=== PATIENT | female | born 1975 | race Caucasian/White ===

== ENCOUNTER → 2016-08-16 | Outpatient (CLI) | payer OTHER ==
--- NOTE | 2016-08-16 16:22 | XR ---
EXAMINATION TYPE: XR knee limited bilateral DATE OF EXAM: 08/16/2016 4:17 PM CLINICAL HISTORY: Bilateral knee pain TECHNIQUE: Three views of the bilateral knees are obtained. COMPARISON: None. FINDINGS: There is no acute fracture/dislocation evident in either knee. The tri-compartment joint spaces appear within normal limits bilaterally. The overlying soft tissue appears unremarkable bilat erally. IMPRESSION: Unremarkable study.
[2016-08-16 16:52] LABS: ALT 31 U/L (9-52); AST 21 U/L (14-36); Alkaline Phosphatase 120 U/L (38-126); Anion Gap 10 mmol/L; Blood Urea Nitrogen 7 mg/dL (7-17); Calcium 9.3 mg/dL (8.4-10.2); Carbon Dioxide 27 mmol/L (22-30); Chloride 107 mmol/L (98-107); Glucose 77 mg/dL (74-99); Non-African American GFR(MDRD) >60 (>60 ml/min/1.73 sqM); Potassium 3.6 mmol/L (3.5-5.1); Sodium 144 mmol/L (137-145); Total Bilirubin 0.4 mg/dL (0.2-1.3); Total Protein 7.1 g/dL (6.3-8.2)
[2016-08-16 16:52] LABS: Blood Urea Nitrogen 7 mg/dL (7-17); Non-African American GFR(MDRD) >60 (>60 ml/min/1.73 sqM)
[2016-08-16 16:55] LABS: Rheumatoid Factor, Qnt <9 IU/mL (<12)
[2016-08-16 16:59] LABS: Basophils # (A) 0.1 k/uL (0-0.2); Basophils % (A) 1 %; CH 30.3; CHCM 33.2; Eosinophils # (A) 0.4 k/uL (0-0.7); Eosinophils % (A) 2 %; HCT 44.5 % (34.0-46.0); HDW 2.31; HGB 14.7 gm/dL (11.4-16.0); Luc # (Auto) 0.19; Luc % (Auto) 1; Lymphocytes % (A) 25 %; MCH 30.2 pg (25.0-35.0); MCHC 32.9 g/dL (31.0-37.0); MCV 91.6 fL (80.0-100.0); Mean Platelet Volume 6.8; Monocytes # (A) 0.7 k/uL (0-1.0); Monocytes % (A) 4 %; Neutrophils # (A) 10.9 k/uL (1.3-7.7); Neutrophils % (A) 67 %; RBC 4.86 m/uL (3.80-5.40); RDW 13.2 % (11.5-15.5); WBC 16.2 k/uL (3.8-10.6); WBC (Perox) 16.54
--- NOTE | 2016-08-16 19:24 | MR ---
EXAMINATION TYPE: MR brain wo con DATE OF EXAM: 08/16/2016 5:48 PM COMPARISON: NONE HISTORY: Migraines, dizziness Multiplanar and multispin-echo imaging of the brain was performed . The ventricles, basal cisterns and sulci overlying the cerebral convexities are within normal limits. There is no evidence for midline shift or mass effect. Acute intracranial hemorrhage or extra-axial collection is not evident. Noted are 5 or 6 small foci of increased signal within the deep white matter of both cerebral hemisph eres too small to characterize. Differential diagnostic possibilities include chronic small vessel is chemia, demyelination, sequela of chronic migraine headaches, Lyme's disease and vasculitis. No acute edema is identified. The paranasal sinuses and mastoid air cells are well-aerated. Polyp or mucous retention cyst right ma xillary sinus. IMPRESSION: Scattered nonspecific foci of increased signal within the deep white matter of both cerebral hemisphe res as noted above.
--- NOTE | 2016-08-16 19:30 | MR ---
EXAMINATION TYPE: MR [place] wo con DATE OF EXAM: 08/16/2016 5:53 PM COMPARISON: 10/08/2011 HISTORY: Migraines, dizziness, neck pain, LBP Multiplanar MultiSpin echo imaging of the cervical spine was performed. Comparison: none C2-C3: No evidence for degenerative disc disease. No disc bulge/herniation or protrusion. No Canal stenosis. Foramina are patent bilaterally. C3-C4: No evidence for degenerative disc disease. No disc bulge/herniation or protrusion. No Canal stenosis. Foramina are patent bilaterally. C4-C5: No evidence for degenerative disc disease. No disc bulge/herniation or protrusion. No Canal stenosis. Foramina are patent bilaterally. C5-C6: No evidence for degenerative disc disease. No disc bulge/herniation or protrusion. No Canal stenosis. Foramina are patent bilaterally. C6-C7: No evidence for degenerative disc disease. No disc bulge/herniation or protrusion. No Canal stenosis. Foramina are patent bilaterally. C7-T1: No evidence for degenerative disc disease. No disc bulge/herniation or protrusion. No Canal stenosis. Foramina are patent bilaterally. Cervical segments are intact. There is normal alignment. Cervical spinal cord is of normal signal. Craniovertebral junction relationships are within normal limits. IMPRESSION: 1. No significant abnormality identified EXAMINATION TYPE: MR aniceto becker con DATE OF EXAM: 08/16/2016 5:53 PM COMPARISON: NONE HISTORY: Migraines, dizziness, neck pain, LBP Multiplanar, MultiSpin echo imaging of the lumbar spine was performed. L1-L2: Normal disc appearance without desiccation. No herniation, protrusion or disc bulging. No ca nal stenosis is present. Foramina are patent bilaterally. L2-L3: Normal disc appearance without desiccation. No herniation, protrusion or disc bulging. No ca nal stenosis is present. Foramina are patent bilaterally. L3-L4: Normal disc appearance without desiccation. No herniation, protrusion or disc bulging. No ca nal stenosis is present. Foramina are patent bilaterally. L4-L5: Moderate disc desiccation noted. Posterior central disc protrusion new from prior examination. Mild effacement ventral thecal sac. No evidence for central stenosis or lateral recess stenosis. L5-S1: Mild disc desiccation. Small right paracentral disc protrusion mildly effaces the ventral thec al sac. No evidence for lateral recess stenosis or central stenosis. Foramina are patent bilaterally. Lumbar segments are intact. No paraspinal masses are identified. Conus medullaris has a normal appe arance. IMPRESSION: 1. Posterocentral disc protrusion at L4-5 disc desiccation noted. 2. Small right paracentral disc protrusion at L5-S1.
== END | disposition home or self-care (01) ==
LOC: RADMRIMAIN 15:52
PROVIDERS: ATTEND Nurse Practitioner Acute Care
DX: M51.27 Other intervertebral disc displacement, lumbosacral region (principal); M54.2 Cervicalgia; R90.82 White matter disease, unspecified; M25.561 Pain in right knee; M25.562 Pain in left knee; M13.0 Polyarthritis, unspecified
CPT/HCPCS: 70551; 72141; 72148; 80053; 82565; 84520; 85025; 86038; 86431

== ENCOUNTER 2016-10-17 15:52 | Emergency (ER) | payer OTHER ==
[2016-10-17] MEDS ORDERED: KETOROLAC 60 MG/2 ML VIAL IM STA (17:04)
[2016-10-17] MEDS ORDERED: ORPHENADRINE 30 MG/ML 2 ML VIAL IM STA (17:04)
--- NOTE | 2016-10-17 17:10 | ED ---
Back Pain HPI - General Chief Complaint: Back Pain/Injury Stated Complaint: back pain Time Seen by Provider: 10/17/16 16:57 Source: patient, RN notes reviewed, old records reviewed Limitations: no limitations - History of Present Illness Initial Comments: 41-year-old female presents the ED chief complaint of left hip pain. Reports that nothing going on for the past 3 days. She denies any specific injury to cause this pain. She reports she does have a history of previous lumbar disc disease. She denies any recent falls. She denies any saddle anesthesias. She reports the pain radiates from her lower back to the left hip. Denies any numbness or tingling down her feet or legs. Denies any posterior calf pain or any pain with flexion and extension of the knee or ankle or foot.Patient denies any recent fever, chills, shortness of breath, chest pain, back pain, abdominal pain, nausea vomiting, numbness or tingling, dysuria or hematuria, constipation or diarrhea, headaches or visual changes, or any other current symptoms - Related Data Home Medications Medication Instructions Recorded Confirmed Furosemide [Lasix] 20 mg PO DAILY 01/05/14 10/17/16 Levothyroxine Sodium [Synthroid] 50 mcg PO QAM 01/05/14 10/17/16 Albuterol Inhaler [Ventolin 1 - 2 puff INHALATION RT-QID PRN 08/20/14 10/17/16 Inhaler] Potassium Chloride [Klor-Con 10] 10 meq PO DAILY 08/20/14 10/17/16 Calcium Carbonate [Calcium] 600 mg PO HS 10/17/16 10/17/16 Cetirizine HCl [Zyrtec] 10 mg PO DAILY 10/17/16 10/17/16 Hydrocodone/Acetaminophen [[place] 1 tab PO Q8H PRN 10/17/16 10/17/16 10-325] Ibuprofen [Motrin] 800 mg PO Q8H PRN 10/17/16 10/17/16 Montelukast [Singulair] 10 mg PO HS 10/17/16 10/17/16 Umeclidinium Brm/Vilanterol Tr 1 puff INHALATION RT-DAILY 10/17/16 10/17/16 [Anoro Ellipta 62.5-25 Mcg INH] buPROPion HCL [Wellbutrin XL] 150 mg PO DAILY 10/17/16 10/17/16 Previous Rx's Medication Instructions Recorded Baclofen [Lioresal] 10 mg PO TID #15 tablet 10/17/16 Ibuprofen [Motrin] 600 mg PO Q8HR PRN #30 tab 10/17/16 Allergies Allergy/AdvReac Type Severity Reaction Status Date / Time nitrofurantoin Allergy Rash/Hives Verified 10/17/16 17:09 [From Macrobid] nitrofurantoin Allergy Rash/Hives Verified 10/17/16 17:09 macrocrystalline [From Macrobid] seasonal allergies AdvReac Unknown Uncoded 10/17/16 16:05 Review of Systems ROS Statement: Those systems with pertinent positive or pertinent negative responses have been documented in the HPI. ROS Other: All systems not noted in ROS Statement are negative. 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 MOS,ENDOMETRIOSIS History of Any Multi-Drug Resistant Organisms: None Reported Past Surgical History: Tubal Ligation Additional Past Surgical History / Comment(s): leep,ENDOSCOPY Past Anesthesia/Blood Transfusion Reactions: Motion Sickness Past Psychological History: Anxiety Smoking Status: Current every day smoker Past Alcohol Use History: Occasional Past Drug Use History: None Reported - Past Family History Father Family Medical History: Congestive Heart Failure (CHF), COPD Additional Family Medical History / Comment(s): from heart attack Mother Family Medical History: Cancer, COPD Additional Family Medical History / Comment(s): breast cancer General Exam - General Exam Comments Initial Comments: 41-year-old female. No acute distress. Limitations: no limitations General appearance: alert, in no apparent distress Head exam: Present: atraumatic, normocephalic, normal inspection Eye exam: Present: normal appearance, PERRL, EOMI. Absent: scleral icterus, conjunctival injection, periorbital swelling ENT exam: Present: normal exam, mucous membranes moist Neck exam: Present: normal inspection. Absent: tenderness, meningismus, lymphadenopathy Respiratory exam: Present: normal lung sounds bilaterally. Absent: respiratory distress, wheezes, rales, rhonchi, stridor Cardiovascular Exam: Present: regular rate, normal rhythm, normal heart sounds. Absent: systolic murmur, diastolic murmur, rubs, gallop, clicks GI/Abdominal exam: Present: soft, normal bowel sounds. Absent: distended, tenderness, guarding, rebound, rigid Extremities exam: Present: normal inspection, full ROM, normal capillary refill. Absent: tenderness, pedal edema, joint swelling, calf tenderness Left Hip exam: Present: normal inspection, tenderness. Absent: full ROM (Patient reports mild pain with full flexion and extension of the hip. She pays the pain is mainly over the lateral aspect. She does have a history of "bursitis". ) Upper Leg exam: Present: normal inspection, full ROM Knee exam: Present: normal inspection, full ROM Lower Leg exam: Present: normal inspection, full ROM Ankle exam: Present: normal inspection, full ROM Back exam: Present: normal inspection Neurological exam: Present: alert, oriented X3, CN II-XII intact Psychiatric exam: Present: normal affect, normal mood Skin exam: Present: warm, dry, intact, normal color. Absent: rash Course Vital Signs 10/17/16 16:03 Temperature 98.1 F Pulse Rate 108 H Respiratory 20 Rate Blood Pressure 148/67 O2 Sat by Pulse 99 Oximetry Medical Decision Making - Medical Decision Making 41-year-old female presents the ED chief complaint of left hip pain. Reports that nothing going on for the past 3 days. She denies any specific injury to cause this pain. She reports she does have a history of previous lumbar disc disease. She denies any recent falls. She denies any saddle anesthesias. She reports the pain radiates from her lower back to the left hip. Patient's x- rays are reviewed and negative for any acute fracture or process. Patient will be discharged with muscle relaxers and anti-inflammatory medication. Discussed that she needs to apply heat and ice over the area. Discussed monitoring for any saddle anesthesias. Patient agrees to treatment plan will comply. Return parameters were discussed. Disposition Clinical Impression: Strain of left hip, Lumbar back sprain Disposition: HOME SELF-CARE Condition: Good Instructions: Acute Low Back Pain (ED), Hip Bursitis (ED) Additional Instructions: Patient advised to apply heat and ice to the above back in the hip. Patient should rest, increase fluids. Patient to take anti-inflammatory and muscle axis as directed. Also take at home pain medication. Return to the emergency department if any alarming signs or symptoms occur. Prescriptions: Baclofen [Lioresal] 10 mg PO TID #15 tablet Ibuprofen [Motrin] 600 mg PO Q8HR PRN #30 tab PRN Reason: Pain Referrals: Zachariah Carlisle MD [Primary Care Provider] - 1-2 days Time of Disposition: 18:02
--- NOTE | 2016-10-17 17:48 | XR ---
EXAMINATION TYPE: XR Hip LT and AP Pelvis DATE OF EXAM: 10/17/2016 CLINICAL HISTORY: pain TECHNIQUE: AP and frogleg views of the left hip are obtained. Single view of the pelvis is also subm itted. COMPARISON: None. FINDINGS: There is no acute fracture/dislocation evident. The joint space appears within normal li mits. The overlying soft tissue appears unremarkable. IMPRESSION: 1. There is no acute fracture or dislocation.ICD 10 NO FRACTURE, INITIAL EVALUATION
--- NOTE | 2016-10-17 17:49 | XR ---
EXAMINATION TYPE: XR lumbar spine 2 or 3V DATE OF EXAM: 10/17/2016 CLINICAL HISTORY: pain TECHNIQUE: Three views of the lumbar spine are submitted. COMPARISON: None. FINDINGS: There are 5 lumbar type vertebral bodies identified. The lumbar spine shows satisfactory alignment w ithout evidence of acute fracture or dislocation. Vertebral body heights are within normal limits. Mild degenerative narrowing L4-5 and L5-S1. Suspect left renal calculus. IMPRESSION: No acute fracture or dislocation is seen in the lumbar spine. ICD 10 NO FRACTURE, INITIAL EVALUATION
[2016-10-17 18:55] VITALS: BP 138/87; PULSE 87; RESP 18; TEMP 97.8
== END 2016-10-17 18:35 | disposition home or self-care (01) ==
LOC: EC 15:52
DX: S76.012A Strain of muscle, fascia and tendon of left hip, initial encounter (principal); S33.5XXA Sprain of ligaments of lumbar spine, initial encounter; J44.9 Chronic obstructive pulmonary disease, unspecified; K21.9 Gastro-esophageal reflux disease without esophagitis; I10 Essential (primary) hypertension; F41.9 Anxiety disorder, unspecified; F17.200 Nicotine dependence, unspecified, uncomplicated; Z79.899 Other long term (current) drug therapy; Z88.8 Allergy status to other drugs, medicaments and biological substances; X58.XXXA Exposure to other specified factors, initial encounter
CPT/HCPCS: 72100; 73502; 99283; 96372 ×2; J2360; J1885

== ENCOUNTER → 2017-03-23 | Outpatient (CLI) | payer OTHER | END | disposition home or self-care (01) | LOC: RADUSMAIN 14:11 | PROVIDERS: ATTEND Family Medicine | DX: E03.9 Hypothyroidism, unspecified (principal); Z53.9 Procedure and treatment not carried out, unspecified reason ==

== ENCOUNTER → 2017-06-14 | Outpatient (CLI) | payer BC ==
[2017-06-20 14:37] LABS: Alternaria Alternata IgG 71.2 mcg/mL (< 13.6); Aspergillus fumigatus IgG Not detected (Not detected); Aureobasidium pullulans IgG 53.5 mcg/mL (< 13.6); Phoma ssp. IgG 89.5 mcg/mL (< 6.6); Saccaharomospora viridis Not detected (Not detected); Saccaharopoly. rectivirgula Not detected (Not detected)
== END | disposition home or self-care (01) ==
LOC: LABWHC1 10:52
PROVIDERS: ATTEND Internal Medicine Critical Care Medicine
DX: R06.02 Shortness of breath (principal)
CPT/HCPCS: 36415; 86001; 86606; 86609

== ENCOUNTER → 2017-06-14 | Outpatient (CLI) | payer BC ==
[~2017-06-14] MED LIST: REGADENOSON 0.4 MG/5 ML SYRINGE IV ONE
--- NOTE | 2017-06-14 11:17 | NM ---
EXAMINATION TYPE: NM stress lexiscan cardiolite DATE OF EXAM: 06/14/2017 COMPARISON: NONE HISTORY: Family history of coronary artery disease, tobacco abuse, and COPD. Abnormal ECG. TECHNIQUE: After the intravenous administration of 10.36 mCi Tc 99m Sestamibi - Cardiolite resting S PECT images acquired 45 minutes post injection. The patient received 0.4mg Lexiscan, 26.3 mCi Tc 99m Sestamibi - Stress images obtained [address] injection FINDINGS: Review of stress and rest SPECT images demonstrates no distinct perfusion abnormality. There is a sma ll mild single segment reversible perfusion defect within the mid segment of the anterior wall. No ot her reversible or fixed defects are seen. Gated analysis shows normal wall motion with an estimated l eft ventricular ejection fraction of 37% at rest and 51 % at stress. TID is calculated at 0.85, withi n normal limits. IMPRESSION: 1. Small mild single segment reversible perfusion defect within the mid segment of the anterior wall of the distribution of the left anterior descending coronary artery indicating reversible cardiac isc hemia. 2. Estimated ejection fraction of 37% at rest and 51 % at stress
--- NOTE | 2017-06-14 11:59 | EST ---
EXERCISE STRESS AGE: 42 SEX: F HT: 5'1" WT: 240 PROTOCOL: Lexiscan Cardiolite Stress Test HEART RATE REST: 91 BLOOD PRESSURE REST: 161/96 MAXIMUM HEART RATE ACHIEVED: 104 MAXIMUM BLOOD PRESSURE: 240/100 85% MPHR: 150 100% MPHR: 176 INDICATIONS: Abnormal EKG. CLINICAL INFORMATION: Patient was given Lexiscan injection over a period of 15 seconds. Peak blood pressure of 240/100 mmHg was noted. Resting EKG shows normal sinus rhythm with normal SD interval and QRS duration and normal ST-T waves. No ST-segment depression suggestive of ischemia was noted. Occasional PVCs were noted. FINAL IMPRESSION: 1. This Lexiscan Cardiolite study is negative for stress-induced ischemia. Occasional premature ventricular contractions were noted. 2. Patient developed high blood pressure during Lexiscan injection. MMODL / IJN: [id number] /
== END | disposition home or self-care (01) ==
LOC: RADNMMAIN 08:19
PROVIDERS: ATTEND Family Medicine
DX: R94.31 Abnormal electrocardiogram [ECG] [EKG] (principal)
CPT/HCPCS: 93017; 78452; A9500; J2785

== ENCOUNTER → 2017-08-15 | Outpatient (CLI) | payer BC ==
[2017-08-15 14:07] VITALS: BP 123/77; PULSE 111; RESP 16; TEMP 98.4; BMI 45.7
--- NOTE | 2017-08-15 15:47 | P.HPBAR ---
Bariatric H&P - History & Physicial H&P Date: 08/15/17 History & Physicial: Visit/CC: Starting Over Patient initial contact: Initial weight: 109.769 kg Initial weight in pounds: 242.00 Height: 5 ft 1 in Initial BMI: 45.7 Last weight: Current weight: 109.769 kg Current weight in pounds: 242.00 Current BMI: 45.7 [facility] body weight (based on NIH guidelines): 47.627 kg Excess body weight loss: 0.0% The patient is a 42 year-old F who presents for Bariatric Assessment. The patient presents today for new patient consultation. She was previously seen in the bandage clinic in 2014. At that time patient felt that surgery was not right for. She has had struggles with weight loss. Her current BMI is 46. Patient wished undergo sleeve gastrectomy. 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,ENDOMETRIOSIS History of Any Multi-Drug Resistant Organisms: None Reported Past Surgical History: Tubal Ligation Additional Past Surgical History / Comment(s): leep,ENDOSCOPY leap procedures x 2 Past Anesthesia/Blood Transfusion Reactions: Motion Sickness Past Psychological History: Anxiety Smoking Status: Current every day smoker Past Alcohol Use History: Occasional Additional Past Alcohol Use History / Comment(s): STARTED SMOKING AT AGE 14 Past Drug Use History: None Reported - Past Family History Father Family Medical History: Congestive Heart Failure (CHF), COPD Additional Family Medical History / Comment(s): from heart attack Mother Family Medical History: Cancer, COPD Additional Family Medical History / Comment(s): breast cancer Surgical - Exam Vital Signs Temp Pulse Resp BP 98.4 F 111 H 16 123/77 08/15/17 14:02 08/15/17 14:02 08/15/17 14:02 08/15/17 14:02 - General well developed, no distress - Eyes PERRL - ENT normal pinna - Neck no masses - Respiratory normal expansion - Cardiovascular Rhythm: regular - Abdomen Abdomen: soft, non tender Bariatric Assessment & Plan Plan: Patient will be seen with BMI of 46. I had a lengthy discussion patient received gastric appearing went over the risks and benefits procedure including conversion O procedure and into the stomach liver spleen vagotomy dysphagia recurrent GERD symptoms as well as gastric staple line leak, perforation obstruction. The patient was scheduled for EGD. Bariatric Checklist Checklist: Plan: Checklist: EGD: 1. Hiatal hernia: 2. H. Pylori: HgbA1c: Vitamin D: Smoking: Current every day smoker Primary care physician referral: dr. alvarez Psychiatry clearance: Cardiology clearance: Sleep study: Diet journal: VTE risk score: VTE risk level: Rehab needs at discharge:
[2017-08-15 22:21] LABS: Hemoglobin A1C 5.5 % (4.0-6.0)
== END | disposition home or self-care (01) ==
LOC: BARWHC3 13:46
PROVIDERS: ATTEND Surgery
DX: E66.01 Morbid (severe) obesity due to excess calories (principal); J44.9 Chronic obstructive pulmonary disease, unspecified; K21.9 Gastro-esophageal reflux disease without esophagitis; I10 Essential (primary) hypertension; G47.33 Obstructive sleep apnea (adult) (pediatric); E07.9 Disorder of thyroid, unspecified; F17.200 Nicotine dependence, unspecified, uncomplicated; F41.9 Anxiety disorder, unspecified; G40.909 Epilepsy, unspecified, not intractable, without status epilepticus; Z68.42 Body mass index [BMI] 45.0-49.9, adult; Z99.89 Dependence on other enabling machines and devices; Z98.51 Tubal ligation status
CPT/HCPCS: 36415; 83036; 93005; 99201

== ENCOUNTER 2017-08-26 09:40 | Day surgery (SDC) | payer BC ==
[2017-08-24 10:03] VITALS: BMI 45.3
[~2017-08-26 09:40] MED LIST changes: +LACTATED RINGERS 1,000 ML IV SCH; +LIDOCAINE 1% 20 ML VIAL (10MG/ML) FOR IV START INTRADERMA PRN; -REGADENOSON 0.4 MG/5 ML SYRINGE IV ONE
[2017-08-26 10:18] VITALS: RESP 18; TEMP 98
[2017-08-26] MEDS ORDERED: LACTATED RINGERS 1,000 ML IV ONE (10:18)
[2017-08-26] MEDS ORDERED: LIDOCAINE 1% INJ 10MG/ML (20 ML MDV) ONE (11:16)
[2017-08-26] MEDS ORDERED: GLYCOPYRROLATE 0.2 MG/ML 2 ML VIAL ONE (11:16)
[2017-08-26] MEDS ORDERED: PROPOFOL 10 MG/ML 20 ML VIAL IV ONE (11:16)
--- NOTE | 2017-08-26 11:20 | P.GSHP ---
History of Present Illness H&P Date: 08/26/17 Chief Complaint: GERD, dysphagia This is a 42-year-old female who presents today for EGD. She's had issues with GERD and dysphagia. Patient is a known history of a hiatal hernia. 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,ENDOMETRIOSIS History of Any Multi-Drug Resistant Organisms: None Reported Past Surgical History: Tubal Ligation Additional Past Surgical History / Comment(s): LEEP PROCEDURE X 2, EGD Past Anesthesia/Blood Transfusion Reactions: Motion Sickness Smoking Status: Current every day smoker - Past Family History Father Family Medical History: Congestive Heart Failure (CHF), COPD Additional Family Medical History / Comment(s): from heart attack Mother Family Medical History: Cancer, COPD Additional Family Medical History / Comment(s): breast cancer Medications and Allergies Home Medications Medication Instructions Recorded Confirmed Type Furosemide [Lasix] 20 mg PO DAILY 01/05/14 08/24/17 History Levothyroxine Sodium [Synthroid] 50 mcg PO QAM 01/05/14 08/24/17 History Albuterol Inhaler [Ventolin 1 - 2 puff INHALATION RT-QID PRN 08/20/14 08/24/17 History Inhaler] Potassium Chloride [Klor-Con 10] 10 meq PO DAILY 08/20/14 08/24/17 History Calcium Carbonate [Calcium] 600 mg PO HS 10/17/16 08/24/17 History Cetirizine HCl [Zyrtec] 10 mg PO DAILY 10/17/16 08/24/17 History Hydrocodone/Acetaminophen [[place] 1 tab PO Q8H PRN 10/17/16 08/24/17 History 10-325] Ibuprofen [Motrin] 800 mg PO Q8H PRN 10/17/16 08/24/17 History Montelukast [Singulair] 10 mg PO HS 10/17/16 08/24/17 History Umeclidinium Brm/Vilanterol Tr 1 puff INHALATION RT-DAILY 10/17/16 08/24/17 History [Anoro Ellipta 62.5-25 Mcg INH] buPROPion HCL [Wellbutrin XL] 150 mg PO DAILY 10/17/16 08/24/17 History Cyclobenzaprine [Flexeril] 10 mg PO DIRECTED 08/15/17 08/24/17 History Famotidine [Pepcid] 20 mg PO DAILY PRN 08/24/17 08/24/17 History Sertraline [Zoloft] 100 mg PO DAILY 08/24/17 08/24/17 History Allergies Allergy/AdvReac Type Severity Reaction Status Date / Time nitrofurantoin Allergy Rash/Hives Verified 08/24/17 09:55 [From Macrobid] nitrofurantoin Allergy Rash/Hives Verified 08/24/17 09:55 macrocrystalline [From Macrobid] seasonal allergies AdvReac Unknown Uncoded 08/24/17 09:55 Surgical - Exam Vital Signs Temp Pulse Resp BP Pulse Ox 98.0 F 91 18 140/93 98 08/26/17 10:16 08/26/17 10:16 08/26/17 10:16 08/26/17 10:16 08/26/17 10:16 - General well developed, no distress - Eyes PERRL - ENT normal pinna - Neck no masses - Respiratory normal expansion - Cardiovascular Rhythm: regular - Abdomen Abdomen: soft, non tender Assessment and Plan Assessment: GERD, dysphagia. We'll perform EGD.
--- NOTE | 2017-08-26 11:29 | P.OP ---
Date of Procedure: 08/26/17 Preoperative Diagnosis: GERD Dysphagia Postoperative Diagnosis: Mild antral gastritis Small hiatal hernia Mild esophagitis Procedure(s) Performed: EGD Anesthesia: MAC Surgeon: Kel Nagel Pathology: other (Antrum, esophagus) Condition: stable Disposition: PACU Description of Procedure: The patient's placed on the endoscopy table in the lateral position. She received IV sedation. The gastroscope some placed oropharynx passed in the esophagus and stomach. Scope was then placed through the pylorus. The first and second portion of the duodenum appeared normal. Scope was then brought back the antrum and this appeared mildly inflamed. A biopsies performed. The scope was then retroflexed and there was a small sliding hiatal hernia. The GE junction was at 39 cm. The distal esophagus appeared minimally inflamed a biopsies performed. The proximal esophagus appeared normal. Scope was withdrawn for patient.
[2017-08-26 11:56] VITALS: BP 149/91; PULSE 98
== END 2017-08-26 12:11 | disposition home or self-care (01) ==
LOC: ORWHC2ENDO 09:40
PROVIDERS: ATTEND Surgery
DX: K29.50 Unspecified chronic gastritis without bleeding (principal); J44.9 Chronic obstructive pulmonary disease, unspecified; E07.9 Disorder of thyroid, unspecified; K21.0 Gastro-esophageal reflux disease with esophagitis; I10 Essential (primary) hypertension; K44.9 Diaphragmatic hernia without obstruction or gangrene; F17.210 Nicotine dependence, cigarettes, uncomplicated; E66.9 Obesity, unspecified; Z79.51 Long term (current) use of inhaled steroids; Z88.1 Allergy status to other antibiotic agents; Z79.899 Other long term (current) drug therapy; Z68.42 Body mass index [BMI] 45.0-49.9, adult
CPT/HCPCS: 81025; 88305; 43239; J2001; J2704

== ENCOUNTER → 2017-09-05 | Outpatient (CLI) | payer BC ==
[2017-09-05 14:17] VITALS: BP 151/78; PULSE 80; RESP 16; TEMP 98.6; BMI 45.3
--- NOTE | 2017-09-05 15:10 | P.HPBAR ---
Bariatric H&P - History & Physicial H&P Date: 09/05/17 History & Physicial: Visit/CC: egd follow-up Patient initial contact: Initial weight: 109.769 kg Initial weight in pounds: 242.00 Height: 5 ft 1 in Initial BMI: 45.7 Last weight: Current weight: 108.862 kg Current weight in pounds: 240.00 Current BMI: 45.3 [place] body weight (based on NIH guidelines): 47.627 kg Excess body weight loss: 1.4% The patient is a 42 year-old F who presents for Bariatric Assessment. Patient presents today for presurgical sleeve gastrectomy consultation. She has approximate 3 months of her family practice visits done. She is morbidly obese with BMI 46. She seems to have a good understanding of the gastric sleeve procedure. 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,ENDOMETRIOSIS History of Any Multi-Drug Resistant Organisms: None Reported Past Surgical History: Tubal Ligation Additional Past Surgical History / Comment(s): LEEP PROCEDURE X 2, EGD Past Anesthesia/Blood Transfusion Reactions: Motion Sickness Past Psychological History: Anxiety Smoking Status: Current every day smoker Past Alcohol Use History: Occasional Additional Past Alcohol Use History / Comment(s): STARTED SMOKING AT AGE 14- SMOKES < 1/2 PPD Past Drug Use History: None Reported - Past Family History Father Family Medical History: Congestive Heart Failure (CHF), COPD Additional Family Medical History / Comment(s): from heart attack Mother Family Medical History: Cancer, COPD Additional Family Medical History / Comment(s): breast cancer Surgical - Exam Vital Signs Temp Pulse Resp BP 98.6 F 80 16 151/78 09/05/17 14:14 09/05/17 14:14 09/05/17 14:14 09/05/17 14:14 - General well developed, no distress - Eyes PERRL - Abdomen Abdomen: soft, non tender Bariatric Assessment & Plan Plan: Morbid obesity with BMI of 46. However over the risks and benefits of the sleeve gastrectomy. I discussed with the possibilities of GERD and dysphagia and gastric staple line disruption, bleeding or scarring. The patient follow- up in 10 weeks. Bariatric Checklist Checklist: Plan: Checklist: EGD: 1. Hiatal hernia: 2. H. Pylori: HgbA1c: Vitamin D: Smoking: Current every day smoker Primary care physician referral: dr. alvarez Psychiatry clearance: Cardiology clearance: Sleep study: Diet journal: VTE risk score: VTE risk level: Rehab needs at discharge:
== END | disposition home or self-care (01) ==
LOC: BARWHC3 12:47
PROVIDERS: ATTEND Surgery
DX: Z48.815 Encounter for surgical aftercare following surgery on the digestive system (principal); F17.200 Nicotine dependence, unspecified, uncomplicated
CPT/HCPCS: 99211

== ENCOUNTER → 2017-11-21 | Outpatient (CLI) | payer BC ==
--- NOTE | 2017-11-23 13:34 | MM ---
Reason for exam: screening (asymptomatic). Last mammogram was performed 6 years and 2 months ago. History: Family history of breast cancer in paternal aunt. Physical Findings: A clinical breast exam by your physician is recommended on an annual basis and results should be correlated with mammographic findings. MG 3D Screening Mammo W/Cad Bilateral CC and MLO view(s) were taken. Prior study comparison: September 09, 2011, bilateral digital screening mammo w/CAD. There are scattered fibroglandular densities. Query some type of retained short metal wire fragment in the posterior right breast on the MLO view. Clinically correlate. ASSESSMENT: Negative, BI-RAD 1 RECOMMENDATION: Routine screening mammogram of both breasts in 1 year.
== END | disposition home or self-care (01) ==
LOC: RADMAMWWP 11:48
PROVIDERS: ATTEND Obstetrics & Gynecology
DX: Z12.31 Encounter for screening mammogram for malignant neoplasm of breast (principal)
CPT/HCPCS: 77063; 77067

== ENCOUNTER 2017-11-24 00:43 | Inpatient (IN) | payer BC ==
[2017-11-24] MEDS ORDERED: SODIUM CHLORIDE 0.9% 1,000 ML IV STA ×2 (02:10→05:13)
[2017-11-24 03:25] LABS: Basophils % (A) 0 %; Eosinophils # (A) 0.2 k/uL (0-0.7); Eosinophils % (A) 1 %; HCT 44.3 % (34.0-46.0); HGB 14.5 gm/dL (11.4-16.0); Lymphocytes % (A) 7 %; MCH 29.3 pg (25.0-35.0); MCHC 32.8 g/dL (31.0-37.0); MCV 89.4 fL (80.0-100.0); Mean Platelet Volume 7.2; Monocytes % (A) 4 %; Neutrophils # (A) 23.3 k/uL (1.3-7.7); Neutrophils % (A) 87 %; Platelet Count 380 k/uL (150-450); RBC 4.96 m/uL (3.80-5.40); RDW 12.7 % (11.5-15.5)
[2017-11-24 03:26] LABS: Appearance,Urine Clear (Clear); Bilirubin,Urine Negative (Negative); Blood,Urine Negative (Negative); Color,Urine Light Yellow; Glucose,Urine (UA) Negative (Negative); Ketones,Urine Negative (Negative); Leukocyte Esterase,Urine Negative (Negative); Nitrite,Urine Negative (Negative); PH, Urine 7.5 (5.0-8.0); Protein,Urine Negative (Negative); Specific Gravity,Urine 1.006 (1.001-1.035); Urobilinogen,Urine <2.0 mg/dL (<2.0)
[2017-11-24 03:30] LABS: Partial Thromboplastin Time 24.3 sec (22.0-30.0); Prothrombin Time 9.9 sec (9.0-12.0)
[2017-11-24 03:32] LABS: WBC 26.7 k/uL (3.8-10.6)
--- NOTE | 2017-11-24 03:34 | XR ---
EXAMINATION TYPE: XR chest 2V DATE OF EXAM: 11/24/2017 COMPARISON: 08/02/2017 HISTORY: Difficulty breathing TECHNIQUE: Frontal and lateral views of the chest are obtained. FINDINGS: There are patchy bilateral pulmonary infiltrates. Heart size is normal. There is no heart failure. There is no pleural effusion. IMPRESSION: Bilateral pulmonary infiltrates compared to last exam consistent with pneumonia. Normal heart.
[2017-11-24 03:36] LABS: ALT 32 U/L (9-52); AST 27 U/L (14-36); Albumin 3.9 g/dL (3.5-5.0); Alkaline Phosphatase 105 U/L (38-126); Anion Gap 9 mmol/L; Blood Urea Nitrogen 6 mg/dL (7-17); Calcium 9.5 mg/dL (8.4-10.2); Carbon Dioxide 26 mmol/L (22-30); Chloride 110 mmol/L (98-107); Glucose 123 mg/dL (74-99); Sodium 145 mmol/L (137-145); Total Bilirubin 0.4 mg/dL (0.2-1.3); Total Protein 6.8 g/dL (6.3-8.2)
[2017-11-24 03:38] LABS: Creatine Kinase 59 U/L (30-135)
[2017-11-24 03:51] LABS: Troponin I <0.012 ng/mL (0.000-0.034)
[2017-11-24] MEDS ORDERED: MORPHINE SULFATE 4 MG/ML SYRINGE IV PRN (04:02)
[2017-11-24] MEDS ORDERED: ONDANSETRON 4 MG/2 ML VIAL IVP PRN (04:02)
[2017-11-24] MEDS ORDERED: NALOXONE 0.4 MG/ML 1 ML VIAL IV PRN (04:02)
[2017-11-24] MEDS ORDERED: IBUPROFEN 400 MG TAB PO PRN (04:02)
[2017-11-24] MEDS ORDERED: ACETAMINOPHEN TAB 325 MG TAB PO PRN (04:02)
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
[2017-11-24 06:52] VITALS: BMI 41.6
[2017-11-24] MEDS: SODIUM CHLORIDE 0.9% 1,000 ML IV SCH ×2 (06:55→15:32)
[2017-11-24] MEDS ORDERED: AZITHROMYCIN 500 MG in DEXTROSE 5% IN WATER 250 ML IVPB SCH ×4 (09:00)
[2017-11-24] MEDS ORDERED: cefTRIAXone IN SWFI 2,000 MG/20 ML SYRINGE IVP SCH (09:00)
[2017-11-24] MEDS: cefTRIAXone IN SWFI 2,000 MG/20 ML SYRINGE IVP SCH (09:05)
[2017-11-24] MEDS ORDERED: FLUTICASONE 50MCG/SPRAY NASAL 16GM EA NOSTRIL PRN (11:09)
[2017-11-24] MEDS ORDERED: ALBUTEROL NEBULIZED 2.5 MG/3 ML INHALATION PRN (11:09)
[2017-11-24] MEDS: IPRATROPIUM-ALBUTEROL 3 ML NEB INHALATION SCH ×3 (11:51→20:50)
[2017-11-24] MEDS: NYSTATIN 100,000 UNIT/GM POWD 15 GM TOPICAL SCH ×2 (12:09→20:48)
[2017-11-24] MEDS: MONTELUKAST 10 MG TAB PO SCH (12:09)
[2017-11-24] MEDS: FUROSEMIDE 20 MG TAB PO SCH (12:09)
[2017-11-24] MEDS: buPROPion SR 150 MG TABLET.ER PO SCH ×2 (12:09→20:48)
[2017-11-24] MEDS: LEVOTHYROXINE 50 MCG TAB PO SCH (12:09)
[2017-11-24] MEDS: SERTRALINE 50 MG TAB PO SCH ×2 (12:09→20:48)
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
[2017-11-24] MEDS: ENOXAPARIN 40 MG/0.4 ML SYRINGE SQ SCH (17:18)
[2017-11-24] MEDS: methylPREDNISolone SOD SUCCI 40 MG/ML 1 ML VIAL IV SCH (17:18)
[2017-11-24] MEDS: HYDROcodone/APAP 10-325MG 1 EACH TAB PO PRN (19:46)
[2017-11-24] MEDS: CALCIUM CARBONATE 500 MG CHEWABLE PO SCH (20:48)
[2017-11-25] MEDS: methylPREDNISolone SOD SUCCI 40 MG/ML 1 ML VIAL IV SCH ×3 (00:55→15:35)
[2017-11-25] MEDS: SODIUM CHLORIDE 0.9% 1,000 ML IV SCH ×3 (00:56→21:38)
[2017-11-25] MEDS: IPRATROPIUM-ALBUTEROL 3 ML NEB INHALATION SCH ×6 (03:32→18:52)
[2017-11-25] MEDS: HYDROcodone/APAP 10-325MG 1 EACH TAB PO PRN ×2 (05:34→16:39)
[2017-11-25] MEDS: LEVOTHYROXINE 50 MCG TAB PO SCH (06:57)
[2017-11-25 08:22] LABS: Basophils % (A) 0 %; Eosinophils % (A) 0 %; HCT 41.2 % (34.0-46.0); HGB 13.7 gm/dL (11.4-16.0); Lymphocytes # (A) 1.1 k/uL (1.0-4.8); Lymphocytes % (A) 6 %; MCHC 33.2 g/dL (31.0-37.0); MCV 90.3 fL (80.0-100.0); Mean Platelet Volume 7.1; Monocytes # (A) 0.5 k/uL (0-1.0); Monocytes % (A) 3 %; Neutrophils # (A) 15.7 k/uL (1.3-7.7); Neutrophils % (A) 91 %; Platelet Count 387 k/uL (150-450); RBC 4.57 m/uL (3.80-5.40); RDW 12.8 % (11.5-15.5); WBC 17.4 k/uL (3.8-10.6)
[2017-11-25] MEDS: ENOXAPARIN 40 MG/0.4 ML SYRINGE SQ SCH (08:32)
[2017-11-25] MEDS: cefTRIAXone IN SWFI 2,000 MG/20 ML SYRINGE IVP SCH (08:32)
[2017-11-25 08:33] LABS: Anion Gap 8 mmol/L; Blood Urea Nitrogen 8 mg/dL (7-17); Calcium 8.8 mg/dL (8.4-10.2); Carbon Dioxide 25 mmol/L (22-30); Chloride 108 mmol/L (98-107); Glucose 169 mg/dL (74-99); Potassium 3.9 mmol/L (3.5-5.1); Sodium 141 mmol/L (137-145)
[2017-11-25] MEDS: FUROSEMIDE 20 MG TAB PO SCH (08:33)
[2017-11-25] MEDS: AZITHROMYCIN 500 MG TAB PO SCH (08:33)
[2017-11-25] MEDS: buPROPion SR 150 MG TABLET.ER PO SCH ×2 (08:33→21:34)
[2017-11-25] MEDS: SERTRALINE 50 MG TAB PO SCH ×2 (08:33→21:34)
[2017-11-25] MEDS: MONTELUKAST 10 MG TAB PO SCH (08:33)
[2017-11-25] MEDS: NYSTATIN 100,000 UNIT/GM POWD 15 GM TOPICAL SCH ×2 (08:34→21:38)
--- NOTE | 2017-11-25 14:27 | PN ---
PROGRESS NOTE DATE OF SERVICE: 11/25/2017. PRESENTING COMPLAINT: Short of breath. INTERVAL HISTORY: The patient presents with pneumonia and COPD exacerbation. Still feeling a bit tired in the chest. Minimal cough. No sputum. Did tolerate a diet. Up to the bathroom. REVIEW OF SYSTEMS: Done for constitutional, cardiovascular, GI, pulmonary; relevant findings as above. MEDICATIONS: Current medications are reviewed that include DuoNeb and IV Solu-Medrol. PHYSICAL EXAMINATION: On examination, temperature 97.6 pulse 89, respirations 16, blood pressure 137/74, pulse ox 93% on room air. GENERAL APPEARANCE: Sitting up, awake. EYES: Pupils equal. Conjunctivae normal. HENT: External appearance of nose and ears normal. Oral cavity normal. NECK: JVD not raised. Mass not palpable. RESPIRATORY: Effort increased. LUNGS: Decreased breath sounds. Prolonged expiration. CARDIOVASCULAR: First and second sounds normal. No edema. ABDOMEN: Soft, nontender. Liver and spleen not palpable. PSYCHIATRY: Alert and oriented x3. Mood and affect normal. INVESTIGATIONS: White count 17.4, hemoglobin 13.7, potassium 3.9. ASSESSMENT: 1. Acute bilateral pneumonia suspect gram-negative organism with elevated white count that is coming down. 2. Acute chronic obstructive pulmonary disease exacerbation in an ex-smoker, slow to respond. 3. Morbid obesity, body mass index 41.7. 4. Gastroesophageal reflux disease. 5. Essential hypertension. 6. Obstructive sleep apnea, pending surgery as an outpatient. 7. Hypothyroid. PLAN: Continue the current medication and treatment plan. Will add inhaled steroids. Other medications to continue. Care was discussed with the patient. MMODL / IJN: [id number] /
[2017-11-25] MEDS: BUDESONIDE 1 MG/2 ML NEBU INHALATION SCH ×2 (15:27→18:52)
[2017-11-25] MEDS: NYSTATIN 100,000 UNIT/ML SUSP 500,000 UNIT/5 ML CUP PO SCH ×2 (15:35→21:34)
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
[2017-11-25] MEDS: CALCIUM CARBONATE 500 MG CHEWABLE PO SCH (21:35)
[2017-11-25] MEDS: ALPRAZolam 0.5 MG TAB PO PRN (21:43)
[2017-11-26] MEDS: IPRATROPIUM-ALBUTEROL 3 ML NEB INHALATION PRN ×2 (00:01→21:49)
[2017-11-26] MEDS: HYDROcodone/APAP 10-325MG 1 EACH TAB PO PRN ×4 (00:15→22:23)
[2017-11-26] MEDS: methylPREDNISolone SOD SUCCI 40 MG/ML 1 ML VIAL IV SCH ×3 (00:17→15:32)
[2017-11-26] MEDS: LEVOTHYROXINE 50 MCG TAB PO SCH (06:36)
[2017-11-26] MEDS: SODIUM CHLORIDE 0.9% 1,000 ML IV SCH ×3 (06:53→21:23)
[2017-11-26] MEDS: NYSTATIN 100,000 UNIT/ML SUSP 500,000 UNIT/5 ML CUP PO SCH ×4 (08:01→21:21)
[2017-11-26] MEDS: ENOXAPARIN 40 MG/0.4 ML SYRINGE SQ SCH (08:01)
[2017-11-26] MEDS: MONTELUKAST 10 MG TAB PO SCH (08:01)
[2017-11-26] MEDS: AZITHROMYCIN 500 MG TAB PO SCH (08:01)
[2017-11-26] MEDS: cefTRIAXone IN SWFI 2,000 MG/20 ML SYRINGE IVP SCH (08:01)
[2017-11-26] MEDS: SERTRALINE 50 MG TAB PO SCH ×2 (08:01→21:20)
[2017-11-26] MEDS: FUROSEMIDE 20 MG TAB PO SCH (08:01)
[2017-11-26] MEDS: buPROPion SR 150 MG TABLET.ER PO SCH ×2 (08:01→21:20)
[2017-11-26] MEDS: NYSTATIN 100,000 UNIT/GM POWD 15 GM TOPICAL SCH ×2 (08:05→21:22)
[2017-11-26] MEDS: BUDESONIDE 1 MG/2 ML NEBU INHALATION SCH ×2 (08:10→19:04)
[2017-11-26] MEDS: IPRATROPIUM-ALBUTEROL 3 ML NEB INHALATION SCH ×4 (08:11→19:04)
[2017-11-26 08:14] LABS: Anion Gap 8 mmol/L; Blood Urea Nitrogen 9 mg/dL (7-17); Carbon Dioxide 24 mmol/L (22-30); Chloride 110 mmol/L (98-107); Glucose 131 mg/dL (74-99); Potassium 4.1 mmol/L (3.5-5.1); Sodium 142 mmol/L (137-145)
[2017-11-26] MEDS ORDERED: FUROSEMIDE 10 MG/ML 4 ML VIAL IV STA (12:21)
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
[2017-11-26] MEDS ORDERED: ACETAMINOPHEN TAB 325 MG TAB PO PRN (15:02)
[2017-11-26] MEDS: NICOTINE 14MG/24HR PATCH TRANSDERM SCH (15:32)
[2017-11-26] MEDS: CALCIUM CARBONATE 500 MG CHEWABLE PO SCH (21:20)
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
[2017-11-27] MEDS: methylPREDNISolone SOD SUCCI 40 MG/ML 1 ML VIAL IV SCH ×4 (00:13→23:59)
[2017-11-27] MEDS: IPRATROPIUM-ALBUTEROL 3 ML NEB INHALATION PRN ×2 (02:38→06:02)
[2017-11-27] MEDS: SODIUM CHLORIDE 0.9% 1,000 ML IV SCH (05:51)
[2017-11-27] MEDS: ALPRAZolam 0.5 MG TAB PO PRN ×3 (05:51→23:59)
[2017-11-27] MEDS: LEVOTHYROXINE 50 MCG TAB PO SCH (05:51)
[2017-11-27 07:15] LABS: Anion Gap 7 mmol/L; Calcium 8.6 mg/dL (8.4-10.2); Carbon Dioxide 27 mmol/L (22-30); Chloride 108 mmol/L (98-107); Glucose 156 mg/dL (74-99); Sodium 142 mmol/L (137-145)
[2017-11-27 07:20] LABS: Blood Urea Nitrogen 10 mg/dL (7-17); Potassium 3.9 mmol/L (3.5-5.1)
--- NOTE | 2017-11-27 07:27 | XR ---
EXAMINATION TYPE: XR chest 2V DATE OF EXAM: 11/27/2017 HISTORY: Pneumonia. REFERENCE: Previous study dated 11/24/2017. FINDINGS: Heart size is mildly prominent. There are worsening bilateral infiltrates. This may represe nt pneumonia or confluent edema. Pleural spaces appear clear. IMPRESSION: 1. BORDERLINE CARDIOMEGALY. 2. WORSENING BILATERAL INFILTRATES WHICH MAY REPRESENT PNEUMONIA OR CONFLUENT EDEMA.
[2017-11-27] MEDS: ENOXAPARIN 40 MG/0.4 ML SYRINGE SQ SCH (07:57)
[2017-11-27] MEDS: AZITHROMYCIN 500 MG TAB PO SCH (07:57)
[2017-11-27] MEDS: buPROPion SR 150 MG TABLET.ER PO SCH ×2 (07:57→20:57)
[2017-11-27] MEDS: MONTELUKAST 10 MG TAB PO SCH (07:58)
[2017-11-27] MEDS: FUROSEMIDE 20 MG TAB PO SCH (07:58)
[2017-11-27] MEDS: NICOTINE 14MG/24HR PATCH TRANSDERM SCH (07:58)
[2017-11-27] MEDS: SERTRALINE 50 MG TAB PO SCH ×2 (07:59→20:56)
[2017-11-27] MEDS: NYSTATIN 100,000 UNIT/ML SUSP 500,000 UNIT/5 ML CUP PO SCH ×4 (07:59→20:57)
[2017-11-27] MEDS: HYDROcodone/APAP 10-325MG 1 EACH TAB PO PRN ×3 (07:59→23:58)
[2017-11-27] MEDS: NYSTATIN 100,000 UNIT/GM POWD 15 GM TOPICAL SCH ×2 (07:59→20:58)
[2017-11-27] MEDS: cefTRIAXone IN SWFI 2,000 MG/20 ML SYRINGE IVP SCH (08:02)
[2017-11-27] MEDS: IPRATROPIUM-ALBUTEROL 3 ML NEB INHALATION SCH ×4 (08:10→20:44)
[2017-11-27] MEDS: BUDESONIDE 1 MG/2 ML NEBU INHALATION SCH ×2 (08:10→20:43)
[2017-11-27] MEDS ORDERED: FUROSEMIDE 10 MG/ML 4 ML VIAL IV STA (08:10)
[2017-11-27 11:19] LABS: Basophils # (A) 0.1 k/uL (0-0.2); Basophils % (A) 0 %; Eosinophils # (A) 0.2 k/uL (0-0.7); Eosinophils % (A) 1 %; HCT 42.6 % (34.0-46.0); HGB 13.3 gm/dL (11.4-16.0); Lymphocytes % (A) 3 %; MCHC 31.2 g/dL (31.0-37.0); Mean Platelet Volume 8.3; Monocytes # (A) 1.1 k/uL (0-1.0); Monocytes % (A) 4 %; Neutrophils % (A) 92 %; Platelet Count 386 k/uL (150-450); RBC 4.58 m/uL (3.80-5.40); RDW 12.9 % (11.5-15.5)
[2017-11-27 11:24] LABS: WBC 29.4 k/uL (3.8-10.6)
[2017-11-27] MEDS: PIPERACILLIN-TAZOBACTAM 3.375 GM in DEXTROSE/WATER 1 50ML.BAG IVPB SCH ×2 (12:27→20:58)
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
[2017-11-27] MEDS ORDERED: VANCOMYCIN IV PER PHARMACY 1 EACH MISC MISCELLANE PRN (13:11)
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
[2017-11-27] MEDS ORDERED: VANCOMYCIN 2,000 MG in SODIUM CHLORIDE 0.9% 500 ML IVPB ONE (14:00)
[2017-11-27] MEDS: LEVOFLOXACIN 750MG-D5W PMX 750 MG in DEXTROSE/WATER 1 150ML.BAG IVPB SCH (14:09)
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
[2017-11-27] MEDS: CALCIUM CARBONATE 500 MG CHEWABLE PO SCH (20:57)
[2017-11-27] MEDS: FAMOTIDINE 20 MG TAB PO PRN (20:57)
[2017-11-28] MEDS: IPRATROPIUM-ALBUTEROL 3 ML NEB INHALATION PRN ×2 (00:09→03:08)
[2017-11-28] MEDS: VANCOMYCIN 1,500 MG in SODIUM CHLORIDE 0.9% 250 ML IVPB SCH ×3 (00:18→16:37)
[2017-11-28] MEDS: PIPERACILLIN-TAZOBACTAM 3.375 GM in DEXTROSE/WATER 1 50ML.BAG IVPB SCH ×3 (03:23→19:55)
[2017-11-28] MEDS: SODIUM CHLORIDE 0.9% 1,000 ML IV SCH (03:24)
[2017-11-28] MEDS: LEVOTHYROXINE 50 MCG TAB PO SCH (05:37)
[2017-11-28 07:19] LABS: Basophils % (A) 0 %; Eosinophils # (A) 0.3 k/uL (0-0.7); Eosinophils % (A) 1 %; HCT 39.9 % (34.0-46.0); HGB 13.2 gm/dL (11.4-16.0); Lymphocytes # (A) 0.9 k/uL (1.0-4.8); Lymphocytes % (A) 4 %; MCH 29.8 pg (25.0-35.0); MCV 90.2 fL (80.0-100.0); Mean Platelet Volume 6.9; Monocytes # (A) 0.8 k/uL (0-1.0); Monocytes % (A) 3 %; Neutrophils # (A) 22.1 k/uL (1.3-7.7); Neutrophils % (A) 91 %; Platelet Count 385 k/uL (150-450); RBC 4.42 m/uL (3.80-5.40); RDW 12.9 % (11.5-15.5); WBC 24.3 k/uL (3.8-10.6)
[2017-11-28 07:36] LABS: Anion Gap 6 mmol/L; Blood Urea Nitrogen 11 mg/dL (7-17); Calcium 8.6 mg/dL (8.4-10.2); Carbon Dioxide 29 mmol/L (22-30); Chloride 106 mmol/L (98-107); Glucose 166 mg/dL (74-99); Potassium 3.8 mmol/L (3.5-5.1); Sodium 141 mmol/L (137-145)
[2017-11-28] MEDS: NYSTATIN 100,000 UNIT/ML SUSP 500,000 UNIT/5 ML CUP PO SCH ×4 (07:57→21:30)
[2017-11-28] MEDS: NYSTATIN 100,000 UNIT/GM POWD 15 GM TOPICAL SCH ×2 (07:57→21:31)
[2017-11-28] MEDS: buPROPion SR 150 MG TABLET.ER PO SCH ×2 (07:58→21:31)
[2017-11-28] MEDS: methylPREDNISolone SOD SUCCI 40 MG/ML 1 ML VIAL IV SCH ×2 (07:58→16:37)
[2017-11-28] MEDS: NICOTINE 14MG/24HR PATCH TRANSDERM SCH (07:58)
[2017-11-28] MEDS: SERTRALINE 50 MG TAB PO SCH ×2 (07:59→21:31)
[2017-11-28] MEDS: ENOXAPARIN 40 MG/0.4 ML SYRINGE SQ SCH (07:59)
[2017-11-28] MEDS: FAMOTIDINE 20 MG TAB PO PRN (07:59)
[2017-11-28] MEDS: HYDROcodone/APAP 10-325MG 1 EACH TAB PO PRN ×2 (08:00→19:53)
[2017-11-28] MEDS: ALPRAZolam 0.5 MG TAB PO PRN (08:00)
[2017-11-28] MEDS: MONTELUKAST 10 MG TAB PO SCH (08:01)
[2017-11-28] MEDS: FUROSEMIDE 20 MG TAB PO SCH (08:01)
[2017-11-28] MEDS: IPRATROPIUM-ALBUTEROL 3 ML NEB INHALATION SCH ×4 (08:58→20:05)
[2017-11-28] MEDS: BUDESONIDE 1 MG/2 ML NEBU INHALATION SCH ×2 (08:58→20:05)
--- NOTE | 2017-11-28 09:10 | XR ---
EXAMINATION TYPE: XR chest 1V DATE OF EXAM: 11/28/2017 COMPARISON: 11/27/2017 HISTORY: Shortness of breath TECHNIQUE: Single frontal view of the chest is obtained. FINDINGS: There are persistent bibasilar opacities although there is improved interstitial pulmonary edema. There is blunting of the costophrenic angles and obscuration of the hemidiaphragms, right gre ater than left. Cardiac silhouette is enlarged but stable from the prior. No sizable pneumothorax. Os seous structures are grossly intact. IMPRESSION: 1. Persistent bibasilar airspace disease that again may represent multifocal pneumonia or confluent p ulmonary edema. 2. Improved interstitial pulmonary edema and pulmonary vascular congestion.
--- NOTE | 2017-11-28 10:29 | ECHOF ---
Referral Reason:Rule out heart disease MEASUREMENTS -------- HEIGHT: 154.9 cm WEIGHT: 99.8 kg BP: 135/94 RVIDd: 2.9 cm (< 3.3) IVSd: 1.2 cm (0.6 - 1.1) LVIDd: 4.6 cm (3.9 - 5.3) LVPWd: 1.4 cm (0.6 - 1.1) IVSs: 1.6 cm LVIDs: 3.2 cm LVPWs: 1.7 cm Ao Diam: 2.9 cm (2.0 - 3.7) AV Cusp: 2.0 cm (1.5 - 2.6) LA Diam: 3.4 cm (2.7 - 3.8) MV EXCURSION: 15.271 mm (> 18.000) MV EF SLOPE: 61 mm/s (70 - 150) EPSS: 0.3 cm MV E Thomas: 1.11 m/s MV DecT: 154 ms MV A Thomas: 1.12 m/s MV E/A Ratio: 0.99 RAP: 5.00 mmHg RVSP: 21.28 mmHg FINDINGS -------- Sinus rhythm. This was a technically adequate study. The left ventricular size is normal. There is mild concentric left ventricular hypertrophy. Overa ll left ventricular systolic function is low-normal with, an EF between 50 - 55 %. The right ventricle is normal in size and function. The left atrium is normal in size. The right atrium is normal in size. The aortic valve is trileaflet, and appears structurally normal. No aortic stenosis or regurgitation. There is trace mitral regurgitation. Trace tricuspid regurgitation present. The right ventricular systolic pressure, as measured by Dopp ler, is 21.28mmHg. Pulmonic valve appears structurally normal. The aortic root size is normal. Normal inferior vena cava with normal inspiratory collapse consistent with estimated right atrial pre ssure of 5 mmHg. The pericardium is normal. CONCLUSIONS -------- 1. Sinus rhythm. 2. This was a technically adequate study. 3. The left ventricular size is normal. 4. There is mild concentric left ventricular hypertrophy. 5. Overall left ventricular systolic function is low-normal with, an EF between 50 - 55 %. 6. The right ventricle is normal in size and function. 7. The left atrium is normal in size. 8. The right atrium is normal in size. 9. The aortic valve is trileaflet, and appears structurally normal. No aortic stenosis or regurgitati on. 10. There is trace mitral regurgitation. 11. Trace tricuspid regurgitation present. 12. The right ventricular systolic pressure, as measured by Doppler, is 21.28mmHg. 13. Pulmonic valve appears structurally normal. 14. The aortic root size is normal. 15. Normal inferior vena cava with normal inspiratory collapse consistent with estimated right atrial pressure of 5 mmHg. 16. The pericardium is normal. FIELD AUDITOR: Zoe Russell RDCS
--- NOTE | 2017-11-28 12:06 | P.PN ---
Subjective Progress Note Date: 11/28/17 Principal diagnosis: Pneumonia Progress note dated 11/28/2017 42-year-old female admitted with a diagnosis of acute bibasal pneumonia and hypoxemic respiratory failure. The patient x-ray shows diffuse bibasilar infiltrates. It may be a combination of infection and fluid. Her story seems to fit better for pneumonia and then fluid overload. Anyway, the patient's really not showing much improvement. Just a bit better. 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 I did tell the patient today that if she's not improved over the next couple of days, we might BE inclined to go ahead and do bronchoscopy with airway secretion removal and sampling. She has been seen by infectious disease. Her antibiotics have been broadened. Some additional testing was done. Her primary complaint is that of shortness of breath. She does have a bit of a cough not producing much or any phlegm at this time. Objective - Vital Signs Vital signs: Vital Signs Temp 99.9 F H 11/28/17 07:00 Pulse 93 11/28/17 11:30 Resp 24 11/28/17 11:30 BP 134/68 11/28/17 07:00 Pulse Ox 92 L 11/28/17 11:30 Intake & Output 11/27/17 11/28/17 11/28/17 18:59 06:59 18:59 Intake Total 1200 Output Total 3325 1300 Balance -3325 -100 Intake: Oral 1200 Output: Urine 3325 1300 Other: # Voids 1 - Exam No acute distress, oriented 3. Supplemental oxygen in place. HEENT examination is grossly unremarkable. Mucous membranes are moist. No oral lesions. Neck supple. Full range of motion. No adenopathy thyromegaly or neck vein distention. Cardiovascular examination reveals regular rhythm rate. S1-S2 normal. No S3 or S4. No discernible murmur noted. Lungs reveal coarse bilateral breath sounds. Breath sounds equal bilaterally. Crackles are appreciated. No wheezes. Abdomen soft bowel sounds are heard. No masses or tenderness. Extremities are intact. No cyanosis clubbing or edema. Skin is without rash or lesion. Neurologic examination is brief but nonfocal. - Labs CBC & Chem 7: 11/28/17 07:09 11/28/17 07:09 Labs: Abnormal Lab Results - Last 24 Hours (Table) 11/28/17 11/28/17 Range/Units 07:09 07:09 WBC 24.3 H (3.8-10.6) k/uL Neutrophils # 22.1 H (1.3-7.7) k/uL Lymphocytes # 0.9 L (1.0-4.8) k/uL Creatinine 0.48 L (0.52-1.04) mg/dL Glucose 166 H (74-99) mg/dL Microbiology - Last 24 Hours (Table) 11/24/17 05:33 Blood Culture - Preliminary Blood No Growth after 96 hours 11/27/17 12:30 Gram Stain - Preliminary Sputum Assessment and Plan Assessment: Assessment Acute bilateral pneumonia with hypoxemic respiratory failure Possible fluid overload, thought to be less likely COPD secondary to chronic tobacco use 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 She has been seen by infectious disease. If she does not show improvement, towards the mid to end of this week , she will likely need bronchoscopy. This will serve to remove any secretions or down in her lungs and also provide sampling for the laboratory. Legionella urinary antigen is pending. Mycoplasma studies are pending. Additional recommendations suggestions are forthcoming. Time with Patient: Less than 30
[2017-11-28] MEDS: LEVOFLOXACIN 750MG-D5W PMX 750 MG in DEXTROSE/WATER 1 150ML.BAG IVPB SCH (14:48)
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
[2017-11-28] MEDS: CALCIUM CARBONATE 500 MG CHEWABLE PO SCH (21:30)
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
[2017-11-28] MEDS ORDERED: VANCOMYCIN TROUGH DUE 1 EACH MISC MISCELLANE ONE (23:00)
[2017-11-29] MEDS: VANCOMYCIN 1,500 MG in SODIUM CHLORIDE 0.9% 250 ML IVPB SCH ×3 (00:03→16:20)
[2017-11-29] MEDS: methylPREDNISolone SOD SUCCI 40 MG/ML 1 ML VIAL IV SCH ×3 (00:03→17:31)
[2017-11-29] MEDS: SODIUM CHLORIDE 0.9% 1,000 ML IV SCH ×2 (00:07→23:56)
[2017-11-29] MEDS: IPRATROPIUM-ALBUTEROL 3 ML NEB INHALATION PRN ×2 (00:37→04:12)
[2017-11-29] MEDS: PIPERACILLIN-TAZOBACTAM 3.375 GM in DEXTROSE/WATER 1 50ML.BAG IVPB SCH ×3 (03:37→19:40)
[2017-11-29] MEDS: HYDROcodone/APAP 10-325MG 1 EACH TAB PO PRN ×4 (03:45→22:30)
[2017-11-29] MEDS: ALPRAZolam 0.5 MG TAB PO PRN ×2 (03:45→21:36)
[2017-11-29] MEDS: LEVOTHYROXINE 50 MCG TAB PO SCH (05:54)
[2017-11-29 06:55] LABS: Basophils # (A) 0.1 k/uL (0-0.2); Basophils % (A) 0 %; Eosinophils # (A) 0.3 k/uL (0-0.7); Eosinophils % (A) 1 %; HCT 40.2 % (34.0-46.0); HGB 12.8 gm/dL (11.4-16.0); Lymphocytes % (A) 4 %; MCH 28.9 pg (25.0-35.0); MCHC 31.8 g/dL (31.0-37.0); MCV 90.8 fL (80.0-100.0); Mean Platelet Volume 6.6; Monocytes # (A) 0.8 k/uL (0-1.0); Monocytes % (A) 3 %; Neutrophils # (A) 20.9 k/uL (1.3-7.7); Neutrophils % (A) 91 %; Platelet Count 378 k/uL (150-450); RBC 4.43 m/uL (3.80-5.40); RDW 12.6 % (11.5-15.5); WBC 23.1 k/uL (3.8-10.6)
[2017-11-29] MEDS: BUDESONIDE 1 MG/2 ML NEBU INHALATION SCH ×2 (07:12→20:57)
[2017-11-29] MEDS: IPRATROPIUM-ALBUTEROL 3 ML NEB INHALATION SCH ×4 (07:12→20:57)
[2017-11-29] MEDS: buPROPion SR 150 MG TABLET.ER PO SCH ×2 (08:33→21:05)
[2017-11-29] MEDS: FAMOTIDINE 20 MG TAB PO PRN (08:33)
[2017-11-29] MEDS: ENOXAPARIN 40 MG/0.4 ML SYRINGE SQ SCH (08:33)
[2017-11-29] MEDS: NYSTATIN 100,000 UNIT/ML SUSP 500,000 UNIT/5 ML CUP PO SCH ×4 (08:34→21:04)
[2017-11-29] MEDS: NICOTINE 14MG/24HR PATCH TRANSDERM SCH (08:34)
[2017-11-29] MEDS: FUROSEMIDE 20 MG TAB PO SCH (08:34)
[2017-11-29] MEDS: MONTELUKAST 10 MG TAB PO SCH (08:34)
[2017-11-29] MEDS: NYSTATIN 100,000 UNIT/GM POWD 15 GM TOPICAL SCH ×2 (08:35→21:05)
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
[2017-11-29] MEDS: SERTRALINE 50 MG TAB PO SCH ×2 (10:11→21:04)
[2017-11-29] MEDS: LEVOFLOXACIN 750MG-D5W PMX 750 MG in DEXTROSE/WATER 1 150ML.BAG IVPB SCH (14:51)
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
[2017-11-29] MEDS: CALCIUM CARBONATE 500 MG CHEWABLE PO SCH (21:05)
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
[2017-11-30] MEDS: VANCOMYCIN 1,500 MG in SODIUM CHLORIDE 0.9% 250 ML IVPB SCH ×3 (00:07→16:45)
[2017-11-30] MEDS: methylPREDNISolone SOD SUCCI 40 MG/ML 1 ML VIAL IV SCH ×3 (00:07→16:45)
[2017-11-30] MEDS: PIPERACILLIN-TAZOBACTAM 3.375 GM in DEXTROSE/WATER 1 50ML.BAG IVPB SCH ×3 (03:29→20:24)
[2017-11-30] MEDS: IPRATROPIUM-ALBUTEROL 3 ML NEB INHALATION PRN (03:48)
[2017-11-30] MEDS: ALPRAZolam 0.5 MG TAB PO PRN (04:26)
[2017-11-30] MEDS: HYDROcodone/APAP 10-325MG 1 EACH TAB PO PRN ×2 (04:26→18:53)
[2017-11-30 06:32] LABS: Mycoplasma IgM Antibody 0.05 INDEX (<=0.90)
[2017-11-30] MEDS: LEVOTHYROXINE 50 MCG TAB PO SCH (06:59)
[2017-11-30 07:07] LABS: Basophils # (A) 0.1 k/uL (0-0.2); Basophils % (A) 0 %; Eosinophils # (A) 0.1 k/uL (0-0.7); Eosinophils % (A) 0 %; HCT 41.7 % (34.0-46.0); HGB 13.5 gm/dL (11.4-16.0); Lymphocytes # (A) 1.1 k/uL (1.0-4.8); Lymphocytes % (A) 5 %; MCHC 32.3 g/dL (31.0-37.0); MCV 89.7 fL (80.0-100.0); Mean Platelet Volume 7.1; Monocytes # (A) 0.9 k/uL (0-1.0); Monocytes % (A) 4 %; Neutrophils # (A) 19.9 k/uL (1.3-7.7); Neutrophils % (A) 90 %; Platelet Count 413 k/uL (150-450); RBC 4.65 m/uL (3.80-5.40); RDW 12.7 % (11.5-15.5); WBC 22.2 k/uL (3.8-10.6)
[2017-11-30] MEDS: BUDESONIDE 1 MG/2 ML NEBU INHALATION SCH ×2 (08:06→20:47)
[2017-11-30] MEDS: IPRATROPIUM-ALBUTEROL 3 ML NEB INHALATION SCH ×4 (08:06→20:47)
[2017-11-30] MEDS: NICOTINE 14MG/24HR PATCH TRANSDERM SCH (09:11)
[2017-11-30] MEDS: ENOXAPARIN 40 MG/0.4 ML SYRINGE SQ SCH (09:18)
[2017-11-30] MEDS: FUROSEMIDE 20 MG TAB PO SCH (09:19)
[2017-11-30] MEDS: SERTRALINE 50 MG TAB PO SCH ×2 (09:20→20:24)
[2017-11-30] MEDS: MONTELUKAST 10 MG TAB PO SCH (09:20)
[2017-11-30] MEDS: NYSTATIN 100,000 UNIT/ML SUSP 500,000 UNIT/5 ML CUP PO SCH ×4 (09:20→20:24)
[2017-11-30] MEDS: buPROPion SR 150 MG TABLET.ER PO SCH ×2 (09:20→20:24)
[2017-11-30] MEDS: NYSTATIN 100,000 UNIT/GM POWD 15 GM TOPICAL SCH (09:21)
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
[2017-11-30] MEDS ORDERED: MIDAZOLAM 2 MG/2 ML VIAL ONE (13:41)
[2017-11-30] MEDS ORDERED: fentaNYL (PF) 50 MCG/ML 2 ML AMP ONE (13:41)
[2017-11-30] MEDS ORDERED: LIDOCAINE 1% INJ 10MG/ML (20 ML MDV) ONE (13:41)
[2017-11-30] MEDS ORDERED: PROPOFOL 10 MG/ML 20 ML VIAL IV ONE (13:41)
[2017-11-30] MEDS ORDERED: IV FLUID CONTINUATION 800 ML IV ONE (13:43)
--- NOTE | 2017-11-30 14:29 | PCN ---
PROCEDURE NOTE PROCEDURE PERFORMED: 1. Bronchoscopy airway examination. 2. Therapeutic lavage. 3. BAL. PREOP DIAGNOSIS: Pneumonia. POSTOP DIAGNOSIS: Pneumonia. OPERATORS: Dr. Henry and Dr. Woods. ANESTHESIA: Billy Sam CRNA provided general anesthesia and unconscious sedation. DESCRIPTION OF PROCEDURE: The patient's procedure was done in room #1. There was informed consent and universal timeout. After the patient was adequately sedated and being fully monitored, the bronchoscope was inserted through the right nostril. It passed through the right nasopharynx into the oropharynx. The hypopharynx was identified and topicalized. The hypopharyngeal structures including anterior commissure, true cords, false cords, arytenoids, piriform sinuses, right and left vallecula and epiglottis all appeared relatively normal. There were some dried secretions noted in the right piriform sinuses. Next, after topicalization, bronchoscope was pushed through the glottic opening into the trachea. Trachea appeared relatively normal. There were some secretions noted in the trachea. They were purulent looking. Next, the tracheal ely was evaluated. It was sharp. The right and left mainstem were topicalized. The right upper lobe and its 3 segments, right middle lobe and its 2 segments, right lower lobe and its 5 segments, left upper lobe proper and its 2 segments, lingula and its 2 segments and left lower lobe and its 4 segments all had similar findings of mild to moderate bronchitis. There was somewhat thick secretions noted throughout. They were clear to slight yellow. No bleeding. The vascularity appeared relatively normal. There was no dominant mass or tumor. There was no blood in the airways. The bronchoscope was then wedged into the right middle lobe. The BAL took place. The patient tolerated the procedure well. There was no bleeding and the bronchoscope was withdrawn. The patient will be recovered. MMODL / IJN: [id number] /
[2017-11-30] MEDS: LEVOFLOXACIN 750 MG TAB PO SCH (15:17)
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
[2017-11-30] MEDS: CALCIUM CARBONATE 500 MG CHEWABLE PO SCH (20:24)
[2017-12-01] MEDS: methylPREDNISolone SOD SUCCI 40 MG/ML 1 ML VIAL IV SCH ×3 (00:03→16:09)
[2017-12-01] MEDS: VANCOMYCIN 1,500 MG in SODIUM CHLORIDE 0.9% 250 ML IVPB SCH ×3 (00:03→16:09)
[2017-12-01] MEDS: SODIUM CHLORIDE 0.9% 1,000 ML IV SCH (00:03)
[2017-12-01] MEDS: NYSTATIN 100,000 UNIT/GM POWD 15 GM TOPICAL SCH ×3 (00:04→20:58)
[2017-12-01] MEDS: HYDROcodone/APAP 10-325MG 1 EACH TAB PO PRN ×2 (01:17→07:29)
[2017-12-01] MEDS: ALPRAZolam 0.5 MG TAB PO PRN (03:38)
[2017-12-01] MEDS: IPRATROPIUM-ALBUTEROL 3 ML NEB INHALATION PRN (03:39)
[2017-12-01] MEDS: PIPERACILLIN-TAZOBACTAM 3.375 GM in DEXTROSE/WATER 1 50ML.BAG IVPB SCH ×3 (04:15→19:53)
[2017-12-01 06:43] LABS: Anion Gap 7 mmol/L; Blood Urea Nitrogen 17 mg/dL (7-17); Calcium 8.7 mg/dL (8.4-10.2); Carbon Dioxide 30 mmol/L (22-30); Chloride 101 mmol/L (98-107); Glucose 139 mg/dL (74-99); Potassium 4.5 mmol/L (3.5-5.1); Sodium 138 mmol/L (137-145)
[2017-12-01] MEDS: IPRATROPIUM-ALBUTEROL 3 ML NEB INHALATION SCH ×4 (06:59→19:22)
[2017-12-01] MEDS: BUDESONIDE 1 MG/2 ML NEBU INHALATION SCH ×2 (06:59→19:22)
[2017-12-01] MEDS ORDERED: VANCOMYCIN TROUGH DUE 1 EACH MISC MISCELLANE ONE (07:00)
[2017-12-01] MEDS: LEVOTHYROXINE 50 MCG TAB PO SCH (07:29)
[2017-12-01] MEDS: FAMOTIDINE 20 MG TAB PO PRN (08:05)
[2017-12-01] MEDS: buPROPion SR 150 MG TABLET.ER PO SCH ×2 (08:05→20:59)
[2017-12-01] MEDS: ENOXAPARIN 40 MG/0.4 ML SYRINGE SQ SCH (08:05)
[2017-12-01] MEDS: MONTELUKAST 10 MG TAB PO SCH (08:06)
[2017-12-01] MEDS: FUROSEMIDE 20 MG TAB PO SCH (08:06)
[2017-12-01] MEDS: NICOTINE 14MG/24HR PATCH TRANSDERM SCH (08:06)
[2017-12-01] MEDS: NYSTATIN 100,000 UNIT/ML SUSP 500,000 UNIT/5 ML CUP PO SCH ×4 (08:07→20:59)
[2017-12-01] MEDS: SERTRALINE 50 MG TAB PO SCH ×2 (08:07→20:59)
--- NOTE | 2017-12-01 10:21 | XR ---
EXAMINATION TYPE: XR chest 2V DATE OF EXAM: 12/01/2017 COMPARISON: 11/28/2017 HISTORY: Extreme shortness of breath TECHNIQUE: Frontal and lateral views of the chest are obtained. FINDINGS: There is overall improved aeration in comparison to the prior exam however there remains p ulmonary vascular congestion and interstitial edema which are [id number]. Cardiac silhouette is again enlarged. No sizable discrete pleural effusions or pneumothorax. Osseous structures appear int act. IMPRESSION: Improved aeration of the lungs in comparison to the prior however there remains mild to moderate interstitial pulmonary edema and pulmonary vascular congestion likely on the basis of decomp ensated congestive heart failure.
--- NOTE | 2017-12-01 12:26 | P.PN ---
Subjective Progress Note Date: 12/01/17 Principal diagnosis: Pneumonia Progress note dated 11/28/2017 42-year-old female admitted with a diagnosis of acute bibasal pneumonia and hypoxemic respiratory failure. The patient x-ray shows diffuse bibasilar infiltrates. It may be a combination of infection and fluid. Her story seems to fit better for pneumonia and then fluid overload. Anyway, the patient's really not showing much improvement. Just a bit better. 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 I did tell the patient today that if she's not improved over the next couple of days, we might BE inclined to go ahead and do bronchoscopy with airway secretion removal and sampling. She has been seen by infectious disease. Her antibiotics have been broadened. Some additional testing was done. Her primary complaint is that of shortness of breath. She does have a bit of a cough not producing much or any phlegm at this time. Progress note dated 12/01/2017 42-year-old female admitted with a diagnosis of acute bilateral pneumonia and hypoxemic respiratory failure. The patient underwent bronchoscopy yesterday. Currently feeling much better today. Much less short of breath. Still requiring relatively higher concentrations of oxygen. We'll ask respiratory to start titrating that back. In addition, last the nurse to put in for a new chest x-ray. Again the patient does feel much improved. She does have a history of COPD, as well as respiratory bronchiolitis/interstitial lung disease , morbid obesity hypertension sleep apnea syndrome hypothyroidism and GERD. Laboratory from today shows a relatively normal basic metabolic profile. Creatinine is 0.5. Thus far microbiology from the [facility] is negative. Chest x-ray shows improved aeration of the lung jamil. There are still abnormalities noted in both lung bases. Objective - Vital Signs Vital signs: Vital Signs Temp 97.6 F 12/01/17 07:00 Pulse 92 12/01/17 11:26 Resp 20 12/01/17 11:01 BP 107/75 12/01/17 07:00 Pulse Ox 96 12/01/17 11:01 Intake & Output 11/30/17 12/01/17 12/01/17 18:59 06:59 18:59 Intake Total 200 600 Balance 200 600 Weight 100 kg Intake: IV 200 Oral 600 Other: # Voids 2 3 1 # Bowel Movements 1 - Exam No acute distress, oriented 3. Supplemental oxygen in place. HEENT examination is grossly unremarkable. Mucous membranes are moist. No oral lesions. Neck supple. Full range of motion. No adenopathy thyromegaly or neck vein distention. Cardiovascular examination reveals regular rhythm rate. S1-S2 normal. No S3 or S4. No discernible murmur noted. Lungs reveal bilateral rhonchi. Breath sounds equal bilaterally. Crackles are appreciated. No wheezes. Breath sounds are certainly much improved. Abdomen soft bowel sounds are heard. No masses or tenderness. Extremities are intact. No cyanosis clubbing or edema. Skin is without rash or lesion. Neurologic examination is brief but nonfocal. - Labs CBC & Chem 7: 11/30/17 06:32 12/01/17 06:19 Labs: Abnormal Lab Results - Last 24 Hours (Table) 12/01/17 Range/Units 06:19 Creatinine 0.50 L (0.52-1.04) mg/dL Glucose 139 H (74-99) mg/dL Microbiology - Last 24 Hours (Table) 11/30/17 14:00 Gram Stain - Preliminary Bronchoalviolar Lavage - Right Bronchial Washings Culture - Preliminary 11/30/17 14:00 Acid Fast Bacilli Culture - Preliminary Bronchoalviolar Lavage - Right 11/30/17 14:00 Fungal Culture - Preliminary Bronchoalviolar Lavage - Right Assessment and Plan Assessment: Assessment Acute bilateral pneumonia with hypoxemic respiratory failure Status post bronchoscopy with BAL on 11/30/2017 Possible fluid overload, thought to be less likely COPD secondary to chronic tobacco use 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 She has been seen by infectious disease. If she does not show improvement, towards the mid to end of this week , she will likely need bronchoscopy. This will serve to remove any secretions or down in her lungs and also provide sampling for the laboratory. Legionella urinary antigen is pending. Mycoplasma studies are pending. Additional recommendations suggestions are forthcoming. Plan dated 12/01/2017 The patient is clinically much improved. The chest x-ray is much improved as well. Bronchial washings are currently pending or negative. We'll await the final results. We'll continue to titrate down the oxygen. We'll continue on breathing treatments. Labs x-rays a medications are all reviewed. Prognosis is guarded. Time with Patient: Less than 30
[2017-12-01] MEDS: LEVOFLOXACIN 750 MG TAB PO SCH (14:00)
[2017-12-01] MEDS: CALCIUM CARBONATE 500 MG CHEWABLE PO SCH (20:59)
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
[2017-12-02] MEDS: VANCOMYCIN 1,500 MG in SODIUM CHLORIDE 0.9% 250 ML IVPB SCH ×3 (00:20→16:30)
[2017-12-02] MEDS: methylPREDNISolone SOD SUCCI 40 MG/ML 1 ML VIAL IV SCH ×3 (00:20→16:30)
[2017-12-02] MEDS: SODIUM CHLORIDE 0.9% 1,000 ML IV SCH (00:31)
[2017-12-02] MEDS: PIPERACILLIN-TAZOBACTAM 3.375 GM in DEXTROSE/WATER 1 50ML.BAG IVPB SCH ×3 (04:25→20:03)
[2017-12-02] MEDS: LEVOTHYROXINE 50 MCG TAB PO SCH (06:43)
[2017-12-02 07:03] LABS: Anion Gap 6 mmol/L; Blood Urea Nitrogen 13 mg/dL (7-17); Calcium 8.6 mg/dL (8.4-10.2); Carbon Dioxide 32 mmol/L (22-30); Chloride 102 mmol/L (98-107); Glucose 155 mg/dL (74-99); Potassium 4.6 mmol/L (3.5-5.1); Sodium 140 mmol/L (137-145)
[2017-12-02] MEDS: IPRATROPIUM-ALBUTEROL 3 ML NEB INHALATION SCH ×4 (07:36→19:22)
[2017-12-02] MEDS: BUDESONIDE 1 MG/2 ML NEBU INHALATION SCH ×2 (07:36→19:22)
[2017-12-02] MEDS: NICOTINE 14MG/24HR PATCH TRANSDERM SCH (08:46)
[2017-12-02] MEDS: FUROSEMIDE 20 MG TAB PO SCH (08:46)
[2017-12-02] MEDS: SERTRALINE 50 MG TAB PO SCH ×2 (08:46→20:27)
[2017-12-02] MEDS: MONTELUKAST 10 MG TAB PO SCH (08:46)
[2017-12-02] MEDS: NYSTATIN 100,000 UNIT/ML SUSP 500,000 UNIT/5 ML CUP PO SCH ×4 (08:46→20:26)
[2017-12-02] MEDS: FAMOTIDINE 20 MG TAB PO PRN (08:46)
[2017-12-02] MEDS: buPROPion SR 150 MG TABLET.ER PO SCH ×2 (08:46→20:27)
[2017-12-02] MEDS: ENOXAPARIN 40 MG/0.4 ML SYRINGE SQ SCH (08:47)
[2017-12-02] MEDS: NYSTATIN 100,000 UNIT/GM POWD 15 GM TOPICAL SCH ×2 (08:48→20:28)
[2017-12-02] MEDS: LEVOFLOXACIN 750 MG TAB PO SCH (13:02)
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
[2017-12-02] MEDS ORDERED: FUROSEMIDE 10 MG/ML 4 ML VIAL IV STA (14:06)
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
[2017-12-02] MEDS: CALCIUM CARBONATE 500 MG CHEWABLE PO SCH (20:27)
[2017-12-02] MEDS: HYDROcodone/APAP 10-325MG 1 EACH TAB PO PRN (20:27)
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
[2017-12-03] MEDS: methylPREDNISolone SOD SUCCI 40 MG/ML 1 ML VIAL IV SCH ×3 (00:05→16:53)
[2017-12-03] MEDS: VANCOMYCIN 1,500 MG in SODIUM CHLORIDE 0.9% 250 ML IVPB SCH ×3 (00:05→16:00)
[2017-12-03] MEDS: SODIUM CHLORIDE 0.9% 1,000 ML IV SCH (00:07)
[2017-12-03] MEDS: PIPERACILLIN-TAZOBACTAM 3.375 GM in DEXTROSE/WATER 1 50ML.BAG IVPB SCH ×3 (05:07→20:01)
[2017-12-03] MEDS: HYDROcodone/APAP 10-325MG 1 EACH TAB PO PRN ×3 (06:04→20:54)
[2017-12-03] MEDS: LEVOTHYROXINE 50 MCG TAB PO SCH (06:05)
[2017-12-03 07:20] LABS: Anion Gap 4 mmol/L; Blood Urea Nitrogen 17 mg/dL (7-17); Calcium 8.6 mg/dL (8.4-10.2); Carbon Dioxide 32 mmol/L (22-30); Chloride 102 mmol/L (98-107); Glucose 178 mg/dL (74-99); Potassium 4.4 mmol/L (3.5-5.1); Sodium 138 mmol/L (137-145)
[2017-12-03] MEDS: IPRATROPIUM-ALBUTEROL 3 ML NEB INHALATION SCH ×4 (08:56→21:06)
[2017-12-03] MEDS: BUDESONIDE 1 MG/2 ML NEBU INHALATION SCH ×2 (08:56→21:06)
--- NOTE | 2017-12-03 09:31 | P.PN ---
Subjective Progress Note Date: 12/03/17 Principal diagnosis: Pneumonia Progress note dated 11/28/2017 42-year-old female admitted with a diagnosis of acute bibasal pneumonia and hypoxemic respiratory failure. The patient x-ray shows diffuse bibasilar infiltrates. It may be a combination of infection and fluid. Her story seems to fit better for pneumonia and then fluid overload. Anyway, the patient's really not showing much improvement. Just a bit better. 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 I did tell the patient today that if she's not improved over the next couple of days, we might BE inclined to go ahead and do bronchoscopy with airway secretion removal and sampling. She has been seen by infectious disease. Her antibiotics have been broadened. Some additional testing was done. Her primary complaint is that of shortness of breath. She does have a bit of a cough not producing much or any phlegm at this time. Progress note dated 12/01/2017 42-year-old female admitted with a diagnosis of acute bilateral pneumonia and hypoxemic respiratory failure. The patient underwent bronchoscopy yesterday. Currently feeling much better today. Much less short of breath. Still requiring relatively higher concentrations of oxygen. We'll ask respiratory to start titrating that back. In addition, last the nurse to put in for a new chest x-ray. Again the patient does feel much improved. She does have a history of COPD, as well as respiratory bronchiolitis/interstitial lung disease , morbid obesity hypertension sleep apnea syndrome hypothyroidism and GERD. Laboratory from today shows a relatively normal basic metabolic profile. Creatinine is 0.5. Thus far microbiology from the [facility] is negative. Chest x-ray shows improved aeration of the lung jamil. There are still abnormalities noted in both lung bases. Progress note dated 12/03/2017 42-year-old female admitted with a diagnosis of acute bilateral pneumonia with hypoxemic respiratory failure. The patient underwent bronchoscopy on November 30. So far all the sampling has been negative. Clinically she is much improved. Likewise, chest x-rays improved. Today we take her off the oxygen. She does desaturate down to the high 80s. Likely will need to send her home with oxygen at 2 L. She can always also be discharged home on her antibiotics. She has a history of COPD as well as respiratory bronchiolitis/interstitial lung disease, now referred to as smoking-related interstitial fibrosis, morbid obesity, hypertension, sleep apnea syndrome, hypothyroidism and GERD. The patient's vital signs are reviewed. Everything looks stable there. Objective - Vital Signs Vital signs: Vital Signs Temp 98.2 F 12/03/17 00:00 Pulse 92 12/03/17 09:09 Resp 20 12/03/17 00:00 BP 116/73 12/03/17 00:00 Pulse Ox 94 L 12/03/17 08:59 Intake & Output 12/02/17 12/03/17 12/03/17 18:59 06:59 18:59 Intake Total 200 600 Balance 200 600 Intake: Oral 200 600 Other: # Voids 2 2 # Bowel Movements 1 - Exam No acute distress, oriented 3. Supplemental oxygen in place. HEENT examination is grossly unremarkable. Mucous membranes are moist. No oral lesions. Neck supple. Full range of motion. No adenopathy thyromegaly or neck vein distention. Cardiovascular examination reveals regular rhythm rate. S1-S2 normal. No S3 or S4. No discernible murmur noted. Lungs reveal bilateral rhonchi. Breath sounds equal bilaterally. Crackles are appreciated. No wheezes. Breath sounds are certainly much improved. Abdomen soft bowel sounds are heard. No masses or tenderness. Extremities are intact. No cyanosis clubbing or edema. Skin is without rash or lesion. Neurologic examination is brief but nonfocal. - Labs CBC & Chem 7: 11/30/17 06:32 12/03/17 06:51 Labs: Abnormal Lab Results - Last 24 Hours (Table) 12/03/17 Range/Units 06:51 Carbon Dioxide 32 H (22-30) mmol/L Glucose 178 H (74-99) mg/dL Microbiology - Last 24 Hours (Table) 11/30/17 14:00 Gram Stain - Final Bronchoalviolar Lavage - Right Bronchial Washings Culture - Final Assessment and Plan Assessment: Assessment Acute bilateral pneumonia with hypoxemic respiratory failure Status post bronchoscopy with BAL on 11/30/2017, sampling thus far negative. 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 She has been seen by infectious disease. If she does not show improvement, towards the mid to end of this week , she will likely need bronchoscopy. This will serve to remove any secretions or down in her lungs and also provide sampling for the laboratory. Legionella urinary antigen is pending. Mycoplasma studies are pending. Additional recommendations suggestions are forthcoming. Plan dated 12/01/2017 The patient is clinically much improved. The chest x-ray is much improved as well. Bronchial washings are currently pending or negative. We'll await the final results. We'll continue to titrate down the oxygen. We'll continue on breathing treatments. Labs x-rays a medications are all reviewed. Prognosis is guarded. Plan dated December 03, 2017 The patient is doing much better. In my opinion, she could be discharged home on some supplemental oxygen at 2 L. The patient will need to go home on antibiotics as well. She should have follow-up in the office so that we can make sure her pneumonia completely clears. Clinically she is feeling well. Bronchoscopy results of those far all negative. Labs today include a normal sodium potassium and chloride. CO2 32. BUN 17 with a creatinine of 0.66. Viral studies on the BAL, via PCR, all negative. Time with Patient: Less than 30
[2017-12-03] MEDS ORDERED: MAGNESIUM OXIDE 400 MG TAB PO STA (09:36)
[2017-12-03] MEDS: NICOTINE 14MG/24HR PATCH TRANSDERM SCH (09:53)
[2017-12-03] MEDS: FAMOTIDINE 20 MG TAB PO PRN (09:54)
[2017-12-03] MEDS: ENOXAPARIN 40 MG/0.4 ML SYRINGE SQ SCH (09:54)
[2017-12-03] MEDS: MONTELUKAST 10 MG TAB PO SCH (09:55)
[2017-12-03] MEDS: FUROSEMIDE 20 MG TAB PO SCH (09:56)
[2017-12-03] MEDS: buPROPion SR 150 MG TABLET.ER PO SCH ×2 (09:59→20:55)
[2017-12-03] MEDS: NYSTATIN 100,000 UNIT/ML SUSP 500,000 UNIT/5 ML CUP PO SCH ×4 (10:00→20:54)
[2017-12-03] MEDS: NYSTATIN 100,000 UNIT/GM POWD 15 GM TOPICAL SCH ×2 (10:00→20:56)
[2017-12-03] MEDS: SERTRALINE 50 MG TAB PO SCH ×2 (10:01→20:55)
[2017-12-03 12:41] LABS: MCH 29.2 pg (25.0-35.0); MCHC 31.7 g/dL (31.0-37.0); Mean Platelet Volume 7.8; Platelet Count 411 k/uL (150-450); RBC 4.79 m/uL (3.80-5.40)
[2017-12-03 12:49] LABS: WBC 26.3 k/uL (3.8-10.6)
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
[2017-12-03 12:58] LABS: Band Neutrophils % 5 %; Lymphocytes # (M) 1.84 k/uL (1.0-4.8); Metamyelocytes # (M) 1.05 k/uL (0); Metamyelocytes % 4 %; Monocytes # (M) 1.32 k/uL (0-1.0); Myelocytes # (M) 1.05 k/uL (0); Myelocytes % 4 %; Neutrophils % (M) 75 %; Nucleated Red Blood Cells 0 /100 WBC (0-0); Total Cells Counted 200
[2017-12-03] MEDS: LEVOFLOXACIN 750 MG TAB PO SCH (14:22)
[2017-12-03] MEDS ORDERED: VANCOMYCIN TROUGH DUE 1 EACH MISC MISCELLANE ONE (15:00)
[2017-12-03] MEDS: CALCIUM CARBONATE 500 MG CHEWABLE PO SCH (20:55)
[2017-12-04] MEDS: methylPREDNISolone SOD SUCCI 40 MG/ML 1 ML VIAL IV SCH ×4 (00:26→23:47)
[2017-12-04] MEDS: VANCOMYCIN 1,500 MG in SODIUM CHLORIDE 0.9% 250 ML IVPB SCH ×3 (00:27→23:47)
[2017-12-04] MEDS: ALPRAZolam 0.5 MG TAB PO PRN ×2 (03:30→23:46)
[2017-12-04] MEDS: HYDROcodone/APAP 10-325MG 1 EACH TAB PO PRN ×3 (03:30→23:46)
[2017-12-04] MEDS: PIPERACILLIN-TAZOBACTAM 3.375 GM in DEXTROSE/WATER 1 50ML.BAG IVPB SCH ×3 (03:32→20:11)
[2017-12-04 05:37] LABS: Anion Gap 5 mmol/L; Blood Urea Nitrogen 16 mg/dL (7-17); Calcium 8.5 mg/dL (8.4-10.2); Carbon Dioxide 29 mmol/L (22-30); Chloride 103 mmol/L (98-107); Glucose 278 mg/dL (74-99); Potassium 4.2 mmol/L (3.5-5.1); Sodium 137 mmol/L (137-145)
[2017-12-04] MEDS: LEVOTHYROXINE 50 MCG TAB PO SCH (07:27)
[2017-12-04] MEDS: IPRATROPIUM-ALBUTEROL 3 ML NEB INHALATION SCH ×4 (09:17→19:40)
[2017-12-04] MEDS: BUDESONIDE 1 MG/2 ML NEBU INHALATION SCH ×2 (09:17→19:40)
[2017-12-04] MEDS: SODIUM CHLORIDE 0.9% 1,000 ML IV SCH ×3 (09:26→20:58)
[2017-12-04] MEDS: NICOTINE 14MG/24HR PATCH TRANSDERM SCH (09:27)
[2017-12-04] MEDS: ENOXAPARIN 40 MG/0.4 ML SYRINGE SQ SCH (09:27)
[2017-12-04] MEDS: buPROPion SR 150 MG TABLET.ER PO SCH ×2 (09:27→20:56)
[2017-12-04] MEDS: FUROSEMIDE 20 MG TAB PO SCH (09:29)
[2017-12-04] MEDS: NYSTATIN 100,000 UNIT/ML SUSP 500,000 UNIT/5 ML CUP PO SCH ×4 (09:30→20:56)
[2017-12-04] MEDS: SERTRALINE 50 MG TAB PO SCH ×2 (09:30→20:56)
[2017-12-04] MEDS: MONTELUKAST 10 MG TAB PO SCH (09:30)
[2017-12-04] MEDS: NYSTATIN 100,000 UNIT/GM POWD 15 GM TOPICAL SCH ×2 (09:30→20:57)
--- NOTE | 2017-12-04 10:53 | P.PN ---
Subjective Progress Note Date: 12/04/17 Principal diagnosis: Pneumonia Progress note dated 11/28/2017 42-year-old female admitted with a diagnosis of acute bibasal pneumonia and hypoxemic respiratory failure. The patient x-ray shows diffuse bibasilar infiltrates. It may be a combination of infection and fluid. Her story seems to fit better for pneumonia and then fluid overload. Anyway, the patient's really not showing much improvement. Just a bit better. 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 I did tell the patient today that if she's not improved over the next couple of days, we might BE inclined to go ahead and do bronchoscopy with airway secretion removal and sampling. She has been seen by infectious disease. Her antibiotics have been broadened. Some additional testing was done. Her primary complaint is that of shortness of breath. She does have a bit of a cough not producing much or any phlegm at this time. Progress note dated 12/01/2017 42-year-old female admitted with a diagnosis of acute bilateral pneumonia and hypoxemic respiratory failure. The patient underwent bronchoscopy yesterday. Currently feeling much better today. Much less short of breath. Still requiring relatively higher concentrations of oxygen. We'll ask respiratory to start titrating that back. In addition, last the nurse to put in for a new chest x-ray. Again the patient does feel much improved. She does have a history of COPD, as well as respiratory bronchiolitis/interstitial lung disease , morbid obesity hypertension sleep apnea syndrome hypothyroidism and GERD. Laboratory from today shows a relatively normal basic metabolic profile. Creatinine is 0.5. Thus far microbiology from the [facility] is negative. Chest x-ray shows improved aeration of the lung jamil. There are still abnormalities noted in both lung bases. Progress note dated 12/03/2017 42-year-old female admitted with a diagnosis of acute bilateral pneumonia with hypoxemic respiratory failure. The patient underwent bronchoscopy on November 30. So far all the sampling has been negative. Clinically she is much improved. Likewise, chest x-rays improved. Today we take her off the oxygen. She does desaturate down to the high 80s. Likely will need to send her home with oxygen at 2 L. She can always also be discharged home on her antibiotics. She has a history of COPD as well as respiratory bronchiolitis/interstitial lung disease, now referred to as smoking-related interstitial fibrosis, morbid obesity, hypertension, sleep apnea syndrome, hypothyroidism and GERD. The patient's vital signs are reviewed. Everything looks stable there. Progress note dated 12/04/2017 42-year-old female admitted with a diagnosis of acute bilateral pneumonia with hypoxemic respiratory failure. The patient underwent bronchoscopy on November 30. Thus far all her sampling including microbiologic studies have been negative. She is clinically and radiographically improved but may be did need to be discharged home on oxygen therapy for a short time. I would like to see her in my office in a week or 2. The patient has a history of underlying COPD and also carries with a diagnosis of respiratory bronchiolitis/interstitial lung disease, now referred to as smoking-related interstitial fibrosis (SRIF), morbid obesity, hypertension, sleep apnea syndrome, hypothyroidism and GERD. The patient's feeling much improved. Much less shortness of breath. Still a bit short of breath when she exerts herself. Denies any fever or chills. Not coughing up much or any phlegm. CBC from today is essentially normal. Microbiologic studies at this point are still negative. Last chest x-ray was on December 01. Objective - Vital Signs Vital signs: Vital Signs Temp 98.0 F 12/04/17 07:30 Pulse 92 12/04/17 09:31 Resp 20 12/04/17 08:00 BP 148/88 12/04/17 07:30 Pulse Ox 95 12/04/17 07:30 Intake & Output 12/03/17 12/04/17 12/04/17 18:59 06:59 18:59 Intake Total 600 600 Balance 600 600 Intake: Oral 600 600 Other: Voiding Method Toilet # Voids 2 1 # Bowel Movements 1 - Exam No acute distress, oriented 3. Supplemental oxygen in place. She is down to 2 L by nasal cannula. HEENT examination is grossly unremarkable. Mucous membranes are moist. No oral lesions. Neck supple. Full range of motion. No adenopathy thyromegaly or neck vein distention. Cardiovascular examination reveals regular rhythm rate. S1-S2 normal. No S3 or S4. No discernible murmur noted. Lungs reveal bilateral rhonchi. Breath sounds equal bilaterally. Crackles are appreciated. No wheezes. Breath sounds are certainly much improved. Abdomen soft bowel sounds are heard. No masses or tenderness. Extremities are intact. No cyanosis clubbing or edema. Skin is without rash or lesion. Neurologic examination is brief but nonfocal. - Labs CBC & Chem 7: 12/03/17 06:51 12/04/17 05:13 Labs: Abnormal Lab Results - Last 24 Hours (Table) 12/03/17 12/04/17 Range/Units 06:51 05:13 WBC 26.3 H* (3.8-10.6) k/uL Neutrophils # (Manual) 21.00 H (1.3-7.7) k/uL Monocytes # (Manual) 1.32 H (0-1.0) k/uL Metamyelocytes # (Man) 1.05 H (0) k/uL Myelocytes # (Manual) 1.05 H (0) k/uL Glucose 278 H (74-99) mg/dL Microbiology - Last 24 Hours (Table) 11/30/17 14:00 Gram Stain - Final Bronchoalviolar Lavage - Right Bronchial Washings Culture - Final Assessment and Plan Assessment: Assessment Acute bilateral pneumonia with hypoxemic respiratory failure Status post bronchoscopy with BAL on 11/30/2017, sampling thus far negative. 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 She has been seen by infectious disease. If she does not show improvement, towards the mid to end of this week , she will likely need bronchoscopy. This will serve to remove any secretions or down in her lungs and also provide sampling for the laboratory. Legionella urinary antigen is pending. Mycoplasma studies are pending. Additional recommendations suggestions are forthcoming. Plan dated 12/01/2017 The patient is clinically much improved. The chest x-ray is much improved as well. Bronchial washings are currently pending or negative. We'll await the final results. We'll continue to titrate down the oxygen. We'll continue on breathing treatments. Labs x-rays a medications are all reviewed. Prognosis is guarded. Plan dated December 03, 2017 The patient is doing much better. In my opinion, she could be discharged home on some supplemental oxygen at 2 L. The patient will need to go home on antibiotics as well. She should have follow-up in the office so that we can make sure her pneumonia completely clears. Clinically she is feeling well. Bronchoscopy results of those far all negative. Labs today include a normal sodium potassium and chloride. CO2 32. BUN 17 with a creatinine of 0.66. Viral studies on the BAL, via PCR, all negative. Plan dated 12/04/2016 The patient seems to be doing better. She likely will be discharged home on oxygen therapy. She should go home on a short course of antibiotics and steroids. The patient will follow-up in our office. Additional recommendations and suggestions are forthcoming. Prognosis is guarded. She is going home to rest and take it easy. We recommend sending her home with the incentive spirometer to use every hour while awake. In addition, we recommend deep breathing coughing and clearing of secretions. Time with Patient: Less than 30
[2017-12-04] MEDS: LEVOFLOXACIN 750 MG TAB PO SCH (15:00)
[2017-12-04 15:28] LABS: Basophils # (A) 0.2 k/uL (0-0.2); Basophils % (A) 1 %; Eosinophils # (A) 0.1 k/uL (0-0.7); Eosinophils % (A) 0 %; HGB 13.8 gm/dL (11.4-16.0); Hypochromasia Slight; Lymphocytes # (A) 0.8 k/uL (1.0-4.8); Lymphocytes % (A) 3 %; MCHC 30.6 g/dL (31.0-37.0); MCV 94.7 fL (80.0-100.0); Mean Platelet Volume 8.7; Monocytes # (A) 1.2 k/uL (0-1.0); Monocytes % (A) 5 %; Neutrophils % (A) 90 %; Platelet Count 364 k/uL (150-450); RBC 4.75 m/uL (3.80-5.40); RDW 13.1 % (11.5-15.5); WBC 24.4 k/uL (3.8-10.6)
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
[2017-12-04] MEDS: CALCIUM CARBONATE 500 MG CHEWABLE PO SCH (20:56)
[2017-12-05] MEDS: PIPERACILLIN-TAZOBACTAM 3.375 GM in DEXTROSE/WATER 1 50ML.BAG IVPB SCH ×2 (05:11→13:40)
[2017-12-05] MEDS: LEVOTHYROXINE 50 MCG TAB PO SCH (05:11)
[2017-12-05 06:51] LABS: Anion Gap 8 mmol/L; Blood Urea Nitrogen 12 mg/dL (7-17); Calcium 8.9 mg/dL (8.4-10.2); Carbon Dioxide 28 mmol/L (22-30); Chloride 102 mmol/L (98-107); Glucose 245 mg/dL (74-99); HCT 44.4 % (34.0-46.0); HGB 14.2 gm/dL (11.4-16.0); MCH 29.2 pg (25.0-35.0); MCV 91.1 fL (80.0-100.0); Mean Platelet Volume 6.8; Platelet Count 379 k/uL (150-450); Potassium 4.4 mmol/L (3.5-5.1); RBC 4.88 m/uL (3.80-5.40); Sodium 138 mmol/L (137-145); WBC 23.4 k/uL (3.8-10.6)
[2017-12-05 07:39] LABS: Band Neutrophils % 1 %; Hypochromasia (M) Present; Lymphocytes # (M) 4.21 k/uL (1.0-4.8); Neutrophils % (M) 81 %; Nucleated Red Blood Cells 0 /100 WBC (0-0); Total Cells Counted 100
[2017-12-05] MEDS: BUDESONIDE 1 MG/2 ML NEBU INHALATION SCH (07:42)
[2017-12-05] MEDS: IPRATROPIUM-ALBUTEROL 3 ML NEB INHALATION SCH ×3 (07:43→15:26)
[2017-12-05] MEDS: methylPREDNISolone SOD SUCCI 40 MG/ML 1 ML VIAL IV SCH ×2 (09:20→15:38)
[2017-12-05] MEDS: SERTRALINE 50 MG TAB PO SCH (09:21)
[2017-12-05] MEDS: buPROPion SR 150 MG TABLET.ER PO SCH (09:21)
[2017-12-05] MEDS: NICOTINE 14MG/24HR PATCH TRANSDERM SCH (09:21)
[2017-12-05] MEDS: ENOXAPARIN 40 MG/0.4 ML SYRINGE SQ SCH (09:21)
[2017-12-05] MEDS: NYSTATIN 100,000 UNIT/ML SUSP 500,000 UNIT/5 ML CUP PO SCH ×2 (09:21→13:40)
[2017-12-05] MEDS: MONTELUKAST 10 MG TAB PO SCH (09:21)
[2017-12-05] MEDS: FUROSEMIDE 20 MG TAB PO SCH (09:21)
[2017-12-05] MEDS: NYSTATIN 100,000 UNIT/GM POWD 15 GM TOPICAL SCH (09:22)
[2017-12-05] MEDS: HYDROcodone/APAP 10-325MG 1 EACH TAB PO PRN (09:31)
[2017-12-05] MEDS: ALPRAZolam 0.5 MG TAB PO PRN (09:32)
[2017-12-05 09:53] VITALS: RESP 16
[2017-12-05] MEDS: VANCOMYCIN 1,500 MG in SODIUM CHLORIDE 0.9% 250 ML IVPB SCH (11:43)
[2017-12-05 14:19] VITALS: BP 94/55; TEMP 98.2
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
--- NOTE | 2017-12-05 14:29 | XR ---
EXAMINATION TYPE: XR chest 2V DATE OF EXAM: 12/05/2017 COMPARISON: Chest x-ray from 4 days ago and older studies. CT chest March 23, 2017.. HISTORY: Bilateral pneumonia. TECHNIQUE: Frontal and lateral views of the chest are obtained. FINDINGS: There is some chronic interstitial changes most prominent in the bases without suspicious new focal air space opacity, pleural effusion, or pneumothorax seen. The cardiac silhouette size is upper limits of normal. Underlying scoliosis in the lumbar spine is redemonstrated. IMPRESSION: Interstitial changes without new acute infiltrate.
[2017-12-05 15:38] VITALS: PULSE 100
[2017-12-05] MEDS: LEVOFLOXACIN 750 MG TAB PO SCH (15:38)
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
== END 2017-12-05 16:45 | disposition home or self-care (01) | DRG 166 ==
LOC: EC 00:43 → 4MS4W 05:58 → 6PED 11-26 18:07
PROVIDERS: ADMIT Hospitalist; ATTEND Hospitalist
PROC: 0B9D8ZX Drainage of Right Middle Lung Lobe, Via Natural or Artificial Opening Endoscopic, Diagnostic (ICD-10-PCS; principal; 2017-11-30 13:50)
DX: J15.6 Pneumonia due to other Gram-negative bacteria (principal); J96.01 Acute respiratory failure with hypoxia; J44.0 Chronic obstructive pulmonary disease with (acute) lower respiratory infection; J44.1 Chronic obstructive pulmonary disease with (acute) exacerbation; Z68.41 Body mass index [BMI] 40.0-44.9, adult; F17.210 Nicotine dependence, cigarettes, uncomplicated; E03.9 Hypothyroidism, unspecified; E66.01 Morbid (severe) obesity due to excess calories; E87.70 Fluid overload, unspecified; F41.9 Anxiety disorder, unspecified; G47.33 Obstructive sleep apnea (adult) (pediatric); I10 Essential (primary) hypertension; J84.10 Pulmonary fibrosis, unspecified; K21.9 Gastro-esophageal reflux disease without esophagitis; Y08.89XS Assault by other specified means, sequela; Z79.899 Other long term (current) drug therapy; Z79.890 Hormone replacement therapy; Z80.3 Family history of malignant neoplasm of breast; Z82.49 Family history of ischemic heart disease and other diseases of the circulatory system; Z82.5 Family history of asthma and other chronic lower respiratory diseases; Z88.1 Allergy status to other antibiotic agents; Z91.030 Bee allergy status
CPT/HCPCS: 31624; 36415; 71045; 71046; 80048; 80053; 80202; 81003; 81025; 82550; 82553; 83605; 84484; 85025; 85610; 85730; 86738; 87040; 87070; 87102; 87116; 87205; 87206; 87252; 87324; 87449; 87496; 87498; 87502; 87529; 87634; 87798; 88108; 88305; 93005; 93306; 94640; 94760; 96360; 99285

== ENCOUNTER → 2018-01-16 | Outpatient (CLI) | payer BC ==
[2018-01-16 13:15] VITALS: BMI 45.4
== END | disposition home or self-care (01) ==
LOC: BARWHC3 09:02
PROVIDERS: ATTEND Surgery
DX: E66.01 Morbid (severe) obesity due to excess calories (principal); Z68.42 Body mass index [BMI] 45.0-49.9, adult; Z71.3 Dietary counseling and surveillance
CPT/HCPCS: 97804

== ENCOUNTER → 2018-02-20 | Outpatient (CLI) | payer BC ==
[2018-02-20 14:27] VITALS: BP 160/91; PULSE 106; TEMP 98.2; BMI 44.9
--- NOTE | 2018-02-20 15:14 | P.HPBAR ---
Bariatric H&P - History & Physicial H&P Date: 02/20/18 History & Physicial: Visit/CC: review & sign consent/obtain PAT lab order Patient initial contact: Initial weight: 109.769 kg Initial weight in pounds: 242.00 Height: 5 ft 1 in Initial BMI: 45.7 Last weight: Current weight: 107.683 kg Current weight in pounds: 237.40 Current BMI: 44.9 [place] body weight (based on NIH guidelines): 47.627 kg Excess body weight loss: 3.3% The patient is a 42 year-old F who presents for Bariatric Assessment. The patient presents for gastric sleeve consultation. She is ready to be scheduled for surgery. The patient has a good understanding of surgery. We went over the risks and complications of gastric sleeve surgery including conversion to the open procedure and injury to the stomach liver spleen. Her BMI is 45. Past Medical History Past Medical History: Asthma, COPD, GERD/Reflux, Hypertension, Sleep Apnea/CPAP/ BIPAP, Thyroid Disorder Additional Past Medical History / Comment(s): COPD, smoking-related interstitial lung disease, obstructive sleep apnea, morbid obesity, history of seizure disorder the age of 16 related to diet pills, endometriosis, chronic back pain, plantar fasciitis, Tran history of Achilles tendinitis, probably antibiotic induced. She also has history of hypothyroidism, ALLERGIC rhinitis History of Any Multi-Drug Resistant Organisms: None Reported Past Surgical History: Tubal Ligation Additional Past Surgical History / Comment(s): LEEP PROCEDURE X 2, EGD, BACK INJECTIONS FOR PAIN. The patient has also undergone thoracic/thoracoscopic wedge biopsy of the lung. Past Anesthesia/Blood Transfusion Reactions: Motion Sickness Past Psychological History: Anxiety Additional Psychological History / Comment(s): and lives with family home with her . Does not work outside of the home at this time. Adult children. His noted mother has just passed and there is not a lot of stress related to that and has restarted smoking, she does have underlying COPD as well as sleep apnea and is aware that smoking is not a good choice for her. No experience. Some international travel. No animal exposures. They have been working on getting up at mother's home and does have exposure to that environment. Smoking Status: Former smoker Past Alcohol Use History: Occasional Additional Past Alcohol Use History / Comment(s): STARTED SMOKING AT AGE 14 - STOPPED SMOKING on November 23, 2017. (Heaviest smoking amount was 3/4 pack/day) Past Drug Use History: None Reported - Past Family History Father Family Medical History: Congestive Heart Failure (CHF), COPD Additional Family Medical History / Comment(s): from heart attack Mother Family Medical History: Cancer, COPD Additional Family Medical History / Comment(s): breast cancer Surgical - Exam Vital Signs Temp Pulse BP 98.2 F 106 H 160/91 02/20/18 14:22 02/20/18 14:22 02/20/18 14:22 - General well developed, no distress - Eyes PERRL - ENT normal pinna - Neck no masses - Respiratory normal expansion - Cardiovascular Rhythm: regular - Abdomen Abdomen: soft, non tender Bariatric Assessment & Plan Plan: RBC with BMI 45. Patient will be scheduled for sleeve gastrectomy. Bariatric Checklist Checklist: Plan: Checklist: EGD: 1. Hiatal hernia: 2. H. Pylori: HgbA1c: Vitamin D: Smoking: Former smoker Primary care physician referral: dr. alvarez Psychiatry clearance: Cardiology clearance: Sleep study: Diet journal: VTE risk score: VTE risk level: Rehab needs at discharge:
== END | disposition home or self-care (01) ==
LOC: BARWHC3 14:07
PROVIDERS: ATTEND Surgery
DX: Z71.3 Dietary counseling and surveillance (principal); E66.01 Morbid (severe) obesity due to excess calories; Z68.41 Body mass index [BMI] 40.0-44.9, adult; Z87.891 Personal history of nicotine dependence
CPT/HCPCS: 99211

== ENCOUNTER → 2018-02-20 | Outpatient (CLI) | payer BC ==
[2018-02-20 15:44] LABS: Basophils # (A) 0.1 k/uL (0-0.2); Basophils % (A) 1 %; Eosinophils # (A) 0.5 k/uL (0-0.7); Eosinophils % (A) 4 %; HCT 41.8 % (34.0-46.0); HGB 13.8 gm/dL (11.4-16.0); Lymphocytes # (A) 2.2 k/uL (1.0-4.8); Lymphocytes % (A) 19 %; MCH 29.5 pg (25.0-35.0); MCV 89.5 fL (80.0-100.0); Mean Platelet Volume 6.9; Monocytes # (A) 0.6 k/uL (0-1.0); Monocytes % (A) 5 %; Neutrophils # (A) 8.4 k/uL (1.3-7.7); Neutrophils % (A) 70 %; Platelet Count 304 k/uL (150-450); RBC 4.66 m/uL (3.80-5.40); RDW 14.3 % (11.5-15.5); WBC 11.9 k/uL (3.8-10.6)
[2018-02-20 16:07] LABS: ALT 32 U/L (9-52); AST 45 U/L (14-36); Alkaline Phosphatase 71 U/L (38-126); Anion Gap 6 mmol/L; Blood Urea Nitrogen 15 mg/dL (7-17); Calcium 9.3 mg/dL (8.4-10.2); Carbon Dioxide 25 mmol/L (22-30); Chloride 108 mmol/L (98-107); Glucose 86 mg/dL (74-99); Potassium 4.9 mmol/L (3.5-5.1); Sodium 139 mmol/L (137-145); Total Bilirubin 0.8 mg/dL (0.2-1.3); Total Protein 7.3 g/dL (6.3-8.2)
== END | disposition home or self-care (01) ==
LOC: LABPAT 15:10
PROVIDERS: ATTEND Surgery
DX: Z01.812 Encounter for preprocedural laboratory examination (principal)
CPT/HCPCS: 36415; 80053; 85025

== ENCOUNTER 2018-03-06 08:00 | Inpatient (IN) | payer BC ==
[~2018-03-06 08:00] MED LIST changes: +DEXAMETHASONE SOD PHOSPHATE 10 MG/ML 1 ML VIAL IV ONE; +ENOXAPARIN 40 MG/0.4 ML SYRINGE SQ ONE; -LACTATED RINGERS 1,000 ML IV SCH; -LIDOCAINE 1% 20 ML VIAL (10MG/ML) FOR IV START INTRADERMA PRN; +MIDAZOLAM 2 MG/2 ML VIAL IV PRN; +ONDANSETRON 4 MG/2 ML VIAL IVP ONE; +SCOPOLAMINE 1.5MG/72HR PATCH TRANSDERM ONE; +ceFAZolin IN SWFI 2 GM/20 ML SYRINGE IVP ONE
[2018-03-06] MEDS ORDERED: METHYLENE BLUE 30 MG in DEXTROSE 5% IN WATER 500 ML IRRIGATION ONE ×2 (10:07)
[2018-03-06] MEDS: LACTATED RINGERS 1,000 ML IV SCH ×3 (11:17→23:34)
--- NOTE | 2018-03-06 11:57 | P.GSHP ---
History of Present Illness H&P Date: 03/06/18 Chief Complaint: Morbid obesity This a 42 female who presents today for after scopic sleeve gastrectomy. Patient's had lifetime problems obesity. Patient is aware the risk of gastric sleeve perforation, bleeding and scarring. She is also a risk of conversion to the open procedure. Her BMI is 44 Past Medical History Past Medical History: Asthma, COPD, GERD/Reflux, Pneumonia, Sleep Apnea/CPAP/ BIPAP, Thyroid Disorder Additional Past Medical History / Comment(s): migraines, seizure age 16, smoking-related interstitial lung disease, endometriosis, chronic back and hip pain, plantar fasciitis, history of Achilles tendinitis, no cpap used, small hiatal hernia, History of Any Multi-Drug Resistant Organisms: None Reported Past Surgical History: Tubal Ligation Additional Past Surgical History / Comment(s): LEEP PROCEDURE X 2, thoracic/ thoracoscopic wedge biopsy of the lung, EGD, Past Anesthesia/Blood Transfusion Reactions: Motion Sickness Smoking Status: Former smoker - Past Family History Sister(s) Family Medical History: Cancer Father Family Medical History: Congestive Heart Failure (CHF), COPD Additional Family Medical History / Comment(s): from heart attack Mother Family Medical History: Cancer Additional Family Medical History / Comment(s): breast cancer Medications and Allergies Home Medications Medication Instructions Recorded Confirmed Type Furosemide [Lasix] 20 mg PO DAILY 01/05/14 02/23/18 History Levothyroxine Sodium [Synthroid] 50 mcg PO QAM 01/05/14 02/23/18 History Albuterol Inhaler [Ventolin Hfa 1 - 2 puff INHALATION QID PRN 08/20/14 02/23/18 History Inhaler] Cetirizine HCl [Zyrtec] 10 mg PO W/SUPPER 10/17/16 02/23/18 History Hydrocodone/Acetaminophen [[place] 1 tab PO Q8H PRN 10/17/16 02/23/18 History 10-325] Montelukast [Singulair] 10 mg PO DAILY 10/17/16 02/23/18 History Umeclidinium Brm/Vilanterol Tr 1 puff INHALATION HS 10/17/16 02/23/18 History [Anoro Ellipta 62.5-25 Mcg INH] ALPRAZolam [Xanax] 0.5 mg PO BID PRN 11/24/17 02/23/18 History Albuterol Nebulized [Ventolin 2.5 mg INHALATION Q6HR PRN 11/24/17 02/23/18 History Nebulized] Ergocalciferol [Vitamin D2 50,000 unit PO STEWART 11/24/17 02/23/18 History (DRISDOL)] Fluticasone Propionate 1 spray EA NOSTRIL DAILY PRN 11/24/17 02/23/18 History buPROPion SR [Wellbutrin SR] 150 mg PO BID 11/24/17 02/23/18 History Potassium Chloride [Klor-Con 10] 10 meq PO HS #0 12/05/17 02/23/18 Rx Bariatric Advantage Multivitam 1 tab PO DAILY 02/20/18 02/23/18 History Cyclobenzaprine [Flexeril] 10 mg PO BID PRN 02/23/18 02/23/18 History Etonogestrel [Nexplanon] 1 implant SQ [id number] 02/23/18 02/23/18 History Nascobal 500 mcg NASAL FR 02/23/18 03/06/18 History Nystatin Cream 1 applicate TOPICAL DIRECTED PRN 02/23/18 02/23/18 History Ranitidine HCl [Zantac] 75 mg PO QAM 02/23/18 02/23/18 History Sertraline [Zoloft] 50 mg PO BID 02/23/18 02/23/18 History Allergies Allergy/AdvReac Type Severity Reaction Status Date / Time bee venom protein (honey bee) Allergy Unknown Verified 03/06/18 11:03 nitrofurantoin Allergy Rash/Hives Verified 03/06/18 11:03 [From Macrobid] nitrofurantoin Allergy Rash/Hives Verified 03/06/18 11:03 macrocrystalline [From Macrobid] moxifloxacin [From Avelox] AdvReac Nausea & Verified 03/06/18 11:03 Vomiting seasonal allergies AdvReac Unknown Uncoded 03/06/18 11:03 Surgical - Exam Vital Signs Temp Pulse Resp BP Pulse Ox 99 F 99 16 142/73 94 L 03/06/18 11:12 03/06/18 11:12 03/06/18 11:12 03/06/18 11:12 03/06/18 11:12 - General well developed, no distress - Eyes PERRL - ENT normal pinna - Neck no masses - Respiratory normal expansion - Cardiovascular Rhythm: regular - Abdomen Abdomen: soft, non tender Assessment and Plan Assessment: Morbid obesity, BMI 44. We'll perform laparoscopic sleeve gastrectomy.
[2018-03-06] MEDS ORDERED: SUCCINYLCHOLINE CHLORIDE 100 MG/5 ML SYR IV ONE (12:40)
[2018-03-06] MEDS ORDERED: GLYCOPYRROLATE 0.2 MG/ML 2 ML VIAL ONE (12:40)
[2018-03-06] MEDS ORDERED: HYDROmorphone (PF) 1 MG/ML ONE (12:40)
[2018-03-06] MEDS ORDERED: NEOSTIGMINE 1 MG/ML 10 ML VIAL ONE (12:40)
[2018-03-06] MEDS ORDERED: PROPOFOL 10 MG/ML 20 ML VIAL IV ONE (12:40)
[2018-03-06] MEDS ORDERED: fentaNYL (PF) 50 MCG/ML 2 ML AMP ONE (12:40)
[2018-03-06] MEDS ORDERED: ROCURONIUM BROMIDE 10 MG/ML 10 ML VIAL IV ONE (12:40)
[2018-03-06] MEDS ORDERED: MIDAZOLAM 2 MG/2 ML VIAL ONE (12:40)
[2018-03-06] MEDS ORDERED: LIDOCAINE 1% INJ 10MG/ML (20 ML MDV) ONE (12:40)
[2018-03-06] MEDS ORDERED: BUPIVACAIN-EPI 0.25%-1:200,000 30 ML VIAL SQ ONE (13:02)
[2018-03-06] MEDS ORDERED: diphenhydrAMINE 50 MG/ML 1 ML VIAL IVP ONE (14:46)
[2018-03-06] MEDS: HYDROmorphone 1 MG/ML 1 ML SYRINGE IVP PRN ×4 (14:55→16:05)
[2018-03-06] MEDS ORDERED: NALOXONE 0.4 MG/ML 1 ML VIAL IV PRN (15:29)
--- NOTE | 2018-03-06 15:35 | P.OP ---
Date of Procedure: 03/06/18 Preoperative Diagnosis: Morbid obesity BMI 44 Postoperative Diagnosis: With obesity Procedure(s) Performed: Endoscopic sleeve gastrectomy Anesthesia: PEOLN Surgeon: Kel Nagel Estimated Blood Loss (ml): 20 Pathology: other (Stomach) Condition: stable Disposition: PACU Description of Procedure: Sonia patient was placed on the operating room table in the supine position. She received general anesthesia and then was placed in dorsal lithotomy position. Her abdomen was prepped and draped in sterile fashion. The skin incision sites were anesthetized 1% local Xylocaine. And then the skin was incised with an 11 blade in the left lateral position. Using a blade less trocar under direct visualization the peritoneal cavity was entered. The abdomen was insufflated and then a 5 mm laparoscope was placed into the peritoneal cavity. A 5 mm trocar was placed in the right epigastric, and right lateral position. A 15 mm trocar was placed in the supra-umbilical position and another 5 mm trocar was placed in the left lateral position. The left lateral lobe of the liver was retracted. The stomach was visualized. The greater curvature of the stomach was then dissected using the Harmonic scissors. The dissection occurred approximately 5 cm from the pylorus to the level of the left flory. There was no hiatal hernia seen. At this point a 40- Macedonian bougie dilator was placed the oropharynx and passed into the esophagus and into the stomach by the FRUIT [employer] VEGETABLE INSPECTOR. The sleeve gastrectomy was performed by using the powered echelon stapler with a seam guard buttress material. Sequential firings of the stapler were performed. The gastric remnant was then brought out through the 15 mm trocar site. The dilator was withdrawn. And a orogastric tube was replaced into the stomach. The stomach was insufflated with 200 mL of methylene blue normal saline. There was no evidence of extravasation. The abdomen was irrigated there is no bleeding seen. The Gurvinder -Shila device was used to close the 15 mm trocar with 0 Vicryl. Skin was closed with interrupted 3-0 Monocryl sutures once the trochars withdrawn. Dermabond dressing was applied. Patient was sent to recovery in stable condition.
[2018-03-06] MEDS ORDERED: SODIUM CHLORIDE 0.9% 500 ML 500 ML IV ONE (17:31)
[2018-03-06] MEDS ORDERED: LACTATED RINGERS 1,000 ML IV ONE (17:45)
[2018-03-06 18:03] LABS: Basophils # (A) 0.1 k/uL (0-0.2); Basophils % (A) 0 %; Eosinophils # (A) 0.1 k/uL (0-0.7); Eosinophils % (A) 1 %; HCT 30.8 % (34.0-46.0); Lymphocytes # (A) 1.1 k/uL (1.0-4.8); Lymphocytes % (A) 6 %; MCH 29.4 pg (25.0-35.0); MCHC 32.1 g/dL (31.0-37.0); MCV 91.7 fL (80.0-100.0); Mean Platelet Volume 7.6; Monocytes # (A) 0.4 k/uL (0-1.0); Monocytes % (A) 2 %; Neutrophils # (A) 16.4 k/uL (1.3-7.7); Neutrophils % (A) 90 %; Platelet Count 340 k/uL (150-450); RBC 3.36 m/uL (3.80-5.40); RDW 13.7 % (11.5-15.5); WBC 18.2 k/uL (3.8-10.6)
[2018-03-06 18:04] LABS: HGB 9.9 gm/dL (11.4-16.0)
[2018-03-06] MEDS: KETOROLAC 30 MG/ML 1 ML VIAL IVP SCH ×2 (18:09→23:05)
[2018-03-06] MEDS: 0.9% NACL WITH KCL 20 MEQ/L 1,000 ML IV SCH (19:04)
[2018-03-06] MEDS: ALBUTEROL NEBULIZED 2.5 MG/3 ML INHALATION SCH (19:25)
[2018-03-06] MEDS ORDERED: CYCLOBENZAPRINE 10 MG TAB PO PRN (21:42)
[2018-03-06] MEDS ORDERED: NYSTATIN 100,000UNIT/GM CREAM 30 GM TUBE TOPICAL PRN (21:42)
[2018-03-06] MEDS ORDERED: ALBUTEROL INHALER 60 PUFF/8 GM INHALER INHALATION PRN (21:42)
[2018-03-06] MEDS ORDERED: FLUTICASONE 50MCG/SPRAY NASAL 16GM EA NOSTRIL PRN (21:42)
[2018-03-06] MEDS ORDERED: ALBUTEROL NEBULIZED 2.5 MG/3 ML INHALATION PRN (21:42)
[2018-03-06 22:16] VITALS: BMI 43.7
[2018-03-06] MEDS: ONDANSETRON 4 MG/2 ML VIAL IVP PRN (22:48)
[2018-03-06] MEDS: SERTRALINE 100 MG TAB PO SCH (22:48)
[2018-03-06] MEDS: buPROPion SR 150 MG TABLET.ER PO SCH (22:48)
--- NOTE | 2018-03-06 23:45 | CONS ---
CONSULTATION DATE OF CONSULTATION: 03/06/2018. REASON FOR CONSULTATION: Medical management, requested by Dr. Nagel. CONSULTATION: This is a pleasant 42-year-old patient of Dr. Carlisle from [place]. Chronic stable medical conditions include COPD, GERD, hypothyroid, chronic back and hip pain from arthritis and plantar fasciitis. Also has obstructive sleep apnea, does not use a CPAP machine. The patient did undergo sleeve gastrectomy today by Dr. Nagel. Has some pain at the operative site. No nausea or vomiting. Lying in bed. REVIEW OF SYSTEMS: CONSTITUTIONAL: None. HEENT: None. RESPIRATORY: Baseline occasional wheezing. GASTROINTESTINAL: Heartburn. GENITOURINARY: None. MUSCULOSKELETAL: Chronic back and hip pain. DERMATOLOGICAL: None. HEMATOLOGIC: None. LYMPHATIC: None. PSYCHIATRY: None. NEUROLOGIC: None. PAST MEDICAL HISTORY: Past history of COPD, GERD, sleep apnea, does not use CPAP, hypothyroid, seizure at age of 16, endometriosis, chronic back and hip pain, plantar fasciitis. PAST SURGICAL HISTORY: Tubal ligation, LEEP procedure, wedge biopsy of the lung. PSYCH: History of anxiety. SOCIAL HISTORY: The patient smoked less than a pack a day for 28 years, stopped 3 months ago. . Alcohol occasionally. FAMILY HISTORY: Breast cancer. HOME MEDICATIONS: 1. Wellbutrin SR 150 mg b.i.d. 2. Anoro Ellipta 62.5/25 one puff at bedtime. 3. Zoloft 30 mg b.i.d. 4. Zantac 75 mg p.o. daily. 5. Potassium 10 mEq at bedtime. 6. Nystatin cream topical p.r.n. 7. Singulair 10 mg p.o. daily. 8. Synthroid 50 mcg p.o. daily. 9. [place] 10 one tablet p.o. b.i.d. p.r.n. 10.Lasix 20 mg p.o. daily. 11.Fluticasone 1 spray each nostril daily p.r.n. 12.Nexplanon implant subcutaneously. 13.Vitamin D2, 50,000 units on Tuesday. 14.Flexeril 10 mg p.o. b.i.d. p.r.n. 15.Zyrtec 10 mg p.o. with supper. 16.Geriatric Advantage multivitamin tab p.o. daily. 17.Ventolin 2.5 q.i.d. p.r.n. 18.Ventolin HFA 1 to 2 puffs q.i.d. p.r.n. 19.Xanax 0.5 p.o. b.i.d. p.r.n. ALLERGIES: BEE VENOM, MICROBID, AVELOX, SEASONAL ALLERGIES. PHYSICAL EXAMINATION: Temperature 97.7, pulse 110, respirations 18, blood pressure 85/50, pulse 99% on 2 liters. GENERAL APPEARANCE: Well built, BMI 43.8. Lying in bed comfortable. EYES: Pupils equal. Conjunctivae normal. HEENT: External nose and ears normal. Oral cavity normal. NECK: JVD unable to assess. Mass not palpable. Respiratory effort normal. LUNGS: Decreased breath sounds. CARDIOVASCULAR: 1st and 2nd heart sounds. No edema. ABDOMEN: Soft. Mild tenderness. No guarding or rigidity. Liver and spleen not palpable. Bowel sounds are present. LYMPHATIC: No lymph node palpable in the neck or axillae. PSYCHIATRY: Alert and oriented x3. Mood and affect normal. NEUROLOGIC: Pupils equal. Cranial nerves grossly intact. Power and sensation grossly intact. INVESTIGATIONS: White count 18.2, hemoglobin 9.9. The patient's hemoglobin was 13.8 on 02/20/2018. ASSESSMENT: 1. Sleeve gastrectomy. 2. Postop hypotension, appears to be some blood loss. We will keep a close eye on hemodynamics. 3. Chronic obstructive pulmonary disease in an ex-smoker. 4. Gastroesophageal reflux disease. 5. Obstructive sleep apnea, does not use CPAP machine. 6. Hypothyroidism. 7. Anxiety, not otherwise specified. PLAN: Keep a close eye on patient's hemodynamics. Check the blood pressure every 4 hours for the next 24 hours. Repeat hemoglobin in the morning. Care was discussed with the patient. Questions were answered. Thank you, Dr. Nagel. MMMURTAZAL / RIYAN: [id number] /
[2018-03-07] MEDS ORDERED: ENOXAPARIN 40 MG/0.4 ML SYRINGE SQ SCH ×2 (01:29→09:00)
[2018-03-07] MEDS: ALPRAZolam 0.5 MG TAB PO PRN (01:42)
[2018-03-07] MEDS: 0.9% NACL WITH KCL 20 MEQ/L 1,000 ML IV SCH ×4 (03:43→23:26)
[2018-03-07] MEDS: KETOROLAC 30 MG/ML 1 ML VIAL IVP SCH ×3 (05:29→17:50)
[2018-03-07] MEDS: LEVOTHYROXINE 50 MCG TAB PO SCH (05:29)
[2018-03-07] MEDS: LACTATED RINGERS 1,000 ML IV SCH (05:35)
[2018-03-07 07:39] LABS: Basophils % (A) 0 %; Eosinophils % (A) 0 %; HCT 26.3 % (34.0-46.0); HGB 8.8 gm/dL (11.4-16.0); Lymphocytes # (A) 2.1 k/uL (1.0-4.8); Lymphocytes % (A) 14 %; MCH 30.8 pg (25.0-35.0); MCHC 33.5 g/dL (31.0-37.0); MCV 91.9 fL (80.0-100.0); Mean Platelet Volume 7.2; Monocytes # (A) 0.9 k/uL (0-1.0); Monocytes % (A) 6 %; Neutrophils # (A) 11.9 k/uL (1.3-7.7); Neutrophils % (A) 79 %; Platelet Count 303 k/uL (150-450); RBC 2.86 m/uL (3.80-5.40); RDW 14.1 % (11.5-15.5); WBC 15.2 k/uL (3.8-10.6)
[2018-03-07 07:48] LABS: Anion Gap 10 mmol/L; Blood Urea Nitrogen 14 mg/dL (7-17); Calcium 8.2 mg/dL (8.4-10.2); Carbon Dioxide 22 mmol/L (22-30); Chloride 108 mmol/L (98-107); Magnesium 1.7 mg/dL (1.6-2.3); Phosphorus 4.2 mg/dL (2.5-4.5); Potassium 4.6 mmol/L (3.5-5.1); Sodium 140 mmol/L (137-145)
[2018-03-07] MEDS ORDERED: HYDROmorphone 1 MG/ML 1 ML SYRINGE IVP STA (08:12)
[2018-03-07] MEDS: ALBUTEROL NEBULIZED 2.5 MG/3 ML INHALATION SCH ×4 (08:15→20:36)
--- NOTE | 2018-03-07 08:31 | P.PN ---
Progress Note - Text Progress Note Date: 03/07/18 Patient is resting in her bed. She has complaints of some epigastric pain. The patient had some hypotension last night which was corrected with fluid boluses. She's had good urinary output. On exam her vital signs appear roughly stable. She has some mild tachycardia. Her hemoglobin is 8.8. After fluid boluses. A she'll undergo esophagram this morning. She most likely has had bleeding from the gastric staple line. She'll be observed closely.
[2018-03-07] MEDS: SIMETHICONE 40 MG/0.6 ML DROPS 2,000 MG/30 ML BOTTLE PO PRN ×2 (09:00→17:43)
[2018-03-07] MEDS: FAMOTIDINE 20 MG TAB PO SCH (09:01)
[2018-03-07] MEDS: PANTOPRAZOLE 40 MG/10 ML VIAL IV SCH (09:01)
[2018-03-07] MEDS: SERTRALINE 100 MG TAB PO SCH ×2 (09:01→21:06)
[2018-03-07] MEDS: FUROSEMIDE 20 MG TAB PO SCH (09:01)
[2018-03-07] MEDS: MONTELUKAST 10 MG TAB PO SCH (09:01)
[2018-03-07] MEDS: MULTIVITAMINS, THERA 1 EACH TAB PO SCH (09:02)
[2018-03-07] MEDS: ONDANSETRON 4 MG/2 ML VIAL IVP PRN (09:07)
[2018-03-07] MEDS: buPROPion SR 150 MG TABLET.ER PO SCH ×2 (09:07→21:07)
--- NOTE | 2018-03-07 10:37 | FL ---
EXAMINATION TYPE: FL UGI DATE OF EXAM: 03/07/2018 COMPARISON: NONE HISTORY: Post gastric sleeve. TECHNIQUE: A single contrast UGI study is performed. 1 minute and 30 seconds of fluoroscopy time was utilized with 12 images saved. FINDINGS: The patient swallowed contrast without difficulty or delay. Esophageal peristalsis is wit hin normal limits. There is delayed motility of the distal esophagus with delayed flow of contrast al raquel the diaphragmatic hiatus into proximal stomach and subsequent flow into gastric sleeve. There is good flow from distal sleeve into pylorus and duodenal sweep. Patient remains asymptomatic. There is no evidence of contrast extravasation to suggest leak. IMPRESSION: No evidence of leak status post recent gastric sleeve surgery. Moderate obstruction with delayed passage of contrast from the distal esophagus through the gastroesophageal junction.
--- NOTE | 2018-03-07 13:27 | CDI ---
Last Revision, March 2017 Documentation Clarification Form Date: 03/07/2018 1:20:29 PM From: Mayra KwokGREGORIA, CCDS Admit Date: 03/06/2018 10:49:00 AM Patient Name: Laura Rangel Visit Number: [id number] Discharge Date: ATTENTION: The Clinical Documentation Specialists (CDI) and [facility] Coding Staff appreciate your assistance in clarifying documentation. Please respond to the clarification below the line at the bottom and electronically sign. The CDI & [facility] Coding staff will review the response and follow-up if needed. Please note: Queries are made part of the Legal Health Record. If you have any questions, please contact the author of this message via ITS. Christophe Perez MD: Postop hypotension, appears to be some blood loss is documented in the medical management consult. Patients Admitting Diagnosis: Morbid obesity w/BMI >40 Post-Operative Diagnosis: Same Procedure performed: Sleeve Gastrectomy History/Risk Factors: COPD, former smoker, GERD, SABRA, Hypothyroidism, OA multiple joints, Anxiety nos. Clinical Indicators: BP 142/73 - 92/58 - 100/66 Treatment: IV Kefzol, Lovenox sq, IV Decadron, IV Dilaudid, IV Toradol, IV Kcl, Albuterol INH, IV bolus lactated ringers. In order to accurately reflect this patients severity of illness, please clarify if the postop hypotension is: An expected post-procedural or post-surgical condition; An unexpected post-procedural or post-surgical condition related to surgical care; Other, please specify Unable to determine ____ see note from today __ MTDD
--- NOTE | 2018-03-07 13:40 | P.PN ---
Subjective Progress Note Date: 03/07/18 42-year-old seen in a postop visit events noted during the night. Became hypotensive and did receive a fluid bolus current blood pressure 100/66 heart rate in the 90s to 110 denies chest pain dizziness lightheadedness or shortness of breath white count 15.2 hemoglobin 8.8 surgical dressing sites dry abdomen soft surgical tenderness appropriate nondistended indwelling De La Rosa catheter in place heart rate 90-110 blood [id number] Status post sleeve gastrectomy for morbid obesity done on March 06 Objective - Vital Signs Vital signs: Vital Signs Temp 98.3 F 03/07/18 12:43 Pulse 113 H 03/07/18 12:43 Resp 18 03/07/18 12:43 BP 100/66 03/07/18 12:43 Pulse Ox 93 L 03/07/18 12:43 Intake & Output 03/06/18 03/07/18 03/07/18 18:59 06:59 18:59 Intake Total 1201 1240 Output Total 20 500 400 Balance 1181 740 -400 Weight 105.1 kg 105.1 kg 105.1 kg Intake: IV 1201 Intake, IV Titration 1000 Amount Lactated Ringers 1,000 ml 1000 @ 999 mls/hr IV .Q1H1M ONE Rx#:[id number] Oral 240 Output: Urine 500 400 Uretheral (De La Rosa) 400 Estimated Blood Loss 20 Other: Voiding Method Indwelling Catheter - Exam Physical exam 42-year-old female sitting up on the edge of the bed receiving respiratory treatment denies dizziness lightheadedness chest pain or shortness of breath Lungs adequate air movement bilaterally sats are 92% on 2 L Heart S1-S2 audible mildly tachycardic heart rate 100- 110 denying chest pain Abdomen obese soft surgical dressing sites dry few hypoactive bowel tones no reports of nausea vomiting tolerating clear liquid nondistended indwelling De La Rosa catheter in place Extremities no edema - Labs CBC & Chem 7: 03/07/18 07:10 03/07/18 07:10 Labs: Abnormal Lab Results - Last 24 Hours (Table) 03/06/18 03/07/18 03/07/18 Range/Units 17:47 07:10 07:10 WBC 18.2 H 15.2 H (3.8-10.6) k/uL RBC 3.36 L 2.86 L (3.80-5.40) m/uL Hgb 9.9 L D 8.8 L (11.4-16.0) gm/dL Hct 30.8 L 26.3 L (34.0-46.0) % Neutrophils # 16.4 H 11.9 H (1.3-7.7) k/uL Chloride 108 H (98-107) mmol/L Calcium 8.2 L (8.4-10.2) mg/dL Assessment and Plan Assessment: Impression Morbid obesity BMI 44 due to excess calories Sleep apnea with BiPAP support Postop March 06 sleeve gastrectomy for morbid obesity Postop unexpected hypotension corrected with fluid bolus with tachycardia likely due to bleeding from the gastric staple line Postop anemia unexpected likely due to bleeding from the gastric staple line Plan Continue postop bariatric care Clear liquid diet bariatric Pain control Remove indwelling De La Rosa catheter Repeat labs DVT and GI prophylaxis The above impression and plan of care have been discussed and directed by signing physician. Renetta Veronica nurse practitioner acting as scribe for signing physician.
[2018-03-07] MEDS: HYDROmorphone 1 MG/ML 1 ML SYRINGE IVP PRN ×2 (14:06→21:27)
[2018-03-07 16:41] LABS: Basophils % (A) 0 %; Eosinophils % (A) 0 %; HCT 24.1 % (34.0-46.0); HGB 7.9 gm/dL (11.4-16.0); Lymphocytes # (A) 2.9 k/uL (1.0-4.8); Lymphocytes % (A) 24 %; MCH 30.2 pg (25.0-35.0); MCHC 32.8 g/dL (31.0-37.0); Mean Platelet Volume 6.9; Monocytes # (A) 0.9 k/uL (0-1.0); Monocytes % (A) 8 %; Neutrophils # (A) 8.2 k/uL (1.3-7.7); Neutrophils % (A) 66 %; Platelet Count 267 k/uL (150-450); RBC 2.62 m/uL (3.80-5.40); RDW 14.2 % (11.5-15.5); WBC 12.4 k/uL (3.8-10.6)
[2018-03-07] MEDS: LORATADINE 10 MG TAB PO SCH (17:50)
[2018-03-07] MEDS: IPRATROPIUM 0.5 MG/2.5 ML NEBU INHALATION SCH (20:36)
[2018-03-07] MEDS: POTASSIUM CHLORIDE ER 10 MEQ TAB.ER.PRT PO SCH (21:05)
--- NOTE | 2018-03-07 21:49 | PN ---
PROGRESS NOTE DATE OF SERVICE: 03/07/18. PRESENTING COMPLAINT: Sleeve gastrectomy. INTERVAL HISTORY: Patient is status post sleeve gastrectomy. The patient did drop hemoglobin. Blood pressure is running a bit low and tachycardic. Some upper abdominal pain. The upper EGD came back to be fine. The patient did get some fluids because of the low blood pressure. Sitting up. The patient is on a bariatric diet. REVIEW OF SYSTEMS: Done for constitutional, cardiovascular, GI, pulmonary; relevant findings as above. CURRENT MEDICATIONS: Reviewed. PHYSICAL EXAMINATION: Temperature 98.3, pulse 113, respiratory 18, blood pressure 100/66, pulse ox 93 percent on 2 L. GENERAL APPEARANCE: Sitting up a bit tired, awake. EYES: Pupils equal. Conjunctivae normal. HEENT: External appearance of nose and ears normal. Oral cavity normal. NECK: JVD unable to assess. Mass not palpable. RESPIRATORY: Effort normal. Lungs, decreased breath sounds. CARDIOVASCULAR: First and second sounds, no edema. ABDOMEN: Upper abdominal tenderness. No guarding or rigidity. Liver and spleen not palpable. PSYCHIATRY: Alert and oriented x3. Mood and affect normal. INVESTIGATIONS: White count 15.2, hemoglobin 8.8, potassium 4.6. ASSESSMENT: 1. Sleeve gastrectomy. 2. Postop hypotension from acute blood loss. 3. Chronic obstructive pulmonary disease in an ex-smoker. 4. Gastroesophageal reflux disease. 5. Obstructive sleep apnea does not use CPAP machine. 6. Hypothyroidism. 7. Anxiety, not otherwise specified. 8. Acute postop anemia possibly expected from surgery. 9. Anxiety. 10.Hypothyroidism. 11.Obstructive sleep apnea does not use CPAP. 12.Gastroesophageal reflux disease. 13.Chronic obstructive pulmonary disease in an ex-smoker. PLAN: I talked to Dr. Nagel. We will keep a close eye on the H and H. Repeat hemoglobin later this afternoon. Keep the IV fluids running. Care was discussed with the patient. IV fluid supplementation to continue. Will follow. MMODL / IJN: [id number] /
[2018-03-08] MEDS: KETOROLAC 30 MG/ML 1 ML VIAL IVP SCH ×3 (01:00→14:29)
[2018-03-08] MEDS: LEVOFLOXACIN 500MG-D5W PMX 500 MG in DEXTROSE/WATER 1 100ML.BAG IVPB SCH ×2 (01:29→16:55)
[2018-03-08] MEDS: HYDROmorphone 1 MG/ML 1 ML SYRINGE IVP PRN ×4 (04:42→22:31)
[2018-03-08] MEDS: SIMETHICONE 40 MG/0.6 ML DROPS 2,000 MG/30 ML BOTTLE PO PRN ×4 (04:42→22:29)
[2018-03-08] MEDS: LEVOTHYROXINE 50 MCG TAB PO SCH (05:35)
[2018-03-08] MEDS: 0.9% NACL WITH KCL 20 MEQ/L 1,000 ML IV SCH ×2 (05:36→08:54)
[2018-03-08] MEDS ORDERED: BISACODYL 5 MG TABLET.DR PO PRN (08:00)
[2018-03-08 08:41] LABS: Basophils % (A) 0 %; Eosinophils # (A) 0.2 k/uL (0-0.7); Eosinophils % (A) 2 %; HCT 24.8 % (34.0-46.0); HGB 8.4 gm/dL (11.4-16.0); Lymphocytes # (A) 2.3 k/uL (1.0-4.8); Lymphocytes % (A) 22 %; MCH 30.9 pg (25.0-35.0); MCHC 33.8 g/dL (31.0-37.0); MCV 91.5 fL (80.0-100.0); Mean Platelet Volume 7.3; Monocytes # (A) 0.5 k/uL (0-1.0); Monocytes % (A) 5 %; Neutrophils % (A) 68 %; Platelet Count 253 k/uL (150-450); RBC 2.71 m/uL (3.80-5.40); RDW 14.2 % (11.5-15.5); WBC 10.2 k/uL (3.8-10.6)
[2018-03-08] MEDS: FUROSEMIDE 20 MG TAB PO SCH (08:52)
[2018-03-08] MEDS: PANTOPRAZOLE 40 MG/10 ML VIAL IV SCH (08:52)
[2018-03-08] MEDS: FAMOTIDINE 20 MG TAB PO SCH (08:52)
[2018-03-08] MEDS: MONTELUKAST 10 MG TAB PO SCH (08:52)
[2018-03-08] MEDS: SERTRALINE 100 MG TAB PO SCH ×2 (08:53→20:33)
[2018-03-08] MEDS: buPROPion SR 150 MG TABLET.ER PO SCH ×2 (08:53→20:34)
[2018-03-08] MEDS: MULTIVITAMINS, THERA 1 EACH TAB PO SCH (08:53)
[2018-03-08 08:56] LABS: Anion Gap 7 mmol/L; Blood Urea Nitrogen 10 mg/dL (7-17); Calcium 7.9 mg/dL (8.4-10.2); Carbon Dioxide 21 mmol/L (22-30); Chloride 112 mmol/L (98-107); Glucose 81 mg/dL (74-99); Potassium 4.7 mmol/L (3.5-5.1); Sodium 140 mmol/L (137-145)
[2018-03-08] MEDS: ALBUTEROL NEBULIZED 2.5 MG/3 ML INHALATION SCH ×4 (09:13→19:55)
[2018-03-08] MEDS: IPRATROPIUM 0.5 MG/2.5 ML NEBU INHALATION SCH ×2 (09:13→19:55)
[2018-03-08] MEDS: ALPRAZolam 0.5 MG TAB PO PRN ×2 (09:42→22:29)
[2018-03-08] MEDS: ONDANSETRON 4 MG/2 ML VIAL IVP PRN ×2 (09:42→17:06)
--- NOTE | 2018-03-08 16:20 | PN ---
PROGRESS NOTE DATE OF SERVICE: 03/08/2018 PRESENTING COMPLAINT: Sleeve gastrectomy. INTERVAL HISTORY: Patient is status post sleeve gastrectomy. Did drop her hemoglobin from some oozing. Did receive some blood yesterday evening. Patient had some bleeding at her naval site, has a pressure dressing on the same. Overall feels better today. Did take some fluids in the morning followed by bouts of coughing. REVIEW OF SYSTEMS: Done for constitutional, cardiovascular, GI, pulmonary; relevant findings as above. CURRENT MEDICATIONS: Reviewed. Patient is empirically on IV Levaquin. PHYSICAL EXAMINATION: Temperature 98.9, pulse 96, respiration 18, blood pressure 108/54, pulse ox 99% on 2 L. GENERAL APPEARANCE: Sitting on the edge of bed, looking better today. EYES: Pupils equal. Conjunctivae normal. HEENT: External appearance of nose and ears normal. Oral cavity normal. NECK: JVD unable to assess. Mass not palpable. RESPIRATORY: Effort normal. LUNGS: Slightly decreased breath sounds. CARDIOVASCULAR: First and second sounds normal. No edema. ABDOMEN: Dressing in place. Some tenderness. No guarding or rigidity. Some tenderness is present. PSYCHIATRY: Alert and oriented x3. Mood and affect normal. INVESTIGATIONS: White count 10.2, hemoglobin 8.4. ASSESSMENT: 1. Sleeve gastrectomy. 2. Postoperative hypotension from acute blood loss. 3. Chronic obstructive pulmonary disease in an ex-smoker. 4. Gastroesophageal reflux disease. 5. Obstructive sleep apnea. Does not use CPAP machine. 6. Hypothyroidism. 7. Anxiety not otherwise specified. 8. Acute postoperative anemia, possibly expected from surgery. 9. Anxiety. 10.Hypothyroidism. PLAN: Patient is looking much better today. Did get a unit of blood yesterday. Continue current medication and treatment plan. She is on a bariatric diet. Repeat a CBC in the morning. MMODL / IJN: [id number] /
[2018-03-08] MEDS: LORATADINE 10 MG TAB PO SCH (16:55)
--- NOTE | 2018-03-08 18:39 | P.PN ---
Progress Note - Text Progress Note Date: 03/08/18 Patient's resting comfortably in bed. Her hemoglobin has been stable. She states her pain is a 2-10. She's had some mild nausea today. On exam her vital signs are stable. Her abdomen soft. There is some minimal bloody drainage from her umbilicus. Status post sleeve gastrectomy with postoperative bleeding from gastric sleeve. Patient's he will was stable. Weight despite discharged home tomorrow.
[2018-03-08] MEDS: POTASSIUM CHLORIDE ER 10 MEQ TAB.ER.PRT PO SCH (20:34)
[2018-03-09 02:11] VITALS: RESP 16
[2018-03-09] MEDS: 0.9% NACL WITH KCL 20 MEQ/L 1,000 ML IV SCH (03:33)
[2018-03-09] MEDS: HYDROmorphone 1 MG/ML 1 ML SYRINGE IVP PRN ×3 (04:33→14:14)
[2018-03-09] MEDS: LEVOTHYROXINE 50 MCG TAB PO SCH (05:32)
[2018-03-09 07:14] VITALS: BP 119/76; TEMP 98.9
[2018-03-09] MEDS: ALBUTEROL NEBULIZED 2.5 MG/3 ML INHALATION SCH ×3 (09:21→17:05)
[2018-03-09 09:25] LABS: Anion Gap 4 mmol/L; Blood Urea Nitrogen 5 mg/dL (7-17); Calcium 8.3 mg/dL (8.4-10.2); Carbon Dioxide 26 mmol/L (22-30); Chloride 111 mmol/L (98-107); Glucose 70 mg/dL (74-99); Potassium 4.6 mmol/L (3.5-5.1); Sodium 141 mmol/L (137-145)
[2018-03-09] MEDS: IPRATROPIUM 0.5 MG/2.5 ML NEBU INHALATION SCH (09:26)
[2018-03-09 09:37] VITALS: PULSE 100
--- NOTE | 2018-03-09 10:29 | P.DS ---
Providers Date of admission: 03/06/18 10:49 Expected date of discharge: 03/09/18 Attending physician: Kel Nagel Consults: 03/06/18 15:29 Consult Physician Routine Consulting Provider: Christophe Meeks Consult Reason/Comments: Medical management Do you want consulting provider notified?: Yes Primary care physician: Stated None Hospital Course: This a 42-year-old female who underwent sleeve yesterday. Patient developed postoperative bleeding along her sleeve gastrectomy site. Trocar and one unit of blood transfusion. Patient did well postoperatively please see chart for details. Procedures: Laparoscopic sleeve gastrectomy Patient Condition at Discharge: Good Plan - Discharge Summary Discharge Rx Participant: No New Discharge Prescriptions: New Bisacodyl [Dulcolax] 5 mg PO DAILY PRN #10 tablet.dr PRN Reason: Constipation Ondansetron Odt [Zofran Odt] 4 mg PO Q8HR PRN #9 tab PRN Reason: Nausea Simethicone 40 mg/0.6 ml Drops [Mylicon Drops] 40 mg PO PCHS PRN #30 ml PRN Reason: Gas Docusate [Colace] 100 mg PO BID #20 capsule HYDROcodone/APAP 7.5-325MG [[place] 7.5-325] 1 tab PO Q4H PRN 3 Days #18 tab PRN Reason: Pain No Action Furosemide [Lasix] 20 mg PO DAILY Levothyroxine Sodium [Synthroid] 50 mcg PO QAM Albuterol Inhaler [Ventolin Hfa Inhaler] 1 - 2 puff INHALATION RT-QID PRN PRN Reason: sob Hydrocodone/Acetaminophen [[place] 10-325] 1 tab PO Q8H PRN PRN Reason: Pain Umeclidinium Brm/Vilanterol Tr [Anoro Ellipta 62.5-25 Mcg INH] 1 puff INHALATION RT-HS Montelukast [Singulair] 10 mg PO DAILY Cetirizine HCl [Zyrtec] 10 mg PO AC-SUPPER buPROPion SR [Wellbutrin SR] 150 mg PO BID Ergocalciferol [Vitamin D2 (DRISDOL)] 50,000 unit PO STEWART Albuterol Nebulized [Ventolin Nebulized] 2.5 mg INHALATION RT-QID PRN PRN Reason: Shortness Of Breath Fluticasone Propionate 1 spray EA NOSTRIL DAILY PRN PRN Reason: Congestion ALPRAZolam [Xanax] 0.5 mg PO BID PRN PRN Reason: Anxiety Potassium Chloride [Klor-Con 10] 10 meq PO HS #0 Bariatric Advantage Multivitam 1 tab PO DAILY Ranitidine HCl [Zantac] 75 mg PO QAM Cyclobenzaprine [Flexeril] 10 mg PO BID PRN PRN Reason: back pain Sertraline [Zoloft] 50 mg PO BID Nascobal 500 mcg NASAL FR Nystatin Cream 1 applicate TOPICAL DIRECTED PRN PRN Reason: Rash Etonogestrel [Nexplanon] 1 implant SQ [id number] Discharge Medication List Furosemide [Lasix] 20 mg PO DAILY 01/05/14 [History] Levothyroxine Sodium [Synthroid] 50 mcg PO QAM 01/05/14 [History] Albuterol Inhaler [Ventolin Hfa Inhaler] 1 - 2 puff INHALATION RT-QID PRN [History] Cetirizine HCl [Zyrtec] 10 mg PO AC-SUPPER 10/17/16 [History] Hydrocodone/Acetaminophen [[place] 10-325] 1 tab PO Q8H PRN 10/17/16 [History] Montelukast [Singulair] 10 mg PO DAILY 10/17/16 [History] Umeclidinium Brm/Vilanterol Tr [Anoro Ellipta 62.5-25 Mcg INH] 1 puff INHALATION RT-HS 10/17/16 [History] ALPRAZolam [Xanax] 0.5 mg PO BID PRN 11/24/17 [History] Albuterol Nebulized [Ventolin Nebulized] 2.5 mg INHALATION RT-QID PRN 11/24/17 [ History] Ergocalciferol [Vitamin D2 (DRISDOL)] 50,000 unit PO STEWART 11/24/17 [History] Fluticasone Propionate 1 spray EA NOSTRIL DAILY PRN 11/24/17 [History] buPROPion SR [Wellbutrin SR] 150 mg PO BID 11/24/17 [History] Potassium Chloride [Klor-Con 10] 10 meq PO HS #0 12/05/17 [Rx] Bariatric Advantage Multivitam 1 tab PO DAILY 02/20/18 [History] Cyclobenzaprine [Flexeril] 10 mg PO BID PRN 02/23/18 [History] Etonogestrel [Nexplanon] 1 implant SQ [id number] 02/23/18 [History] Nascobal 500 mcg NASAL FR 02/23/18 [History] Nystatin Cream 1 applicate TOPICAL DIRECTED PRN 02/23/18 [History] Ranitidine HCl [Zantac] 75 mg PO QAM 02/23/18 [History] Sertraline [Zoloft] 50 mg PO BID 02/23/18 [History] Bisacodyl [Dulcolax] 5 mg PO DAILY PRN #10 tablet. 03/09/18 [Rx] Docusate [Colace] 100 mg PO BID #20 capsule 03/09/18 [Rx] HYDROcodone/APAP 7.5-325MG [[place] 7.5-325] 1 tab PO Q4H PRN 3 Days #18 tab 03/09 [Rx] Ondansetron Odt [Zofran Odt] 4 mg PO Q8HR PRN #9 tab 03/09/18 [Rx] Simethicone 40 mg/0.6 ml Drops [Mylicon Drops] 40 mg PO PCHS PRN #30 ml [Rx]
[2018-03-09] MEDS: PANTOPRAZOLE 40 MG/10 ML VIAL IV SCH (10:56)
[2018-03-09] MEDS: SERTRALINE 100 MG TAB PO SCH (10:57)
[2018-03-09] MEDS: FAMOTIDINE 20 MG TAB PO SCH (10:57)
[2018-03-09] MEDS: FUROSEMIDE 20 MG TAB PO SCH (10:57)
[2018-03-09] MEDS: MONTELUKAST 10 MG TAB PO SCH (10:57)
[2018-03-09] MEDS: buPROPion SR 150 MG TABLET.ER PO SCH (10:58)
[2018-03-09] MEDS: MULTIVITAMINS, THERA 1 EACH TAB PO SCH (12:32)
--- NOTE | 2018-03-09 19:18 | PN ---
PROGRESS NOTE DATE OF SERVICE: 03/09/2018 I am covering for Dr. Meeks. This 42-year-old woman was admitted after sleeve gastrectomy is improving significantly. No chest pain. No palpitations. No fever. EXAM: Alert and oriented x3. The pulse is 108, blood pressure 119/76, respirations 16, temperature 98.2, pulse ox 100 percent on room air. HEENT: Conjunctivae normal. Oral mucosa moist. Neck is no jugular venous distention. No carotid bruit. No lymph node enlargement. CARDIOVASCULAR: S1, S2. RESPIRATORY: Breath sounds diminished in the bases. No rhonchi, no crackles. ABDOMEN: Soft, nontender. LEGS: Status post surgery. NERVOUS SYSTEM: No focal deficits. LABS: Hemoglobin 8, other labs are noted. ASSESSMENT: 1. Status post sleeve gastrectomy. 2. Postoperative hypotension from acute blood loss. 3. Chronic obstructive pulmonary disease. 4. Gastroesophageal reflux disease. 5. Sleep apnea. 6. Hypothyroidism. 7. Anxiety. 8. Acute postoperative anemia. RECOMMENDATIONS AND DISCUSSION: Continue current management and symptomatic treatment. Otherwise at this time, I recommend continue to monitor and recommend close followup with Surgery and as well as primary physician in outpatient setting. MMODL / IJN: [id number] /
[2018-03-10] MEDS ORDERED: NASCOBAL NASAL SCH (21:42)
[2018-03-12] MEDS ORDERED: ERGOCALCIFEROL 50,000 UNIT CAP PO SCH (09:00)
== END 2018-03-09 14:45 | disposition home or self-care (01) | DRG 620 ==
LOC: 2ORMAIN 10:49 → 4SSUR 14:27
PROVIDERS: ADMIT Surgery; ATTEND Surgery
PROC: 0DB64Z3 Excision of Stomach, Percutaneous Endoscopic Approach, Vertical (ICD-10-PCS; 2018-03-06)
PROC: 30233N1 Transfusion of Nonautologous Red Blood Cells into Peripheral Vein, Percutaneous Approach (ICD-10-PCS; principal; 2018-03-07)
DX: E66.01 Morbid (severe) obesity due to excess calories (principal); D62 Acute posthemorrhagic anemia; L76.22 Postprocedural hemorrhage of skin and subcutaneous tissue following other procedure; J84.9 Interstitial pulmonary disease, unspecified; I95.81 Postprocedural hypotension; E03.9 Hypothyroidism, unspecified; F41.9 Anxiety disorder, unspecified; G47.33 Obstructive sleep apnea (adult) (pediatric); J44.9 Chronic obstructive pulmonary disease, unspecified; K21.9 Gastro-esophageal reflux disease without esophagitis; M19.90 Unspecified osteoarthritis, unspecified site; Z68.41 Body mass index [BMI] 40.0-44.9, adult; Z79.899 Other long term (current) drug therapy; Z80.3 Family history of malignant neoplasm of breast; Z82.49 Family history of ischemic heart disease and other diseases of the circulatory system; Z82.5 Family history of asthma and other chronic lower respiratory diseases; Z87.891 Personal history of nicotine dependence; G43.909 Migraine, unspecified, not intractable, without status migrainosus; N80.9 Endometriosis, unspecified; Z79.890 Hormone replacement therapy; Z88.1 Allergy status to other antibiotic agents; Z91.030 Bee allergy status; M54.9 Dorsalgia, unspecified; M25.559 Pain in unspecified hip; G89.29 Other chronic pain; Z86.69 Personal history of other diseases of the nervous system and sense organs
CPT/HCPCS: 74240; 80048; 80051; 81025; 82310; 82565; 83735; 84100; 84520; 85025; 86850; 86900; 86901; 86920; 88307; 94640; 94760; 94762

== ENCOUNTER → 2018-03-13 | Outpatient (CLI) | payer BC ==
[2018-03-13 13:34] VITALS: BP 157/82; PULSE 110; TEMP 99.1; BMI 42.9
--- NOTE | 2018-03-13 17:00 | P.HPBAR ---
Bariatric H&P - History & Physicial H&P Date: 03/13/18 History & Physicial: Visit/CC: one week follow up visit Patient initial contact: Initial weight: 109.769 kg Initial weight in pounds: 242.00 Height: 5 ft 1 in Initial BMI: 45.7 Last weight: Current weight: 102.965 kg Current weight in pounds: 227.00 Current BMI: 42.9 [place] body weight (based on NIH guidelines): 47.627 kg Excess body weight loss: 10.9% The patient is a 42 year-old F who presents for Bariatric Assessment. Patient presents today for sleeve gastrectomy follow-up. She is 1 week postop. She is doing quite well. She has no real complaints. Past Medical History Past Medical History: Asthma, COPD, GERD/Reflux, Hypertension, Sleep Apnea/CPAP/ BIPAP, Thyroid Disorder Additional Past Medical History / Comment(s): COPD, smoking-related interstitial lung disease, obstructive sleep apnea, morbid obesity, history of seizure disorder the age of 16 related to diet pills, endometriosis, chronic back pain, plantar fasciitis, Tran history of Achilles tendinitis, probably antibiotic induced. She also has history of hypothyroidism, ALLERGIC rhinitis History of Any Multi-Drug Resistant Organisms: None Reported Past Surgical History: Bariatric Surgery, Tubal Ligation Additional Past Surgical History / Comment(s): LEEP PROCEDURE X 2, EGD, BACK INJECTIONS FOR PAIN. The patient has also undergone thoracic/thoracoscopic wedge biopsy of the lung. 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 Past Anesthesia/Blood Transfusion Reactions: Motion Sickness Past Psychological History: Anxiety Additional Psychological History / Comment(s): and lives with family home with her . Does not work outside of the home at this time. Adult children. His noted mother has just passed and there is not a lot of stress related to that and has restarted smoking, she does have underlying COPD as well as sleep apnea and is aware that smoking is not a good choice for her. No experience. Some international travel. No animal exposures. They have been working on getting up at mother's home and does have exposure to that environment. Smoking Status: Former smoker Past Alcohol Use History: Occasional Additional Past Alcohol Use History / Comment(s): STARTED SMOKING AT AGE 14 - STOPPED SMOKING on November 23, 2017. (Heaviest smoking amount was 3/4 pack/day) Past Drug Use History: None Reported - Past Family History Sister(s) Family Medical History: Cancer Father Family Medical History: Congestive Heart Failure (CHF), COPD Additional Family Medical History / Comment(s): from heart attack Mother Family Medical History: Cancer Additional Family Medical History / Comment(s): breast cancer Surgical - Exam Vital Signs Temp Pulse BP 99.1 F 110 H 157/82 03/13/18 13:26 03/13/18 13:26 03/13/18 13:26 - General well developed, no distress - Eyes PERRL - Neck no masses - Respiratory normal expansion - Cardiovascular Rhythm: regular - Abdomen Abdomen: soft, non tender Bariatric Assessment & Plan Plan: Status post sleeve yesterday. Patient is doing quite well. She'll follow-up in 4 weeks. Bariatric Checklist Checklist: Plan: Checklist: EGD: 1. Hiatal hernia: 2. H. Pylori: HgbA1c: Vitamin D: Smoking: Former smoker Primary care physician referral: dr. alvarez Psychiatry clearance: Cardiology clearance: Sleep study: Diet journal: VTE risk score: VTE risk level: Rehab needs at discharge:
== END | disposition home or self-care (01) ==
LOC: BARWHC3 12:36
PROVIDERS: ATTEND Surgery
DX: Z09 Encounter for follow-up examination after completed treatment for conditions other than malignant neoplasm (principal); K21.9 Gastro-esophageal reflux disease without esophagitis; G47.33 Obstructive sleep apnea (adult) (pediatric); E66.01 Morbid (severe) obesity due to excess calories; G89.29 Other chronic pain; M54.9 Dorsalgia, unspecified; F41.9 Anxiety disorder, unspecified; Z98.84 Bariatric surgery status; Z98.51 Tubal ligation status; Z98.890 Other specified postprocedural states; Z87.891 Personal history of nicotine dependence; Z71.3 Dietary counseling and surveillance; Z68.41 Body mass index [BMI] 40.0-44.9, adult; Z99.89 Dependence on other enabling machines and devices
CPT/HCPCS: 97802; 99211

== ENCOUNTER → 2018-03-20 | Outpatient (CLI) | payer BC ==
[2018-03-20 13:42] VITALS: BP 116/77; RESP 16; TEMP 98.2; BMI 41.1
--- NOTE | 2018-03-20 14:08 | P.HPBAR ---
Bariatric H&P - History & Physicial H&P Date: 03/20/18 History & Physicial: Visit/CC: sleeve follow-up Patient initial contact: Initial weight: 109.769 kg Initial weight in pounds: 242.00 Height: 5 ft 1 in Initial BMI: 45.7 Last weight: Current weight: 98.571 kg Current weight in pounds: 217.31 Current BMI: 41.1 [place] body weight (based on NIH guidelines): 47.627 kg Excess body weight loss: 18.0% The patient is a 42 year-old F who presents for Bariatric Assessment. Patient presents today for sleeve gastrectomy follow-up. She is also a 12 pounds her last visit. Past Medical History Past Medical History: Asthma, COPD, GERD/Reflux, Hypertension, Sleep Apnea/CPAP/ BIPAP, Thyroid Disorder Additional Past Medical History / Comment(s): COPD, smoking-related interstitial lung disease, obstructive sleep apnea, morbid obesity, history of seizure disorder the age of 16 related to diet pills, endometriosis, chronic back pain, plantar fasciitis, Tran history of Achilles tendinitis, probably antibiotic induced. She also has history of hypothyroidism, ALLERGIC rhinitis History of Any Multi-Drug Resistant Organisms: None Reported Past Surgical History: Bariatric Surgery, Tubal Ligation Additional Past Surgical History / Comment(s): LEEP PROCEDURE X 2, EGD, BACK INJECTIONS FOR PAIN. The patient has also undergone thoracic/thoracoscopic wedge biopsy of the lung. 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 Past Anesthesia/Blood Transfusion Reactions: Motion Sickness Past Psychological History: Anxiety Additional Psychological History / Comment(s): and lives with family home with her . Does not work outside of the home at this time. Adult children. His noted mother has just passed and there is not a lot of stress related to that and has restarted smoking, she does have underlying COPD as well as sleep apnea and is aware that smoking is not a good choice for her. No experience. Some international travel. No animal exposures. They have been working on getting up at mother's home and does have exposure to that environment. Smoking Status: Former smoker Past Alcohol Use History: Occasional Additional Past Alcohol Use History / Comment(s): STARTED SMOKING AT AGE 14 - STOPPED SMOKING on November 23, 2017. (Heaviest smoking amount was 3/4 pack/day) Past Drug Use History: None Reported - Past Family History Sister(s) Family Medical History: Cancer Father Family Medical History: Congestive Heart Failure (CHF), COPD Additional Family Medical History / Comment(s): from heart attack Mother Family Medical History: Cancer Additional Family Medical History / Comment(s): breast cancer Surgical - Exam Vital Signs Temp Resp BP 98.2 F 16 116/77 03/20/18 13:38 03/20/18 13:38 03/20/18 13:38 - General well developed, no distress - Eyes PERRL - ENT normal pinna - Neck no masses - Respiratory normal expansion - Cardiovascular Rhythm: regular - Abdomen Abdomen: soft, non tender Bariatric Assessment & Plan Plan: Status post sleeve gastrectomy. Patient's postoperative day 14. Patient is doing quite well. She will follow-up in 2 weeks. Bariatric Checklist Checklist: Plan: Checklist: EGD: 1. Hiatal hernia: 2. H. Pylori: HgbA1c: Vitamin D: Smoking: Former smoker Primary care physician referral: dr. alvarez Psychiatry clearance: Cardiology clearance: Sleep study: Diet journal: VTE risk score: VTE risk level: Rehab needs at discharge:
== END ==
LOC: BARWHC3 13:02
PROVIDERS: ATTEND Surgery
DX: Z48.815 Encounter for surgical aftercare following surgery on the digestive system (principal); Z98.84 Bariatric surgery status; Z87.891 Personal history of nicotine dependence
CPT/HCPCS: 99211

== ENCOUNTER 2018-03-26 19:32 | Emergency (ER) | payer BC ==
[2018-03-26] MEDS ORDERED: IOPAMIDOL-300 CONTRAST 30 ML VIAL (ORAL USE) PO PRN (19:54)
[2018-03-26] MEDS ORDERED: SODIUM CHLORIDE 0.9% 1,000 ML IV STA (19:55)
[2018-03-26 20:55] LABS: Basophils # (A) 0.1 k/uL (0-0.2); Basophils % (A) 1 %; Eosinophils # (A) 0.3 k/uL (0-0.7); Eosinophils % (A) 2 %; HCT 34.3 % (34.0-46.0); HGB 10.8 gm/dL (11.4-16.0); Hypochromasia Slight; Lymphocytes % (A) 22 %; MCH 28.5 pg (25.0-35.0); MCHC 31.5 g/dL (31.0-37.0); MCV 90.5 fL (80.0-100.0); Mean Platelet Volume 7.1; Monocytes # (A) 0.6 k/uL (0-1.0); Monocytes % (A) 5 %; Neutrophils # (A) 9.6 k/uL (1.3-7.7); Neutrophils % (A) 70 %; RBC 3.79 m/uL (3.80-5.40); RDW 14.1 % (11.5-15.5); WBC 13.8 k/uL (3.8-10.6)
[2018-03-26 20:58] LABS: Platelet Count 544 k/uL (150-450)
[2018-03-26 21:06] LABS: ALT 29 U/L (9-52); AST 35 U/L (14-36); Albumin 3.7 g/dL (3.5-5.0); Alkaline Phosphatase 80 U/L (38-126); Anion Gap 10 mmol/L; Blood Urea Nitrogen 12 mg/dL (7-17); Calcium 9.3 mg/dL (8.4-10.2); Carbon Dioxide 24 mmol/L (22-30); Chloride 106 mmol/L (98-107); Glucose 89 mg/dL (74-99); Lipase 102 U/L (23-300); Sodium 140 mmol/L (137-145); Total Bilirubin 0.6 mg/dL (0.2-1.3); Total Protein 7.1 g/dL (6.3-8.2)
--- NOTE | 2018-03-26 21:32 | ED ---
General Adult HPI - General Chief complaint: Abdominal Pain Stated complaint: Abd Pain Hx Bariatric Surgery Source: patient, RN notes reviewed, old records reviewed Mode of arrival: ambulatory Limitations: no limitations - History of Present Illness Initial comments: 42-year-old female patient with past medical history of bariatric surgery on presents to ER with acute abdominal pain. Patient states that at approximately 12 noon today she bent over and began experiencing pain in her abdomen. Patient states that the pain is located in her periumbilical region. Patient describes it as a dull achy pain. Patient states that the abdominal pain is worse while walking. Patient has not taken anything for this pain. Patient denies any nausea vomiting or diarrhea. Patient denies any fevers or chills. Patient denies any chest pain or shortness of breath. Systemic: Pt denies fatigue, myalgia, fever/chills, rash. Pt denies weakness, night sweats, weight loss. Neuro: Pt denies headache, visual disturbances, syncope or pre-syncope. HEENT: Pt denies ocular discharge or irritation, otalgia, rhinorrhea, pharyngitis or notable lymphadenopathy. Cardiopulmonary: Pt denies chest pain, SOB, heart palpitations, dyspnea on exertion. Abdominal/GI: Pt denies n/v/d. : Pt denies dysuria, burning w/ urination, frequency/urgency. Denies new onset urinary or bowel incontinence. MSK: Pt denies myalgia, loss of strength or function in extremities. Neuro: Pt denies new onset weakness, paresthesias. - Related Data Home Medications Medication Instructions Recorded Confirmed Furosemide [Lasix] 20 mg PO DAILY 01/05/14 03/26/18 Levothyroxine Sodium [Synthroid] 50 mcg PO QAM 01/05/14 03/26/18 Albuterol Inhaler [Ventolin Hfa 1 - 2 puff INHALATION RT-QID PRN 08/20/14 Inhaler] Cetirizine HCl [Zyrtec] 10 mg PO AC-SUPPER 10/17/16 03/26/18 Hydrocodone/Acetaminophen [[place] 1 tab PO Q8H PRN 10/17/16 03/26/18 10-325] Montelukast [Singulair] 10 mg PO DAILY 10/17/16 03/26/18 Umeclidinium Brm/Vilanterol Tr 1 puff INHALATION RT-HS 10/17/16 03/26/18 [Anoro Ellipta 62.5-25 Mcg INH] ALPRAZolam [Xanax] 0.5 mg PO BID PRN 11/24/17 03/26/18 Albuterol Nebulized [Ventolin 2.5 mg INHALATION RT-QID PRN 11/24/17 03/26/18 Nebulized] Ergocalciferol [Vitamin D2 50,000 unit PO STEWART 11/24/17 03/26/18 (ISDOL)] Fluticasone Propionate 1 spray EA NOSTRIL DAILY PRN 11/24/17 03/26/18 buPROPion SR [Wellbutrin SR] 150 mg PO BID 11/24/17 03/26/18 Bariatric Advantage Multivitam 1 tab PO DAILY 02/20/18 03/26/18 Cyclobenzaprine [Flexeril] 10 mg PO BID PRN 02/23/18 03/26/18 Etonogestrel [Nexplanon] 1 implant SQ [id number] 02/23/18 03/26/18 Nascobal 500 mcg NASAL FR 02/23/18 03/26/18 Nystatin Cream 1 applicate TOPICAL DIRECTED PRN 02/23/18 03/26/18 Ranitidine HCl [Zantac] 75 mg PO QAM 02/23/18 03/26/18 Sertraline [Zoloft] 50 mg PO BID 02/23/18 03/26/18 Previous Rx's Medication Instructions Recorded Potassium Chloride [Klor-Con 10] 10 meq PO HS #0 12/05/17 Bisacodyl [Dulcolax] 5 mg PO DAILY PRN #10 tablet. 03/09/18 Docusate [Colace] 100 mg PO BID #20 capsule 03/09/18 HYDROcodone/APAP 7.5-325MG [[place] 1 tab PO Q4H PRN 3 Days #18 tab 03/09/18 7.5-325] Ondansetron Odt [Zofran Odt] 4 mg PO Q8HR PRN #9 tab 03/09/18 Simethicone 40 mg/0.6 ml Drops 40 mg PO PCHS PRN #30 ml 03/09/18 [Mylicon Drops] Allergies Allergy/AdvReac Type Severity Reaction Status Date / Time bee venom protein (honey bee) Allergy Unknown Verified 03/26/18 23:10 nitrofurantoin Allergy Rash/Hives Verified 03/26/18 23:10 [From Macrobid] nitrofurantoin Allergy Rash/Hives Verified 03/26/18 23:10 macrocrystalline [From Macrobid] moxifloxacin [From Avelox] AdvReac Nausea & Verified 03/26/18 23:10 Vomiting seasonal allergies AdvReac Unknown Uncoded 03/26/18 19:40 Review of Systems ROS Statement: Those systems with pertinent positive or pertinent negative responses have been documented in the HPI. ROS Other: All systems not noted in ROS Statement are negative. Past Medical History Past Medical History: Asthma, COPD, GERD/Reflux, Hypertension, Sleep Apnea/CPAP/ BIPAP, Thyroid Disorder Additional Past Medical History / Comment(s): COPD, smoking-related interstitial lung disease, obstructive sleep apnea, morbid obesity, history of seizure disorder the age of 16 related to diet pills, endometriosis, chronic back pain, plantar fasciitis, Tran history of Achilles tendinitis, probably antibiotic induced. She also has history of hypothyroidism, ALLERGIC rhinitis History of Any Multi-Drug Resistant Organisms: None Reported Past Surgical History: Bariatric Surgery, Tubal Ligation Additional Past Surgical History / Comment(s): LEEP PROCEDURE X 2, EGD, BACK INJECTIONS FOR PAIN. The patient has also undergone thoracic/thoracoscopic wedge biopsy of the lung. 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 Past Anesthesia/Blood Transfusion Reactions: Motion Sickness Past Psychological History: Anxiety Smoking Status: Former smoker Past Alcohol Use History: Occasional Past Drug Use History: None Reported - Past Family History Sister(s) Family Medical History: Cancer Father Family Medical History: Congestive Heart Failure (CHF), COPD Additional Family Medical History / Comment(s): from heart attack Mother Family Medical History: Cancer Additional Family Medical History / Comment(s): breast cancer General Exam - General Exam Comments Initial Comments: Constitutional: NAD, AOX3, Pt has pleasant affect. HEENT: NC/AT, trachea midline, neck supple, no lymphadenopathy. Posterior pharynx non erythematous, without exudates. External ears appear normal, without discharge. Mucous membranes moist. Eyes PERRLA, EOM intact. There is no scleral icterus. No pallor noted. Cardiopulmonary: RRR, no murmurs, rubs or gallops, no JVD noted. Lungs CTAB in anterior and posterior jamil. No peripheral edema. Abdominal exam: Abdomen soft and non-distended. Abdomen mildly tender to palpation in the periumbilical region. Surgical sites appear clean, no ecchymoses, no erythema, no drainage. Bowel sounds active in LLQ. No hepatosplenomegaly. No guarding or rigidity. Neuro: CN II-XII grossly intact. No nuchal rigidity. MSK: No posterior calf tenderness bilaterally, homans sign negative bilaterally. Posterior tibialis and radial pulse +2 bilaterally. Sensation intact in upper and lower extremities. Full active ROM in upper and lower extremities, 5/5 stregnth. Limitations: no limitations Course Vital Signs 03/26/18 03/26/18 03/26/18 19:37 20:49 22:46 Temperature 99.2 F Pulse Rate 101 H 95 98 Respiratory 18 18 18 Rate Blood Pressure 125/80 120/79 135/77 O2 Sat by Pulse 97 96 96 Oximetry Medical Decision Making - Medical Decision Making 42-year-old female patient with past medical history of bariatric surgery on presents to ER with acute abdominal pain. Patient states that at approximately 12 noon today she bent over and began experiencing pain in her abdomen. Patient states that the pain is located in her periumbilical region. Patient describes it as a dull achy pain. Physical exam revealed her periumbilical region to be mildly tender to palpation. Laboratory investigations were conducted. CBC displayed mild leukocytosis of 13. CMP did not display any acute process. A CT of abdomen and pelvis with oral contrast was conducted. The displayed a collection of fluid adjacent to the stomach. This collection of fluid could represent seroma, chronic hematoma, a stomach leak or an abscess. Patient afebrile vital signs stable. Dr. Naqvi who performed her surgery was contacted by Dr. Sylvester. Per his instruction patient will follow-up tomorrow morning with Dr. Naqvi in office. Patient to return to ED if new signs or symptoms develop including worsening pain, cough , congestion, chest pain, shortness of breath. Case discussed with Dr. Sylvester. Pt not driving home. - Lab Data Result diagrams: 03/26/18 20:15 12/09/18 20:15 Lab Results 03/26/18 03/26/18 03/26/18 Range/Units 20:15 20:15 20:15 WBC 13.8 H (3.8-10.6) k/uL RBC 3.79 L (3.80-5.40) m/uL Hgb 10.8 L (11.4-16.0) gm/dL Hct 34.3 (34.0-46.0) % MCV 90.5 (80.0-100.0) fL MCH 28.5 (25.0-35.0) pg MCHC 31.5 (31.0-37.0) g/dL RDW 14.1 (11.5-15.5) % Plt Count 544 H D (150-450) k/uL Neutrophils % 70 % Lymphocytes % 22 % Monocytes % 5 % Eosinophils % 2 % Basophils % 1 % Neutrophils # 9.6 H (1.3-7.7) k/uL Lymphocytes # 3.0 (1.0-4.8) k/uL Monocytes # 0.6 (0-1.0) k/uL Eosinophils # 0.3 (0-0.7) k/uL Basophils # 0.1 (0-0.2) k/uL Hypochromasia Slight Sodium 140 (137-145) mmol/L Potassium 4.0 (3.5-5.1) mmol/L Chloride 106 (98-107) mmol/L Carbon Dioxide 24 (22-30) mmol/L Anion Gap 10 mmol/L BUN 12 (7-17) mg/dL Creatinine 0.50 L (0.52-1.04) mg/dL Est GFR (CKD-EPI)AfAm >90 (>60 ml/min/1.73 sqM) Est GFR (CKD-EPI)NonAf >90 (>60 ml/min/1.73 sqM) Glucose 89 (74-99) mg/dL Plasma Lactic Acid Miguel Angel 1.1 (0.7-2.0) mmol/L Calcium 9.3 (8.4-10.2) mg/dL Total Bilirubin 0.6 (0.2-1.3) mg/dL AST 35 (14-36) U/L ALT 29 (9-52) U/L Alkaline Phosphatase 80 (38-126) U/L Total Protein 7.1 (6.3-8.2) g/dL Albumin 3.7 (3.5-5.0) g/dL Lipase 102 (23-300) U/L Disposition Clinical Impression: Abdominal pain Disposition: HOME SELF-CARE Condition: Good Instructions: Abdominal Pain (ED) Additional Instructions: Patient to adhere to previously discussed treatment plan and will take medication(s) as directed. Patient to follow up with PCP in 1-2 days. Patient to return to ED if symptoms do not improve. Is patient prescribed a controlled substance at d/c from ED?: No Referrals: Zachariah Carlisle MD [Primary Care Provider] - 1-2 days Time of Disposition: 23:40
--- NOTE | 2018-03-26 21:38 | CT ---
EXAMINATION TYPE: CT abdomen pelvis w con DATE OF EXAM: 03/26/2018 COMPARISON: 12/24/2009 HISTORY: abdominal pain [address] DLP: 1459.9 mGycm Automated exposure control for dose reduction was used. TECHNIQUE: Helical acquisition of images was performed from the lung bases through the pelvis. CONTRAST: Performed with Oral Contrast and with IV Contrast, patient injected with 100 mL of Isovue 300. FINDINGS: Lung bases are clear of consolidation. There is mild subsegmental atelectasis in both lower lobes. He art is enlarged. There is no pleural effusion. Liver shows no focal defect. Gallbladder appears nahomy l. Bile ducts are not dilated. There is no pancreatic mass. There is fluid around the spleen. Spleen has normal size. There are surgical clips from bariatric surgery on the stomach. There is no adrenal mass. There is 5 mm calculus lateral left kidney. There is 2 cm right renal corti francesca cyst. There is no hydronephrosis. Ureters are not dilated. There is no retroperitoneal adenopathy . Bladder distends smoothly. There is no inguinal hernia. There is no evidence of a bowel obstruction . Appendix appears normal. There is no mesenteric edema or adenopathy. There is a 7 x 5 cm irregular fluid collection on the left lateral aspect of the stomach. There are a few air bubbles. IMPRESSION: THERE IS A MODERATE-SIZED LOW DENSITY FLUID COLLECTION ADJACENT TO THE STOMACH. THERE IS ALSO FLUID A ROUND THE SPLEEN. THIS COULD RELATE TO CHRONIC HEMATOMA OR SEROMA OR ABSCESS. BARIATRIC SURGERY CLIPS NOTED ON THE STOMACH. STOMACH LEAK IS ALSO POSSIBLE. NONOBSTRUCTING LEFT RENAL CALCULUS.
[2018-03-26] MEDS ORDERED: MORPHINE SULFATE 2 MG/ML SYRINGE IVP STA (22:42)
[2018-03-26 23:53] VITALS: BP 125/75; PULSE 101; RESP 16; TEMP 99.8
== END 2018-03-26 23:53 | disposition home or self-care (01) ==
LOC: EC 19:32
DX: R10.33 Periumbilical pain (principal); D72.829 Elevated white blood cell count, unspecified; J44.9 Chronic obstructive pulmonary disease, unspecified; E03.9 Hypothyroidism, unspecified; I10 Essential (primary) hypertension; G47.33 Obstructive sleep apnea (adult) (pediatric); K21.9 Gastro-esophageal reflux disease without esophagitis; F41.9 Anxiety disorder, unspecified; Z87.891 Personal history of nicotine dependence; Z88.1 Allergy status to other antibiotic agents; Z91.018 Allergy to other foods; Z91.048 Other nonmedicinal substance allergy status; Z79.3 Long term (current) use of hormonal contraceptives; Z79.899 Other long term (current) drug therapy; Z99.89 Dependence on other enabling machines and devices; Z98.84 Bariatric surgery status
CPT/HCPCS: 36415; 80053; 83605; 83690; 85025; 74177; 99284; 96374; 96361 ×2; J2270; Q9967

== ENCOUNTER → 2018-03-27 | Outpatient (CLI) | payer BC ==
[2018-03-27 15:12] VITALS: BP 125/81; PULSE 105; RESP 16; TEMP 98.7; BMI 40.2
--- NOTE | 2018-03-27 16:13 | FL ---
EXAMINATION TYPE: FL barium swallow DATE OF EXAM: 03/27/2018 COMPARISON: 03/07/2018, CT 03/26/2018 HISTORY: Abnormal CT examination 03/26/2018 TECHNIQUE: A single contrast UGI study is performed with Isovue. FINDINGS: Contrast passes from the distal esophagus through the gastric sleeve with no significant he sitancy. No extravasation of contrast is evident. There is a diverticulum along the left posterior la teral proximal stomach. This area is not identified on the comparison study. Extravasation into the f luid collection identified on the CT however is not evident on this exam. No free air is noted during this examination. Overhead radiographs were obtained. Fluoroscopy time: 1 minute 50 seconds Images: 20 Report was called case discussed with the referring surgeon by Dr. Chapin by telephone 1600 hours . Clinical management of the patient is recommended. IMPRESSIONS: 1. Post gastric sleeve without extravasation of contrast. A diverticulum extends posterior lateral at the proximal stomach near the gastroesophageal junction which is an interval change from the postsur gical study.
--- NOTE | 2018-03-27 18:05 | P.HPBAR ---
Bariatric H&P - History & Physicial H&P Date: 03/27/18 History & Physicial: Visit/CC: sleeve follow-up Patient initial contact: Initial weight: 109.769 kg Initial weight in pounds: 242.00 Height: 5 ft 1 in Initial BMI: 45.7 Last weight: Current weight: 96.615 kg Current weight in pounds: 213.00 Current BMI: 40.2 [place] body weight (based on NIH guidelines): 47.627 kg Excess body weight loss: 21.1% The patient is a 42 year-old F who presents for Bariatric Assessment. Patient presented severe to clinic. She states that she developed sudden pain yesterday. She said she bent down to picking tech her dog and developed some pain. She is worked up emergency room. She was sent home from the emergency room yesterday. The patient states that her pain is minimal. She denies any significant nausea or vomiting. Past Medical History Past Medical History: Asthma, COPD, GERD/Reflux, Hypertension, Sleep Apnea/CPAP/ BIPAP, Thyroid Disorder Additional Past Medical History / Comment(s): COPD, smoking-related interstitial lung disease, obstructive sleep apnea, morbid obesity, history of seizure disorder the age of 16 related to diet pills, endometriosis, chronic back pain, plantar fasciitis, Tran history of Achilles tendinitis, probably antibiotic induced. She also has history of hypothyroidism, ALLERGIC rhinitis History of Any Multi-Drug Resistant Organisms: None Reported Past Surgical History: Bariatric Surgery, Tubal Ligation Additional Past Surgical History / Comment(s): LEEP PROCEDURE X 2, EGD, BACK INJECTIONS FOR PAIN. The patient has also undergone thoracic/thoracoscopic wedge biopsy of the lung. 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 Past Anesthesia/Blood Transfusion Reactions: Motion Sickness Past Psychological History: Anxiety Additional Psychological History / Comment(s): and lives with family home with her . Does not work outside of the home at this time. Adult children. His noted mother has just passed and there is not a lot of stress related to that and has restarted smoking, she does have underlying COPD as well as sleep apnea and is aware that smoking is not a good choice for her. No experience. Some international travel. No animal exposures. They have been working on getting up at mother's home and does have exposure to that environment. Smoking Status: Former smoker Past Alcohol Use History: Occasional Additional Past Alcohol Use History / Comment(s): STARTED SMOKING AT AGE 14 - STOPPED SMOKING on November 23, 2017. (Heaviest smoking amount was 3/4 pack/day) Past Drug Use History: None Reported - Past Family History Sister(s) Family Medical History: Cancer Father Family Medical History: Congestive Heart Failure (CHF), COPD Additional Family Medical History / Comment(s): from heart attack Mother Family Medical History: Cancer Additional Family Medical History / Comment(s): breast cancer Surgical - Exam Vital Signs Temp Pulse Resp BP 98.7 F 105 H 16 125/81 03/27/18 15:08 03/27/18 15:08 03/27/18 15:08 03/27/18 15:08 - General well developed, no distress - Eyes PERRL - ENT normal pinna - Neck no masses - Respiratory normal expansion - Cardiovascular Rhythm: regular - Abdomen No rebound or guarding. Abdomen: soft, non tender Bariatric Assessment & Plan Plan: Abdominal pain. Patient's 3 weeks status post gastric sleeve procedure. Patient esophagram performed which showed no evidence of leak of her gastric sleeve. The patient will be observed closely. The patient has some minimal GERD. This will be observed. Bariatric Checklist Checklist: Plan: Checklist: EGD: 1. Hiatal hernia: 2. H. Pylori: HgbA1c: Vitamin D: Smoking: Former smoker Primary care physician referral: dr. alvarez Psychiatry clearance: Cardiology clearance: Sleep study: Diet journal: VTE risk score: VTE risk level: Rehab needs at discharge:
== END | disposition home or self-care (01) ==
LOC: BARWHC3 14:07
PROVIDERS: ATTEND Surgery
DX: Z48.815 Encounter for surgical aftercare following surgery on the digestive system (principal); R10.9 Unspecified abdominal pain; E66.01 Morbid (severe) obesity due to excess calories; K21.9 Gastro-esophageal reflux disease without esophagitis; K31.4 Gastric diverticulum; J84.89 Other specified interstitial pulmonary diseases; G47.33 Obstructive sleep apnea (adult) (pediatric); Z98.84 Bariatric surgery status; Z99.89 Dependence on other enabling machines and devices; Z98.51 Tubal ligation status; Z98.890 Other specified postprocedural states; Z87.891 Personal history of nicotine dependence; Z68.41 Body mass index [BMI] 40.0-44.9, adult
CPT/HCPCS: 74220; 99211; Q9967

== ENCOUNTER 2018-05-27 21:40 | Inpatient (IN) | payer BC ==
--- NOTE | 2018-05-27 22:18 | ED ---
General Adult HPI - General Chief complaint: Recheck/Abnormal Lab/Rx Stated complaint: Lab recheck Time Seen by Provider: 05/27/18 22:01 Source: patient Mode of arrival: ambulatory Limitations: no limitations - History of Present Illness Initial comments: Patient is a 43-year-old female presenting for elevated white blood cell count. The patient states that she was at rehab and discharged Tuesday and received a call today and told that her white blood cell count was 22,000. She states that she was in rehab to begin with because she had bariatric surgery and the complications and was in the ICU. She admits a little bit of congestion but no overt fevers or chills or nausea/vomiting/diarrhea or dysuria. She states that she has little bit of abdominal tenderness were surgery was but it is improving. - Related Data Home Medications Medication Instructions Recorded Confirmed Furosemide [Lasix] 20 mg PO DAILY 01/05/14 03/31/18 Levothyroxine Sodium [Synthroid] 50 mcg PO QAM 01/05/14 03/31/18 Hydrocodone/Acetaminophen [[place] 1 tab PO TID PRN 10/17/16 03/31/18 10-325] Montelukast [Singulair] 10 mg PO HS 10/17/16 03/31/18 Umeclidinium Brm/Vilanterol Tr 2 puff INHALATION RT-DAILY 10/17/16 03/31/18 [Anoro Ellipta 62.5-25 Mcg INH] ALPRAZolam [Xanax] 0.5 mg PO TID PRN 11/24/17 03/31/18 Ergocalciferol [Vitamin D2 50,000 unit PO STEWART 11/24/17 03/31/18 (DRISDOL)] buPROPion SR [Wellbutrin SR] 150 mg PO BID 11/24/17 03/31/18 Sertraline [Zoloft] 100 mg PO DAILY 02/23/18 03/31/18 Potassium Chloride [Klor-Con 10] 10 meq PO DAILY 03/31/18 03/31/18 Allergies Allergy/AdvReac Type Severity Reaction Status Date / Time bee venom protein (honey bee) Allergy Unknown Verified 05/27/18 21:48 nitrofurantoin Allergy Rash/Hives Verified 05/27/18 21:48 [From Macrobid] nitrofurantoin Allergy Rash/Hives Verified 05/27/18 21:48 macrocrystalline [From Macrobid] moxifloxacin [From Avelox] AdvReac Nausea & Verified 05/27/18 21:48 Vomiting seasonal allergies AdvReac Unknown Uncoded 05/27/18 21:48 Review of Systems ROS Statement: Those systems with pertinent positive or pertinent negative responses have been documented in the HPI. Constitutional: Negative for chills, fatigue and fever. HENT: Negative for congestion. Respiratory: Negative for chest tightness, shortness of breath and wheezing. Negative for cough Cardiovascular: Negative for chest pain and palpitations. Gastrointestinal: Negative for abdominal pain. Negative for abdominal distention , diarrhea, nausea and vomiting. Genitourinary: Negative for dysuria. Musculoskeletal: Negative for back pain, neck pain and neck stiffness. Skin: Negative for color change. Neurological: Negative for dizziness, speech difficulty, weakness and light- headedness. Psychiatric/Behavioral: Negative for agitation and confusion. Negative for anxiety ROS Other: All systems not noted in ROS Statement are negative. Past Medical History Past Medical History: Asthma, COPD, GERD/Reflux, Hypertension, Sleep Apnea/CPAP/ BIPAP, Thyroid Disorder Additional Past Medical History / Comment(s): COPD, smoking-related interstitial lung disease, obstructive sleep apnea, morbid obesity, history of seizure disorder the age of 16 related to diet pills, endometriosis, chronic back pain, plantar fasciitis, Tran history of Achilles tendinitis, probably antibiotic induced. She also has history of hypothyroidism, ALLERGIC rhinitis History of Any Multi-Drug Resistant Organisms: None Reported Past Surgical History: Bariatric Surgery, Tubal Ligation Additional Past Surgical History / Comment(s): LEEP PROCEDURE X 2, EGD, BACK INJECTIONS FOR PAIN. The patient has also undergone thoracic/thoracoscopic wedge biopsy of the lung. 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 Past Anesthesia/Blood Transfusion Reactions: Motion Sickness Past Psychological History: Anxiety Smoking Status: Former smoker Past Alcohol Use History: Occasional Past Drug Use History: None Reported - Past Family History Sister(s) Family Medical History: Cancer Father Family Medical History: Congestive Heart Failure (CHF), COPD Additional Family Medical History / Comment(s): from heart attack Mother Family Medical History: Cancer Additional Family Medical History / Comment(s): breast cancer General Exam - General Exam Comments Initial Comments: Constitutional: Pt appears well-developed and well-nourished. No distress. Head: Normocephalic and atraumatic. Eyes: EOM are normal. Neck: Normal range of motion. Neck supple. Cardiovascular: Normal rate, regular rhythm, S1 normal, S2 normal and normal heart sounds. Exam reveals no gallop and no friction rub. No murmur heard. Pulmonary/Chest: Effort normal and breath sounds normal. No tachypnea and no bradypnea. No respiratory distress. No wheezes or rales noted. Abdominal: Soft. Bowel sounds are normal. Pt exhibits no shifting dullness, no distension, no pulsatile liver, no fluid wave, no abdominal bruit and no ascites. There is no rigidity, no rebound, no guarding, no tenderness at McBurney's point and negative Farrell's sign. There is no tenderness. Surgical incision clean dry and intact with mild surrounding erythema not consistent with infection Musculoskeletal: Normal range of motion. Neurological: Pt is alert and oriented to person, place, and time. No cranial nerve deficit. Skin: Skin is warm and dry. No rash noted. Pt is not diaphoretic. No erythema. No pallor. Psychiatric: Pt has a normal mood and affect. Pt behavior is normal. Thought content normal. Limitations: no limitations Course Vital Signs 05/27/18 05/27/18 21:45 23:57 Temperature 98.8 F Pulse Rate 97 89 Respiratory 18 16 Rate Blood Pressure 133/77 138/71 O2 Sat by Pulse 97 98 Oximetry EKG Findings - EKG Comments: EKG Findings:: EKG shows normal sinus rhythm with a rate of 87 bpm, NH interval 146, QTC [address] depressions or elevations. Medical Decision Making - Medical Decision Making Laboratory studies were completed and showed that there was leukocytosis of 20.9. There is no other focal source of infection as urinalysis was negative and chest x-ray was also negative. CT of the abdomen was therefore performed to evaluate for possible intra-abdominal source of infection and showed mild adjacent fat stranding in the left upper larger as well as fluid collection under the diaphragm measuring 5.0 x 7.3 cm with a suspicious residual abscess and extravasation of the stomach. Case was discussed with surgery, Dr Nagel. It was recommended that the patient be admitted to hospital, made nothing by mouth and started on antibiotics. Therefore, patient was started on cefepime as well as Flagyl. - Lab Data Result diagrams: 05/27/18 00:30 05/27/18 00:30 Lab Results 05/27/18 05/27/18 05/27/18 Range/Units 00:30 00:30 22:35 WBC 20.9 H (3.8-10.6) k/uL RBC 3.76 L (3.80-5.40) m/uL Hgb 10.7 L (11.4-16.0) gm/dL Hct 34.9 (34.0-46.0) % MCV 92.7 D (80.0-100.0) fL MCH 28.6 (25.0-35.0) pg MCHC 30.8 L (31.0-37.0) g/dL RDW 16.3 H (11.5-15.5) % Plt Count 662 H (150-450) k/uL Neutrophils % 67 % Lymphocytes % 20 % Monocytes % 9 % Eosinophils % 2 % Basophils % 1 % Neutrophils # 14.0 H (1.3-7.7) k/uL Lymphocytes # 4.2 (1.0-4.8) k/uL Monocytes # 1.8 H (0-1.0) k/uL Eosinophils # 0.4 (0-0.7) k/uL Basophils # 0.2 (0-0.2) k/uL Anisocytosis Slight Sodium 139 (137-145) mmol/L Potassium 5.1 (3.5-5.1) mmol/L Chloride 104 (98-107) mmol/L Carbon Dioxide 26 (22-30) mmol/L Anion Gap 9 mmol/L BUN 8 (7-17) mg/dL Creatinine 0.42 L (0.52-1.04) mg/dL Est GFR (CKD-EPI)AfAm >90 (>60 ml/min/1.73 sqM) Est GFR (CKD-EPI)NonAf >90 (>60 ml/min/1.73 sqM) Glucose 87 (74-99) mg/dL Calcium 9.5 (8.4-10.2) mg/dL Magnesium 1.7 (1.6-2.3) mg/dL Total Bilirubin 0.9 (0.2-1.3) mg/dL AST 72 H (14-36) U/L ALT 30 (9-52) U/L Alkaline Phosphatase 88 (38-126) U/L Total Protein 7.8 (6.3-8.2) g/dL Albumin 3.7 (3.5-5.0) g/dL Urine Color Light Yellow Urine Appearance Clear (Clear) Urine pH 6.5 (5.0-8.0) Ur Specific [place] 1.002 (1.001-1.035) Urine Protein Negative (Negative) Urine Glucose (UA) Negative (Negative) Urine Ketones Negative (Negative) Urine Blood Negative (Negative) Urine Nitrite Negative (Negative) Urine Bilirubin Negative (Negative) Urine Urobilinogen <2.0 (<2.0) mg/dL Ur Leukocyte Esterase Trace H (Negative) Urine RBC 1 (0-5) /hpf Urine WBC 1 (0-5) /hpf Urine WBC Clumps Rare H (None) /hpf Ur Squamous Epith Cells 1 (0-4) /hpf Urine Bacteria Rare H (None) /hpf Influenza Type A RNA (Not Detectd) Influenza Type B (PCR) (Not Detectd) 05/27/18 Range/Units 22:38 WBC (3.8-10.6) k/uL RBC (3.80-5.40) m/uL Hgb (11.4-16.0) gm/dL Hct (34.0-46.0) % MCV (80.0-100.0) fL MCH (25.0-35.0) pg MCHC (31.0-37.0) g/dL RDW (11.5-15.5) % Plt Count (150-450) k/uL Neutrophils % % Lymphocytes % % Monocytes % % Eosinophils % % Basophils % % Neutrophils # (1.3-7.7) k/uL Lymphocytes # (1.0-4.8) k/uL Monocytes # (0-1.0) k/uL Eosinophils # (0-0.7) k/uL Basophils # (0-0.2) k/uL Anisocytosis Sodium (137-145) mmol/L Potassium (3.5-5.1) mmol/L Chloride (98-107) mmol/L Carbon Dioxide (22-30) mmol/L Anion Gap mmol/L BUN (7-17) mg/dL Creatinine (0.52-1.04) mg/dL Est GFR (CKD-EPI)AfAm (>60 ml/min/1.73 sqM) Est GFR (CKD-EPI)NonAf (>60 ml/min/1.73 sqM) Glucose (74-99) mg/dL Calcium (8.4-10.2) mg/dL Magnesium (1.6-2.3) mg/dL Total Bilirubin (0.2-1.3) mg/dL AST (14-36) U/L ALT (9-52) U/L Alkaline Phosphatase (38-126) U/L Total Protein (6.3-8.2) g/dL Albumin (3.5-5.0) g/dL Urine Color Urine Appearance (Clear) Urine pH (5.0-8.0) Ur Specific [place] (1.001-1.035) Urine Protein (Negative) Urine Glucose (UA) (Negative) Urine Ketones (Negative) Urine Blood (Negative) Urine Nitrite (Negative) Urine Bilirubin (Negative) Urine Urobilinogen (<2.0) mg/dL Ur Leukocyte Esterase (Negative) Urine RBC (0-5) /hpf Urine WBC (0-5) /hpf Urine WBC Clumps (None) /hpf Ur Squamous Epith Cells (0-4) /hpf Urine Bacteria (None) /hpf Influenza Type A RNA Not Detected (Not Detectd) Influenza Type B (PCR) Not Detected (Not Detectd) Disposition Clinical Impression: Abdominal abscess Disposition: ADMITTED IP TO THIS HOSP Condition: Fair Referrals: Zachariah Carlisle MD [Primary Care Provider] - 1-2 days Decision to Admit Reason: Admit from EC Decision Date: 05/28/18 Decision Time: 00:54
[2018-05-27 22:53] LABS: ALT 30 U/L (9-52); AST 72 U/L (14-36); Albumin 3.7 g/dL (3.5-5.0); Alkaline Phosphatase 88 U/L (38-126); Anion Gap 9 mmol/L; Blood Urea Nitrogen 8 mg/dL (7-17); Calcium 9.5 mg/dL (8.4-10.2); Carbon Dioxide 26 mmol/L (22-30); Chloride 104 mmol/L (98-107); Glucose 87 mg/dL (74-99); Magnesium 1.7 mg/dL (1.6-2.3); Sodium 139 mmol/L (137-145); Total Bilirubin 0.9 mg/dL (0.2-1.3); Total Protein 7.8 g/dL (6.3-8.2)
[2018-05-27 22:55] LABS: Appearance,Urine Clear (Clear); Bacteria,Urine Rare /hpf; Bilirubin,Urine Negative (Negative); Blood,Urine Negative (Negative); Color,Urine Light Yellow; Glucose,Urine (UA) Negative (Negative); Ketones,Urine Negative (Negative); Leukocyte Esterase,Urine Trace (Negative); Nitrite,Urine Negative (Negative); PH, Urine 6.5 (5.0-8.0); Protein,Urine Negative (Negative); RBC,Urine 1 /hpf (0-5); Specific Gravity,Urine 1.002 (1.001-1.035); Squamous Epithelial Cell,Urine 1 /hpf (0-4); Urobilinogen,Urine <2.0 mg/dL (<2.0); WBC,Urine 1 /hpf (0-5)
[2018-05-27 22:56] LABS: Potassium 5.1 mmol/L (3.5-5.1)
[2018-05-27 22:58] LABS: Anisocytosis Slight; Basophils # (A) 0.2 k/uL (0-0.2); Basophils % (A) 1 %; Eosinophils # (A) 0.4 k/uL (0-0.7); Eosinophils % (A) 2 %; HCT 34.9 % (34.0-46.0); HGB 10.7 gm/dL (11.4-16.0); Lymphocytes # (A) 4.2 k/uL (1.0-4.8); Lymphocytes % (A) 20 %; MCH 28.6 pg (25.0-35.0); MCHC 30.8 g/dL (31.0-37.0); Monocytes # (A) 1.8 k/uL (0-1.0); Monocytes % (A) 9 %; Neutrophils % (A) 67 %; Platelet Count 662 k/uL (150-450); RBC 3.76 m/uL (3.80-5.40); RDW 16.3 % (11.5-15.5); WBC 20.9 k/uL (3.8-10.6)
[2018-05-27 23:02] LABS: MCV 92.7 fL (80.0-100.0)
--- NOTE | 2018-05-27 23:51 | XR ---
EXAM: XR Chest, 2 Views CLINICAL HISTORY: ITS.REASON XR Reason: Cough TECHNIQUE: Frontal and lateral views of the chest. COMPARISON: Chest x-ray dated 04/26/2018. FINDINGS: Lungs: Mild reticular opacities in the left mid and lower lung are improved compared with the prior exam and likely represent atelectasis. Pleural space: Unremarkable. No pneumothorax. Heart: Unremarkable. No cardiomegaly. Mediastinum: Unremarkable. Bones/joints: Unremarkable. Tubes, lines and devices: Interval removal of the pleural drain. IMPRESSION: Mild reticular opacities in the left mid and lower lung are improved compared with the prior exam and likely represent atelectasis. The lungs are otherwise clear.
--- NOTE | 2018-05-28 00:32 | CT ---
EXAM: CT Abdomen and Pelvis With Intravenous Contrast CLINICAL HISTORY: ITS.REASON CT Reason: Pain, recent surgery TECHNIQUE: Axial computed tomography images of the abdomen and pelvis with intravenous contrast. CTDI is 13.9+14.2 MGy and DLP is 04/19/00 mGy-cm. This CT exam was performed using one or more of the following dose reduction techniques: automated exposure control, adjustment of the mA and/or kV according to patient size, and/or use of iterative reconstruction technique. COMPARISON: CT dated 04/25/2018. FINDINGS: Lung bases: See below. ABDOMEN: Liver: Unremarkable. No mass. Gallbladder and bile ducts: Unremarkable. No calcified stones. No ductal dilation. Pancreas: Unremarkable. No evidence of mass. No ductal dilation. Spleen: Unremarkable. No splenomegaly. Adrenals: Unremarkable. No mass. Kidneys and ureters: 5 mm nonobstructing left renal calculus. 15 mm simple appearing right renal cyst. Stomach and bowel: Reidentified postsurgical changes in the stomach, not well characterized on this exam. Again identified communicating with the stomach is an air and fluid collection in the left upper quadrant extending under the diaphragm. This currently measures approximately 5.0 x 7.3 cm, previously 8.9 x 7.67 m. There is mild adjacent fat stranding. There has been interval removal of the drain. This is highly suspicious for residual abscess and likely extravasation of contents from the stomach. There is mild inflammatory change tracking inferiorly along the left paracolic gutter. No obstruction. No mucosal thickening. PELVIS: Appendix: No findings to suggest acute appendicitis. Bladder: Unremarkable. No evidence of mass. Reproductive: Unremarkable as visualized. ABDOMEN and PELVIS: Intraperitoneal space: Unremarkable. No free air. No significant fluid collection. Bones/joints: No acute fracture. Soft tissues: Postsurgical changes in the anterior abdominal wall. Vasculature: Unremarkable. No abdominal aortic aneurysm. Lymph nodes: Unremarkable. No enlarged lymph nodes. IMPRESSION: Reidentified postsurgical changes in the stomach, not well characterized on this exam. Again identified communicating with the stomach is an air and fluid collection in the left upper quadrant extending under the diaphragm. This currently measures approximately 5.0 x 7.3 cm, previously 8.9 x 7.67 m. There is mild adjacent fat stranding. There has been interval removal of the drain. This is highly suspicious for residual abscess and likely extravasation of contents from the stomach. There is mild inflammatory change tracking inferiorly along the left paracolic gutter.
[2018-05-28] MEDS ORDERED: NALOXONE 0.4 MG/ML 1 ML VIAL IV PRN (00:43)
[2018-05-28] MEDS: CEFEPIME 2 GM in SODIUM CHLORIDE 0.9% 100 ML IVPB SCH ×2 (01:17→13:35)
[2018-05-28] MEDS: SODIUM CHLORIDE 0.9% 1,000 ML IV SCH ×2 (01:17→13:35)
[2018-05-28 02:26] VITALS: BMI 38.0
[2018-05-28] MEDS: ALPRAZolam 0.5 MG TAB PO PRN ×2 (02:46→23:35)
[2018-05-28] MEDS: metroNIDAZOLE-NS PMX 500 MG in SALINE 1 100ML.BAG IVPB SCH ×3 (03:24→16:17)
[2018-05-28] MEDS: HYDROmorphone 0.5 MG/0.5 ML SYRINGE IVP PRN ×4 (05:43→20:20)
[2018-05-28] MEDS: IOPAMIDOL-300 CONTRAST 30 ML VIAL (ORAL USE) PO PRN ×2 (10:00→11:08)
[2018-05-28 10:16] LABS: Anisocytosis Slight; HCT 33.7 % (34.0-46.0); HGB 10.3 gm/dL (11.4-16.0); Hypochromasia Slight; MCH 28.7 pg (25.0-35.0); MCHC 30.7 g/dL (31.0-37.0); MCV 93.4 fL (80.0-100.0); Mean Platelet Volume 6.6; Platelet Count 600 k/uL (150-450); RBC 3.61 m/uL (3.80-5.40); RDW 16.2 % (11.5-15.5); WBC 17.7 k/uL (3.8-10.6)
[2018-05-28 10:22] LABS: ALT 26 U/L (9-52); AST 29 U/L (14-36); Albumin 3.1 g/dL (3.5-5.0); Alkaline Phosphatase 84 U/L (38-126); Anion Gap 9 mmol/L; Blood Urea Nitrogen 5 mg/dL (7-17); Calcium 9.3 mg/dL (8.4-10.2); Carbon Dioxide 28 mmol/L (22-30); Chloride 106 mmol/L (98-107); Glucose 82 mg/dL (74-99); Potassium 4.4 mmol/L (3.5-5.1); Sodium 143 mmol/L (137-145); Total Bilirubin 0.4 mg/dL (0.2-1.3); Total Protein 6.3 g/dL (6.3-8.2)
--- NOTE | 2018-05-28 10:57 | P.GSHP ---
History of Present Illness H&P Date: 05/28/18 Chief Complaint: Leukocytosis, abdominal pain This is a 43-year-old female with a complicated surgical history. Patient was recently discharged from rehab 3 days ago. Apparently she was called by the rehab facility that she had an elevated white count and to go to the emergency room. Patient's white count was 22,000 at the rehab facility. Patient has undergone a previous gastric sleeve procedure in February 2018. She was taken back to the operating room for an intra-abdominal hemorrhage in March 2018. Patient underwent splenectomy at that time. She then developed postoperative ARDS. She required a tracheostomy. She then was found to have a leak from her gastric sleeve in April 2018. She was sent down to [facility] and underwent advanced endoscopic procedures to repair the leak. Patient had a successful leak repair. She had multiple CAT scans at [facility] which showed resolution of the leak and resolution of her perigastric abscess. The patient had been on a soft regular diet prior to her admission today. Patient underwent computed tomography scan of the abdomen last night in the emergency room. There is a collection of air and fluid near the stomach. It is unclear if this is a gastric perforation as no oral contrast was given. Patient states that she feels well and has some mild incisional pain. She denies any nausea or vomiting. She denies any fevers or nausea at home. Past Medical History Past Medical History: Asthma, COPD, GERD/Reflux, Hypertension, Sleep Apnea/CPAP/ BIPAP, Thyroid Disorder Additional Past Medical History / Comment(s): COPD, smoking-related interstitial lung disease, obstructive sleep apnea, morbid obesity, history of seizure disorder the age of 16 related to diet pills, endometriosis, chronic back pain, plantar fasciitis, Tran history of Achilles tendinitis, probably antibiotic induced. She also has history of hypothyroidism, ALLERGIC rhinitis History of Any Multi-Drug Resistant Organisms: None Reported Past Surgical History: Bariatric Surgery, Tubal Ligation Additional Past Surgical History / Comment(s): LEEP PROCEDURE X 2, EGD, BACK INJECTIONS FOR PAIN. The patient has also undergone thoracic/thoracoscopic wedge biopsy of the right lung. 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 Does not work outside of the home at this time. Adult children. No experience. Some international travel. No animal exposures. They have been working on getting up at mother's home and does have exposure to that environment. Smoking Status: Former smoker Past Alcohol Use History: Occasional Additional Past Alcohol Use History / Comment(s): STARTED SMOKING AT AGE 14 - STOPPED SMOKING on November 23, 2017. (Heaviest smoking amount was 3/4 pack/day) Past Drug Use History: None Reported - Past Family History Sister(s) Family Medical History: Cancer Father Family Medical History: Congestive Heart Failure (CHF), COPD Additional Family Medical History / Comment(s): from heart attack Mother Family Medical History: Cancer Additional Family Medical History / Comment(s): breast cancer Medications and Allergies Home Medications Medication Instructions Recorded Confirmed Type Levothyroxine Sodium [Synthroid] 50 mcg PO QAM 01/05/14 05/28/18 History Hydrocodone/Acetaminophen [[place] 1 tab PO TID PRN 10/17/16 05/28/18 History 10-325] Umeclidinium Brm/Vilanterol Tr 2 puff INHALATION RT-DAILY 10/17/16 05/28/18 History [Anoro Ellipta 62.5-25 Mcg INH] ALPRAZolam [Xanax] 0.5 mg PO TID PRN 11/24/17 05/28/18 History Sertraline [Zoloft] 100 mg PO DAILY 02/23/18 05/28/18 History Albuterol Nebulized [Ventolin 2.5 mg INHALATION RT-Q4H PRN 05/28/18 05/28/18 History Nebulized] Multivitamins, Thera [Multivitamin 1 tab PO DAILY 05/28/18 05/28/18 History (formulary)] Ondansetron [Zofran] 4 mg PO Q12HR PRN 05/28/18 05/28/18 History Pantoprazole Sodium [Protonix] 40 mg PO DAILY 05/28/18 05/28/18 History Allergies Allergy/AdvReac Type Severity Reaction Status Date / Time bee venom protein (honey bee) Allergy Unknown Verified 05/28/18 08:14 nitrofurantoin Allergy Rash/Hives Verified 05/28/18 08:14 [From Macrobid] nitrofurantoin Allergy Rash/Hives Verified 05/28/18 08:14 macrocrystalline [From Macrobid] moxifloxacin [From Avelox] AdvReac Nausea & Verified 05/28/18 08:14 Vomiting seasonal allergies AdvReac Unknown Uncoded 05/27/18 21:48 Surgical - Exam Vital Signs Temp Pulse Resp BP Pulse Ox 98.8 F 97 18 133/77 97 05/27/18 21:45 05/27/18 21:45 05/27/18 21:45 05/27/18 21:45 05/27/18 21:45 - General well developed, no distress - Eyes PERRL - ENT normal pinna - Neck no masses - Respiratory normal expansion - Cardiovascular Rhythm: regular - Abdomen Minimal incisional pain at the midline scar. There is no rebound or guarding. There is no peritoneal signs. Abdomen: soft, non tender Results - Labs 05/28/18 09:36 05/28/18 09:36 Abnormal Lab Results - Last 24 Hours (Table) 05/27/18 05/27/18 05/27/18 Range/Units 00:30 00:30 22:35 WBC 20.9 H (3.8-10.6) k/uL RBC 3.76 L (3.80-5.40) m/uL Hgb 10.7 L (11.4-16.0) gm/dL Hct (34.0-46.0) % MCHC 30.8 L (31.0-37.0) g/dL RDW 16.3 H (11.5-15.5) % Plt Count 662 H (150-450) k/uL Neutrophils # 14.0 H (1.3-7.7) k/uL Monocytes # 1.8 H (0-1.0) k/uL BUN (7-17) mg/dL Creatinine 0.42 L (0.52-1.04) mg/dL AST 72 H (14-36) U/L Albumin (3.5-5.0) g/dL Ur Leukocyte Esterase Trace H (Negative) Urine WBC Clumps Rare H (None) /hpf Urine Bacteria Rare H (None) /hpf 05/28/18 05/28/18 Range/Units 09:36 09:36 WBC 17.7 H (3.8-10.6) k/uL RBC 3.61 L (3.80-5.40) m/uL Hgb 10.3 L (11.4-16.0) gm/dL Hct 33.7 L (34.0-46.0) % MCHC 30.7 L (31.0-37.0) g/dL RDW 16.2 H (11.5-15.5) % Plt Count 600 H (150-450) k/uL Neutrophils # (1.3-7.7) k/uL Monocytes # (0-1.0) k/uL BUN 5 L (7-17) mg/dL Creatinine 0.45 L (0.52-1.04) mg/dL AST (14-36) U/L Albumin 3.1 L (3.5-5.0) g/dL Ur Leukocyte Esterase (Negative) Urine WBC Clumps (None) /hpf Urine Bacteria (None) /hpf Diabetes panel 05/27/18 05/28/18 Range/Units 00:30 09:36 Sodium 139 143 (137-145) mmol/L Potassium 5.1 4.4 (3.5-5.1) mmol/L Chloride 104 106 (98-107) mmol/L Carbon Dioxide 26 28 (22-30) mmol/L BUN 8 5 L (7-17) mg/dL Creatinine 0.42 L 0.45 L (0.52-1.04) mg/dL Glucose 87 82 (74-99) mg/dL Calcium 9.5 9.3 (8.4-10.2) mg/dL AST 72 H 29 (14-36) U/L ALT 30 26 (9-52) U/L Alkaline Phosphatase 88 84 (38-126) U/L Total Protein 7.8 6.3 (6.3-8.2) g/dL Albumin 3.7 3.1 L (3.5-5.0) g/dL Calcium panel 05/27/18 05/28/18 Range/Units 00:30 09:36 Calcium 9.5 9.3 (8.4-10.2) mg/dL Albumin 3.7 3.1 L (3.5-5.0) g/dL Pituitary panel 05/27/18 05/28/18 Range/Units 00:30 09:36 Sodium 139 143 (137-145) mmol/L Potassium 5.1 4.4 (3.5-5.1) mmol/L Chloride 104 106 (98-107) mmol/L Carbon Dioxide 26 28 (22-30) mmol/L BUN 8 5 L (7-17) mg/dL Creatinine 0.42 L 0.45 L (0.52-1.04) mg/dL Glucose 87 82 (74-99) mg/dL Calcium 9.5 9.3 (8.4-10.2) mg/dL Adrenal panel 05/27/18 05/28/18 Range/Units 00:30 09:36 Sodium 139 143 (137-145) mmol/L Potassium 5.1 4.4 (3.5-5.1) mmol/L Chloride 104 106 (98-107) mmol/L Carbon Dioxide 26 28 (22-30) mmol/L BUN 8 5 L (7-17) mg/dL Creatinine 0.42 L 0.45 L (0.52-1.04) mg/dL Glucose 87 82 (74-99) mg/dL Calcium 9.5 9.3 (8.4-10.2) mg/dL Total Bilirubin 0.9 0.4 (0.2-1.3) mg/dL AST 72 H 29 (14-36) U/L ALT 30 26 (9-52) U/L Alkaline Phosphatase 88 84 (38-126) U/L Total Protein 7.8 6.3 (6.3-8.2) g/dL Albumin 3.7 3.1 L (3.5-5.0) g/dL - Imaging CT scan - abdomen: report reviewed (Computed tomography scan of the abdomen was reviewed with Dr. Talley. There appears to be evidence of a air filled abscess in the perigastric area. He is unable to determine if there is a definitive leak of the stomach.) Assessment and Plan Assessment: Leukocytosis Possible perigastric abscess Patient will undergo repeat CAT scan of the abdomen and pelvis with oral contrast today to determine if there is evidence of a gastric leak. If this is just a abscess she will undergo CT-guided drainage catheter placement. If the leak is present we'll anticipate transfer to [facility] for further definitive care.
--- NOTE | 2018-05-28 17:44 | CT ---
EXAMINATION TYPE: CT abdomen pelvis wo con DATE OF EXAM: 05/28/2018 COMPARISON: 05/27/2018, 05/26/2018 CT chest abdomen pelvis, upper GI 03/07/2018 INDICATION: Left upper quadrant pain DLP: 928.9 mGycm, Automated exposure control for dose reduction was used. CONTRAST: 0 mL of Isovue 300. Study performed with Oral Contrast TECHNIQUE: Axial images were obtained from above the diaphragm to the pubic rami in the axial plane a t 5 mm thick sections. Reconstructed images are reviewed on the computer in the coronal plane. FINDINGS: There is a known abscess in the splenic bed with air present. Previous catheter is been rem mynor from 04/25/2018. Inflammatory change may be adjacent extending into the paracolic gutter findings appear unchanged from the collection up to 01/05/2019 in this region. This extends towards the patient 's proximal gastric sleeve suture. . No extravasation of contrast however is evident at this level. However, there are a few punctate areas of hyperintensity adjacent within the mesentery. These were p resent on the comparison study. Limited CT sections are obtained the lung bases. No suspicious findings of the lung bases. Coronary artery calcifications present. CT ABDOMEN: Some reflux into the distal esophagus is noted. Liver: Normal Spleen: Not identified. Patient reports this is surgically absent. Pancreas: Normal Adrenal glands: The adrenal glands are normal. Gallbladder: Normal Kidneys: No masses are evident. No hydronephrosis is present. No cysts are present. Delayed images were obtained through the kidneys. Aorta: Vascular calcification is within the aorta. Inferior vena cava: Normal. CT PELVIS: Loops of bowel within the abdomen and pelvis are normal. There are loops of bowel which are incom pletely distended or lack oral contrast limiting their evaluation. Appendix: Normal as visualized. Urinary bladder: Decompressed with some contrast present. No obvious intraluminal abnormality is evid ent. Genitourinary structures: Uterus appears unremarkable. Adnexal regions appear within normal limits. Osseous structures: No suspicious lytic or sclerotic lesions. Sacroiliac joint degenerative changes a re present. IMPRESSIONS: 1. Abscess within the splenic bed. Catheter is been removed. No significant increase in size is evid ent. No obvious extravasation of oral contrast into this site is evident.
[2018-05-28] MEDS: PIPERACILLIN-TAZOBACTAM 3.375 GM in SODIUM CHLORIDE 0.9% 100 ML IVPB SCH (23:36)
[2018-05-29] MEDS: metroNIDAZOLE-NS PMX 500 MG in SALINE 1 100ML.BAG IVPB SCH ×4 (00:01→23:59)
[2018-05-29] MEDS: HYDROmorphone 0.5 MG/0.5 ML SYRINGE IVP PRN ×5 (00:10→22:14)
[2018-05-29] MEDS: SODIUM CHLORIDE 0.9% 1,000 ML IV SCH ×2 (02:59→18:04)
--- NOTE | 2018-05-29 05:27 | CONS ---
CONSULTATION DATE OF SERVICE: 05/28/2018. REASON FOR CONSULTATION: Abdominal abscess. HISTORY OF PRESENT ILLNESS: The patient is a 43-year-old female who did have a complicated abdominal history. The patient did have a previous gastric sleeve procedure in February 2018. The patient did have a intraabdominal hemorrhage in March 2018 for which the patient did have surgery including . The patient postoperatively developed acute respiratory distress syndrome. Patient did get tracheostomy and followed at [facility]. The patient did have a gastric leak from the gastric sleeve that was repaired at that facility. Apparently cultures were negative. The patient received 2 weeks of IV antibiotic therapy and antibiotics were discontinued before the patient was transferred to [facility] on the [place] for rehabilitation. The patient did have a PICC line that was used for TPN. Slowly the patient was able to tolerate a diet and the TPN was weaned off. A few days before the patient was getting discharged from the the rehab facility, the patient did have a followup visit with [facility] physician on 05/24/2018 and apparently the patient did have a CT abdomen and pelvis done. The patient's GIULIA drain was not draining off any fluid and hence the GIULIA drain was discontinued as well as the PICC line and no antibiotic was recommended. Apparently, the patient did have elevated white count, which was repeated by the correction and after discharge from that facility she was called in by correction saying that her white count was elevated and was advised to go to the ER. The patient did not require any high-grade fever at home. However, did mention she did have a fever on arrival to this facility. The patient did have a CT of the abdomen and pelvis completed by the ER physician last night that was done without any contrast and apparently did show area of fluid collection in the left upper quadrant extending from the diaphragm currently measures 5 into 7.6 cm. fat stranding. The patient was started on cefepime and Flagyl and admitted to the hospital. Infectious disease was consulted for further recommendation of antibiotic therapy. This morning the patient did have a repeat CT of the abdomen and pelvis with oral contrast which did not show any evidence of gastric leak. The patient did have a low-grade fever of 100, did have elevated white count. She did have some mild pain to the left upper quadrant area. More of a dull aching 3 to 4/10, and no radiation. Some nausea but no vomiting and no diarrhea. REVIEW OF SYSTEMS: Positive points have been mentioned in HPI. Rest of systems has been negative. PAST MEDICAL HISTORY: Asthma, COPD, gastroesophageal reflux disease, hypertension, hypothyroidism, abdominal abscess, ARDS, seizure disorder. PAST SURGICAL HISTORY: Gastric sleeve procedure, drainage of the abscess, splenectomy and gastric sleeve repair, PICC line placement and subsequent removal, thoracoscopy with wedge biopsy of the right lung. SOCIAL HISTORY: Remote history of smoking. Occasionally drinks. No drug use. FAMILY HISTORY: Sister with history of cancer. Father with history of congestive heart failure and COPD. Mother history of breast cancer. ALLERGIES: TO NITROFURANTOIN, MOXIFLOXACIN, SEASONAL ALLERGIES. MEDICATIONS: The patient is currently on cefepime 2 g q.12h. she is on Flagyl, Narcan, Dilaudid and Xanax. PHYSICAL EXAMINATION: Her blood pressure is 131/81 with a pulse of 103. Temperature of 100. She is 95% on room air. General description is a middle-aged female lying in bed in no distress. No tachypnea or accessory muscles of respiration use. HEENT: Shows pallor. No scleral icterus. Oral mucosal membranes are dry. No pharyngeal erythema or thrush. Neck: Trachea central. No thyromegaly. Lungs unlabored breathing with decreased breath sounds in the bases. No wheeze. Heart S1, S2. Regular rate and rhythm. ABDOMEN: Soft. Mildly tender, left lower quadrant area. No guarding or rigidity. No organomegaly. Extremities: No edema of the feet. Skin examination: No rash or mass palpable. Neurologic: The patient is awake, alert, oriented times three. Mood and affect normal. LABS: Hemoglobin is 10.8, white count 17.7. Admission white count was 20.7. BUN of 5, creatinine 0.45. CT report as mentioned above. Blood culture obtained currently pending. DIAGNOSTIC IMPRESSION AND PLAN: Patient admitted to the hospital with elevated white count in this patient who did have a low-grade fever with intraabdominal fluid collection concerning for possible abscess as this patient did have history of abscess status post drainage and this abscess has slightly increased in size compared to CT that was performed at [facility] on 05/24/2018 with concern for possible gram-negative pathogen. PLAN: 1. The patient may benefit from either a CT guided drainage of this abscess or open drainage with the fluid being sent for culture, both aerobic and anaerobic. 2. Discontinue cefepime and start the patient on Zosyn 3.375 q q.8 hours. 3. We will follow up on her clinical condition as well as cultures to further adjust medication if needed. Thank you for this consultation. We will follow this patient along with you. MMODL / IJN: [id number] /
[2018-05-29 08:27] LABS: Anisocytosis Slight; HCT 31.1 % (34.0-46.0); HGB 10.1 gm/dL (11.4-16.0); Hypochromasia Slight; MCH 30.1 pg (25.0-35.0); MCHC 32.4 g/dL (31.0-37.0); MCV 92.6 fL (80.0-100.0); Mean Platelet Volume 6.6; Platelet Count 596 k/uL (150-450); RBC 3.35 m/uL (3.80-5.40); RDW 16.3 % (11.5-15.5); WBC 18.4 k/uL (3.8-10.6)
[2018-05-29] MEDS: ONDANSETRON 4 MG/2 ML VIAL IVP PRN (09:29)
[2018-05-29] MEDS: PIPERACILLIN-TAZOBACTAM 3.375 GM in SODIUM CHLORIDE 0.9% 100 ML IVPB SCH ×2 (09:29→17:19)
[2018-05-29 11:08] LABS: INR 1.1 (<1.2); Prothrombin Time 11.9 sec (9.0-12.0)
[2018-05-29] MEDS ORDERED: HYDROmorphone 1 MG/ML 1 ML SYRINGE IVP STA (14:29)
--- NOTE | 2018-05-29 15:10 | CT ---
EXAMINATION TYPE: CT guided abscess drainage DATE OF EXAM: 05/29/2018 COMPARISON: CT abdomen pelvis 05/27 and 05/28/2018 PROCEDURE: Maximal barrier technique was utilized. The skin over suitable path to the abscess in the left upper quadrant was localized with CT and the overlying skin prepped and draped. Lidocaine was used for lo francesca anesthesia. A skin mervat made with a scalpel. Access was gained using CT guidance with a 21-gaug e needle, purulent material returned in the hub of the needle. A 0.018 inch wire was advanced and th e access site was upsized, the wire was upsized and subsequently an 8-Georgian drain was deployed withi n the abscess cavity and fixed in place. Catheter attached to gravity drainage. No immediate compli cation. Purulent material sent for laboratory analysis and draining into the bag. The patient remai josh in stable condition. IMPRESSION: STATUS POST CT GUIDED ABSCESS DRAINAGE, MICROBIOLOGY ANALYSIS IS PENDING. THIS PROCEDURE WAS PERFORM ED BY THE UNDERSIGNED. CT DLP: 2363 mGycm Automated exposure control for dose reduction was used.
[2018-05-29] MEDS ORDERED: ALPRAZolam 0.5 MG TAB PO PRN (17:05)
[2018-05-29] MEDS ORDERED: ONDANSETRON 4 MG TAB PO PRN (17:05)
[2018-05-29] MEDS ORDERED: HYDROmorphone 0.5 MG/0.5 ML SYRINGE IVP STA (17:46)
--- NOTE | 2018-05-29 18:13 | P.PN ---
Subjective Progress Note Date: 05/29/18 Principal diagnosis: Perigastric abscess Patient had a CAT scan performed as oral contrast yesterday which showed no evidence of gastric leak. The patient has an abscess in the perigastric area. I reviewed the CAT scan with Dr. Talley the radiologist. He feels the abscess size is 3.5 x 2.5 x 1.7 cm. The patient had her CT-guided drain removed by the doctors at [facility] last Tuesday. Apparently she still had a residual abscess cavity at that time. She has not been on antibiotics. The patient underwent CT-guided drainage of the abscess cavity with drain placement. She had a total amount. Fluid removed. Objective - Vital Signs Vital signs: Vital Signs Temp 97.6 F 05/29/18 15:00 Pulse 113 H 05/29/18 15:00 Resp 18 05/29/18 15:00 BP 154/85 05/29/18 15:00 Pulse Ox 95 05/29/18 15:00 Intake & Output 05/28/18 05/29/18 05/29/18 18:59 06:59 18:59 Other: # Voids 2 1 4 # Bowel Movements 0 # Emeses 0 - Gastrointestinal Gastrointestinal Comment(s): Abdomen is soft. There is no rebound or guarding. The patient has complaints of pain at the radiologic drain site - Labs CBC & Chem 7: 05/29/18 08:13 05/28/18 09:36 Labs: Abnormal Lab Results - Last 24 Hours (Table) 05/29/18 Range/Units 08:13 WBC 18.4 H (3.8-10.6) k/uL RBC 3.35 L (3.80-5.40) m/uL Hgb 10.1 L (11.4-16.0) gm/dL Hct 31.1 L (34.0-46.0) % RDW 16.3 H (11.5-15.5) % Plt Count 596 H (150-450) k/uL Microbiology - Last 24 Hours (Table) 05/28/18 01:06 Blood Culture - Preliminary Blood No Growth after 24 hours Assessment and Plan Assessment: Status post CT-guided drainage of a perigastric abscess. The patient continue full liquid diet. She'll have a PICC line placed tomorrow for IV and robotic infusion.
[2018-05-29] MEDS: ACYCLOVIR 800 MG TAB PO SCH (20:04)
[2018-05-29] MEDS: HYDROcodone/APAP 10-325MG 1 EACH TAB PO PRN (20:45)
[2018-05-30] MEDS: PIPERACILLIN-TAZOBACTAM 3.375 GM in SODIUM CHLORIDE 0.9% 100 ML IVPB SCH ×4 (01:01→23:07)
[2018-05-30] MEDS: ACYCLOVIR 800 MG TAB PO SCH ×6 (01:16→23:07)
[2018-05-30] MEDS: HYDROcodone/APAP 10-325MG 1 EACH TAB PO PRN ×3 (03:11→17:57)
[2018-05-30] MEDS: LEVOTHYROXINE 50 MCG TAB PO SCH (05:21)
[2018-05-30] MEDS: SODIUM CHLORIDE 0.9% 1,000 ML IV SCH ×2 (05:21→21:00)
[2018-05-30] MEDS: HYDROmorphone 0.5 MG/0.5 ML SYRINGE IVP PRN ×4 (05:23→21:14)
--- NOTE | 2018-05-30 07:00 | PN ---
PROGRESS NOTE DATE OF SERVICE: 05/29/2018 REASON FOR FOLLOWUP: Abdominal abscess. INTERVAL HISTORY: The patient is afebrile. The patient is status post CT-guided drainage of this abscess. Cultures have been obtained. No nausea, no vomiting, or any diarrhea. PHYSICAL EXAMINATION: Blood pressure is 154/85, pulse of 99, temperature 97.6. She is 95% on room air. General description is a middle-aged female, up in the bed in no distress. RESPIRATORY SYSTEM: Unlabored breathing, clear to auscultation anteriorly. HEART: S1, S2. Regular rate and rhythm. ABDOMEN: Soft, no tenderness. LABS: Hemoglobin is 10.1, white count of 18.4, BUN of 5, creatinine 0.45. The blood and fluid cultures are currently pending. Blood culture negative. DIAGNOSTIC IMPRESSION AND PLAN: Patient with abdominal abscess, status post CT-guided drainage. We are waiting for the cultures to finalize. Keep the patient on Zosyn at this point. The patient likely needs a PICC line that should be ordered for tomorrow for outpatient IV antibiotic therapy. Continue supportive care. MMODL / IJN: [id number] /
[2018-05-30] MEDS: metroNIDAZOLE-NS PMX 500 MG in SALINE 1 100ML.BAG IVPB SCH ×2 (08:21→16:47)
[2018-05-30] MEDS: PANTOPRAZOLE 40 MG TABLET PO SCH (08:22)
[2018-05-30] MEDS: SERTRALINE 100 MG TAB PO SCH (08:22)
[2018-05-30] MEDS ORDERED: LIDOCAINE 1% INJ 10MG/ML (20 ML MDV) SQ ONE (09:42)
[2018-05-30] MEDS ORDERED: IOPAMIDOL-250 50ML BTL IV ONE ×2 (09:45)
--- NOTE | 2018-05-30 10:16 | IR ---
EXAMINATION TYPE: IR cvc insert >=5 years, left upper extremity venogram DATE OF EXAM: 05/30/2018 COMPARISON: NONE CLINICAL HISTORY: Infection, abscess, Needs long-term intravenous access for antibiotics. PROC EDU RE: After informed consent, the skin overlying the left basilic vein was localized with ultrasound and noted to be compressible and patent. An ultrasound image was obtained and submitted on the patient's chart. The overlying skin was prepped and draped and Lidoca ine was used for local anesthesia. A skin mervat was made with a scalpel. Access was gained to the ve in under ultrasound guidance with a 21 gauge needle and a 0.018 inch wire was advanced but could not be advanced centrally. Gentle hand injection of nonionic radiographic contrast was performed under re al-time fluoroscopy. Based on the findings while was readvanced centrally. Access site was dilated w ith Peel-Away sheath and catheter tailored to the appropriate length and advanced such that the dista l tip is at the cavoatrial junction. Spot image was obtained verifying placement. Catheter was fixe d to the skin and a sterile dressing was placed following hemostasis. Catheter was aspirated and flu shed with saline. Patient was discharged in stable condition without complication. Maximal barrier t echnique is utilized. Ultrasound image is documented on the chart. Ultrasound used with surface water technician nique. Fluoro time and fluoroscopic images submitted to document procedure: 2.2 minutes fluoroscopy time, 25 5 intraoperative C-arm images document the procedure. FINDINGS: There is patency of the left axillary and subclavian vein. Some mild narrowing suspected at the level of the level of the medial aspect of the left clavicle and anterior first rib. IMPRESSION: STATUS POST ULTRASOUND AND FLUOROSCOPIC GUIDED PICC LINE PLACEMENT, READY FOR USE. THIS PROCEDURE WAS PERFORMED BY THE UNDERSIGNED.
--- NOTE | 2018-05-30 11:12 | IR ---
Left upper extremity venogram HISTORY: PICC line placement See dictated report picc line same date
--- NOTE | 2018-05-30 13:36 | P.PN ---
Subjective Progress Note Date: 05/30/18 HISTORY OF PRESENT ILLNESS: Patient underwent CT guided drainage of abscess. Minimal drainage in collection bag. Patient states her pain is tolerable. Dr. George is on consult for antibiotic management. PHYSICAL EXAM: VITAL SIGNS: Currently stable. GENERAL: Well-developed in no acute distress. HEENT: No sclera icterus. Extraocular movements grossly intact. Moist buccal mucosa. Head is atraumatic, normocephalic. Hears conversational speech. No nasal drainage. NECK: Supple without lymphadenopathy. CHEST: Non-labored respirations and equal bilateral excursions. CARDIOVASCULAR: Regular rate with regular rhythm. Palpable 2+ radial pulses. ABDOMEN: Soft. Nondistended. Drainage bag present with minimal output. MUSCULOSKELETAL: No clubbing, cyanosis or edema. NEUROLOGIC: No focal or lateralizing signs. Cranial nerves II through XII grossly intact. PSYCH: Appropriate affect. Alert and oriented to person, place and time. SKIN: Well perfused. Good skin turgor. ASSESSMENT: 1. Perigastric abscess 2. Leukocytosis PLAN: 1. Continue full liquid diet 2. Continue antibiotics Nurse practitioner note has been reviewed by physician. Signing provider agrees with the documented findings, assessment, and plan of care. Objective - Vital Signs Vital signs: Vital Signs Temp 97.8 F 05/30/18 10:15 Pulse 99 05/30/18 10:15 Resp 18 05/30/18 10:15 BP 124/78 05/30/18 10:15 Pulse Ox 95 05/30/18 10:15 Intake & Output 05/29/18 05/30/18 05/30/18 18:59 06:59 18:59 Intake Total 200 Balance 200 Intake: Oral 200 Other: # Voids 4 1 - Labs CBC & Chem 7: 05/29/18 08:13 05/28/18 09:36 Labs: Microbiology - Last 24 Hours (Table) 05/29/18 14:30 Gram Stain - Preliminary Aspirate Body Fluid Culture - Preliminary 05/28/18 01:06 Blood Culture - Preliminary Blood No Growth after 48 hours
[2018-05-30] MEDS: MULTIVITAMINS, THERA 1 EACH TAB PO SCH (13:53)
[2018-05-30] MEDS: ALBUTEROL NEBULIZED 2.5 MG/3 ML INHALATION PRN (15:45)
[2018-05-30 15:48] LABS: Glucose,Whole Blood 96 mg/dL (75-99)
[2018-05-30] MEDS: ONDANSETRON 4 MG/2 ML VIAL IVP PRN (23:08)
[2018-05-31] MEDS: metroNIDAZOLE-NS PMX 500 MG in SALINE 1 100ML.BAG IVPB SCH ×4 (00:35→23:25)
[2018-05-31] MEDS: HYDROmorphone 0.5 MG/0.5 ML SYRINGE IVP PRN ×5 (00:39→23:24)
[2018-05-31] MEDS: HYDROcodone/APAP 10-325MG 1 EACH TAB PO PRN ×3 (03:06→19:45)
--- NOTE | 2018-05-31 05:42 | PN ---
PROGRESS NOTE DATE OF SERVICE: 05/30/2018. REASON FOR FOLLOWUP: Abdominal abscess. INTERVAL HISTORY: The patient is currently afebrile. She has been complaining of pain in the left lower chest area. After the patient did have CT-guided drainage of this abscess. Output not significant. Patient denies having any nausea, no vomiting. No abdominal pain. No diarrhea. PHYSICAL EXAMINATION: On examination, blood pressure is 158/91 with a pulse of 108, temperature is 97.5. She is 90% on 2 L nasal cannula. General description is a middle-aged female up in the bed in no distress. RESPIRATORY SYSTEM: Unlabored breathing with decreased breath sounds in the bases. No wheeze. HEART: S1, S2. Regular rate and rhythm. ABDOMEN: Soft, no tenderness. Cultures are currently pending. DIAGNOSTIC IMPRESSION AND PLAN: Patient with abdominal abscess status post CT-guided drainage. Cultures currently pending. She did get a PICC line for outpatient antibiotic therapy. If the cultures remain negative, she will be transitioned to Invanz 1 gram daily for at least [address] at that point. Oral Diflucan to be added. Continue supportive care. MMODL / IJN: [id number] /
[2018-05-31] MEDS: LEVOTHYROXINE 50 MCG TAB PO SCH (06:24)
[2018-05-31] MEDS: ACYCLOVIR 800 MG TAB PO SCH ×5 (06:24→23:36)
[2018-05-31] MEDS: ALBUTEROL NEBULIZED 2.5 MG/3 ML INHALATION PRN ×3 (07:52→19:34)
[2018-05-31] MEDS: PIPERACILLIN-TAZOBACTAM 3.375 GM in SODIUM CHLORIDE 0.9% 100 ML IVPB SCH ×3 (07:57→23:25)
[2018-05-31 08:03] LABS: Anisocytosis Slight; HCT 37.4 % (34.0-46.0); HGB 11.9 gm/dL (11.4-16.0); Hypochromasia Slight; MCH 29.9 pg (25.0-35.0); MCHC 31.8 g/dL (31.0-37.0); MCV 93.8 fL (80.0-100.0); Mean Platelet Volume 6.6; Platelet Count 715 k/uL (150-450); RBC 3.98 m/uL (3.80-5.40); RDW 16.1 % (11.5-15.5); WBC 23.8 k/uL (3.8-10.6)
[2018-05-31] MEDS: PANTOPRAZOLE 40 MG TABLET PO SCH (08:05)
[2018-05-31] MEDS: MULTIVITAMINS, THERA 1 EACH TAB PO SCH (08:05)
[2018-05-31] MEDS: SERTRALINE 100 MG TAB PO SCH (08:05)
[2018-05-31] MEDS: SODIUM CHLORIDE 0.9% 1,000 ML IV SCH ×2 (08:06→19:39)
--- NOTE | 2018-05-31 09:05 | P.PN ---
Subjective Progress Note Date: 05/31/18 Principal diagnosis: perigastric abscess the patient underwent CT-guided drainage of her perigastric abscess 2 days ago. She has some complaints of pain along the drainage catheter site. She has been tolerating full liquid diet. She's had no fevers. The patient's white count has climbed slightly today to 23,000. It was previously 19,000. There has been minimal output through the drain. Objective - Vital Signs Vital signs: Vital Signs Temp 98.7 F 05/31/18 07:06 Pulse 100 05/31/18 08:02 Resp 16 05/31/18 07:06 BP 128/80 05/31/18 07:06 Pulse Ox 96 05/31/18 07:06 Intake & Output 05/30/18 05/31/18 05/31/18 18:59 06:59 18:59 Intake Total 800 100 Balance 800 100 Intake: Intake, IV Titration 800 Amount Piperacillin-Tazobactam 3 100 .375 gm In Sodium Chloride 0.9% 100 ml @ 25 mls/hr IVPB Q8HR YOLANDA Rx# :[id number] Sodium Chloride 0.9% 1, 600 000 ml @ 75 mls/hr IV . [id number] YOLANDA Rx#:[id number] metroNIDAZOLE-NS PMX 500 100 mg In Saline 1 100ml.bag @ 100 mls/hr IVPB Q8H YOLANDA Rx#:[id number] Oral 100 Other: Voiding Method Toilet # Voids 3 - Constitutional General appearance: Present: cooperative, no acute distress - Gastrointestinal Gastrointestinal Comment(s): abdomen soft. There is some minimal epigastric tenderness. There is no rebound or guarding. - Labs CBC & Chem 7: 05/31/18 07:47 05/28/18 09:36 Labs: Abnormal Lab Results - Last 24 Hours (Table) 05/31/18 Range/Units 07:47 WBC 23.8 H (3.8-10.6) k/uL RDW 16.1 H (11.5-15.5) % Plt Count 715 H (150-450) k/uL Microbiology - Last 24 Hours (Table) 05/28/18 01:06 Blood Culture - Preliminary Blood No Growth after 72 hours 05/29/18 14:30 Gram Stain - Preliminary Aspirate Body Fluid Culture - Preliminary Assessment and Plan Plan: status post CT-guided drainage of perigastric abscess. The patient continue IV antibiotics.blood cultures and drain cultures ado not show any growth thus far. Patient will remain on IV antibiotic. Her CBC will be repeated in the a.m. Infectious disease will adjust antibiotics as required. Dr. Pantoja will be covering [facility] for the remainder of the week. I will be out of town.
[2018-05-31] MEDS: FLUCONAZOLE IN NACL,ISO-OSM 200 MG in SALINE 1 100ML.BAG IVPB SCH (11:51)
[2018-06-01] MEDS: ALBUTEROL NEBULIZED 2.5 MG/3 ML INHALATION PRN ×5 (00:19→21:37)
[2018-06-01] MEDS: HYDROmorphone 0.5 MG/0.5 ML SYRINGE IVP PRN ×4 (03:18→22:27)
[2018-06-01] MEDS: LEVOTHYROXINE 50 MCG TAB PO SCH (05:56)
[2018-06-01] MEDS: ACYCLOVIR 800 MG TAB PO SCH ×5 (05:56→23:41)
--- NOTE | 2018-06-01 05:58 | PN ---
PROGRESS NOTE DATE OF SERVICE: 05/31/2018 REASON FOR FOLLOWUP: Abdominal abscess. INTERVAL HISTORY: The patient is afebrile. She has been complaining of pain in the left abdominal area. Some shortness of breath. No nausea, no vomiting. No diarrhea. PHYSICAL EXAMINATION: On examination, blood pressure 123/82 with a pulse of 97, temperature 98.3. She is 96% on room air. General description is a middle-aged female up in the chair in no distress. RESPIRATORY SYSTEM: Unlabored breathing with decreased breath sounds in the bases. No wheeze. HEART: S1, S2. Regular rate and rhythm. ABDOMEN: Soft, no tenderness. LABS: Hemoglobin is 11.9, white count 23.8. The CT-guided fluid cultures currently pending. DIAGNOSTIC IMPRESSION AND PLAN: 1. Patient with abdominal abscess status post CT-guided drainage in this patient who did have a prior history of gastric sleeve leak and abdominal abscess. The patient is currently on Zosyn. Will add Diflucan and continue to monitor the culture closely. 2. The patient advised incentive spirometry pneumonia or any complication. Continue supportive care. MMODL / IJN: [id number] /
[2018-06-01] MEDS: HYDROcodone/APAP 10-325MG 1 EACH TAB PO PRN ×2 (05:59→18:31)
[2018-06-01] MEDS: SERTRALINE 100 MG TAB PO SCH (08:20)
[2018-06-01] MEDS: FLUCONAZOLE IN NACL,ISO-OSM 200 MG in SALINE 1 100ML.BAG IVPB SCH (08:20)
[2018-06-01] MEDS: PIPERACILLIN-TAZOBACTAM 3.375 GM in SODIUM CHLORIDE 0.9% 100 ML IVPB SCH ×3 (08:20→22:30)
[2018-06-01] MEDS: PANTOPRAZOLE 40 MG TABLET PO SCH (08:20)
[2018-06-01] MEDS: MULTIVITAMINS, THERA 1 EACH TAB PO SCH (08:20)
[2018-06-01 09:08] LABS: Anisocytosis Slight; Basophils # (A) 0.1 k/uL (0-0.2); Basophils % (A) 0 %; Eosinophils # (A) 0.3 k/uL (0-0.7); Eosinophils % (A) 1 %; HCT 32.4 % (34.0-46.0); HGB 10.3 gm/dL (11.4-16.0); Hypochromasia Slight; Lymphocytes # (A) 2.5 k/uL (1.0-4.8); Lymphocytes % (A) 12 %; MCH 29.8 pg (25.0-35.0); MCHC 31.8 g/dL (31.0-37.0); MCV 93.8 fL (80.0-100.0); Mean Platelet Volume 6.8; Monocytes # (A) 1.8 k/uL (0-1.0); Monocytes % (A) 8 %; Neutrophils # (A) 16.8 k/uL (1.3-7.7); Neutrophils % (A) 78 %; Platelet Count 645 k/uL (150-450); RBC 3.46 m/uL (3.80-5.40); RDW 16.3 % (11.5-15.5); WBC 21.7 k/uL (3.8-10.6)
[2018-06-01] MEDS: metroNIDAZOLE-NS PMX 500 MG in SALINE 1 100ML.BAG IVPB SCH ×2 (09:36→16:11)
[2018-06-01] MEDS ORDERED: VANCOMYCIN IV PER PHARMACY 1 EACH MISC MISCELLANE PRN (11:05)
[2018-06-01] MEDS: VANCOMYCIN 1,500 MG in SODIUM CHLORIDE 0.9% 250 ML IVPB SCH ×2 (12:32→20:14)
[2018-06-01] MEDS: SODIUM CHLORIDE 0.9% 1,000 ML IV SCH ×2 (12:33→22:36)
--- NOTE | 2018-06-01 12:36 | P.PN ---
<Yael Thrasher A - Last Filed: 06/01/18 12:35> Subjective Progress Note Date: 06/01/18 HISTORY OF PRESENT ILLNESS: Patient s/p CT guided drainage of abscess. Minimal drainage in collection bag. Patient states her pain is tolerable. Dr. George is on consult for antibiotic management. WBC is 21.7 today down from 23.8. PHYSICAL EXAM: VITAL SIGNS: Currently stable. GENERAL: Well-developed in no acute distress. HEENT: No sclera icterus. Extraocular movements grossly intact. Moist buccal mucosa. Head is atraumatic, normocephalic. Hears conversational speech. No nasal drainage. NECK: Supple without lymphadenopathy. CHEST: Non-labored respirations and equal bilateral excursions. CARDIOVASCULAR: Regular rate with regular rhythm. Palpable 2+ radial pulses. ABDOMEN: Soft. Nondistended. Drainage bag present with minimal output. MUSCULOSKELETAL: No clubbing, cyanosis or edema. NEUROLOGIC: No focal or lateralizing signs. Cranial nerves II through XII grossly intact. PSYCH: Appropriate affect. Alert and oriented to person, place and time. SKIN: Well perfused. Good skin turgor. ASSESSMENT: 1. Perigastric abscess 2. Leukocytosis PLAN: 1. Continue full liquid diet 2. Continue antibiotics 3. Monitor CBC 4. Await final antibiotic recommendations from Dr. George Nurse practitioner note has been reviewed by physician. Signing provider agrees with the documented findings, assessment, and plan of care. Objective - Vital Signs Vital signs: Vital Signs Temp 99.0 F 06/01/18 06:53 Pulse 108 H 06/01/18 12:28 Resp 16 06/01/18 06:53 BP 129/80 06/01/18 06:53 Pulse Ox 96 06/01/18 06:53 Intake & Output 05/31/18 06/01/18 06/01/18 18:59 06:59 18:59 Intake Total 2100 Output Total 10 0 Balance 2090 0 Weight 91.399 kg Intake: IV 900 Fluconazole in NaCl,Iso- 100 Osm 200 mg In Saline 1 100ml.bag @ 100 mls/hr IVPB DAILY [facility] Rx#: [id number] Piperacillin-Tazobactam 3 100 .375 gm In Sodium Chloride 0.9% 100 ml @ 25 mls/hr IVPB Q8HR [facility] Rx# :[id number] Sodium Chloride 0.9% 1, 600 000 ml @ 75 mls/hr IV . [id number] [facility] Rx#:[id number] metroNIDAZOLE-NS PMX 500 100 mg In Saline 1 100ml.bag @ 100 mls/hr IVPB Q8H [facility] Rx#:[id number] Oral 1200 Output: Drainage 10 0 Left Abdomen 10 0 Other: Voiding Method Toilet # Voids 1 1 - Labs CBC & Chem 7: 06/01/18 08:25 05/28/18 09:36 Labs: Abnormal Lab Results - Last 24 Hours (Table) 06/01/18 Range/Units 08:25 WBC 21.7 H (3.8-10.6) k/uL RBC 3.46 L (3.80-5.40) m/uL Hgb 10.3 L (11.4-16.0) gm/dL Hct 32.4 L (34.0-46.0) % RDW 16.3 H (11.5-15.5) % Plt Count 645 H (150-450) k/uL Neutrophils # 16.8 H (1.3-7.7) k/uL Monocytes # 1.8 H (0-1.0) k/uL Microbiology - Last 24 Hours (Table) 05/29/18 14:30 Gram Stain - Preliminary Aspirate Body Fluid Culture - Preliminary Coagulase Negative Staph 05/28/18 01:06 Blood Culture - Preliminary Blood No Growth after 96 hours <Gm Lozoya - Last Filed: 06/01/18 18:37> Subjective Patient doing better. White blood cell count improved today. She states her pain is slightly better in the left shoulder. Planing of some mild pain at the insertion site. Drainage is been relatively low in volume. She is tolerating liquids. She is afebrile. Remains slightly tachycardic. Continue antibiotics. Follow cultures. Continue hospital stay. Objective - Vital Signs Vital signs: Vital Signs Temp 97.4 F L 06/01/18 14:14 Pulse 106 H 06/01/18 17:30 Resp 18 06/01/18 14:14 BP 142/84 06/01/18 14:14 Pulse Ox 96 06/01/18 17:19 Intake & Output 05/31/18 06/01/18 06/01/18 18:59 06:59 18:59 Intake Total 2100 1750 Output Total 10 0 0 Balance 2090 0 1750 Weight 91.399 kg Intake: IV 900 1150 Fluconazole in NaCl,Iso- 100 100 Osm 200 mg In Saline 1 100ml.bag @ 100 mls/hr IVPB DAILY [facility] Rx#: [id number] Piperacillin-Tazobactam 3 100 100 .375 gm In Sodium Chloride 0.9% 100 ml @ 25 mls/hr IVPB Q8HR [facility] Rx# :[id number] Sodium Chloride 0.9% 1, 600 600 000 ml @ 75 mls/hr IV . [id number] [facility] Rx#:[id number] Vancomycin 1,500 mg In 250 Sodium Chloride 0.9% 250 ml @ 125 mls/hr IVPB Q8H [facility] Rx#:[id number] metroNIDAZOLE-NS PMX 500 100 100 mg In Saline 1 100ml.bag @ 100 mls/hr IVPB Q8H [facility] Rx#:[id number] Oral 1200 600 Output: Drainage 10 0 0 Left Abdomen 10 0 0 Other: Voiding Method Toilet Toilet # Voids 1 1 1 - Labs CBC & Chem 7: 06/01/18 08:25 05/28/18 09:36 Labs: Abnormal Lab Results - Last 24 Hours (Table) 06/01/18 Range/Units 08:25 WBC 21.7 H (3.8-10.6) k/uL RBC 3.46 L (3.80-5.40) m/uL Hgb 10.3 L (11.4-16.0) gm/dL Hct 32.4 L (34.0-46.0) % RDW 16.3 H (11.5-15.5) % Plt Count 645 H (150-450) k/uL Neutrophils # 16.8 H (1.3-7.7) k/uL Monocytes # 1.8 H (0-1.0) k/uL Microbiology - Last 24 Hours (Table) 05/29/18 14:30 Gram Stain - Preliminary Aspirate Body Fluid Culture - Preliminary Coagulase Negative Staph 05/28/18 01:06 Blood Culture - Preliminary Blood No Growth after 96 hours
[2018-06-02] MEDS: metroNIDAZOLE-NS PMX 500 MG in SALINE 1 100ML.BAG IVPB SCH ×2 (00:19→08:12)
[2018-06-02] MEDS: VANCOMYCIN 1,500 MG in SODIUM CHLORIDE 0.9% 250 ML IVPB SCH ×2 (03:24→12:22)
[2018-06-02] MEDS: HYDROcodone/APAP 10-325MG 1 EACH TAB PO PRN ×2 (03:29→11:35)
[2018-06-02] MEDS: ALBUTEROL NEBULIZED 2.5 MG/3 ML INHALATION PRN ×2 (04:26→08:43)
--- NOTE | 2018-06-02 05:11 | PN ---
PROGRESS NOTE DATE OF SERVICE: 06/01/2018 REASON FOR FOLLOWUP: Abdominal abscess. INTERVAL HISTORY: The patient is currently afebrile. She is breathing slightly comfortably. Denies having any chest pain. Pain to the left upper abdominal area has slightly decreased when compared to yesterday. No nausea or vomiting and no diarrhea. PHYSICAL EXAMINATION: On examination, blood pressure is 142/84 with a pulse of 100. Temperature 97.4. She is 94% 2 L nasal cannula. General description is a middle-aged female up in the chair in no distress. RESPIRATORY SYSTEM: Unlabored breathing with decreased breath sounds at the bases. No wheeze. HEART: S1, S2. Regular rate and rhythm. ABDOMEN: Soft, no tenderness. Drainage catheter with . LABS: Hemoglobin is 10.3, white count 21.7. Abdominal aspirate culture coagulase negative staph. Blood culture has been negative. DIAGNOSTIC IMPRESSION AND PLAN: Patient with abdominal abscess status post CT-guided drainage. Culture now showing a coagulase-negative Staph. We will add vancomycin and if the patient white count did show significant improvement plan to discharge her home tomorrow on IV vancomycin in addition to oral Flagyl and close outpatient followup. Continue with supportive care. MMODL / IJN: [id number] /
[2018-06-02] MEDS: LEVOTHYROXINE 50 MCG TAB PO SCH (05:36)
[2018-06-02] MEDS: ACYCLOVIR 800 MG TAB PO SCH ×3 (05:36→15:42)
[2018-06-02] MEDS: PANTOPRAZOLE 40 MG TABLET PO SCH (08:09)
[2018-06-02] MEDS: SERTRALINE 100 MG TAB PO SCH (08:09)
[2018-06-02 09:50] LABS: Basophils # (A) 0.1 k/uL (0-0.2); Basophils % (A) 0 %; Eosinophils # (A) 0.3 k/uL (0-0.7); Eosinophils % (A) 1 %; HCT 36.2 % (34.0-46.0); HGB 11.1 gm/dL (11.4-16.0); Hypochromasia Moderate; Lymphocytes # (A) 3.7 k/uL (1.0-4.8); Lymphocytes % (A) 16 %; MCH 28.4 pg (25.0-35.0); MCHC 30.6 g/dL (31.0-37.0); MCV 92.8 fL (80.0-100.0); Mean Platelet Volume 6.6; Monocytes % (A) 9 %; Neutrophils # (A) 16.9 k/uL (1.3-7.7); Neutrophils % (A) 72 %; Platelet Count 712 k/uL (150-450); WBC 23.4 k/uL (3.8-10.6)
[2018-06-02 10:03] LABS: Anion Gap 14 mmol/L; Blood Urea Nitrogen 4 mg/dL (7-17); Calcium 9.1 mg/dL (8.4-10.2); Carbon Dioxide 23 mmol/L (22-30); Chloride 104 mmol/L (98-107); Glucose 94 mg/dL (74-99); Potassium 3.3 mmol/L (3.5-5.1); Sodium 141 mmol/L (137-145)
[2018-06-02 10:17] VITALS: RESP 20
[2018-06-02] MEDS: FLUCONAZOLE IN NACL,ISO-OSM 200 MG in SALINE 1 100ML.BAG IVPB SCH (10:27)
[2018-06-02] MEDS: PIPERACILLIN-TAZOBACTAM 3.375 GM in SODIUM CHLORIDE 0.9% 100 ML IVPB SCH ×2 (10:29→15:40)
--- NOTE | 2018-06-02 10:49 | P.PN ---
Addendum entered and electronically signed by Yael Thrasher NP-C 06/02/18 12: 46: CT scan shows left pleural effusion. Dr. Lozoya would like pulmonary consulted for evaluation. CT scan also shows drainage bag at the end of collection and may be incompletely within the structure. Will have interventional radiology review and determine if catheter needs to be adjusted for optimal drainage. Also discussed with Dr. George. Original Note: <Yael Thrasher - Last Filed: 06/02/18 12:31> Subjective Progress Note Date: 06/02/18 HISTORY OF PRESENT ILLNESS: Patient s/p CT guided drainage of abscess. Minimal drainage in collection bag. Patient complains of increased pain to abdomen this morning. WBC increased to 23.4. Remains tachycardic. Afebrile. Dr. George is on consult for antibiotic management. PHYSICAL EXAM: VITAL SIGNS: Currently stable. GENERAL: Well-developed in no acute distress. HEENT: No sclera icterus. Extraocular movements grossly intact. Moist buccal mucosa. Head is atraumatic, normocephalic. Hears conversational speech. No nasal drainage. NECK: Supple without lymphadenopathy. CHEST: Non-labored respirations and equal bilateral excursions. CARDIOVASCULAR: Regular rate with regular rhythm. Palpable 2+ radial pulses. ABDOMEN: Soft. Nondistended. Drainage bag present with minimal output. MUSCULOSKELETAL: No clubbing, cyanosis or edema. NEUROLOGIC: No focal or lateralizing signs. Cranial nerves II through XII grossly intact. PSYCH: Appropriate affect. Alert and oriented to person, place and time. SKIN: Well perfused. Good skin turgor. ASSESSMENT: 1. Perigastric abscess 2. Leukocytosis, worsening PLAN: 1. Continue full liquid diet 2. Continue antibiotics 3. Monitor CBC 4. Repeat CT abdomen/pelvis due to increasing WBC and increased abdominal pain Nurse practitioner note has been reviewed by physician. Signing provider agrees with the documented findings, assessment, and plan of care. Objective - Vital Signs Vital signs: Vital Signs Temp 98.5 F 06/02/18 09:26 Pulse 98 06/02/18 10:13 Resp 20 06/02/18 10:13 BP 118/75 06/02/18 06:05 Pulse Ox 94 L 06/02/18 08:45 Intake & Output 06/01/18 06/02/18 06/02/18 18:59 06:59 18:59 Intake Total 1750 Output Total 0 Balance 1750 Intake: IV 1150 Fluconazole in NaCl,Iso- 100 Osm 200 mg In Saline 1 100ml.bag @ 100 mls/hr IVPB DAILY [facility] Rx#: [id number] Piperacillin-Tazobactam 3 100 .375 gm In Sodium Chloride 0.9% 100 ml @ 25 mls/hr IVPB Q8HR [facility] Rx# :[id number] Sodium Chloride 0.9% 1, 600 000 ml @ 75 mls/hr IV . [id number] [facility] Rx#:[id number] Vancomycin 1,500 mg In 250 Sodium Chloride 0.9% 250 ml @ 125 mls/hr IVPB Q8H [facility] Rx#:[id number] metroNIDAZOLE-NS PMX 500 100 mg In Saline 1 100ml.bag @ 100 mls/hr IVPB Q8H [facility] Rx#:[id number] Oral 600 Output: Drainage 0 Left Abdomen 0 Other: Voiding Method Toilet Toilet # Voids 1 5 # Bowel Movements 1 - Labs CBC & Chem 7: 06/02/18 09:17 06/02/18 09:17 Labs: Abnormal Lab Results - Last 24 Hours (Table) 06/02/18 06/02/18 Range/Units 09:17 09:17 WBC 23.4 H (3.8-10.6) k/uL Hgb 11.1 L (11.4-16.0) gm/dL MCHC 30.6 L (31.0-37.0) g/dL RDW 16.0 H (11.5-15.5) % Plt Count 712 H (150-450) k/uL Neutrophils # 16.9 H (1.3-7.7) k/uL Monocytes # 2.0 H (0-1.0) k/uL Potassium 3.3 L (3.5-5.1) mmol/L BUN 4 L (7-17) mg/dL Creatinine 0.46 L (0.52-1.04) mg/dL Microbiology - Last 24 Hours (Table) 05/29/18 14:30 Gram Stain - Preliminary Aspirate Body Fluid Culture - Preliminary Staphylococcus epidermidis 05/28/18 01:06 Blood Culture - Preliminary Blood No Growth after 120 hours <Gm Lozoya - Last Filed: 06/02/18 17:23> Subjective As above. Patient says her pain is about the same as yesterday. White blood cell count did increase slightly. Mild tachycardia. No fevers. CAT scan was performed which showed new left pleural effusion. Pulmonary was consulted. They felt that the recurrent left pleural effusion require tertiary care evaluation for proper management. Patient is already familiar with the physicians at [facility]. Patient is agreeable to transfer. We'll plan transfer this evening. Objective - Vital Signs Vital signs: Vital Signs Temp 99.3 F 06/02/18 15:00 Pulse 91 06/02/18 15:00 Resp 20 06/02/18 15:44 BP 125/77 06/02/18 15:00 Pulse Ox 96 06/02/18 15:00 Intake & Output 06/01/18 06/02/18 06/02/18 18:59 06:59 18:59 Intake Total 1750 Output Total 0 Balance 1750 Intake: IV 1150 Fluconazole in NaCl,Iso- 100 Osm 200 mg In Saline 1 100ml.bag @ 100 mls/hr IVPB DAILY [facility] Rx#: [id number] Piperacillin-Tazobactam 3 100 .375 gm In Sodium Chloride 0.9% 100 ml @ 25 mls/hr IVPB Q8HR [facility] Rx# :[id number] Sodium Chloride 0.9% 1, 600 000 ml @ 75 mls/hr IV . [id number] [facility] Rx#:[id number] Vancomycin 1,500 mg In 250 Sodium Chloride 0.9% 250 ml @ 125 mls/hr IVPB Q8H [facility] Rx#:[id number] metroNIDAZOLE-NS PMX 500 100 mg In Saline 1 100ml.bag @ 100 mls/hr IVPB Q8H [facility] Rx#:[id number] Oral 600 Output: Drainage 0 Left Abdomen 0 Other: Voiding Method Toilet Toilet # Voids 1 5 2 # Bowel Movements 1 - Labs CBC & Chem 7: 06/02/18 09:17 06/02/18 09:17 Labs: Abnormal Lab Results - Last 24 Hours (Table) 06/02/18 06/02/18 Range/Units 09:17 09:17 WBC 23.4 H (3.8-10.6) k/uL Hgb 11.1 L (11.4-16.0) gm/dL MCHC 30.6 L (31.0-37.0) g/dL RDW 16.0 H (11.5-15.5) % Plt Count 712 H (150-450) k/uL Neutrophils # 16.9 H (1.3-7.7) k/uL Monocytes # 2.0 H (0-1.0) k/uL Potassium 3.3 L (3.5-5.1) mmol/L BUN 4 L (7-17) mg/dL Creatinine 0.46 L (0.52-1.04) mg/dL Microbiology - Last 24 Hours (Table) 05/29/18 14:30 Gram Stain - Preliminary Aspirate Body Fluid Culture - Preliminary Staphylococcus epidermidis Yeast species 05/28/18 01:06 Blood Culture - Preliminary Blood No Growth after 120 hours
[2018-06-02] MEDS: MULTIVITAMINS, THERA 1 EACH TAB PO SCH (11:36)
[2018-06-02] MEDS: ONDANSETRON 4 MG/2 ML VIAL IVP PRN (11:38)
--- NOTE | 2018-06-02 12:06 | CT ---
EXAMINATION TYPE: CT abdomen pelvis wo con DATE OF EXAM: 06/02/2018 COMPARISON: 05/28/2018 INDICATION: abdominal pain, increased WBC. DLP: 890.9 mGycm, Automated exposure control for dose reduction was used. CONTRAST: 0 mL of Isovue 300. Study performed without Oral Contrast TECHNIQUE: Axial images were obtained from above the diaphragm to the pubic rami in the axial plane a t 5 mm thick sections. Reconstructed images are reviewed on the computer in the coronal plane. FINDINGS: Limited CT sections are obtained the lung bases. There is small left pleural effusion. Some adjacent compressive atelectasis present. Mild atelectasis at the right lung base. Mild coronary artery calci fication is noted. CT ABDOMEN: There is a collection within the left upper quadrant. Drainage catheter is at the edge of this collection. This is stable in size in comparison this is estimated to measure 4.8 cm in diamete r currently. There is a periumbilical area of inflammatory change which likely postsurgical in nature. No free air is within the abdomen. Liver: Normal Spleen: Surgically absent Pancreas: Normal Adrenal glands: The adrenal glands are normal. Gallbladder: Normal Kidneys: No masses are evident. No hydronephrosis is present. No cysts are present. There is a 0.4 cm calcification within the mid lateral left kidney. Punctate calcification in the mid left renal hi lum is felt to be vascular. Aorta: Vascular calcification is within the aorta. Inferior vena cava: Normal. CT PELVIS: Loops of bowel within the abdomen and pelvis are normal. Study is without oral contrast limiting bowel evaluation. Appendix: Normal as visualized. Urinary bladder: Normal. Genitourinary structures: Uterus is normal. Adnexal regions are clear. Osseous structures: No suspicious lytic or sclerotic lesions. Sacroiliac joint degenerative changes a re present. IMPRESSIONS: 1. Abscess within the left upper quadrant appears stable in size currently measuring 4.8 cm. Drainag e catheter is adjacent may be incompletely within this structure. 2. Nonobstructing left renal stone
--- NOTE | 2018-06-02 12:35 | P.CNPUL ---
History of Present Illness Consult date: 06/02/18 Requesting physician: Gm Lozoya Reason for consult: pleural effusion Chief complaint: Abdominal pain and elevated WBC count History of present illness: This is a 43-year-old female who is quite familiar to my service, patient had previous gastric sleeve procedure in February of 2018, developed intra- abdominal hemorrhage in March of 2018, and she underwent expiratory laparotomy and splenectomy at the time. Then she developed postoperative ARDS, she was on mechanical ventilation for quite some time, and she was difficult wean. She eventually require tracheostomy, in April of 2018, patient was found to have a leak from her gastric sleeve. She was sent to [facility], and she underwent advanced endoscopic procedure to repair the leak. Apparently she had successful leak repair. Multiple scans of the abdomen at [facility] showed resolution of the leak and resolution of very gastric abscess. However patient came back this time on 05/27/2018, complaining of abdominal pain and she was told that her white count was elevated in the rehab facility. She was actually in rehab until 3 days prior to admission. Repeat computed tomography scan of the abdomen the night of admission showed a collection of air and fluid near the stomach. Patient underwent CT-guided drainage of perigastric abscess, and her most recent CT of the abdomen showed a small left pleural effusion. Hence I was asked to see the patient on consultation. On the CT of the chest, the pleural effusion seems to be small, however considering the proximity to the perigastric abscess, I have recommended ultrasound-guided thoracentesis by interventional radiology and if complicated the patient will have a pigtail catheter placed in the pleural space. In the meantime the patient has intermittent episodes of abdominal pain , some shortness of breath, occasional cough and wheezing, no nausea no vomiting , no diarrhea, no constipation, no hematemesis no dysuria and no frequency no urgency. Review of Systems 14 point review of systems were obtained, please refer to pertinent positives in HPI, otherwise remaining systems are negative. Past Medical History Past Medical History: Asthma, COPD, GERD/Reflux, Hypertension, Sleep Apnea/CPAP/ BIPAP, Thyroid Disorder Additional Past Medical History / Comment(s): COPD, smoking-related interstitial lung disease, obstructive sleep apnea, morbid obesity, history of seizure disorder the age of 16 related to diet pills, endometriosis, chronic back pain, plantar fasciitis, Tran history of Achilles tendinitis, probably antibiotic induced. She also has history of hypothyroidism, ALLERGIC rhinitis History of Any Multi-Drug Resistant Organisms: None Reported Past Surgical History: Bariatric Surgery, Tubal Ligation Additional Past Surgical History / Comment(s): LEEP PROCEDURE X 2, EGD, BACK INJECTIONS FOR PAIN. The patient has also undergone thoracic/thoracoscopic wedge biopsy of the right lung. 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 Does not work outside of the home at this time. Adult children. No experience. Some international travel. No animal exposures. They have been working on getting up at mother's home and does have exposure to that environment. Smoking Status: Former smoker Past Alcohol Use History: Occasional Additional Past Alcohol Use History / Comment(s): STARTED SMOKING AT AGE 14 - STOPPED SMOKING on November 23, 2017. (Heaviest smoking amount was 3/4 pack/day) Past Drug Use History: None Reported - Past Family History Sister(s) Family Medical History: Cancer Father Family Medical History: Congestive Heart Failure (CHF), COPD Additional Family Medical History / Comment(s): from heart attack Mother Family Medical History: Cancer Additional Family Medical History / Comment(s): breast cancer Medications and Allergies Home Medications Medication Instructions Recorded Confirmed Type Levothyroxine Sodium [Synthroid] 50 mcg PO QAM 01/05/14 05/28/18 History Hydrocodone/Acetaminophen [[place] 1 tab PO TID PRN 10/17/16 05/28/18 History 10-325] Umeclidinium Brm/Vilanterol Tr 2 puff INHALATION RT-DAILY 10/17/16 05/28/18 History [Anoro Ellipta 62.5-25 Mcg INH] ALPRAZolam [Xanax] 0.5 mg PO TID PRN 11/24/17 05/28/18 History Sertraline [Zoloft] 100 mg PO DAILY 02/23/18 05/28/18 History Albuterol Nebulized [Ventolin 2.5 mg INHALATION RT-Q4H PRN 05/28/18 05/28/18 History Nebulized] Multivitamins, Thera [Multivitamin 1 tab PO DAILY 05/28/18 05/28/18 History (formulary)] Ondansetron [Zofran] 4 mg PO Q12HR PRN 05/28/18 05/28/18 History Pantoprazole Sodium [Protonix] 40 mg PO DAILY 05/28/18 05/28/18 History Allergies Allergy/AdvReac Type Severity Reaction Status Date / Time bee venom protein (honey bee) Allergy Unknown Verified 05/28/18 08:14 nitrofurantoin Allergy Rash/Hives Verified 05/28/18 08:14 [From Macrobid] nitrofurantoin Allergy Rash/Hives Verified 05/28/18 08:14 macrocrystalline [From Macrobid] moxifloxacin [From Avelox] AdvReac Nausea & Verified 05/28/18 08:14 Vomiting seasonal allergies AdvReac Unknown Uncoded 05/27/18 21:48 Physical Exam Vitals: Vital Signs Temp Pulse Pulse Resp BP Pulse Ox 06/02/18 10:13 98 20 06/02/18 09:26 98.5 F 06/02/18 08:56 102 H 12 06/02/18 08:45 104 H 12 94 L 06/02/18 06:05 98.3 F 98 20 118/75 96 06/02/18 04:37 100 06/02/18 04:26 100 06/01/18 22:23 98.0 F 101 H 20 137/90 97 06/01/18 21:48 102 H 06/01/18 21:37 102 H 06/01/18 17:30 106 H 06/01/18 17:19 106 H 96 06/01/18 14:14 97.4 F L 109 H 18 142/84 94 L 06/01/18 12:45 100 06/01/18 12:28 108 H Intake and Output 06/01/18 06/02/18 06/02/18 22:59 06:59 14:59 Intake Total 600 Output Total 0 Balance 600 Intake: Oral 600 Output: Drainage 0 Left Abdomen 0 Other: Voiding Method Toilet Toilet # Voids 1 5 # Bowel Movements 1 GENERAL: Revealed a 43-year-old female in no distress. HEENT: PERRLA, EOMI, no icterus, moist mucous membranes, neck is supple, no neck masses, no JVD, no stridor. Head is atraumatic, normocephalic. NECK: Supple without lymphadenopathy. CHEST: Slightly diminished breath sounds at the left base with dullness, no crackles nor rhonchi no wheezes were appreciated. CARDIOVASCULAR: Distant S1 and S2, no S3 gallop. No murmur.. ABDOMEN: Obese, soft, nontender, no drainage back and drainage catheter noted in the left upper quadrant. Extremities: No clubbing edema or cyanosis. NEUROLOGIC: Alert oriented 3, no gross focal neurologic deficit PSYCH: Normal mood affect and mental status examination.. SKIN: No rashes, good skin turgor. Results - Laboratory Findings CBC and BMP: 06/02/18 09:17 06/02/18 09:17 PT/INR, D-dimer PT 11.9 sec (9.0-12.0) 05/29/18 10:34 INR 1.1 (<1.2) 05/29/18 10:34 Abnormal lab findings: Abnormal Labs 05/27/18 05/27/18 05/27/18 00:30 00:30 22:35 WBC 20.9 H RBC 3.76 L Hgb 10.7 L Hct MCHC 30.8 L RDW 16.3 H Plt Count 662 H Neutrophils # 14.0 H Monocytes # 1.8 H Potassium BUN Creatinine 0.42 L AST 72 H Albumin Ur Leukocyte Esterase Trace H Urine WBC Clumps Rare H Urine Bacteria Rare H 05/28/18 05/28/18 05/29/18 09:36 09:36 08:13 WBC 17.7 H 18.4 H RBC 3.61 L 3.35 L Hgb 10.3 L 10.1 L Hct 33.7 L 31.1 L MCHC 30.7 L RDW 16.2 H 16.3 H Plt Count 600 H 596 H Neutrophils # Monocytes # Potassium BUN 5 L Creatinine 0.45 L AST Albumin 3.1 L Ur Leukocyte Esterase Urine WBC Clumps Urine Bacteria 05/31/18 06/01/18 06/02/18 07:47 08:25 09:17 WBC 23.8 H 21.7 H 23.4 H RBC 3.46 L Hgb 10.3 L 11.1 L Hct 32.4 L MCHC 30.6 L RDW 16.1 H 16.3 H 16.0 H Plt Count 715 H 645 H 712 H Neutrophils # 16.8 H 16.9 H Monocytes # 1.8 H 2.0 H Potassium BUN Creatinine AST Albumin Ur Leukocyte Esterase Urine WBC Clumps Urine Bacteria 06/02/18 09:17 WBC RBC Hgb Hct MCHC RDW Plt Count Neutrophils # Monocytes # Potassium 3.3 L BUN 4 L Creatinine 0.46 L AST Albumin Ur Leukocyte Esterase Urine WBC Clumps Urine Bacteria - Diagnostic Findings Chest x-ray: image reviewed (Chest x-ray is actually not showing any pleural effusion however CT of the abdomen which was done today showed a small left pleural effusion.) Assessment and Plan Assessment: Impression: 1. Perigastric abscess, status post CT-guided needle drainage done by interventional radiology. The abscess in the left upper quadrant is basically the same size and it was felt by the interventional radiologist that the catheter may not be completely within the structure of the abscess. 2 leukocytosis secondary to abscess 3 left pleural effusion, new in the last few days since admission, may be related to the perigastric abscess and may be complicated, hence I recommended ultrasound-guided thoracentesis by interventional radiology, and if complicated needs to have a pigtail catheter placement. 4 multiple postoperative complications related to her previous gastric sleeve surgery as noted in previous consultation. And history of ARDS requiring prolonged course of mechanical ventilation eventually tracheostomy which was the cannulated a while back. Recommendation: 1 continue antibiotics, 2 suggest reevaluation by interventional radiology to evaluate again for possible readjusting of the drainage catheter in the perigastric abscess and also consider ultrasound guided thoracentesis of the left pleural effusion as it may be complicated and may require pigtail catheter placement. 3 I had a long discussion with the patient herself, and she was recently at [facility], suggested to the patient that she may have to consider going back to [facility] since this was just recently addressed at [facility] in [place]. Not much could be done from my perspective at this point except the recommendations as above. We'll follow the patient on when necessary basis. Time with Patient: Greater than 30
[2018-06-02] MEDS: SODIUM CHLORIDE 0.9% 1,000 ML IV SCH (15:24)
[2018-06-02 15:51] VITALS: BP 125/77; PULSE 91; TEMP 99.3
--- NOTE | 2018-06-02 15:57 | PN ---
PROGRESS NOTE DATE OF SERVICE: 06/02/2018 REASON FOR FOLLOW UP: Abdominal abscess. INTERVAL HISTORY: The patient is afebrile. She is breathing slightly comfortably. Denies having any chest pain. No cough. Still she is complaining of pain in the left upper abdominal area mostly dull aching, no worsening. No nausea, vomiting, or any diarrhea. PHYSICAL EXAMINATION: Blood pressure is 118/75 with a pulse of 90, temperature 98.3. She is 96% on 2 L nasal cannula. General description is a middle-aged female up in the chair in no distress. Respiratory system: Unlabored breathing with decreased breath sounds in the bases. Heart: S1, S2. Regular rate and rhythm. ABDOMEN: Soft. No distention. No guarding or rigidity. Drainage catheter with no output. LABS: Hemoglobin 11.1, white count 3.4, BUN of 4, creatinine 0.46. The abdominal culture with yeast and Staph epi. DIAGNOSTIC IMPRESSION AND PLAN: Patient with abdominal abscess, culture with yeast and Staph epi. The patient is currently on fluconazole with Zosyn and vancomycin. She did have a repeat CT that showed persistent abscess and the drainage catheter is curved around for which the patient did have a repeat drainage procedure. recommending against it. The patient currently being transferred to [facility] for further management of the same. Continue supportive care. MMODL / IJN: [id number] /
[2018-06-02] MEDS: HYDROmorphone 0.5 MG/0.5 ML SYRINGE IVP PRN (18:45)
[2018-06-02] MEDS ORDERED: VANCOMYCIN TROUGH DUE 1 EACH MISC MISCELLANE ONE (19:00)
== END 2018-06-02 18:51 | disposition short-term general hospital (02) | DRG 862 ==
LOC: EC 21:40 → 4MS4W 05-28 00:45
PROVIDERS: ADMIT Surgery; ATTEND Surgery
PROC: 0W9G30Z Drainage of Peritoneal Cavity with Drainage Device, Percutaneous Approach (ICD-10-PCS; principal; 2018-05-29)
PROC: 02HV33Z Insertion of Infusion Device into Superior Vena Cava, Percutaneous Approach (ICD-10-PCS; 2018-05-30)
DX: T81.43XA Infection following a procedure, organ and space surgical site, initial encounter (principal); K65.1 Peritoneal abscess; J90 Pleural effusion, not elsewhere classified; J84.9 Interstitial pulmonary disease, unspecified; E03.9 Hypothyroidism, unspecified; F41.9 Anxiety disorder, unspecified; G47.33 Obstructive sleep apnea (adult) (pediatric); I10 Essential (primary) hypertension; K21.9 Gastro-esophageal reflux disease without esophagitis; E66.01 Morbid (severe) obesity due to excess calories; G89.29 Other chronic pain; M54.9 Dorsalgia, unspecified; J44.9 Chronic obstructive pulmonary disease, unspecified; M72.2 Plantar fascial fibromatosis; Z79.890 Hormone replacement therapy; Z79.899 Other long term (current) drug therapy; Z90.81 Acquired absence of spleen; Z98.84 Bariatric surgery status; Z68.38 Body mass index [BMI] 38.0-38.9, adult; Z87.891 Personal history of nicotine dependence; Z88.1 Allergy status to other antibiotic agents; Z91.030 Bee allergy status; Z80.3 Family history of malignant neoplasm of breast; Z82.49 Family history of ischemic heart disease and other diseases of the circulatory system; Z82.5 Family history of asthma and other chronic lower respiratory diseases
CPT/HCPCS: 36415; 36573; 71046; 74176; 74177; 75989; 80048; 80053; 81001; 83735; 85025; 85027; 85610; 87040; 87070; 87077; 87186; 87205; 87502; 93005; 94640; 94760; 96365; 99285

== ENCOUNTER → 2019-01-03 | Outpatient (CLI) | payer BC | END | disposition home or self-care (01) | LOC: CPPFTMAIN 11:41 | PROVIDERS: ATTEND Internal Medicine Critical Care Medicine | DX: J44.9 Chronic obstructive pulmonary disease, unspecified (principal); I99.8 Other disorder of circulatory system | CPT/HCPCS: 94060; 94726; 94729 ==

== ENCOUNTER → 2019-02-26 | Outpatient (CLI) | payer BC ==
--- NOTE | 2019-02-26 21:01 | MR ---
EXAMINATION TYPE: MR iac wo/w con DATE OF EXAM: 02/26/2019 COMPARISON: None HISTORY: Tinnitus / lt side Hearing loss TECHNIQUE: Multiplanar, multisequence images of the brain and brainstem with small niapb-ge-qrrw and high resolu tion images through the internal auditory canals is performed without and with IV contrast, utilizing 7.5 mL intravenous Gadavist . FINDINGS: There is some motion on the exam. Diffusion weighted images demonstrate no evidence of a re cent infarct or other diffusion abnormality. There is no extra-axial fluid collection, some scattere d hyperintensities are present within the deep white matter, periventricular white matter on inversio n recovery and T2-weighted sequences, approximately 10-15 lesions are present. The ventricular syste m and cisternal spaces are normal in size and appearance. The brain volume is age appropriate. Midline structures demonstrate normal morphology, cerebellopontine angles are normal, no signal abnor mality along the internal auditory canals. The craniocervical junction appears within normal limits. Post contrast images demonstrate no abnormal enhancement. The dural venous sinuses appear patent. T he visualized sinuses are remarkable for possible polyp along the medial right maxillary sinus wall, mucoperiosteal thickening present within the maxillary sinuses, ethmoid air cells and the globes are intact. IMPRESSION: Nonspecific white matter demyelination could be related to migraine headaches, hypertensi on, vasculitis, Lyme disease, multiple sclerosis not excluded. Sinus disease. No evident internal aud itory canal mass.
== END | disposition home or self-care (01) ==
LOC: RADMRIMAIN 18:08
PROVIDERS: ATTEND Otolaryngology
DX: G37.9 Demyelinating disease of central nervous system, unspecified (principal); H91.92 Unspecified hearing loss, left ear; H93.12 Tinnitus, left ear
CPT/HCPCS: 70553; A9585

== ENCOUNTER → 2019-03-27 | Outpatient (CLI) | payer BC ==
[2019-03-27 09:43] LABS: HCT 46.5 % (34.0-46.0); MCH 32.3 pg (25.0-35.0); MCHC 32.2 g/dL (31.0-37.0); MCV 100.2 fL (80.0-100.0); Mean Platelet Volume 6.9; Platelet Count 441 k/uL (150-450); RBC 4.64 m/uL (3.80-5.40); RDW 13.1 % (11.5-15.5)
[2019-03-27 15:54] LABS: Ferritin 61.7 ng/mL (10.0-291.0)
[2019-03-27 16:33] LABS: % Iron Saturation 17.95 (12.00-45.00); African American GFR (CKD) 121.3 (60.0-200.0); Albumin 4.1 g/dL (3.80-4.90); Albumin/Globulin Ratio 1.86 (1.60-3.17); Anion Gap 5.6 mmol/L (4.00-12.00); Carbon Dioxide 27.4 mmol/L (21.6-31.8); Chol/HDL Ratio 4.35; Globulin 2.2 g/dL (1.6-3.3); LDL Cholesterol,Calculated 150.4 mg/dL (0.0-131.0); Non-African American GFR(CKD) 104.6 (60.0-200.0); Potassium 3.9 mmol/L (3.5-5.5); Total Bilirubin 0.5 mg/dL (0.2-1.2); Total Protein 6.3 g/dL (6.2-8.2); VLDL Calculation 23.6 mg/dL (5.00-40.00)
[2019-03-27 19:31] LABS: Hemoglobin A1C 4.7 % (4.0-6.0)
[2019-03-28 12:26] LABS: Zinc, Serum 65 ug/dL (60-130)
== END ==
LOC: LABWHC1 08:53
PROVIDERS: ATTEND Surgery
DX: K91.2 Postsurgical malabsorption, not elsewhere classified (principal); Z90.3 Acquired absence of stomach [part of]; Z98.0 Intestinal bypass and anastomosis status
CPT/HCPCS: 36415; 80053; 80061; 82306; 82525; 82607; 82728; 83036; 83540; 83550; 83970; 84443; 84630; 85027

== ENCOUNTER → 2019-12-05 | Outpatient (CLI) | payer BC, OTHER ==
[2019-12-05 15:10] VITALS: BP 128/82; PULSE 63; RESP 18; TEMP 98.7; BMI 20.6
--- NOTE | 2019-12-05 15:31 | P.HPBAR ---
Bariatric H&P - History & Physicial H&P Date: 12/05/19 History & Physicial: Visit/CC: follow up Patient initial contact: Initial weight: 109.769 kg Initial weight in pounds: 242.00 Height: 5 ft 1 in Initial BMI: 45.7 Last weight: Current weight: 49.578 kg Current weight in pounds: 109.30 Current BMI: 20.6 [place] body weight (based on NIH guidelines): 47.627 kg Excess body weight loss: 96.8% The patient is a 44 year-old F who presents for Bariatric Assessment. HPI: She had a sleeve with leak, then had a conversion to gastric bypass at [facility] after 2019 in early. Her sister is Franc. She had attempted bear claw. She presents at her lowest weight. Highest was 249 pounds. She has not had any follow-up since last year in August 2018. She has a PICC line for months. She was at home 6 months with nurse visits. March 2019 was her last follow-up up to May 2019. She had GIULIA drain and spleen removed. She vomits up to 3 times weekly. She is chewing very well. No hernia on exam. Has swelling along left upper quadrant. She needs bariatric labs Follow up with nutrition. Dr. Carlisle is her doctor. PLAN; 1. Recommend labs 2. Food diary journal 3. Follow up in 2 to 3 weeks Past Medical History Past Medical History: Asthma, COPD, GERD/Reflux, Hypertension, Sleep Apnea/CPAP/BIPAP, Thyroid Disorder Additional Past Medical History / Comment(s): COPD, smoking-related interstitial lung disease, obstructive sleep apnea, morbid obesity, history of seizure disorder the age of 16 related to diet pills, endometriosis, chronic back pain, plantar fasciitis, Tran history of Achilles tendinitis, probably antibiotic induced. She also has history of hypothyroidism, ALLERGIC rhinitis History of Any Multi-Drug Resistant Organisms: None Reported Past Surgical History: Bariatric Surgery, Tubal Ligation Additional Past Surgical History / Comment(s): LEEP PROCEDURE X 2, EGD, BACK INJECTIONS FOR PAIN. The patient has also undergone thoracic/thoracoscopic wedge biopsy of the right lung. 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; R and Y bypass at [facility] 2018 Past Anesthesia/Blood Transfusion Reactions: Motion Sickness Past Psychological History: Anxiety Additional Psychological History / Comment(s): and lives with family home with her . Does not work outside of the home at this time. Adult children. No experience. Some international travel. No animal exposures. They have been working on getting up at mother's home and does have exposure to that environment. Smoking Status: Former smoker Past Alcohol Use History: Occasional Additional Past Alcohol Use History / Comment(s): STARTED SMOKING AT AGE 14 - STOPPED SMOKING on November 23, 2017. (Heaviest smoking amount was 3/4 pack/day) Past Drug Use History: None Reported - Past Family History Sister(s) Family Medical History: Cancer Father Family Medical History: Congestive Heart Failure (CHF), COPD Additional Family Medical History / Comment(s): from heart attack Mother Family Medical History: Cancer Additional Family Medical History / Comment(s): breast cancer Surgical - Exam Vital Signs Temp Pulse Resp BP Pulse Ox 98.7 F 63 18 128/82 98 12/05/19 14:56 12/05/19 14:56 12/05/19 14:56 12/05/19 14:56 12/05/19 14:56 Bariatric Checklist Checklist: Plan: Checklist: EGD: 1. Hiatal hernia: 2. H. Pylori: HgbA1c: Vitamin D: Smoking: Former smoker Primary care physician referral: dr. alvarez Psychiatry clearance: Cardiology clearance: Sleep study: Diet journal: VTE risk score: VTE risk level: Rehab needs at discharge:
== END | disposition home or self-care (01) ==
LOC: BARWHC3 14:06
PROVIDERS: ATTEND Surgery Plastic and Reconstructive Surgery
DX: K91.89 Other postprocedural complications and disorders of digestive system (principal); R11.10 Vomiting, unspecified; Z98.84 Bariatric surgery status; Z87.891 Personal history of nicotine dependence
CPT/HCPCS: 99211

== ENCOUNTER → 2019-12-06 | Outpatient (CLI) | payer BC, OTHER ==
[2019-12-06 10:52] LABS: HGB 15.1 gm/dL (11.4-16.0); MCH 33.3 pg (25.0-35.0); MCHC 31.5 g/dL (31.0-37.0); MCV 105.7 fL (80.0-100.0); Macrocytosis Moderate; Mean Platelet Volume 8.3; Platelet Count 400 k/uL (150-450); RBC 4.54 m/uL (3.80-5.40); RDW 13.6 % (11.5-15.5); WBC 14.1 k/uL (3.8-10.6)
[2019-12-06 16:43] LABS: Ferritin 147.4 ng/mL (10.0-291.0)
[2019-12-06 17:55] LABS: % Iron Saturation 38.52 (12.00-45.00); African American GFR (CKD) 126.7 (60.0-200.0); Albumin 3.6 g/dL (3.80-4.90); Albumin/Globulin Ratio 1.38 (1.60-3.17); Anion Gap 6.2 mmol/L (4.00-12.00); BUN/Creat Ratio 18.33 Ratio (12.00-20.00); Calcium 9.2 mg/dL (8.7-10.3); Carbon Dioxide 29.8 mmol/L (21.6-31.8); Chol/HDL Ratio 3.85; Folate, Serum 20.7 ng/mL; Globulin 2.6 g/dL (1.6-3.3); Magnesium 1.7 mg/dL (1.5-2.4); Non-African American GFR(CKD) 109.3 (60.0-200.0); Phosphorus 3.4 mg/dL (2.4-5.1); Potassium 4.6 mmol/L (3.5-5.5); Total Bilirubin 0.8 mg/dL (0.3-1.2); Total Protein 6.2 g/dL (6.2-8.2)
[2019-12-06 19:12] LABS: INR 0.98 (0.90-1.11); Prothrombin Time 10.5 sec (9.9-11.9)
[2019-12-06 19:47] LABS: Hemoglobin A1C 4.4 % (4.0-6.0)
[2019-12-07 13:57] LABS: Zinc, Serum 47 ug/dL (60-130)
== END | disposition home or self-care (01) ==
LOC: LABWHC1 09:17
PROVIDERS: ATTEND Surgery Plastic and Reconstructive Surgery
DX: E66.01 Morbid (severe) obesity due to excess calories (principal); E21.1 Secondary hyperparathyroidism, not elsewhere classified; K90.9 Intestinal malabsorption, unspecified; N19 Unspecified kidney failure; E89.1 Postprocedural hypoinsulinemia; D50.9 Iron deficiency anemia, unspecified; E55.9 Vitamin D deficiency, unspecified; K74.1 Hepatic sclerosis; K90.89 Other intestinal malabsorption
CPT/HCPCS: 36415; 80053; 80061; 82306; 82525; 82607; 82728; 82746; 83036; 83540; 83550; 83735; 83970; 84100; 84134; 84255; 84425; 84443; 84590; 84630; 85027; 85610; 85730

== ENCOUNTER → 2020-02-22 | Outpatient (CLI) | payer BC, OTHER ==
[2020-02-22 16:22] LABS: HCT 45.7 % (34.0-46.0); HGB 14.3 gm/dL (11.4-16.0); MCH 33.4 pg (25.0-35.0); MCHC 31.2 g/dL (31.0-37.0); MCV 107.1 fL (80.0-100.0); Macrocytosis Moderate; Platelet Count 369 k/uL (150-450); RBC 4.27 m/uL (3.80-5.40); RDW 12.5 % (11.5-15.5); WBC 15.1 k/uL (3.8-10.6)
[2020-02-22 23:58] LABS: Hemoglobin A1C 4.8 % (4.0-6.0)
[2020-02-23 00:27] LABS: Ferritin 152.4 ng/mL (10.0-291.0)
[2020-02-23 00:39] LABS: INR 1.07 (0.90-1.11); Partial Thromboplastin Time 30.5 sec (23.5-31.0); Prothrombin Time 11.5 sec (9.9-11.9)
[2020-02-23 01:02] LABS: % Iron Saturation 50.95 (12.00-45.00); ALT 32 U/L (8-44); AST 61 U/L (13-35); African American GFR (CKD) 102.5 (60.0-200.0); Albumin/Globulin Ratio 1.48 (1.60-3.17); Alkaline Phosphatase 151 U/L (41-126); Calcium 9.2 mg/dL (8.7-10.3); Carbon Dioxide 27.3 mmol/L (21.6-31.8); Chloride 109 mmol/L (96-109); Chol/HDL Ratio 3.12; Cholesterol 153 mg/dL (0-200); Folate, Serum >24.0 ng/mL; Globulin 2.7 g/dL (1.6-3.3); Glucose 73 mg/dL (70-110); Iron 134 ug/dL (50-170); LDL Cholesterol,Calculated 86.6 mg/dL (0.0-131.0); Non-African American GFR(CKD) 88.4 (60.0-200.0); Phosphorus 4.2 mg/dL (2.4-5.1); Potassium 4.6 mmol/L (3.5-5.5); Sodium 141 mmol/L (135-145); Total Bilirubin 0.5 mg/dL (0.3-1.2); Total Iron Binding Capacity 263 ug/dL (228-460); Total Protein 6.7 g/dL (6.2-8.2)
== END | disposition home or self-care (01) ==
LOC: LABWHC1 15:19
PROVIDERS: ATTEND Surgery Plastic and Reconstructive Surgery
DX: E89.1 Postprocedural hypoinsulinemia (principal); D50.8 Other iron deficiency anemias; K90.89 Other intestinal malabsorption; E55.9 Vitamin D deficiency, unspecified; K74.1 Hepatic sclerosis; N19 Unspecified kidney failure; K50.90 Crohn's disease, unspecified, without complications; E66.01 Morbid (severe) obesity due to excess calories
CPT/HCPCS: 36415; 80053; 80061; 82306; 82525; 82607; 82728; 82746; 83036; 83540; 83550; 83735; 83970; 84100; 84134; 84255; 84425; 84443; 84590; 84630; 85027; 85610; 85730

== ENCOUNTER → 2020-02-27 | Outpatient (CLI) | payer BC, OTHER ==
[2020-02-27 14:56] VITALS: BP 110/62; PULSE 57; RESP 16; TEMP 98.5; BMI 20.2
--- NOTE | 2020-02-27 15:06 | P.PN ---
Subjective Progress Note Date: 02/27/20 DATE OF SERVICE: 02/27/2020 CHIEF COMPLAINT: Status post gastric bypass HISTORY OF PRESENT ILLNESS: Laura Rangel is a 44-year-old female status post sleeve gastrectomy, 03/06/2018 converted to gastric bypass at [facility] in 2019. She is 1 year out. She has persistent leukocytosis. Her work-up with spi nal tap was normal. She has maintained her weight. She reports new dysphagia. She had episodes with chicken alredo, spaghetti, and pot roast that got stuck. She ate banana bread and reports having abdominal pain. At height of 5 feet 1 inches, her ideal body weight is 131 pounds. Her highest weight was 249 pounds, BMI 47.1. She comes in 107 pounds, unchanged in 2 months. Her body mass index is 20.2. Lifetime weight loss is 142 pounds. Percent excess weight loss, lifetime is 121%. PAST MEDICAL HISTORY: 1. Morbid obesity due to excess calories 2. Body mass index of 47.1, initial 3. Hypothyroidism 4. Chronic obstructive pulmonary disease 5. Generalized anxiety disorder 6. Gastroesophageal reflux disease 7. Migraines 8. Neuropathy 9. Chronic back pain 10. Hypertensive heart disease 11. Obstructive sleep apnea 12. Seizure disorder 13. Endometriosis 14. Plantar fasciitis 15. Motion sickness PAST SURGICAL HISTORY: 1. Sleeve gastrectomy with leak 2. Tubal ligation 3. LEEP procedure 4. Thoracoscopy with wedge resection HOME MEDICATIONS: Home Medications Medication Instructions Recorded Confirmed Levothyroxine Sodium [Synthroid] 50 mcg PO QAM 01/05/14 12/19/19 Hydrocodone/Acetaminophen [[place] 1 tab PO TID PRN 10/17/16 12/19/19 10-325] Umeclidinium Brm/Vilanterol Tr 2 puff INHALATION RT-DAILY 10/17/16 12/19/19 [Anoro Ellipta 62.5-25 Mcg INH] ALPRAZolam [Xanax] 0.5 mg PO TID PRN 11/24/17 12/19/19 Sertraline [Zoloft] 100 mg PO DAILY 02/23/18 12/19/19 Albuterol Nebulized [Ventolin 2.5 mg INHALATION RT-Q4H PRN 05/28/18 12/19/19 Nebulized] Multivitamins, Thera [Multivitamin 1 tab PO DAILY 05/28/18 12/19/19 (formulary)] Pantoprazole Sodium [Protonix] 40 mg PO DAILY 05/28/18 12/19/19 Butalb/Acetaminophen/Caffeine 1 - 2 cap PO Q4HR 12/05/19 12/19/19 [Fioricet 50-300-40 mg Capsule] Fremanezumab-Vfrm [Ajovy 225 mg SQ QMONTHLY 12/05/19 12/19/19 Autoinjector] Gabapentin [Neurontin] 300 mg PO BID 12/05/19 12/19/19 methocarbamoL [Robaxin] 750 mg PO BID 12/05/19 12/19/19 Vitamin A 10,000 unit PO DAILY 12/19/19 12/19/19 Zinc Sulfate 60 mg PO DAILY 12/19/19 12/19/19 ALLERGIES: Allergies Allergy/AdvReac Type Severity Reaction Status Date / Time bee venom protein (honey bee) Allergy Unknown Verified 12/19/19 14:38 nitrofurantoin Allergy Rash/Hives Verified 12/19/19 14:38 [From Macrobid] nitrofurantoin Allergy Rash/Hives Verified 12/19/19 14:38 macrocrystalline [From Macrobid] moxifloxacin [From Avelox] AdvReac Nausea & Verified 12/19/19 14:38 Vomiting seasonal allergies AdvReac Unknown Uncoded 12/19/19 14:38 SOCIAL HISTORY: Past tobacco use. FAMILY HISTORY: No family history of ulcerative colitis disease or Crohn's disease. Family history of morbid obesity. No lupus in the family. No reports of stomach or esophageal cancer. REVIEW OF ORGAN SYSTEMS: CONSTITUTIONAL: At height of 5 feet 1 inches, her ideal body weight is 131 pounds. Her highest weight was 249 pounds, BMI 47.1. HEENT: Denies any active troubles with vision or hearing. Has troubles with swallowing. ENDOCRINE: No current diabetes. Has hypothyroidism. CARDIOVASCULAR: Past reports of palpitations or heart attacks or chest pain. RESPIRATORY: Has daytime somnolence. Has asthma. GASTROINTESTINAL: Denies any bright red blood per rectum. No diarrhea. No constipation. MUSCULOSKELETAL: Has lower back pain and joint pain. Has osteoarthritis of the knees. NEURO: Past headaches. Past seizure disorders. PSYCH: Has depression. No suicidal ideation. RHEUMATOLOGIC: No lupus. No rheumatoid arthritis. HEMATOLOGIC: Denies any abnormal bleeding or bruising. No personal history of DVTs. History of intra-abdominal infection. SKIN: No rash. No skin cancer. PHYSICAL EXAM: VITAL SIGNS: Height 5 foot 1 inches, weight 107 pounds. BMI 20.2 Vital Signs Temp 98.5 F 02/27/20 14:53 Pulse 57 L 02/27/20 14:53 Resp 16 02/27/20 14:53 BP 110/62 02/27/20 14:53 Pulse Ox GENERAL: Well-developed in no acute distress. HEENT: No scleral icterus. Extraocular movements grossly intact. Hears conversational speech. No nasal drainage. NECK: Supple without lymphadenopathy. CHEST: Nonlabored respirations with equal bilateral excursions. CARDIOVASCULAR: Regular rate and regular rhythm. Distal 2+ pulses. ABDOMEN: Obese, soft, nontender, nondistended. MUSCULOSKELETAL: No clubbing, cyanosis. NEURO: No focal or lateralizing signs. Cranial nerves 2 through 12 grossly within normal limits. PSYCH: Appropriate affect. Alert and oriented to person, place and time. SKIN: Good skin turgor. Well perfused. LABS: Reviewed. WBC elevated. AST elevated. Pre-albumin is low. ASSESSMENT: 1. Morbid obesity due to excess calories 2. Body mass index of 47.1, initial to 20.2 3. Hypothyroidism 4. Chronic obstructive pulmonary disease 5. Generalized anxiety disorder 6. Gastroesophageal reflux disease 7. Migraines 8. Neuropathy 9. Chronic back pain 10. Hypertensive heart disease 11. Obstructive sleep apnea 12. Seizure disorder 13. Endometriosis 14. Plantar fasciitis 15. Motion sickness 16. Status post sleeve gastrectomy with leak 17. History of intra-abdominal infection 18. Zinc deficiency 19. Vitamin A deficiency 20. Inadequate protein intake PLAN: 1. She is doing fair. 2. Recommend upper endoscopy for dysphagia. Objective - Vital Signs Vital signs: Vital Signs Temp 98.5 F 02/27/20 14:53 Pulse 57 L 02/27/20 14:53 Resp 16 02/27/20 14:53 BP 110/62 02/27/20 14:53 Pulse Ox Intake & Output 02/26/20 02/27/20 02/27/20 18:59 06:59 18:59 Weight 48.534 kg
== END | disposition home or self-care (01) ==
LOC: BARWHC3 14:00
PROVIDERS: ATTEND Surgery Plastic and Reconstructive Surgery
DX: E66.01 Morbid (severe) obesity due to excess calories (principal); E03.9 Hypothyroidism, unspecified; J44.9 Chronic obstructive pulmonary disease, unspecified; F41.9 Anxiety disorder, unspecified; K21.9 Gastro-esophageal reflux disease without esophagitis; G43.909 Migraine, unspecified, not intractable, without status migrainosus; G62.9 Polyneuropathy, unspecified; M54.9 Dorsalgia, unspecified; G89.29 Other chronic pain; I11.9 Hypertensive heart disease without heart failure; G47.33 Obstructive sleep apnea (adult) (pediatric); G40.909 Epilepsy, unspecified, not intractable, without status epilepticus; N80.9 Endometriosis, unspecified; M72.2 Plantar fascial fibromatosis; E50.9 Vitamin A deficiency, unspecified; E63.9 Nutritional deficiency, unspecified; E60 Dietary zinc deficiency; K91.81 Other intraoperative complications of digestive system; T75.3XXA Motion sickness, initial encounter; Z88.1 Allergy status to other antibiotic agents; Z87.19 Personal history of other diseases of the digestive system; Z68.20 Body mass index [BMI] 20.0-20.9, adult; Z98.84 Bariatric surgery status; Z79.890 Hormone replacement therapy; Z79.899 Other long term (current) drug therapy; Z79.891 Long term (current) use of opiate analgesic
CPT/HCPCS: 99211

== ENCOUNTER → 2020-05-16 | Outpatient (CLI) | payer BC, OTHER ==
[2020-05-16 21:46] LABS: African American GFR (CKD) 119.6 (60.0-200.0); Albumin 4.2 g/dL (3.80-4.90); Albumin/Globulin Ratio 1.91 (1.60-3.17); Anion Gap 4.2 mmol/L (4.00-12.00); Calcium 9.4 mg/dL (8.7-10.3); Carbon Dioxide 28.8 mmol/L (21.6-31.8); Globulin 2.2 g/dL (1.6-3.3); Non-African American GFR(CKD) 103.2 (60.0-200.0); Potassium 4.3 mmol/L (3.5-5.5); Total Bilirubin 0.5 mg/dL (0.2-1.2); Total Protein 6.4 g/dL (6.2-8.2)
[2020-05-16 21:55] LABS: T4, Free (Free Thyroxine) 1.1 ng/dL (0.80-1.80)
== END | disposition home or self-care (01) ==
LOC: LABWHC1 10:30
PROVIDERS: ATTEND Internal Medicine Clinical Cardiac Electrophysiology
DX: I10 Essential (primary) hypertension (principal); E78.5 Hyperlipidemia, unspecified; R00.2 Palpitations
CPT/HCPCS: 36415; 80053; 80061; 84439; 84443

== ENCOUNTER → 2020-10-23 | Outpatient (CLI) | payer BC, OTHER ==
[2020-10-23 13:26] LABS: Basophils # (A) 0.2 k/uL (0-0.2); Basophils % (A) 1 %; Eosinophils # (A) 0.7 k/uL (0-0.7); Eosinophils % (A) 3 %; HCT 42.1 % (34.0-46.0); Lymphocytes # (A) 4.3 k/uL (1.0-4.8); Lymphocytes % (A) 21 %; MCH 31.9 pg (25.0-35.0); MCHC 33.4 g/dL (31.0-37.0); MCV 95.7 fL (80.0-100.0); Mean Platelet Volume 7.3; Monocytes # (A) 1.3 k/uL (0-1.0); Monocytes % (A) 6 %; Neutrophils # (A) 14.1 k/uL (1.3-7.7); Neutrophils % (A) 68 %; Platelet Count 543 k/uL (150-450); RBC 4.39 m/uL (3.80-5.40); RDW 12.8 % (11.5-15.5); WBC 20.8 k/uL (3.8-10.6)
== END | disposition home or self-care (01) ==
LOC: LABPAT 11:42
PROVIDERS: ATTEND Obstetrics & Gynecology
DX: Z01.812 Encounter for preprocedural laboratory examination (principal)
CPT/HCPCS: 85025

== ENCOUNTER → 2020-10-28 | Outpatient (CLI) | payer MEDICARE, BC ==
--- NOTE | 2020-10-28 09:03 | US ---
EXAMINATION TYPE: US abdomen comp/pelvis limited DATE OF EXAM: 10/28/2020 COMPARISON: CT 06/02/18 CLINICAL HISTORY: K82.9 Disease of gall bladder, unspecified. Gastric bypass surgery, spleen removed EXAM MEASUREMENTS: Liver Length: 19.4 cm Gallbladder Wall: 0.2 cm CBD: 0.9 cm Spleen: Surgically absent cm Right Kidney: 12.4 x 4.4 x 4.4 cm Left Kidney: 12.0 x 5.7 x 4.5 cm Post Void Residual: 12.1 mL Pancreas: tail Obscured by bowel gas Liver: course texture Gallbladder: distended= 12.2 x 3.6 x 3.9 cm seen with sludge in fundus CBD: enlarged Spleen: surgically absent Right Kidney: No hydronephrosis or masses seen Left Kidney: No hydronephrosis or masses seen, stone seen =1.1 x 0.8 cm Upper IVC: wnl Abd Aorta: Obscured by overlying bowel gas, no AAA seen Bladder: wnl Bilateral Jets Seen Yes Normal Post Void Residual (normal less than 50ml) Yes IMPRESSION: 1. Distended gallbladder which contains sludge with enlarged common bile duct measuring up to 0.9 cm. Clinical follow-up is recommended. MRCP could be obtained if clinically warranted. 2. Surgically absent spleen. 3. Left nephrolithiasis.
== END | disposition home or self-care (01) ==
LOC: RADUSWWP 07:19
PROVIDERS: ATTEND Family Medicine
DX: K82.8 Other specified diseases of gallbladder (principal); N20.0 Calculus of kidney; Z90.49 Acquired absence of other specified parts of digestive tract
CPT/HCPCS: 76700; 76857

== ENCOUNTER → 2020-10-28 | Outpatient (CLI) | payer BC, MEDICARE ==
[2020-10-28 07:37] LABS: Appearance,Urine Cloudy (Clear); Bilirubin,Urine Negative (Negative); Blood,Urine Negative (Negative); Color,Urine Yellow; Glucose,Urine (UA) Negative (Negative); Ketones,Urine Negative (Negative); Leukocyte Esterase,Urine Negative (Negative); Nitrite,Urine Negative (Negative); Protein,Urine Negative (Negative); RBC,Urine 1 /hpf (0-5); Specific Gravity,Urine 1.023 (1.001-1.035); Squamous Epithelial Cell,Urine 15 /hpf (0-4); WBC,Urine 1 /hpf (0-5)
[2020-10-28 13:05] LABS: HCT 42.8 % (37.2-46.3); MCH 31.3 pg (27.0-32.0); MCHC 32.7 g/dL (32.0-37.0); MCV 95.7 fL (80.0-97.0); Platelet Count 645 X 10*3/uL (140-440); RBC 4.47 X 10*6/uL (4.10-5.20); RDW 14.2 % (11.5-14.5); WBC 22.61 X 10*3/uL (4.50-10.00)
[2020-10-28 13:48] LABS: Basophils # (A) 0.15 X 10*3/uL (0.00-0.10); Basophils % (A) 0.7 %; Eosinophils # (A) 0.61 X 10*3/uL (0.04-0.35); Eosinophils % (A) 2.7 %; Lymphocytes # (A) 5.37 X 10*3/uL (0.90-5.00); Lymphocytes % (A) 23.8 %; Monocytes # (A) 2.19 X 10*3/uL (0.20-1.00); Monocytes % (A) 9.7 %; Neutrophils # (A) 13.99 X 10*3/uL (1.80-7.70); Neutrophils % (A) 61.8 %
[2020-10-28 14:14] LABS: Erythrocyte Sedimentation Rate 28 mm/Hr (0-20)
[2020-10-28 17:08] LABS: Anti-Smith Ab Interp NEGATIVE (NEGATIVE); Cyclic Citrull Pep IgG Unit 0.7 U/mL; Cyclic Citrullinated Pep IgG NEGATIVE (NEGATIVE); DNA Double-Stranded NEGATIVE (NEGATIVE); JO-1 IgG Antibody <0.2 AI; Scleroderma SC-70 Ab <0.2 AI
[2020-10-28 17:27] LABS: African American GFR (CKD) 119.6 (60.0-200.0); Albumin 3.9 g/dL (3.80-4.90); Albumin/Globulin Ratio 1.34 (1.60-3.17); BUN/Creat Ratio 22.86 Ratio (12.00-20.00); C Reactive Protein 0.5 mg/dL (0.0-0.8); Calcium 8.8 mg/dL (8.7-10.3); Globulin 2.9 g/dL (1.6-3.3); Magnesium 1.8 mg/dL (1.5-2.4); Non-African American GFR(CKD) 103.2 (60.0-200.0); Potassium 4.3 mmol/L (3.5-5.5); Total Bilirubin 0.2 mg/dL (0.3-1.2); Total Protein 6.8 g/dL (6.2-8.2)
[2020-10-29 14:57] LABS: Vitamin D, 1, 25-Dihydroxy 65 pg/mL (20 - 79)
[2020-10-30 06:20] LABS: Vit B1(Thiamine) 84 ug/L (38-122)
[2020-10-31 05:59] LABS: Vitamin E (Alpha Tocopherol) 1574 ug/dL (500-1800)
== END | disposition home or self-care (01) ==
LOC: LABWHC1 06:58
PROVIDERS: ATTEND Psychiatry & Neurology Neurology
DX: M25.50 Pain in unspecified joint (principal)
CPT/HCPCS: 36415; 80053; 81001; 82550; 82607; 82652; 83036; 83516; 83519; 83735; 84207; 84425; 84446; 84590; 84591; 84597; 85025; 85652; 86038; 86140; 86200; 86225; 86235

== ENCOUNTER 2020-10-30 06:45 | Day surgery (SDC) | payer BC, MEDICARE, OTHER ==
[2020-10-29 12:16] VITALS: BMI 26.9
[~2020-10-30 06:45] MED LIST changes: -DEXAMETHASONE SOD PHOSPHATE 10 MG/ML 1 ML VIAL IV ONE; +DEXAMETHASONE SOD PHOSPHATE 4 MG/ML 1 ML VIAL IV ONE; -ENOXAPARIN 40 MG/0.4 ML SYRINGE SQ ONE; -MIDAZOLAM 2 MG/2 ML VIAL IV PRN; +Pre Op ABX Message 1 EACH MISC MISCELLANE ONE; -SCOPOLAMINE 1.5MG/72HR PATCH TRANSDERM ONE; -ceFAZolin IN SWFI 2 GM/20 ML SYRINGE IVP ONE
--- NOTE | 2020-10-30 07:43 | P.HPOB ---
History of Present Illness H&P Date: 10/30/20 Chief Complaint: Menorrhagia 45 year old presents for D&C hysteroscopy, endometrial ablation with Novasure and removal of Nexplanon. Review of Systems All systems: negative Constitutional: Denies chills, Denies fever Eyes: denies blurred vision, denies pain Ears, nose, mouth and throat: Denies headache, Denies sore throat Cardiovascular: Denies chest pain, Denies shortness of breath Respiratory: Denies cough Gastrointestinal: Denies abdominal pain, Denies diarrhea, Denies nausea, Denies vomiting Genitourinary: Denies dysuria, Denies hematuria Musculoskeletal: Denies myalgias Integumentary: Denies pruritus, Denies rash Neurological: Denies numbness, Denies weakness Psychiatric: Denies anxiety, Denies depression Endocrine: Denies fatigue, Denies weight change Past Medical History Past Medical History: Asthma, COPD, GERD/Reflux, Hearing Disorder / Deafness, Hypertension, Osteoarthritis (OA), Sleep Apnea/CPAP/BIPAP, Thyroid Disorder Additional Past Medical History / Comment(s): COPD, smoking-related interstitial lung disease, obstructive sleep apnea,history of seizuze age of 16 related medication had seizure for 2 days , endometriosis, chronic back pain, plantar fasciitis, Achilles tendinitis, probably antibiotic induced. , ALLERGIC rhinitis,acute resiratory distress syndrome History of Any Multi-Drug Resistant Organisms: None Reported Past Surgical History: Bariatric Surgery, Tubal Ligation Additional Past Surgical History / Comment(s): LEEP PROCEDURE X 2, EGD, BACK INJECTIONS FOR PAIN. The patient has also undergone thoracic/thoracoscopic wedge biopsy of the right lung. 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; R & Y bypass at [facility] 2018 Past Anesthesia/Blood Transfusion Reactions: Motion Sickness Smoking Status: Former smoker - Past Family History Sister(s) Family Medical History: Cancer Father Family Medical History: Congestive Heart Failure (CHF), COPD Additional Family Medical History / Comment(s): from heart attack Mother Family Medical History: Cancer Additional Family Medical History / Comment(s): breast cancer Medications and Allergies Home Medications Medication Instructions Recorded Confirmed Type Levothyroxine Sodium [Synthroid] 50 mcg PO QAM 01/05/14 10/29/20 History Hydrocodone/Acetaminophen [[place] 1 tab PO TID PRN 10/17/16 10/29/20 History 10-325] ALPRAZolam [Xanax] 0.5 mg PO TID PRN 11/24/17 10/29/20 History Sertraline [Zoloft] 100 mg PO DAILY 02/23/18 10/29/20 History Albuterol Nebulized [Ventolin 2.5 mg INHALATION RT-Q4H PRN 05/28/18 10/29/20 History Nebulized] Multivitamins, Thera [Multivitamin 1 tab PO DAILY 05/28/18 10/29/20 History (formulary)] Pantoprazole Sodium [Protonix] 40 mg PO DAILY 05/28/18 10/29/20 History Gabapentin [Neurontin] 300 mg PO BID 12/05/19 10/29/20 History Vitamin A 10,000 unit PO DAILY 12/19/19 10/29/20 History Zinc Sulfate 60 mg PO DAILY 12/19/19 10/29/20 History Botox Injection SQ Q90D 10/29/20 History Cyclobenzaprine [Flexeril] 10 mg PO HS 10/29/20 10/29/20 History Ipratropium/Albuterol Sulfate 1 puff INHALATION QID 10/29/20 10/29/20 History [Combivent Respimat Inhaler] Metoprolol Succinate (ER) [Toprol 12.5 mg PO DAILY 10/29/20 10/29/20 History Xl] Rimegepant Sulfate [Nurtec Odt] 75 mg PO DAILY PRN MDD 9 TIMES A 10/29/20 10/29/20 History MONTH SUMAtriptan SUCCINATE [Imitrex] 50 mg PO DAILY PRN MDD UP TO 9 10/29/20 10/29/20 History TIMES A MONTH Allergies Allergy/AdvReac Type Severity Reaction Status Date / Time bee venom protein (honey bee) Allergy SWELLING , Verified 10/30/20 07:34 AND ITCHING nitrofurantoin Allergy Rash/Hives Verified 10/30/20 07:34 [From Macrobid] nitrofurantoin Allergy Rash/Hives Verified 10/30/20 07:34 macrocrystalline [From Macrobid] moxifloxacin [From Avelox] AdvReac Nausea & Verified 10/30/20 07:34 Vomiting seasonal allergies AdvReac Unknown Uncoded 10/30/20 07:34 Exam Osteopathic Statement: *. No significant issues noted on an osteopathic structural exam other than those noted in the History and Physical/Consult. Vital Signs Temp Pulse Resp BP Pulse Ox 10/30/20 07:32 98.5 F 84 16 140/79 96 Intake and Output 10/29/20 10/30/20 10/30/20 22:59 06:59 14:59 Other: Weight 63.2 kg Heart: Regular rate and rhythm Lungs: Clear to auscultation bilaterally Abdomen: Soft, nontender Extremities: Negative Homans sign Assessment and Plan (1) Dysfunctional uterine bleeding Current Visit: Yes Status: Acute Code(s): N93.8 - OTHER SPECIFIED ABNORMAL UTERINE AND VAGINAL BLEEDING SNOMED Code(s): 61488062099089 (2) Menometrorrhagia Current Visit: Yes Status: Acute Code(s): N92.1 - EXCESSIVE AND FREQUENT MENSTRUATION WITH IRREGULAR CYCLE SNOMED Code(s): 030718147 Plan: 1. D&C hysteroscopy, endometrial ablation with NovaSure and removal of nexplanon.
[2020-10-30] MEDS: LACTATED RINGERS 1,000 ML IV SCH ×2 (07:50→07:59)
[2020-10-30] MEDS ORDERED: fentaNYL (PF) 50 MCG/ML 2 ML AMP ONE (07:55)
[2020-10-30] MEDS ORDERED: LIDOCAINE 1% INJ 10MG/ML (20 ML MDV) ONE (07:55)
[2020-10-30] MEDS ORDERED: PROPOFOL 10 MG/ML 20 ML VIAL IV ONE (07:55)
[2020-10-30] MEDS ORDERED: MIDAZOLAM 2 MG/2 ML VIAL ONE (07:55)
[2020-10-30] MEDS ORDERED: LIDOCAINE 1%-EPI 1:100,000 20 ML VIAL SQ ONE ×2 (08:26)
[2020-10-30] MEDS: fentaNYL (PF) 50 MCG/ML 2 ML AMP IV PRN ×2 (08:43→09:10)
[2020-10-30 08:44] VITALS: TEMP 97
--- NOTE | 2020-10-30 08:47 | P.OP ---
Date of Procedure: 10/30/20 Preoperative Diagnosis: 1. DUB Postoperative Diagnosis: 1. DUB Procedure(s) Performed: DANIEL Oconnell, hysteroscopy, endometrial ablation with NovaSure and removal of Nexplanon Anesthesia: MAC Surgeon: Rae Buck Estimated Blood Loss (ml): 3 IV fluids (ml): 400 Urine output (ml): 50 Pathology: other (Endometrial curettings) Condition: stable Disposition: PACU Operative Findings: Uterus sounded to 7 cm. Endometrial length 5 cm, width 3 cm, power 83 W., time of ablation 27 seconds, adequate ablation after NovaSure. Description of Procedure: Patient is taken the operating room where general anesthesia was obtained without difficulty. She was prepped and draped in normal sterile fashion dorsal lithotomy position, legs placed in the [employer] cane stirrups. Bladder was drained of all urine. Weighted speculum placed in the vagina and the anterior lip the cervix was grasped with serial tooth tenaculum. The uterus sounded to 7 cm and the cervix under 2 cm making the cavity length 5 cm. The cervix was dilated to #8 Hegar dilator. Hysteroscopy was then performed. Both ostia were visualized and there was a smooth contour of the uterus. Sharp curet was then gently used to obtain endometrial curettings. The NovaSure was introduced into the uterus with a cavity length of 5 cm, width 3 cm. after cavity assessment was passed, the time of ablation was 27 seconds at 83 W. Hysteroscopy was again performed and adequate ablation was noted. All instruments removed from the vagina. Gloves were changed and attention was turned to the left arm. The nexplanon was palpated and a small incision was made near the distal portion of the Nexplanon. The device was pushed through the incision grasped with a hemostat and removed easily. Band-Aid placed. Patient tolerated the procedure well, sponge and instrument counts were correct 2 and she was taken to recovery in stable condition.
[2020-10-30 08:54] VITALS: RESP 16
[2020-10-30] MEDS ORDERED: KETOROLAC 15 MG/ML 1 ML VIAL IVP ONE (09:45)
[2020-10-30] MEDS ORDERED: KETOROLAC 15 MG/ML 1 ML VIAL ONE (09:50)
[2020-10-30 09:55] VITALS: BP 116/73; PULSE 89
== END 2020-10-30 10:25 | disposition home or self-care (01) ==
LOC: OR 06:45
PROVIDERS: ATTEND Obstetrics & Gynecology
DX: N84.0 Polyp of corpus uteri (principal); N93.8 Other specified abnormal uterine and vaginal bleeding; G47.33 Obstructive sleep apnea (adult) (pediatric); I10 Essential (primary) hypertension; J44.9 Chronic obstructive pulmonary disease, unspecified; K21.9 Gastro-esophageal reflux disease without esophagitis; E07.9 Disorder of thyroid, unspecified; M19.90 Unspecified osteoarthritis, unspecified site; Z79.899 Other long term (current) drug therapy; Z80.3 Family history of malignant neoplasm of breast; Z82.49 Family history of ischemic heart disease and other diseases of the circulatory system; Z87.891 Personal history of nicotine dependence; Z88.1 Allergy status to other antibiotic agents
CPT/HCPCS: 58563; 11982; 81025; 88305; J2250; J1100; J2405; J2001; J3010; J1885; J2704

== ENCOUNTER → 2020-12-30 | Outpatient (CLI) | payer BC, MEDICARE ==
[2020-12-30 11:17] LABS: Basophils # (A) 0.1 k/uL (0-0.2); Basophils % (A) 0 %; Eosinophils # (A) 0.2 k/uL (0-0.7); Eosinophils % (A) 1 %; HCT 44.1 % (34.0-46.0); HGB 14.3 gm/dL (11.4-16.0); Lymphocytes # (A) 3.1 k/uL (1.0-4.8); Lymphocytes % (A) 11 %; MCH 31.7 pg (25.0-35.0); MCHC 32.3 g/dL (31.0-37.0); Mean Platelet Volume 7.6; Monocytes # (A) 1.5 k/uL (0-1.0); Monocytes % (A) 5 %; Neutrophils # (A) 22.6 k/uL (1.3-7.7); Neutrophils % (A) 81 %; Platelet Count 471 k/uL (150-450); RDW 13.5 % (11.5-15.5); WBC 27.9 k/uL (3.8-10.6)
== END | disposition home or self-care (01) ==
LOC: LABWHC1 10-23 11:44 → LABPAT 10:09
PROVIDERS: ATTEND Anesthesiology
DX: Z01.812 Encounter for preprocedural laboratory examination (principal); K91.86 Retained cholelithiasis following cholecystectomy
CPT/HCPCS: 36415; 85025

== ENCOUNTER 2021-01-01 11:23 | Day surgery (SDC) | payer BC, MEDICARE ==
[2020-12-31 11:00] VITALS: BMI 29.0
[~2021-01-01 11:23] MED LIST changes: +ALBUTEROL NEB (CONC) 2.5 MG/0.5 ML INHALATION ONE; -DEXAMETHASONE SOD PHOSPHATE 4 MG/ML 1 ML VIAL IV ONE; +LACTATED RINGERS 1,000 ML IV SCH; +LIDOCAINE 2% (PF) 20 MG/ML 5 ML VIAL INHALATION ONE; +LIDOCAINE VISCOUS 300 MG/15 ML CUP MUCOUS MEM ONE; -ONDANSETRON 4 MG/2 ML VIAL IVP ONE; -Pre Op ABX Message 1 EACH MISC MISCELLANE ONE
[2021-01-01 12:01] VITALS: TEMP 98.1
[2021-01-01] MEDS ORDERED: HYDROCORTISONE SUCCINATE 100 MG/2 ML VIAL IV ONE (12:13)
[2021-01-01] MEDS ORDERED: LIDOCAINE 1% INJ 10MG/ML (20 ML MDV) ONE (13:00)
[2021-01-01] MEDS ORDERED: PROPOFOL 10 MG/ML 20 ML VIAL IV ONE (13:00)
[2021-01-01] MEDS ORDERED: LIDOCAINE 2% INJ 20 MG/ML INTRATRACH ONE (13:13)
--- NOTE | 2021-01-01 13:20 | P.PCN ---
Date of Procedure: 01/01/21 Preoperative Diagnosis: Dyspnea, pulmonary infiltrates, leukocytosis, possible pneumonia Postoperative Diagnosis: 1. Diffuse mucosal inflammatory changes involving the left upper lobe especially lingula and the various segments. 2. Mucous retention involving the left upper lobe 3 COPD 4 Previous history of Smoking-related interstitial lung disease, respiratory bronchiolitis Procedure(s) Performed: 1 flexible bronchoscopy 2 airway inspection 3 bronchial lavage of the lingula Anesthesia: MAC Surgeon: Bharati Truong [employer] Can[employer] Installer #1: Magdalena Woods Pathology: other Condition: stable Disposition: same day Operative Findings: This procedure was done under conscious sedation. Anesthetic agents was given by anesthesia the bedside. The patient was given a full face mask and nasal cannula for oxygen supplementation. Pulse ox is above 90% throughout the procedure. The patient was given propofol a total of 130 mg throughout the procedure After achieving adequate sedation, the flexible bronchoscope was introduced to the right nostril. Examination of the upper airway was done. Examination of the upper airway included the pharynx, larynx, epiglottis, vallecula, arytenoids and the vocal cords. There was some looseness for secretions in the upper airways that were suctioned out. All of the upper airway structures were within normal. The vocal cord abduction and adduction was within normal limits. A total of 1 mL of 1% lidocaine was applied to the vocal cords and following that the bronchoscope was advanced into the upper trachea. Examination of the tracheal bronchial tree was done. There was some scattered mucosa erythematous changes throughout the airways and it was obvious that the majority of the mucosal inflammatory changes were on the left mina the left upper lobe and there were other extensive especially in the lingular bronchus in the lingular segments. Secretions were also more abundant on the left specially in the left upper lobe area. Therapeutic airway suctioning was done. Secretions were suctioned out. Airway inspection on the right included the right mainstem bronchus, right upper lobe bronchus, bronchus the niece in the right lower lobe bronchus and the various 10 segments of the right lung was done. Examination of left side including left main stem bronchus, left upper lobe bronchus, lingular segment and the left lower bronchus and the various 8 segments of the left lung. Abnormalities were more significant an obvious in the left upper lobe in the lingular bronchus. The bronchoscope was wedged this appears segment of the lingula. The bronchioloalveolar lavage was done. A total of 80 mL of fluid was infused and 20 mL of bloody aspirate was obtained. Therapeutic it was suctioning was done. Bronchoscope was removed. As the bronchoscope was being retracted back into the trachea, this thumb of a previous tracheostomy was seen and the area was adequately healed and there was no evidence of any tracheal stenosis. The flexible bronchoscope was removed and the patient was transferred recovery in stable condition. The lavage will be sent for microbial analysis.
[2021-01-01 13:27] VITALS: RESP 18
[2021-01-01 14:01] VITALS: BP 134/84; PULSE 89
== END 2021-01-01 14:02 | disposition home or self-care (01) ==
LOC: ORWHC2ENDO 11:23
PROVIDERS: ATTEND Internal Medicine Critical Care Medicine
DX: J44.9 Chronic obstructive pulmonary disease, unspecified (principal); Z87.891 Personal history of nicotine dependence; Z79.82 Long term (current) use of aspirin; Z79.899 Other long term (current) drug therapy; Z98.84 Bariatric surgery status; G47.33 Obstructive sleep apnea (adult) (pediatric); E03.9 Hypothyroidism, unspecified; E66.8 Other obesity; G43.909 Migraine, unspecified, not intractable, without status migrainosus; J84.9 Interstitial pulmonary disease, unspecified; G89.29 Other chronic pain; M54.9 Dorsalgia, unspecified; D64.9 Anemia, unspecified; Z82.5 Family history of asthma and other chronic lower respiratory diseases; Z82.49 Family history of ischemic heart disease and other diseases of the circulatory system; I10 Essential (primary) hypertension; K21.9 Gastro-esophageal reflux disease without esophagitis; Z88.1 Allergy status to other antibiotic agents; Z88.8 Allergy status to other drugs, medicaments and biological substances
CPT/HCPCS: 81025; 87798 ×3; 87496; 87498; 87529; 88108; 88305; 87252; 87502; 87634; 87070; 87205; 87116; 87102; 87077; 87186; 87206; 31624; J2001 ×2; J1720; J2704

== ENCOUNTER 2021-01-23 15:04 | Inpatient (IN) | payer BC, MEDICARE ==
[2021-01-23] MEDS ORDERED: MAGNESIUM SULFATE-D5W PMX 1 GM in DEXTROSE/WATER 1 100ML.BAG IVPB STA (18:23)
[2021-01-23] MEDS ORDERED: methylPREDNISolone SOD SUCCI 125 MG/2 ML VIAL IV STA (18:23)
[2021-01-23] MEDS ORDERED: ALBUTEROL HFA INHALER INHALATION STA (18:23)
[2021-01-23] MEDS: IPRATROPIUM-ALBUTEROL 3 ML NEB INHALATION STA ×2 (19:01→20:37)
[2021-01-23 19:40] LABS: Basophils # (A) 0.1 k/uL (0-0.2); Basophils % (A) 1 %; Eosinophils # (A) 0.1 k/uL (0-0.7); Eosinophils % (A) 0 %; HCT 40.5 % (34.0-46.0); HGB 13.4 gm/dL (11.4-16.0); Hypochromasia Slight; Lymphocytes # (A) 2.1 k/uL (1.0-4.8); Lymphocytes % (A) 9 %; MCH 30.5 pg (25.0-35.0); Mean Platelet Volume 7.6; Monocytes # (A) 1.4 k/uL (0-1.0); Monocytes % (A) 6 %; Neutrophils # (A) 18.7 k/uL (1.3-7.7); Neutrophils % (A) 82 %; Platelet Count 722 k/uL (150-450); Poikilocytosis Slight; RBC 4.39 m/uL (3.80-5.40); RDW 14.5 % (11.5-15.5); WBC 22.6 k/uL (3.8-10.6)
--- NOTE | 2021-01-23 19:42 | ED ---
General Adult HPI - General Chief complaint: Shortness of Breath Stated complaint: SOB Time Seen by Provider: 01/23/21 17:51 Source: patient, RN notes reviewed, old records reviewed Mode of arrival: ambulatory Limitations: no limitations - History of Present Illness Initial comments: I evaluated the patient when she was placed in a room. Patient is a 45-year-old female with past medical history remarkable for significant COPD, asthma, hypertension, left bundle branch block, thyroid disorder presents emergency Department over concern for difficult in breathing. Patient was seen by her shear tender Dr. Truong yesterday or the day before who instructed her to the emergency department for evaluation, however she waited until today. At that time she was having oxygen saturation saturations in the high 70% percents. She denies any known sick contacts. She is concerned she may have Covid. She was asked with a [facility] vaccine. She endorses a productive cough of purulent mucus. Denies any chest pain. Denies abdominal pain, nausea, vomiting. She has no urinary complaints. Denies any lightheadedness, numbness. She states her home breathing treatments have not been improving her symptoms. She presents emergency department over concern for possible upper respiratory infection and hypoxia seen at her outside shear tender. - Related Data Home Medications Medication Instructions Recorded Confirmed Levothyroxine Sodium [Synthroid] 50 mcg PO DAILY 01/05/14 01/23/21 Hydrocodone/Acetaminophen [[place] 1 tab PO TID PRN 10/17/16 01/23/21 10-325] ALPRAZolam [Xanax] 0.5 mg PO TID PRN 11/24/17 01/23/21 Sertraline [Zoloft] 100 mg PO BID 02/23/18 01/23/21 Albuterol Nebulized [Ventolin 2.5 mg INHALATION RT-Q4H PRN 05/28/18 01/23/21 Nebulized] Multivitamins, Thera [Multivitamin 1 tab PO DIRECTED 05/28/18 01/23/21 (formulary)] Pantoprazole Sodium [Protonix] 40 mg PO DAILY 05/28/18 01/23/21 Gabapentin [Neurontin] 300 mg PO BID 12/05/19 01/23/21 Vitamin A [Vitamin A (8,000 Units 8,000 unit PO DIRECTED 12/19/19 01/23/21 = 2,400 MCG)] Zinc Sulfate 220 mg PO DIRECTED 12/19/19 01/23/21 Botox Injection 1 dose SQ Q90D 10/29/20 01/23/21 Cyclobenzaprine [Flexeril] 10 mg PO HS 10/29/20 01/23/21 Ipratropium/Albuterol Sulfate 1 puff INHALATION RT-QID PRN 10/29/20 01/23/21 [Combivent Respimat Inhaler] Metoprolol Succinate (ER) [Toprol 12.5 mg PO DAILY 10/29/20 01/23/21 Xl] Rimegepant Sulfate [Nurtec Odt] 75 mg PO DAILY PRN MDD 9 TIMES A 10/29/20 01/23/21 MONTH SUMAtriptan SUCCINATE [Imitrex] 50 mg PO DAILY PRN MDD UP TO 9 10/29/20 01/23/21 TIMES A MONTH predniSONE See Taper PO DAILY 12/29/20 01/23/21 Fluticasone/Umeclidin/Vilanter 1 puff INHALATION RT-DAILY 12/31/20 01/23/21 [Trelegy Ellipta 200-62.5-25] methocarbamoL [Robaxin] 750 mg PO BID 01/01/21 01/23/21 Fluconazole [Diflucan] 100 mg PO DAILY 01/23/21 01/23/21 Fluticasone Nasal [place] [Flonase 1 spr EA NOSTRIL BID PRN 01/23/21 01/23/21 Nasal [place]] Levofloxacin [Levaquin] 750 mg PO DAILY 01/23/21 01/23/21 Meclizine [Antivert] 12.5 mg PO BID PRN 01/23/21 01/23/21 Montelukast [Singulair] 10 mg PO HS 01/23/21 01/23/21 Promethazine HCl/Codeine 5 ml PO Q6H PRN 01/23/21 01/23/21 [Promethazine-Codeine Syrup] Promethazine/Dextromethorphan 5 ml PO Q6H PRN 01/23/21 01/23/21 [Promethazine-Dm Syrup] buPROPion HCL [Wellbutrin XL] 150 mg PO DAILY 01/23/21 01/23/21 Allergies Allergy/AdvReac Type Severity Reaction Status Date / Time bee venom protein (honey bee) Allergy SWELLING , Verified 01/23/21 21:38 AND ITCHING nitrofurantoin Allergy Rash/Hives Verified 01/23/21 21:38 [From Macrobid] nitrofurantoin Allergy Rash/Hives Verified 01/23/21 21:38 macrocrystalline [From Macrobid] moxifloxacin [From Avelox] AdvReac Nausea & Verified 01/23/21 21:38 Vomiting seasonal allergies AdvReac Unknown Uncoded 01/23/21 21:38 Review of Systems ROS Statement: Those systems with pertinent positive or pertinent negative responses have been documented in the HPI. Review of Systems: CONST: Denies fever EYES: Denies blurry vision ENT: Denies nasal congestion C/V: Denies Chest pain RESP: Endorses shortness of breath, cough GI: Denies abdominal pain : Denies dysuria SKIN: Denies rash. MSK: Denies joint pain. NEURO: Denies headache ROS Other: All systems not noted in ROS Statement are negative. Past Medical History Past Medical History: Asthma, COPD, GERD/Reflux, Hypertension, Sleep Apnea/CPAP/BIPAP, Thyroid Disorder Additional Past Medical History / Comment(s): COPD, smoking-related interstitial lung disease, obstructive sleep apnea, morbid obesity, history of seizure disorder the age of 16 related to diet pills, endometriosis, chronic back pain, plantar fasciitis, Tran history of Achilles tendinitis, probably antibiotic induced. She also has history of hypothyroidism, ALLERGIC rhinitis. GALLBLADDER DISORDER, RECENT ABN WBC 27.9- 12/30/20 History of Any Multi-Drug Resistant Organisms: None Reported Past Surgical History: Bariatric Surgery, Tubal Ligation Additional Past Surgical History / Comment(s): LEEP PROCEDURE X 2, EGD, BACK INJECTIONS FOR PAIN. The patient has also undergone thoracic/thoracoscopic wed ge biopsy of the right lung. 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; R and Y bypass at [facility] 2019,TRACHEOTOMY-RESOLVED Past Anesthesia/Blood Transfusion Reactions: Motion Sickness Past Psychological History: Anxiety Smoking Status: Former smoker Past Alcohol Use History: None Reported Past Drug Use History: None Reported - Past Family History Sister(s) Family Medical History: Cancer Mother Family Medical History: Cancer Additional Family Medical History / Comment(s): breast cancer Father Family Medical History: COPD, CVA/TIA, Myocardial Infarction ([place]) Additional Family Medical History / Comment(s): HEART PROBLEMS, AT AGE 64 General Exam - General Exam Comments Initial Comments: General: Appears in no acute distress. No increased work of breathing. HEAD: Normal with no signs of head trauma. EYES: PERRLA, EOMI, conjunctiva normal, no discharge. ENT: Hearing grossly intact, normal oropharynx. Somewhat dry mucous membranes. RESPIRATORY: Patient's bilateral rhonchi and wheezes. No increased work of breathing at this time. She is hypoxic on room air down to 90% in triage. C/V: Patient is mildly tachycardic. S1 and S2 auscultated. Peripheral pulses are 2+ and intact throughout. No peripheral edema. ABD: Abd is soft, nontender, nondistended EXT: Normal range of motion, no obvious deformity SKIN: No rashes or lesions observed on exposed skin. NEURO: Alert and oriented 4. Limitations: no limitations Course Vital Signs 01/23/21 01/23/21 01/23/21 16:05 20:39 20:46 Temperature 98.5 F Pulse Rate 113 H 106 H 103 H Respiratory 20 Rate Blood Pressure 130/75 O2 Sat by Pulse 90 L Oximetry Medical Decision Making - Medical Decision Making Based on the patient's presentation and physical exam, I'm concerned for upper respiratory infection the patient. She also appears in significant acute COPD exacerbation. Therefore we will obtain cardiac work up and troponin, EKG, chest x-ray and basic labs. We will also obtain: Flu testing. She'll be symptomatically treated with IV Solu-Medrol, magnesium, will be given DuoNeb breathing treatments was scoped testing is negative. Albuterol inhaler with spacer was ordered in the meantime. She was in agreement this plan. She'll be given a 1 L fluid boluses she appears mildly dehydrated, likely secondary to her illness. Patient's EKG showed chronic left bundle branch block without any acute ischemic changes. Laboratory results were remarkable for leukocytosis of 22.6. She also has a thrombocytosis of 722. Lactic acid is mildly elevated 2.5, likely indicative of mild dehydration. Troponin is indeterminate at 0.02 likely secondary to acute respiratory infection. Patient is RSV positive but Covid and flu negative. Chest x-ray revealed patchy and and her spritzed initial opacities likely a multifocal pneumonia. CMP needed to be resent, and it is still pending at this time. On reevaluation, patient is saturating in the mid 80%'s on room air. She has not yet received any DuoNeb breathing treatments and I called respiratory therapy to provide them to her. I discussed with her that it appears she has pneumonia as well as a COPD exacerbation. Due to her hypoxia would like to admitted to the hospital and start IV antibiotics and she was in agreement this plan. Blood cultures also be drawn at this time. She'll be started on IV Rocephin and azithromycin. She was in agreement with this plan. Wheezing is minimally improved, however patient is yet received the nebulizer treatments. I do not believe that the patient requires more than nasal cannula oxygen at this time as she is not, is no increased work of breathing, and is in no respiratory distress. I spoke with the admitting team under Dr. Wray. Accepted the admission. Patient will be admitted in serious condition to telemetry bed. Consultation was placed to Dr. Truong. - Lab Data Result diagrams: 01/23/21 19:08 Lab Results 01/23/21 01/23/21 01/23/21 Range/Units 19:08 19:08 19:08 WBC 22.6 H (3.8-10.6) k/uL RBC 4.39 (3.80-5.40) m/uL Hgb 13.4 (11.4-16.0) gm/dL Hct 40.5 (34.0-46.0) % MCV 92.3 D (80.0-100.0) fL MCH 30.5 (25.0-35.0) pg MCHC 33.0 (31.0-37.0) g/dL RDW 14.5 (11.5-15.5) % Plt Count 722 H (150-450) k/uL MPV 7.6 Neutrophils % 82 % Lymphocytes % 9 % Monocytes % 6 % Eosinophils % 0 % Basophils % 1 % Neutrophils # 18.7 H (1.3-7.7) k/uL Lymphocytes # 2.1 (1.0-4.8) k/uL Monocytes # 1.4 H (0-1.0) k/uL Eosinophils # 0.1 (0-0.7) k/uL Basophils # 0.1 (0-0.2) k/uL Hypochromasia Slight Poikilocytosis Slight PT 10.2 (9.0-12.0) sec INR 0.9 (<1.2) APTT 24.4 (22.0-30.0) sec Lactic Ac Sepsis Rflx Plasma Lactic Acid Miguel Angel 2.5 H* (0.7-2.0) mmol/L Troponin I (0.000-0.034) ng/mL Influenza Type A (PCR) (Not Detectd) Influenza Type B (PCR) (Not Detectd) RSV (PCR) (Not Detectd) SARS-CoV-2 (PCR) (Not Detectd) 01/23/21 01/23/21 01/23/21 Range/Units 19:08 19:08 19:49 WBC (3.8-10.6) k/uL RBC (3.80-5.40) m/uL Hgb (11.4-16.0) gm/dL Hct (34.0-46.0) % MCV (80.0-100.0) fL MCH (25.0-35.0) pg MCHC (31.0-37.0) g/dL RDW (11.5-15.5) % Plt Count (150-450) k/uL MPV Neutrophils % % Lymphocytes % % Monocytes % % Eosinophils % % Basophils % % Neutrophils # (1.3-7.7) k/uL Lymphocytes # (1.0-4.8) k/uL Monocytes # (0-1.0) k/uL Eosinophils # (0-0.7) k/uL Basophils # (0-0.2) k/uL Hypochromasia Poikilocytosis PT (9.0-12.0) sec INR (<1.2) APTT (22.0-30.0) sec Lactic Ac Sepsis Rflx Y Plasma Lactic Acid Miguel [place] (0.7-2.0) mmol/L Troponin I 0.020 (0.000-0.034) ng/mL Influenza Type A (PCR) Not Detected (Not Detectd) Influenza Type B (PCR) Not Detected (Not Detectd) RSV (PCR) Detected A (Not Detectd) SARS-CoV-2 (PCR) Not Detected (Not Detectd) - EKG Data -: EKG Interpreted by Me EKG Comments: 12-lead Electrocardiogram Interpretation Note EKG was reviewed and interpreted by myself. 12-lead ECG performed at 1842 is interpreted by me as revealing sinus tachycardia at a rate of 101 beats per minute. Left axis deviation. ME interval is 150 ms, QRS duration is 126 seconds, QTC is 484 ms.. There is mild J-point elevation in lead V3 with no reciprocal changes and no other ST segment concerns. Patient has a left bundle- branch block, which patient states is chronic.. R wave progression across precordium was delayed.. By my interpretation this EKG is non-diagnostic for acute ischemia. Patient has a stated history of a left bundle branch block. Disposition Clinical Impression: CAP (community acquired pneumonia), RSV (respiratory syncytial virus infection), Acute respiratory failure with hypoxia, COPD exacerbation Disposition: ADMITTED IP TO THIS HOSP Condition: Serious
[2021-01-23 19:51] LABS: MCV 92.3 fL (80.0-100.0)
--- NOTE | 2021-01-23 19:53 | XR ---
EXAMINATION TYPE: XR chest 2V DATE OF EXAM: 01/23/2021 COMPARISON: Chest radiograph 12/30/2020 HISTORY: Shortness of breath TECHNIQUE: Frontal and lateral views of the chest are obtained. FINDINGS: The cardiomediastinal silhouette and pulmonary vasculature are within normal limits. There is new, diffuse reticular opacity that appears more patchy in the lower lungs. IMPRESSION: Patchy and interstitial opacity favored to represent multifocal pneumonia.
[2021-01-23] MEDS ORDERED: SODIUM CHLORIDE 0.9% 1,000 ML IV ONE (19:54)
[2021-01-23 20:10] LABS: INR 0.9 (<1.2); Partial Thromboplastin Time 24.4 sec (22.0-30.0); Prothrombin Time 10.2 sec (9.0-12.0)
[2021-01-23] MEDS: IPRATROPIUM-ALBUTEROL 3 ML NEB INHALATION SCH ×2 (20:36→23:33)
[2021-01-23] MEDS ORDERED: ACETAMINOPHEN TAB 325 MG TAB PO PRN (20:40)
[2021-01-23] MEDS ORDERED: NALOXONE 0.4 MG/ML 1 ML VIAL IV PRN (20:40)
[2021-01-23] MEDS ORDERED: AZITHROMYCIN 500 MG in SODIUM CHLORIDE 0.9% 250 ML IVPB SCH (20:45)
[2021-01-23] MEDS ORDERED: NON FORMULARY DRUG (Budesonide/Glycopyr/Formoterol [Breztri Aerosphere Inhaler] 10.7 GM Gm INHALATION SCH (21:00)
[2021-01-23] MEDS: SODIUM CHLORIDE 0.9% 1,000 ML IV SCH (22:22)
[2021-01-23] MEDS: GABAPENTIN 300 MG CAP PO SCH (22:23)
[2021-01-23] MEDS: KETOROLAC 15 MG/ML 1 ML VIAL IVP PRN (22:26)
[2021-01-23 22:30] LABS: ALT 18 U/L (4-34); AST 44 U/L (14-36); African American GFR (CKD) >90 (>60 ml/min/1.73 sqM); Albumin 3.5 g/dL (3.5-5.0); Alkaline Phosphatase 138 U/L (38-126); Blood Urea Nitrogen 11 mg/dL (7-17); Calcium 8.8 mg/dL (8.4-10.2); Carbon Dioxide 23 mmol/L (22-30); Chloride 107 mmol/L (98-107); Glucose 165 mg/dL (74-99); Non-African American GFR(CKD) >90 (>60 ml/min/1.73 sqM); Potassium 4.6 mmol/L (3.5-5.1); Total Bilirubin 0.4 mg/dL (0.2-1.3); Total Protein 6.9 g/dL (6.3-8.2)
[2021-01-23 23:07] LABS: HCG,Qualitative Serum Not Detected
[2021-01-23] MEDS ORDERED: IPRATROPIUM-ALBUTEROL 3 ML NEB INHALATION PRN (23:39)
[2021-01-24 00:12] LABS: Sodium 138 mmol/L (137-145)
[2021-01-24 00:15] LABS: Anion Gap 8 mmol/L
[2021-01-24] MEDS: MORPHINE SULFATE 4 MG/ML SYRINGE IV PRN (01:53)
--- NOTE | 2021-01-24 03:09 | P.HPIM ---
History of Present Illness H&P Date: 01/23/21 Chief Complaint: Shortness of breath 45-year-old female with COPD not on home oxygen Patient comes in with worsening shortness of breath over the past few weeks. About 7 months ago patient says she had bariatric surgery was complicated course resulted in splenectomy she's been trying to recover from that surgery over the past 7 months. And for the past 4 weeks she's been progressively having worsening exertional dyspnea she's been seeing pulmonology following up with Dr. Olvera and she has been on 2 courses of tapering dose of steroids and one course of antibiotics she's been using her inhalers and nebulizers at home with not much improvement she is complaining of wheezing easy fatigability and exertional dyspnea. She denies otherwise any recent travel she denies any history of blood clots she denies any fevers or chills she denies any chest pain nausea vomiting or abdominal pain she denies any hemoptysis. Patient denies any tobacco smoking illegal drugs or daily alcohol. Patient presents to the hospital today due to worsening shortness of breath and unable to go back to see her manager domestic due to no available appointments. In the ED she was found to have elevated lactic acid elevated leukocytosis and thrombocytosis. Chest x-ray showed patchy infiltrate she tested positive for RSV Review of Systems Pertinent positives as noted in HPI. All other systems were reviewed and are negative Past Medical History Past Medical History: Asthma, COPD, GERD/Reflux, Hypertension, Sleep Apnea/CPAP/BIPAP, Thyroid Disorder Additional Past Medical History / Comment(s): COPD, smoking-related interstitial lung disease, obstructive sleep apnea, morbid obesity, history of seizure disorder the age of 16 related to diet pills, endometriosis, chronic back pain, plantar fasciitis, Tran history of Achilles tendinitis, probably antibiotic induced. She also has history of hypothyroidism, ALLERGIC rhinitis. GALLBLADDER DISORDER, RECENT ABN WBC 27.9- 12/30/20 History of Any Multi-Drug Resistant Organisms: None Reported Past Surgical History: Bariatric Surgery, Tubal Ligation Additional Past Surgical History / Comment(s): LEEP PROCEDURE X 2, EGD, BACK INJECTIONS FOR PAIN. The patient has also undergone thoracic/thoracoscopic wedge biopsy of the right lung. 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; R and Y bypass at [facility] 2019,TRACHEOTOMY-RESOLVED Past Anesthesia/Blood Transfusion Reactions: Motion Sickness Past Psychological History: Anxiety Smoking Status: Former smoker Past Alcohol Use History: None Reported Past Drug Use History: None Reported - Past Family History Sister(s) Family Medical History: Cancer Mother Family Medical History: Cancer Additional Family Medical History / Comment(s): breast cancer Father Family Medical History: COPD, CVA/TIA, Myocardial Infarction ([place]) Additional Family Medical History / Comment(s): HEART PROBLEMS, AT AGE 64 Medications and Allergies Home Medications Medication Instructions Recorded Confirmed Type Levothyroxine Sodium [Synthroid] 50 mcg PO DAILY 01/05/14 01/23/21 History Hydrocodone/Acetaminophen [[place] 1 tab PO TID PRN 10/17/16 01/23/21 History 10-325] ALPRAZolam [Xanax] 0.5 mg PO TID PRN 11/24/17 01/23/21 History Sertraline [Zoloft] 100 mg PO BID 02/23/18 01/23/21 History Albuterol Nebulized [Ventolin 2.5 mg INHALATION RT-Q4H PRN 05/28/18 01/23/21 History Nebulized] Multivitamins, Thera [Multivitamin 1 tab PO DIRECTED 05/28/18 01/23/21 History (formulary)] Pantoprazole Sodium [Protonix] 40 mg PO DAILY 05/28/18 01/23/21 History Gabapentin [Neurontin] 300 mg PO BID 12/05/19 01/23/21 History Vitamin A [Vitamin A (8,000 Units 8,000 unit PO DIRECTED 12/19/19 01/23/21 History = 2,400 MCG)] Zinc Sulfate 220 mg PO DIRECTED 12/19/19 01/23/21 History Botox Injection 1 dose SQ Q90D 10/29/20 01/23/21 History Cyclobenzaprine [Flexeril] 10 mg PO HS 10/29/20 01/23/21 History Ipratropium/Albuterol Sulfate 1 puff INHALATION RT-QID PRN 10/29/20 01/23/21 History [Combivent Respimat Inhaler] Metoprolol Succinate (ER) [Toprol 12.5 mg PO DAILY 10/29/20 01/23/21 History Xl] Rimegepant Sulfate [Nurtec Odt] 75 mg PO DAILY PRN MDD 9 TIMES A 10/29/20 01/23/21 History MONTH SUMAtriptan SUCCINATE [Imitrex] 50 mg PO DAILY PRN MDD UP TO 9 10/29/20 01/23/21 History TIMES A MONTH predniSONE See Taper PO DAILY 12/29/20 01/23/21 History Fluticasone/Umeclidin/Vilanter 1 puff INHALATION RT-DAILY 12/31/20 01/23/21 History [Trelelio Ellipta 200-62.5-25] methocarbamoL [Robaxin] 750 mg PO BID 01/01/21 01/23/21 History Fluconazole [Diflucan] 100 mg PO DAILY 01/23/21 01/23/21 History Fluticasone Nasal [place] [Flonase 1 spr EA NOSTRIL BID PRN 01/23/21 01/23/21 History Nasal [place]] Levofloxacin [Levaquin] 750 mg PO DAILY 01/23/21 01/23/21 History Meclizine [Antivert] 12.5 mg PO BID PRN 01/23/21 01/23/21 History Montelukast [Singulair] 10 mg PO HS 01/23/21 01/23/21 History Promethazine HCl/Codeine 5 ml PO Q6H PRN 01/23/21 01/23/21 History [Promethazine-Codeine Syrup] Promethazine/Dextromethorphan 5 ml PO Q6H PRN 01/23/21 01/23/21 History [Promethazine-Dm Syrup] buPROPion HCL [Wellbutrin XL] 150 mg PO DAILY 01/23/21 01/23/21 History Allergies Allergy/AdvReac Type Severity Reaction Status Date / Time bee venom protein (honey bee) Allergy SWELLING , Verified 01/23/21 21:38 AND ITCHING nitrofurantoin Allergy Rash/Hives Verified 01/23/21 21:38 [From Macrobid] nitrofurantoin Allergy Rash/Hives Verified 01/23/21 21:38 macrocrystalline [From Macrobid] moxifloxacin [From Avelox] AdvReac Nausea & Verified 01/23/21 21:38 Vomiting seasonal allergies AdvReac Unknown Uncoded 01/23/21 21:38 Physical Exam Vitals: Vital Signs Temp Pulse Resp BP Pulse Ox 01/23/21 20:46 103 H 01/23/21 20:39 106 H 01/23/21 16:05 98.5 F 113 H 20 130/75 90 L Intake and Output 01/23/21 01/23/21 01/23/21 06:59 14:59 22:59 Other: Weight 71.214 kg Constitutional: No acute distress, conversant, pleasant Eyes: Anicteric sclerae, moist conjunctiva, Pupils equal round reactive to light ENMT: NC/AT Oropharynx clear, no erythema, or exudates Neck: Supple, FROM, no masses, or JVD No carotid bruits No thyromegaly Lungs: Prolonged expiratory phase with diffuse wheezing Clear to percussion Normal respiratory effort, no accessory muscle use Cardiovascular: Heart regular in rate and rhythm, No murmurs, gallops, or rubs No peripheral edema Abdominal: Soft Nontender, no guarding, rebound or rigidity Abdomen moving with respiration Normoactive bowel sounds No hepatomegaly, No splenomegaly No palpable mass No abdominal wall hernia noted Skin: Normal temperature, tone, texture, turgor No induration No subcutaneous nodules No rash, lesions No ulcers Extremities: No digital cyanosis No clubbing Pedal pulses intact and symmetrical Radial pulses intact and symmetrical No calf tenderness Psychiatric: Alert and oriented to person, place and time Appropriate affect fair judgement Neuro Muscles Strength 5/5 in all 4 extremities Sensation to light touch grossly present throughout Cranial nerves II-XII grossly intact No focal sensory deficits Lymphatics: no palpable cervical or supraclavicular , or inguinal lymph nodes Results CBC & Chem 7: 01/23/21 19:08 01/23/21 20:10 Labs: Abnormal Lab Results - Last 24 Hours (Table) 01/23/21 01/23/21 01/23/21 Range/Units 19:08 19:08 19:08 WBC 22.6 H (3.8-10.6) k/uL Plt Count 722 H (150-450) k/uL Neutrophils # 18.7 H (1.3-7.7) k/uL Monocytes # 1.4 H (0-1.0) k/uL Plasma Lactic Acid Miguel Angel 2.5 H* (0.7-2.0) mmol/L RSV (PCR) Detected A (Not Detectd) Assessment and Plan Assessment: Acute hypoxic respiratory failure, secondary to acute COPD exacerbation Sepsis secondary to possible pneumonia Lactic acidosis Plan Follow-up cultures Empiric broad-spectrum antibiotics azithromycin and Rocephin Breathing treatments treatments around the clock Systemic steroids When necessary DuoNeb's Supplemental oxygen as needed Symptomatic control IV fluid hydration with normal saline Follow-up cultures Check pro calcitonin Full code DVT prophylaxis with heparin subcu 3 times a day Anticipated length of stay more than 2 midnights Anticipated discharge home
[2021-01-24] MEDS: methylPREDNISolone SOD SUCCI 40 MG/ML 1 ML VIAL IV SCH ×4 (06:01→17:22)
[2021-01-24] MEDS: LEVOTHYROXINE 50 MCG TAB PO SCH (06:01)
[2021-01-24] MEDS ORDERED: PIPERACILLIN-TAZOBACTAM 3.375 GM in SODIUM CHLORIDE 0.9% 100 ML IVPB SCH (08:30)
[2021-01-24] MEDS: IPRATROPIUM-ALBUTEROL 3 ML NEB INHALATION SCH ×4 (08:31→21:07)
[2021-01-24] MEDS: SYMBICORT 80-4.5 MCG INHALER INHALATION SCH ×2 (08:31→21:07)
[2021-01-24] MEDS ORDERED: LEVOFLOXACIN 750 MG TAB PO SCH (09:00)
[2021-01-24] MEDS: buPROPion XL 150 MG TAB.ER.24H PO SCH (09:15)
[2021-01-24] MEDS: METOPROLOL SUCCINATE (ER) 25 MG TAB.ER.24H PO SCH (09:15)
[2021-01-24] MEDS: HEPARIN SODIUM,PORCINE/PF 5,000 UNIT/0.5 ML SYRINGE SQ SCH ×3 (09:15→16:00)
[2021-01-24] MEDS: MULTIVITAMINS, THERA 1 EACH TAB PO SCH (09:16)
[2021-01-24] MEDS: PANTOPRAZOLE 40 MG TABLET PO SCH (09:16)
[2021-01-24] MEDS: GABAPENTIN 300 MG CAP PO SCH ×2 (09:16→20:46)
[2021-01-24 09:46] LABS: African American GFR (CKD) >90 (>60 ml/min/1.73 sqM); Anion Gap 7 mmol/L; Blood Urea Nitrogen 14 mg/dL (7-17); Calcium 8.9 mg/dL (8.4-10.2); Carbon Dioxide 24 mmol/L (22-30); Chloride 107 mmol/L (98-107); Glucose 145 mg/dL (74-99); Non-African American GFR(CKD) >90 (>60 ml/min/1.73 sqM); Potassium 4.9 mmol/L (3.5-5.1); Sodium 138 mmol/L (137-145)
[2021-01-24] MEDS: SODIUM CHLORIDE 0.9% 1,000 ML IV SCH (09:46)
[2021-01-24] MEDS: KETOROLAC 15 MG/ML 1 ML VIAL IVP PRN (09:47)
[2021-01-24 11:34] LABS: Basophils # (A) 0.11 X 10*3/uL (0.00-0.10); Basophils % (A) 0.5 %; Eosinophils # (A) 0 X 10*3/uL (0.04-0.35); Eosinophils % (A) 0 %; HCT 40.2 % (37.2-46.3); HGB 12.6 g/dL (12.0-15.0); Lymphocytes # (A) 2.08 X 10*3/uL (0.90-5.00); Lymphocytes % (A) 9.3 %; MCH 29.2 pg (27.0-32.0); MCHC 31.3 g/dL (32.0-37.0); MCV 93.3 fL (80.0-97.0); Monocytes # (A) 0.53 X 10*3/uL (0.20-1.00); Monocytes % (A) 2.4 %; Neutrophils # (A) 19.07 X 10*3/uL (1.80-7.70); Neutrophils % (A) 85.6 %; Platelet Count 694 X 10*3/uL (140-440); RBC 4.31 X 10*6/uL (4.10-5.20); RDW 15.2 % (11.5-14.5); WBC 22.27 X 10*3/uL (4.50-10.00)
[2021-01-24] MEDS: MEROPENEM 2 GM in SODIUM CHLORIDE 0.9% 100 ML IVPB SCH ×2 (11:49→19:50)
[2021-01-24] MEDS: HYDROcodone/APAP 10-325MG 1 EACH TAB PO PRN ×2 (12:01→19:51)
--- NOTE | 2021-01-24 13:06 | P.CNPUL ---
History of Present Illness Consult date: 01/24/21 Requesting physician: Ramona Wray Reason for consult: dyspnea, cough Chief complaint: Shortness of breath, cough, congestion History of present illness: This is a very pleasant 45-year-old female patient with a known history of chronic obstructive pulmonary disease FEV1 value 74% of predicted, respiratory bronchiolitis associated interstitial lung disease maintained on Trelegy and maintenance prednisone at 5 mg daily, obstructive sleep apnea intolerant to CPAP, obesity, hypothyroidism, chronic back pain, previous bariatric surgical procedure, history of gastric and anastomotic leak, chronic anemia, history of splenectomy. She had also recently undergone bronchoscopy with BAL by Dr. Truong for recurrent pneumonias. She was found to have pseudomonas aeruginosa. She was initiated on a course of Ciprofloxacillin and she essentially failed and was seen by Dr. Truong in our office with worsening shortness of breath on 01/22/2021. At that time she was found to be hypoxic with O2 saturations in the low 80s. She was placed on oxygen at 2 L/m she was referred to the emergency room however she did want to be admitted. He started her on Levaquin 750 mg and Diflucan and was told to go to the ER if symptoms worsened and she presented here yesterday. Chest x-ray reveals patchy interstitial opacities favoring multifocal pneumonia. White count 22.2. Hemoglobin 12.6. Neutrophils 19.0. Sodium 138. Potassium 4.9. Bicarb 24. Creatinine 0.42. Troponins negative 2. Guillen virus not detected. Influenza not detected. She is positive for RSV. She's been initiated and DuoNeb inhalations, Symbicort, IV Solu-Medrol. Heparin for DVT prophylaxis. She is seen on the regular medical floor today in consultation. Awake and alert in no acute distress. She is breathing a bit easier today compared to yesterday. Still with a productive cough. Maintain O2 saturations in the 90s on 3 L/m per nasal cannula. She's been afebrile. Hemodynamically stable. Review of Systems REVIEW OF SYSTEMS: CONSTITUTIONAL: Denies any recent significant weight loss or weight gain. EYES: Denies change in vision. EARS, NOSE, MOUTH, THROAT: Denies headaches, denies sore throat. CARDIOVASCULAR: Denies chest pain, palpitations or syncopal episodes. RESPIRATORY: Positive for shortness of breath, cough, congestion no hemoptysis. GASTROINTESTINAL: Denies change in appetite, denies abdominal pain GENITOURINARY: Denies hematuria, denies infections. MUSKULOSKELETAL: Denies pain, denies swelling. INTEGUMENTARY: Denies rash, denies eczema. NEUROLOGICAL: Denies recent memory loss, no recent seizure activity. PSYCHIATRIC: Denies anxiety, denies depression. HEMATOLOGIC/LYMPHATIC: Denies anemia, denies enlarged lymph nodes. Past Medical History Past Medical History: Asthma, COPD, GERD/Reflux, Hypertension, Sleep Apnea /CPAP/BIPAP, Thyroid Disorder Additional Past Medical History / Comment(s): COPD, smoking-related interstitial lung disease, obstructive sleep apnea, morbid obesity, history of seizure disorder the age of 16 related to diet pills, endometriosis, chronic back pain, plantar fasciitis, Tran history of Achilles tendinitis, probably antibiotic induced. She also has history of hypothyroidism, ALLERGIC rhinitis. GALLBLADDER DISORDER, RECENT ABN WBC 27.9- 12/30/20 History of Any Multi-Drug Resistant Organisms: None Reported Past Surgical History: Bariatric Surgery, Tubal Ligation Additional Past Surgical History / Comment(s): LEEP PROCEDURE X 2, EGD, BACK INJECTIONS FOR PAIN. The patient has also undergone thoracic/thoracoscopic wedge biopsy of the right lung. 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; R and Y bypass at [facility] 2019,TRACHEOTOMY-RESOLVED Past Anesthesia/Blood Transfusion Reactions: Motion Sickness Past Psychological History: Anxiety Smoking Status: Former smoker Past Alcohol Use History: None Reported Past Drug Use History: None Reported - Past Family History Sister(s) Family Medical History: Cancer Mother Family Medical History: Cancer Additional Family Medical History / Comment(s): breast cancer Father Family Medical History: COPD, CVA/TIA, Myocardial Infarction ([place]) Additional Family Medical History / Comment(s): HEART PROBLEMS, AT AGE 64 Medications and Allergies Home Medications Medication Instructions Recorded Confirmed Type Levothyroxine Sodium [Synthroid] 50 mcg PO DAILY 01/05/14 01/23/21 History Hydrocodone/Acetaminophen [Raymond 1 tab PO TID PRN 10/17/16 01/23/21 History 10-325] ALPRAZolam [Xanax] 0.5 mg PO TID PRN 11/24/17 01/23/21 History Sertraline [Zoloft] 100 mg PO BID 02/23/18 01/23/21 History Albuterol Nebulized [Ventolin 2.5 mg INHALATION RT-Q4H PRN 05/28/18 01/23/21 History Nebulized] Multivitamins, Thera [Multivitamin 1 tab PO DIRECTED 05/28/18 01/23/21 Histo ry (formulary)] Pantoprazole Sodium [Protonix] 40 mg PO DAILY 05/28/18 01/23/21 History Gabapentin [Neurontin] 300 mg PO BID 12/05/19 01/23/21 History Vitamin A [Vitamin A (8,000 Units 8,000 unit PO DIRECTED 12/19/19 01/23/21 History = 2,400 MCG)] Zinc Sulfate 220 mg PO DIRECTED 12/19/19 01/23/21 History Botox Injection 1 dose SQ Q90D 10/29/20 01/23/21 History Cyclobenzaprine [Flexeril] 10 mg PO HS 10/29/20 01/23/21 History Ipratropium/Albuterol Sulfate 1 puff INHALATION RT-QID PRN 10/29/20 01/23/21 History [Combivent Respimat Inhaler] Metoprolol Succinate (ER) [Toprol 12.5 mg PO DAILY 10/29/20 01/23/21 History Xl] Rimegepant Sulfate [Nurtec Odt] 75 mg PO DAILY PRN MDD 9 TIMES A 10/29/20 01/23/21 History MONTH SUMAtriptan SUCCINATE [Imitrex] 50 mg PO DAILY PRN MDD UP TO 9 10/29/20 01/23/21 History TIMES A MONTH predniSONE See Taper PO DAILY 12/29/20 01/23/21 History Fluticasone/Umeclidin/Vilanter 1 puff INHALATION RT-DAILY 12/31/20 01/23/21 History [Trelegy Ellipta 200-62.5-25] methocarbamoL [Robaxin] 750 mg PO BID 01/01/21 01/23/21 History Fluconazole [Diflucan] 100 mg PO DAILY 01/23/21 01/23/21 History Fluticasone Nasal [place] [Flonase 1 spr EA NOSTRIL BID PRN 01/23/21 01/23/21 History Nasal [place]] Levofloxacin [Levaquin] 750 mg PO DAILY 01/23/21 01/23/21 History Meclizine [Antivert] 12.5 mg PO BID PRN 01/23/21 01/23/21 History Montelukast [Singulair] 10 mg PO HS 01/23/21 01/23/21 History Promethazine HCl/Codeine 5 ml PO Q6H PRN 01/23/21 01/23/21 History [Promethazine-Codeine Syrup] Promethazine/Dextromethorphan 5 ml PO Q6H PRN 01/23/21 01/23/21 History [Promethazine-Dm Syrup] buPROPion HCL [Wellbutrin XL] 150 mg PO DAILY 01/23/21 01/23/21 History Allergies Allergy/AdvReac Type Severity Reaction Status Date / Time bee venom protein (honey bee) Allergy SWELLING , Verified 01/23/21 21:38 AND ITCHING nitrofurantoin Allergy Rash/Hives Verified 01/23/21 21:38 [From Macrobid] nitrofurantoin Allergy Rash/Hives Verified 01/23/21 21:38 macrocrystalline [From Macrobid] moxifloxacin [From Avelox] AdvReac Nausea & Verified 01/23/21 21:38 Vomiting seasonal allergies AdvReac Unknown Uncoded 01/23/21 21:38 Physical Exam Vitals: Vital Signs Temp Pulse Pulse Resp BP BP Pulse Ox 01/24/21 12:07 96 01/24/21 11:58 96 01/24/21 08:43 89 01/24/21 08:33 86 01/24/21 08:00 97.8 F 80 16 126/78 97 01/24/21 03:07 98.5 F 17 95 01/24/21 01:41 98.5 F 104 H 17 135/78 96 01/24/21 00:45 95 01/24/21 00:14 91 20 123/76 97 01/23/21 23:47 101 H 01/23/21 23:35 103 H 97 01/23/21 20:46 103 H 01/23/21 20:39 106 H 01/23/21 19:45 24 01/23/21 16:05 98.5 F 113 H 20 130/75 90 L Intake and Output 01/23/21 01/24/21 01/24/21 22:59 06:59 14:59 Intake Total 360 Output Total 300 Balance 60 Intake: Oral 360 Output: Urine 300 Other: Voiding Method Toilet # Voids 1 Weight 71.214 kg 71.214 kg GENERAL EXAM: Alert, very pleasant 45-year-old female on 3 L/m per nasal cannula, comfortable in no apparent distress. HEAD: Normocephalic. EYES: Normal reaction of pupils, equal size. NOSE: Clear with pink turbinates. THROAT: No erythema or exudates. NECK: No masses, no JVD. CHEST: No chest wall deformity. LUNGS: Equal air entry with bilateral scattered rhonchi. CVS: S1 and S2 normal with no audible murmur, regular rhythm. ABDOMEN: No hepatosplenomegaly, normal bowel sounds, no guarding or rigidity. SPINE: No scoliosis or deformity SKIN: No rashes CENTRAL NERVOUS SYSTEM: No focal deficits, tone is normal in all 4 extremities. EXTREMITIES: There is no peripheral edema. No clubbing, no cyanosis. Peripheral pulses are intact. Results - Laboratory Findings CBC and BMP: 01/24/21 08:20 01/24/21 08:20 PT/INR, D-dimer PT 10.2 sec (9.0-12.0) 01/23/21 19:08 INR 0.9 (<1.2) 01/23/21 19:08 Abnormal lab findings: Abnormal Labs 01/23/21 01/23/21 01/23/21 19:08 19:08 19:08 WBC 22.6 H MCHC RDW Plt Count 722 H MPV Absolute Nucleated RBC Immature Gran # Neutrophils # 18.7 H Monocytes # 1.4 H Eosinophils # Basophils # NRBC/100 WBC Diff Creatinine Glucose Plasma Lactic Acid Miguel Angel 2.5 H* AST Alkaline Phosphatase RSV (PCR) Detected A 01/23/21 01/24/21 01/24/21 20:10 08:20 08:20 WBC 22.27 H MCHC 31.3 L RDW 15.2 H Plt Count 694 H MPV 9.0 L Absolute Nucleated RBC 0.25 H Immature Gran # 0.48 H Neutrophils # 19.07 H Monocytes # Eosinophils # 0 L Basophils # 0.11 H NRBC/100 WBC Diff 1.1 H Creatinine 0.42 L 0.42 L Glucose 165 H 145 H Plasma Lactic Acid Miguel Angel AST 44 H Alkaline Phosphatase 138 H RSV (PCR) - Diagnostic Findings Chest x-ray: image reviewed Assessment and Plan Assessment: 1 Acute hypoxemic respiratory failure secondary to bilateral pneumonia secondary to pseudomonas aeruginosa and complicated by RSV 2 Pseudomonas aeruginosa infection diagnosed by outpatient bronchoscopy and BAL on 01/01/2021. Treated with ciprofloxacin without much improvement 3 Chronic obstructive lung disease with an FEV1 value 74% of predicted. Trelegy and DuoNeb's in the outpatient setting along with 5 mg of prednisone daily 4 History of respiratory bronchiolitis, smoking-related, associated interstitial lung disease, quit smoking greater than one year ago 5 Obstructive sleep apnea, intolerant to CPAP therapy 6 Obesity with previous bariatric surgery complicated by gastric leak and abdominal abscess 7 Hypothyroidism 8 Chronic back pain 9 Chronic anemia 10 History of splenectomy Plan: The patient was seen and evaluated by Dr. Kelley Discontinue Levaquin, initiate meropenem Obtain sputum sample if possible Continue IV Solu-Medrol, bronchodilators Titrate the FiO2 as tolerated We will continue to follow and make further recommendations based on her clinical status I, the cosigning physician, performed a history & physical examination of the patient. Lungs sounds with bilateral scattered rhonchi. Maintaining good O2 saturations in the 90s on 3 L/m per nasal cannula. I discussed the assessment and plan of care with my nurse practitioner, Magdalena Woods. I attest to the above note as dictated by her. Time with Patient: Greater than 30
--- NOTE | 2021-01-24 16:02 | P.PN ---
Subjective Progress Note Date: 01/24/21 Pt sitting in bed resting comfortably. Still has dyspnea on exertion. Reports improvement. No further chills, fevers. Objective - Vital Signs Vital signs: Vital Signs Temp 97.4 F L 01/24/21 14:00 Pulse 86 01/24/21 14:00 Resp 18 01/24/21 14:00 BP 120/72 01/24/21 14:00 Pulse Ox 94 L 01/24/21 14:00 Intake & Output 01/23/21 01/24/21 01/24/21 18:59 06:59 18:59 Intake Total 360 Output Total 300 Balance 60 Weight 71.214 kg 71.214 kg Intake: Oral 360 Output: Urine 300 Other: Voiding Method Toilet # Voids 1 - Exam Gen: awake, alert HEENT: normocephalic, atraumatic, good hearing acuity, moist mucous membranes Resp: Diffuse crackles posteriorly, wheezing CVS: good distal perfusion x 4, regular rate and rhythm without murmurs GI: soft, NTTP, ND : no SPT, no CVAT, treviño catheter not present MSK: no pitting edema, no clubbing Neuro: non-focal, moving all extremities Psych: cooperative, euthymic mood - Labs CBC & Chem 7: 01/24/21 08:20 01/24/21 08:20 Labs: Abnormal Lab Results - Last 24 Hours (Table) 01/23/21 01/23/21 01/23/21 Range/Units 19:08 19:08 19:08 WBC 22.6 H (3.8-10.6) k/uL MCHC (32.0-37.0) g/dL RDW (11.5-14.5) % Plt Count 722 H (150-450) k/uL MPV (9.5-12.2) fL Absolute Nucleated RBC (0.00-0.00) X 10*3/uL Immature Gran # (0.00-0.04) X 10*3/uL Neutrophils # 18.7 H (1.3-7.7) k/uL Monocytes # 1.4 H (0-1.0) k/uL Eosinophils # (0.04-0.35) X 10*3/uL Basophils # (0.00-0.10) X 10*3/uL NRBC/100 WBC Diff (0.0-0.0) /100 WBCS Creatinine (0.52-1.04) mg/dL Glucose (74-99) mg/dL Plasma Lactic Acid Miguel Angel 2.5 H* (0.7-2.0) mmol/L AST (14-36) U/L Alkaline Phosphatase (38-126) U/L RSV (PCR) Detected A (Not Detectd) 01/23/21 01/24/21 01/24/21 Range/Units 20:10 08:20 08:20 WBC 22.27 H (3.8-10.6) k/uL MCHC 31.3 L (32.0-37.0) g/dL RDW 15.2 H (11.5-14.5) % Plt Count 694 H (150-450) k/uL MPV 9.0 L (9.5-12.2) fL Absolute Nucleated RBC 0.25 H (0.00-0.00) X 10*3/uL Immature Gran # 0.48 H (0.00-0.04) X 10*3/uL Neutrophils # 19.07 H (1.3-7.7) k/uL Monocytes # (0-1.0) k/uL Eosinophils # 0 L (0.04-0.35) X 10*3/uL Basophils # 0.11 H (0.00-0.10) X 10*3/uL NRBC/100 WBC Diff 1.1 H (0.0-0.0) /100 WBCS Creatinine 0.42 L 0.42 L (0.52-1.04) mg/dL Glucose 165 H 145 H (74-99) mg/dL Plasma Lactic Acid Miguel Angel (0.7-2.0) mmol/L AST 44 H (14-36) U/L Alkaline Phosphatase 138 H (38-126) U/L RSV (PCR) (Not Detectd) Assessment and Plan Assessment: Acute hypoxic respiratory failure, secondary to acute COPD exacerbation Sepsis secondary to possible pneumonia Lactic acidosis Plan Follow-up cultures Empiric broad-spectrum antibiotics azithromycin and Rocephin Breathing treatments treatments around the clock Systemic steroids When necessary DuoNeb's Supplemental oxygen as needed Symptomatic control IV fluid hydration with normal saline Follow-up cultures Check pro calcitonin Full code DVT prophylaxis with heparin subcu 3 times a day Anticipated length of stay more than 2 midnights Anticipated discharge home
[2021-01-24] MEDS: MONTELUKAST 10 MG TAB PO SCH (20:46)
[2021-01-25] MEDS: methylPREDNISolone SOD SUCCI 40 MG/ML 1 ML VIAL IV SCH ×4 (00:54→18:14)
[2021-01-25] MEDS: HEPARIN SODIUM,PORCINE/PF 5,000 UNIT/0.5 ML SYRINGE SQ SCH ×3 (00:54→18:14)
[2021-01-25] MEDS: SODIUM CHLORIDE 0.9% 1,000 ML IV SCH ×2 (00:55→15:49)
[2021-01-25] MEDS: HYDROcodone/APAP 10-325MG 1 EACH TAB PO PRN ×3 (01:00→20:38)
[2021-01-25] MEDS: MEROPENEM 2 GM in SODIUM CHLORIDE 0.9% 100 ML IVPB SCH ×3 (03:45→20:39)
[2021-01-25] MEDS: LEVOTHYROXINE 50 MCG TAB PO SCH (05:37)
[2021-01-25] MEDS: METOPROLOL SUCCINATE (ER) 25 MG TAB.ER.24H PO SCH (07:58)
[2021-01-25] MEDS: GABAPENTIN 300 MG CAP PO SCH ×2 (07:58→20:38)
[2021-01-25] MEDS: MULTIVITAMINS, THERA 1 EACH TAB PO SCH (07:58)
[2021-01-25] MEDS: PANTOPRAZOLE 40 MG TABLET PO SCH (07:59)
[2021-01-25] MEDS: buPROPion XL 150 MG TAB.ER.24H PO SCH (07:59)
[2021-01-25] MEDS: IPRATROPIUM-ALBUTEROL 3 ML NEB INHALATION SCH ×4 (08:07→20:22)
[2021-01-25] MEDS: SYMBICORT 80-4.5 MCG INHALER INHALATION SCH ×2 (08:07→20:22)
[2021-01-25] MEDS: MORPHINE SULFATE 4 MG/ML SYRINGE IV PRN (13:00)
--- NOTE | 2021-01-25 13:13 | P.PN ---
Subjective Progress Note Date: 01/25/21 Principal diagnosis: Acute exacerbation of COPD, positive for RSV, and recent pseudomonal tracheobronchitis This is a very pleasant 45-year-old female patient with a known history of chronic obstructive pulmonary disease FEV1 value 74% of predicted, respiratory bronchiolitis associated interstitial lung disease maintained on Trelegy and maintenance prednisone at 5 mg daily, obstructive sleep apnea intolerant to CPAP, obesity, hypothyroidism, chronic back pain, previous bariatric surgical procedure, history of gastric and anastomotic leak, chronic anemia, history of splenectomy. She had also recently undergone bronchoscopy with BAL by Dr. Truong for recurrent pneumonias. She was found to have pseudomonas aeruginosa. She was initiated on a course of Ciprofloxacillin and she essentially failed and was seen by Dr. Truogn in our office with worsening shortness of breath on 01/22/2021. At that time she was found to be hypoxic with O2 saturations in the low 80s. She was placed on oxygen at 2 L/m she was referred to the emergency room however she did want to be admitted. He started her on Levaquin 750 mg and Diflucan and was told to go to the ER if symptoms worsened and she presented here yesterday. Chest x-ray reveals patchy interstitial opacities favoring multifocal pneumonia. White count 22.2. Hemoglobin 12.6. Neutrophils 19.0. Sodium 138. Potassium 4.9. Bicarb 24. Creatinine 0.42. Troponins negative 2. Guillen virus not detected. Influenza not detected. She is positive for RSV. She's been initiated and DuoNeb inhalations, Symbicort, IV Solu-Medrol. Heparin for DVT prophylaxis. She is seen on the regular medical floor today in consultation. Awake and alert in no acute distress. She is breathing a bit easier today compared to yesterday. Still with a productive cough. Maintain O2 saturations in the 90s on 3 L/m per nasal cannula. She's been afebrile. Hemodynamically stable. On 01/25/2021 patient is seen in follow-up in medical surgical floor, she seems to be doing better, she reports improvement with her breathing, currently on 3 L of oxygen, and her pulse ox is 94%, she has been afebrile, she remains on meropenem for recent history of positive bronchial alveolar lavage positive for pseudomonas aeruginosa which was resistant to cephalosporins. Patient has been treated with a course of ciprofloxacin and subsequently with Levaquin, she was also positive for RSV during this admission. She is afebrile, hemodynamically she remains stable. Her chest x-ray on admission showed patchy interstitial opacities favoring to represent multifocal pneumonia. Sputum culture has been sent, and is still pending, blood cultures have shown no growth at the 24-hour erasto. Today's labs have been reviewed showing white blood cell count relatively stable at 22.2, hemoglobin is 12.6, electrolytes and renal profile were unrem arkable, postop calcitonin level was negative at 0.04. Objective - Vital Signs Vital signs: Vital Signs Temp 97.9 F 01/25/21 08:00 Pulse 92 01/25/21 11:40 Resp 16 01/25/21 08:00 BP 115/72 01/25/21 08:00 Pulse Ox 94 L 01/25/21 08:00 Intake & Output 01/24/21 01/25/21 01/25/21 18:59 06:59 18:59 Intake Total 1080 Balance 1080 Intake: Oral 1080 Other: Voiding Method Toilet Toilet # Voids 3 2 - Exam GENERAL EXAM: Alert, very pleasant, 45-year-old white female, creatinine 3 L of oxygen and the pulse ox of 94% comfortable in no apparent distress. HEAD: Normocephalic/atraumatic. EYES: Normal reaction of pupils, equal size. Conjunctiva pink, sclera white. NOSE: Clear with pink turbinates. THROAT: No erythema or exudates. NECK: No masses, no JVD, no thyroid enlargement, no adenopathy. CHEST: No chest wall deformity. Symmetrical expansion. LUNGS: Equal air entry with a few scat wheezes CVS: Regular rate and rhythm, normal S1 and S2, no gallops, no murmurs, no rubs ABDOMEN: Soft, nontender. No hepatosplenomegaly, normal bowel sounds, no guarding or rigidity. EXTREMITIES: No clubbing, no edema, no cyanosis, 2+ pulses and upper and lower extremities. MUSCULOSKELETAL: Muscle strength and tone normal. SPINE: No scoliosis or deformity SKIN: No rashes CENTRAL NERVOUS SYSTEM: Alert and oriented -3. No focal deficits, tone is normal in all 4 extremities. PSYCHIATRIC: Alert and oriented -3. Appropriate affect. Intact judgment and insight. - Labs CBC & Chem 7: 01/24/21 08:20 01/24/21 08:20 Labs: Microbiology - Last 24 Hours (Table) 01/24/21 22:00 Sputum Culture - Preliminary Sputum 01/23/21 20:10 Blood Culture - Preliminary Blood No Growth after 24 hours 01/23/21 20:10 Blood Culture - Preliminary Blood No Growth after 24 hours Assessment and Plan Plan: Assessment: #1. Acute hypoxemic respiratory failure secondary to bilateral pneumonia secondary to pseudomonas aeruginosa and complicated by RSV #2. Pseudomonas aeruginosa infection diagnosed by outpatient bronchoscopy and BAL on 01/01/2021. Treated with ciprofloxacin without much improvement #3. Chronic obstructive lung disease with an FEV1 value 74% of predicted. Trelegy and DuoNeb's in the outpatient setting along with 5 mg of prednisone daily #4. History of respiratory bronchiolitis, smoking-related, associated interstitial lung disease, quit smoking greater than one year ago #5. Obstructive sleep apnea, intolerant to CPAP therapy #6. Obesity with previous bariatric surgery complicated by gastric leak and abdominal abscess #7. Hypothyroidism #8. Chronic back pain #9. Chronic anemia #10 History of splenectomy Plan: Continue current medical treatment Continue IV steroids Continue meropenem Will await final cultures Clinically improving Follow-up chest x-ray tomorrow Follow-up labs I performed a history & physical examination of the patient and discussed their management with my nurse practitioner, Kimberly Delatorre. I reviewed the nurse practitioner's note and agree with the documented findings and plan of care. Lung sounds are positive for diffuse wheezes throughout the lung jamil. The findings and the impression was discussed with the patient. I attest to the documentation by the nurse practitioner. Time with Patient: Less than 30
--- NOTE | 2021-01-25 14:23 | P.PN ---
Subjective Progress Note Date: 01/25/21 No new complaints. Patient says she is overall improving. Still feels dyspneic on exertion. Objective - Vital Signs Vital signs: Vital Signs Temp 97.9 F 01/25/21 08:00 Pulse 92 01/25/21 11:40 Resp 16 01/25/21 08:00 BP 115/72 01/25/21 08:00 Pulse Ox 94 L 01/25/21 08:00 Intake & Output 01/24/21 01/25/21 01/25/21 18:59 06:59 18:59 Intake Total 1080 Balance 1080 Intake: Oral 1080 Other: Voiding Method Toilet Toilet # Voids 3 2 - Exam Gen: awake, alert HEENT: normocephalic, atraumatic, good hearing acuity, moist mucous membranes Resp: Diffuse crackles posteriorly, wheezing CVS: good distal perfusion x 4, regular rate and rhythm without murmurs GI: soft, NTTP, ND : no SPT, no CVAT, treviño catheter not present MSK: no pitting edema, no clubbing Neuro: non-focal, moving all extremities Psych: cooperative, euthymic mood - Labs CBC & Chem 7: 01/24/21 08:20 01/24/21 08:20 Labs: Microbiology - Last 24 Hours (Table) 01/24/21 22:00 Sputum Culture - Preliminary Sputum 01/23/21 20:10 Blood Culture - Preliminary Blood No Growth after 24 hours 01/23/21 20:10 Blood Culture - Preliminary Blood No Growth after 24 hours Assessment and Plan Assessment: Acute hypoxic respiratory failure, secondary to acute COPD exacerbation Sepsis secondary to pseudomonal pneumonia Lactic acidosis Plan Follow-up cultures Empiric broad-spectrum antibiotics meropenem Breathing treatments treatments around the clock Systemic steroids When necessary DuoNeb's Supplemental oxygen as needed Symptomatic control IV fluid hydration with normal saline Follow-up cultures Check pro calcitonin Full code DVT prophylaxis with heparin subcu 3 times a day Anticipated length of stay more than 2 midnights Anticipated discharge home
[2021-01-25] MEDS: MONTELUKAST 10 MG TAB PO SCH (20:38)
[2021-01-26] MEDS: HEPARIN SODIUM,PORCINE/PF 5,000 UNIT/0.5 ML SYRINGE SQ SCH ×3 (00:08→16:14)
[2021-01-26] MEDS: methylPREDNISolone SOD SUCCI 40 MG/ML 1 ML VIAL IV SCH ×4 (00:08→16:14)
[2021-01-26] MEDS: ALPRAZolam 0.5 MG TAB PO PRN (00:08)
[2021-01-26] MEDS: MEROPENEM 2 GM in SODIUM CHLORIDE 0.9% 100 ML IVPB SCH ×3 (05:27→20:05)
[2021-01-26] MEDS: LEVOTHYROXINE 50 MCG TAB PO SCH (05:27)
[2021-01-26] MEDS: SODIUM CHLORIDE 0.9% 1,000 ML IV SCH ×2 (05:32→16:35)
--- NOTE | 2021-01-26 07:29 | XR ---
EXAMINATION TYPE: XR chest 1V portable DATE OF EXAM: 01/26/2021 COMPARISON: Chest x-ray 01/23/2021 HISTORY: Dyspnea and shortness of breath TECHNIQUE: Single frontal view of the chest is obtained. FINDINGS: Patient is rotated, technique somewhat apical lordotic. Interstitium is prominent, patchy bilateral airspace disease is noted. There is no evident pneumothorax or pleural effusion. Right susanne diaphragm remains elevated. Metallic densities are present in left upper quadrant. Cardiac mediastina l silhouette is stable, possibly borderline enlarged. Prominence of pulmonary artery could be indicat humble of pulmonary artery hypertension. Aorta is dense. IMPRESSION: Correlate for pneumonia, suspect interstitial lung disease. Borderline enlarged heart si ze.
[2021-01-26] MEDS: MULTIVITAMINS, THERA 1 EACH TAB PO SCH (08:24)
[2021-01-26] MEDS: IPRATROPIUM-ALBUTEROL 3 ML NEB INHALATION SCH ×4 (08:24→19:58)
[2021-01-26] MEDS: GABAPENTIN 300 MG CAP PO SCH ×2 (08:24→20:05)
[2021-01-26] MEDS: SYMBICORT 80-4.5 MCG INHALER INHALATION SCH ×2 (08:24→19:58)
[2021-01-26] MEDS: METOPROLOL SUCCINATE (ER) 25 MG TAB.ER.24H PO SCH (08:24)
[2021-01-26] MEDS: PANTOPRAZOLE 40 MG TABLET PO SCH (08:24)
[2021-01-26] MEDS: buPROPion XL 150 MG TAB.ER.24H PO SCH (08:25)
[2021-01-26] MEDS: HYDROcodone/APAP 10-325MG 1 EACH TAB PO PRN ×2 (08:25→16:13)
[2021-01-26 11:23] LABS: HCT 41.2 % (37.2-46.3); HGB 12.8 g/dL (12.0-15.0); MCH 28.9 pg (27.0-32.0); MCHC 31.1 g/dL (32.0-37.0); Platelet Count 750 X 10*3/uL (140-440); RBC 4.43 X 10*6/uL (4.10-5.20); RDW 15.2 % (11.5-14.5); WBC 31.21 X 10*3/uL (4.50-10.00)
[2021-01-26 11:44] LABS: African American GFR (CKD) 135.9 (60.0-200.0); Anion Gap 10.5 mmol/L (4.00-12.00); BUN/Creat Ratio 42.95 Ratio (12.00-20.00); Blood Urea Nitrogen 20.4 mg/dL (9.0-27.0); Calcium 8.8 mg/dL (8.7-10.3); Carbon Dioxide 25.5 mmol/L (21.6-31.8); Non-African American GFR(CKD) 117.2 (60.0-200.0); Potassium 4.9 mmol/L (3.5-5.5)
[2021-01-26 11:58] LABS: Basophils # (A) 0.11 X 10*3/uL (0.00-0.10); Basophils % (A) 0.4 %; Eosinophils # (A) 0 X 10*3/uL (0.04-0.35); Eosinophils % (A) 0 %; Lymphocytes # (A) 2.07 X 10*3/uL (0.90-5.00); Lymphocytes % (A) 6.6 %; Monocytes # (A) 1.38 X 10*3/uL (0.20-1.00); Monocytes % (A) 4.4 %; Neutrophils # (A) 26.99 X 10*3/uL (1.80-7.70); Neutrophils % (A) 86.5 %
[2021-01-26] MEDS: KETOROLAC 15 MG/ML 1 ML VIAL IVP PRN (12:02)
--- NOTE | 2021-01-26 15:02 | P.PN ---
Subjective Progress Note Date: 01/26/21 Principal diagnosis: Acute exacerbation of COPD, positive for RSV, and recent pseudomonal tracheobronchitis This is a very pleasant 45-year-old female patient with a known history of chronic obstructive pulmonary disease FEV1 value 74% of predicted, respiratory bronchiolitis associated interstitial lung disease maintained on Trelegy and maintenance prednisone at 5 mg daily, obstructive sleep apnea intolerant to CPAP, obesity, hypothyroidism, chronic back pain, previous bariatric surgical procedure, history of gastric and anastomotic leak, chronic anemia, history of splenectomy. She had also recently undergone bronchoscopy with BAL by Dr. Truong for recurrent pneumonias. She was found to have pseudomonas aeruginosa. She was initiated on a course of Ciprofloxacillin and she essentially failed and was seen by Dr. Truong in our office with worsening shortness of breath on 01/22/2021. At that time she was found to be hypoxic with O2 saturations in the low 80s. She was placed on oxygen at 2 L/m she was referred to the emergency room however she did want to be admitted. He started her on Levaquin 750 mg and Diflucan and was told to go to the ER if symptoms worsened and she presented here yesterday. Chest x-ray reveals patchy interstitial opacities favoring multifocal pneumonia. White count 22.2. Hemoglobin 12.6. Neutrophils 19.0. Sodium 138. Potassium 4.9. Bicarb 24. Creatinine 0.42. Troponins negative 2. Guillen virus not detected. Influenza not detected. She is positive for RSV. She's been initiated and DuoNeb inhalations, Symbicort, IV Solu-Medrol. Heparin for DVT prophylaxis. She is seen on the regular medical floor today in consultation. Awake and alert in no acute distress. She is breathing a bit easier today compared to yesterday. Still with a productive cough. Maintain O2 saturations in the 90s on 3 L/m per nasal cannula. She's been afebrile. Hemodynamically stable. On 01/25/2021 patient is seen in follow-up in medical surgical floor, she seems to be doing better, she reports improvement with her breathing, currently on 3 L of oxygen, and her pulse ox is 94%, she has been afebrile, she remains on meropenem for recent history of positive bronchial alveolar lavage positive for pseudomonas aeruginosa which was resistant to cephalosporins. Patient has been treated with a course of ciprofloxacin and subsequently with Levaquin, she was also positive for RSV during this admission. She is afebrile, hemodynamically she remains stable. Her chest x-ray on admission showed patchy interstitial opacities favoring to represent multifocal pneumonia. Sputum culture has been sent, and is still pending, blood cultures have shown no growth at the 24-hour erasto. Today's labs have been reviewed showing white blood cell count relatively stable at 22.2, hemoglobin is 12.6, electrolytes and renal profile were unrem arkable, postop calcitonin level was negative at 0.04. On 01/26/2021 patient is seen in follow-up on medical surgical floor. Is resting comfortably in bed, she is breathing comfortably, still a bit wheezy, and congested, but overall feeling better, pulse ox on 3 L of oxygen is 93-96%, afebrile, hemodynamically she has been stable, follow-up chest x-ray today showing prominent interstitium, patchy bilateral airspace disease no evident pneumothorax. Patient remains on meropenem for possibility of pseudomonal infection, so far her sputum culture was only positive for Mckenna albicans, blood cultures have been negative, patient is on IV steroids, she was positive for RSV. LEVEL was negative at 0.04, her white blood cell count has increased up to 31.2, hemoglobin is 12.8, her electrolytes were within normal limits, BUN is 20, creatinine 0.5 Objective - Vital Signs Vital signs: Vital Signs Temp 97.9 F 01/26/21 08:00 Pulse 82 01/26/21 12:16 Resp 22 01/26/21 08:00 BP 141/87 01/26/21 08:00 Pulse Ox 84 L 01/26/21 08:24 Intake & Output 01/25/21 01/26/21 01/26/21 18:59 06:59 18:59 Other: Voiding Method Toilet # Voids 3 - Exam GENERAL EXAM: Alert, very pleasant, 45-year-old white female, creatinine 3 L of oxygen and the pulse ox of 94% comfortable in no apparent distress. HEAD: Normocephalic/atraumatic. EYES: Normal reaction of pupils, equal size. Conjunctiva pink, sclera white. NOSE: Clear with pink turbinates. THROAT: No erythema or exudates. NECK: No masses, no JVD, no thyroid enlargement, no adenopathy. CHEST: No chest wall deformity. Symmetrical expansion. LUNGS: Equal air entry with a few scat wheezes CVS: Regular rate and rhythm, normal S1 and S2, no gallops, no murmurs, no rubs ABDOMEN: Soft, nontender. No hepatosplenomegaly, normal bowel sounds, no guarding or rigidity. EXTREMITIES: No clubbing, no edema, no cyanosis, 2+ pulses and upper and lower extremities. MUSCULOSKELETAL: Muscle strength and tone normal. SPINE: No scoliosis or deformity SKIN: No rashes CENTRAL NERVOUS SYSTEM: Alert and oriented -3. No focal deficits, tone is normal in all 4 extremities. PSYCHIATRIC: Alert and oriented -3. Appropriate affect. Intact judgment and insight. - Labs CBC & Chem 7: 01/26/21 07:16 01/26/21 07:16 Labs: Abnormal Lab Results - Last 24 Hours (Table) 01/26/21 01/26/21 Range/Units 07:16 07:16 WBC 31.21 H (4.50-10.00) X 10*3/uL MCHC 31.1 L (32.0-37.0) g/dL RDW 15.2 H (11.5-14.5) % Plt Count 750 H (140-440) X 10*3/uL Plt Count Comment INCREASED A MPV 9.0 L (9.5-12.2) fL Absolute Nucleated RBC 0.27 H (0.00-0.00) X 10*3/uL Immature Gran # 0.66 H (0.00-0.04) X 10*3/uL Neutrophils # 26.99 H (1.80-7.70) X 10*3/uL Monocytes # 1.38 H (0.20-1.00) X 10*3/uL Eosinophils # 0 L (0.04-0.35) X 10*3/uL Basophils # 0.11 H (0.00-0.10) X 10*3/uL NRBC/100 WBC Diff 0.9 H (0.0-0.0) /100 WBCS Creatinine 0.5 L (0.6-1.5) mg/dL BUN/Creatinine Ratio 42.95 H (12.00-20.00) Ratio Microbiology - Last 24 Hours (Table) 01/24/21 22:00 Gram Stain - Preliminary Sputum Sputum Culture - Preliminary Mckenna albicans 01/23/21 20:10 Blood Culture - Preliminary Blood No Growth after 48 hours 01/23/21 20:10 Blood Culture - Preliminary Blood No Growth after 48 hours Assessment and Plan Plan: Assessment: #1. Acute hypoxemic respiratory failure secondary to bilateral pneumonia secondary to pseudomonas aeruginosa and complicated by RSV #2. Pseudomonas aeruginosa infection diagnosed by outpatient bronchoscopy and BAL on 01/01/2021. Treated with ciprofloxacin without much improvement #3. Chronic obstructive lung disease with an FEV1 value 74% of predicted. Tr elegy and DuoNeb's in the outpatient setting along with 5 mg of prednisone daily #4. History of respiratory bronchiolitis, smoking-related, associated interstitial lung disease, quit smoking greater than one year ago #5. Obstructive sleep apnea, intolerant to CPAP therapy #6. Obesity with previous bariatric surgery complicated by gastric leak and abdominal abscess #7. Hypothyroidism #8. Chronic back pain #9. Chronic anemia #10 History of splenectomy Plan: Today's chest x-ray has been reviewed still showing interstitial infiltrates Continue current medical treatment, continue meropenem, continue IV steroids Continue nebulized bronchodilators Weaning FiO2, Blood cultures have been negative, sputum culture so far just showed Mckenna Pro calcitonin level is negative at 0.04 If Patient continues to improve she may be considered for discharge home in the next 24 hours to finish outpatient course of Levaquin for 6 more days I performed a history & physical examination of the patient and discussed their management with my nurse practitioner, Kimberly Delatorre. I reviewed the nurse pr actitioner's note and agree with the documented findings and plan of care. Lung sounds are positive for diffuse wheezes throughout the lung jamil. The findings and the impression was discussed with the patient. I attest to the documentation by the nurse practitioner. Time with Patient: Less than 30
--- NOTE | 2021-01-26 15:17 | P.PN ---
Subjective Progress Note Date: 01/26/21 No new complaints today, still dyspneic on exertion. Objective - Vital Signs Vital signs: Vital Signs Temp 97.9 F 01/26/21 08:00 Pulse 82 01/26/21 12:16 Resp 22 01/26/21 08:00 BP 141/87 01/26/21 08:00 Pulse Ox 84 L 01/26/21 08:24 Intake & Output 01/25/21 01/26/21 01/26/21 18:59 06:59 18:59 Other: Voiding Method Toilet # Voids 3 - Exam Gen: awake, alert HEENT: normocephalic, atraumatic, good hearing acuity, moist mucous membranes Resp: Diffuse crackles posteriorly, wheezing CVS: good distal perfusion x 4, regular rate and rhythm without murmurs GI: soft, NTTP, ND : no SPT, no CVAT, treviño catheter not present MSK: no pitting edema, no clubbing Neuro: non-focal, moving all extremities Psych: cooperative, euthymic mood - Labs CBC & Chem 7: 01/26/21 07:16 01/26/21 07:16 Labs: Abnormal Lab Results - Last 24 Hours (Table) 01/26/21 01/26/21 Range/Units 07:16 07:16 WBC 31.21 H (4.50-10.00) X 10*3/uL MCHC 31.1 L (32.0-37.0) g/dL RDW 15.2 H (11.5-14.5) % Plt Count 750 H (140-440) X 10*3/uL Plt Count Comment INCREASED A MPV 9.0 L (9.5-12.2) fL Absolute Nucleated RBC 0.27 H (0.00-0.00) X 10*3/uL Immature Gran # 0.66 H (0.00-0.04) X 10*3/uL Neutrophils # 26.99 H (1.80-7.70) X 10*3/uL Monocytes # 1.38 H (0.20-1.00) X 10*3/uL Eosinophils # 0 L (0.04-0.35) X 10*3/uL Basophils # 0.11 H (0.00-0.10) X 10*3/uL NRBC/100 WBC Diff 0.9 H (0.0-0.0) /100 WBCS Creatinine 0.5 L (0.6-1.5) mg/dL BUN/Creatinine Ratio 42.95 H (12.00-20.00) Ratio Microbiology - Last 24 Hours (Table) 01/24/21 22:00 Gram Stain - Preliminary Sputum Sputum Culture - Preliminary Mckenna albicans 01/23/21 20:10 Blood Culture - Preliminary Blood No Growth after 48 hours 01/23/21 20:10 Blood Culture - Preliminary Blood No Growth after 48 hours Assessment and Plan Assessment: Acute hypoxic respiratory failure, secondary to acute COPD exacerbation Sepsis secondary to pseudomonal pneumonia Lactic acidosis Plan Follow-up cultures Empiric broad-spectrum antibiotics meropenem Breathing treatments treatments around the clock Systemic steroids When necessary DuoNeb's Supplemental oxygen as needed Symptomatic control IV fluid hydration with normal saline Follow-up cultures Check pro calcitonin Full code DVT prophylaxis with heparin subcu 3 times a day Anticipated length of stay more than 2 midnights Anticipated discharge home
[2021-01-26] MEDS: MORPHINE SULFATE 4 MG/ML SYRINGE IV PRN (20:04)
[2021-01-26] MEDS: MONTELUKAST 10 MG TAB PO SCH (20:05)
[2021-01-27] MEDS: methylPREDNISolone SOD SUCCI 40 MG/ML 1 ML VIAL IV SCH ×3 (00:07→11:04)
[2021-01-27] MEDS: HEPARIN SODIUM,PORCINE/PF 5,000 UNIT/0.5 ML SYRINGE SQ SCH ×2 (00:07→07:50)
[2021-01-27] MEDS: HYDROcodone/APAP 10-325MG 1 EACH TAB PO PRN ×3 (00:13→15:01)
[2021-01-27] MEDS: MORPHINE SULFATE 4 MG/ML SYRINGE IV PRN ×2 (01:42→11:04)
[2021-01-27 02:37] VITALS: RESP 16
[2021-01-27] MEDS: MEROPENEM 2 GM in SODIUM CHLORIDE 0.9% 100 ML IVPB SCH ×2 (03:59→11:04)
[2021-01-27] MEDS: SODIUM CHLORIDE 0.9% 1,000 ML IV SCH (04:48)
[2021-01-27] MEDS: LEVOTHYROXINE 50 MCG TAB PO SCH (05:32)
[2021-01-27] MEDS: ALPRAZolam 0.5 MG TAB PO PRN (05:37)
[2021-01-27] MEDS: buPROPion XL 150 MG TAB.ER.24H PO SCH (07:49)
[2021-01-27] MEDS: GABAPENTIN 300 MG CAP PO SCH (07:49)
[2021-01-27] MEDS: PANTOPRAZOLE 40 MG TABLET PO SCH (07:49)
[2021-01-27] MEDS: MULTIVITAMINS, THERA 1 EACH TAB PO SCH (07:49)
[2021-01-27] MEDS: METOPROLOL SUCCINATE (ER) 25 MG TAB.ER.24H PO SCH (07:49)
[2021-01-27 08:08] VITALS: BP 161/85; TEMP 97.9
[2021-01-27] MEDS: IPRATROPIUM-ALBUTEROL 3 ML NEB INHALATION SCH ×2 (09:29→12:25)
[2021-01-27] MEDS: SYMBICORT 80-4.5 MCG INHALER INHALATION SCH (09:29)
[2021-01-27 10:17] LABS: African American GFR (CKD) >90 (>60 ml/min/1.73 sqM); Anion Gap 5 mmol/L; Blood Urea Nitrogen 23 mg/dL (7-17); Calcium 8.9 mg/dL (8.4-10.2); Carbon Dioxide 32 mmol/L (22-30); Chloride 103 mmol/L (98-107); Glucose 167 mg/dL (74-99); Magnesium 2.1 mg/dL (1.6-2.3); Non-African American GFR(CKD) >90 (>60 ml/min/1.73 sqM); Potassium 4.6 mmol/L (3.5-5.1); Sodium 140 mmol/L (137-145)
[2021-01-27 11:08] LABS: HCT 44.8 % (34.0-46.0); HGB 14.3 gm/dL (11.4-16.0); Hypochromasia Slight; MCH 30.1 pg (25.0-35.0); MCV 94.1 fL (80.0-100.0); Mean Platelet Volume 7.6; Platelet Count 794 k/uL (150-450); Poikilocytosis Slight; RBC 4.76 m/uL (3.80-5.40); RDW 14.2 % (11.5-15.5)
--- NOTE | 2021-01-27 12:13 | P.PN ---
Subjective Progress Note Date: 01/27/21 Principal diagnosis: Acute exacerbation of COPD, positive for RSV, and recent pseudomonal tracheobronchitis This is a very pleasant 45-year-old female patient with a known history of chronic obstructive pulmonary disease FEV1 value 74% of predicted, respiratory bronchiolitis associated interstitial lung disease maintained on Trelegy and maintenance prednisone at 5 mg daily, obstructive sleep apnea intolerant to CPAP, obesity, hypothyroidism, chronic back pain, previous bariatric surgical procedure, history of gastric and anastomotic leak, chronic anemia, history of splenectomy. She had also recently undergone bronchoscopy with BAL by Dr. Truong for recurrent pneumonias. She was found to have pseudomonas aeruginosa. She was initiated on a course of Ciprofloxacillin and she essentially failed and was seen by Dr. Truong in our office with worsening shortness of breath on 01/22/2021. At that time she was found to be hypoxic with O2 saturations in the low 80s. She was placed on oxygen at 2 L/m she was referred to the emergency room however she did want to be admitted. He started her on Levaquin 750 mg and Diflucan and was told to go to the ER if symptoms worsened and she presented here yesterday. Chest x-ray reveals patchy interstitial opacities favoring multifocal pneumonia. White count 22.2. Hemoglobin 12.6. Neutrophils 19.0. Sodium 138. Potassium 4.9. Bicarb 24. Creatinine 0.42. Troponins negative 2. Guillen virus not detected. Influenza not detected. She is positive for RSV. She's been initiated and DuoNeb inhalations, Symbicort, IV Solu-Medrol. Heparin for DVT prophylaxis. She is seen on the regular medical floor today in consultation. Awake and alert in no acute distress. She is breathing a bit easier today compared to yesterday. Still with a productive cough. Maintain O2 saturations in the 90s on 3 L/m per nasal cannula. She's been afebrile. Hemodynamically stable. On 01/25/2021 patient is seen in follow-up in medical surgical floor, she seems to be doing better, she reports improvement with her breathing, currently on 3 L of oxygen, and her pulse ox is 94%, she has been afebrile, she remains on meropenem for recent history of positive bronchial alveolar lavage positive for pseudomonas aeruginosa which was resistant to cephalosporins. Patient has been treated with a course of ciprofloxacin and subsequently with Levaquin, she was also positive for RSV during this admission. She is afebrile, hemodynamically she remains stable. Her chest x-ray on admission showed patchy interstitial opacities favoring to represent multifocal pneumonia. Sputum culture has been sent, and is still pending, blood cultures have shown no growth at the 24-hour erasto. Today's labs have been reviewed showing white blood cell count relatively stable at 22.2, hemoglobin is 12.6, electrolytes and renal profile were unrem arkable, postop calcitonin level was negative at 0.04. On 01/26/2021 patient is seen in follow-up on medical surgical floor. Is resting comfortably in bed, she is breathing comfortably, still a bit wheezy, and congested, but overall feeling better, pulse ox on 3 L of oxygen is 93-96%, afebrile, hemodynamically she has been stable, follow-up chest x-ray today showing prominent interstitium, patchy bilateral airspace disease no evident pneumothorax. Patient remains on meropenem for possibility of pseudomonal infection, so far her sputum culture was only positive for Mckenna albicans, blood cultures have been negative, patient is on IV steroids, she was positive for RSV. LEVEL was negative at 0.04, her white blood cell count has increased up to 31.2, hemoglobin is 12.8, her electrolytes were within normal limits, BUN is 20, creatinine 0.5 On the 01/27/2021 patient seen in follow-up on medical surgical floor. She is currently on room air, however with ambulation she did desaturate to 87% and that she qualifies for home oxygen, she is afebrile, hemodynamically she stable, she is feeling much better today, minimal wheezing, occasional cough, no acute events overnight. Her pro-calcitonin level was negative at 0.04, she completed 4 days of meropenem, she's been treated with IV steroids and nebulized bronchodilators, she is clinically improving, and that she is getting ready to be discharged home today. Objective - Vital Signs Vital signs: Vital Signs Temp 97.9 F 01/27/21 08:07 Pulse 100 01/27/21 09:41 Resp 16 01/27/21 08:07 BP 161/85 01/27/21 08:07 Pulse Ox 87 L 01/27/21 10:59 Intake & Output 01/26/21 01/27/21 01/27/21 18:59 06:59 18:59 Intake Total 990 Output Total 600 Balance 390 Intake: Intake, IV Titration 750 Amount Sodium Chloride 0.9% 1, 750 000 ml @ 75 mls/hr IV . [id number] YOLANDA Rx#:[id number] Oral 240 Output: Urine 600 Other: Voiding Method Toilet # Voids 1 2 - Exam GENERAL EXAM: Alert, very pleasant, 45-year-old white female, creatinine 3 L of oxygen and the pulse ox of 94% comfortable in no apparent distress. HEAD: Normocephalic/atraumatic. EYES: Normal reaction of pupils, equal size. Conjunctiva pink, sclera white. NOSE: Clear with pink turbinates. THROAT: No erythema or exudates. NECK: No masses, no JVD, no thyroid enlargement, no adenopathy. CHEST: No chest wall deformity. Symmetrical expansion. LUNGS: Equal air entry with a few scat wheezes CVS: Regular rate and rhythm, normal S1 and S2, no gallops, no murmurs, no rubs ABDOMEN: Soft, nontender. No hepatosplenomegaly, normal bowel sounds, no guarding or rigidity. EXTREMITIES: No clubbing, no edema, no cyanosis, 2+ pulses and upper and lower extremities. MUSCULOSKELETAL: Muscle strength and tone normal. SPINE: No scoliosis or deformity SKIN: No rashes CENTRAL NERVOUS SYSTEM: Alert and oriented -3. No focal deficits, tone is normal in all 4 extremities. PSYCHIATRIC: Alert and oriented -3. Appropriate affect. Intact judgment and insight. - Labs CBC & Chem 7: 01/27/21 09:40 01/27/21 09:40 Labs: Abnormal Lab Results - Last 24 Hours (Table) 01/27/21 01/27/21 Range/Units 09:40 09:40 WBC 28.9 H (3.8-10.6) k/uL Plt Count 794 H (150-450) k/uL Carbon Dioxide 32 H (22-30) mmol/L BUN 23 H (7-17) mg/dL Glucose 167 H (74-99) mg/dL Microbiology - Last 24 Hours (Table) 01/24/21 22:00 Gram Stain - Final Sputum Sputum Culture - Final Mckenna albicans 01/23/21 20:10 Blood Culture - Preliminary Blood No Growth after 72 hours 01/23/21 20:10 Blood Culture - Preliminary Blood No Growth after 72 hours Assessment and Plan Plan: Assessment: #1. Acute hypoxemic respiratory failure secondary to bilateral pneumonia secondary to pseudomonas aeruginosa and complicated by RSV. Sputum culture only showed Mckenna albicans, patient received 4 days of meropenem, clinically improving, is being discharged home today on Levaquin #2. Pseudomonas aeruginosa infection diagnosed by outpatient bronchoscopy and BAL on 01/01/2021. Treated with ciprofloxacin without much improvement, then was started on Levaquin #3. Chronic obstructive lung disease with an FEV1 value 74% of predicted. Trelegy and DuoNeb's in the outpatient setting along with 5 mg of prednisone daily #4. History of respiratory bronchiolitis, smoking-related, associated interstitial lung disease, quit smoking greater than one year ago #5. Obstructive sleep apnea, intolerant to CPAP therapy #6. Obesity with previous bariatric surgery complicated by gastric leak and abdominal abscess #7. Hypothyroidism #8. Chronic back pain #9. Chronic anemia #10 History of splenectomy Plan: Clinical patient continues to improve No fever or chills, vital signs have been stable She is tolerating ambulation She completed 4 days of meropenem Her cultures including sputum and blood cultures have been negative with exception of sputum culture showing Mckenna albicans Patient came in positive for discharge home today and she can complete outpatient course of Levaquin given to her by Dr. Truong and of which she only took one dose She can finish outpatient prednisone taper Outpatient follow-up with Dr. Truong in 7-10 days I performed a history & physical examination of the patient and discussed their management with my nurse practitioner, Kimberly Delatorre. I reviewed the nurse practitioner's note and agree with the documented findings and plan of care. Lung sounds are positive for diffuse wheezes throughout the lung jamil. The findings and the impression was discussed with the patient. I attest to the documentation by the nurse practitioner. Time with Patient: Less than 30
[2021-01-27 12:38] VITALS: PULSE 96
[2021-01-27 12:38] LABS: Lymphocytes # (M) 2.57 k/uL (1.0-4.8); Monocytes # (M) 0.57 k/uL (0-1.0); Neutrophils # (M) 25.74 k/uL (1.3-7.7); Neutrophils % (M) 90 %; Nucleated Red Blood Cells 1 /100 WBC (0-0); Total Cells Counted 200; WBC 28.6 k/uL (3.8-10.6)
--- NOTE | 2021-01-27 13:31 | P.DS ---
Providers Date of admission: 01/23/21 20:40 Expected date of discharge: 01/27/21 Attending physician: Ramona Wray MD Consults: 01/23/21 20:42 Consult Physician Routine Consulting Provider: Bharati Truong Consult Reason/Comments: COPD exacerbation, RSV, CAP, Hypoxic respiratory failure Do you want consulting provider notified?: Yes, Notify in am Primary care physician: [facility] Course: Acute hypoxic respiratory failure, secondary to acute COPD exacerbation Sepsis secondary to pneumonia Lactic acidosis Patient was admitted with acute respiratory failure with hypoxemia secondary to COPD exacerbation, sepsis, and pneumonia. She was started on steroids, nebulizers, and abx. Pulmonary medicine was consulted and recommended broadening her abx to meropenem given bronch + for pseudomonas finding in the outpatient setting in mid December, and failed ciprofloxacin therapy. Patient retained a stable O2 requirement, but exercise tolerance did improve over the course of hospitalization. After 4 days of therapy, patient did remain stable and lung sounds, exercise tolerance improved. Notably, sputum cultures did not grow pseudomonas, but did grow deanrde which likely reflects contamination, but for which she takes fluconazole at home regardless. Chronic respiratory failure appeared to be patient's near baseline, and patient was discharged with oxygen of 3L NC to maintain saturation for COPD. She was also prescribed an additional 6 day course of levofloxacin for pneumonia and a 16 day steroid taper for COPD per pulmonology. I spent 41 minutes coordinating this complex discharge. Assessment: Gen: awake, alert HEENT: normocephalic, atraumatic, good hearing acuity, moist mucous membranes Resp: Diffuse crackles posteriorly, wheezing CVS: good distal perfusion x 4, regular rate and rhythm without murmurs GI: soft, NTTP, ND : no SPT, no CVAT, treviño catheter not present MSK: no pitting edema, no clubbing Neuro: non-focal, moving all extremities Psych: cooperative, euthymic mood Patient Condition at Discharge: Fair Plan - Discharge Summary Discharge Rx Participant: No New Discharge Prescriptions: New predniSONE 0 mg PO DIRECTED 16 Days #40 tab Continue Levothyroxine Sodium [Synthroid] 50 mcg PO DAILY Hydrocodone/Acetaminophen [[place] 10-325] 1 tab PO TID PRN PRN Reason: Pain ALPRAZolam [Xanax] 0.5 mg PO TID PRN PRN Reason: Anxiety Sertraline [Zoloft] 100 mg PO BID Pantoprazole Sodium [Protonix] 40 mg PO DAILY Multivitamins, Thera [Multivitamin (formulary)] 1 tab PO DIRECTED Albuterol Nebulized [Ventolin Nebulized] 2.5 mg INHALATION RT-Q4H PRN PRN Reason: Shortness Of Breath Gabapentin [Neurontin] 300 mg PO BID Zinc Sulfate 220 mg PO DIRECTED Vitamin A [Vitamin A (8,000 Units = 2,400 MCG)] 8,000 unit PO DIRECTED Metoprolol Succinate (ER) [Toprol XL] 12.5 mg PO DAILY Fluticasone/Umeclidin/Vilanter [Trelegy Ellipta 200-62.5-25] 1 puff INHALATION RT-DAILY methocarbamoL [Robaxin] 750 mg PO BID Meclizine [Antivert] 12.5 mg PO BID PRN PRN Reason: Vertigo Fluticasone Nasal [place] [Flonase Nasal [place]] 1 spr EA NOSTRIL BID PRN PRN Reason: Allergy Symptoms Fluconazole [Diflucan] 100 mg PO DAILY Promethazine/Dextromethorphan [Promethazine-Dm 6.25-15 mg/5Ml] 5 ml PO Q6H PRN PRN Reason: Cough Promethazine HCl/Codeine [Promethazine-Codeine Syrup] 5 ml PO Q6H PRN PRN Reason: Cough Cyclobenzaprine [Flexeril] 10 mg PO HS SUMAtriptan SUCCINATE [Imitrex] 50 mg PO DAILY PRN MDD UP TO 9 TIMES A MONTH PRN Reason: MIGRAINE HEADACHE Rimegepant Sulfate [Nurtec Odt] 75 mg PO DAILY PRN MDD 9 TIMES A MONTH PRN Reason: MIGRAINE HEADACHE Ipratropium/Albuterol Sulfate [Combivent Respimat Inhaler] 1 puff INHALATION RT-QID PRN PRN Reason: Shortness Of Breath Botox Injection 1 dose SQ Q90D Montelukast [Singulair] 10 mg PO HS buPROPion HCL [Wellbutrin XL] 150 mg PO DAILY Levofloxacin [Levaquin] 750 mg PO DAILY #6 tab Discontinued predniSONE See Taper PO DAILY Discharge Medication List Levothyroxine Sodium [Synthroid] 50 mcg PO DAILY 01/05/14 [History] Hydrocodone/Acetaminophen [[place] 10-325] 1 tab PO TID PRN 10/17/16 [History] ALPRAZolam [Xanax] 0.5 mg PO TID PRN 11/24/17 [History] Sertraline [Zoloft] 100 mg PO BID 02/23/18 [History] Albuterol Nebulized [Ventolin Nebulized] 2.5 mg INHALATION RT-Q4H PRN 05/28/18 [History] Multivitamins, Thera [Multivitamin (formulary)] 1 tab PO DIRECTED 05/28/18 [History] Pantoprazole Sodium [Protonix] 40 mg PO DAILY 05/28/18 [History] Gabapentin [Neurontin] 300 mg PO BID 12/05/19 [History] Vitamin A [Vitamin A (8,000 Units = 2,400 MCG)] 8,000 unit PO DIRECTED 12/19/19 [History] Zinc Sulfate 220 mg PO DIRECTED 12/19/19 [History] Botox Injection 1 dose SQ Q90D 10/29/20 [History] Cyclobenzaprine [Flexeril] 10 mg PO HS 10/29/20 [History] Ipratropium/Albuterol Sulfate [Combivent Respimat Inhaler] 1 puff INHALATION RT- QID PRN 10/29/20 [History] Metoprolol Succinate (ER) [Toprol XL] 12.5 mg PO DAILY 10/29/20 [History] Rimegepant Sulfate [Nurtec Odt] 75 mg PO DAILY PRN MDD 9 TIMES A MONTH 10/29/20 [History] SUMAtriptan SUCCINATE [Imitrex] 50 mg PO DAILY PRN MDD UP TO 9 TIMES A MONTH 10/29/20 [History] Fluticasone/Umeclidin/Vilanter [Trelegy Ellipta 200-62.5-25] 1 puff INHALATION RT-DAILY 12/31/20 [History] methocarbamoL [Robaxin] 750 mg PO BID 01/01/21 [History] Fluconazole [Diflucan] 100 mg PO DAILY 01/23/21 [History] Fluticasone Nasal [place] [Flonase Nasal [place]] 1 spr EA NOSTRIL BID PRN 01/23/21 [History] Meclizine [Antivert] 12.5 mg PO BID PRN 01/23/21 [History] Montelukast [Singulair] 10 mg PO HS 01/23/21 [History] Promethazine HCl/Codeine [Promethazine-Codeine Syrup] 5 ml PO Q6H PRN 01/23/21 [History] Promethazine/Dextromethorphan [Promethazine-Dm 6.25-15 mg/5Ml] 5 ml PO Q6H PRN 01/23/21 [History] buPROPion HCL [Wellbutrin XL] 150 mg PO DAILY 01/23/21 [History] Levofloxacin [Levaquin] 750 mg PO DAILY #6 tab 01/27/21 [Rx] predniSONE 0 mg PO DIRECTED 16 Days #40 tab 01/27/21 [Rx] Follow up Appointment(s)/Referral(s): Zachariah Carlisle MD [Primary Care Provider] - (At [place] office. [phone]. Office busy Please call to make appointment ) Bharati Truong MD [STAFF PHYSICIAN] - 02/05/21 3:45 pm Patient Instructions/Handouts: Respiratory Syncytial Virus (DC), Community Acquired Pneumonia (DC) Discharge Disposition: HOME SELF-CARE
== END 2021-01-27 15:21 | disposition home or self-care (01) | DRG 871 ==
LOC: EC 15:04 → 4SSUR 20:40
PROVIDERS: ADMIT Internal Medicine; ATTEND Internal Medicine
DX: A41.52 Sepsis due to Pseudomonas (principal); J15.1 Pneumonia due to Pseudomonas; J96.21 Acute and chronic respiratory failure with hypoxia; E87.2 Acidosis; J44.0 Chronic obstructive pulmonary disease with (acute) lower respiratory infection; J44.1 Chronic obstructive pulmonary disease with (acute) exacerbation; B97.4 Respiratory syncytial virus as the cause of diseases classified elsewhere; D64.9 Anemia, unspecified; D47.3 Essential (hemorrhagic) thrombocythemia; E03.9 Hypothyroidism, unspecified; E66.9 Obesity, unspecified; E86.0 Dehydration; F41.9 Anxiety disorder, unspecified; G40.909 Epilepsy, unspecified, not intractable, without status epilepticus; G47.33 Obstructive sleep apnea (adult) (pediatric); G89.29 Other chronic pain; I10 Essential (primary) hypertension; I44.7 Left bundle-branch block, unspecified; Z20.822 Contact with and (suspected) exposure to COVID-19; Z79.52 Long term (current) use of systemic steroids; Z79.890 Hormone replacement therapy; Z79.899 Other long term (current) drug therapy; Z80.3 Family history of malignant neoplasm of breast; Z82.49 Family history of ischemic heart disease and other diseases of the circulatory system; Z82.5 Family history of asthma and other chronic lower respiratory diseases; Z87.01 Personal history of pneumonia (recurrent); Z87.891 Personal history of nicotine dependence; Z90.81 Acquired absence of spleen; Z98.84 Bariatric surgery status; Z68.30 Body mass index [BMI] 30.0-30.9, adult; Z88.8 Allergy status to other drugs, medicaments and biological substances; Z91.030 Bee allergy status
CPT/HCPCS: 36415; 71045; 71046; 80048; 80053; 83605; 83735; 84145; 84484; 84703; 85025; 85610; 85730; 87040; 87070; 87205; 87636; 93005; 94640; 94760; 96365; 96375; 99285

== ENCOUNTER → 2021-06-03 | Outpatient (CLI) | payer BC, MEDICARE ==
--- NOTE | 2021-06-03 15:23 | P.BASOAP ---
Subjective Progress Note Date: 06/03/21 DATE OF SERVICE: 06/03/2021 CHIEF COMPLAINT: Status post gastric bypass HISTORY OF PRESENT ILLNESS: Laura Rangel is a 44-year-old female status post sleeve gastrectomy, 03/06/2018 converted to gastric bypass at [facility] in 2019. She is 3 year out. She has been hospitalized. She had RSV and she had to b e on steroids for 7 months with 40 pound weight gain. She is looking into skin removal. She incidentally has gallstones. She has persistent leukocytosis not previously evaluated by a instruments sales representative. At height of 5 feet 1 inches, her ideal body weight is 131 pounds. Her highest weight was 249 pounds, BMI 47.1. Her lowest weight was 107 pounds, BMI 20.2. She comes in 147 pounds from 107 pounds, 2 years ago. Her body mass index is 27.8. Lifetime weight loss is 102 pounds. Percent excess weight loss, lifetime is 87%. PAST MEDICAL HISTORY: 1. Morbid obesity due to excess calories 2. Body mass index of 47.1, initial 3. Hypothyroidism 4. Chronic obstructive pulmonary disease 5. Generalized anxiety disorder 6. Gastroesophageal reflux disease 7. Migraines 8. Neuropathy 9. Chronic back pain 10. Hypertensive heart disease 11. Obstructive sleep apnea 12. Seizure disorder 13. Endometriosis 14. Plantar fasciitis 15. Motion sickness 16. Depressive disorder 17. Leukocytosis PAST SURGICAL HISTORY: 1. Sleeve gastrectomy with leak 2. Tubal ligation 3. LEEP procedure 4. Thoracoscopy with wedge resection HOME MEDICATIONS: Home Medications Medication Instructions Recorded Confirmed Levothyroxine Sodium [Synthroid] 50 mcg PO DAILY 01/05/14 08/21/21 Hydrocodone/Acetaminophen [[place] 1 tab PO TID PRN 10/17/16 08/21/21 10-325] ALPRAZolam [Xanax] 0.5 mg PO TID PRN 11/24/17 08/21/21 Albuterol Nebulized [Ventolin 2.5 mg INHALATION RT-Q4H PRN 05/28/18 08/21/21 Nebulized] Multivitamins, Thera [Multivitamin 1 tab PO DAILY 05/28/18 08/21/21 (formulary)] Pantoprazole Sodium [Protonix] 40 mg PO DAILY 05/28/18 08/21/21 Gabapentin [Neurontin] 300 mg PO BID 12/05/19 08/21/21 Vitamin A [Vitamin A (8,000 Units 8,000 unit PO DAILY 12/19/19 08/21/21 = 2,400 MCG)] Zinc Sulfate 220 mg PO DAILY 12/19/19 08/21/21 Cyclobenzaprine [Flexeril] 10 mg PO DAILY PRN 10/29/20 08/21/21 Metoprolol Succinate (ER) [Toprol 12.5 mg PO DAILY 10/29/20 08/21/21 XL] methocarbamoL [Robaxin] 750 mg PO BID 01/01/21 08/21/21 Meclizine [Antivert] 12.5 mg PO BID PRN 01/23/21 08/21/21 Promethazine/Dextromethorphan 5 ml PO Q6H PRN 01/23/21 08/21/21 [Promethazine-Dm 6.25-15 mg/5Ml] buPROPion HCL [Wellbutrin XL] 150 mg PO DAILY 01/23/21 08/21/21 Albuterol Inhaler [Ventolin Hfa 2 puff INHALATION RT-QID PRN 08/21/21 08/21/21 Inhaler] Atogepant [Qulipta] 60 mg PO DIRECTED PRN 08/21/21 08/21/21 Butalb/Acetaminophen/Caffeine 1 - 2 cap PO Q4HR PRN 08/21/21 08/21/21 [Fioricet 50-300-40 mg Capsule] Ubrogepant [Ubrelvy] 100 mg PO DIRECTED PRN 08/21/21 08/21/21 predniSONE 10 mg PO DAILY 08/21/21 08/21/21 ALLERGIES: Allergies Allergy/AdvReac Type Severity Reaction Status Date / Time bee venom protein (honey bee) Allergy SWELLING , Verified 08/21/21 10:36 AND ITCHING nitrofurantoin Allergy Rash/Hives Verified 08/21/21 10:36 [From Macrobid] nitrofurantoin Allergy Rash/Hives Verified 08/21/21 10:36 macrocrystalline [From Macrobid] moxifloxacin [From Avelox] AdvReac Nausea & Verified 08/21/21 10:36 Vomiting seasonal allergies AdvReac Unknown Uncoded 08/21/21 10:36 SOCIAL HISTORY: Past tobacco use. FAMILY HISTORY: No family history of ulcerative colitis disease or Crohn's disease. Family history of morbid obesity. No lupus in the family. No reports of stomach or esophageal cancer. REVIEW OF ORGAN SYSTEMS: CONSTITUTIONAL: At height of 5 feet 1 inches, her ideal body weight is 131 pounds. Her highest weight was 249 pounds, BMI 47.1. HEENT: Denies any active troubles with vision or hearing. Has troubles with swallowing. ENDOCRINE: No current diabetes. Has hypothyroidism. Chronic steroids. CARDIOVASCULAR: Past reports of palpitations or heart attacks or chest pain. RESPIRATORY: Has daytime somnolence. Has asthma. History of RSV infection GASTROINTESTINAL: Denies any bright red blood per rectum. No diarrhea. No co nstipation. MUSCULOSKELETAL: Has lower back pain and joint pain. Has osteoarthritis of the knees. NEURO: Past headaches. Past seizure disorders. PSYCH: Has depression. No suicidal ideation. RHEUMATOLOGIC: No lupus. No rheumatoid arthritis. HEMATOLOGIC: Denies any abnormal bleeding or bruising. No personal history of DVTs. History of intra-abdominal infection. SKIN: No rash. No skin cancer. PHYSICAL EXAM: VITAL SIGNS: Height 5 foot 1 inches, weight 147 pounds. BMI 27.8 Vital Signs Temp 98.8 F 06/03/21 15:24 Pulse 97 06/03/21 15:24 Resp 16 06/03/21 15:24 BP 134/84 06/03/21 15:24 Pulse Ox GENERAL: Well-developed in no acute distress. HEENT: No scleral icterus. Extraocular movements grossly intact. Hears conversational speech. No nasal drainage. NECK: Supple without lymphadenopathy. CHEST: Nonlabored respirations with equal bilateral excursions. CARDIOVASCULAR: Regular rate and regular rhythm. Distal 2+ pulses. ABDOMEN: Obese, soft, nontender, nondistended. Mild panniculitis. Grade 3 panniculosis MUSCULOSKELETAL: No clubbing, cyanosis. NEURO: No focal or lateralizing signs. Cranial nerves 2 through 12 grossly within normal limits. PSYCH: Appropriate affect. Alert and oriented to person, place and time. SKIN: Good skin turgor. Well perfused. ASSESSMENT: 1. Morbid obesity due to excess calories 2. Body mass index of 47.1, initial to 27.8 3. Hypothyroidism 4. Chronic obstructive pulmonary disease 5. Generalized anxiety disorder 6. Gastroesophageal reflux disease 7. Migraines 8. Neuropathy 9. Chronic back pain 10. Hypertensive heart disease 11. Obstructive sleep apnea 12. Seizure disorder 13. Endometriosis 14. Plantar fasciitis 15. Motion sickness 16. Status post sleeve gastrectomy with leak 17. History of intra-abdominal infection 18. Zinc deficiency 19. Vitamin A deficiency 20. Inadequate protein intake 21. Weight gain follow bariatric procedure 22. Panniculitis 23. Gallstones PLAN: 1. She is looking into skin removal. Plastic surgeon non-insurance route described. Panniculectomy guidelines reviewed. Options for panniculectomy. 2. Recommend client support representative referral for panniculitis. 3. She has gallstones. Recommend cholecystectomy. She is high risk and explained due to multiple abdominal surgeries. 4. Recommend bariatric labs. 5. Referral to instruments sales representative for persistent elevated WBC and leukocytosis. Assessment/Plan Plan: Date: Initial Weight: 109.769 kg Initial BMI: Current Weight: Current BMI: Type of Surgery: Total Volume in Band: Previous Volume: Volume Removed: Volume Added: Band Size:
[2021-06-03 15:28] VITALS: BP 134/84; PULSE 97; RESP 16; TEMP 98.8; BMI 27.8
== END ==
LOC: BARWHC3 14:14
PROVIDERS: ATTEND Surgery Plastic and Reconstructive Surgery
DX: E66.01 Morbid (severe) obesity due to excess calories (principal); Z68.27 Body mass index [BMI] 27.0-27.9, adult; E03.9 Hypothyroidism, unspecified; J44.9 Chronic obstructive pulmonary disease, unspecified; F41.1 Generalized anxiety disorder; K21.9 Gastro-esophageal reflux disease without esophagitis; G43.909 Migraine, unspecified, not intractable, without status migrainosus; G62.9 Polyneuropathy, unspecified; M54.50 Low back pain, unspecified; G89.29 Other chronic pain; I11.9 Hypertensive heart disease without heart failure; G47.33 Obstructive sleep apnea (adult) (pediatric); G40.909 Epilepsy, unspecified, not intractable, without status epilepticus; N80.9 Endometriosis, unspecified; M72.2 Plantar fascial fibromatosis; T75.3XXA Motion sickness, initial encounter; Z98.84 Bariatric surgery status; E60 Dietary zinc deficiency; E50.9 Vitamin A deficiency, unspecified; Z91.030 Bee allergy status; Z91.048 Other nonmedicinal substance allergy status; Z88.1 Allergy status to other antibiotic agents; Z79.51 Long term (current) use of inhaled steroids
CPT/HCPCS: 99211

== ENCOUNTER → 2021-09-08 | Outpatient (CLI) | payer BC, MEDICARE ==
[2021-09-10 14:50] LABS: IgG - CSF 1.9 mg/dL (0.0 - 3.4); IgG/Albumin Index (CSF) 0.55 (0.00 - 0.77); Immunoglobulin G 930 mg/dL (700 - 1600)
== END | disposition home or self-care (01) ==
LOC: LABWHC1 08:30
PROVIDERS: ATTEND Nurse Practitioner Family
DX: R90.82 White matter disease, unspecified (principal)
CPT/HCPCS: 36415; 82040; 82042; 82784; 83916

== ENCOUNTER → 2021-09-10 | Outpatient (CLI) | payer BC, MEDICARE ==
[2021-09-10 23:31] LABS: HCT 45.7 % (37.2-46.3); HGB 14.7 g/dL (12.0-15.0); MCH 31.4 pg (27.0-32.0); MCHC 32.2 g/dL (32.0-37.0); MCV 97.6 fL (80.0-97.0); Mean Platelet Volume 9.8 fL (9.5-12.2); NRBC Per 100 WBC 0 /100 WBCS (0.0-0.0); Platelet Count 406 X 10*3/uL (140-440); RBC 4.68 X 10*6/uL (4.10-5.20); WBC 18.33 X 10*3/uL (4.50-10.00)
[2021-09-11 04:05] LABS: ALT 24 U/L (8-44); AST 28 U/L (13-35); African American GFR (CKD) 116.3 (60.0-200.0); Albumin 4.3 g/dL (3.8-4.9); Albumin/Globulin Ratio 1.37 (1.60-3.17); Alkaline Phosphatase 95 U/L (41-126); BUN/Creat Ratio 18.96 Ratio (12.00-20.00); Blood Urea Nitrogen 13.5 mg/dL (9.0-27.0); Calcium 9.5 mg/dL (8.7-10.3); Chloride 104 mmol/L (96-109); Chol/HDL Ratio 3.08 Ratio; Globulin 3.1 g/dL (1.6-3.3); Glucose 87 mg/dL (70-110); LDL Cholesterol,Calculated 112.1 mg/dL (0.0-131.0); Magnesium 2.1 mg/dL (1.5-2.4); Non-African American GFR(CKD) 100.4 (60.0-200.0); Potassium 4.7 mmol/L (3.5-5.5); Sodium 143 mmol/L (135-145); Total Protein 7.4 g/dL (6.2-8.2); VLDL Calculation 19.58 mg/dL (5.00-40.00)
== END | disposition home or self-care (01) ==
LOC: LABWHC1 17:31
PROVIDERS: ATTEND Nurse Practitioner Adult Health
DX: I10 Essential (primary) hypertension (principal); E78.5 Hyperlipidemia, unspecified; I49.3 Ventricular premature depolarization
CPT/HCPCS: 36415; 80053; 80061; 83735; 84443; 85027

== ENCOUNTER → 2021-09-22 | Outpatient (CLI) | payer BC, MEDICARE ==
--- NOTE | 2021-09-24 17:59 | MM ---
Reason for Exam: Screening (asymptomatic). Last mammogram was performed 3 year(s) and 10 month(s) ago. Patient History: Menarche at age 11. First Full-Term at age 14. Paternal aunt had breast cancer, age 55. Maternal cousin had breast cancer, age 45. Mother had breast cancer, age 69. Risk Values: Cassie 5 year model risk: 1.7%. NCI Lifetime model risk: 16.5%. Prior Study Comparison: 09/09/2011 Bilateral Screening Mammogram, [facility]. 11/21/2017 Bilateral Screening Mammogram, [facility]. Tissue Density: There are scattered fibroglandular densities. Findings: Analyzed By CAD. There is a focal asymmetric density in the outer mid right breast. This is 8 cm of the nipple. Additional compression view of this area is recommended as well as a standard right mediolateral view. A metallic foreign bodies in the outer right breast. Overall Assessment: Incomplete: need additional imaging evaluation, BI-RAD 0 Management: Diagnostic Mammogram of the right breast. A negative mammogram report should not preclude additional follow up of suspicious palpable abnormalities. Patient should continue monthly self breast exam. A clinical breast exam by your physician is recommended on an annual basis and results should be correlated with mammographic findings. Electronically signed and approved by: Jose Chapin D.O. Radiologis
== END | disposition home or self-care (01) ==
LOC: RADMAMWWP 14:33
PROVIDERS: ATTEND Family Medicine
DX: Z12.31 Encounter for screening mammogram for malignant neoplasm of breast (principal); Z80.3 Family history of malignant neoplasm of breast
CPT/HCPCS: 77067

== ENCOUNTER → 2021-09-29 | Outpatient (CLI) | payer BC, MEDICARE ==
--- NOTE | 2021-10-01 08:11 | MM ---
Reason for Exam: Additional evaluation requested from abnormal screening. Last screening mammogram was performed less than 1 month ago. Patient History: Menarche at age 11. First Full-Term at age 14. Postmenopausal. Paternal aunt had breast cancer, age 55. Maternal cousin had breast cancer, age 45. Mother had breast cancer, age 69. Last menstrual period: 09/16/2020 Risk Values: Cassie 5 year model risk: 1.7%. NCI Lifetime model risk: 16.5%. Prior Study Comparison: 09/09/2011 Bilateral Screening Mammogram, [facility]. 11/21/2017 Bilateral Screening Mammogram, [facility]. 09/22/2021 Bilateral MG screening mammo w CAD, [facility]. Tissue Density: Right: There are scattered fibroglandular densities. Findings: Analyzed By CAD. The area of asymmetric density laterally in the right breast, middle depth disperses on additional views. Findings compatible with superimposition shadow. No underlying mass or other suspicious abnormality is seen. Incidentally, we note a chronically retained metal skin staple far posteriorly and laterally. Clinically correlate. Overall Assessment: Benign, BI-RAD 2 Management: Screening Mammogram of both breasts in 1 year. 1. Return to routine annual screening mammograms both breasts. 2. Chronically retained metal skin staple far posteriorly and laterally. Correlate as to if this can be removed. 3. Patient should continue monthly self breast exams. 4. This exam should not preclude additional follow-up of suspicious palpable abnormalities. Electronically signed and approved by: Agusto Stout M.D. Radiologist
== END | disposition home or self-care (01) ==
LOC: RADMAMWWP 10:35
PROVIDERS: ATTEND Family Medicine
DX: R92.8 Other abnormal and inconclusive findings on diagnostic imaging of breast (principal); Z78.0 Asymptomatic menopausal state; Z80.3 Family history of malignant neoplasm of breast
CPT/HCPCS: 77061; 77065

== ENCOUNTER → 2021-10-21 | Outpatient (CLI) | payer BC, MEDICARE ==
[2021-10-21 18:19] LABS: Basophils # (A) 0.18 X 10*3/uL (0.00-0.10); Basophils % (A) 1.3 %; Eosinophils # (A) 0.28 X 10*3/uL (0.04-0.35); HCT 49.2 % (37.2-46.3); HGB 16.2 g/dL (12.0-15.0); Immature Grans, Automated 2.3 %; Lymphocytes # (A) 0.79 X 10*3/uL (0.90-5.00); Lymphocytes % (A) 5.6 %; MCH 32.5 pg (27.0-32.0); MCHC 32.9 g/dL (32.0-37.0); MCV 98.6 fL (80.0-97.0); Mean Platelet Volume 10.1 fL (9.5-12.2); Monocytes # (A) 1.18 X 10*3/uL (0.20-1.00); Monocytes % (A) 8.4 %; NRBC Per 100 WBC 0.1 /100 WBCS (0.0-0.0); Neutrophils # (A) 11.31 X 10*3/uL (1.80-7.70); Neutrophils % (A) 80.4 %; Platelet Count 510 X 10*3/uL (140-440); RBC 4.99 X 10*6/uL (4.10-5.20); RDW 16.5 % (11.5-14.5); WBC 14.07 X 10*3/uL (4.50-10.00)
[2021-10-21 20:34] LABS: ALT 33 U/L (8-44); AST 36 U/L (13-35); African American GFR (CKD) 125.8 (60.0-200.0); Albumin 4.2 g/dL (3.8-4.9); Albumin/Globulin Ratio 1.67 (1.60-3.17); Alkaline Phosphatase 104 U/L (41-126); BUN/Creat Ratio 19.05 Ratio (12.00-20.00); Blood Urea Nitrogen 11.2 mg/dL (9.0-27.0); Calcium 9.1 mg/dL (8.7-10.3); Carbon Dioxide 19.8 mmol/L (20.0-27.5); Chloride 104 mmol/L (96-109); Chol/HDL Ratio 3.41 Ratio; Globulin 2.5 g/dL (1.6-3.3); Glucose 125 mg/dL (70-110); LDL Cholesterol,Calculated 90.6 mg/dL (0.0-131.0); Non-African American GFR(CKD) 108.5 (60.0-200.0); Potassium 4.1 mmol/L (3.5-5.5); Sodium 139 mmol/L (135-145); Total Protein 6.7 g/dL (6.2-8.2)
== END | disposition home or self-care (01) ==
LOC: LABWHC1 12:01
PROVIDERS: ATTEND Psychiatry & Neurology Neurology
DX: Z01.812 Encounter for preprocedural laboratory examination (principal); G35 Multiple sclerosis; Z13.220 Encounter for screening for lipoid disorders; R53.83 Other fatigue
CPT/HCPCS: 36415; 80053; 80061; 82306; 82607; 82728; 82746; 84439; 84443; 85025; 86704

== ENCOUNTER 2022-01-03 13:51 | Observation (INO) | payer BC, MEDICARE ==
--- NOTE | 2022-01-03 15:30 | XR ---
EXAMINATION TYPE: XR KUB DATE OF EXAM: 01/03/2022 COMPARISON: NONE HISTORY: Left lower quadrant pain TECHNIQUE: 2 views upright FINDINGS: There is numerous surgical clips in the left side of the abdomen. No evidence of intestinal obstruction or pneumoperitoneum. Fecal pattern is normal. No sign of a mass. Lung bases are clear. IMPRESSION: Acute abdomen.
--- NOTE | 2022-01-03 16:43 | ED ---
Abdominal Pain HPI - General Chief Complaint: Abdominal Pain Stated Complaint: right side pain Time Seen by Provider: 01/03/22 16:40 Source: patient Mode of arrival: ambulatory Limitations: no limitations - History of Present Illness Initial Comments: 46-year-old female with past medical history of perforated gastric sleeve, follow-up Sharona-en-Y, splenectomy who presents to the emergency department with left lower quadrant abdominal pain. States that the pain started 3 days ago. Described as a sharp shooting intermittent pain which has become constant. Denies dysuria, hematuria or difficulty voiding. No changes in her bowel habits to include diarrhea, consultation, black or bloody stools. No vaginal bleeding or discharge. Admits to nausea without vomiting. No fevers or chills. No other alleviating, precipitating or modifying factors - Related Data Home Medications Medication Instructions Recorded Confirmed Levothyroxine Sodium [Synthroid] 50 mcg PO DAILY 01/05/14 01/07/22 ALPRAZolam [Xanax] 0.5 mg PO TID PRN 11/24/17 01/07/22 Albuterol Nebulized [Ventolin 2.5 mg INHALATION RT-Q4H PRN 05/28/18 01/07/22 Nebulized] Multivitamins, Thera [Multivitamin 1 tab PO DAILY 05/28/18 01/07/22 (formulary)] Pantoprazole Sodium [Protonix] 40 mg PO DAILY 05/28/18 01/07/22 Gabapentin [Neurontin] 300 mg PO BID 12/05/19 01/07/22 Vitamin A [Vitamin A (8,000 Units 8,000 unit PO DAILY 12/19/19 01/07/22 = 2,400 MCG)] Zinc Sulfate 220 mg PO DAILY 12/19/19 01/07/22 Cyclobenzaprine [Flexeril] 10 mg PO W/SUPPER PRN 10/29/20 01/07/22 Metoprolol Succinate (ER) [Toprol 12.5 mg PO DAILY 10/29/20 01/07/22 XL] methocarbamoL [Robaxin-750] 750 mg PO BID 01/01/21 01/07/22 Meclizine [Antivert] 12.5 mg PO BID PRN 01/23/21 01/07/22 buPROPion HCL [Wellbutrin XL] 150 mg PO BID 01/23/21 01/07/22 Albuterol Inhaler [Ventolin Hfa 2 puff INHALATION RT-QID PRN 08/21/21 01/07/22 Inhaler] Atogepant [Qulipta] 60 mg PO DAILY 08/21/21 01/07/22 Ubrogepant [Ubrelvy] 100 mg PO DAILY PRN 08/21/21 01/07/22 predniSONE 10 mg PO DAILY 08/21/21 01/07/22 Pravastatin Sodium [Pravachol] 20 mg PO DAILY 01/03/22 01/07/22 Promethazine HCl [Phenergan Syrup] 6.25 mg PO HS PRN 01/03/22 01/07/22 HYDROcodone/APAP 10-325MG [[place]opax[place] 1 tab PO TID 01/07/22 01/07/22 10-325] Previous Rx's Medication Instructions Recorded Celecoxib 400 mg PO QAM PRN #15 capsule 01/07/22 Famotidine 40 mg PO QAM #15 tablet 01/07/22 HYDROcodone/APAP 10-325MG [[place]opax[place] 1 tab PO Q6HR PRN 3 Days #12 tab 01/07/22 10-325] predniSONE [Deltasone] 20 mg PO BID PRN #10 tab 01/07/22 Allergies Allergy/AdvReac Type Severity Reaction Status Date / Time bee venom protein (honey bee) Allergy SWELLING , Verified 01/10/22 12:57 AND ITCHING nitrofurantoin Allergy Rash/Hives Verified 01/10/22 12:57 [From Macrobid] nitrofurantoin Allergy Rash/Hives Verified 01/10/22 12:57 macrocrystalline [From Macrobid] moxifloxacin [From Avelox] AdvReac Nausea & Verified 01/10/22 12:57 Vomiting seasonal allergies Allergy Unknown Uncoded 01/10/22 12:57 Review of Systems ROS Statement: Those systems with pertinent positive or pertinent negative responses have been documented in the HPI. ROS Other: All systems not noted in ROS Statement are negative. Past Medical History Past Medical History: Asthma, COPD, GERD/Reflux, Hypertension, Musculoskeletal Disorder, Neurologic Disorder, Sleep Apnea/CPAP/BIPAP, Thyroid Disorder Additional Past Medical History / Comment(s): smoking-related interstitial lung disease, doesn't use CPAP, history of seizure at the age of 16 related to med. to stop breast milk, endometriosis, chronic back pain, plantar fasciitis, hx. of Achilles tendinitis, probably antibiotic induced. She also has history of hypothyroidism, ALLERGIC rhinitis, migraines, current steroids for wheezing & cough, uses oxygen prn, recent iron infusion History of Any Multi-Drug Resistant Organisms: None Reported Past Surgical History: Bariatric Surgery, Tubal Ligation, Uterine Ablation Additional Past Surgical History / Comment(s): LEEP PROCEDURE X 2, EGD, BACK INJECTIONS FOR PAIN. The patient has also undergone thoracic/thoracoscopic wedge biopsy of the right lung. 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; R and Y bypass at [facility] 2019,TRACHEOTOMY-RESOLVED Past Anesthesia/Blood Transfusion Reactions: Motion Sickness Additional Past Anesthesia/Blood Transfusion Reaction / Comment(s): no problem w/blood transfusion Past Psychological History: Anxiety Smoking Status: Former smoker Past Alcohol Use History: None Reported Past Drug Use History: None Reported - Past Family History Sister(s) Family Medical History: Cancer Mother Family Medical History: Cancer Additional Family Medical History / Comment(s): breast cancer Father Family Medical History: COPD, CVA/TIA, Myocardial Infarction ([place]) Additional Family Medical History / Comment(s): HEART PROBLEMS, AT AGE 64 General Exam Limitations: no limitations General appearance: alert, in no apparent distress Head exam: Present: atraumatic, normocephalic, normal inspection Eye exam: Present: normal appearance, PERRL, EOMI. Absent: scleral icterus, conjunctival injection, periorbital swelling ENT exam: Present: normal exam, mucous membranes moist Neck exam: Present: normal inspection. Absent: tenderness, meningismus, lymphadenopathy Respiratory exam: Present: normal lung sounds bilaterally. Absent: respiratory distress, wheezes, rales, rhonchi, stridor Cardiovascular Exam: Present: regular rate, normal rhythm, normal heart sounds. Absent: systolic murmur, diastolic murmur, rubs, gallop, clicks GI/Abdominal exam: Present: soft, tenderness (Left lower quadrant pain), normal bowel sounds. Absent: distended, guarding, rebound, rigid Extremities exam: Present: normal inspection, full ROM, normal capillary refill. Absent: tenderness, pedal edema, joint swelling, calf tenderness Back exam: Present: normal inspection Neurological exam: Present: alert, oriented X3, CN II-XII intact Psychiatric exam: Present: normal affect, normal mood Skin exam: Present: warm, dry, intact, normal color. Absent: rash Course Vital Signs 01/03/22 01/03/22 01/03/22 14:46 17:05 18:59 Temperature 98 F 98.0 F Pulse Rate 100 80 83 Respiratory 18 18 18 Rate Blood Pressure 121/78 124/80 127/79 O2 Sat by Pulse 96 95 94 L Oximetry Medical Decision Making - Medical Decision Making Upon arrival the patient was placed into room 19. A thorough history and physical exam performed and patient was given 1 mg of Dilaudid for pain control and 4 mg of Zofran for nausea. Laboratory studies are conducted and reviewed. White count 19.3. CT of abdomen and pelvis demonstrates no acute findings. Patient is covered with Zosyn for her leukocytosis. Did recommend overnight observation for surgery consultation. Patient does follow with Dr. Montes De Oca. I spoke with Dr. Wray who agreed to the admission. - Lab Data Result diagrams: 01/04/22 05:35 01/04/22 05:35 Lab Results 01/03/22 01/03/22 01/03/22 Range/Units 16:26 16:26 16:26 WBC 19.3 H (3.8-10.6) k/uL RBC 4.87 (3.80-5.40) m/uL Hgb 16.2 H (11.4-16.0) gm/dL Hct 49.8 H (34.0-46.0) % MCV 102.2 H (80.0-100.0) fL MCH 33.3 (25.0-35.0) pg MCHC 32.6 (31.0-37.0) g/dL RDW 12.3 (11.5-15.5) % Plt Count 548 H (150-450) k/uL Plt Count Comment MPV 6.9 Immature Gran % (Auto) % Absolute Nucleated RBC (0.00-0.00) X 10*3/uL Neutrophils % 75 % Lymphocytes % 15 % Monocytes % 5 % Eosinophils % 3 % Basophils % 1 % Immature Gran # (0.00-0.04) X 10*3/uL Neutrophils # 14.4 H (1.3-7.7) k/uL Lymphocytes # 2.9 (1.0-4.8) k/uL Monocytes # 1.0 (0-1.0) k/uL Eosinophils # 0.6 (0-0.7) k/uL Basophils # 0.2 (0-0.2) k/uL NRBC/100 WBC Diff (0.0-0.0) /100 WBCS Macrocytosis Slight Macrocytosis (manual) Sodium 136 L (137-145) mmol/L Potassium 4.3 (3.5-5.1) mmol/L Chloride 103 (98-107) mmol/L Carbon Dioxide 21 L (22-30) mmol/L Anion Gap 12 mmol/L BUN 12 (7-17) mg/dL Creatinine 0.49 L (0.52-1.04) mg/dL Est GFR (CKD-EPI)AfAm >90 (>60 ml/min/1.73 sqM) Est GFR (CKD-EPI)NonAf >90 (>60 ml/min/1.73 sqM) BUN/Creatinine Ratio (12.00-20.00) Ratio Glucose 115 H (74-99) mg/dL Plasma Lactic Acid Mgiuel Angel (0.7-2.0) mmol/L Calcium 9.6 (8.4-10.2) mg/dL Total Bilirubin 0.5 (0.2-1.3) mg/dL AST 29 (14-36) U/L ALT 22 (4-34) U/L Alkaline Phosphatase 96 (38-126) U/L C-Reactive Protein (<1.0) mg/dL Total Protein 7.3 (6.3-8.2) g/dL Albumin 4.3 (3.5-5.0) g/dL Amylase 61 (30-110) U/L Lipase 61 (23-300) U/L Urine Color Yellow Urine Appearance Clear (Clear) Urine pH 6.0 (5.0-8.0) Ur Specific [place] 1.018 (1.001-1.035) Urine Protein Negative (Negative) Urine Glucose (UA) Negative (Negative) Urine Ketones Negative (Negative) Urine Blood Negative (Negative) Urine Nitrite Negative (Negative) Urine Bilirubin Negative (Negative) Urine Urobilinogen <2.0 (<2.0) mg/dL Ur Leukocyte Esterase Negative (Negative) 01/03/22 01/04/22 01/04/22 Range/Units 16:26 05:35 05:35 WBC 16.79 H (3.8-10.6) k/uL RBC 4.24 (3.80-5.40) m/uL Hgb 14.3 (11.4-16.0) gm/dL Hct 44.1 (34.0-46.0) % MCV 104.0 H (80.0-100.0) fL MCH 33.7 H (25.0-35.0) pg MCHC 32.4 (31.0-37.0) g/dL RDW 13.4 (11.5-15.5) % Plt Count 545 H (150-450) k/uL Plt Count Comment INCREASED A MPV 9.2 L Immature Gran % (Auto) 3.8 % Absolute Nucleated RBC 0 (0.00-0.00) X 10*3/uL Neutrophils % 61.6 % Lymphocytes % 19.7 % Monocytes % 9.4 % Eosinophils % 3.9 % Basophils % 1.6 % Immature Gran # 0.63 H (0.00-0.04) X 10*3/uL Neutrophils # 10.36 H (1.3-7.7) k/uL Lymphocytes # 3.31 (1.0-4.8) k/uL Monocytes # 1.57 H (0-1.0) k/uL Eosinophils # 0.65 H (0-0.7) k/uL Basophils # 0.27 H (0-0.2) k/uL NRBC/100 WBC Diff 0 (0.0-0.0) /100 WBCS Macrocytosis Macrocytosis (manual) 2+ Sodium 140 (137-145) mmol/L Potassium 4.7 (3.5-5.1) mmol/L Chloride 105 (98-107) mmol/L Carbon Dioxide 23.0 (22-30) mmol/L Anion Gap 12.00 mmol/L BUN 10.6 (7-17) mg/dL Creatinine 0.7 (0.52-1.04) mg/dL Est GFR (CKD-EPI)AfAm 118.7 (>60 ml/min/1.73 sqM) Est GFR (CKD-EPI)NonAf 102.5 (>60 ml/min/1.73 sqM) BUN/Creatinine Ratio 15.14 (12.00-20.00) Ratio Glucose 114 H (74-99) mg/dL Plasma Lactic Acid Miguel Angel (0.7-2.0) mmol/L Calcium 9.2 (8.4-10.2) mg/dL Total Bilirubin (0.2-1.3) mg/dL AST (14-36) U/L ALT (4-34) U/L Alkaline Phosphatase (38-126) U/L C-Reactive Protein <0.5 (<1.0) mg/dL Total Protein (6.3-8.2) g/dL Albumin (3.5-5.0) g/dL Amylase (30-110) U/L Lipase (23-300) U/L Urine Color Urine Appearance (Clear) Urine pH (5.0-8.0) Ur Specific [place] (1.001-1.035) Urine Protein (Negative) Urine Glucose (UA) (Negative) Urine Ketones (Negative) Urine Blood (Negative) Urine Nitrite (Negative) Urine Bilirubin (Negative) Urine Urobilinogen (<2.0) mg/dL Ur Leukocyte Esterase (Negative) 01/04/22 Range/Units 07:21 WBC (3.8-10.6) k/uL RBC (3.80-5.40) m/uL Hgb (11.4-16.0) gm/dL Hct (34.0-46.0) % MCV (80.0-100.0) fL MCH (25.0-35.0) pg MCHC (31.0-37.0) g/dL RDW (11.5-15.5) % Plt Count (150-450) k/uL Plt Count Comment MPV Immature Gran % (Auto) % Absolute Nucleated RBC (0.00-0.00) X 10*3/uL Neutrophils % % Lymphocytes % % Monocytes % % Eosinophils % % Basophils % % Immature Gran # (0.00-0.04) X 10*3/uL Neutrophils # (1.3-7.7) k/uL Lymphocytes # (1.0-4.8) k/uL Monocytes # (0-1.0) k/uL Eosinophils # (0-0.7) k/uL Basophils # (0-0.2) k/uL NRBC/100 WBC Diff (0.0-0.0) /100 WBCS Macrocytosis Macrocytosis (manual) Sodium (137-145) mmol/L Potassium (3.5-5.1) mmol/L Chloride (98-107) mmol/L Carbon Dioxide (22-30) mmol/L Anion Gap mmol/L BUN (7-17) mg/dL Creatinine (0.52-1.04) mg/dL Est GFR (CKD-EPI)AfAm (>60 ml/min/1.73 sqM) Est GFR (CKD-EPI)NonAf (>60 ml/min/1.73 sqM) BUN/Creatinine Ratio (12.00-20.00) Ratio Glucose (74-99) mg/dL Plasma Lactic Acid Miguel Angel 0.6 L (0.7-2.0) mmol/L Calcium (8.4-10.2) mg/dL Total Bilirubin (0.2-1.3) mg/dL AST (14-36) U/L ALT (4-34) U/L Alkaline Phosphatase (38-126) U/L C-Reactive Protein (<1.0) mg/dL Total Protein (6.3-8.2) g/dL Albumin (3.5-5.0) g/dL Amylase (30-110) U/L Lipase (23-300) U/L Urine Color Urine Appearance (Clear) Urine pH (5.0-8.0) Ur Specific [place] (1.001-1.035) Urine Protein (Negative) Urine Glucose (UA) (Negative) Urine Ketones (Negative) Urine Blood (Negative) Urine Nitrite (Negative) Urine Bilirubin (Negative) Urine Urobilinogen (<2.0) mg/dL Ur Leukocyte Esterase (Negative) Disposition Clinical Impression: Post-splenectomy, Abdominal pain, Leukocytosis Disposition: ADMITTED IP TO THIS [facility] Condition: Stable Is patient prescribed a controlled substance at d/c from ED?: No Time of Disposition: 19:58 Decision to Admit Reason: Admit from EC Decision Date: 01/03/22 Decision Time: 19:58
[2022-01-03] MEDS ORDERED: SODIUM CHLORIDE 0.9% 1,000 ML IV ONE (16:45)
[2022-01-03] MEDS ORDERED: HYDROmorphone 1 MG/ML 1 ML SYRINGE IVP STA (16:45)
[2022-01-03 16:58] LABS: Appearance,Urine Clear (Clear); Basophils # (A) 0.2 k/uL (0-0.2); Basophils % (A) 1 %; Bilirubin,Urine Negative (Negative); Blood,Urine Negative (Negative); Color,Urine Yellow; Eosinophils # (A) 0.6 k/uL (0-0.7); Eosinophils % (A) 3 %; Glucose,Urine (UA) Negative (Negative); HCT 49.8 % (34.0-46.0); HGB 16.2 gm/dL (11.4-16.0); Ketones,Urine Negative (Negative); Leukocyte Esterase,Urine Negative (Negative); Lymphocytes # (A) 2.9 k/uL (1.0-4.8); Lymphocytes % (A) 15 %; MCH 33.3 pg (25.0-35.0); MCHC 32.6 g/dL (31.0-37.0); MCV 102.2 fL (80.0-100.0); Macrocytosis Slight; Mean Platelet Volume 6.9; Monocytes % (A) 5 %; Neutrophils # (A) 14.4 k/uL (1.3-7.7); Neutrophils % (A) 75 %; Nitrite,Urine Negative (Negative); Platelet Count 548 k/uL (150-450); Protein,Urine Negative (Negative); RBC 4.87 m/uL (3.80-5.40); RDW 12.3 % (11.5-15.5); Specific Gravity,Urine 1.018 (1.001-1.035); Urobilinogen,Urine <2.0 mg/dL (<2.0); WBC 19.3 k/uL (3.8-10.6)
[2022-01-03 17:07] LABS: ALT 22 U/L (4-34); AST 29 U/L (14-36); African American GFR (CKD) >90 (>60 ml/min/1.73 sqM); Albumin 4.3 g/dL (3.5-5.0); Alkaline Phosphatase 96 U/L (38-126); Amylase 61 U/L (30-110); Anion Gap 12 mmol/L; Blood Urea Nitrogen 12 mg/dL (7-17); Calcium 9.6 mg/dL (8.4-10.2); Carbon Dioxide 21 mmol/L (22-30); Chloride 103 mmol/L (98-107); Glucose 115 mg/dL (74-99); Lipase 61 U/L (23-300); Non-African American GFR(CKD) >90 (>60 ml/min/1.73 sqM); Potassium 4.3 mmol/L (3.5-5.1); Sodium 136 mmol/L (137-145); Total Bilirubin 0.5 mg/dL (0.2-1.3); Total Protein 7.3 g/dL (6.3-8.2)
--- NOTE | 2022-01-03 17:59 | CT ---
EXAMINATION TYPE: CT abdomen pelvis w con DATE OF EXAM: 01/03/2022 COMPARISON: None HISTORY: right sided pain CT DLP: 567.2 mGycm Automated exposure control for dose reduction was used. CONTRAST: Performed with IV Contrast, patient injected with 100 mL of Isovue 300. Images obtained from the diaphragm to the floor the pelvis with the IV contrast. Lung bases are clear of infiltrate. No pleural effusion. Heart size is normal. No pericardial effusio n. Liver is intact. Gallbladder is intact. The bile duct are not dilated. Spleen appears absent. There a re clips from splenectomy. No evidence of pancreatic mass. There are surgical clips at the stomach. There is no adrenal mass. Kidneys show satisfactory contrast opacification. There is no hydronephrosi s. There is 2 cm cortical cyst medial right kidney. Ureters are not dilated. Delayed images show norm al renal excretion. There is no retroperitoneal adenopathy. The bladder distends smoothly. No interna l hernia. No free fluid in the pelvis. Uterus is anteverted. No pelvic mass. Appendix is partly seen and appears normal. The lumbar vertebra show normal alignment. There is mild narrowing at the L3-4 L4-5 disc spaces. No c ompression fracture. IMPRESSION: There is clearing of the left pleural effusion and left lower lobe consolidation compared to old exam . There is clearing of the complex fluid at the tail of the pancreas compared to old exam. No acute a bnormality in the abdomen pelvis. Splenic and gastric surgery.
[2022-01-03] MEDS ORDERED: PIPERACILLIN-TAZOBACTAM 3.375 GM in SODIUM CHLORIDE 0.9% 100 ML IVPB STA (19:01)
[2022-01-03] MEDS ORDERED: NALOXONE 0.4 MG/ML 1 ML VIAL IV PRN (19:58)
[2022-01-03] MEDS ORDERED: ONDANSETRON 4 MG/2 ML VIAL IVP PRN (20:09)
[2022-01-03] MEDS: HYDROmorphone 1 MG/ML 1 ML SYRINGE IVP PRN (20:55)
[2022-01-03] MEDS ORDERED: ALPRAZolam 0.5 MG TAB PO PRN (21:40)
[2022-01-03] MEDS ORDERED: ALBUTEROL NEBULIZED 2.5 MG/3 ML INHALATION PRN ×2 (21:40)
[2022-01-03] MEDS ORDERED: CYCLOBENZAPRINE 10 MG TAB PO PRN (21:40)
[2022-01-03] MEDS: PIPERACILLIN-TAZOBACTAM 3.375 GM in SODIUM CHLORIDE 0.9% 100 ML IVPB SCH ×2 (22:04→22:38)
[2022-01-03] MEDS: GABAPENTIN 300 MG CAP PO SCH (22:55)
[2022-01-03] MEDS: methocarbamoL 750 MG TAB PO SCH (22:56)
[2022-01-03] MEDS: buPROPion XL 150 MG TAB.ER.24H PO SCH (23:19)
--- NOTE | 2022-01-04 02:37 | P.HPIM ---
History of Present Illness H&P Date: 01/03/22 Chief Complaint: Abdominal pain 46-year-old female with recent history of complicated bariatric surgery requiring Sharona-en-Y back in 2019 Patient comes in today with complaints of 2 day history of left lower quadrant abdominal pain she described the pain as sharp shooting pain that starts in the pubic area and radiates to the left flank not related to food or activity happ ens randomly throughout the day not associated with any GI bleeding vaginal bleeding or discharge denies any changes in urinary or bowel habits denies any nausea vomiting chest pain or trouble breathing. She does report history of arthritis for which she takes Tylenol arthritis however for this pain it was not working patient grew concerned and decided come in for evaluation. She denies any unsanitary food denies recent travel has any trauma. Upon evaluation in the ED CT scan of the abdomen was unremarkable for any acute pathology. Blood work showed leukocytosis and thrombocytosis. Patient has no fever She was given one-time dose of Zosyn in the ED and admitted for surgery evaluation Review of Systems Pertinent positives as noted in HPI. All other systems were reviewed and are negative Past Medical History Past Medical History: Asthma, COPD, GERD/Reflux, Hypertension, Musculoskeletal Disorder, Neurologic Disorder, Sleep Apnea/CPAP/BIPAP, Thyroid Disorder Additional Past Medical History / Comment(s): smoking-related interstitial lung disease, doesn't use CPAP, history of seizure at the age of 16 related to med. to stop breast milk, endometriosis, chronic back pain, plantar fasciitis, hx. of Achilles tendinitis, probably antibiotic induced. She also has history of hypothyroidism, ALLERGIC rhinitis, migraines, current steroids for wheezing & cough, uses oxygen prn, recent iron infusion History of Any Multi-Drug Resistant Organisms: None Reported Past Surgical History: Bariatric Surgery, Tubal Ligation, Uterine Ablation Additional Past Surgical History / Comment(s): LEEP PROCEDURE X 2, EGD, BACK INJ ECTIONS FOR PAIN. The patient has also undergone thoracic/thoracoscopic wedge biopsy of the right lung. 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; R and Y bypass at [facility] 2019,TRACHEOTOMY-RESOLVED Past Anesthesia/Blood Transfusion Reactions: Motion Sickness Additional Past Anesthesia/Blood Transfusion Reaction / Comment(s): no problem w/blood transfusion Past Psychological History: Anxiety Smoking Status: Former smoker Past Alcohol Use History: None Reported Past Drug Use History: None Reported - Past Family History Sister(s) Family Medical History: Cancer Mother Family Medical History: Cancer Additional Family Medical History / Comment(s): breast cancer Father Family Medical History: COPD, CVA/TIA, Myocardial Infarction ([place]) Additional Family Medical History / Comment(s): HEART PROBLEMS, AT AGE 64 Medications and Allergies Home Medications Medication Instructions Recorded Confirmed Type Levothyroxine Sodium [Synthroid] 50 mcg PO DAILY 01/05/14 01/03/22 History Hydrocodone/Acetaminophen [[place] 1 tab PO TID 10/17/16 01/03/22 History 10-325] ALPRAZolam [Xanax] 0.5 mg PO TID PRN 11/24/17 01/03/22 History Albuterol Nebulized [Ventolin 2.5 mg INHALATION RT-Q4H PRN 05/28/18 01/03/22 History Nebulized] Multivitamins, Thera [Multivitamin 1 tab PO DAILY 05/28/18 01/03/22 History (formulary)] Pantoprazole Sodium [Protonix] 40 mg PO DAILY 05/28/18 01/03/22 History Gabapentin [Neurontin] 300 mg PO BID 12/05/19 01/03/22 History Vitamin A [Vitamin A (8,000 Units 8,000 unit PO DAILY 12/19/19 01/03/22 History = 2,400 MCG)] Zinc Sulfate 220 mg PO DAILY 12/19/19 01/03/22 History Cyclobenzaprine [Flexeril] 10 mg PO W/SUPPER PRN 10/29/20 01/03/22 History Metoprolol Succinate (ER) [Toprol 12.5 mg PO DAILY 10/29/20 01/03/22 History XL] methocarbamoL [Robaxin-750] 750 mg PO BID 01/01/21 01/03/22 History Meclizine [Antivert] 12.5 mg PO BID PRN 01/23/21 01/03/22 History buPROPion HCL [Wellbutrin XL] 150 mg PO BID 01/23/21 01/03/22 History Albuterol Inhaler [Ventolin Hfa 2 puff INHALATION RT-QID PRN 08/21/21 01/03/22 History Inhaler] Atogepant [Qulipta] 60 mg PO DAILY 08/21/21 01/03/22 History Ubrogepant [Ubrelvy] 100 mg PO DAILY PRN 08/21/21 01/03/22 History predniSONE 10 mg PO DAILY 08/21/21 01/03/22 History Buta/APAP/Caf/Cod 85-369-09-30 1 cap PO BID PRN 01/03/22 01/03/22 History [Fioricet w/Cod 58-823-43-30MG] Pravastatin Sodium [Pravachol] 20 mg PO DAILY 01/03/22 01/03/22 History Promethazine HCl [Phenergan Syrup] 6.25 mg PO HS PRN 01/03/22 01/03/22 History Allergies Allergy/AdvReac Type Severity Reaction Status Date / Time bee venom protein (honey bee) Allergy SWELLING , Verified 01/03/22 19:41 AND ITCHING nitrofurantoin Allergy Rash/Hives Verified 01/03/22 19:41 [From Macrobid] nitrofurantoin Allergy Rash/Hives Verified 01/03/22 19:41 macrocrystalline [From Macrobid] moxifloxacin [From Avelox] AdvReac Nausea & Verified 01/03/22 19:41 Vomiting seasonal allergies Allergy Unknown Uncoded 01/03/22 19:41 Physical Exam Vitals: Vital Signs Temp Pulse Resp BP Pulse Ox 01/03/22 18:59 98.0 F 83 18 127/79 94 L 01/03/22 17:05 80 18 124/80 95 01/03/22 14:46 98 F 100 18 121/78 96 Intake and Output 01/03/22 01/03/22 01/04/22 14:59 22:59 06:59 Other: Weight 54.431 kg 54.431 kg Constitutional: No acute distress, conversant, pleasant Eyes: Anicteric sclerae, moist conjunctiva, Pupils equal round reactive to light ENMT: NC/AT Oropharynx clear, no erythema, or exudates Neck: Supple, no masses, or JVD No carotid bruits No thyromegaly Lungs: Clear to auscultation Clear to percussion Normal respiratory effort, no accessory muscle use Cardiovascular: Heart regular in rate and rhythm, No murmurs, gallops, or rubs No peripheral edema Abdominal: Soft Nontender, no guarding, rebound or rigidity Abdomen moving with respiration Normoactive bowel sounds No hepatomegaly, No splenomegaly No palpable mass No abdominal wall hernia noted Skin: Normal temperature, tone, texture, turgor No induration No subcutaneous nodules No rash, lesions No ulcers Extremities: No digital cyanosis No clubbing Pedal pulses intact and symmetrical Radial pulses intact and symmetrical No calf tenderness Psychiatric: Alert and oriented to person, place and time Appropriate affect fair judgement Neuro Muscles Strength 5/5 in all 4 extremities Sensation to light touch grossly present throughout Cranial nerves II-XII grossly intact No focal sensory deficits Lymphatics: no palpable cervical or supraclavicular , or inguinal lymph nodes Results CBC & Chem 7: 01/03/22 16:26 01/03/22 16:26 Labs: Abnormal Lab Results - Last 24 Hours (Table) 01/03/22 01/03/22 Range/Units 16:26 16:26 WBC 19.3 H (3.8-10.6) k/uL Hgb 16.2 H (11.4-16.0) gm/dL Hct 49.8 H (34.0-46.0) % MCV 102.2 H (80.0-100.0) fL Plt Count 548 H (150-450) k/uL Neutrophils # 14.4 H (1.3-7.7) k/uL Sodium 136 L (137-145) mmol/L Carbon Dioxide 21 L (22-30) mmol/L Creatinine 0.49 L (0.52-1.04) mg/dL Glucose 115 H (74-99) mg/dL Thrombosis Risk Factor Assmnt - Choose All That Apply Each Factor Represents 1 point: Abnormal pulmonary function (COPD), Age 41-60 years Thrombosis Risk Factor Assessment Total Risk Factor Score: 2 Thrombosis Risk Factor Assessment Level: Low Risk Assessment and Plan Assessment: Left lower quadrant abdominal pain, resolved Tolerating by mouth intake Symptomatic control of pain with opiates Monitor vital signs IV fluid hydration with normal saline Gen. surgery consultation CT of the abdomen no acute pathology Leukocytosis and thrombocytosis, no fever Patient was initiated on Zosyn in the ED Follow-up cultures Monitor vital signs Follow-up cultures UA unremarkable Chronic conditions COPD, compensated, resume inhalers Hypertension is in metoprolol Peripheral neuroapathy resume Neurontin Full code DVT prophylaxis heparin subcu 3 times a day
[2022-01-04] MEDS: HYDROmorphone 1 MG/ML 1 ML SYRINGE IVP PRN ×3 (03:52→12:37)
[2022-01-04] MEDS: PIPERACILLIN-TAZOBACTAM 3.375 GM in SODIUM CHLORIDE 0.9% 100 ML IVPB SCH ×3 (03:52→20:13)
[2022-01-04] MEDS: LEVOTHYROXINE 50 MCG TAB PO SCH (05:51)
[2022-01-04] MEDS: GABAPENTIN 300 MG CAP PO SCH ×2 (08:28→20:14)
[2022-01-04] MEDS: predniSONE 10 MG TAB PO SCH (08:28)
[2022-01-04] MEDS: PANTOPRAZOLE 40 MG TABLET PO SCH (08:28)
[2022-01-04] MEDS: PRAVASTATIN SODIUM 20 MG TAB PO SCH (08:28)
[2022-01-04] MEDS: methocarbamoL 750 MG TAB PO SCH ×2 (08:28→20:14)
[2022-01-04] MEDS: METOPROLOL SUCCINATE (ER) 25 MG TAB.ER.24H PO SCH (08:29)
[2022-01-04] MEDS: NON FORMULARY DRUG (Atogepant [Qulipta] 60 MG Tablet) PO SCH (08:29)
[2022-01-04] MEDS: buPROPion XL 150 MG TAB.ER.24H PO SCH ×2 (09:15→20:58)
[2022-01-04 09:21] LABS: African American GFR (CKD) 118.7 (60.0-200.0); BUN/Creat Ratio 15.14 Ratio (12.00-20.00); Blood Urea Nitrogen 10.6 mg/dL (9.0-27.0); Calcium 9.2 mg/dL (8.7-10.3); Non-African American GFR(CKD) 102.5 (60.0-200.0); Potassium 4.7 mmol/L (3.5-5.5)
[2022-01-04 09:31] LABS: HCT 44.1 % (37.2-46.3); HGB 14.3 g/dL (12.0-15.0); MCH 33.7 pg (27.0-32.0); MCHC 32.4 g/dL (32.0-37.0); Mean Platelet Volume 9.2 fL (9.5-12.2); NRBC Per 100 WBC 0 /100 WBCS (0.0-0.0); Platelet Count 545 X 10*3/uL (140-440); RBC 4.24 X 10*6/uL (4.10-5.20); RDW 13.4 % (11.5-14.5); WBC 16.79 X 10*3/uL (4.50-10.00)
[2022-01-04 10:01] LABS: Basophils # (A) 0.27 X 10*3/uL (0.00-0.10); Basophils % (A) 1.6 %; Eosinophils # (A) 0.65 X 10*3/uL (0.04-0.35); Eosinophils % (A) 3.9 %; Immature Grans, Automated 3.8 %; Lymphocytes # (A) 3.31 X 10*3/uL (0.90-5.00); Lymphocytes % (A) 19.7 %; Monocytes # (A) 1.57 X 10*3/uL (0.20-1.00); Monocytes % (A) 9.4 %; Neutrophils # (A) 10.36 X 10*3/uL (1.80-7.70); Neutrophils % (A) 61.6 %
[2022-01-04 10:02] LABS: Macrocytosis (M) 2+
--- NOTE | 2022-01-04 11:18 | P.PN ---
Subjective Progress Note Date: 01/04/22 Hospital course: Patient is a very pleasant 46-year-old female with a past medical history hypertension, hyperlipidemia, COPD, hypothyroidism, GERD, endometriosis status post uterine ablation, gastric sleeve and splenectomy, Sharona-en-Y gastric bypass. Patient presented to the emergency department on 01/03/22 with a chief complaint of abdominal pain beginning 3 days prior. Patient reporting suprapubic pain radiating down into left lower quadrant/suprapubic region. She underwent full evaluation in the emergency department. CT abdomen and pelvis with contrast was negative for acute abnormality throughout the abdomen or pelvis revealing clearing of previously reported left pleural effusion and left lower lobe consolidation when compared to previous exam as well as clearing of complex fluid at the tail of the pancreas. Patient was found to have moderate leukocytosis with WBC count of 19.3, elevated hemoglobin of 16.2, and elevated platelet count of 548. CMP was unremarkable and urinalysis was negative for blood, protein, or infection. Patient was admitted under our services with consultation to general surgery. Overnight, patient reports developing irregular vaginal bleeding. She reports she has not had any menstrual bleeding in greater than one year since having a uterine ablation and that she continues to have sharp suprapubic and left lower quadrant pains. Patient reports pain is currently being controlled with Dilaudid, but states is not completely relieved. Consult was placed to IT SUPPORT SPECIALIST and transvaginal ultrasound to be completed. Physical exam: Patient was seen and fully evaluated at bedside this morning. She reports overnight she developed irregular vaginal bleeding, she denies having any blood clots reports only bright red vaginal bleeding. She states that she continues to have severe suprapubic and left lower quadrant pains. Morning labs revealed mild improvement of leukocytosis down to 16.79, resolution of elevated hemoglobin which is now down to 14.3 and only slight improvement of thrombocytosis with platelet count of 545. Patient denies having any nausea, vomiting, changes in her difficulties with urination and denies any changes in her difficulties with bowel function. She has been tolerating clear liquid diet. Vital signs reviewed and stable. General: Nontoxic, no distress and appears stated age. Derm: Skin warm and dry, normal coloration for ethnicity. Head: Atraumatic, normocephalic and symmetric. Eyes: EOMs intact, no lid lag, and anicteric sclera Mouth: no lip lesions, mucus membranes moist Cardiovascular: regular rate and rhythm with normal S1S2, no murmur, positive posterior tibial pulses bilaterally, and cap refill < 2 seconds. Lungs: Respirations even, regular, and unlabored on room air. Lungs CTA bilaterally, no rhonchi, no rales, no wheezing, and no accessory muscle usage. Abdominal: soft, slight tenderness to suprapubic region, no guarding, no appreciable organomegaly Ext: ROM intact. No gross muscle atrophy, no edema, no contractures Neuro: Speech clear, face symmetrical and CN II-XII grossly intact with no noted focal neuro deficits Psych: Alert and oriented to person, place, time, and situation. Appropriate and pleasant affect. Assessment and Plan of Care: Suprapubic and left lower quadrant abdominal pain Irregular vaginal bleeding History of Sharona-en-Y gastric bypass History of endometriosis status post uterine ablation -Gen. surgery was consulted, appreciate further recommendations. -Gynecology consulted, appreciate further recommendations. -CT abdomen and pelvis with contrast was negative for acute abdominal/pelvic process -Transvaginal ultrasound to be completed. Leukocytosis and thrombocytosis, no fever -Continue empiric antibiotics: Zosyn pending culture results Hypertension Monitor vital signs and continue daily medication regimen with metoprolol Hyperlipidemia Continue daily medication regimen with pravastatin COPD, not in acute exacerbation Continue use of daily prednisone and home inhalers Hypothyroidism -Continue daily medication regimen with levothyroxine Anxiety and depression -Continue daily home medication regimen with Wellbutrin CODE STATUS: Full code DVT prophylaxis: Heparin Discussed with: Patient and RN Anticipated discharge date: Within the next [address]: Home A total of 35 minutes was spent on the care of this complex patient more than 50% of the time was spent in counseling and care coordination. Chidi Mane NP rendered care for this patient independently, reviewed the findings and plan as documented in the note above. I did not physically speak with or examine the patient on this date. Objective - Vital Signs Vital signs: Vital Signs Temp 97.9 F 01/04/22 07:05 Pulse 95 01/04/22 07:05 Resp 18 01/04/22 07:05 BP 133/75 01/04/22 07:05 Pulse Ox 95 01/04/22 07:05 FiO2 Intake & Output 01/03/22 01/04/22 01/04/22 18:59 06:59 18:59 Weight 54.431 kg 54.431 kg Other: # Voids 1 - Labs CBC & Chem 7: 01/04/22 05:35 01/04/22 05:35 Labs: Abnormal Lab Results - Last 24 Hours (Table) 01/03/22 01/03/22 01/04/22 Range/Units 16:26 16:26 05:35 WBC 19.3 H 16.79 H (3.8-10.6) k/uL Hgb 16.2 H (11.4-16.0) gm/dL Hct 49.8 H (34.0-46.0) % MCV 102.2 H 104.0 H (80.0-100.0) fL MCH 33.7 H (27.0-32.0) pg Plt Count 548 H 545 H (150-450) k/uL Plt Count Comment INCREASED A MPV 9.2 L (9.5-12.2) fL Immature Gran # 0.63 H (0.00-0.04) X 10*3/uL Neutrophils # 14.4 H 10.36 H (1.3-7.7) k/uL Monocytes # 1.57 H (0.20-1.00) X 10*3/uL Eosinophils # 0.65 H (0.04-0.35) X 10*3/uL Basophils # 0.27 H (0.00-0.10) X 10*3/uL Sodium 136 L (137-145) mmol/L Carbon Dioxide 21 L (22-30) mmol/L Creatinine 0.49 L (0.52-1.04) mg/dL Glucose 115 H (74-99) mg/dL Plasma Lactic Acid Miguel Angel (0.7-2.0) mmol/L 01/04/22 01/04/22 Range/Units 05:35 07:21 WBC (3.8-10.6) k/uL Hgb (11.4-16.0) gm/dL Hct (34.0-46.0) % MCV (80.0-100.0) fL MCH (27.0-32.0) pg Plt Count (150-450) k/uL Plt Count Comment MPV (9.5-12.2) fL Immature Gran # (0.00-0.04) X 10*3/uL Neutrophils # (1.3-7.7) k/uL Monocytes # (0.20-1.00) X 10*3/uL Eosinophils # (0.04-0.35) X 10*3/uL Basophils # (0.00-0.10) X 10*3/uL Sodium (137-145) mmol/L Carbon Dioxide (22-30) mmol/L Creatinine (0.52-1.04) mg/dL Glucose 114 H (74-99) mg/dL Plasma Lactic Acid Miguel Angel 0.6 L (0.7-2.0) mmol/L
--- NOTE | 2022-01-04 14:03 | P.GSCN ---
History of Present Illness Consult date: 01/04/22 History of present illness: CHIEF COMPLAINT: Left lower quadrant abdominal pain HISTORY OF PRESENT ILLNESS: Laura Rangel is a 46-year-old female status post sleeve gastrectomy, 03/06/2018 converted to gastric bypass at [facility] in 2019. She is 3 years out. Patient reports developing acute left lower quadrant abdominal pain 3 days ago. "It feels like endometriosis." No reports of epigastric or right upper quadrant or left upper quadrant abdominal pain. She d enies blood in her stools. 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 Gen. surgery is consulted for abdominal pain. PAST MEDICAL HISTORY: 1. Morbid obesity due to excess calories 2. Body mass index of 47.1, initial 3. Hypothyroidism 4. Chronic obstructive pulmonary disease 5. Generalized anxiety disorder 6. Gastroesophageal reflux disease 7. Migraines 8. Neuropathy 9. Chronic back pain 10. Hypertensive heart disease 11. Obstructive sleep apnea 12. Seizure disorder 13. Endometriosis 14. Plantar fasciitis 15. Motion sickness 16. Depressive disorder 17. Leukocytosis PAST SURGICAL HISTORY: 1. Sleeve gastrectomy with leak 2. Tubal ligation 3. LEEP procedure 4. Thoracoscopy with wedge resection HOME MEDICATIONS: Reviewed ALLERGIES: Reviewed SOCIAL HISTORY: Past tobacco use. FAMILY HISTORY: No family history of ulcerative colitis disease or Crohn's disease. Family history of morbid obesity. No lupus in the family. No reports of stomach or esophageal cancer. REVIEW OF ORGAN SYSTEMS: CONSTITUTIONAL: At height of 5 feet 1 inches, her ideal body weight is 131 pounds. Her highest weight was 249 pounds, BMI 47.1. HEENT: Denies any active troubles with vision or hearing. Has troubles with swallowing. ENDOCRINE: No current diabetes. Has hypothyroidism. Chronic steroids. CARDIOVASCULAR: Past reports of palpitations or heart attacks or chest pain. RESPIRATORY: Has daytime somnolence. Has asthma. History of RSV infection GASTROINTESTINAL: Denies any bright red blood per rectum. No diarrhea. No constipation. MUSCULOSKELETAL: Has lower back pain and joint pain. Has osteoarthritis of the knees. NEURO: Past headaches. Past seizure disorders. PSYCH: Has depression. No suicidal ideation. RHEUMATOLOGIC: No lupus. No rheumatoid arthritis. HEMATOLOGIC: Denies any abnormal bleeding or bruising. No personal history of DVTs. History of intra-abdominal infection. SKIN: No rash. No skin cancer. PHYSICAL EXAM: VITAL SIGNS: Reviewed GENERAL: Well-developed in no acute distress. HEENT: No scleral icterus. Extraocular movements grossly intact. Hears conversational speech. No nasal drainage. NECK: Supple without lymphadenopathy. CHEST: Nonlabored respirations with equal bilateral excursions. CARDIOVASCULAR: Regular rate and regular rhythm. Distal 2+ pulses. ABDOMEN: Mild tenderness left lower quadrant. MUSCULOSKELETAL: No clubbing, cyanosis. NEURO: No focal or lateralizing signs. Cranial nerves 2 through 12 grossly within normal limits. PSYCH: Appropriate affect. Alert and oriented to person, place and time. SKIN: Good skin turgor. Well perfused. LABS: WBC elevated but trending downward. Patient has pre-existing persistent leukocytosis STUDIES: CT of the abdomen and pelvis reviewed demonstrating no internal hernias. No bowel obstruction. Dilated gallbladder. No free air. Questionable bilateral ovarian cysts. This is my independent interpretation. ASSESSMENT: 1. Acute left lower quadrant abdominal pain 2. History of endometriosis 3. Hypothyroidism 4. Chronic obstructive pulmonary disease 5. Generalized anxiety disorder 6. Gastroesophageal reflux disease 7. Migraines 8. Neuropathy 9. Chronic back pain 10. Hypertensive heart disease 11. Obstructive sleep apnea 12. Seizure disorder 13. Endometriosis 14. Plantar fasciitis 15. Motion sickness 16. Status post sleeve gastrectomy with leak 17. History of intra-abdominal infection 18. Zinc deficiency 19. Vitamin A deficiency 20. Inadequate protein intake 21. Weight gain follow bariatric procedure 22. Panniculitis 23. Gallstones 24. Body mass index of 47.1, initial to 22.7 25. Persistent leukocytosis PLAN: 1. Recommend transvaginal ultrasound due to lower abdominal pain and history of endometriosis 2. No acute general surgical intervention 3. May advance diet as tolerated Past Medical History Past Medical History: Asthma, COPD, GERD/Reflux, Hypertension, Musculoskeletal Disorder, Neurologic Disorder, Sleep Apnea/CPAP/BIPAP, Thyroid Disorder Additional Past Medical History / Comment(s): smoking-related interstitial lung disease, doesn't use CPAP, history of seizure at the age of 16 related to med. to stop breast milk, endometriosis, chronic back pain, plantar fasciitis, hx. of Achilles tendinitis, probably antibiotic induced. She also has history of hypothyroidism, ALLERGIC rhinitis, migraines, current steroids for wheezing & cough, uses oxygen prn, recent iron infusion History of Any Multi-Drug Resistant Organisms: None Reported Past Surgical History: Bariatric Surgery, Tubal Ligation, Uterine Ablation Additional Past Surgical History / Comment(s): LEEP PROCEDURE X 2, EGD, BACK INJECTIONS FOR PAIN. The patient has also undergone thoracic/thoracoscopic wedge biopsy of the right lung. 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; R and Y bypass at [facility] 2019,TRACHEOTOMY-RESOLVED Past Anesthesia/Blood Transfusion Reactions: Motion Sickness Additional Past Anesthesia/Blood Transfusion Reaction / Comm: no problem w/blood transfusion Past Psychological History: Anxiety Smoking Status: Former smoker Past Alcohol Use History: None Reported Past Drug Use History: None Reported - Past Family History Sister(s) Family Medical History: Cancer Mother Family Medical History: Cancer Additional Family Medical History / Comment(s): breast cancer Father Family Medical History: COPD, CVA/TIA, Myocardial Infarction ([place]) Additional Family Medical History / Comment(s): HEART PROBLEMS, AT AGE 64 Medications and Allergies Home Medications Medication Instructions Recorded Confirmed Type Levothyroxine Sodium [Synthroid] 50 mcg PO DAILY 01/05/14 01/03/22 History Hydrocodone/Acetaminophen [Pool 1 tab PO TID 10/17/16 01/03/22 History 10-325] ALPRAZolam [Xanax] 0.5 mg PO TID PRN 11/24/17 01/03/22 History Albuterol Nebulized [Ventolin 2.5 mg INHALATION RT-Q4H PRN 05/28/18 01/03/22 History Nebulized] Multivitamins, Thera [Multivitamin 1 tab PO DAILY 05/28/18 01/03/22 History (formulary)] Pantoprazole Sodium [Protonix] 40 mg PO DAILY 05/28/18 01/03/22 History Gabapentin [Neurontin] 300 mg PO BID 12/05/19 01/03/22 History Vitamin A [Vitamin A (8,000 Units 8,000 unit PO DAILY 12/19/19 01/03/22 History = 2,400 MCG)] Zinc Sulfate 220 mg PO DAILY 12/19/19 01/03/22 History Cyclobenzaprine [Flexeril] 10 mg PO W/SUPPER PRN 10/29/20 01/03/22 History Metoprolol Succinate (ER) [Toprol 12.5 mg PO DAILY 10/29/20 01/03/22 History XL] methocarbamoL [Robaxin-750] 750 mg PO BID 01/01/21 01/03/22 History Meclizine [Antivert] 12.5 mg PO BID PRN 01/23/21 01/03/22 History buPROPion HCL [Wellbutrin XL] 150 mg PO BID 01/23/21 01/03/22 History Albuterol Inhaler [Ventolin Hfa 2 puff INHALATION RT-QID PRN 08/21/21 01/03/22 History Inhaler] Atogepant [Qulipta] 60 mg PO DAILY 08/21/21 01/03/22 History Ubrogepant [Ubrelvy] 100 mg PO DAILY PRN 08/21/21 01/03/22 History predniSONE 10 mg PO DAILY 08/21/21 01/03/22 History Buta/APAP/Caf/Cod 98-087-92-30 1 cap PO BID PRN 01/03/22 01/03/22 History [Fioricet w/Cod 10-290-18-30MG] Pravastatin Sodium [Pravachol] 20 mg PO DAILY 01/03/22 01/03/22 History Promethazine HCl [Phenergan Syrup] 6.25 mg PO HS PRN 01/03/22 01/03/22 History Allergies Allergy/AdvReac Type Severity Reaction Status Date / Time bee venom protein (honey bee) Allergy SWELLING , Verified 01/03/22 19:41 AND ITCHING nitrofurantoin Allergy Rash/Hives Verified 01/03/22 19:41 [From Macrobid] nitrofurantoin Allergy Rash/Hives Verified 01/03/22 19:41 macrocrystalline [From Macrobid] moxifloxacin [From Avelox] AdvReac Nausea & Verified 01/03/22 19:41 Vomiting seasonal allergies Allergy Unknown Uncoded 01/03/22 19:41 Surgical - Exam Vital Signs Temp Pulse Resp BP Pulse Ox 98 F 100 18 121/78 96 01/03/22 14:46 01/03/22 14:46 01/03/22 14:46 01/03/22 14:46 01/03/22 14:46 Results - Labs 01/04/22 05:35 01/04/22 05:35 Abnormal Lab Results - Last 24 Hours (Table) 01/03/22 01/03/2222 Range/Units 16:26 16:26 05:35 WBC 19.3 H 16.79 H (3.8-10.6) k/uL Hgb 16.2 H (11.4-16.0) gm/dL Hct 49.8 H (34.0-46.0) % MCV 102.2 H 104.0 H (80.0-100.0) fL MCH 33.7 H (27.0-32.0) pg Plt Count 548 H 545 H (150-450) k/uL Plt Count Comment INCREASED A MPV 9.2 L (9.5-12.2) fL Immature Gran # 0.63 H (0.00-0.04) X 10*3/uL Neutrophils # 14.4 H 10.36 H (1.3-7.7) k/uL Monocytes # 1.57 H (0.20-1.00) X 10*3/uL Eosinophils # 0.65 H (0.04-0.35) X 10*3/uL Basophils # 0.27 H (0.00-0.10) X 10*3/uL Sodium 136 L (137-145) mmol/L Carbon Dioxide 21 L (22-30) mmol/L Creatinine 0.49 L (0.52-1.04) mg/dL Glucose 115 H (74-99) mg/dL Plasma Lactic Acid Miguel Angel (0.7-2.0) mmol/L 01/04/22 01/04/22 Range/Units 05:35 07:21 WBC (3.8-10.6) k/uL Hgb (11.4-16.0) gm/dL Hct (34.0-46.0) % MCV (80.0-100.0) fL MCH (27.0-32.0) pg Plt Count (150-450) k/uL Plt Count Comment MPV (9.5-12.2) fL Immature Gran # (0.00-0.04) X 10*3/uL Neutrophils # (1.3-7.7) k/uL Monocytes # (0.20-1.00) X 10*3/uL Eosinophils # (0.04-0.35) X 10*3/uL Basophils # (0.00-0.10) X 10*3/uL Sodium (137-145) mmol/L Carbon Dioxide (22-30) mmol/L Creatinine (0.52-1.04) mg/dL Glucose 114 H (74-99) mg/dL Plasma Lactic Acid Miguel Angel 0.6 L (0.7-2.0) mmol/L Diabetes panel 01/03/22 01/04/22 Range/Units 16:26 05:35 Sodium 136 L 140 (137-145) mmol/L Potassium 4.3 4.7 (3.5-5.1) mmol/L Chloride 103 105 (98-107) mmol/L Carbon Dioxide 21 L 23.0 (22-30) mmol/L BUN 12 10.6 (7-17) mg/dL Creatinine 0.49 L 0.7 (0.52-1.04) mg/dL Glucose 115 H 114 H (74-99) mg/dL Calcium 9.6 9.2 (8.4-10.2) mg/dL AST 29 (14-36) U/L ALT 22 (4-34) U/L Alkaline Phosphatase 96 (38-126) U/L Total Protein 7.3 (6.3-8.2) g/dL Albumin 4.3 (3.5-5.0) g/dL Calcium panel 01/03/22 01/04/22 Range/Units 16:26 05:35 Calcium 9.6 9.2 (8.4-10.2) mg/dL Albumin 4.3 (3.5-5.0) g/dL Pituitary panel 01/03/22 01/04/22 Range/Units 16:26 05:35 Sodium 136 L 140 (137-145) mmol/L Potassium 4.3 4.7 (3.5-5.1) mmol/L Chloride 103 105 (98-107) mmol/L Carbon Dioxide 21 L 23.0 (22-30) mmol/L BUN 12 10.6 (7-17) mg/dL Creatinine 0.49 L 0.7 (0.52-1.04) mg/dL Glucose 115 H 114 H (74-99) mg/dL Calcium 9.6 9.2 (8.4-10.2) mg/dL Adrenal panel 01/03/22 01/04/22 Range/Units 16:26 05:35 Sodium 136 L 140 (137-145) mmol/L Potassium 4.3 4.7 (3.5-5.1) mmol/L Chloride 103 105 (98-107) mmol/L Carbon Dioxide 21 L 23.0 (22-30) mmol/L BUN 12 10.6 (7-17) mg/dL Creatinine 0.49 L 0.7 (0.52-1.04) mg/dL Glucose 115 H 114 H (74-99) mg/dL Calcium 9.6 9.2 (8.4-10.2) mg/dL Total Bilirubin 0.5 (0.2-1.3) mg/dL AST 29 (14-36) U/L ALT 22 (4-34) U/L Alkaline Phosphatase 96 (38-126) U/L Total Protein 7.3 (6.3-8.2) g/dL Albumin 4.3 (3.5-5.0) g/dL
--- NOTE | 2022-01-04 15:12 | US ---
EXAMINATION TYPE: US transvaginal DATE OF EXAM: 01/04/2022 COMPARISON: CT 01/03/2022 CLINICAL HISTORY: 46-year-old female suprapubic pain, irregular vaginal bleeding. Pelvic pain and spo tting, ablation 2020, history of tubal ligation TECHNIQUE: Transvaginal exam only per ordering physician Date of LMP: Unknown FINDINGS: EXAM MEASUREMENTS: Uterus: 6.9 x 3.8 x 4.4 cm Endometrial Stripe: 1.6 cm Right Ovary: 2.3 x 1.6 x 2.3 cm Left Ovary: 2.5 x 1.2 x 2.8 cm 1. Uterus: anteverted, mildly heterogeneous 2. Endometrium: Irregular, thickened, polypoid, vascular, and partially distended with fluid/hemorrh agic debris. 3. Right Ovary: 1.5cm cystic area, probable dominant follicle. 4. Left Ovary: wnl 5. Bilateral Adnexa: wnl 6. Posterior cul-de-sac: wnl IMPRESSION: Unusual irregular thickening of the endometrium up to 1.6 cm. The uterine cavity has some fluid and h emorrhagic debris as well. AQUATICS LIFEGUARD evaluation recommended. Tissue sampling to exclude endometrial carc inoma
[2022-01-04] MEDS ORDERED: KETOROLAC 15 MG/ML 1 ML VIAL IVP PRN (15:42)
[2022-01-04] MEDS: HEPARIN SODIUM,PORCINE/PF 5,000 UNIT/0.5 ML SYRINGE SQ SCH ×2 (16:34→23:37)
--- NOTE | 2022-01-04 17:01 | P.OBCN ---
History of Present Illness Consult date: 01/04/22 Reason for consult: pelvic pain Chief complaint: Pelvic pain History of present illness: 46-year-old woman status post endometrial ablation with NovaSure 1 year ago presented to the hospital yesterday complaining of severe left lower quadrant pain. She says the pain has, and for the last 3 months in a row and she's also noticed some spotting with it. Ultrasound today showed fluid and blood in the endometrium and possible polyp. This is likely adenomyosis and hematometria from after the ablation. I discussed options with the patient including a D&C to make a tract for the blood to come out and relieve her pain as well as an eventual hysterectomy. Review of Systems All systems: negative Constitutional: Denies chills, Denies fever Eyes: denies blurred vision, denies pain Ears, nose, mouth and throat: Denies headache, Denies sore throat Cardiovascular: Denies chest pain, Denies shortness of breath Respiratory: Denies cough Gastrointestinal: Denies abdominal pain, Denies diarrhea, Denies nausea, Denies vomiting Genitourinary: Denies dysuria, Denies hematuria Musculoskeletal: Denies myalgias Integumentary: Denies pruritus, Denies rash Neurological: Denies numbness, Denies weakness Psychiatric: Denies anxiety, Denies depression Endocrine: Denies fatigue, Denies weight change Past Medical History Past Medical History: Asthma, COPD, GERD/Reflux, Hypertension, Musculoskeletal Disorder, Neurologic Disorder, Sleep Apnea/CPAP/BIPAP, Thyroid Disorder Additional Past Medical History / Comment(s): smoking-related interstitial lung disease, doesn't use CPAP, history of seizure at the age of 16 related to med. to stop breast milk, endometriosis, chronic back pain, plantar fasciitis, hx. of Achilles tendinitis, probably antibiotic induced. She also has history of hypothyroidism, ALLERGIC rhinitis, migraines, current steroids for wheezing & cough, uses oxygen prn, recent iron infusion History of Any Multi-Drug Resistant Organisms: None Reported Past Surgical History: Bariatric Surgery, Tubal Ligation, Uterine Ablation Additional Past Surgical History / Comment(s): LEEP PROCEDURE X 2, EGD, BACK INJECTIONS FOR PAIN. The patient has also undergone thoracic/thoracoscopic wedge biopsy of the right lung. 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; R and Y bypass at [facility] 2019,TRACHEOTOMY-RESOLVED Past Anesthesia/Blood Transfusion Reactions: Motion Sickness Additional Past Anesthesia/Blood Transfusion Reaction / Comm: no problem w/blood transfusion Past Psychological History: Anxiety Smoking Status: Former smoker Past Alcohol Use History: None Reported Past Drug Use History: None Reported - Past Family History Sister(s) Family Medical History: Cancer Mother Family Medical History: Cancer Additional Family Medical History / Comment(s): breast cancer Father Family Medical History: COPD, CVA/TIA, Myocardial Infarction ([place]) Additional Family Medical History / Comment(s): HEART PROBLEMS, AT AGE 64 Medications and Allergies Home Medications Medication Instructions Recorded Confirmed Type Levothyroxine Sodium [Synthroid] 50 mcg PO DAILY 01/05/14 01/03/22 History Hydrocodone/Acetaminophen [[place] 1 tab PO TID 10/17/16 01/03/22 History 10-325] ALPRAZolam [Xanax] 0.5 mg PO TID PRN 11/24/17 01/03/22 History Albuterol Nebulized [Ventolin 2.5 mg INHALATION RT-Q4H PRN 05/28/18 01/03/22 History Nebulized] Multivitamins, Thera [Multivitamin 1 tab PO DAILY 05/28/18 01/03/22 History (formulary)] Pantoprazole Sodium [Protonix] 40 mg PO DAILY 05/28/18 01/03/22 History Gabapentin [Neurontin] 300 mg PO BID 12/05/19 01/03/22 History Vitamin A [Vitamin A (8,000 Units 8,000 unit PO DAILY 12/19/19 01/03/22 History = 2,400 MCG)] Zinc Sulfate 220 mg PO DAILY 12/19/19 01/03/22 History Cyclobenzaprine [Flexeril] 10 mg PO W/SUPPER PRN 10/29/20 01/03/22 History Metoprolol Succinate (ER) [Toprol 12.5 mg PO DAILY 10/29/20 01/03/22 History XL] methocarbamoL [Robaxin-750] 750 mg PO BID 01/01/21 01/03/22 History Meclizine [Antivert] 12.5 mg PO BID PRN 01/23/21 01/03/22 History buPROPion HCL [Wellbutrin XL] 150 mg PO BID 01/23/21 01/03/22 History Albuterol Inhaler [Ventolin Hfa 2 puff INHALATION RT-QID PRN 08/21/21 01/03/22 History Inhaler] Atogepant [Qulipta] 60 mg PO DAILY 08/21/21 01/03/22 History Ubrogepant [Ubrelvy] 100 mg PO DAILY PRN 08/21/21 01/03/22 History predniSONE 10 mg PO DAILY 08/21/21 01/03/22 History Buta/APAP/Caf/Cod 75-254-41-30 1 cap PO BID PRN 01/03/22 01/03/22 History [Fioricet w/Cod 45-887-20-30MG] Pravastatin Sodium [Pravachol] 20 mg PO DAILY 01/03/22 01/03/22 History Promethazine HCl [Phenergan Syrup] 6.25 mg PO HS PRN 01/03/22 01/03/22 History Allergies Allergy/AdvReac Type Severity Reaction Status Date / Time bee venom protein (honey bee) Allergy SWELLING , Verified 01/03/22 19:41 AND ITCHING nitrofurantoin Allergy Rash/Hives Verified 01/03/22 19:41 [From Macrobid] nitrofurantoin Allergy Rash/Hives Verified 01/03/22 19:41 macrocrystalline [From Macrobid] moxifloxacin [From Avelox] AdvReac Nausea & Verified 01/03/22 19:41 Vomiting seasonal allergies Allergy Unknown Uncoded 01/03/22 19:41 Exam Osteopathic Statement: *. No significant issues noted on an osteopathic structural exam other than those noted in the History and Physical/Consult. Vital Signs Temp Pulse Pulse Resp BP BP Pulse Ox 01/04/22 16:31 74 01/04/22 16:20 72 01/04/22 15:00 98.2 F 102 H 18 109/58 94 L 01/04/22 07:05 97.9 F 95 18 133/75 95 01/04/22 02:05 97.9 F 89 16 118/75 92 L 01/03/22 22:41 97.9 F 84 16 158/95 92 L 01/03/22 18:59 98.0 F 83 18 127/79 94 L 01/03/22 17:05 80 18 124/80 95 Intake and Output 01/04/22 01/04/22 01/04/22 06:59 14:59 22:59 Intake Total 120 Balance 120 Intake: Oral 120 Other: # Voids 1 2 1 Heart: Regular rate and rhythm Lungs: Clear to auscultation bilaterally Abdomen: Soft, nontender Extremities: Negative Homans sign Results Result Diagrams: 01/04/22 05:35 01/04/22 05:35 Abnormal Lab Results - Last 24 Hours (Table) 01/03/22 01/03/22 01/04/22 Range/Units 16:26 16:26 05:35 WBC 19.3 H 16.79 H (3.8-10.6) k/uL Hgb 16.2 H (11.4-16.0) gm/dL Hct 49.8 H (34.0-46.0) % MCV 102.2 H 104.0 H (80.0-100.0) fL MCH 33.7 H (27.0-32.0) pg Plt Count 548 H 545 H (150-450) k/uL Plt Count Comment INCREASED A MPV 9.2 L (9.5-12.2) fL Immature Gran # 0.63 H (0.00-0.04) X 10*3/uL Neutrophils # 14.4 H 10.36 H (1.3-7.7) k/uL Monocytes # 1.57 H (0.20-1.00) X 10*3/uL Eosinophils # 0.65 H (0.04-0.35) X 10*3/uL Basophils # 0.27 H (0.00-0.10) X 10*3/uL Sodium 136 L (137-145) mmol/L Carbon Dioxide 21 L (22-30) mmol/L Creatinine 0.49 L (0.52-1.04) mg/dL Glucose 115 H (74-99) mg/dL Plasma Lactic Acid Miguel Angel (0.7-2.0) mmol/L 01/04/22 01/04/22 Range/Units 05:35 07:21 WBC (3.8-10.6) k/uL Hgb (11.4-16.0) gm/dL Hct (34.0-46.0) % MCV (80.0-100.0) fL MCH (27.0-32.0) pg Plt Count (150-450) k/uL Plt Count Comment MPV (9.5-12.2) fL Immature Gran # (0.00-0.04) X 10*3/uL Neutrophils # (1.3-7.7) k/uL Monocytes # (0.20-1.00) X 10*3/uL Eosinophils # (0.04-0.35) X 10*3/uL Basophils # (0.00-0.10) X 10*3/uL Sodium (137-145) mmol/L Carbon Dioxide (22-30) mmol/L Creatinine (0.52-1.04) mg/dL Glucose 114 H (74-99) mg/dL Plasma Lactic Acid Miguel Angel 0.6 L (0.7-2.0) mmol/L Assessment and Plan (1) Pelvic pain Current Visit: Yes Status: Acute Code(s): R10.2 - PELVIC AND PERINEAL PAIN SNOMED Code(s): 11874969 (2) Hematometra Current Visit: Yes Status: Acute Code(s): N85.7 - HEMATOMETRA SNOMED Code(s): 08605904 Plan: 1. schedule D&C for tomorrow in the OR to relieve the hematometra and obtain a sample of endometrium
[2022-01-04] MEDS: HYDROcodone/APAP 10-325MG 1 EACH TAB PO PRN (20:57)
[2022-01-05] MEDS ORDERED: MELATONIN 3 MG TABLET PO PRN (01:43)
[2022-01-05] MEDS: PIPERACILLIN-TAZOBACTAM 3.375 GM in SODIUM CHLORIDE 0.9% 100 ML IVPB SCH ×2 (04:00→11:36)
[2022-01-05] MEDS: LEVOTHYROXINE 50 MCG TAB PO SCH (05:26)
[2022-01-05] MEDS ORDERED: LACTATED RINGERS 1,000 ML IV ONE (08:10)
[2022-01-05] MEDS ORDERED: ONDANSETRON 4 MG/2 ML VIAL IVP ONE (08:19)
[2022-01-05] MEDS ORDERED: fentaNYL (PF) 50 MCG/ML 2 ML AMP ONE (08:21)
[2022-01-05] MEDS ORDERED: MIDAZOLAM 2 MG/2 ML VIAL ONE (08:21)
[2022-01-05] MEDS ORDERED: LIDOCAINE 2% INJ 20 MG/ML (2 ML VIAL) ONE (08:21)
[2022-01-05] MEDS ORDERED: METOPROLOL TARTRATE 5 MG/5 ML VIAL IVP ONE (08:21)
[2022-01-05] MEDS ORDERED: PROPOFOL 10 MG/ML 20 ML VIAL IV ONE (08:21)
[2022-01-05] MEDS ORDERED: KETOROLAC 15 MG/ML 1 ML VIAL ONE (08:21)
[2022-01-05 09:01] VITALS: RESP 16; TEMP 96.9
--- NOTE | 2022-01-05 09:09 | P.OP ---
Date of Procedure: 01/05/22 Preoperative Diagnosis: 1. hematometra 2. pelvic pain Postoperative Diagnosis: same Procedure(s) Performed: Dilation and curettage Anesthesia: MAC Surgeon: Rae Buck Estimated Blood Loss (ml): 5 IV fluids (ml): 300 Urine output (ml): 3 Pathology: other (Endometrial curettings) Condition: stable Disposition: floor Indications for Procedure: Patient presented one year after NovaSure ablation with cyclic pelvic pain and occasional irregular spotting. Ultrasound showed a fluid collection in side of the uterus with possible polyp. I suspect hematometra so consented patient for D&C. Operative Findings: Stenotic cervix. Normal size anteverted uterus. Description of Procedure: She is taken the operating room and general anesthesia was obtained without difficulty. She is prepped and draped in normal sterile fashion dorsal lithotomy position, legs placed in the candycane stirrups. Bladder was drained of all urine. Weighted speculum placed in vagina the anterior lip of cervix was grasped with single-tooth tenaculum. The Mohr dilators were used to open the stenotic cervix. A used to sound and noted that I did perforate the uterus. I was able to feel that this was in the posterior aspect of the uterus. I took the Mohr dilators and 1 more anteriorly. I then sounded the uterus to 7 cm. Sharp Bahena curet was gently used to obtain endometrial curettings. There was some bright red blood and minimal tissue. Hemostasis was present. All instruments removed from the vagina. Patient tolerated procedure well, sponge initial counts correct 2. She was taken to recovery in stable condition.
[2022-01-05] MEDS ORDERED: HYDROmorphone 0.5 MG/0.5 ML SYRINGE IVP ONE (09:12)
[2022-01-05 09:59] VITALS: BP 132/65; PULSE 70
[2022-01-05] MEDS: NON FORMULARY DRUG (Atogepant [Qulipta] 60 MG Tablet) PO SCH (10:46)
[2022-01-05] MEDS: HEPARIN SODIUM,PORCINE/PF 5,000 UNIT/0.5 ML SYRINGE SQ SCH (10:46)
[2022-01-05] MEDS: methocarbamoL 750 MG TAB PO SCH (11:27)
[2022-01-05] MEDS: GABAPENTIN 300 MG CAP PO SCH (11:27)
[2022-01-05] MEDS: buPROPion XL 150 MG TAB.ER.24H PO SCH (11:27)
[2022-01-05] MEDS: PRAVASTATIN SODIUM 20 MG TAB PO SCH (11:27)
[2022-01-05] MEDS: PANTOPRAZOLE 40 MG TABLET PO SCH (11:27)
[2022-01-05] MEDS: METOPROLOL SUCCINATE (ER) 25 MG TAB.ER.24H PO SCH (11:28)
[2022-01-05] MEDS: predniSONE 10 MG TAB PO SCH (11:28)
[2022-01-05] MEDS: HYDROcodone/APAP 10-325MG 1 EACH TAB PO PRN (11:35)
--- NOTE | 2022-01-05 13:47 | P.DS ---
Providers Date of admission: 01/04/22 17:10 Expected date of discharge: 01/05/22 Attending physician: Ramona Wray MD Consults: 01/03/22 20:09 Consult Physician Urgent Consulting Provider: Brii Montes De Oca Consult Reason/Comments: abd pain, hx gastric bypass Do you want consulting provider notified?: Yes 01/04/22 10:44 Consult Physician Urgent Consulting Provider: Rae Buck Consult Reason/Comments: suprapubic pain, irregular vaginal bleeding Do you want consulting provider notified?: Yes Primary care physician: Stated None Hospital Course: Discharge Diagnosis: Suprapubic and left lower quadrant abdominal pain accompanied by irregular vaginal bleeding. Transvaginal ultrasound revealed a mildly heterogenesis uterus with irregular thickened polypoid, vascular, and partially distended endometrium was described as being distended with fluid and hemorrhagic debris, and a 1.5 cm cystic area on right ovary. Patient was evaluated by membership secretary and was taken to the OR for dilation and curettage. Status post D&C patient reports relief of suprapubic and left lower quadrant abdominal pain. History of Sharona-en-Y gastric bypass, patient evaluated by general surgery and cleared from their standpoint with no plans for surgical intervention. History of endometriosis status post uterine ablation. Leukocytosis and thrombocytosis, believed to be reactive, patient with no fever or other signs of illness. Hypertension. Monitor vital signs and continue daily medication regimen with metoprolol Hyperlipidemia. Continue daily medication regimen with pravastatin COPD, not in acute exacerbation. Continue use of daily prednisone and home inhalers Hypothyroidism. Continue daily medication regimen with levothyroxine Anxiety and depression. Continue daily home medication regimen with Wellbutrin Hospital Course: Patient is a very pleasant 46-year-old female with a past medical history hypertension, hyperlipidemia, COPD, hypothyroidism, GERD, endometriosis status post uterine ablation, gastric sleeve and splenectomy, Sharona-en-Y gastric bypass. Patient presented to the emergency department on 01/03/22 with a chief complaint of abdominal pain beginning 3 days prior. Patient reporting suprapubic pain radiating down into left lower quadrant/suprapubic region. She underwent full evaluation in the emergency department. CT abdomen and pelvis with contrast was negative for acute abnormality throughout the abdomen or pelvis revealing clearing of previously reported left pleural effusion and left lower lobe consolidation when compared to previous exam as well as clearing of complex fluid at the tail of the pancreas. Patient was found to have moderate hailey kocytosis with WBC count of 19.3, elevated hemoglobin of 16.2, and elevated platelet count of 548. CMP was unremarkable and urinalysis was negative for blood, protein, or infection. Patient was admitted under our services with consultation to general surgery. Overnight, patient reports developing irregular vaginal bleeding. She reports she has not had any menstrual bleeding in greater than one year since having a uterine ablation and that she continues to have sharp suprapubic and left lower quadrant pains. Patient reports pain is currently being controlled with Dilaudid, but states is not completely relieved. Consult was placed to SHANK SANDER and transvaginal ultrasound completed. Transvaginal ultrasound revealed a mildly heterogenesis uterus with irregular thickened polypoid, vascular, and partially distended endometrium was described as being distended with fluid and hemorrhagic debris, and a 1.5 cm cystic area on right ovary. Patient was evaluated by membership secretary and was taken to the OR for dilation and curettage. Status post D&C patient reports relief of suprapubic and left lower quadrant abdominal pain. She was tolerating a regular diet without any difficulties and denied having any further complaints. Patient is medically stable for discharge at this time. Patient to follow-up outpatient with PCP in 1-2 days and SHANK SANDER in one week. Physical exam: Vital signs reviewed and stable. General: Nontoxic, no distress and appears stated age. Derm: Skin warm and dry, normal coloration for ethnicity. Head: Atraumatic, normocephalic and symmetric. Eyes: EOMs intact, no lid lag, and anicteric sclera Mouth: no lip lesions, mucus membranes moist Cardiovascular: regular rate and rhythm with normal S1S2, no murmur, positive posterior tibial pulses bilaterally, and cap refill < 2 seconds. Lungs: Respirations even, regular, and unlabored on room air. Lungs CTA bilaterally, no rhonchi, no rales, no wheezing, and no accessory muscle usage. Abdominal: soft, no tenderness upon palpation, no guarding, no appreciable organomegaly Ext: ROM intact. No gross muscle atrophy, no edema, no contractures Neuro: Speech clear, face symmetrical and CN II-XII grossly intact with no noted focal neuro deficits Psych: Alert and oriented to person, place, time, and situation. Appropriate and pleasant affect. A total of 33 minutes of time were spent preparing this complex discharge summary. Pt was discharged on 01/05/22 at 12:59 PM. Chidi Mane NP rendered care for this patient independently, reviewed the fin dings and plan as documented in the note above. I did not physically speak with or examine the patient on this date. Patient Condition at Discharge: Stable Plan - Discharge Summary New Discharge Prescriptions: New HYDROcodone/APAP 10-325MG [[place] 10-325] 1 each PO TID PRN #9 tab PRN Reason: Breakthrough Pain Continue Levothyroxine Sodium [Synthroid] 50 mcg PO DAILY ALPRAZolam [Xanax] 0.5 mg PO TID PRN PRN Reason: Anxiety Pantoprazole Sodium [Protonix] 40 mg PO DAILY Multivitamins, Thera [Multivitamin (formulary)] 1 tab PO DAILY Albuterol Nebulized [Ventolin Nebulized] 2.5 mg INHALATION RT-Q4H PRN PRN Reason: Shortness Of Breath Gabapentin [Neurontin] 300 mg PO BID Zinc Sulfate 220 mg PO DAILY Vitamin A [Vitamin A (8,000 Units = 2,400 MCG)] 8,000 unit PO DAILY Metoprolol Succinate (ER) [Toprol XL] 12.5 mg PO DAILY methocarbamoL [Robaxin-750] 750 mg PO BID Meclizine [Antivert] 12.5 mg PO BID PRN PRN Reason: Vertigo Ubrogepant [Ubrelvy] 100 mg PO DAILY PRN PRN Reason: Migraine Headache Promethazine HCl [Phenergan Syrup] 6.25 mg PO HS PRN PRN Reason: Cough Cyclobenzaprine [Flexeril] 10 mg PO W/SUPPER PRN PRN Reason: Muscle Spasm buPROPion HCL [Wellbutrin XL] 150 mg PO BID Albuterol Inhaler [Ventolin Hfa Inhaler] 2 puff INHALATION RT-QID PRN PRN Reason: Shortness Of Breath predniSONE 10 mg PO DAILY Atogepant [Qulipta] 60 mg PO DAILY Pravastatin Sodium [Pravachol] 20 mg PO DAILY [place]/APAP/Caf/Cod 81-567-26-30 [Fioricet w/Cod 56-899-53-30MG] 1 cap PO BID PRN PRN Reason: Migraine Headache Discontinued Hydrocodone/Acetaminophen [[place] 10-325] 1 tab PO TID Discharge Medication List Levothyroxine Sodium [Synthroid] 50 mcg PO DAILY 01/05/14 [History] ALPRAZolam [Xanax] 0.5 mg PO TID PRN 11/24/17 [History] Albuterol Nebulized [Ventolin Nebulized] 2.5 mg INHALATION RT-Q4H PRN 05/28/18 [History] Multivitamins, Thera [Multivitamin (formulary)] 1 tab PO DAILY 05/28/18 [History] Pantoprazole Sodium [Protonix] 40 mg PO DAILY 05/28/18 [History] Gabapentin [Neurontin] 300 mg PO BID 12/05/19 [History] Vitamin A [Vitamin A (8,000 Units = 2,400 MCG)] 8,000 unit PO DAILY 12/19/19 [History] Zinc Sulfate 220 mg PO DAILY 12/19/19 [History] Cyclobenzaprine [Flexeril] 10 mg PO W/SUPPER PRN 10/29/20 [History] Metoprolol Succinate (ER) [Toprol XL] 12.5 mg PO DAILY 10/29/20 [History] methocarbamoL [Robaxin-750] 750 mg PO BID 01/01/21 [History] Meclizine [Antivert] 12.5 mg PO BID PRN 01/23/21 [History] buPROPion HCL [Wellbutrin XL] 150 mg PO BID 01/23/21 [History] Albuterol Inhaler [Ventolin Hfa Inhaler] 2 puff INHALATION RT-QID PRN 08/21/21 [History] Atogepant [Qulipta] 60 mg PO DAILY 08/21/21 [History] Ubrogepant [Ubrelvy] 100 mg PO DAILY PRN 08/21/21 [History] predniSONE 10 mg PO DAILY 08/21/21 [History] [place]/APAP/Caf/Cod 28-234-64-30 [Fioricet w/Cod 04-928-09-30MG] 1 cap PO BID PRN 01/03/22 [History] Pravastatin Sodium [Pravachol] 20 mg PO DAILY 01/03/22 [History] Promethazine HCl [Phenergan Syrup] 6.25 mg PO HS PRN 01/03/22 [History] HYDROcodone/APAP 10-325MG [[place] 10-325] 1 each PO TID PRN #9 tab 01/05/22 [Rx] Follow up Appointment(s)/Referral(s): Melia Gordon PAC [REFERRING] - 1-2 Days Rae Buck DO [Doctor of Osteopathic Medicine] - 01/14/22 9:00 am Patient Instructions/Handouts: Dilation and Curettage (DC) Activity/Diet/Wound Care/Special Instructions: Activity: Restrictions per Gynecology. Activity as tolerated. No sexual activity for one week. Diet: Heart healthy and carb consistent diet. Avoid salts, or foods with hidden salts such as canned or boxed foods and frozen dinners. Extra salt makes your heart work harder and traps the fluid in your body for longer. Special Instructions: Take all of your medications as directed and remember to keep all of your doctor's appointments and follow-up as needed. Thank you for allowing us to participate in your care, it was truly a pleasure having you for our patient!!! Discharge Disposition: HOME SELF-CARE
--- NOTE | 2022-01-05 15:34 | P.PN ---
Subjective Progress Note Date: 01/05/22 CHIEF COMPLAINT: Left lower quadrant abdominal pain HISTORY OF PRESENT ILLNESS: This is a 46-year-old female who presented with left lower quadrant abdominal pain. On she has a history of sleep gastrectomy converted to a gastric bypass at [facility] in 2019. Patient was found have unusual irregular thickening of the endometrium up to 1.6 cm. Uterine cavity has some fluid and hemorrhagic debris. Tissue sampling to exclude endometrial carcinoma was recommended on transvaginal ultrasound. Patient was seen by JACQUARD TWINE POLISHER OPERATOR service and underwent D&C. Patient is tolerating diet. Her abdominal pain has improved. They're planning discharge afternoon. Afebrile. PHYSICAL EXAM: VITAL SIGNS: Reviewed GENERAL: Well-developed in no acute distress. HEENT: No sclera icterus. Extraocular movements grossly intact. Moist buccal mucosa. Head is atraumatic, normocephalic. Hears conversational speech. No nasal drainage. NECK: Supple without lymphadenopathy. CHEST: Non-labored respirations and equal bilateral excursions. CARDIOVASCULAR: Palpable 2+ radial pulses. ABDOMEN: Soft. Nondistended. Nontender. MUSCULOSKELETAL: No clubbing or cyanosis. NEUROLOGIC: No focal or lateralizing signs. Cranial nerves II through XII grossly intact. PSYCH: Appropriate affect. Alert and oriented to person, place and time. SKIN: Well perfused. Good skin turgor. ASSESSMENT: 1. Left lower quadrant abdominal pain likely due to endometriosis. Status post D&C by JACQUARD TWINE POLISHER OPERATOR service 2. History of endometriosis 3. Hypothyroidism 4. Chronic obstructive pulmonary disease 5. Generalized anxiety disorder 6. Gastroesophageal reflux disease 7. Migraines 8. Neuropathy 9. Chronic back pain 10. Hypertensive heart disease 11. Obstructive sleep apnea 12. Seizure disorder 13. Endometriosis 14. Plantar fasciitis 15. Motion sickness 16. Status post sleeve gastrectomy with leak 17. History of intra-abdominal infection 18. Zinc deficiency 19. Vitamin A deficiency 20. Inadequate protein intake 21. Weight gain follow bariatric procedure 22. Panniculitis 23. Gallstones 24. Body mass index of 47.1, initial to 22.7 25. Persistent leukocytosis PLAN: -No intervention planned per general surgical standpoint -Plan of care per JACQUARD TWINE POLISHER OPERATOR service regarding the endometriosis Physician Machine Stripper note has been reviewed by physician. Signing provider agrees with the documented findings, assessment, and plan of care. As above. Follow up with gynecology for pathology. No acute general surgical intervention. Agreeable with discharge. Objective - Vital Signs Vital signs: Vital Signs Temp 96.9 F L 01/05/22 08:55 Pulse 70 01/05/22 09:40 Resp 16 01/05/22 09:40 BP 132/65 01/05/22 09:40 Pulse Ox 96 01/05/22 09:40 FiO2 Intake & Output 01/04/22 01/05/22 01/05/22 18:59 06:59 18:59 Intake Total 360 550 Output Total 8 Balance 360 542 Weight 54.431 kg Intake: IV 550 Oral 360 Output: Urine 3 Estimated Blood Loss 5 Other: # Voids 1 2 - Labs CBC & Chem 7: 01/04/22 05:35 01/04/22 05:35 Labs: Microbiology - Last 24 Hours (Table) 01/03/22 19:45 Blood Culture - Preliminary Blood No Growth after 24 hours 01/03/22 19:29 Blood Culture - Preliminary Blood No Growth after 24 hours
== END 2022-01-05 14:56 | disposition home or self-care (01) ==
LOC: EC 13:51 → 6NMEDSUR 19:58 → INTOOBSV 01-04 17:10 → OBSVTOIN 01-04 17:10 → UNDODISIN 01-05 14:56
PROVIDERS: ADMIT Internal Medicine; ATTEND Internal Medicine
DX: N88.2 Stricture and stenosis of cervix uteri (principal); E78.5 Hyperlipidemia, unspecified; J44.9 Chronic obstructive pulmonary disease, unspecified; D72.829 Elevated white blood cell count, unspecified; E03.9 Hypothyroidism, unspecified; F32.A Depression, unspecified; K21.9 Gastro-esophageal reflux disease without esophagitis; E66.01 Morbid (severe) obesity due to excess calories; F41.1 Generalized anxiety disorder; D75.839 Thrombocytosis, unspecified; E50.9 Vitamin A deficiency, unspecified; E60 Dietary zinc deficiency; G40.909 Epilepsy, unspecified, not intractable, without status epilepticus; G43.909 Migraine, unspecified, not intractable, without status migrainosus; G47.33 Obstructive sleep apnea (adult) (pediatric); G62.9 Polyneuropathy, unspecified; G89.29 Other chronic pain; I11.9 Hypertensive heart disease without heart failure; J30.9 Allergic rhinitis, unspecified; J84.9 Interstitial pulmonary disease, unspecified; K80.20 Calculus of gallbladder without cholecystitis without obstruction; M19.90 Unspecified osteoarthritis, unspecified site; M54.9 Dorsalgia, unspecified; M72.2 Plantar fascial fibromatosis; M76.60 Achilles tendinitis, unspecified leg; M79.3 Panniculitis, unspecified; N80.0 Endometriosis of uterus; N93.9 Abnormal uterine and vaginal bleeding, unspecified; Z98.84 Bariatric surgery status; Z68.42 Body mass index [BMI] 45.0-49.9, adult; Z79.890 Hormone replacement therapy; Z79.899 Other long term (current) drug therapy; Z87.891 Personal history of nicotine dependence; Z90.710 Acquired absence of both cervix and uterus; Z90.81 Acquired absence of spleen; Z80.3 Family history of malignant neoplasm of breast; Z82.3 Family history of stroke; Z82.49 Family history of ischemic heart disease and other diseases of the circulatory system; Z82.5 Family history of asthma and other chronic lower respiratory diseases; Z71.9 Counseling, unspecified; T75.3XXA Motion sickness, initial encounter
CPT/HCPCS: 58120; 96376 ×2; 96366 ×2; 96361; 96365; 96375; 99285; 36415; 94640; 81025; 88305; 80053; 80048; 82150; 83605; 83690; 85025 ×2; 86140; 81003; 87040; 74018; 76830; 74177; G0378 ×3; J2543 ×3; J2250; J2405 ×2; J3010; J1170 ×3; J1885 ×2; J2704; J7512 ×2; Q9967; J1644; J2001; 96374

== ENCOUNTER 2022-01-07 13:32 | Emergency (ER) | payer BC, MEDICARE ==
[2022-01-07] MEDS ORDERED: SODIUM CHLORIDE 0.9% 1,000 ML IV STA (14:22)
[2022-01-07] MEDS ORDERED: ONDANSETRON 4 MG/2 ML VIAL IVP STA (14:22)
[2022-01-07] MEDS ORDERED: HYDROmorphone 0.5 MG/0.5 ML SYRINGE IVP STA ×2 (14:22→18:23)
[2022-01-07 14:49] LABS: Basophils # (A) 0.2 k/uL (0-0.2); Basophils % (A) 1 %; Eosinophils # (A) 0.6 k/uL (0-0.7); Eosinophils % (A) 4 %; HCT 48.9 % (34.0-46.0); HGB 15.8 gm/dL (11.4-16.0); Lymphocytes # (A) 2.4 k/uL (1.0-4.8); Lymphocytes % (A) 14 %; MCH 33.6 pg (25.0-35.0); MCHC 32.3 g/dL (31.0-37.0); MCV 103.9 fL (80.0-100.0); Macrocytosis Slight; Monocytes % (A) 6 %; Neutrophils # (A) 12.3 k/uL (1.3-7.7); Neutrophils % (A) 73 %; Platelet Count 554 k/uL (150-450); RDW 12.2 % (11.5-15.5); WBC 16.8 k/uL (3.8-10.6)
[2022-01-07 15:08] LABS: ALT 42 U/L (4-34); AST 41 U/L (14-36); African American GFR (CKD) >90 (>60 ml/min/1.73 sqM); Albumin 4.2 g/dL (3.5-5.0); Alkaline Phosphatase 108 U/L (38-126); Anion Gap 9 mmol/L; Blood Urea Nitrogen 9 mg/dL (7-17); Calcium 9.1 mg/dL (8.4-10.2); Carbon Dioxide 30 mmol/L (22-30); Chloride 98 mmol/L (98-107); Glucose 98 mg/dL (74-99); Non-African American GFR(CKD) >90 (>60 ml/min/1.73 sqM); Potassium 4.2 mmol/L (3.5-5.1); Sodium 137 mmol/L (137-145); Total Bilirubin 0.5 mg/dL (0.2-1.3)
--- NOTE | 2022-01-07 15:10 | ED ---
Female Urogenital HPI - General Chief complaint: Abdominal Pain Stated complaint: ABD pain Time Seen by Provider: 01/07/22 14:08 Source: patient, RN notes reviewed Mode of arrival: ambulatory Limitations: no limitations - History of Present Illness Initial comments: This is a 46 year old female who presents to the emergency department for lower abdominal pain and vaginal bleeding. States that 2 days ago she had a D&C with Dr. Buck. Upon review of her chart, this was done due to hematometra and thickened endometrium. Biopsy was obtained. Patient reported feeling much better following the procedure in terms of the left lower quadrant pain. Pat ient states that the day after surgery, the pain returned in the left lower quadrant as well as moderate vaginal bleeding. The pain feels just like it did before surgery. Also states that she has not had a bowel movement in 4 days. She's been taking Tylenol, ibuprofen, and Millsap with little to no relief. Denies any fevers, chills, sore throat, cough, dyspnea, chest pain, palpitations, nausea, vomiting, diarrhea, back pain, or headaches. MD Complaint: vaginal bleeding, pelvic pain Onset/Timin -: days(s) - Related Data Home Medications Medication Instructions Recorded Confirmed Levothyroxine Sodium [Synthroid] 50 mcg PO DAILY 01/05/14 01/07/22 ALPRAZolam [Xanax] 0.5 mg PO TID PRN 11/24/17 01/07/22 Albuterol Nebulized [Ventolin 2.5 mg INHALATION RT-Q4H PRN 05/28/18 01/07/22 Nebulized] Multivitamins, Thera [Multivitamin 1 tab PO DAILY 05/28/18 01/07/22 (formulary)] Pantoprazole Sodium [Protonix] 40 mg PO DAILY 05/28/18 01/07/22 Gabapentin [Neurontin] 300 mg PO BID 12/05/19 01/07/22 Vitamin A [Vitamin A (8,000 Units 8,000 unit PO DAILY 12/19/19 01/07/22 = 2,400 MCG)] Zinc Sulfate 220 mg PO DAILY 12/19/19 01/07/22 Cyclobenzaprine [Flexeril] 10 mg PO W/SUPPER PRN 10/29/20 01/07/22 Metoprolol Succinate (ER) [Toprol 12.5 mg PO DAILY 10/29/20 01/07/22 XL] methocarbamoL [Robaxin-750] 750 mg PO BID 01/01/21 01/07/22 Meclizine [Antivert] 12.5 mg PO BID PRN 01/23/21 01/07/22 buPROPion HCL [Wellbutrin XL] 150 mg PO BID 01/23/21 01/07/22 Albuterol Inhaler [Ventolin Hfa 2 puff INHALATION RT-QID PRN 08/21/21 01/07/22 Inhaler] Atogepant [Qulipta] 60 mg PO DAILY 08/21/21 01/07/22 Ubrogepant [Ubrelvy] 100 mg PO DAILY PRN 08/21/21 01/07/22 predniSONE 10 mg PO DAILY 08/21/21 01/07/22 Pravastatin Sodium [Pravachol] 20 mg PO DAILY 01/03/22 01/07/22 Promethazine HCl [Phenergan Syrup] 6.25 mg PO HS PRN 01/03/22 01/07/22 HYDROcodone/APAP 10-325MG [[place] 1 tab PO TID 01/07/22 01/07/22 10-325] Previous Rx's Medication Instructions Recorded Celecoxib 400 mg PO QAM PRN #15 capsule 01/07/22 Famotidine 40 mg PO QAM #15 tablet 01/07/22 HYDROcodone/APAP 10-325MG [[place] 1 tab PO Q6HR PRN 3 Days #12 tab 01/07/22 10-325] predniSONE [Deltasone] 20 mg PO BID PRN #10 tab 01/07/22 Allergies Allergy/AdvReac Type Severity Reaction Status Date / Time bee venom protein (honey bee) Allergy SWELLING , Verified 01/07/22 16:12 AND ITCHING nitrofurantoin Allergy Rash/Hives Verified 01/07/22 16:12 [From Macrobid] nitrofurantoin Allergy Rash/Hives Verified 01/07/22 16:12 macrocrystalline [From Macrobid] moxifloxacin [From Avelox] AdvReac Nausea & Verified 01/07/22 16:12 Vomiting seasonal allergies Allergy Unknown Uncoded 01/07/22 16:12 Review of Systems ROS Statement: Those systems with pertinent positive or pertinent negative responses have been documented in the HPI. ROS Other: All systems not noted in ROS Statement are negative. Past Medical History Past Medical History: Asthma, COPD, GERD/Reflux, Hypertension, Musculoskeletal Disorder, Neurologic Disorder, Sleep Apnea/CPAP/BIPAP, Thyroid Disorder Additional Past Medical History / Comment(s): smoking-related interstitial lung disease, doesn't use CPAP, history of seizure at the age of 16 related to med. to stop breast milk, endometriosis, chronic back pain, plantar fasciitis, hx. of Achilles tendinitis, probably antibiotic induced. She also has history of hypothyroidism, ALLERGIC rhinitis, migraines, current steroids for wheezing & cough, uses oxygen prn, recent iron infusion History of Any Multi-Drug Resistant Organisms: None Reported Past Surgical History: Bariatric Surgery, Tubal Ligation, Uterine Ablation Additional Past Surgical History / Comment(s): LEEP PROCEDURE X 2, EGD, BACK INJECTIONS FOR PAIN. The patient has also undergone thoracic/thoracoscopic wedge biopsy of the right lung. 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; R and Y bypass at [facility] 2019,TRACHEOTOMY-RESOLVED Past Anesthesia/Blood Transfusion Reactions: Motion Sickness Additional Past Anesthesia/Blood Transfusion Reaction / Comment(s): no problem w/blood transfusion Past Psychological History: Anxiety Smoking Status: Former smoker Past Alcohol Use History: None Reported Past Drug Use History: None Reported - Past Family History Sister(s) Family Medical History: Cancer Mother Family Medical History: Cancer Additional Family Medical History / Comment(s): breast cancer Father Family Medical History: COPD, CVA/TIA, Myocardial Infarction ([place]) Additional Family Medical History / Comment(s): HEART PROBLEMS, AT AGE 64 General Exam Limitations: no limitations General appearance: alert, in distress Head exam: Present: atraumatic, normocephalic, normal inspection Respiratory exam: Present: normal lung sounds bilaterally. Absent: respiratory distress, wheezes, rales, rhonchi, stridor Cardiovascular Exam: Present: regular rate, normal rhythm, normal heart sounds. Absent: systolic murmur, diastolic murmur, rubs, gallop, clicks GI/Abdominal exam: Present: soft, tenderness (LLQ), normal bowel sounds Neurological exam: Present: alert, oriented X3, CN II-XII intact Psychiatric exam: Present: normal affect, normal mood Skin exam: Present: warm, dry, intact, normal color. Absent: rash Course Vital Signs 01/07/22 01/07/22 13:48 18:47 Temperature 96.8 F L 98.9 F Pulse Rate 93 94 Respiratory 20 18 Rate Blood Pressure 146/79 134/81 O2 Sat by Pulse 97 98 Oximetry Medical Decision Making - Medical Decision Making This is a 46-year-old female who presents to the emergency department with pelvic pain and vaginal bleeding. Lab work was nonactionable. Patient has leukocytosis, which is a chronic finding for the patient. She has no evidence of acute blood loss. Urinalysis is not consistent with infection. Ultrasound obtained, revealing a heterogeneous complex area measuring 3 cm in the frontal aspect of the central uterus. A portion of this is noted to be related to hemorrhagic debris. Findings are very similar to the preoperative US from a couple of days ago. I spoke with Dr. Devi, [employer] [facility]. She advised that the patient will most likely end up needing a hysterectomy, however there is nothing that needs to be done acutely. She advised pain control and having the patient follow up with Dr. Buck. Pain management options were discussed with the patient. Given her history of gastric bypass, she is unable to use NSAIDs with any regularity. We discussed Cason 2 inhibitors such as Mobic or Celebrex. Sta dung that the Mobic has not been effective for her in the past. She is interested in trying a course of Celebrex. Rx for Celebrex provided. She has also tolerated prednisone without any difficulty. Prescription for short course of prednisone was provided as well. She is instructed to start with either the Celebrex or prednisone and to take it with the Pepcid, which was prescribed as well. If one of the medications is not effective, she will discontinue its use and try the other one. Stressed the importance of not taking them together. The Pepcid and using a Cason 2 inhibitor will reduce the risk of ulcers and bleeding, however this is still a possibility and I did thoroughly review this w ith the patient, who expresses understanding and except these risks. She is already taking Protonix and will continue to do so. Advised discontinuing medication immediately if she develops any abdominal pain or blood in the stool. Refill on the Millsap was provided as well to get her through until she is able to follow up with Dr. Buck. Advised she contact the office tomorrow to see if she can get a sooner appointment. I did also advise treating the constipation, which may be a contributing factor to her pain. Advised [id number] management such as MiraLAX or Colace and increasing fiber and water intake. Return precautions reviewed in depth, the patient is instructed to return to the emergency department with any new, worsening, or concerning symptoms. Patient verbalized understanding. This case was discussed in detail with the attending ED physician. Presentation, findings, and treatment plan discussed in detail as well. - Lab Data Result diagrams: 01/07/22 14:38 01/07/22 14:38 Lab Results 01/07/22 01/07/22 01/07/22 Range/Units 14:38 14:38 16:59 WBC 16.8 H (3.8-10.6) k/uL RBC 4.70 (3.80-5.40) m/uL Hgb 15.8 (11.4-16.0) gm/dL Hct 48.9 H (34.0-46.0) % MCV 103.9 H (80.0-100.0) fL MCH 33.6 (25.0-35.0) pg MCHC 32.3 (31.0-37.0) g/dL RDW 12.2 (11.5-15.5) % Plt Count 554 H (150-450) k/uL MPV 7.0 Neutrophils % 73 % Lymphocytes % 14 % Monocytes % 6 % Eosinophils % 4 % Basophils % 1 % Neutrophils # 12.3 H (1.3-7.7) k/uL Lymphocytes # 2.4 (1.0-4.8) k/uL Monocytes # 1.0 (0-1.0) k/uL Eosinophils # 0.6 (0-0.7) k/uL Basophils # 0.2 (0-0.2) k/uL Macrocytosis Slight Sodium 137 (137-145) mmol/L Potassium 4.2 (3.5-5.1) mmol/L Chloride 98 (98-107) mmol/L Carbon Dioxide 30 (22-30) mmol/L Anion Gap 9 mmol/L BUN 9 (7-17) mg/dL Creatinine 0.54 (0.52-1.04) mg/dL Est GFR (CKD-EPI)AfAm >90 (>60 ml/min/1.73 sqM) Est GFR (CKD-EPI)NonAf >90 (>60 ml/min/1.73 sqM) Glucose 98 (74-99) mg/dL Calcium 9.1 (8.4-10.2) mg/dL Total Bilirubin 0.5 (0.2-1.3) mg/dL AST 41 H (14-36) U/L ALT 42 H (4-34) U/L Alkaline Phosphatase 108 (38-126) U/L Total Protein 7.0 (6.3-8.2) g/dL Albumin 4.2 (3.5-5.0) g/dL Urine Color Colorless Urine Appearance Clear (Clear) Urine pH 6.5 (5.0-8.0) Ur Specific [place] 1.005 (1.001-1.035) Urine Protein Negative (Negative) Urine Glucose (UA) Negative (Negative) Urine Ketones Negative (Negative) Urine Blood Moderate H (Negative) Urine Nitrite Negative (Negative) Urine Bilirubin Negative (Negative) Urine Urobilinogen <2.0 (<2.0) mg/dL Ur Leukocyte Esterase Negative (Negative) Urine RBC <1 (0-5) /hpf Ur Squamous Epith Cells 3 (0-4) /hpf Urine Bacteria Rare H (None) /hpf Hyaline Casts 1 (0-2) /lpf - Radiology Data Radiology results: report reviewed, image reviewed Disposition Clinical Impression: LLQ pain, Constipation Disposition: HOME SELF-CARE Instructions (If sedation given, give patient instructions): Constipation (ED), High Fiber Diet (ED) Additional Instructions: Return to the emergency department with any new, worsening, or concerning symptoms. Start by trying the prednisone or Celebrex. Do not take these together. If one of the medications isn't effective, try the other one. Both of the medications should be taken with the Pepcid. If you get increased abdominal pain or blood in your stool with any of those medicines, make sure you stop it immediately. Continue to use iokk-[id number]-[id number] constipation medication such as MiraLAX or Colace. If those are not effective, you may need to try an enema. Increase your dietary fiber and water intake. Contact Dr. Buck's office tomorrow and see if you can get a sooner follow-up appointment. Prescriptions: Celecoxib 400 mg PO QAM PRN #15 capsule PRN Reason: Pain predniSONE [Deltasone] 20 mg PO BID PRN #10 tab PRN Reason: Pain Famotidine 40 mg PO QAM #15 tablet HYDROcodone/APAP 10-325MG [[place] 10-325] 1 tab PO Q6HR PRN 3 Days #12 tab PRN Reason: Pain Is patient prescribed a controlled substance at d/c from ED?: Yes If prescribed controlled substance>3 days was MAPS reviewed?: Prescribed <3 Days Referrals: Keven Kebede MD [Primary Care Provider] - 1-2 days Rae Buck DO [Doctor of Osteopathic Medicine] - 1-2 days
--- NOTE | 2022-01-07 16:23 | US ---
EXAMINATION TYPE: US pelvic complete DATE OF EXAM: 01/07/2022 COMPARISON: 01/04/2022 CLINICAL HISTORY: 46 year old pelvic pain after D&C, 2 days ago. Hx ablation x 1.5 years ago. TECHNIQUE: Transabdominal (TA). Transabdominal sonographic images of the pelvis were acquired. Tra nsvaginal deferred due to recent D&C surgery Date of LMP: Unknown EXAM MEASUREMENTS: Uterus: 8.4 x 4.6 x 4.3 cm Right Ovary: 3.3 x 2.2 x 2.1 cm Left Ovary: 2.3 x 1.7 x 1.3 cm 1. Uterus: Anteverted. The myometrium is heterogenous 2. Endometrium: In endometrial area, complex area seen = 3.0 x 2.9 x 2.2 cm 3. Right Ovary: Follicle = 1.9 cm. 4. Left Ovary: follicles seen 5. Bilateral Adnexa: wnl 6. Posterior cul-de-sac: no free fluid IMPRESSION: 1. Heterogeneous complex area measuring 3.0 cm within the fundal aspect of the central uterus. Underl karlie polyp or mucosal lesion not excluded. A portion of this appears to represent fluid, probably hem orrhagic debris within the uterine cavity just adjacent. 2. A 1.9 cm dominant follicle right ovary.
[2022-01-07 17:12] LABS: Appearance,Urine Clear (Clear); Bacteria,Urine Rare /hpf; Bilirubin,Urine Negative (Negative); Blood,Urine Moderate (Negative); Color,Urine Colorless; Glucose,Urine (UA) Negative (Negative); Hyaline Casts,Urine 1 /lpf (0-2); Ketones,Urine Negative (Negative); Leukocyte Esterase,Urine Negative (Negative); Nitrite,Urine Negative (Negative); PH, Urine 6.5 (5.0-8.0); Protein,Urine Negative (Negative); RBC,Urine <1 /hpf (0-5); Specific Gravity,Urine 1.005 (1.001-1.035); Squamous Epithelial Cell,Urine 3 /hpf (0-4); Urobilinogen,Urine <2.0 mg/dL (<2.0)
[2022-01-07 18:48] VITALS: BP 134/81; PULSE 94; RESP 18; TEMP 98.9
== END 2022-01-07 18:48 | disposition home or self-care (01) ==
LOC: EC 13:32
DX: R10.32 Left lower quadrant pain (principal); K59.00 Constipation, unspecified; K21.9 Gastro-esophageal reflux disease without esophagitis; J44.9 Chronic obstructive pulmonary disease, unspecified; I10 Essential (primary) hypertension; E03.9 Hypothyroidism, unspecified; F41.9 Anxiety disorder, unspecified; Z87.891 Personal history of nicotine dependence; Z91.030 Bee allergy status; Z88.1 Allergy status to other antibiotic agents; Z91.048 Other nonmedicinal substance allergy status; Z79.890 Hormone replacement therapy; Z79.51 Long term (current) use of inhaled steroids; Z79.899 Other long term (current) drug therapy
CPT/HCPCS: 36415; 80053; 85025; 81001; 76856; 99284; 96374; 96375; 96376; 96361 ×4; J2405; J1170

== ENCOUNTER 2022-01-10 12:46 | Emergency (ER) | payer BC, MEDICARE ==
[2022-01-10 12:57] VITALS: TEMP 98.3
[2022-01-10] MEDS ORDERED: KETOROLAC 15 MG/ML 1 ML VIAL IVP STA (13:39)
[2022-01-10] MEDS ORDERED: SODIUM CHLORIDE 0.9% 500 ML 500 ML IV STA (13:39)
--- NOTE | 2022-01-10 13:48 | ED ---
Abdominal Pain HPI - General Chief Complaint: Abdominal Pain Stated Complaint: Abd and back pain Time Seen by Provider: 01/10/22 13:30 Source: patient, RN notes reviewed, old records reviewed Mode of arrival: ambulatory Limitations: no limitations - History of Present Illness Initial Comments: This is a nontoxic-appearing 46-year-old female that presents ambulatory to the emergency room with continued abdominal pain and low back pain. Patient states she underwent a D&C with Dr. Buck 5 days ago however she continues to have the abdominal discomfort. She is scheduled with a follow-up visit with Dr. Buck on the of this month to discuss hysterectomy. She states that she has not had a bowel movement but did take a stool softener with no relief of pain. She denies any fevers, does state she has nausea, no vomiting. She does have a hist ory of COPD, asthma, hypertension and endometriosis. Gastric bypass 3 years ago. MD Complaint: abdominal pain, other (low back pain) -: week(s) (started first week of December) Location: diffuse Radiation: other (low back) Severity scale (1-10): 6 Quality: aching Consistency: constant Associated Symptoms: nausea - Related Data Patient : No Home Medications Medication Instructions Recorded Confirmed Levothyroxine Sodium [Synthroid] 50 mcg PO DAILY 01/05/14 01/07/22 ALPRAZolam [Xanax] 0.5 mg PO TID PRN 11/24/17 01/07/22 Albuterol Nebulized [Ventolin 2.5 mg INHALATION RT-Q4H PRN 05/28/18 01/07/22 Nebulized] Multivitamins, Thera [Multivitamin 1 tab PO DAILY 05/28/18 01/07/22 (formulary)] Pantoprazole Sodium [Protonix] 40 mg PO DAILY 05/28/18 01/07/22 Gabapentin [Neurontin] 300 mg PO BID 12/05/19 01/07/22 Vitamin A [Vitamin A (8,000 Units 8,000 unit PO DAILY 12/19/19 01/07/22 = 2,400 MCG)] Zinc Sulfate 220 mg PO DAILY 12/19/19 01/07/22 Cyclobenzaprine [Flexeril] 10 mg PO W/SUPPER PRN 10/29/20 01/07/22 Metoprolol Succinate (ER) [Toprol 12.5 mg PO DAILY 10/29/20 01/07/22 XL] methocarbamoL [Robaxin-750] 750 mg PO BID 01/01/21 01/07/22 Meclizine [Antivert] 12.5 mg PO BID PRN 01/23/21 01/07/22 buPROPion HCL [Wellbutrin XL] 150 mg PO BID 01/23/21 01/07/22 Albuterol Inhaler [Ventolin Hfa 2 puff INHALATION RT-QID PRN 08/21/21 01/07/22 Inhaler] Atogepant [Qulipta] 60 mg PO DAILY 08/21/21 01/07/22 Ubrogepant [Ubrelvy] 100 mg PO DAILY PRN 08/21/21 01/07/22 predniSONE 10 mg PO DAILY 08/21/21 01/07/22 Pravastatin Sodium [Pravachol] 20 mg PO DAILY 01/03/22 01/07/22 Promethazine HCl [Phenergan Syrup] 6.25 mg PO HS PRN 01/03/22 01/07/22 HYDROcodone/APAP 10-325MG [[place] 1 tab PO TID 01/07/22 01/07/22 10-325] Previous Rx's Medication Instructions Recorded Celecoxib 400 mg PO QAM PRN #15 capsule 01/07/22 Famotidine 40 mg PO QAM #15 tablet 01/07/22 HYDROcodone/APAP 10-325MG [[place] 1 tab PO Q6HR PRN 3 Days #12 tab 01/07/22 10-325] predniSONE [Deltasone] 20 mg PO BID PRN #10 tab 01/07/22 Allergies Allergy/AdvReac Type Severity Reaction Status Date / Time bee venom protein (honey bee) Allergy SWELLING , Verified 01/10/22 12:57 AND ITCHING nitrofurantoin Allergy Rash/Hives Verified 01/10/22 12:57 [From Macrobid] nitrofurantoin Allergy Rash/Hives Verified 01/10/22 12:57 macrocrystalline [From Macrobid] moxifloxacin [From Avelox] AdvReac Nausea & Verified 01/10/22 12:57 Vomiting seasonal allergies Allergy Unknown Uncoded 01/10/22 12:57 Review of Systems ROS Statement: Those systems with pertinent positive or pertinent negative responses have been documented in the HPI. ROS Other: All systems not noted in ROS Statement are negative. Past Medical History Past Medical History: Asthma, COPD, GERD/Reflux, Hypertension, Musculoskeletal Disorder, Neurologic Disorder, Sleep Apnea/CPAP/BIPAP, Thyroid Disorder Additional Past Medical History / Comment(s): smoking-related interstitial lung disease, doesn't use CPAP, history of seizure at the age of 16 related to med. to stop breast milk, endometriosis, chronic back pain, plantar fasciitis, hx. of Achilles tendinitis, probably antibiotic induced. She also has history of hypothyroidism, ALLERGIC rhinitis, migraines, current steroids for wheezing & cough, uses oxygen prn, recent iron infusion History of Any Multi-Drug Resistant Organisms: None Reported Past Surgical History: Bariatric Surgery, Tubal Ligation, Uterine Ablation Additional Past Surgical History / Comment(s): LEEP PROCEDURE X 2, EGD, BACK INJECTIONS FOR PAIN. The patient has also undergone thoracic/thoracoscopic wedge biopsy of the right lung. 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; R and Y bypass at [facility] 2019,TRACHEOTOMY-RESOLVED Past Anesthesia/Blood Transfusion Reactions: Motion Sickness Additional Past Anesthesia/Blood Transfusion Reaction / Comment(s): no problem w/blood transfusion Past Psychological History: Anxiety Smoking Status: Former smoker Past Alcohol Use History: None Reported Past Drug Use History: None Reported - Past Family History Sister(s) Family Medical History: Cancer Mother Family Medical History: Cancer Additional Family Medical History / Comment(s): breast cancer Father Family Medical History: COPD, CVA/TIA, Myocardial Infarction ([place]) Additional Family Medical History / Comment(s): HEART PROBLEMS, AT AGE 64 General Exam Limitations: no limitations General appearance: alert, in no apparent distress Head exam: Present: atraumatic Respiratory exam: Present: normal lung sounds bilaterally. Absent: respiratory distress, wheezes, rales, rhonchi, stridor, chest wall tenderness, accessory muscle use Cardiovascular Exam: Present: regular rate GI/Abdominal exam: Present: soft, normal bowel sounds. Absent: distended, tenderness, guarding, rebound, rigid Extremities exam: Present: normal inspection, normal capillary refill. Absent: pedal edema Back exam: Present: normal inspection, full ROM, paraspinal tenderness (Lumbar bilateral). Absent: tenderness, CVA tenderness (R), CVA tenderness (L), rash noted Neurological exam: Present: alert, oriented X3 Psychiatric exam: Present: normal affect, normal mood Skin exam: Present: warm, dry, normal color. Absent: cyanosis, diaphoretic, petechiae, pallor Course Vital Signs 01/10/22 01/10/22 12:54 15:19 Temperature 98.3 F 98.3 F Pulse Rate 99 88 Respiratory 16 18 Rate Blood Pressure 125/84 115/75 O2 Sat by Pulse 98 96 Oximetry Medical Decision Making - Medical Decision Making Patient has been seen multiple times in the emergency room for persistent abdominal pain. CT was performed on January 03 showing no abnormalities. She did have a D&C with Dr. Buck on January 05 for endometrial hematoma. She was seen again on January 07 and prescribed Celebrex, Pepcid, Prednisone and [place] 10. She denies any fevers, has nausea without vomiting or diarrhea. Abdomen is soft nontender. She denies any vaginal bleeding at this time. Patient has seen Dr. Vasquez regarding elevated white blood cell count this year, he stated may be related to her MS but is not concerned. KUB x-ray shows postsurgical changes overlying the left sacrum and left hemipelvis no other suspicious abdominal or pelvic calcifications are seen. No evidence of free air or obstruction. There remains a persistent leukocytosis, hemoglobin and hematocrit are stable electrolytes are unremarkable. Urinalysis is clear infection. She was instructed to discontinue the Celebrex since she is taking prednisone 20 mg twice a day which may be cause of stomach pain. Vital signs are stable She will be referred back to Dr. Buck as scheduled on the to return to the emergency room with any new or concerning symptoms. Case discussed with Dr. Sandoval - Lab Data Result diagrams: 01/10/22 14:02 01/10/22 14:02 Lab Results 01/10/22 01/10/22 01/10/22 Range/Units 14:02 14:02 14:23 WBC 19.7 H (3.8-10.6) k/uL RBC 4.70 (3.80-5.40) m/uL Hgb 15.4 (11.4-16.0) gm/dL Hct 47.3 H (34.0-46.0) % MCV 100.7 H (80.0-100.0) fL MCH 32.9 (25.0-35.0) pg MCHC 32.6 (31.0-37.0) g/dL RDW 12.5 (11.5-15.5) % Plt Count 598 H (150-450) k/uL MPV 7.7 Neutrophils % 88 % Lymphocytes % 6 % Monocytes % 3 % Eosinophils % 1 % Basophils % 1 % Neutrophils # 17.4 H (1.3-7.7) k/uL Lymphocytes # 1.2 (1.0-4.8) k/uL Monocytes # 0.6 (0-1.0) k/uL Eosinophils # 0.2 (0-0.7) k/uL Basophils # 0.2 (0-0.2) k/uL Sodium 136 L (137-145) mmol/L Potassium 4.9 (3.5-5.1) mmol/L Chloride 100 (98-107) mmol/L Carbon Dioxide 27 (22-30) mmol/L Anion Gap 9 mmol/L BUN 16 (7-17) mg/dL Creatinine 0.56 (0.52-1.04) mg/dL Est GFR (CKD-EPI)AfAm >90 (>60 ml/min/1.73 sqM) Est GFR (CKD-EPI)NonAf >90 (>60 ml/min/1.73 sqM) Glucose 128 H (74-99) mg/dL Calcium 9.0 (8.4-10.2) mg/dL Total Bilirubin 0.5 (0.2-1.3) mg/dL AST 32 (14-36) U/L ALT 27 (4-34) U/L Alkaline Phosphatase 100 (38-126) U/L Total Protein 7.0 (6.3-8.2) g/dL Albumin 4.2 (3.5-5.0) g/dL Urine Color Colorless Urine Appearance Clear (Clear) Urine pH 6.0 (5.0-8.0) Ur Specific [place] 1.006 (1.001-1.035) Urine Protein Negative (Negative) Urine Glucose (UA) Negative (Negative) Urine Ketones Negative (Negative) Urine Blood Negative (Negative) Urine Nitrite Negative (Negative) Urine Bilirubin Negative (Negative) Urine Urobilinogen <2.0 (<2.0) mg/dL Ur Leukocyte Esterase Negative (Negative) Disposition Clinical Impression: Abdominal pain, Back pain Disposition: HOME SELF-CARE Condition: Good Instructions (If sedation given, give patient instructions): Abdominal Pain (ED), Back Pain (ED) Additional Instructions: Stop taking Celebrex however continue the Pepcid and prednisone as previously prescribed. Keep your appointment with Dr. Buck January 14 for continuation of care. Return to emergency department with any new or concerning symptoms. Is patient prescribed a controlled substance at d/c from ED?: No Referrals: Keven Kebede MD [Primary Care Provider] - 1-2 days Rae Buck DO [Doctor of Osteopathic Medicine] - 1-2 days Time of Disposition: 14:59
[2022-01-10 14:10] LABS: Basophils # (A) 0.2 k/uL (0-0.2); Basophils % (A) 1 %; Eosinophils # (A) 0.2 k/uL (0-0.7); Eosinophils % (A) 1 %; HCT 47.3 % (34.0-46.0); HGB 15.4 gm/dL (11.4-16.0); Lymphocytes # (A) 1.2 k/uL (1.0-4.8); Lymphocytes % (A) 6 %; MCH 32.9 pg (25.0-35.0); MCHC 32.6 g/dL (31.0-37.0); MCV 100.7 fL (80.0-100.0); Mean Platelet Volume 7.7; Monocytes # (A) 0.6 k/uL (0-1.0); Monocytes % (A) 3 %; Neutrophils # (A) 17.4 k/uL (1.3-7.7); Neutrophils % (A) 88 %; Platelet Count 598 k/uL (150-450); RDW 12.5 % (11.5-15.5); WBC 19.7 k/uL (3.8-10.6)
--- NOTE | 2022-01-10 14:24 | XR ---
KUB HISTORY: Abdominal pain COMPARISON: 01/03/2022. TECHNIQUE: 2 upright views the abdomen were obtained. FINDINGS: The lung bases are clear. There is no free air beneath the diaphragm. There changes involving the stomach. As the paucity of abdominal gas the bowel gas pattern is nonspecific and there is no evidence of obst ruction. There are surgical clips overlying the left sacrum and left hemipelvis. No suspicious abdomi nal or pelvic calcification is seen. The osseous structures are grossly intact. IMPRESSION: Postsurgical changes but no evidence of free air or obstruction.
[2022-01-10 14:27] LABS: ALT 27 U/L (4-34); AST 32 U/L (14-36); African American GFR (CKD) >90 (>60 ml/min/1.73 sqM); Albumin 4.2 g/dL (3.5-5.0); Alkaline Phosphatase 100 U/L (38-126); Anion Gap 9 mmol/L; Blood Urea Nitrogen 16 mg/dL (7-17); Carbon Dioxide 27 mmol/L (22-30); Chloride 100 mmol/L (98-107); Glucose 128 mg/dL (74-99); Non-African American GFR(CKD) >90 (>60 ml/min/1.73 sqM); Potassium 4.9 mmol/L (3.5-5.1); Sodium 136 mmol/L (137-145); Total Bilirubin 0.5 mg/dL (0.2-1.3)
[2022-01-10 14:27] LABS: Appearance,Urine Clear (Clear); Bilirubin,Urine Negative (Negative); Blood,Urine Negative (Negative); Color,Urine Colorless; Glucose,Urine (UA) Negative (Negative); Ketones,Urine Negative (Negative); Leukocyte Esterase,Urine Negative (Negative); Nitrite,Urine Negative (Negative); Protein,Urine Negative (Negative); Specific Gravity,Urine 1.006 (1.001-1.035); Urobilinogen,Urine <2.0 mg/dL (<2.0)
[2022-01-10 15:21] VITALS: BP 115/75; PULSE 88; RESP 18
== END 2022-01-10 15:24 | disposition home or self-care (01) ==
LOC: EC 12:46
DX: R10.9 Unspecified abdominal pain (principal); M54.50 Low back pain, unspecified; J45.909 Unspecified asthma, uncomplicated; K21.9 Gastro-esophageal reflux disease without esophagitis; Z99.89 Dependence on other enabling machines and devices; Z87.891 Personal history of nicotine dependence; Z79.51 Long term (current) use of inhaled steroids; Z79.899 Other long term (current) drug therapy; Z79.890 Hormone replacement therapy; Z88.8 Allergy status to other drugs, medicaments and biological substances; Z91.030 Bee allergy status
CPT/HCPCS: 36415; 80053; 85025; 81003; 74018; 99284; 96374; 96361; J1885

== ENCOUNTER 2022-01-13 01:28 | Emergency (ER) | payer BC, MEDICARE ==
[2022-01-13 01:34] VITALS: BP 151/92; PULSE 100; RESP 16; TEMP 97.7
[2022-01-13] MEDS ORDERED: GABAPENTIN 300 MG CAP PO STA (02:13)
[2022-01-13] MEDS ORDERED: HYDROcodone/APAP 5-325MG 1 EACH TAB PO STA (02:14)
[2022-01-13] MEDS ORDERED: ORPHENADRINE 30 MG/ML 2 ML VIAL IM STA (02:14)
[2022-01-13] MEDS ORDERED: ACET/COD 300 MG/30 MG STARTER PACK 6 TAB BTL PO STA (02:14)
[2022-01-13] MEDS ORDERED: CYCLOBENZAPRINE 10MG STARTER 3 TAB BTL PO STA (02:14)
--- NOTE | 2022-01-13 02:20 | ED ---
General Adult HPI - General Source: patient, RN notes reviewed <Roverto Grady - Last Filed: 01/13/22 02:15> <Sun Rivas - Last Filed: 01/14/22 22:59> - General Chief complaint: Recheck/Abnormal Lab/Rx Stated complaint: Back/Neck Pain Time Seen by Provider: 01/13/22 02:05 - History of Present Illness Initial comments: Patient presents complaining of chronic neck, chronic back, and chronic neuropathy pain. States his primary care physician is no longer in practice and she was cut off of all of her medications. Patient looking to get some medications that she can get through to her new pain management physician, Dr. Levine on Tuesday. No headache, no fever or chills, no changes in vision or hearing, no sore throat or difficulty with speech, no chest pain or shortness of breath, no abdominal pain, no nausea or vomiting, no changes in urination or bowel movements, no numbness or tingling,, no skin rashes or lesions. Past medical, surgical, social, and family history reviewed. (Roverto Grady) - Related Data Home Medications Medication Instructions Recorded Confirmed Levothyroxine Sodium [Synthroid] 50 mcg PO DAILY 01/05/14 01/07/22 ALPRAZolam [Xanax] 0.5 mg PO TID PRN 11/24/17 01/07/22 Albuterol Nebulized [Ventolin 2.5 mg INHALATION RT-Q4H PRN 05/28/18 01/07/22 Nebulized] Multivitamins, Thera [Multivitamin 1 tab PO DAILY 05/28/18 01/07/22 (formulary)] Pantoprazole Sodium [Protonix] 40 mg PO DAILY 05/28/18 01/07/22 Gabapentin [Neurontin] 300 mg PO BID 12/05/19 01/07/22 Vitamin A [Vitamin A (8,000 Units 8,000 unit PO DAILY 12/19/19 01/07/22 = 2,400 MCG)] Zinc Sulfate 220 mg PO DAILY 12/19/19 01/07/22 Cyclobenzaprine [Flexeril] 10 mg PO W/SUPPER PRN 10/29/20 01/07/22 Metoprolol Succinate (ER) [Toprol 12.5 mg PO DAILY 10/29/20 01/07/22 XL] methocarbamoL [Robaxin-750] 750 mg PO BID 01/01/21 01/07/22 Meclizine [Antivert] 12.5 mg PO BID PRN 01/23/21 01/07/22 buPROPion HCL [Wellbutrin XL] 150 mg PO BID 01/23/21 01/07/22 Albuterol Inhaler [Ventolin Hfa 2 puff INHALATION RT-QID PRN 08/21/21 01/07/22 Inhaler] Atogepant [Qulipta] 60 mg PO DAILY 08/21/21 01/07/22 Ubrogepant [Ubrelvy] 100 mg PO DAILY PRN 08/21/21 01/07/22 predniSONE 10 mg PO DAILY 08/21/21 01/07/22 Pravastatin Sodium [Pravachol] 20 mg PO DAILY 01/03/22 01/07/22 Promethazine HCl [Phenergan Syrup] 6.25 mg PO HS PRN 01/03/22 01/07/22 HYDROcodone/APAP 10-325MG [[place] 1 tab PO TID 01/07/22 01/07/22 10-325] Previous Rx's Medication Instructions Recorded Celecoxib 400 mg PO QAM PRN #15 capsule 01/07/22 Famotidine 40 mg PO QAM #15 tablet 01/07/22 HYDROcodone/APAP 10-325MG [[place] 1 tab PO Q6HR PRN 3 Days #12 tab 01/07/22 10-325] predniSONE [Deltasone] 20 mg PO BID PRN #10 tab 01/07/22 Gabapentin [Neurontin] 300 mg PO TID #9 cap 01/13/22 Allergies Allergy/AdvReac Type Severity Reaction Status Date / Time bee venom protein (honey bee) Allergy SWELLING , Verified 01/13/22 01:34 AND ITCHING nitrofurantoin Allergy Rash/Hives Verified 01/13/22 01:34 [From Macrobid] nitrofurantoin Allergy Rash/Hives Verified 01/13/22 01:34 macrocrystalline [From Macrobid] moxifloxacin [From Avelox] AdvReac Nausea & Verified 01/13/22 01:34 Vomiting seasonal allergies Allergy Unknown Uncoded 01/13/22 01:34 Review of Systems ROS Other: All systems not noted in ROS Statement are negative. <Roverto Grady - Last Filed: 01/13/22 02:15> ROS Other: All systems not noted in ROS Statement are negative. <Sun Rivas Homero - Last Filed: 01/14/22 22:59> ROS Statement: Those systems with pertinent positive or pertinent negative responses have been documented in the HPI. Past Medical History Past Medical History: Asthma, COPD, GERD/Reflux, Hypertension, Musculoskeletal Disorder, Neurologic Disorder, Sleep Apnea/CPAP/BIPAP, Thyroid Disorder Additional Past Medical History / Comment(s): smoking-related interstitial lung disease, doesn't use CPAP, history of seizure at the age of 16 related to med. to stop breast milk, endometriosis, chronic back pain, plantar fasciitis, hx. of Achilles tendinitis, probably antibiotic induced. She also has history of hypothyroidism, ALLERGIC rhinitis, migraines, current steroids for wheezing & cough, uses oxygen prn, recent iron infusion History of Any Multi-Drug Resistant Organisms: None Reported Past Surgical History: Bariatric Surgery, Tubal Ligation, Uterine Ablation Additional Past Surgical History / Comment(s): LEEP PROCEDURE X 2, EGD, BACK INJECTIONS FOR PAIN. The patient has also undergone thoracic/thoracoscopic wedge biopsy of the right lung. 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; R and Y bypass at [facility] 2019,TRACHEOTOMY-RESOLVED Past Anesthesia/Blood Transfusion Reactions: Motion Sickness Additional Past Anesthesia/Blood Transfusion Reaction / Comment(s): no problem w/blood transfusion Past Psychological History: Anxiety Smoking Status: Former smoker Past Alcohol Use History: None Reported Past Drug Use History: None Reported - Past Family History Sister(s) Family Medical History: Cancer Mother Family Medical History: Cancer Additional Family Medical History / Comment(s): breast cancer Father Family Medical History: COPD, CVA/TIA, Myocardial Infarction ([place]) Additional Family Medical History / Comment(s): HEART PROBLEMS, AT AGE 64 <Roverto Grady - Last Filed: 01/13/22 02:15> General Exam General appearance: alert, in no apparent distress Head exam: Present: atraumatic, normocephalic, normal inspection Eye exam: Present: normal appearance, PERRL, EOMI. Absent: scleral icterus, conjunctival injection, periorbital swelling ENT exam: Present: normal exam, mucous membranes moist Neck exam: Present: normal inspection. Absent: tenderness, meningismus, lymphadenopathy Respiratory exam: Present: normal lung sounds bilaterally. Absent: respiratory distress, wheezes, rales, rhonchi, stridor Cardiovascular Exam: Present: regular rate, normal rhythm, normal heart sounds. Absent: systolic murmur, diastolic murmur, rubs, gallop, clicks GI/Abdominal exam: Present: soft, normal bowel sounds. Absent: distended, tenderness, guarding, rebound, rigid Extremities exam: Present: normal inspection, full ROM, normal capillary refill. Absent: tenderness, pedal edema, joint swelling, calf tenderness Back exam: Present: normal inspection Neurological exam: Present: alert, oriented X3, CN II-XII intact Psychiatric exam: Present: normal affect, normal mood Skin exam: Present: warm, dry, intact, normal color. Absent: rash <Roverto Grady - Last Filed: 01/13/22 02:15> - General Exam Comments Initial Comments: Patient does not appear to be ill or toxic. Vital signs noted. Patient adequately hydrated. Cap refill less than 2 seconds. No mottling. No evidence of neurovascular insult or infectious process. (Roverto Grady) Course Vital Signs 01/13/22 01:29 Temperature 97.7 F Pulse Rate 100 Respiratory 16 Rate Blood Pressure 151/92 O2 Sat by Pulse 98 Oximetry Medical Decision Making <Roverto Grady - Last Filed: 01/13/22 02:15> - Medical Decision Making Patient has her pain management appointment on Tuesday. I did agree to give the patient is starter pack of Tylenol with Codeine, short course of Neurontin, 3 days' worth, and a starter pack of Flexeril. Patient can follow-up with pain management on Tuesday. Patient was given 1 dose of Neurontin and doses of [place] 5/325 here. One dose of orphenadrine 60 mg IM. Patient was told to return to the ER for any signs or symptoms worsen. Told to return immediately if any other problems arise. All questions answered. Treatment plan discussed. Patient in agreement Every effort has been made to ensure accuracy of this dictation. However, due to the limitations of electronic medical records and dictation devices, errors in charting still occur. [employer] Dr. Rivas (Roverto Grady) Disposition Is patient prescribed a controlled substance at d/c from ED?: No Time of Disposition: :15 <Roverto Grady - Last Filed: 01/13/22 02:15> <Sun Rivas - Last Filed: 01/14/22 22:59> Clinical Impression: Chronic pain Disposition: HOME SELF-CARE Condition: Good Additional Instructions: Follow-up with your regular physician as directed. Return to the ER immediately if any symptoms worsen, new symptoms arise, or any other problems develop. Prescriptions: Gabapentin [Neurontin] 300 mg PO TID #9 cap Referrals: Jesus Levine MD [Medical Doctor] - 01/15/22
== END 2022-01-13 02:35 | disposition home or self-care (01) ==
LOC: EC 01:28
DX: G89.29 Other chronic pain (principal); J44.9 Chronic obstructive pulmonary disease, unspecified; K21.9 Gastro-esophageal reflux disease without esophagitis; I10 Essential (primary) hypertension; G47.30 Sleep apnea, unspecified; E07.9 Disorder of thyroid, unspecified; F41.9 Anxiety disorder, unspecified; Z87.891 Personal history of nicotine dependence; Z79.899 Other long term (current) drug therapy; Z79.51 Long term (current) use of inhaled steroids; Z79.890 Hormone replacement therapy; Z91.030 Bee allergy status; Z88.1 Allergy status to other antibiotic agents
CPT/HCPCS: 99283 ×2; 96372; J2360

== ENCOUNTER → 2022-02-11 | Outpatient (CLI) | payer BC, MEDICARE, OTHER ==
[2022-02-11 13:06] LABS: INR 0.9 (<1.2); Partial Thromboplastin Time 23.3 sec (22.0-30.0)
[2022-02-11 18:27] LABS: HCT 45.9 % (37.2-46.3); HGB 15.1 g/dL (12.0-15.0); MCH 33.6 pg (27.0-32.0); MCHC 32.9 g/dL (32.0-37.0); Mean Platelet Volume 9.4 fL (9.5-12.2); NRBC Per 100 WBC 0 /100 WBCS (0.0-0.0); Platelet Count 731 X 10*3/uL (140-440); WBC 16.59 X 10*3/uL (4.50-10.00)
[2022-02-11 19:04] LABS: Chol/HDL Ratio 3.05 Ratio; LDL Cholesterol,Calculated 90.6 mg/dL (0.0-131.0); Prealbumin 24.8 mg/dL (18.0-42.0)
[2022-02-11 23:09] LABS: % Iron Saturation 36.11 (12.00-45.00); Iron 137 ug/dL (50-170); Total Iron Binding Capacity 379 ug/dL (228-460)
[2022-02-11 23:10] LABS: Phosphorus 3.5 mg/dL (2.4-5.1)
[2022-02-11 23:59] LABS: ALT 20 U/L (8-44); AST 60 U/L (13-35); African American GFR (CKD) 121.9 (60.0-200.0); Albumin 3.9 g/dL (3.8-4.9); Albumin/Globulin Ratio 1.32 (1.60-3.17); Alkaline Phosphatase 114 U/L (41-126); BUN/Creat Ratio 15.77 Ratio (12.00-20.00); Blood Urea Nitrogen 10.2 mg/dL (9.0-27.0); Calcium 9.1 mg/dL (8.7-10.3); Carbon Dioxide 19.6 mmol/L (20.0-27.5); Chloride 103 mmol/L (96-109); Glucose 89 mg/dL (70-110); Non-African American GFR(CKD) 105.1 (60.0-200.0); Potassium 5.5 mmol/L (3.5-5.5); Sodium 140 mmol/L (135-145); Total Protein 6.9 g/dL (6.2-8.2)
== END | disposition home or self-care (01) ==
LOC: LABPAT 12:00
PROVIDERS: ATTEND Surgery Plastic and Reconstructive Surgery
DX: E66.01 Morbid (severe) obesity due to excess calories (principal); Z71.51 Drug abuse counseling and surveillance of drug abuser; E89.1 Postprocedural hypoinsulinemia; D50.8 Other iron deficiency anemias; K91.2 Postsurgical malabsorption, not elsewhere classified; E44.0 Moderate protein-calorie malnutrition; E55.9 Vitamin D deficiency, unspecified; K74.1 Hepatic sclerosis; N19 Unspecified kidney failure; T56.894A Toxic effect of other metals, undetermined, initial encounter
CPT/HCPCS: 84255; 84134; 84425; 80061; 80053; 82607; 82728; 82525; 82746; 83540; 83550; 83735; 84100; 84443; 84590; 84630; 85027; 85610; 85730; 82306; 80307 ×2; 83970; 83036; G0482

== ENCOUNTER 2022-02-19 11:54 | Inpatient (IN) | payer BC, MEDICARE ==
--- NOTE | 2022-02-19 12:52 | XR ---
EXAMINATION TYPE: XR chest 2V DATE OF EXAM: 02/19/2022 12:48 PM COMPARISON: Chest radiographs from 01/26/2021 TECHNIQUE: XR chest 2V Frontal and lateral views of the chest. CLINICAL INDICATION:Female, 46 years old with history of Cough; FINDINGS: Lungs/Pleura: Scattered subtle reticular and hazy opacities. No evidence of pneumothorax, focal conso lidation or pleural effusion. Pulmonary vascularity: Unremarkable. Heart/mediastinum: Cardiomediastinal silhouette is unremarkable. Musculoskeletal: No acute osseous pathology. IMPRESSION: Subtle scattered opacities which may represent an atypical pneumonia. Correlate for covid 19.
[2022-02-19] MEDS ORDERED: methylPREDNISolone SOD SUCCI 125 MG/2 ML VIAL IM STA (15:00)
[2022-02-19] MEDS ORDERED: cefTRIAXone 1,000 MG VIAL (IM USE) IM STA (15:00)
[2022-02-19] MEDS ORDERED: IPRATROPIUM-ALBUTEROL 3 ML NEB INHALATION STA (15:01)
--- NOTE | 2022-02-19 15:08 | ED ---
General Adult HPI - General Chief complaint: Upper Respiratory Infection Stated complaint: SOB Time Seen by Provider: 02/19/22 14:47 Source: patient, RN notes reviewed Mode of arrival: ambulatory Limitations: no limitations - History of Present Illness Initial comments: 46-year-old female with a past medical history of asthma, chronic smoker, interstitial lung disease, COPD, hypertension, GERD presents to the emergency room for a chief complaint of cough. Patient states that she started to cough 5 days ago. States it has been worsening. She is also having green nasal drainage. Patient has been doing her albuterol treatments at home. She went to urgent care 2 days ago and was given penicillin VK and a Medrol Dosepak. States it does not seem to be helping. She is now getting short of breath with walking. Denies any chest pain. Patient has no other complaints at this time including chest pain, abdominal pain, nausea or vomiting, headache, or visual changes. - Related Data Home Medications Medication Instructions Recorded Confirmed Levothyroxine Sodium [Synthroid] 50 mcg PO DAILY 01/05/14 02/12/22 ALPRAZolam [Xanax] 0.5 mg PO TID PRN 11/24/17 02/12/22 Albuterol Nebulized [Ventolin 2.5 mg INHALATION RT-Q4H PRN 05/28/18 02/12/22 Nebulized] Multivitamins, Thera [Multivitamin 1 tab PO DAILY 05/28/18 02/12/22 (formulary)] Pantoprazole Sodium [Protonix] 40 mg PO DAILY 05/28/18 02/12/22 Gabapentin [Neurontin] 300 mg PO BID 12/05/19 02/12/22 Vitamin A [Vitamin A (8,000 Units 8,000 unit PO DAILY 12/19/19 02/12/22 = 2,400 MCG)] Zinc Sulfate 220 mg PO DAILY 12/19/19 02/12/22 Cyclobenzaprine [Flexeril] 10 mg PO W/SUPPER PRN 10/29/20 02/12/22 Metoprolol Succinate (ER) [Toprol 12.5 mg PO DAILY 10/29/20 02/12/22 XL] Meclizine [Antivert] 12.5 mg PO BID PRN 01/23/21 02/12/22 buPROPion HCL [Wellbutrin XL] 150 mg PO BID 01/23/21 02/12/22 Albuterol Inhaler [Ventolin Hfa 2 puff INHALATION RT-QID PRN 08/21/21 02/12/22 Inhaler] Atogepant [Qulipta] 60 mg PO DAILY 08/21/21 02/12/22 Ubrogepant [Ubrelvy] 100 mg PO DAILY PRN 08/21/21 02/12/22 predniSONE 10 mg PO DAILY 08/21/21 02/12/22 Pravastatin Sodium [Pravachol] 20 mg PO DAILY 01/03/22 02/12/22 Aspirin 81 mg PO DAILY 02/12/22 02/12/22 Gabapentin [Neurontin] 400 mg PO TID 02/12/22 02/12/22 Ofatumumab [Kesimpta Pen] 60 mg SQ DIRECTED 02/12/22 02/12/22 Previous Rx's Medication Instructions Recorded Celecoxib 400 mg PO QAM PRN #15 capsule 01/07/22 Famotidine 40 mg PO QAM #15 tablet 01/07/22 HYDROcodone/APAP 10-325MG [[place] 1 tab PO Q6HR PRN 3 Days #12 tab 01/07/22 10-325] Allergies Allergy/AdvReac Type Severity Reaction Status Date / Time bee venom protein (honey bee) Allergy SWELLING , Verified 02/19/22 12:33 AND ITCHING nitrofurantoin Allergy Rash/Hives Verified 02/19/22 12:33 [From Macrobid] nitrofurantoin Allergy Rash/Hives Verified 02/19/22 12:33 macrocrystalline [From Macrobid] moxifloxacin [From Avelox] AdvReac Nausea & Verified 02/19/22 12:33 Vomiting seasonal allergies Allergy Unknown Uncoded 02/19/22 12:33 Review of Systems ROS Statement: Those systems with pertinent positive or pertinent negative responses have been documented in the HPI. ROS Other: All systems not noted in ROS Statement are negative. Past Medical History Past Medical History: Asthma, COPD, GERD/Reflux, Hypertension, Musculoskeletal Disorder, Neurologic Disorder, Sleep Apnea/CPAP/BIPAP, Thyroid Disorder Additional Past Medical History / Comment(s): smoking-related interstitial lung disease, doesn't use CPAP, history of seizure at the age of 16 related to med. to stop breast milk, endometriosis, chronic back pain, plantar fasciitis, hx. of Achilles tendinitis, probably antibiotic induced. She also has history of hypothyroidism, ALLERGIC rhinitis, migraines, current steroids for wheezing & cough, uses oxygen prn, recent iron infusion History of Any Multi-Drug Resistant Organisms: None Reported Past Surgical History: Bariatric Surgery, Tubal Ligation, Uterine Ablation Additional Past Surgical History / Comment(s): LEEP PROCEDURE X 2, EGD, BACK INJECTIONS FOR PAIN. The patient has also undergone thoracic/thoracoscopic wedge biopsy of the right lung. 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; R and Y bypass at [facility] 2019,TRACHEOTOMY-RESOLVED Past Anesthesia/Blood Transfusion Reactions: Motion Sickness Additional Past Anesthesia/Blood Transfusion Reaction / Comment(s): no problem w/blood transfusion Past Psychological History: Anxiety Smoking Status: Former smoker Past Alcohol Use History: None Reported Past Drug Use History: None Reported - Past Family History Sister(s) Family Medical History: Cancer Mother Family Medical History: Cancer Additional Family Medical History / Comment(s): breast cancer Father Family Medical History: COPD, CVA/TIA, Myocardial Infarction ([place]) Additional Family Medical History / Comment(s): HEART PROBLEMS, AT AGE 64 General Exam Limitations: no limitations General appearance: alert, in no apparent distress Head exam: Present: atraumatic Eye exam: Present: normal appearance, PERRL, EOMI. Absent: scleral icterus, conjunctival injection ENT exam: Present: normal exam, mucous membranes moist Neck exam: Present: normal inspection, full ROM. Absent: tenderness Respiratory exam: Present: wheezes (slight wheezing noted bilaterally). Absent: respiratory distress, rales, rhonchi, accessory muscle use Cardiovascular Exam: Present: regular rate, normal rhythm, normal heart sounds Neurological exam: Present: alert Course Vital Signs 02/19/22 02/19/22 02/19/22 12:31 14:52 15:09 Temperature 98.9 F Pulse Rate 112 H 96 105 H Respiratory 20 18 Rate Blood Pressure 94/52 115/77 O2 Sat by Pulse 96 Oximetry 02/19/22 15:18 Temperature Pulse Rate 106 H Respiratory Rate Blood Pressure O2 Sat by Pulse Oximetry Medical Decision Making - Medical Decision Making Patient has history of splenectomy, asthma, COPD, interstitial lung disease. Patient presents tachycardic. Oxygen ranges from 91% to 96%. She does not appear to be in distress. X-ray does show subtle scattered opacities which may represent an atypical pneumonia. COVID-19 is negative. Given patient's history she will be admitted for IV antibiotics. Case discussed with Dr. Kebede who agrees, requests consult to Dr. George. - Lab Data Lab Results 02/19/22 Range/Units 12:35 Coronavirus (PCR) Not Detected (Not Detectd) Disposition Clinical Impression: Pneumonia, COPD exacerbation, Atypical pneumonia, Tachycardia Disposition: ADMITTED IP TO THIS [facility] Condition: Serious Is patient prescribed a controlled substance at d/c from ED?: No Referrals: Keven Kebede MD [Primary Care Provider] - 1-2 days Time of Disposition: 15:57
[2022-02-19] MEDS ORDERED: SODIUM CHLORIDE 0.9% 1,000 ML IV STA (15:33)
[2022-02-19] MEDS ORDERED: LEVOFLOXACIN 750MG-D5W PMX 750 MG in DEXTROSE/WATER 1 150ML.BAG IVPB STA (16:06)
[2022-02-19] MEDS ORDERED: PNEUMONIA PROTOCOL UTILIZED 1 EACH MISC PO PRN (16:06)
[2022-02-19 16:12] LABS: HCT 42.4 % (34.0-46.0); HGB 14.3 gm/dL (11.4-16.0); MCH 33.6 pg (25.0-35.0); MCHC 33.7 g/dL (31.0-37.0); MCV 99.7 fL (80.0-100.0); Mean Platelet Volume 7.3; Platelet Count 511 k/uL (150-450); RBC 4.26 m/uL (3.80-5.40); RDW 11.9 % (11.5-15.5); WBC 29.3 k/uL (3.8-10.6)
[2022-02-19 16:26] LABS: ALT 33 U/L (4-34); AST 42 U/L (14-36); African American GFR (CKD) >90 (>60 ml/min/1.73 sqM); Albumin 3.8 g/dL (3.5-5.0); Alkaline Phosphatase 198 U/L (38-126); Anion Gap 14 mmol/L; Blood Urea Nitrogen 9 mg/dL (7-17); Calcium 8.6 mg/dL (8.4-10.2); Carbon Dioxide 25 mmol/L (22-30); Chloride 98 mmol/L (98-107); Glucose 121 mg/dL (74-99); Non-African American GFR(CKD) >90 (>60 ml/min/1.73 sqM); Potassium 3.2 mmol/L (3.5-5.1); Sodium 137 mmol/L (137-145); Total Bilirubin 0.8 mg/dL (0.2-1.3); Total Protein 6.6 g/dL (6.3-8.2)
[2022-02-19] MEDS ORDERED: POTASSIUM CHLORIDE ER 20 MEQ TAB.ER PO STA (16:26)
[2022-02-19 16:54] LABS: Band Neutrophils % 12 %; Eosinophils # (M) 0.29 k/uL (0-0.7); Metamyelocytes # (M) 0.29 k/uL (0); Metamyelocytes % 1 %; Monocytes # (M) 1.47 k/uL (0-1.0); Neutrophils % (M) 67 %; Nucleated Red Blood Cells 0 /100 WBC (0-0); Total Cells Counted 100
[2022-02-19 16:55] LABS: RBC Morphology Normal
[2022-02-19] MEDS ORDERED: ALBUTEROL NEBULIZED 2.5 MG/3 ML INHALATION PRN (20:00)
[2022-02-19] MEDS: HYDROcodone/APAP 10-325MG 1 EACH TAB PO PRN (20:16)
[2022-02-19] MEDS: SODIUM CHLORIDE 0.9% 1,000 ML IV SCH (20:18)
[2022-02-19] MEDS: IPRATROPIUM-ALBUTEROL 3 ML NEB INHALATION SCH (21:16)
[2022-02-19] MEDS: GABAPENTIN 400 MG CAP PO SCH (21:30)
[2022-02-19] MEDS: buPROPion XL 150 MG TAB.ER.24H PO SCH (21:48)
[2022-02-20] MEDS ORDERED: SYMBICORT 80-4.5 MCG INHALER INHALATION SCH (08:00)
[2022-02-20] MEDS ORDERED: IPRATROPIUM 0.5 MG/2.5 ML NEBU INHALATION SCH (08:00)
[2022-02-20] MEDS: IPRATROPIUM-ALBUTEROL 3 ML NEB INHALATION SCH ×4 (10:00→20:14)
[2022-02-20] MEDS: SODIUM CHLORIDE 0.9% 1,000 ML IV SCH ×3 (11:01→21:30)
[2022-02-20] MEDS: LEVOTHYROXINE 50 MCG TAB PO SCH (11:01)
[2022-02-20] MEDS: ASPIRIN 81 MG PO SCH (11:01)
[2022-02-20] MEDS: PRAVASTATIN SODIUM 20 MG TAB PO SCH (11:02)
[2022-02-20] MEDS: GABAPENTIN 400 MG CAP PO SCH ×3 (11:02→21:27)
[2022-02-20] MEDS: METOPROLOL SUCCINATE (ER) 25 MG TAB.ER.24H PO SCH (11:02)
[2022-02-20] MEDS: buPROPion XL 150 MG TAB.ER.24H PO SCH ×2 (11:02→21:28)
[2022-02-20] MEDS: FAMOTIDINE 20 MG TAB PO SCH (11:02)
--- NOTE | 2022-02-20 11:28 | P.CNPUL ---
History of Present Illness Consult date: 02/20/22 Requesting physician: Keven Kebede Reason for consult: dyspnea, cough, COPD, hypoxemia, abnormal CXR/CT Chief complaint: Shortness of breath. History of present illness: Pulmonary consult dated 02/20/2022. 46-year-old female who looks much older her stated age, who comes into the emergency room, on February 19 complaining of 7 days worth of increasing shortness of breath, cough, wheezing, and chest tightness. The patient sees my partner or her chronic lung disease. She typically uses albuterol inhaler, albuterol updrafts, and Trelegy, at home. Currently, the patient's on 2 L of oxygen. She tested negative for coronavirus. The patient has been previously vaccinated. She's getting saline at 100 mL an hour. She denies any fever or chills. She has been coughing up some yellow-green phlegm. She also has some drainage from her nose. She states that she was given some penicillin by her primary doctor, and a Medrol Dosepak, but those did not really help. Her medical history includes hypothyroidism, COPD, GERD, hypertension, sleep apnea, and smoking-related interstitial lung disease. Lab data from February 19 shows a white count of 29.3, hemoglobin 14.3, hematocrit 42.4, and a platelet count of 511,000. Sodium 137, potassium 3.2, chlorides 98, CO2 25, BUN 9, creatinine 0.53. Testing for coronavirus was negative. Chest x-ray was not remarkable, although, there are some subtle reticular opacities, which may reflect her interstitial lung disease. Review of Systems REVIEW OF SYSTEMS: CONSTITUTIONAL: [Negative.] NEUROLOGIC: [ Negative.] HEENT: Nasal congestion and drainage. CARDIAC: [Negative.] PULMONARY: Shortness of breath, cough, wheezing, chest tightness, and yellow/green phlegm production. GI: [Negative.] : [Negative.] RHEUMATOLOGIC: [ Negative.] IMMUNOLOGIC: [ Negative.] ENDOCRINE: [Negative. ] DERMATOLOGIC: [Negative.] Past Medical History Past Medical History: Asthma, COPD, GERD/Reflux, Hypertension, Musculoskeletal Disorder, Neurologic Disorder, Sleep Apnea/CPAP/BIPAP, Thyroid Disorder Additional Past Medical History / Comment(s): smoking-related interstitial lung disease, doesn't use CPAP, history of seizure at the age of 16 related to med. to stop breast milk, endometriosis, chronic back pain, plantar fasciitis, hx. of Achilles tendinitis, probably antibiotic induced. She also has history of hypothyroidism, ALLERGIC rhinitis, migraines, current steroids for wheezing & cough, uses oxygen prn, recent iron infusion History of Any Multi-Drug Resistant Organisms: None Reported Past Surgical History: Bariatric Surgery, Tubal Ligation, Uterine Ablation Additional Past Surgical History / Comment(s): LEEP PROCEDURE X 2, EGD, BACK INJECTIONS FOR PAIN. The patient has also undergone thoracic/thoracoscopic wedge biopsy of the right lung. 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 Does not work outside of the home at this time. Adult children. No experience. Some international travel. No animal exposures. They have been working on getting up at mother's home and does have exposure to that environment. Smoking Status: Current every day smoker, Former smoker Past Alcohol Use History: None Reported Additional Past Alcohol Use History / Comment(s): STARTED SMOKING AT AGE 14 - STOPPED SMOKING on November 23, 2017. (Heaviest smoking amount was 3/4 pack/day) Past Drug Use History: None Reported - Past Family History Sister(s) Family Medical History: Cancer Mother Family Medical History: Cancer Additional Family Medical History / Comment(s): breast cancer Father Family Medical History: COPD, CVA/TIA, Myocardial Infarction ([place]) Additional Family Medical History / Comment(s): HEART PROBLEMS, AT AGE 64 Medications and Allergies Home Medications Medication Instructions Recorded Confirmed Type Levothyroxine Sodium [Synthroid] 50 mcg PO DAILY 01/05/14 02/19/22 History ALPRAZolam [Xanax] 0.5 mg PO TID PRN 11/24/17 02/19/22 History Albuterol Nebulized [Ventolin 2.5 mg INHALATION RT-QID PRN 05/28/18 02/19/22 History Nebulized] Multivitamins, Thera [Multivitamin 1 tab PO DAILY 05/28/18 02/19/22 History (formulary)] Pantoprazole Sodium [Protonix] 40 mg PO DAILY 05/28/18 02/19/22 History Vitamin A [Vitamin A (8,000 Units 8,000 unit PO DAILY 12/19/19 02/19/22 History = 2,400 MCG)] Zinc Sulfate 220 mg PO DAILY 12/19/19 02/19/22 History Cyclobenzaprine [Flexeril] 10 mg PO HS 10/29/20 02/19/22 History Metoprolol Succinate (ER) [Toprol 12.5 mg PO DAILY 10/29/20 02/19/22 History XL] Meclizine [Antivert] 12.5 mg PO BID PRN 01/23/21 02/19/22 History buPROPion HCL [Wellbutrin XL] 150 mg PO BID 01/23/21 02/19/22 History Albuterol Inhaler [Ventolin Hfa 2 puff INHALATION RT-QID PRN 08/21/21 02/19/22 History Inhaler] Atogepant [Qulipta] 60 mg PO DAILY 08/21/21 02/19/22 History Ubrogepant [Ubrelvy] 100 mg PO DAILY PRN 08/21/21 02/19/22 History Pravastatin Sodium [Pravachol] 20 mg PO DAILY 01/03/22 02/19/22 History Aspirin 81 mg PO DAILY 02/12/22 02/19/22 History Gabapentin [Neurontin] 400 mg PO TID 02/12/22 02/19/22 History Ofatumumab [Kesimpta Pen] 20 mg SQ Q30D 02/12/22 02/19/22 History Famotidine 40 mg PO DAILY 02/19/22 02/19/22 History Fluticasone/Umeclidin/Vilanter 1 puff INHALATION RT-DAILY 02/19/22 02/19/22 History [Trelegy Ellipta 100-62.5-25] HYDROcodone/APAP 10-325MG [[place] 1 tab PO TID PRN 02/19/22 02/19/22 History 10-325] Penicillin V Potassium 250 mg PO QID 02/19/22 02/19/22 History methylPREDNISolone [Medrol Dose See Taper PO DIRECTED 02/19/22 02/19/22 History Pack] Allergies Allergy/AdvReac Type Severity Reaction Status Date / Time bee venom protein (honey bee) Allergy SWELLING , Verified 02/19/22 17:21 AND ITCHING nitrofurantoin Allergy Rash/Hives Verified 02/19/22 17:21 [From Macrobid] nitrofurantoin Allergy Rash/Hives Verified 02/19/22 17:21 macrocrystalline [From Macrobid] moxifloxacin [From Avelox] AdvReac Nausea & Verified 02/19/22 17:21 Vomiting seasonal allergies Allergy Unknown Uncoded 02/19/22 17:21 Physical Exam Osteopathic Statement: *. No significant issues noted on an osteopathic structural exam other than those noted in the History and Physical/Consult. Vitals: Vital Signs Temp Pulse Pulse Resp BP BP Pulse Ox 02/20/22 10:09 90 02/20/22 10:01 88 02/19/22 21:26 90 02/19/22 21:16 88 02/19/22 19:13 97.9 F 101 H 17 95/57 99 02/19/22 16:56 106 H 20 92 L 02/19/22 15:18 106 H 02/19/22 15:09 105 H 02/19/22 14:52 96 18 115/77 02/19/22 12:31 98.9 F 112 H 20 94/52 96 Intake and Output 02/19/22 02/20/22 02/20/22 22:59 06:59 14:59 Other: # Voids 1 Weight 58.513 kg No acute distress, oriented 3. No use of accessory muscles, or conversational dyspnea. HEENT examination is grossly unremarkable. Neck supple. Full range of motion. No adenopathy thyromegaly or neck vein distention. Cardiovascular examination reveals regular rhythm rate. S1-S2 normal. No S3 or S4. No discernible murmur noted. Heart rate 90 bpm. Lungs reveal bilateral mild to moderate scattered rhonchi. No wheezes. No crackles. Breath sounds equal bilaterally. 2 L saturation is 98%. Abdomen soft bowel sounds are heard. No masses or tenderness. Extremities are intact. No cyanosis clubbing or edema. Skin is without rash or lesion. Neurologic examination is brief but nonfocal. Results - Laboratory Findings CBC and BMP: 02/19/22 16:00 02/19/22 16:05 Abnormal lab findings: Abnormal Labs 02/19/22 02/19/22 16:00 16:05 WBC 29.3 H Plt Count 511 H Neutrophils # (Manual) 23.10 H Monocytes # (Manual) 1.47 H Metamyelocytes # (Man) 0.29 H Potassium 3.2 L Glucose 121 H AST 42 H Alkaline Phosphatase 198 H - Diagnostic Findings Chest x-ray: image reviewed Assessment and Plan Assessment: Acute exacerbation of COPD. Smoking-related interstitial fibrosis (SRIF). History of hypothyroidism. History of gastroesophageal reflux disease. History of hypertension. History of sleep apnea syndrome. History of chronic back pain. History of anxiety. Plan: Plan dated 02/20/2022. The patient is currently getting Levaquin, and updrafts with albuterol sulfate and ipratropium bromide. Additional recommendations and suggestions are forthcoming. The patient will be placed on formoterol 20 g and budesonide 1 mg twice a day. Also, the patient should be on Solu-Medrol, 60 mg every 6 hours. Additional recommendations and suggestions are forthcoming. I will continue to follow the patient make recommendations along the way. Time with Patient: Greater than 30
--- NOTE | 2022-02-20 12:58 | P.CONS ---
History of Present Illness - Reason for Consult Consult date: 02/19/22 - History of Present Illness Patient is a 46-year-old female with past medical history significant for smoking COPD gastric reflux disease hypertension hypothyroidism patient presenting to the ER for evaluation of increasing shortness of breath symptom is going on for about a week patient also have a cough which has been moderate intensity and is bringing up some greenish sputum patient denies having hemoptysis denies having any pleuritic chest pain patient denies having any nausea vomiting no choking on food no abdominal pain and no diarrhea patient has been evaluated by her primary care physician outpatient setting has been treated with a Medrol Dosepak and penicillin however the patient did not have any improvement with the symptom patient present to the hospital on arrival to the ER the patient was afebrile patient did have white count of 29.3 with a left shift kidney function has been normal AST is mildly elevated patient did have a negative COVID test chest x-ray did show scattered opacity which may represent atypical pneumonia correlate for covid19 patient was started on Levaquin has been admitted to the hospital infectious disease was consulted for further management of antibiotic therapy Past Medical History Past Medical History: Asthma, COPD, GERD/Reflux, Hypertension, Musculoskeletal Disorder, Neurologic Disorder, Sleep Apnea/CPAP/BIPAP, Thyroid Disorder Additional Past Medical History / Comment(s): smoking-related interstitial lung disease, doesn't use CPAP, history of seizure at the age of 16 related to med. t o stop breast milk, endometriosis, chronic back pain, plantar fasciitis, hx. of Achilles tendinitis, probably antibiotic induced. She also has history of hypothyroidism, ALLERGIC rhinitis, migraines, current steroids for wheezing & cough, uses oxygen prn, recent iron infusion History of Any Multi-Drug Resistant Organisms: None Reported Past Surgical History: Bariatric Surgery, Tubal Ligation, Uterine Ablation Additional Past Surgical History / Comment(s): LEEP PROCEDURE X 2, EGD, BACK INJECTIONS FOR PAIN. The patient has also undergone thoracic/thoracoscopic wedge biopsy of the right lung. 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; R and Y bypass at [facility] 2019,TRACHEOTOMY-RESOLVED Past Anesthesia/Blood Transfusion Reactions: Motion Sickness Additional Past Anesthesia/Blood Transfusion Reaction / Comm: no problem w/blood transfusion Past Psychological History: Anxiety Smoking Status: Former smoker Past Alcohol Use History: None Reported Past Drug Use History: None Reported - Past Family History Sister(s) Family Medical History: Cancer Mother Family Medical History: Cancer Additional Family Medical History / Comment(s): breast cancer Father Family Medical History: COPD, CVA/TIA, Myocardial Infarction ([place]) Additional Family Medical History / Comment(s): HEART PROBLEMS, AT AGE 64 Medications and Allergies Home Medications Medication Instructions Recorded Confirmed Type Levothyroxine Sodium [Synthroid] 50 mcg PO DAILY 01/05/14 02/19/22 History ALPRAZolam [Xanax] 0.5 mg PO TID PRN 11/24/17 02/19/22 History Albuterol Nebulized [Ventolin 2.5 mg INHALATION RT-QID PRN 05/28/18 02/19/22 History Nebulized] Multivitamins, Thera [Multivitamin 1 tab PO DAILY 05/28/18 02/19/22 History (formulary)] Pantoprazole Sodium [Protonix] 40 mg PO DAILY 05/28/18 02/19/22 History Vitamin A [Vitamin A (8,000 Units 8,000 unit PO DAILY 12/19/19 02/19/22 History = 2,400 MCG)] Zinc Sulfate 220 mg PO DAILY 12/19/19 02/19/22 History Cyclobenzaprine [Flexeril] 10 mg PO HS 10/29/20 02/19/22 History Metoprolol Succinate (ER) [Toprol 12.5 mg PO DAILY 10/29/20 02/19/22 History XL] Meclizine [Antivert] 12.5 mg PO BID PRN 01/23/21 02/19/22 History buPROPion HCL [Wellbutrin XL] 150 mg PO BID 01/23/21 02/19/22 History Albuterol Inhaler [Ventolin Hfa 2 puff INHALATION RT-QID PRN 08/21/21 02/19/22 History Inhaler] Atogepant [Qulipta] 60 mg PO DAILY 08/21/21 02/19/22 History Ubrogepant [Ubrelvy] 100 mg PO DAILY PRN 08/21/21 02/19/22 History Pravastatin Sodium [Pravachol] 20 mg PO DAILY 01/03/22 02/19/22 History Aspirin 81 mg PO DAILY 02/12/22 02/19/22 History Gabapentin [Neurontin] 400 mg PO TID 02/12/22 02/19/22 History Ofatumumab [Kesimpta Pen] 20 mg SQ Q30D 02/12/22 02/19/22 History Famotidine 40 mg PO DAILY 02/19/22 02/19/22 History Fluticasone/Umeclidin/Vilanter 1 puff INHALATION RT-DAILY 02/19/22 02/19/22 History [Trelegy Ellipta 100-62.5-25] HYDROcodone/APAP 10-325MG [[place] 1 tab PO TID PRN 02/19/22 02/19/22 History 10-325] Penicillin V Potassium 250 mg PO QID 02/19/22 02/19/22 History methylPREDNISolone [Medrol Dose See Taper PO DIRECTED 02/19/22 02/19/22 History Pack] Allergies Allergy/AdvReac Type Severity Reaction Status Date / Time bee venom protein (honey bee) Allergy SWELLING , Verified 02/19/22 17:21 AND ITCHING nitrofurantoin Allergy Rash/Hives Verified 02/19/22 17:21 [From Macrobid] nitrofurantoin Allergy Rash/Hives Verified 02/19/22 17:21 macrocrystalline [From Macrobid] moxifloxacin [From Avelox] AdvReac Nausea & Verified 02/19/22 17:21 Vomiting seasonal allergies Allergy Unknown Uncoded 02/19/22 17:21 Physical Exam Vitals: Vital Signs Temp Pulse Resp BP Pulse Ox 02/19/22 15:18 106 H 02/19/22 15:09 105 H 02/19/22 14:52 96 18 115/77 02/19/22 12:31 98.9 F 112 H 20 94/52 96 Intake and Output 02/19/22 02/19/22 02/19/22 06:59 14:59 22:59 Other: Weight 58.513 kg Results CBC & Chem 7: 02/19/22 16:00 02/19/22 16:05 Labs: Abnormal Lab Results - Last 24 Hours (Table) 02/19/22 02/19/22 Range/Units 16:00 16:05 WBC 29.3 H (3.8-10.6) k/uL Plt Count 511 H (150-450) k/uL Potassium 3.2 L (3.5-5.1) mmol/L Glucose 121 H (74-99) mg/dL AST 42 H (14-36) U/L Alkaline Phosphatase 198 H (38-126) U/L Assessment and Plan Plan: 1patient present to hospital with increasing shortness of breath cough and bring up some greenish sputum concerning for a COPD exacerbation and possible component of pneumonia likely community-acquired failing outpatient oral amoxicillin therapy. 2we will obtain a sputum for gram stain culture check a CRP and a procalcitonin. 3patient to continue with the Levaquin while waiting for the culture to finalize. We will follow on clinical condition and cultures to further adjust medication if needed Thank you for this consultation will follow this patient along with you Time with Patient: Greater than 30
[2022-02-20] MEDS: HYDROcodone/APAP 10-325MG 1 EACH TAB PO PRN ×2 (13:17→21:27)
[2022-02-20 15:45] VITALS: BMI 24.3
[2022-02-20] MEDS: LEVOFLOXACIN 750MG-D5W PMX 750 MG in DEXTROSE/WATER 1 150ML.BAG IVPB SCH (18:14)
[2022-02-20] MEDS: methylPREDNISolone SOD SUCCI 125 MG/2 ML VIAL IV SCH ×2 (18:14→23:37)
--- NOTE | 2022-02-20 18:17 | PN ---
PROGRESS NOTE CHIEF COMPLAINT: Pneumonitis. HISTORY OF PRESENT ILLNESS: This lady is doing a little bit better. She is still slightly short of breath, but improved. She has had no fever or chills. PHYSICAL EXAMINATION: CHEST: Demonstrates scattered rales and occasional rhonchi. CARDIAC: Normal. ABDOMEN: Soft and nontender. IMPRESSION: Bronchopneumonia. PLAN: Continue with updrafts, IV fluids, and antibiotics. MMODL / IJN: [id number] /
[2022-02-20] MEDS: FORMOTEROL FUMARATE 20 MCG/2 ML NEBU INHALATION SCH (20:14)
[2022-02-20] MEDS: BUDESONIDE 1 MG/2 ML NEBU INHALATION SCH (20:14)
--- NOTE | 2022-02-21 01:28 | HP ---
HISTORY AND PHYSICAL CHIEF COMPLAINT: Cough, shortness of breath, asthma, and fever. HISTORY OF PRESENT ILLNESS: This is a 46-year-old white female who was being treated through the office for sore throat, nonproductive cough, and headache. She does have a history of asthma and she does smoke. She was getting worse and presented to the emergency room where she was diagnosed as having atypical pneumonia. She has also had a splenectomy. Her pulse ox in emergency room is 93 to 96. REVIEW OF SYSTEMS: She has had no hemoptysis, chest pain, abdominal pain, nausea, vomiting, hematemesis, melena, hematochezia, jaundice, urinary complaints, etc. Past medical history, family history, and personal and social histories reveal that she is not allergic to any medications. MEDICATIONS: She takes, 1. Flexeril p.r.n. 2. Gabapentin 400 mg once a day. 3. Nicotine transdermal patch. 4. Metolazone 25 mg at bedtime. 5. Albuterol updrafts p.r.n. 6. Xanax 0.5 once a day p.r.n. 7. Kesimpta 20 mg once a month. 8. Pantoprazole 40 mg once a day. 9. Metoprolol succinate 25 mg half a tablet once a day. 10.Breztri inhaler twice a day. 11.Pravastatin 20 mg once a day. 12.81 mg of aspirin. 13.Vicodin p.r.n. 14.Qulipta 60 mg once a day. 15.Wellbutrin 150 mg twice a day. 16.Ubrelvy 100 mg once a day. 17.Zyrtec as well as thyroid 0.05 mcg. SOCIAL HISTORY: She does continue to smoke. PHYSICAL EXAMINATION: VITAL SIGNS: Blood pressure 100/64 with a pulse of 106, respirations of 20, and temperature of 99. GENERAL: She appeared to be slightly short of breath. SKIN: Color was normal and skin was dry. HEENT: Head, ears, eyes, nose, mouth, and throat were normal. NECK: Veins are not distended. Thyroid is not enlarged. CHEST: Demonstrates poor breath sounds at bases with scattered rales and rhonchi and expiratory wheezing. CARDIAC: Exam demonstrates sinus tachycardia. ABDOMEN: Soft and nontender without any masses or visceromegaly. Bowel sounds are present. EXTREMITIES: Normal. NEUROLOGICAL: Intact. DIAGNOSES: She is admitted to the hospital with diagnoses, 1. Bronchopneumonia. 2. Upper respiratory infection. 3. Chronic obstructive pulmonary disease. 4. History of asthmatic bronchitis. 5. Hypertension. PLAN: 1. Bedrest. 2. IV fluids. 3. IV and inhaled steroids. 4. Updrafts. 5. Infectious Disease and Pulmonology consults. GINGER / LINDA: [id number] /
[2022-02-21] MEDS: HYDROcodone/APAP 10-325MG 1 EACH TAB PO PRN ×3 (06:47→20:25)
[2022-02-21] MEDS: LEVOTHYROXINE 50 MCG TAB PO SCH (06:47)
[2022-02-21] MEDS: FORMOTEROL FUMARATE 20 MCG/2 ML NEBU INHALATION SCH ×2 (08:29→19:45)
[2022-02-21] MEDS: IPRATROPIUM-ALBUTEROL 3 ML NEB INHALATION SCH ×4 (08:29→19:45)
[2022-02-21] MEDS: BUDESONIDE 1 MG/2 ML NEBU INHALATION SCH ×2 (08:29→19:45)
[2022-02-21] MEDS: buPROPion XL 150 MG TAB.ER.24H PO SCH ×2 (09:33→20:26)
[2022-02-21] MEDS: FAMOTIDINE 20 MG TAB PO SCH (09:33)
[2022-02-21] MEDS: METOPROLOL SUCCINATE (ER) 25 MG TAB.ER.24H PO SCH (09:33)
[2022-02-21] MEDS: GABAPENTIN 400 MG CAP PO SCH ×3 (09:34→21:34)
[2022-02-21] MEDS: ASPIRIN 81 MG PO SCH (09:34)
[2022-02-21] MEDS: NICOTINE 21MG/24HR PATCH TRANSDERM SCH (09:34)
[2022-02-21] MEDS: PRAVASTATIN SODIUM 20 MG TAB PO SCH (09:41)
--- NOTE | 2022-02-21 10:27 | XR ---
EXAMINATION TYPE: XR chest 1V portable DATE OF EXAM: 02/21/2022 9:53 AM COMPARISON: Chest radiographs from 02/19/2022 TECHNIQUE: XR chest 1V portable Frontal view of the chest. CLINICAL INDICATION:Female, 46 years old with history of progress pneumonia; FINDINGS: Lungs/Pleura: Similar interstitial opacities throughout the lungs. There is no evidence of pleural ef fusion, focal consolidation, or pneumothorax. Pulmonary vascularity: Unremarkable. Heart/mediastinum: Cardiomediastinal silhouette is unremarkable. Musculoskeletal: No acute osseous pathology. IMPRESSION: Similar interstitial and subtle hazy opacities throughout the lungs.
[2022-02-21] MEDS: SODIUM CHLORIDE 0.9% 1,000 ML IV SCH ×2 (11:42→20:26)
[2022-02-21] MEDS: methylPREDNISolone SOD SUCCI 125 MG/2 ML VIAL IV SCH (11:43)
--- NOTE | 2022-02-21 12:41 | P.PN ---
Subjective Progress Note Date: 02/21/22 Principal diagnosis: Shortness of breath. Pulmonary consult dated 02/20/2022. 46-year-old female who looks much older her stated age, who comes into the emergency room, on February 19 complaining of 7 days worth of increasing shortness of breath, cough, wheezing, and chest tightness. The patient sees my partner or her chronic lung disease. She typically uses albuterol inhaler, albuterol updrafts, and Trelegy, at home. Currently, the patient's on 2 L of oxygen. She tested negative for coronavirus. The patient has been previously vaccinated. She's getting saline at 100 mL an hour. She denies any fever or chills. She has been coughing up some yellow-green phlegm. She also has some drainage from her nose. She states that she was given some penicillin by her primary doctor, and a Medrol Dosepak, but those did not really help. Her medical history includes hypothyroidism, COPD, GERD, hypertension, sleep apnea, and smoking-related interstitial lung disease. Lab data from February 19 shows a white count of 29.3, hemoglobin 14.3, hematocrit 42.4, and a platelet count of 511,000. Sodium 137, potassium 3.2, chlorides 98, CO2 25, BUN 9, creatinine 0.53. Testing for coronavirus was negative. Chest x-ray was not remarkable, although, there are some subtle reticular opacities, which may reflect her interstitial lung disease. Progress note dated 02/21/2022. 46-year-old female seen yesterday in consultation. Please see the note above. The patient is doing much better today. She sitting up in bed. The patient is on saline at 100 mL an hour, and on 2 L of oxygen. Her breathing is much improved. She's getting Rocephin and Levaquin. She has seen my partner in the past. No new laboratory data today. Last laboratory data was on February 19. Blood and sputum sampling assess far negative. The chest x-ray is essentially unchanged, and most of the changes likely are more chronic in nature. Objective - Vital Signs Vital signs: Vital Signs Temp 97.4 F L 02/21/22 09:21 Pulse 97 02/21/22 11:45 Resp 16 02/21/22 09:21 BP 146/76 02/21/22 09:21 Pulse Ox 98 02/21/22 11:35 FiO2 Intake & Output 02/20/22 02/21/22 02/21/22 19:59 06:59 18:59 Weight Other: Voiding Method # Voids - Exam No acute distress, oriented 3. No use of accessory muscles, or conversational dyspnea. HEENT examination is grossly unremarkable. Neck supple. Full range of motion. No adenopathy thyromegaly or neck vein distention. Cardiovascular examination reveals regular rhythm rate. S1-S2 normal. No S3 or S4. No discernible murmur noted. Heart rate 87 bpm. Lungs reveal bilateral mild to moderate scattered rhonchi. No wheezes. No crackles. Breath sounds equal bilaterally. 1 L saturation is 98%. Abdomen soft bowel sounds are heard. No masses or tenderness. Extremities are intact. No cyanosis clubbing or edema. Skin is without rash or lesion. Neurologic examination is brief but nonfocal. - Labs CBC & Chem 7: 02/19/22 16:00 02/19/22 16:05 Labs: Microbiology - Last 24 Hours (Table) 02/19/22 15:00 Sputum Culture - Preliminary Sputum 02/19/22 16:00 Blood Culture - Preliminary Blood No Growth after 24 hours 02/19/22 16:00 Blood Culture - Preliminary Blood No Growth after 24 hours Assessment and Plan Assessment: Acute exacerbation of COPD. Smoking-related interstitial fibrosis (SRIF). History of hypothyroidism. History of gastroesophageal reflux disease. History of hypertension. History of sleep apnea syndrome. History of chronic back pain. History of anxiety. Plan: Plan dated 02/20/2022. The patient is currently getting Levaquin, and updrafts with albuterol sulfate and ipratropium bromide. Additional recommendations and suggestions are forthcoming. The patient will be placed on formoterol 20 g and budesonide 1 mg twice a day. Also, the patient should be on Solu-Medrol, 60 mg every 6 hours. Additional recommendations and suggestions are forthcoming. I will continue to follow the patient make recommendations along the way. Plan dated 02/21/2022. The patient's doing much better. She remains on appropriate antibiotics, breathing treatments, and corticosteroids. She's been weaned down to 1 L. Likely she'll be able to be discharged in the near future. Clinically she is much improved today compared to yesterday. After discharge, the patient should follow-up with Dr. Truong, who she sees in our clinic. Prognosis is guarded. We'll continue to follow the patient and make recommendations where appropriate. Time with Patient: Less than 30
[2022-02-21 12:52] LABS: ALT 27 U/L (4-34); AST 29 U/L (14-36); African American GFR (CKD) >90 (>60 ml/min/1.73 sqM); Albumin 3.5 g/dL (3.5-5.0); Albumin/Globulin Ratio 1.3; Alkaline Phosphatase 157 U/L (38-126); Anion Gap 7 mmol/L; Blood Urea Nitrogen 5 mg/dL (7-17); Calcium 9.1 mg/dL (8.4-10.2); Carbon Dioxide 27 mmol/L (22-30); Chloride 109 mmol/L (98-107); Globulin 2.8 g/dL; Glucose 90 mg/dL (74-99); Non-African American GFR(CKD) >90 (>60 ml/min/1.73 sqM); Potassium 3.7 mmol/L (3.5-5.1); Sodium 143 mmol/L (137-145); Total Bilirubin 0.3 mg/dL (0.2-1.3); Total Protein 6.3 g/dL (6.3-8.2)
[2022-02-21] MEDS: LEVOFLOXACIN 750MG-D5W PMX 750 MG in DEXTROSE/WATER 1 150ML.BAG IVPB SCH (17:10)
[2022-02-21 17:28] LABS: HCT 40.5 % (37.2-46.3); HGB 13.3 g/dL (12.0-15.0); MCH 33.2 pg (27.0-32.0); MCHC 32.8 g/dL (32.0-37.0); Mean Platelet Volume 9.4 fL (9.5-12.2); NRBC Per 100 WBC 0.1 /100 WBCS (0.0-0.0); Platelet Count 562 X 10*3/uL (140-440); RBC 4.01 X 10*6/uL (4.10-5.20); RDW 12.8 % (11.5-14.5); WBC 35.61 X 10*3/uL (4.50-10.00)
[2022-02-21 17:52] LABS: Basophils # (A) 0.19 X 10*3/uL (0.00-0.10); Basophils % (A) 0.5 %; Eosinophils # (A) 0.06 X 10*3/uL (0.04-0.35); Eosinophils % (A) 0.2 %; Immature Grans, Automated 3.1 %; Lymphocytes # (A) 2.51 X 10*3/uL (0.90-5.00); Monocytes # (A) 2.51 X 10*3/uL (0.20-1.00); Neutrophils # (A) 29.22 X 10*3/uL (1.80-7.70); Neutrophils % (A) 82.2 %
[2022-02-21] MEDS: predniSONE 20 MG TAB PO SCH (21:34)
[2022-02-22] MEDS: ALPRAZolam 0.5 MG TAB PO PRN (03:40)
[2022-02-22] MEDS: SODIUM CHLORIDE 0.9% 1,000 ML IV SCH ×2 (06:54→21:32)
[2022-02-22] MEDS: LEVOTHYROXINE 50 MCG TAB PO SCH (06:54)
[2022-02-22] MEDS: BUDESONIDE 1 MG/2 ML NEBU INHALATION SCH (08:28)
[2022-02-22] MEDS: IPRATROPIUM-ALBUTEROL 3 ML NEB INHALATION SCH ×4 (08:28→20:50)
[2022-02-22] MEDS: FORMOTEROL FUMARATE 20 MCG/2 ML NEBU INHALATION SCH (08:28)
--- NOTE | 2022-02-22 08:43 | P.PN ---
Subjective Progress Note Date: 02/20/22 Principal diagnosis: Pneumonia Patient is a 46-year female with a past medical history pertinent for COPD smoking presents hospital increasing shortness of breath patient noticed to have multifocal infiltrate elevated white count concerning for atypical pneumonia patient did have a negative COVID test. On today's evaluation that is 02/20/2022, the patient denies having any fever or any chills patient is breathing more comfortably currently denies any chest pain no worsening cough or sputum production no abdominal pain or diarrhea Objective - Vital Signs Vital signs: Vital Signs Temp 98.0 F 02/20/22 14:00 Pulse 81 02/20/22 14:00 Resp 18 02/20/22 14:00 BP 152/83 02/20/22 14:00 Pulse Ox 100 02/20/22 14:00 FiO2 Intake & Output 02/19/22 02/20/22 02/20/22 18:59 06:59 18:59 Weight 58.513 kg 58.513 kg Other: Voiding Method Toilet # Voids 1 - Exam GENERAL DESCRIPTION: Middle-aged female lying in bed, no distress. No tachypnea or accessory muscle of respiration use. LUNGS: Unlabored breathing. Decrease intensity of breath sounds HEART: S1, S2, regular rate and rhythm. No loud murmur ABDOMEN: Soft, no tenderness , guarding or rigidity, no organomegaly EXTREMITIES: No edema of feet. - Labs CBC & Chem 7: 02/21/22 12:25 02/21/22 12:25 Labs: Abnormal Lab Results - Last 24 Hours (Table) 02/19/22 02/19/22 Range/Units 16:00 16:05 WBC 29.3 H (3.8-10.6) k/uL Plt Count 511 H (150-450) k/uL Neutrophils # (Manual) 23.10 H (1.3-7.7) k/uL Monocytes # (Manual) 1.47 H (0-1.0) k/uL Metamyelocytes # (Man) 0.29 H (0) k/uL Potassium 3.2 L (3.5-5.1) mmol/L Glucose 121 H (74-99) mg/dL AST 42 H (14-36) U/L Alkaline Phosphatase 198 H (38-126) U/L Assessment and Plan (1) Atypical pneumonia Current Visit: Yes Status: Acute Code(s): J18.9 - PNEUMONIA, UNSPECIFIED ORGANISM SNOMED Code(s): 311926718 Plan: 1patient present to hospital with increasing shortness of breath cough and bring up some greenish sputum concerning for a COPD exacerbation and possible component of pneumonia likely community-acquired failing outpatient oral amoxicillin therapy. 22blood and sputum cultures are currently pending. 3CRP and procalcitonin currently pending urine for Legionella antigen was negative. 4-Patient to continue with the Levaquin we will add Rocephin and monitor clinical course closely Time with Patient: Less than 30
--- NOTE | 2022-02-22 08:45 | P.PN ---
Subjective Progress Note Date: 02/21/22 Principal diagnosis: Pneumonia Patient is a 46-year female with a past medical history pertinent for COPD smoking presents hospital increasing shortness of breath patient noticed to have multifocal infiltrate elevated white count concerning for atypical pneumonia patient did have a negative COVID test. On today's evaluation that is 02/21/2022, the patient remains to be afebrile, patient is breathing comfortably on room air, the patient denies any chest pain cough is decreasing intensity less productive no hemoptysis no abdominal pain no diarrhea Objective - Vital Signs Vital signs: Vital Signs Temp 97.8 F 02/21/22 14:00 Pulse 94 02/21/22 15:45 Resp 18 02/21/22 15:45 BP 114/73 02/21/22 14:00 Pulse Ox 94 L 02/21/22 15:35 FiO2 Intake & Output 02/20/22 02/21/22 02/21/22 19:59 06:59 18:59 Weight Other: Voiding Method # Voids - Exam GENERAL DESCRIPTION: Middle-aged female lying in bed, no distress. No tachypnea or accessory muscle of respiration use. LUNGS: Unlabored breathing. Decrease intensity of breath sounds HEART: S1, S2, regular rate and rhythm. No loud murmur ABDOMEN: Soft, no tenderness , guarding or rigidity, no organomegaly EXTREMITIES: No edema of feet. - Labs CBC & Chem 7: 02/21/22 12:25 02/21/22 12:25 Labs: Abnormal Lab Results - Last 24 Hours (Table) 02/21/22 Range/Units 12:25 Chloride 109 H (98-107) mmol/L BUN 5 L (7-17) mg/dL Creatinine 0.41 L (0.52-1.04) mg/dL Alkaline Phosphatase 157 H (38-126) U/L Microbiology - Last 24 Hours (Table) 02/19/22 15:00 Sputum Culture - Preliminary Sputum 02/19/22 16:00 Blood Culture - Preliminary Blood No Growth after 24 hours 02/19/22 16:00 Blood Culture - Preliminary Blood No Growth after 24 hours Assessment and Plan (1) Atypical pneumonia Current Visit: Yes Status: Acute Code(s): J18.9 - PNEUMONIA, UNSPECIFIED ORGANISM SNOMED Code(s): 934412396 Plan: 1patient present to hospital with increasing shortness of breath cough and bring up some greenish sputum concerning for a COPD exacerbation and possible component of pneumonia likely community-acquired failing outpatient oral amoxicillin therapy. 2blood and sputum cultures are currently pending. 3Patient with leukocytosis more likely steroid effect and will be monitored closely. 4we will continue patient on Rocephin and Levaquin while waiting for the culture to finalize Time with Patient: Less than 30
[2022-02-22] MEDS: HYDROcodone/APAP 10-325MG 1 EACH TAB PO PRN ×3 (09:50→21:30)
[2022-02-22] MEDS: NICOTINE 21MG/24HR PATCH TRANSDERM SCH (10:00)
[2022-02-22] MEDS: ASPIRIN 81 MG PO SCH (10:00)
[2022-02-22] MEDS: buPROPion XL 150 MG TAB.ER.24H PO SCH ×2 (10:00→21:28)
[2022-02-22] MEDS: PANTOPRAZOLE 40 MG TABLET PO SCH (10:00)
[2022-02-22] MEDS: PRAVASTATIN SODIUM 20 MG TAB PO SCH (10:00)
[2022-02-22] MEDS: GABAPENTIN 400 MG CAP PO SCH ×3 (10:01→21:27)
[2022-02-22] MEDS: FAMOTIDINE 20 MG TAB PO SCH (10:01)
[2022-02-22] MEDS: predniSONE 20 MG TAB PO SCH ×2 (10:01→21:28)
[2022-02-22] MEDS: METOPROLOL SUCCINATE (ER) 25 MG TAB.ER.24H PO SCH (10:01)
[2022-02-22] MEDS: PATIENT'S OWN (Atogepant [Qulipta] 60 MG Tablet) PO SCH (10:02)
--- NOTE | 2022-02-22 13:09 | P.PN ---
Subjective Progress Note Date: 02/22/22 The patient is seen today 02/22/2022 in follow-up on the regular medical floor. She was admitted for an acute exacerbation of chronic obstructive pulmonary disease. She does have a history of smoking-related interstitial fibrosis/respiratory bronchiolitis from chronic tobacco dependence. She is improved today compared to yesterday. Maintaining good O2 saturations in the 90s on room air. She's been afebrile. Follow-up chest x-ray revealed similar interstitial and subtle hazy opacities throughout the lungs. Sputum culture was positive for Mckenna. Blood cultures reveal no growth. No new labs today. She is maintained on Symbicort, DuoNeb inhalations, antibiotics in the form of Levaquin and ceftriaxone. NicoDerm patch in place Objective - Vital Signs Vital signs: Vital Signs Temp 98.0 F 02/22/22 09:15 Pulse 96 02/22/22 11:42 Resp 16 02/22/22 09:15 BP 166/93 02/22/22 09:15 Pulse Ox 98 02/22/22 09:15 FiO2 Intake & Output 02/21/22 02/22/22 02/22/22 18:59 06:59 18:59 Other: Voiding Method Toilet # Voids 6 - Exam GENERAL EXAM: Alert, pleasant 46-year-old female, on room air, comfortable in no apparent distress. HEAD: Normocephalic. EYES: Normal reaction of pupils, equal size. NOSE: Clear with pink turbinates. THROAT: No erythema or exudates. NECK: No masses, no JVD. CHEST: No chest wall deformity. LUNGS: Equal air entry with faint crackles in the posterior bases. CVS: S1 and S2 normal with no audible murmur, regular rhythm. ABDOMEN: No hepatosplenomegaly, normal bowel sounds, no guarding or rigidity. SPINE: No scoliosis or deformity SKIN: No rashes CENTRAL NERVOUS SYSTEM: No focal deficits, tone is normal in all 4 extremities. EXTREMITIES: There is no peripheral edema. No clubbing, no cyanosis. Peripheral pulses are intact. - Labs CBC & Chem 7: 02/21/22 12:25 02/21/22 12:25 Labs: Abnormal Lab Results - Last 24 Hours (Table) 02/21/22 Range/Units 12:25 WBC 35.61 H (4.50-10.00) X 10*3/uL RBC 4.01 L (4.10-5.20) X 10*6/uL MCV 101.0 H (80.0-97.0) fL MCH 33.2 H (27.0-32.0) pg Plt Count 562 H (140-440) X 10*3/uL Plt Count Comment INCREASED A MPV 9.4 L (9.5-12.2) fL Absolute Nucleated RBC 0.04 H (0.00-0.00) X 10*3/uL Immature Gran # 1.12 H (0.00-0.04) X 10*3/uL Neutrophils # 29.22 H (1.80-7.70) X 10*3/uL Monocytes # 2.51 H (0.20-1.00) X 10*3/uL Basophils # 0.19 H (0.00-0.10) X 10*3/uL NRBC/100 WBC Diff 0.1 H (0.0-0.0) /100 WBCS Microbiology - Last 24 Hours (Table) 02/19/22 15:00 Gram Stain - Preliminary Sputum Sputum Culture - Preliminary Mckenna albicans 02/19/22 16:00 Blood Culture - Preliminary Blood No Growth after 48 hours 02/19/22 16:00 Blood Culture - Preliminary Blood No Growth after 48 hours Assessment and Plan Assessment: Acute exacerbation of COPD. Smoking-related interstitial fibrosis (SRIF). History of hypothyroidism. History of gastroesophageal reflux disease. History of hypertension. History of sleep apnea syndrome. History of chronic back pain. History of anxiety. Plan: The patient was seen and evaluated Medications reviewed Discontinue ceftriaxone and IV Levaquin Place on oral Levaquin Continue bronchodilators Cleared for discharge from the pulmonary standpoint Follow up with Dr. Truong in our office in 1 week I have personally seen and examined the patient, performed the documentation and the assessment and plan as written. Number of minutes spent on the visit: 10.
[2022-02-22] MEDS: LEVOFLOXACIN 750 MG TAB PO SCH (16:07)
[2022-02-22] MEDS: SYMBICORT 160-4.5 MCG INHALER INHALATION SCH (20:50)
--- NOTE | 2022-02-22 23:32 | P.PN ---
Subjective Progress Note Date: 02/22/22 Principal diagnosis: Pneumonia Patient is a 46-year female with a past medical history pertinent for COPD smoking presents hospital increasing shortness of breath patient noticed to have multifocal infiltrate elevated white count concerning for atypical pneumonia patient did have a negative COVID test. On today's evaluation that is 02/22/2022, the patient continues to be afebrile, patient is breathing comfortably on room air, the patient denies any chest pain, the patient cough has decreased in intensity less productive no hemoptysis no abdominal pain no diarrhea Objective - Vital Signs Vital signs: Vital Signs Temp 98.0 F 02/22/22 09:15 Pulse 88 02/22/22 15:24 Resp 16 02/22/22 09:15 BP 166/93 02/22/22 09:15 Pulse Ox 98 02/22/22 09:15 FiO2 Intake & Output 02/21/22 02/22/22 02/22/22 18:59 06:59 18:59 Other: Voiding Method Toilet # Voids 6 - Exam GENERAL DESCRIPTION: Middle-aged female lying in bed, no distress. No tachypnea or accessory muscle of respiration use. LUNGS: Unlabored breathing. Decrease intensity of breath sounds HEART: S1, S2, regular rate and rhythm. No loud murmur ABDOMEN: Soft, no tenderness , guarding or rigidity, no organomegaly EXTREMITIES: No edema of feet. - Labs CBC & Chem 7: 02/21/22 12:25 02/21/22 12:25 Labs: Abnormal Lab Results - Last 24 Hours (Table) 02/21/22 Range/Units 12:25 WBC 35.61 H (4.50-10.00) X 10*3/uL RBC 4.01 L (4.10-5.20) X 10*6/uL MCV 101.0 H (80.0-97.0) fL MCH 33.2 H (27.0-32.0) pg Plt Count 562 H (140-440) X 10*3/uL Plt Count Comment INCREASED A MPV 9.4 L (9.5-12.2) fL Absolute Nucleated RBC 0.04 H (0.00-0.00) X 10*3/uL Immature Gran # 1.12 H (0.00-0.04) X 10*3/uL Neutrophils # 29.22 H (1.80-7.70) X 10*3/uL Monocytes # 2.51 H (0.20-1.00) X 10*3/uL Basophils # 0.19 H (0.00-0.10) X 10*3/uL NRBC/100 WBC Diff 0.1 H (0.0-0.0) /100 WBCS Microbiology - Last 24 Hours (Table) 02/19/22 15:00 Gram Stain - Preliminary Sputum Sputum Culture - Preliminary Mckenna albicans 02/19/22 16:00 Blood Culture - Preliminary Blood No Growth after 48 hours 02/19/22 16:00 Blood Culture - Preliminary Blood No Growth after 48 hours Assessment and Plan (1) Atypical pneumonia Current Visit: Yes Status: Acute Code(s): J18.9 - PNEUMONIA, UNSPECIFIED ORGANISM SNOMED Code(s): 096497728 Plan: 1patient present to hospital with increasing shortness of breath cough and bring up some greenish sputum concerning for a COPD exacerbation and possible component of pneumonia likely community-acquired failing outpatient oral amoxicillin therapy. 2blood culture has been negative and sputum cultures are currently growing Mckenna which is likely colonizer. 3Patient with leukocytosis more likely steroid effect and will be monitored closely. 4patient had shown clinical improvement and will continue with the Levaquin Time with Patient: Less than 30
[2022-02-23] MEDS: ALPRAZolam 0.5 MG TAB PO PRN (00:46)
[2022-02-23] MEDS: SODIUM CHLORIDE 0.9% 1,000 ML IV SCH (03:38)
[2022-02-23] MEDS: LEVOTHYROXINE 50 MCG TAB PO SCH (07:17)
[2022-02-23] MEDS: SYMBICORT 160-4.5 MCG INHALER INHALATION SCH ×2 (07:30→20:38)
[2022-02-23] MEDS: IPRATROPIUM-ALBUTEROL 3 ML NEB INHALATION SCH ×4 (07:34→20:38)
[2022-02-23] MEDS: HYDROcodone/APAP 10-325MG 1 EACH TAB PO PRN ×3 (08:36→21:51)
[2022-02-23] MEDS: predniSONE 20 MG TAB PO SCH ×2 (08:38→19:53)
[2022-02-23] MEDS: ASPIRIN 81 MG PO SCH (08:38)
[2022-02-23] MEDS: GABAPENTIN 400 MG CAP PO SCH ×3 (08:39→21:51)
[2022-02-23] MEDS: PRAVASTATIN SODIUM 20 MG TAB PO SCH (08:39)
[2022-02-23] MEDS: buPROPion XL 150 MG TAB.ER.24H PO SCH ×2 (08:39→19:53)
[2022-02-23] MEDS: METOPROLOL SUCCINATE (ER) 25 MG TAB.ER.24H PO SCH (08:39)
[2022-02-23] MEDS: PANTOPRAZOLE 40 MG TABLET PO SCH (08:41)
[2022-02-23] MEDS: FAMOTIDINE 20 MG TAB PO SCH (08:42)
[2022-02-23] MEDS: NICOTINE 21MG/24HR PATCH TRANSDERM SCH (08:43)
[2022-02-23] MEDS: PATIENT'S OWN (Atogepant [Qulipta] 60 MG Tablet) PO SCH (09:53)
--- NOTE | 2022-02-23 10:15 | PN ---
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 HISTORY OF PRESENT ILLNESS: The patient is doing fairly well. Breathing is improving. Her blood pressure is elevated as is her white count. She is doing well otherwise. PHYSICAL EXAMINATION: VITAL SIGNS: Blood pressure 166/93 with a pulse of 84, respirations of 32, and she is afebrile. LUNGS: Breath sounds are diminished with occasional wheezes and rales. CARDIAC: Normal. ABDOMEN: Soft, nontender. IMPRESSION: 1. Bronchopneumonia. 2. Status post splenectomy. 3. Hypertension. 4. Leukocytosis. PLAN: Continue to monitor her blood pressure, pulmonary status, and white count. Platelets are also elevated at 562, which is probably a reflection of her splenectomy. MMODL / IJN: [id number] /
[2022-02-23 11:19] LABS: ALT 37 U/L (8-44); AST 41 U/L (13-35); African American GFR (CKD) 124.9 (60.0-200.0); Albumin 3.7 g/dL (3.8-4.9); Albumin/Globulin Ratio 1.32 (1.60-3.17); Alkaline Phosphatase 163 U/L (41-126); Blood Urea Nitrogen 6.9 mg/dL (9.0-27.0); Calcium 9.5 mg/dL (8.7-10.3); Carbon Dioxide 30.5 mmol/L (20.0-27.5); Chloride 103 mmol/L (96-109); Globulin 2.8 g/dL (1.6-3.3); Glucose 110 mg/dL (70-110); Non-African American GFR(CKD) 107.8 (60.0-200.0); Potassium 4.3 mmol/L (3.5-5.5); Sodium 145 mmol/L (135-145); Total Bilirubin <0.15 mg/dL (0.30-1.20); Total Protein 6.5 g/dL (6.2-8.2)
--- NOTE | 2022-02-23 11:54 | PN ---
PROGRESS NOTE DATE OF SERVICE: 02/21/2022 CHIEF COMPLAINT: Shortness of breath and pneumonia. HISTORY OF PRESENT ILLNESS AND PHYSICAL EXAMINATION: Details of this lady's history and physical can be found in the initial workup. LABORATORY STUDIES: While she is in the hospital, she had laboratory studies, details of which can be found in the laboratory section of her chart. COURSE IN THE HOSPITAL: After admission, she was placed on bedrest, started on intravenous fluids, antibiotics, updrafts and steroids. REVIEW OF SYSTEMS: She has not had any fever, chills, chest pain, cough, etc. PHYSICAL EXAMINATION: CHEST: Clear except breath sounds are somewhat vesicular. CARDIAC: Normal. ABDOMEN: Soft and nontender. EXTREMITIES: Normal. IMPRESSION: 1. Bronchopneumonia in post splenectomy patient. 2. Chronic obstructive pulmonary disease. PLAN: Continue with current program and decrease steroids to prednisone 20 mg twice a day and then continue to taper. MMODL / IJN: [id number] /
[2022-02-23] MEDS: FLUCONAZOLE 100 MG TAB PO SCH (11:55)
[2022-02-23 12:43] LABS: ALT 36 U/L (4-34); AST 53 U/L (14-36); African American GFR (CKD) >90 (>60 ml/min/1.73 sqM); Albumin 3.7 g/dL (3.5-5.0); Albumin/Globulin Ratio 1.3; Alkaline Phosphatase 166 U/L (38-126); Anion Gap 8 mmol/L; Blood Urea Nitrogen 7 mg/dL (7-17); Calcium 8.8 mg/dL (8.4-10.2); Carbon Dioxide 29 mmol/L (22-30); Chloride 105 mmol/L (98-107); Globulin 2.9 g/dL; Glucose 95 mg/dL (74-99); Non-African American GFR(CKD) >90 (>60 ml/min/1.73 sqM); Potassium 3.9 mmol/L (3.5-5.1); Sodium 142 mmol/L (137-145); Total Bilirubin 0.4 mg/dL (0.2-1.3); Total Protein 6.6 g/dL (6.3-8.2)
[2022-02-23 12:49] LABS: Basophils # (M) 0 X 10*3/uL (0.00-0.10); Eosinophils # (M) 0 X 10*3/uL (0.04-0.35); HCT 44.1 % (37.2-46.3); HGB 14.3 g/dL (12.0-15.0); MCH 32.7 pg (27.0-32.0); MCHC 32.4 g/dL (32.0-37.0); MCV 100.9 fL (80.0-97.0); Macrocytosis (M) 2+; Mean Platelet Volume 9.1 fL (9.5-12.2); Monocytes # (M) 2.38 X 10*3/uL (0.20-1.00); Myelocytes % 9 % (0-0); NRBC Per 100 WBC 0.2 /100 WBCS (0.0-0.0); Neutrophils # (M) 17.99 X 10*3/uL (2.00-8.90); Neutrophils % (M) 68 %; Platelet Count 586 X 10*3/uL (140-440); RBC 4.37 X 10*6/uL (4.10-5.20); RDW 12.8 % (11.5-14.5); WBC 26.45 X 10*3/uL (4.50-10.00)
--- NOTE | 2022-02-23 14:05 | P.PN ---
Subjective Progress Note Date: 02/23/22 The patient is seen today 02/22/2022 in follow-up on the regular medical floor. She was admitted for an acute exacerbation of chronic obstructive pulmonary disease. She does have a history of smoking-related interstitial fibrosis/respiratory bronchiolitis from chronic tobacco dependence. She is improved today compared to yesterday. Maintaining good O2 saturations in the 90s on room air. She's been afebrile. Follow-up chest x-ray revealed similar interstitial and subtle hazy opacities throughout the lungs. Sputum culture was positive for Mckenna. Blood cultures reveal no growth. No new labs today. She is maintained on Symbicort, DuoNeb inhalations, antibiotics in the form of Levaquin and ceftriaxone. NicoDerm patch in place The patient is seen today 02/23/2022 in follow-up on the regular medical floor. She is currently up ambulating in the hallway. Improved and feeling back to her baseline. No worsening shortness of breath, cough or congestion. Maintaining O2 saturation 98% on 2 L/m per nasal cannula. Remains afebrile. Blood culture revealed no growth. White count 26.4. Platelets 586. Hemoglobin 14.3. Sodium 142. Potassium 3.9. Bicarb 29. BUN 7. Creatinine 0.41. AST 53. ALT 36. She is continued on DuoNeb inhalations, Symbicort, prednisone taper. NicoDerm patch in place. Antibiotics in the form of Levaquin. Objective - Vital Signs Vital signs: Vital Signs Temp 98.3 F 02/23/22 07:36 Pulse 98 02/23/22 10:40 Resp 18 02/23/22 08:00 BP 166/98 02/23/22 07:36 Pulse Ox 98 02/23/22 07:36 FiO2 Intake & Output 02/22/22 02/23/22 02/23/22 18:59 06:59 18:59 Other: Voiding Method Toilet Toilet # Voids 2 4 - Exam GENERAL EXAM: Alert, 46-year-old female, on 2 L nasal cannula, up ambulating in hallway, comfortable in no apparent distress. HEAD: Normocephalic. EYES: Normal reaction of pupils, equal size. NOSE: Clear with pink turbinates. THROAT: No erythema or exudates. NECK: No masses, no JVD. CHEST: No chest wall deformity. LUNGS: Equal air entry with faint crackles in the posterior bases. CVS: S1 and S2 normal with no audible murmur, regular rhythm. ABDOMEN: No hepatosplenomegaly, normal bowel sounds, no guarding or rigidity. SPINE: No scoliosis or deformity SKIN: No rashes CENTRAL NERVOUS SYSTEM: No focal deficits, tone is normal in all 4 extremities. EXTREMITIES: There is no peripheral edema. No clubbing, no cyanosis. Peripheral pulses are intact. - Labs CBC & Chem 7: 02/23/22 07:44 02/23/22 11:37 Labs: Abnormal Lab Results - Last 24 Hours (Table) 02/23/22 02/23/22 02/23/22 Range/Units 07:44 07:44 11:37 WBC 26.45 H (4.50-10.00) X 10*3/uL MCV 100.9 H (80.0-97.0) fL MCH 32.7 H (27.0-32.0) pg Plt Count 586 H (140-440) X 10*3/uL Plt Count Comment INCREASED A MPV 9.1 L (9.5-12.2) fL Absolute Nucleated RBC 0.05 H (0.00-0.00) X 10*3/uL Myelocytes % 9 H (0-0) % Neutrophils # (Manual) 17.99 H (2.00-8.90) X 10*3/uL Monocytes # (Manual) 2.38 H (0.20-1.00) X 10*3/uL Eosinophils # (Manual) 0 L (0.04-0.35) X 10*3/uL NRBC/100 WBC Diff 0.2 H (0.0-0.0) /100 WBCS Carbon Dioxide 30.5 H (20.0-27.5) mmol/L BUN 6.9 L (9.0-27.0) mg/dL Creatinine 0.41 L (0.52-1.04) mg/dL BUN/Creatinine Ratio 11.50 L (12.00-20.00) Ratio Total Bilirubin <0.15 L (0.30-1.20) mg/dL AST 41 H 53 H (13-35) U/L ALT 36 H (4-34) U/L Alkaline Phosphatase 163 H 166 H (41-126) U/L C-Reactive Protein 2.90 H (0.00-0.80) mg/dL Albumin 3.7 L (3.8-4.9) g/dL Albumin/Globulin Ratio 1.32 L (1.60-3.17) g/dL Microbiology - Last 24 Hours (Table) 02/19/22 15:00 Gram Stain - Final Sputum Sputum Culture - Final Mckenna albicans 02/19/22 16:00 Blood Culture - Preliminary Blood No Growth after 72 hours 02/19/22 16:00 Blood Culture - Preliminary Blood No Growth after 72 hours Assessment and Plan Assessment: Acute exacerbation of COPD. Smoking-related interstitial fibrosis (SRIF). History of hypothyroidism. History of gastroesophageal reflux disease. History of hypertension. History of sleep apnea syndrome. History of chronic back pain. History of anxiety. Plan: The patient was seen and evaluated Medications and labs reviewed Diflucan 100 mg daily for 7 days Continue Levaquin Continue bronchodilators Cleared for discharge from the pulmonary standpoint Follow up with Dr. Truong in our office in 1 week I have personally seen and examined the patient, performed the documentation and the assessment and plan as written. Number of minutes spent on the visit: 10.
[2022-02-23] MEDS: NYSTATIN 100,000 UNIT/ML SUSP 500,000 UNIT/5 ML CUP PO SCH ×3 (14:44→21:51)
--- NOTE | 2022-02-23 15:53 | XR ---
EXAMINATION TYPE: XR chest 2V DATE OF EXAM: 02/23/2022 COMPARISON: 02/21/2022 INDICATION: Pneumonia TECHNIQUE: Frontal and lateral views of the chest are obtained. FINDINGS: The heart size is normal. The pulmonary vasculature is normal. There is mild diffuse increased lung markings greater than left lower lung field. This is worsening. Correlate for pneumonia. IMPRESSION: 1. Worsening left lower lobe infiltrate with some mild diffuse bilateral lung infiltrates. Correlate for pneumonia. Follow-up is recommended.
[2022-02-23] MEDS: LEVOFLOXACIN 750 MG TAB PO SCH (17:16)
[2022-02-23 19:29] LABS: HCT 44.9 % (37.2-46.3); HGB 14.7 g/dL (12.0-15.0); MCH 33.1 pg (27.0-32.0); MCHC 32.7 g/dL (32.0-37.0); MCV 101.1 fL (80.0-97.0); Mean Platelet Volume 9.3 fL (9.5-12.2); NRBC Per 100 WBC 0.1 /100 WBCS (0.0-0.0); Platelet Count 528 X 10*3/uL (140-440); RBC 4.44 X 10*6/uL (4.10-5.20); RDW 13.2 % (11.5-14.5); WBC 32.27 X 10*3/uL (4.50-10.00)
[2022-02-23 19:31] LABS: Basophils # (M) 0 X 10*3/uL (0.00-0.10); Eosinophils # (M) 0 X 10*3/uL (0.04-0.35); Lymphocytes # (M) 2.26 X 10*3/uL (0.90-5.00); Metamyelocytes % 2 % (0-0); Monocytes # (M) 0.97 X 10*3/uL (0.20-1.00); Myelocytes % 8 % (0-0); Neutrophils # (M) 25.82 X 10*3/uL (2.00-8.90); Neutrophils % (M) 80 %
[2022-02-24] MEDS: ALPRAZolam 0.5 MG TAB PO PRN ×2 (01:40→23:32)
[2022-02-24] MEDS: LEVOTHYROXINE 50 MCG TAB PO SCH (05:10)
[2022-02-24] MEDS: SODIUM CHLORIDE 0.9% 1,000 ML IV SCH ×3 (06:51→14:32)
[2022-02-24] MEDS: HYDROcodone/APAP 10-325MG 1 EACH TAB PO PRN ×3 (08:36→19:54)
[2022-02-24] MEDS: buPROPion XL 150 MG TAB.ER.24H PO SCH ×2 (08:38→19:54)
[2022-02-24] MEDS: PANTOPRAZOLE 40 MG TABLET PO SCH (08:38)
[2022-02-24] MEDS: GABAPENTIN 400 MG CAP PO SCH ×3 (08:38→22:39)
[2022-02-24] MEDS: predniSONE 20 MG TAB PO SCH ×2 (08:39→19:54)
[2022-02-24] MEDS: NYSTATIN 100,000 UNIT/ML SUSP 500,000 UNIT/5 ML CUP PO SCH ×4 (08:39→22:39)
[2022-02-24] MEDS: LOSARTAN 50 MG TAB PO SCH (08:39)
[2022-02-24] MEDS: FLUCONAZOLE 100 MG TAB PO SCH (08:39)
[2022-02-24] MEDS: METOPROLOL SUCCINATE (ER) 25 MG TAB.ER.24H PO SCH (08:40)
[2022-02-24] MEDS: ASPIRIN 81 MG PO SCH (08:41)
[2022-02-24] MEDS: FAMOTIDINE 20 MG TAB PO SCH (08:41)
[2022-02-24] MEDS: NICOTINE 21MG/24HR PATCH TRANSDERM SCH (08:42)
[2022-02-24] MEDS: PATIENT'S OWN (Atogepant [Qulipta] 60 MG Tablet) PO SCH (08:46)
[2022-02-24] MEDS: PRAVASTATIN SODIUM 20 MG TAB PO SCH (08:49)
--- NOTE | 2022-02-24 09:19 | PN ---
PROGRESS NOTE CHIEF COMPLAINT: Shortness of breath and pneumonitis. HISTORY OF PRESENT ILLNESS: This lady is doing a little bit better. Breathing is improving. She is able to move about with less shortness of breath. She has developed yeast dermatitis. PHYSICAL EXAMINATION: CHEST: Clear. CARDIAC: Normal. HEENT: Mucous membranes are slightly erythematous. IMPRESSION: 1. Pneumonitis. 2. Chronic obstructive pulmonary disease. 3. Shortness of breath. 4. Yeast dermatitis. PLAN: 1. Mycostatin oral suspension. 2. Stop steroids. MMODL / IJN: [id number] /
[2022-02-24] MEDS: SYMBICORT 160-4.5 MCG INHALER INHALATION SCH ×2 (09:23→20:42)
[2022-02-24] MEDS: IPRATROPIUM-ALBUTEROL 3 ML NEB INHALATION SCH ×4 (09:23→20:42)
--- NOTE | 2022-02-24 14:18 | P.PN ---
Subjective Progress Note Date: 02/24/22 The patient is seen today 02/22/2022 in follow-up on the regular medical floor. She was admitted for an acute exacerbation of chronic obstructive pulmonary disease. She does have a history of smoking-related interstitial fibrosis/respiratory bronchiolitis from chronic tobacco dependence. She is improved today compared to yesterday. Maintaining good O2 saturations in the 90s on room air. She's been afebrile. Follow-up chest x-ray revealed similar interstitial and subtle hazy opacities throughout the lungs. Sputum culture was positive for Mckenna. Blood cultures reveal no growth. No new labs today. She is maintained on Symbicort, DuoNeb inhalations, antibiotics in the form of Levaquin and ceftriaxone. NicoDerm patch in place The patient is seen today 02/23/2022 in follow-up on the regular medical floor. She is currently up ambulating in the hallway. Improved and feeling back to her baseline. No worsening shortness of breath, cough or congestion. Maintaining O2 saturation 98% on 2 L/m per nasal cannula. Remains afebrile. Blood culture revealed no growth. White count 26.4. Platelets 586. Hemoglobin 14.3. Sodium 142. Potassium 3.9. Bicarb 29. BUN 7. Creatinine 0.41. AST 53. ALT 36. She is continued on DuoNeb inhalations, Symbicort, prednisone taper. NicoDerm patch in place. Antibiotics in the form of Levaquin. The patient is seen today 02/24/2022 in follow-up on the regular medical floor. He sitting up at the bedside. Awake and alert in no acute distress. No worsening shortness of breath, cough or congestion. She will continue to have dyspnea with exertion based on her lung function. Chest x-ray continues to show diffuse lung margins, blood cultures revealed no growth. Sputum culture revealed no growth except for Mckenna and she is on Diflucan. She is continued on DuoNeb inhalations, Symbicort, prednisone. Antibiotics in the form of Levaq uin. NicoDerm patch in place. Objective - Vital Signs Vital signs: Vital Signs Temp 97.5 F L 02/24/22 13:55 Pulse 67 02/24/22 13:55 Resp 16 02/24/22 13:55 BP 142/84 02/24/22 13:55 Pulse Ox 98 02/24/22 13:55 FiO2 Intake & Output 02/23/22 02/24/22 02/24/22 18:59 06:59 18:59 Other: Voiding Method Toilet Toilet # Voids 5 2 - Exam GENERAL EXAM: Alert, 46-year-old female, on room air, comfortable in no apparent distress. HEAD: Normocephalic. EYES: Normal reaction of pupils, equal size. NOSE: Clear with pink turbinates. THROAT: No erythema or exudates. NECK: No masses, no JVD. CHEST: No chest wall deformity. LUNGS: Equal air entry with faint crackles in the posterior bases. CVS: S1 and S2 normal with no audible murmur, regular rhythm. ABDOMEN: No hepatosplenomegaly, normal bowel sounds, no guarding or rigidity. SPINE: No scoliosis or deformity SKIN: No rashes CENTRAL NERVOUS SYSTEM: No focal deficits, tone is normal in all 4 extremities. EXTREMITIES: There is no peripheral edema. No clubbing, no cyanosis. Peripheral pulses are intact. - Labs CBC & Chem 7: 02/23/22 11:37 02/23/22 11:37 Labs: Abnormal Lab Results - Last 24 Hours (Table) 02/23/22 Range/Units 11:37 WBC 32.27 H (4.50-10.00) X 10*3/uL MCV 101.1 H (80.0-97.0) fL MCH 33.1 H (27.0-32.0) pg Plt Count 528 H (140-440) X 10*3/uL Plt Count Comment INCREASED A MPV 9.3 L (9.5-12.2) fL Absolute Nucleated RBC 0.03 H (0.00-0.00) X 10*3/uL Metamyelocytes % 2 H (0-0) % Myelocytes % 8 H (0-0) % Neutrophils # (Manual) 25.82 H (2.00-8.90) X 10*3/uL Eosinophils # (Manual) 0 L (0.04-0.35) X 10*3/uL NRBC/100 WBC Diff 0.1 H (0.0-0.0) /100 WBCS Microbiology - Last 24 Hours (Table) 02/19/22 16:00 Blood Culture - Preliminary Blood No Growth after 96 hours 02/19/22 16:00 Blood Culture - Preliminary Blood No Growth after 96 hours 02/19/22 15:00 Gram Stain - Final Sputum Sputum Culture - Final Mckenna albicans Assessment and Plan Assessment: Acute exacerbation of COPD. Smoking-related interstitial fibrosis (SRIF). History of hypothyroidism. History of gastroesophageal reflux disease. History of hypertension. History of sleep apnea syndrome. History of chronic back pain. History of anxiety. Plan: The patient was seen and evaluated Medications and labs reviewed Cleared for discharge from the pulmonary standpoint Keep her scheduled appointment with Dr. Truong 03/05/2022 I have personally seen and examined the patient, performed the documentation and the assessment and plan as written. Number of minutes spent on the visit: 10.
[2022-02-24] MEDS: LEVOFLOXACIN 750 MG TAB PO SCH (14:34)
[2022-02-24] MEDS ORDERED: BUTALB/APAP/CAFF 50-325-40MG TAB PO PRN (15:14)
[2022-02-25] MEDS: LEVOTHYROXINE 50 MCG TAB PO SCH (04:52)
[2022-02-25] MEDS: HYDROcodone/APAP 10-325MG 1 EACH TAB PO PRN (04:52)
[2022-02-25] MEDS: SODIUM CHLORIDE 0.9% 1,000 ML IV SCH ×2 (06:51→12:17)
[2022-02-25] MEDS: SYMBICORT 160-4.5 MCG INHALER INHALATION SCH (07:28)
[2022-02-25] MEDS: IPRATROPIUM-ALBUTEROL 3 ML NEB INHALATION SCH ×2 (07:28→10:57)
[2022-02-25 08:30] VITALS: BP 149/89; RESP 17; TEMP 98.4
[2022-02-25] MEDS: PATIENT'S OWN (Atogepant [Qulipta] 60 MG Tablet) PO SCH (08:38)
[2022-02-25] MEDS: buPROPion XL 150 MG TAB.ER.24H PO SCH (10:14)
[2022-02-25] MEDS: FAMOTIDINE 20 MG TAB PO SCH (10:14)
[2022-02-25] MEDS: NICOTINE 21MG/24HR PATCH TRANSDERM SCH (10:14)
[2022-02-25] MEDS: PANTOPRAZOLE 40 MG TABLET PO SCH (10:15)
[2022-02-25] MEDS: LOSARTAN 50 MG TAB PO SCH (10:15)
[2022-02-25] MEDS: PRAVASTATIN SODIUM 20 MG TAB PO SCH (10:15)
[2022-02-25] MEDS: ASPIRIN 81 MG PO SCH (10:16)
[2022-02-25] MEDS: FLUCONAZOLE 100 MG TAB PO SCH (10:16)
[2022-02-25] MEDS: METOPROLOL SUCCINATE (ER) 25 MG TAB.ER.24H PO SCH (10:16)
[2022-02-25] MEDS: predniSONE 20 MG TAB PO SCH (10:16)
[2022-02-25] MEDS: GABAPENTIN 400 MG CAP PO SCH (10:17)
[2022-02-25] MEDS: NYSTATIN 100,000 UNIT/ML SUSP 500,000 UNIT/5 ML CUP PO SCH (10:17)
[2022-02-25 11:02] LABS: HCT 40.8 % (34.0-46.0); HGB 13.7 gm/dL (11.4-16.0); MCH 33.9 pg (25.0-35.0); MCHC 33.6 g/dL (31.0-37.0); MCV 100.7 fL (80.0-100.0); Mean Platelet Volume 7.4; Platelet Count 492 k/uL (150-450); RBC 4.05 m/uL (3.80-5.40); RDW 12.3 % (11.5-15.5); WBC 30.3 k/uL (3.8-10.6)
[2022-02-25 11:08] VITALS: PULSE 86
[2022-02-25 11:16] LABS: Band Neutrophils % 3 %; Lymphocytes # (M) 3.33 k/uL (1.0-4.8); Metamyelocytes # (M) 2.42 k/uL (0); Metamyelocytes % 8 %; Monocytes # (M) 2.42 k/uL (0-1.0); Myelocytes % 1 %; Neutrophils % (M) 69 %; Nucleated Red Blood Cells 0 /100 WBC (0-0); Polychromasia Present; Total Cells Counted 100
--- NOTE | 2022-02-25 11:38 | DS ---
DISCHARGE SUMMARY CHIEF COMPLAINT: Difficulty breathing. HISTORY OF PRESENT ILLNESS AND PHYSICAL EXAMINATION: Details of this lady's history and physical can be found in the initial workup. COURSE IN HOSPITAL: After admission, she was placed on bedrest on intravenous fluids and placed on updrafts and IV fluids and antibiotics. She was seen and followed by Pulmonology. Her chest cleared fairly well and shortness of breath was improved. While she is in the hospital, she maintained a very high WBC, which could be chronic for her. She had no fever, chills, nausea, vomiting, etc. She was stable and felt that she could be discharged. She will go home and attempt her usual activity, diet, and medication. She will be sent home on antibiotics for several more days and seen in the office. She will eventually be referred to Hematology for further evaluation of her leukocytosis. FINAL DIAGNOSES: 1. Bronchial pneumonia. 2. Status post splenectomy. 3. Leukocytosis. OPERATIONS: None. CONSULTATION: Pulmonology. She is improved. MMODL / IJN: [id number] /
--- NOTE | 2022-02-25 12:17 | PN ---
PROGRESS NOTE DATE OF SERVICE: 02/24/2022 CHIEF COMPLAINT: Pneumonitis and leukocytosis. HISTORY OF PRESENT ILLNESS: This lady is doing fairly well, but her white count remains very high. This could be related to her splenectomy. She feels fine and she is having very little shortness of breath now. She has had no fever, chills, or cough. She is having some trouble with headaches and she normally takes Fioricet. PHYSICAL EXAMINATION: VITAL SIGNS: Normal. CHEST: Clear. CARDIAC: Normal. ABDOMEN: Soft, nontender. IMPRESSION: 1. Pneumonitis. 2. Leukocytosis. 3. Status post splenectomy. 4. Headache. PLAN: 1. Fioricet for headache. 2. Refer to Hematology for evaluation of her leukocytosis. MMODL / IJN: [id number] /
--- NOTE | 2022-02-25 12:54 | P.PN ---
Subjective Progress Note Date: 02/25/22 The patient is seen today 02/22/2022 in follow-up on the regular medical floor. She was admitted for an acute exacerbation of chronic obstructive pulmonary disease. She does have a history of smoking-related interstitial fibrosis/respiratory bronchiolitis from chronic tobacco dependence. She is improved today compared to yesterday. Maintaining good O2 saturations in the 90s on room air. She's been afebrile. Follow-up chest x-ray revealed similar interstitial and subtle hazy opacities throughout the lungs. Sputum culture was positive for Mckenna. Blood cultures reveal no growth. No new labs today. She is maintained on Symbicort, DuoNeb inhalations, antibiotics in the form of Levaquin and ceftriaxone. NicoDerm patch in place The patient is seen today 02/23/2022 in follow-up on the regular medical floor. She is currently up ambulating in the hallway. Improved and feeling back to her baseline. No worsening shortness of breath, cough or congestion. Maintaining O2 saturation 98% on 2 L/m per nasal cannula. Remains afebrile. Blood culture revealed no growth. White count 26.4. Platelets 586. Hemoglobin 14.3. Sodium 142. Potassium 3.9. Bicarb 29. BUN 7. Creatinine 0.41. AST 53. ALT 36. She is continued on DuoNeb inhalations, Symbicort, prednisone taper. NicoDerm patch in place. Antibiotics in the form of Levaquin. The patient is seen today 02/24/2022 in follow-up on the regular medical floor. He sitting up at the bedside. Awake and alert in no acute distress. No worsening shortness of breath, cough or congestion. She will continue to have dyspnea with exertion based on her lung function. Chest x-ray continues to show diffuse lung margins, blood cultures revealed no growth. Sputum culture revealed no growth except for Mckenna and she is on Diflucan. She is continued on DuoNeb inhalations, Symbicort, prednisone. Antibiotics in the form of Levaq uin. NicoDerm patch in place. The patient is seen today 02/25/2022 in follow-up on the regular medical floor. She is currently sitting up in bed. Awake and alert in no acute distress. White count 30.3. Hemoglobin 13.7. Platelets 492. Blood cultures reveal no growth. She is maintaining good O2 saturations in the mid 90s on 2 L/m per nasal cannula. She's been afebrile. Hemodynamically stable. Up ambulating in the hallway. She remains on antibiotics in the form of Levaquin. Continued on Diflucan, Symbicort, DuoNeb inhalations, prednisone taper. NicoDerm patch in place Objective - Vital Signs Vital signs: Vital Signs Temp 98.4 F 02/25/22 08:00 Pulse 86 02/25/22 11:07 Resp 17 02/25/22 08:00 BP 149/89 02/25/22 08:00 Pulse Ox 95 02/25/22 08:00 FiO2 21 02/25/22 07:35 Intake & Output 02/24/22 02/25/22 02/25/22 18:59 06:59 18:59 Intake Total 800 Balance 800 Intake: Intake, IV Titration 800 Amount Sodium Chloride 0.9% 1, 800 000 ml @ 100 mls/hr IV . Q10H [facility] Rx#:[id number] Other: Voiding Method Toilet Toilet # Voids 3 - Exam GENERAL EXAM: Alert, 46-year-old female, on room air, active, comfortable in no apparent distress. HEAD: Normocephalic. EYES: Normal reaction of pupils, equal size. NOSE: Clear with pink turbinates. THROAT: No erythema or exudates. NECK: No masses, no JVD. CHEST: No chest wall deformity. LUNGS: Equal air entry with faint crackles in the posterior bases. CVS: S1 and S2 normal with no audible murmur, regular rhythm. ABDOMEN: No hepatosplenomegaly, normal bowel sounds, no guarding or rigidity. SPINE: No scoliosis or deformity SKIN: No rashes CENTRAL NERVOUS SYSTEM: No focal deficits, tone is normal in all 4 extremities. EXTREMITIES: There is no peripheral edema. No clubbing, no cyanosis. Peripheral pulses are intact. - Labs CBC & Chem 7: 02/25/22 10:44 02/23/22 11:37 Labs: Abnormal Lab Results - Last 24 Hours (Table) 02/25/22 Range/Units 10:44 WBC 30.3 H (3.8-10.6) k/uL MCV 100.7 H (80.0-100.0) fL Plt Count 492 H (150-450) k/uL Neutrophils # (Manual) 21.80 H (1.3-7.7) k/uL Monocytes # (Manual) 2.42 H (0-1.0) k/uL Metamyelocytes # (Man) 2.42 H (0) k/uL Myelocytes # (Manual) 0.30 H (0) k/uL Microbiology - Last 24 Hours (Table) 02/19/22 16:00 Blood Culture - Preliminary Blood No Growth after 120 hours 02/19/22 16:00 Blood Culture - Preliminary Blood No Growth after 120 hours Assessment and Plan Assessment: Acute exacerbation of COPD. Smoking-related interstitial fibrosis (SRIF). History of hypothyroidism. History of gastroesophageal reflux disease. History of hypertension. History of sleep apnea syndrome. History of chronic back pain. History of anxiety. Plan: The patient was seen and evaluated Medications and labs reviewed Continued on Levaquin Continue her home pulmonary medications Continue prednisone taper Keep her scheduled appointment with Dr. Truong 03/05/2022 I have personally seen and examined the patient, performed the documentation and the assessment and plan as written. Number of minutes spent on the visit: 10.
--- NOTE | 2022-02-25 19:54 | P.CONS ---
History of Present Illness - Reason for Consult Consult date: 02/25/22 leukocytosis Requesting physician: Keven Kebede - Chief Complaint SOB - History of Present Illness This case is a very pleasant female patient of Dr. Vasquez. She has a complicated past medical history as stated below. We have been asked to see the patient for leukocytosis and thrombocytosis. She is currently admitted with COPD exacerbation. Fungus identified on re spiratory cultures. She is feeling better since admission. WBC 32.2, platelet count 528,000. Absolute neutrophil count 25.82. Long-standing history of smoking, about a pack a day since age 11, COPD requiring treatment for exacerbations on a regular basis. Gastric sleeve procedure in 03/05. This was complicated by intra-abdominal hemorrhage in 04/04 requiring laparotomy and splenectomy. She then had postoperative ARDS requiring mechanical ventilation including tracheostomy placement. In 05/06 she developed a leak from a gastric sleeve which was repaired via advanced endoscopic procedures. Unfortunately the patient then developed juanito gastric abscesses. She was treated with radiation placement and IV antibiotics. Again admitted because of development of sepsis requiring further drains and prolonged IV antibiotics and hospitalization. She was finally able to be discharged in mid 2018. She was referred to Dr. Vasquez because of persistent elevation of WBC and platelets. For reference, in 02/05, WBC was 22.27, hemoglobin 12.6 and platelets 694. Differential showed neutrophil predominance with ANC of 19.07. Minimal elevation of eosinophils were seen. Subsequently in 02/05 WBC was 31.21 with similar differential pattern, with ANC of 26.99. At that time the patient was also being evaluated for possible cholecystitis. She was on steroids because of COPD exacerbation. Pt reported Hx of WBC elevation, even prior to her bariatric surgery. She states that she had a bone marrow aspiration biopsy in her 20s which was negative. The patient states that she was smoking at that time. She is premenopausal and also reports heavy periods ultimately requiring uterine ablation in late 2020. US of the abdomen in 11/05 showed a large gallbladder and CBD with sludge. Chest x-ray in 02/05 had shown mild interstitial opacities in bilateral mid to lower zones suggestive of viral p neumonia. Bronchioloalveolar lavage via bronchoscopy in 01/06 had shown some minimal blood and inflammatory cells. Patient had BCR ABL testing done that was negative. Workup for other causes of reactive increased did reveal iron deficiency with ferritin in the 20 range and saturation of only 7%. She has received parenteral iron in the past, Last time July 2021. He has been to her follow-up appointments. She has remained stable. Review of Systems 10 point ROS is neg except as stated in HPI Past Medical History Past Medical History: Asthma, COPD, GERD/Reflux, Hypertension, Musculoskeletal Disorder, Neurologic Disorder, Sleep Apnea/CPAP/BIPAP, Thyroid Disorder Additional Past Medical History / Comment(s): smoking-related interstitial lung disease, doesn't use CPAP, history of seizure at the age of 16 related to med. to stop breast milk, endometriosis, chronic back pain, plantar fasciitis, hx. of Achilles tendinitis, probably antibiotic induced. She also has history of hypothyroidism, ALLERGIC rhinitis, migraines, current steroids for wheezing & cough, uses oxygen prn, recent iron infusion History of Any Multi-Drug Resistant Organisms: None Reported Past Surgical History: Bariatric Surgery, Tubal Ligation, Uterine Ablation Additional Past Surgical History / Comment(s): LEEP PROCEDURE X 2, EGD, BACK INJECTIONS FOR PAIN. The patient has also undergone thoracic/thoracoscopic wedge biopsy of the right lung. 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; R and Y bypass at [facility] 2019,TRACHEOTOMY-RESOLVED Past Anesthesia/Blood Transfusion Reactions: Motion Sickness Additional Past Anesthesia/Blood Transfusion Reaction / Comm: no problem w/blood transfusion Smoking Status: Current some day smoker - Past Family History Sister(s) Family Medical History: Cancer Mother Family Medical History: Cancer Additional Family Medical History / Comment(s): breast cancer Father Family Medical History: COPD, CVA/TIA, Myocardial Infarction ([place]) Additional Family Medical History / Comment(s): HEART PROBLEMS, AT AGE 64 Medications and Allergies Home Medications Medication Instructions Recorded Confirmed Type Levothyroxine Sodium [Synthroid] 50 mcg PO DAILY 01/05/14 02/19/22 History ALPRAZolam [Xanax] 0.5 mg PO TID PRN 11/24/17 02/19/22 History Albuterol Nebulized [Ventolin 2.5 mg INHALATION RT-QID PRN 05/28/18 02/19/22 History Nebulized] Multivitamins, Thera [Multivitamin 1 tab PO DAILY 05/28/18 02/19/22 History (formulary)] Pantoprazole Sodium [Protonix] 40 mg PO DAILY 05/28/18 02/19/22 History Vitamin A [Vitamin A (8,000 Units 8,000 unit PO DAILY 12/19/19 02/19/22 History = 2,400 MCG)] Zinc Sulfate 220 mg PO DAILY 12/19/19 02/19/22 History Cyclobenzaprine [Flexeril] 10 mg PO HS 10/29/20 02/19/22 History Metoprolol Succinate (ER) [Toprol 12.5 mg PO DAILY 10/29/20 02/19/22 History XL] Meclizine [Antivert] 12.5 mg PO BID PRN 01/23/21 02/19/22 History buPROPion HCL [Wellbutrin XL] 150 mg PO BID 01/23/21 02/19/22 History Albuterol Inhaler [Ventolin Hfa 2 puff INHALATION RT-QID PRN 08/21/21 02/19/22 History Inhaler] Atogepant [Qulipta] 60 mg PO DAILY 08/21/21 02/19/22 History Ubrogepant [Ubrelvy] 100 mg PO DAILY PRN 08/21/21 02/19/22 History Pravastatin Sodium [Pravachol] 20 mg PO DAILY 01/03/22 02/19/22 History Aspirin 81 mg PO DAILY 02/12/22 02/19/22 History Gabapentin [Neurontin] 400 mg PO TID 02/12/22 02/19/22 History Ofatumumab [Kesimpta Pen] 20 mg SQ Q30D 02/12/22 02/19/22 History Famotidine 40 mg PO DAILY 02/19/22 02/19/22 History Fluticasone/Umeclidin/Vilanter 1 puff INHALATION RT-DAILY 02/19/22 02/19/22 History [Trelegy Ellipta 100-62.5-25] HYDROcodone/APAP 10-325MG [[place] 1 tab PO TID PRN 02/19/22 02/19/22 History 10-325] Budesonide-Formot 160-4.5 Mcg 2 puff INHALATION RT-BID #1 each 02/25/22 Rx [Symbicort 160-4.5 Mcg Inhaler] Fluconazole [Diflucan] 100 mg PO DAILY #10 tab 02/25/22 Rx Levofloxacin [Levaquin] 750 mg PO DAILY@1700 #10 tab 02/25/22 Rx Losartan [Cozaar] 100 mg PO DAILY #30 tab 02/25/22 Rx Allergies Allergy/AdvReac Type Severity Reaction Status Date / Time bee venom protein (honey bee) Allergy SWELLING , Verified 02/19/22 17:21 AND ITCHING nitrofurantoin Allergy Rash/Hives Verified 02/19/22 17:21 [From Macrobid] nitrofurantoin Allergy Rash/Hives Verified 02/19/22 17:21 macrocrystalline [From Macrobid] moxifloxacin [From Avelox] AdvReac Nausea & Verified 02/19/22 17:21 Vomiting seasonal allergies Allergy Unknown Uncoded 02/19/22 17:21 Physical Exam Vitals: Vital Signs Temp Pulse Pulse Resp BP Pulse Ox FiO2 02/25/22 08:00 98.4 F 97 17 149/89 95 02/25/22 07:41 93 02/25/22 07:35 95 21 02/25/22 07:29 89 02/25/22 02:00 98.6 F 101 H 16 143/85 97 02/24/22 20:55 101 H 02/24/22 20:44 97 02/24/22 19:48 98.8 F 84 16 150/84 99 02/24/22 16:48 95 02/24/22 16:38 92 97 02/24/22 13:55 97.5 F L 67 16 142/84 98 02/24/22 13:11 102 H 02/24/22 12:59 88 02/24/22 10:00 96 02/24/22 09:34 96 02/24/22 09:27 97 02/24/22 09:24 95 Intake and Output 02/24/22 02/25/22 02/25/22 22:59 06:59 14:59 Intake Total 800 Balance 800 Intake: Intake, IV Titration 800 Amount Sodium Chloride 0.9% 1, 800 000 ml @ 100 mls/hr IV . Q10H [facility] Rx#:[id number] Other: Voiding Method Toilet # Voids 3 - Constitutional General appearance: average body habitus, cooperative, no acute distress - EENT Eyes: anicteric sclerae, EOMI ENT: hearing grossly normal, normal oropharynx - Neck Neck: no lymphadenopathy - Respiratory Respiratory: bilateral: CTA - Cardiovascular Rhythm: regular Heart sounds: normal: S1, S2 Abnormal Heart Sounds: no systolic murmur, no diastolic murmur, no rub, no S3 Gallop, no S4 Gallop, no click, no other - Gastrointestinal General gastrointestinal: no absent bowel sounds, no decreased bowel sounds, no distended, no hepatomegaly, no hyperactive bowel sounds, normal bowel sounds, no organomegaly, no rigid, no scaphoid, soft, no splenomegaly, no tenderness, no umbilical hernia, no ventral hernia - Neurologic Neurologic: CNII-XII intact - Musculoskeletal Musculoskeletal: generalized weakness - Psychiatric Psychiatric: A&O x's 3, appropriate affect, intact judgment & insight Results CBC & Chem 7: 02/25/22 10:44 02/23/22 11:37 Labs: Microbiology - Last 24 Hours (Table) 02/19/22 16:00 Blood Culture - Preliminary Blood No Growth after 120 hours 02/19/22 16:00 Blood Culture - Preliminary Blood No Growth after 120 hours Chest x-ray: report reviewed Assessment and Plan (1) Leukocytosis Status: Chronic Priority: Low Code(s): D72.829 - ELEVATED WHITE BLOOD CELL COUNT, UNSPECIFIED SNOMED Code(s): 779595511 Plan: Hx of the same. Previous work up Negative for malignant process. Patient has remained on observation. Leukomoid reaction 2/2 infection, predominantly neutrophilic. Thrombocytosis also likely reactive as well. No further work up at this time. She has a scheduled f/u, labs can be reviewed and compared to assess return to baseline attests: I have seen and examined pt, performed H&P, developed impression and plan of care. Discussed with dictator. Agree with documentation, dictated as a scribe.
== END 2022-02-25 12:34 | disposition home or self-care (01) | DRG 190 ==
LOC: EC 11:54 → 4SSUR 16:06
PROVIDERS: ADMIT Family Medicine; ATTEND Family Medicine
DX: J44.0 Chronic obstructive pulmonary disease with (acute) lower respiratory infection (principal); J18.0 Bronchopneumonia, unspecified organism; J44.1 Chronic obstructive pulmonary disease with (acute) exacerbation; I10 Essential (primary) hypertension; K21.9 Gastro-esophageal reflux disease without esophagitis; G47.30 Sleep apnea, unspecified; F17.210 Nicotine dependence, cigarettes, uncomplicated; D75.839 Thrombocytosis, unspecified; R00.0 Tachycardia, unspecified; B37.2 Candidiasis of skin and nail; R09.02 Hypoxemia; J84.178 Other interstitial pulmonary diseases with fibrosis in diseases classified elsewhere; E03.9 Hypothyroidism, unspecified; Z98.84 Bariatric surgery status; Z90.81 Acquired absence of spleen; Z20.822 Contact with and (suspected) exposure to COVID-19; Z79.82 Long term (current) use of aspirin; Z79.890 Hormone replacement therapy; Z79.899 Other long term (current) drug therapy; Z82.5 Family history of asthma and other chronic lower respiratory diseases; Z92.3 Personal history of irradiation; Z79.51 Long term (current) use of inhaled steroids; R51.9 Headache, unspecified; Z88.1 Allergy status to other antibiotic agents
CPT/HCPCS: 36415; 71045; 71046; 80053; 83605; 84145; 85025; 86140; 87040; 87070; 87205; 87449; 87635; 94640; 94760; 96372; 96374; 96375; 99285

== ENCOUNTER → 2022-03-05 | Outpatient (CLI) | payer BC, MEDICARE ==
[2022-03-05 18:30] LABS: African American GFR (CKD) 122.1 (60.0-200.0); Anion Gap 10.7 mmol/L (10.00-18.00); BUN/Creat Ratio 16.17 Ratio (12.00-20.00); Blood Urea Nitrogen 10.4 mg/dL (9.0-27.0); Calcium 9.4 mg/dL (8.7-10.3); Carbon Dioxide 26.9 mmol/L (20.0-27.5); Non-African American GFR(CKD) 105.4 (60.0-200.0); Potassium 4.2 mmol/L (3.5-5.5)
[2022-03-05 18:47] LABS: Basophils # (A) 0.27 X 10*3/uL (0.00-0.10); Eosinophils # (A) 0.55 X 10*3/uL (0.04-0.35); Eosinophils % (A) 1.9 %; HCT 41.2 % (37.2-46.3); HGB 13.4 g/dL (12.0-15.0); Immature Grans, Automated 3.3 %; Lymphocytes # (A) 2.54 X 10*3/uL (0.90-5.00); Lymphocytes % (A) 8.9 %; MCH 33.6 pg (27.0-32.0); MCHC 32.5 g/dL (32.0-37.0); MCV 103.3 fL (80.0-97.0); Mean Platelet Volume 9.6 fL (9.5-12.2); Monocytes % (A) 11.6 %; NRBC Per 100 WBC 0 /100 WBCS (0.0-0.0); Neutrophils # (A) 20.81 X 10*3/uL (1.80-7.70); Neutrophils % (A) 73.3 %; Platelet Count 542 X 10*3/uL (140-440); RBC 3.99 X 10*6/uL (4.10-5.20); RBC Morphology NORMAL; RDW 12.9 % (11.5-14.5); WBC 28.42 X 10*3/uL (4.50-10.00)
== END | disposition home or self-care (01) ==
LOC: LABPAT 12:13
PROVIDERS: ATTEND Obstetrics & Gynecology
DX: Z01.812 Encounter for preprocedural laboratory examination (principal)
CPT/HCPCS: 80048; 85025

== ENCOUNTER 2022-03-15 05:41 | Day surgery (SDC) | payer BC, MEDICARE ==
[2022-03-08 12:23] VITALS: BMI 24.1
--- NOTE | 2022-03-15 06:21 | P.HPOB ---
History of Present Illness H&P Date: 03/15/22 Chief Complaint: pelvic pain 46 year old presents for Total laparoscopic hysterectomy with bilateral salpingo-oopherectomy using da lauren and diagnostic cystoscopy. She had an ablation in the past and was doing well until December when she started with pain and spotting. She was diagnosed with hematometria and post ablative syndrome. Review of Systems All systems: negative Constitutional: Denies chills, Denies fever Eyes: denies blurred vision, denies pain Ears, nose, mouth and throat: Denies headache, Denies sore throat Cardiovascular: Denies chest pain, Denies shortness of breath Respiratory: Denies cough Gastrointestinal: Denies abdominal pain, Denies diarrhea, Denies nausea, Denies vomiting Genitourinary: Denies dysuria, Denies hematuria Musculoskeletal: Denies myalgias Integumentary: Denies pruritus, Denies rash Neurological: Denies numbness, Denies weakness Psychiatric: Denies anxiety, Denies depression Endocrine: Denies fatigue, Denies weight change Past Medical History Past Medical History: Asthma, COPD, GERD/Reflux, Hypertension, Musculoskeletal Disorder, Neurologic Disorder, Sleep Apnea/CPAP/BIPAP, Thyroid Disorder Additional Past Medical History / Comment(s): smoking-related interstitial lung disease, doesn't use CPAP, history of seizure at the age of 16 related to med. to stop breast milk, endometriosis, chronic back pain, plantar fasciitis, hx. of Achilles tendinitis, probably antibiotic induced. She also has history of hypothyroidism, ALLERGIC rhinitis, migraines, current steroids for wheezing & cough, uses oxygen prn, recent iron infusion History of Any Multi-Drug Resistant Organisms: None Reported Past Surgical History: Bariatric Surgery, Tubal Ligation, Uterine Ablation Additional Past Surgical History / Comment(s): LEEP PROCEDURE X 2, EGD, BACK INJECTIONS FOR PAIN. The patient has also undergone thoracic/thoracoscopic wedge biopsy of the right lung. 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; R and Y bypass at [facility] 2019,TRACHEOTOMY-RESOLVED, Past Anesthesia/Blood Transfusion Reactions: Motion Sickness Additional Past Anesthesia/Blood Transfusion Reaction / Comment(s): no problem w/blood transfusion Smoking Status: Former smoker - Past Family History Sister(s) Family Medical History: Cancer Mother Family Medical History: Cancer Additional Family Medical History / Comment(s): breast cancer Father Family Medical History: COPD, CVA/TIA, Myocardial Infarction ([place]) Additional Family Medical History / Comment(s): HEART PROBLEMS, AT AGE 64 Medications and Allergies Home Medications Medication Instructions Recorded Confirmed Type Levothyroxine Sodium [Synthroid] 50 mcg PO DAILY 01/05/14 03/08/22 History ALPRAZolam [Xanax] 0.5 mg PO TID PRN 11/24/17 03/08/22 History Albuterol Nebulized [Ventolin 2.5 mg INHALATION RT-QID PRN 05/28/18 03/08/22 History Nebulized] Multivitamins, Thera [Multivitamin 1 tab PO DAILY 05/28/18 03/08/22 History (formulary)] Pantoprazole Sodium [Protonix] 40 mg PO DAILY 05/28/18 03/08/22 History Vitamin A [Vitamin A (8,000 Units 8,000 unit PO DAILY 12/19/19 03/08/22 History = 2,400 MCG)] Zinc Sulfate 220 mg PO DAILY 12/19/19 03/08/22 History Cyclobenzaprine [Flexeril] 10 mg PO HS 10/29/20 03/08/22 History Metoprolol Succinate (ER) [Toprol 12.5 mg PO DAILY 10/29/20 03/08/22 History XL] Meclizine [Antivert] 12.5 mg PO BID PRN 01/23/21 03/08/22 History buPROPion HCL [Wellbutrin XL] 150 mg PO BID 01/23/21 03/08/22 History Albuterol Inhaler [Ventolin Hfa 2 puff INHALATION RT-QID PRN 08/21/21 03/08/22 History Inhaler] Atogepant [Qulipta] 60 mg PO DAILY 08/21/21 03/08/22 History Ubrogepant [Ubrelvy] 100 mg PO DAILY PRN 08/21/21 03/08/22 History Pravastatin Sodium [Pravachol] 20 mg PO DAILY 01/03/22 03/08/22 History Aspirin 81 mg PO DAILY 02/12/22 03/08/22 History Gabapentin [Neurontin] 400 mg PO TID 02/12/22 03/08/22 History Ofatumumab [Kesimpta Pen] 20 mg SQ Q30D 02/12/22 03/08/22 History Famotidine 40 mg PO HS 02/19/22 03/08/22 History Fluticasone/Umeclidin/Vilanter 1 puff INHALATION RT-DAILY 02/19/22 03/08/22 History [Trelegy Ellipta 100-62.5-25] HYDROcodone/APAP 10-325MG [[place] 1 tab PO TID PRN 02/19/22 03/08/22 History 10-325] Budesonide-Formot 160-4.5 Mcg 2 puff INHALATION RT-BID #1 each 02/25/22 03/08/22 Rx [Symbicort 160-4.5 Mcg Inhaler] Allergies Allergy/AdvReac Type Severity Reaction Status Date / Time bee venom protein (honey bee) Allergy SWELLING , Verified 03/15/22 06:12 AND ITCHING nitrofurantoin Allergy Rash/Hives Verified 03/15/22 06:12 [From Macrobid] nitrofurantoin Allergy Rash/Hives Verified 03/15/22 06:12 macrocrystalline [From Macrobid] moxifloxacin [From Avelox] AdvReac Nausea & Verified 03/15/22 06:12 Vomiting seasonal allergies Allergy Unknown Uncoded 03/15/22 06:12 Exam Osteopathic Statement: *. No significant issues noted on an osteopathic structural exam other than those noted in the History and Physical/Consult. HEart: RRR Lung: CTAB Abdomen: soft, nontender Extremeties: neg esequiel's Assessment and Plan (1) Post endometrial ablation syndrome Current Visit: Yes Status: Acute Code(s): N99.85 - POST ENDOMETRIAL ABLATION SYNDROME SNOMED Code(s): 201196200 (2) Hematometra Current Visit: No Status: Acute Code(s): N85.7 - HEMATOMETRA SNOMED Code(s): 23414089 (3) Pelvic pain Current Visit: No Status: Acute Code(s): R10.2 - PELVIC AND PERINEAL PAIN SNOMED Code(s): 75853359 Plan: 1. [facility] BSO using da lauren. diagnostic cystoscopy, possible laparotomy
[2022-03-15 06:25] VITALS: BP 137/74; PULSE 124; RESP 20; TEMP 101.9
== END 2022-03-15 07:14 | disposition home or self-care (01) ==
LOC: OR 05:41
PROVIDERS: ATTEND Obstetrics & Gynecology
DX: N99.85 Post endometrial ablation syndrome (principal); N85.7 Hematometra; J44.9 Chronic obstructive pulmonary disease, unspecified; Z87.891 Personal history of nicotine dependence; Z98.84 Bariatric surgery status; Z98.51 Tubal ligation status; Z98.890 Other specified postprocedural states; Z90.3 Acquired absence of stomach [part of]; Z90.81 Acquired absence of spleen; Z80.3 Family history of malignant neoplasm of breast; Z82.49 Family history of ischemic heart disease and other diseases of the circulatory system; Z83.6 Family history of other diseases of the respiratory system; K21.9 Gastro-esophageal reflux disease without esophagitis; I10 Essential (primary) hypertension; G47.33 Obstructive sleep apnea (adult) (pediatric); E03.9 Hypothyroidism, unspecified; Z79.890 Hormone replacement therapy; Z86.73 Personal history of transient ischemic attack (TIA), and cerebral infarction without residual deficits; G43.909 Migraine, unspecified, not intractable, without status migrainosus; Z79.51 Long term (current) use of inhaled steroids; R29.818 Other symptoms and signs involving the nervous system; M79.9 Soft tissue disorder, unspecified; Z79.899 Other long term (current) drug therapy; Z91.030 Bee allergy status; Z88.1 Allergy status to other antibiotic agents
CPT/HCPCS: 86850; 86900; 86901

== ENCOUNTER → 2022-05-14 | Outpatient (CLI) | payer SELFPAY ==
[2022-05-14 18:48] LABS: Basophils # (A) 0.14 X 10*3/uL (0.00-0.10); Basophils % (A) 0.8 %; Eosinophils # (A) 0.63 X 10*3/uL (0.04-0.35); Eosinophils % (A) 3.7 %; HCT 46.9 % (37.2-46.3); HGB 14.9 g/dL (12.0-15.0); Immature Grans, Automated 0.9 %; Lymphocytes # (A) 4.45 X 10*3/uL (0.90-5.00); Lymphocytes % (A) 26.3 %; MCH 31.6 pg (27.0-32.0); MCHC 31.8 g/dL (32.0-37.0); MCV 99.4 fL (80.0-97.0); Mean Platelet Volume 9.7 fL (9.5-12.2); Monocytes # (A) 1.68 X 10*3/uL (0.20-1.00); Monocytes % (A) 9.9 %; NRBC Per 100 WBC 0 /100 WBCS (0.0-0.0); Neutrophils # (A) 9.86 X 10*3/uL (1.80-7.70); Neutrophils % (A) 58.4 %; Platelet Count 510 X 10*3/uL (140-440); RBC 4.72 X 10*6/uL (4.10-5.20); RDW 13.1 % (11.5-14.5); WBC 16.92 X 10*3/uL (4.50-10.00)
[2022-05-14 18:58] LABS: African American GFR (CKD) 100.3 (60.0-200.0); Anion Gap 11.4 mmol/L (10.00-18.00); BUN/Creat Ratio 18.13 Ratio (12.00-20.00); Blood Urea Nitrogen 14.5 mg/dL (9.0-27.0); Calcium 9.5 mg/dL (8.7-10.3); Carbon Dioxide 28.6 mmol/L (20.0-27.5); Non-African American GFR(CKD) 86.6 (60.0-200.0); Potassium 4.3 mmol/L (3.5-5.5)
== END | disposition home or self-care (01) ==
LOC: LABPAT 10:40
PROVIDERS: ATTEND Obstetrics & Gynecology
DX: Z01.812 Encounter for preprocedural laboratory examination (principal)
CPT/HCPCS: 80048; 85025

== ENCOUNTER 2022-07-05 00:19 | Emergency (ER) | payer BC, MEDICARE ==
[2022-07-05 00:26] VITALS: BP 129/63; TEMP 98.1
[2022-07-05] MEDS ORDERED: SODIUM CHLORIDE 0.9% 1,000 ML IV ONE (00:45)
[2022-07-05] MEDS ORDERED: DEXAMETHASONE SOD PHOSPHATE 10 MG/ML 1 ML VIAL IVP STA (00:45)
[2022-07-05] MEDS ORDERED: diphenhydrAMINE 50 MG/ML 1 ML VIAL IVP STA (00:45)
[2022-07-05] MEDS ORDERED: PROCHLORPERAZINE INJ 10 MG/2 ML VIAL IVP STA (00:45)
--- NOTE | 2022-07-05 01:05 | ED ---
General Adult HPI - General Chief complaint: Upper Respiratory Infection Stated complaint: SOB Time Seen by Provider: 07/05/22 00:28 Source: patient Mode of arrival: wheelchair Limitations: no limitations - History of Present Illness Initial comments: This is a 47-year-old female with a past medical history including COPD, asthma, hypertension and MS presents emergency department for cough, congestion as well as a headache. The patient stated that she has been "sick" the last 6 days including pressure in her face now causing a migraine headache. The patient does state that she has a history of migraine headaches and it feels slightly different as she has pressure in the front of her face as well as in the bilateral temples. The patient denied any lightheadedness or dizziness however. The patient stated that she had productive cough and congestion however stated that her shortness of breath was improved currently. The patient was resting in bed comfortably speaking in full sentences without any tachypnea or increased work of breathing. The patient denied any nausea, vomiting as well as any diaphoresis. The patient also denied any recent sick contacts. - Related Data Home Medications Medication Instructions Recorded Confirmed Levothyroxine Sodium [Synthroid] 50 mcg PO DAILY 01/05/14 05/17/22 ALPRAZolam [Xanax] 0.5 mg PO TID PRN 11/24/17 05/17/22 Albuterol Nebulized [Ventolin 2.5 mg INHALATION RT-QID PRN 05/28/18 05/17/22 Nebulized] Multivitamins, Thera [Multivitamin 1 tab PO DAILY 05/28/18 05/17/22 (formulary)] Pantoprazole Sodium [Protonix] 40 mg PO DAILY 05/28/18 05/17/22 Vitamin A [Vitamin A (8,000 Units 8,000 unit PO DAILY 12/19/19 05/17/22 = 2,400 MCG)] Zinc Sulfate 220 mg PO DAILY 12/19/19 05/17/22 Cyclobenzaprine [Flexeril] 10 mg PO HS 10/29/20 05/17/22 Metoprolol Succinate (ER) [Toprol 12.5 mg PO DAILY 10/29/20 05/17/22 XL] Meclizine [Antivert] 12.5 mg PO BID PRN 01/23/21 05/17/22 buPROPion HCL [Wellbutrin XL] 150 mg PO BID 01/23/21 05/17/22 Albuterol Inhaler [Ventolin Hfa 2 puff INHALATION RT-QID PRN 08/21/21 05/17/22 Inhaler] Atogepant [Qulipta] 60 mg PO DAILY 08/21/21 05/17/22 Ubrogepant [Ubrelvy] 100 mg PO DAILY PRN 08/21/21 05/17/22 Pravastatin Sodium [Pravachol] 20 mg PO DAILY 01/03/22 05/17/22 Aspirin 81 mg PO DAILY 02/12/22 05/17/22 Gabapentin [Neurontin] 400 mg PO TID 02/12/22 05/17/22 Ofatumumab [Kesimpta Pen] 20 mg SQ Q30D 02/12/22 05/17/22 Famotidine 40 mg PO HS 02/19/22 05/17/22 Fluticasone/Umeclidin/Vilanter 1 puff INHALATION RT-DAILY 02/19/22 05/17/22 [Trelegy Ellipta 100-62.5-25] HYDROcodone/APAP 10-325MG [Irwin 1 tab PO TID PRN 02/19/22 05/17/22 10-325] Previous Rx's Medication Instructions Recorded Budesonide-Formot 160-4.5 Mcg 2 puff INHALATION RT-BID #1 each 02/25/22 [Symbicort 160-4.5 Mcg Inhaler] Azithromycin [Zithromax Z Pack] 1 tab PO DIRECTED #6 tab 07/05/22 Allergies Allergy/AdvReac Type Severity Reaction Status Date / Time bee venom protein (honey bee) Allergy SWELLING , Verified 07/05/22 00:20 AND ITCHING nitrofurantoin Allergy Rash/Hives Verified 07/05/22 00:20 [From Macrobid] nitrofurantoin Allergy Rash/Hives Verified 07/05/22 00:20 macrocrystalline [From Macrobid] moxifloxacin [From Avelox] AdvReac Nausea & Verified 07/05/22 00:20 Vomiting NSAIDS (Non-Steroidal AdvReac Unknown Verified 07/05/22 00:20 Anti-Inflamma seasonal allergies Allergy Unknown Uncoded 07/05/22 00:20 Review of Systems ROS Statement: Those systems with pertinent positive or pertinent negative responses have been documented in the HPI. ROS Other: All systems not noted in ROS Statement are negative. Past Medical History Past Medical History: Asthma, COPD, GERD/Reflux, Hypertension, Musculoskeletal Disorder, Neurologic Disorder, Sleep Apnea/CPAP/BIPAP, Thyroid Disorder Additional Past Medical History / Comment(s): smoking-related interstitial lung disease, doesn't use CPAP, history of seizure at the age of 16 related to med. to stop breast milk, endometriosis, chronic back pain, plantar fasciitis, hx. of Achilles tendinitis, probably antibiotic induced. She also has history of hypothyroidism, ALLERGIC rhinitis, migraines, current steroids for wheezing & cough, uses oxygen prn, recent iron infusion, MS History of Any Multi-Drug Resistant Organisms: None Reported Past Surgical History: Bariatric Surgery, Hysterectomy, Tubal Ligation, Uterine Ablation Additional Past Surgical History / Comment(s): LEEP PROCEDURE X 2, EGD, BACK INJECTIONS FOR PAIN. The patient has also undergone thoracic/thoracoscopic wedge biopsy of the right lung. 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; R and Y bypass at [facility] 2019,TRACHEOTOMY-RESOLVED Past Anesthesia/Blood Transfusion Reactions: Motion Sickness Additional Past Anesthesia/Blood Transfusion Reaction / Comment(s): no problem w/blood transfusion Past Psychological History: Anxiety Smoking Status: Current every day smoker Past Alcohol Use History: Rare Past Drug Use History: None Reported - Past Family History Sister(s) Family Medical History: Cancer Mother Family Medical History: Cancer Additional Family Medical History / Comment(s): breast cancer Father Family Medical History: COPD, CVA/TIA, Myocardial Infarction (PA) Additional Family Medical History / Comment(s): HEART PROBLEMS, AT AGE 64 General Exam Limitations: no limitations General appearance: alert, in no apparent distress Head exam: Present: atraumatic, normocephalic, normal inspection, other (Minor tenderness noted to the bilateral maxillary sinuses) Eye exam: Present: normal appearance, PERRL Pupils: Present: normal accommodation ENT exam: Present: normal exam, normal oropharynx, mucous membranes moist Neck exam: Present: normal inspection, full ROM Respiratory exam: Present: normal lung sounds bilaterally. Absent: respiratory distress, wheezes, rhonchi Cardiovascular Exam: Present: regular rate, normal rhythm, normal heart sounds GI/Abdominal exam: Present: soft, normal bowel sounds Extremities exam: Present: normal inspection, full ROM Back exam: Present: normal inspection, full ROM Neurological exam: Present: alert, oriented X3, CN II-XII intact Psychiatric exam: Present: normal affect, normal mood Skin exam: Present: warm, dry Course Vital Signs 07/05/22 07/05/22 00:20 02:40 Temperature 98.1 F Pulse Rate 94 86 Respiratory 16 18 Rate Blood Pressure 129/63 O2 Sat by Pulse 99 99 Oximetry Medical Decision Making - Medical Decision Making Was pt. sent in by a medical professional or institution (, [facility]ECKY, STOCK COUNTER, urgent care, hospital, or [facility]...) When possible be specific @ -No Did you speak to anyone other than the patient for history (EMS, parent, family, police, friend...)? What history was obtained from this source @ -No Did you review nursing and triage notes (agree or disagree)? Why? @ -I reviewed and agree with nursing and triage notes Were old charts reviewed (outside hosp., previous admission, EMS record, old EKG, old radiological studies, urgent care reports/EKG's, [facility] records)? Report findings @ -No old charts were reviewed Differential Diagnosis (chest pain, altered mental status, abdominal pain women, abdominal pain men, vaginal bleeding, weakness, fever, dyspnea, syncope, headache, dizziness, GI bleed, back pain, seizure, CVA, palpatations, mental health)? @ -Sinusitis, migraine headache, URI EKG interpreted by me (3pts min.). @ -None X-rays interpreted by me (1pt min.). @ -None done CT interpreted by me (1pt min.). @ -None done U/S interpreted by me (1pt. min.). @ -None done What testing was considered but not performed or refused? (CT, X-rays, U/S, labs)? Why? @ -None What meds were considered but not given or refused? Why? @ -None Did you discuss the management of the patient with other professionals (professionals i.e. BECKY Jiménez, STOCK COUNTER, lab, RT, psych nurse, dialysis social worker, denture model maker, teacher, ict help desk officer, leather case finisher)? Give summary @ -No Was smoking cessation discussed for >3mins.? @ -Yes Was critical care preformed (if so, how long)? @ -No Were there social determinants of health that impacted care today? How? (Homelessness, low income, unemployed, alcoholism, drug addiction, transportation, low edu. Level, literacy, decrease access to med. care, [facility], rehab)? @ -No Was there de-escalation of care discussed even if they declined (Discuss DNR or withdrawal of care, Hospice)? DNR status @ -No What co-morbidities impacted this encounter? (DM, HTN, Smoking, COPD, CAD, Cancer, CVA, ARF, Chemo, Hep., AIDS, mental health diagnosis, sleep apnea, morbid obesity)? @ -Asthma, COPD, hypertension, MS Was patient admitted / discharged? Hospital course, mention meds given and route, prescriptions, significant lab abnormalities, going to OR and other pertinent info. @ -The patient was seen and evaluated emergency department. Physical exam, the patient was resting in bed without any acute distress. Vital signs admission were stable. The patient did state that she had a migraine headache and likely had sinus pressure as well. No imaging was obtained this time as the patient did state it felt as if it was her normal migraine headache associated with some minor facial pain. The patient did not have any imaging performed as we agreed that there was no imaging needed at this time. The patient did receive a headache cocktail without the Toradol as she is ALLERGIC. On reevaluation, the patient stated that her headache was greatly improved and she was ready to go home. The patient was advised to continue to monitor symptoms and to report back to the emergency department if he became acutely worse. The patient was given a prescription for azithromycin and told to take his medication as pre scribed for her likely sinusitis. The patient was agreeable to this and all her questions were answered. The patient was discharged home in stable condition. Undiagnosed new problem with uncertain prognosis? @ -No Drug Therapy requiring intensive monitoring for toxicity (Heparin, Nitro, Insulin, Cardizem)? @ -No Were any procedures done? @ -No Diagnosis/symptom? @ -Headache, NOS Acute, or Chronic, or Acute on Chronic? @ -Acute Uncomplicated (without systemic symptoms) or Complicated (systemic symptoms)? @ -Uncomplicated Side effects of treatment? @ -No Exacerbation, Progression, or Severe Exacerbation? @ -No Poses a threat to life or bodily function? How? (Chest pain, [place], PA, pneumonia, PE, COPD, DKA, ARF, appy, cholecystitis, CVA, Diverticulitis, Homicidal, Suicidal, threat to staff... and all critical care pts) @ -No Diagnosis/symptom? @ -Acute sinusitis Acute, or Chronic, or Acute on Chronic? @ -Acute Uncomplicated (without systemic symptoms) or Complicated (systemic symptoms)? @ -Uncomplicated Side effects of treatment? @ -none Exacerbation, Progression, or Severe Exacerbation] @ -no Poses a threat to life or bodily function? @ -no Disposition Clinical Impression: Headache, Sinusitis Disposition: HOME SELF-CARE Condition: Stable Instructions (If sedation given, give patient instructions): Sinusitis (ED), Acute Headache (DC) Prescriptions: Azithromycin [Zithromax Z Pack] 1 tab PO DIRECTED #6 tab Is patient prescribed a controlled substance at d/c from ED?: No Referrals: None,Stated [REFERRING] - 1-2 days Time of Disposition: 02:10
[2022-07-05 02:41] VITALS: PULSE 86; RESP 18
== END 2022-07-05 02:41 | disposition home or self-care (01) ==
LOC: EC 00:19
DX: R51.9 Headache, unspecified (principal); J32.9 Chronic sinusitis, unspecified; J44.9 Chronic obstructive pulmonary disease, unspecified; K21.9 Gastro-esophageal reflux disease without esophagitis; I10 Essential (primary) hypertension; E07.9 Disorder of thyroid, unspecified; F41.9 Anxiety disorder, unspecified; F17.200 Nicotine dependence, unspecified, uncomplicated; Z91.030 Bee allergy status; Z91.048 Other nonmedicinal substance allergy status; Z88.8 Allergy status to other drugs, medicaments and biological substances; Z88.6 Allergy status to analgesic agent; Z88.1 Allergy status to other antibiotic agents; Z79.82 Long term (current) use of aspirin; Z79.51 Long term (current) use of inhaled steroids; Z79.899 Other long term (current) drug therapy
CPT/HCPCS: 99284; 96374; 96375 ×2; 96361; J1200; J0780; J1100

== ENCOUNTER → 2022-07-07 | Outpatient (CLI) | payer BC, MEDICARE ==
[2022-07-07 14:06] VITALS: BP 101/65; PULSE 111; TEMP 98.3; BMI 25.3
--- NOTE | 2022-07-07 14:46 | P.BASOAP ---
Subjective Progress Note Date: 07/07/22 She comes in after hysterectomy. She comes in gallbladder. Recommend [facility] physician due to complex surgery. Likely open surgery advised. She has smoking. Objective - Vital Signs Vital signs: Vital Signs Temp 98.3 F 07/07/22 13:58 Pulse 111 H 07/07/22 13:58 Resp BP 101/65 07/07/22 13:58 Pulse Ox FiO2 Intake & Output 07/06/22 07/07/22 07/07/22 18:59 06:59 18:59 Weight 60.781 kg Assessment/Plan Plan: Date: 07/07/22 Initial Weight: 109.769 kg Initial BMI: 45.7 Current Weight: 60.781 kg Current BMI: 25.3 Type of Surgery: Total Volume in Band: Previous Volume: Volume Removed: Volume Added: Band Size:
== END ==
LOC: BARWHC3 13:01
PROVIDERS: ATTEND Surgery Plastic and Reconstructive Surgery
DX: E66.01 Morbid (severe) obesity due to excess calories (principal); Z68.25 Body mass index [BMI] 25.0-25.9, adult; Z91.030 Bee allergy status; Z88.1 Allergy status to other antibiotic agents; Z88.6 Allergy status to analgesic agent; Z88.8 Allergy status to other drugs, medicaments and biological substances; Z87.891 Personal history of nicotine dependence
CPT/HCPCS: 99211

== ENCOUNTER 2022-07-09 20:03 | Emergency (ER) | payer BC, MEDICARE ==
[2022-07-09 20:14] VITALS: BP 136/81; PULSE 107; RESP 20; TEMP 98.3
[2022-07-09] MEDS ORDERED: SODIUM CHLORIDE 0.9% 1,000 ML IV STA (20:29)
[2022-07-09] MEDS ORDERED: diphenhydrAMINE 50 MG/ML 1 ML VIAL IVP STA (20:29)
[2022-07-09] MEDS ORDERED: METOCLOPRAMIDE 5 MG/ML 2 ML VIAL IVP STA (20:29)
[2022-07-09] MEDS ORDERED: ACETAMINOPHEN TAB 500 MG TAB PO STA (20:29)
[2022-07-09] MEDS ORDERED: DEXAMETHASONE SOD PHOSPHATE 10 MG/ML 1 ML VIAL IVP STA (20:29)
--- NOTE | 2022-07-09 21:26 | CT ---
EXAMINATION TYPE: CT brain wo con DATE OF EXAM: 07/09/2022 COMPARISON: 04/20/2018 HISTORY: Migranes, constant Headache x [address] DLP: 1096.4 mGycm Automated exposure control for dose reduction was used. Images obtained of the brain without contrast. Ventricles have normal size. There is no mass effect or midline shift. No sign of intracranial hemorr walter. The calvarium is intact. There is normal aeration of the mastoid sinuses. IMPRESSION: Negative unenhanced head CT scan. No change.
[2022-07-09 21:27] LABS: ALT 26 U/L (4-34); AST 49 U/L (14-36); African American GFR (CKD) >90 (>60 ml/min/1.73 sqM); Albumin 4.5 g/dL (3.5-5.0); Alkaline Phosphatase 116 U/L (38-126); Anion Gap 9 mmol/L; Blood Urea Nitrogen 12 mg/dL (7-17); Calcium 9.1 mg/dL (8.4-10.2); Carbon Dioxide 25 mmol/L (22-30); Chloride 104 mmol/L (98-107); Glucose 117 mg/dL (74-99); Non-African American GFR(CKD) >90 (>60 ml/min/1.73 sqM); Sodium 138 mmol/L (137-145); Total Bilirubin 0.8 mg/dL (0.2-1.3); Total Protein 8.1 g/dL (6.3-8.2)
[2022-07-09 21:35] LABS: Potassium 6.3 mmol/L (3.5-5.1)
--- NOTE | 2022-07-09 21:57 | XR ---
EXAMINATION TYPE: XR chest 2V DATE OF EXAM: 07/09/2022 COMPARISON: 03/05/2022 HISTORY: Headache TECHNIQUE: 2 view FINDINGS: There is coarse interstitial mild density in the lungs. Heart size is normal. No heart fail ure. No pleural effusion. IMPRESSION: Mild pulmonary fibrosis. Normal heart. No significant change.
[2022-07-09 22:02] LABS: Basophils % (A) 0 %; Eosinophils # (A) 0.1 k/uL (0-0.7); Eosinophils % (A) 1 %; HCT 42.8 % (34.0-46.0); HGB 14.1 gm/dL (11.4-16.0); Lymphocytes # (A) 1.3 k/uL (1.0-4.8); Lymphocytes % (A) 10 %; MCH 31.4 pg (25.0-35.0); MCHC 32.8 g/dL (31.0-37.0); MCV 95.5 fL (80.0-100.0); Mean Platelet Volume 7.2; Monocytes # (A) 0.3 k/uL (0-1.0); Monocytes % (A) 2 %; Neutrophils # (A) 11.7 k/uL (1.3-7.7); Neutrophils % (A) 87 %; Platelet Count 545 k/uL (150-450); RBC 4.49 m/uL (3.80-5.40); RDW 12.9 % (11.5-15.5); WBC 13.5 k/uL (3.8-10.6)
[2022-07-09 22:18] LABS: ALT 22 U/L (4-34); AST 31 U/L (14-36); African American GFR (CKD) >90 (>60 ml/min/1.73 sqM); Albumin 3.6 g/dL (3.5-5.0); Alkaline Phosphatase 115 U/L (38-126); Anion Gap 7 mmol/L; Blood Urea Nitrogen 11 mg/dL (7-17); Calcium 8.5 mg/dL (8.4-10.2); Carbon Dioxide 24 mmol/L (22-30); Chloride 108 mmol/L (98-107); Glucose 135 mg/dL (74-99); Non-African American GFR(CKD) >90 (>60 ml/min/1.73 sqM); Potassium 4.7 mmol/L (3.5-5.1); Sodium 139 mmol/L (137-145); Total Bilirubin 0.4 mg/dL (0.2-1.3); Total Protein 6.4 g/dL (6.3-8.2)
[2022-07-09] MEDS ORDERED: HYDROmorphone 0.5 MG/0.5 ML SYRINGE IVP STA (22:23)
--- NOTE | 2022-07-09 23:26 | ED ---
Headache HPI - General Chief Complaint: Headache Stated Complaint: Migraine Time Seen by Provider: 07/09/22 20:18 Mode of arrival: ambulatory Limitations: no limitations - History of Present Illness Initial Comments: Patient is a 47-year-old female who presents to the emergency department for evaluation of migraine. Patient has history of migraine states the pharmacy has been out of [facility]. Patient was evaluated in our emergency department on 07/05 migraine. She was discharged with azithromycin for acute sinusitis which she states she just finished today. Patient reports improvement of her congestion however still has a migraine. Pain is in her forehead. States it returned shortly after her discharge. She denies any recent falls or head trauma. She denies nausea and vomiting. She denies focal deficit and weakness. Patient does have a cough which is intermittently productive of yellow phlegm. No history of asthma or COPD. No chest pain or shortness of breath. MD Complaint: headache - Related Data Home Medications Medication Instructions Recorded Confirmed Levothyroxine Sodium [Synthroid] 50 mcg PO DAILY 01/05/14 07/07/22 ALPRAZolam [Xanax] 0.5 mg PO TID PRN 11/24/17 07/07/22 Albuterol Nebulized [Ventolin 2.5 mg INHALATION RT-QID PRN 05/28/18 07/07/22 Nebulized] Multivitamins, Thera [Multivitamin 1 tab PO DAILY 05/28/18 07/07/22 (formulary)] Pantoprazole Sodium [Protonix] 40 mg PO DAILY 05/28/18 07/07/22 Vitamin A [Vitamin A (8,000 Units 8,000 unit PO DAILY 12/19/19 07/07/22 = 2,400 MCG)] Zinc Sulfate 220 mg PO DAILY 12/19/19 07/07/22 Cyclobenzaprine [Flexeril] 10 mg PO HS 10/29/20 07/07/22 Metoprolol Succinate (ER) [Toprol 12.5 mg PO DAILY 10/29/20 07/07/22 XL] Meclizine [Antivert] 12.5 mg PO BID PRN 01/23/21 07/07/22 buPROPion HCL [Wellbutrin XL] 150 mg PO DAILY 01/23/21 07/07/22 Albuterol Inhaler [Ventolin Hfa 2 puff INHALATION RT-QID PRN 08/21/21 07/07/22 Inhaler] Atogepant [Qulipta] 60 mg PO DAILY 08/21/21 07/07/22 Ubrogepant [Ubrelvy] 100 mg PO DAILY PRN 08/21/21 07/07/22 Pravastatin Sodium [Pravachol] 20 mg PO DAILY 01/03/22 07/07/22 Aspirin 81 mg PO DAILY 02/12/22 07/07/22 Gabapentin [Neurontin] 400 mg PO TID 02/12/22 07/07/22 Ofatumumab [Kesimpta Pen] 20 mg SQ Q30D 02/12/22 07/07/22 Famotidine 40 mg PO HS 02/19/22 07/07/22 Fluticasone/Umeclidin/Vilanter 1 puff INHALATION RT-DAILY 02/19/22 07/07/22 [Trelegy Ellipta 100-62.5-25] HYDROcodone/APAP 10-325MG [[place] 1 tab PO TID PRN 02/19/22 07/07/22 10-325] Previous Rx's Medication Instructions Recorded Budesonide-Formot 160-4.5 Mcg 2 puff INHALATION RT-BID #1 each 02/25/22 [Symbicort 160-4.5 Mcg Inhaler] Azithromycin [Zithromax Z Pack] 1 tab PO DIRECTED #6 tab 07/05/22 Allergies Allergy/AdvReac Type Severity Reaction Status Date / Time bee venom protein (honey bee) Allergy SWELLING , Verified 07/09/22 20:14 AND ITCHING nitrofurantoin Allergy Rash/Hives Verified 07/09/22 20:14 [From Macrobid] nitrofurantoin Allergy Rash/Hives Verified 07/09/22 20:14 macrocrystalline [From Macrobid] moxifloxacin [From Avelox] AdvReac Nausea & Verified 07/09/22 20:14 Vomiting NSAIDS (Non-Steroidal AdvReac Unknown Verified 07/09/22 20:14 Anti-Inflamma seasonal allergies Allergy Unknown Uncoded 07/09/22 20:14 Review of Systems ROS Statement: Those systems with pertinent positive or pertinent negative responses have been documented in the HPI. ROS Other: All systems not noted in ROS Statement are negative. Past Medical History Past Medical History: Asthma, COPD, GERD/Reflux, Hypertension, Musculoskeletal Disorder, Neurologic Disorder, Sleep Apnea/CPAP/BIPAP, Thyroid Disorder Additional Past Medical History / Comment(s): smoking-related interstitial lung disease, doesn't use CPAP, history of seizure at the age of 16 related to med. to stop breast milk, endometriosis, chronic back pain, plantar fasciitis, hx. of Achilles tendinitis, probably antibiotic induced. She also has history of hypothyroidism, ALLERGIC rhinitis, migraines, current steroids for wheezing & cough, uses oxygen prn, recent iron infusion, MS History of Any Multi-Drug Resistant Organisms: None Reported Past Surgical History: Bariatric Surgery, Hysterectomy, Tubal Ligation, Uterine Ablation Additional Past Surgical History / Comment(s): LEEP PROCEDURE X 2, EGD, BACK INJECTIONS FOR PAIN. The patient has also undergone thoracic/thoracoscopic wedge biopsy of the right lung. 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; R and Y bypass at [facility] 2019,TRACHEOTOMY-RESOLVED Past Anesthesia/Blood Transfusion Reactions: Motion Sickness Additional Past Anesthesia/Blood Transfusion Reaction / Comment(s): no problem w/blood transfusion Past Psychological History: Anxiety Smoking Status: Current every day smoker Past Alcohol Use History: Rare Past Drug Use History: None Reported - Past Family History Sister(s) Family Medical History: Cancer Mother Family Medical History: Cancer Additional Family Medical History / Comment(s): breast cancer Father Family Medical History: COPD, CVA/TIA, Myocardial Infarction ([place]) Additional Family Medical History / Comment(s): HEART PROBLEMS, AT AGE 64 General Exam Limitations: no limitations Head exam: Present: atraumatic, normocephalic, normal inspection Eye exam: Present: normal appearance, PERRL, EOMI. Absent: scleral icterus, conjunctival injection, periorbital swelling ENT exam: Present: mucous membranes moist Neck exam: Present: normal inspection, full ROM. Absent: tenderness Respiratory exam: Present: normal lung sounds bilaterally. Absent: respiratory distress, wheezes, rales, rhonchi, stridor Cardiovascular Exam: Present: regular rate, normal rhythm, normal heart sounds. Absent: systolic murmur, diastolic murmur, rubs, gallop, clicks GI/Abdominal exam: Present: soft, normal bowel sounds. Absent: distended, tenderness, guarding, rebound, rigid Extremities exam: Present: normal capillary refill Neurological exam: Present: alert, oriented X3, CN II-XII intact Psychiatric exam: Present: normal affect, normal mood Skin exam: Present: warm, dry, intact, normal color. Absent: rash Course Vital Signs 07/09/22 20:11 Temperature 98.3 F Pulse Rate 107 H Respiratory 20 Rate Blood Pressure 136/81 O2 Sat by Pulse 99 Oximetry Medical Decision Making - Medical Decision Making Was pt. sent in by a medical professional or institution (, PA, RADIO SALES ACCOUNT EXECUTIVE, urgent care, hospital, or penitentiary...) When possible be specific @ -[No] Did you speak to anyone other than the patient for history (EMS, parent, family, police, friend...)? What history was obtained from this source @ -[No] Did you review nursing and triage notes (agree or disagree)? Why? @ -[I reviewed and agree with nursing and triage notes] Were old charts reviewed (outside hosp., previous admission, EMS record, old EKG, old radiological studies, urgent care reports/EKG's, penitentiary records)? Report findings @ -[No old charts were reviewed] Differential Diagnosis (chest pain, altered mental status, abdominal pain women, abdominal pain men, vaginal bleeding, weakness, fever, dyspnea, syncope, headache, dizziness, GI bleed, back pain, seizure, CVA, palpatations, mental health)? @ -Differential Headache: Migraine, tension, cluster, carbon monoxide, central venous thrombosis, pension karma temporal arteritis, acute closure glaucoma, intercranial hemorrhage, mastoiditis, sinusitis, head injury, this is not meant to be an all-inclusive list. EKG interpreted by me (3pts min.). @ -[As above] X-rays interpreted by me (1pt min.). @ -Yes, chest x-ray shows pulmonary fibrosis without any significant change. No infiltrate. CT interpreted by me (1pt min.). @ -Yes, CT of the brain and C-spine negative for acute process. U/S interpreted by me (1pt. min.). @ -[None done] What testing was considered but not performed or refused? (CT, X-rays, U/S, labs)? Why? @ -[None] What meds were considered but not given or refused? Why? @ -[None] Did you discuss the management of the patient with other professionals (garland bowen i.e. , PA, RADIO SALES ACCOUNT EXECUTIVE, lab, RT, psych nurse, social work manager, electronic console display operator, teacher, trust officer, case finisher)? Give summary @ -[No] Was smoking cessation discussed for >3mins.? @ -[No] Was critical care preformed (if so, how long)? @ -[No] Were there social determinants of health that impacted care today? How? (Homelessness, low income, unemployed, alcoholism, drug addiction, transpo rtation, low edu. Level, literacy, decrease access to med. care, group home, rehab)? @ -[No] Was there de-escalation of care discussed even if they declined (Discuss DNR or withdrawal of care, Hospice)? DNR status @ -[No] What co-morbidities impacted this encounter? (DM, HTN, Smoking, COPD, CAD, Cancer, CVA, ARF, Chemo, Hep., AIDS, mental health diagnosis, sleep apnea, morbid obesity)? @ -[None] Was patient admitted / discharged? Hospital course, mention meds given and route, prescriptions, significant lab abnormalities, going to OR and other pertinent info. @ -Patient presenting with migraine and cough. No fever, no hypoxia, no vomiting. Patient already finished a course of azithromycin. Laboratory studies obtained. There is mild leukocytosis at 13.5. There is hyperkalemia at 6.3 although blood was hemolyzed. On redraw potassium was 4.7. COVID-19, influe nza, RSV not detected. Chest x-ray negative for acute process. CT of the brain unremarkable. Patient given migraine cocktail with little improvement. She was then given 1 dose of Dilaudid which improved her headache. patient feeling better and is ready to go home she will need to follow up with neurology for her migraine medication. Undiagnosed new problem with uncertain prognosis? @ -[No] Drug Therapy requiring intensive monitoring for toxicity (Heparin, Nitro, Insulin, Cardizem)? @ -[No] Were any procedures done? @ -[No] Diagnosis/symptom? @ Migraine Acute, Chronic, or Acute on Chronic? @ -acute Uncomplicated (without systemic symptoms) or Complicated (systemic symptoms)? @ -uncomplicated Side effects of treatment? @ -[No] Exacerbation, Progression, or Severe Exacerbation? @ -[No] Poses a threat to life or bodily function? How? (Chest pain, [place], [place], pneumonia, PE, COPD, DKA, ARF, appy, cholecystitis, CVA, Diverticulitis, Homicidal, Suicidal, threat to staff... and all critical care pts) @ -[No] Dr. Tomas is my attending - Lab Data Result diagrams: 07/09/22 21:44 07/09/22 22:02 Lab Results 07/09/22 07/09/22 07/09/22 Range/Units 20:53 20:53 21:44 WBC 13.5 H (3.8-10.6) k/uL RBC 4.49 (3.80-5.40) m/uL Hgb 14.1 (11.4-16.0) gm/dL Hct 42.8 (34.0-46.0) % MCV 95.5 (80.0-100.0) fL MCH 31.4 (25.0-35.0) pg MCHC 32.8 (31.0-37.0) g/dL RDW 12.9 (11.5-15.5) % Plt Count 545 H (150-450) k/uL MPV 7.2 Neutrophils % 87 % Lymphocytes % 10 % Monocytes % 2 % Eosinophils % 1 % Basophils % 0 % Neutrophils # 11.7 H (1.3-7.7) k/uL Lymphocytes # 1.3 (1.0-4.8) k/uL Monocytes # 0.3 (0-1.0) k/uL Eosinophils # 0.1 (0-0.7) k/uL Basophils # 0.0 (0-0.2) k/uL Sodium 138 (137-145) mmol/L Potassium 6.3 H* (3.5-5.1) mmol/L Chloride 104 (98-107) mmol/L Carbon Dioxide 25 (22-30) mmol/L Anion Gap 9 mmol/L BUN 12 (7-17) mg/dL Creatinine 0.54 (0.52-1.04) mg/dL Est GFR (CKD-EPI)AfAm >90 (>60 ml/min/1.73 sqM) Est GFR (CKD-EPI)NonAf >90 (>60 ml/min/1.73 sqM) Glucose 117 H (74-99) mg/dL Calcium 9.1 (8.4-10.2) mg/dL Total Bilirubin 0.8 (0.2-1.3) mg/dL AST 49 H (14-36) U/L ALT 26 (4-34) U/L Alkaline Phosphatase 116 (38-126) U/L Total Protein 8.1 (6.3-8.2) g/dL Albumin 4.5 (3.5-5.0) g/dL Influenza Type A (PCR) Not Detected (Not Detectd) Influenza Type B (PCR) Not Detected (Not Detectd) RSV (PCR) Not Detected (Not Detectd) SARS-CoV-2 (PCR) Not Detected (Not Detectd) 07/09/22 Range/Units 22:02 WBC (3.8-10.6) k/uL RBC (3.80-5.40) m/uL Hgb (11.4-16.0) gm/dL Hct (34.0-46.0) % MCV (80.0-100.0) fL MCH (25.0-35.0) pg MCHC (31.0-37.0) g/dL RDW (11.5-15.5) % Plt Count (150-450) k/uL MPV Neutrophils % % Lymphocytes % % Monocytes % % Eosinophils % % Basophils % % Neutrophils # (1.3-7.7) k/uL Lymphocytes # (1.0-4.8) k/uL Monocytes # (0-1.0) k/uL Eosinophils # (0-0.7) k/uL Basophils # (0-0.2) k/uL Sodium 139 (137-145) mmol/L Potassium 4.7 (3.5-5.1) mmol/L Chloride 108 H (98-107) mmol/L Carbon Dioxide 24 (22-30) mmol/L Anion Gap 7 mmol/L BUN 11 (7-17) mg/dL Creatinine 0.50 L (0.52-1.04) mg/dL Est GFR (CKD-EPI)AfAm >90 (>60 ml/min/1.73 sqM) Est GFR (CKD-EPI)NonAf >90 (>60 ml/min/1.73 sqM) Glucose 135 H (74-99) mg/dL Calcium 8.5 (8.4-10.2) mg/dL Total Bilirubin 0.4 (0.2-1.3) mg/dL AST 31 (14-36) U/L ALT 22 (4-34) U/L Alkaline Phosphatase 115 (38-126) U/L Total Protein 6.4 (6.3-8.2) g/dL Albumin 3.6 (3.5-5.0) g/dL Influenza Type A (PCR) (Not Detectd) Influenza Type B (PCR) (Not Detectd) RSV (PCR) (Not Detectd) SARS-CoV-2 (PCR) (Not Detectd) Disposition Clinical Impression: Migraine Disposition: HOME SELF-CARE Condition: Good Instructions (If sedation given, give patient instructions): Migraine Headache (ED) Additional Instructions: Follow-up with neurology in 1-2 days. Return to emergency department if you ex perience new, concerning, or worsening symptoms. Is patient prescribed a controlled substance at d/c from ED?: No Referrals: Keven Kebede MD [Primary Care Provider] - 1-2 days
== END 2022-07-09 23:34 | disposition home or self-care (01) ==
LOC: EC 20:03
DX: G43.909 Migraine, unspecified, not intractable, without status migrainosus (principal); J44.9 Chronic obstructive pulmonary disease, unspecified; I10 Essential (primary) hypertension; K21.9 Gastro-esophageal reflux disease without esophagitis; E07.9 Disorder of thyroid, unspecified; F41.9 Anxiety disorder, unspecified; F17.200 Nicotine dependence, unspecified, uncomplicated; Z91.030 Bee allergy status; Z88.6 Allergy status to analgesic agent; Z88.1 Allergy status to other antibiotic agents; Z88.8 Allergy status to other drugs, medicaments and biological substances; Z91.048 Other nonmedicinal substance allergy status; Z79.890 Hormone replacement therapy; Z79.82 Long term (current) use of aspirin; Z79.899 Other long term (current) drug therapy; Z20.822 Contact with and (suspected) exposure to COVID-19
CPT/HCPCS: 36415; 80053; 85025; 87636; 71046; 70450; 99284; 96374; 96375 ×3; 96361; J1200; J1100; J2765; J1170

== ENCOUNTER 2022-08-07 23:00 | Emergency (ER) | payer BC, MEDICARE, OTHER ==
[2022-08-07 23:07] VITALS: RESP 16
[2022-08-07] MEDS ORDERED: DEXAMETHASONE SOD PHOSPHATE 10 MG/ML 1 ML VIAL IVP STA (23:23)
[2022-08-07] MEDS ORDERED: SODIUM CHLORIDE 0.9% 1,000 ML IV STA (23:23)
[2022-08-07] MEDS ORDERED: ORPHENADRINE 30 MG/ML 2 ML VIAL IVP STA (23:23)
[2022-08-07] MEDS ORDERED: KETOROLAC 15 MG/ML 1 ML VIAL IVP STA (23:23)
[2022-08-07] MEDS ORDERED: METOCLOPRAMIDE 5 MG/ML 2 ML VIAL IVP STA (23:23)
[2022-08-08] MEDS ORDERED: HYDROmorphone 0.5 MG/0.5 ML SYRINGE IVP STA (00:39)
--- NOTE | 2022-08-08 01:00 | ED ---
Headache HPI - General Chief Complaint: Headache Stated Complaint: Migraine, MS Flare-up Time Seen by Provider: 08/07/22 23:15 Mode of arrival: ambulatory Limitations: no limitations - History of Present Illness Initial Comments: Patient is a 47-year-old female with history of multiple sclerosis presenting with chief complaint of generalized pain. Patient has history of migraines and is currently experiencing a migraine consistent with those of her past. She is also experiencing generalized body aches. No chest pain or difficulty breathing. No abdominal pain, nausea, vomiting. No fevers or chills. No URI like symptoms. - Related Data Home Medications Medication Instructions Recorded Confirmed Levothyroxine Sodium [Synthroid] 50 mcg PO DAILY 01/05/14 07/07/22 ALPRAZolam [Xanax] 0.5 mg PO TID PRN 11/24/17 07/07/22 Albuterol Nebulized [Ventolin 2.5 mg INHALATION RT-QID PRN 05/28/18 07/07/22 Nebulized] Multivitamins, Thera [Multivitamin 1 tab PO DAILY 05/28/18 07/07/22 (formulary)] Pantoprazole Sodium [Protonix] 40 mg PO DAILY 05/28/18 07/07/22 Vitamin A [Vitamin A (8,000 Units 8,000 unit PO DAILY 12/19/19 07/07/22 = 2,400 MCG)] Zinc Sulfate 220 mg PO DAILY 12/19/19 07/07/22 Cyclobenzaprine [Flexeril] 10 mg PO HS 10/29/20 07/07/22 Metoprolol Succinate (ER) [Toprol 12.5 mg PO DAILY 10/29/20 07/07/22 XL] Meclizine [Antivert] 12.5 mg PO BID PRN 01/23/21 07/07/22 buPROPion HCL [Wellbutrin XL] 150 mg PO DAILY 01/23/21 07/07/22 Albuterol Inhaler [Ventolin Hfa 2 puff INHALATION RT-QID PRN 08/21/21 07/07/22 Inhaler] Atogepant [Qulipta] 60 mg PO DAILY 08/21/21 07/07/22 Ubrogepant [Ubrelvy] 100 mg PO DAILY PRN 08/21/21 07/07/22 Pravastatin Sodium [Pravachol] 20 mg PO DAILY 01/03/22 07/07/22 Aspirin 81 mg PO DAILY 02/12/22 07/07/22 Gabapentin [Neurontin] 400 mg PO TID 02/12/22 07/07/22 Ofatumumab [Kesimpta Pen] 20 mg SQ Q30D 02/12/22 07/07/22 Famotidine 40 mg PO HS 02/19/22 07/07/22 Fluticasone/Umeclidin/Vilanter 1 puff INHALATION RT-DAILY 02/19/22 07/07/22 [Trelegy Ellipta 100-62.5-25] HYDROcodone/APAP 10-325MG [[place] 1 tab PO TID PRN 02/19/22 07/07/22 10-325] Previous Rx's Medication Instructions Recorded Budesonide-Formot 160-4.5 Mcg 2 puff INHALATION RT-BID #1 each 02/25/22 [Symbicort 160-4.5 Mcg Inhaler] Azithromycin [Zithromax Z Pack] 1 tab PO DIRECTED #6 tab 07/05/22 Allergies Allergy/AdvReac Type Severity Reaction Status Date / Time bee venom protein (honey bee) Allergy SWELLING , Verified 08/07/22 23:02 AND ITCHING nitrofurantoin Allergy Rash/Hives Verified 08/07/22 23:02 [From Macrobid] nitrofurantoin Allergy Rash/Hives Verified 08/07/22 23:02 macrocrystalline [From Macrobid] moxifloxacin [From Avelox] AdvReac Nausea & Verified 08/07/22 23:02 Vomiting NSAIDS (Non-Steroidal AdvReac Unknown Verified 08/07/22 23:02 Anti-Inflamma seasonal allergies Allergy Unknown Uncoded 08/07/22 23:02 Review of Systems ROS Statement: Those systems with pertinent positive or pertinent negative responses have been documented in the HPI. ROS Other: All systems not noted in ROS Statement are negative. Past Medical History Past Medical History: Asthma, COPD, GERD/Reflux, Hypertension, Musculoskeletal Disorder, Neurologic Disorder, Sleep Apnea/CPAP/BIPAP, Thyroid Disorder Additional Past Medical History / Comment(s): smoking-related interstitial lung disease, doesn't use CPAP, history of seizure at the age of 16 related to med. to stop breast milk, endometriosis, chronic back pain, plantar fasciitis, hx. of Achilles tendinitis, probably antibiotic induced. She also has history of hypothyroidism, ALLERGIC rhinitis, migraines, current steroids for wheezing & cough, uses oxygen prn, recent iron infusion, MS History of Any Multi-Drug Resistant Organisms: None Reported Past Surgical History: Bariatric Surgery, Hysterectomy, Tubal Ligation, Uterine Ablation Additional Past Surgical History / Comment(s): LEEP PROCEDURE X 2, EGD, BACK INJECTIONS FOR PAIN. The patient has also undergone thoracic/thoracoscopic wedge biopsy of the right lung. 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; R and Y bypass at [facility] 2019,TRACHEOTOMY-RESOLVED Past Anesthesia/Blood Transfusion Reactions: Motion Sickness Additional Past Anesthesia/Blood Transfusion Reaction / Comment(s): no problem w/blood transfusion Past Psychological History: Anxiety Smoking Status: Current every day smoker Past Alcohol Use History: Rare Past Drug Use History: None Reported - Past Family History Sister(s) Family Medical History: Cancer Mother Family Medical History: Cancer Additional Family Medical History / Comment(s): breast cancer Father Family Medical History: COPD, CVA/TIA, Myocardial Infarction ([place]) Additional Family Medical History / Comment(s): HEART PROBLEMS, AT AGE 64 General Exam Limitations: no limitations General appearance: alert, in no apparent distress Head exam: Present: atraumatic, normocephalic, normal inspection Eye exam: Present: normal appearance, EOMI. Absent: periorbital swelling Neck exam: Present: normal inspection, full ROM Respiratory exam: Present: normal lung sounds bilaterally. Absent: respiratory distress, wheezes, rales, rhonchi, stridor Cardiovascular Exam: Present: regular rate, normal rhythm, normal heart sounds. Absent: systolic murmur, diastolic murmur, rubs, gallop, clicks Neurological exam: Present: alert, oriented X3, CN II-XII intact Expanded Patient oriented to: Present: person, place, time Speech: Present: fluid speech Cranial nerves: EOM's Intact: Normal Motor strength exam: RUE: 5, LUE: 5, RLE: 5, LLE: 5 Eye Response: (4) open spontaneously Motor Response: (6) obeys commands Verbal Response: (5) oriented [place] Total: 15 Psychiatric exam: Present: normal affect, normal mood Skin exam: Present: warm, dry, intact, normal color. Absent: rash Course Vital Signs 08/07/22 08/08/22 23:02 01:30 Temperature 98.1 F Pulse Rate 104 H 90 Respiratory 16 16 Rate Blood Pressure 129/76 138/84 O2 Sat by Pulse 94 L 93 L Oximetry Medical Decision Making - Medical Decision Making Was pt. sent in by a medical professional or institution (, BECKY, INDUSTRIAL RELATIONS WORKER, urgent care, hospital, or usp...) When possible be specific @ -No Did you speak to anyone other than the patient for history (EMS, parent, family, police, friend...)? What history was obtained from this source @ -No Did you review nursing and triage notes (agree or disagree)? Why? @ -I reviewed and agree with nursing and triage notes Were old charts reviewed (outside hosp., previous admission, EMS record, old EKG, old radiological studies, urgent care reports/EKG's, usp records)? Report findings @ -No old charts were reviewed Differential Diagnosis (chest pain, altered mental status, abdominal pain women, abdominal pain men, vaginal bleeding, weakness, fever, dyspnea, syncope, headache, dizziness, GI bleed, back pain, seizure, CVA, palpatations, mental health, musculoskeletal)? @ -MDM Differential Headache: Migraine, tension, cluster, carbon monoxide, central venous thrombosis, pension karma temporal arteritis, acute closure glaucoma, intercranial hemorrhage, mastoiditis, sinusitis, head injury this is not meant to be an all-inclusive list. EKG interpreted by me (3pts min.). @ -As above X-rays interpreted by me (1pt min.). @ -None done CT interpreted by me (1pt min.). @ -None done U/S interpreted by me (1pt. min.). @ -None done What testing was considered but not performed or refused? (CT, X-rays, U/S, labs)? Why? @ -None What meds were considered but not given or refused? Why? @ -None Did you discuss the management of the patient with other professionals (professionals i.e. BECKY Jiménez, INDUSTRIAL RELATIONS WORKER, lab, RT, psych nurse, social media assistant, weaver hand, teacher, parcel post officer, casework supervisor)? Give summary @ -No Was smoking cessation discussed for >3mins.? @ -No Was critical care preformed (if so, how long)? @ -No Were there social determinants of health that impacted care today? How? (Homelessness, low income, unemployed, alcoholism, drug addiction, transportation, low edu. Level, literacy, decrease access to med. care, custodial, rehab)? @ -No Was there de-escalation of care discussed even if they declined (Discuss DNR or withdrawal of care, Hospice)? DNR status @ -No What co-morbidities impacted this encounter? (DM, HTN, Smoking, COPD, CAD, Cancer, CVA, ARF, Chemo, Hep., AIDS, mental health diagnosis, sleep apnea, morbid obesity)? @ -None Was patient admitted / discharged? Hospital course, mention meds given and route, prescriptions, significant lab abnormalities, going to OR and other pertinent info. @ -Patient is a 47-year-old female with history of multiple sclerosis and migraines presenting with chief complaint of headache and generalized body aches. On physical examination there are no focal neurological deficits. Patient is given migraine cocktail. On reassessment patient is resting comfortably in bed. She appears stable for discharge with outpatient follow-up at this time. Follow-up with PCP. Report back to ER with any new or worsening symptoms. Discussed return parameters and answered all questions. Patient conveyed verbal understanding and agreed to the plan. I discussed this case in detail with my attending Dr. Minor Undiagnosed new problem with uncertain prognosis? @ -No Drug Therapy requiring intensive monitoring for toxicity (Heparin, Nitro, I nsulin, Cardizem)? @ -No Were any procedures done? @ -No Diagnosis/symptom? @ -Migraine Acute, or Chronic, or Acute on Chronic? @ -Acute Uncomplicated (without systemic symptoms) or Complicated (systemic symptoms)? @ -Uncomplicated Side effects of treatment? @ -No Exacerbation, Progression, or Severe Exacerbation? @ -No Poses a threat to life or bodily function? How? (Chest pain, [place], [place], pneumonia, PE, COPD, DKA, ARF, appy, cholecystitis, CVA, Diverticulitis, Homicidal, Suicidal, threat to staff... and all critical care pts) @ -No Disposition Clinical Impression: Migraine Disposition: HOME SELF-CARE Condition: Good Instructions (If sedation given, give patient instructions): Acute Headache (ED) Additional Instructions: Follow-up with PCP. Report back to ER with any new or worsening symptoms. Take Motrin and Tylenol as needed for pain control. Is patient prescribed a controlled substance at d/c from ED?: No Referrals: Keven Kebede MD [Primary Care Provider] - 1-2 days Time of Disposition: 01:00
[2022-08-08 01:25] VITALS: TEMP 98.1
[2022-08-08 01:31] VITALS: BP 138/84; PULSE 90
--- NOTE | 2022-08-08 04:22 | ED ---
General Adult HPI - General Chief complaint: Headache Stated complaint: Migraine, MS Flare-up Time Seen by Provider: 08/07/22 23:15 Source: patient Mode of arrival: ambulatory Limitations: no limitations - History of Present Illness Initial comments: Patient is a 47-year-old female with a history of multiple sclerosis presenting with chief complaint of generalized pain. Patient is complaining of body aches as well as migraine. Patient has history of migraines, states that this headache is consistent with her usual migraines. No vision or hearing changes no numbness or tingling. No weakness. No chest pain or difficulty breathing. No palpitations. No recent injury or trauma. No abdominal pain, nausea, vomiting. No Fevers or chills. - Related Data Home Medications Medication Instructions Recorded Confirmed Levothyroxine Sodium [Synthroid] 50 mcg PO DAILY 01/05/14 07/07/22 ALPRAZolam [Xanax] 0.5 mg PO TID PRN 11/24/17 07/07/22 Albuterol Nebulized [Ventolin 2.5 mg INHALATION RT-QID PRN 05/28/18 07/07/22 Nebulized] Multivitamins, Thera [Multivitamin 1 tab PO DAILY 05/28/18 07/07/22 (formulary)] Pantoprazole Sodium [Protonix] 40 mg PO DAILY 05/28/18 07/07/22 Vitamin A [Vitamin A (8,000 Units 8,000 unit PO DAILY 12/19/19 07/07/22 = 2,400 MCG)] Zinc Sulfate 220 mg PO DAILY 12/19/19 07/07/22 Cyclobenzaprine [Flexeril] 10 mg PO HS 10/29/20 07/07/22 Metoprolol Succinate (ER) [Toprol 12.5 mg PO DAILY 10/29/20 07/07/22 XL] Meclizine [Antivert] 12.5 mg PO BID PRN 01/23/21 07/07/22 buPROPion HCL [Wellbutrin XL] 150 mg PO DAILY 01/23/21 07/07/22 Albuterol Inhaler [Ventolin Hfa 2 puff INHALATION RT-QID PRN 08/21/21 07/07/22 Inhaler] Atogepant [Qulipta] 60 mg PO DAILY 08/21/21 07/07/22 Ubrogepant [Ubrelvy] 100 mg PO DAILY PRN 08/21/21 07/07/22 Pravastatin Sodium [Pravachol] 20 mg PO DAILY 01/03/22 07/07/22 Aspirin 81 mg PO DAILY 02/12/22 07/07/22 Gabapentin [Neurontin] 400 mg PO TID 02/12/22 07/07/22 Ofatumumab [Kesimpta Pen] 20 mg SQ Q30D 02/12/22 07/07/22 Famotidine 40 mg PO HS 02/19/22 07/07/22 Fluticasone/Umeclidin/Vilanter 1 puff INHALATION RT-DAILY 02/19/22 07/07/22 [Trelegy Ellipta 100-62.5-25] HYDROcodone/APAP 10-325MG [[place] 1 tab PO TID PRN 02/19/22 07/07/22 10-325] Previous Rx's Medication Instructions Recorded Budesonide-Formot 160-4.5 Mcg 2 puff INHALATION RT-BID #1 each 02/25/22 [Symbicort 160-4.5 Mcg Inhaler] Azithromycin [Zithromax Z Pack] 1 tab PO DIRECTED #6 tab 07/05/22 Allergies Allergy/AdvReac Type Severity Reaction Status Date / Time bee venom protein (honey bee) Allergy SWELLING , Verified 08/07/22 23:02 AND ITCHING nitrofurantoin Allergy Rash/Hives Verified 08/07/22 23:02 [From Macrobid] nitrofurantoin Allergy Rash/Hives Verified 08/07/22 23:02 macrocrystalline [From Macrobid] moxifloxacin [From Avelox] AdvReac Nausea & Verified 08/07/22 23:02 Vomiting NSAIDS (Non-Steroidal AdvReac Unknown Verified 08/07/22 23:02 Anti-Inflamma seasonal allergies Allergy Unknown Uncoded 08/07/22 23:02 Review of Systems ROS Statement: Those systems with pertinent positive or pertinent negative responses have been documented in the HPI. ROS Other: All systems not noted in ROS Statement are negative. Past Medical History Past Medical History: Asthma, COPD, GERD/Reflux, Hypertension, Musculoskeletal Disorder, Neurologic Disorder, Sleep Apnea/CPAP/BIPAP, Thyroid Disorder Additional Past Medical History / Comment(s): smoking-related interstitial lung disease, doesn't use CPAP, history of seizure at the age of 16 related to med. to stop breast milk, endometriosis, chronic back pain, plantar fasciitis, hx. of Achilles tendinitis, probably antibiotic induced. She also has history of hypothyroidism, ALLERGIC rhinitis, migraines, current steroids for wheezing & cough, uses oxygen prn, recent iron infusion, MS History of Any Multi-Drug Resistant Organisms: None Reported Past Surgical History: Bariatric Surgery, Hysterectomy, Tubal Ligation, Uterine Ablation Additional Past Surgical History / Comment(s): LEEP PROCEDURE X 2, EGD, BACK INJECTIONS FOR PAIN. The patient has also undergone thoracic/thoracoscopic wedge biopsy of the right lung. 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; R and Y bypass at [facility] 2019,TRACHEOTOMY-RESOLVED Past Anesthesia/Blood Transfusion Reactions: Motion Sickness Additional Past Anesthesia/Blood Transfusion Reaction / Comment(s): no problem w/blood transfusion Past Psychological History: Anxiety Smoking Status: Current every day smoker Past Alcohol Use History: Rare Past Drug Use History: None Reported - Past Family History Sister(s) Family Medical History: Cancer Mother Family Medical History: Cancer Additional Family Medical History / Comment(s): breast cancer Father Family Medical History: COPD, CVA/TIA, Myocardial Infarction (HI) Additional Family Medical History / Comment(s): HEART PROBLEMS, AT AGE 64 General Exam Limitations: no limitations General appearance: alert, in no apparent distress Head exam: Present: atraumatic, normocephalic, normal inspection Eye exam: Present: normal appearance, EOMI. Absent: periorbital swelling Neck exam: Present: normal inspection, full ROM Respiratory exam: Present: normal lung sounds bilaterally. Absent: respiratory distress, wheezes, rales, rhonchi, stridor Cardiovascular Exam: Present: regular rate, normal rhythm, normal heart sounds. Absent: systolic murmur, diastolic murmur, rubs, gallop, clicks Neurological exam: Present: alert, oriented X3, CN II-XII intact Psychiatric exam: Present: normal affect, normal mood Skin exam: Present: warm, dry, intact, normal color. Absent: rash Course Vital Signs 08/07/22 23:02 Pulse Rate 104 H Respiratory 16 Rate Blood Pressure 129/76 O2 Sat by Pulse 94 L Oximetry Disposition Referrals: Keven Kebede MD [Primary Care Provider] - 1-2 days
== END 2022-08-08 01:31 | disposition home or self-care (01) ==
LOC: EC 23:00
DX: G43.909 Migraine, unspecified, not intractable, without status migrainosus (principal); J44.9 Chronic obstructive pulmonary disease, unspecified; I10 Essential (primary) hypertension; K21.9 Gastro-esophageal reflux disease without esophagitis; G47.30 Sleep apnea, unspecified; E07.9 Disorder of thyroid, unspecified; F41.9 Anxiety disorder, unspecified; F17.200 Nicotine dependence, unspecified, uncomplicated; Z79.890 Hormone replacement therapy; Z79.899 Other long term (current) drug therapy; Z79.51 Long term (current) use of inhaled steroids; Z79.82 Long term (current) use of aspirin; Z91.030 Bee allergy status; Z88.6 Allergy status to analgesic agent; Z88.8 Allergy status to other drugs, medicaments and biological substances; Z88.1 Allergy status to other antibiotic agents
CPT/HCPCS: 99283; 96374; 96375 ×3; 96361; J1100; J2360; J2765; J1885

== ENCOUNTER → 2022-09-14 | Outpatient (CLI) | payer BC, MEDICARE, OTHER ==
--- NOTE | 2022-09-14 14:34 | CT ---
EXAMINATION TYPE: CT sinus wo con DATE OF EXAM: 09/14/2022 COMPARISON: 11/04/2014 HISTORY: Chronic sinusitis, right side more than left CT DLP: 609.[address] of the paranasal sinuses was performed in the axial and coronal planes. Bone and soft tissue settings are submitted. The paranasal sinuses demonstrate normal aeration and development. Right maxillary mucous retention cyst or polyp is slightly enlarged at 1.2 cm versus 9 mm previously. There is stable mild scattered mucosal thickening of the ethmoid air cells. The left maxillary sinus , frontal sinuses and sphenoid sinuses are all well aerated. The osteal meatal units are patent bilaterally. The nasal septum is midline. No bony destructive changes are seen within the field of view. IMPRESSION: Right maxillary mucous retention cyst or polyp is slightly enlarged at 1.2 cm versus 9 mm previously. There is stable mild scattered mucosal thickening of the ethmoid air cells.
== END | disposition home or self-care (01) ==
LOC: RADCTMAIN 14:01
PROVIDERS: ATTEND Otolaryngology
DX: J32.0 Chronic maxillary sinusitis (principal); J34.89 Other specified disorders of nose and nasal sinuses
CPT/HCPCS: 70486

== ENCOUNTER 2023-02-18 17:41 | Inpatient (IN) | payer BC, MEDICARE, OTHER ==
--- NOTE | 2023-02-18 18:54 | ED ---
Weakness HPI - General Chief complaint: Weakness Stated complaint: slurred words, fainting, unstable Time Seen by Provider: 02/18/23 17:54 Source: patient Mode of arrival: ambulatory Limitations: no limitations - History of Present Illness Initial comments: This patient is a 47-year-old woman who states that she has not felt right since hollowing. She states she is feeling generalized weakness. She has some lightheadedness. She has numbness or tingling throughout. She states that she feels like she is at times confused and not answering appropriately. She has not noticed fevers. No pain. Patient denies having dyspnea. MD Complaint: generalized weakness, numbness, lack of energy Onset/Timin -: days(s) Location: generalized Quality: numbness Consistency: constant Improves with: none Worsens with: none Associated Symptoms: loss of appetite - Related Data Home Medications Medication Instructions Recorded Confirmed Levothyroxine Sodium [Synthroid] 50 mcg PO DAILY 01/05/14 02/19/23 ALPRAZolam [Xanax] 1 mg PO TID PRN 11/24/17 02/19/23 Pantoprazole Sodium [Protonix] 40 mg PO DAILY 05/28/18 02/19/23 Cyclobenzaprine [Flexeril] 10 - 20 mg PO BID PRN 10/29/20 02/19/23 Metoprolol Succinate (ER) [Toprol 12.5 mg PO DAILY 10/29/20 02/19/23 XL] buPROPion HCL [Wellbutrin XL] 150 mg PO BID 01/23/21 02/19/23 Atogepant [Qulipta] 60 mg PO DAILY PRN 08/21/21 02/19/23 Pravastatin Sodium [Pravachol] 20 mg PO DAILY 01/03/22 02/19/23 Ofatumumab [Kesimpta Pen] 20 mg SQ Q30D 02/12/22 02/19/23 HYDROcodone/APAP 10-325MG [[place] 1 tab PO TID PRN 02/19/22 02/19/23 10-325] Albuterol Sulfate [Albuterol 2 puff PO RT-Q6H PRN 02/19/23 02/19/23 Sulfate Hfa] [place]/APAP/Caf/Cod 42-094-38-30 1 cap PO BID PRN 02/19/23 02/19/23 [Fioricet w/Cod 81-040-04-30MG] Celecoxib [CeleBREX] 100 mg PO BID 02/19/23 02/19/23 Gabapentin [Neurontin] 400 mg PO TID 02/19/23 02/19/23 Ipratropium-Albuterol Nebulize 3 ml INHALATION RT-QID PRN 02/19/23 02/19/23 [Duoneb 0.5 mg-3 mg/3 ml Soln] Naloxone HCl [Narcan] 4 mg NASAL DIRECTED PRN 02/19/23 02/19/23 Previous Rx's Medication Instructions Recorded Famotidine [Pepcid] 20 mg PO DAILY #30 tab 02/21/23 Allergies Allergy/AdvReac Type Severity Reaction Status Date / Time bee venom protein (honey bee) Allergy SWELLING , Verified 03/09/23 12:25 AND ITCHING nitrofurantoin Allergy Rash/Hives Verified 03/09/23 12:25 [From Macrobid] nitrofurantoin Allergy Rash/Hives Verified 03/09/23 12:25 macrocrystalline [From Macrobid] Bleach (Sodium Hypochlorite) AdvReac Unknown Verified 03/09/23 12:25 moxifloxacin [From Avelox] AdvReac Nausea & Verified 03/09/23 12:25 Vomiting NSAIDS (Non-Steroidal AdvReac Unknown Verified 03/09/23 12:25 Anti-Inflamma seasonal allergies Allergy Unknown Uncoded 03/09/23 12:25 Review of Systems ROS Statement: Those systems with pertinent positive or pertinent negative responses have been documented in the HPI. ROS Other: All systems not noted in ROS Statement are negative. Constitutional: Reports: weakness. Denies: fever, chills Eyes: Denies: vision change Respiratory: Denies: cough, dyspnea, wheezes Cardiovascular: Denies: chest pain, palpitations, orthopnea, edema, syncope Gastrointestinal: Denies: abdominal pain, nausea, vomiting, diarrhea Genitourinary: Denies: dysuria, hematuria Musculoskeletal: Denies: back pain Skin: Denies: rash Neurological: Reports: confusion. Denies: headache, weakness, numbness Past Medical History Past Medical History: Asthma, COPD, CVA/TIA, GERD/Reflux, Hypertension, Musculoskeletal Disorder, Neurologic Disorder, Sleep Apnea/CPAP/BIPAP, Thyroid Disorder Additional Past Medical History / Comment(s): smoking-related interstitial lung disease, doesn't use CPAP, history of seizure at the age of 16 related to med. to stop breast milk, endometriosis, chronic back pain, plantar fasciitis, hx. of Achilles tendinitis, probably antibiotic induced. She also has history of hypothyroidism, ALLERGIC rhinitis, migraines, uses oxygen 2L prn, recent iron infusion, MS , tia 2020 no residual issues, needs cholecystetomy, tinnitus, balance issues, History of Any Multi-Drug Resistant Organisms: None Reported Past Surgical History: Bariatric Surgery, Hysterectomy, Tubal Ligation, Uterine Ablation Additional Past Surgical History / Comment(s): LEEP PROCEDURE X 2, EGD, BACK INJECTIONS FOR PAIN. The patient has also undergone thoracic/thoracoscopic wedge biopsy of the right lung. 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; R and Y bypass at [facility] 2019,TRACHEOTOMY-RESOLVED Past Anesthesia/Blood Transfusion Reactions: Motion Sickness Additional Past Anesthesia/Blood Transfusion Reaction / Comment(s): no problem w/blood transfusion Past Psychological History: Anxiety, Depression Smoking Status: Current every day smoker - Past Family History Sister(s) Family Medical History: Cancer Mother Family Medical History: Cancer Additional Family Medical History / Comment(s): breast cancer Father Family Medical History: COPD, CVA/TIA, Myocardial Infarction (DC) Additional Family Medical History / Comment(s): HEART PROBLEMS, AT AGE 64 General Exam Limitations: no limitations General appearance: alert, in no apparent distress Head exam: Present: atraumatic, normocephalic Eye exam: Present: normal appearance. Absent: scleral icterus, conjunctival injection ENT exam: Present: mucous membranes dry Neck exam: Present: normal inspection Respiratory exam: Present: wheezes. Absent: respiratory distress, rales, rh onchi, stridor, accessory muscle use, decreased breath sounds Cardiovascular Exam: Present: regular rate, normal rhythm, normal heart sounds. Absent: systolic murmur, diastolic murmur, rubs, gallop GI/Abdominal exam: Present: soft. Absent: distended, tenderness, guarding, rebound, rigid, mass Extremities exam: Present: normal inspection, normal capillary refill. Absent: pedal edema, calf tenderness Back exam: Present: normal inspection. Absent: CVA tenderness (R), CVA tenderness (L) Neurological exam: Present: alert, CN II-XII intact. Absent: oriented X3, motor sensory deficit Skin exam: Present: warm, dry, intact, normal color. Absent: rash Course Vital Signs 02/18/23 02/18/23 02/18/23 18:05 20:35 22:00 Temperature 97.8 F Pulse Rate 82 93 Respiratory 18 18 Rate Blood Pressure 72/49 100/61 109/62 O2 Sat by Pulse 92 L 97 Oximetry 02/18/23 02/18/23 02/19/23 22:25 23:40 00:56 Temperature 98.5 F 98.4 F Pulse Rate 92 96 95 Respiratory 16 18 18 Rate Blood Pressure 90/65 90/77 118/78 O2 Sat by Pulse 96 97 97 Oximetry EKG Findings - EKG Results: EKG: interpreted by MAHENDRA, sinus rhythm (Rate 99 bpm), normal axis - Blocks, [place], Hypertrophy, ST Abn: Repolarization changes or abnormalities: nonspecific abnormality, ST segment, a nd/or T wave Procedures - Sepsis Sepsis Focused Exam #1 Time Sepsis Criteria Met: 20:15 Sepsis Focused Exam Complete: Yes Vital Signs & RN Notes Reviewed: Yes Capillary Refill: < 2 Seconds: Fingers Peripheral Pulses: Normal: Radial (R) Skin Color: Normal for Patient Respiratory Exam: normal lung sounds Cardiovascular Exam: regular rate, normal rhythm Medical Decision Making - Medical Decision Making The patient had chest x-ray which I interpreted as being negative for acute infiltrate, pneumothorax, congestive heart failure The patient had CT of the brain which I interpreted as negative for acute intracranial hemorrhage or acute bony trauma. Was pt. sent in by a medical professional or institution (Dr. PA, GLASS INSTALLER, urgent care, hospital, or senior living...) When possible be specific @ -[No] Did you speak to anyone other than the patient for history (EMS, parent, family, police, friend...)? What history was obtained from this source @ -[No] Did you review nursing and triage notes (agree or disagree)? Why? @ -[I reviewed and agree with nursing and triage notes] Were old charts reviewed (outside hosp., previous admission, EMS record, old E KG, old radiological studies, urgent care reports/EKG's, senior living records)? Report findings @ -[No old charts were reviewed] Differential Diagnosis (chest pain, altered mental status, abdominal pain women, abdominal pain men, vaginal bleeding, weakness, fever, dyspnea, syncope, headache, dizziness, GI bleed, back pain, seizure, CVA, palpatations, mental h ealth, musculoskeletal)? @ -[Differential Weakness: Hypoglycemia, shock, sepsis, hyponatremia, anemia, infection, DC, ETOH, adverse medicine reaction, overdose, stroke, this is not meant to be an all-inclusive list. EKG interpreted by me (3pts min.). @ -[I interpreted as above X-rays interpreted by me (1pt min.). @ -[I interpreted as above CT interpreted by me (1pt min.). @ -[I interpreted as above U/S interpreted by me (1pt. min.). @ -[None done] What testing was considered but not performed or refused? (CT, X-rays, U/S, labs)? Why? @ -[None] What meds were considered but not given or refused? Why? @ -[None] Did you discuss the management of the patient with other professionals (professionals i.e. , PA, GLASS INSTALLER, lab, RT, psych nurse, social worker school, attorney lawyer, teacher, restoration officer, case technician)? Give summary @ -[Case discussed with the admitting physician will admit the patient to have further evaluation and treatment as well as nephrology consultation. Was smoking cessation discussed for >3mins.? @ -[No] Was critical care preformed (if so, how long)? @ -[Yes, 30 minutes Were there social determinants of health that impacted care today? How? (Homelessness, low income, unemployed, alcoholism, drug addiction, transportation, low edu. Level, literacy, decrease access to med. care, half-way, rehab)? @ -[No] Was there de-escalation of care discussed even if they declined (Discuss DNR or withdrawal of care, Hospice)? DNR status @ -[No] What co-morbidities impacted this encounter? (DM, HTN, Smoking, COPD, CAD, Cancer, CVA, ARF, Chemo, Hep., AIDS, mental health diagnosis, sleep apnea, morbid obesity)? @ -[None] Was patient admitted / discharged? Hospital course, mention meds given and rout e, prescriptions, significant lab abnormalities, going to OR and other pertinent info. @ -[Patient is admitted for IV fluids and antibiotics as well as further evaluation and treatment relates to acute kidney injury and sepsis Sepsis at 2015. IV antibiotics and sepsis bolus are ordered. Undiagnosed new problem with uncertain prognosis? @ -[No] Drug Therapy requiring intensive monitoring for toxicity (Heparin, Nitro, Ins ulin, Cardizem)? @ -[No] Were any procedures done? @ -[No] Diagnosis/symptom? @ -[Acute kidney injury Acute metabolic encephalopathy Sepsis Acute urinary tract infection Hyponatremia, mild Acute, or Chronic, or Acute on Chronic? @ -[Acute Uncomplicated (without systemic symptoms) or Complicated (systemic symptoms)? @ -[Complicated by mental status change Side effects of treatment? @ -[No] Exacerbation, Progression, or Severe Exacerbation? @ -[No] Poses a threat to life or bodily function? How? (Chest pain, USA, DC, pneumonia, PE, COPD, DKA, ARF, appy, cholecystitis, CVA, Diverticulitis, Homicidal, Suicidal, threat to staff... and all critical care pts) @ -[This there is a small risk of threat to life given that patient manifesting acute kidney injury - Lab Data Result diagrams: 02/18/23 18:55 02/21/23 05:30 Lab Results 02/18/23 02/18/23 02/18/23 Range/Units 18:55 18:55 18:55 WBC 27.5 H (3.8-10.6) k/uL RBC 4.36 (3.80-5.40) m/uL Hgb 13.9 (11.4-16.0) gm/dL Hct 42.7 (34.0-46.0) % MCV 98.0 (80.0-100.0) fL MCH 31.8 (25.0-35.0) pg MCHC 32.4 (31.0-37.0) g/dL RDW 13.3 (11.5-15.5) % Plt Count 256 (150-450) k/uL MPV 9.1 Neutrophils % (Manual) 80 % Band Neuts % (Manual) 2 % Lymphocytes % (Manual) 9 % Monocytes % (Manual) 6 % Eosinophils % (Manual) 1 % Metamyelocytes % 2 % Myelocytes % 2 % Neutrophils # (Manual) 22.50 H (1.3-7.7) k/uL Lymphocytes # (Manual) 2.48 (1.0-4.8) k/uL Monocytes # (Manual) 1.65 H (0-1.0) k/uL Eosinophils # (Manual) 0.28 (0-0.7) k/uL Metamyelocytes # (Man) 0.55 H (0) k/uL Myelocytes # (Manual) 0.55 H (0) k/uL Nucleated RBCs 0 (0-0) /100 WBC Manual Slide Review Performed Large Platelets Present RBC Morphology Normal Sodium 132 L (137-145) mmol/L Potassium 3.9 (3.5-5.1) mmol/L Chloride 98 (98-107) mmol/L Carbon Dioxide 18 L (22-30) mmol/L Anion Gap 16 mmol/L BUN 40 H (7-17) mg/dL Creatinine 1.97 H (0.52-1.04) mg/dL Est GFR (CKD-EPI) (>=60) Est GFR (CKD-EPI)AfAm 34 (>60 ml/min/1.73 sqM) Est GFR (CKD-EPI)NonAf 29 (>60 ml/min/1.73 sqM) BUN/Creatinine Ratio (12.00-20.00) Ratio Glucose 125 H (74-99) mg/dL Lactic Ac Sepsis Rflx Plasma Lactic Acid Miguel Angel 2.6 H* (0.7-2.0) mmol/L Calcium 8.4 (8.4-10.2) mg/dL Magnesium 2.3 (1.6-2.3) mg/dL Total Bilirubin 1.2 (0.2-1.3) mg/dL AST 49 H (14-36) U/L ALT 31 (4-34) U/L Alkaline Phosphatase 371 H (38-126) U/L Ammonia <9 (<30) umol/L Lactate Dehydrogenase (120-246) U/L Troponin I (0.000-0.034) ng/mL Total Protein 5.7 L (6.3-8.2) g/dL Albumin 2.7 L (3.5-5.0) g/dL Urine Color Urine Appearance (Clear) Urine pH (5.0-8.0) Ur Specific [place] (1.001-1.035) Urine Protein (Negative) Urine Glucose (UA) (Negative) Urine Ketones (Negative) Urine Blood (Negative) Urine Nitrite (Negative) Urine Bilirubin (Negative) Urine Urobilinogen (<2.0) mg/dL Ur Leukocyte Esterase (Negative) Urine RBC (0-5) /hpf Urine WBC (0-5) /hpf Urine WBC Clumps (None) /hpf Urine Bacteria (None) /hpf Serum Alcohol <10 mg/dL 02/18/23 02/18/23 02/19/23 Range/Units 18:55 20:08 00:40 WBC (3.8-10.6) k/uL RBC (3.80-5.40) m/uL Hgb (11.4-16.0) gm/dL Hct (34.0-46.0) % MCV (80.0-100.0) fL MCH (25.0-35.0) pg MCHC (31.0-37.0) g/dL RDW (11.5-15.5) % Plt Count (150-450) k/uL MPV Neutrophils % (Manual) % Band Neuts % (Manual) % Lymphocytes % (Manual) % Monocytes % (Manual) % Eosinophils % (Manual) % Metamyelocytes % % Myelocytes % % Neutrophils # (Manual) (1.3-7.7) k/uL Lymphocytes # (Manual) (1.0-4.8) k/uL Monocytes # (Manual) (0-1.0) k/uL Eosinophils # (Manual) (0-0.7) k/uL Metamyelocytes # (Man) (0) k/uL Myelocytes # (Manual) (0) k/uL Nucleated RBCs (0-0) /100 WBC Manual Slide Review Large Platelets RBC Morphology Sodium (137-145) mmol/L Potassium (3.5-5.1) mmol/L Chloride (98-107) mmol/L Carbon Dioxide (22-30) mmol/L Anion Gap mmol/L BUN (7-17) mg/dL Creatinine (0.52-1.04) mg/dL Est GFR (CKD-EPI) (>=60) Est GFR (CKD-EPI)AfAm (>60 ml/min/1.73 sqM) Est GFR (CKD-EPI)NonAf (>60 ml/min/1.73 sqM) BUN/Creatinine Ratio (12.00-20.00) Ratio Glucose (74-99) mg/dL Lactic Ac Sepsis Rflx Y Plasma Lactic Acid [place] 2.9 H* (0.7-2.0) mmol/L Calcium (8.4-10.2) mg/dL Magnesium (1.6-2.3) mg/dL Total Bilirubin (0.2-1.3) mg/dL AST (14-36) U/L ALT (4-34) U/L Alkaline Phosphatase (38-126) U/L Ammonia (<30) umol/L Lactate Dehydrogenase (120-246) U/L Troponin I 0.025 (0.000-0.034) ng/mL Total Protein (6.3-8.2) g/dL Albumin (3.5-5.0) g/dL Urine Color Urine Appearance (Clear) Urine pH (5.0-8.0) Ur Specific [place] (1.001-1.035) Urine Protein (Negative) Urine Glucose (UA) (Negative) Urine Ketones (Negative) Urine Blood (Negative) Urine Nitrite (Negative) Urine Bilirubin (Negative) Urine Urobilinogen (<2.0) mg/dL Ur Leukocyte Esterase (Negative) Urine RBC (0-5) /hpf Urine WBC (0-5) /hpf Urine WBC Clumps (None) /hpf Urine Bacteria (None) /hpf Serum Alcohol mg/dL 02/19/23 02/19/23 02/19/23 Range/Units 01:34 04:31 07:20 WBC (3.8-10.6) k/uL RBC (3.80-5.40) m/uL Hgb (11.4-16.0) gm/dL Hct (34.0-46.0) % MCV (80.0-100.0) fL MCH (25.0-35.0) pg MCHC (31.0-37.0) g/dL RDW (11.5-15.5) % Plt Count (150-450) k/uL MPV Neutrophils % (Manual) % Band Neuts % (Manual) % Lymphocytes % (Manual) % Monocytes % (Manual) % Eosinophils % (Manual) % Metamyelocytes % % Myelocytes % % Neutrophils # (Manual) (1.3-7.7) k/uL Lymphocytes # (Manual) (1.0-4.8) k/uL Monocytes # (Manual) (0-1.0) k/uL Eosinophils # (Manual) (0-0.7) k/uL Metamyelocytes # (Man) (0) k/uL Myelocytes # (Manual) (0) k/uL Nucleated RBCs (0-0) /100 WBC Manual Slide Review Large Platelets RBC Morphology Sodium (137-145) mmol/L Potassium (3.5-5.1) mmol/L Chloride (98-107) mmol/L Carbon Dioxide (22-30) mmol/L Anion Gap mmol/L BUN (7-17) mg/dL Creatinine (0.52-1.04) mg/dL Est GFR (CKD-EPI) (>=60) Est GFR (CKD-EPI)AfAm (>60 ml/min/1.73 sqM) Est GFR (CKD-EPI)NonAf (>60 ml/min/1.73 sqM) BUN/Creatinine Ratio (12.00-20.00) Ratio Glucose (74-99) mg/dL Lactic Ac Sepsis Rflx Y Y Plasma Lactic Acid [place] 3.0 H* (0.7-2.0) mmol/L Calcium (8.4-10.2) mg/dL Magnesium (1.6-2.3) mg/dL Total Bilirubin (0.2-1.3) mg/dL AST (14-36) U/L ALT (4-34) U/L Alkaline Phosphatase (38-126) U/L Ammonia (<30) umol/L Lactate Dehydrogenase (120-246) U/L Troponin I (0.000-0.034) ng/mL Total Protein (6.3-8.2) g/dL Albumin (3.5-5.0) g/dL Urine Color Urine Appearance (Clear) Urine pH (5.0-8.0) Ur Specific [place] (1.001-1.035) Urine Protein (Negative) Urine Glucose (UA) (Negative) Urine Ketones (Negative) Urine Blood (Negative) Urine Nitrite (Negative) Urine Bilirubin (Negative) Urine Urobilinogen (<2.0) mg/dL Ur Leukocyte Esterase (Negative) Urine RBC (0-5) /hpf Urine WBC (0-5) /hpf Urine WBC Clumps (None) /hpf Urine Bacteria (None) /hpf Serum Alcohol mg/dL 02/19/23 02/19/23 02/19/23 Range/Units 07:54 10:45 10:45 WBC (3.8-10.6) k/uL RBC (3.80-5.40) m/uL Hgb (11.4-16.0) gm/dL Hct (34.0-46.0) % MCV (80.0-100.0) fL MCH (25.0-35.0) pg MCHC (31.0-37.0) g/dL RDW (11.5-15.5) % Plt Count (150-450) k/uL MPV Neutrophils % (Manual) % Band Neuts % (Manual) % Lymphocytes % (Manual) % Monocytes % (Manual) % Eosinophils % (Manual) % Metamyelocytes % % Myelocytes % % Neutrophils # (Manual) (1.3-7.7) k/uL Lymphocytes # (Manual) (1.0-4.8) k/uL Monocytes # (Manual) (0-1.0) k/uL Eosinophils # (Manual) (0-0.7) k/uL Metamyelocytes # (Man) (0) k/uL Myelocytes # (Manual) (0) k/uL Nucleated RBCs (0-0) /100 WBC Manual Slide Review Large Platelets RBC Morphology Sodium 139 (137-145) mmol/L Potassium 3.8 (3.5-5.1) mmol/L Chloride 112 H (98-107) mmol/L Carbon Dioxide 16 L (22-30) mmol/L Anion Gap 11 mmol/L BUN 28 H (7-17) mg/dL Creatinine 1.37 H (0.52-1.04) mg/dL Est GFR (CKD-EPI) (>=60) Est GFR (CKD-EPI)AfAm 52 (>60 ml/min/1.73 sqM) Est GFR (CKD-EPI)NonAf 46 (>60 ml/min/1.73 sqM) BUN/Creatinine Ratio (12.00-20.00) Ratio Glucose 91 (74-99) mg/dL Lactic Ac Sepsis Rflx Plasma Lactic Acid Miguel [place] 1.5 (0.7-2.0) mmol/L Calcium 7.6 L (8.4-10.2) mg/dL Magnesium 1.9 (1.6-2.3) mg/dL Total Bilirubin (0.2-1.3) mg/dL AST (14-36) U/L ALT (4-34) U/L Alkaline Phosphatase (38-126) U/L Ammonia (<30) umol/L Lactate Dehydrogenase 301 H (120-246) U/L Troponin I (0.000-0.034) ng/mL Total Protein (6.3-8.2) g/dL Albumin (3.5-5.0) g/dL Urine Color Colorless Urine Appearance Cloudy H (Clear) Urine pH 5.5 (5.0-8.0) Ur Specific [place] 1.005 (1.001-1.035) Urine Protein Trace H (Negative) Urine Glucose (UA) Negative (Negative) Urine Ketones Negative (Negative) Urine Blood Moderate H (Negative) Urine Nitrite Negative (Negative) Urine Bilirubin Negative (Negative) Urine Urobilinogen <2.0 (<2.0) mg/dL Ur Leukocyte Esterase Large H (Negative) Urine RBC 1 (0-5) /hpf Urine WBC 48 H (0-5) /hpf Urine WBC Clumps Moderate H (None) /hpf Urine Bacteria Occasional H (None) /hpf Serum Alcohol mg/dL 02/20/23 02/21/23 Range/Units 04:08 05:30 WBC (3.8-10.6) k/uL RBC (3.80-5.40) m/uL Hgb (11.4-16.0) gm/dL Hct (34.0-46.0) % MCV (80.0-100.0) fL MCH (25.0-35.0) pg MCHC (31.0-37.0) g/dL RDW (11.5-15.5) % Plt Count (150-450) k/uL MPV Neutrophils % (Manual) % Band Neuts % (Manual) % Lymphocytes % (Manual) % Monocytes % (Manual) % Eosinophils % (Manual) % Metamyelocytes % % Myelocytes % % Neutrophils # (Manual) (1.3-7.7) k/uL Lymphocytes # (Manual) (1.0-4.8) k/uL Monocytes # (Manual) (0-1.0) k/uL Eosinophils # (Manual) (0-0.7) k/uL Metamyelocytes # (Man) (0) k/uL Myelocytes # (Manual) (0) k/uL Nucleated RBCs (0-0) /100 WBC Manual Slide Review Large Platelets RBC Morphology Sodium 137 141 (137-145) mmol/L Potassium 3.2 L 3.6 (3.5-5.1) mmol/L Chloride 105 103 (98-107) mmol/L Carbon Dioxide 25 28.6 (22-30) mmol/L Anion Gap 7 9.40 mmol/L BUN 15 9.2 (7-17) mg/dL Creatinine 0.99 0.8 (0.52-1.04) mg/dL Est GFR (CKD-EPI) 90 (>=60) Est GFR (CKD-EPI)AfAm 78 (>60 ml/min/1.73 sqM) Est GFR (CKD-EPI)NonAf 67 (>60 ml/min/1.73 sqM) BUN/Creatinine Ratio 11.50 L (12.00-20.00) Ratio Glucose 91 73 (74-99) mg/dL Lactic Ac Sepsis Rflx Plasma Lactic Acid Miguel Angel (0.7-2.0) mmol/L Calcium 7.7 L 8.0 L (8.4-10.2) mg/dL Magnesium 1.6 1.9 (1.6-2.3) mg/dL Total Bilirubin (0.2-1.3) mg/dL AST (14-36) U/L ALT (4-34) U/L Alkaline Phosphatase (38-126) U/L Ammonia (<30) umol/L Lactate Dehydrogenase (120-246) U/L Troponin I (0.000-0.034) ng/mL Total Protein (6.3-8.2) g/dL Albumin (3.5-5.0) g/dL Urine Color Urine Appearance (Clear) Urine pH (5.0-8.0) Ur Specific [place] (1.001-1.035) Urine Protein (Negative) Urine Glucose (UA) (Negative) Urine Ketones (Negative) Urine Blood (Negative) Urine Nitrite (Negative) Urine Bilirubin (Negative) Urine Urobilinogen (<2.0) mg/dL Ur Leukocyte Esterase (Negative) Urine RBC (0-5) /hpf Urine WBC (0-5) /hpf Urine WBC Clumps (None) /hpf Urine Bacteria (None) /hpf Serum Alcohol mg/dL Disposition Clinical Impression: Acute metabolic encephalopathy, COPD exacerbation, Dehydration, Sepsis Disposition: ADMITTED IP TO THIS HOSP Condition: Good
[2023-02-18 19:17] LABS: HCT 42.7 % (34.0-46.0); HGB 13.9 gm/dL (11.4-16.0); MCH 31.8 pg (25.0-35.0); MCHC 32.4 g/dL (31.0-37.0); Mean Platelet Volume 9.1; Platelet Count 256 k/uL (150-450); RBC 4.36 m/uL (3.80-5.40); RDW 13.3 % (11.5-15.5); WBC 27.5 k/uL (3.8-10.6)
--- NOTE | 2023-02-18 19:29 | CT ---
EXAMINATION TYPE: CT brain wo con CT DLP: 1147.0 mGycm, Automated exposure control for dose reduction was used. DATE OF EXAM: 02/18/2023 7:17 PM COMPARISON: 07/09/2022. CLINICAL INDICATION:Female, 47 years old with history of slurred speech/weakness 3 days, AMS, slurred speech and weakness x 3 days. TECHNIQUE: Brain: Axial CT images of the brain were obtained with coronal and sagittal reformats created and rev iewed. Contrast used: None. Oral contrast used: None. FINDINGS: Brain: Extra-axial spaces: No abnormal extra-axial fluid collections. Ventricular system: Within normal limits Cerebral parenchyma: No acute intraparenchymal hemorrhage or mass effect. The richey-white junction is well differentiated. Cerebellum: Unremarkable. Mass effect: No evidence of midline shift. Intracranial vasculature: unremarkable Soft tissues: Normal. Calvarium/osseous structures: No depressed skull fracture. Paranasal sinuses and mastoid air cells: Mild scattered paranasal sinus disease. Visualized orbits: Orbital contents are intact. IMPRESSION: No acute intracranial process.
[2023-02-18 19:32] LABS: ALT 31 U/L (4-34); AST 49 U/L (14-36); African American GFR (CKD) 34 (>60 ml/min/1.73 sqM); Albumin 2.7 g/dL (3.5-5.0); Alcohol <10 mg/dL; Alkaline Phosphatase 371 U/L (38-126); Anion Gap 16 mmol/L; Blood Urea Nitrogen 40 mg/dL (7-17); Calcium 8.4 mg/dL (8.4-10.2); Carbon Dioxide 18 mmol/L (22-30); Chloride 98 mmol/L (98-107); Glucose 125 mg/dL (74-99); Magnesium 2.3 mg/dL (1.6-2.3); Non-African American GFR(CKD) 29 (>60 ml/min/1.73 sqM); Potassium 3.9 mmol/L (3.5-5.1); Sodium 132 mmol/L (137-145); Total Bilirubin 1.2 mg/dL (0.2-1.3); Total Protein 5.7 g/dL (6.3-8.2)
[2023-02-18 19:57] LABS: Band Neutrophils % 2 %; Eosinophils # (M) 0.28 k/uL (0-0.7); Lymphocytes # (M) 2.48 k/uL (1.0-4.8); Metamyelocytes # (M) 0.55 k/uL (0); Metamyelocytes % 2 %; Monocytes # (M) 1.65 k/uL (0-1.0); Myelocytes # (M) 0.55 k/uL (0); Myelocytes % 2 %; Neutrophils % (M) 80 %; Nucleated Red Blood Cells 0 /100 WBC (0-0); Total Cells Counted 200
[2023-02-18 19:58] LABS: Large Platelets Present; RBC Morphology Normal
[2023-02-18 19:59] LABS: Lactic Acid, Venous 2.6 mmol/L (0.7-2.0)
[2023-02-18] MEDS ORDERED: SODIUM CHLORIDE 0.9% 1,000 ML IV ONE (20:15)
[2023-02-18] MEDS ORDERED: SODIUM CHLORIDE 0.9% 1,000 ML IV STA (20:15)
--- NOTE | 2023-02-18 20:21 | XR ---
EXAMINATION TYPE: XR chest 2V DATE OF EXAM: 02/18/2023 8:00 PM CLINICAL INDICATION:Female, 47 years old with history of weakness; [facility] COMPARISON: Chest radiographs from 07/09/2022 TECHNIQUE: XR chest 2V Frontal and lateral views of the chest. FINDINGS: Lungs/Pleura: Prominent interstitial lung markings are seen scattered throughout the lungs. No eviden ce of focal consolidation, pneumothorax or pleural effusion. Pulmonary vascularity: Unremarkable. Heart/mediastinum: Cardiomediastinal silhouette is prominent in size. Musculoskeletal: No acute osseous pathology. Other findings: None IMPRESSION: No acute cardiopulmonary disease/process. Interstitial lung disease changes not significantly changed from prior.
[2023-02-18] MEDS ORDERED: NALOXONE 0.4 MG/ML 1 ML VIAL IV PRN (23:59)
[2023-02-19] MEDS: SODIUM CHLORIDE 0.9% 1,000 ML IV SCH ×2 (01:36→17:40)
[2023-02-19] MEDS: ACETAMINOPHEN TAB 325 MG TAB PO PRN ×4 (02:19→21:55)
[2023-02-19 08:30] LABS: Appearance,Urine Cloudy (Clear); Bacteria,Urine Occasional /hpf; Bilirubin,Urine Negative (Negative); Blood,Urine Moderate (Negative); Color,Urine Colorless; Glucose,Urine (UA) Negative (Negative); Ketones,Urine Negative (Negative); Leukocyte Esterase,Urine Large (Negative); Nitrite,Urine Negative (Negative); PH, Urine 5.5 (5.0-8.0); Protein,Urine Trace (Negative); RBC,Urine 1 /hpf (0-5); Specific Gravity,Urine 1.005 (1.001-1.035); Urobilinogen,Urine <2.0 mg/dL (<2.0); WBC,Urine 48 /hpf (0-5)
[2023-02-19] MEDS ORDERED: FAMOTIDINE 20 MG TAB PO SCH (09:00)
--- NOTE | 2023-02-19 11:00 | CT ---
EXAMINATION TYPE: CT abdomen wo con CT DLP: 201.30 mGycm, Automated exposure control for dose reduction was used. DATE OF EXAM: 02/19/2023 8:30 AM COMPARISON: No prior CT. Ultrasound abdomen 05/21/2022. Chest x-ray 02/18/2023 and before CLINICAL INDICATION:Female, 47 years old with history of elevated white blood cell count; elevated wh ite blood cell count. no contrast TECHNIQUE: Axial CT of the abdomen . Sagittal and coronal reformats were created on a separate works tation. Contrast used: mL of , (none if empty) Oral contrast used: without Oral Contrast (none if empty) FINDINGS: Exam is limited without contrast. Also the exam is limited to the abdomen. LOWER CHEST: Lung bases show bilaterally increased interstitial lung markings, likely chronic changes compared to prior studies. Heart size upper normal. Heart size upper normal. Partially seen coronary calcifications. ABDOMEN LIVER: Appears enlarged, the right lobe is 21.8 cm in craniocaudal dimension. Otherwise unremarkable unenhanced appearance. GALLBLADDER AND BILE DUCTS: Some isoattenuating to slightly hyperattenuating gallstones are seen. No gallbladder distention or inflammatory changes. No suggestion of biliary dilatation. PANCREAS: Unremarkable. SPLEEN: Not definitely identified, correlate with surgical history. ADRENAL GLANDS: Unremarkable. KIDNEYS AND URETERS: Couple small calcifications in the right renal hilum, likely vascular. No defini te renal/ureteral calculi or hydronephrosis. STOMACH AND BOWEL: Postoperative changes at the GE junction and stomach may be from gastric sleeve. S mall bowel does not appear dilated, no evidence of obstruction. The appendix appears within normal li mits. Mild to moderate colonic stool, mostly on the right, with no focal acute abnormality. PERITONEUM/RETROPERITONEUM: No evidence of pneumoperitoneum or free fluid. VASCULATURE: Moderate atherosclerotic calcification without evidence of aortic aneurysm. MUSCULOSKELETAL: No acute osseous abnormalities. Mild degenerative changes. LYMPH NODES: No gross evidence for lymphadenopathy. SOFT TISSUE/ABDOMINAL WALL: Umbilical region hernia measures 3.4 cm craniocaudal with a 1.3 cm neck. Hernia is 2.4 x 2.4 cm AP and transverse. Farther superiorly anteriorly at the level of the liver, th ere are small lobular opacities, likely partially calcified, in the anterior abdominal wall soft tiss ues; this could be sequela of previous surgery and/or herniorrhaphy.. IMPRESSION: 1. Limited unenhanced study shows no definite acute process in the abdomen. 2. Hepatomegaly. 3. Cholelithiasis. 4. Other chronic and likely incidental findings as above.
[2023-02-19 11:25] LABS: African American GFR (CKD) 52 (>60 ml/min/1.73 sqM); Anion Gap 11 mmol/L; Blood Urea Nitrogen 28 mg/dL (7-17); Calcium 7.6 mg/dL (8.4-10.2); Carbon Dioxide 16 mmol/L (22-30); Chloride 112 mmol/L (98-107); Glucose 91 mg/dL (74-99); LDH 301 U/L (120-246); Magnesium 1.9 mg/dL (1.6-2.3); Non-African American GFR(CKD) 46 (>60 ml/min/1.73 sqM); Potassium 3.8 mmol/L (3.5-5.1); Sodium 139 mmol/L (137-145)
--- NOTE | 2023-02-19 12:02 | P.NPCON ---
History of Present Illness - Reason for Consult acute renal failure - History of Present Illness Reason for consultation: Acute kidney injury History of present illness: Patient is a 47-year-old female seen in consultation for acute kidney injury. Patient's creatinine on admission was 1.97 and is down to 1.37 today. Patient's baseline creatinine is near 0.5 from June 2022. Patient came to the hospital due to altered mental status and disorientation per family members. Patient also complaining of bilateral flank pain. Patient has a history of MS. She is currently receiving normal saline. She denies vomiting or diarrhea. Appetite has been decreased last few days. No fever or chills. No hematuria or dysuria. She does admit to taking Motrin 600 mg 2-3 times daily. I don't see any diuret ics and her home medication list. Blood pressure noted to be as low as 72/49 this admission. This morning's blood pressure was 110/76. She did receive a liter bolus of normal saline in the ER. Denies history of diabetes. Denies history of coronary artery disease. Denies family history of renal disease. Vital signs are stable. General: No acute distress. HEENT: Head exam unremarkable. LUNGS: No audible rhonchi or wheezes. HEART: Rate and Rhythm are regular. ABDOMEN: Mild generalized tenderness. EXTREMITITES: No edema. Past Medical History Past Medical History: Asthma, COPD, CVA/TIA, GERD/Reflux, Hypertension, Musculoskeletal Disorder, Neurologic Disorder, Sleep Apnea/CPAP/BIPAP, Thyroid Disorder Additional Past Medical History / Comment(s): smoking-related interstitial lung disease, doesn't use CPAP, history of seizure at the age of 16 related to med. to stop breast milk, endometriosis, chronic back pain, plantar fasciitis, hx. of Achilles tendinitis, probably antibiotic induced. She also has history of hypothyroidism, ALLERGIC rhinitis, migraines, uses oxygen 2L prn, recent iron infusion, MS , tia 2020 no residual issues, needs cholecystetomy, tinnitus, balance issues, History of Any Multi-Drug Resistant Organisms: None Reported Past Surgical History: Bariatric Surgery, Hysterectomy, Tubal Ligation, Uterine Ablation Additional Past Surgical History / Comment(s): LEEP PROCEDURE X 2, EGD, BACK INJECTIONS FOR PAIN. The patient has also undergone thoracic/thoracoscopic wedge biopsy of the right lung. 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 (Heaviest smoking amount was 3/4 pack/day). Pt started smoking again 2020 Past Drug Use History: None Reported - Past Family History Sister(s) Family Medical History: Cancer Mother Family Medical History: Cancer Additional Family Medical History / Comment(s): breast cancer Father Family Medical History: COPD, CVA/TIA, Myocardial Infarction ([place]) Additional Family Medical History / Comment(s): HEART PROBLEMS, AT AGE 64 Medications and Allergies Home Medications Medication Instructions Recorded Confirmed Type Levothyroxine Sodium [Synthroid] 50 mcg PO DAILY 01/05/14 01/07/23 History ALPRAZolam [Xanax] 1 mg PO TID PRN 11/24/17 01/07/23 History Albuterol Nebulized [Ventolin 2.5 mg INHALATION RT-QID PRN 05/28/18 01/07/23 His tory Nebulized] Multivitamins, Thera [Multivitamin 1 tab PO DAILY 05/28/18 01/07/23 History (formulary)] Pantoprazole Sodium [Protonix] 40 mg PO DAILY 05/28/18 01/07/23 History Vitamin A [Vitamin A (8,000 Units 8,000 unit PO DAILY 12/19/19 01/07/23 History = 2,400 MCG)] Cyclobenzaprine [Flexeril] 10 mg PO HS 10/29/20 01/07/23 History Metoprolol Succinate (ER) [Toprol 12.5 mg PO DAILY 10/29/20 01/07/23 History XL] Meclizine [Antivert] 12.5 mg PO BID PRN 01/23/21 01/07/23 History buPROPion HCL [Wellbutrin XL] 150 mg PO BID 01/23/21 01/07/23 History Albuterol Inhaler [Ventolin Hfa 2 puff INHALATION RT-QID PRN 08/21/21 01/07/23 History Inhaler] Atogepant [Qulipta] 60 mg PO DAILY 08/21/21 01/07/23 History Ubrogepant [Ubrelvy] 100 mg PO DAILY PRN 08/21/21 01/07/23 History Pravastatin Sodium [Pravachol] 20 mg PO DAILY 01/03/22 01/07/23 History Aspirin 81 mg PO DAILY 02/12/22 01/07/23 History Gabapentin [Neurontin] 400 mg PO TID 02/12/22 01/07/23 History Ofatumumab [Kesimpta Pen] 20 mg SQ Q30D 02/12/22 01/07/23 History Famotidine 40 mg PO HS 02/19/22 01/07/23 History Fluticasone/Umeclidin/Vilanter 1 puff INHALATION RT-DAILY 02/19/22 01/07/23 History [Trelegy Ellipta 100-62.5-25] HYDROcodone/APAP 10-325MG [[place] 1 tab PO TID PRN 02/19/22 01/07/23 History 10-325] Vit D(Unk) 1 tab PO DAILY 01/07/23 01/07/23 History Allergies Allergy/AdvReac Type Severity Reaction Status Date / Time bee venom protein (honey bee) Allergy SWELLING , Verified 02/18/23 18:12 AND ITCHING nitrofurantoin Allergy Rash/Hives Verified 02/18/23 18:12 [From Macrobid] nitrofurantoin Allergy Rash/Hives Verified 02/18/23 18:12 macrocrystalline [From Macrobid] Bleach (Sodium Hypochlorite) AdvReac Unknown Verified 02/18/23 18:12 moxifloxacin [From Avelox] AdvReac Nausea & Verified 02/18/23 18:12 Vomiting NSAIDS (Non-Steroidal AdvReac Unknown Verified 02/18/23 18:12 Anti-Inflamma seasonal allergies Allergy Unknown Uncoded 02/18/23 18:12 Physical Exam Vitals: Vital Signs Temp Pulse Pulse Resp BP BP Pulse Ox 02/19/23 07:00 98.5 F 104 H 16 110/76 94 L 02/19/23 02:51 18 02/19/23 01:25 98.0 F 106 H 18 137/85 96 02/19/23 00:56 95 18 118/78 97 02/18/23 23:40 98.4 F 96 18 90/77 97 02/18/23 22:25 98.5 F 92 16 90/65 96 02/18/23 22:00 109/62 02/18/23 20:35 93 18 100/61 97 02/18/23 18:05 97.8 F 82 18 72/49 92 L Intake and Output 02/18/23 02/19/23 02/19/23 22:59 06:59 14:59 Intake Total 360 Balance 360 Intake: Oral 360 Other: Voiding Method Toilet # Voids 1 Weight 61.235 kg 61.235 kg Results - Lab Results Most recent lab results Calcium 7.6 mg/dL (8.4-10.2) L 02/19/23 10:45 Magnesium 1.9 mg/dL (1.6-2.3) 02/19/23 10:45 02/18/23 18:55 02/19/23 10:45 Assessment and Plan Plan: Assessment: 1. Acute kidney injury secondary to vasomotor nephropathy from hypotension, hypovolemia and NSAIDs. Creatinine 1.97 on admission and is 1.37 today. Baseline creatinine near 0.5 from June 2022. No hydronephrosis noted on CT. 2. Metabolic acidosis secondary to acute kidney injury and lactic acidosis. Improved. 3. UTI and antibiotics. 4. History of MS. Plan: Change IV fluids to isotonic bicarbonate drip to be run at 80 mL an hour. Check urine culture. Follow-up cultures. Avoid nephrotoxins. Continue to monitor renal function and urine output. Thank you for the consultation. I will continue to follow the patient during her hospital stay.
[2023-02-19] MEDS: DEXTROSE 5% IN WATER 1,000 ML with SODIUM BICARB (1 MEQ/ML) 150 ML IV SCH (13:49)
[2023-02-19] MEDS ORDERED: ALBUTEROL NEBULIZED 2.5 MG/3 ML INHALATION PRN (14:40)
--- NOTE | 2023-02-19 18:35 | PN ---
PROGRESS NOTE DATE OF SERVICE: 02/19/2023 CHIEF COMPLAINT: Syncope, confusion, mental status changes, and MS. HISTORY OF PRESENT ILLNESS: This lady is a little bit more awake and alert. She denies headache, focal neurologic deficits, chest pain, shortness of breath, etc. PHYSICAL EXAMINATION: VITAL SIGNS: Now normal. GENERAL: She is awake and alert. CHEST: Clear. CARDIAC: Normal. ABDOMEN: Soft, nontender. IMPRESSION: 1. Syncopal episode with dizziness and weakness. 2. Multiple sclerosis. 3. Acute kidney injury. 4. Electrolyte imbalance. 5. Hypotension. PLAN: Continue with IV fluids and continue to follow her laboratory studies and white blood cell count. MMODL / IJN: [id number] /
--- NOTE | 2023-02-19 22:56 | HP ---
HISTORY AND PHYSICAL CHIEF COMPLAINT: Lethargy, weakness, dizziness, confusion, and falling after syncopal episode. HISTORY OF PRESENT ILLNESS: This is the first known admission for this 47-year-old patient, who has multiple sclerosis. She apparently was brought to the emergency room with altered mental status. In the emergency room, her blood pressure was low at 72/49 with a pulse of 96. Sodium was 132 with a potassium of 3.9. Chloride was 98, and CO2 was 18. She had a slightly elevated AST, and alkaline phosphatase was elevated at 371. BUN was 40 with a creatinine of 1.97, wherein she normally has had normal renal function. Past medical history, family history, and personal and social histories reveal that she is on: 1. Protonix. 2. Bupropion. 3. Levothyroxine. 4. Prednisone in the past for her multiple sclerosis. 5. Xanax 1 mg. 6. Metoprolol 25 mg. 7. Gabapentin 600 mg q.i.d. 8. Trileptal 60 mg once a day. 9. Vicodin. 10.Symbicort. 11.Flexeril. 12.Albuterol. 13.Kesimpta once a month. 14.Pravastatin. 15.Aspirin. 16.Ubrelvy. 17.Zyrtec. She does smoke and is a social drinker. PHYSICAL EXAMINATION: VITAL SIGNS: Blood pressure 72/49 with a pulse of 96. GENERAL: She appeared to be well developed and well nourished. She was lethargic and confused. HEAD, EARS, EYES, NOSE, MOUTH, AND THROAT: Normal. CHEST: Clear. CARDIAC: Normal. ABDOMEN: Soft and nontender. EXTREMITIES: Normal. IMPRESSION: 1. Acute mental status changes with dizziness and syncope. 2. Multiple sclerosis. 3. Leukocytosis of 27,500. 4. Hypotension. PLAN: 1. Bedrest. 2. IV fluids. 3. Frequent monitoring of her neurologic status and vital signs. 4. Monitoring of her electrolytes and renal function. MMODL / IJN: [id number] /
[2023-02-20] MEDS: ACETAMINOPHEN TAB 325 MG TAB PO PRN ×3 (03:17→18:30)
[2023-02-20 04:44] LABS: African American GFR (CKD) 78 (>60 ml/min/1.73 sqM); Anion Gap 7 mmol/L; Blood Urea Nitrogen 15 mg/dL (7-17); Calcium 7.7 mg/dL (8.4-10.2); Carbon Dioxide 25 mmol/L (22-30); Chloride 105 mmol/L (98-107); Glucose 91 mg/dL (74-99); Magnesium 1.6 mg/dL (1.6-2.3); Non-African American GFR(CKD) 67 (>60 ml/min/1.73 sqM); Potassium 3.2 mmol/L (3.5-5.1); Sodium 137 mmol/L (137-145)
[2023-02-20] MEDS: DEXTROSE 5% IN WATER 1,000 ML with SODIUM BICARB (1 MEQ/ML) 150 ML IV SCH (06:34)
[2023-02-20] MEDS: FAMOTIDINE 20 MG TAB PO SCH (09:00)
[2023-02-20] MEDS: PANTOPRAZOLE 40 MG TABLET PO SCH (09:00)
[2023-02-20 09:14] VITALS: RESP 16
[2023-02-20] MEDS ORDERED: POTASSIUM CHLORIDE ER 20 MEQ TAB.ER PO STA (12:21)
--- NOTE | 2023-02-20 12:22 | P.PN ---
Subjective Patient is seen in follow-up for acute kidney injury. Renal function improved. No vomiting or diarrhea today. Blood pressure stable. Has been voiding. Vital signs are stable. General: No acute distress. HEENT: Head exam is unremarkable. LUNGS: No audible rhonchi or wheezes. HEART: Rate and Rhythm are regular. ABDOMEN: Nontender. EXTREMITITES: No edema. Objective - Vital Signs Vital signs: Vital Signs Temp 98.9 F 02/20/23 07:00 Pulse 103 H 02/20/23 07:00 Resp 16 02/20/23 07:00 BP 121/82 02/20/23 07:00 Pulse Ox 98 02/20/23 07:00 FiO2 Intake & Output 02/19/23 02/20/23 02/20/23 19:59 06:59 18:59 Intake Total 240 Balance 240 Intake: Intake, IV Titration Amount Sodium Chloride 0.9% 1, 000 ml @ 130 mls/hr IV . Q7H42M STA Rx#:[id number] Sodium Chloride 0.9% 1, 000 ml @ 999 mls/hr IV . Q1H1M ONE Rx#:[id number] cefTRIAXone 1 gm In Sodium Chloride 0.9% 50 ml @ 100 mls/hr IVPB Q24HR YOLANDA Rx#:[id number] Oral 240 Other: Voiding Method # Voids - Labs CBC & Chem 7: 02/18/23 18:55 02/20/23 04:08 Labs: Abnormal Lab Results - Last 24 Hours (Table) 02/20/23 Range/Units 04:08 Potassium 3.2 L (3.5-5.1) mmol/L Calcium 7.7 L (8.4-10.2) mg/dL Microbiology - Last 24 Hours (Table) 02/18/23 20:53 Blood Culture Gram Stain - Preliminary Blood 02/18/23 20:59 Blood Culture Gram Stain - Preliminary Blood Assessment and Plan Plan: Assessment: 1. Acute kidney injury secondary to vasomotor nephropathy from hypotension, hypovolemia and NSAIDs. Creatinine 1.97 on admission and is 0.99 today. Baseline creatinine near 0.5 from June 2022. No hydronephrosis noted on CT. 2. Metabolic acidosis secondary to acute kidney injury and lactic acidosis. Improved. 3. UTI and antibiotics. Blood cultures positive for gram-negative bacilli. 4. History of MS. 5. Hypokalemia from intracellular shifting from IV bicarb. 6. Hypomagnesemia from poor intake. Plan: Change bicarb drip to normal saline. Follow-up cultures. Replace potassium and magnesium. Avoid nephrotoxins. Continue to monitor renal function and urine output.
[2023-02-20] MEDS: SODIUM CHLORIDE 0.9% 1,000 ML IV SCH (13:07)
[2023-02-20] MEDS: MAGNESIUM SULFATE-D5W PMX 1 GM in DEXTROSE/WATER 1 100ML.BAG IVPB SCH ×2 (13:07→15:42)
--- NOTE | 2023-02-20 19:19 | PN ---
PROGRESS NOTE DATE OF SERVICE: 02/20/2023 CHIEF COMPLAINT: Acute kidney injury. HISTORY OF PRESENT ILLNESS: This lady is doing better. Renal function is improving. She is not nauseated. She denies chest pain, shortness of breath, or abdominal pain. PHYSICAL EXAMINATION: CHEST: Clear. CARDIAC: Normal. ABDOMEN: Soft and nontender. IMPRESSION: 1. Acute kidney injury. 2. Dehydration. 3. Multiple sclerosis. 4. Hypotension. 5. Chronic kidney disease. PLAN: Increase activity and probably discharge tomorrow. MMODL / IJN: [id number] /
[2023-02-21] MEDS: ACETAMINOPHEN TAB 325 MG TAB PO PRN ×2 (01:00→08:37)
[2023-02-21 08:13] VITALS: BP 157/83; PULSE 94; TEMP 98.5
[2023-02-21] MEDS: SODIUM CHLORIDE 0.9% 1,000 ML IV SCH (08:38)
[2023-02-21] MEDS: FAMOTIDINE 20 MG TAB PO SCH (08:38)
[2023-02-21] MEDS: PANTOPRAZOLE 40 MG TABLET PO SCH (08:38)
[2023-02-21 08:47] LABS: Blood Urea Nitrogen 9.2 mg/dL (9.0-27.0); Carbon Dioxide 28.6 mmol/L (21.6-31.8); Chloride 103 mmol/L (96-109); Glucose 73 mg/dL (70-110); Magnesium 1.9 mg/dL (1.5-2.4); Potassium 3.6 mmol/L (3.5-5.5); Sodium 141 mmol/L (135-145)
--- NOTE | 2023-02-21 13:13 | P.PN ---
Subjective Patient is seen for follow-up for acute kidney injury. Renal function improved with creatinine down to 0.8 mg/dL. No significant complaints today. Maintained on IV fluids. Objective - Vital Signs Vital signs: Vital Signs Temp 98.5 F 02/21/23 07:00 Pulse 94 02/21/23 07:00 Resp 16 02/21/23 07:00 BP 157/83 02/21/23 07:00 Pulse Ox 97 02/21/23 07:00 FiO2 Intake & Output 02/20/23 02/21/23 02/21/23 18:59 06:59 18:59 Intake Total 480 240 Balance 480 240 Intake: Oral 480 240 Other: # Voids 1 1 # Bowel Movements 1 - Exam Patient is awake, comfortable, no acute distress Examination of the heart S1 and S2 Examination the lungs bilateral breath sounds are heard Abdomen is soft nontender Examination lower extremity shows no evidence of edema. - Labs CBC & Chem 7: 02/18/23 18:55 02/21/23 05:30 Labs: Abnormal Lab Results - Last 24 Hours (Table) 02/21/23 Range/Units 05:30 BUN/Creatinine Ratio 11.50 L (12.00-20.00) Ratio Calcium 8.0 L (8.7-10.3) mg/dL Microbiology - Last 24 Hours (Table) 02/19/23 07:54 Urine Culture - Final Urine,Voided 02/18/23 20:53 Blood Culture Gram Stain - Preliminary Blood Blood Culture - Preliminary Gram Neg Bacilli 02/18/23 20:59 Blood Culture Gram Stain - Preliminary Blood Blood Culture - Preliminary Gram Neg Bacilli Assessment and Plan Assessment: 1. Acute kidney injury secondary to vasomotor nephropathy from hypotension, hypovolemia and NSAIDs. Creatinine 1.97 on admission and is 0.8 today. Baseline creatinine near 0.5 from June 2022. No hydronephrosis noted on CT. 2. Metabolic acidosis secondary to acute kidney injury and lactic acidosis. I mproved. 3. UTI and antibiotics. Blood cultures positive for gram-negative bacilli. 4. History of MS. 5. Hypokalemia from intracellular shifting from IV bicarb. Improved 6. Hypomagnesemia from poor intake. Plan: Continue to encourage increased oral intake.
--- NOTE | 2023-02-23 14:34 | DS ---
DISCHARGE SUMMARY CHIEF COMPLAINT: Weakness, syncope. HISTORY OF PRESENT ILLNESS AND PHYSICAL EXAMINATION: Details of this lady's history and physical can be found in the initial workup. LABORATORY STUDIES: While she is in the hospital, she had laboratory studies, details of which can be found in the laboratory section of her chart. COURSE IN THE HOSPITAL: After admission, she was placed on bedrest, started on intravenous fluids and vital signs, rhythm and kidney function were monitored. Initially, she was weak and slightly nauseated, but then she slowly begins to improve. Appetite improved. Her activity increased and it was felt that she could return home on February 21 on her usual activity, diet, and medication and her workup will continue as an outpatient. FINAL DIAGNOSES: 1. Syncope. 2. Dehydration. 3. Acute kidney injury. 4. Multiple sclerosis. OPERATIONS: None. CONSULTATION: None. CONDITION: She is improved. GINGER / LINDA: [id number] /
== END 2023-02-21 12:30 | disposition home health service (06) | DRG 682 ==
LOC: EC 17:41 → 6NMEDSUR 02-19 → OBSVTOIN 02-21 10:07
PROVIDERS: ADMIT Family Medicine; ATTEND Family Medicine
DX: N17.0 Acute kidney failure with tubular necrosis (principal); G93.41 Metabolic encephalopathy; E87.20 Acidosis, unspecified; J84.9 Interstitial pulmonary disease, unspecified; N39.0 Urinary tract infection, site not specified; J44.1 Chronic obstructive pulmonary disease with (acute) exacerbation; R55 Syncope and collapse; E03.9 Hypothyroidism, unspecified; Z79.890 Hormone replacement therapy; J45.909 Unspecified asthma, uncomplicated; I10 Essential (primary) hypertension; E86.1 Hypovolemia; I95.9 Hypotension, unspecified; T39.395A Adverse effect of other nonsteroidal anti-inflammatory drugs [NSAID], initial encounter; Z86.73 Personal history of transient ischemic attack (TIA), and cerebral infarction without residual deficits; G35 Multiple sclerosis; Z90.49 Acquired absence of other specified parts of digestive tract; G43.909 Migraine, unspecified, not intractable, without status migrainosus; E87.6 Hypokalemia; X58.XXXA Exposure to other specified factors, initial encounter; Z88.8 Allergy status to other drugs, medicaments and biological substances; I12.9 Hypertensive chronic kidney disease with stage 1 through stage 4 chronic kidney disease, or unspecified chronic kidney disease; E83.42 Hypomagnesemia; E86.0 Dehydration; B96.20 Unspecified Escherichia coli [E. coli] as the cause of diseases classified elsewhere; F17.210 Nicotine dependence, cigarettes, uncomplicated; Z91.030 Bee allergy status; N18.9 Chronic kidney disease, unspecified; Z79.82 Long term (current) use of aspirin; Z79.899 Other long term (current) drug therapy; Z80.3 Family history of malignant neoplasm of breast; Z82.49 Family history of ischemic heart disease and other diseases of the circulatory system; Z90.710 Acquired absence of both cervix and uterus; Z90.81 Acquired absence of spleen; Z88.6 Allergy status to analgesic agent
CPT/HCPCS: 36415; 70450; 71046; 74150; 80048; 80053; 80320; 81001; 82140; 83605; 83615; 83735; 84484; 85025; 87040; 87077; 87086; 87186; 93005; 96361; 96365; 99291

== ENCOUNTER → 2023-05-03 | Outpatient (CLI) | payer BC, MEDICARE, OTHER ==
--- NOTE | 2023-05-03 15:34 | MM ---
Reason for Exam: Screening (asymptomatic). Last mammogram was performed 1 year(s) and 7 month(s) ago. Patient History: Menarche at age 11. First Full-Term at age 14. Left ovary removed at age 47. Right ovary removed at age 47. Hysterectomy at age 47. Postmenopausal. Paternal aunt had breast cancer, age 55. Maternal cousin had breast cancer, age 45. Mother had breast cancer, age 69. Risk Values: Cassie 5 year model risk: 1.8%. NCI Lifetime model risk: 16.0%. Prior Study Comparison: 11/21/2017 Bilateral Screening Mammogram, [facility]. 09/22/2021 Bilateral MG screening mammo w CAD, [facility]. 09/29/2021 Right MG 3D work up w/cad RT, [facility]. Tissue Density: There are scattered fibroglandular densities. Findings: Analyzed By CAD. There is no suspicious group of microcalcifications or new suspicious mass. Overall Assessment: Negative, BI-RAD 1 Management: Screening Mammogram of both breasts in [address] [facility] will attempt to contact patient to return for supplemental views and ultrasound if indicated. Patient should continue monthly self-breast exams. A clinical breast exam by your physician is recommended on an annual basis. This exam should not preclude additional follow-up of suspicious palpable abnormalities. Note on Cassie scores and lifetime risk: 1. A Cassie score greater than 3% is considered moderate risk. If this is the case, consider specialist referral to assess eligibility for a risk reducing agent. 2. If overall lifetime risk for the development of breast cancer is 20% or higher, the patient may qualify for future screening with alternating mammogram and breast MRI. Electronically signed and approved by: Joaquin Hernandez DO
== END | disposition home or self-care (01) ==
LOC: RADMAMWWP 13:54
PROVIDERS: ATTEND Family Medicine
DX: Z12.31 Encounter for screening mammogram for malignant neoplasm of breast (principal); Z80.3 Family history of malignant neoplasm of breast; Z78.0 Asymptomatic menopausal state
CPT/HCPCS: 77063; 77067

== ENCOUNTER → 2023-05-09 | Outpatient (CLI) | payer BC, MEDICARE, OTHER ==
--- NOTE | 2023-05-09 12:04 | CT ---
EXAMINATION TYPE: CT abdomen pelvis w con DATE OF EXAM: 05/09/2023 COMPARISON: 02/19/2023 INDICATION: RUQ pain DLP: 362.6 mGycm, Automated exposure control for dose reduction was used. CONTRAST: 100 ml mL of Isovue 300. Study performed with Oral Contrast TECHNIQUE: Axial images were obtained from above the diaphragm to the pubic rami in the axial plane a t 5 mm thick sections. Reconstructed images are reviewed on the computer in the coronal plane. FINDINGS: Limited CT sections are obtained the lung bases. The lung bases are clear. Gastroesophageal reflux is evident contrast within the esophagus. CT ABDOMEN: Liver: Normal Spleen: Not identified. Pancreas: Normal Adrenal glands: The adrenal glands are normal. Gallbladder: Normal Kidneys: No masses are evident. No hydronephrosis is present. No cysts are present. Delayed images were obtained through the kidneys, which remain unremarkable. Aorta: Vascular calcification is within the aorta. Inferior vena cava: Normal. CT PELVIS: Loops of bowel within the abdomen and pelvis are normal. There are loops of bowel which are incom pletely distended or lack oral contrast limiting their evaluation. Appendix: Normal as visualized. Urinary bladder: Normal. Genitourinary structures: Uterus and ovaries are not identified. Osseous structures: No suspicious lytic or sclerotic lesions. IMPRESSION: 1. Gastroesophageal reflux. 2. No suspicious abnormality account for right upper quadrant pain malaise evident
--- NOTE | 2023-05-09 15:36 | US ---
EXAMINATION TYPE: US gallbladder DATE OF EXAM: 05/09/2023 COMPARISON: Correlation CT same day and ultrasound 05/21/2022 CLINICAL INDICATION: Female, 48 years old with history of R10.11 RT UPPER QUADRANT PAIN; Hx gastric b ypass 2018. Pain x 6 months. TECHNIQUE: Multiple sonographic images of the right upper quadrant are obtained. FINDINGS: EXAM MEASUREMENTS: Liver Length: 17.5 cm Gallbladder Wall: 0.21 cm CBD: 0.92 cm Right Kidney: 11.2 x 4.4 x 4.5 cm PLASTERER TENDER NOTES: Limited due to gas. Pancreas: Tail was not well seen. Liver: Measures upper limits. Gallbladder: *Enlarged measuring 11.1 cm in length. Echogenic material seen within: 3.0 x 2.0 x 1.3 cm. Evidence for sonographic Farrell's sign: No CBD: Dilated (versus 1.1 cm on 05/21/2022) Right Kidney: Prominent renal pelvis. Anechoic area seen upper pole: 1.6 x 1.4 x 1.2 cm. IMPRESSION: 1. Hydropic gallbladder with a tumefactive sludge ball measuring 3.0 cm. No sonographic Farrell's sign , wall thickening, or surrounding fluid. 2. Chronic dilatation of the bile duct currently measuring 9 mm versus 1.1 cm back on 05/21/2022. Corre late with alkaline phosphatase and bilirubin levels. 3. Right renal cortical cyst measuring 1.6 cm.
== END | disposition home or self-care (01) ==
LOC: RADUSWWP 09:16
PROVIDERS: ATTEND Family Medicine
DX: N28.1 Cyst of kidney, acquired (principal); K82.8 Other specified diseases of gallbladder; K83.8 Other specified diseases of biliary tract
CPT/HCPCS: 76705; 74177; 36415; Q9967

== ENCOUNTER 2023-05-15 18:09 | Emergency (ER) | payer BC, OTHER ==
[2023-05-15 18:50] VITALS: RESP 16; TEMP 98.2
--- NOTE | 2023-05-15 20:38 | ED ---
Extremity Problem HPI - General Source: patient Mode of arrival: ambulatory Limitations: no limitations <Mundo Nunn - Last Filed: 05/15/23 20:38> <Linsey Stoddard - Last Filed: 05/16/23 10:40> - General Chief complaint: Extremity Problem,Nontraumatic Stated complaint: left hip pain; back pain - History of Present Illness Initial comments: 48-year-old female with a past medical history significant for chronic back pain presenting to the ED with a chief complaint of back pain. Patient notes pain is chronic in nature. Denies any new injury or trauma. States that she typically sees Dr. Levine to manage pain and is prescribed [place], a muscle relaxer, and gabapentin however despite this still notes continued pain prompted presentation to the ED for further evaluation. Denies incontinence or saddle anesthesia. (Mundo Nunn) 48-year-old female presents to the emergency department for evaluation of low b ack pain into her left hip. She does report a history of chronic back pain and follows with her neurologist for this. She reports annual MRIs. She states that the pain is similar in character but worse for the past 3 days. She denies any new injury. She states that the pain is worse with walking. She does have [place], muscle relaxer and gabapentin at home. She states that she took those today but continues to have pain. She denies loss of bowel or bladder function, urinary retention, saddle anesthesia, recent fever. (Linsey Stoddard) - Related Data Home Medications Medication Instructions Recorded Confirmed Levothyroxine Sodium [Synthroid] 50 mcg PO DAILY 01/05/14 02/19/23 ALPRAZolam [Xanax] 1 mg PO TID PRN 11/24/17 02/19/23 Pantoprazole Sodium [Protonix] 40 mg PO DAILY 05/28/18 02/19/23 Cyclobenzaprine [Flexeril] 10 - 20 mg PO BID PRN 10/29/20 02/19/23 Metoprolol Succinate (ER) [Toprol 12.5 mg PO DAILY 10/29/20 02/19/23 XL] buPROPion HCL [Wellbutrin XL] 150 mg PO BID 01/23/21 02/19/23 Atogepant [Qulipta] 60 mg PO DAILY PRN 08/21/21 02/19/23 Pravastatin Sodium [Pravachol] 20 mg PO DAILY 01/03/22 02/19/23 Ofatumumab [Kesimpta Pen] 20 mg SQ Q30D 02/12/22 02/19/23 HYDROcodone/APAP 10-325MG [Kingsland 1 tab PO TID PRN 02/19/22 02/19/23 10-325] Albuterol Sulfate [Albuterol 2 puff PO RT-Q6H PRN 02/19/23 02/19/23 Sulfate Hfa] Buta/APAP/Caf/Cod 05-404-57-30 1 cap PO BID PRN 02/19/23 02/19/23 [Fioricet w/Cod 29-354-91-30MG] Celecoxib [CeleBREX] 100 mg PO BID 02/19/23 02/19/23 Gabapentin [Neurontin] 400 mg PO TID 02/19/23 02/19/23 Ipratropium-Albuterol Nebulize 3 ml INHALATION RT-QID PRN 02/19/23 02/19/23 [Duoneb 0.5 mg-3 mg/3 ml Soln] Naloxone HCl [Narcan] 4 mg NASAL DIRECTED PRN 02/19/23 02/19/23 Previous Rx's Medication Instructions Recorded Famotidine [Pepcid] 20 mg PO DAILY #30 tab 02/21/23 Lidocaine 5% Patch [Lidoderm 5% 1 patch TOPICAL DAILY #30 patch 05/15/23 Patch] Allergies Allergy/AdvReac Type Severity Reaction Status Date / Time bee venom protein (honey bee) Allergy SWELLING , Verified 05/15/23 18:31 AND ITCHING nitrofurantoin Allergy Rash/Hives Verified 05/15/23 18:31 [From Macrobid] nitrofurantoin Allergy Rash/Hives Verified 05/15/23 18:31 macrocrystalline [From Macrobid] Bleach (Sodium Hypochlorite) AdvReac Unknown Verified 05/15/23 18:31 moxifloxacin [From Avelox] AdvReac Nausea & Verified 05/15/23 18:31 Vomiting NSAIDS (Non-Steroidal AdvReac Unknown Verified 05/15/23 18:31 Anti-Inflamma seasonal allergies Allergy Unknown Uncoded 01/28/24 18:31 Review of Systems ROS Other: All systems not noted in ROS Statement are negative. <Mundo Nunn - Last Filed: 05/15/23 20:38> ROS Other: All systems not noted in ROS Statement are negative. <Linsey Stoddard - Last Filed: 05/16/23 10:40> ROS Statement: Those systems with pertinent positive or pertinent negative responses have been documented in the HPI. Past Medical History Past Medical History: Asthma, COPD, CVA/TIA, GERD/Reflux, Hypertension, Musculoskeletal Disorder, Neurologic Disorder, Sleep Apnea/CPAP/BIPAP, Thyroid Disorder Additional Past Medical History / Comment(s): smoking-related interstitial lung disease, doesn't use CPAP, history of seizure at the age of 16 related to med. to stop breast milk, endometriosis, chronic back pain, plantar fasciitis, hx. of Achilles tendinitis, probably antibiotic induced. She also has history of hypothyroidism, ALLERGIC rhinitis, migraines, uses oxygen 2L prn, recent iron infusion, MS , tia 2020 no residual issues, needs cholecystetomy, tinnitus, balance issues, History of Any Multi-Drug Resistant Organisms: None Reported Past Surgical History: Bariatric Surgery, Hysterectomy, Tubal Ligation, Uterine Ablation Additional Past Surgical History / Comment(s): LEEP PROCEDURE X 2, EGD, BACK INJECTIONS FOR PAIN. The patient has also undergone thoracic/thoracoscopic wedge biopsy of the right lung. 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; R and Y bypass at [facility] 2019,TRACHEOTOMY-RESOLVED Past Anesthesia/Blood Transfusion Reactions: Motion Sickness Additional Past Anesthesia/Blood Transfusion Reaction / Comment(s): no problem w/blood transfusion Past Psychological History: Anxiety, Depression Smoking Status: Current every day smoker Past Alcohol Use History: None Reported Past Drug Use History: None Reported - Past Family History Sister(s) Family Medical History: Cancer Mother Family Medical History: Cancer Additional Family Medical History / Comment(s): breast cancer Father Family Medical History: COPD, CVA/TIA, Myocardial Infarction ([place]) Additional Family Medical History / Comment(s): HEART PROBLEMS, AT AGE 64 <Mundo Nunn - Last Filed: 05/15/23 20:38> General Exam Limitations: no limitations <Mundo Nunn - Last Filed: 05/15/23 20:38> Limitations: no limitations General appearance: alert, in no apparent distress Head exam: Present: atraumatic, normocephalic, normal inspection Eye exam: Present: normal appearance, PERRL, EOMI. Absent: scleral icterus, conjunctival injection, periorbital swelling ENT exam: Present: normal exam, mucous membranes moist Neck exam: Present: normal inspection. Absent: tenderness, meningismus, lymphadenopathy Respiratory exam: Present: normal lung sounds bilaterally. Absent: respiratory distress, wheezes, rales, rhonchi, stridor Cardiovascular Exam: Present: regular rate, normal rhythm, normal heart sounds. Absent: systolic murmur, diastolic murmur, rubs, gallop, clicks Extremities exam: Present: normal inspection, full ROM, normal capillary refill, other (DP and PT pulses 2+). Absent: tenderness, pedal edema, joint swelling, calf tenderness Back exam: Present: normal inspection, full ROM, other (Strength 5 out of 5 in bilateral lower extremities). Absent: tenderness Neurological exam: Present: alert, oriented X3 Psychiatric exam: Present: normal affect, normal mood Skin exam: Present: warm, dry, intact, normal color. Absent: rash <Linsey Stoddard - Last Filed: 05/16/23 10:40> - General Exam Comments Initial Comments: Visual Physical Exam Vital signs reviewed General: Well-appearing, nontoxic, no acute distress. Head: Normocephalic, atraumatic Eyes: PERRLA, EOMI ENT: Airway patent Chest: Nonlabored breathing Skin: No visual rash, normal skin tone Neuro: Alert and oriented 3 Musculoskeletal: No gross abnormalities (Mundo Nunn) Course Vital Signs 05/15/23 05/15/23 18:28 22:11 Temperature 98.2 F Pulse Rate 107 H 72 Respiratory 16 16 Rate Blood Pressure 145/83 123/74 O2 Sat by Pulse 98 98 Oximetry Medical Decision Making <Mundo Nunn - Last Filed: 05/15/23 20:38> <Linsey Stoddard - Last Filed: 05/16/23 10:40> - Medical Decision Making Quicknote portion performed. Signed Mundo Nunn PA-C (Mundo Nunn) Was pt. sent in by a medical professional or institution ([facility], UPH[employer]ER HELPER, urgent care, hospital, or detention...) When possible be specific @ -No Did you speak to anyone other than the patient for history (EMS, parent, family, police, friend...)? What history was obtained from this source @ -No Did you review nursing and triage notes (agree or disagree)? Why? @ -I reviewed and agree with nursing and triage notes Were old charts reviewed (outside hosp., previous admission, EMS record, old EKG, old radiological studies, urgent care reports/EKG's, detention records)? Report findings @ -No old charts were reviewed Differential Diagnosis (chest pain, altered mental status, abdominal pain women, abdominal pain men, vaginal bleeding, weakness, fever, dyspnea, syncope, headache, dizziness, GI bleed, back pain, seizure, CVA, palpatations, mental health, musculoskeletal)? @ -Differential Musculoskeletal Muscular strain, contusion, ligament sprain, fracture, arthritis, septic arthritis, bursitis, cellulitis, muscle spasm, nerve compression, DVT, arterial occlusion, herpes zoster, electrolyte abnormality, tumor.... This is not meant to be in all inclusive list EKG interpreted by me (3pts min.). @ -None X-rays interpreted by me (1pt min.). @ -None done CT interpreted by me (1pt min.). @ -None done U/S interpreted by me (1pt. min.). @ -None done What testing was considered but not performed or refused? (CT, X-rays, U/S, labs)? Why? @ -X-rays considered, patient has had no new injury, no red flag symptoms, and this is a chronic issue for her What meds were considered but not given or refused? Why? @ -None Did you discuss the management of the patient with other professionals (professionals i.e. , PA, UPHOLSTERER HELPER, lab, RT, psych nurse, social human services assistants, coal carrier, teacher, contracting officer, rn case manager)? Give summary @ -No Was smoking cessation discussed for >3mins.? @ -No Was critical care preformed (if so, how long)? @ -No Were there social determinants of health that impacted care today? How? (Homelessness, low income, unemployed, alcoholism, drug addiction, transportation, low edu. Level, literacy, decrease access to med. care, custodial, rehab)? @ -No Was there de-escalation of care discussed even if they declined (Discuss DNR or withdrawal of care, Hospice)? DNR status @ -No What co-morbidities impacted this encounter? (DM, HTN, Smoking, COPD, CAD, Cancer, CVA, ARF, Chemo, Hep., AIDS, mental health diagnosis, sleep apnea, morbid obesity)? @ -None Was patient admitted / discharged? Hospital course, mention meds given and route, prescriptions, significant lab abnormalities, going to OR and other pertinent info. @ -Discharge. Patient presented to the emergency department for evaluation of low back and left hip pain which is chronic in nature. She denies any new injury or trauma. No red flag symptoms at this time including loss of bowel or bladder function, saddle anesthesia, fever, chills. Patient provided pain control in the emergency department including a dose of 0.5 mg IM Dilaudid, Solu-Medrol, lidocaine patch. Prescription sent to patient's pharmacy for lidocaine patches. Advised to follow-up with her neurologist. Patient understanding agreeable with plan. Patient stable at time of discharge. Case discussed with Dr. Harper. Undiagnosed new problem with uncertain prognosis? @ -No Drug Therapy requiring intensive monitoring for toxicity (Heparin, Nitro, Insulin, Cardizem)? @ -No Were any procedures done? @ -No Diagnosis/symptom? @ -Low back pain Acute, or Chronic, or Acute on Chronic? @ -Chronic Uncomplicated (without systemic symptoms) or Complicated (systemic symptoms)? @ -Uncomplicated Side effects of treatment? @ -No Exacerbation, Progression, or Severe Exacerbation? @ -No Poses a threat to life or bodily function? How? (Chest pain, [place], PA, pneumonia, PE, COPD, DKA, ARF, appy, cholecystitis, CVA, Diverticulitis, Homicidal, Suicidal, threat to staff... and all critical care pts) @ -No (Linsey Stoddard) Disposition <Mundo Nunn - Last Filed: 05/15/23 20:38> Is patient prescribed a controlled substance at d/c from ED?: No <Linsey Stoddard - Last Filed: 05/16/23 10:40> Clinical Impression: Mechanical back pain Disposition: HOME SELF-CARE Condition: Stable Instructions (If sedation given, give patient instructions): Acute Low Back Pain (ED) Additional Instructions: Please follow up with your neurologist. Utilize lidocaine patches. Return to the emergency department for new or worsening symptoms. Prescriptions: Lidocaine 5% Patch [Lidoderm 5% Patch] 1 patch TOPICAL DAILY #30 patch Referrals: Keven Kebede MD [Primary Care Provider] - 1-2 days
[2023-05-15] MEDS ORDERED: HYDROmorphone 0.5 MG/0.5 ML SYRINGE IM STA (22:30)
[2023-05-15] MEDS ORDERED: LIDOCAINE 4% PATCH TOPICAL ONE (22:30)
[2023-05-15] MEDS ORDERED: methylPREDNISolone SOD SUCCI 125 MG/2 ML VIAL IM ONE (22:31)
[2023-05-15 22:48] VITALS: BP 123/74; PULSE 72
== END 2023-05-15 23:03 | disposition home or self-care (01) ==
LOC: EC 18:09
DX: M54.50 Low back pain, unspecified (principal); J44.89 Other specified chronic obstructive pulmonary disease; I10 Essential (primary) hypertension; G47.30 Sleep apnea, unspecified; F41.9 Anxiety disorder, unspecified; F32.A Depression, unspecified; E07.9 Disorder of thyroid, unspecified; K21.9 Gastro-esophageal reflux disease without esophagitis; F17.200 Nicotine dependence, unspecified, uncomplicated; Z79.890 Hormone replacement therapy; Z79.899 Other long term (current) drug therapy; Z91.030 Bee allergy status; Z88.6 Allergy status to analgesic agent; Z88.8 Allergy status to other drugs, medicaments and biological substances; Z88.1 Allergy status to other antibiotic agents
CPT/HCPCS: 99283; 96372 ×2; J2930; J1170

== ENCOUNTER 2023-06-30 20:52 | Emergency (ER) | payer BC, OTHER ==
--- NOTE | 2023-06-30 21:17 | ED ---
Abdominal Pain HPI - General Source: patient, RN notes reviewed Mode of arrival: ambulatory Limitations: no limitations <Sangeetha Shields - Last Filed: 06/30/23 21:16> - General Source: RN notes reviewed, old records reviewed Mode of arrival: ambulatory Limitations: no limitations - History of Present Illness MD Complaint: abdominal pain -: month(s) Location: RUQ Radiation: RUQ Migration to: RUQ Severity: moderate Severity scale (1-10): 5 Quality: stabbing, aching Consistency: constant Improves With: nothing Worsens With: nothing Associated Symptoms: nausea, vomiting Treatments Prior to Arrival: other (0) <Ganesh Sylvester - Last Filed: 07/07/23 23:09> - General Chief Complaint: Abdominal Pain Stated Complaint: Abd pain Time Seen by Provider: 06/30/23 21:16 - History of Present Illness Initial Comments: Quick note: Patient is a 48-year-old female presented to the ER with a chief complaint of right upper quadrant pain. Patient states she has known gallbladder problems. She states she has been experiencing fevers, chills, nausea and vomiting for the past day. (Sangeetha Shields) This 48-year-old female to the ER for evaluation of gallbladder disease. Patient has known gallbladder history, who she sees Dr. Kebede for. She is scheduled to see a general surgeon but has been unable to meet follow-up. Patient did have prior abdominal surgery and gastric sleeve (Ganesh Sylvester) - Related Data Home Medications Medication Instructions Recorded Confirmed Levothyroxine Sodium [Synthroid] 50 mcg PO DAILY 01/05/14 02/19/23 ALPRAZolam [Xanax] 1 mg PO TID PRN 11/24/17 02/19/23 Pantoprazole Sodium [Protonix] 40 mg PO DAILY 05/28/18 02/19/23 Cyclobenzaprine [Flexeril] 10 - 20 mg PO BID PRN 10/29/20 02/19/23 Metoprolol Succinate (ER) [Toprol 12.5 mg PO DAILY 10/29/20 02/19/23 XL] buPROPion HCL [Wellbutrin XL] 150 mg PO BID 01/23/21 02/19/23 Atogepant [Qulipta] 60 mg PO DAILY PRN 08/21/21 02/19/23 Pravastatin Sodium [Pravachol] 20 mg PO DAILY 01/03/22 02/19/23 Ofatumumab [Kesimpta Pen] 20 mg SQ Q30D 02/12/22 02/19/23 HYDROcodone/APAP 10-325MG [[place] 1 tab PO TID PRN 02/19/22 02/19/23 10-325] Albuterol Sulfate [Albuterol 2 puff PO RT-Q6H PRN 02/19/23 02/19/23 Sulfate Hfa] Buta/APAP/Caf/Cod 21-600-47-30 1 cap PO BID PRN 02/19/23 02/19/23 [Fioricet w/Cod 42-403-87-30MG] Celecoxib [CeleBREX] 100 mg PO BID 02/19/23 02/19/23 Gabapentin [Neurontin] 400 mg PO TID 02/19/23 02/19/23 Ipratropium-Albuterol Nebulize 3 ml INHALATION RT-QID PRN 02/19/23 02/19/23 [Duoneb 0.5 mg-3 mg/3 ml Soln] Naloxone HCl [Narcan] 4 mg NASAL DIRECTED PRN 02/19/23 02/19/23 Previous Rx's Medication Instructions Recorded Famotidine [Pepcid] 20 mg PO DAILY #30 tab 02/21/23 Lidocaine 5% Patch [Lidoderm 5% 1 patch TOPICAL DAILY #30 patch 05/15/23 Patch] Allergies Allergy/AdvReac Type Severity Reaction Status Date / Time bee venom protein (honey bee) Allergy SWELLING , Verified 06/30/23 21:14 AND ITCHING nitrofurantoin Allergy Rash/Hives Verified 06/30/23 21:14 [From Macrobid] nitrofurantoin Allergy Rash/Hives Verified 06/30/23 21:14 macrocrystalline [From Macrobid] Bleach (Sodium Hypochlorite) AdvReac Unknown Verified 06/30/23 21:14 moxifloxacin [From Avelox] AdvReac Nausea & Verified 06/30/23 21:14 Vomiting NSAIDS (Non-Steroidal AdvReac Unknown Verified 06/30/23 21:14 Anti-Inflamma seasonal allergies Allergy Unknown Uncoded 06/30/23 21:14 Review of Systems ROS Other: All systems not noted in ROS Statement are negative. <Sangeetha Shields - Last Filed: 06/30/23 21:16> ROS Other: All systems not noted in ROS Statement are negative. <Ganesh Sylvester - Last Filed: 07/07/23 23:09> ROS Statement: Those systems with pertinent positive or pertinent negative responses have been documented in the HPI. Past Medical History Past Medical History: Asthma, COPD, CVA/TIA, GERD/Reflux, Hypertension, Musculoskeletal Disorder, Neurologic Disorder, Sleep Apnea/CPAP/BIPAP, Thyroid Disorder Additional Past Medical History / Comment(s): smoking-related interstitial lung disease, doesn't use CPAP, history of seizure at the age of 16 related to med. to stop breast milk, endometriosis, chronic back pain, plantar fasciitis, hx. of Achilles tendinitis, probably antibiotic induced. She also has history of hypothyroidism, ALLERGIC rhinitis, migraines, uses oxygen 2L prn, recent iron infusion, MS , tia 2020 no residual issues, needs cholecystetomy, tinnitus, balance issues, History of Any Multi-Drug Resistant Organisms: None Reported Past Surgical History: Bariatric Surgery, Hysterectomy, Tubal Ligation, Uterine Ablation Additional Past Surgical History / Comment(s): LEEP PROCEDURE X 2, EGD, BACK INJECTIONS FOR PAIN. The patient has also undergone thoracic/thoracoscopic wedge biopsy of the right lung. 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; R and Y bypass at [facility] 2019,TRACHEOTOMY-RESOLVED Past Anesthesia/Blood Transfusion Reactions: Motion Sickness Additional Past Anesthesia/Blood Transfusion Reaction / Comment(s): no problem w/blood transfusion Past Psychological History: Anxiety, Depression Smoking Status: Current every day smoker Past Alcohol Use History: None Reported Past Drug Use History: None Reported - Past Family History Sister(s) Family Medical History: Cancer Mother Family Medical History: Cancer Additional Family Medical History / Comment(s): breast cancer Father Family Medical History: COPD, CVA/TIA, Myocardial Infarction (CT) Additional Family Medical History / Comment(s): HEART PROBLEMS, AT AGE 64 <Sangeetha Shields - Last Filed: 06/30/23 21:16> General Exam Limitations: no limitations <Sangeetha Shields - Last Filed: 06/30/23 21:16> General appearance: alert, in no apparent distress Head exam: Present: atraumatic, normocephalic, normal inspection Eye exam: Present: normal appearance, PERRL, EOMI. Absent: scleral icterus, conjunctival injection, periorbital swelling ENT exam: Present: normal exam, mucous membranes moist Neck exam: Present: normal inspection. Absent: tenderness, meningismus, lymphadenopathy Respiratory exam: Present: normal lung sounds bilaterally. Absent: respiratory distress, wheezes, rales, rhonchi, stridor Cardiovascular Exam: Present: regular rate, normal rhythm, normal heart sounds. Absent: systolic murmur, diastolic murmur, rubs, gallop, clicks GI/Abdominal exam: Present: soft, normal bowel sounds. Absent: distended, tenderness, guarding, rebound, rigid Extremities exam: Present: normal inspection, full ROM, normal capillary refill. Absent: tenderness, pedal edema, joint swelling, calf tenderness Back exam: Present: normal inspection Neurological exam: Present: alert, oriented X3, CN II-XII intact Psychiatric exam: Present: normal affect, normal mood Skin exam: Present: warm, dry, intact, normal color. Absent: rash <Ganesh Sylvester - Last Filed: 07/07/23 23:09> - General Exam Comments Initial Comments: Visual Physical Exam Vital signs reviewed General: Well-appearing, nontoxic, no acute distress. Head: Normocephalic, atraumatic Eyes: PERRLA, EOMI ENT: Airway patent Chest: Nonlabored breathing Skin: No visual rash, normal skin tone Neuro: Alert and oriented 3 Musculoskeletal: No gross abnormalities (Sangeetha Shields) Course <Ganesh Sylvester - Last Filed: 07/07/23 23:09> Vital Signs 06/30/23 07/01/23 21:09 01:27 Temperature 98.6 F 98.7 F Pulse Rate 102 H 79 Respiratory 22 18 Rate Blood Pressure 157/96 153/95 O2 Sat by Pulse 98 97 Oximetry - Reevaluation(s) Reevaluation #1: 06/30/23 23:53 Medical records reviewed (Ganesh Sylvester) Reevaluation #2: 06/30/23 23:53 Patient symptoms unchanged (Ganesh Sylvester) Reevaluation #3: 06/30/23 23:53 Patient informed of results and questions answered (GoldieguilhermemoralesGanesh Candie) Reevaluation #4: Was pt. sent in by a medical professional or institution (BECKY Jiménez, INSTRUCTOR BUSINESS EDUCATION, urgent care, hospital, or [facility]...) When possible be specific @ -no Did you speak to anyone other than the patient for history (EMS, parent, family, police, friend...)? What history was obtained from this source @ -no Did you review nursing and triage notes (agree or disagree)? Why? @ -agree Are old charts reviewed (outside hosp., previous admission, EMS record, old EKG, old radiological studies, urgent care reports/EKG's, [facility] records)? Report findings @ -yes Differential Diagnosis (chest pain, altered mental status, abdominal pain women, abdominal pain men, vaginal bleeding, weakness, fever, dyspnea, syncope, headache, dizziness, GI bleed, back pain, seizure, CVA, palpatations, mental health, musculoskeletal)? @ -prior EKG interpreted by me (3pts min.). @ -yes X-rays interpreted by me (1pt min.). @ -no CT interpreted by me (1pt min.). @ -no U/S interpreted by me (1pt. min.). @ -yes negative for acute disease What testing was considered but not performed or refused? (CT, X-rays, U/S, labs )? Why? @ -none What meds were considered but not given or refused? Why? @ -none Did you discuss the management of the patient with other professionals (professionals i.e. BECKY Jiménez, [employer], lab, RT, psych nurse, social media strategist, lvn lpn, teacher, radio division officer, case operator)? Give summary @ -no Was smoking cessation discussed for >3mins.? @ -no Was critical care preformed (if so, how long)? @ -no Were there social determinants of health that impacted care today? How? (Homelessness, low income, unemployed, alcoholism, drug addiction, transportation, low edu. Level, literacy, decrease access to med. care, fdc, rehab)? @ -none Was there de-escalation of care discussed even if they declined (Discuss DNR or withdrawal of care, Hospice)? DNR status @ -no What co-morbidities impacted this encounter? (DM, HTN, Smoking, COPD, CAD, Cancer, CVA, ARF, Chemo, Hep., AIDS, mental health diagnosis, sleep apnea, morbid obesity)? @ -none Was patient admitted / discharged? Hospital course, mention meds given and route, prescriptions, significant lab abnormalities, going to OR and other pertinent info. @ - 48 female to ER for evaluation today. Patient presents today for evaluation regards to abdominal pain. Please she is having gallbladder disease but has no significant findings on ultrasound. Patient feels improved here in the ER and can be discharged home patient will follow-up with primary care Discharge Undiagnosed new problem with uncertain prognosis? @ -no Drug Therapy requiring intensive monitoring for toxicity (Heparin, Nitro, Insulin, Cardizem)? @ -no Were any procedures done? @ -no Diagnosis/symptom? @ -Abdominal pain Acute, or Chronic, or Acute on Chronic? @ -Acute Uncomplicated (without systemic symptoms) or Complicated (systemic symptoms)? @ -Complicated Side effects of treatment? @ -no Exacerbation, Progression, or Severe Exacerbation? @ -exacerbation Poses a threat to life or bodily function? How? (Chest pain, USA, CT, pneumonia, PE, COPD, DKA, ARF, appy, cholecystitis, CVA, Diverticulitis, Homicidal, Suicidal, threat to staff... and all critical care pts) @ -no8 (Ganesh Sylvester) Reevaluation #5: No differential abdominal pain limited (Ganesh Sylvester) Medical Decision Making <Sangeetha Shields - Last Filed: 06/30/23 21:16> - Lab Data Result diagrams: 06/30/23 21:56 06/30/23 21:56 - EKG Data -: EKG Interpreted by Me (EKG is sinus 75 NH 134 QRS 113 QTc 398) - Radiology Data Radiology results: report reviewed (Ultrasound gallbladder negative for acute disease), image reviewed <Ganesh Sylvester - Last Filed: 07/07/23 23:09> - Medical Decision Making I performed the quick note portion of this chart. Electronically signed by Sangeetha Shields PA-C (Sangeetha Shields) 48 female to ER for evaluation today. Patient presents today for evaluation regards to abdominal pain. Please she is having gallbladder disease but has no significant findings on ultrasound. Patient feels improved here in the ER and can be discharged home patient will follow-up with primary care (Ganesh Sylvester) - Lab Data Lab Results 06/30/23 06/30/23 06/30/23 Range/Units 21:56 21:56 21:56 WBC 15.9 H (3.8-10.6) k/uL RBC 4.92 (3.80-5.40) m/uL Hgb 15.3 (11.4-16.0) gm/dL Hct 47.0 H (34.0-46.0) % MCV 95.6 (80.0-100.0) fL MCH 31.1 (25.0-35.0) pg MCHC 32.5 (31.0-37.0) g/dL RDW 13.7 (11.5-15.5) % Plt Count 579 H (150-450) k/uL MPV 7.7 Neutrophils % 63 % Lymphocytes % 24 % Monocytes % 6 % Eosinophils % 4 % Basophils % 1 % Neutrophils # 10.0 H (1.3-7.7) k/uL Lymphocytes # 3.8 (1.0-4.8) k/uL Monocytes # 1.0 (0-1.0) k/uL Eosinophils # 0.7 (0-0.7) k/uL Basophils # 0.1 (0-0.2) k/uL Sodium 138 (137-145) mmol/L Potassium 4.7 (3.5-5.1) mmol/L Chloride 104 (98-107) mmol/L Carbon Dioxide 28 (22-30) mmol/L Anion Gap 6 mmol/L BUN 22 H (7-17) mg/dL Creatinine 0.73 (0.52-1.04) mg/dL Est GFR (CKD-EPI)AfAm >90 (>60 ml/min/1.73 sqM) Est GFR (CKD-EPI)NonAf >90 (>60 ml/min/1.73 sqM) Glucose 126 H (74-99) mg/dL Plasma Lactic Acid Miguel Angel 1.4 (0.7-2.0) mmol/L Calcium 9.3 (8.4-10.2) mg/dL Total Bilirubin 0.5 (0.2-1.3) mg/dL AST 49 H (14-36) U/L ALT 27 (4-34) U/L Alkaline Phosphatase 115 (38-126) U/L Total Protein 7.1 (6.3-8.2) g/dL Albumin 4.0 (3.5-5.0) g/dL Amylase 76 (30-110) U/L Lipase 68 (23-300) U/L Urine Color Urine Appearance (Clear) Urine pH (5.0-8.0) Ur Specific Lorida (1.001-1.035) Urine Protein (Negative) Urine Glucose (UA) (Negative) Urine Ketones (Negative) Urine Blood (Negative) Urine Nitrite (Negative) Urine Bilirubin (Negative) Urine Urobilinogen (<2.0) mg/dL Ur Leukocyte Esterase (Negative) 06/30/23 Range/Units 23:52 WBC (3.8-10.6) k/uL RBC (3.80-5.40) m/uL Hgb (11.4-16.0) gm/dL Hct (34.0-46.0) % MCV (80.0-100.0) fL MCH (25.0-35.0) pg MCHC (31.0-37.0) g/dL RDW (11.5-15.5) % Plt Count (150-450) k/uL MPV Neutrophils % % Lymphocytes % % Monocytes % % Eosinophils % % Basophils % % Neutrophils # (1.3-7.7) k/uL Lymphocytes # (1.0-4.8) k/uL Monocytes # (0-1.0) k/uL Eosinophils # (0-0.7) k/uL Basophils # (0-0.2) k/uL Sodium (137-145) mmol/L Potassium (3.5-5.1) mmol/L Chloride (98-107) mmol/L Carbon Dioxide (22-30) mmol/L Anion Gap mmol/L BUN (7-17) mg/dL Creatinine (0.52-1.04) mg/dL Est GFR (CKD-EPI)AfAm (>60 ml/min/1.73 sqM) Est GFR (CKD-EPI)NonAf (>60 ml/min/1.73 sqM) Glucose (74-99) mg/dL Plasma Lactic Acid Miguel Angel (0.7-2.0) mmol/L Calcium (8.4-10.2) mg/dL Total Bilirubin (0.2-1.3) mg/dL AST (14-36) U/L ALT (4-34) U/L Alkaline Phosphatase (38-126) U/L Total Protein (6.3-8.2) g/dL Albumin (3.5-5.0) g/dL Amylase (30-110) U/L Lipase (23-300) U/L Urine Color Colorless Urine Appearance Clear (Clear) Urine pH 6.5 (5.0-8.0) Ur Specific Lorida 1.005 (1.001-1.035) Urine Protein Negative (Negative) Urine Glucose (UA) Negative (Negative) Urine Ketones Negative (Negative) Urine Blood Negative (Negative) Urine Nitrite Negative (Negative) Urine Bilirubin Negative (Negative) Urine Urobilinogen <2.0 (<2.0) mg/dL Ur Leukocyte Esterase Negative (Negative) Disposition <Sangeetha Shields - Last Filed: 06/30/23 21:16> Is patient prescribed a controlled substance at d/c from ED?: No Time of Disposition: 01:00 <Ganesh Sylvester - Last Filed: 07/07/23 23:09> Clinical Impression: Abdominal pain, Biliary colic Disposition: HOME SELF-CARE Condition: Good Instructions (If sedation given, give patient instructions): Abdominal Pain (ED) Referrals: Keven Kebede MD [Primary Care Provider] - 1-2 days
[2023-06-30 22:19] LABS: Basophils # (A) 0.1 k/uL (0-0.2); Basophils % (A) 1 %; Eosinophils # (A) 0.7 k/uL (0-0.7); Eosinophils % (A) 4 %; HGB 15.3 gm/dL (11.4-16.0); Lymphocytes # (A) 3.8 k/uL (1.0-4.8); Lymphocytes % (A) 24 %; MCH 31.1 pg (25.0-35.0); MCHC 32.5 g/dL (31.0-37.0); MCV 95.6 fL (80.0-100.0); Mean Platelet Volume 7.7; Monocytes % (A) 6 %; Neutrophils % (A) 63 %; Platelet Count 579 k/uL (150-450); RBC 4.92 m/uL (3.80-5.40); RDW 13.7 % (11.5-15.5); WBC 15.9 k/uL (3.8-10.6)
[2023-06-30 22:35] LABS: ALT 27 U/L (4-34); AST 49 U/L (14-36); African American GFR (CKD) >90 (>60 ml/min/1.73 sqM); Alkaline Phosphatase 115 U/L (38-126); Amylase 76 U/L (30-110); Anion Gap 6 mmol/L; Blood Urea Nitrogen 22 mg/dL (7-17); Calcium 9.3 mg/dL (8.4-10.2); Carbon Dioxide 28 mmol/L (22-30); Chloride 104 mmol/L (98-107); Glucose 126 mg/dL (74-99); Lipase 68 U/L (23-300); Non-African American GFR(CKD) >90 (>60 ml/min/1.73 sqM); Potassium 4.7 mmol/L (3.5-5.1); Sodium 138 mmol/L (137-145); Total Bilirubin 0.5 mg/dL (0.2-1.3); Total Protein 7.1 g/dL (6.3-8.2)
[2023-06-30] MEDS: HYDROmorphone 1 MG/ML 1 ML SYRINGE IVP STA (23:11)
[2023-06-30] MEDS: SODIUM CHLORIDE 0.9% 1,000 ML IV STA (23:11)
[2023-06-30] MEDS: KETOROLAC 15 MG/ML 1 ML VIAL IVP STA (23:12)
[2023-06-30] MEDS: ONDANSETRON 4 MG/2 ML VIAL IVP STA (23:14)
--- NOTE | 2023-06-30 23:15 | US ---
EXAMINATION TYPE: US gallbladder DATE OF EXAM: 06/30/2023 COMPARISON: CT May 09, 2023 CLINICAL INDICATION: Female, 48 years old with history of RUQ pain; RUQ pain. Hx of gallstones TECHNIQUE: Multiple sonographic images of the right upper quadrant are obtained. FINDINGS: EXAM MEASUREMENTS: Liver Length: 16.1 cm Gallbladder Wall: 0.2 cm CBD: 0.9 cm Right Kidney: 11.4 x 5.0 x 4.1 cm OFFICE MACHINE INSPECTOR NOTES: Pancreas: Parts seen appear wnl Liver: wnl Gallbladder: A cluster of gallstones seen near fundus Evidence for sonographic Farrell's sign: No CBD: Possibly dilated, no stones seen inside Right Kidney: Cystic area seen in sup pole measuring 1.6 x 1.5 x 1.3cm Visualized portions of pancreas unremarkable. Portions obscured by overlying bowel gas. Visualized li hi fairly homogeneous. Internal material in gallbladder favor small stones and/or gallbladder sludge . Cannot exclude eccentric mass. No adjacent fluid or abnormal wall thickening. Mild extrahepatic smiley iary dilatation on current study is more prominent from recent CT. No right-sided hydronephrosis. IMPRESSION: Gallbladder not completely anechoic. Suspect small stones and/or gallbladder sludge. Hector ot exclude eccentric mass. No secondary ultrasound evidence for acute cholecystitis. Advise surgical evaluation. There is new mild extrahepatic biliary dilatation however noted. Consider MRCP or ERCP fo llow-up to further evaluate.
[2023-07-01 00:19] LABS: Appearance,Urine Clear (Clear); Bilirubin,Urine Negative (Negative); Blood,Urine Negative (Negative); Color,Urine Colorless; Glucose,Urine (UA) Negative (Negative); Ketones,Urine Negative (Negative); Leukocyte Esterase,Urine Negative (Negative); Nitrite,Urine Negative (Negative); PH, Urine 6.5 (5.0-8.0); Protein,Urine Negative (Negative); Specific Gravity,Urine 1.005 (1.001-1.035); Urobilinogen,Urine <2.0 mg/dL (<2.0)
[2023-07-01] MEDS: IBUPROFEN 600 MG STARTER PACK 4 TAB BTL PO STA (01:27)
[2023-07-01] MEDS: ONDANSETRON 4 MG ODT STARTER PACK 2 TAB BTL PO STA (01:27)
[2023-07-01] MEDS: ACET/COD 300 MG/30 MG STARTER PACK 6 TAB BTL PO STA (01:27)
[2023-07-01 01:51] VITALS: BP 153/95; PULSE 79; RESP 18; TEMP 98.7
== END 2023-07-01 01:34 | disposition home or self-care (01) ==
LOC: EC 20:52
DX: K80.50 Calculus of bile duct without cholangitis or cholecystitis without obstruction (principal); F17.200 Nicotine dependence, unspecified, uncomplicated; Z88.1 Allergy status to other antibiotic agents; Z88.6 Allergy status to analgesic agent; Z91.030 Bee allergy status; Z91.048 Other nonmedicinal substance allergy status
CPT/HCPCS: 36415; 93005; 80053; 82150; 83605; 83690; 85025; 81003; 76705; 99285; 96374; 96375 ×2; 96361; J2405; J1170; J1885; S0119

== ENCOUNTER → 2023-07-08 | Outpatient (CLI) | payer BC, MEDICARE, OTHER ==
--- NOTE | 2023-07-08 12:50 | BD ---
EXAMINATION TYPE: Axial Bone Density DATE OF EXAM: 07/08/2023 CLINICAL HISTORY: 48 years old Female. ICD-10 CODE: M81.0 OSTEOPOROSIS Height: 59.5in Weight: 107lb FRAX RISK QUESTIONS: Secondary Osteoporosis: Current Tobacco Use: yes RISK FACTORS HISTORY OF: MEDICATIONS: Thyroid Medications: Which medication: Synthroid How Lon+ years EXAM MEASUREMENTS: Bone mineral densitometry was performed using the [employer]ild[employer] System. Bone mineral density as measured about the Lumbar spine is: ----- L1-L4(G/cm2): 0.945 T Score Values are as follows: ----- L1: -2.6 ----- L2: -3.0 ----- L3: -1.5 ----- L4: -1.2 ----- L1-L4: -2.0 Z Score Values are as follows: ----- L1: -1.6 ----- L2: -2.1 ----- L3: -0.6 ----- L4: -0.2 ----- L1-L4: -1.0 First dexa at [facility] Bone mineral density about the R hip (g/cm2): 0.675 Bone mineral density about the L hip (g/cm2): 0.669 T Score values are as follows: -----R Neck: -2.6 -----L Neck: -2.7 -----R Total: -2.6 -----L Total: -2.7 Z Score values are as follows: -----R Neck: -1.5 -----L Neck: -1.6 -----R Total: -1.8 -----L Total: -1.8 FRAX%s: The graph provided illustrates a 8% chance for a major osteoporotic fx and a 3.4% chance for the hips probability for fx in 10 years time. IMPRESSION: Osteoporosis (T Score less than -2.5). There is increased fracture risk and therapy is usually indicated based on age. Re-Screen 1-2 years. NOTE: T-SCORE=SD OF THE YOUNG ADULT MEAN.
== END | disposition home or self-care (01) ==
LOC: RADBDWWP 09:30
PROVIDERS: ATTEND Family Medicine
DX: M81.0 Age-related osteoporosis without current pathological fracture (principal); M85.88 Other specified disorders of bone density and structure, other site
CPT/HCPCS: 77080

== ENCOUNTER → 2023-08-01 | Outpatient (CLI) | payer BC, OTHER ==
[2023-08-01 15:40] LABS: HCT 43.6 % (37.2-46.3); HGB 14.5 g/dL (12.0-15.0); MCH 31.5 pg (27.0-32.0); MCHC 33.3 g/dL (32.0-37.0); MCV 94.8 FL (80.0-97.0); Mean Platelet Volume 9.3 FL (9.5-12.2); NRBC Per 100 WBC 0 X 10*3/uL (0.00-0.01); Platelet Count 451 X 10*3/uL (140-440); RDW 15.7 % (11.5-14.5); WBC 36.74 X 10*3/uL (4.50-10.00)
[2023-08-01 15:51] LABS: BUN/Creat Ratio 20.89 Ratio (12.00-20.00); Blood Urea Nitrogen 18.8 mg/dL (9.0-27.0); Calcium 9.3 mg/dL (8.7-10.3); Carbon Dioxide 26.1 mmol/L (21.6-31.8); Chloride 104 mmol/L (96-109); Glucose 77 mg/dL (70-110); Potassium 4.9 mmol/L (3.5-5.5); Sodium 141 mmol/L (135-145)
== END | disposition home or self-care (01) ==
LOC: LABWHC1 09:30
PROVIDERS: ATTEND Surgery
DX: Z01.812 Encounter for preprocedural laboratory examination (principal)
CPT/HCPCS: 36415; 80048; 85027

== ENCOUNTER 2023-08-21 14:37 | Emergency (ER) | payer BC, OTHER ==
--- NOTE | 2023-08-21 14:55 | ED ---
General Adult HPI - General Source: patient, RN notes reviewed Mode of arrival: ambulatory Limitations: no limitations <Angela Hunter - Last Filed: 08/21/23 19:42> <Mundo Nunn - Last Filed: 08/21/23 21:47> - General Chief complaint: GI Bleed Stated complaint: Black stools, diarrhea Time Seen by Provider: 08/21/23 14:54 - History of Present Illness Initial comments: This is a 48-year-old female who presents to the emergency department for abdominal pain and diarrhea. Abdominal pain began 4 days ago, however today she started to notice that her stool appeared darker. She has nausea but no vomiting. Pain starts in the epigastric region and radiates downwards. Not taking blood thinners. She does note that she took Pepto-Bismol yesterday and the dark stool began today. States that she is supposed to have her gallbladder removed at [facility] later this month. She does note that she started Actonel for osteoporosis before symptoms started and wonders if that may be causing her symptoms. (Angela Hunter) - Related Data Home Medications Medication Instructions Recorded Confirmed Levothyroxine Sodium [Synthroid] 50 mcg PO DAILY 01/05/14 08/21/23 ALPRAZolam [Xanax] 1 mg PO TID PRN 11/24/17 08/21/23 Pantoprazole Sodium [Protonix] 40 mg PO DAILY 05/28/18 08/21/23 Cyclobenzaprine [Flexeril] 10 mg PO TID PRN 10/29/20 08/21/23 Metoprolol Succinate (ER) [Toprol 25 mg PO DAILY 10/29/20 08/21/23 XL] Atogepant [Qulipta] 60 mg PO DAILY 08/21/21 08/21/23 Ofatumumab [Kesimpta Pen] 20 mg SQ DIRECTED 02/12/22 08/21/23 HYDROcodone/APAP 10-325MG [[place] 1 tab PO QID PRN 02/19/22 08/21/23 10-325] Albuterol Sulfate [Albuterol 2 puff INHALATION RT-Q6H PRN 02/19/23 08/21/23 Sulfate Hfa] Gabapentin [Neurontin] 400 mg PO TID PRN 02/19/23 08/21/23 Albuterol Nebulized [Ventolin 2.5 mg INHALATION RT-QID PRN 08/21/23 08/21/23 Nebulized] Cholecalciferol [Vitamin D3 (25 25 mcg PO DAILY 08/21/23 08/21/23 Mcg = 1000 Iu)] EPINEPHrine (Auto Inject) [Epipen] 0.3 mg IM ONCE PRN 08/21/23 08/21/23 Famotidine [Pepcid] 20 mg PO HS 08/21/23 08/21/23 Fluticasone/Umeclidin/Vilanter 1 puff INHALATION RT-DAILY PRN 08/21/23 08/21/23 [Trelegy Ellipta 100-62.5-25] Ginkgo Biloba [employer] Extract [Ginkgo 125 mg PO DAILY 08/21/23 08/21/23 Biloba] Loperamide HCl [Imodium A-D] 2 - 4 mg PO QID PRN 08/21/23 08/21/23 Nicotine 14Mg/24Hr Patch [Habitrol 1 patch TRANSDERM DAILY 08/21/23 08/21/23 14Mg/24Hr Patch] Ondansetron Odt [Zofran Odt] 4 mg PO BID PRN 08/21/23 08/21/23 Pravastatin Sodium [Pravachol] 40 mg PO HS 08/21/23 08/21/23 Promethazine 6.25MG/5Ml [Phenergan 25 mg PO DAILY PRN 08/21/23 08/21/23 Syrup] Risedronate Sodium [Actonel] 35 mg PO WE 08/21/23 08/21/23 Sertraline [Zoloft] 50 mg PO DAILY 08/21/23 08/21/23 Ubrogepant [Ubrelvy] 100 mg PO DAILY PRN 08/21/23 08/21/23 Vitamin A 2,400 mcg PO DAILY 08/21/23 08/21/23 valACYclovir HCL [Valacyclovir] 1,000 mg PO DAILY 08/21/23 08/21/23 Allergies Allergy/AdvReac Type Severity Reaction Status Date / Time bee venom protein (honey bee) Allergy SWELLING , Verified 08/21/23 17:58 AND ITCHING Bleach (Sodium Hypochlorite) Allergy Rash/Hives Verified 08/21/23 17:58 nitrofurantoin Allergy Rash/Hives Verified 08/21/23 17:58 [From Macrobid] nitrofurantoin Allergy Rash/Hives Verified 08/21/23 17:58 macrocrystalline [From Macrobid] moxifloxacin [From Avelox] AdvReac Nausea & Verified 08/21/23 17:58 Vomiting NSAIDS (Non-Steroidal AdvReac Had Verified 08/21/23 17:58 Anti-Inflamma gastric sleeve surgery, causes bleeds. seasonal allergies Allergy congestion Uncoded 08/21/23 17:58 and sneezing Review of Systems ROS Other: All systems not noted in ROS Statement are negative. <Angela Hunter - Last Filed: 08/21/23 19:42> ROS Other: All systems not noted in ROS Statement are negative. <Mundo Nunn - Last Filed: 08/21/23 21:47> ROS Statement: Those systems with pertinent positive or pertinent negative responses have been documented in the HPI. Past Medical History Past Medical History: Asthma, COPD, CVA/TIA, GERD/Reflux, Hypertension, Musculoskeletal Disorder, Neurologic Disorder, Sleep Apnea/CPAP/BIPAP, Thyroid Disorder Additional Past Medical History / Comment(s): smoking-related interstitial lung disease, doesn't use CPAP, history of seizure at the age of 16 related to med. to stop breast milk, endometriosis, chronic back pain, plantar fasciitis, hx. of Achilles tendinitis, probably antibiotic induced. She also has history of hypothyroidism, ALLERGIC rhinitis, migraines, uses oxygen 2L prn, recent iron infusion, MS , tia 2020 no residual issues, needs cholecystetomy, tinnitus, balance issues, History of Any Multi-Drug Resistant Organisms: None Reported Past Surgical History: Bariatric Surgery, Hysterectomy, Tubal Ligation, Uterine Ablation Additional Past Surgical History / Comment(s): LEEP PROCEDURE X 2, EGD, BACK INJECTIONS FOR PAIN. The patient has also undergone thoracic/thoracoscopic wedge biopsy of the right lung. 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; R and Y bypass at [facility] 2019,TRACHEOTOMY-RESOLVED Past Anesthesia/Blood Transfusion Reactions: Motion Sickness Additional Past Anesthesia/Blood Transfusion Reaction / Comment(s): no problem w/blood transfusion Past Psychological History: Anxiety, Depression Smoking Status: Current every day smoker Past Alcohol Use History: None Reported Past Drug Use History: None Reported - Past Family History Sister(s) Family Medical History: Cancer Mother Family Medical History: Cancer Additional Family Medical History / Comment(s): breast cancer Father Family Medical History: COPD, CVA/TIA, Myocardial Infarction ([place]) Additional Family Medical History / Comment(s): HEART PROBLEMS, AT AGE 64 <Angela Hunter - Last Filed: 08/21/23 19:42> General Exam Limitations: no limitations General appearance: alert, in no apparent distress Head exam: Present: atraumatic, normocephalic, normal inspection Respiratory exam: Present: normal lung sounds bilaterally. Absent: respiratory distress, wheezes, rales, rhonchi, stridor Cardiovascular Exam: Present: regular rate, normal rhythm, normal heart sounds. Absent: systolic murmur, diastolic murmur, rubs, gallop, clicks GI/Abdominal exam: Present: soft, tenderness (Epigastric and lower abdomen), normal bowel sounds. Absent: distended Neurological exam: Present: alert, oriented X3, CN II-XII intact Psychiatric exam: Present: normal affect, normal mood Skin exam: Present: warm, dry, intact, normal color. Absent: rash <Angela Hunter - Last Filed: 08/21/23 19:42> - General Exam Comments Initial Comments: Visual Physical Exam Vital signs reviewed General: Well-appearing, nontoxic, no acute distress. Head: Normocephalic, atraumatic Eyes: PERRLA, EOMI ENT: Airway patent Chest: Nonlabored breathing Skin: No visual rash, normal skin tone Neuro: Alert and oriented 3 Musculoskeletal: No gross abnormalities (Angela Hunter) Course Vital Signs 08/21/23 08/21/23 08/21/23 14:47 16:25 17:00 Temperature 98.2 F Pulse Rate 92 77 74 Respiratory 16 18 18 Rate Blood Pressure 145/82 164/89 151/81 O2 Sat by Pulse 99 99 95 Oximetry 08/21/23 08/21/23 18:15 20:53 Temperature Pulse Rate 71 71 Respiratory 18 18 Rate Blood Pressure 160/88 180/89 O2 Sat by Pulse 98 97 Oximetry Medical Decision Making - Lab Data Result diagrams: 08/21/23 15:35 08/21/23 15:35 - Radiology Data Radiology results: report reviewed, image reviewed <SinannatividadSagrarioAngela - Last Filed: 08/21/23 19:42> - Lab Data Result diagrams: 08/21/23 15:35 08/21/23 15:35 <Mundo Nunn - Last Filed: 08/21/23 21:47> - Medical Decision Making This is a 48 year old female who presents to the emergency department for abdominal pain. Was pt. sent in by a medical professional or institution? @ -No Did you speak to anyone other than the patient for history? @ -No Did you review nursing and triage notes? @ -Yes, and I agree, it is accurate with regards to the patient's symptoms. Were old charts reviewed? @ -No Differential Diagnosis? @ -Differential Abdominal Pain Women: Appendicitis, Cholecystitis, diverticulosis, ischemic bowel, pancreatitis, hepatitis, UTI, gastroenteritis, AAA, incarcerated hernia, bowel obstruction, constipation, inflammatory bowel, hepatitis, peptic ulcer disease, splenic infarction, perforated viscus, vulvitis, ovarian torsion, PID, kidney stone, placenta abruption, this is not meant to be an all-inclusive list EKG interpreted by me (3pts min.)? @ -EKG interpreted by me demonstrating the following: Sinus rhythm. Ventricular rate 72 bpm, VA interval 141 ms, QRS duration 105 ms, QTc 417 ms. X-rays interpreted by me (1pt min.)? @ -Not obtained CT interpreted by me (1pt min.)? @ -Pending at case sign out. U/S interpreted by me (1pt. min.)? @ -Not obtained What testing was considered but not performed? (CT, X-rays, U/S, labs)? Why? @ -None What meds were considered but not given? Why? @ -None Did you discuss the management of the patient with other professionals? @ -No Did you reconcile home meds? @ -No Was smoking cessation discussed for >3mins.? @ -No Was critical care preformed (if so, how long)? @ -No Were there social determinants of health that impacted care today? How? (Homelessness, low income, unemployed, alcoholism, drug addiction, transportation, low edu. Level, literacy, decrease access to med. care, group home, rehab)? @ -No Was there de-escalation of care discussed even if they declined? (Discuss DNR or withdrawal of care, Hospice)? @ -No What co-morbidities impacted this encounter? (DM, HTN, Smoking, COPD, CAD, Cancer, CVA, Hep., AIDS, mental health diagnosis, sleep apnea, morbid obesity)? @ -GERD Was patient admitted / discharged? @ -Lab work demonstrates leukocytosis. Liver enzymes are mildly elevated, but have been higher in the past. Urinalysis negative for signs of infection. Patient treated with IV fluids and morphine. Case signed out to SARY Greer, at shift completion pending CT scan results. (Angela Hunter) Case signed out to me pending CT results. In short, 48-year-old female presenting to the ED with complaints of epigastric abdominal pain for the last 2 to 4 days and also notes some diarrhea and nausea as well. Reportedly is due to get her gallbladder out however states pain worse in nature which prompted presentation here for further evaluation. CT abdomen pelvis consistent with gallbladder showing signs suggestive of acute cholecystitis gallbladder distention, wall thickening, and pericholecystic fluid. Also moderate intrahepatic and extrahepatic biliary ductal dilation with common bile duct up to 8.7. Patient will be transferred to [facility]. Case discussed with Dr. Veliz of GI, who accepts admission. (Mundo Nunn) - Lab Data Lab Results 08/21/23 08/21/23 08/21/23 Range/Units 15:35 15:35 15:35 WBC 14.5 H (3.8-10.6) k/uL RBC 4.94 (3.80-5.40) m/uL Hgb 15.9 (11.4-16.0) gm/dL Hct 49.9 H (34.0-46.0) % MCV 101.0 H D (80.0-100.0) fL MCH 32.2 (25.0-35.0) pg MCHC 31.8 (31.0-37.0) g/dL RDW 15.0 (11.5-15.5) % Plt Count 907 H (150-450) k/uL MPV 8.1 Neutrophils % 71 % Lymphocytes % 18 % Monocytes % 5 % Eosinophils % 4 % Basophils % 1 % Neutrophils # 10.3 H (1.3-7.7) k/uL Lymphocytes # 2.6 (1.0-4.8) k/uL Monocytes # 0.7 (0-1.0) k/uL Eosinophils # 0.6 (0-0.7) k/uL Basophils # 0.1 (0-0.2) k/uL Macrocytosis Slight APTT 27.4 (22.0-30.0) sec Sodium (137-145) mmol/L Potassium (3.5-5.1) mmol/L Chloride (98-107) mmol/L Carbon Dioxide (22-30) mmol/L Anion Gap mmol/L BUN (7-17) mg/dL Creatinine (0.52-1.04) mg/dL Est GFR (CKD-EPI)AfAm (>60 ml/min/1.73 sqM) Est GFR (CKD-EPI)NonAf (>60 ml/min/1.73 sqM) Glucose (74-99) mg/dL Plasma Lactic Acid Miguel Angel (0.7-2.0) mmol/L Calcium (8.4-10.2) mg/dL Magnesium (1.6-2.3) mg/dL Total Bilirubin (0.2-1.3) mg/dL AST (14-36) U/L ALT (4-34) U/L Alkaline Phosphatase (38-126) U/L Troponin I (0.000-0.034) ng/mL Total Protein (6.3-8.2) g/dL Albumin (3.5-5.0) g/dL Lipase (23-300) U/L Urine Color Colorless Urine Appearance Clear (Clear) Urine pH 5.5 (5.0-8.0) Ur Specific [place] 1.005 (1.001-1.035) Urine Protein Negative (Negative) Urine Glucose (UA) Negative (Negative) Urine Ketones Negative (Negative) Urine Blood Negative (Negative) Urine Nitrite Negative (Negative) Urine Bilirubin Negative (Negative) Urine Urobilinogen <2.0 (<2.0) mg/dL Ur Leukocyte Esterase Negative (Negative) 08/21/23 08/21/23 08/21/23 Range/Units 15:35 15:35 15:35 WBC (3.8-10.6) k/uL RBC (3.80-5.40) m/uL Hgb (11.4-16.0) gm/dL Hct (34.0-46.0) % MCV (80.0-100.0) fL MCH (25.0-35.0) pg MCHC (31.0-37.0) g/dL RDW (11.5-15.5) % Plt Count (150-450) k/uL MPV Neutrophils % % Lymphocytes % % Monocytes % % Eosinophils % % Basophils % % Neutrophils # (1.3-7.7) k/uL Lymphocytes # (1.0-4.8) k/uL Monocytes # (0-1.0) k/uL Eosinophils # (0-0.7) k/uL Basophils # (0-0.2) k/uL Macrocytosis APTT (22.0-30.0) sec Sodium 141 (137-145) mmol/L Potassium 4.1 (3.5-5.1) mmol/L Chloride 111 H (98-107) mmol/L Carbon Dioxide 21 L (22-30) mmol/L Anion Gap 9 mmol/L BUN 10 (7-17) mg/dL Creatinine 0.63 (0.52-1.04) mg/dL Est GFR (CKD-EPI)AfAm >90 (>60 ml/min/1.73 sqM) Est GFR (CKD-EPI)NonAf >90 (>60 ml/min/1.73 sqM) Glucose 76 (74-99) mg/dL Plasma Lactic Acid Miguel Angel 1.0 (0.7-2.0) mmol/L Calcium 8.8 (8.4-10.2) mg/dL Magnesium 1.7 (1.6-2.3) mg/dL Total Bilirubin 0.7 (0.2-1.3) mg/dL AST 42 H (14-36) U/L ALT 30 (4-34) U/L Alkaline Phosphatase 219 H (38-126) U/L Troponin I <0.012 (0.000-0.034) ng/mL Total Protein 6.9 (6.3-8.2) g/dL Albumin 3.8 (3.5-5.0) g/dL Lipase 67 (23-300) U/L Urine Color Urine Appearance (Clear) Urine pH (5.0-8.0) Ur Specific [place] (1.001-1.035) Urine Protein (Negative) Urine Glucose (UA) (Negative) Urine Ketones (Negative) Urine Blood (Negative) Urine Nitrite (Negative) Urine Bilirubin (Negative) Urine Urobilinogen (<2.0) mg/dL Ur Leukocyte Esterase (Negative) Disposition <Angela Hunter - Last Filed: 08/21/23 19:42> Time of Disposition: 21:00 - Out of Hospital Transfer - Req. Specs Out of Hospital Transfer - Requested Specifics: Other Emergency Center ([facility]) <Mundo Nunn - Last Filed: 08/21/23 21:47> Clinical Impression: Cholecystitis Disposition: OTHER INSTITUTION NOT DEFINED Condition: Good Referrals: Keven Kebede MD [Primary Care Provider] - 1-2 days
[2023-08-21 16:21] LABS: Basophils # (A) 0.1 k/uL (0-0.2); Basophils % (A) 1 %; Eosinophils # (A) 0.6 k/uL (0-0.7); Eosinophils % (A) 4 %; HCT 49.9 % (34.0-46.0); HGB 15.9 gm/dL (11.4-16.0); Lymphocytes # (A) 2.6 k/uL (1.0-4.8); Lymphocytes % (A) 18 %; MCH 32.2 pg (25.0-35.0); MCHC 31.8 g/dL (31.0-37.0); Macrocytosis Slight; Mean Platelet Volume 8.1; Monocytes # (A) 0.7 k/uL (0-1.0); Monocytes % (A) 5 %; Neutrophils # (A) 10.3 k/uL (1.3-7.7); Neutrophils % (A) 71 %; Platelet Count 907 k/uL (150-450); RBC 4.94 m/uL (3.80-5.40); WBC 14.5 k/uL (3.8-10.6)
[2023-08-21] MEDS: SODIUM CHLORIDE 0.9% 1,000 ML IV STA (16:26)
[2023-08-21] MEDS: MORPHINE SULFATE 4 MG/ML SYRINGE IVP STA (16:27)
[2023-08-21 16:28] LABS: ALT 30 U/L (4-34); African American GFR (CKD) >90 (>60 ml/min/1.73 sqM); Albumin 3.8 g/dL (3.5-5.0); Anion Gap 9 mmol/L; Blood Urea Nitrogen 10 mg/dL (7-17); Calcium 8.8 mg/dL (8.4-10.2); Carbon Dioxide 21 mmol/L (22-30); Chloride 111 mmol/L (98-107); Glucose 76 mg/dL (74-99); Lipase 67 U/L (23-300); Non-African American GFR(CKD) >90 (>60 ml/min/1.73 sqM); Sodium 141 mmol/L (137-145); Total Bilirubin 0.7 mg/dL (0.2-1.3); Total Protein 6.9 g/dL (6.3-8.2)
[2023-08-21 16:29] VITALS: RESP 18
[2023-08-21 16:29] LABS: AST 42 U/L (14-36); Alkaline Phosphatase 219 U/L (38-126); Magnesium 1.7 mg/dL (1.6-2.3); Potassium 4.1 mmol/L (3.5-5.1)
[2023-08-21 16:35] LABS: Appearance,Urine Clear (Clear); Bilirubin,Urine Negative (Negative); Blood,Urine Negative (Negative); Color,Urine Colorless; Glucose,Urine (UA) Negative (Negative); Ketones,Urine Negative (Negative); Leukocyte Esterase,Urine Negative (Negative); Nitrite,Urine Negative (Negative); PH, Urine 5.5 (5.0-8.0); Protein,Urine Negative (Negative); Specific Gravity,Urine 1.005 (1.001-1.035); Urobilinogen,Urine <2.0 mg/dL (<2.0)
--- NOTE | 2023-08-21 19:53 | CT ---
EXAMINATION TYPE: CT abdomen pelvis w con CT DLP: 470.9 mGycm, Automated exposure control for dose reduction was used. DATE OF EXAM: 08/21/2023 5:06 PM COMPARISON: 05/09/2023 CLINICAL INDICATION:Female, 48 years old with history of Abdominal pain, acute, nonlocalized; abdomin al pain, diarrhea TECHNIQUE: Axial CT of the abdomen and pelvis. Sagittal and coronal reformats were created on a [employer] workstation. Contrast used:100 mL of Isovue 300 with IV Contrast, (none if empty) Oral contrast used: without Oral Contrast (none if empty) FINDINGS: LOWER CHEST: Mild bibasilar subsegmental atelectasis. Heart appears mildly enlarged. ABDOMEN LIVER: Liver appears enlarged, the right lobe is 21.1 cm in length. Mild pattern of geographic higher and lower attenuation, likely from hepatic steatosis. No evidence of mass. GALLBLADDER AND BILE DUCTS: Gallbladder appears distended with wall thickening and pericholecystic fl uid suggestive of acute cholecystitis. There is also moderate intrahepatic and extrahepatic biliary d uctal dilatation, CBD is up to 8.7 mm. This shows relatively abrupt tapering and nonvisualization dis tally; no definite obstructing etiology is visualized. PANCREAS: No acute inflammatory changes. Small ovoid hypoattenuating focus in the anterior pancreatic head image 31. Recommend periodic MR surveillance. SPLEEN: Not seen, likely surgically absent. ADRENAL GLANDS: No evidence of mass.. KIDNEYS AND URETERS: Kidneys enhance symmetrically. A 1.6 cm cyst in the anterior right kidney. Mildl y prominent bilateral extrarenal pelves without dilated ureters seen. On delayed images, there are sm all patchy peripheral areas of hypoattenuation involving the right kidney, however with mild similar changes also seen on the left. PELVIS BLADDER: Unremarkable REPRODUCTIVE: Organs not seen, correlate with surgical history. ABDOMEN & PELVIS STOMACH AND BOWEL: Postoperative changes in left upper quadrant involving the stomach and small bowel . No gross acute anomaly is seen. PERITONEUM/RETROPERITONEUM: No evidence of pneumoperitoneum or free fluid. VASCULATURE: Moderate to severe atherosclerotic calcifications are present throughout the abdominal a tico and its branches. No evidence of aortic aneurysm. LYMPH NODES: No enlarged nodes by CT size criteria. SOFT TISSUE/ABDOMINAL WALL: Unremarkable MUSCULOSKELETAL: No acute osseous abnormalities. Mild osseous degenerative changes. IMPRESSION: 1. Appearance of the gallbladder suggests acute cholecystitis. 2. Moderate intrahepatic and extrahepatic biliary ductal dilatation, CBD is up to 8.7 mm. This shows relatively abrupt tapering and nonvisualization distally; no definite obstructing etiology is visual ized. Correlate with LFTs. MRCP or ERCP may be considered. 3. Hepatomegaly and hepatic steatosis. 4. Small patchy peripheral areas of hypoattenuation involving the right more so than left kidney, ca n be seen with pyelonephritis or perfusion defects. 5. Other chronic and likely incidental findings, as described above.
[2023-08-21] MEDS: HYDROmorphone 1 MG/ML 1 ML SYRINGE IVP STA (21:11)
[2023-08-21] MEDS: NICOTINE 21MG/24HR PATCH TRANSDERM STA (21:22)
[2023-08-21 22:39] VITALS: BP 164/89; PULSE 70; TEMP 98.4
== END 2023-08-21 22:00 | disposition other institution (70) ==
LOC: EC 14:37
DX: K81.9 Cholecystitis, unspecified (principal); K21.9 Gastro-esophageal reflux disease without esophagitis; F17.200 Nicotine dependence, unspecified, uncomplicated; Z88.1 Allergy status to other antibiotic agents; Z88.6 Allergy status to analgesic agent; Z91.030 Bee allergy status; Z91.048 Other nonmedicinal substance allergy status; Z91.09 Other allergy status, other than to drugs and biological substances; Z86.73 Personal history of transient ischemic attack (TIA), and cerebral infarction without residual deficits
CPT/HCPCS: 36415; 93005; 80053; 83605; 83690; 83735; 84484; 85025; 85730; 81003; 74177; 99285; 96374; 96375; 96361 ×2; S4990; J2270; J1170; Q9967

== ENCOUNTER 2023-08-29 15:16 | Emergency (ER) | payer BC, OTHER ==
[2023-08-29 15:49] VITALS: TEMP 98.6
--- NOTE | 2023-08-29 16:04 | ED ---
Abdominal Pain HPI - General Chief Complaint: Urogenital Stated Complaint: post op-pain Time Seen by Provider: 08/29/23 15:42 Source: patient, family, RN notes reviewed, old records reviewed Mode of arrival: ambulatory Limitations: no limitations - History of Present Illness Initial Comments: This is a 48-year-old female to the ER. This [place] for evaluation of significant abdominal pain. Patient is 6 days postoperative, patient is postope rative for gallbladder surgery. Severe abdominal pain with nausea today no fevers severe abdominal pain and distention MD Complaint: abdominal pain -: days(s) Location: periumbilical, epigastric, suprapubic, bilateral flank Radiation: epigastric, suprapubic, L flank, R flank Migration to: epigastric, suprapubic Severity scale (1-10): 6 Quality: stabbing Consistency: constant Improves With: nothing Associated Symptoms: nausea Treatments Prior to Arrival: other - Related Data Home Medications Medication Instructions Recorded Confirmed Levothyroxine Sodium [Synthroid] 50 mcg PO DAILY 01/05/14 08/21/23 ALPRAZolam [Xanax] 1 mg PO TID PRN 11/24/17 08/21/23 Pantoprazole Sodium [Protonix] 40 mg PO DAILY 05/28/18 08/21/23 Cyclobenzaprine [Flexeril] 10 mg PO TID PRN 10/29/20 08/21/23 Metoprolol Succinate (ER) [Toprol 25 mg PO DAILY 10/29/20 08/21/23 XL] Atogepant [Qulipta] 60 mg PO DAILY 08/21/21 08/21/23 Ofatumumab [Kesimpta Pen] 20 mg SQ DIRECTED 02/12/22 08/21/23 HYDROcodone/APAP 10-325MG [D Hanis 1 tab PO QID PRN 02/19/22 08/21/23 10-325] Albuterol Sulfate [Albuterol 2 puff INHALATION RT-Q6H PRN 02/19/23 08/21/23 Sulfate Hfa] Gabapentin [Neurontin] 400 mg PO TID PRN 02/19/23 08/21/23 Albuterol Nebulized [Ventolin 2.5 mg INHALATION RT-QID PRN 08/21/23 08/21/23 Nebulized] Cholecalciferol [Vitamin D3 (25 25 mcg PO DAILY 08/21/23 08/21/23 Mcg = 1000 Iu)] EPINEPHrine (Auto Inject) [Epipen] 0.3 mg IM ONCE PRN 08/21/23 08/21/23 Famotidine [Pepcid] 20 mg PO HS 08/21/23 08/21/23 Fluticasone/Umeclidin/Vilanter 1 puff INHALATION RT-DAILY PRN 08/21/23 08/21/23 [Trelelio Ellipta 100-62.5-25] Ginkgo Biloba [place] Extract [Ginkgo 125 mg PO DAILY 08/21/23 08/21/23 Biloba] Loperamide HCl [Imodium A-D] 2 - 4 mg PO QID PRN 08/21/23 08/21/23 Nicotine 14Mg/24Hr Patch [Habitrol 1 patch TRANSDERM DAILY 08/21/23 08/21/23 14Mg/24Hr Patch] Ondansetron Odt [Zofran Odt] 4 mg PO BID PRN 08/21/23 08/21/23 Pravastatin Sodium [Pravachol] 40 mg PO HS 08/21/23 08/21/23 Promethazine 6.25MG/5Ml [Phenergan 25 mg PO DAILY PRN 08/21/23 08/21/23 Syrup] Risedronate Sodium [Actonel] 35 mg PO WE 08/21/23 08/21/23 Sertraline [Zoloft] 50 mg PO DAILY 08/21/23 08/21/23 Ubrogepant [Ubrelvy] 100 mg PO DAILY PRN 08/21/23 08/21/23 Vitamin A 2,400 mcg PO DAILY 08/21/23 08/21/23 valACYclovir HCL [Valacyclovir] 1,000 mg PO DAILY 08/21/23 08/21/23 Allergies Allergy/AdvReac Type Severity Reaction Status Date / Time bee venom protein (honey bee) Allergy SWELLING , Verified 08/21/23 17:58 AND ITCHING Bleach (Sodium Hypochlorite) Allergy Rash/Hives Verified 08/21/23 17:58 nitrofurantoin Allergy Rash/Hives Verified 08/21/23 17:58 [From Macrobid] nitrofurantoin Allergy Rash/Hives Verified 08/21/23 17:58 macrocrystalline [From Macrobid] moxifloxacin [From Avelox] AdvReac Nausea & Verified 08/21/23 17:58 Vomiting NSAIDS (Non-Steroidal AdvReac Had Verified 08/21/23 17:58 Anti-Inflamma gastric sleeve surgery, causes bleeds. seasonal allergies Allergy congestion Uncoded 08/21/23 17:58 and sneezing Review of Systems ROS Statement: Those systems with pertinent positive or pertinent negative responses have been documented in the HPI. ROS Other: All systems not noted in ROS Statement are negative. Past Medical History Past Medical History: Asthma, COPD, CVA/TIA, GERD/Reflux, Hypertension, Musculoskeletal Disorder, Neurologic Disorder, Sleep Apnea/CPAP/BIPAP, Thyroid Disorder Additional Past Medical History / Comment(s): smoking-related interstitial lung disease, doesn't use CPAP, history of seizure at the age of 16 related to med. to stop breast milk, endometriosis, chronic back pain, plantar fasciitis, hx. of Achilles tendinitis, probably antibiotic induced. She also has history of hypothyroidism, ALLERGIC rhinitis, migraines, uses oxygen 2L prn, recent iron infusion, MS , tia 2020 no residual issues, needs cholecystetomy, tinnitus, balance issues, History of Any Multi-Drug Resistant Organisms: None Reported Past Surgical History: Bariatric Surgery, Hysterectomy, Tubal Ligation, Uterine Ablation Additional Past Surgical History / Comment(s): LEEP PROCEDURE X 2, EGD, BACK INJECTIONS FOR PAIN. The patient has also undergone thoracic/thoracoscopic wedge biopsy of the right lung. 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; R and Y bypass at [facility] 2019,TRACHEOTOMY-RESOLVED Past Anesthesia/Blood Transfusion Reactions: Motion Sickness Additional Past Anesthesia/Blood Transfusion Reaction / Comment(s): no problem w /blood transfusion Past Psychological History: Anxiety, Depression Smoking Status: Current every day smoker Past Alcohol Use History: None Reported Past Drug Use History: None Reported - Past Family History Sister(s) Family Medical History: Cancer Mother Family Medical History: Cancer Additional Family Medical History / Comment(s): breast cancer Father Family Medical History: COPD, CVA/TIA, Myocardial Infarction ([place]) Additional Family Medical History / Comment(s): HEART PROBLEMS, AT AGE 64 General Exam Limitations: no limitations General appearance: alert, in no apparent distress, anxious, in distress Head exam: Present: atraumatic, normocephalic, normal inspection Eye exam: Present: normal appearance, PERRL, EOMI. Absent: scleral icterus, conjunctival injection, periorbital swelling ENT exam: Present: normal exam, mucous membranes moist Neck exam: Present: normal inspection. Absent: tenderness, meningismus, lymphadenopathy Respiratory exam: Present: normal lung sounds bilaterally. Absent: respiratory distress, wheezes, rales, rhonchi, stridor Cardiovascular Exam: Present: regular rate, normal rhythm, normal heart sounds. Absent: systolic murmur, diastolic murmur, rubs, gallop, clicks GI/Abdominal exam: Present: distended, tenderness, guarding, normal bowel sounds. Absent: rebound, rigid Extremities exam: Present: normal inspection, full ROM, normal capillary refill. Absent: tenderness, pedal edema, joint swelling, calf tenderness Back exam: Present: normal inspection Neurological exam: Present: alert, oriented X3, CN II-XII intact Psychiatric exam: Present: normal affect, normal mood Skin exam: Present: warm, dry, intact, normal color. Absent: rash Course Vital Signs 08/29/23 08/29/23 15:27 19:19 Temperature 98.6 F Pulse Rate 120 H 107 H Respiratory 20 18 Rate Blood Pressure 138/80 129/76 O2 Sat by Pulse 98 96 Oximetry - Reevaluation(s) Reevaluation #1: 08/29/23 18:57 Records reviewed Reevaluation #2: 08/29/23 18:57 Patient symptoms unchanged Reevaluation #3: 08/29/23 18:57 Patient informed of results questions answered Reevaluation #4: Was pt. sent in by a medical professional or institution (, PA, SALES ARCHITECT, urgent care, hospital, or retirement...) When possible be specific @ -no Did you speak to anyone other than the patient for history (EMS, parent, family, police, friend...)? What history was obtained from this source @ -no Did you review nursing and triage notes (agree or disagree)? Why? @ -agree Are old charts reviewed (outside hosp., previous admission, EMS record, old EKG, old radiological studies, urgent care reports/EKG's, retirement records)? Report findings @ -yes Differential Diagnosis (chest pain, altered mental status, abdominal pain women, abdominal pain men, vaginal bleeding, weakness, fever, dyspnea, syncope, headache, dizziness, GI bleed, back pain, seizure, CVA, palpatations, mental health, musculoskeletal)? @ -prior EKG interpreted by me (3pts min.). @ -yes X-rays interpreted by me (1pt min.). @ -no CT interpreted by me (1pt min.). @ -yes with significant postoperative complication and hemorrhage U/S interpreted by me (1pt. min.). @ -no What testing was considered but not performed or refused? (CT, X-rays, U/S, labs)? Why? @ -none What meds were considered but not given or refused? Why? @ -none Did you discuss the management of the patient with other professionals (professionals i.e. , PA, SALES ARCHITECT, lab, RT, psych nurse, social research assistant, cake tester, teacher, donor relations officer, case worker)? Give summary @ -no Was smoking cessation discussed for >3mins.? @ -no Was critical care preformed (if so, how long)? @ -yes31 Were there social determinants of health that impacted care today? How? (Homelessness, low income, unemployed, alcoholism, drug addiction, transpo rtation, low edu. Level, literacy, decrease access to med. care, fdc, rehab)? @ -none Was there de-escalation of care discussed even if they declined (Discuss DNR or withdrawal of care, Hospice)? DNR status @ -no What co-morbidities impacted this encounter? (DM, HTN, Smoking, COPD, CAD, Cancer, CVA, ARF, Chemo, Hep., AIDS, mental health diagnosis, sleep apnea, morbid obesity)? @ -none Was patient admitted / discharged? Hospital course, mention meds given and route, prescriptions, significant lab abnormalities, going to OR and other pertinent info. @ - 48 female to the ER for evaluation of severe abdominal pain here in the emergency room patient has postoperative swelling edema infection likely tripped abdominal hemorrhage with infection and ileus. Patient has pain control currently here in the ER will be transferred to [facility] under care of prior surgeon Transferred to [facility] Admitted Undiagnosed new problem with uncertain prognosis? @ -no Drug Therapy requiring intensive monitoring for toxicity (Heparin, Nitro, Insulin, Cardizem)? @ -no Were any procedures done? @ -no Diagnosis/symptom? @ -Postoperative hemorrhage Acute, or Chronic, or Acute on Chronic? @ -Acute Uncomplicated (without systemic symptoms) or Complicated (systemic symptoms)? @ -Complicated Side effects of treatment? @ -no Exacerbation, Progression, or Severe Exacerbation? @ -exacerbation Poses a threat to life or bodily function? How? (Chest pain, [place], [place], pneumonia, PE, COPD, DKA, ARF, appy, cholecystitis, CVA, Diverticulitis, Homicidal, Suicidal, threat to staff... and all critical care pts) @ -yes postoperative complication Reevaluation #5: Differential Abdominal Pain Women: Appendicitis, Cholecystitis, diverticulosis, ischemic bowel, pancreatitis, hepatitis, UTI, gastroenteritis, AAA, incarcerated hernia, bowel obstruction, constipation, inflammatory bowel, hepatitis, peptic ulcer disease, splenic infarction, perforated viscus, vulvitis, ovarian torsion, PID, kidney stone, placenta abruption, this is not meant to be an all-inclusive list - Consultations Consultation #1: Spoke with [facility] accepting patient as a transfer under care of prior surgeon Medical Decision Making - Medical Decision Making 48 female to the ER for evaluation of severe abdominal pain here in the emergency room patient has postoperative swelling edema infection likely tripped abdominal hemorrhage with infection and ileus. Patient has pain control currently here in the ER will be transferred to [facility] under care of prior surgeon - Lab Data Result diagrams: 08/29/23 16:00 08/29/23 16:00 Lab Results 08/29/23 08/29/23 08/29/23 Range/Units 16:00 16:00 16:00 WBC 26.9 H (3.8-10.6) k/uL RBC 3.14 L (3.80-5.40) m/uL Hgb 10.2 L D (11.4-16.0) gm/dL Hct 32.1 L (34.0-46.0) % MCV 102.0 H (80.0-100.0) fL MCH 32.4 (25.0-35.0) pg MCHC 31.7 (31.0-37.0) g/dL RDW 14.3 (11.5-15.5) % Plt Count 714 H (150-450) k/uL MPV 7.8 Neutrophils % (Manual) 80 % Band Neuts % (Manual) 2 % Lymphocytes % (Manual) 5 % Monocytes % (Manual) 12 % Metamyelocytes % 2 % Myelocytes % 1 % Neutrophils # (Manual) 22.00 H (1.3-7.7) k/uL Lymphocytes # (Manual) 1.35 (1.0-4.8) k/uL Monocytes # (Manual) 3.23 H (0-1.0) k/uL Metamyelocytes # (Man) 0.54 H (0) k/uL Myelocytes # (Manual) 0.27 H (0) k/uL Nucleated RBCs 0 (0-0) /100 WBC Manual Slide Review Performed Macrocytosis Slight PT 10.8 (10.0-12.5) sec INR 1.0 (<1.2) APTT 32.7 H (22.0-30.0) sec Sodium 128 L (137-145) mmol/L Potassium 5.4 H (3.5-5.1) mmol/L Chloride 99 (98-107) mmol/L Carbon Dioxide 23 (22-30) mmol/L Anion Gap 6 mmol/L BUN 18 H (7-17) mg/dL Creatinine 0.66 (0.52-1.04) mg/dL Est GFR (CKD-EPI)AfAm >90 (>60 ml/min/1.73 sqM) Est GFR (CKD-EPI)NonAf >90 (>60 ml/min/1.73 sqM) Glucose 104 H (74-99) mg/dL Plasma Lactic Acid Miguel Angel (0.7-2.0) mmol/L Calcium 7.8 L (8.4-10.2) mg/dL Total Bilirubin 1.8 H (0.2-1.3) mg/dL AST 46 H (14-36) U/L ALT 20 (4-34) U/L Alkaline Phosphatase 176 H (38-126) U/L Total Protein 5.8 L (6.3-8.2) g/dL Albumin 2.8 L (3.5-5.0) g/dL Amylase 31 (30-110) U/L Lipase 12 L (23-300) U/L Urine Color Urine Appearance (Clear) Urine pH (5.0-8.0) Ur Specific Mobile (1.001-1.035) Urine Protein (Negative) Urine Glucose (UA) (Negative) Urine Ketones (Negative) Urine Blood (Negative) Urine Nitrite (Negative) Urine Bilirubin (Negative) Urine Urobilinogen (<2.0) mg/dL Ur Leukocyte Esterase (Negative) Urine RBC (0-5) /hpf Urine WBC (0-5) /hpf Ur Squamous Epith Cells (0-4) /hpf Hyaline Casts (0-2) /lpf Urine Mucus (None) /hpf 08/29/23 08/29/23 Range/Units 16:00 16:28 WBC (3.8-10.6) k/uL RBC (3.80-5.40) m/uL Hgb (11.4-16.0) gm/dL Hct (34.0-46.0) % MCV (80.0-100.0) fL MCH (25.0-35.0) pg MCHC (31.0-37.0) g/dL RDW (11.5-15.5) % Plt Count (150-450) k/uL MPV Neutrophils % (Manual) % Band Neuts % (Manual) % Lymphocytes % (Manual) % Monocytes % (Manual) % Metamyelocytes % % Myelocytes % % Neutrophils # (Manual) (1.3-7.7) k/uL Lymphocytes # (Manual) (1.0-4.8) k/uL Monocytes # (Manual) (0-1.0) k/uL Metamyelocytes # (Man) (0) k/uL Myelocytes # (Manual) (0) k/uL Nucleated RBCs (0-0) /100 WBC Manual Slide Review Macrocytosis PT (10.0-12.5) sec INR (<1.2) APTT (22.0-30.0) sec Sodium (137-145) mmol/L Potassium (3.5-5.1) mmol/L Chloride (98-107) mmol/L Carbon Dioxide (22-30) mmol/L Anion Gap mmol/L BUN (7-17) mg/dL Creatinine (0.52-1.04) mg/dL Est GFR (CKD-EPI)AfAm (>60 ml/min/1.73 sqM) Est GFR (CKD-EPI)NonAf (>60 ml/min/1.73 sqM) Glucose (74-99) mg/dL Plasma Lactic Acid Miguel Angel 1.0 (0.7-2.0) mmol/L Calcium (8.4-10.2) mg/dL Total Bilirubin (0.2-1.3) mg/dL AST (14-36) U/L ALT (4-34) U/L Alkaline Phosphatase (38-126) U/L Total Protein (6.3-8.2) g/dL Albumin (3.5-5.0) g/dL Amylase (30-110) U/L Lipase (23-300) U/L Urine Color Yellow Urine Appearance Clear (Clear) Urine pH 5.5 (5.0-8.0) Ur Specific Mobile 1.020 (1.001-1.035) Urine Protein Trace H (Negative) Urine Glucose (UA) Negative (Negative) Urine Ketones Negative (Negative) Urine Blood Negative (Negative) Urine Nitrite Negative (Negative) Urine Bilirubin Negative (Negative) Urine Urobilinogen 4.0 (<2.0) mg/dL Ur Leukocyte Esterase Moderate H (Negative) Urine RBC 2 (0-5) /hpf Urine WBC 2 (0-5) /hpf Ur Squamous Epith Cells 2 (0-4) /hpf Hyaline Casts 4 H (0-2) /lpf Urine Mucus Rare H (None) /hpf - Radiology Data Radiology results: report reviewed (CT abdomen pelvis is positive for postoperative complications including ileus, hemorrhage and infection), image reviewed Critical Care Time Critical Care Time: Yes Total Critical Care Time: 31 Disposition Clinical Impression: Postoperative hemorrhage, Colitis, Ileus, Postoperative abdominal pain, Leukocytosis, Dehydration Disposition: TRANSFER TO PSYCH HOSP/UNIT Condition: Serious Is patient prescribed a controlled substance at d/c from ED?: No Referrals: Keven Kebede MD [Primary Care Provider] - 1-2 days Time of Disposition: 19:00
[2023-08-29 16:24] LABS: HCT 32.1 % (34.0-46.0); MCH 32.4 pg (25.0-35.0); MCHC 31.7 g/dL (31.0-37.0); Macrocytosis Slight; Mean Platelet Volume 7.8; Platelet Count 714 k/uL (150-450); RBC 3.14 m/uL (3.80-5.40); RDW 14.3 % (11.5-15.5); WBC 26.9 k/uL (3.8-10.6)
[2023-08-29] MEDS: SODIUM CHLORIDE 0.9% 500 ML 500 ML IV STA (16:35)
[2023-08-29 16:36] LABS: ALT 20 U/L (4-34); African American GFR (CKD) >90 (>60 ml/min/1.73 sqM); Amylase 31 U/L (30-110); Anion Gap 6 mmol/L; Blood Urea Nitrogen 18 mg/dL (7-17); Calcium 7.8 mg/dL (8.4-10.2); Carbon Dioxide 23 mmol/L (22-30); Chloride 99 mmol/L (98-107); Glucose 104 mg/dL (74-99); Lipase 12 U/L (23-300); Non-African American GFR(CKD) >90 (>60 ml/min/1.73 sqM); Sodium 128 mmol/L (137-145); Total Bilirubin 1.8 mg/dL (0.2-1.3)
[2023-08-29] MEDS: ONDANSETRON 4 MG/2 ML VIAL IVP STA (16:36)
[2023-08-29 16:37] LABS: AST 46 U/L (14-36); Albumin 2.8 g/dL (3.5-5.0); Alkaline Phosphatase 176 U/L (38-126); Potassium 5.4 mmol/L (3.5-5.1); Total Protein 5.8 g/dL (6.3-8.2)
[2023-08-29 16:39] LABS: Partial Thromboplastin Time 32.7 sec (22.0-30.0); Prothrombin Time 10.8 sec (10.0-12.5)
--- NOTE | 2023-08-29 16:41 | CT ---
EXAMINATION TYPE: CT abdomen pelvis w con CT DLP: 598 mGycm, Automated exposure control for dose reduction was used. DATE OF EXAM: 08/29/2023 4:30 PM COMPARISON: CT abdomen pelvis most recent from 08/21/2023. CLINICAL INDICATION:Female, 48 years old with history of abdominal pain; dysuria. recent GB removal TECHNIQUE: Axial CT abdomen pelvis w con;Sagittal and coronal reformats were created on a separate w orkstation. Contrast used:100ml mL of Isovue 300 with IV Contrast, (none if empty) Oral contrast used: without Oral Contrast (none if empty) FINDINGS: LOWER CHEST: Unremarkable ABDOMEN LIVER: Unremarkable GALLBLADDER AND BILE DUCTS: Gallbladder surgically absent. PANCREAS: Unremarkable. SPLEEN: Unremarkable. ADRENAL GLANDS: Unremarkable. KIDNEYS AND URETERS:Dilation of the right ureter greater than left is slightly increased from prior. No obstructing calculi. No left renal hydronephrosis. PELVIS BLADDER: Unremarkable REPRODUCTIVE: Unremarkable. ABDOMEN & PELVIS STOMACH AND BOWEL: No evidence of bowel obstruction. Postsurgical changes in the gastric lumen. The a bdomen and also the left measuring up to 3.4 cm. PERITONEUM/RETROPERITONEUM: Complex fluid collection in the abdomen with or areas of high density and other areas of lower density with follows around the liver. This is new from 08/21/2023. Largest pocke t of fluid likely representing blood products measures 8.4 x 11.3 cm. Additional pocket of fluid laye ring in the pelvis measuring 10.0 x 7.4 x 10.1 cm. VASCULATURE: No evidence of aortic aneurysm. No blush of contrast within the visualized on this exam to suggest active arterial bleeding. MUSCULOSKELETAL: No acute osseous abnormalities LYMPH NODES: No gross evidence for lymphadenopathy. SOFT TISSUE/ABDOMINAL WALL: Fat-containing umbilical hernia. IMPRESSION: 1. Complex fluid throughout the abdomen most pronounced in the right upper quadrant most compatible with blood products. No definitive active or tracheal extravasation visualized. Correlate with CBC. S uperimposed infection not excluded correlate with patient's clinical status. 2. Dilation of small bowel throughout the abdomen likely representing ileus from #1. There is stool within the colon. 3. Mild right hydroureteronephrosis. This is felt to be secondary to complex fluid in the abdomen. C orrelate with urinalysis.
[2023-08-29 17:10] LABS: HGB 10.2 gm/dL (11.4-16.0)
[2023-08-29 17:26] LABS: Appearance,Urine Clear (Clear); Bilirubin,Urine Negative (Negative); Blood,Urine Negative (Negative); Color,Urine Yellow; Glucose,Urine (UA) Negative (Negative); Hyaline Casts,Urine 4 /lpf (0-2); Ketones,Urine Negative (Negative); Leukocyte Esterase,Urine Moderate (Negative); Mucus,Urine Rare /hpf; Nitrite,Urine Negative (Negative); PH, Urine 5.5 (5.0-8.0); Protein,Urine Trace (Negative); RBC,Urine 2 /hpf (0-5); Squamous Epithelial Cell,Urine 2 /hpf (0-4); WBC,Urine 2 /hpf (0-5)
[2023-08-29 17:46] LABS: Band Neutrophils % 2 %; Lymphocytes # (M) 1.35 k/uL (1.0-4.8); Metamyelocytes # (M) 0.54 k/uL (0); Metamyelocytes % 2 %; Monocytes # (M) 3.23 k/uL (0-1.0); Myelocytes # (M) 0.27 k/uL (0); Myelocytes % 1 %; Neutrophils % (M) 80 %; Nucleated Red Blood Cells 0 /100 WBC (0-0); Total Cells Counted 200
[2023-08-29 19:56] VITALS: BP 129/76; PULSE 107; RESP 18
[2023-08-29] MEDS: AMPICILLIN-SULBACTAM 3 GM in SODIUM CHLORIDE 0.9% 100 ML IVPB STA (19:59)
[2023-08-29] MEDS: HYDROmorphone 1 MG/ML 1 ML SYRINGE IVP STA (21:00)
== END 2023-08-29 21:16 ==
LOC: EC 15:16
DX: G89.18 Other acute postprocedural pain (principal); K52.9 Noninfective gastroenteritis and colitis, unspecified; K56.7 Ileus, unspecified; E86.0 Dehydration; D72.829 Elevated white blood cell count, unspecified; F17.200 Nicotine dependence, unspecified, uncomplicated; Z86.73 Personal history of transient ischemic attack (TIA), and cerebral infarction without residual deficits; Z88.6 Allergy status to analgesic agent; Z88.1 Allergy status to other antibiotic agents; Z91.030 Bee allergy status; Z88.8 Allergy status to other drugs, medicaments and biological substances
CPT/HCPCS: 36415; 80053; 82150; 83605; 83690; 85025; 85610; 85730; 81001; 87040; 74177; 99291; 96365; 96375 ×2; J2405; J1170; J0295; Q9967

== ENCOUNTER 2023-09-21 17:23 | Emergency (ER) | payer OTHER ==
[2023-09-21 17:32] VITALS: TEMP 98.9
--- NOTE | 2023-09-21 18:36 | ED ---
Abdominal Pain HPI - General Chief Complaint: Abdominal Pain Stated Complaint: post op-bleeding from surgical site Time Seen by Provider: 09/21/23 17:33 Source: patient, RN notes reviewed, old records reviewed Mode of arrival: ambulatory Limitations: no limitations - History of Present Illness Initial Comments: This is a 48-year-old female to the ER for evaluation of a complicated recent surgical history, patient comes in for severe abdominal pain and swelling increased mass in the right anterior midline of the right lower quadrant. Patient has severe pain in that area as well MD Complaint: abdominal pain -: days(s) Location: RLQ, suprapubic Radiation: other (Umbilical by surgical incision) Migration to: periumbilical Severity: severe Severity scale (1-10): 9 Consistency: constant Improves With: nothing Worsens With: nothing - Related Data Home Medications Medication Instructions Recorded Confirmed Levothyroxine Sodium [Synthroid] 50 mcg PO DAILY 01/05/14 08/21/23 ALPRAZolam [Xanax] 1 mg PO TID PRN 11/24/17 08/21/23 Pantoprazole Sodium [Protonix] 40 mg PO DAILY 05/28/18 08/21/23 Cyclobenzaprine [Flexeril] 10 mg PO TID PRN 10/29/20 08/21/23 Metoprolol Succinate (ER) [Toprol 25 mg PO DAILY 10/29/20 08/21/23 XL] Atogepant [Qulipta] 60 mg PO DAILY 08/21/21 08/21/23 Ofatumumab [Kesimpta Pen] 20 mg SQ DIRECTED 02/12/22 08/21/23 HYDROcodone/APAP 10-325MG [[place] 1 tab PO QID PRN 02/19/22 08/21/23 10-325] Albuterol Sulfate [Albuterol 2 puff INHALATION RT-Q6H PRN 02/19/23 08/21/23 Sulfate Hfa] Gabapentin [Neurontin] 400 mg PO TID PRN 02/19/23 08/21/23 Albuterol Nebulized [Ventolin 2.5 mg INHALATION RT-QID PRN 08/21/23 08/21/23 Nebulized] Cholecalciferol [Vitamin D3 (25 25 mcg PO DAILY 08/21/23 08/21/23 Mcg = 1000 Iu)] EPINEPHrine (Auto Inject) [Epipen] 0.3 mg IM ONCE PRN 08/21/23 08/21/23 Famotidine [Pepcid] 20 mg PO HS 08/21/23 08/21/23 Fluticasone/Umeclidin/Vilanter 1 puff INHALATION RT-DAILY PRN 08/21/23 08/21/23 [Trelelio Ellipta 100-62.5-25] Ginkgo Biloba [place] Extract [Ginkgo 125 mg PO DAILY 08/21/23 08/21/23 Biloba] Loperamide HCl [Imodium A-D] 2 - 4 mg PO QID PRN 08/21/23 08/21/23 Nicotine 14Mg/24Hr Patch [Habitrol 1 patch TRANSDERM DAILY 08/21/23 08/21/23 14Mg/24Hr Patch] Ondansetron Odt [Zofran Odt] 4 mg PO BID PRN 08/21/23 08/21/23 Pravastatin Sodium [Pravachol] 40 mg PO HS 08/21/23 08/21/23 Promethazine 6.25MG/5Ml [Phenergan 25 mg PO DAILY PRN 08/21/23 08/21/23 Syrup] Risedronate Sodium [Actonel] 35 mg PO WE 08/21/23 08/21/23 Sertraline [Zoloft] 50 mg PO DAILY 08/21/23 08/21/23 Ubrogepant [Ubrelvy] 100 mg PO DAILY PRN 08/21/23 08/21/23 Vitamin A 2,400 mcg PO DAILY 08/21/23 08/21/23 valACYclovir HCL [Valacyclovir] 1,000 mg PO DAILY 08/21/23 08/21/23 Allergies Allergy/AdvReac Type Severity Reaction Status Date / Time bee venom protein (honey bee) Allergy SWELLING , Verified 08/21/23 17:58 AND ITCHING Bleach (Sodium Hypochlorite) Allergy Rash/Hives Verified 08/21/23 17:58 nitrofurantoin Allergy Rash/Hives Verified 08/21/23 17:58 [From Macrobid] nitrofurantoin Allergy Rash/Hives Verified 08/21/23 17:58 macrocrystalline [From Macrobid] moxifloxacin [From Avelox] AdvReac Nausea & Verified 08/21/23 17:58 Vomiting NSAIDS (Non-Steroidal AdvReac Had Verified 08/21/23 17:58 Anti-Inflamma gastric sleeve surgery, causes bleeds. seasonal allergies Allergy congestion Uncoded 08/21/23 17:58 and sneezing Review of Systems ROS Statement: Those systems with pertinent positive or pertinent negative responses have been documented in the HPI. ROS Other: All systems not noted in ROS Statement are negative. Past Medical History Past Medical History: Asthma, COPD, CVA/TIA, GERD/Reflux, Hypertension, Mus culoskeletal Disorder, Neurologic Disorder, Sleep Apnea/CPAP/BIPAP, Thyroid Disorder Additional Past Medical History / Comment(s): smoking-related interstitial lung disease, doesn't use CPAP, history of seizure at the age of 16 related to med. to stop breast milk, endometriosis, chronic back pain, plantar fasciitis, hx. of Achilles tendinitis, probably antibiotic induced. She also has history of hypothyroidism, ALLERGIC rhinitis, migraines, uses oxygen 2L prn, recent iron infusion, MS , tia 2020 no residual issues, needs cholecystetomy, tinnitus, balance issues, History of Any Multi-Drug Resistant Organisms: None Reported Past Surgical History: Bariatric Surgery, Cholecystectomy, Hysterectomy, Tubal Ligation, Uterine Ablation Additional Past Surgical History / Comment(s): LEEP PROCEDURE X 2, EGD, BACK INJECTIONS FOR PAIN. The patient has also undergone thoracic/thoracoscopic wedge biopsy of the right lung. 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; R and Y bypass at [facility] 2019,TRACHEOTOMY-RESOLVED Past Anesthesia/Blood Transfusion Reactions: Motion Sickness Additional Past Anesthesia/Blood Transfusion Reaction / Comment(s): no problem w/blood transfusion Past Psychological History: Anxiety, Depression Smoking Status: Current every day smoker Past Alcohol Use History: None Reported Past Drug Use History: None Reported - Past Family History Sister(s) Family Medical History: Cancer Mother Family Medical History: Cancer Additional Family Medical History / Comment(s): breast cancer Father Family Medical History: COPD, CVA/TIA, Myocardial Infarction ([place]) Additional Family Medical History / Comment(s): HEART PROBLEMS, AT AGE 64 General Exam Limitations: no limitations General appearance: alert, in no apparent distress Head exam: Present: atraumatic, normocephalic, normal inspection Eye exam: Present: normal appearance, PERRL, EOMI. Absent: scleral icterus, conjunctival injection, periorbital swelling ENT exam: Present: normal exam, mucous membranes moist Neck exam: Present: normal inspection. Absent: tenderness, meningismus, lymphadenopathy Respiratory exam: Present: normal lung sounds bilaterally. Absent: respiratory distress, wheezes, rales, rhonchi, stridor Cardiovascular Exam: Present: regular rate, normal rhythm, normal heart sounds. Absent: systolic murmur, diastolic murmur, rubs, gallop, clicks GI/Abdominal exam: Present: soft, normal bowel sounds. Absent: distended, tenderness, guarding, rebound, rigid Extremities exam: Present: normal inspection, full ROM, normal capillary refill. Absent: tenderness, pedal edema, joint swelling, calf tenderness Back exam: Present: normal inspection Neurological exam: Present: alert, oriented X3, CN II-XII intact Psychiatric exam: Present: normal affect, normal mood Skin exam: Present: warm, dry, intact, normal color. Absent: rash Course Vital Signs 09/21/23 09/21/23 09/21/23 17:28 19:37 21:35 Temperature 98.9 F Pulse Rate 97 81 88 Respiratory 20 14 14 Rate Blood Pressure 82/53 111/65 106/64 O2 Sat by Pulse 95 92 L 94 L Oximetry 09/21/23 22:16 Temperature Pulse Rate 92 Respiratory 16 Rate Blood Pressure 111/69 O2 Sat by Pulse 92 L Oximetry - Reevaluation(s) Reevaluation #1: 09/21/23 20:59 Medical records reviewed Reevaluation #2: 09/21/23 20:59 Patient symptoms unchanged Reevaluation #3: 09/21/23 20:59 Patient informed of results questions answered Reevaluation #4: Was pt. sent in by a medical professional or institution (, PA, MULTIFOLD OPERATOR, urgent care, hospital, or alf...) When possible be specific @ -no Did you speak to anyone other than the patient for history (EMS, parent, family, police, friend...)? What history was obtained from this source @ -no Did you review nursing and triage notes (agree or disagree)? Why? @ -agree Are old charts reviewed (outside hosp., previous admission, EMS record, old EKG, old radiological studies, urgent care reports/EKG's, alf records)? Report findings @ -yes Differential Diagnosis (chest pain, altered mental status, abdominal pain women, abdominal pain men, vaginal bleeding, weakness, fever, dyspnea, syncope, headache, dizziness, GI bleed, back pain, seizure, CVA, palpatations, mental health, musculoskeletal)? @ -prior EKG interpreted by me (3pts min.). @ -yes X-rays interpreted by me (1pt min.). @ -no CT interpreted by me (1pt min.). @ -Yes abdominal wall postoperative abscess U/S interpreted by me (1pt. min.). @ -no What testing was considered but not performed or refused? (CT, X-rays, U/S, lab s)? Why? @ -none What meds were considered but not given or refused? Why? @ -none Did you discuss the management of the patient with other professionals (professionals i.e. , PA, MULTIFOLD OPERATOR, lab, RT, psych nurse, social worker assistant, database management specialist, teacher, commissioned police officer, case worker)? Give summary @ -no Was smoking cessation discussed for >3mins.? @ -no Was critical care preformed (if so, how long)? @ -yes31 Were there social determinants of health that impacted care today? How? (Homelessness, low income, unemployed, alcoholism, drug addiction, transportation, low edu. Level, literacy, decrease access to med. care, shelter, rehab)? @ -none Was there de-escalation of care discussed even if they declined (Discuss DNR or withdrawal of care, Hospice)? DNR status @ -no What co-morbidities impacted this encounter? (DM, HTN, Smoking, COPD, CAD, Cancer, CVA, ARF, Chemo, Hep., AIDS, mental health diagnosis, sleep apnea, morbid obesity)? @ -none Was patient admitted / discharged? Hospital course, mention meds given and route, prescriptions, significant lab abnormalities, going to OR and other pertinent info. @ - 48 female to ER for evaluation of increasing slight abdominal pain and abdominal wall swelling. Patient does have persistent and worsening postsurgical abscess with increasing elevated white blood cell count, patient placed on antibiotics and will be transferred back to care surgery Transfer to inpatient hospitalization Undiagnosed new problem with uncertain prognosis? @ -no Drug Therapy requiring intensive monitoring for toxicity (Heparin, Nitro, Insulin, Cardizem)? @ -no Were any procedures done? @ -no Diagnosis/symptom? @ -Abdominal wall edema and abscess Acute, or Chronic, or Acute on Chronic? @ -Acute Uncomplicated (without systemic symptoms) or Complicated (systemic symptoms)? @ -Complicated Side effects of treatment? @ -no Exacerbation, Progression, or Severe Exacerbation? @ -exacerbation Poses a threat to life or bodily function? How? (Chest pain, [place], [place], pneumonia, PE, COPD, DKA, ARF, appy, cholecystitis, CVA, Diverticulitis, Homicidal, Suicidal, threat to staff... and all critical care pts) @ -yes postoperative complication significant Reevaluation #5: Differential Abdominal Pain Women: Appendicitis, Cholecystitis, diverticulosis, ischemic bowel, pancreatitis, hepatitis, UTI, gastroenteritis, AAA, incarcerated hernia, bowel obstruction, constipation, inflammatory bowel, hepatitis, peptic ulcer disease, splenic infarction, perforated viscus, vulvitis, ovarian torsion, PID, kidney stone, placenta abruption, this is not meant to be an all-inclusive list - Consultations Consultation #1: Josefina Barraza who accept transfer of patient Medical Decision Making - Medical Decision Making 48 female to ER for evaluation of increasing slight abdominal pain and abdominal wall swelling. Patient does have persistent and worsening postsurgical abscess with increasing elevated white blood cell count, patient placed on antibiotics a nd will be transferred back to care surgery - Lab Data Result diagrams: 09/21/23 18:08 09/21/23 18:08 Lab Results 09/21/23 09/21/23 09/21/23 Range/Units 18:08 18:08 18:08 WBC 30.3 H (3.8-10.6) k/uL RBC 2.69 L (3.80-5.40) m/uL Hgb 8.5 L D (11.4-16.0) gm/dL Hct 28.4 L (34.0-46.0) % MCV 105.6 H (80.0-100.0) fL MCH 31.7 (25.0-35.0) pg MCHC 30.0 L (31.0-37.0) g/dL RDW 16.2 H (11.5-15.5) % Plt Count 1013 H* (150-450) k/uL MPV 8.6 Neutrophils % 86 % Lymphocytes % 5 % Monocytes % 7 % Eosinophils % 1 % Basophils % 0 % Neutrophils # 26.0 H (1.3-7.7) k/uL Lymphocytes # 1.6 (1.0-4.8) k/uL Monocytes # 2.1 H (0-1.0) k/uL Eosinophils # 0.3 (0-0.7) k/uL Basophils # 0.1 (0-0.2) k/uL Hypochromasia Moderate Anisocytosis Slight Macrocytosis Moderate PT 12.7 H (10.0-12.5) sec INR 1.2 H (<1.2) APTT 33.3 H (22.0-30.0) sec Sodium 136 L (137-145) mmol/L Potassium 4.4 (3.5-5.1) mmol/L Chloride 104 (98-107) mmol/L Carbon Dioxide 30 (22-30) mmol/L Anion Gap 2 mmol/L BUN 8 (7-17) mg/dL Creatinine 0.39 L (0.52-1.04) mg/dL Est GFR (CKD-EPI)AfAm >90 (>60 ml/min/1.73 sqM) Est GFR (CKD-EPI)NonAf >90 (>60 ml/min/1.73 sqM) Glucose 75 (74-99) mg/dL Plasma Lactic Acid Miguel Angel (0.7-2.0) mmol/L Calcium 7.8 L (8.4-10.2) mg/dL Total Bilirubin 0.9 (0.2-1.3) mg/dL AST 46 H (14-36) U/L ALT 21 (4-34) U/L Alkaline Phosphatase 528 H (38-126) U/L Troponin I (0.000-0.034) ng/mL Total Protein 5.5 L (6.3-8.2) g/dL Albumin 2.4 L (3.5-5.0) g/dL Amylase 35 (30-110) U/L Lipase 10 L (23-300) U/L 09/21/23 09/21/23 Range/Units 18:08 18:08 WBC (3.8-10.6) k/uL RBC (3.80-5.40) m/uL Hgb (11.4-16.0) gm/dL Hct (34.0-46.0) % MCV (80.0-100.0) fL MCH (25.0-35.0) pg MCHC (31.0-37.0) g/dL RDW (11.5-15.5) % Plt Count (150-450) k/uL MPV Neutrophils % % Lymphocytes % % Monocytes % % Eosinophils % % Basophils % % Neutrophils # (1.3-7.7) k/uL Lymphocytes # (1.0-4.8) k/uL Monocytes # (0-1.0) k/uL Eosinophils # (0-0.7) k/uL Basophils # (0-0.2) k/uL Hypochromasia Anisocytosis Macrocytosis PT (10.0-12.5) sec INR (<1.2) APTT (22.0-30.0) sec Sodium (137-145) mmol/L Potassium (3.5-5.1) mmol/L Chloride (98-107) mmol/L Carbon Dioxide (22-30) mmol/L Anion Gap mmol/L BUN (7-17) mg/dL Creatinine (0.52-1.04) mg/dL Est GFR (CKD-EPI)AfAm (>60 ml/min/1.73 sqM) Est GFR (CKD-EPI)NonAf (>60 ml/min/1.73 sqM) Glucose (74-99) mg/dL Plasma Lactic Acid [place] 0.9 (0.7-2.0) mmol/L Calcium (8.4-10.2) mg/dL Total Bilirubin (0.2-1.3) mg/dL AST (14-36) U/L ALT (4-34) U/L Alkaline Phosphatase (38-126) U/L Troponin I <0.012 (0.000-0.034) ng/mL Total Protein (6.3-8.2) g/dL Albumin (3.5-5.0) g/dL Amylase (30-110) U/L Lipase (23-300) U/L - EKG Data -: EKG Interpreted by Me (EKG is sinus 86 MD 131 QRS 90 QTc 414) - Radiology Data Radiology results: report reviewed (CT of the abdomen and Pelvis does show persistent intra-abdominal abscess), image reviewed Critical Care Time Critical Care Time: Yes Total Critical Care Time: 31 Disposition Clinical Impression: Postoperative abdominal pain, Leukocytosis, Abscess of abdominal cavity, Anemia, Abdominal abscess Disposition: OTHER INSTITUTION NOT DEFINED Condition: Serious Is patient prescribed a controlled substance at d/c from ED?: No Referrals: Keven Kebede MD [Primary Care Provider] - 1-2 days Time of Disposition: 20:50 - Out of Hospital Transfer - Req. Specs Out of Hospital Transfer - Requested Specifics: Other Emergency Center ([facility])
[2023-09-21 18:51] LABS: ALT 21 U/L (4-34); African American GFR (CKD) >90 (>60 ml/min/1.73 sqM); Amylase 35 U/L (30-110); Anion Gap 2 mmol/L; Blood Urea Nitrogen 8 mg/dL (7-17); Calcium 7.8 mg/dL (8.4-10.2); Carbon Dioxide 30 mmol/L (22-30); Chloride 104 mmol/L (98-107); Glucose 75 mg/dL (74-99); Lipase 10 U/L (23-300); Non-African American GFR(CKD) >90 (>60 ml/min/1.73 sqM); Sodium 136 mmol/L (137-145); Total Bilirubin 0.9 mg/dL (0.2-1.3)
[2023-09-21 18:57] LABS: INR 1.2 (<1.2); Partial Thromboplastin Time 33.3 sec (22.0-30.0); Prothrombin Time 12.7 sec (10.0-12.5)
[2023-09-21 19:14] LABS: AST 46 U/L (14-36); Albumin 2.4 g/dL (3.5-5.0); Alkaline Phosphatase 528 U/L (38-126); Potassium 4.4 mmol/L (3.5-5.1); Total Protein 5.5 g/dL (6.3-8.2)
[2023-09-21 19:21] LABS: Anisocytosis Slight; Basophils # (A) 0.1 k/uL (0-0.2); Basophils % (A) 0 %; Eosinophils # (A) 0.3 k/uL (0-0.7); Eosinophils % (A) 1 %; HCT 28.4 % (34.0-46.0); Hypochromasia Moderate; Lymphocytes # (A) 1.6 k/uL (1.0-4.8); Lymphocytes % (A) 5 %; MCH 31.7 pg (25.0-35.0); MCV 105.6 fL (80.0-100.0); Macrocytosis Moderate; Mean Platelet Volume 8.6; Monocytes # (A) 2.1 k/uL (0-1.0); Monocytes % (A) 7 %; Neutrophils % (A) 86 %; RBC 2.69 m/uL (3.80-5.40); RDW 16.2 % (11.5-15.5); WBC 30.3 k/uL (3.8-10.6)
[2023-09-21] MEDS: SODIUM CHLORIDE 0.9% 1,000 ML IV STA (19:27)
[2023-09-21] MEDS: ONDANSETRON 4 MG/2 ML VIAL IVP STA (19:27)
[2023-09-21] MEDS: PANTOPRAZOLE 40 MG/10 ML VIAL IVP STA (19:28)
[2023-09-21] MEDS: MORPHINE SULFATE 4 MG/ML SYRINGE IVP STA (19:28)
[2023-09-21 19:32] LABS: Platelet Count 1013 k/uL (150-450)
--- NOTE | 2023-09-21 20:25 | CT ---
EXAMINATION TYPE: CT abdomen pelvis w con CT DLP: 486.7 mGycm, Automated exposure control for dose reduction was used. DATE OF EXAM: 09/21/2023 8:06 PM COMPARISON: CT abdomen pelvis most recent from 08/29/2023 CLINICAL INDICATION:Female, 48 years old with history of abdominal pain; Recent cholecystectomy, pt i s having swelling, bleeding and discharge coming surgical wound. TECHNIQUE: Axial CT abdomen pelvis w con;Sagittal and coronal reformats were created on a separate w orkstation. Contrast used:100ml mL of Isovue 300 with IV Contrast, (none if empty) Oral contrast used: without Oral Contrast (none if empty) FINDINGS: LOWER CHEST: Unremarkable ABDOMEN LIVER: Unremarkable GALLBLADDER AND BILE DUCTS: Surgical changes the gallbladder with cystic duct remnant and/or subtotal cholecystectomy with cystic structure measuring 17 mm in the gallbladder fossa. Dilation of the extr ahepatic biliary system. PANCREAS: Unremarkable. SPLEEN: Unremarkable. ADRENAL GLANDS: Unremarkable. KIDNEYS AND URETERS: No evidence of hydronephrosis or renal calculus. The ureters are unremarkable. PELVIS BLADDER: Unremarkable REPRODUCTIVE: Uterus surgically absent. ABDOMEN & PELVIS STOMACH AND BOWEL: No evidence of bowel obstruction. PERITONEUM/RETROPERITONEUM: No evidence of pneumoperitoneum or free fluid. VASCULATURE: No evidence of aortic aneurysm. MUSCULOSKELETAL: No acute osseous abnormalities LYMPH NODES: No gross evidence for lymphadenopathy. SOFT TISSUE/ABDOMINAL WALL: Subcutaneous fluid collection measuring 57 x 31 mm with some mild periphe ral enhancement which appears to extend into the abdominal cavity where it measures a 9 x 44 mm. Whic h is smaller than prior. A Fingerlike extension extends down in between the bowel towards the posteri or aspect of the uterus surgical bed/vagina. Fluid collection posterior uterus now small compared to prior on 08/29/2023. Intra-abdominal fluid collection in the right upper quadrant also decreased in si ze from prior.. IMPRESSION: Subcutaneous fluid collection which is thought to extend through the anterior abdominal wall where th ere is a large intra-abdominal abscess which as a fingerlike extension that extends towards the pelvi s.
[2023-09-21 20:34] LABS: HGB 8.5 gm/dL (11.4-16.0)
[2023-09-21] MEDS: AMPICILLIN-SULBACTAM 3 GM in SODIUM CHLORIDE 0.9% 100 ML IVPB STA (22:08)
[2023-09-21 22:19] VITALS: BP 111/69; PULSE 92; RESP 16
== END 2023-09-21 22:19 | disposition other institution (70) ==
LOC: EC 17:23
DX: G89.18 Other acute postprocedural pain (principal); D72.829 Elevated white blood cell count, unspecified; K65.1 Peritoneal abscess; D64.9 Anemia, unspecified; F17.200 Nicotine dependence, unspecified, uncomplicated; Z88.1 Allergy status to other antibiotic agents; Z88.6 Allergy status to analgesic agent; Z91.030 Bee allergy status; Z91.09 Other allergy status, other than to drugs and biological substances; Z88.8 Allergy status to other drugs, medicaments and biological substances; Z90.49 Acquired absence of other specified parts of digestive tract
CPT/HCPCS: 99291; 36415; 93005; 80053; 82150; 83605; 83690; 84484; 85025; 85610; 85730; 87040; 74177; 96374; 96375 ×3; 96361; J2270; J2405; J0295; C9113; Q9967

== ENCOUNTER 2023-09-30 19:19 | Inpatient (IN) | payer MEDICARE, OTHER ==
--- NOTE | 2023-09-30 19:47 | ED ---
General Adult HPI - General Source: patient, family, RN notes reviewed <Tracy Tanner - Last Filed: 09/30/23 19:45> - General Source: RN notes reviewed, old records reviewed Mode of arrival: ambulatory Limitations: no limitations - History of Present Illness -: days(s) Location: left, right, lower extremity Radiation: non-radiation Quality: aching, crushing Consistency: constant Improves with: none Worsens with: none Associated Symptoms: denies other symptoms Treatments Prior to Arrival: none (q) <Ganesh Sylvester - Last Filed: 10/11/23 00:40> - General Stated complaint: bilateral leg swelling, SOB Time Seen by Provider: 09/30/23 19:30 - History of Present Illness Initial comments: Quick Note-this is a 48-year-old female presents emergency department chief complaint of bilateral lower extremity edema. 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 States that she noticed the swelling of her legs up about 2 days ago. She is also endorsing mild dyspnea on exertion. She denies history of DVT, PE, CHF. Is not on blood thinners. (Tracy Tanner) This is a 48-year-old female to the ER for evaluation of lower extremity edema. Patient has significant swelling of both legs concern for leg edema as well as shortness of breath. No history of CHF. Patient did have multiple recent abdominal surgeries with no current abdominal pain (Ganesh Sylvester) - Related Data Home Medications Medication Instructions Recorded Confirmed Levothyroxine Sodium [Synthroid] 50 mcg PO DAILY 01/05/14 10/01/23 ALPRAZolam [Xanax] 1 mg PO DAILY PRN 11/24/17 10/01/23 Pantoprazole Sodium [Protonix] 40 mg PO DAILY 05/28/18 10/01/23 Cyclobenzaprine [Flexeril] 10 mg PO BID PRN 10/29/20 10/01/23 Metoprolol Succinate (ER) [Toprol 12.5 mg PO DAILY 10/29/20 10/01/23 XL] Atogepant [Qulipta] 60 mg PO DAILY 08/21/21 10/01/23 Ofatumumab [Kesimpta Pen] 20 mg SQ Q30D 02/12/22 10/01/23 HYDROcodone/APAP 10-325MG [[place] 1 tab PO QID PRN 02/19/22 10/01/23 10-325] Albuterol Sulfate [Albuterol 2 puff INHALATION RT-Q6H PRN 02/19/23 10/01/23 Sulfate Hfa] Gabapentin [Neurontin] 400 mg PO TID PRN 02/19/23 10/01/23 Albuterol Nebulized [Ventolin 2.5 mg INHALATION RT-QID PRN 08/21/23 10/01/23 Nebulized] Cholecalciferol [Vitamin D3 (25 25 mcg PO DAILY 08/21/23 10/01/23 Mcg = 1000 Iu)] Famotidine [Pepcid] 20 mg PO HS 08/21/23 10/01/23 Fluticasone/Umeclidin/Vilanter 1 puff INHALATION RT-DAILY PRN 08/21/23 10/01/23 [Trelegy Ellipta 100-62.5-25] Ginkgo Biloba [place] Extract [Ginkgo 125 mg PO DAILY 08/21/23 10/01/23 Biloba] Loperamide HCl [Imodium A-D] 2 - 4 mg PO QID PRN 08/21/23 10/01/23 Nicotine 14Mg/24Hr Patch [Habitrol] 1 patch TRANSDERM DAILY 08/21/23 10/01/23 Pravastatin Sodium [Pravachol] 40 mg PO HS 08/21/23 10/01/23 Promethazine 6.25MG/5Ml [Phenergan 25 mg PO DAILY PRN 08/21/23 10/01/23 Syrup] Risedronate Sodium [Actonel] 35 mg PO WE 08/21/23 10/01/23 Sertraline [Zoloft] 50 mg PO DAILY 08/21/23 10/01/23 Ubrogepant [Ubrelvy] 100 mg PO DAILY PRN 08/21/23 10/01/23 Vitamin A 2,400 mcg PO DAILY 08/21/23 10/01/23 Previous Rx's Medication Instructions Recorded Budesonide-Formot 160-4.5 Mcg 2 puff INHALATION RT-BID #1 each 10/06/23 [Symbicort 160-4.5 Mcg Inhaler] Furosemide [Lasix] 40 mg PO DAILY #30 tab 10/06/23 Levofloxacin [Levaquin] 750 mg PO ONCE #10 tab 10/06/23 Nystatin 100,000 Unit/ml Susp 5 ml PO QID #140 ml 10/06/23 [Mycostatin Oral Susp] methylPREDNISolone Dose Pack 24 mg PO DAILY #1 tab 10/06/23 [Medrol Dose Pack] metroNIDAZOLE [Flagyl] 500 mg PO TID #30 tab 10/06/23 Allergies Allergy/AdvReac Type Severity Reaction Status Date / Time bee venom protein (honey bee) Allergy SWELLING , Verified 09/30/23 20:06 AND ITCHING Bleach (Sodium Hypochlorite) Allergy Rash/Hives Verified 09/30/23 20:06 nitrofurantoin Allergy Rash/Hives Verified 09/30/23 20:06 [From Macrobid] nitrofurantoin Allergy Rash/Hives Verified 09/30/23 20:06 macrocrystalline [From Macrobid] moxifloxacin [From Avelox] AdvReac Nausea & Verified 09/30/23 20:06 Vomiting NSAIDS (Non-Steroidal AdvReac Had Verified 09/30/23 20:06 Anti-Inflamma gastric sleeve surgery, causes bleeds. seasonal allergies Allergy congestion Uncoded 09/30/23 20:06 and sneezing Review of Systems ROS Other: All systems not noted in ROS Statement are negative. <Tracy Tanner - Last Filed: 09/30/23 19:45> ROS Other: All systems not noted in ROS Statement are negative. <Ganesh Sylvester - Last Filed: 10/11/23 00:40> ROS Statement: Those systems with pertinent positive or pertinent negative responses have been documented in the HPI. Past Medical History Past Medical History: Asthma, COPD, CVA/TIA, GERD/Reflux, Hypertension, Musculoskeletal Disorder, Neurologic Disorder, Sleep Apnea/CPAP/BIPAP, Thyroid Disorder Additional Past Medical History / Comment(s): smoking-related interstitial lung disease, doesn't use CPAP, history of seizure at the age of 16 related to med. to stop breast milk, endometriosis, chronic back pain, plantar fasciitis, hx. of Achilles tendinitis, probably antibiotic induced. She also has history of hypothyroidism, ALLERGIC rhinitis, migraines, uses oxygen 2L prn, recent iron infusion, MS , tia 2020 no residual issues, needs cholecystetomy, tinnitus, balance issues, History of Any Multi-Drug Resistant Organisms: None Reported Past Surgical History: Bariatric Surgery, Cholecystectomy, Hysterectomy, Tubal Ligation, Uterine Ablation Additional Past Surgical History / Comment(s): LEEP PROCEDURE X 2, EGD, BACK INJECTIONS FOR PAIN. The patient has also undergone thoracic/thoracoscopic wedge biopsy of the right lung. 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; R and Y bypass at [facility] 2019,TRACHEOTOMY-RESOLVED Past Anesthesia/Blood Transfusion Reactions: Motion Sickness Additional Past Anesthesia/Blood Transfusion Reaction / Comment(s): no problem w/blood transfusion Past Psychological History: Anxiety, Depression Smoking Status: Current every day smoker Past Alcohol Use History: None Reported Past Drug Use History: None Reported - Past Family History Sister(s) Family Medical History: Cancer Mother Family Medical History: Cancer Additional Family Medical History / Comment(s): breast cancer Father Family Medical History: COPD, CVA/TIA, Myocardial Infarction (ID) Additional Family Medical History / Comment(s): HEART PROBLEMS, AT AGE 64 <Tracy Tanner - Last Filed: 09/30/23 19:45> General Exam <Tracy Tanner - Last Filed: 09/30/23 19:45> Limitations: altered mental status General appearance: alert, anxious, in distress Head exam: Present: atraumatic, normocephalic, normal inspection Eye exam: Present: normal appearance, PERRL, EOMI. Absent: scleral icterus, conjunctival injection, periorbital swelling ENT exam: Present: normal exam, mucous membranes moist Neck exam: Present: normal inspection. Absent: tenderness, meningismus, lymphadenopathy Respiratory exam: Present: respiratory distress, wheezes. Absent: rales, rhonchi, stridor Cardiovascular Exam: Present: regular rate, normal rhythm, normal heart sounds. Absent: systolic murmur, diastolic murmur, rubs, gallop, clicks GI/Abdominal exam: Present: soft, normal bowel sounds. Absent: distended, tenderness, guarding, rebound, rigid Extremities exam: Present: normal inspection, full ROM, normal capillary refill. Absent: tenderness, pedal edema, joint swelling, calf tenderness Back exam: Present: normal inspection Neurological exam: Present: alert, oriented X3, CN II-XII intact Psychiatric exam: Present: normal affect, normal mood Skin exam: Present: warm, dry, intact, normal color. Absent: rash <Ganesh Sylvester - Last Filed: 10/11/23 00:40> - General Exam Comments Initial Comments: Visual Physical Exam Vital signs reviewed General: Well-appearing, nontoxic, no acute distress. Head: Normocephalic, atraumatic Eyes: PERRLA, EOMI ENT: Airway patent Chest: Nonlabored breathing Skin: No visual rash, normal skin tone Neuro: Alert and oriented 3 Musculoskeletal: No gross abnormalities (Stieler,Tracy) Course <Ganesh Sylvester - Last Filed: 10/11/23 00:40> Vital Signs 09/30/23 09/30/23 09/30/23 20:02 23:06 23:24 Temperature 98.0 F Pulse Rate 76 90 94 Respiratory 20 18 Rate Blood Pressure 91/53 115/65 O2 Sat by Pulse 80 L 97 Oximetry 09/30/23 10/01/23 10/01/23 23:31 01:28 04:35 Temperature Pulse Rate 96 80 95 Respiratory 18 18 Rate Blood Pressure 114/70 98/53 O2 Sat by Pulse 93 L 94 L Oximetry - Reevaluation(s) Reevaluation #1: 09/30/23 22:23 Medical record has been reviewed (Ganesh Sylvester) Reevaluation #2: 09/30/23 22:24 Patient symptoms are persistent here in the emergency room (Ganesh Sylvester ) Reevaluation #3: 09/30/23 22:24 Patient informed of results questions answered (Ganesh Sylvester) Reevaluation #4: Was pt. sent in by a medical professional or institution (, PA, INVESTOR, urgent care, hospital, or retirement...) When possible be specific @ -no Did you speak to anyone other than the patient for history (EMS, parent, family, police, friend...)? What history was obtained from this source @ -no Did you review nursing and triage notes (agree or disagree)? Why? @ -agree Are old charts reviewed (outside hosp., previous admission, EMS record, old EKG, old radiological studies, urgent care reports/EKG's, retirement records)? Report findings @ -yes Differential Diagnosis (chest pain, altered mental status, abdominal pain women, abdominal pain men, vaginal bleeding, weakness, fever, dyspnea, syncope, headache, dizziness, GI bleed, back pain, seizure, CVA, palpatations, mental health, musculoskeletal)? @ -prior EKG interpreted by me (3pts min.). @ -yes X-rays interpreted by me (1pt min.). @ -yes significant for pneumonia CT interpreted by me (1pt min.). @ -Yes significant for pneumonia U/S interpreted by me (1pt. min.). @ -no What testing was considered but not performed or refused? (CT, X-rays, U/S, labs)? Why? @ -none What meds were considered but not given or refused? Why? @ -none Did you discuss the management of the patient with other professionals (professionals i.e. , PA, INVESTOR, lab, RT, psych nurse, social worker assistant, inspector shells, teacher, special officer, supervisor case loading)? Give summary @ -no Was smoking cessation discussed for >3mins.? @ -no Was critical care preformed (if so, how long)? @ -yes31 Were there social determinants of health that impacted care today? How? (Homelessness, low income, unemployed, alcoholism, drug addiction, transportation, low edu. Level, literacy, decrease access to med. care, shelter, rehab)? @ -none Was there de-escalation of care discussed even if they declined (Discuss DNR or withdrawal of care, Hospice)? DNR status @ -no What co-morbidities impacted this encounter? (DM, HTN, Smoking, COPD, CAD, Cancer, CVA, ARF, Chemo, Hep., AIDS, mental health diagnosis, sleep apnea, morbid obesity)? @ -none Was patient admitted / discharged? Hospital course, mention meds given and route, prescriptions, significant lab abnormalities, going to OR and other pertinent info. @ - 48 female to the ER for evaluation patient at this time will be admitted for elevation of white blood cell count concern for cause of elevated white blood cell count, patient does have pneumonia on x-ray will start on antibiotics Admitted Undiagnosed new problem with uncertain prognosis? @ -no Drug Therapy requiring intensive monitoring for toxicity (Heparin, Nitro, Ins ulin, Cardizem)? @ -no Were any procedures done? @ -no Diagnosis/symptom? @ -Pneumonia with hypoxia Acute, or Chronic, or Acute on Chronic? @ -Acute Uncomplicated (without systemic symptoms) or Complicated (systemic symptoms)? @ -Complicated Side effects of treatment? @ -no Exacerbation, Progression, or Severe Exacerbation? @ -exacerbation Poses a threat to life or bodily function? How? (Chest pain, USA, ID, pneumonia, PE, COPD, DKA, ARF, appy, cholecystitis, CVA, Diverticulitis, Homicidal, Suicidal, threat to staff... and all critical care pts) @ -yes significant hypoxia with pneumonia (Ganesh Sylvester) Reevaluation #5: Differential Weakness: Hypoglycemia, shock, sepsis, hyponatremia, anemia, infection, ID, ETOH, adverse medicine reaction, overdose, stroke, this is not meant to be an all-inclusive list. (Ganesh Sylvester) - Consultations Consultation #1: Spoke with Dr. Kebede who agrees to admit this patient (Ganesh Sylvester) Medical Decision Making <Tracy Tanner - Last Filed: 09/30/23 19:45> - Lab Data Result diagrams: 10/05/23 09:49 10/04/23 12:39 - Radiology Data Radiology results: report reviewed (Chest x-ray is positive for pneumonia, US is negative for acute disase), image reviewed <Ganesh Sylvester - Last Filed: 10/11/23 00:40> - Medical Decision Making I completed the quick note portion of this chart signed Tracy Tanner PA-C (Tracy Tanner) 48 female to the ER for evaluation patient at this time will be admitted for elevation of white blood cell count concern for cause of elevated white blood cell count, patient does have pneumonia on x-ray will start on antibiotics (Ganesh Sylvester) - Lab Data Lab Results 09/30/23 09/30/23 Range/Units 20:54 20:54 WBC 33.9 H (3.8-10.6) k/uL RBC 3.05 L (3.80-5.40) m/uL Hgb 9.8 L (11.4-16.0) gm/dL Hct 32.2 L (34.0-46.0) % MCV 105.7 H (80.0-100.0) fL MCH 32.0 (25.0-35.0) pg MCHC 30.3 L (31.0-37.0) g/dL RDW 15.6 H (11.5-15.5) % Plt Count 1070 H* (150-450) k/uL MPV 8.0 Neutrophils % (Manual) 86 % Lymphocytes % (Manual) 11 % Monocytes % (Manual) 4 % Neutrophils # (Manual) 29.15 H (1.3-7.7) k/uL Lymphocytes # (Manual) 3.73 (1.0-4.8) k/uL Monocytes # (Manual) 1.36 H (0-1.0) k/uL Nucleated RBCs 0 (0-0) /100 WBC Manual Slide Review Performed Hypochromasia Marked Poikilocytosis (manual Present Macrocytosis Moderate PT 12.3 (10.0-12.5) sec INR 1.1 (<1.2) APTT 30.4 H (22.0-30.0) sec Critical Care Time Critical Care Time: Yes Total Critical Care Time: 31 <Ganesh Sylvester - Last Filed: 10/11/23 00:40> Disposition <Tracy Tanner - Last Filed: 09/30/23 19:45> Is patient prescribed a controlled substance at d/c from ED?: No Time of Disposition: 22:20 <Ganesh Sylvester - Last Filed: 10/11/23 00:40> Clinical Impression: CAP (community acquired pneumonia), Pneumonia, Sepsis, Hypoxia Disposition: ADMITTED IP TO THIS HOSP Condition: Fair
[2023-09-30 21:06] LABS: HCT 32.2 % (34.0-46.0); HGB 9.8 gm/dL (11.4-16.0); Hypochromasia Marked; MCHC 30.3 g/dL (31.0-37.0); MCV 105.7 fL (80.0-100.0); Macrocytosis Moderate; RBC 3.05 m/uL (3.80-5.40); RDW 15.6 % (11.5-15.5); WBC 33.9 k/uL (3.8-10.6)
[2023-09-30 21:09] LABS: Platelet Count 1070 k/uL (150-450)
[2023-09-30 21:20] LABS: INR 1.1 (<1.2); Partial Thromboplastin Time 30.4 sec (22.0-30.0); Prothrombin Time 12.3 sec (10.0-12.5)
--- NOTE | 2023-09-30 21:30 | XR ---
EXAMINATION TYPE: XR chest 2V DATE OF EXAM: 09/30/2023 COMPARISON: Of 02/18/2023 TECHNIQUE: PA and lateral views submitted. HISTORY: Edema, shortness of breath FINDINGS: Underlying emphysematous changes with coarsened interstitium likely in the basis of pulmonary fibrosi s. Suspect overlying soft tissue artifact the lung bases. There is subsegmental changes along the lat eral margin of the left lower lobe. Surgical clips in the upper abdomen. There is no sizable pleural effusion or pneumothorax. Atherosclerotic change of the aorta. Osseous structures demonstrate hypertr ophic and degenerative changes of the spine. IMPRESSION: 1. Diffuse interstitial pattern suggestive of pulmonary fibrosis. Mild superimposed pneumonitis not e xcluded. 2. Left lower lobe subsegmental atelectasis favored over early pneumonia correlate clinically..
[2023-09-30 21:48] LABS: Lymphocytes # (M) 3.73 k/uL (1.0-4.8); Monocytes # (M) 1.36 k/uL (0-1.0); Neutrophils # (M) 29.15 k/uL (1.3-7.7); Neutrophils % (M) 86 %; Nucleated Red Blood Cells 0 /100 WBC (0-0); Total Cells Counted 200
[2023-09-30 21:49] LABS: Poikilocytosis (M) Present
[2023-09-30] MEDS ORDERED: NALOXONE 0.4 MG/ML 1 ML VIAL IV PRN (22:15)
[2023-09-30] MEDS ORDERED: PNEUMONIA PROTOCOL UTILIZED 1 EACH MISC PO PRN (22:17)
[2023-09-30] MEDS: IPRATROPIUM-ALBUTEROL 3 ML NEB INHALATION STA (23:21)
--- NOTE | 2023-10-01 | US ---
EXAM: US Duplex Bilateral Lower Extremities Veins CLINICAL HISTORY: ITS.REASON US Reason: dvt TECHNIQUE: Real-time duplex ultrasound scan of the bilateral lower extremity veins integrating B-mode two-dimensional vascular structure, Doppler spectral analysis, color flow Doppler imaging and compression. COMPARISON: No relevant prior studies available. FINDINGS: Right deep veins: Unremarkable. No DVT in the right common femoral, femoral, proximal deep femoral or popliteal veins. The veins demonstrate normal color flow, are normally compressible, with normal phasic flow and/or augmentation response. Right superficial veins: Unremarkable. No thrombus in the visualized right great saphenous vein. Left deep veins: Unremarkable. No DVT in the left common femoral, femoral, proximal deep femoral or popliteal veins. The veins demonstrate normal color flow, are normally compressible, with normal phasic flow and/or augmentation response. Left superficial veins: Unremarkable. No thrombus in the visualized left great saphenous vein. Soft tissues: No acute findings. IMPRESSION: No evidence of acute DVT.
[2023-10-01] MEDS: MORPHINE SULFATE 4 MG/ML SYRINGE IV PRN (01:39)
[2023-10-01] MEDS: SODIUM CHLORIDE 0.9% 1,000 ML IV SCH (01:39)
[2023-10-01] MEDS: ONDANSETRON 4 MG/2 ML VIAL IVP PRN (01:40)
[2023-10-01 02:45] LABS: ALT 19 U/L (4-34); AST 76 U/L (14-36); African American GFR (CKD) >90 (>60 ml/min/1.73 sqM); Albumin 2.6 g/dL (3.5-5.0); Alkaline Phosphatase 449 U/L (38-126); Anion Gap 7 mmol/L; Blood Urea Nitrogen 8 mg/dL (7-17); Calcium 7.6 mg/dL (8.4-10.2); Carbon Dioxide 21 mmol/L (22-30); Chloride 105 mmol/L (98-107); Glucose 80 mg/dL (74-99); Magnesium 1.7 mg/dL (1.6-2.3); Non-African American GFR(CKD) >90 (>60 ml/min/1.73 sqM); Sodium 133 mmol/L (137-145); Total Protein 5.8 g/dL (6.3-8.2)
[2023-10-01 02:54] LABS: NT-Pro-B-Type Natriuretic Pept 867 pg/mL
[2023-10-01 02:56] LABS: Potassium 5.2 mmol/L (3.5-5.1)
[2023-10-01] MEDS: AZITHROMYCIN 500 MG in SODIUM CHLORIDE 0.9% 250 ML IVPB STA (05:14)
[2023-10-01] MEDS: ALBUTEROL NEBULIZED 2.5 MG/3 ML INHALATION SCH (08:01)
[2023-10-01] MEDS: PANTOPRAZOLE 40 MG/10 ML VIAL IV SCH (08:11)
[2023-10-01] MEDS: SODIUM CHLORIDE 0.9% 1,000 ML IV ONE (08:18)
[2023-10-01 08:21] LABS: Potassium 3.7 mmol/L (3.5-5.1)
[2023-10-01 08:22] LABS: ALT 14 U/L (4-34); AST 29 U/L (14-36); African American GFR (CKD) >90 (>60 ml/min/1.73 sqM); Alkaline Phosphatase 375 U/L (38-126); Anion Gap 1 mmol/L; Blood Urea Nitrogen 5 mg/dL (7-17); Calcium 7.4 mg/dL (8.4-10.2); Carbon Dioxide 26 mmol/L (22-30); Chloride 109 mmol/L (98-107); Glucose 75 mg/dL (74-99); Magnesium 1.5 mg/dL (1.6-2.3); Non-African American GFR(CKD) >90 (>60 ml/min/1.73 sqM); Phosphorus 3.3 mg/dL (2.5-4.5); Sodium 136 mmol/L (137-145); Total Bilirubin 0.3 mg/dL (0.2-1.3); Total Protein 4.6 g/dL (6.3-8.2)
[2023-10-01 08:31] LABS: Basophils # (A) 0.1 k/uL (0-0.2); Basophils % (A) 0 %; Eosinophils # (A) 0.9 k/uL (0-0.7); Eosinophils % (A) 4 %; HCT 24.1 % (34.0-46.0); Hypochromasia Marked; Lymphocytes # (A) 2.3 k/uL (1.0-4.8); Lymphocytes % (A) 9 %; MCH 33.6 pg (25.0-35.0); MCHC 31.9 g/dL (31.0-37.0); MCV 105.4 fL (80.0-100.0); Macrocytosis Moderate; Mean Platelet Volume 7.6; Monocytes # (A) 2.2 k/uL (0-1.0); Monocytes % (A) 9 %; Neutrophils # (A) 19.4 k/uL (1.3-7.7); Neutrophils % (A) 77 %; Platelet Count 917 k/uL (150-450); RBC 2.29 m/uL (3.80-5.40); RDW 15.9 % (11.5-15.5)
[2023-10-01 08:39] LABS: HGB 7.7 gm/dL (11.4-16.0)
--- NOTE | 2023-10-01 13:20 | XR ---
EXAMINATION TYPE: XR chest 1V portable DATE OF EXAM: 10/01/2023 COMPARISON: 09/30/2023 HISTORY: Shortness of breath TECHNIQUE: Single frontal view of the chest is obtained. FINDINGS: Underlying emphysematous changes with coarsened interstitium likely in the basis of pulmon sam fibrosis. Suspect overlying soft tissue artifact the lung bases. There is subsegmental changes al raquel the lateral margin of the left lower lobe. Surgical clips in the upper abdomen. There is no sizab le pleural effusion or pneumothorax. Atherosclerotic change of the aorta. Osseous structures demonstr ate hypertrophic and degenerative changes of the spine. IMPRESSION: 1. Diffuse interstitial pattern suggestive of pulmonary fibrosis. Mild superimposed interstitial pneu monitis not excluded. 2. Lower lobe subsegmental atelectasis favored over pneumonia.
[2023-10-01] MEDS ORDERED: PROMETHAZINE HCL 6.25 MG/5 ML CUP PO PRN (14:28)
[2023-10-01] MEDS ORDERED: Ubrogepant [Ubrelvy] 100 MG Tablet PO PRN (14:28)
[2023-10-01] MEDS ORDERED: IPRATROPIUM 0.5 MG/2.5 ML NEBU INHALATION PRN (14:47)
[2023-10-01] MEDS: HYDROcodone/APAP 10-325MG 1 EACH TAB PO PRN (14:55)
--- NOTE | 2023-10-01 15:38 | P.CONS ---
History of Present Illness - Reason for Consult Consult date: 10/01/23 leukocytosis, thrombocytosis Requesting physician: Keven Kebede - Chief Complaint leg swelling - History of Present Illness Ms. Rangel is a very pleasant 48-year-old female, patient of Dr. Vasquez, who is here for leg swelling. Workup including chest x-ray and lower extremity Doppler unremarkable other than possible pneumonia, started on antibiotics. Blood work revealed a WBC of 33.9, hemoglobin 9.8, platelets 1070. MCV 105. We were consulted for her severe leukocytosis and thrombocytosis. Repeat CBC with slightly improved counts, WBC 25 and platelets 917. Patient has a longstanding history of leukocytosis and thrombocytosis. Evaluated by Dr. Vasquez in the past and extensive workup was overall unremarkable. 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 Also with a history of iron deficiency due to menorrhagia, received IV iron in 2021. She was last seen by Dr. Vasquez in 2021. Blood work since at least 2017 has showed that her white count and platelets have been high, platelets mostly around [id number]. Pt admits to having hysterectomy in 05/2023, and more recently having cholecystectomy in early-mid 08/2023. Seems to be having difficulty with wound healing, and has open wound that is packed. Not taking iron pills. Hematology history: Ms Rangel is a pleasant white female, with a very complicated past medical and surgical history. Patient has a long-standing history of smoking, about a pack a day since age 11, as well as COPD requiring treatment for exacerbations on a regular basis. The patient had a gastric sleeve procedure in 03/05. This was complicated by intra-abdominal hemorrhage in 04/04 requiring is definitely laparotomy and splenectomy. She then had postoperative ARDS requiring mechanical ventilation including tracheostomy placement. In 05/06 she developed a leak from a gastric sleeve which was repaired via advanced endoscopic procedures. Unfortunately the patient then developed juanito gastric abscesses. She was treated with radiation placement and IV antibiotics. However she then again had to be admitted because of development of sepsis requiring further drains and prolonged IV antibiotics and hospitalization. She was finally able to be discharged in mid 2018. Since then the patient has had issues with periodic COPD exacerbations, requiring treatment with steroids on a fairly regular basis. She was referred here because of persistent elevation of WBC and platelets. For reference, in 02/05, WBC was 22.27, hemoglobin 12.6 and platelets 694. Differential showed neutrophil predominance with ANC of 19.07. Minimal elevation of eosinophils were seen. Subsequently in 02/05 WBC was 31.21 with similar differential pattern, with ANC of 26.99. At that time the patient was also being evaluated for possible cholecystitis. She was on steroids because of COPD exacerbation. The patient states that she has had a history of WBC elevation even prior to her bariatric surgery. She states that she had a bone marrow aspiration biopsy in her 20s which was negative. The patient states that she was smoking at that time. She is premenopausal and also reports heavy periods ultimately requiring uterine ablation in late 2020. Ultrasound of the abdomen in 11/05 showed a large gallbladder and CBD with sludge. Chest x-ray in 02/05 had shown mild interstitial opacities in bilateral mid to lower zones suggestive of viral pneumonia. Bronchioloalveolar lavage via bronchoscopy in 01/06 had shown some minimal blood and inflammatory cells. It appear that the patient most likely has a benign situation, due to decreased normal physiologic destruction related to her asplenia. She also had multiple other reasons for reactive thrombo-cytosis and leukocytosis. Patient had BCR ABL testing done that was negative. Workup for other causes of reactive increased did reveal iron deficiency with ferritin in the 20 range and saturation of only 7%. iron deficiency was felt to be due to a combination of for bariatric surgery, and prior menstrual losses. Patient had not been compliant with oral iron. She received IV iron in -09/06. She denied any fevers or chills/nausea/vomiting. Energy level and appetite are stable. The patient states that she not had any menstrual cycle since her NovaSure treatment in early 2020. No blood in the stool or urine. She has been prescribed oral iron after her bariatric surgery, but states that she often forgets to take it. despite being urged to, she states that she is able to take it only about 30 or 40% of the time. Review of systems otherwise as per HPI and negative out of 10. the patient is symptomatically stable. She continues to be noncompliant with her oral iron. Her CBC today shows hemoglobin of 15.9, WBC 19.7 and platelets 414. Differential is again normal with predominant neutrophilia. Check labs. Repeat IV iron as needed. Patient continues to be noncompliant with oral iron. Given her lack of menstrual cycle since her Novasure, it is quite possible that her requirement for IV iron will be quite low, once her stores are replenished, and she continues taking her oral iron at least intermittently. Signs and symptoms of progressive anemia discussed. She was again encouraged to be compliant with her oral iron. Last seen in 2021, no follow up visits since then. Past Medical History Past Medical History: Asthma, COPD, CVA/TIA, GERD/Reflux, Hypertension, Musculoskeletal Disorder, Neurologic Disorder, Sleep Apnea/CPAP/BIPAP, Thyroid Disorder Additional Past Medical History / Comment(s): smoking-related interstitial lung disease, doesn't use CPAP, history of seizure at the age of 16 related to med. to stop breast milk, endometriosis, chronic back pain, plantar fasciitis, hx. of Achilles tendinitis, probably antibiotic induced. She also has history of hypothyroidism, ALLERGIC rhinitis, migraines, uses oxygen 2L prn, recent iron infusion, MS , tia 2020 no residual issues, needs cholecystetomy, tinnitus, bal ance issues, History of Any Multi-Drug Resistant Organisms: None Reported Past Surgical History: Bariatric Surgery, Cholecystectomy, Hysterectomy, Tubal Ligation, Uterine Ablation Additional Past Surgical History / Comment(s): LEEP PROCEDURE X 2, EGD, BACK INJECTIONS FOR PAIN. The patient has also undergone thoracic/thoracoscopic wedge biopsy of the right lung. 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; R and Y bypass at [facility] 2019,TRACHEOTOMY-RESOLVED Past Anesthesia/Blood Transfusion Reactions: Motion Sickness Additional Past Anesthesia/Blood Transfusion Reaction / Comm: no problem w/blood transfusion Past Psychological History: Anxiety, Depression Additional Psychological History / Comment(s): Currently going through a divorce. Smoking Status: Current every day smoker Past Alcohol Use History: None Reported Additional Past Alcohol Use History / Comment(s): STARTED SMOKING AT AGE 14 - STOPPED SMOKING on November 23, 2017. (Heaviest smoking amount was 3/4 pack/day). Pt started smoking again 2020 Past Drug Use History: None Reported - Past Family History Sister(s) Family Medical History: Cancer Mother Family Medical History: Cancer Additional Family Medical History / Comment(s): breast cancer Father Family Medical History: COPD, CVA/TIA, Myocardial Infarction (HI) Additional Family Medical History / Comment(s): HEART PROBLEMS, AT AGE 64 Medications and Allergies Home Medications Medication Instructions Recorded Confirmed Type Levothyroxine Sodium [Synthroid] 50 mcg PO DAILY 01/05/14 10/01/23 History ALPRAZolam [Xanax] 1 mg PO DAILY PRN 11/24/17 10/01/23 History Pantoprazole Sodium [Protonix] 40 mg PO DAILY 05/28/18 10/01/23 History Cyclobenzaprine [Flexeril] 10 mg PO BID PRN 10/29/20 10/01/23 History Metoprolol Succinate (ER) [Toprol 12.5 mg PO DAILY 10/29/20 10/01/23 History XL] Atogepant [Qulipta] 60 mg PO DAILY 08/21/21 10/01/23 History Ofatumumab [Kesimpta Pen] 20 mg SQ Q30D 02/12/22 10/01/23 History HYDROcodone/APAP 10-325MG [[place] 1 tab PO QID PRN 02/19/22 10/01/23 History 10-325] Albuterol Sulfate [Albuterol 2 puff INHALATION RT-Q6H PRN 02/19/23 10/01/23 History Sulfate Hfa] Gabapentin [Neurontin] 400 mg PO TID PRN 02/19/23 10/01/23 History Albuterol Nebulized [Ventolin 2.5 mg INHALATION RT-QID PRN 08/21/23 10/01/23 History Nebulized] Cholecalciferol [Vitamin D3 (25 25 mcg PO DAILY 08/21/23 10/01/23 History Mcg = 1000 Iu)] EPINEPHrine (Auto Inject) [Epipen] 0.3 mg IM ONCE PRN 08/21/23 10/01/23 History Famotidine [Pepcid] 20 mg PO HS 08/21/23 10/01/23 History Fluticasone/Umeclidin/Vilanter 1 puff INHALATION RT-DAILY PRN 08/21/23 10/01/23 History [Trelegy Ellipta 100-62.5-25] Ginkgo Biloba [place] Extract [Ginkgo 125 mg PO DAILY 08/21/23 10/01/23 History Biloba] Loperamide HCl [Imodium A-D] 2 - 4 mg PO QID PRN 08/21/23 10/01/23 History Nicotine 14Mg/24Hr Patch [Habitrol 1 patch TRANSDERM DAILY 08/21/23 10/01/23 History 14Mg/24Hr Patch] Ondansetron Odt [Zofran Odt] 4 mg PO BID PRN 08/21/23 10/01/23 History Pravastatin Sodium [Pravachol] 40 mg PO HS 08/21/23 10/01/23 History Promethazine 6.25MG/5Ml [Phenergan 25 mg PO DAILY PRN 08/21/23 10/01/23 History Syrup] Risedronate Sodium [Actonel] 35 mg PO WE 08/21/23 10/01/23 History Sertraline [Zoloft] 50 mg PO DAILY 08/21/23 10/01/23 History Ubrogepant [Ubrelvy] 100 mg PO DAILY PRN 08/21/23 10/01/23 History Vitamin A 2,400 mcg PO DAILY 08/21/23 10/01/23 History Sulfamethox-Tmp 800-160Mg [Bactrim 1 tab PO BID 10/01/23 10/01/23 History DS 800-160 mg] Allergies Allergy/AdvReac Type Severity Reaction Status Date / Time bee venom protein (honey bee) Allergy SWELLING , Verified 09/30/23 20:06 AND ITCHING Bleach (Sodium Hypochlorite) Allergy Rash/Hives Verified 09/30/23 20:06 nitrofurantoin Allergy Rash/Hives Verified 09/30/23 20:06 [From Macrobid] nitrofurantoin Allergy Rash/Hives Verified 09/30/23 20:06 macrocrystalline [From Macrobid] moxifloxacin [From Avelox] AdvReac Nausea & Verified 09/30/23 20:06 Vomiting NSAIDS (Non-Steroidal AdvReac Had Verified 09/30/23 20:06 Anti-Inflamma gastric sleeve surgery, causes bleeds. seasonal allergies Allergy congestion Uncoded 09/30/23 20:06 and sneezing Physical Exam Vitals: Vital Signs Temp Pulse Pulse Resp BP BP Pulse Ox 10/01/23 11:51 98.5 F 109 H 16 95/64 91 L 10/01/23 11:36 101 H 18 82/54 96 10/01/23 11:33 100 10/01/23 11:26 98 10/01/23 08:12 100 10/01/23 08:03 102 H 90 L 10/01/23 07:15 99.2 F 98 16 87/39 91 L 10/01/23 04:50 98.6 F 60 18 98/64 92 L 10/01/23 04:35 95 18 98/53 94 L 10/01/23 01:28 80 18 114/70 93 L 09/30/23 23:31 96 09/30/23 23:24 94 09/30/23 23:06 90 18 115/65 97 09/30/23 20:02 98.0 F 76 20 91/53 80 L Intake and Output 09/30/23 10/01/23 10/01/23 22:59 06:59 14:59 Other: # Voids 1 # Bowel Movements 1 Weight 48.081 kg 48.081 kg 48.081 kg Patient appears to be in no acute distress. Alert and oriented x 3. No respiratory distress. Regular heart rate. No jaundice. She does have some conjunctival pallor. Mucosa moist. Bilateral lower extremity swelling. Has abdominal wound covered in guaze from recent surgery. Results CBC & Chem 7: 10/01/23 07:55 10/01/23 07:24 Labs: Abnormal Lab Results - Last 24 Hours (Table) 09/30/23 09/30/23 10/01/23 Range/Units 20:54 20:54 01:25 WBC 33.9 H (3.8-10.6) k/uL RBC 3.05 L (3.80-5.40) m/uL Hgb 9.8 L (11.4-16.0) gm/dL Hct 32.2 L (34.0-46.0) % MCV 105.7 H (80.0-100.0) fL MCHC 30.3 L (31.0-37.0) g/dL RDW 15.6 H (11.5-15.5) % Plt Count 1070 H* (150-450) k/uL Neutrophils # (1.3-7.7) k/uL Neutrophils # (Manual) 29.15 H (1.3-7.7) k/uL Monocytes # (0-1.0) k/uL Monocytes # (Manual) 1.36 H (0-1.0) k/uL Eosinophils # (0-0.7) k/uL APTT 30.4 H (22.0-30.0) sec Sodium 133 L (137-145) mmol/L Potassium 5.2 H (3.5-5.1) mmol/L Chloride (98-107) mmol/L Carbon Dioxide 21 L (22-30) mmol/L BUN (7-17) mg/dL Creatinine 0.46 L (0.52-1.04) mg/dL Calcium 7.6 L (8.4-10.2) mg/dL Magnesium (1.6-2.3) mg/dL AST 76 H (14-36) U/L Alkaline Phosphatase 449 H (38-126) U/L Total Protein 5.8 L (6.3-8.2) g/dL Albumin 2.6 L (3.5-5.0) g/dL 10/01/23 10/01/23 Range/Units 07:24 07:55 WBC 25.0 H (3.8-10.6) k/uL RBC 2.29 L (3.80-5.40) m/uL Hgb 7.7 L D (11.4-16.0) gm/dL Hct 24.1 L (34.0-46.0) % MCV 105.4 H (80.0-100.0) fL MCHC (31.0-37.0) g/dL RDW 15.9 H (11.5-15.5) % Plt Count 917 H (150-450) k/uL Neutrophils # 19.4 H (1.3-7.7) k/uL Neutrophils # (Manual) (1.3-7.7) k/uL Monocytes # 2.2 H (0-1.0) k/uL Monocytes # (Manual) (0-1.0) k/uL Eosinophils # 0.9 H (0-0.7) k/uL APTT (22.0-30.0) sec Sodium 136 L (137-145) mmol/L Potassium (3.5-5.1) mmol/L Chloride 109 H (98-107) mmol/L Carbon Dioxide (22-30) mmol/L BUN 5 L (7-17) mg/dL Creatinine 0.43 L (0.52-1.04) mg/dL Calcium 7.4 L (8.4-10.2) mg/dL Magnesium 1.5 L (1.6-2.3) mg/dL AST (14-36) U/L Alkaline Phosphatase 375 H (38-126) U/L Total Protein 4.6 L (6.3-8.2) g/dL Albumin 2.0 L (3.5-5.0) g/dL Chest x-ray: report reviewed Venous US: report reviewed Assessment and Plan Assessment: 1. Leukocytosis 2. Thrombocytosis 3. Pneumonia 4. Bilateral leg swelling 5. History of splenectomy Plan: Ms. Rangel is a very pleasant 48-year-old female with a history of chronic leukocytosis and thrombocytosis, splenectomy due to splenic rupture and intra- abdominal hemorrhage, as well as iron deficiency anemia who is here for leg swelling. Workup with negative Doppler. White count and platelets were higher than her baseline, at 33 and thousand respectively. Improved slightly on repeat. Found to also have a pneumonia, on antibiotics. - Her chronic leukocytosis and thrombocytosis is likely due to prior splenectomy and iron deficiency. - Acute on chronic cytosis could also be related to infection/PNA, recent surgery, possible wound infection (has open wound that is packed) and likely iron deficiency - Due to acute on chronic cytosis, will repeat JAK2 and BCR to rule out MPN - Antibiotics as per primary team - Repeat iron panel, B12, folate and will supplement as needed - Monitor CBC Discussed with pt and she is agreeable. All questions answered. Discussed with nursing staff.
[2023-10-01] MEDS: SYMBICORT 80-4.5 MCG INHALER INHALATION PRN (19:45)
[2023-10-01] MEDS: FAMOTIDINE 20 MG TAB PO SCH (20:22)
[2023-10-01] MEDS: PRAVASTATIN SODIUM 40 MG TAB PO SCH (20:22)
[2023-10-02] MEDS: LEVOTHYROXINE 50 MCG TAB PO SCH (05:59)
[2023-10-02] MEDS: AZITHROMYCIN 500 MG in SODIUM CHLORIDE 0.9% 250 ML IVPB SCH (05:59)
[2023-10-02] MEDS: NICOTINE 14MG/24HR PATCH TRANSDERM SCH (08:58)
[2023-10-02] MEDS: SERTRALINE 50 MG TAB PO SCH (08:59)
[2023-10-02] MEDS: FUROSEMIDE 10 MG/ML 10 ML VIAL IV STA (08:59)
[2023-10-02] MEDS: METOPROLOL SUCCINATE (ER) 25 MG TAB.ER.24H PO SCH (08:59)
[2023-10-02] MEDS: PANTOPRAZOLE 40 MG TABLET PO SCH (08:59)
[2023-10-02] MEDS: CHOLECALCIFEROL 25 MCG (1000 IU) TABLET PO SCH (08:59)
[2023-10-02] MEDS: Atogepant [Qulipta] 60 MG Tablet PO SCH (09:01)
[2023-10-02] MEDS: VITAMIN A 10,000 UNIT (3000 MCG) CAPSULE PO SCH ×2 (09:08→09:17)
--- NOTE | 2023-10-02 09:09 | XR ---
EXAMINATION TYPE: XR chest 2V DATE OF EXAM: 10/02/2023 8:46 AM CLINICAL INDICATION:Female, 48 years old with history of sob, crackles in lungs; [facility] COMPARISON: Chest radiograph from one day prior. TECHNIQUE: XR chest 2V Frontal and lateral views of the chest. FINDINGS: Lungs/Pleura: Diffuse interstitial opacities throughout the lungs. There is no evidence of pleural ef fusion, focal consolidation, or pneumothorax. Pulmonary vascularity: Unremarkable. Heart/mediastinum: Cardiomediastinal silhouette is unremarkable. Musculoskeletal: No acute osseous pathology. IMPRESSION: Similar diffuse interstitial opacities throughout the lungs correlate for atypical pneumonia. Finding s not as well appreciated on CT abdomen pelvis 09/21/2023.
[2023-10-02] MEDS: ONDANSETRON ODT 4 MG TAB PO PRN (09:13)
[2023-10-02 11:28] LABS: % Iron Saturation 10.38 (12.00-45.00)
[2023-10-02] MEDS: CYCLOBENZAPRINE 10 MG TAB PO PRN (14:25)
--- NOTE | 2023-10-02 15:33 | CT ---
EXAMINATION TYPE: CT angio chest CT DLP: 125.1 mGycm, Automated exposure control for dose reduction was used. DATE OF EXAM: 10/02/2023 3:20 PM COMPARISON: CT chest 03/31/2018. CLINICAL INDICATION:Female, 48 years old with history of SOB, elev. D-dimer; SOB, elev. D-dimer TECHNIQUE/CONTRAST: CTA scan of the thorax is performed with IV Contrast, patient injected with 100ml mL of Isovue 370, M IP images are created and reviewed these are created on a separate workstation.. FINDINGS: Pulmonary Artery: There is no evidence for a filling defect within the pulmonary vasculature to sugge st acute pulmonary embolism. The pulmonary artery is of normal size. Lungs/Pleura: Extensive interstitial thickening is identified throughout the lungs. Associated ground glass opacities are identified in the lung bases with associated pleural scarring. Trace bilateral pl eural effusions are present. A 1.3 cm right upper lung nodule is identified. Airway: Pleural-based nodularity is identified in the lung base. Airway is patent. Heart: Heart is within normal limits for size. Vasculature: No evidence of aortic aneurysm. Mediastinum: Enlarged mediastinal lymph nodes are identified assistance representative lymph node includes a pre carinal lymph node measuring 1.3 cm in short axis. Musculoskeletal: No acute osseous abnormalities Soft Tissues: Unremarkable. Lower neck: No significant findings. Upper Abdomen: No significant findings. IMPRESSION: 1. No evidence of pulmonary embolism. 2. Suspicious right upper lung pulmonary nodule measuring 1.3 cm. Further evaluation with PET/CT or t issue sampling is recommended. 3. Extensive interstitial lung disease with associated trace bilateral pleural effusions. 4. Mediastinal adenopathy.
--- NOTE | 2023-10-02 22:49 | PN ---
PROGRESS NOTE DATE OF SERVICE: 10/01/2023 CHIEF COMPLAINT: Leukocytosis. HISTORY OF PRESENT ILLNESS: This lady is doing fairly well and she is not having a lot of discomfort. She has had no fever or chills. PHYSICAL EXAMINATION: CHEST: Clear. CARDIAC: Normal. ABDOMEN: Soft and nontender. IMPRESSION: 1. Leukocytosis. 2. Thrombocytosis. 3. Status post splenectomy. 4. Status post right lower quadrant abscess drainage. PLAN: Continue to follow with increased activity and await the results of the biopsy as well as treatment plan from Oncology. MMODL / IJN: [id number] /
--- NOTE | 2023-10-02 23:04 | PN ---
PROGRESS NOTE DATE OF SERVICE: 10/02/2023 CHIEF COMPLAINT: Leukocytosis and abscess in the right lower quadrant. HISTORY OF PRESENT ILLNESS: This lady started to have more shortness of breath today and various studies ordered. She was given Lasix 80 mg IV portion, her breathing improved. Her BNP returned to 4770. Echo Doppler and chest x-ray were ordered as well as a D-dimer. CTA of the chest was also ordered. PHYSICAL EXAMINATION: GENERAL: She is feeling better. CHEST: Her breath sounds reveal only occasional rales. CARDIAC: Normal. ABDOMEN: Soft, nontender. EXTREMITIES: There is no edema in the legs. IMPRESSION: 1. Shortness of breath. 2. Leukocytosis. 3. Thrombocytosis. 4. Right lower quadrant abscess. 5. Elevated D-dimer. 6. Rule out pulmonary embolism. MMODL / IJN: [id number] /
--- NOTE | 2023-10-02 23:46 | HP ---
HISTORY AND PHYSICAL CHIEF COMPLAINT: Lower abdominal pain, leukocytosis, and thrombocytosis. HISTORY OF PRESENT ILLNESS: This is an another admission for this 48-year-old female. She has been a patient for some time and recently was in the office and was found to have a white count around 34,000. Before she could be contacted, she wound up in the hospital in [facility]. There apparently they identified an abscess in the pelvis of right lower quadrant, which was drained. She came back to [facility] and was seen in the office with a low blood pressure and persistent leukocytosis. She was admitted. REVIEW OF SYSTEMS: She denies any chills, fever, chest pain, abdominal pain, vomiting, urinary complaints, etc. Past medical history, family history, personal and social history otherwise unremarkable. She does smoke. LABORATORY DATA: Laboratory studies in the emergency room revealed BNP of 867 with a white count of 2900 and hemoglobin of 9.8. Platelets were 1 million. PHYSICAL EXAMINATION: VITAL SIGNS: Blood pressure 91/53. HEAD, EARS, EYES, NOSE, MOUTH, AND THROAT: Normal. CHEST: Clear. CARDIAC: Normal. ABDOMEN: Soft, nontender. There is a dressing in the right lower quadrant, where she had undergone the surgery. EXTREMITIES: Demonstrated mild edema, particularly the left leg. Calf is soft. NEUROLOGICAL: Intact. ASSESSMENT: She is admitted to the hospital with diagnosis, 1. Leukocytosis. 2. Anemia. 3. Thrombocytosis. 4. Hypotension. 5. Elevated BNP. PLAN: 1. Bedrest. 2. IV fluids. 3. Consult Hematology. 4. Continue to follow her elevated BNP. MMODL / IJN: [id number] /
[2023-10-03] MEDS: ALBUTEROL NEBULIZED 2.5 MG/3 ML INHALATION PRN (04:19)
--- NOTE | 2023-10-03 10:02 | CA ---
Transthoracic Echo Report Name: Laura Rangel Age: 48 Gender: F : 1975 Exam Date: 10/03/2023 09:03 Exam Location: [place] [facility] Ht (in): 61 Wt (lb): 106 Ordering Physician: Keven Kebede MD Attending/Referring Phys: ELIZABETH, [facility] A[facility] Lala Harmon, RDCS Procedure CPT: Indications: sob, crackles in lungs Cardiac Hx: Technical Quality: Good Contrast 1: Total Dose (mL): Contrast 2: Total Dose (mL): MEASUREMENTS (Male / Female) Normal Values 2D ECHO LV Diastolic Diameter PLAX 4.6 cm 4.2 - 5.9 / 3.9 - 5.3 cm LV Systolic Diameter PLAX 3.2 cm IVS Diastolic Thickness 1.1 cm 0.6 - 1.0 / 0.6 - 0.9 cm LVPW Diastolic Thickness 1.0 cm 0.6 - 1.0 / 0.6 - 0.9 cm LV Relative Wall Thickness 0.4 RV Internal Dim ED PLAX 1.7 cm LA Systolic Diameter LX 3.5 cm 3.0 - 4.0 / 2.7 - 3.8 cm LV Diastolic Volume MOD BP 56.6 cm??? 67 - 155 / 56 - 104 cm??? LV Systolic Volume MOD BP 24.3 cm??? 22 - 58 / 19 - 49 cm??? LV Ejection Fraction MOD BP 57.0 % >= 55 % LV Cardiac Index MOD BP 1930.7 cm???/min???m??? LV Diastolic Volume MOD 4C 49.9 cm??? LV Systolic Volume MOD 4C 25.8 cm??? LV Ejection Fraction MOD 4C 48.4 % LV Cardiac Index MOD 4C 1445.3 cm???/min???m??? LV Diastolic Length 4C 6.3 cm LV Systolic Length 4C 5.3 cm LV Diastolic Volume MOD 2C 59.5 cm??? LV Systolic Volume MOD 2C 21.8 cm??? LV Ejection Fraction MOD 2C 63.3 % LV Cardiac Index MOD 2C 2250.1 cm???/min???m??? LV Diastolic Length 2C 7.0 cm LV Systolic Length 2C 5.7 cm M-MODE Aortic Root Diameter MM 3.2 cm LA Systolic Diameter MM 3.2 cm LA Ao Ratio MM 1.0 AV Cusp Separation MM 1.8 cm DOPPLER AV Peak Velocity 170.9 cm/s AV Peak Gradient 11.7 mmHg LVOT Peak Velocity 101.3 cm/s LVOT Peak Gradient 4.1 mmHg MV E' Velocity 8.7 cm/s TR Peak Velocity 293.9 cm/s TR Peak Gradient 34.6 mmHg Right Ventricular Systolic Press 39.6 mmHg FINDINGS Left Ventricle Left ventricular ejection fraction is estimated at 55-60 %. Mildly increased septal wall thickness. Sigmoid Septum. Normal left ventricular wall motion. Left ventricular cavity size normal. Right Ventricle Normal right ventricular size and function. Mild pulmonary hypertension. Right Atrium Normal right atrial size. Left Atrium Mild left atrial dilatation. Interatrial septal aneurysm. Mitral Valve Structurally normal mitral valve. Mild mitral regurgitation. Aortic Valve Trileaflet aortic valve. Trace aortic regurgitation. No aortic stenosis. Tricuspid Valve Structurally normal tricuspid valve. Mild tricuspid regurgitation. Pulmonic Valve Structurally normal pulmonic valve. Mild pulmonic regurgitation. Pericardium No pericardial or pleural effusion. Aorta Normal size aortic root and proximal ascending aorta. CONCLUSIONS Normal biventricular systolic function Mild pulmonary hypertension No pericardial effusion Normal aortic root and proximal ascending aorta Previewed by: Dr. Vinod Grijalva MD (Electronically Signed) Final Date: 03 October 2023 10:02
[2023-10-03 13:51] LABS: African American GFR (CKD) >90 (>60 ml/min/1.73 sqM); Blood Urea Nitrogen <2 mg/dL (7-17); Non-African American GFR(CKD) >90 (>60 ml/min/1.73 sqM)
[2023-10-03 18:02] LABS: African American GFR (CKD) >90 (>60 ml/min/1.73 sqM); Blood Urea Nitrogen 4 mg/dL (7-17); Non-African American GFR(CKD) >90 (>60 ml/min/1.73 sqM)
[2023-10-03] MEDS: IOPAMIDOL CONTRAST (ORAL USE) VIAL PO PRN (20:41)
--- NOTE | 2023-10-04 00:01 | PN ---
PROGRESS NOTE DATE OF SERVICE: 10/03/2023 CHIEF COMPLAINT: 1. Status post intraabdominal abscess following cholecystectomy. 2. Shortness of breath. HISTORY OF PRESENT ILLNESS: This lady's condition remains more or less the same. Breathing is better than it was yesterday. X-ray suggests possibility of a right upper lobe infiltrate. White count still 25,000. Hemoglobin is 7. PHYSICAL EXAMINATION: VITAL SIGNS: Temperature 99.4. HEENT: Head, ears, eyes, nose, mouth and throat are normal. CHEST: Clear. CARDIAC: Normal. ABDOMEN: Soft. There is still some purulent drainage from the sites of surgery. IMPRESSION: 1. Status post cholecystectomy. 2. History of intraabdominal abscess postoperatively. 3. Leukocytosis. 4. Anemia. PLAN: Await results of CT of the abdomen looking to see if there is any evidence of right upper quadrant infection or abscess. MMODL / IJN: [id number] /
[2023-10-04] MEDS ORDERED: ZINC OXIDE PASTE (Z-GUARD) 1 APPLIC TOPICAL PRN (00:31)
[2023-10-04] MEDS: FUROSEMIDE 40 MG TAB PO SCH (12:26)
[2023-10-04 13:15] LABS: Anisocytosis Slight; HCT 27.7 % (34.0-46.0); HGB 8.2 gm/dL (11.4-16.0); Hypochromasia Marked; MCHC 29.8 g/dL (31.0-37.0); MCV 107.5 fL (80.0-100.0); Macrocytosis Marked; Mean Platelet Volume 8.3; RBC 2.57 m/uL (3.80-5.40); WBC 19.4 k/uL (3.8-10.6)
[2023-10-04 13:16] LABS: Platelet Count 1009 k/uL (150-450)
[2023-10-04 14:34] LABS: Band Neutrophils % 1 %; Basophils # (M) 0.19 k/uL (0-0.2); Eosinophils # (M) 0.78 k/uL (0-0.7); Lymphocytes # (M) 1.94 k/uL (1.0-4.8); Metamyelocytes # (M) 0.19 k/uL (0); Metamyelocytes % 1 %; Monocytes # (M) 1.75 k/uL (0-1.0); Myelocytes # (M) 0.19 k/uL (0); Myelocytes % 1 %; Neutrophils % (M) 76 %; Nucleated Red Blood Cells 0 /100 WBC (0-0); Total Cells Counted 200
[2023-10-04 14:35] LABS: Target Cells Present
--- NOTE | 2023-10-04 14:48 | CT ---
EXAMINATION TYPE: CT abdomen pelvis w con DATE OF EXAM: 10/03/2023 COMPARISON: 624 INDICATION: cholecystectomy at [facility] approx. August 2023. r/o abscess. DLP: 578.7 mGycm, Automated exposure control for dose reduction was used. CONTRAST: 100 mL of Isovue 300. Study performed with Oral Contrast TECHNIQUE: Axial images were obtained from above the diaphragm to the pubic rami in the axial plane a t 5 mm thick sections. Reconstructed images are reviewed on the computer in the coronal plane. FINDINGS: Limited CT sections are obtained the lung bases. Diffuse groundglass opacities are present. Lobulate d pulmonary edema superimposed on COPD. Some mild thickening along the left pleural margin may be pre sent. CT ABDOMEN: There is a 1.5 cm hypodense collection within the subcutaneous tissues right mid abdomen. Within the intraperitoneal region there is a slightly irregular 0.1 x 8.0 cm low density collection with thick wall compatible with an abscess. These are smaller than the prior study. Liver: Normal Spleen: Absent Pancreas: Normal Adrenal glands: The adrenal glands are normal. Gallbladder: Normal Kidneys: No masses.. No hydronephrosis is present. There is a 1.4 cm cyst medial mid right kidney Delayed images were obtained through the kidneys, which remain unremarkable. Aorta: Vascular calcification is within the aorta. Inferior vena cava: Normal. CT PELVIS: Loops of bowel within the abdomen and pelvis are normal. There are loops of bowel which are incom pletely distended or lack oral contrast limiting their evaluation. Appendix: Not identified. No suspicious tubular structure is evident. Urinary bladder: Normal. Genitourinary structures: Uterus and ovaries are not identified Osseous structures: No suspicious lytic or sclerotic lesions. IMPRESSION: 1. Decreased size of the intra-abdominal abscess. There appears to be near complete resolution of th e subcutaneous abscess at the same level
--- NOTE | 2023-10-04 14:53 | P.CNPUL ---
History of Present Illness Consult date: 10/04/23 Requesting physician: Keven Kebede Reason for consult: COPD, abnormal CXR/CT Chief complaint: Abdominal pain, shortness of breath History of present illness: This is a pleasant 48-year-old female patient with multiple medical problems including chronic leukocytosis and thrombocytosis followed by hematology, hypothyroidism, chronic obstructive pulmonary disease with FEV1 value 66 of pre dicted, respiratory bronchiolitis associated smoking-related interstitial lung disease, hypertension, obstructive sleep apnea, multiple abdominal surgeries including sleeve gastrectomy with complications, splenectomy in 2018, recent hysterectomy, recent cholecystectomy again with postoperative complications and follows at [facility] and currently has a packed wound and drainage tube in her abdomen. She has a 30+ year smoking history but states she quit 2 months ago. She presented to the emergency room on September 30, 2023 with complaints of bilateral lower extremity edema. Doppler of the bilateral lower extremities. Chest x-ray reveals similar diffuse interstitial opacities throughout the lungs bilaterally. CT angiogram ruled out pulmonary embolism. There is a suspicious right upper lobe pulmonary nodule measuring 1.3 cm. Extensive interstitial thickening throughout the lungs. Associated groundglass opacities bilaterally with associated pleural scarring. Echocardiogram reveals preserved left ventricular systolic function with ejection fraction of 55 to 60%. Mild pulmonary hypertension no significant valvular heart disease. We are consulted today October 04, 2023 with complaints of shortness of breath. She is seen on the regular medical floor. She is sitting up at the bedside. Awake and alert in no acute distress. She is maintaining O2 saturations in the upper 90s on 5 L/min per nasal cannula. Currently, she denies any worsening shortness of breath, cough or congestion. She is afebrile. Hemodynamically stable. 19.4. Hemoglobin 8.2. Platelets 1009. proBNP 4070. BUN 4. Creatinine 0.37. Review of Systems REVIEW OF SYSTEMS: CONSTITUTIONAL: Denies any recent significant weight loss or weight gain. EYES: Denies change in vision. EARS, NOSE, MOUTH, THROAT: Denies headaches, denies sore throat. CARDIOVASCULAR: Denies chest pain, palpitations or syncopal episodes. RESPIRATORY: Positive for shortness of breath, cough, congestion no hemoptysis. GASTROINTESTINAL: Denies change in appetite, denies abdominal pain GENITOURINARY: Denies hematuria, denies infections. MUSKULOSKELETAL: Positive for lower extremity edema. INTEGUMENTARY: Denies rash, denies eczema. NEUROLOGICAL: Denies recent memory loss, no recent seizure activity. PSYCHIATRIC: Denies anxiety, denies depression. HEMATOLOGIC/LYMPHATIC: Denies anemia, denies enlarged lymph nodes. Past Medical History Past Medical History: Asthma, COPD, CVA/TIA, GERD/Reflux, Hypertension, Musculoskeletal Disorder, Neurologic Disorder, Sleep Apnea/CPAP/BIPAP, Thyroid Disorder Additional Past Medical History / Comment(s): smoking-related interstitial lung disease, doesn't use CPAP, history of seizure at the age of 16 related to med. to stop breast milk, endometriosis, chronic back pain, plantar fasciitis, hx. of Achilles tendinitis, probably antibiotic induced. She also has history of hypothyroidism, ALLERGIC rhinitis, migraines, uses oxygen 2L prn, recent iron infusion, MS , tia 2020 no residual issues, needs cholecystetomy, tinnitus, balance issues, History of Any Multi-Drug Resistant Organisms: None Reported Past Surgical History: Bariatric Surgery, Cholecystectomy, Hysterectomy, Tubal Ligation, Uterine Ablation Additional Past Surgical History / Comment(s): LEEP PROCEDURE X 2, EGD, BACK INJECTIONS FOR PAIN. The patient has also undergone thoracic/thoracoscopic wedge biopsy of the right lung. 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; R and Y bypass at [facility] 2019,TRACHEOTOMY-RESOLVED Past Anesthesia/Blood Transfusion Reactions: Motion Sickness Additional Past Anesthesia/Blood Transfusion Reaction / Comment(s): no problem w/blood transfusion Past Psychological History: Anxiety, Depression Additional Psychological History / Comment(s): Currently going through a divorce. Smoking Status: Current every day smoker Past Alcohol Use History: None Reported Additional Past Alcohol Use History / Comment(s): STARTED SMOKING AT AGE 14 - STOPPED SMOKING on November 23, 2017. (Heaviest smoking amount was 3/4 pack/day). Pt started smoking again 2020 Past Drug Use History: None Reported - Past Family History Sister(s) Family Medical History: Cancer Mother Family Medical History: Cancer Additional Family Medical History / Comment(s): breast cancer Father Family Medical History: COPD, CVA/TIA, Myocardial Infarction (CT) Additional Family Medical History / Comment(s): HEART PROBLEMS, AT AGE 64 Medications and Allergies Home Medications Medication Instructions Recorded Confirmed Type Levothyroxine Sodium [Synthroid] 50 mcg PO DAILY 01/05/14 10/01/23 History ALPRAZolam [Xanax] 1 mg PO DAILY PRN 11/24/17 10/01/23 History Pantoprazole Sodium [Protonix] 40 mg PO DAILY 05/28/18 10/01/23 History Cyclobenzaprine [Flexeril] 10 mg PO BID PRN 10/29/20 10/01/23 History Metoprolol Succinate (ER) [Toprol 12.5 mg PO DAILY 10/29/20 10/01/23 History XL] Atogepant [Qulipta] 60 mg PO DAILY 08/21/21 10/01/23 History Ofatumumab [Kesimpta Pen] 20 mg SQ Q30D 02/12/22 10/01/23 History HYDROcodone/APAP 10-325MG [[place] 1 tab PO QID PRN 02/19/22 10/01/23 History 10-325] Albuterol Sulfate [Albuterol 2 puff INHALATION RT-Q6H PRN 02/19/23 10/01/23 History Sulfate Hfa] Gabapentin [Neurontin] 400 mg PO TID PRN 02/19/23 10/01/23 History Albuterol Nebulized [Ventolin 2.5 mg INHALATION RT-QID PRN 08/21/23 10/01/23 History Nebulized] Cholecalciferol [Vitamin D3 (25 25 mcg PO DAILY 08/21/23 10/01/23 History Mcg = 1000 Iu)] EPINEPHrine (Auto Inject) [Epipen] 0.3 mg IM ONCE PRN 08/21/23 10/01/23 History Famotidine [Pepcid] 20 mg PO HS 08/21/23 10/01/23 History Fluticasone/Umeclidin/Vilanter 1 puff INHALATION RT-DAILY PRN 08/21/23 10/01/23 History [Trelegy Ellipta 100-62.5-25] Ginkgo Biloba Manly Extract [Ginkgo 125 mg PO DAILY 08/21/23 10/01/23 History Biloba] Loperamide HCl [Imodium A-D] 2 - 4 mg PO QID PRN 08/21/23 10/01/23 History Nicotine 14Mg/24Hr Patch [Habitrol 1 patch TRANSDERM DAILY 08/21/23 10/01/23 History 14Mg/24Hr Patch] Ondansetron Odt [Zofran Odt] 4 mg PO BID PRN 08/21/23 10/01/23 History Pravastatin Sodium [Pravachol] 40 mg PO HS 08/21/23 10/01/23 History Promethazine 6.25MG/5Ml [Phenergan 25 mg PO DAILY PRN 08/21/23 10/01/23 History Syrup] Risedronate Sodium [Actonel] 35 mg PO WE 08/21/23 10/01/23 History Sertraline [Zoloft] 50 mg PO DAILY 08/21/23 10/01/23 History Ubrogepant [Ubrelvy] 100 mg PO DAILY PRN 08/21/23 10/01/23 History Vitamin A 2,400 mcg PO DAILY 08/21/23 10/01/23 History Sulfamethox-Tmp 800-160Mg [Bactrim 1 tab PO BID 10/01/23 10/01/23 History DS 800-160 mg] Allergies Allergy/AdvReac Type Severity Reaction Status Date / Time bee venom protein (honey bee) Allergy SWELLING , Verified 09/30/23 20:06 AND ITCHING Bleach (Sodium Hypochlorite) Allergy Rash/Hives Verified 09/30/23 20:06 nitrofurantoin Allergy Rash/Hives Verified 09/30/23 20:06 [From Macrobid] nitrofurantoin Allergy Rash/Hives Verified 09/30/23 20:06 macrocrystalline [From Macrobid] moxifloxacin [From Avelox] AdvReac Nausea & Verified 09/30/23 20:06 Vomiting NSAIDS (Non-Steroidal AdvReac Had Verified 09/30/23 20:06 Anti-Inflamma gastric sleeve surgery, causes bleeds. seasonal allergies Allergy congestion Uncoded 09/30/23 20:06 and sneezing Physical Exam Vitals: Vital Signs Temp Pulse Pulse Resp BP BP Pulse Ox 10/04/23 13:33 98.7 F 97 20 99/62 97 10/04/23 12:13 80 10/04/23 12:04 78 10/04/23 09:14 80 10/04/23 09:04 79 95 10/04/23 07:35 98.3 F 96 16 141/80 90 L 10/04/23 01:27 98.7 F 96 16 144/79 90 L 10/03/23 20:43 102 H 16 10/03/23 20:12 100 10/03/23 19:55 100 10/03/23 19:38 98.9 F 102 H 16 152/78 90 L 10/03/23 16:00 104 H 10/03/23 15:50 96 Intake and Output 10/03/23 10/04/23 10/04/23 22:59 06:59 14:59 Other: Voiding Method Toilet # Voids 1 Weight 44.9 kg 44.9 kg GENERAL EXAM: Alert, pleasant 48-year-old female, on 5 L nasal cannula, sitting up in bed, in no apparent distress. HEAD: Normocephalic. EYES: Normal reaction of pupils, equal size. NOSE: Clear with pink turbinates. THROAT: No erythema or exudates. NECK: No masses, no JVD. CHEST: No chest wall deformity. LUNGS: Equal air entry with diminished breath sounds bilaterally. CVS: S1 and S2 normal with no audible murmur, regular rhythm. ABDOMEN: Abdominal dressing dry and intact. Drainage tube in place. Normal bowel sounds, no guarding or rigidity. SPINE: No scoliosis or deformity SKIN: No rashes CENTRAL NERVOUS SYSTEM: No focal deficits, tone is normal in all 4 extremities. EXTREMITIES: There is 1-2+ peripheral edema. No clubbing, no cyanosis. Peripheral pulses are intact. Results - Laboratory Findings CBC and BMP: 10/04/23 12:39 10/03/23 17:31 PT/INR, D-dimer PT 12.3 sec (10.0-12.5) 09/30/23 20:54 INR 1.1 (<1.2) 09/30/23 20:54 D-Dimer 2.65 mg/L FEU (<0.60) H 10/02/23 08:52 Abnormal lab findings: Abnormal Labs 09/30/23 09/30/23 10/01/23 20:54 20:54 01:25 WBC 33.9 H RBC 3.05 L Hgb 9.8 L Hct 32.2 L MCV 105.7 H MCHC 30.3 L RDW 15.6 H Plt Count 1070 H* Neutrophils # Neutrophils # (Manual) 29.15 H Monocytes # Monocytes # (Manual) 1.36 H Eosinophils # Macrocytosis APTT 30.4 H D-Dimer Sodium 133 L Potassium 5.2 H Chloride Carbon Dioxide 21 L BUN Creatinine 0.46 L Calcium 7.6 L Magnesium Iron TIBC % Saturation Transferrin Ferritin AST 76 H Alkaline Phosphatase 449 H Total Protein 5.8 L Albumin 2.6 L Vitamin B12 10/01/23 10/01/23 10/02/23 07:24 07:55 05:00 WBC 25.0 H RBC 2.29 L Hgb 7.7 L D Hct 24.1 L MCV 105.4 H MCHC RDW 15.9 H Plt Count 917 H Neutrophils # 19.4 H Neutrophils # (Manual) Monocytes # 2.2 H Monocytes # (Manual) Eosinophils # 0.9 H Macrocytosis APTT D-Dimer Sodium 136 L Potassium Chloride 109 H Carbon Dioxide BUN 5 L Creatinine 0.43 L Calcium 7.4 L Magnesium 1.5 L Iron 11 L TIBC 106 L % Saturation 10.38 L Transferrin 75.4 L Ferritin 1107.0 H AST Alkaline Phosphatase 375 H Total Protein 4.6 L Albumin 2.0 L Vitamin B12 1625.0 H 10/02/23 10/02/23 10/03/23 08:52 08:52 17:31 WBC RBC Hgb Hct MCV MCHC RDW Plt Count Neutrophils # Neutrophils # (Manual) Monocytes # Monocytes # (Manual) Eosinophils # Macrocytosis APTT D-Dimer 2.65 H Sodium Potassium Chloride Carbon Dioxide BUN <2 L 4 L Creatinine 0.34 L 0.37 L Calcium Magnesium Iron TIBC % Saturation Transferrin Ferritin AST Alkaline Phosphatase Total Protein Albumin Vitamin B12 10/04/23 12:39 WBC 19.4 H RBC 2.57 L Hgb 8.2 L Hct 27.7 L MCV 107.5 H MCHC 29.8 L RDW 17.0 H Plt Count 1009 H* Neutrophils # Neutrophils # (Manual) Monocytes # Monocytes # (Manual) Eosinophils # Macrocytosis Marked A APTT D-Dimer Sodium Potassium Chloride Carbon Dioxide BUN Creatinine Calcium Magnesium Iron TIBC % Saturation Transferrin Ferritin AST Alkaline Phosphatase Total Protein Albumin Vitamin B12 - Diagnostic Findings Chest x-ray: image reviewed CT scan - chest: image reviewed Assessment and Plan Assessment: Lower extremity edema of unclear etiology. The patient had recently undergone cholecystectomy with complications requiring wound packing and drainage tube in place. Echocardiogram revealed preserved left ventricular systolic function. Mild pulmonary hypertension. Dopplers of the lower extremity were negative for DVT. Initiated on diuretics Recent cholecystectomy at [facility] with complications requiring readmission and drainage tube placement Acute on chronic hypoxic respiratory failure secondary to a mild exacerbation of COPD. FEV1 value 66% of predicted. Maintained on Trelegy and albuterol Chronic tobacco dependence stating quit 2 months ago, trying to quit by vaping Respiratory bronchiolitis associated smoking-related interstitial lung disease, right lung wedge biopsy New suspicious right upper lung pulmonary nodule measuring 1.3 cm Hypertension Hypothyroidism Obstructive sleep apnea Sleeve gastrectomy Splenectomy in 2018 History of anxiety/depression Plan: The patient was seen and evaluated CT scan of the chest, chest x-rays, labs and medications reviewed Echocardiogram reviewed Dopplers of the lower extremity negative for DVT Continue diuretics Will need outpatient PET scan regarding new right upper lung nodule Continue bronchodilators, steroids Again educated regarding the importance of complete smoking cessation NicoDerm patch in place Educated regarding avoidance of vaping Titrate down the FiO2 as tolerated We will continue to follow and make further recommendations based on her clinical status I have personally seen and examined the patient, performed the documentation and the assessment and plan as written. Number of minutes spent on the visit: 20.
--- NOTE | 2023-10-04 15:02 | P.PN ---
Subjective Progress Note Date: 10/03/23 At today's visit patient is resting comfortably bedside chair. Reports feeling improved today, but is fatigued. CBC from 09/30 reviewed, WBC 25.0, hemoglobin 7.7, platelets 917,000. Patient continues on IV antibiotics. Afebrile Objective - Vital Signs Vital signs: Vital Signs Temp 98.3 F 10/04/23 07:35 Pulse 96 10/04/23 07:35 Resp 16 10/04/23 07:35 BP 141/80 10/04/23 07:35 Pulse Ox 90 L 10/04/23 07:35 FiO2 Intake & Output 10/03/23 10/04/23 10/04/23 18:59 06:59 18:59 Weight 46 kg 44.9 kg Other: Voiding Method Toilet # Voids 1 - Constitutional General appearance: Present: average body habitus, no acute distress - EENT Eyes: Present: anicteric sclerae, EOMI ENT: Present: hearing grossly normal - Respiratory Details: breathing is even and unlabored - Cardiovascular Details: skin warm and dry - Integumentary Integumentary: Absent: cyanotic - Neurologic Neurologic: Present: CNII-XII intact - Psychiatric Psychiatric: Present: A&O x's 3 - Labs CBC & Chem 7: 10/04/23 12:39 10/03/23 17:31 Labs: Abnormal Lab Results - Last 24 Hours (Table) 10/02/23 10/03/23 Range/Units 08:52 17:31 BUN <2 L 4 L (7-17) mg/dL Creatinine 0.34 L 0.37 L (0.52-1.04) mg/dL Microbiology - Last 24 Hours (Table) 10/03/23 10:02 Gram Stain - Final Sputum Sputum Culture - Final 10/02/23 15:55 Gram Stain - Preliminary Abdomen Wound Culture - Preliminary Gram Neg Bacilli 10/01/23 01:25 Blood Culture - Preliminary Blood 10/01/23 01:40 Blood Culture - Preliminary Blood Assessment and Plan (1) CAP (community acquired pneumonia) Current Visit: Yes Status: Acute Priority: High Code(s): J18.9 - PNEUMONIA , UNSPECIFIED ORGANISM SNOMED Code(s): 885190364 (2) Anemia Current Visit: Yes Status: Acute Priority: High Code(s): D64.9 - ANEMIA, UNSPECIFIED SNOMED Code(s): 032242230 (3) Leukocytosis Current Visit: Yes Status: Chronic Priority: Medium Code(s): D72.829 - ELEVATED WHITE BLOOD CELL COUNT, UNSPECIFIED SNOMED Code(s): 620769682 Plan: Ms. Rangel is a very pleasant 48-year-old female with a history of chronic leukocytosis and thrombocytosis, splenectomy due to splenic rupture and intra- abdominal hemorrhage, as well as iron deficiency anemia who is here for leg swelling. Workup with negative Doppler. White count and platelets were higher than her baseline. Improved slightly on repeat. Found to also have a pneumonia, on antibiotics. - Her chronic leukocytosis and thrombocytosis is likely due to prior splenectomy and iron deficiency. - Acute on chronic cytosis could also be related to infection/PNA, recent surgery, possible wound infection (has open wound that is packed) and likely iron deficiency - Due to acute on chronic cytosis, will repeat JAK2 and BCR-ABL to rule out MPN, studies pending - Antibiotics as per primary team - Repeat iron panel, B12, folate and will supplement as needed - Iron studies consistent with anemia of inflammation, no Vit B12 or folate deficiency noted - Continue to monitor CBC - Will reestablish care within clinic upon discharge Discussed with pt and she is agreeable. All questions answered
[2023-10-04] MEDS: IPRATROPIUM-ALBUTEROL 3 ML NEB INHALATION SCH (15:39)
[2023-10-04] MEDS: methylPREDNISolone SOD SUCCI 40 MG/ML 1 ML VIAL IV SCH (17:02)
[2023-10-04 19:11] LABS: ALT 22 U/L (8-44); AST 64 U/L (13-35); Albumin 2.6 g/dL (3.8-4.9); Albumin/Globulin Ratio 0.93 Ratio (1.60-3.17); Alkaline Phosphatase 333 U/L (41-126); Blood Urea Nitrogen 4.6 mg/dL (9.0-27.0); Calcium 8.5 mg/dL (8.7-10.3); Chloride 102 mmol/L (96-109); Globulin 2.8 g/dL (1.6-3.3); Glucose 83 mg/dL (70-110); Potassium 4.6 mmol/L (3.5-5.5); Sodium 139 mmol/L (135-145); Total Bilirubin <0.2 mg/dL (0.3-1.2); Total Protein 5.4 g/dL (6.2-8.2)
[2023-10-04] MEDS: SYMBICORT 160-4.5 MCG INHALER INHALATION SCH (20:07)
--- NOTE | 2023-10-04 21:51 | PN ---
PROGRESS NOTE DATE OF SERVICE: 10/04/2023 CHIEF COMPLAINT: Leukocytosis, anemia and shortness of breath. HISTORY OF PRESENT ILLNESS: This lady is still complaining of shortness of breath. Etiology is not clear. She apparently does not have pulmonary emboli. There is no definite evidence of heart failure or pneumonia. White count is still high at 25,000 and her hemoglobin is 7.7. PHYSICAL EXAMINATION: GENERAL: Color is good. CHEST: Quite clear. There are only occasional rales. CARDIAC: Normal. ABDOMEN: Soft and the dressing is in place on the right side of the abdomen. IMPRESSION: 1. Shortness of breath, etiology unknown. 2. Leukocytosis. 3. Anemia. 4. Status post cholecystectomy with secondary wound infection. 5. Status post splenectomy. PLAN: 1. Continue with current program. 2. Await results of CT of the abdomen. 3. Consult pulmonology. MMODL / IJN: [id number] /
[2023-10-05] MEDS: RISEDRONATE SODIUM 35 MG PO SCH (09:29)
[2023-10-05 10:39] LABS: Anisocytosis Slight; Basophils % (A) 0 %; Eosinophils # (A) 0.1 k/uL (0-0.7); Eosinophils % (A) 1 %; HGB 8.6 gm/dL (11.4-16.0); Hypochromasia Slight; Lymphocytes % (A) 10 %; MCH 31.8 pg (25.0-35.0); MCHC 30.7 g/dL (31.0-37.0); MCV 103.8 fL (80.0-100.0); Macrocytosis Moderate; Mean Platelet Volume 8.1; Monocytes # (A) 0.5 k/uL (0-1.0); Monocytes % (A) 5 %; Neutrophils # (A) 8.3 k/uL (1.3-7.7); Neutrophils % (A) 84 %; Platelet Count 997 k/uL (150-450); RDW 16.7 % (11.5-15.5)
--- NOTE | 2023-10-05 10:49 | P.PN ---
Subjective Progress Note Date: 10/05/23 This is a pleasant 48-year-old female patient with multiple medical problems including chronic leukocytosis and thrombocytosis followed by hematology, hypothyroidism, chronic obstructive pulmonary disease with FEV1 value 66 of predicted, respiratory bronchiolitis associated smoking-related interstitial iwona ng disease, hypertension, obstructive sleep apnea, multiple abdominal surgeries including sleeve gastrectomy with complications, splenectomy in 2018, recent hysterectomy, recent cholecystectomy again with postoperative complications and follows at [facility] and currently has a packed wound and drainage tube in her abdomen. She has a 30+ year smoking history but states she quit 2 months ago. She presented to the emergency room on September 30, 2023 with complaints of bilateral lower extremity edema. Doppler of the bilateral lower extremities. Chest x-ray reveals similar diffuse interstitial opacities throughout the lungs bilaterally. CT angiogram ruled out pulmonary embolism. There is a suspicious right upper lobe pulmonary nodule measuring 1.3 cm. Extensive interstitial thickening throughout the lungs. Associated groundglass opacities bilaterally with associated pleural scarring. Echocardiogram reveals preserved left ventricular systolic function with ejection fraction of 55 to 60%. Mild pulmonary hypertension no significant valvular heart disease. We are consulted today October 04, 2023 with complaints of shortness of breath. She is seen on the regular medical floor. She is sitting up at the bedside. Awake and alert in no acute distress. She is maintaining O2 saturations in the upper 90s on 5 L/min per nasal cannula. Currently, she denies any worsening shortness of breath, cough or congestion. She is afebrile. Hemodynamically stable. 19.4. Hemoglobin 8.2. Platelets 1009. proBNP 4070. BUN 4. Creatinine 0.37. The patient is seen today October 05, 2023 in follow-up on the regular medical floor. She is currently resting comfortably in bed. Awake and alert in no acute distress. She is maintaining O2 saturations in the 90s on 5 L/min per nasal cannula. She is feeling better today. Her abdomen is less tender. CT scan of the abdomen and pelvis did reveal a 1.5 cm hypodense collection within the subcutaneous tissues right mid abdomen. Within the intraperitoneal region there is a slightly irregular 0.1 x 8.0 cm low-density collection with thick wa ll compatible with an abscess. These are smaller compared to the previous study from 10/03/2023. She had been on Bactrim in the outpatient setting from her discharge from [facility]. Wound cultures. Sputum culture revealed no growth. Blood culture revealed no growth. Count 10.0. Hemoglobin 8.6. Platelets 997. She is continued on DuoNeb inhalations, Symbicort, Solu-Medrol. NicoDerm patch in place. Remains on oral diuretics. Less lower extremity edema noted. Objective - Vital Signs Vital signs: Vital Signs Temp 98.3 F 10/05/23 07:13 Pulse 88 10/05/23 07:43 Resp 20 10/05/23 07:13 BP 162/83 10/05/23 07:13 Pulse Ox 96 10/05/23 07:31 FiO2 Intake & Output 10/04/23 10/05/23 10/05/23 18:59 06:59 18:59 Intake Total 120 Balance 120 Weight 44.9 kg Intake: Oral 120 Other: Voiding Method Toilet # Voids 1 2 - Exam GENERAL EXAM: Alert, pleasant 48-year-old female, on 5 L nasal cannula, sitting up in bed, in no apparent distress. HEAD: Normocephalic. EYES: Normal reaction of pupils, equal size. NOSE: Clear with pink turbinates. THROAT: No erythema or exudates. NECK: No masses, no JVD. CHEST: No chest wall deformity. LUNGS: Equal air entry with diminished breath sounds bilaterally. CVS: S1 and S2 normal with no audible murmur, regular rhythm. ABDOMEN: Abdominal dressing dry and intact. Drainage tube in place. Normal bowel sounds, no guarding or rigidity. SPINE: No scoliosis or deformity SKIN: No rashes CENTRAL NERVOUS SYSTEM: No focal deficits, tone is normal in all 4 extremities. EXTREMITIES: There is 1+ peripheral edema. No clubbing, no cyanosis. Peripheral pulses are intact. - Labs CBC & Chem 7: 10/05/23 09:49 10/04/23 12:39 Labs: Abnormal Lab Results - Last 24 Hours (Table) 10/04/23 10/04/23 10/05/23 Range/Units 12:39 12:39 09:49 WBC 19.4 H (3.8-10.6) k/uL RBC 2.57 L 2.70 L (3.80-5.40) m/uL Hgb 8.2 L 8.6 L (11.4-16.0) gm/dL Hct 27.7 L 28.0 L (34.0-46.0) % MCV 107.5 H 103.8 H (80.0-100.0) fL MCHC 29.8 L 30.7 L (31.0-37.0) g/dL RDW 17.0 H 16.7 H (11.5-15.5) % Plt Count 1009 H* 997 H (150-450) k/uL Neutrophils # 8.3 H (1.3-7.7) k/uL Neutrophils # (Manual) 14.90 H (1.3-7.7) k/uL Monocytes # (Manual) 1.75 H (0-1.0) k/uL Eosinophils # (Manual) 0.78 H (0-0.7) k/uL Metamyelocytes # (Man) 0.19 H (0) k/uL Myelocytes # (Manual) 0.19 H (0) k/uL Macrocytosis Marked A BUN 4.6 L (9.0-27.0) mg/dL Creatinine 0.4 L (0.6-1.5) mg/dL BUN/Creatinine Ratio 11.50 L (12.00-20.00) Ratio Calcium 8.5 L (8.7-10.3) mg/dL Total Bilirubin <0.2 L (0.3-1.2) mg/dL AST 64 H (13-35) U/L Alkaline Phosphatase 333 H (41-126) U/L Total Protein 5.4 L (6.2-8.2) g/dL Albumin 2.6 L (3.8-4.9) g/dL Albumin/Globulin Ratio 0.93 L (1.60-3.17) Ratio Microbiology - Last 24 Hours (Table) 10/02/23 15:55 Anaerobic Culture - Preliminary Abdomen 10/02/23 15:55 Gram Stain - Final Abdomen Wound Culture - Final Escherichia coli 10/01/23 01:25 Blood Culture - Preliminary Blood 10/01/23 01:40 Blood Culture - Preliminary Blood 10/03/23 10:02 Gram Stain - Final Sputum Sputum Culture - Final Assessment and Plan Assessment: Lower extremity edema of unclear etiology. The patient had recently undergone cholecystectomy with complications requiring wound packing and drainage tube in place. Echocardiogram revealed preserved left ventricular systolic function. Mild pulmonary hypertension. Dopplers of the lower extremity were negative for DVT. Initiated on diuretics Recent cholecystectomy at [facility] with complications requiring readmission and drainage tube placement. Wound cultures positive for E. coli Acute on chronic hypoxic respiratory failure secondary to a mild exacerbation of COPD. FEV1 value 66% of predicted. Maintained on Trelegy and albuterol Chronic tobacco dependence stating quit 2 months ago, trying to quit by vaping Respiratory bronchiolitis associated smoking-related interstitial lung disease, right lung wedge biopsy New suspicious right upper lung pulmonary nodule measuring 1.3 cm. Plan for outpatient PET scan Hypertension Hypothyroidism Obstructive sleep apnea Sleeve gastrectomy Splenectomy in 2018 History of anxiety/depression Plan: The patient was seen and evaluated Labs and medications reviewed Wound culture positive for E. coli CT scan of the abdomen reviewed, abscess noted Infectious disease consult placed Continue diuretics Continue bronchodilators, steroids NicoDerm patch in place Titrate down the FiO2 as tolerated We will continue to follow I have personally seen and examined the patient, performed the documentation and the assessment and plan as written. Number of minutes spent on the visit: 10.
--- NOTE | 2023-10-05 14:02 | CDI ---
Documentation Clarification Form Date: 10/05/2023 01:06:57 PM From: Mami Ibarra Phone: [phone] Admit Date: 09/30/2023 10:15:00 PM Patient Name: CaseLaura Visit Number: [id number] Discharge Date: ATTENTION: The Clinical Documentation Specialists (CDI) and [facility] Coding Staff appreciate your assistance in clarifying documentation. Please respond to the clarification below the line at the bottom and electronically sign. The CDI & [facility] Coding staff will review the response and follow-up if needed. Please note: Queries are made part of the Legal Health Record. If you have any questions, please contact the author of this message via ITS. Dr. Keven Kebede The patients principal diagnosis the diagnosis that was chiefly responsible for the admission - has not been clearly identified and clarification is requested. The patient presented with the following bilateral lower extremity edema started two days prior to admission, mild dyspnea on exertion History/Risk factors:48-year-old female presents to the ED for leg swelling. Medical History: COPD, Asthma, CVA, Sleep apnea, CPAP, and smoking related interstitial lung disease. 09/30, Oncology consult. Clinical Indicators: Lab findings, 09/29: Wbc 33.9, Hgb 9.8, plt 1070, Neutrophils 29.15 CXR, 09/29: Diffuse interstitial pattern. Left lower lobe sub segmental atelectasis CXR, 10/01: Similar diffuse interstitial opacities throughout the lungs correlate for atypical pneumonia. Vital Signs, 09/29: B/P 91/53; HR 76; RR 76; SpO2 80% room air Oncology consult, 09/30: Workup including chest xray and lower extremity Doppler unremarkable other than possible pneumonia, started on antibiotics. Treatment: 09/29 Azithromycin ivpb x 1; 09/29 Ceftriaxone ivpb x 1; 09/30 Ceftriaxone ivpb q24h x 4 bags, 10/01 Azithromycin ivpb q24h x 2 bags. 09/30 0.9ns 1L iv fluid bolus Consult:: see above In your professional opinion, can you please clarify which diagnosis, after study, was the reason chiefly responsible for the admission? [ ] Pneumonia [ ] Other, please specify [ ] Unable to determine (Template Last Revised: June 2020) MTDD
[2023-10-05] MEDS: AMOXIC-POT CLAV 875-125MG 1 EACH TAB PO SCH (16:11)
--- NOTE | 2023-10-05 17:28 | CDI ---
Documentation Clarification Form Date: 10/05/2023 02:04:36 PM From: Mami Ibarra RN CCDS Phone: [phone] Admit Date: 09/30/2023 10:15:00 PM Patient Name: Laura Rangel Visit Number: [id number] Discharge Date: ATTENTION: The Clinical Documentation Specialists (CDI) and [facility] Coding Staff appreciate your assistance in clarifying documentation. Please respond to the clarification below the line at the bottom and electronically sign. The CDI & [facility] Coding staff will review the response and follow-up if needed. Please note: Queries are made part of the Legal Health Record. If you have any questions, please contact the author of this message via ITS. Dr. Keven Kebede The Registered Dietitian documented that the patient had unintended weight loss over the last year. Based on this information and the findings below, is there an additional diagnosis that is clinically appropriate for this patient? History/Risk factors: 48-year-old female presents to the ED for leg swelling. Medical History: COPD, Asthma, CVA, Sleep apnea, CPAP, Bariatric surgery and smoking related interstitial lung disease. 09/30, Oncology consult. Clinical Indicators: RD Consult Assessment Current BMI: 18.7: 5ft 1in Usual weight 61.235kg weight loss 16.329kg Related to decreased intake, cholecystitis one year ago. 26% weight loss x 1 year. Nutritional assessment: Fair diet 25-50% consumed. Heart healthy diet. Estimated Nutritional Needs in Kcals: Energy needs Kcal 1415 Estimated Protein Needs: Estimated protein range 1.2- 1.5gm/kg, Estimated protein needs 54 67 grams/day. Estimated formula 1ml/Kcal Estimated fluid needs 1415 Treatment: Ensure Enlive BID, Monitoring po intake and supplement intake. General- healthful diet. Diet Education. Is there an additional diagnosis that is clinically appropriate for this patient? [ ] Moderate Protein Calorie Malnutrition [ ] Severe Protein-Calorie Malnutrition [ ] No additional diagnosis/Not clinically significant [ ] Other condition, please specify [ ] Unable to Determine In responding to this query, please exercise your independent professional judgment. The [facility] Coding Staff and Clinical Documentation Specialists appreciate your assistance in clarifying documentation, maintaining compliance with coding guidelines, accurately documenting patients condition and capturing severity of illness. The fact that a question is asked does not imply that any particular answer is desired or expected. Communication forms are a method of clarifying documentation and are made part of the Legal Health Record. Thank you in advance for your clarification. Last Reviewed October 2022 Reference: Using the ASPEN Guidelines, Undernutrition (Malnutrition) is characterized by at least two of the following six findings. The severity can be determined based on the criteria listed below. Malnutrition Characteristics for Moderate and Severe Malnutrition Type of Malnutrition Acute Illness or Injury Chronic Illness Degree of Malnutrition Non-severe (moderate) Malnutrition Severe Malnutrition Non-severe (moderate) Malnutrition Severe Malnutrition Energy Intake <75% for >7 days = 50% for = 5 days <75% for = 1 month =75% for = 1 month Weight Loss 1-2% in one week, 5% in 1 month, 7.5% in 3 months 2% in one week, >5% in 1 month, >7.5% in 3 months 5% in one month, 7.5% in 3 months, 10% in 6 months, 20% in 1 year >5% in one month, >7.5% in 3 months, >10% in 6 months, >20% in 1 year Body Fat Wasting Mild Moderate Mild Severe Muscle Wasting Mild Moderate Mild Severe Presence of Edema Mild Moderate to Severe Mild Severe Aws Architect Strength Not applicable Measurably Reduced Not applicable Measurably Reduced Source: Brooklynn MartinezV, Chuy P, Alfaro G, et al. Consensus statement: Academy of Nutrition and Dietetics and [place] Society for Parenteral and Enteral Nutrition: characteristics recommended for the identification and documentation of adult malnutrition (undernutrition).THANIA J Parenter Enteral Nutr. 2012;36(3):275-283. (Template Last Revised: October 2022) MTDD
[2023-10-05] MEDS: GABAPENTIN 400 MG CAP PO PRN (20:49)
[2023-10-05] MEDS: ALPRAZolam 1 MG TAB PO PRN (21:41)
--- NOTE | 2023-10-05 21:52 | P.CONS ---
History of Present Illness - Reason for Consult Consult date: 10/05/23 Intra-abdominal abscess Requesting physician: Magdalena Woods - Chief Complaint Nonhealing abdominal wound x weeks - History of Present Illness Patient is a 48-year-old female with a past medical history significant for COPD CVA TIA reflux hypertension sleep apnea interstitial lung disease patient also have a history of cholecystectomy done at [facility] pending patient did have a dehiscence of the lower abdominal wound x 2 that seem to be packed and the patient mention has not received any antibiotic therapy patient presenting to [facility] ER about 4 days ago for evaluation of lower extremity swelling and some dull aching pain but no redness patient on presentation the hospital was afebrile did have a low-grade fever of 99.7 on 10/02/2023 patient did have a white count of 33.9 on admission that has normalized as of this morning to 10,000 patient creatinine has been normal currently 0.4 liver enzymes AST mildly elevated bilirubin less than 0.2 patient did have a cultures obtained from abdominal wound finalized with E. coli that is resistant to Unasyn as well as pip-tazo Bactrim patient is currently being treated with Augmentin infectious disease was consulted for further management of antibiotic therapy patient did have a CT of abdominal pelvis decrease size of the intra-abdominal abscess there appears to be near complete resolution of the subcutaneous abscess at the same level Review of Systems Positive point and negatives has been mentioned in the HPI, complete review of systems was performed and all other systems are negative Past Medical History Past Medical History: Asthma, COPD, CVA/TIA, GERD/Reflux, Hypertension, Musculoskeletal Disorder, Neurologic Disorder, Sleep Apnea/CPAP/BIPAP, Thyroid Disorder Additional Past Medical History / Comment(s): smoking-related interstitial lung disease, doesn't use CPAP, history of seizure at the age of 16 related to med. to stop breast milk, endometriosis, chronic back pain, plantar fasciitis, hx. of Achilles tendinitis, probably antibiotic induced. She also has history of hypothyroidism, ALLERGIC rhinitis, migraines, uses oxygen 2L prn, recent iron infusion, MS , tia 2020 no residual issues, needs cholecystetomy, tinnitus, balance issues, History of Any Multi-Drug Resistant Organisms: None Reported Past Surgical History: Bariatric Surgery, Cholecystectomy, Hysterectomy, Tubal Ligation, Uterine Ablation Additional Past Surgical History / Comment(s): LEEP PROCEDURE X 2, EGD, BACK INJECTIONS FOR PAIN. The patient has also undergone thoracic/thoracoscopic wedge biopsy of the right lung. 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; R and Y bypass at [facility] 2019,TRACHEOTOMY-RESOLVED Past Anesthesia/Blood Transfusion Reactions: Motion Sickness Additional Past Anesthesia/Blood Transfusion Reaction / Comm: no problem w/blood transfusion Past Psychological History: Anxiety, Depression Additional Psychological History / Comment(s): Currently going through a divorce. Smoking Status: Current every day smoker Past Alcohol Use History: None Reported Additional Past Alcohol Use History / Comment(s): STARTED SMOKING AT AGE 14 - STOPPED SMOKING on November 23, 2017. (Heaviest smoking amount was 3/4 pack/day). Pt started smoking again 2020 Past Drug Use History: None Reported - Past Family History Sister(s) Family Medical History: Cancer Mother Family Medical History: Cancer Additional Family Medical History / Comment(s): breast cancer Father Family Medical History: COPD, CVA/TIA, Myocardial Infarction (NM) Additional Family Medical History / Comment(s): HEART PROBLEMS, AT AGE 64 Medications and Allergies Home Medications Medication Instructions Recorded Confirmed Type Levothyroxine Sodium [Synthroid] 50 mcg PO DAILY 01/05/14 10/01/23 History ALPRAZolam [Xanax] 1 mg PO DAILY PRN 11/24/17 10/01/23 History Pantoprazole Sodium [Protonix] 40 mg PO DAILY 05/28/18 10/01/23 History Cyclobenzaprine [Flexeril] 10 mg PO BID PRN 10/29/20 10/01/23 History Metoprolol Succinate (ER) [Toprol 12.5 mg PO DAILY 10/29/20 10/01/23 History XL] Atogepant [Qulipta] 60 mg PO DAILY 08/21/21 10/01/23 History Ofatumumab [Kesimpta Pen] 20 mg SQ Q30D 02/12/22 10/01/23 History HYDROcodone/APAP 10-325MG [[place] 1 tab PO QID PRN 02/19/22 10/01/23 History 10-325] Albuterol Sulfate [Albuterol 2 puff INHALATION RT-Q6H PRN 02/19/23 10/01/23 History Sulfate Hfa] Gabapentin [Neurontin] 400 mg PO TID PRN 02/19/23 10/01/23 History Albuterol Nebulized [Ventolin 2.5 mg INHALATION RT-QID PRN 08/21/23 10/01/23 History Nebulized] Cholecalciferol [Vitamin D3 (25 25 mcg PO DAILY 08/21/23 10/01/23 History Mcg = 1000 Iu)] Famotidine [Pepcid] 20 mg PO HS 08/21/23 10/01/23 History Fluticasone/Umeclidin/Vilanter 1 puff INHALATION RT-DAILY PRN 08/21/23 10/01/23 History [Trelegy Ellipta 100-62.5-25] Ginkgo Biloba [place] Extract [Ginkgo 125 mg PO DAILY 08/21/23 10/01/23 History Biloba] Loperamide HCl [Imodium A-D] 2 - 4 mg PO QID PRN 08/21/23 10/01/23 History Nicotine 14Mg/24Hr Patch [Habitrol] 1 patch TRANSDERM DAILY 08/21/23 10/01/23 History Pravastatin Sodium [Pravachol] 40 mg PO HS 08/21/23 10/01/23 History Promethazine 6.25MG/5Ml [Phenergan 25 mg PO DAILY PRN 08/21/23 10/01/23 History Syrup] Risedronate Sodium [Actonel] 35 mg PO WE 08/21/23 10/01/23 History Sertraline [Zoloft] 50 mg PO DAILY 08/21/23 10/01/23 History Ubrogepant [Ubrelvy] 100 mg PO DAILY PRN 08/21/23 10/01/23 History Vitamin A 2,400 mcg PO DAILY 08/21/23 10/01/23 History Budesonide-Formot 160-4.5 Mcg 2 puff INHALATION RT-BID #1 each 10/06/23 Rx [Symbicort 160-4.5 Mcg Inhaler] Furosemide [Lasix] 40 mg PO DAILY #30 tab 10/06/23 Rx Levofloxacin [Levaquin] 750 mg PO ONCE #10 tab 10/06/23 Rx methylPREDNISolone Dose Pack 24 mg PO DAILY #1 tab 10/06/23 Rx [Medrol Dose Pack] metroNIDAZOLE [Flagyl] 500 mg PO TID #30 tab 10/06/23 Rx Allergies Allergy/AdvReac Type Severity Reaction Status Date / Time bee venom protein (honey bee) Allergy SWELLING , Verified 09/30/23 20:06 AND ITCHING Bleach (Sodium Hypochlorite) Allergy Rash/Hives Verified 09/30/23 20:06 nitrofurantoin Allergy Rash/Hives Verified 09/30/23 20:06 [From Macrobid] nitrofurantoin Allergy Rash/Hives Verified 09/30/23 20:06 macrocrystalline [From Macrobid] moxifloxacin [From Avelox] AdvReac Nausea & Verified 09/30/23 20:06 Vomiting NSAIDS (Non-Steroidal AdvReac Had Verified 09/30/23 20:06 Anti-Inflamma gastric sleeve surgery, causes bleeds. seasonal allergies Allergy congestion Uncoded 09/30/23 20:06 and sneezing Physical Exam Vitals: Vital Signs Temp Pulse Pulse Resp BP Pulse Ox 10/05/23 07:43 88 10/05/23 07:31 94 96 10/05/23 07:13 98.3 F 84 20 162/83 99 10/05/23 02:00 98.4 F 79 20 129/77 97 10/04/23 20:18 96 10/04/23 20:08 92 10/04/23 20:00 18 10/04/23 19:25 98.4 F 80 18 118/72 99 10/04/23 15:52 80 10/04/23 15:39 88 10/04/23 13:33 98.7 F 97 20 99/62 97 10/04/23 12:13 80 10/04/23 12:04 78 Intake and Output 10/04/23 10/05/23 10/05/23 22:59 06:59 14:59 Intake Total 120 Balance 120 Intake: Oral 120 Other: Voiding Method Toilet # Voids 2 GENERAL DESCRIPTION: Middle-aged female lying in bed, no distress. No tachypnea or accessory muscle of respiration use. HEENT: Shows Pallor , no scleral icterus. Oral mucous membrane is dry. No pharyngeal erythema or thrush NECK: Trachea central, no thyromegaly. LUNGS: Unlabored breathing. Clear to auscultation anteriorly. No wheeze or crackle. HEART: S1, S2, regular rate and rhythm. No loud murmur ABDOMEN: Soft, lower abdominal wound minimal drainage no significant tenderness EXTREMITIES: No edema of feet. SKIN: No rash, no masses palpable. NEUROLOGICAL: The patient is awake, alert, oriented x3, mood and affect normal. Results CBC & Chem 7: 10/05/23 09:49 10/04/23 12:39 Labs: Abnormal Lab Results - Last 24 Hours (Table) 10/04/23 10/04/23 Range/Units 12:39 12:39 WBC 19.4 H (3.8-10.6) k/uL RBC 2.57 L (3.80-5.40) m/uL Hgb 8.2 L (11.4-16.0) gm/dL Hct 27.7 L (34.0-46.0) % MCV 107.5 H (80.0-100.0) fL MCHC 29.8 L (31.0-37.0) g/dL RDW 17.0 H (11.5-15.5) % Plt Count 1009 H* (150-450) k/uL Neutrophils # (Manual) 14.90 H (1.3-7.7) k/uL Monocytes # (Manual) 1.75 H (0-1.0) k/uL Eosinophils # (Manual) 0.78 H (0-0.7) k/uL Metamyelocytes # (Man) 0.19 H (0) k/uL Myelocytes # (Manual) 0.19 H (0) k/uL Macrocytosis Marked A BUN 4.6 L (9.0-27.0) mg/dL Creatinine 0.4 L (0.6-1.5) mg/dL BUN/Creatinine Ratio 11.50 L (12.00-20.00) Ratio Calcium 8.5 L (8.7-10.3) mg/dL Total Bilirubin <0.2 L (0.3-1.2) mg/dL AST 64 H (13-35) U/L Alkaline Phosphatase 333 H (41-126) U/L Total Protein 5.4 L (6.2-8.2) g/dL Albumin 2.6 L (3.8-4.9) g/dL Albumin/Globulin Ratio 0.93 L (1.60-3.17) Ratio Microbiology - Last 24 Hours (Table) 10/02/23 15:55 Anaerobic Culture - Preliminary Abdomen 10/02/23 15:55 Gram Stain - Final Abdomen Wound Culture - Final Escherichia coli 10/01/23 01:25 Blood Culture - Preliminary Blood 10/01/23 01:40 Blood Culture - Preliminary Blood 10/03/23 10:02 Gram Stain - Final Sputum Sputum Culture - Final Assessment and Plan (1) Allergy to multiple antibiotics Status: Acute Code(s): Z88.1 - ALLERGY STATUS TO OTHER ANTIBIOTIC AGENTS SNOMED Code(s): 077146462 (2) Leukocytosis Status: Chronic Priority: Medium Code(s): D72.829 - ELEVATED WHITE BLOOD CELL COUNT, UNSPECIFIED SNOMED Code(s): 206265696 (3) Abscess of abdominal cavity Status: Acute Code(s): K65.1 - PERITONEAL ABSCESS SNOMED Code(s): 86873489 Plan: 1patient with the nonhealing lower abdominal wound postsurgical in this patient with abdominal culture growing E. coli that is resistant to Unasyn as well as Zosyn patient did have elevated white count and low-grade fever on admission however those has been trending down. 2leukocytosis more likely due to the intra-abdominal abscess. 3we will suggest Rocephin 2 g daily and oral Flagyl while inpatient however will be able to transition to oral antibiotics on discharge We will follow on clinical condition and cultures to further adjust medication if needed Thank you for this consultation we will follow the patient along with you Dictation was produced using [employer] dictation software. please excuse any grammatical, word or spelling errors.
[2023-10-05] MEDS: metroNIDAZOLE 500 MG TAB PO SCH (22:46)
--- NOTE | 2023-10-05 23:04 | PN ---
PROGRESS NOTE DATE OF SERVICE: 10/05/2023 CHIEF COMPLAINT: Leukocytosis and thrombocytosis. HISTORY OF PRESENT ILLNESS: This lady is suddenly doing a lot better. She is feeling better. She has less shortness of breath. Her laboratory numbers are greatly improved. Her white count has dropped to 10,000. Hemoglobin is 8.6 and platelets dropped below a million at 997. She has grown E coli out of the wound and she will be started on antibiotics. PHYSICAL EXAMINATION: GENERAL: Color is good, and she is awake and alert. CHEST: Clear. CARDIAC: Normal. ABDOMEN: Soft, nontender. IMPRESSION: 1. Probable abscess at the gallbladder surgical site. 2. Leukocytosis - improving. 3. Anemia. 4. Thrombocytosis. 5. Multiple sclerosis. PLAN: Start Augmentin 875 mg twice a day orally and continue to follow. MMODL / IJN: [id number] /
[2023-10-06 01:35] VITALS: RESP 18
[2023-10-06 07:29] VITALS: BP 136/72; TEMP 98.4
[2023-10-06] MEDS: LEVOFLOXACIN 750 MG TAB PO STA (11:11)
[2023-10-06 12:23] LABS: Glucose,Whole Blood 124 mg/dL (70-110)
--- NOTE | 2023-10-06 12:42 | P.PN ---
Subjective Progress Note Date: 10/06/23 This is a pleasant 48-year-old female patient with multiple medical problems including chronic leukocytosis and thrombocytosis followed by hematology, hypothyroidism, chronic obstructive pulmonary disease with FEV1 value 66 of predicted, respiratory bronchiolitis associated smoking-related interstitial iwona ng disease, hypertension, obstructive sleep apnea, multiple abdominal surgeries including sleeve gastrectomy with complications, splenectomy in 2018, recent hysterectomy, recent cholecystectomy again with postoperative complications and follows at [facility] and currently has a packed wound and drainage tube in her abdomen. She has a 30+ year smoking history but states she quit 2 months ago. She presented to the emergency room on September 30, 2023 with complaints of bilateral lower extremity edema. Doppler of the bilateral lower extremities. Chest x-ray reveals similar diffuse interstitial opacities throughout the lungs bilaterally. CT angiogram ruled out pulmonary embolism. There is a suspicious right upper lobe pulmonary nodule measuring 1.3 cm. Extensive interstitial thickening throughout the lungs. Associated groundglass opacities bilaterally with associated pleural scarring. Echocardiogram reveals preserved left ventricular systolic function with ejection fraction of 55 to 60%. Mild pulmonary hypertension no significant valvular heart disease. We are consulted today October 04, 2023 with complaints of shortness of breath. She is seen on the regular medical floor. She is sitting up at the bedside. Awake and alert in no acute distress. She is maintaining O2 saturations in the upper 90s on 5 L/min per nasal cannula. Currently, she denies any worsening shortness of breath, cough or congestion. She is afebrile. Hemodynamically stable. 19.4. Hemoglobin 8.2. Platelets 1009. proBNP 4070. BUN 4. Creatinine 0.37. The patient is seen today October 05, 2023 in follow-up on the regular medical floor. She is currently resting comfortably in bed. Awake and alert in no acute distress. She is maintaining O2 saturations in the 90s on 5 L/min per nasal cannula. She is feeling better today. Her abdomen is less tender. CT scan of the abdomen and pelvis did reveal a 1.5 cm hypodense collection within the subcutaneous tissues right mid abdomen. Within the intraperitoneal region there is a slightly irregular 0.1 x 8.0 cm low-density collection with thick wa ll compatible with an abscess. These are smaller compared to the previous study from 10/03/2023. She had been on Bactrim in the outpatient setting from her discharge from [facility]. Wound cultures. Sputum culture revealed no growth. Blood culture revealed no growth. Count 10.0. Hemoglobin 8.6. Platelets 997. She is continued on DuoNeb inhalations, Symbicort, Solu-Medrol. NicoDerm patch in place. Remains on oral diuretics. Less lower extremity edema noted. The patient is seen today October 06, 2023 in follow-up on the regular medical floor. She is awake and alert in no acute distress. Resting fairly comfortably in bed. Denies any worsening shortness of breath, cough or congestion. Denies any significant abdominal discomfort. Her wound has minimal drainage. She has been initiated on ceftriaxone and oral Flagyl per ID services. Wound cultures were positive for E. coli. Sputum culture revealed no growth. Blood cultures revealed no growth. Glucose 124. Procalcitonin was 0.12. She remains on DuoNeb inhalations, Symbicort, Solu-Medrol. Objective - Vital Signs Vital signs: Vital Signs Temp 98.4 F 10/06/23 07:16 Pulse 72 10/06/23 11:30 Resp 18 10/06/23 07:16 BP 136/72 10/06/23 07:16 Pulse Ox 99 10/06/23 07:59 FiO2 Intake & Output 10/05/23 10/06/23 10/06/23 18:59 06:59 18:59 Intake Total 120 Balance 120 Weight 43.2 kg 47.5 kg Intake: Oral 120 Other: Voiding Method Toilet # Voids 2 - Exam GENERAL EXAM: Alert, 48-year-old female, on 5 L nasal cannula, in no apparent distress. HEAD: Normocephalic. EYES: Normal reaction of pupils, equal size. NOSE: Clear with pink turbinates. THROAT: No erythema or exudates. NECK: No masses, no JVD. CHEST: No chest wall deformity. LUNGS: Equal air entry with diminished breath sounds bilaterally. CVS: S1 and S2 normal with no audible murmur, regular rhythm. ABDOMEN: Abdominal wound with minimal drainage. Normal bowel sounds, no guarding or rigidity. SPINE: No scoliosis or deformity SKIN: No rashes CENTRAL NERVOUS SYSTEM: No focal deficits, tone is normal in all 4 extremities. EXTREMITIES: There is 1+ peripheral edema. No clubbing, no cyanosis. Peripheral pulses are intact. - Labs CBC & Chem 7: 10/05/23 09:49 10/04/23 12:39 Labs: Abnormal Lab Results - Last 24 Hours (Table) 10/05/23 10/06/23 Range/Units 11:18 12:20 POC Glucose (mg/dL) 124 H (70-110) mg/dL Procalcitonin 0.12 H (0.02-0.09) ng/mL Assessment and Plan Assessment: Lower extremity edema of unclear etiology. The patient had recently undergone cholecystectomy with complications requiring wound packing and drainage tube in place. Echocardiogram revealed preserved left ventricular systolic function. Mild pulmonary hypertension. Dopplers of the lower extremity were negative for DVT. Initiated on diuretics Recent cholecystectomy at [facility] with complications requiring readmission and drainage tube placement. Wound cultures positive for E. coli. Currently on ceftriaxone and Flagyl Acute on chronic hypoxic respiratory failure secondary to a mild exacerbation of COPD. FEV1 value 66% of predicted. Maintained on Trelegy and albuterol Chronic tobacco dependence stating quit 2 months ago, trying to quit by vaping Respiratory bronchiolitis associated smoking-related interstitial lung disease, right lung wedge biopsy New suspicious right upper lung pulmonary nodule measuring 1.3 cm. Plan for outpatient PET scan Hypertension Hypothyroidism Obstructive sleep apnea Sleeve gastrectomy Splenectomy in 2018 History of anxiety/depression Plan: The patient was seen and evaluated Labs and medications reviewed Wound culture positive for E. coli Currently on ceftriaxone and oral Flagyl Continue diuretics, bronchodilators, steroids Titrate down the FiO2 as tolerated We will continue to follow I have personally seen and examined the patient, performed the documentation and the assessment and plan as written. Number of minutes spent on the visit: 10.
[2023-10-06 15:26] VITALS: BMI 19.8
[2023-10-06 15:30] VITALS: PULSE 68
--- NOTE | 2023-10-06 17:32 | P.PN ---
Subjective Progress Note Date: 10/06/23 Principal diagnosis: Reason for follow-up is intra-abdominal abscess Patient is a 48-year-old female with a past medical history significant for COPD CVA TIA reflux hypertension sleep apnea interstitial lung disease patient also have a history of cholecystectomy done at [facility] pending patient did have a dehiscence of the lower abdominal wound x 2 that seem to be packed presented to hospital with lower extremity swelling CT abdominal pelvis did show decrease in size of the abscesses abdominal culture grew E. coli. On today's evaluation that is 10/06/2023, Patient is afebrile this morning and denies any chills, patient mention breathing comfortably and is currently on room air, patient denies any chest pain occasional cough patient denies any abdominal pain no diarrhea no nausea no vomiting, patient mention feeling better Objective - Vital Signs Vital signs: Vital Signs Temp 98.4 F 10/06/23 07:16 Pulse 72 10/06/23 11:30 Resp 18 10/06/23 07:16 BP 136/72 10/06/23 07:16 Pulse Ox 99 10/06/23 07:59 FiO2 Intake & Output 10/05/23 10/06/23 10/06/23 18:59 06:59 18:59 Intake Total 120 Balance 120 Weight 43.2 kg 47.5 kg Intake: Oral 120 Other: Voiding Method Toilet # Voids 2 - Exam GENERAL DESCRIPTION: Middle-age male lying in bed in no distress RESPIRATORY SYSTEM: Unlabored breathing , decreased breath sounds at bases HEART: S1 S2 regular rate and rhythm , ABDOMEN: Soft , no tenderness EXTREMITIES: No edema feet - Labs CBC & Chem 7: 10/05/23 09:49 10/04/23 12:39 Labs: Abnormal Lab Results - Last 24 Hours (Table) 10/05/23 10/06/23 Range/Units 11:18 12:20 POC Glucose (mg/dL) 124 H (70-110) mg/dL Procalcitonin 0.12 H (0.02-0.09) ng/mL Microbiology - Last 24 Hours (Table) 10/01/23 01:25 Blood Culture - Final Blood 10/01/23 01:40 Blood Culture - Final Blood Assessment and Plan (1) Allergy to multiple antibiotics Status: Acute Code(s): Z88.1 - ALLERGY STATUS TO OTHER ANTIBIOTIC AGENTS SNOMED Code(s): 431813743 (2) Leukocytosis Status: Chronic Priority: Medium Code(s): D72.829 - ELEVATED WHITE BLOOD CELL COUNT, UNSPECIFIED SNOMED Code(s): 458589165 (3) Abscess of abdominal cavity Status: Acute Code(s): K65.1 - PERITONEAL ABSCESS SNOMED Code(s): 90219192 Plan: 1patient with the nonhealing lower abdominal wound postsurgical in this patient with abdominal culture growing E. coli that is resistant to Unasyn as well as Zosyn patient did have elevated white count and low-grade fever on admission however those has been trending down. 2patient to continue with Rocephin 2 g daily and oral Flagyl while inpatient however will be able to transition to oral Ceftin and Flagyl x 10 days on discharge 3pack abdominal wound with Aquacel Ag rope change daily discussed with the nursing staff Dictation was produced using [employer] dictation software. please excuse any grammatical, word or spelling errors. Time with Patient: Less than 30
--- NOTE | 2023-10-06 21:07 | DS ---
DISCHARGE SUMMARY CHIEF COMPLAINT: Leukocytosis. HISTORY OF PRESENT ILLNESS AND PHYSICAL EXAMINATION: Details of this lady's history and physical can be found in the initial workup. LABORATORY STUDIES: While she is in the hospital, she had laboratory studies, details of which can be found in the laboratory section of her chart. COURSE IN THE HOSPITAL: After admission, she was placed on bedrest, started intravenous fluids. She had been treated in [place] where apparently they found an abscess in the gallbladder bed area. She had had a markedly elevated white count when she was admitted to that hospital. When she came in to the hospital here, her white count was still around 25,000 to 35,000. She did not have any significant problem with fever or chills. She was seen by Oncology. She did develop an increased shortness of breath and she did respond to diuretics. Her echocardiogram was unremarkable as was her BNP. Toward the end of her hospitalization, her white count suddenly dropped to around 10,000 and she started to feel much better. She still had some purulent drainage from the small incisions in the right side of the abdomen. However, breathing improved and she was doing well and it was felt that she could be discharged to outpatient followup and she went home on the . She will be on her usual medications with activity and she will be kept on a diuretic and an antibiotic. She will be seen in the office in several days. FINAL DIAGNOSES: 1. Leukocytosis. 2. Intraabdominal abscess. 3. Thrombocytosis. 4. Status post splenectomy. 5. Multiple sclerosis. 6. Chronic obstructive pulmonary disease. 7. Episode of acute congestive heart failure. OPERATIONS: None. CONSULTATIONS: Pulmonology and Oncology as well as Infectious Disease, she is improved. MMODL / IJN: [id number] /
[2023-10-07] MEDS ORDERED: methylPREDNISolone 4 MG TAB TAPER PO SCH (09:00)
--- NOTE | 2023-10-28 10:06 | CDI ---
Documentation Clarification Form Date: 10/05/2023 01:06:57 PM From: Mami Ibarra Phone: [phone] Admit Date: 09/30/2023 10:15:00 PM Patient Name: CaseLaura Visit Number: [id number] Discharge Date: ATTENTION: The Clinical Documentation Specialists (CDI) and [facility] Coding Staff appreciate your assistance in clarifying documentation. Please respond to the clarification below the line at the bottom and electronically sign. The CDI & [facility] Coding staff will review the response and follow-up if needed. Please note: Queries are made part of the Legal Health Record. If you have any questions, please contact the author of this message via ITS. Dr. Keven Kebede The patients principal diagnosis the diagnosis that was chiefly responsible for the admission - has not been clearly identified and clarification is requested. The patient presented with the following bilateral lower extremity edema started two days prior to admission, mild dyspnea on exertion History/Risk factors:48-year-old female presents to the ED for leg swelling. Medical History: COPD, Asthma, CVA, Sleep apnea, CPAP, and smoking related interstitial lung disease. 09/30, Oncology consult. Clinical Indicators: Lab findings, 09/29: Wbc 33.9, Hgb 9.8, plt 1070, Neutrophils 29.15 CXR, 09/29: Diffuse interstitial pattern. Left lower lobe sub segmental atelectasis CXR, 10/01: Similar diffuse interstitial opacities throughout the lungs correlate for atypical pneumonia. Vital Signs, 09/29: B/P 91/53; HR 76; RR 76; SpO2 80% room air Oncology consult, 09/30: Workup including chest xray and lower extremity Doppler unremarkable other than possible pneumonia, started on antibiotics. Treatment: 09/29 Azithromycin ivpb x 1; 09/29 Ceftriaxone ivpb x 1; 09/30 Ceftriaxone ivpb q24h x 4 bags, 10/01 Azithromycin ivpb q24h x 2 bags. 09/30 0.9ns 1L iv fluid bolus Consult:: see above In your professional opinion, can you please clarify which diagnosis, after study, was the reason chiefly responsible for the admission? [ ] Pneumonia [ ] Other, please specify [ ] Unable to determine (Template Last Revised: June 2020) MTDD
--- NOTE | 2023-11-07 01:31 | MISC ---
MISCELLANOUS REPORT Pneumonia. MMODL / IJN: [id number] /
--- NOTE | 2023-11-07 01:31 | MISC ---
MISCELLANOUS REPORT Moderate protein-calorie malnutrition. MMODL / IJN: [id number] /
== END 2023-10-06 16:42 | disposition home health service (06) | DRG 193 ==
LOC: EC 19:19 → 5NMEDONC 22:15
PROVIDERS: ADMIT Family Medicine; ATTEND Family Medicine
DX: J18.9 Pneumonia, unspecified organism (principal); J96.21 Acute and chronic respiratory failure with hypoxia; K65.1 Peritoneal abscess; J44.0 Chronic obstructive pulmonary disease with (acute) lower respiratory infection; E44.0 Moderate protein-calorie malnutrition; T81.41XA Infection following a procedure, superficial incisional surgical site, initial encounter; J44.1 Chronic obstructive pulmonary disease with (acute) exacerbation; J96.11 Chronic respiratory failure with hypoxia; Z68.1 Body mass index [BMI] 19.9 or less, adult; M79.89 Other specified soft tissue disorders; D75.839 Thrombocytosis, unspecified; I27.20 Pulmonary hypertension, unspecified; G47.33 Obstructive sleep apnea (adult) (pediatric); F32.A Depression, unspecified; F41.9 Anxiety disorder, unspecified; G35 Multiple sclerosis; D64.9 Anemia, unspecified; E03.9 Hypothyroidism, unspecified; E61.1 Iron deficiency; I50.9 Heart failure, unspecified; I11.0 Hypertensive heart disease with heart failure; G89.29 Other chronic pain; M54.9 Dorsalgia, unspecified; J30.9 Allergic rhinitis, unspecified; G43.909 Migraine, unspecified, not intractable, without status migrainosus; B96.20 Unspecified Escherichia coli [E. coli] as the cause of diseases classified elsewhere; Z79.890 Hormone replacement therapy; Z79.51 Long term (current) use of inhaled steroids; N92.0 Excessive and frequent menstruation with regular cycle; Z79.899 Other long term (current) drug therapy; Z86.73 Personal history of transient ischemic attack (TIA), and cerebral infarction without residual deficits; Z90.49 Acquired absence of other specified parts of digestive tract; Z90.710 Acquired absence of both cervix and uterus; Z90.81 Acquired absence of spleen; Z91.148 Patient's other noncompliance with medication regimen for other reason; Z91.199 Patient's noncompliance with other medical treatment and regimen due to unspecified reason; Z92.3 Personal history of irradiation; Z91.030 Bee allergy status; Y84.8 Other medical procedures as the cause of abnormal reaction of the patient, or of later complication, without mention of misadventure at the time of the procedure; Z82.49 Family history of ischemic heart disease and other diseases of the circulatory system; Z88.6 Allergy status to analgesic agent; Z88.1 Allergy status to other antibiotic agents; Z98.84 Bariatric surgery status; Z98.51 Tubal ligation status
CPT/HCPCS: 36415; 71045; 71046; 71275; 74177; 80053; 81206; 81270; 82565; 82607; 82728; 82746; 83540; 83550; 83605; 83735; 83880; 84100; 84145; 84520; 85025; 85379; 85610; 85730; 87040; 87070; 87075; 87077; 87186; 87205; 87449; 93005; 93306; 93970; 94640; 94760; 96361; 96365; 96375; 99285

== ENCOUNTER 2023-10-14 22:47 | Emergency (ER) | payer OTHER ==
[2023-10-14] MEDS: MORPHINE SULFATE 4 MG/ML SYRINGE IV STA (23:24)
--- NOTE | 2023-10-14 23:39 | ED ---
General Adult HPI - General Chief complaint: Vaginal Bleeding Stated complaint: Vaginal Discharge Time Seen by Provider: 10/14/23 22:53 Source: patient Mode of arrival: ambulatory Limitations: no limitations - History of Present Illness Initial comments: Patient is a 48-year-old woman who presents for evaluation of generalized abdominal pain. Patient states that this had started yesterday. She describes it as a diffuse cramping pain. She has not noticed worsening or relieving factors. She presents today because in addition she had some bloody vaginal discharge. The patient had 1 episode of this. She does bring a picture and there is approximately quarter sized spot on paper. The patient has not noted change in urination. She did have 1 bowel movement that she described as nearly watery. The patient notes that she continues to take metronidazole and Levaquin that she had been prescribed when she left the hospital 6 days ago. Patient has been taking treatment for abdominal abscess that appears related to previous cholecystectomy. Has not had fever or chills. No chest pain, palpitations, dyspnea or cough. Onset/Timin -: days(s) Location: abdomen Radiation: non-radiation Quality: other Consistency: intermittent Improves with: none Worsens with: none Treatments Prior to Arrival: none - Related Data Home Medications Medication Instructions Recorded Confirmed Levothyroxine Sodium [Synthroid] 50 mcg PO DAILY 01/05/14 10/01/23 ALPRAZolam [Xanax] 1 mg PO DAILY PRN 11/24/17 10/01/23 Pantoprazole Sodium [Protonix] 40 mg PO DAILY 05/28/18 10/01/23 Cyclobenzaprine [Flexeril] 10 mg PO BID PRN 10/29/20 10/01/23 Metoprolol Succinate (ER) [Toprol 12.5 mg PO DAILY 10/29/20 10/01/23 XL] Atogepant [Qulipta] 60 mg PO DAILY 08/21/21 10/01/23 Ofatumumab [Kesimpta Pen] 20 mg SQ Q30D 02/12/22 10/01/23 HYDROcodone/APAP 10-325MG [Kirklin 1 tab PO QID PRN 02/19/22 10/01/23 10-325] Albuterol Sulfate [Albuterol 2 puff INHALATION RT-Q6H PRN 02/19/23 10/01/23 Sulfate Hfa] Gabapentin [Neurontin] 400 mg PO TID PRN 02/19/23 10/01/23 Albuterol Nebulized [Ventolin 2.5 mg INHALATION RT-QID PRN 08/21/23 10/01/23 Nebulized] Cholecalciferol [Vitamin D3 (25 25 mcg PO DAILY 08/21/23 10/01/23 Mcg = 1000 Iu)] Famotidine [Pepcid] 20 mg PO HS 08/21/23 10/01/23 Fluticasone/Umeclidin/Vilanter 1 puff INHALATION RT-DAILY PRN 08/21/23 10/01/23 [Trelegy Ellipta 100-62.5-25] Ginkgo Biloba Plum Branch Extract [Ginkgo 125 mg PO DAILY 08/21/23 10/01/23 Biloba] Loperamide HCl [Imodium A-D] 2 - 4 mg PO QID PRN 08/21/23 10/01/23 Nicotine 14Mg/24Hr Patch [Habitrol] 1 patch TRANSDERM DAILY 08/21/23 10/01/23 Pravastatin Sodium [Pravachol] 40 mg PO HS 08/21/23 10/01/23 Promethazine 6.25MG/5Ml [Phenergan 25 mg PO DAILY PRN 08/21/23 10/01/23 Syrup] Risedronate Sodium [Actonel] 35 mg PO WE 08/21/23 10/01/23 Sertraline [Zoloft] 50 mg PO DAILY 08/21/23 10/01/23 Ubrogepant [Ubrelvy] 100 mg PO DAILY PRN 08/21/23 10/01/23 Vitamin A 2,400 mcg PO DAILY 08/21/23 10/01/23 Previous Rx's Medication Instructions Recorded Budesonide-Formot 160-4.5 Mcg 2 puff INHALATION RT-BID #1 each 10/06/23 [Symbicort 160-4.5 Mcg Inhaler] Furosemide [Lasix] 40 mg PO DAILY #30 tab 10/06/23 Levofloxacin [Levaquin] 750 mg PO ONCE #10 tab 10/06/23 Nystatin 100,000 Unit/ml Susp 5 ml PO QID #140 ml 10/06/23 [Mycostatin Oral Susp] methylPREDNISolone Dose Pack 24 mg PO DAILY #1 tab 10/06/23 [Medrol Dose Pack] metroNIDAZOLE [Flagyl] 500 mg PO TID #30 tab 10/06/23 Allergies Allergy/AdvReac Type Severity Reaction Status Date / Time bee venom protein (honey bee) Allergy SWELLING , Verified 09/30/23 20:06 AND ITCHING Bleach (Sodium Hypochlorite) Allergy Rash/Hives Verified 09/30/23 20:06 nitrofurantoin Allergy Rash/Hives Verified 09/30/23 20:06 [From Macrobid] nitrofurantoin Allergy Rash/Hives Verified 09/30/23 20:06 macrocrystalline [From Macrobid] moxifloxacin [From Avelox] AdvReac Nausea & Verified 09/30/23 20:06 Vomiting NSAIDS (Non-Steroidal AdvReac Had Verified 09/30/23 20:06 Anti-Inflamma gastric sleeve surgery, causes bleeds. seasonal allergies Allergy congestion Uncoded 09/30/23 20:06 and sneezing Review of Systems ROS Statement: Those systems with pertinent positive or pertinent negative responses have been documented in the HPI. ROS Other: All systems not noted in ROS Statement are negative. Constitutional: Denies: fever, chills, weakness Respiratory: Denies: cough, dyspnea Cardiovascular: Reports: edema (Bilateral ankle edema). Denies: chest pain, palpitations Gastrointestinal: Reports: as per HPI, abdominal pain, nausea, diarrhea. Denies: vomiting, constipation, melena, hematochezia Genitourinary: Reports: discharge. Denies: urgency, dysuria, frequency, hematuria Musculoskeletal: Denies: back pain Skin: Denies: rash Neurological: Denies: headache, weakness Past Medical History Past Medical History: Asthma, COPD, CVA/TIA, GERD/Reflux, Hypertension, Musculoskeletal Disorder, Neurologic Disorder, Sleep Apnea/CPAP/BIPAP, Thyroid Disorder Additional Past Medical History / Comment(s): smoking-related interstitial lung disease, doesn't use CPAP, history of seizure at the age of 16 related to med. to stop breast milk, endometriosis, chronic back pain, plantar fasciitis, hx. of Achilles tendinitis, probably antibiotic induced. She also has history of hypothyroidism, ALLERGIC rhinitis, migraines, uses oxygen 2L prn, recent iron infusion, MS , tia 2020 no residual issues, needs cholecystetomy, tinnitus, balance issues, History of Any Multi-Drug Resistant Organisms: None Reported Past Surgical History: Bariatric Surgery, Cholecystectomy, Hysterectomy, Tubal Ligation, Uterine Ablation Additional Past Surgical History / Comment(s): LEEP PROCEDURE X 2, EGD, BACK INJECTIONS FOR PAIN. The patient has also undergone thoracic/thoracoscopic wedge biopsy of the right lung. 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; R and Y bypass at [facility] 2019,TRACHEOTOMY-RESOLVED Past Anesthesia/Blood Transfusion Reactions: Motion Sickness Additional Past Anesthesia/Blood Transfusion Reaction / Comment(s): no problem w/blood transfusion Past Psychological History: Anxiety, Depression Smoking Status: Current every day smoker Past Alcohol Use History: None Reported Past Drug Use History: None Reported - Past Family History Sister(s) Family Medical History: Cancer Mother Family Medical History: Cancer Additional Family Medical History / Comment(s): breast cancer Father Family Medical History: COPD, CVA/TIA, Myocardial Infarction ([place]) Additional Family Medical History / Comment(s): HEART PROBLEMS, AT AGE 64 General Exam Limitations: no limitations General appearance: alert, in no apparent distress Head exam: Present: atraumatic, normocephalic Eye exam: Present: normal appearance. Absent: scleral icterus, conjunctival injection Neck exam: Present: normal inspection Respiratory exam: Present: normal lung sounds bilaterally. Absent: respiratory distress, wheezes, rales, rhonchi, stridor, accessory muscle use Cardiovascular Exam: Present: regular rate, normal rhythm, normal heart sounds. Absent: systolic murmur, diastolic murmur, rubs, gallop GI/Abdominal exam: Present: soft. Absent: distended, tenderness, guarding, rebound, rigid, mass External exam: Present: normal external exam. Absent: erythema, lesions, lacerations Speculum exam: Absent: vaginal bleeding, laceration By manual exam: Present: normal by manual exam Extremities exam: Present: normal inspection, normal capillary refill, pedal edema (Edema at the ankles bilaterally). Absent: calf tenderness Back exam: Present: normal inspection. Absent: CVA tenderness (R), CVA tende rness (L) Neurological exam: Present: alert Skin exam: Present: warm, dry, intact, normal color. Absent: rash Course Vital Signs 10/14/23 10/14/23 10/15/23 22:49 23:45 00:00 Temperature 98.1 F Pulse Rate 102 H 93 90 Respiratory 16 18 14 Rate Blood Pressure 119/78 125/85 125/85 O2 Sat by Pulse 95 97 95 Oximetry 10/15/23 10/15/23 10/15/23 01:00 02:00 03:00 Temperature Pulse Rate 98 96 85 Respiratory 12 20 16 Rate Blood Pressure 134/86 121/80 127/78 O2 Sat by Pulse 95 97 97 Oximetry 10/15/23 10/15/23 10/15/23 04:00 05:00 06:00 Temperature 98.6 F Pulse Rate 84 80 90 Respiratory 18 18 16 Rate Blood Pressure 128/84 107/68 137/88 O2 Sat by Pulse 94 L 97 97 Oximetry Medical Decision Making - Medical Decision Making Patient is 48-year-old woman here to have evaluation for abdominal pain and for vaginal bleeding. The patient has had relief of symptoms in relation to the pain and she has not had further bleeding since being here. I went over the results with the patient and she did request vaginal exam as her label printing machinist has closed office. On the exam there is no obvious source of bleeding. There is a trace of dried blood but no active bleeding. Will have the patient follow with a new label printing machinist to ensure that there is not a lesion that requires b iopsy. We discussed appropriate further care and follow-up as well as return parameters. Was pt. sent in by a medical professional or institution ([facility], LEGAL MEDIATOR, urgent care, hospital, or residential...) When possible be specific @ -[No] Did you speak to anyone other than the patient for history (EMS, parent, family, police, friend...)? What history was obtained from this source @ -[No] Did you review nursing and triage notes (agree or disagree)? Why? @ -[I reviewed and agree with nursing and triage notes] Were old charts reviewed (outside hosp., previous admission, EMS record, old EK G, old radiological studies, urgent care reports/EKG's, residential records)? Report findings @ -[No old charts were reviewed] Differential Diagnosis (chest pain, altered mental status, abdominal pain women, abdominal pain men, vaginal bleeding, weakness, fever, dyspnea, syncope, headache, dizziness, GI bleed, back pain, seizure, CVA, palpatations, mental health, musculoskeletal)? @ -[Differential Abdominal Pain Women: Appendicitis, Cholecystitis, diverticulosis, ischemic bowel, pancreatitis, hepatitis, UTI, gastroenteritis, AAA, incarcerated hernia, bowel obstruction, constipation, inflammatory bowel, hepatitis, peptic ulcer disease, splenic infarction, perforated viscus, vulvitis, ovarian torsion, PID, kidney stone, placenta abruption, this is not meant to be an all-inclusive list EKG interpreted by me (3pts min.). @ -[As above] X-rays interpreted by me (1pt min.). @ -[None done] CT interpreted by me (1pt min.). @ -[None done] U/S interpreted by me (1pt. min.). @ -[None done] What testing was considered but not performed or refused? (CT, X-rays, U/S, labs)? Why? @ -[None] What meds were considered but not given or refused? Why? @ -[None] Did you discuss the management of the patient with other professionals (professionals i.e. , PA, LEGAL MEDIATOR, lab, RT, psych nurse, social media community manager, stud driver, teacher, business services officer, case therapist)? Give summary @ -[No] Was smoking cessation discussed for >3mins.? @ -[No] Was critical care preformed (if so, how long)? @ -[No] Were there social determinants of health that impacted care today? How? (Homelessness, low income, unemployed, alcoholism, drug addiction, transportation, low edu. Level, literacy, decrease access to med. care, senior care, rehab)? @ -[No] Was there de-escalation of care discussed even if they declined (Discuss DNR or withdrawal of care, Hospice)? DNR status @ -[No] What co-morbidities impacted this encounter? (DM, HTN, Smoking, COPD, CAD, Cancer, CVA, ARF, Chemo, Hep., AIDS, mental health diagnosis, sleep apnea, morbid obesity)? @ -[None] Was patient admitted / discharged? Hospital course, mention meds given and route, prescriptions, significant lab abnormalities, going to OR and other pertinent info. @ -[Patient is 48-year-old woman here for abdominal pain. CT scan shows that she is continue to have improvement in the previously identified abscess. In addition patient has had some vaginal bleeding but I do not find source here and patient will need to follow-up with label printing machinist. We discussed appropriate further care and follow-up as well as return parameters for these conditions. Undiagnosed new problem with uncertain prognosis? @ -[No] Drug Therapy requiring intensive monitoring for toxicity (Heparin, Nitro, Insulin, Cardizem)? @ -[No] Were any procedures done? @ -[No] Diagnosis/symptom? @ -[Acute vaginal bleeding Abdominal pain, acute on chronic Acute, or Chronic, or Acute on Chronic? @ -[default] Uncomplicated (without systemic symptoms) or Complicated (systemic symptoms)? @ -Uncomplicated Side effects of treatment? @ -[No] Exacerbation, Progression, or Severe Exacerbation? @ -[No] Poses a threat to life or bodily function? How? (Chest pain, [place], [place], pneumonia, PE, COPD, DKA, ARF, appy, cholecystitis, CVA, Diverticulitis, Homicidal, Suicidal, threat to staff... and all critical care pts) @ -[No] - Lab Data Result diagrams: 10/14/23 23:36 10/14/23 23:36 Lab Results 10/14/23 10/14/23 10/14/23 Range/Units 23:36 23:36 23:36 WBC 12.5 H (3.8-10.6) k/uL RBC 3.08 L (3.80-5.40) m/uL Hgb 10.0 L (11.4-16.0) gm/dL Hct 32.4 L (34.0-46.0) % MCV 105.1 H (80.0-100.0) fL MCH 32.3 (25.0-35.0) pg MCHC 30.7 L (31.0-37.0) g/dL RDW 16.4 H (11.5-15.5) % Plt Count 680 H (150-450) k/uL MPV 8.1 Neutrophils % 68 % Lymphocytes % 19 % Monocytes % 10 % Eosinophils % 3 % Basophils % 0 % Neutrophils # 8.5 H (1.3-7.7) k/uL Lymphocytes # 2.3 (1.0-4.8) k/uL Monocytes # 1.3 H (0-1.0) k/uL Eosinophils # 0.3 (0-0.7) k/uL Basophils # 0.0 (0-0.2) k/uL Hypochromasia Moderate Anisocytosis Slight Macrocytosis Moderate Sodium 133 L (137-145) mmol/L Potassium 4.6 (3.5-5.1) mmol/L Chloride 103 (98-107) mmol/L Carbon Dioxide 25 (22-30) mmol/L Anion Gap 5 mmol/L BUN 8 (7-17) mg/dL Creatinine 0.58 (0.52-1.04) mg/dL Est GFR (CKD-EPI)AfAm >90 (>60 ml/min/1.73 sqM) Est GFR (CKD-EPI)NonAf >90 (>60 ml/min/1.73 sqM) Glucose 68 L (74-99) mg/dL Plasma Lactic Acid Miguel Angel 1.4 (0.7-2.0) mmol/L Calcium 8.1 L (8.4-10.2) mg/dL Total Bilirubin 0.6 (0.2-1.3) mg/dL AST 113 H (14-36) U/L ALT 28 (4-34) U/L Alkaline Phosphatase 252 H (38-126) U/L C-Reactive Protein 2.2 H (<1.0) mg/dL Total Protein 5.7 L (6.3-8.2) g/dL Albumin 3.0 L (3.5-5.0) g/dL Urine Color Urine Appearance (Clear) Urine pH (5.0-8.0) Ur Specific [place] (1.001-1.035) Urine Protein (Negative) Urine Glucose (UA) (Negative) Urine Ketones (Negative) Urine Blood (Negative) Urine Nitrite (Negative) Urine Bilirubin (Negative) Urine Urobilinogen (<2.0) mg/dL Ur Leukocyte Esterase (Negative) Urine RBC (0-5) /hpf Urine WBC (0-5) /hpf Ur Squamous Epith Cells (0-4) /hpf Urine HCG, Qual (Not Detectd) 10/15/23 10/15/23 Range/Units 02:25 02:25 WBC (3.8-10.6) k/uL RBC (3.80-5.40) m/uL Hgb (11.4-16.0) gm/dL Hct (34.0-46.0) % MCV (80.0-100.0) fL MCH (25.0-35.0) pg MCHC (31.0-37.0) g/dL RDW (11.5-15.5) % Plt Count (150-450) k/uL MPV Neutrophils % % Lymphocytes % % Monocytes % % Eosinophils % % Basophils % % Neutrophils # (1.3-7.7) k/uL Lymphocytes # (1.0-4.8) k/uL Monocytes # (0-1.0) k/uL Eosinophils # (0-0.7) k/uL Basophils # (0-0.2) k/uL Hypochromasia Anisocytosis Macrocytosis Sodium (137-145) mmol/L Potassium (3.5-5.1) mmol/L Chloride (98-107) mmol/L Carbon Dioxide (22-30) mmol/L Anion Gap mmol/L BUN (7-17) mg/dL Creatinine (0.52-1.04) mg/dL Est GFR (CKD-EPI)AfAm (>60 ml/min/1.73 sqM) Est GFR (CKD-EPI)NonAf (>60 ml/min/1.73 sqM) Glucose (74-99) mg/dL Plasma Lactic Acid Miguel Angel (0.7-2.0) mmol/L Calcium (8.4-10.2) mg/dL Total Bilirubin (0.2-1.3) mg/dL AST (14-36) U/L ALT (4-34) U/L Alkaline Phosphatase (38-126) U/L C-Reactive Protein (<1.0) mg/dL Total Protein (6.3-8.2) g/dL Albumin (3.5-5.0) g/dL Urine Color Colorless Urine Appearance Clear (Clear) Urine pH 6.5 (5.0-8.0) Ur Specific [place] 1.005 (1.001-1.035) Urine Protein Negative (Negative) Urine Glucose (UA) Negative (Negative) Urine Ketones Negative (Negative) Urine Blood Trace H (Negative) Urine Nitrite Negative (Negative) Urine Bilirubin Negative (Negative) Urine Urobilinogen <2.0 (<2.0) mg/dL Ur Leukocyte Esterase Small H (Negative) Urine RBC 1 (0-5) /hpf Urine WBC 2 (0-5) /hpf Ur Squamous Epith Cells <1 (0-4) /hpf Urine HCG, Qual Not Detected (Not Detectd) Disposition Clinical Impression: Vaginal bleeding, Abdominal pain Disposition: HOME SELF-CARE Condition: Good Instructions (If sedation given, give patient instructions): Dysmenorrhea (ED), Abdominal Pain (ED) Is patient prescribed a controlled substance at d/c from ED?: No Referrals: Keven Kebede MD [Primary Care Provider] - 1-2 days Giselle Brewer DO [Doctor of Osteopathic Medicine] - 1-2 days
[2023-10-15 00:23] LABS: ALT 28 U/L (4-34); AST 113 U/L (14-36); African American GFR (CKD) >90 (>60 ml/min/1.73 sqM); Alkaline Phosphatase 252 U/L (38-126); Anion Gap 5 mmol/L; Blood Urea Nitrogen 8 mg/dL (7-17); C Reactive Protein 2.2 mg/dL (<1.0); Calcium 8.1 mg/dL (8.4-10.2); Carbon Dioxide 25 mmol/L (22-30); Chloride 103 mmol/L (98-107); Glucose 68 mg/dL (74-99); Non-African American GFR(CKD) >90 (>60 ml/min/1.73 sqM); Potassium 4.6 mmol/L (3.5-5.1); Sodium 133 mmol/L (137-145); Total Bilirubin 0.6 mg/dL (0.2-1.3); Total Protein 5.7 g/dL (6.3-8.2)
[2023-10-15 01:02] LABS: Anisocytosis Slight; Eosinophils % (A) 3 %; HCT 32.4 % (34.0-46.0); Hypochromasia Moderate; Lymphocytes % (A) 19 %; MCH 32.3 pg (25.0-35.0); MCHC 30.7 g/dL (31.0-37.0); MCV 105.1 fL (80.0-100.0); Macrocytosis Moderate; Mean Platelet Volume 8.1; Monocytes % (A) 10 %; Neutrophils % (A) 68 %; Platelet Count 680 k/uL (150-450); RBC 3.08 m/uL (3.80-5.40); RDW 16.4 % (11.5-15.5); WBC 12.5 k/uL (3.8-10.6)
[2023-10-15 01:03] LABS: Basophils % (A) 0 %; Eosinophils # (A) 0.3 k/uL (0-0.7); Lymphocytes # (A) 2.3 k/uL (1.0-4.8); Monocytes # (A) 1.3 k/uL (0-1.0); Neutrophils # (A) 8.5 k/uL (1.3-7.7)
[2023-10-15] MEDS: MORPHINE SULFATE 4 MG/ML SYRINGE IV STA (03:03)
[2023-10-15 03:18] LABS: Appearance,Urine Clear (Clear); Bilirubin,Urine Negative (Negative); Blood,Urine Trace (Negative); Color,Urine Colorless; Glucose,Urine (UA) Negative (Negative); Ketones,Urine Negative (Negative); Leukocyte Esterase,Urine Small (Negative); Nitrite,Urine Negative (Negative); PH, Urine 6.5 (5.0-8.0); Protein,Urine Negative (Negative); RBC,Urine 1 /hpf (0-5); Specific Gravity,Urine 1.005 (1.001-1.035); Squamous Epithelial Cell,Urine <1 /hpf (0-4); Urobilinogen,Urine <2.0 mg/dL (<2.0); WBC,Urine 2 /hpf (0-5)
--- NOTE | 2023-10-15 05:06 | CT ---
EXAMINATION TYPE: CT abdomen pelvis w con DATE OF EXAM: 10/15/2023 HISTORY: Pt. reports vaginal bleeding and cramping x2 days- dark red/brown in color. Hx of uterine a blation, cholecystectomy, hysterectomy, tubal ligation CT DLP: 419.6mGycm Automated Exposure Control for Dose Reduction was Utilized. CONTRAST: CT scan of the abdomen and pelvis is performed with IV Contrast, patient injected with 100 mL of Isov ue 300. COMPARISON: Prior CT 12 days earlier FINDINGS: LUNG BASES: Coronary artery stent in the RCA distribution is redemonstrated. LIVER/GB: Gallbladder remains surgically absent. Common bile duct measures near 11 mm at iman hepati s unchanged from prior, perhaps minimally enlarged. PANCREAS: No significant abnormality is seen. SPLEEN: Spleen not seen and presumed surgically absent. ADRENALS: No significant abnormality is seen. KIDNEYS: Simple 1.4 cm thin-walled cyst upper pole level of right kidney is redemonstrated. BOWEL: Surgical changes to the stomach from bypass procedure are redemonstrated. Suboptimal evaluatio n of bowel without enteric contrast. Mild to moderate fluid and fecal prominence of the right and tra nsverse colon. No abnormal small or large bowel dilatation otherwise seen. UTERUS/ADNEXA: Uterus is surgically absent. LYMPH NODES: No new greater than 1cm abdominal or pelvic lymph nodes are appreciated. OSSEOUS STRUCTURES: Moderate axial joint space loss and acetabular spurring of both hips. OTHER: Moderate diffuse subcutaneous edema redemonstrated. Diminished size to rim-enhancing focal flu id collection in the anterior right lower abdominal wall measuring 3.1 x 1.6 cm current study image 3 9 versus a round 8 x 4 cm prior study. Some extension into the anterior abdominal wall remains presen t. Moderate calcified plaque of the infrarenal abdominal aorta extends into branch vessels. IMPRESSION: Continued diminished size to the right sided intra-abdominal abscess. No new focal fluid collection or abscess identified.
[2023-10-15 06:08] VITALS: BP 137/88; PULSE 90; RESP 16; TEMP 98.6
== END 2023-10-15 06:09 | disposition home or self-care (01) ==
LOC: EC 22:47
DX: N93.9 Abnormal uterine and vaginal bleeding, unspecified (principal); F17.200 Nicotine dependence, unspecified, uncomplicated; Z88.1 Allergy status to other antibiotic agents; Z88.6 Allergy status to analgesic agent; Z91.030 Bee allergy status; Z88.8 Allergy status to other drugs, medicaments and biological substances; Z90.49 Acquired absence of other specified parts of digestive tract; Z86.73 Personal history of transient ischemic attack (TIA), and cerebral infarction without residual deficits
CPT/HCPCS: 36415; 80053; 83605; 85025; 86140; 81001; 81025; 74177; 99284; 96374; 96376; J2270 ×2; Q9967

== ENCOUNTER 2023-10-15 06:39 | Emergency (ER) | payer OTHER ==
[2023-10-15 06:42] VITALS: TEMP 97.9
[2023-10-15 06:50] LABS: Glucose,Whole Blood 92 mg/dL (70-110)
--- NOTE | 2023-10-15 07:07 | ED ---
Dizziness HPI - General Chief Complaint: Syncope Stated Complaint: Fall Time Seen by Provider: 10/15/23 07:05 Source: patient, RN notes reviewed Mode of arrival: wheelchair Limitations: no limitations - History of Present Illness Initial Comments: 48-year-old female presented to the ER with a chief complaint of syncope. Patient recently discharged for evaluation of abdominal pain. Patient states abdominal pain has been an ongoing issue for the past couple months and has been evaluated at [facility] and [facility] for complication with g allbladder surgery. Patient states after discharge she was waiting for her cab and emergency entrance and started to feel lightheaded as if she was going to pass out. Patient states she fell backwards hitting the back of her head. She believes she stood up and then fell again on her chin. She is uncertain of LOC loss of consciousness. Denies any blood thinner use. Denies any other injuries. - Related Data Home Medications Medication Instructions Recorded Confirmed Levothyroxine Sodium [Synthroid] 50 mcg PO DAILY 01/05/14 10/01/23 ALPRAZolam [Xanax] 1 mg PO DAILY PRN 11/24/17 10/01/23 Pantoprazole Sodium [Protonix] 40 mg PO DAILY 05/28/18 10/01/23 Cyclobenzaprine [Flexeril] 10 mg PO BID PRN 10/29/20 10/01/23 Metoprolol Succinate (ER) [Toprol 12.5 mg PO DAILY 10/29/20 10/01/23 XL] Atogepant [Qulipta] 60 mg PO DAILY 08/21/21 10/01/23 Ofatumumab [Kesimpta Pen] 20 mg SQ Q30D 02/12/22 10/01/23 HYDROcodone/APAP 10-325MG [Sperry 1 tab PO QID PRN 02/19/22 10/01/23 10-325] Albuterol Sulfate [Albuterol 2 puff INHALATION RT-Q6H PRN 02/19/23 10/01/23 Sulfate Hfa] Gabapentin [Neurontin] 400 mg PO TID PRN 02/19/23 10/01/23 Albuterol Nebulized [Ventolin 2.5 mg INHALATION RT-QID PRN 08/21/23 10/01/23 Nebulized] Cholecalciferol [Vitamin D3 (25 25 mcg PO DAILY 08/21/23 10/01/23 Mcg = 1000 Iu)] Famotidine [Pepcid] 20 mg PO HS 08/21/23 10/01/23 Fluticasone/Umeclidin/Vilanter 1 puff INHALATION RT-DAILY PRN 08/21/23 10/01/23 [Trelegy Ellipta 100-62.5-25] Ginkgo Biloba Valencia Extract [Ginkgo 125 mg PO DAILY 08/21/23 10/01/23 Biloba] Loperamide HCl [Imodium A-D] 2 - 4 mg PO QID PRN 08/21/23 10/01/23 Nicotine 14Mg/24Hr Patch [Habitrol] 1 patch TRANSDERM DAILY 08/21/23 10/01/23 Pravastatin Sodium [Pravachol] 40 mg PO HS 08/21/23 10/01/23 Promethazine 6.25MG/5Ml [Phenergan 25 mg PO DAILY PRN 08/21/23 10/01/23 Syrup] Risedronate Sodium [Actonel] 35 mg PO WE 08/21/23 10/01/23 Sertraline [Zoloft] 50 mg PO DAILY 08/21/23 10/01/23 Ubrogepant [Ubrelvy] 100 mg PO DAILY PRN 08/21/23 10/01/23 Vitamin A 2,400 mcg PO DAILY 08/21/23 10/01/23 Previous Rx's Medication Instructions Recorded Budesonide-Formot 160-4.5 Mcg 2 puff INHALATION RT-BID #1 each 10/06/23 [Symbicort 160-4.5 Mcg Inhaler] Furosemide [Lasix] 40 mg PO DAILY #30 tab 10/06/23 Levofloxacin [Levaquin] 750 mg PO ONCE #10 tab 10/06/23 Nystatin 100,000 Unit/ml Susp 5 ml PO QID #140 ml 10/06/23 [Mycostatin Oral Susp] methylPREDNISolone Dose Pack 24 mg PO DAILY #1 tab 10/06/23 [Medrol Dose Pack] metroNIDAZOLE [Flagyl] 500 mg PO TID #30 tab 10/06/23 Allergies Allergy/AdvReac Type Severity Reaction Status Date / Time bee venom protein (honey bee) Allergy SWELLING , Verified 09/30/23 20:06 AND ITCHING Bleach (Sodium Hypochlorite) Allergy Rash/Hives Verified 09/30/23 20:06 nitrofurantoin Allergy Rash/Hives Verified 09/30/23 20:06 [From Macrobid] nitrofurantoin Allergy Rash/Hives Verified 09/30/23 20:06 macrocrystalline [From Macrobid] moxifloxacin [From Avelox] AdvReac Nausea & Verified 09/30/23 20:06 Vomiting NSAIDS (Non-Steroidal AdvReac Had Verified 09/30/23 20:06 Anti-Inflamma gastric sleeve surgery, causes bleeds. seasonal allergies Allergy congestion Uncoded 09/30/23 20:06 and sneezing Review of Systems ROS Statement: Those systems with pertinent positive or pertinent negative responses have been documented in the HPI. ROS Other: All systems not noted in ROS Statement are negative. Past Medical History Past Medical History: Asthma, COPD, CVA/TIA, GERD/Reflux, Hypertension, Musculoskeletal Disorder, Neurologic Disorder, Sleep Apnea/CPAP/BIPAP, Thyroid Disorder Additional Past Medical History / Comment(s): smoking-related interstitial lung disease, doesn't use CPAP, history of seizure at the age of 16 related to med. to stop breast milk, endometriosis, chronic back pain, plantar fasciitis, hx. of Achilles tendinitis, probably antibiotic induced. She also has history of hypothyroidism, ALLERGIC rhinitis, migraines, uses oxygen 2L prn, recent iron infusion, MS , tia 2020 no residual issues, needs cholecystetomy, tinnitus, balance issues, History of Any Multi-Drug Resistant Organisms: None Reported Past Surgical History: Bariatric Surgery, Cholecystectomy, Hysterectomy, Tubal Ligation, Uterine Ablation Additional Past Surgical History / Comment(s): LEEP PROCEDURE X 2, EGD, BACK INJECTIONS FOR PAIN. The patient has also undergone thoracic/thoracoscopic wedge biopsy of the right lung. 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; R and Y bypass at [facility] 2019,TRACHEOTOMY-RESOLVED Past Anesthesia/Blood Transfusion Reactions: Motion Sickness Additional Past Anesthesia/Blood Transfusion Reaction / Comment(s): no problem w/blood transfusion Past Psychological History: Anxiety, Depression Smoking Status: Current every day smoker Past Alcohol Use History: None Reported Past Drug Use History: None Reported - Past Family History Sister(s) Family Medical History: Cancer Mother Family Medical History: Cancer Additional Family Medical History / Comment(s): breast cancer Father Family Medical History: COPD, CVA/TIA, Myocardial Infarction (PA) Additional Family Medical History / Comment(s): HEART PROBLEMS, AT AGE 64 General Exam Limitations: no limitations General appearance: alert, in no apparent distress Head exam: Present: atraumatic, normocephalic, normal inspection Eye exam: Present: normal appearance, PERRL, EOMI. Absent: scleral icterus, con junctival injection, periorbital swelling Pupils: Present: normal accommodation ENT exam: Present: normal exam, normal oropharynx, mucous membranes moist, TM's normal bilaterally Neck exam: Present: normal inspection. Absent: tenderness, meningismus, lymphadenopathy Respiratory exam: Present: normal lung sounds bilaterally. Absent: respiratory distress, wheezes, rales, rhonchi, stridor Cardiovascular Exam: Present: regular rate, normal rhythm, normal heart sounds. Absent: systolic murmur, diastolic murmur, rubs, gallop, clicks GI/Abdominal exam: Present: soft, tenderness (Generalized ), normal bowel sounds Extremities exam: Present: normal inspection, full ROM, normal capillary refill. Absent: tenderness, pedal edema, joint swelling, calf tenderness Neurological exam: Present: alert, oriented X3, CN II-XII intact Skin exam: Present: warm, dry, intact, normal color, other (Abrasions to right face and chin.). Absent: rash Course Vital Signs 10/15/23 10/15/23 10/15/23 06:40 06:50 07:33 Temperature 97.9 F Pulse Rate 117 H 95 70 Respiratory 18 16 20 Rate Blood Pressure 87/61 106/77 129/89 O2 Sat by Pulse 97 94 L 97 Oximetry 10/15/23 10/15/23 10/15/23 09:00 10:00 11:16 Temperature Pulse Rate 68 88 68 Respiratory 16 16 16 Rate Blood Pressure 130/60 110/60 110/60 O2 Sat by Pulse 98 98 98 Oximetry Medical Decision Making - Medical Decision Making Was pt. sent in by a medical professional or institution (, PA, JOURNEYMAN SHEET METAL WORKER, urgent care, hospital, or halfway...) When possible be specific @ -No Did you speak to anyone other than the patient for history (EMS, parent, family, police, friend...)? What history was obtained from this source @ -No Did you review nursing and triage notes (agree or disagree)? Why? @ -I reviewed and agree with nursing and triage notes Were old charts reviewed (outside hosp., previous admission, EMS record, old EKG, old radiological studies, urgent care reports/EKG's, halfway records)? Report findings @ -Yes I reviewed previous ER visit on 10/14/23. Patient evaluated for vaginal bleeding and had repeat CT scan. No new findings. Decreased size of intra-ab dominal abscess. Discharged in stable condition. Differential Diagnosis (chest pain, altered mental status, abdominal pain women, abdominal pain men, vaginal bleeding, weakness, fever, dyspnea, syncope, headache, dizziness, GI bleed, back pain, seizure, CVA, palpatations, mental health, musculoskeletal)? @ -Differential Syncope: Valvular disease, hypertrophic cardiomyopathy, pulmonary embolism, tamponade, tachycardia, bradycardia, PA, hypovolemia, hemorrhage, dissection, anemia, intracranial hemorrhage, seizure, hypoglycemia, carbon monoxide poisoning, this is not meant to be an all-inclusive list. EKG interpreted by me (3pts min.). @ -As above X-rays interpreted by me (1pt min.). @ -Chest x-ray interpreted by me negative for acute cardiopulmonary process. CT interpreted by me (1pt min.). @ -CT brain and C-spine negative for acute fractures, dislocations or intracranial process. U/S interpreted by me (1pt. min.). @ -None done What testing was considered but not performed or refused? (CT, X-rays, U/S, labs)? Why? @ -None What meds were considered but not given or refused? Why? @ -None Did you discuss the management of the patient with other professionals (professionals i.e. , PA, JOURNEYMAN SHEET METAL WORKER, lab, RT, psych nurse, social work assistant, railway signalling engineer, teacher, field artillery officer, mattress spring encaser)? Give summary @ -No Was smoking cessation discussed for >3mins.? @ -No Was critical care preformed (if so, how long)? @ -No Were there social determinants of health that impacted care today? How? ( Homelessness, low income, unemployed, alcoholism, drug addiction, transportation, low edu. Level, literacy, decrease access to med. care, [facility], rehab)? @ -No Was there de-escalation of care discussed even if they declined (Discuss DNR or withdrawal of care, Hospice)? DNR status @ -No What co-morbidities impacted this encounter? (DM, HTN, Smoking, COPD, CAD, Cancer, CVA, ARF, Chemo, Hep., AIDS, mental health diagnosis, sleep apnea, morbid obesity)? @ -None Was patient admitted / discharged? Hospital course, mention meds given and route, prescriptions, significant lab abnormalities, going to OR and other pertinent info. @ -Discharge. 48-year-old female presented to the ER with a chief complaint of syncope. Patient discharged minutes prior for evaluation of vaginal bleeding. History and physical exam completed. Vitals stable. Laboratory studies obtained remarkable for white blood cell count 14.1 with a left shift which is likely reactive from intra-abdominal abscess which patient is being treated with outpatient antibiotics. Transaminitis which appears to be at patient's baseline which are also likely elevated to intra-abdominal abscess and gallbladder bed post cholecystectomy. Troponin less than 0.012. EKG showing sinus rhythm with no acute ST segment or T wave abnormalities. Chest x-ray negative for acute process. CT brain and C-spine negative for acute process. Patient received IV fluids in the ER. Tetanus updated due to abrasions. Upon reevaluation, patient resting comfortably in exam room in no signs of acute distress. Results discussed with patient, all questions answered. Patient stable for discharge at this time as syncope believed to be vasovagal in nature. Advised close follow- up with PCP. Strict return parameters discussed. Patient discharged in stable condition. Patient verbally expressed understanding and agreement care plan. Case discussed with ED attending, Dr. Rivas. Undiagnosed new problem with uncertain prognosis? @ -No Drug Therapy requiring intensive monitoring for toxicity (Heparin, Nitro, Insulin, Cardizem)? @ -No Were any procedures done? @ -No Diagnosis/symptom? @ -Syncope/abrasions Acute, or Chronic, or Acute on Chronic? @ -Acute Uncomplicated (without systemic symptoms) or Complicated (systemic symptoms)? @ -Uncomplicated Side effects of treatment? @ -No Exacerbation, Progression, or Severe Exacerbation? @ -No Poses a threat to life or bodily function? How? (Chest pain, USA, PA, pneumonia, PE, COPD, DKA, ARF, appy, cholecystitis, CVA, Diverticulitis, Homicidal, Suicidal, threat to staff... and all critical care pts) @ -No - Lab Data Result diagrams: 10/15/23 07:22 10/15/23 09:09 Lab Results 10/15/23 10/15/23 10/15/23 Range/Units 06:49 07:22 07:22 WBC 14.1 H (3.8-10.6) k/uL RBC 3.23 L (3.80-5.40) m/uL Hgb 10.6 L (11.4-16.0) gm/dL Hct 34.2 (34.0-46.0) % MCV 105.9 H (80.0-100.0) fL MCH 32.9 (25.0-35.0) pg MCHC 31.1 (31.0-37.0) g/dL RDW 16.3 H (11.5-15.5) % Plt Count 754 H (150-450) k/uL MPV 8.8 Neutrophils % (Manual) 60 % Lymphocytes % (Manual) 29 % Monocytes % (Manual) 6 % Eosinophils % (Manual) 4 % Metamyelocytes % 1 % Neutrophils # (Manual) 8.46 H (1.3-7.7) k/uL Lymphocytes # (Manual) 4.09 (1.0-4.8) k/uL Monocytes # (Manual) 0.85 (0-1.0) k/uL Eosinophils # (Manual) 0.56 (0-0.7) k/uL Metamyelocytes # (Man) 0.14 H (0) k/uL Nucleated RBCs 0 (0-0) /100 WBC Manual Slide Review Performed Hypochromasia Marked Anisocytosis Slight Macrocytosis Marked A Target Cells Present PT 12.2 (10.0-12.5) sec INR 1.1 (<1.2) APTT 23.8 (22.0-30.0) sec Sodium (137-145) mmol/L Potassium (3.5-5.1) mmol/L Chloride (98-107) mmol/L Carbon Dioxide (22-30) mmol/L Anion Gap mmol/L BUN (7-17) mg/dL Creatinine (0.52-1.04) mg/dL Est GFR (CKD-EPI)AfAm (>60 ml/min/1.73 sqM) Est GFR (CKD-EPI)NonAf (>60 ml/min/1.73 sqM) Glucose (74-99) mg/dL POC Glucose (mg/dL) 92 (70-110) mg/dL POC Glu Land Lease Information Clerk Dari Nguyen Calcium (8.4-10.2) mg/dL Total Bilirubin (0.2-1.3) mg/dL AST (14-36) U/L ALT (4-34) U/L Alkaline Phosphatase (38-126) U/L Troponin I (0.000-0.034) ng/mL Total Protein (6.3-8.2) g/dL Albumin (3.5-5.0) g/dL 10/15/23 10/15/23 Range/Units 09:09 09:09 WBC (3.8-10.6) k/uL RBC (3.80-5.40) m/uL Hgb (11.4-16.0) gm/dL Hct (34.0-46.0) % MCV (80.0-100.0) fL MCH (25.0-35.0) pg MCHC (31.0-37.0) g/dL RDW (11.5-15.5) % Plt Count (150-450) k/uL MPV Neutrophils % (Manual) % Lymphocytes % (Manual) % Monocytes % (Manual) % Eosinophils % (Manual) % Metamyelocytes % % Neutrophils # (Manual) (1.3-7.7) k/uL Lymphocytes # (Manual) (1.0-4.8) k/uL Monocytes # (Manual) (0-1.0) k/uL Eosinophils # (Manual) (0-0.7) k/uL Metamyelocytes # (Man) (0) k/uL Nucleated RBCs (0-0) /100 WBC Manual Slide Review Hypochromasia Anisocytosis Macrocytosis Target Cells PT (10.0-12.5) sec INR (<1.2) APTT (22.0-30.0) sec Sodium 138 (137-145) mmol/L Potassium 4.2 (3.5-5.1) mmol/L Chloride 107 (98-107) mmol/L Carbon Dioxide 30 (22-30) mmol/L Anion Gap 1 mmol/L BUN 6 L (7-17) mg/dL Creatinine 0.57 (0.52-1.04) mg/dL Est GFR (CKD-EPI)AfAm >90 (>60 ml/min/1.73 sqM) Est GFR (CKD-EPI)NonAf >90 (>60 ml/min/1.73 sqM) Glucose 120 H (74-99) mg/dL POC Glucose (mg/dL) (70-110) mg/dL POC Glu Land Lease Information Clerk ID Calcium 8.7 (8.4-10.2) mg/dL Total Bilirubin 0.5 (0.2-1.3) mg/dL AST 309 H (14-36) U/L ALT 53 H (4-34) U/L Alkaline Phosphatase 424 H (38-126) U/L Troponin I <0.012 (0.000-0.034) ng/mL Total Protein 6.0 L (6.3-8.2) g/dL Albumin 3.1 L (3.5-5.0) g/dL - EKG Data -: EKG Interpreted by Me EKG Comments: EKG taken at 7: 23 showing a sinus rhythm with Q waves in inferior leads. No acute ST segment or T wave abnormalities. Ventricular rate 80, NC interval 148, QRS duration 98, QT/QTc 382/418. - Radiology Data Radiology results: report reviewed, image reviewed Disposition Clinical Impression: Syncope, Abrasion Disposition: HOME SELF-CARE Condition: Stable Additional Instructions: Follow-up with primary care physician in the next 1 to 2 days. Return to the ER for any new or worsening concerns. Is patient prescribed a controlled substance at d/c from ED?: No Referrals: Keven Kebede MD [Primary Care Provider] - 1-2 days Time of Disposition: 09:55
[2023-10-15] MEDS: SODIUM CHLORIDE 0.9% 1,000 ML IV STA (07:29)
[2023-10-15] MEDS: DIPH,PERTUS(ACELL)TETVAC-LF 0.5 ML VIAL IM ONE (07:29)
--- NOTE | 2023-10-15 07:58 | XR ---
EXAMINATION TYPE: XR chest 2V DATE OF EXAM: 10/15/2023 COMPARISON: CTA chest 13 days earlier HISTORY: Syncope TECHNIQUE: Frontal and lateral views of the chest are obtained. FINDINGS: Some chronic parenchymal fibrosis greatest in the upper lungs bilaterally is redemonstrate d. No pleural effusion or pneumothorax seen bilaterally. No new suspicious focal airspace opacity. T he cardiac silhouette size is within normal limits. The osseous structures are intact. Cholecystect greg clips are noted on lateral view. IMPRESSION: Upper lung bilateral chronic parenchymal fibrosis. No acute pulmonary infiltrate
--- NOTE | 2023-10-15 08:01 | CT ---
EXAMINATION TYPE: CT brain cspine wo con DATE OF EXAM: 10/15/2023 COMPARISON: Prior CT brain February 18, 2023 HISTORY: fall from standing CT DLP: 1117.5 mGycm. Automated Exposure Control for Dose Reduction was Utilized. TECHNIQUE: CT scan of the head and cervical spine are performed without contrast. FINDINGS: There is no acute intracranial hemorrhage, mass effect, or midline shift identified. The ventricles and sulci are within normal limits in size. Benitez-white matter differentiation is maintain ed. The calvarium is intact. The globes are intact and the visualized sinuses are clear. Cervical spine is visualized in its entirety from C1 through upper thoracic levels and demonstrates s traightened alignment without evidence of acute fracture or dislocation. Prevertebral soft tissue ap pears within normal limits. The C1-C2 articulation is within normal limits on the coronal images. V ertebral body heights and disc space heights are within normal limits. Spinal canal is preserved. Martinez g apices show emphysematous and fibrotic change without pneumothorax. Mild calcified plaque bilateral carotid bulb level is seen. IMPRESSION: 1. There is no acute fracture or dislocation evident in the cervical spine. 2. No acute intracranial hemorrhage, mass effect, or midline shift is seen.
[2023-10-15 08:15] LABS: Anisocytosis Slight; HCT 34.2 % (34.0-46.0); HGB 10.6 gm/dL (11.4-16.0); Hypochromasia Marked; MCH 32.9 pg (25.0-35.0); MCHC 31.1 g/dL (31.0-37.0); MCV 105.9 fL (80.0-100.0); Macrocytosis Marked; Mean Platelet Volume 8.8; Platelet Count 754 k/uL (150-450); RBC 3.23 m/uL (3.80-5.40); RDW 16.3 % (11.5-15.5); WBC 14.1 k/uL (3.8-10.6)
[2023-10-15 08:22] LABS: INR 1.1 (<1.2); Partial Thromboplastin Time 23.8 sec (22.0-30.0); Prothrombin Time 12.2 sec (10.0-12.5)
[2023-10-15 08:35] LABS: Eosinophils # (M) 0.56 k/uL (0-0.7); Lymphocytes # (M) 4.09 k/uL (1.0-4.8); Metamyelocytes # (M) 0.14 k/uL (0); Metamyelocytes % 1 %; Monocytes # (M) 0.85 k/uL (0-1.0); Neutrophils # (M) 8.46 k/uL (1.3-7.7); Neutrophils % (M) 60 %; Nucleated Red Blood Cells 0 /100 WBC (0-0); Total Cells Counted 100
[2023-10-15 08:36] LABS: Target Cells Present
[2023-10-15 09:14] VITALS: RESP 16
[2023-10-15 09:31] LABS: ALT 53 U/L (4-34); AST 309 U/L (14-36); African American GFR (CKD) >90 (>60 ml/min/1.73 sqM); Albumin 3.1 g/dL (3.5-5.0); Alkaline Phosphatase 424 U/L (38-126); Anion Gap 1 mmol/L; Blood Urea Nitrogen 6 mg/dL (7-17); Calcium 8.7 mg/dL (8.4-10.2); Carbon Dioxide 30 mmol/L (22-30); Chloride 107 mmol/L (98-107); Glucose 120 mg/dL (74-99); Non-African American GFR(CKD) >90 (>60 ml/min/1.73 sqM); Potassium 4.2 mmol/L (3.5-5.1); Sodium 138 mmol/L (137-145); Total Bilirubin 0.5 mg/dL (0.2-1.3)
[2023-10-15 10:32] VITALS: BP 110/60
[2023-10-15 11:17] VITALS: PULSE 68
== END 2023-10-15 11:16 | disposition home or self-care (01) ==
LOC: EC 06:39
DX: S00.81XA Abrasion of other part of head, initial encounter (principal); F17.200 Nicotine dependence, unspecified, uncomplicated; Z23 Encounter for immunization; Z91.030 Bee allergy status; Z88.8 Allergy status to other drugs, medicaments and biological substances; Z90.49 Acquired absence of other specified parts of digestive tract; Z91.048 Other nonmedicinal substance allergy status; W01.10XA Fall on same level from slipping, tripping and stumbling with subsequent striking against unspecified object, initial encounter
CPT/HCPCS: 36415; 70450; 71046; 72125; 80053; 84484; 85025; 85610; 85730; 90471; 90715; 93005; 96360; 96361; 99285

== ENCOUNTER → 2023-10-26 | Outpatient (CLI) | payer OTHER ==
[2023-10-26 15:47] LABS: Basophils # (A) 0.11 X 10*3/uL (0.00-0.10); Basophils % (A) 0.9 %; Eosinophils # (A) 0.38 X 10*3/uL (0.04-0.35); HCT 36.2 % (37.2-46.3); HGB 11.6 g/dL (12.0-15.0); Lymphocytes # (A) 1.41 X 10*3/uL (0.90-5.00); Lymphocytes % (A) 11.2 %; MCV 102.8 FL (80.0-97.0); Mean Platelet Volume 9.3 FL (9.5-12.2); Monocytes # (A) 1.02 X 10*3/uL (0.20-1.00); Monocytes % (A) 8.1 %; NRBC Per 100 WBC 0 X 10*3/uL (0.00-0.01); Neutrophils # (A) 9.61 X 10*3/uL (1.80-7.70); Neutrophils % (A) 76.2 %; Platelet Count 555 X 10*3/uL (140-440); RBC 3.52 X 10*6/uL (4.10-5.20); RDW 18.7 % (11.5-14.5)
[2023-10-26 15:56] LABS: BUN/Creat Ratio 14.17 Ratio (12.00-20.00); Blood Urea Nitrogen 8.5 mg/dL (9.0-27.0); Glucose 79 mg/dL (70-110)
[2023-10-26 15:57] LABS: ALT 21 U/L (8-44); AST 42 U/L (13-35); Albumin 3.6 g/dL (3.8-4.9); Albumin/Globulin Ratio 1.38 Ratio (1.60-3.17); Alkaline Phosphatase 509 U/L (41-126); Bilirubin, Conjugated <0.20 mg/dL (0.20-0.40); Bilirubin,Unconjugated >0.10 mg/dL (0.20-1.00); Calcium 8.6 mg/dL (8.7-10.3); Carbon Dioxide 25.7 mmol/L (21.6-31.8); Chloride 104 mmol/L (96-109); Globulin 2.6 g/dL (1.6-3.3); Sodium 143 mmol/L (135-145); Total Bilirubin 0.3 mg/dL (0.3-1.2); Total Protein 6.2 g/dL (6.2-8.2)
[2023-10-26 16:15] LABS: Erythrocyte Sedimentation Rate 42 mm/Hr (0-20)
[2023-10-26 17:37] LABS: HSV I IgG Interp POSITIVE; HSV II IgG Interp Negative (Negative)
[2023-10-27 12:36] LABS: C. trachomatis,PCR Negative (Negative)
[2023-10-31 17:16] LABS: HIV 2 AB Non-Reactive (Non-Reactive); HIV AB P24 Non-Reactive (Non-Reactive); HIV P24 AG Non-Reactive (Non-Reactive)
== END | disposition home or self-care (01) ==
LOC: LABWHC1 11:26
PROVIDERS: ATTEND Family Medicine
DX: Z11.59 Encounter for screening for other viral diseases (principal); Z11.8 Encounter for screening for other infectious and parasitic diseases; Z11.4 Encounter for screening for human immunodeficiency virus [HIV]; Z20.2 Contact with and (suspected) exposure to infections with a predominantly sexual mode of transmission; Z91.89 Other specified personal risk factors, not elsewhere classified; K81.0 Acute cholecystitis; R94.5 Abnormal results of liver function studies; Z72.51 High risk heterosexual behavior
CPT/HCPCS: 36415; 80053; 82248; 85025; 85652; 86695; 86696; 86780; 87390; 87491

== ENCOUNTER 2023-11-06 21:26 | Inpatient (IN) | payer MEDICARE, OTHER ==
--- NOTE | 2023-11-06 21:52 | ED ---
Abdominal Pain HPI - General Chief Complaint: Abdominal Pain Stated Complaint: Abdominal Cramping Time Seen by Provider: 11/06/23 21:42 Source: patient, RN notes reviewed Mode of arrival: ambulatory Limitations: no limitations - History of Present Illness Initial Comments: This is a 48-year-old female who presents to the emergency department for abdominal pain. Reports lower abdominal pain that became severe a couple of hours ago. Denies any nausea or vomiting. She may have had some loose stools this morning. She also states that she may have had the chills a couple of days ago but nothing recently. She has not measured any fevers. She had a cholecystectomy at [facility] in August of this year. This was complicated by poor wound healing and abscess formation, but states that she has done well over the last several weeks. She is concerned about an abscess possibly reforming contributing to her pain. MD Complaint: abdominal pain - Related Data Home Medications Medication Instructions Recorded Confirmed RX: Levothyroxine Sodium 50 mcg PO DAILY 01/05/14 10/01/23 [Synthroid] RX: ALPRAZolam [Xanax] 1 mg PO DAILY PRN 11/24/17 10/01/23 RX: Pantoprazole Sodium [Protonix] 40 mg PO DAILY 05/28/18 10/01/23 RX: Cyclobenzaprine [Flexeril] 10 mg PO BID PRN 10/29/20 10/01/23 RX: Metoprolol Succinate (ER) 12.5 mg PO DAILY 10/29/20 10/01/23 [Toprol XL] RX: Atogepant [Qulipta] 60 mg PO DAILY 08/21/21 10/01/23 RX: Ofatumumab [Kesimpta Pen] 20 mg SQ Q30D 02/12/22 10/01/23 RX: HYDROcodone/APAP 10-325MG 1 tab PO QID PRN 02/19/22 10/01/23 [Lockhart 10-325] RX: Albuterol Sulfate [Albuterol 2 puff INHALATION RT-Q6H PRN 02/19/23 10/01/23 Sulfate Hfa] RX: Gabapentin [Neurontin] 400 mg PO TID PRN 02/19/23 10/01/23 RX: Albuterol Nebulized [Ventolin 2.5 mg INHALATION RT-QID PRN 08/21/23 10/01/23 Nebulized] RX: Cholecalciferol [Vitamin D3 25 mcg PO DAILY 08/21/23 10/01/23 (25 Mcg = 1000 Iu)] RX: Famotidine [Pepcid] 20 mg PO HS 08/21/23 10/01/23 RX: Fluticasone/Umeclidin/Vilanter 1 puff INHALATION RT-DAILY PRN 08/21/23 10/01/23 [Trelelio Ellipta 100-62.5-25] RX: Ginkgo Biloba [place] Extract 125 mg PO DAILY 08/21/23 10/01/23 [Ginkgo Biloba] RX: Loperamide HCl [Imodium A-D] 2 - 4 mg PO QID PRN 08/21/23 10/01/23 RX: Nicotine 14Mg/24Hr Patch 1 patch TRANSDERM DAILY 08/21/23 10/01/23 [Habitrol] RX: Pravastatin Sodium [Pravachol] 40 mg PO HS 08/21/23 10/01/23 RX: Promethazine 6.25MG/5Ml 25 mg PO DAILY PRN 08/21/23 10/01/23 [Phenergan Syrup] RX: Risedronate Sodium [Actonel] 35 mg PO WE 08/21/23 10/01/23 RX: Sertraline [Zoloft] 50 mg PO DAILY 08/21/23 10/01/23 RX: Ubrogepant [Ubrelvy] 100 mg PO DAILY PRN 08/21/23 10/01/23 RX: Vitamin A 2,400 mcg PO DAILY 08/21/23 10/01/23 Previous Rx's Medication Instructions Recorded RX: Budesonide-Formot 160-4.5 Mcg 2 puff INHALATION RT-BID #1 each 10/06/23 [Symbicort 160-4.5 Mcg Inhaler] RX: Furosemide [Lasix] 40 mg PO DAILY #30 tab 10/06/23 RX: Levofloxacin [Levaquin] 750 mg PO ONCE #10 tab 10/06/23 RX: Nystatin 100,000 Unit/ml Susp 5 ml PO QID #140 ml 10/06/23 [Mycostatin Oral Susp] RX: methylPREDNISolone Dose Pack 24 mg PO DAILY #1 tab 10/06/23 [Medrol Dose Pack] RX: metroNIDAZOLE [Flagyl] 500 mg PO TID #30 tab 10/06/23 Allergies Allergy/AdvReac Type Severity Reaction Status Date / Time bee venom protein (honey bee) Allergy SWELLING , Verified 11/06/23 21:38 AND ITCHING Bleach (Sodium Hypochlorite) Allergy Rash/Hives Verified 11/06/23 21:38 nitrofurantoin Allergy Rash/Hives Verified 11/06/23 21:38 [From Macrobid] nitrofurantoin Allergy Rash/Hives Verified 11/06/23 21:38 macrocrystalline [From Macrobid] moxifloxacin [From Avelox] AdvReac Nausea & Verified 11/06/23 21:38 Vomiting NSAIDS (Non-Steroidal AdvReac Had Verified 11/06/23 21:38 Anti-Inflamma gastric sleeve surgery, causes bleeds. seasonal allergies Allergy congestion Uncoded 11/06/23 21:38 and sneezing Review of Systems ROS Statement: Those systems with pertinent positive or pertinent negative responses have been documented in the HPI. ROS Other: All systems not noted in ROS Statement are negative. Past Medical History Past Medical History: Asthma, COPD, CVA/TIA, GERD/Reflux, Hypertension, Musculoskeletal Disorder, Neurologic Disorder, Sleep Apnea/CPAP/BIPAP, Thyroid Disorder Additional Past Medical History / Comment(s): smoking-related interstitial lung disease, doesn't use CPAP, history of seizure at the age of 16 related to med. to stop breast milk, endometriosis, chronic back pain, plantar fasciitis, hx. of Achilles tendinitis, probably antibiotic induced. She also has history of hypothyroidism, ALLERGIC rhinitis, migraines, uses oxygen 2L prn, recent iron infusion, MS , tia 2020 no residual issues, needs cholecystetomy, tinnitus, balance issues,. Dx. w/ leukemia, 10/2023 History of Any Multi-Drug Resistant Organisms: None Reported Past Surgical History: Bariatric Surgery, Cholecystectomy, Hysterectomy, Tubal Ligation, Uterine Ablation Additional Past Surgical History / Comment(s): LEEP PROCEDURE X 2, EGD, BACK INJECTIONS FOR PAIN. The patient has also undergone thoracic/thoracoscopic wedge biopsy of the right lung. 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; R and Y bypass at [facility] 2019,TRACHEOTOMY-RESOLVED Past Anesthesia/Blood Transfusion Reactions: Motion Sickness Additional Past Anesthesia/Blood Transfusion Reaction / Comment(s): no problem w/blood transfusion Past Psychological History: Anxiety, Depression Smoking Status: Current every day smoker Past Alcohol Use History: None Reported Past Drug Use History: None Reported - Past Family History Sister(s) Family Medical History: Cancer Mother Family Medical History: Cancer Additional Family Medical History / Comment(s): breast cancer Father Family Medical History: COPD, CVA/TIA, Myocardial Infarction (NH) Additional Family Medical History / Comment(s): HEART PROBLEMS, AT AGE 64 General Exam Limitations: no limitations General appearance: alert, in no apparent distress Head exam: Present: atraumatic, normocephalic, normal inspection Respiratory exam: Present: normal lung sounds bilaterally. Absent: respiratory distress, wheezes, rales, rhonchi, stridor Cardiovascular Exam: Present: regular rate, normal rhythm, normal heart sounds. Absent: systolic murmur, diastolic murmur, rubs, gallop, clicks GI/Abdominal exam: Present: soft, tenderness (Lower abdomen). Absent: distended Neurological exam: Present: alert, oriented X3, CN II-XII intact Psychiatric exam: Present: normal affect, normal mood Skin exam: Present: warm, dry, intact, normal color. Absent: rash Course Vital Signs 11/06/23 11/06/23 11/07/23 21:28 22:18 00:55 Temperature 98.0 F Pulse Rate 105 H 85 90 Respiratory 15 16 16 Rate Blood Pressure 144/93 162/92 154/96 O2 Sat by Pulse 98 99 97 Oximetry Medical Decision Making - Medical Decision Making This is a 48 year old female who presents to the emergency department for abdominal pain. Was pt. sent in by a medical professional or institution? @ -No Did you speak to anyone other than the patient for history? @ -No Did you review nursing and triage notes? @ -Yes, and I agree, it is accurate with regards to the patient's symptoms. Were old charts reviewed? @ -No Differential Diagnosis? @ -Differential Abdominal Pain Women: Appendicitis, Cholecystitis, diverticulosis, ischemic bowel, pancreatitis, hepatitis, UTI, gastroenteritis, AAA, incarcerated hernia, bowel obstruction, constipation, inflammatory bowel, hepatitis, peptic ulcer disease, splenic infarction, perforated viscus, vulvitis, ovarian torsion, PID, kidney stone, placenta abruption, this is not meant to be an all-inclusive list EKG interpreted by me (3pts min.)? @ -EKG interpreted by me demonstrating the following: Sinus rhythm. Ve ntricular rate 83 bpm, IA interval 140 ms, QRS duration 88 ms, QTc 406 ms. X-rays interpreted by me (1pt min.)? @ -Not obtained CT interpreted by me (1pt min.)? @ -CT scan of the abdomen and pelvis obtained. My interpretation identifies dilated small bowel loops. U/S interpreted by me (1pt. min.)? @ -Not obtained What testing was considered but not performed? (CT, X-rays, U/S, labs)? Why? @ -None What meds were considered but not given? Why? @ -None Did you discuss the management of the patient with other professionals? @ -Yes, Dr. Nagel, who advised IV antibiotics and an NG tube. Dr. Galicia accepts the patient for admission to medicine. Did you reconcile home meds? @ -No Was smoking cessation discussed for >3mins.? @ -No Was critical care preformed (if so, how long)? @ -No Were there social determinants of health that impacted care today? How? (Homelessness, low income, unemployed, alcoholism, drug addiction, transportation, low edu. Level, literacy, decrease access to med. care, halfway, rehab)? @ -No Was there de-escalation of care discussed even if they declined? (Discuss DNR or withdrawal of care, Hospice)? @ -No What co-morbidities impacted this encounter? (DM, HTN, Smoking, COPD, CAD, Cancer, CVA, Hep., AIDS, mental health diagnosis, sleep apnea, morbid obesity)? @ -None Was patient admitted / discharged? @ -Admitted. Lab work demonstrates mild leukocytosis. Urinalysis negative for signs of infection. CT scan of the abdomen and pelvis obtained demonstrating a mid small bowel obstruction likely related to adhesions. They also advised consideration of underlying enterocolitis. Case discussed with Dr. Nagel, general surgery. He advised IV antibiotics and an NG tube. Blood cultures were obtained and patient was started on Zosyn. NG tube was placed by nursing staff. Patient kept NPO. She was admitted to medicine for small bowel obstruction with general surgery on consult. Undiagnosed new problem with uncertain prognosis? @ -None Drug Therapy requiring intensive monitoring for toxicity (Heparin, Nitro, Insulin, Cardizem)? @ -None Were any procedures done? @ -None Diagnosis/symptom? @ -Small bowel obstruction Acute, or Chronic, or Acute on Chronic? @ -Acute Uncomplicated (without systemic symptoms) or Complicated (systemic symptoms)? @ -Complicated Side effects of treatment? @ -None Exacerbation, Progression, or Severe Exacerbation] @ -Not applicable Poses a threat to life or bodily function? @ -Yes, can lead to infection and ischemia, both of which can be life-threatening. This case was discussed in detail with the attending ED physician, Dr. Ramos. Presentation, findings, and treatment plan discussed in detail as well. - Lab Data Result diagrams: 11/06/23 22:11 11/06/23 22:11 Lab Results 11/06/23 11/06/23 11/06/23 Range/Units 22:11 22:11 22:11 WBC 11.1 H (3.8-10.6) k/uL RBC 3.75 L (3.80-5.40) m/uL Hgb 12.4 (11.4-16.0) gm/dL Hct 39.2 (34.0-46.0) % MCV 104.6 H (80.0-100.0) fL MCH 33.0 (25.0-35.0) pg MCHC 31.6 (31.0-37.0) g/dL RDW 15.9 H (11.5-15.5) % Plt Count 564 H (150-450) k/uL MPV 6.9 Neutrophils % 70 % Lymphocytes % 16 % Monocytes % 6 % Eosinophils % 7 % Basophils % 0 % Neutrophils # 7.7 (1.3-7.7) k/uL Lymphocytes # 1.8 (1.0-4.8) k/uL Monocytes # 0.7 (0-1.0) k/uL Eosinophils # 0.8 H (0-0.7) k/uL Basophils # 0.0 (0-0.2) k/uL Hypochromasia Slight Macrocytosis Moderate Sodium 138 (137-145) mmol/L Potassium 4.7 (3.5-5.1) mmol/L Chloride 109 H (98-107) mmol/L Carbon Dioxide 25 (22-30) mmol/L Anion Gap 4 mmol/L BUN 13 (7-17) mg/dL Creatinine 0.43 L (0.52-1.04) mg/dL Est GFR (CKD-EPI)AfAm >90 (>60 ml/min/1.73 sqM) Est GFR (CKD-EPI)NonAf >90 (>60 ml/min/1.73 sqM) Glucose 85 (74-99) mg/dL Plasma Lactic Acid Miguel Angel 1.2 (0.7-2.0) mmol/L Calcium 8.8 (8.4-10.2) mg/dL Total Bilirubin 0.4 (0.2-1.3) mg/dL AST 29 (14-36) U/L ALT 12 (4-34) U/L Alkaline Phosphatase 191 H (38-126) U/L Total Protein 5.7 L (6.3-8.2) g/dL Albumin 3.2 L (3.5-5.0) g/dL Amylase 41 (30-110) U/L Lipase 41 (23-300) U/L Urine Color Urine Appearance (Clear) Urine pH (5.0-8.0) Ur Specific [place] (1.001-1.035) Urine Protein (Negative) Urine Glucose (UA) (Negative) Urine Ketones (Negative) Urine Blood (Negative) Urine Nitrite (Negative) Urine Bilirubin (Negative) Urine Urobilinogen (<2.0) mg/dL Ur Leukocyte Esterase (Negative) Urine RBC (0-5) /hpf Urine WBC (0-5) /hpf Ur Squamous Epith Cells (0-4) /hpf Urine Bacteria (None) /hpf 11/06/23 Range/Units 22:14 WBC (3.8-10.6) k/uL RBC (3.80-5.40) m/uL Hgb (11.4-16.0) gm/dL Hct (34.0-46.0) % MCV (80.0-100.0) fL MCH (25.0-35.0) pg MCHC (31.0-37.0) g/dL RDW (11.5-15.5) % Plt Count (150-450) k/uL MPV Neutrophils % % Lymphocytes % % Monocytes % % Eosinophils % % Basophils % % Neutrophils # (1.3-7.7) k/uL Lymphocytes # (1.0-4.8) k/uL Monocytes # (0-1.0) k/uL Eosinophils # (0-0.7) k/uL Basophils # (0-0.2) k/uL Hypochromasia Macrocytosis Sodium (137-145) mmol/L Potassium (3.5-5.1) mmol/L Chloride (98-107) mmol/L Carbon Dioxide (22-30) mmol/L Anion Gap mmol/L BUN (7-17) mg/dL Creatinine (0.52-1.04) mg/dL Est GFR (CKD-EPI)AfAm (>60 ml/min/1.73 sqM) Est GFR (CKD-EPI)NonAf (>60 ml/min/1.73 sqM) Glucose (74-99) mg/dL Plasma Lactic Acid Miguel Angel (0.7-2.0) mmol/L Calcium (8.4-10.2) mg/dL Total Bilirubin (0.2-1.3) mg/dL AST (14-36) U/L ALT (4-34) U/L Alkaline Phosphatase (38-126) U/L Total Protein (6.3-8.2) g/dL Albumin (3.5-5.0) g/dL Amylase (30-110) U/L Lipase (23-300) U/L Urine Color Colorless Urine Appearance Clear (Clear) Urine pH 6.5 (5.0-8.0) Ur Specific [place] 1.012 (1.001-1.035) Urine Protein Negative (Negative) Urine Glucose (UA) Negative (Negative) Urine Ketones Negative (Negative) Urine Blood Negative (Negative) Urine Nitrite Negative (Negative) Urine Bilirubin Negative (Negative) Urine Urobilinogen <2.0 (<2.0) mg/dL Ur Leukocyte Esterase Small H (Negative) Urine RBC 1 (0-5) /hpf Urine WBC 1 (0-5) /hpf Ur Squamous Epith Cells 1 (0-4) /hpf Urine Bacteria Rare H (None) /hpf - Radiology Data Radiology results: report reviewed, image reviewed Disposition Clinical Impression: Small bowel obstruction Disposition: ADMITTED IP TO THIS HOSP
[2023-11-06] MEDS: SODIUM CHLORIDE 0.9% 1,000 ML IV STA (22:16)
[2023-11-06] MEDS: HYDROmorphone 1 MG/ML 1 ML SYRINGE IVP STA (22:19)
[2023-11-06 22:24] LABS: Basophils % (A) 0 %; Eosinophils # (A) 0.8 k/uL (0-0.7); Eosinophils % (A) 7 %; HCT 39.2 % (34.0-46.0); HGB 12.4 gm/dL (11.4-16.0); Hypochromasia Slight; Lymphocytes # (A) 1.8 k/uL (1.0-4.8); Lymphocytes % (A) 16 %; MCHC 31.6 g/dL (31.0-37.0); MCV 104.6 fL (80.0-100.0); Macrocytosis Moderate; Mean Platelet Volume 6.9; Monocytes # (A) 0.7 k/uL (0-1.0); Monocytes % (A) 6 %; Neutrophils # (A) 7.7 k/uL (1.3-7.7); Neutrophils % (A) 70 %; Platelet Count 564 k/uL (150-450); RBC 3.75 m/uL (3.80-5.40); RDW 15.9 % (11.5-15.5); WBC 11.1 k/uL (3.8-10.6)
[2023-11-06 22:29] LABS: Appearance,Urine Clear (Clear); Bacteria,Urine Rare /hpf; Bilirubin,Urine Negative (Negative); Blood,Urine Negative (Negative); Color,Urine Colorless; Glucose,Urine (UA) Negative (Negative); Ketones,Urine Negative (Negative); Leukocyte Esterase,Urine Small (Negative); Nitrite,Urine Negative (Negative); PH, Urine 6.5 (5.0-8.0); Protein,Urine Negative (Negative); RBC,Urine 1 /hpf (0-5); Specific Gravity,Urine 1.012 (1.001-1.035); Squamous Epithelial Cell,Urine 1 /hpf (0-4); Urobilinogen,Urine <2.0 mg/dL (<2.0); WBC,Urine 1 /hpf (0-5)
[2023-11-06 22:38] LABS: ALT 12 U/L (4-34); AST 29 U/L (14-36); African American GFR (CKD) >90 (>60 ml/min/1.73 sqM); Albumin 3.2 g/dL (3.5-5.0); Alkaline Phosphatase 191 U/L (38-126); Amylase 41 U/L (30-110); Anion Gap 4 mmol/L; Blood Urea Nitrogen 13 mg/dL (7-17); Calcium 8.8 mg/dL (8.4-10.2); Carbon Dioxide 25 mmol/L (22-30); Chloride 109 mmol/L (98-107); Glucose 85 mg/dL (74-99); Lipase 41 U/L (23-300); Non-African American GFR(CKD) >90 (>60 ml/min/1.73 sqM); Potassium 4.7 mmol/L (3.5-5.1); Sodium 138 mmol/L (137-145); Total Bilirubin 0.4 mg/dL (0.2-1.3); Total Protein 5.7 g/dL (6.3-8.2)
--- NOTE | 2023-11-06 23:41 | CT ---
EXAMINATION TYPE: CT abdomen pelvis w con DATE OF EXAM: 11/06/2023 HISTORY: Pt. presents to ED w/ abd. in bilat lower quadrants. Which radiates to the back. Pt. denies n+v. Pt. has had diarrhea. CT DLP: 468mGycm Automated Exposure Control for Dose Reduction was Utilized. CONTRAST: CT scan of the abdomen and pelvis is performed with IV Contrast, patient injected with 100 mL of Isov ue 300. COMPARISON: Prior CT October 15, 2023 FINDINGS: LUNG BASES: No significant abnormality is appreciated. LIVER/GB: Persistent mild to moderate extrahepatic and mild central intrahepatic biliary dilatation s imilar to most recent prior. PANCREAS: No significant abnormality is seen. SPLEEN: Spleen is surgically absent. ADRENALS: No significant abnormality is seen. KIDNEYS: Stable 1.4 cm benign-appearing thin-walled cyst upper pole right kidney coronal image 46. BOWEL: Surgical changes in the epigastric region is redemonstrated. There are fluid prominent and dil ated small bowel loops on current study. There are nondistended distal small bowel loops in the right lower abdomen and pelvis. No abnormal wall thickening in these bowel loops is present. Underlying en teritis is not excluded. Fecal material is seen in nondistended colon. Abnormal wall thickening and c olon near the splenic flexure. Cannot exclude colitis. Small bowel loops dilated up to 3.8 cm left lo wer quadrant coronal image 36. No free or mesenteric air. UTERUS/ADNEXA: Uterus is surgically absent. LYMPH NODES: No greater than 1cm abdominal or pelvic lymph nodes are appreciated. OSSEOUS STRUCTURES: Moderate disc space narrowing at L3-L4 level is redemonstrated. OTHER: No significant additional abnormality is seen. IMPRESSION: CT findings are consistent with a mid small bowel obstruction as detailed above. Suspect adhesions. Underlying enterocolitis needs to be considered.
[2023-11-07] MEDS ORDERED: NALOXONE 0.4 MG/ML 1 ML VIAL IV PRN (00:03)
[2023-11-07] MEDS ORDERED: ACETAMINOPHEN TAB 325 MG TAB PO PRN (00:09)
[2023-11-07] MEDS: HYDROmorphone 1 MG/ML 1 ML SYRINGE IVP STA (00:57)
[2023-11-07] MEDS: PIPERACILLIN-TAZOBACTAM 3.375 GM in SODIUM CHLORIDE 0.9% 100 ML IVPB SCH (01:02)
[2023-11-07] MEDS: ONDANSETRON 4 MG/2 ML VIAL IVP PRN (01:05)
--- NOTE | 2023-11-07 03:23 | XR ---
EXAM: XR Chest, 1 View CLINICAL HISTORY: NGT Placement TECHNIQUE: Frontal view of the chest. COMPARISON: March 05, 2022 FINDINGS: Lungs: Diffuse prominence of the fine interstitial markings which appears to be chronic. No acute infiltration. No pulmonary mass. Pleural space: Unremarkable. No pneumothorax or pleural fluid. Heart: Unremarkable. No cardiomegaly. Mediastinum: Unremarkable. Normal mediastinal contour. Bones/joints: No acute findings. Tubes, lines and devices: A gastric tube is seen in the stomach with the tip in the mid aspect of the stomach. The side port is just past the gastroesophageal junction. IMPRESSION: No acute findings in the chest. Gastric tube as above.
[2023-11-07] MEDS: HYDROmorphone 1 MG/ML 1 ML SYRINGE IVP PRN (04:12)
[2023-11-07] MEDS: HYDROmorphone 0.5 MG/0.5 ML SYRINGE IVP PRN (07:31)
[2023-11-07] MEDS: PANTOPRAZOLE 40 MG/10 ML VIAL IV SCH (09:05)
[2023-11-07] MEDS: SODIUM CHLORIDE 0.9% 1,000 ML IV SCH (12:52)
--- NOTE | 2023-11-07 14:12 | P.GSCN ---
History of Present Illness Consult date: 11/07/23 History of present illness: CHIEF COMPLAINT: Abdominal pain HISTORY OF PRESENT ILLNESS: This is a 48-year-old female presents the hospital with complaints of lower abdominal pain that started yesterday. She was having nausea and vomiting. She did have a loose stool yesterday but since then has had no flatus or bowel movement. She denies any prior history of bowel obstruction. She does have a prior history of abdominal surgeries. In August 2023 had cholecystectomy with complications of abdominal abscess. She is also had hysterectomy, tubal ligation, sleeve gastrectomy, exploratory laparotomy with splenectomy and Sharona-en-Y. Patient had a CT scan abdomen pelvis that reported mid small bowel obstruction possibly due to adhesions. She has NG tube in place. Surgical consult placed for small bowel obstruction. PAST MEDICAL HISTORY: Asthma, COPD, CVA/TIA, GERD/Reflux, Hypertension, Musculoskeletal Disorder, Neurologic Disorder, Sleep Apnea/CPAP/BIPAP, Thyroid Disorder, leukemia October 2023 PAST SURGICAL HISTORY: Bariatric Surgery, Cholecystectomy, Hysterectomy, Tubal Ligation, Uterine Ablation MEDICATIONS: See below ALLERGIES: See below SOCIAL HISTORY: No illicit drug use. REVIEW OF SYSTEMS: CONSTITUTIONAL: Denies fever or chills. HEENT: Denies blurred vision, vision changes, or eye pain. Denies hemoptysis CARDIOVASCULAR: Denies chest pain or pressure. RESPIRATORY: No shortness of breath. GASTROINTESTINAL: See HPI for pertinent findings HEMATOLOGIC: Denies bleeding disorders. GENITOURINARY: Denies any blood in urine or increased urinary frequency. SKIN: Denies pruitis. Denies rash. PHYSICAL EXAM: VITAL SIGNS: Reviewed GENERAL: Well-developed in no acute distress. HEENT: No sclera icterus. Extraocular movements grossly intact. Moist buccal mucosa. Head is atraumatic, normocephalic. No nasal drainage. ABDOMEN: Soft. Mildly distended. Diffuse tenderness but more tender in the lower abdomen NEUROLOGIC: Alert and oriented. Cranial nerves II through XII grossly intact. LABORATORY DATA: WBC 11.1 HGb 12.4 plt 564 Na 138 potassium 4.7 creatinine 0.43 Lactic acid 1.2 IMAGING: CT scan abdomen pelvis reports CT findings are consistent with mid small bowel obstruction. Suspect adhesions. Underlying enterocolitis needs to be considered. ASSESSMENT: 1. Small bowel obstruction possibly due to adhesions 2. Prior history of multiple abdominal surgeries PLAN: -Discussed case with Dr. Nagel. He recommends transfer to [facility] where patient has had her prior surgeries. -Continue NG tube for decompression -Keep patient n.p.o. -Continue IV fluids -Continue pain management -Continue antiemetics -Continue antibiotics Physician Sand Mixer Operator note has been reviewed by physician. Signing provider agrees with the documented findings, assessment, and plan of care. Past Medical History Past Medical History: Asthma, COPD, CVA/TIA, GERD/Reflux, Hypertension, Muscu loskeletal Disorder, Neurologic Disorder, Sleep Apnea/CPAP/BIPAP, Thyroid Disorder Additional Past Medical History / Comment(s): smoking-related interstitial lung disease, doesn't use CPAP, history of seizure at the age of 16 related to med. to stop breast milk, endometriosis, chronic back pain, plantar fasciitis, hx. of Achilles tendinitis, probably antibiotic induced. She also has history of hypothyroidism, ALLERGIC rhinitis, migraines, uses oxygen 2L prn, recent iron infusion, MS , tia 2020 no residual issues, needs cholecystetomy, tinnitus, balance issues,. Dx. w/ leukemia, 10/2023 History of Any Multi-Drug Resistant Organisms: None Reported Past Surgical History: Bariatric Surgery, Cholecystectomy, Hysterectomy, Tubal Ligation, Uterine Ablation Additional Past Surgical History / Comment(s): LEEP PROCEDURE X 2, EGD, BACK INJECTIONS FOR PAIN. The patient has also undergone thoracic/thoracoscopic wedge biopsy of the right lung. 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; R and Y bypass at [facility] 2019,TRACHEOTOMY-RESOLVED Past Anesthesia/Blood Transfusion Reactions: Motion Sickness Additional Past Anesthesia/Blood Transfusion Reaction / Comm: no problem w/blood transfusion Past Psychological History: Anxiety, Depression Additional Psychological History / Comment(s): Currently going through a divorce. Smoking Status: Current every day smoker Past Alcohol Use History: None Reported Additional Past Alcohol Use History / Comment(s): STARTED SMOKING AT AGE 14 - STOPPED SMOKING on November 23, 2017. (Heaviest smoking amount was 3/4 pack/day). Pt started smoking again 2020 Past Drug Use History: None Reported - Past Family History Sister(s) Family Medical History: Cancer Mother Family Medical History: Cancer Additional Family Medical History / Comment(s): breast cancer Father Family Medical History: COPD, CVA/TIA, Myocardial Infarction ([place]) Additional Family Medical History / Comment(s): HEART PROBLEMS, AT AGE 64 Medications and Allergies Home Medications Medication Instructions Recorded Confirmed Type Levothyroxine Sodium [Synthroid] 50 mcg PO DAILY 01/05/14 11/07/23 History Pantoprazole Sodium [Protonix] 40 mg PO DAILY 05/28/18 11/07/23 History Cyclobenzaprine [Flexeril] 10 mg PO BID PRN 10/29/20 11/07/23 History Atogepant [Qulipta] 60 mg PO DAILY 08/21/21 11/07/23 History Ofatumumab [Kesimpta Pen] 20 mg SQ Q30D 02/12/22 11/07/23 History HYDROcodone/APAP 10-325MG [[place] 1 tab PO QID PRN 02/19/22 11/07/23 History 10-325] Albuterol Sulfate [Albuterol 2 puff INHALATION RT-Q6H PRN 02/19/23 11/07/23 History Sulfate Hfa] Gabapentin [Neurontin] 400 mg PO TID PRN 02/19/23 11/07/23 History Albuterol Nebulized [Ventolin 2.5 mg INHALATION RT-QID PRN 08/21/23 11/07/23 History Nebulized] Cholecalciferol [Vitamin D3 (25 75 mcg PO DAILY 08/21/23 11/07/23 History Mcg = 1000 Iu)] Famotidine [Pepcid] 20 mg PO HS 08/21/23 11/07/23 History Fluticasone/Umeclidin/Vilanter 1 puff INHALATION RT-DAILY PRN 08/21/23 11/07/23 History [Trelegy Ellipta 100-62.5-25] Ginkgo Biloba [place] Extract [Ginkgo 125 mg PO DAILY 08/21/23 11/07/23 History Biloba] Pravastatin Sodium [Pravachol] 40 mg PO HS 08/21/23 11/07/23 History Risedronate Sodium [Actonel] 35 mg PO WE 08/21/23 11/07/23 History Sertraline [Zoloft] 50 mg PO DAILY 08/21/23 11/07/23 History Vitamin A 2,400 mcg PO DAILY 08/21/23 11/07/23 History Budesonide-Formot 160-4.5 Mcg 2 puff INHALATION RT-BID #1 each 10/06/23 11/07/23 Rx [Symbicort 160-4.5 Mcg Inhaler] Furosemide [Lasix] 40 mg PO DAILY #30 tab 10/06/23 11/07/23 Rx ALPRAZolam [Xanax] 1 mg PO DAILY PRN 11/07/23 11/07/23 History Calcium Carbonate [Calcium] 600 mg PO BID 11/07/23 11/07/23 History Cetirizine HCl [Zyrtec] 10 mg PO DAILY 11/07/23 11/07/23 History L.acidoph,Paracasei, B.lactis 1 cap PO DAILY 11/07/23 11/07/23 History [Probiotic] Ondansetron Odt [Zofran Odt] 4 mg PO Q12HR PRN 11/07/23 11/07/23 History valACYclovir HCL [Valtrex] 1,000 mg PO DAILY PRN 11/07/23 11/07/23 History Allergies Allergy/AdvReac Type Severity Reaction Status Date / Time bee venom protein (honey bee) Allergy SWELLING , Verified 11/07/23 08:29 AND ITCHING Bleach (Sodium Hypochlorite) Allergy Rash/Hives Verified 11/07/23 08:29 nitrofurantoin Allergy Rash/Hives Verified 11/07/23 08:29 [From Macrobid] nitrofurantoin Allergy Rash/Hives Verified 11/07/23 08:29 macrocrystalline [From Macrobid] moxifloxacin [From Avelox] AdvReac Nausea & Verified 11/07/23 08:29 Vomiting NSAIDS (Non-Steroidal AdvReac Had Verified 11/07/23 08:29 Anti-Inflamma gastric sleeve surgery, causes bleeds. seasonal allergies Allergy congestion Uncoded 11/07/23 08:29 and sneezing Surgical - Exam Vital Signs Temp Pulse Resp BP Pulse Ox 98.0 F 105 H 15 144/93 98 11/06/23 21:28 11/06/23 21:28 11/06/23 21:28 11/06/23 21:28 11/06/23 21:28 Results - Labs 11/06/23 22:11 11/06/23 22:11 Abnormal Lab Results - Last 24 Hours (Table) 11/06/23 11/06/23 11/06/23 Range/Units 22:11 22:11 22:14 WBC 11.1 H (3.8-10.6) k/uL RBC 3.75 L (3.80-5.40) m/uL MCV 104.6 H (80.0-100.0) fL RDW 15.9 H (11.5-15.5) % Plt Count 564 H (150-450) k/uL Eosinophils # 0.8 H (0-0.7) k/uL Chloride 109 H (98-107) mmol/L Creatinine 0.43 L (0.52-1.04) mg/dL Alkaline Phosphatase 191 H (38-126) U/L Total Protein 5.7 L (6.3-8.2) g/dL Albumin 3.2 L (3.5-5.0) g/dL Ur Leukocyte Esterase Small H (Negative) Urine Bacteria Rare H (None) /hpf Diabetes panel 11/06/23 Range/Units 22:11 Sodium 138 (137-145) mmol/L Potassium 4.7 (3.5-5.1) mmol/L Chloride 109 H (98-107) mmol/L Carbon Dioxide 25 (22-30) mmol/L BUN 13 (7-17) mg/dL Creatinine 0.43 L (0.52-1.04) mg/dL Glucose 85 (74-99) mg/dL Calcium 8.8 (8.4-10.2) mg/dL AST 29 (14-36) U/L ALT 12 (4-34) U/L Alkaline Phosphatase 191 H (38-126) U/L Total Protein 5.7 L (6.3-8.2) g/dL Albumin 3.2 L (3.5-5.0) g/dL Calcium panel 11/06/23 Range/Units 22:11 Calcium 8.8 (8.4-10.2) mg/dL Albumin 3.2 L (3.5-5.0) g/dL Pituitary panel 11/06/23 Range/Units 22:11 Sodium 138 (137-145) mmol/L Potassium 4.7 (3.5-5.1) mmol/L Chloride 109 H (98-107) mmol/L Carbon Dioxide 25 (22-30) mmol/L BUN 13 (7-17) mg/dL Creatinine 0.43 L (0.52-1.04) mg/dL Glucose 85 (74-99) mg/dL Calcium 8.8 (8.4-10.2) mg/dL Adrenal panel 11/06/23 Range/Units 22:11 Sodium 138 (137-145) mmol/L Potassium 4.7 (3.5-5.1) mmol/L Chloride 109 H (98-107) mmol/L Carbon Dioxide 25 (22-30) mmol/L BUN 13 (7-17) mg/dL Creatinine 0.43 L (0.52-1.04) mg/dL Glucose 85 (74-99) mg/dL Calcium 8.8 (8.4-10.2) mg/dL Total Bilirubin 0.4 (0.2-1.3) mg/dL AST 29 (14-36) U/L ALT 12 (4-34) U/L Alkaline Phosphatase 191 H (38-126) U/L Total Protein 5.7 L (6.3-8.2) g/dL Albumin 3.2 L (3.5-5.0) g/dL
--- NOTE | 2023-11-07 17:01 | P.HPIM ---
History of Present Illness H&P Date: 11/07/23 This is a pleasant 48-year-old female who presented to the emergency department with abdominal pain that had started a few hours prior to ER arrival. Patient denied any nausea or vomiting although started having some loose stools and chills but unsure if she had a fever. Patient recently underwent a cholecystectomy earlier in August this year and had some postoperative complications with poor wound healing and abscess formation. Patient was evaluated by general surgery recommending transfer to tertiary treatment center with extensive lysis of adhesions and for surgical consult. Patient has been accepted by [facility] Dr. Pritchett currently awaiting a bed assignment. Patient did undergo CT abdomen which showed consistent with a mid small bowel obstruction suspected adhesions and underlying enterocolitis needs to be considered as well. Patient's labs reviewed with a mild white count of 11.1, hemoglobin 12.4, sodium was 138 with a potassium of 4.7, BUN 13 and creatinine 0.43. Alk phos was 191, amylase and lipase within normal limits at 41 urinalysis was done which was negative. Patient denies any pain, frequency, burning with urination. Patient did have an NG tube placed for decompression and has been started on Zosyn from the ED. Patient admitted to medicine. REVIEW OF SYSTEMS: CONSTITUTIONAL: No fever, no malaise, no fatigue. HEENT: No recent visual problems or hearing problems. Denied any sore throat. CARDIOVASCULAR: No chest pain, orthopnea, PND, no palpitations, no syncope. PULMONARY: No shortness of breath, no cough, no hemoptysis. GASTROINTESTINAL: Reports diarrhea that has stopped now, no nausea, no vomiting, reports of abdominal pain. NEUROLOGICAL: No headaches, no weakness, no numbness. HEMATOLOGICAL: Denies any bleeding or petechiae. GENITOURINARY: Denies any burning micturition, frequency, or urgency. MUSCULOSKELETAL/RHEUMATOLOGICAL: Denies any joint pain, swelling, or any muscle pain. ENDOCRINE: Denies any polyuria or polydipsia. The rest of the 14-point review of systems is negative. PHYSICAL EXAMINATION: GENERAL: The patient is alert and oriented x3, not in any acute distress. Well developed, thin built, elderly appearing, ill-appearing HEENT: Pupils are round and equally reacting to light. EOMI. No scleral icterus. No conjunctival pallor. Normocephalic, atraumatic. No pharyngeal erythema. No thyromegaly. CARDIOVASCULAR: S1 and S2 present. No murmurs, rubs, or gallops. PULMONARY: Diminished breath sounds bilaterally otherwise chest is clear to auscultation, no wheezing or crackles. ABDOMEN: Soft, tender on palpation of the lower left and right quadrants, nondistended, hypoactive bowel sounds. No palpable organomegaly. MUSCULOSKELETAL: No joint swelling or deformity. EXTREMITIES: No cyanosis, clubbing, or pedal edema. NEUROLOGICAL: Gross neurological examination did not reveal any focal deficits. SKIN: No rashes. Assessment: Abdominal pain likely secondary to small bowel obstruction Mild leukocytosis, likely secondary to above Recent cholecystectomy in August 2023 History of sleeve gastrectomy, Sharona-en-Y, surgical intervention for lysis of adhesions Continued ongoing nicotine dependence History of asthma/COPD, not in exacerbation History of CVA/TIA GERD Hypertension Sleep apnea and does not use a CPAP History of chronic back pain History of hypothyroidism Anxiety/depression GI prophylaxis DVT prophylaxis Full code Plan: Patient was admitted and n.p.o. for concerns of CT findings of small bowel obstruction. Patient evaluated by general surgery and was started on Zosyn with concerns of enterocolitis on the imaging and general surgery recommending transfer to tertiary treatment given patient has significant abdominal history with multiple surgeries. Transfer was initiated and patient has been accepted by [facility] in [place] Dr. Pritchett surgical services currently awaiting a bed Continue with n.p.o. and NG tube for decompression Follow-up on repeat labs Continue supportive care for pain management Encouraged increase activity as tolerated Patient currently awaiting a bed assignment at [facility] and transfer team will contact the unit once a bed is available. The impression and plan of care has been dictated by May Montalvo, Nurse Practitioner as directed. Dr. Naresh MD I have performed a history and examination and MDM of this patient, discussed the same with the dictator, and agree with the dictator's assessment and plan as written ,documented as a scribe. Based on total visit time, I have performed more than 50% of the visit. Past Medical History Past Medical History: Asthma, COPD, CVA/TIA, GERD/Reflux, Hypertension, Musculoskeletal Disorder, Neurologic Disorder, Sleep Apnea/CPAP/BIPAP, Thyroid Disorder Additional Past Medical History / Comment(s): smoking-related interstitial lung disease, doesn't use CPAP, history of seizure at the age of 16 related to med. to stop breast milk, endometriosis, chronic back pain, plantar fasciitis, hx. of Achilles tendinitis, probably antibiotic induced. She also has history of hypothyroidism, ALLERGIC rhinitis, migraines, uses oxygen 2L prn, recent iron infusion, MS , tia 2020 no residual issues, needs cholecystetomy, tinnitus, balance issues,. Dx. w/ leukemia, 10/2023 History of Any Multi-Drug Resistant Organisms: None Reported Past Surgical History: Bariatric Surgery, Cholecystectomy, Hysterectomy, Tubal Ligation, Uterine Ablation Additional Past Surgical History / Comment(s): LEEP PROCEDURE X 2, EGD, BACK INJECTIONS FOR PAIN. The patient has also undergone thoracic/thoracoscopic wedge biopsy of the right lung. 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; R and Y bypass at [facility] 2019,TRACHEOTOMY-RESOLVED Past Anesthesia/Blood Transfusion Reactions: Motion Sickness Additional Past Anesthesia/Blood Transfusion Reaction / Comment(s): no problem w/blood transfusion Past Psychological History: Anxiety, Depression Additional Psychological History / Comment(s): Currently going through a divorce. Smoking Status: Current every day smoker Past Alcohol Use History: None Reported Additional Past Alcohol Use History / Comment(s): STARTED SMOKING AT AGE 14 - STOPPED SMOKING on November 23, 2017. (Heaviest smoking amount was 3/4 pack/day). Pt started smoking again 2020 Past Drug Use History: None Reported - Past Family History Sister(s) Family Medical History: Cancer Mother Family Medical History: Cancer Additional Family Medical History / Comment(s): breast cancer Father Family Medical History: COPD, CVA/TIA, Myocardial Infarction ([place]) Additional Family Medical History / Comment(s): HEART PROBLEMS, AT AGE 64 Medications and Allergies Home Medications Medication Instructions Recorded Confirmed Type Levothyroxine Sodium [Synthroid] 50 mcg PO DAILY 01/05/14 11/07/23 History Pantoprazole Sodium [Protonix] 40 mg PO DAILY 05/28/18 11/07/23 History Cyclobenzaprine [Flexeril] 10 mg PO BID PRN 10/29/20 11/07/23 History Atogepant [Qulipta] 60 mg PO DAILY 08/21/21 11/07/23 History Ofatumumab [Kesimpta Pen] 20 mg SQ Q30D 02/12/22 11/07/23 History HYDROcodone/APAP 10-325MG [[place] 1 tab PO QID PRN 02/19/22 11/07/23 History 10-325] Albuterol Sulfate [Albuterol 2 puff INHALATION RT-Q6H PRN 02/19/23 11/07/23 History Sulfate Hfa] Gabapentin [Neurontin] 400 mg PO TID PRN 02/19/23 11/07/23 History Albuterol Nebulized [Ventolin 2.5 mg INHALATION RT-QID PRN 08/21/23 11/07/23 History Nebulized] Cholecalciferol [Vitamin D3 (25 75 mcg PO DAILY 08/21/23 11/07/23 History Mcg = 1000 Iu)] Famotidine [Pepcid] 20 mg PO HS 08/21/23 11/07/23 History Fluticasone/Umeclidin/Vilanter 1 puff INHALATION RT-DAILY PRN 08/21/23 11/07/23 History [[place] Ellipta 100-62.5-25] Ginkgo Biloba [place] Extract [Ginkgo 125 mg PO DAILY 08/21/23 11/07/23 History Biloba] Pravastatin Sodium [Pravachol] 40 mg PO HS 08/21/23 11/07/23 History Risedronate Sodium [Actonel] 35 mg PO WE 08/21/23 11/07/23 History Sertraline [Zoloft] 50 mg PO DAILY 08/21/23 11/07/23 History Vitamin A 2,400 mcg PO DAILY 08/21/23 11/07/23 History Budesonide-Formot 160-4.5 Mcg 2 puff INHALATION RT-BID #1 each 10/06/23 11/07/23 Rx [Symbicort 160-4.5 Mcg Inhaler] Furosemide [Lasix] 40 mg PO DAILY #30 tab 10/06/23 11/07/23 Rx ALPRAZolam [Xanax] 1 mg PO DAILY PRN 11/07/23 11/07/23 History Calcium Carbonate [Calcium] 600 mg PO BID 11/07/23 11/07/23 History Cetirizine HCl [Zyrtec] 10 mg PO DAILY 11/07/23 11/07/23 History L.acidoph,Paracasei, B.lactis 1 cap PO DAILY 11/07/23 11/07/23 History [Probiotic] Ondansetron Odt [Zofran Odt] 4 mg PO Q12HR PRN 11/07/23 11/07/23 History valACYclovir HCL [Valtrex] 1,000 mg PO DAILY PRN 11/07/23 11/07/23 History Allergies Allergy/AdvReac Type Severity Reaction Status Date / Time bee venom protein (honey bee) Allergy SWELLING , Verified 11/07/23 08:29 AND ITCHING Bleach (Sodium Hypochlorite) Allergy Rash/Hives Verified 11/07/23 08:29 nitrofurantoin Allergy Rash/Hives Verified 11/07/23 08:29 [From Macrobid] nitrofurantoin Allergy Rash/Hives Verified 11/07/23 08:29 macrocrystalline [From Macrobid] moxifloxacin [From Avelox] AdvReac Nausea & Verified 11/07/23 08:29 Vomiting NSAIDS (Non-Steroidal AdvReac Had Verified 11/07/23 08:29 Anti-Inflamma gastric sleeve surgery, causes bleeds. seasonal allergies Allergy congestion Uncoded 11/07/23 08:29 and sneezing Physical Exam Vitals: Vital Signs Temp Pulse Pulse Resp BP BP Pulse Ox 11/07/23 09:40 98.1 F 79 18 131/82 98 11/07/23 08:34 98.3 F 84 18 117/81 98 11/07/23 07:33 93 18 131/86 97 11/07/23 06:11 93 12 134/79 94 L 11/07/23 04:48 98.2 F 89 16 116/75 95 11/07/23 00:55 90 16 154/96 97 11/06/23 22:18 85 16 162/92 99 11/06/23 21:28 98.0 F 105 H 15 144/93 98 Intake and Output 11/06/23 11/07/23 11/07/23 22:59 06:59 14:59 Other: Weight 43.091 kg 43.091 kg Results CBC & Chem 7: 11/06/23 22:11 11/06/23 22:11 Labs: Abnormal Lab Results - Last 24 Hours (Table) 11/06/23 11/06/23 11/06/23 Range/Units 22:11 22:11 22:14 WBC 11.1 H (3.8-10.6) k/uL RBC 3.75 L (3.80-5.40) m/uL MCV 104.6 H (80.0-100.0) fL RDW 15.9 H (11.5-15.5) % Plt Count 564 H (150-450) k/uL Eosinophils # 0.8 H (0-0.7) k/uL Chloride 109 H (98-107) mmol/L Creatinine 0.43 L (0.52-1.04) mg/dL Alkaline Phosphatase 191 H (38-126) U/L Total Protein 5.7 L (6.3-8.2) g/dL Albumin 3.2 L (3.5-5.0) g/dL Ur Leukocyte Esterase Small H (Negative) Urine Bacteria Rare H (None) /hpf Thrombosis Risk Factor Assmnt - Choose All That Apply Each Factor Represents 1 point: Age 41-60 years Thrombosis Risk Factor Assessment Total Risk Factor Score: 1 Thrombosis Risk Factor Assessment Level: Low Risk
--- NOTE | 2023-11-08 10:45 | P.PN ---
Subjective Progress Note Date: 11/08/23 CHIEF COMPLAINT: Small bowel Obstruction HISTORY OF PRESENT ILLNESS: Patient followed for small bowel obstruction. She reports still having the same abdominal pain. Denies any nausea. Denies any bowel activity. No significant output through NG tube. Afebrile PHYSICAL EXAM: VITAL SIGNS: Reviewed. GENERAL: Well-developed in no acute distress. ABDOMEN: Soft. Mildly distended. Diffuse tenderness. NEUROLOGIC: Alert and oriented. Cranial nerves II through XII grossly intact. ASSESSMENT: 1. Small bowel obstruction possibly due to adhesions 2. Prior history of multiple abdominal surgeries PLAN: -Agree with transfer to [facility]. Awaiting bed availability. -Continue NG tube for decompression -Keep patient n.p.o. -Continue antibiotics -Continue IV fluids Physician Ehs Manager note has been reviewed by physician. Signing provider agrees with the documented findings, assessment, and plan of care. Objective - Vital Signs Vital signs: Vital Signs Temp 98.0 F 11/08/23 07:05 Pulse 92 11/08/23 07:40 Resp 12 11/08/23 07:40 BP 88/57 11/08/23 07:05 Pulse Ox 93 L 11/08/23 07:05 FiO2 Intake & Output 11/07/23 11/08/23 11/08/23 18:59 06:59 18:59 Weight 43.091 kg Other: Voiding Method Toilet Toilet # Voids 2 5 - Labs CBC & Chem 7: 11/06/23 22:11 11/06/23 22:11
[2023-11-08 14:49] VITALS: BMI 17.9
[2023-11-08 17:01] LABS: Appearance,Urine Clear (Clear); Bilirubin,Urine Negative (Negative); Blood,Urine Negative (Negative); Color,Urine Colorless; Glucose,Urine (UA) Negative (Negative); Leukocyte Esterase,Urine Negative (Negative); Nitrite,Urine Negative (Negative); PH, Urine 5.5 (5.0-8.0); Protein,Urine Negative (Negative); Specific Gravity,Urine 1.014 (1.001-1.035); Urobilinogen,Urine <2.0 mg/dL (<2.0)
[2023-11-08 17:05] LABS: Ketones,Urine 2+ (Negative)
--- NOTE | 2023-11-08 20:22 | XR ---
EXAMINATION TYPE: XR chest 1V confirm line plcmt DATE OF EXAM: 11/08/2023 7:03 PM CLINICAL INDICATION:Female, 48 years old with history of NG tube placement; [facility] COMPARISON: Chest radiographs from 11/07/2023 TECHNIQUE: XR chest 1V confirm line plcmt Frontal view of the chest. FINDINGS: Lungs/Pleura: There is flattening of the diaphragm with increased lucency of the lungs. No evidence o f pneumothorax, pleural effusion or focal consolidation. Pulmonary vascularity: Unremarkable. Heart/mediastinum: Cardiomediastinal silhouette is unremarkable. Musculoskeletal: No acute osseous pathology. Other findings: None Lines/Tubes: Nasogastric tube with side-port projecting over the distal esophagus. IMPRESSION: 1. Nasogastric tube side-port near the gastroesophageal junction. Consider advancement of 4.2 cm for optimal placement. 2. No acute cardiopulmonary disease process. 3 COPD changes.
[2023-11-08] MEDS: KETOROLAC 15 MG/ML 1 ML VIAL IVP PRN (21:22)
--- NOTE | 2023-11-09 05:19 | P.PN ---
Subjective Progress Note Date: 11/08/23 This is a pleasant 48-year-old female who presented to the emergency department with abdominal pain that had started a few hours prior to ER arrival. Patient denied any nausea or vomiting although started having some loose stools and chills but unsure if she had a fever. Patient recently underwent a cholecystectomy earlier in August this year and had some postoperative complications with poor wound healing and abscess formation. Patient was evaluated by general surgery recommending transfer to tertiary treatment center with extensive lysis of adhesions and for surgical consult. Patient has been accepted by [facility] Dr. Pritchett currently awaiting a bed assignment. Patient did undergo CT abdomen which showed consistent with a mid small bowel obstruction suspected adhesions and underlying enterocolitis needs to be considered as well. Patient's labs reviewed with a mild white count of 11.1, hemoglobin 12.4, sodium was 138 with a potassium of 4.7, BUN 13 and creatinine 0.43. Alk phos was 191, amylase and lipase within normal limits at 41 urinalysis was done which was negative. Patient denies any pain, frequency, burning with urination. Patient did have an NG tube placed for decompression and has been started on Zosyn from the ED. Patient admitted to medicine. 11/08/2023 Patient is seen in follow-up today continues to report abdominal pain with no bowel movement and patient is not passing gas. General surgery evaluated the patient recommending transfer to tertiary [facility] and patient has been accepted by [facility] in [place] currently awaiting a bed assignment. Patient continues with n.p.o. and NG tube and is asking for food. Patient also reporting having some pain with urination and will obtain urinalysis. REVIEW OF SYSTEMS: CONSTITUTIONAL: No fever, no malaise, no fatigue. HEENT: No recent visual problems or hearing problems. Denied any sore throat. CARDIOVASCULAR: No chest pain, orthopnea, PND, no palpitations, no syncope. PULMONARY: No shortness of breath, no cough, no hemoptysis. GASTROINTESTINAL: Reports diarrhea that has stopped now, no nausea, no vomiting, reports of abdominal pain. NEUROLOGICAL: No headaches, no weakness, no numbness. HEMATOLOGICAL: Denies any bleeding or petechiae. GENITOURINARY: Denies any burning micturition, frequency, or urgency. MUSCULOSKELETAL/RHEUMATOLOGICAL: Denies any joint pain, swelling, or any muscle pain. ENDOCRINE: Denies any polyuria or polydipsia. The rest of the 14-point review of systems is negative. PHYSICAL EXAMINATION: GENERAL: The patient is alert and oriented x3, not in any acute distress. Well developed, thin built, elderly appearing, ill-appearing HEENT: Pupils are round and equally reacting to light. EOMI. No scleral icterus. No conjunctival pallor. Normocephalic, atraumatic. No pharyngeal erythema. No thyromegaly. CARDIOVASCULAR: S1 and S2 present. No murmurs, rubs, or gallops. PULMONARY: Diminished breath sounds bilaterally otherwise chest is clear to auscultation, no wheezing or crackles. ABDOMEN: Soft, tender on palpation of the lower left and right quadrants, nondistended, hypoactive bowel sounds. No palpable organomegaly. MUSCULOSKELETAL: No joint swelling or deformity. EXTREMITIES: No cyanosis, clubbing, or pedal edema. NEUROLOGICAL: Gross neurological examination did not reveal any focal deficits. SKIN: No rashes. Assessment: Abdominal pain likely secondary to small bowel obstruction Mild leukocytosis, likely secondary to above Recent cholecystectomy in August 2023 History of sleeve gastrectomy, Sharona-en-Y, surgical intervention for lysis of adhesions Continued ongoing nicotine dependence History of asthma/COPD, not in exacerbation History of CVA/TIA GERD Hypertension Sleep apnea and does not use a CPAP History of chronic back pain History of hypothyroidism Anxiety/depression GI prophylaxis DVT prophylaxis Full code Plan: Patient was admitted and n.p.o. for concerns of CT findings of small bowel obstruction. Patient evaluated by general surgery and was started on Zosyn with concerns of enterocolitis on the imaging and general surgery recommending transfer to tertiary treatment given patient has significant abdominal history with multiple surgeries. Transfer was initiated and patient has been accepted by [facility] in [place] Dr. Pritchett surgical services currently awaiting a bed. Transfer team was contacted and bed is discharge dependent and may likely happen later this evening or tomorrow per transfer team. Transfer team will contact the unit once a bed is available Continue with n.p.o. and NG tube for decompression Patient is reporting some tenderness with urination and will obtain a urinalysis Follow-up on repeat labs, replace electrolytes per protocol Continue supportive care for pain management Encouraged increase activity as tolerated Patient currently awaiting a bed assignment at [facility] and transfer team will contact the unit once a bed is available. The impression and plan of care has been dictated by May Montalvo, Nurse Practitioner as directed. Dr. Naresh MD I have performed a history and examination and MDM of this patient, discussed the same with the dictator, and agree with the dictator's assessment and plan as written ,documented as a scribe. Based on total visit time, I have performed more than 50% of the visit. Objective - Vital Signs Vital signs: Vital Signs Temp 98.3 F 11/08/23 13:37 Pulse 78 11/08/23 13:37 Resp 12 11/08/23 13:37 BP 134/78 11/08/23 13:37 Pulse Ox 98 11/08/23 13:37 FiO2 Intake & Output 11/08/23 11/08/23 11/09/23 06:59 18:59 06:59 Weight 43.091 kg Other: Voiding Method Toilet Toilet # Voids 5 2 - Labs CBC & Chem 7: 11/06/23 22:11 11/06/23 22:11 Labs: Abnormal Lab Results - Last 24 Hours (Table) 11/08/23 Range/Units 16:29 Urine Ketones 2+ H (Negative) Microbiology - Last 24 Hours (Table) 11/07/23 00:30 Blood Culture - Preliminary Blood 11/07/23 00:15 Blood Culture - Preliminary Blood
[2023-11-09 12:44] LABS: Basophils # (A) 0.1 k/uL (0-0.2); Basophils % (A) 1 %; Eosinophils # (A) 0.9 k/uL (0-0.7); Eosinophils % (A) 12 %; HCT 42.5 % (34.0-46.0); Hypochromasia Marked; Lymphocytes # (A) 1.7 k/uL (1.0-4.8); Lymphocytes % (A) 21 %; MCH 32.6 pg (25.0-35.0); MCHC 30.5 g/dL (31.0-37.0); MCV 106.9 fL (80.0-100.0); Macrocytosis Marked; Mean Platelet Volume 6.8; Monocytes # (A) 0.6 k/uL (0-1.0); Monocytes % (A) 8 %; Neutrophils # (A) 4.4 k/uL (1.3-7.7); Neutrophils % (A) 56 %; Platelet Count 603 k/uL (150-450); RBC 3.97 m/uL (3.80-5.40); RDW 15.4 % (11.5-15.5); WBC 7.9 k/uL (3.8-10.6)
[2023-11-09 12:58] LABS: ALT 62 U/L (4-34); AST 200 U/L (14-36); African American GFR (CKD) >90 (>60 ml/min/1.73 sqM); Albumin 3.5 g/dL (3.5-5.0); Albumin/Globulin Ratio 1.3; Alkaline Phosphatase 409 U/L (38-126); Anion Gap 11 mmol/L; Blood Urea Nitrogen 9 mg/dL (7-17); Calcium 8.9 mg/dL (8.4-10.2); Carbon Dioxide 18 mmol/L (22-30); Chloride 108 mmol/L (98-107); Globulin 2.7 g/dL; Magnesium 1.6 mg/dL (1.6-2.3); Non-African American GFR(CKD) >90 (>60 ml/min/1.73 sqM); Potassium 4.1 mmol/L (3.5-5.1); Sodium 137 mmol/L (137-145); Total Bilirubin 0.6 mg/dL (0.2-1.3); Total Protein 6.2 g/dL (6.3-8.2)
[2023-11-09 13:11] LABS: Glucose 33 mg/dL (74-99)
[2023-11-09 13:18] LABS: Glucose,Whole Blood 31 mg/dL (70-110)
[2023-11-09 13:18] LABS: Glucose,Whole Blood 30 mg/dL (70-110)
[2023-11-09] MEDS: DEXTROSE 50% SYRINGE 50 ML IVP ONE ×2 (13:30→19:23)
[2023-11-09] MEDS: DEXTROSE 5%-0.9% NACL 1,000 ML IV SCH (13:32)
[2023-11-09 13:38] LABS: Glucose,Whole Blood 120 mg/dL (70-110)
[2023-11-09] MEDS ORDERED: Magnesium Replacement Protocol 1 EACH MISC MISCELLANE PRN (14:11)
[2023-11-09] MEDS ORDERED: ONDANSETRON 4 MG/2 ML VIAL IVP PRN (14:15)
[2023-11-09] MEDS: MAGNESIUM SULFATE-D5W PMX 1 GM in DEXTROSE/WATER 1 100ML.BAG IVPB SCH (14:45)
[2023-11-09] MEDS: KETOROLAC 15 MG/ML 1 ML VIAL IVP SCH (16:12)
[2023-11-09 18:54] LABS: Glucose,Whole Blood 51 mg/dL (70-110)
[2023-11-09 19:23] LABS: Glucose,Whole Blood 48 mg/dL (70-110)
[2023-11-09] MEDS: DEXTROSE 50% SYRINGE 50 ML IVP STA (19:36)
[2023-11-09] MEDS: PANTOPRAZOLE 40 MG/10 ML VIAL IV SCH (20:04)
[2023-11-09 20:07] LABS: Glucose,Whole Blood 143 mg/dL (70-110)
[2023-11-10 00:01] LABS: Glucose,Whole Blood 86 mg/dL (70-110)
--- NOTE | 2023-11-10 04:56 | P.PN ---
Subjective Progress Note Date: 11/09/23 This is a pleasant 48-year-old female who presented to the emergency department with abdominal pain that had started a few hours prior to ER arrival. Patient denied any nausea or vomiting although started having some loose stools and chills but unsure if she had a fever. Patient recently underwent a cholecystectomy earlier in August this year and had some postoperative complications with poor wound healing and abscess formation. Patient was evaluated by general surgery recommending transfer to tertiary treatment center with extensive lysis of adhesions and for surgical consult. Patient has been accepted by [facility] Dr. Pritchett currently awaiting a bed assignment. Patient did undergo CT abdomen which showed consistent with a mid small bowel obstruction suspected adhesions and underlying enterocolitis needs to be considered as well. Patient's labs reviewed with a mild white count of 11.1, hemoglobin 12.4, sodium was 138 with a potassium of 4.7, BUN 13 and creatinine 0.43. Alk phos was 191, amylase and lipase within normal limits at 41 urinalysis was done which was negative. Patient denies any pain, frequency, burning with urination. Patient did have an NG tube placed for decompression and has been started on Zosyn from the ED. Patient admitted to medicine. 11/08/2023 Patient is seen in follow-up today continues to report abdominal pain with no bowel movement and patient is not passing gas. General surgery evaluated the patient recommending transfer to tertiary treatment center and patient has been accepted by [facility] in [place] currently awaiting a bed assignment. Patient continues with n.p.o. and NG tube and is asking for food. Patient also reporting having some pain with urination and will obtain urinalysis. 11/09/2023 Patient is seen in follow-up today currently sitting up in the chair reports is not passing any gas or having bowel movements. Patient is currently awaiting bed assignment at [facility] was been accepted by surgery services. General surgery following recommending transfer to tertiary treatment for small bowel obstruction and significant amount of adhesions noted. Transfer team was contacted again reporting they have no bed at this time and will call the unit once a bed is available. Patient is afebrile with no reports of chest pain or shortness of breath. Patient continues to report abdominal pain and per nursing staff has been requesting the pain medication [id number]. A.m. labs were pending and a critical result of blood sugar of 33 was noted. Patient was given an amp of D50 and will transition fluids to dextrose and continue monitoring Accu-Cheks closely. Patient continues to request food as well patient reports to feeling hungry. Encouraged to increase activity as tolerat ed. Continue with NG tube for decompression. Review of systems: Constitutional: No reports of fatigue, fever, or chills Cardiovascular: No reports of chest pain or palpitations Respiratory: No reports of shortness of breath or cough GI: reports of nausea, no vomiting, reports not passing any gas or bowel movements : No reports of dysuria or retention Neurovascular: No reports of weakness or numbness All medications have been reviewed PHYSICAL EXAMINATION: GENERAL: The patient is alert and oriented x3, not in any acute distress. Well developed, thin built, elderly appearing, ill-appearing HEENT: Pupils are round and equally reacting to light. EOMI. No scleral icterus. No conjunctival pallor. Normocephalic, atraumatic. No pharyngeal erythema. No thyromegaly. CARDIOVASCULAR: S1 and S2 present. No murmurs, rubs, or gallops. PULMONARY: Diminished breath sounds bilaterally otherwise chest is clear to auscultation, no wheezing or crackles. ABDOMEN: Soft, tender on palpation of the lower left and right quadrants, nondistended, hypoactive bowel sounds. No palpable organomegaly. MUSCULOSKELETAL: No joint swelling or deformity. EXTREMITIES: No cyanosis, clubbing, or pedal edema. NEUROLOGICAL: Gross neurological examination did not reveal any focal deficits. SKIN: No rashes. Assessment: Abdominal pain likely secondary to small bowel obstruction Mild leukocytosis, likely secondary to above Recent cholecystectomy in August 2023 History of sleeve gastrectomy, Sharona-en-Y, surgical intervention for lysis of adhesions Continued ongoing nicotine dependence History of asthma/COPD, not in exacerbation History of CVA/TIA GERD Hypertension Sleep apnea and does not use a CPAP History of chronic back pain History of hypothyroidism Anxiety/depression GI prophylaxis DVT prophylaxis Full code Plan: Patient was admitted and n.p.o. for concerns of CT findings of small bowel obstr uction. Patient evaluated by general surgery and was started on Zosyn with concerns of enterocolitis on the imaging and general surgery recommending transfer to tertiary treatment given patient has significant abdominal history with multiple surgeries. Transfer was initiated and patient has been accepted by [facility] in [place] Dr. Pritchett surgical services currently awaiting a bed. Transfer team was contacted again today 11/09/2023 and bed is discharge dependent and may likely happen later this evening or tomorrow per transfer team. Transfer team will contact the unit once a bed is available Continue with n.p.o. and NG tube for decompression Patient is reporting some tenderness with urination and urinalysis was negative Follow-up on repeat labs, replace electrolytes per protocol Continue monitoring Accu-Cheks as blood sugar was noted to be low on this morning's labs with a blood glucose of 33. Will continue hypoglycemia protocol and also transition fluids to dextrose with gentle hydration Continue supportive care for pain management Encouraged increase activity as tolerated Patient currently awaiting a bed assignment at [facility] and transfer team will contact the unit once a bed is available. The impression and plan of care has been dictated by May Montalvo, Nurse Practitioner as directed. Dr. Naresh MD I have performed a history and examination and MDM of this patient, discussed the same with the dictator, and agree with the dictator's assessment and plan as written ,documented as a scribe. Based on total visit time, I have performed more than 50% of the visit. Objective - Vital Signs Vital signs: Vital Signs Temp 98.2 F 11/09/23 07:02 Pulse 79 11/09/23 07:02 Resp 16 11/09/23 07:02 BP 106/70 11/09/23 07:02 Pulse Ox 96 11/09/23 08:50 FiO2 Intake & Output 11/08/23 11/09/23 11/09/23 18:59 06:59 18:59 Weight 43.091 kg Other: Voiding Method Toilet # Voids 2 6 - Labs CBC & Chem 7: 11/09/23 12:22 11/09/23 12:22 Labs: Abnormal Lab Results - Last 24 Hours (Table) 11/08/23 Range/Units 16:29 Urine Ketones 2+ H (Negative) Microbiology - Last 24 Hours (Table) 11/07/23 00:30 Blood Culture - Preliminary Blood 11/07/23 00:15 Blood Culture - Preliminary Blood
[2023-11-10 06:02] LABS: Glucose,Whole Blood 77 mg/dL (70-110)
[2023-11-10 08:56] LABS: BUN/Creat Ratio 6.67 Ratio (12.00-20.00); Calcium 8.7 mg/dL (8.7-10.3); Carbon Dioxide 23.6 mmol/L (21.6-31.8); Chloride 103 mmol/L (96-109); Glucose 77 mg/dL (70-110); Magnesium 1.9 mg/dL (1.5-2.4); Potassium 3.6 mmol/L (3.5-5.5); Sodium 140 mmol/L (135-145)
--- NOTE | 2023-11-10 16:07 | CDI ---
Documentation Clarification Form Date: 11/10/2023 03:40:12 PM From: Mignon Roberts RN, CCD Phone: [phone] Admit Date: 11/07/2023 12:11:00 AM Patient Name: Laura Rangel Visit Number: [id number] Discharge Date: ATTENTION: The Clinical Documentation Specialists (CDI) and [facility] Coding Staff appreciate your assistance in clarifying documentation. Please respond to the clarification below the line at the bottom and electronically sign. The CDI & [facility] Coding staff will review the response and follow-up if needed. Please note: Queries are made part of the Legal Health Record. If you have any questions, please contact the author of this message via ITS. May Hurley The Registered Dietitian assessment on indicates this patient meets criteria for malnutrition chronic, severe. Based on this information and the findings below, is there an additional diagnosis that is clinically appropriate for this patient? History/Risk Factors: Small bowel obstruction, Asthma, COPD, CVA, Sleeve gastrectomy, Sharona-en-Y Clinical Indicators: 48-year-old female well-developed thin built. Present with abdominal pain secondary to small bowel obstruction Current BMI: 17.9 Height [address] Consult Assessment: Poor intake, Underweight Treatment: NPO NGT for decompression Hypoglycemia protocol D5-Ns IV @75 MLS/HR Is there an additional diagnosis that is clinically appropriate for this patient? [ ] Mild Protein-Calorie Malnutrition [ ] Moderate Protein-Calorie Malnutrition [ x] Severe Protein-Calorie Malnutrition [ ] No additional diagnosis/Not clinically significant [ ] Other condition, please specify [ ] Unable to Determine (Template Last Revised: October 2022) MTDD
--- NOTE | 2023-11-10 16:18 | P.PN ---
Subjective Progress Note Date: 11/10/23 This is a pleasant 48-year-old female who presented to the emergency department with abdominal pain that had started a few hours prior to ER arrival. Patient denied any nausea or vomiting although started having some loose stools and chills but unsure if she had a fever. Patient recently underwent a cholecystectomy earlier in August this year and had some postoperative complications with poor wound healing and abscess formation. Patient was evaluated by general surgery recommending transfer to tertiary treatment center with extensive lysis of adhesions and for surgical consult. Patient has been accepted by [facility] Dr. Pritchett currently awaiting a bed assignment. Patient did undergo CT abdomen which showed consistent with a mid small bowel obstruction suspected adhesions and underlying enterocolitis needs to be considered as well. Patient's labs reviewed with a mild white count of 11.1, hemoglobin 12.4, sodium was 138 with a potassium of 4.7, BUN 13 and creatinine 0.43. Alk phos was 191, amylase and lipase within normal limits at 41 urinalysis was done which was negative. Patient denies any pain, frequency, burning with urination. Patient did have an NG tube placed for decompression and has been started on Zosyn from the ED. Patient admitted to medicine. 11/08/2023 Patient is seen in follow-up today continues to report abdominal pain with no bowel movement and patient is not passing gas. General surgery evaluated the patient recommending transfer to tertiary treatment center and patient has been accepted by [facility] in [place] currently awaiting a bed assignment. Patient continues with n.p.o. and NG tube and is asking for food. Patient also reporting having some pain with urination and will obtain urinalysis. 11/09/2023 Patient is seen in follow-up today currently sitting up in the chair reports is not passing any gas or having bowel movements. Patient is currently awaiting bed assignment at [facility] was been accepted by surgery services. General surgery following recommending transfer to tertiary treatment for small bowel obstruction and significant amount of adhesions noted. Transfer team was contacted again reporting they have no bed at this time and will call the unit once a bed is available. Patient is afebrile with no reports of chest pain or shortness of breath. Patient continues to report abdominal pain and per nursing staff has been requesting the pain medication [id number]. A.m. labs were pending and a critical result of blood sugar of 33 was noted. Patient was given an amp of D50 and will transition fluids to dextrose and continue monitoring Accu-Cheks closely. Patient continues to request food as well patient reports to feeling hungry. Encouraged to increase activity as tolerat ed. Continue with NG tube for decompression. 11/10/2023 Patient seen and evaluated in follow-up this morning continues with NG tube which required some advancement as it was dislodged earlier with movement with minimal drainage noted. Patient is tolerating ice chips and reports did have a few small amounts of flatus but no bowel movement as of yet. Patient given her significant abdominal surgeries was evaluated by general surgery recommending transfer for tertiary treatment. Patient was accepted by [facility] and currently awaiting a bed assignment. Patient is afebrile with no reports of chest pain or shortness of breath. Blood sugars were on the lower side due to being n.p.o. and have added dextrose with normal saline for gentle IV hydration. Continue monitoring Accu-Cheks and use as needed D50 for hypoglycemia. Review of systems: Constitutional: No reports of fatigue, fever, or chills Cardiovascular: No reports of chest pain or palpitations Respiratory: No reports of shortness of breath or cough GI: reports of nausea, no vomiting, reports passing some gas with no bowel movements as of yet : No reports of dysuria or retention Neurovascular: No reports of weakness or numbness All medications have been reviewed PHYSICAL EXAMINATION: GENERAL: The patient is alert and oriented x3, not in any acute distress. Well developed, thin built, elderly appearing, ill-appearing HEENT: Pupils are round and equally reacting to light. EOMI. No scleral icterus. No conjunctival pallor. Normocephalic, atraumatic. No pharyngeal erythema. No thyromegaly. CARDIOVASCULAR: S1 and S2 present. No murmurs, rubs, or gallops. PULMONARY: Diminished breath sounds bilaterally otherwise chest is clear to auscultation, no wheezing or crackles. ABDOMEN: Soft, tender on palpation of the lower left and right quadrants, nondistended, hypoactive bowel sounds. No palpable organomegaly. MUSCULOSKELETAL: No joint swelling or deformity. EXTREMITIES: No cyanosis, clubbing, or pedal edema. NEUROLOGICAL: Gross neurological examination did not reveal any focal deficits. SKIN: No rashes. Assessment: Abdominal pain likely secondary to small bowel obstruction Mild leukocytosis, likely secondary to above Recent cholecystectomy in August 2023 History of sleeve gastrectomy, Sharona-en-Y, surgical intervention for lysis of adhesions Continued ongoing nicotine dependence History of asthma/COPD, not in exacerbation History of CVA/TIA GERD Hypertension Sleep apnea and does not use a CPAP History of chronic back pain History of hypothyroidism Anxiety/depression GI prophylaxis DVT prophylaxis Full code Plan: Patient was admitted and n.p.o. for concerns of CT findings of small bowel obstruction. Patient evaluated by general surgery and was started on Zosyn with concerns of enterocolitis on the imaging and general surgery recommending transfer to tertiary treatment given patient has significant abdominal history with multiple surgeries. Transfer was initiated and patient has been accepted by [facility] in [place] Dr. Pritchett surgical services currently awaiting a bed. Transfer team was contacted again today 11/10/2023 and bed is discharge dependent and may likely happen later this evening or tomorrow per transfer team. Transfer team will contact the unit once a bed is available. Updated the patient as she is becoming agitated about waiting Continue with n.p.o. and NG tube for decompression Patient is reporting some tenderness with urination and urinalysis was negative Follow-up on repeat labs, replace electrolytes per protocol Continue monitoring Accu-Cheks as blood sugar was noted to be low on this morning's labs with a blood glucose of 33. Will continue hypoglycemia protocol and also transition fluids to dextrose with gentle hydration Continue supportive care for pain management Encouraged increase activity as tolerated Patient currently awaiting a bed assignment at [facility] and transfer team will contact the unit once a bed is available. The impression and plan of care has been dictated by May Montalvo, Nurse Practitioner as directed. Dr. Kyle MD I have performed a history and examination and MDM of this patient, discussed the same with the dictator, and agree with the dictator's assessment and plan as written ,documented as a scribe. Based on total visit time, I have performed more than 50% of the visit. Objective - Vital Signs Vital signs: Vital Signs Temp 97.4 F L 11/10/23 14:00 Pulse 81 11/10/23 14:00 Resp 18 11/10/23 14:00 BP 148/92 11/10/23 14:00 Pulse Ox 92 L 11/10/23 14:00 FiO2 Intake & Output 11/09/23 11/10/23 11/10/23 18:59 06:59 18:59 Output Total 200 Balance -200 Output: Gastric Drainage 200 Other: Voiding Method Toilet Toilet Toilet # Voids 1 6 - Labs CBC & Chem 7: 11/09/23 12:22 11/10/23 05:15 Labs: Abnormal Lab Results - Last 24 Hours (Table) 11/09/23 11/09/23 11/09/23 Range/Units 18:53 19:20 20:06 Anion Gap (4.00-12.00) mmol/L BUN (9.0-27.0) mg/dL BUN/Creatinine Ratio (12.00-20.00) Ratio POC Glucose (mg/dL) 51 L 48 L* 143 H (70-110) mg/dL 11/10/23 Range/Units 05:15 Anion Gap 13.40 H (4.00-12.00) mmol/L BUN 4.0 L (9.0-27.0) mg/dL BUN/Creatinine Ratio 6.67 L (12.00-20.00) Ratio POC Glucose (mg/dL) (70-110) mg/dL Microbiology - Last 24 Hours (Table) 11/07/23 00:30 Blood Culture - Preliminary Blood 11/07/23 00:15 Blood Culture - Preliminary Blood
[2023-11-10 16:42] LABS: Glucose,Whole Blood 86 mg/dL (70-110)
[2023-11-11 01:35] LABS: Glucose,Whole Blood 98 mg/dL (70-110)
[2023-11-11 05:54] LABS: Glucose,Whole Blood 76 mg/dL (70-110)
[2023-11-11 07:37] VITALS: BP 138/75; PULSE 89; RESP 17; TEMP 97.8
--- NOTE | 2023-11-11 12:10 | P.DS ---
Providers Date of admission: 11/07/23 00:11 Expected date of discharge: 11/11/23 Attending physician: Keli Galicia MD Consults: 11/07/23 00:09 Consult Physician Urgent Consulting Provider: Kel Nagel Consult Reason/Comments: Small bowel obstruction Do you want consulting provider notified?: Already Contacted Primary care physician: Keven Kebede Hospital Course: Final diagnosis Abdominal pain likely secondary to small bowel obstruction Mild leukocytosis, likely secondary to above Recent cholecystectomy in August 2023 History of sleeve gastrectomy, Sharona-en-Y, surgical intervention for lysis of adhesions Continued ongoing nicotine dependence History of asthma/COPD, not in exacerbation History of CVA/TIA GERD Hypertension Sleep apnea and does not use a CPAP History of chronic back pain History of hypothyroidism Anxiety/depression GI prophylaxis DVT prophylaxis Full code Discharge disposition Patient is being transferred in a stable condition with guarded prognosis to [facility] in [place]. Patient has been accepted by Dr. Pritchett surgery services currently awaiting a bed. Reconference was performed with Dr. Jeter of [facility]. Patient will follow-up with Dr. Kebede in the outpatient setting upon discharge. Patient is to continue with IV Zosyn as scheduled. total time taken is greater than 35 minutes. Hospital course This is a 48-year-old female who was recently admitted with abdominal pain with significant history of sleeve gastrectomy with complications and Sharona-en-Y and lysis of adhesions along with recent cholecystectomy in August 2023. Patient noted to have mid small bowel obstruction with suspected adhesions with underlying enterocolitis not excluded. Patient is continued on Zosyn and also n.p.o. other than occasional ice chips. Patient continues with an NG tube and has started to pass some gas. Patient has not had a bowel movement. Patient was evaluated by surgery services here and given the extent of her surgical history recommended transferring to a tertiary treatment center for possible surgical intervention. Patient was accepted by [facility] Dr. Pritchett surgical services and awaiting a bed. Patient received a bed assignment this morning with report given to Dr. Jeter surgical on-call. Patient is agreeable with this transfer and will be transported today. Please refer to other consultation notes for further HPI. Currently no reports of chest pain, shortness of breath, or palpitations. Patient is afebrile. No reports of nausea or vomiting and patient is tolerating diet. Patient will be going to [facility] today. Guarded prognosis Physical exam: Gen: This is a 48-year-old female who is awake, alert and oriented x 3, well- developed, thin built, elderly appearing HEENT: Head is atraumatic, normocephalic. Pupils equal, round. Sclerae is anicteric. NECK: Supple. No JVD. No lymphadenopathy. No thyromegaly. LUNGS: Clear to auscultation. No wheezes or rhonchi. No intercostal retractions. HEART: Regular rate and rhythm. No murmur. ABDOMEN: Soft. Bowel sounds are present. No masses. Nontender on palpation. EXTREMITIES: No pedal edema. No calf tenderness. NEUROLOGICAL: Patient is awake, alert and oriented x3. Cranial nerves 2 through 12 are grossly intact. Please refer to medication reconciliation sheet for a list of medications. The impression and plan of care has been dictated by May Montalvo, Nurse Practitioner as directed. Dr. Kyle MD I have performed a history and examination and MDM of this patient, discussed the same with the dictator, and agree with the dictator's assessment and plan as written ,documented as a scribe. Based on total visit time, I have performed more than 50% of the visit. Patient Condition at Discharge: Stable Plan - Discharge Summary Discharge Rx Participant: Yes New Discharge Prescriptions: No Action Levothyroxine Sodium [Synthroid] 50 mcg PO DAILY Pantoprazole Sodium [Protonix] 40 mg PO DAILY Albuterol Sulfate [Albuterol Sulfate Hfa] 2 puff INHALATION RT-Q6H PRN PRN Reason: Shortness Of Breath Ginkgo Biloba [place]et [place]ove Extract [Ginkgo Biloba] 125 mg PO DAILY Pravastatin Sodium [Pravachol] 40 mg PO HS Famotidine [Pepcid] 20 mg PO HS L.acidoph,Paracasei, B.lactis [Probiotic] 1 cap PO DAILY valACYclovir HCL [Valtrex] 1,000 mg PO DAILY PRN PRN Reason: OUTBREAK Ondansetron Odt [Zofran Odt] 4 mg PO Q12HR PRN PRN Reason: Nausea And Vomiting ALPRAZolam [Xanax] 1 mg PO DAILY PRN PRN Reason: Anxiety Cyclobenzaprine [Flexeril] 10 mg PO BID PRN PRN Reason: Muscle Spasm Atogepant [Qulipta] 60 mg PO DAILY Ofatumumab [Kesimpta Pen] 20 mg SQ Q30D HYDROcodone/APAP 10-325MG [[place] 10-325] 1 tab PO QID PRN PRN Reason: Pain Gabapentin [Neurontin] 400 mg PO TID PRN PRN Reason: Pain Vitamin A 2,400 mcg PO DAILY Cholecalciferol [Vitamin D3 (25 Mcg = 1000 Iu)] 75 mcg PO DAILY Fluticasone/Umeclidin/Vilanter [Trelegy Ellipta 100-62.5-25] 1 puff INHALATION RT-DAILY PRN PRN Reason: Shortness Of Breath Albuterol Nebulized [Ventolin Nebulized] 2.5 mg INHALATION RT-QID PRN PRN Reason: Shortness Of Breath Sertraline [Zoloft] 50 mg PO DAILY Risedronate Sodium [Actonel] 35 mg PO WE Furosemide [Lasix] 40 mg PO DAILY #30 tab Budesonide-Formot 160-4.5 Mcg [Symbicort 160-4.5 Mcg Inhaler] 2 puff INHALATION RT-BID #1 each Calcium Carbonate [Calcium] 600 mg PO BID Cetirizine HCl [Zyrtec] 10 mg PO DAILY Discharge Medication List Levothyroxine Sodium [Synthroid] 50 mcg PO DAILY 01/05/14 [History] Pantoprazole Sodium [Protonix] 40 mg PO DAILY 05/28/18 [History] Cyclobenzaprine [Flexeril] 10 mg PO BID PRN 10/29/20 [History] Atogepant [Qulipta] 60 mg PO DAILY 08/21/21 [History] Ofatumumab [Kesimpta Pen] 20 mg SQ Q30D 02/12/22 [History] HYDROcodone/APAP 10-325MG [[place] 10-325] 1 tab PO QID PRN 02/19/22 [History] Albuterol Sulfate [Albuterol Sulfate Hfa] 2 puff INHALATION RT-Q6H PRN 02/19/23 [History] Gabapentin [Neurontin] 400 mg PO TID PRN 02/19/23 [History] Albuterol Nebulized [Ventolin Nebulized] 2.5 mg INHALATION RT-QID PRN 08/21/23 [History] Cholecalciferol [Vitamin D3 (25 Mcg = 1000 Iu)] 75 mcg PO DAILY 08/21/23 [History] Famotidine [Pepcid] 20 mg PO HS 08/21/23 [History] Fluticasone/Umeclidin/Vilanter [Trelegy Ellipta 100-62.5-25] 1 puff INHALATION RT-DAILY PRN 08/21/23 [History] Ginkgo Biloba [place] Extract [Ginkgo Biloba] 125 mg PO DAILY 08/21/23 [History] Pravastatin Sodium [Pravachol] 40 mg PO HS 08/21/23 [History] Risedronate Sodium [Actonel] 35 mg PO WE 08/21/23 [History] Sertraline [Zoloft] 50 mg PO DAILY 08/21/23 [History] Vitamin A 2,400 mcg PO DAILY 08/21/23 [History] Budesonide-Formot 160-4.5 Mcg [Symbicort 160-4.5 Mcg Inhaler] 2 puff INHALATION RT-BID #1 each 10/06/23 [Rx] Furosemide [Lasix] 40 mg PO DAILY #30 tab 10/06/23 [Rx] ALPRAZolam [Xanax] 1 mg PO DAILY PRN 11/07/23 [History] Calcium Carbonate [Calcium] 600 mg PO BID 11/07/23 [History] Cetirizine HCl [Zyrtec] 10 mg PO DAILY 11/07/23 [History] L.acidoph,Paracasei, B.lactis [Probiotic] 1 cap PO DAILY 11/07/23 [History] Ondansetron Odt [Zofran Odt] 4 mg PO Q12HR PRN 11/07/23 [History] valACYclovir HCL [Valtrex] 1,000 mg PO DAILY PRN 11/07/23 [History] Follow up Appointment(s)/Referral(s): Keven Kebede MD [Primary Care Provider] - 1-2 days Activity/Diet/Wound Care/Special Instructions: Patient is going to [facility] in [place] and has been accepted by Dr. Pritchett for surgery services Currently awaiting a bed assignment as of 11/08/2023 per transfer team at [facility] Discharge Disposition: OTHER INSTITUTION NOT DEFINED
== END 2023-11-11 10:25 | disposition other institution (70) | DRG 388 ==
LOC: EC 21:26 → 5NMEDONC 11-07 00:11 → 4SSUR 11-07 03:35
PROVIDERS: ADMIT Internal Medicine; ATTEND Internal Medicine
PROC: 0D9670Z Drainage of Stomach with Drainage Device, Via Natural or Artificial Opening (ICD-10-PCS; principal; 2023-11-07)
DX: K56.609 Unspecified intestinal obstruction, unspecified as to partial versus complete obstruction (principal); E43 Unspecified severe protein-calorie malnutrition; Z68.1 Body mass index [BMI] 19.9 or less, adult; E03.9 Hypothyroidism, unspecified; Z79.890 Hormone replacement therapy; F17.210 Nicotine dependence, cigarettes, uncomplicated; F41.9 Anxiety disorder, unspecified; K21.9 Gastro-esophageal reflux disease without esophagitis; F32.A Depression, unspecified; I10 Essential (primary) hypertension; G47.30 Sleep apnea, unspecified; Z63.5 Disruption of family by separation and divorce; J44.9 Chronic obstructive pulmonary disease, unspecified; D72.829 Elevated white blood cell count, unspecified; Z79.51 Long term (current) use of inhaled steroids; Z79.899 Other long term (current) drug therapy; Z82.49 Family history of ischemic heart disease and other diseases of the circulatory system; Z82.5 Family history of asthma and other chronic lower respiratory diseases; Z85.6 Personal history of leukemia; Z86.73 Personal history of transient ischemic attack (TIA), and cerebral infarction without residual deficits; Z90.49 Acquired absence of other specified parts of digestive tract; Z90.710 Acquired absence of both cervix and uterus; Z90.81 Acquired absence of spleen; Z98.84 Bariatric surgery status; Z91.030 Bee allergy status; Z91.048 Other nonmedicinal substance allergy status; Z98.51 Tubal ligation status; G89.29 Other chronic pain; Z88.6 Allergy status to analgesic agent; Z88.8 Allergy status to other drugs, medicaments and biological substances
CPT/HCPCS: 36415; 74177; 80048; 80053; 81001; 81003; 82150; 83605; 83690; 83735; 85025; 87040; 93005; 94760; 96361; 96374; 96375; 96376; 99285

== ENCOUNTER → 2023-11-25 | Outpatient (CLI) | payer BC, MEDICARE ==
--- NOTE | 2023-12-15 10:40 | PE ---
Patient: Laura Rangel Ordering Physician: Unknown, Unknown ID: [id number] Phone, Pager: Phone: N/A Sidney giancarlo: N/A : 1975 Age/Gender: 48Y, F Primary Location: N/A Procedure: PETCT SKULL TO THIGH Stud y Date: 11/25/2023 2:41:42 PM EXAMINATION TYPE: PET CT fusion skull to thigh DATE OF EXAM: 12/08/2023 CLINICAL INDICATION: Solid pulmonary nodule, possible leukemia diagnosis from blood work. TECHNIQUE: Following the intravenous administration of 11.02 mCi of F-18 FDG, whole body images are performed from the skull base to the midthigh. Images are reviewed on the computer in the coronal, axial, and sagittal planes. Reconstructed rotating images are created on independent workstation and reviewed on the computer. A non-contrast CT is performed in conjunction with the PET scan. Glucose level 89 mg/dL CT DLP: 156 mGycm, Automated exposure control for dose reduction was used. COMPARISON: CT 10/02/2023., PET/CT None, MRI: None FINDINGS: Mediastinal SUV mean is 1.4. Hepatic parenchyma SUV mean is 1.9. SKULL BASE AND NECK: No suspicious radiotracer activity. CHEST, MEDIASTINUM, AND HILAR REGION: * Right upper lung pulmonary nodule with some spiculated margins measuring up to 18 mm Max SUV 15.7. * Right pulmonary hilum lymph node max SUV 4.1, evaluation difficult on CT without contrast for shayla urements. ABDOMEN AND PELVIS: * Indeterminate uptake within the right cecum max SUV 9.3. MUSCULOSKELETAL STRUCTURES: No suspicious radiotracer activity. OTHER CT: Atherosclerosis of the carotid bifurcations. Interstitial lung disease changes. Moderate to severe coronary artery calcifications. Postsurgical changes to the bowel in left upper abdomen. Larg e amount stool in the colon. IMPRESSION: 1. Right upper lobe pulmonary nodule measuring 18 mm with right hilar lymph node both with increased metabolic activity compatible with primary malignancy and metastatic disease. 2. Indeterminate uptake within the cecum, attention on follow-up imaging findings could represent ph ysiologic uptake within the bowel. Consider colonoscopy if not recently performed.
--- NOTE | 2023-12-27 13:21 | CT ---
Site ID synapse default Patient CaseLaura ID [id number] Age/Gender: 48Y, F Order # N/A Procedure CT Chest wo ION protocol Date 12/08/2023 1:13:00 PM EXAMINATION TYPE: CT Chest wo ION protocol DATE OF EXAM: 12/08/2023 COMPARISON: PET/CT 11/25/2023, CTA chest 10/02/2023 HISTORY: Pre bronch, lung nodule CT DLP: 269 mGycm. Automated Exposure Control for Dose Reduction was Utilized. TECHNIQUE: CT scan of the thorax is performed without IV contrast. FINDINGS: LUNGS: Extensive interstitial thickening is identified throughout the lungs. This is most prominent w ithin the upper lobes bilaterally. No pleural effusion or pneumothorax. No significant focal consolid ation. Increased size of spiculated right upper lobe nodule measuring 2.7 x 1.9 cm (series 3, image 5 5). Previously measured 1.[address] 10/02/2023. This is FDG avid on recent PET/CT. There is a linear solid extension towards the pleural surface. The tracheobronchial tree is patent. MEDIASTINUM: Lack of IV contrast is noted to limit evaluation for mediastinal and especially hilar ad enopathy. Few prominent lymph nodes identified with additional enlarged 1.0 cm short axis precarinal lymph node (series 2, and 184). This did not demonstrate FDG avidity on recent PET/CT however there w as an enlarged FDG avid lymph node along the right pulmonary hilum. No cardiomegaly or pericardial ef fusion is seen. Moderate to severe coronary arterial calcification. OTHER: No additional significant abnormality is seen. No aggressive osseous lesion. Postsurgical marzena nges of the stomach from Shar[place]-en-Y gastric bypass. Partial visualization of right renal cyst measurin g up to 1.5 cm. Redemonstration intrahepatic and extrahepatic biliary duct dilatation. Possibly relat ed to postcholecystectomy. Redemonstration of curvilinear calcification within the anterior epigastri c abdominal wall soft tissues. May be sequela of surgical intervention. IMPRESSION: 1. Interval enlargement of spiculated right upper lobe 2.7 cm pulmonary nodule from prior CT 4. This is again highly concerning for primary lung cancer until proven otherwise. 2. Mildly enlarged pretracheal 1.0 cervical lymph node which was not FDG avid on recent PET/CT howeve r there is a nonenlarged FDG avid right pulmonary hilar lymph node identified on recent PET/CT. 3. Extensive interstitial lung disease.
== END | disposition home or self-care (01) ==
LOC: RADPETMAIN 13:01
PROVIDERS: ATTEND Internal Medicine Critical Care Medicine
DX: J84.9 Interstitial pulmonary disease, unspecified (principal); R91.1 Solitary pulmonary nodule
CPT/HCPCS: 78815; A9552

== ENCOUNTER 2023-12-08 14:30 | Day surgery (SDC) | payer BC, MEDICARE, OTHER ==
[~2023-12-08 14:30] MED LIST changes: -ALBUTEROL NEB (CONC) 2.5 MG/0.5 ML INHALATION ONE; +GLYCOPYRROLATE 0.2 MG/ML 2 ML VIAL ONE; +LACTATED RINGERS 1,000 ML BAG ONE; -LACTATED RINGERS 1,000 ML IV SCH; +LIDOCAINE 1% INJ 10MG/ML (20 ML MDV) ONE; -LIDOCAINE 2% (PF) 20 MG/ML 5 ML VIAL INHALATION ONE; -LIDOCAINE VISCOUS 300 MG/15 ML CUP MUCOUS MEM ONE; +METOPROLOL TARTRATE 5 MG/5 ML VIAL IVP ONE; +NEOSTIGMINE 1 MG/ML 10 ML VIAL ONE; +PROPOFOL 10 MG/ML 20 ML VIAL IV ONE; +ROCURONIUM 10 MG/ML (5 ML VIAL) IV ONE; +SUCCINYLCHOLINE CHLORIDE 200 MG/10 ML VIAL IV ONE
--- NOTE | 2024-01-03 16:01 | XR ---
[facility] - Radiology Report Patient: Laura Rangel Ordering Physician: Unknown, Unknown ID: [id number] Phone, Pager: Phone: N/A Pager: N/A : 1975 Age/Gender: 48Y, F Primary Location: N/A Procedure: XR CHEST 1V PORTABLE Study Date: 12/08/2023 3:45:00 PM EXAMINATION TYPE: XR chest 1V DATE OF EXAM: 12/08/2023 HISTORY: Shortness of breath. COMPARISON: 11/08/2023 TECHNIQUE: Single view of the chest is submitted. FINDINGS: Demonstrated are scattered senescent parenchymal change. Right apical infiltrate is seen. Correlate for pneumonia. NG tube has been removed. The heart is stable. Hilar and mediastinal structures are within normal limits. Degenerative changes are seen of the dorsal spine. IMPRESSION: 1. Right apical infiltrate is seen. Correlate for pneumonia.
--- NOTE | 2024-01-05 15:41 | P.PCN ---
Date of Procedure: 12/08/23 Operative Findings: Preoperative Diagnosis: Right upper lobe mass, measuring 2.7 cm in size. Postoperative Diagnosis: Right upper lobe mass Procedure(s) Performed: Flexible bronchoscopy Robotic-assisted bronchoscopy and addition to radial ultrasound evaluation of the right upper lobe mass Robotic-assisted transbronchial transbronchial needle aspirate, transbronchial biopsies and transbronchial brushing endobronchial lavage of the right upper lobe mass Endobronchial ultrasound Transbronchial needle aspirate of station 4R lymph node Anesthesia: SUZANNEA Surgeon: Bharati Truong Estimated Blood Loss (ml): 0 Pathology: other Condition: stable Disposition: same day Operative Findings: A physical exam was performed. Informed consent was obtained from the patient after explaining all the risks (pneumothorax, life threatening bleeding, in fection and adverse effects due to medications), benefits and alternatives to the procedure which the patient appeared to understand and so stated. The patient was connected to the monitoring devices. General anesthesia was induced and the patient was intubated by anesthesia. A final timeout was performed and the procedure confirmed by the attending staff bronchoscopist. The bronchoscope was inserted and the airway examined. Airway examination shows that the distal trachea, Right upper lobe and middle lobe and lower lobe bronchi was all within normal limits. Patient left mainstem bronchus is within normal limits. Examination of left lower lobe was within normal limits. The left upper lobe bronchus and the lingular segment was also patent within normal limits. The flexible bronchoscope was removed and the robotic bronchoscope was inserted. Registration was completed. I next guided the robotic bronchoscope using the navigation system into the right right upper lobe mass. Once in proper position, the bronchoscope was frozen. The radial EBUS probe was placed through the bronchoscope and confirmed abnormal u/s images vs normal lung. A needle was placed through the working channel and another fluoroscopic guidance, we sampled the area in the right lower lobe where the opacity was present. We then used a clot biopsy pattern with ultrasound confirmation for 2 additional passes with the needle. Following that, a forceps were next introduced through working channel and extended the appropriate distance and 3 transbronchial biopsies were performed using fluoroscopic guidance. The u/s probe was then reinserted to confirm location. When confirmed this process was repeated for a total of 8-10 transbronchial biopsies. After reassessment with EBUS, a brush was placed through the extendable working channel for 1 pass with fluoroscopic guidance. U/S evaluation was then used to confirm location. Following that, a total of 40 cc of saline was infused into the right upper lobe and approximately 8 to 10 cc of saline was aspirated and the bronchial lavage was sent for cytologic evaluation. Following that, I am bronchoscope was removed. The endobronchial ultrasound was inserted and a full evaluation of the mediastinal lymph nodes was done. Upon careful investigation with endobronchial ultrasound, a 1.3 cm right paratracheal lymph node was identified at the level of station 4R. Using a 22-gauge position needle, transbronchial needle aspirate of the right paratracheal station 4R lymph node was done and a total of 5 passes was taken without any complications. Endobronchial ultrasound was removed. Noted rest of the midsternal stations showed no significant pathologic mediastinal lymphadenopathy. Flex. bronchoscope was inserted and regular suctioning was done. At the completion of the procedure, no residual secretions or bloody material within the airway. The bronchoscope was removed. The patient was extubated. FINDINGS: 1.The airways appeared normal 2 Successful navigation, ultrasonographic identification, and biopsies of right right upper lobe mass. 3.The the radial ultrasound view was concentric RECOMMENDATIONS: Await pathology and cytology results The referring physician will be alerted to the results when available. The patient was advised to follow up with the referring physician with the biopsy results Patient will be called with results.
--- NOTE | 2024-01-17 18:21 | FL ---
EXAMINATION TYPE: FL bronchoscopy DATE OF EXAM: 12/27/2023 9:01 AM COMPARISON: Pre Operative Images if available both CT/MRI or plain film CLINICAL INDICATION: Female, 48 years old with history of RIGHT UPPER LOBE BX WITH BRONCH; TECHNIQUE: FL bronchoscopy, multiple fluoroscopic images provided for procedure. Total fluoroscopy time: 41.1 seconds Total submitted images to PACS: 1 DAP: 1.0606 mGym2 Gycm2 uGym2 cGycm2 FINDINGS: ION bronchoscopy images demonstrate bronchoscope terminating in the lung. No immediate complications identified, no pneumothorax identified. IMPRESSION: 1. No evidence for intraoperative complication. 2. Please see the operative/procedural note for further details. [facility], , 01/17/2024 6:19 PM
== END 2023-12-08 17:01 ==
LOC: ORWHC2ENDO 14:30
PROVIDERS: ATTEND Internal Medicine Critical Care Medicine
DX: R91.1 Solitary pulmonary nodule
CPT/HCPCS: 31624; 31628; 31629; 71045; 87070; 87102; 87116; 87205; 87206; 88305; 88341; 88342

== ENCOUNTER 2023-12-23 10:25 | Emergency (ER) | payer BC, MEDICARE, OTHER ==
--- NOTE | 2023-12-23 11:09 | CT ---
EXAMINATION TYPE: CT brain wo con DATE OF EXAM: 12/23/2023 COMPARISON: 10/15/2023 HISTORY: Mgraine headache x 7days, Right facial numbness x [address] DLP: 1051.1 mGycm Automated exposure control for dose reduction was used. Findings: The ventricles, basal cisterns and sulci over the convexities are within normal limits and there is n o mass effect or shift of midline structures. No abnormal density is seen throughout the brain parenchyma and there is no acute intra or extra-axia l hemorrhage. The posterior fossa including the brainstem, fourth ventricle and cerebellar pontine angles appear no rmal. Intraorbital contents appear normal and symmetric. There is a persistent mucous retention cyst or polyp in the right maxillary sinus otherwise the paran yvonne sinuses and mastoid air cells are well aerated. The calvarium is intact. IMPRESSION: No significant abnormality seen. There is no acute bleed or mass effect.
[2023-12-23 11:20] LABS: Basophils # (A) 0.1 k/uL (0-0.2); Basophils % (A) 1 %; Eosinophils # (A) 0.6 k/uL (0-0.7); Eosinophils % (A) 4 %; HGB 13.9 gm/dL (11.4-16.0); Hypochromasia Slight; Lymphocytes # (A) 2.2 k/uL (1.0-4.8); Lymphocytes % (A) 16 %; MCH 31.8 pg (25.0-35.0); MCHC 31.6 g/dL (31.0-37.0); Monocytes # (A) 0.8 k/uL (0-1.0); Monocytes % (A) 6 %; Neutrophils # (A) 9.6 k/uL (1.3-7.7); Neutrophils % (A) 71 %; Platelet Count 601 k/uL (150-450); RBC 4.38 m/uL (3.80-5.40); RDW 14.1 % (11.5-15.5); WBC 13.4 k/uL (3.8-10.6)
[2023-12-23 11:26] LABS: MCV 100.6 fL (80.0-100.0)
[2023-12-23 11:32] LABS: ALT 31 U/L (4-34); African American GFR (CKD) >90 (>60 ml/min/1.73 sqM); Anion Gap 7 mmol/L; Blood Urea Nitrogen 11 mg/dL (7-17); Calcium 9.4 mg/dL (8.4-10.2); Carbon Dioxide 27 mmol/L (22-30); Chloride 105 mmol/L (98-107); Creatine Kinase 42 U/L (30-135); Non-African American GFR(CKD) >90 (>60 ml/min/1.73 sqM); Sodium 139 mmol/L (137-145); Total Bilirubin 0.6 mg/dL (0.2-1.3)
[2023-12-23 11:38] LABS: AST 66 U/L (14-36); Albumin 3.9 g/dL (3.5-5.0); Alkaline Phosphatase 146 U/L (38-126); Glucose 49 mg/dL (74-99); Potassium 4.5 mmol/L (3.5-5.1); Total Protein 7.1 g/dL (6.3-8.2)
[2023-12-23] MEDS: SODIUM CHLORIDE 0.9% 1,000 ML IV STA (12:24)
[2023-12-23] MEDS: DEXTROSE 50% SYRINGE 50 ML IVP STA (12:24)
[2023-12-23] MEDS: ONDANSETRON 4 MG/2 ML VIAL IVP STA (12:31)
[2023-12-23] MEDS: MORPHINE SULFATE 2 MG/ML SYRINGE IVP STA (12:35)
[2023-12-23] MEDS: DEXAMETHASONE SOD PHOSPHATE 10 MG/ML 1 ML VIAL IVP STA (12:41)
[2023-12-23 13:20] LABS: INR 0.9 (<1.2); Partial Thromboplastin Time 29.7 sec (22.0-30.0); Prothrombin Time 10.4 sec (10.0-12.5)
--- NOTE | 2023-12-23 13:56 | XR ---
EXAMINATION TYPE: XR chest 2V DATE OF EXAM: 12/23/2023 COMPARISON: 12/08/2023 TECHNIQUE: PA and lateral views submitted. HISTORY: Altered mental status FINDINGS: Improved aeration in the right lung base with a persistent density. Mass is not excluded. COPD change s of pulmonary fibrosis. Diffuse osteopenia. Atherosclerotic change aorta. Surgical clips involving t he abdomen. Degenerative changes of the spine. IMPRESSION: 1. Right upper lobe pulmonary mass suspicious for malignancy. 2. COPD and pulmonary fibrosis
--- NOTE | 2023-12-23 14:16 | ED ---
General Adult HPI - General Chief complaint: Neuro Symptoms/Deficit Stated complaint: R sided facial numbness Time Seen by Provider: 12/23/23 11:13 Source: patient Limitations: no limitations - History of Present Illness Initial comments: 48-year-old female presenting with chief complaint of migraine. Migraine has been ongoing for about a week. About 3 days ago she started experiencing right sided facial pain. Patient has not having any weakness. She denies any injury or trauma. No vision or hearing changes. No chest pain, difficulty breathing, abdominal pain, nausea, vomiting. - Related Data Home Medications Medication Instructions Recorded Confirmed Levothyroxine Sodium [Synthroid] 50 mcg PO DAILY 01/05/14 12/23/23 Pantoprazole Sodium [Protonix] 40 mg PO DAILY 05/28/18 12/23/23 Cyclobenzaprine [Flexeril] 10 mg PO BID 10/29/20 12/23/23 Atogepant [Qulipta] 60 mg PO DAILY 08/21/21 12/23/23 Ofatumumab [Kesimpta Pen] 20 mg SQ Q30D 02/12/22 12/23/23 HYDROcodone/APAP 10-325MG [[place] 1 tab PO QID PRN 02/19/22 12/23/23 10-325] Albuterol Sulfate [Albuterol 2 puff INHALATION RT-Q6H PRN 02/19/23 12/23/23 Sulfate Hfa] Gabapentin [Neurontin] 400 mg PO TID PRN 02/19/23 12/23/23 Albuterol Nebulized [Ventolin 2.5 mg INHALATION RT-QID PRN 08/21/23 12/23/23 Nebulized] Cholecalciferol [Vitamin D3 (25 75 mcg PO DAILY 08/21/23 12/23/23 Mcg = 1000 Iu)] Famotidine [Pepcid] 20 mg PO HS 08/21/23 12/23/23 Fluticasone/Umeclidin/Vilanter 1 puff INHALATION RT-DAILY PRN 08/21/23 12/23/23 [Trelegy Ellipta 100-62.5-25] Ginkgo Biloba [place] Extract [Ginkgo 125 mg PO DAILY 08/21/23 12/23/23 Biloba] Pravastatin Sodium [Pravachol] 40 mg PO HS 08/21/23 12/23/23 Sertraline [Zoloft] 50 mg PO DAILY 08/21/23 12/23/23 Vitamin A 2,400 mcg PO DAILY 08/21/23 12/23/23 ALPRAZolam [Xanax] 1 mg PO DAILY PRN 11/07/23 12/23/23 Calcium Carbonate [Calcium] 600 mg PO BID 11/07/23 12/23/23 Cetirizine HCl [Zyrtec] 10 mg PO DAILY 11/07/23 12/23/23 L.acidoph,Paracasei, B.lactis 1 cap PO DAILY 11/07/23 12/23/23 [Probiotic] Ondansetron Odt [Zofran Odt] 4 mg PO Q12HR PRN 11/07/23 12/23/23 valACYclovir HCL [Valtrex] 1,000 mg PO DAILY PRN 11/07/23 12/23/23 Allergies Allergy/AdvReac Type Severity Reaction Status Date / Time bee venom protein (honey bee) Allergy SWELLING , Verified 12/23/23 15:53 AND ITCHING Bleach (Sodium Hypochlorite) Allergy Rash/Hives Verified 12/23/23 15:53 nitrofurantoin Allergy Rash/Hives Verified 12/23/23 15:53 [From Macrobid] nitrofurantoin Allergy Rash/Hives Verified 12/23/23 15:53 macrocrystalline [From Macrobid] moxifloxacin [From Avelox] AdvReac Nausea & Verified 12/23/23 15:53 Vomiting NSAIDS (Non-Steroidal AdvReac Had Verified 12/23/23 15:53 Anti-Inflamma gastric sleeve surgery, causes bleeds. seasonal allergies Allergy congestion Uncoded 12/23/23 15:53 and sneezing Review of Systems ROS Statement: Those systems with pertinent positive or pertinent negative responses have been documented in the HPI. ROS Other: All systems not noted in ROS Statement are negative. Past Medical History Past Medical History: Asthma, Cancer, COPD, CVA/TIA, GERD/Reflux, Hypertension, Musculoskeletal Disorder, Neurologic Disorder, Sleep Apnea/CPAP/BIPAP, Thyroid Disorder Additional Past Medical History / Comment(s): smoking-related interstitial lung disease, doesn't use CPAP, history of seizure at the age of 16 related to med. to stop breast milk, endometriosis, chronic back pain, plantar fasciitis, hx. of Achilles tendinitis, probably antibiotic induced. She also has history of hypothyroidism, ALLERGIC rhinitis, migraines, uses oxygen 2L prn, recent iron infusion, MS , tia 2020 no residual issues, needs cholecystetomy, tinnitus, balance issues,. Dx. w/ leukemia, 10/2023 History of Any Multi-Drug Resistant Organisms: None Reported Past Surgical History: Bariatric Surgery, Cholecystectomy, Hysterectomy, Tubal Ligation, Uterine Ablation Additional Past Surgical History / Comment(s): LEEP PROCEDURE X 2, EGD, BACK INJECTIONS FOR PAIN. The patient has also undergone thoracic/thoracoscopic wedge biopsy of the right lung. 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; R and Y bypass at [facility] 2019,TRACHEOTOMY-RESOLVED Past Anesthesia/Blood Transfusion Reactions: Motion Sickness Additional Past Anesthesia/Blood Transfusion Reaction / Comment(s): no problem w /blood transfusion Past Psychological History: Anxiety, Depression Smoking Status: Current every day smoker Past Alcohol Use History: None Reported Past Drug Use History: None Reported - Past Family History Sister(s) Family Medical History: Cancer Mother Family Medical History: Cancer Additional Family Medical History / Comment(s): breast cancer Father Family Medical History: COPD, CVA/TIA, Myocardial Infarction ([place]) Additional Family Medical History / Comment(s): HEART PROBLEMS, AT AGE 64 General Exam Limitations: no limitations General appearance: alert, in no apparent distress Head exam: Present: atraumatic, normocephalic, normal inspection Eye exam: Present: normal appearance, PERRL, EOMI Pupils: Present: normal accommodation Neck exam: Present: normal inspection. Absent: meningismus Respiratory exam: Present: normal lung sounds bilaterally. Absent: respiratory distress, wheezes, rales, rhonchi, stridor Cardiovascular Exam: Present: regular rate, normal rhythm, normal heart sounds. Absent: systolic murmur, diastolic murmur, rubs, gallop, clicks Extremities exam: Present: normal inspection, full ROM Neurological exam: Present: alert, oriented X3 Expanded Patient oriented to: Present: person, place, time Speech: Present: fluid speech Cranial nerves: EOM's Intact: Normal Motor strength exam: RUE: 5, LUE: 5, RLE: 5, LLE: 5 Eye Response: (4) open spontaneously Motor Response: (6) obeys commands Verbal Response: (5) oriented [place] Total: 15 Psychiatric exam: Present: normal affect, normal mood Skin exam: Present: warm, dry Course Vital Signs 12/23/23 12/23/23 12/23/23 10:26 11:30 12:00 Temperature 97.7 F 98.1 F Pulse Rate 105 H 78 78 Respiratory 18 16 16 Rate Blood Pressure 145/84 131/86 149/81 O2 Sat by Pulse 99 100 99 Oximetry 12/23/23 15:30 Temperature 98.5 F Pulse Rate 107 H Respiratory 17 Rate Blood Pressure 165/95 O2 Sat by Pulse 99 Oximetry Medical Decision Making - Medical Decision Making Was pt. sent in by a medical professional or institution (, PA, FLIGHT SECURITY SPECIALIST, urgent care, hospital, or retirement...) When possible be specific @ -No Did you speak to anyone other than the patient for history (EMS, parent, family, police, friend...)? What history was obtained from this source @ -No Did you review nursing and triage notes (agree or disagree)? Why? @ -I reviewed and agree with nursing and triage notes Were old charts reviewed (outside hosp., previous admission, EMS record, old EKG, old radiological studies, urgent care reports/EKG's, retirement records)? Report findings @ -No old charts were reviewed Differential Diagnosis (chest pain, altered mental status, abdominal pain women, abdominal pain men, vaginal bleeding, weakness, fever, dyspnea, syncope, headache, dizziness, GI bleed, back pain, seizure, CVA, palpatations, mental health, musculoskeletal)? @ -MDM Differential Headache: Migraine, tension, cluster, carbon monoxide, central venous thrombosis, pension karma temporal arteritis, acute closure glaucoma, intercranial hemorrhage, mastoiditis, sinusitis, head injury this is not meant to be an all-inclusive list. EKG interpreted by me (3pts min.). @ -EKG shows sinus rhythm ventricular rate 99. MI interval 138. QRS 88. QT 344. QTc 400. X-rays interpreted by me (1pt min.). @ -Chest x-ray shows right upper lobe pulmonary mass suspicious for malignancy. COPD and pulmonary fibrosis. CT interpreted by me (1pt min.). @ -CT shows no significant abnormality. No acute bleed or mass effect U/S interpreted by me (1pt. min.). @ -None done What testing was considered but not performed or refused? (CT, X-rays, U/S, labs)? Why? @ -None What meds were considered but not given or refused? Why? @ -None Did you discuss the management of the patient with other professionals (professionals i.e. Dr., PA, FLIGHT SECURITY SPECIALIST, lab, RT, psych nurse, professor of social work, head charger, teacher, protocol officer, dependency case manager)? Give summary @ -No Was smoking cessation discussed for >3mins.? @ -No Was critical care preformed (if so, how long)? @ -No Were there social determinants of health that impacted care today? How? (Homelessness, low income, unemployed, alcoholism, drug addiction, transportation, low edu. Level, literacy, decrease access to med. care, group home, rehab)? @ -No Was there de-escalation of care discussed even if they declined (Discuss DNR or withdrawal of care, Hospice)? DNR status @ -No What co-morbidities impacted this encounter? (DM, HTN, Smoking, COPD, CAD, Cancer, CVA, ARF, Chemo, Hep., AIDS, mental health diagnosis, sleep apnea, morbid obesity)? @ -Leukemia, lung cancer Was patient admitted / discharged? Hospital course, mention meds given and route, prescriptions, significant lab abnormalities, going to OR and other pertinent info. @ -48-year-old female with history of leukemia and lung cancer presenting with chief complaint of migraine as well as facial numbness. History and physical exam are conducted. CT is negative for acute intracranial process. Chest x-ray shows right upper lung mass suspicious for malignancy. Patient is aware of this mass and is following with Dr. Truong. Patient's initial glucose was 49. After food and D50 recheck was 63. Given that she failed to have any substantial rise in glucose I recommended that we keep her for observation. She was started on D5 normal saline. Patient does not want to stay. I expressed the patient that we are concerned that her blood sugar may drop at home, without proper observation and intervention this can result in or permanent injury. Patient verbalizes understanding and continues to request discharge. She signed out AMA. I discussed this case with my attending Dr. Rivas Undiagnosed new problem with uncertain prognosis? @ -No Drug Therapy requiring intensive monitoring for toxicity (Heparin, Nitro, Insulin, Cardizem)? @ -No Were any procedures done? @ -No Diagnosis/symptom? @ -Hypoglycemia, migraine Acute, or Chronic, or Acute on Chronic? @ -Acute Uncomplicated (without systemic symptoms) or Complicated (systemic symptoms)? @ -Uncomplicated Side effects of treatment? @ -No Exacerbation, Progression, or Severe Exacerbation? @ -No Poses a threat to life or bodily function? How? (Chest pain, [place], [place], pneumonia, PE, COPD, DKA, ARF, appy, cholecystitis, CVA, Diverticulitis, Homicidal, Suicidal, threat to staff... and all critical care pts) @ -Yes, hypoglycemia may result in coma or if not properly treated - Lab Data Result diagrams: 12/23/23 11:04 12/23/23 11:04 Lab Results 12/23/23 12/23/23 12/23/23 Range/Units 11:04 11:04 11:04 WBC 13.4 H (3.8-10.6) k/uL RBC 4.38 (3.80-5.40) m/uL Hgb 13.9 (11.4-16.0) gm/dL Hct 44.0 (34.0-46.0) % MCV 100.6 H D (80.0-100.0) fL MCH 31.8 (25.0-35.0) pg MCHC 31.6 (31.0-37.0) g/dL RDW 14.1 (11.5-15.5) % Plt Count 601 H (150-450) k/uL MPV 7.0 Neutrophils % 71 % Lymphocytes % 16 % Monocytes % 6 % Eosinophils % 4 % Basophils % 1 % Neutrophils # 9.6 H (1.3-7.7) k/uL Lymphocytes # 2.2 (1.0-4.8) k/uL Monocytes # 0.8 (0-1.0) k/uL Eosinophils # 0.6 (0-0.7) k/uL Basophils # 0.1 (0-0.2) k/uL Hypochromasia Slight PT (10.0-12.5) sec INR (<1.2) APTT (22.0-30.0) sec Sodium 139 (137-145) mmol/L Potassium 4.5 (3.5-5.1) mmol/L Chloride 105 (98-107) mmol/L Carbon Dioxide 27 (22-30) mmol/L Anion Gap 7 mmol/L BUN 11 (7-17) mg/dL Creatinine 0.49 L (0.52-1.04) mg/dL Est GFR (CKD-EPI)AfAm >90 (>60 ml/min/1.73 sqM) Est GFR (CKD-EPI)NonAf >90 (>60 ml/min/1.73 sqM) Glucose 49 L* (74-99) mg/dL POC Glucose (mg/dL) (70-110) mg/dL POC Glu Design Printing Machine Set Up Operator ID Calcium 9.4 (8.4-10.2) mg/dL Total Bilirubin 0.6 (0.2-1.3) mg/dL AST 66 H (14-36) U/L ALT 31 (4-34) U/L Alkaline Phosphatase 146 H (38-126) U/L Creatine Kinase 42 (30-135) U/L Troponin I <0.012 (0.000-0.034) ng/mL Total Protein 7.1 (6.3-8.2) g/dL Albumin 3.9 (3.5-5.0) g/dL 12/23/23 12/23/23 12/23/23 Range/Units 12:05 14:19 15:35 WBC (3.8-10.6) k/uL RBC (3.80-5.40) m/uL Hgb (11.4-16.0) gm/dL Hct (34.0-46.0) % MCV (80.0-100.0) fL MCH (25.0-35.0) pg MCHC (31.0-37.0) g/dL RDW (11.5-15.5) % Plt Count (150-450) k/uL MPV Neutrophils % % Lymphocytes % % Monocytes % % Eosinophils % % Basophils % % Neutrophils # (1.3-7.7) k/uL Lymphocytes # (1.0-4.8) k/uL Monocytes # (0-1.0) k/uL Eosinophils # (0-0.7) k/uL Basophils # (0-0.2) k/uL Hypochromasia PT 10.4 (10.0-12.5) sec INR 0.9 (<1.2) APTT 29.7 (22.0-30.0) sec Sodium (137-145) mmol/L Potassium (3.5-5.1) mmol/L Chloride (98-107) mmol/L Carbon Dioxide (22-30) mmol/L Anion Gap mmol/L BUN (7-17) mg/dL Creatinine (0.52-1.04) mg/dL Est GFR (CKD-EPI)AfAm (>60 ml/min/1.73 sqM) Est GFR (CKD-EPI)NonAf (>60 ml/min/1.73 sqM) Glucose (74-99) mg/dL POC Glucose (mg/dL) 63 L 135 H (70-110) mg/dL POC Glu Design Printing Machine Set Up Operator ID Melanie Santamaria Amber Calcium (8.4-10.2) mg/dL Total Bilirubin (0.2-1.3) mg/dL AST (14-36) U/L ALT (4-34) U/L Alkaline Phosphatase (38-126) U/L Creatine Kinase (30-135) U/L Troponin I (0.000-0.034) ng/mL Total Protein (6.3-8.2) g/dL Albumin (3.5-5.0) g/dL 12/23/23 Range/Units 15:37 WBC (3.8-10.6) k/uL RBC (3.80-5.40) m/uL Hgb (11.4-16.0) gm/dL Hct (34.0-46.0) % MCV (80.0-100.0) fL MCH (25.0-35.0) pg MCHC (31.0-37.0) g/dL RDW (11.5-15.5) % Plt Count (150-450) k/uL MPV Neutrophils % % Lymphocytes % % Monocytes % % Eosinophils % % Basophils % % Neutrophils # (1.3-7.7) k/uL Lymphocytes # (1.0-4.8) k/uL Monocytes # (0-1.0) k/uL Eosinophils # (0-0.7) k/uL Basophils # (0-0.2) k/uL Hypochromasia PT (10.0-12.5) sec INR (<1.2) APTT (22.0-30.0) sec Sodium (137-145) mmol/L Potassium (3.5-5.1) mmol/L Chloride (98-107) mmol/L Carbon Dioxide (22-30) mmol/L Anion Gap mmol/L BUN (7-17) mg/dL Creatinine (0.52-1.04) mg/dL Est GFR (CKD-EPI)AfAm (>60 ml/min/1.73 sqM) Est GFR (CKD-EPI)NonAf (>60 ml/min/1.73 sqM) Glucose (74-99) mg/dL POC Glucose (mg/dL) 142 H (70-110) mg/dL POC Glu Design Printing Machine Set Up Operator Morelia Wyatt Calcium (8.4-10.2) mg/dL Total Bilirubin (0.2-1.3) mg/dL AST (14-36) U/L ALT (4-34) U/L Alkaline Phosphatase (38-126) U/L Creatine Kinase (30-135) U/L Troponin I (0.000-0.034) ng/mL Total Protein (6.3-8.2) g/dL Albumin (3.5-5.0) g/dL Disposition Clinical Impression: Hypoglycemia Disposition: LEFT AGAINST MEDICAL ADVICE Condition: Fair Instructions (If sedation given, give patient instructions): Non-diabetic Hypoglycemia (ED) Additional Instructions: Follow-up with your PCP and report back to ER with any new or worsening symptoms Is patient prescribed a controlled substance at d/c from ED?: No Referrals: Keven Kebede MD [Primary Care Provider] - 1-2 days Time of Disposition: 16:38
[2023-12-23 14:20] LABS: Glucose,Whole Blood 63 mg/dL (70-110)
[2023-12-23] MEDS: DEXTROSE 5%-0.9% NACL 1,000 ML IV SCH (15:31)
[2023-12-23 15:37] LABS: Glucose,Whole Blood 135 mg/dL (70-110)
[2023-12-23 15:39] LABS: Glucose,Whole Blood 142 mg/dL (70-110)
[2023-12-23 16:05] VITALS: BP 165/95; PULSE 107; RESP 17; TEMP 98.5
== END 2023-12-23 16:45 | disposition left against medical advice (07) ==
LOC: EC 10:25
DX: R29.810 Facial weakness
CPT/HCPCS: 36415; 70450; 71046; 80053; 82550; 84484; 85025; 85610; 85730; 93005; 96361; 96374; 96375; 99285

== ENCOUNTER → 2024-01-18 | Outpatient (CLI) | payer BC, MEDICARE, OTHER ==
[2024-01-18 11:34] LABS: INR 0.9 (<1.2); Partial Thromboplastin Time 25.9 sec (22.0-30.0); Prothrombin Time 10.3 sec (10.0-12.5)
[2024-01-18 16:40] LABS: Basophils # (A) 0.15 X 10*3/uL (0.00-0.10); Basophils % (A) 0.9 %; Eosinophils # (A) 0.66 X 10*3/uL (0.04-0.35); Eosinophils % (A) 3.9 %; HCT 42.4 % (37.2-46.3); HGB 13.8 g/dL (12.0-15.0); Lymphocytes # (A) 3.81 X 10*3/uL (0.90-5.00); Lymphocytes % (A) 22.5 %; MCH 32.2 pg (27.0-32.0); MCHC 32.5 g/dL (32.0-37.0); MCV 99.1 FL (80.0-97.0); Mean Platelet Volume 9.3 FL (9.5-12.2); Monocytes # (A) 2.11 X 10*3/uL (0.20-1.00); Monocytes % (A) 12.5 %; NRBC Per 100 WBC 0 X 10*3/uL (0.00-0.01); Neutrophils # (A) 9.98 X 10*3/uL (1.80-7.70); Platelet Count 566 X 10*3/uL (140-440); RBC 4.28 X 10*6/uL (4.10-5.20); RDW 14.7 % (11.5-14.5); WBC 16.92 X 10*3/uL (4.50-10.00)
[2024-01-18 16:53] LABS: Blood Urea Nitrogen 14.6 mg/dL (9.0-27.0)
[2024-01-18 16:54] LABS: Carbon Dioxide 26.8 mmol/L (21.6-31.8); Chloride 104 mmol/L (96-109); Potassium 4.5 mmol/L (3.5-5.5); Sodium 141 mmol/L (135-145)
[2024-01-18 20:54] LABS: Appearance,Urine Clear (Clear); Bilirubin,Urine Negative (Negative); Blood,Urine Negative (Negative); Color,Urine Orange (Yellow); Ketones,Urine Negative (Negative); Nitrite,Urine Positive (Negative); Specific Gravity,Urine 1.007 (1.001-1.030)
[2024-01-18 21:45] LABS: Bacteria,Urine None Seen (None Seen)
== END | disposition home or self-care (01) ==
LOC: LABPAT 10:17
PROVIDERS: ATTEND Thoracic Surgery (Cardiothoracic Vascular Surgery)
DX: Z01.818 Encounter for other preprocedural examination
CPT/HCPCS: 80051; 81001; 82565; 84520; 85025; 85610; 85730; 86850; 86900; 86901; 87086; 93005

== ENCOUNTER 2024-01-26 05:34 | Inpatient (IN) | payer BC, MEDICARE ==
[~2024-01-26 05:34] MED LIST changes: -GLYCOPYRROLATE 0.2 MG/ML 2 ML VIAL ONE; +HYDROmorphone 0.5 MG/0.5 ML SYRINGE IVP PRN; -LACTATED RINGERS 1,000 ML BAG ONE; -LIDOCAINE 1% INJ 10MG/ML (20 ML MDV) ONE; -METOPROLOL TARTRATE 5 MG/5 ML VIAL IVP ONE; -NEOSTIGMINE 1 MG/ML 10 ML VIAL ONE; -PROPOFOL 10 MG/ML 20 ML VIAL IV ONE; -ROCURONIUM 10 MG/ML (5 ML VIAL) IV ONE; -SUCCINYLCHOLINE CHLORIDE 200 MG/10 ML VIAL IV ONE; +fentaNYL (PF) 50 MCG/ML 2 ML AMP IV PRN
[2024-01-26] MEDS: LACTATED RINGERS 1,000 ML IV ONE ×4 (06:18→06:19)
[2024-01-26] MEDS: LACTATED RINGERS 1,000 ML IV SCH (06:32)
[2024-01-26] MEDS: MIDAZOLAM 2 MG/2 ML VIAL IV ONE (06:41)
[2024-01-26 06:46] LABS: Glucose,Whole Blood 103 mg/dL (70-110)
[2024-01-26] MEDS: ONDANSETRON 4 MG/2 ML VIAL IVP STA (07:04)
[2024-01-26] MEDS: DEXAMETHASONE SOD PHOSPHATE 4 MG/ML 1 ML VIAL IVP STA (07:04)
[2024-01-26] MEDS ORDERED: SODIUM CHLORIDE 0.9% (PF) 10 ML VIAL ONE (07:31)
[2024-01-26] MEDS ORDERED: ACETAMINOPHEN IV (For NPO) 1,000 MG/100 ML VIAL ONE (07:31)
[2024-01-26] MEDS ORDERED: MIDAZOLAM 2 MG/2 ML VIAL ONE (07:31)
[2024-01-26] MEDS ORDERED: fentaNYL (PF) 50 MCG/ML 2 ML AMP ONE (07:31)
[2024-01-26] MEDS ORDERED: HYDROmorphone (PF) 1 MG/ML ONE (07:31)
[2024-01-26] MEDS ORDERED: ALBUTEROL HFA INHALER INHALATION ONE (07:31)
[2024-01-26] MEDS ORDERED: NEOSTIGMINE 1 MG/ML 10 ML VIAL ONE (07:31)
[2024-01-26] MEDS ORDERED: GLYCOPYRROLATE 0.2 MG/ML 2 ML VIAL ONE (07:31)
[2024-01-26] MEDS ORDERED: ROPIVACAINE 5 MG/ML 30 ML VIAL ONE (07:31)
[2024-01-26] MEDS ORDERED: DEXAMETHASONE SOD PHOSPHATE 4 MG/ML 1 ML VIAL ONE (07:31)
[2024-01-26] MEDS ORDERED: LIDOCAINE 1% INJ 10MG/ML (20 ML MDV) ONE (07:31)
[2024-01-26] MEDS ORDERED: ROCURONIUM 10 MG/ML (5 ML VIAL) IV ONE (07:31)
[2024-01-26] MEDS ORDERED: KETAMINE HCL IN 0.9 % NACL 50 MG/5 ML SYRINGE ONE (07:31)
[2024-01-26] MEDS ORDERED: PROPOFOL 10 MG/ML 20 ML VIAL IV ONE (07:31)
[2024-01-26] MEDS: BUPIVACAINE (PF) 0.5% 30 ML VIAL SQ ONE ×2 (08:18)
[2024-01-26] MEDS: hydrALAZINE HCL 20 MG/ML 1 ML VIAL IVP STA (11:42)
--- NOTE | 2024-01-26 11:48 | XR ---
EXAMINATION TYPE: XR chest 1V portable DATE OF EXAM: 01/26/2024 HISTORY: Status post lobectomy COMPARISON: 12/23/2023 TECHNIQUE: Single view of the chest is submitted. FINDINGS: Postlumpectomy changes right upper lobe with chest tube in place and pneumothorax seen. Interstitial prominence is noted throughout both lung jamil with slight progression suggested. Early for atypical pneumonia. The heart is stable. Hilar and mediastinal structures are within normal limits. Degenerative changes are seen of the dorsal spine. IMPRESSION: 1. Postlumpectomy changes right upper lobe with chest tube in place and pneumothorax seen. Interstit ial prominence is noted throughout both lung jamil with slight progression suggested. Early for atyp ical pneumonia. [facility], , 01/26/2024 11:46 AM
--- NOTE | 2024-01-26 11:59 | P.OP ---
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 She was recently noted to have a new right upper lobe mass. She has a distant history of thoracoscopic biopsy of the right upper lobe mass the results of which are unknown. She underwent workup for the current mass which was biopsy-proven to be squamous cell carcinoma. PET/CT and brain MRI were negative for metastasis except for some slight uptake in the right hilum. This was not associated with any lymphadenopathy. At the time of EBUS no abnormal nodes were noted and nothing was biopsied. Patient was referred for lobectomy so we could assure good lymph node dissection for this question of hilar lymph danica involvement. Operative Findings: There were multiple anthracotic lymph nodes but no obvious carcinogenic metastatic lymph nodes present. Fissures were incomplete. There was severe adhesive disease in the left pleural space. Description of Procedure: Patient was brought to the operating room and placed supine on the operating table. Double-lumen endotracheal tube was placed and positioned with fiberoptic bronchoscopy and secured. Patient was turned in the left lateral decubitus position and appropriately positioned for robotic lobectomy. The right chest was sterilely prepped and draped. Initial incision was made in the posterior axillary line in the eighth interspace and a 12 mm port was placed after assuring free pleural space by dissecting down to the pleura. Video thoracoscope was introduced and diffuse adhesions were present however we were able to place a 5 mm port in the eighth interspace anterior to the initial port and a second 12 mm port in the same interspace anterior to that. We were also able to place an 8 mm port superiorly and posteriorly and place a working port anteriorly at the level of the diaphragm. We took down a portion of the adhesions with electrocautery through the working port prior to placing any instruments other than the scope through the robotic ports. We then docked the robot and placed the instruments in place and took down the remainder of the adhesions robotically. We then freed adhesions in the fissures. The greater fissure was mostly complete but the lesser fissure was only minimally complete. We then took down the inferior pulmonary ligament and dissected out the R9, R8 and level 7 lymph nodes sending these for permanent section. Dissection was c arried up onto the bronchus intermedius and the takeoff of the upper lobe bronchus was clearly defined. As we dissected between the bronchus intermedius and the upper lobe bronchus we encountered some R11 lymph nodes which were resected. We then found a large branch of the pulmonary artery which bifurcated. We were able to encircle this and ligated and divided with a robotic vascular stapler. We were then able to completely encircle the right upper lobe bronchus and ligated and divided it with a green robotic stapler. Further lymph node dissection that could not be performed in the hilum and these were sent as R11 lymph nodes. The more anterior branch of the pulmonary artery was now dissected out and ligated and divided with a robotic vascular stapler. Further R11 lymph nodes were now resected. At this point we moved anteriorly. The superior pulmonary venous branches were dissected out and the branches draining the upper lobe were ligated and divided with 2 firings of the robotic vascular stapler, sparing the middle lobe branches. Dissection deeper into the hilum revealed 1 remaining branch of the pulmonary artery which was ligated and divided with a robotic vascular stapler. This completed the hilar dissection for the upper lobe and the upper lobe was from the middle and lower lobes with multiple firings of a robotic 45 mm blue stapler. Once the lobe was completely freed it was placed in an Endo Catch bag and retracted inferiorly in the chest. R10 and R4 lymph nodes were now dissected out and sent for permanent section. The robot was now undocked and the lobectomy specimen removed in the bag by enlarging the working port site. This was then sent for frozen section of the bronchial margin. Chest was irrigated with warm water. There was no significant air leak noted on ventilating the lung under water. Water was suctioned free and a 28 [place] Islander chest tube was placed through separate stab anterior incision and positioned posterior apically and secured with 0 Ethibond. It was connected to a Pleur-evac. The lung was inflated under thoracoscopic visualization and the thoracoscope and its port were removed. Incisions were closed with layers of Vicryl suture. Posterior rib blocks were performed with half percent Marcaine. Dry sterile dressings were applied the patient was turned supine extubated and transferred to recovery in stable condition. Frozen section of the bronchial margin did return negative.
[2024-01-26] MEDS: HYDROmorphone 0.5 MG/0.5 ML SYRINGE IVP STA (12:06)
[2024-01-26] MEDS: HYDROmorphone 0.5 MG/0.5 ML SYRINGE IVP ONE (12:10)
[2024-01-26] MEDS ORDERED: bisacodyL 10 MG SUPP RECTAL PRN (14:47)
[2024-01-26] MEDS ORDERED: IPRATROPIUM-ALBUTEROL 3 ML NEB IH PRN (14:47)
[2024-01-26] MEDS ORDERED: ONDANSETRON 4 MG/2 ML VIAL IVP PRN (14:47)
[2024-01-26] MEDS ORDERED: METOCLOPRAMIDE 5 MG/ML 2 ML VIAL IVP PRN (14:47)
--- NOTE | 2024-01-26 14:53 | P.CNPUL ---
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 She was brought in today electively for a robotic assisted thoracoscopic right upper lobectomy with lysis of adhesions and mediastinal lymph node dissection. She is seen in consultation in the recovery room. She is currently awake. Maintaining good O2 saturations in the 90s on 2 L/min per nasal cannula. She has normal saline at 75 mL/h. Right sided chest tube remains in place to Pleur-evac. Chest x-ray reveals evidence of a postoperative changes. Glucose 103. Review of Systems REVIEW OF SYSTEMS: CONSTITUTIONAL: Denies any recent significant weight loss or weight gain. EYES: Denies change in vision. EARS, NOSE, MOUTH, THROAT: Denies headaches, denies sore throat. CARDIOVASCULAR: Denies chest pain, palpitations or syncopal episodes. RESPIRATORY: Denies shortness of breath, cough, congestion or hemoptysis. GASTROINTESTINAL: Denies change in appetite, denies abdominal pain GENITOURINARY: Denies hematuria, denies infections. MUSKULOSKELETAL: Denies pain, denies swelling. INTEGUMENTARY: Denies rash, denies eczema. NEUROLOGICAL: Denies recent memory loss, no recent seizure activity. PSYCHIATRIC: Denies anxiety, denies depression. HEMATOLOGIC/LYMPHATIC: Denies anemia, denies enlarged lymph nodes. Past Medical History Past Medical History: Asthma, Cancer, COPD, CVA/TIA, GERD/Reflux, Hypertension, Musculoskeletal Disorder, Neurologic Disorder, Sleep Apnea/CPAP/BIPAP, Thyroid Disorder Additional Past Medical History / Comment(s): smoking-related interstitial lung disease, doesn't use CPAP, history of seizure at the age of 16 related to med. to stop breast milk, endometriosis, chronic back pain, plantar fasciitis, hx. of Achilles tendinitis, probably antibiotic induced. She also has history of hypothyroidism, ALLERGIC rhinitis, migraines, uses oxygen 2L prn, recent iron infusion, MS , tia 2020 no residual issues, needs cholecystetomy, tinnitus, balance issues,. Dx. w/ leukemia, 10/2023 History of Any Multi-Drug Resistant Organisms: None Reported Past Surgical History: Bariatric Surgery, Cholecystectomy, Hysterectomy, Tubal Ligation, Uterine Ablation Additional Past Surgical History / Comment(s): LEEP PROCEDURE X 2, EGD, BACK INJECTIONS FOR PAIN. The patient has also undergone thoracic/thoracoscopic wedge biopsy of the right lung. 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; R and Y bypass at [facility] 2019,TRACHEOTOMY-RESOLVED Past Anesthesia/Blood Transfusion Reactions: Motion Sickness Additional Past Anesthesia/Blood Transfusion Reaction / Comment(s): no problem w/blood transfusion Smoking Status: Current every day smoker Additional Past Alcohol Use History / Comment(s): STARTED SMOKING AT AGE 14 - STOPPED SMOKING on November 23, 2017. (Heaviest smoking amount was 3/4 pack/day). Pt started smoking again 2020 - Past Family History Sister(s) Family Medical History: Cancer Additional Family Medical History / Comment(s): ovarian Mother Family Medical History: Cancer Additional Family Medical History / Comment(s): breast cancer Father Family Medical History: COPD, CVA/TIA, Myocardial Infarction (VT) Additional Family Medical History / Comment(s): HEART PROBLEMS, AT AGE 64 Medications and Allergies Home Medications Medication Instructions Recorded Confirmed Type Levothyroxine Sodium [Synthroid] 50 mcg PO QAM 01/05/14 01/26/24 History Pantoprazole Sodium [Protonix] 40 mg PO QAM 05/28/18 01/26/24 History Cyclobenzaprine [Flexeril] 10 mg PO BID PRN 10/29/20 01/26/24 History Atogepant [Qulipta] 60 mg PO QAM 08/21/21 01/26/24 History Ofatumumab [Kesimpta Pen] 20 mg SQ Q30D 02/12/22 01/26/24 History Albuterol Sulfate [Albuterol 2 puff INHALATION RT-Q6H PRN 02/19/23 01/26/24 History Sulfate Hfa] Gabapentin [Neurontin] 400 mg PO TID PRN 02/19/23 01/26/24 History Albuterol Nebulized [Ventolin 2.5 mg INHALATION RT-QID PRN 08/21/23 01/26/24 History Nebulized] Pravastatin Sodium [Pravachol] 40 mg PO DAILY 08/21/23 01/26/24 History Cetirizine HCl [Zyrtec] 10 mg PO HS 11/07/23 01/26/24 History valACYclovir HCL [Valtrex] 1,000 mg PO DAILY PRN 11/07/23 01/26/24 History Budesonide-Formot 160-4.5 Mcg 2 puff INHALATION BID 01/18/24 01/26/24 History [Symbicort 160-4.5 Mcg Inhaler] LORazepam [Ativan] 0.5 mg PO TID PRN 01/18/24 01/26/24 History Nicotine 21Mg/24Hr Patch [Habitrol] 1 each TRANSDERM DAILY 01/18/24 01/26/24 History Sulfamethoxazole/Trimethoprim 1 each PO BID 01/18/24 01/26/24 History [Bactrim DS 800-160 mg] oxyCODONE-APAP 10-325MG [Percocet 1 tab PO Q6HR PRN 01/18/24 01/26/24 History 10-325 mg] Allergies Allergy/AdvReac Type Severity Reaction Status Date / Time bee venom protein (honey bee) Allergy SWELLING , Verified 01/26/24 05:51 AND ITCHING Bleach (Sodium Hypochlorite) Allergy Rash/Hives Verified 01/26/24 05:51 nitrofurantoin Allergy Rash/Hives Verified 01/26/24 05:51 [From Macrobid] nitrofurantoin Allergy Rash/Hives Verified 01/26/24 05:51 macrocrystalline [From Macrobid] moxifloxacin [From Avelox] AdvReac Nausea & Verified 01/26/24 05:51 Vomiting NSAIDS (Non-Steroidal AdvReac Had Verified 01/26/24 05:51 Anti-Inflamma gastric sleeve surgery, causes bleeds. seasonal allergies Allergy congestion Uncoded 01/26/24 05:51 and sneezing Physical Exam Vitals: Vital Signs Temp Pulse Resp BP BP Pulse Ox 01/26/24 14:20 100 16 125/73 100 01/26/24 13:50 108 H 16 127/73 99 01/26/24 13:00 102 H 16 125/80 100 01/26/24 12:45 109 H 18 149/70 99 01/26/24 12:30 107 H 16 164/70 100 01/26/24 12:15 104 H 16 134/77 159/75 99 01/26/24 12:00 110 H 18 162/78 182/72 100 01/26/24 11:45 113 H 16 149/76 176/73 98 01/26/24 11:32 102 H 14 152/96 179/88 97 01/26/24 11:17 96.9 F L 105 H 10 L 157/68 177/78 98 01/26/24 07:05 98 16 134/78 94 L 01/26/24 06:13 97.0 F L 103 H 16 130/76 96 Intake and Output 01/25/24 01/26/24 01/26/24 22:59 06:59 14:59 Intake Total 200 1550 Output Total 1255 Balance 200 295 Intake: IV 200 1550 Output: Urine 1225 Estimated Blood Loss 30 Other: Weight 47.4 kg GENERAL EXAM: Alert, pleasant 48-year-old female, on 2 L nasal cannula, fairly comfortable in no apparent distress. HEAD: Normocephalic. EYES: Normal reaction of pupils, equal size. NOSE: Clear with pink turbinates. THROAT: No erythema or exudates. NECK: No masses, no JVD. CHEST: No chest wall deformity. Right-sided chest tube in place to Pleur-evac. LUNGS: Equal air entry with few scattered rhonchi bilaterally. CVS: S1 and S2 normal with no audible murmur, regular rhythm. ABDOMEN: No hepatosplenomegaly, normal bowel sounds, no guarding or rigidity. SPINE: No scoliosis or deformity SKIN: No rashes CENTRAL NERVOUS SYSTEM: No focal deficits, tone is normal in all 4 extremities. EXTREMITIES: There is no peripheral edema. No clubbing, no cyanosis. Peripheral pulses are intact. Results - Diagnostic Findings Chest x-ray: image reviewed Assessment and Plan Assessment: 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 Status post robotic assisted thoracoscopic right upper lobectomy with lysis of adhesions and mediastinal lymph node dissection. Postoperative day #0 Chronic hypoxic respiratory failure secondary to COPD. FEV1 value 66% of predicted. Maintained on Trelegy and albuterol Chronic and ongoing tobacco dependence Respiratory bronchiolitis associated smoking-related interstitial lung disease, right lung wedge biopsy Hypertension Hypothyroidism Obstructive sleep apnea Sleeve gastrectomy Splenectomy in 2018 History of anxiety/depression Plan: The patient was seen and evaluated Chest x-ray, labs and medications reviewed Right sided chest tube remains in place to Pleur-evac Titrate the FiO2 as tolerated Demonde Oren De Los Santos Encouraged the use of the incentive spirometer Again educated regarding the importance of smoking cessation NicoDerm patch is applied We will continue to follow and make further recommendations based on her clinical status I have personally seen and examined the patient, performed the documentation and the assessment and plan as written. Number of minutes spent on the visit: 20.
[2024-01-26] MEDS: DEXTROSE 5%-0.45% NACL 1,000 ML IV SCH (15:17)
[2024-01-26] MEDS: IPRATROPIUM-ALBUTEROL 3 ML NEB IH SCH (15:22)
[2024-01-26] MEDS: HEPARIN SODIUM,PORCINE 5,000 UNIT/ML 1 ML VIAL SQ SCH (15:59)
[2024-01-26] MEDS: oxyCODONE-APAP 10-325MG 1 EACH TAB PO PRN (15:59)
[2024-01-26] MEDS: DEXAMETHASONE SOD PHOSPHATE 4 MG/ML 1 ML VIAL IV ONE (16:56)
[2024-01-26] MEDS: ONDANSETRON 4 MG/2 ML VIAL IVP ONE (16:57)
[2024-01-26] MEDS: SCOPOLAMINE 1 MG/72 HR PATCH TRANSDERM ONE (16:57)
[2024-01-26 18:25] LABS: Basophils % (A) 0 %; Eosinophils # (A) 0.1 k/uL (0-0.7); Eosinophils % (A) 0 %; HCT 43.9 % (34.0-46.0); HGB 13.8 gm/dL (11.4-16.0); Hypochromasia Moderate; Lymphocytes % (A) 3 %; MCH 32.3 pg (25.0-35.0); MCHC 31.4 g/dL (31.0-37.0); MCV 102.9 fL (80.0-100.0); Macrocytosis Slight; Mean Platelet Volume 7.5; Monocytes # (A) 0.9 k/uL (0-1.0); Monocytes % (A) 3 %; Neutrophils # (A) 27.1 k/uL (1.3-7.7); Neutrophils % (A) 93 %; Platelet Count 536 k/uL (150-450); RBC 4.27 m/uL (3.80-5.40); RDW 13.9 % (11.5-15.5); WBC 29.2 k/uL (3.8-10.6)
--- NOTE | 2024-01-26 18:30 | P.ANPRN ---
Procedure Note - Anesthesia - Nerve Block Performed Right Erector Spinae Single Time Out Performed: Yes Date of Procedure: 01/26/24 Procedure Start Time: 06:51 Procedure Stop Time: 06:55 Location of Patient: PreOp Indication: Acute Post-Operative Pain, Requested by Surgeon Sedation Type: Sedate with meaningful contact maintained Preparation: Sterile Prep Position: Sitting Needle Types: Pajunk Needle Gauge: 21 Ultrasound used to visualize needle placement: Yes Ultrasound used to observe medication spread: Yes Blood Aspirated: No Pain Paresthesia on Injection Noted: No Resistance on Injection: Normal Image Stored and Saved: Yes Events: Uneventful and Well Tolerated (Ropivacaine 0.5% 15 cc plus normal saline 10 cc plus dexamethasone 4 mg)
[2024-01-26 18:35] LABS: African American GFR (CKD) >90 (>60 ml/min/1.73 sqM); Anion Gap 11 mmol/L; Blood Urea Nitrogen 9 mg/dL (7-17); Calcium 9.4 mg/dL (8.4-10.2); Carbon Dioxide 17 mmol/L (22-30); Chloride 109 mmol/L (98-107); Glucose 259 mg/dL (74-99); Magnesium 1.4 mg/dL (1.6-2.3); Non-African American GFR(CKD) >90 (>60 ml/min/1.73 sqM); Sodium 137 mmol/L (137-145)
[2024-01-26] MEDS: SYMBICORT 160-4.5 MCG INHALER INHALATION SCH (20:44)
[2024-01-26] MEDS ORDERED: Magnesium Replacement Protocol 1 EACH MISC MISCELLANE PRN (21:30)
[2024-01-26] MEDS: LORATADINE 10 MG TAB PO SCH (21:50)
[2024-01-26] MEDS: MAGNESIUM SULFATE-D5W PMX 1 GM in DEXTROSE/WATER 1 100ML.BAG IVPB SCH (21:51)
[2024-01-27] MEDS: ACETAMINOPHEN TAB 325 MG TAB PO PRN (00:08)
[2024-01-27] MEDS: LORazepam 0.5 MG TAB PO PRN (00:08)
[2024-01-27] MEDS: CYCLOBENZAPRINE 10 MG TAB PO PRN (00:08)
[2024-01-27] MEDS: PANTOPRAZOLE 40 MG TABLET PO SCH (06:13)
[2024-01-27] MEDS: LEVOTHYROXINE 50 MCG TAB PO SCH (06:13)
[2024-01-27] MEDS: NICOTINE 21MG/24HR PATCH TRANSDERM SCH (06:35)
[2024-01-27 06:44] LABS: Basophils # (A) 0.1 k/uL (0-0.2); Basophils % (A) 0 %; Eosinophils # (A) 0.3 k/uL (0-0.7); Eosinophils % (A) 1 %; HCT 41.4 % (34.0-46.0); HGB 13.2 gm/dL (11.4-16.0); Hypochromasia Slight; Lymphocytes # (A) 3.2 k/uL (1.0-4.8); Lymphocytes % (A) 14 %; MCH 32.3 pg (25.0-35.0); MCHC 31.9 g/dL (31.0-37.0); MCV 101.5 fL (80.0-100.0); Macrocytosis Slight; Monocytes # (A) 1.1 k/uL (0-1.0); Monocytes % (A) 5 %; Neutrophils % (A) 79 %; Platelet Count 470 k/uL (150-450); RBC 4.08 m/uL (3.80-5.40); RDW 13.7 % (11.5-15.5); WBC 22.9 k/uL (3.8-10.6)
[2024-01-27 07:03] LABS: African American GFR (CKD) >90 (>60 ml/min/1.73 sqM); Anion Gap 3 mmol/L; Blood Urea Nitrogen 10 mg/dL (7-17); Calcium 8.6 mg/dL (8.4-10.2); Carbon Dioxide 24 mmol/L (22-30); Chloride 109 mmol/L (98-107); Glucose 60 mg/dL (74-99); Magnesium 2.2 mg/dL (1.6-2.3); Non-African American GFR(CKD) >90 (>60 ml/min/1.73 sqM); Potassium 4.8 mmol/L (3.5-5.1); Sodium 136 mmol/L (137-145)
--- NOTE | 2024-01-27 07:48 | XR ---
EXAMINATION TYPE: XR chest 1V DATE OF EXAM: 01/27/2024 HISTORY: Status post lobectomy COMPARISON: 01/26/2024 TECHNIQUE: Single view of the chest is submitted. FINDINGS: Postoperative changes right hemithorax. Chest tube is in place. No evidence for sizable thorax. Promi nent seen throughout both lung jamil. There is no evidence for focal infiltrate. The heart is stable. Hilar and mediastinal structures are within normal limits. Degenerative changes are seen of the dorsal spine. IMPRESSION: 1. Postoperative changes right hemithorax. Chest tube is in place. No evidence for sizable thorax. P rominent seen throughout both lung jamil. [facility], , 01/27/2024 7:46 AM
--- NOTE | 2024-01-27 08:06 | P.PN ---
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 Past medical history significant for longstanding COPD with a preoperative FEV1 showing 1.33 L, 54% % of predic isadora value, asthma, obstructive sleep apnea, history of respiratory failure status post tracheostomy placement, history of renal failure, with dialysis, although her kidney function is back to normal, history of left bundle branch block followed by Dr. Katz, hypothyroidism, coronary artery disease, chronic ongoing tobacco dependence, chronic back pain, migraine headaches, history of TIA with no residual deficits in 2020, history of sleeve gastrectomy, history of splenectomy, anxiety and depression. POD #1 Robotic assisted thoracoscopic right upper lobectomy with lysis of adhesions and mediastinal lymph node dissection. The patient was seen and examined in follow-up today January 27, 2024 at her bedside on the third floor cardiac stepdown unit. She is currently sitting up to the bedside chair, is awake, alert, oriented x 3 and is in no acute apparent distress. She denies any complaints of shortness of breath at this time, although is complaining of surgical type pain rating her pain 10 out of 10 to her right chest. Oxygen saturations are 100% on 3 L nasal cannula and she is achieving 750 mL on her incentive spirometry with encouragement. Right pleural chest tube remains in place to low continuous wall suction -20 cm H2O. Intermittent airleak is present with coughing. Draining thin serosanguineous drainage with 40 mL output in the last 8 hours and 370 mL output since surgery. Remote telemetry is showing sinus tachycardia with left bundle branch block heart rate 100 bpm. She has been afebrile in the last 24 hours. She did have an episode of tachycardia last night with heart rates in the 130s, and cardiology has been consulted. She denies any complaints of chest pain, chest pressure or nausea. Laboratory and chest x-ray results were reviewed. Objective - Vital Signs Vital signs: Vital Signs Temp 97.6 F 01/27/24 03:30 Pulse 102 H 01/27/24 03:30 Resp 18 01/27/24 03:30 BP 134/83 01/27/24 03:30 Pulse Ox 100 01/27/24 03:30 FiO2 Intake & Output 01/26/24 01/27/24 01/27/24 18:59 06:59 18:59 Intake Total 1550 790 Output Total 1255 3506 Balance 295 -2716 Weight 47.4 kg Intake: IV 1550 10 Invasive Line 2 10 Oral 780 Output: Chest Tube Drainage 156 Chest Tube Right Lateral 156 Chest Urine 1225 3350 Uretheral ([place]) 350 Estimated Blood Loss 30 Other: Voiding Method Indwelling Catheter - Exam CONSTITUTIONAL: Appears comfortable, cooperative, no acute distress RESPIRATORY: Lungs sounds diminished bilaterally. Respirations symmetrical, nonlabored. Currently on 3 L nasal cannula with oxygen saturation 100%. Able to achieve 750 mL her on incentive spirometry. Strong cough. CARDIOVASCULAR: S1, S2 present. Regular rate and tachycardic rhythm, sinus tachycardia rhythm on telemetry, heart rate 100 bpm with left bundle branch block. Palpable peripheral pulses bilaterally. No edema present. No calf pain or tenderness noted. SCDs present. GASTROINTESTINAL: Abdomen soft, nontender, nondistended. Active bowel sounds present 4 quadrants. Tolerating diet. GENITOURINARY: Continues to void. INTEGUMENTARY: Skin is warm and dry with evidence of good perfusion. Thoracic incision well approximated and covered with dry intact dressing. NEUROLOGIC: Cranial nerves II through XII intact MUSKULOSKELETAL: Able to move all extremities, strength equal bilaterally, gait normal PSYCHIATRIC: Alert and oriented to person place and time, appropriate affect, intact judgment and insight INVASIVE LINES AND TUBES: Right pleural chest tube present and connected to low continuous wall suction, no air leak present. Right pleural chest tube with 40 mL serosanguineous drainage overnight, 370 mL last 24 hours. - Allied health notes Allied health notes reviewed: nursing - Labs CBC & Chem 7: 01/27/24 06:08 01/27/24 06:08 Labs: Abnormal Lab Results - Last 24 Hours (Table) 01/26/24 01/26/24 01/27/24 Range/Units 17:32 17:32 06:08 WBC 29.2 H 22.9 H (3.8-10.6) k/uL MCV 102.9 H 101.5 H (80.0-100.0) fL Plt Count 536 H 470 H (150-450) k/uL Neutrophils # 27.1 H 18.0 H (1.3-7.7) k/uL Monocytes # 1.1 H (0-1.0) k/uL Sodium (137-145) mmol/L Chloride 109 H (98-107) mmol/L Carbon Dioxide 17 L (22-30) mmol/L Glucose 259 H (74-99) mg/dL Magnesium 1.4 L (1.6-2.3) mg/dL 01/27/24 Range/Units 06:08 WBC (3.8-10.6) k/uL MCV (80.0-100.0) fL Plt Count (150-450) k/uL Neutrophils # (1.3-7.7) k/uL Monocytes # (0-1.0) k/uL Sodium 136 L (137-145) mmol/L Chloride 109 H (98-107) mmol/L Carbon Dioxide (22-30) mmol/L Glucose 60 L (74-99) mg/dL Magnesium (1.6-2.3) mg/dL - Imaging and Cardiology Chest x-ray: report reviewed, image reviewed Assessment and Plan Assessment: 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 Katz History of coronary artery disease Hypothyroidism Chronic ongoing tobacco dependence with recent cessation Migraine headaches History of TIA in 2020 with no residual deficits History of sleeve gastrectomy History of splenectomy Anxiety Depression Chronic back pain Plan: Right pleural chest tube and has been placed to waterseal, removed from low continuous wall suction. Encourage use of incentive spirometry 10 times every hour while awake. Continue to follow surgical pathology results. Continue to monitor daily labs and chest x-rays. Pain control per current as needed orders. Increase activity as tolerated. Out of bed for all meals. Ambulate as tolerated. Medical management other comorbidities per internal medicine and pulmonary critical care service recommendations. More recommendations to follow based on patient's clinical course. Time with Patient: Greater than 30
[2024-01-27] MEDS: Atogepant [Qulipta] 60 MG Tablet PO SCH (08:10)
[2024-01-27] MEDS: PRAVASTATIN SODIUM 40 MG TAB PO SCH (08:18)
[2024-01-27] MEDS: GABAPENTIN 400 MG CAP PO PRN (08:18)
[2024-01-27 10:58] LABS: T4, Free (Free Thyroxine) 0.84 ng/dL (0.78-2.19)
--- NOTE | 2024-01-27 11:23 | P.ANPRN ---
Procedure Note - Anesthesia - Invasive Line Right Arterial Line Time Out Performed: Yes Date of Procedure: 01/26/24 Time of Procedure: 06:45 Location of Patient: PreOp Preparation: Sterile Prep, Sterile Dressing Arterial Line Location: Radial Ultrasound Used: No Purpose - Visualization and Identification of Vasculature: No Image Stored and Saved: No Narrative: Invasive line placement per sterile protocol utilized.
--- NOTE | 2024-01-27 11:28 | P.PN ---
Subjective Progress Note Date: 01/27/24 Principal diagnosis: Status post right upper lobectomy. 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 She was brought in today electively for a robotic assisted thoracoscopic right upper lobectomy with lysis of adhesions and mediastinal lymph node dissection. She is seen in consultation in the recovery room. She is currently awake. Maintaining good O2 saturations in the 90s on 2 L/min per nasal cannula. She has normal saline at 75 mL/h. Right sided chest tube remains in place to Pleur-evac. Chest x-ray reveals evidence of a postoperative changes. Glucose 103. Progress note dated January 27, 2024. 48-year-old female who is postoperative day #1, status post robotically assisted right upper lobectomy, for lung cancer. We saw the patient in the postanesthesia care unit yesterday. She has a history of squamous cell carcinoma involving the right upper lobe. It measured 2.7 cm in size. She had a elective robotic bronchoscopy, and subsequently, ended up with a right upper lobectomy, done robotically as well. She also had lysis of adhesions, and the mediastinal lymph node dissection. Currently, she is seen in room 358. She is on room air. She is not receiving any IV fluids. The chest tube is off suction. There is no leak noted. White count 22.9, hemoglobin 13.2, hematocrit 41.4, platelet count 470,000. Sodium 136, potassium 4.8, chlorides 109, CO2 24, BUN and creatinine are normal. Chest x-ray shows some postoperative changes, no pneumothorax present Objective - Vital Signs Vital signs: Vital Signs Temp 99.0 F 01/27/24 08:00 Pulse 95 01/27/24 09:48 Resp 18 01/27/24 09:48 BP 124/75 01/27/24 08:00 Pulse Ox 94 L 01/27/24 09:36 FiO2 Intake & Output 10/02/0801/27/24 01/27/24 18:59 06:59 18:59 Intake Total 1550 790 240 Output Total 1255 3506 Balance 295 -2716 240 Weight 47.4 kg Intake: IV 1550 10 Invasive Line 2 10 Oral 780 240 Output: Chest Tube Drainage 156 Chest Tube Right Lateral 156 Chest Urine 1225 3350 Uretheral ([place]) 350 Estimated Blood Loss 30 Other: Voiding Method Indwelling Catheter Indwelling Catheter - Exam No acute distress, oriented 3. Currently on room air. HEENT examination is grossly unremarkable. Mucous membranes are moist. No oral lesions. Neck supple. Full range of motion. No adenopathy thyromegaly or neck vein distention. Cardiovascular examination reveals regular rhythm rate. S1-S2 normal. No S3 or S4. No discernible murmur noted. Lungs reveal minimal rhonchi. No wheezes or crackles. Breath sounds equal. Right sided chest tube noted. Abdomen soft bowel sounds are heard. No masses or tenderness. Extremities are intact. No cyanosis clubbing or edema. Skin is without rash or lesion. Neurologic examination is brief but nonfocal. - Labs CBC & Chem 7: 01/27/24 06:08 01/27/24 06:08 Labs: Abnormal Lab Results - Last 24 Hours (Table) 01/26/24 01/26/24 01/27/24 Range/Units 17:32 17:32 06:08 WBC 29.2 H 22.9 H (3.8-10.6) k/uL MCV 102.9 H 101.5 H (80.0-100.0) fL Plt Count 536 H 470 H (150-450) k/uL Neutrophils # 27.1 H 18.0 H (1.3-7.7) k/uL Monocytes # 1.1 H (0-1.0) k/uL Sodium (137-145) mmol/L Chloride 109 H (98-107) mmol/L Carbon Dioxide 17 L (22-30) mmol/L Glucose 259 H (74-99) mg/dL Magnesium 1.4 L (1.6-2.3) mg/dL TSH (0.465-4.680) mIU/L 01/27/24 01/27/24 Range/Units 06:08 06:08 WBC (3.8-10.6) k/uL MCV (80.0-100.0) fL Plt Count (150-450) k/uL Neutrophils # (1.3-7.7) k/uL Monocytes # (0-1.0) k/uL Sodium 136 L (137-145) mmol/L Chloride 109 H (98-107) mmol/L Carbon Dioxide (22-30) mmol/L Glucose 60 L (74-99) mg/dL Magnesium (1.6-2.3) mg/dL TSH 0.325 L (0.465-4.680) mIU/L Assessment and Plan Assessment: 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 Status post robotic assisted thoracoscopic right upper lobectomy with lysis of adhesions and mediastinal lymph node dissection. Postoperative day #1. Chronic hypoxic respiratory failure secondary to heart COPD. FEV1 value 66%. Chronic and ongoing tobacco dependence. 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 Hypertension. Hypothyroidism. Obstructive sleep apnea. Sleeve gastrectomy. Splenectomy in 2018. History of anxiety/depression. Plan: Plan dated January 27, 2024. The patient is seen today in room 358. She is postop day #1 status post robotically assisted right upper lobectomy, lysis of adhesions, and mediastinal lymph node dissection. The patient continues on room air. No IV fluids. Labs, x-rays, medications are reviewed. The chest tube is off of suction. There is no leak. Hopeful discharge in the near future. We will continue to follow make recommendations along the way. Time with Patient: Less than 30
[2024-01-27] MEDS: ACETAMINOPHEN IV (For NPO) 700 MG in EMPTY BAG 1 BAG IVPB SCH (12:28)
[2024-01-27] MEDS: METOPROLOL TARTRATE 25 MG TAB PO SCH (12:29)
--- NOTE | 2024-01-27 12:30 | P.CRDCN ---
History of Present Illness Consult date: 01/27/24 Reason for Consult (text): Abnormal EKG History of present illness: This is a 48-year-old female patient of Dr. Katz with past medical history of TIA, hypertension, left bundle branch block, COPD, obstructive sleep apnea, history of respiratory failure requiring tracheostomy, hypothyroidism, history of acute kidney injury requiring dialysis, tobacco use and dependence, history of sleeve gastrectomy. Patient was brought into the hospital underwent a robotic right upper lobectomy with lysis of adhesions on 01/25. She currently has a chest tube in place. She was noted to have heart rate up to the 130s. EKG revealed a sinus tachycardia at 132. She states she did have palpitations at the time and had some labored breathing as well. She states the palpitations have resolved but she still has labored breathing. She is currently on telemetry with a heart rate of 109. Chest x-ray: Postop changes right hemithorax. Chest tube in place. Laboratory studies: WBC 22.9, hemoglobin 13.2. Sodium 136, potassium 4.8, creatinine 0.67. TSH 0.325. Normal free T4. Home cardiac medications: Pravachol 40 mg daily. According to office note from 08/08/2023, patient was to be on metoprolol succinate 12.5 mg daily Echocardiogram performed 10/03/2023 revealed EF of 55 to 60%, mild pulmonary hypertension, no pericardial effusion. Normal aortic root and proximal ascending aorta. Lexiscan Cardiolite stress test performed in the office in 2020 revealed rate related bundle branch block at rate of 90 bpm, narrow QRS at heart rates below that. Likely retrograde continuation of the right bundle with a right ventricular PVC that normalizes the QRS. Holter monitor performed in the office revealed sinus mechanism is running between 67 and 128 with average of 82 bpm. No significant ectopy or arrhythmia. Review Of Systems: At the time of my exam: CONSTITUTIONAL: Denies fever or chills. HEENT: Denies blurred vision, vision changes, or eye pain. Denies hemoptysis CARDIOVASCULAR: Denies chest pain. Denies orthopnea. Denies PND. Denies palpitations RESPIRATORY: Reports shortness of breath. GASTROINTESTINAL: Denies abdominal pain. Denies nausea or vomiting. HEMATOLOGIC: Denies bleeding disorders. GENITOURINARY: Denies any blood in urine. SKIN: Denies puritis. Denies rash. Physical examination: Gen: This is a thin 48-year-old female resting in a chair appears to be anxious and uncomfortable. VS: reviewed HEENT: Head is atraumatic, normocephalic. Pupils equal, round. Sclerae is anicteric. NECK: Supple. No JVD. LUNGS: Diminished breath sounds on the right upper lobe. No intercostal retractions. HEART: Regular rate and rhythm. No murmur. ABDOMEN: Soft No tenderness. EXTREMITIES: No pedal edema. No calf tenderness. NEUROLOGICAL: Patient is awake, alert and oriented x3. Assessment: Sinus tachycardia and palpitations Squamous cell carcinoma of the right upper lobe status post right upper lobectomy and lysis of adhesions 01/25 Chronic hypoxic respiratory failure Respiratory bronchiolitis Hypertension Left bundle branch block COPD Obstructive sleep apnea Tobacco use and dependence, patient states she quit on 01/10 Plan: Continue patient's home cardiac medications Add Lopressor 25 mg twice daily Continue telemetry monitoring Further recommendations to follow based upon clinical course Thank you kindly for this consultation. Nurse practitioner note has been reviewed, I agree with documented findings and plan of care. Patient was seen and examined. Past Medical History Past Medical History: Asthma, Cancer, COPD, CVA/TIA, GERD/Reflux, Hypertension, Musculoskeletal Disorder, Neurologic Disorder, Sleep Apnea/CPAP/BIPAP, Thyroid Disorder Additional Past Medical History / Comment(s): smoking-related interstitial lung disease, doesn't use CPAP, history of seizure at the age of 16 related to med. to stop breast milk, endometriosis, chronic back pain, plantar fasciitis, hx. of Achilles tendinitis, probably antibiotic induced. She also has history of hypothyroidism, ALLERGIC rhinitis, migraines, uses oxygen 2L prn, recent iron infusion, MS , tia 2020 no residual issues, needs cholecystetomy, tinnitus, balance issues,. Dx. w/ leukemia, 10/2023 History of Any Multi-Drug Resistant Organisms: None Reported Past Surgical History: Bariatric Surgery, Cholecystectomy, Hysterectomy, Tubal Ligation, Uterine Ablation Additional Past Surgical History / Comment(s): LEEP PROCEDURE X 2, EGD, BACK INJECTIONS FOR PAIN. The patient has also undergone thoracic/thoracoscopic wedge biopsy of the right lung. 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; R and Y bypass at [facility] 2019,TRACHEOTOMY-RESOLVED Past Anesthesia/Blood Transfusion Reactions: Motion Sickness Additional Past Anesthesia/Blood Transfusion Reaction / Comment(s): no problem w/blood transfusion Smoking Status: Current every day smoker - Past Family History Sister(s) Family Medical History: Cancer Additional Family Medical History / Comment(s): ovarian Mother Family Medical History: Cancer Additional Family Medical History / Comment(s): breast cancer Father Family Medical History: COPD, CVA/TIA, Myocardial Infarction ([place]) Additional Family Medical History / Comment(s): HEART PROBLEMS, AT AGE 64 Medications and Allergies Home Medications Medication Instructions Recorded Confirmed Type Levothyroxine Sodium [Synthroid] 50 mcg PO QAM 01/05/14 01/26/24 History Pantoprazole Sodium [Protonix] 40 mg PO QAM 05/28/18 01/26/24 History Cyclobenzaprine [Flexeril] 10 mg PO BID PRN 10/29/20 01/26/24 History Atogepant [Qulipta] 60 mg PO QAM 08/21/21 01/26/24 History Ofatumumab [Kesimpta Pen] 20 mg SQ Q30D 02/12/22 01/26/24 History Albuterol Sulfate [Albuterol 2 puff INHALATION RT-Q6H PRN 02/19/23 01/26/24 History Sulfate Hfa] Gabapentin [Neurontin] 400 mg PO TID PRN 02/19/23 01/26/24 History Albuterol Nebulized [Ventolin 2.5 mg INHALATION RT-QID PRN 08/21/23 01/26/24 History Nebulized] Pravastatin Sodium [Pravachol] 40 mg PO DAILY 08/21/23 01/26/24 History Cetirizine HCl [Zyrtec] 10 mg PO HS 11/07/23 01/26/24 History valACYclovir HCL [Valtrex] 1,000 mg PO DAILY PRN 11/07/23 01/26/24 History Budesonide-Formot 160-4.5 Mcg 2 puff INHALATION BID 01/18/24 01/26/24 History [Symbicort 160-4.5 Mcg Inhaler] LORazepam [Ativan] 0.5 mg PO TID PRN 01/18/24 01/26/24 History Nicotine 21Mg/24Hr Patch [Habitrol] 1 each TRANSDERM DAILY 01/18/24 01/26/24 History Sulfamethoxazole/Trimethoprim 1 each PO BID 01/18/24 01/26/24 History [Bactrim DS 800-160 mg] oxyCODONE-APAP 10-325MG [Percocet 1 tab PO Q6HR PRN 01/18/24 01/26/24 History 10-325 mg] Allergies Allergy/AdvReac Type Severity Reaction Status Date / Time bee venom protein (honey bee) Allergy SWELLING , Verified 01/26/24 05:51 AND ITCHING Bleach (Sodium Hypochlorite) Allergy Rash/Hives Verified 01/26/24 05:51 nitrofurantoin Allergy Rash/Hives Verified 01/26/24 05:51 [From Macrobid] nitrofurantoin Allergy Rash/Hives Verified 01/26/24 05:51 macrocrystalline [From Macrobid] moxifloxacin [From Avelox] AdvReac Nausea & Verified 01/26/24 05:51 Vomiting NSAIDS (Non-Steroidal AdvReac Had Verified 01/26/24 05:51 Anti-Inflamma gastric sleeve surgery, causes bleeds. seasonal allergies Allergy congestion Uncoded 01/26/24 05:51 and sneezing Physical Exam Vitals: Vital Signs Temp Pulse Pulse Resp BP BP Pulse Ox 01/27/24 03:30 97.6 F 102 H 18 134/83 100 01/27/24 01:58 103 H 01/26/24 23:23 97.4 F L 112 H 18 115/71 98 01/26/24 20:57 88 01/26/24 20:45 86 01/26/24 20:19 98.0 F 115 H 18 124/82 98 01/26/24 20:00 115 H 01/26/24 16:00 114 H 18 133/81 96 01/26/24 15:34 88 01/26/24 15:23 84 01/26/24 14:20 100 16 125/73 100 01/26/24 13:50 108 H 16 127/73 99 01/26/24 13:00 102 H 16 125/80 100 01/26/24 12:45 109 H 18 149/70 99 01/26/24 12:30 107 H 16 164/70 100 01/26/24 12:15 104 H 16 134/77 159/75 99 01/26/24 12:00 110 H 18 162/78 182/72 100 01/26/24 11:45 113 H 16 149/76 176/73 98 01/26/24 11:32 102 H 14 152/96 179/88 97 01/26/24 11:17 96.9 F L 105 H 10 L 157/68 177/78 98 Intake and Output 01/26/24 01/27/24 01/27/24 22:59 06:59 14:59 Intake Total 790 Output Total 96 3410 Balance 694 -3410 Intake: IV 10 Invasive Line 2 10 Oral 780 Output: Chest Tube Drainage 96 60 Chest Tube Right Lateral 96 60 Chest Urine 3350 Uretheral ([place]) 350 Other: Voiding Method Indwelling Catheter Indwelling Catheter Weight 47.4 kg Results 01/27/24 06:08 01/27/24 06:08 CBC 01/26/24 01/27/24 Range/Units 17:32 06:08 WBC 29.2 H 22.9 H (3.8-10.6) k/uL RBC 4.27 4.08 (3.80-5.40) m/uL Hgb 13.8 13.2 (11.4-16.0) gm/dL Hct 43.9 41.4 (34.0-46.0) % Plt Count 536 H 470 H (150-450) k/uL Comprehensive Metabolic Panel 01/26/24 01/27/24 Range/Units 17:32 06:08 Sodium 137 136 L (137-145) mmol/L Potassium 5.0 4.8 (3.5-5.1) mmol/L Chloride 109 H 109 H (98-107) mmol/L Carbon Dioxide 17 L 24 (22-30) mmol/L BUN 9 10 (7-17) mg/dL Creatinine 0.75 0.67 (0.52-1.04) mg/dL Glucose 259 H 60 L (74-99) mg/dL Calcium 9.4 8.6 (8.4-10.2) mg/dL Current Medications Generic Name Dose Route Start Last Admin Trade Name Freq PRN Reason Stop Dose Admin Albuterol/Ipratropium 3 ml 01/26/24 14:47 Ipratropium-Albuterol 3 Ml Neb IH RT-Q1H PRN Shortness Of Breath Or Wheezing Albuterol/Ipratropium 3 ml 01/26/24 14:47 01/26/24 20:44 Ipratropium-Albuterol 3 Ml Neb IH 3 ml RT-QID YOLANDA Administration Bisacodyl 10 mg 01/26/24 14:47 Bisacodyl 10 Mg Supp RECTAL DAILY PRN Constipation Budesonide/Formoterol Fumarate 2 puff 01/26/24 20:00 01/26/24 20:44 Symbicort 160-4.5 Mcg Inhaler INHALATION 2 puff RT-BID YOLANDA Administration Cyclobenzaprine HCl 10 mg 01/26/24 14:47 01/27/24 00:08 Cyclobenzaprine 10 Mg Tab PO 10 mg BID PRN Administration Spasms Gabapentin 400 mg 01/26/24 14:47 01/27/24 08:18 Gabapentin 400 Mg Cap PO 400 mg TID PRN Administration Pain Heparin Sodium (Porcine) 5,000 unit 01/26/24 16:00 01/27/24 08:18 Heparin Sodium,Porcine 5,000 Unit/Ml 1 Ml Vial SQ 5,000 unit Q8HR YOLANDA Administration Hydromorphone HCl 0.5 mg 01/27/24 08:06 Hydromorphone 0.5 Mg/0.5 Ml Syringe IVP Q6HR PRN Pain Acetaminophen 700 mg/ IV 70 mls @ 280 mls/hr 01/27/24 12:00 Solution IVPB 01/28/24 06:14 Q6HR YOLANDA Levothyroxine Sodium 50 mcg 01/27/24 06:30 01/27/24 06:13 Levothyroxine 50 Mcg Tab PO 50 mcg 0630 YOLANDA Administration Loratadine 10 mg 01/26/24 21:00 01/26/24 21:50 Loratadine 10 Mg Tab PO 10 mg HS YOLANDA Administration Lorazepam 0.5 mg 01/26/24 14:47 01/27/24 03:24 Lorazepam 0.5 Mg Tab PO 0.5 mg TID PRN Administration Anxiety Metoclopramide HCl 10 mg 01/26/24 14:47 Metoclopramide 5 Mg/Ml 2 Ml Vial IVP Q4HR PRN Nausea And Vomiting Miscellaneous Information 1 each 01/26/24 21:30 Magnesium Replacement Protocol 1 Each Misc MISCELLANE DAILY PRN Per Protocol Protocol Nicotine 1 patch 01/27/24 09:00 01/27/24 06:35 Nicotine 21mg/24hr Patch TRANSDERM 1 patch DAILY YOLANDA Administration Atogepant [Qulipta] 60 mg 01/27/24 09:00 01/27/24 08:10 60 Mg Tablet PO Not Given QAM YOLANDA Ondansetron HCl 4 mg 01/26/24 14:47 Ondansetron 4 Mg/2 Ml Vial IVP Q8HR PRN Nausea And Vomiting Oxycodone/Acetaminophen 1 each 01/26/24 14:47 01/27/24 03:18 Oxycodone-Apap 10-325mg 1 Each Tab PO 1 each Q6HR PRN Administration Pain Pantoprazole Sodium 40 mg 01/27/24 07:30 01/27/24 06:13 Pantoprazole 40 Mg Tablet PO 40 mg 0730 YOLANDA Administration Pravastatin Sodium 40 mg 01/27/24 09:00 01/27/24 08:18 Pravastatin Sodium 40 Mg Tab PO 40 mg DAILY YOLANDA Administration Intake and Output 01/26/24 01/27/24 01/27/24 22:59 06:59 14:59 Intake Total 790 Output Total 96 3410 Balance 694 -3410 Intake: IV 10 Invasive Line 2 10 Oral 780 Output: Chest Tube Drainage 96 60 Chest Tube Right Lateral 96 60 Chest Urine 3350 Uretheral ([place]) 350 Other: Voiding Method Indwelling Catheter Indwelling Catheter Weight 47.4 kg 01/27/24 06:08 01/27/24 06:08
--- NOTE | 2024-01-28 01:02 | HP ---
HISTORY AND PHYSICAL CHIEF COMPLAINT: Right upper lobe mass. HISTORY OF PRESENT ILLNESS: This is a first known admission for this 48-year-old female smoker, who is coming in for an elective right upper lobectomy. REVIEW OF SYSTEMS: She denies any significant shortness of breath, hemoptysis, anorexia, weight loss, etc. Past medical history, family history, personal and social histories are all unconsequential and can be found in her admitting summary. PHYSICAL EXAMINATION: VITAL SIGNS: Normal. HEAD, EARS, EYES, NOSE, MOUTH, AND THROAT: Normal. CHEST: Clear. CARDIAC: Normal. ABDOMEN: Soft, nontender. EXTREMITIES: Normal. IMPRESSION: 1. Right upper lobe nodular mass. 2. Chronic obstructive pulmonary disease. RECOMMENDATIONS: None. Thank you respectfully, GINGER / LINDA: [phone] /
--- NOTE | 2024-01-28 02:29 | PN ---
PROGRESS NOTE DATE OF SERVICE: 01/27/2024 CHIEF COMPLAINT: Right upper lobe mass. HISTORY OF PRESENT ILLNESS: This lady is doing well post lobectomy. She is not short of breath and she is having very little pain. PHYSICAL EXAMINATION: GENERAL: She is sitting up comfortably. She is not nauseated. VITAL SIGNS: Normal. HEAD, EARS, EYES, NOSE, MOUTH, AND THROAT: Normal. CHEST: Clear. Chest tube is still in the right chest. CARDIAC: Normal. IMPRESSION: Status post right upper lobectomy for a lung mass. PLAN: No change in management and she will probably be able to go home soon. MMODL / IJN: [id number] /
[2024-01-28] MEDS: HYDROmorphone 0.5 MG/0.5 ML SYRINGE IVP PRN (02:40)
--- NOTE | 2024-01-28 06:43 | XR ---
EXAMINATION TYPE: XR chest 1V portable DATE OF EXAM: 01/28/2024 COMPARISON: 01/28/2024 HISTORY: Postop right upper lobe lobectomy TECHNIQUE: Single frontal view of the chest is obtained. FINDINGS: There is a right chest tube tip of which is in the right apex. There is a stable right apical pneumot horax. There is no change in the diffuse interstitial opacity in both lungs. The heart size is normal. There is no pleural effusion. The osseous structures are intact IMPRESSION: Right chest tube unchanged in position and stable right apical pneumothorax. [facility], , 01/28/2024 6:40 AM
[2024-01-28 07:02] LABS: HCT 37.1 % (34.0-46.0); HGB 12.1 gm/dL (11.4-16.0); MCH 33.3 pg (25.0-35.0); MCHC 32.6 g/dL (31.0-37.0); MCV 102.2 fL (80.0-100.0); Macrocytosis Slight; Mean Platelet Volume 8.1; Platelet Count 435 k/uL (150-450); RBC 3.63 m/uL (3.80-5.40); RDW 14.4 % (11.5-15.5); WBC 21.6 k/uL (3.8-10.6)
[2024-01-28 07:40] LABS: ALT 16 U/L (4-34); AST 32 U/L (14-36); African American GFR (CKD) >90 (>60 ml/min/1.73 sqM); Alkaline Phosphatase 126 U/L (38-126); Anion Gap 4 mmol/L; Blood Urea Nitrogen 12 mg/dL (7-17); Calcium 8.9 mg/dL (8.4-10.2); Carbon Dioxide 26 mmol/L (22-30); Chloride 108 mmol/L (98-107); Glucose 75 mg/dL (74-99); Magnesium 1.8 mg/dL (1.6-2.3); Non-African American GFR(CKD) >90 (>60 ml/min/1.73 sqM); Potassium 4.2 mmol/L (3.5-5.1); Sodium 138 mmol/L (137-145); Total Bilirubin 0.4 mg/dL (0.2-1.3); Total Protein 5.6 g/dL (6.3-8.2)
[2024-01-28 07:49] LABS: Band Neutrophils % 1 %; Eosinophils # (M) 1.08 k/uL (0-0.7); Metamyelocytes # (M) 0.22 k/uL (0); Metamyelocytes % 1 %; Monocytes # (M) 2.59 k/uL (0-1.0); Myelocytes # (M) 0.43 k/uL (0); Myelocytes % 2 %; Neutrophils % (M) 62 %; Nucleated Red Blood Cells 0 /100 WBC (0-0); Total Cells Counted 200
--- NOTE | 2024-01-28 11:08 | P.PN ---
Subjective Progress Note Date: 01/28/24 Principal diagnosis: Status post right upper lobectomy. 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 She was brought in today electively for a robotic assisted thoracoscopic right upper lobectomy with lysis of adhesions and mediastinal lymph node dissection. She is seen in consultation in the recovery room. She is currently awake. Maintaining good O2 saturations in the 90s on 2 L/min per nasal cannula. She has normal saline at 75 mL/h. Right sided chest tube remains in place to Pleur-evac. Chest x-ray reveals evidence of a postoperative changes. Glucose 103. Progress note dated January 27, 2024. 48-year-old female who is postoperative day #1, status post robotically assisted right upper lobectomy, for lung cancer. We saw the patient in the postanesthesia care unit yesterday. She has a history of squamous cell carcinoma involving the right upper lobe. It measured 2.7 cm in size. She had a elective robotic bronchoscopy, and subsequently, ended up with a right upper lobectomy, done robotically as well. She also had lysis of adhesions, and the mediastinal lymph node dissection. Currently, she is seen in room 358. She is on room air. She is not receiving any IV fluids. The chest tube is off suction. There is no leak noted. White count 22.9, hemoglobin 13.2, hematocrit 41.4, platelet count 470,000. Sodium 136, potassium 4.8, chlorides 109, CO2 24, BUN and creatinine are normal. Chest x-ray shows some postoperative changes, no pneumothorax present. Progress note dated January 28, 2024. 48-year-old female seen today in room 358. She is status post right upper lobectomy, postop day #2. The patient is on room air. No IV fluids. She does have a leak from the right sided chest tube. White count 21.6, hemoglobin 12.1, hematocrit 37.1, and platelet count 435,000. Sodium 138, potassium 4.2, chlorides 108, CO2 26, BUN 12, creatinine 0.53. Chest x-ray shows a right sided chest tube, unchanged in position, and a stable right apical pneumothorax. Objective - Vital Signs Vital signs: Vital Signs Temp 97.6 F 01/28/24 09:10 Pulse 90 01/28/24 09:12 Resp 18 01/28/24 09:10 BP 99/63 01/28/24 09:10 Pulse Ox 99 01/28/24 09:10 FiO2 Intake & Output 01/27/24 01/28/24 01/28/24 18:59 06:59 18:59 Intake Total 780 30 247 Output Total 900 Balance -120 30 247 Weight 48.5 kg Intake: IV 30 10 Invasive Line 1 10 Invasive Line 2 10 Invasive Line 4 10 10 Oral 780 237 Output: Urine 900 Other: Voiding Method Indwelling Catheter Toilet Toilet - Exam No acute distress, oriented 3. Currently on room air. HEENT examination is grossly unremarkable. Mucous membranes are moist. No oral lesions. Neck supple. Full range of motion. No adenopathy thyromegaly or neck vein distention. Cardiovascular examination reveals regular rhythm rate. S1-S2 normal. No S3 or S4. No discernible murmur noted. Lungs reveal minimal rhonchi. No wheezes or crackles. Breath sounds equal. Right sided chest tube noted. Abdomen soft bowel sounds are heard. No masses or tenderness. Extremities are intact. No cyanosis clubbing or edema. Skin is without rash or lesion. Neurologic examination is brief but nonfocal. - Labs CBC & Chem 7: 01/28/24 05:57 01/28/24 05:57 Labs: Abnormal Lab Results - Last 24 Hours (Table) 01/28/24 01/28/24 Range/Units 05:57 05:57 WBC 21.6 H (3.8-10.6) k/uL RBC 3.63 L (3.80-5.40) m/uL MCV 102.2 H (80.0-100.0) fL Neutrophils # (Manual) 13.60 H (1.3-7.7) k/uL Monocytes # (Manual) 2.59 H (0-1.0) k/uL Eosinophils # (Manual) 1.08 H (0-0.7) k/uL Metamyelocytes # (Man) 0.22 H (0) k/uL Myelocytes # (Manual) 0.43 H (0) k/uL Chloride 108 H (98-107) mmol/L Total Protein 5.6 L (6.3-8.2) g/dL Albumin 3.0 L (3.5-5.0) g/dL Assessment and Plan Assessment: 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 Status post robotic assisted thoracoscopic right upper lobectomy with lysis of adhesions and mediastinal lymph node dissection. Postoperative day #2. Chronic hypoxic respiratory failure secondary to heart COPD. FEV1 value 66%. Chronic and ongoing tobacco dependence. 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 Hypertension. Hypothyroidism. Obstructive sleep apnea. Sleeve gastrectomy. Splenectomy in 2018. History of anxiety/depression. Plan: Plan dated January 27, 2024. The patient is seen today in room 358. She is postop day #1 status post robotically assisted right upper lobectomy, lysis of adhesions, and mediastinal lymph node dissection. The patient continues on room air. No IV fluids. Labs, x-rays, medications are reviewed. The chest tube is off of suction. There is no leak. Hopeful discharge in the near future. We will continue to follow make recommendations along the way. Plan dated January 28, 2024. The patient had an uneventful night. She is seen in room 358. She is postoperative day #2. The patient has a right sided chest tube in place. There is a leak. She also has a stable right apical pneumothorax. Labs, x-rays, and all medications are reviewed. We will continue to follow. Prognosis is guarded. Time with Patient: Less than 30
--- NOTE | 2024-01-28 12:05 | PN ---
PROGRESS NOTE CHIEF COMPLAINT: Right upper lobe mass. HISTORY OF PRESENT ILLNESS: This lady is doing well. Chest tube still in place and she will not be going home today. REVIEW OF SYSTEMS: She is not having a great deal of pain. PHYSICAL EXAMINATION: CHEST: Clear. Breath sounds are heard on the right. Chest tube is in place. CARDIAC: Normal. ABDOMEN: Soft, nontender. IMPRESSION: 1. Status post right upper lobectomy. 2. Chronic obstructive pulmonary disease. 3. Chronic leukocytosis. PLAN: No change in her program at this time. She is stable. She has been seen by Hematology for her elevated white count. MMODL / IJN: [id number] /
--- NOTE | 2024-01-28 13:01 | P.PN ---
Subjective Progress Note Date: 01/28/24 Principal diagnosis: 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. Past medical history significant for longstanding COPD with a preoperative FEV1 showing 1.33 L, 54% % of predic isadora value, asthma, obstructive sleep apnea, history of respiratory failure status post tracheostomy placement, history of renal failure, with dialysis, although her kidney function is back to normal, history of left bundle branch block followed by Dr. Katz, hypothyroidism, coronary artery disease, chronic ongoing tobacco dependence, chronic back pain, migraine headaches, history of TIA with no residual deficits in 2020, history of sleeve gastrectomy, history of splenectomy, anxiety and depression. POD #2 Robotic assisted thoracoscopic right upper lobectomy with lysis of adhesions and mediastinal lymph node dissection. The patient was seen and examined in follow-up today January 28, 2024 at her bedside on the third floor cardiac stepdown unit. She is currently sitting up to the bedside chair, is awake, alert, oriented x 3 and is in no acute apparent distress. She denies any complaints of shortness of breath at this time, and states her pain is much better controlled today and currently rating her pain 2 out of 10 on the pain scale. Oxygen saturations are 96% on room air and she is achieving 750 mL on her incentive spirometry with encouragement. Right pleural chest tube remains in place to low continuous wall suction -20 cm H2O. Intermittent airleak is present with coughing. Draining thin serosanguineous drainage with 70 mL output in the last 24 hours. Remote telemetry is showing sinus tachycardia with left bundle branch block heart rate 126 bpm. She has been afebrile in the last 24 hours. She denies any complaints of chest pain, chest pressure or nausea. Laboratory and chest x-ray results were reviewed. Objective - Vital Signs Vital signs: Vital Signs Temp 97.6 F 01/28/24 09:10 Pulse 92 01/28/24 11:47 Resp 18 01/28/24 09:10 BP 99/63 01/28/24 09:10 Pulse Ox 99 01/28/24 09:10 FiO2 Intake & Output 01/27/24 01/28/24 01/28/24 18:59 06:59 18:59 Intake Total 780 30 247 Output Total 900 Balance -120 30 247 Weight 48.5 kg Intake: IV 30 10 Invasive Line 1 10 Invasive Line 2 10 Invasive Line 4 10 10 Oral 780 237 Output: Urine 900 Other: Voiding Method Indwelling Catheter Toilet Toilet - Exam CONSTITUTIONAL: Appears comfortable, cooperative, no acute distress RESPIRATORY: Lungs sounds diminished bilaterally. Respirations symmetrical, nonlabored. Currently on room air with oxygen saturation 96%. Able to achieve 750 mL her on incentive spirometry. Strong cough. CARDIOVASCULAR: S1, S2 present. Regular rate and tachycardic rhythm, sinus ta chycardia rhythm on telemetry, heart rate 126 bpm with left bundle branch block. Palpable peripheral pulses bilaterally. No edema present. No calf pain or tenderness noted. SCDs present. GASTROINTESTINAL: Abdomen soft, nontender, nondistended. Active bowel sounds present 4 quadrants. Tolerating diet. GENITOURINARY: Continues to void. INTEGUMENTARY: Skin is warm and dry with evidence of good perfusion. Thoracic incision well approximated and covered with dry intact dressing. NEUROLOGIC: Cranial nerves II through XII intact MUSKULOSKELETAL: Able to move all extremities, strength equal bilaterally, gait normal PSYCHIATRIC: Alert and oriented to person place and time, appropriate affect, intact judgment and insight INVASIVE LINES AND TUBES: Right pleural chest tube present and is to waterseal, intermittent airleak is present with coughing. Right pleural chest tube with 70 mL thin serosanguineous drainage in the last 24 hours. - Allied health notes Allied health notes reviewed: nursing - Labs CBC & Chem 7: 01/28/24 05:57 01/28/24 05:57 Labs: Abnormal Lab Results - Last 24 Hours (Table) 01/28/24 01/28/24 Range/Units 05:57 05:57 WBC 21.6 H (3.8-10.6) k/uL RBC 3.63 L (3.80-5.40) m/uL MCV 102.2 H (80.0-100.0) fL Neutrophils # (Manual) 13.60 H (1.3-7.7) k/uL Monocytes # (Manual) 2.59 H (0-1.0) k/uL Eosinophils # (Manual) 1.08 H (0-0.7) k/uL Metamyelocytes # (Man) 0.22 H (0) k/uL Myelocytes # (Manual) 0.43 H (0) k/uL Chloride 108 H (98-107) mmol/L Total Protein 5.6 L (6.3-8.2) g/dL Albumin 3.0 L (3.5-5.0) g/dL - Imaging and Cardiology Chest x-ray: report reviewed, image reviewed Assessment and Plan Assessment: 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 Katz History of coronary artery disease Hypothyroidism Chronic ongoing tobacco dependence with recent cessation Migraine headaches History of TIA in 2020 with no residual deficits History of sleeve gastrectomy History of splenectomy Anxiety Depression Chronic back pain Plan: Chest x-ray shows right apical pneumothorax, intermittent airleak with coughing, right pleural chest tube placed to low continuous wall suction -20 cm H2O. Continue to monitor for airleak and right pneumothorax resolution. Encourage use of incentive spirometry 10 times every hour while awake. Continue to follow surgical pathology results. Continue to monitor daily labs and chest x-rays. Pain control per current as needed orders. Increase activity as tolerated. Out of bed for all meals. Ambulate as tolerated. Medical management other comorbidities per internal medicine and pulmonary critical care service recommendations. More recommendations to follow based on patient's clinical course. Time with Patient: Greater than 30
--- NOTE | 2024-01-28 14:12 | P.PN ---
Subjective Progress Note Date: 01/28/24 This is a 48-year-old female patient of Dr. Katz with past medical history of TIA, hypertension, left bundle branch block, COPD, obstructive sleep apnea, history of respiratory failure requiring tracheostomy, hypothyroidism, history of acute kidney injury requiring dialysis, tobacco use and dependence, history of sleeve gastrectomy. Patient was brought into the hospital underwent a robotic right upper lobectomy with lysis of adhesions on 01/25. She currently has a chest tube in place. She was noted to have heart rate up to the 130s. EKG revealed a sinus tachycardia at 132. She states she did have palpitations at the time and had some labored breathing as well. She states the palpitations have resolved but she still has labored breathing. She is currently on telemetry with a heart rate of 109. Chest x-ray: Postop changes right hemithorax. Chest tube in place. Laboratory studies: WBC 22.9, hemoglobin 13.2. Sodium 136, potassium 4.8, creatinine 0.67. TSH 0.325. Normal free T4. Home cardiac medications: Pravachol 40 mg daily. According to office note from 08/08/2023, patient was to be on metoprolol succinate 12.5 mg daily Echocardiogram performed 10/03/2023 revealed EF of 55 to 60%, mild pulmonary hypertension, no pericardial effusion. Normal aortic root and proximal ascen ding aorta. Lexiscan Cardiolite stress test performed in the office in 2020 revealed rate related bundle branch block at rate of 90 bpm, narrow QRS at heart rates below that. Likely retrograde continuation of the right bundle with a right ventricular PVC that normalizes the QRS. Holter monitor performed in the office revealed sinus mechanism is running between 67 and 128 with average of 82 bpm. No significant ectopy or arrhythmia. Progress note January 28, 2024 Patient is doing well from cardiovascular standpoint on Telemetry she is in sinus mechanism with heart rate around 100- 110 bpm Physical examination: Gen: This is a thin 48-year-old female resting in a chair appears to be anxious and uncomfortable. VS: reviewed HEENT: Head is atraumatic, normocephalic. Pupils equal, round. Sclerae is anicteric. NECK: Supple. No JVD. LUNGS: Diminished breath sounds on the right upper lobe. No intercostal retractions. HEART: Regular rate and rhythm. No murmur. ABDOMEN: Soft No tenderness. EXTREMITIES: No pedal edema. No calf tenderness. NEUROLOGICAL: Patient is awake, alert and oriented x3. Assessment: Sinus tachycardia and palpitations, physiological Squamous cell carcinoma of the right upper lobe status post right upper lobectomy and lysis of adhesions 01/25 Chronic hypoxic respiratory failure Respiratory bronchiolitis Hypertension Left bundle branch block COPD Obstructive sleep apnea Tobacco use and dependence, patient states she quit on 01/10 Plan: Continue patient's home cardiac medications Continue Lopressor 25 mg twice daily At this time patient is cleared from cardiovascular standpoint. Cardiology team will sign off. Please reconsult us in case of any ques. Objective - Vital Signs Vital signs: Vital Signs Temp 98 F 01/28/24 12:00 Pulse 101 H 01/28/24 12:00 Resp 16 01/28/24 12:00 BP 89/56 01/28/24 12:00 Pulse Ox 100 01/28/24 12:00 FiO2 Intake & Output 01/27/24 01/28/24 01/28/24 18:59 06:59 18:59 Intake Total 780 30 427 Output Total 900 Balance -120 30 427 Weight 48.5 kg Intake: IV 30 10 Invasive Line 1 10 Invasive Line 2 10 Invasive Line 4 10 10 Oral 780 417 Output: Urine 900 Other: Voiding Method Indwelling Catheter Toilet Toilet - Labs CBC & Chem 7: 01/28/24 05:57 01/28/24 05:57 Labs: Abnormal Lab Results - Last 24 Hours (Table) 01/28/24 01/28/24 Range/Units 05:57 05:57 WBC 21.6 H (3.8-10.6) k/uL RBC 3.63 L (3.80-5.40) m/uL MCV 102.2 H (80.0-100.0) fL Neutrophils # (Manual) 13.60 H (1.3-7.7) k/uL Monocytes # (Manual) 2.59 H (0-1.0) k/uL Eosinophils # (Manual) 1.08 H (0-0.7) k/uL Metamyelocytes # (Man) 0.22 H (0) k/uL Myelocytes # (Manual) 0.43 H (0) k/uL Chloride 108 H (98-107) mmol/L Total Protein 5.6 L (6.3-8.2) g/dL Albumin 3.0 L (3.5-5.0) g/dL
[2024-01-28] MEDS: MAGNESIUM SULFATE-D5W PMX 1 GM in DEXTROSE/WATER 1 100ML.BAG IVPB ONE (15:53)
[2024-01-28] MEDS: ACETAMINOPHEN TAB 500 MG TAB PO PRN (20:37)
--- NOTE | 2024-01-29 06:40 | XR ---
EXAMINATION TYPE: XR chest 1V portable DATE OF EXAM: 01/29/2024 COMPARISON: 01/28/2024 HISTORY: Postop right upper lobe lobectomy TECHNIQUE: Single frontal view of the chest is obtained. FINDINGS: No change in the position of the right chest tube and right apical pneumothorax. There is mild diffuse interstitial opacity possibly chronic in nature. There is no pleural effusion. The osseous structures are intact IMPRESSION: No change in the right apical pneumothorax and position of the right chest tube. No change in the dif fuse mild interstitial process, likely chronic. [facility], , 01/29/2024 6:37 AM
[2024-01-29 06:48] LABS: African American GFR (CKD) >90 (>60 ml/min/1.73 sqM); Anion Gap 6 mmol/L; Blood Urea Nitrogen 13 mg/dL (7-17); Carbon Dioxide 24 mmol/L (22-30); Chloride 108 mmol/L (98-107); Glucose 80 mg/dL (74-99); Magnesium 1.9 mg/dL (1.6-2.3); Non-African American GFR(CKD) >90 (>60 ml/min/1.73 sqM); Sodium 138 mmol/L (137-145)
[2024-01-29 06:52] LABS: Potassium 5.1 mmol/L (3.5-5.1)
[2024-01-29 06:55] LABS: HGB 13.9 gm/dL (11.4-16.0); MCH 33.5 pg (25.0-35.0); MCHC 33.2 g/dL (31.0-37.0); Macrocytosis Slight; Mean Platelet Volume 8.4; Platelet Count 483 k/uL (150-450); RBC 4.16 m/uL (3.80-5.40); RDW 14.3 % (11.5-15.5)
--- NOTE | 2024-01-29 08:39 | P.PN ---
Subjective Progress Note Date: 01/29/24 Principal diagnosis: 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. Past medical history significant for longstanding COPD with a preoperative FEV1 showing 1.33 L, 54% % of predic isadora value, asthma, obstructive sleep apnea, history of respiratory failure status post tracheostomy placement, history of renal failure, with dialysis, although her kidney function is back to normal, history of left bundle branch block followed by Dr. Katz, hypothyroidism, coronary artery disease, chronic ongoing tobacco dependence, chronic back pain, migraine headaches, history of TIA with no residual deficits in 2020, history of sleeve gastrectomy, history of splenectomy, anxiety and depression. POD #3 Robotic assisted thoracoscopic right upper lobectomy with lysis of adhesions and mediastinal lymph node dissection. The patient was seen and examined in follow-up today January 29, 2024 at her bedside on the third floor cardiac stepdown unit. She is currently sitting up to the bedside chair, is awake, alert, oriented x 3 and is in no acute apparent distress. The patient reports that she has been up ambulating in her room and tolerating well, denies any complaints of shortness of breath, pain or nausea at this time. She reports her pain is well-controlled on the current pain m edication regimen. Oxygen saturations are 98% on room air and she is achieving 750 mL on her incentive spirometry with encouragement. Surgical pathology results remain pending. Right pleural chest tube remains in place and is connected to bedside low continuous wall suction -20 cm H2O. Intermittent airleak is present with taking a deep breath and coughing. It was placed back to low continuous wall suction yesterday as her chest x-ray demonstrated a small right apical pneumothorax. Chest tube is draining thin serosanguineous drainage with 80 mL output in the last 24 hours. Remote telemetry is showing sinus tachycardia with a left bundle branch block, heart rate 116 bpm. She was starte d on metoprolol to tartrate 25 mg p.o. twice daily yesterday by cardiology. Laboratory and chest x-ray results reviewed. Objective - Vital Signs Vital signs: Vital Signs Temp 98.2 F 01/29/24 03:00 Pulse 118 H 01/29/24 08:15 Resp 20 01/29/24 03:00 BP 122/76 01/29/24 03:00 Pulse Ox 98 01/29/24 03:00 FiO2 Intake & Output 01/28/24 01/29/24 01/29/24 18:59 06:59 18:59 Intake Total 1197 560 Output Total 60 30 Balance 1137 530 Weight 49.2 kg Intake: IV 20 20 Invasive Line 4 20 20 Intake, IV Titration 100 Amount Magnesium Sulfate-D5w Pmx 100 1 gm In Dextrose/Water 1 100ml.bag @ 100 mls/hr IVPB ONCE ONE Rx#: [id number] Oral 1077 540 Output: Chest Tube Drainage 60 30 Chest Tube Right Lateral 60 30 Chest Other: Voiding Method Toilet Toilet # Voids 2 - Exam CONSTITUTIONAL: Appears comfortable, cooperative, no acute distress RESPIRATORY: Lungs sounds diminished bilaterally. Respirations symmetrical, nonlabored. Currently on room air with oxygen saturation 98%. Able to achieve 750 mL her on incentive spirometry. Strong cough. CARDIOVASCULAR: S1, S2 present. Regular rate and tachycardic rhythm, sinus tachycardia rhythm on telemetry, heart rate 116 bpm with left bundle branch block. Palpable peripheral pulses bilaterally. No edema present. No calf pain or tenderness noted. SCDs present. GASTROINTESTINAL: Abdomen soft, nontender, nondistended. Active bowel sounds present 4 quadrants. Tolerating diet. GENITOURINARY: Continues to void. INTEGUMENTARY: Skin is warm and dry with evidence of good perfusion. Right chest thoracic incision well approximated and covered with dry intact dressing. NEUROLOGIC: Cranial nerves II through XII intact MUSKULOSKELETAL: Able to move all extremities, strength equal bilaterally, gait normal PSYCHIATRIC: Alert and oriented to person place and time, appropriate affect, intact judgment and insight INVASIVE LINES AND TUBES: Right pleural chest tube present and is low continuous wall suction -20 cm H2O l, intermittent airleak is present with coughing. Right pleural chest tube with 80 mL thin serosanguineous drainage in the last 24 hours. - Allied health notes Allied health notes reviewed: nursing - Labs CBC & Chem 7: 01/29/24 05:43 01/29/24 05:43 Labs: Abnormal Lab Results - Last 24 Hours (Table) 01/29/24 01/29/24 Range/Units 05:43 05:43 WBC 22.0 H (3.8-10.6) k/uL MCV 101.0 H (80.0-100.0) fL Plt Count 483 H (150-450) k/uL Chloride 108 H (98-107) mmol/L Creatinine 0.50 L (0.52-1.04) mg/dL - Imaging and Cardiology Chest x-ray: report reviewed, image reviewed Assessment and Plan Assessment: 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 Katz History of coronary artery disease Hypothyroidism Chronic ongoing tobacco dependence with recent cessation Migraine headaches History of TIA in 2020 with no residual deficits History of sleeve gastrectomy History of splenectomy Anxiety Depression Chronic back pain Plan: Chest x-ray shows right apical pneumothorax, intermittent airleak with coughing, right pleural chest tube placed to waterseal. Continue to monitor for airleak and right pneumothorax resolution. Encourage use of incentive spirometry 10 times every hour while awake. Continue to follow surgical pathology results. Continue to monitor daily labs and chest x-rays. Pain control per current as needed orders. Increase activity as tolerated. Out of bed for all meals. Ambulate as tolerated. Medical management other comorbidities per internal medicine and pulmonary critical care service recommendations. Cardiology consult and recommendations noted and appreciated. Patient was started on metoprolol to tartrate 25 mg p.o. twice daily. More recommendations to follow based on patient's clinical course. Time with Patient: Greater than 30
[2024-01-29 09:12] LABS: Band Neutrophils % 2 %; Basophils # (M) 0.22 k/uL (0-0.2); Eosinophils # (M) 1.32 k/uL (0-0.7); Metamyelocytes # (M) 0.44 k/uL (0); Metamyelocytes % 2 %; Myelocytes # (M) 0.22 k/uL (0); Myelocytes % 1 %; Neutrophils % (M) 61 %; Nucleated Red Blood Cells 0 /100 WBC (0-0); Total Cells Counted 200
--- NOTE | 2024-01-29 11:16 | P.PN ---
Subjective Progress Note Date: 01/29/24 Principal diagnosis: Status post right upper lobectomy. 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 She was brought in today electively for a robotic assisted thoracoscopic right upper lobectomy with lysis of adhesions and mediastinal lymph node dissection. She is seen in consultation in the recovery room. She is currently awake. Maintaining good O2 saturations in the 90s on 2 L/min per nasal cannula. She has normal saline at 75 mL/h. Right sided chest tube remains in place to Pleur-evac. Chest x-ray reveals evidence of a postoperative changes. Glucose 103. Progress note dated January 27, 2024. 48-year-old female who is postoperative day #1, status post robotically assisted right upper lobectomy, for lung cancer. We saw the patient in the postanesthesia care unit yesterday. She has a history of squamous cell carcinoma involving the right upper lobe. It measured 2.7 cm in size. She had a elective robotic bronchoscopy, and subsequently, ended up with a right upper lobectomy, done robotically as well. She also had lysis of adhesions, and the mediastinal lymph node dissection. Currently, she is seen in room 358. She is on room air. She is not receiving any IV fluids. The chest tube is off suction. There is no leak noted. White count 22.9, hemoglobin 13.2, hematocrit 41.4, platelet count 470,000. Sodium 136, potassium 4.8, chlorides 109, CO2 24, BUN and creatinine are normal. Chest x-ray shows some postoperative changes, no pneumothorax present. Progress note dated January 28, 2024. 48-year-old female seen today in room 358. She is status post right upper lobectomy, postop day #2. The patient is on room air. No IV fluids. She does have a leak from the right sided chest tube. White count 21.6, hemoglobin 12.1, hematocrit 37.1, and platelet count 435,000. Sodium 138, potassium 4.2, chlorides 108, CO2 26, BUN 12, creatinine 0.53. Chest x-ray shows a right sided chest tube, unchanged in position, and a stable right apical pneumothorax. Progress note dated January 29, 2024. 48-year-old female seen in room 358. The patient is on room air. No fluids. The patient still has a right chest tube in. There was a leak. The patient is postop day #3, status post robotically assisted right upper lobectomy and mediastinal lymph node dissection, with lysis of adhesions. The patient does not have any complaints. White count 22, hemoglobin 13.9, hematocrit 42, platelet count 483,000. Sodium 138, potassium 5.1, chlorides 108, CO2 24, BUN 13, creatinine 0.5. Chest x-ray shows a persistent right apical pneumothorax. Chest tube remains in place. Objective - Vital Signs Vital signs: Vital Signs Temp 98.4 F 01/29/24 09:00 Pulse 116 H 01/29/24 09:00 Resp 20 01/29/24 09:00 BP 116/79 01/29/24 09:00 Pulse Ox 100 01/29/24 09:00 FiO2 Intake & Output 01/28/24 01/29/24 01/29/24 18:59 06:59 18:59 Intake Total 1197 560 260 Output Total 60 30 Balance 1137 530 260 Weight 49.2 kg Intake: IV 20 20 10 Invasive Line 4 20 20 10 Intake, IV Titration 100 Amount Magnesium Sulfate-D5w Pmx 100 1 gm In Dextrose/Water 1 100ml.bag @ 100 mls/hr IVPB ONCE ONE Rx#: [id number] Oral 1077 540 250 Output: Chest Tube Drainage 60 30 Chest Tube Right Lateral 60 30 Chest Other: Voiding Method Toilet Toilet Toilet # Voids 2 - Exam No acute distress, oriented 3. Currently on room air. HEENT examination is grossly unremarkable. Mucous membranes are moist. No oral lesions. Neck supple. Full range of motion. No adenopathy thyromegaly or neck vein distention. Cardiovascular examination reveals regular rhythm rate. S1-S2 normal. No S3 or S4. No discernible murmur noted. Lungs reveal minimal rhonchi. No wheezes or crackles. Breath sounds equal. Right sided chest tube noted. Abdomen soft bowel sounds are heard. No masses or tenderness. Extremities are intact. No cyanosis clubbing or edema. Skin is without rash or lesion. Neurologic examination is brief but nonfocal. - Labs CBC & Chem 7: 01/29/24 05:43 01/29/24 05:43 Labs: Abnormal Lab Results - Last 24 Hours (Table) 01/29/24 01/29/24 Range/Units 05:43 05:43 WBC 22.0 H (3.8-10.6) k/uL MCV 101.0 H (80.0-100.0) fL Plt Count 483 H (150-450) k/uL Neutrophils # (Manual) 13.80 H (1.3-7.7) k/uL Monocytes # (Manual) 2.20 H (0-1.0) k/uL Eosinophils # (Manual) 1.32 H (0-0.7) k/uL Basophils # (Manual) 0.22 H (0-0.2) k/uL Metamyelocytes # (Man) 0.44 H (0) k/uL Myelocytes # (Manual) 0.22 H (0) k/uL Chloride 108 H (98-107) mmol/L Creatinine 0.50 L (0.52-1.04) mg/dL Assessment and Plan Assessment: 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 Status post robotic assisted thoracoscopic right upper lobectomy with lysis of adhesions and mediastinal lymph node dissection. Postoperative day #3. Chronic hypoxic respiratory failure secondary to heart COPD. FEV1 value 66%. Chronic and ongoing tobacco dependence. 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 Hypertension. Hypothyroidism. Obstructive sleep apnea. Sleeve gastrectomy. Splenectomy in 2018. History of anxiety/depression. Plan: Plan dated January 27, 2024. The patient is seen today in room 358. She is postop day #1 status post robotically assisted right upper lobectomy, lysis of adhesions, and mediastinal lymph node dissection. The patient continues on room air. No IV fluids. Labs, x-rays, medications are reviewed. The chest tube is off of suction. There is no leak. Hopeful discharge in the near future. We will continue to follow make recommendations along the way. Plan dated January 28, 2024. The patient had an uneventful night. She is seen in room 358. She is postoperative day #2. The patient has a right sided chest tube in place. There is a leak. She also has a stable right apical pneumothorax. Labs, x-rays, and all medications are reviewed. We will continue to follow. Prognosis is guarded. Plan dated January 29, 2024. The patient is seen in room 358. She remains on room air. No IV fluids. Right chest tube remains in place. The patient does have a leak. Chest x-ray shows a persistent unchanged right apical pneumothorax. Labs, x-rays, and all medications are reviewed. Prognosis is guarded. Will continue to follow with patient, and make recommendations where appropriate. Time with Patient: Less than 30
[2024-01-29] MEDS: MAGNESIUM SULFATE-D5W PMX 1 GM in DEXTROSE/WATER 1 100ML.BAG IVPB ONE (11:36)
[2024-01-29] MEDS: HYDROmorphone 0.5 MG/0.5 ML SYRINGE IVP PRN (11:37)
--- NOTE | 2024-01-29 21:32 | PN ---
PROGRESS NOTE DATE OF SERVICE: 01/29/2024 CHIEF COMPLAINT: Right upper lobe mass. HISTORY OF PRESENT ILLNESS: This lady is doing well. Chest tube still in place. PHYSICAL EXAMINATION: CHEST: Breath sounds are heard on the right. CARDIAC: Normal. IMPRESSION: 1. Status post right upper lobectomy. 2. Chronic obstructive pulmonary disease. PLAN: Discharge is delayed. MMODL / IJN: [id number] /
--- NOTE | 2024-01-29 22:01 | PN ---
PROGRESS NOTE DATE OF SERVICE: 01/28/2024 CHIEF COMPLAINT: Status post right upper lobectomy. HISTORY OF PRESENT ILLNESS: This lady is doing well. Chest tube still in place. PHYSICAL EXAMINATION: CHEST: She has good breath sounds bilaterally. CARDIAC: Normal. ABDOMEN: Soft, nontender. IMPRESSION: Status post right upper lobectomy. PLAN: No change in management today. MMODL / IJN: [id number] /
[2024-01-30 07:02] LABS: HCT 37.8 % (34.0-46.0); HGB 12.3 gm/dL (11.4-16.0); MCH 32.4 pg (25.0-35.0); MCHC 32.4 g/dL (31.0-37.0); Macrocytosis Slight; Mean Platelet Volume 7.9; Platelet Count 469 k/uL (150-450); RBC 3.78 m/uL (3.80-5.40); RDW 14.4 % (11.5-15.5); WBC 20.3 k/uL (3.8-10.6)
[2024-01-30 07:10] LABS: African American GFR (CKD) >90 (>60 ml/min/1.73 sqM); Anion Gap 2 mmol/L; Blood Urea Nitrogen 18 mg/dL (7-17); Calcium 9.1 mg/dL (8.4-10.2); Carbon Dioxide 32 mmol/L (22-30); Chloride 104 mmol/L (98-107); Glucose 68 mg/dL (74-99); Magnesium 1.8 mg/dL (1.6-2.3); Non-African American GFR(CKD) >90 (>60 ml/min/1.73 sqM); Potassium 5.2 mmol/L (3.5-5.1); Sodium 138 mmol/L (137-145)
--- NOTE | 2024-01-30 07:45 | XR ---
EXAMINATION TYPE: XR chest 1V portable DATE OF EXAM: 01/30/2024 7:04 AM CLINICAL INDICATION: Female, 48 years old with history of s/p right upper lobectomy; [facility] COMPARISON: Chest radiographs from 01/29/2024 TECHNIQUE: XR chest 1V portable Frontal view of the chest. FINDINGS: Lungs/Pleura: Right thoracotomy tube with right apical pneumothorax There is no evidence of pleural e ffusion, focal consolidation, or left pneumothorax. Pulmonary vascularity: Unremarkable. Heart/mediastinum: Cardiomediastinal silhouette is unremarkable. Musculoskeletal: No acute osseous pathology. IMPRESSION: Right pleural, tube with small right pneumothorax, stable from prior. [facility], , 01/30/2024 7:42 AM
[2024-01-30 08:07] LABS: Band Neutrophils % 1 %; Eosinophils # (M) 1.02 k/uL (0-0.7); Lymphocytes # (M) 4.47 k/uL (1.0-4.8); Metamyelocytes % 1 %; Monocytes # (M) 2.23 k/uL (0-1.0); Myelocytes # (M) 0.41 k/uL (0); Myelocytes % 2 %; Neutrophils % (M) 59 %; Nucleated Red Blood Cells 0 /100 WBC (0-0); Total Cells Counted 200
[2024-01-30 08:08] LABS: Target Cells Present
--- NOTE | 2024-01-30 14:46 | P.PN ---
Subjective Progress Note Date: 01/30/24 01/30/2024, the patient is being seen for a follow-up. The patient is is currently on room air oxygen and the patient is ambulating in the hallway without any major difficulties. The patient is status post right upper lobe resection and the patient is postop day #4. She continues to have the chest tube on the right side of the chest. There is still some limited air leak and the patient's chest tube In place for today. No evidence of any pneumothorax. She is noted squamous cell carcinoma and she underwent robotic assisted thoracoscopic right upper lobe resection and mediastinal lymph node dissection. She is also known to have COPD. The white cell count is at 20 with a hemoglobin of 12.3 and a platelet count of 469. BUN 18 with a creatinine of 0.6 and a sodium level at 138. Remains on DuoNeb nebulized treatments [id number]. Dilaudid for pain control. Home medications have been resumed. She is also on Symbicort as maintenance. Objective - Vital Signs Vital signs: Vital Signs Temp 98.4 F 01/30/24 08:55 Pulse 123 H 01/30/24 08:55 Resp 17 01/30/24 08:55 BP 100/66 01/30/24 08:55 Pulse Ox 95 01/30/24 08:55 FiO2 Intake & Output 01/29/24 01/30/24 01/30/24 18:59 06:59 18:59 Intake Total 630 20 366 Output Total 30 Balance 630 -10 366 Weight 48.6 kg Intake: IV 20 20 10 Invasive Line 4 20 20 10 Oral 610 356 Output: Chest Tube Drainage 30 Chest Tube Right Lateral 30 Chest Other: Voiding Method Toilet Toilet Toilet - Exam CONSTITUTIONAL: Appears comfortable, cooperative, no acute distress RESPIRATORY: Lungs sounds diminished bilaterally. Respirations symmetrical, no nlabored. Currently on room air with oxygen saturation 98%. Able to achieve 750 mL her on incentive spirometry. Strong cough. CARDIOVASCULAR: S1, S2 present. Regular rate and tachycardic rhythm, sinus tachycardia Palpable peripheral pulses bilaterally. No edema present. No calf pain or tenderness noted. SCDs present. GASTROINTESTINAL: Abdomen soft, nontender, nondistended. Active bowel sounds present 4 quadrants. Tolerating diet. GENITOURINARY: Continues to void. INTEGUMENTARY: Skin is warm and dry with evidence of good perfusion. Right chest thoracic incision well approximated and covered with dry intact dressing. NEUROLOGIC: Cranial nerves II through XII intact MUSKULOSKELETAL: Able to move all extremities, strength equal bilaterally, gait normal PSYCHIATRIC: Alert and oriented to person place and time, appropriate affect, intact judgment and insight INVASIVE LINES AND TUBES: Right pleural [facility] and the patient has intermittent air leak - Labs CBC & Chem 7: 01/30/24 06:24 01/30/24 06:24 Labs: Abnormal Lab Results - Last 24 Hours (Table) 01/30/24 01/30/24 Range/Units 06:24 06:24 WBC 20.3 H (3.8-10.6) k/uL RBC 3.78 L (3.80-5.40) m/uL Plt Count 469 H (150-450) k/uL Neutrophils # (Manual) 12.10 H (1.3-7.7) k/uL Monocytes # (Manual) 2.23 H (0-1.0) k/uL Eosinophils # (Manual) 1.02 H (0-0.7) k/uL Metamyelocytes # (Man) 0.20 H (0) k/uL Myelocytes # (Manual) 0.41 H (0) k/uL Potassium 5.2 H (3.5-5.1) mmol/L Carbon Dioxide 32 H (22-30) mmol/L BUN 18 H (7-17) mg/dL Glucose 68 L (74-99) mg/dL Assessment and Plan Plan: 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 Status post robotic assisted thoracoscopic right upper lobectomy with lysis of adhesions and mediastinal lymph node dissection. Postoperative day #4, persistent air leak and the patient continues to have right-sided chest tube in place. No evidence of any pneumothorax Chronic hypoxic respiratory failure secondary to heart COPD. FEV1 value 66%. Chronic and ongoing tobacco dependence. 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 Hypertension. Hypothyroidism. Obstructive sleep apnea. Sleeve gastrectomy. Splenectomy in 2018. History of anxiety/depression. Plan Keep the chest tube to waterseal Incentive spirometer Increase mobility Patient currently on room air oxygen Continue DuoNeb nebulized treatments [id number] We will continue to follow
--- NOTE | 2024-01-30 18:09 | P.PN ---
Subjective Progress Note Date: 01/30/24 Principal diagnosis: 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. Past medical history significant for longstanding COPD with a preoperative FEV1 showing 1.33 L, 54% % of predic isadora value, asthma, obstructive sleep apnea, history of respiratory failure status post tracheostomy placement, history of renal failure, with dialysis, although her kidney function is back to normal, history of left bundle branch block followed by Dr. Katz, hypothyroidism, coronary artery disease, chronic ongoing tobacco dependence, chronic back pain, migraine headaches, history of TIA with no residual deficits in 2020, history of sleeve gastrectomy, history of splenectomy, anxiety and depression. POD #4 Robotic assisted thoracoscopic right upper lobectomy with lysis of adhesions and mediastinal lymph node dissection. The patient was seen and examined in follow-up today January 30, 2024 at her bedside on the cardiac stepdown unit. She is currently sitting up to the bedside chair, eating her breakfast, is awake, alert, oriented x 3 and is in no acute apparent distress. Denies any complaints of pain or shortness of breath at this time. Reports she feels much improved today than yesterday. She states she has been up ambulating in the cardiac stepdown unit hallway independently and tolerating well. Right pleural chest tube remains in place to waterseal, intermittent airleak present with coughing. Draining thin serosanguineous drainage with 70 mL of output in the last 24 hours. Oxygen saturations are 95% on room air and she is achieving 1000 mL on her incentive spirometry with encouragement. Remote telemetry showing sinus tachycardia heart rate 118 bpm. Chest X-Ray and laboratory results were reviewed. Objective - Vital Signs Vital signs: Vital Signs Temp 98.7 F 01/29/24 20:00 Pulse 122 H 01/30/24 04:00 Resp 18 01/30/24 04:00 BP 117/76 01/30/24 04:00 Pulse Ox 95 01/30/24 04:00 FiO2 Intake & Output 01/29/24 01/30/24 01/30/24 18:59 06:59 18:59 Intake Total 630 20 Output Total 30 Balance 630 -10 Weight 48.6 kg Intake: IV 20 20 Invasive Line 4 20 20 Oral 610 Output: Chest Tube Drainage 30 Chest Tube Right Lateral 30 Chest Other: Voiding Method Toilet Toilet - Exam CONSTITUTIONAL: Appears comfortable, cooperative, no acute distress RESPIRATORY: Lungs sounds diminished bilaterally. Respirations symmetrical, nonlabored. Currently on room air with oxygen saturation 95%. Able to achieve 1000 mL her on incentive spirometry. Strong cough. CARDIOVASCULAR: S1, S2 present. Regular rate and tachycardic rhythm, sinus tachycardia rhythm on telemetry, heart rate 118 bpm with left bundle branch block. Palpable peripheral pulses bilaterally. No edema present. No calf pain or tenderness noted. SCDs present. GASTROINTESTINAL: Abdomen soft, nontender, nondistended. Active bowel sounds present 4 quadrants. Tolerating diet. GENITOURINARY: Continues to void. INTEGUMENTARY: Skin is warm and dry with evidence of good perfusion. Right c hest thoracic incision well approximated and covered with dry intact dressing. NEUROLOGIC: Cranial nerves II through XII intact MUSKULOSKELETAL: Able to move all extremities, strength equal bilaterally, gait normal PSYCHIATRIC: Alert and oriented to person place and time, appropriate affect, intact judgment and insight INVASIVE LINES AND TUBES: Right pleural chest tube present and is currently on waterseal, intermittent airleak is present with coughing. Right pleural chest tube with 70 mL thin serosanguineous drainage in the last 24 hours. - Allied health notes Allied health notes reviewed: nursing - Labs CBC & Chem 7: 01/30/24 06:24 01/30/24 06:24 Labs: Abnormal Lab Results - Last 24 Hours (Table) 01/29/24 01/30/24 01/30/24 Range/Units 05:43 06:24 06:24 WBC 20.3 H (3.8-10.6) k/uL RBC 3.78 L (3.80-5.40) m/uL Plt Count 469 H (150-450) k/uL Neutrophils # (Manual) 13.80 H (1.3-7.7) k/uL Monocytes # (Manual) 2.20 H (0-1.0) k/uL Eosinophils # (Manual) 1.32 H (0-0.7) k/uL Basophils # (Manual) 0.22 H (0-0.2) k/uL Metamyelocytes # (Man) 0.44 H (0) k/uL Myelocytes # (Manual) 0.22 H (0) k/uL Potassium 5.2 H (3.5-5.1) mmol/L Carbon Dioxide 32 H (22-30) mmol/L BUN 18 H (7-17) mg/dL Glucose 68 L (74-99) mg/dL - Imaging and Cardiology Chest x-ray: report reviewed, image reviewed Assessment and Plan Assessment: 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 Katz History of coronary artery disease Hypothyroidism Chronic ongoing tobacco dependence with recent cessation Migraine headaches History of TIA in 2020 with no residual deficits History of sleeve gastrectomy History of splenectomy Anxiety Depression Chronic back pain Plan: Chest x-ray shows small right apical pneumothorax, intermittent airleak with coughing, right pleural chest tube placed to waterseal. Continue to monitor for airleak and right pneumothorax resolution. Encourage use of incentive spirometry 10 times every hour while awake. Continue to follow surgical pathology results. Continue to monitor daily labs and chest x-rays. Pain control per current as needed orders. Increase activity as tolerated. Out of bed for all meals. Ambulate as tolerated. Medical management other comorbidities per internal medicine and pulmonary critical care service recommendations. Cardiology consult and recommendations noted and appreciated. Patient was started on metoprolol to tartrate 25 mg p.o. twice daily. More recommendations to follow based on patient's clinical course. Time with Patient: Greater than 30
[2024-01-31 07:02] LABS: HCT 39.1 % (34.0-46.0); HGB 13.1 gm/dL (11.4-16.0); MCH 34.2 pg (25.0-35.0); MCHC 33.5 g/dL (31.0-37.0); MCV 102.1 fL (80.0-100.0); Macrocytosis Slight; Mean Platelet Volume 7.6; Platelet Count 483 k/uL (150-450); RBC 3.83 m/uL (3.80-5.40); RDW 14.3 % (11.5-15.5)
[2024-01-31 07:17] LABS: African American GFR (CKD) >90 (>60 ml/min/1.73 sqM); Anion Gap 7 mmol/L; Blood Urea Nitrogen 20 mg/dL (7-17); Calcium 9.5 mg/dL (8.4-10.2); Carbon Dioxide 31 mmol/L (22-30); Chloride 102 mmol/L (98-107); Glucose 105 mg/dL (74-99); Magnesium 1.7 mg/dL (1.6-2.3); Non-African American GFR(CKD) >90 (>60 ml/min/1.73 sqM); Potassium 4.9 mmol/L (3.5-5.1); Sodium 140 mmol/L (137-145)
--- NOTE | 2024-01-31 08:06 | XR ---
EXAMINATION TYPE: XR chest 1V portable DATE OF EXAM: 01/31/2024 7:25 AM CLINICAL INDICATION: Female, 48 years old with history of Postop right upper lobectomy; [facility] COMPARISON: Chest radiograph from one day prior. TECHNIQUE: XR chest 1V portable Frontal view of the chest. FINDINGS: Lungs/Pleura: Right thoracotomy tube with right apical pneumothorax There is no evidence of pleural e ffusion, focal consolidation, or left pneumothorax. Pulmonary vascularity: Unremarkable. Heart/mediastinum: Cardiomediastinal silhouette is unremarkable. Musculoskeletal: No acute osseous pathology. IMPRESSION: Right thoracotomy tube with small right pneumothorax, stable from prior. [facility], , 01/31/2024 8:03 AM
[2024-01-31 08:15] LABS: Band Neutrophils % 2 %; Eosinophils # (M) 1.12 k/uL (0-0.7); Lymphocytes # (M) 4.09 k/uL (1.0-4.8); Metamyelocytes # (M) 0.56 k/uL (0); Metamyelocytes % 3 %; Monocytes # (M) 2.42 k/uL (0-1.0); Myelocytes # (M) 0.19 k/uL (0); Myelocytes % 1 %; Neutrophils % (M) 55 %; Nucleated Red Blood Cells 1 /100 WBC (0-0); Total Cells Counted 200; WBC 18.6 k/uL (3.8-10.6)
--- NOTE | 2024-01-31 09:55 | P.PN ---
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 Past medical history significant for longstanding COPD with a preoperative FEV1 showing 1.33 L, 54% % of predic isadora value, asthma, obstructive sleep apnea, history of respiratory failure status post tracheostomy placement, history of renal failure, with dialysis, although her kidney function is back to normal, history of left bundle branch block followed by Dr. Katz, hypothyroidism, coronary artery disease, chronic ongoing tobacco dependence, chronic back pain, migraine headaches, history of TIA with no residual deficits in 2020, history of sleeve gastrectomy, history of splenectomy, anxiety and depression. POD #5 Robotic assisted thoracoscopic right upper lobectomy with lysis of adhesions and mediastinal lymph node dissection. The patient was seen and examined in follow-up today January 31, 2024 at her bedside in the third floor cardiac stepdown unit. She is currently sitting up to the bedside chair, is awake, alert, oriented x 3 and is in no acute apparent distress. Denies any complaints of pain or shortness of breath at this time. Reports she has been up ambulating in the cardiac stepdown unit hallway independently and tolerating well. Chest x-ray this morning continues to show a small right apical pneumothorax, right pleural chest tube continues to show an intermittent airleak with coughing and is draining thin scant serosanguineous drainage with 10 mL output in the last 24 hours. Oxygen saturations are 97% on room air and she is achieving 1000 mL on her incentive spirometry with encouragement. Remote telemetry is showing sinus tachycardia heart rate 103 bpm. She remains on metoprolol tartrate 25 mg p.o. twice daily. Her surgical pathology results remain pending, which we will continue to follow. Chest x-ray and laboratory results. Objective - Vital Signs Vital signs: Vital Signs Temp 98.2 F 01/31/24 07:00 Pulse 98 01/31/24 09:06 Resp 18 01/31/24 07:00 BP 124/82 01/31/24 07:00 Pulse Ox 98 01/31/24 07:47 FiO2 Intake & Output 01/30/24 01/31/24 01/31/24 18:59 06:59 18:59 Intake Total 850 20 350 Output Total 30 0 Balance 820 20 350 Weight 48 kg Intake: IV 20 20 Invasive Line 4 20 20 Oral 830 350 Output: Chest Tube Drainage 30 0 Chest Tube Right Lateral 30 0 Chest Other: Voiding Method Toilet Toilet - Exam CONSTITUTIONAL: Appears comfortable, cooperative, no acute distress RESPIRATORY: Lungs sounds diminished bilaterally. Respirations symmetrical, nonlabored. Currently on room air with oxygen saturation 97%. Able to achieve 1000 mL her on incentive spirometry. Strong cough. CARDIOVASCULAR: S1, S2 present. Regular rate and tachycardic rhythm, sinus tachycardia rhythm on telemetry, heart rate 103 bpm with left bundle branch block. Palpable peripheral pulses bilaterally. No edema present. No calf pain or tenderness noted. SCDs present. GASTROINTESTINAL: Abdomen soft, nontender, nondistended. Active bowel sounds present 4 quadrants. Tolerating diet. GENITOURINARY: Continues to void. INTEGUMENTARY: Skin is warm and dry with evidence of good perfusion. Right chest thoracic incision well approximated and covered with dry intact dressing. NEUROLOGIC: Cranial nerves II through XII intact MUSKULOSKELETAL: Able to move all extremities, strength equal bilaterally, gait normal PSYCHIATRIC: Alert and oriented to person place and time, appropriate affect, intact judgment and insight INVASIVE LINES AND TUBES: Right pleural chest tube present and is currently on waterseal, intermittent airleak is present with coughing. Right pleural chest tube with 10 mL thin serosanguineous drainage in the last 24 hours. - Allied health notes Allied health notes reviewed: nursing - Labs CBC & Chem 7: 01/31/24 06:10 01/31/24 06:10 Labs: Abnormal Lab Results - Last 24 Hours (Table) 01/31/24 01/31/24 Range/Units 06:10 06:10 WBC 18.6 H (3.8-10.6) k/uL MCV 102.1 H (80.0-100.0) fL Plt Count 483 H (150-450) k/uL Neutrophils # (Manual) 10.60 H (1.3-7.7) k/uL Monocytes # (Manual) 2.42 H (0-1.0) k/uL Eosinophils # (Manual) 1.12 H (0-0.7) k/uL Metamyelocytes # (Man) 0.56 H (0) k/uL Myelocytes # (Manual) 0.19 H (0) k/uL Nucleated RBCs 1 H (0-0) /100 WBC Carbon Dioxide 31 H (22-30) mmol/L BUN 20 H (7-17) mg/dL Glucose 105 H (74-99) mg/dL - Imaging and Cardiology Chest x-ray: report reviewed, image reviewed Assessment and Plan Assessment: 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 Katz History of coronary artery disease Hypothyroidism Chronic ongoing tobacco dependence with recent cessation Migraine headaches History of TIA in 2020 with no residual deficits History of sleeve gastrectomy History of splenectomy Anxiety Depression Chronic back pain Plan: Chest x-ray shows small right apical pneumothorax, intermittent airleak with coughing, right pleural chest tube placed to waterseal. Continue to monitor for airleak and right pneumothorax resolution. Encourage use of incentive spirometry 10 times every hour while awake. Continue to follow surgical pathology results. Continue to monitor daily labs and chest x-rays. Pain control per current as needed orders. Increase activity as tolerated. Out of bed for all meals. Ambulate as tolerated. Medical management other comorbidities per internal medicine and pulmonary critical care service recommendations. Continue metoprolol to tartrate 25 mg p.o. twice daily. More recommendations to follow based on patient's clinical course. Time with Patient: Greater than 30
--- NOTE | 2024-01-31 14:39 | P.PN ---
Subjective Progress Note Date: 01/31/24 01/30/2024, the patient is being seen for a follow-up. The patient is is currently on room air oxygen and the patient is ambulating in the hallway without any major difficulties. The patient is status post right upper lobe resection and the patient is postop day #4. She continues to have the chest tube on the right side of the chest. There is still some limited air leak and the patient's chest tube In place for today. No evidence of any pneumothorax. She is noted squamous cell carcinoma and she underwent robotic assisted thoracoscopic right upper lobe resection and mediastinal lymph node dissection. She is also known to have COPD. The white cell count is at 20 with a hemoglobin of 12.3 and a platelet count of 469. BUN 18 with a creatinine of 0.6 and a sodium level at 138. Remains on DuoNeb nebulized treatments [id number]. Dilaudid for pain control. Home medications have been resumed. She is also on Symbicort as maintenance. On today's evaluation of 01/31/2024, the patient is being seen for a follow-up. No specific complaints and the patient remains on room air oxygen. There is intermittent air leak in the right-sided chest tube which is currently to waterseal. The output is serosanguineous in the order of 10 cc over the past 24 hours. The patient remains on room air oxygen. The patient is using incentive spirometer and pulling approximately 8000. She is ambulating. No significant complaints. She is on metoprolol 25 mg twice a day and she has some mild sinus tachycardia. Otherwise, the white cell count of 18 with a hemoglobin of 13 and a platelet count of 483. The BUN is 20 mg from 0.7 and a sodium level is at 140 with a potassium level of 4.9. No other significant events overnight. We decided to keep the chest tube in for another 24 hours. Objective - Vital Signs Vital signs: Vital Signs Temp 98.3 F 01/31/24 10:45 Pulse 89 01/31/24 10:45 Resp 18 01/31/24 10:45 BP 102/66 01/31/24 10:45 Pulse Ox 96 01/31/24 10:45 FiO2 Intake & Output 01/30/24 01/31/24 01/31/24 18:59 06:59 18:59 Intake Total 850 20 370 Output Total 30 0 0 Balance 820 20 370 Weight 48 kg Intake: IV 20 20 20 Invasive Line 4 20 20 20 Oral 830 350 Output: Chest Tube Drainage 30 0 0 Chest Tube Right Lateral 30 0 0 Chest Other: Voiding Method Toilet Toilet Toilet - Exam CONSTITUTIONAL: Appears comfortable, cooperative, no acute distress RESPIRATORY: Lungs sounds diminished bilaterally. Respirations symmetrical, nonlabored. Currently on room air with oxygen saturation 98%. Able to achieve 750 mL her on incentive spirometry. Strong cough. CARDIOVASCULAR: S1, S2 present. Regular rate and tachycardic rhythm, sinus tachycardia Palpable peripheral pulses bilaterally. No edema present. No calf pain or tenderness noted. SCDs present. GASTROINTESTINAL: Abdomen soft, nontender, nondistended. Active bowel sounds present 4 quadrants. Tolerating diet. GENITOURINARY: Continues to void. INTEGUMENTARY: Skin is warm and dry with evidence of good perfusion. Right chest thoracic incision well approximated and covered with dry intact dressing. NEUROLOGIC: Cranial nerves II through XII intact MUSKULOSKELETAL: Able to move all extremities, strength equal bilaterally, gait normal PSYCHIATRIC: Alert and oriented to person place and time, appropriate affect, intact judgment and insight INVASIVE LINES AND TUBES: Right pleural chest tube present to waterseal and the patient has intermittent air leak - Labs CBC & Chem 7: 01/31/24 06:10 01/31/24 06:10 Labs: Abnormal Lab Results - Last 24 Hours (Table) 01/31/24 01/31/24 Range/Units 06:10 06:10 WBC 18.6 H (3.8-10.6) k/uL MCV 102.1 H (80.0-100.0) fL Plt Count 483 H (150-450) k/uL Neutrophils # (Manual) 10.60 H (1.3-7.7) k/uL Monocytes # (Manual) 2.42 H (0-1.0) k/uL Eosinophils # (Manual) 1.12 H (0-0.7) k/uL Metamyelocytes # (Man) 0.56 H (0) k/uL Myelocytes # (Manual) 0.19 H (0) k/uL Nucleated RBCs 1 H (0-0) /100 WBC Carbon Dioxide 31 H (22-30) mmol/L BUN 20 H (7-17) mg/dL Glucose 105 H (74-99) mg/dL Assessment and Plan Plan: 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 Status post robotic assisted thoracoscopic right upper lobectomy with lysis of adhesions and mediastinal lymph node dissection. Postoperative day # 5, persistent air leak and the patient continues to have right-sided chest tube in place. No evidence of any pneumothorax, and a right-sided chest tube is attached to waterseal. No evidence of any pneumothorax. Chronic hypoxic respiratory failure secondary to heart COPD. FEV1 value 66%. Chronic and ongoing tobacco dependence. 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 Hypertension. Hypothyroidism. Obstructive sleep apnea. Sleeve gastrectomy. Splenectomy in 2018. History of anxiety/depression. Leukocytosis, improving Plan Keep the chest tube to waterseal Incentive spirometer Increase mobility Patient currently on room air oxygen Continue DuoNeb nebulized treatments [id number] We will continue to follow
[2024-01-31] MEDS: MAGNESIUM SULFATE-D5W PMX 1 GM in DEXTROSE/WATER 1 100ML.BAG IVPB ONE (16:18)
--- NOTE | 2024-01-31 22:14 | PN ---
PROGRESS NOTE DATE OF SERVICE: 01/30/2024 CHIEF COMPLAINT: Status post right upper lobectomy. HISTORY OF PRESENT ILLNESS: This lady is doing well, but she still has a leak. Chest tube has not been removed. She denies any difficulty with fever, chills, shortness of breath, abdominal pain, etc. PHYSICAL EXAMINATION: CHEST: Breath sounds are heard bilaterally. Chest tube still present in the right hemithorax. CARDIAC: Normal. IMPRESSION: 1. Status post right upper lobectomy. 2. Chronic obstructive pulmonary disease. PLAN: Continue to follow with Surgery with hopes that the leak will close and her tube can be removed. MMODL / IJN: [id number] /
[2024-02-01 06:48] LABS: African American GFR (CKD) >90 (>60 ml/min/1.73 sqM); Anion Gap 0 mmol/L; Blood Urea Nitrogen 16 mg/dL (7-17); Calcium 9.1 mg/dL (8.4-10.2); Carbon Dioxide 32 mmol/L (22-30); Chloride 106 mmol/L (98-107); Magnesium 1.8 mg/dL (1.6-2.3); Non-African American GFR(CKD) >90 (>60 ml/min/1.73 sqM); Potassium 4.4 mmol/L (3.5-5.1); Sodium 138 mmol/L (137-145)
[2024-02-01 06:50] LABS: Glucose 44 mg/dL (74-99)
[2024-02-01 06:56] LABS: Glucose,Whole Blood 87 mg/dL (70-110)
[2024-02-01 07:07] LABS: HCT 37.2 % (34.0-46.0); HGB 11.7 gm/dL (11.4-16.0); Hypochromasia Slight; MCH 32.3 pg (25.0-35.0); MCHC 31.4 g/dL (31.0-37.0); MCV 102.7 fL (80.0-100.0); Macrocytosis Slight; Mean Platelet Volume 7.3; Platelet Count 488 k/uL (150-450); RBC 3.62 m/uL (3.80-5.40); RDW 13.8 % (11.5-15.5); WBC 15.8 k/uL (3.8-10.6)
--- NOTE | 2024-02-01 07:31 | XR ---
EXAMINATION TYPE: XR chest 1V portable DATE OF EXAM: 02/01/2024 7:11 AM CLINICAL INDICATION: Female, 48 years old with history of Postop right upper lobectomy; [facility] COMPARISON: Chest radiograph from one day prior. TECHNIQUE: XR chest 1V portable Frontal view of the chest. FINDINGS: Lungs/Pleura: Right thoracotomy tube with right apical pneumothorax There is no evidence of pleural e ffusion, focal consolidation, or left pneumothorax. Pulmonary vascularity: Unremarkable. Heart/mediastinum: Cardiomediastinal silhouette is unremarkable. Musculoskeletal: No acute osseous pathology. IMPRESSION: Right thoracotomy tube with small right pneumothorax, stable from prior. [facility], , 02/01/2024 7:29 AM
[2024-02-01 08:11] LABS: Band Neutrophils % 1 %; Eosinophils # (M) 2.05 k/uL (0-0.7); Lymphocytes # (M) 3.48 k/uL (1.0-4.8); Metamyelocytes # (M) 0.32 k/uL (0); Metamyelocytes % 2 %; Neutrophils % (M) 50 %; Nucleated Red Blood Cells 0 /100 WBC (0-0); Total Cells Counted 100
[2024-02-01] MEDS: MAGNESIUM SULFATE-D5W PMX 1 GM in DEXTROSE/WATER 1 100ML.BAG IVPB ONE (08:56)
--- NOTE | 2024-02-01 08:58 | P.PN ---
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 Past medical history significant for longstanding COPD with a preoperative FEV1 showing 1.33 L, 54% % of predic isadora value, asthma, obstructive sleep apnea, history of respiratory failure status post tracheostomy placement, history of renal failure, with dialysis, although her kidney function is back to normal, history of left bundle branch block followed by Dr. Katz, hypothyroidism, coronary artery disease, chronic ongoing tobacco dependence, chronic back pain, migraine headaches, history of TIA with no residual deficits in 2020, history of sleeve gastrectomy, history of splenectomy, anxiety and depression. POD #6 Robotic assisted thoracoscopic right upper lobectomy with lysis of adhesions and mediastinal lymph node dissection. The patient was seen and examined today February 01, 2024 at her bedside on the third floor cardiac stepdown unit. She is currently sitting up to the bedside edge, eating her breakfast, is awake, alert, oriented x 3 and is in no acute apparent distress. Patient denies any complaints of pain or shortness of breath at this time. States she feels congested this morning. Oxygen saturations are 95% on room air and she is achieving 1000 mL on her incentive spirometry with encouragement. Right pleural chest tube remains in place and is to waterseal, intermittent airleak is present with coughing, draining thin serosanguineous drainage with 10 mL output in the last 24 hours. Remote telemetry is showing normal sinus rhythm heart rate 96 bpm. She continues on metoprolol to tartrate 25 mg p.o. twice daily. She reports she has been up ambulating in the cardiac stepdown unit hallway independently and tolerating well. Laboratory and chest x-ray results reviewed. WBC count is trending down and is 15.8 today. Surgical pathology results have been reported and will be discussed with the patient today. Objective - Vital Signs Vital signs: Vital Signs Temp 97.5 F L 02/01/24 07:15 Pulse 99 02/01/24 07:32 Resp 18 02/01/24 07:32 BP 122/84 02/01/24 07:15 Pulse Ox 98 02/01/24 07:15 FiO2 Intake & Output 01/31/24 02/01/24 02/01/24 18:59 06:59 18:59 Intake Total 380 360 Output Total 0 10 Balance 380 350 Weight 48 kg 50 kg Intake: IV 30 Invasive Line 4 30 Oral 350 360 Output: Chest Tube Drainage 0 10 Chest Tube Right Lateral 0 10 Chest Other: Voiding Method Toilet Toilet Toilet - Exam CONSTITUTIONAL: Appears comfortable, cooperative, no acute distress RESPIRATORY: Lungs sounds diminished bilaterally. Respirations symmetrical, nonlabored. Currently on room air with oxygen saturation 95%. Able to achieve 1000 mL her on incentive spirometry. Strong cough. CARDIOVASCULAR: S1, S2 present. Regular rate and tachycardic rhythm, normal sinus rhythm on telemetry, heart rate 96 bpm with left bundle branch block. Palpable peripheral pulses bilaterally. No edema present. No calf pain or tenderness noted. SCDs present. GASTROINTESTINAL: Abdomen soft, nontender, nondistended. Active bowel sounds present 4 quadrants. Tolerating diet. GENITOURINARY: Continues to void. INTEGUMENTARY: Skin is warm and dry with evidence of good perfusion. Right chest thoracic incision well approximated and covered with dry intact dressing. NEUROLOGIC: Cranial nerves II through XII intact MUSKULOSKELETAL: Able to move all extremities, strength equal bilaterally, gait normal PSYCHIATRIC: Alert and oriented to person place and time, appropriate affect, intact judgment and insight INVASIVE LINES AND TUBES: Right pleural chest tube present and is currently on waterseal, intermittent airleak is present with coughing. Right pleural chest tube with 10 mL thin serosanguineous drainage in the last 24 hours. - Allied health notes Allied health notes reviewed: nursing - Labs CBC & Chem 7: 02/01/24 06:04 02/01/24 06:04 Labs: Abnormal Lab Results - Last 24 Hours (Table) 02/01/24 02/01/24 Range/Units 06:04 06:04 WBC 15.8 H (3.8-10.6) k/uL RBC 3.62 L (3.80-5.40) m/uL MCV 102.7 H (80.0-100.0) fL Plt Count 488 H (150-450) k/uL Neutrophils # (Manual) 8.00 H (1.3-7.7) k/uL Monocytes # (Manual) 1.90 H (0-1.0) k/uL Eosinophils # (Manual) 2.05 H (0-0.7) k/uL Metamyelocytes # (Man) 0.32 H (0) k/uL Carbon Dioxide 32 H (22-30) mmol/L Glucose 44 L* (74-99) mg/dL - Imaging and Cardiology Chest x-ray: report reviewed, image reviewed Assessment and Plan Assessment: 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 Katz History of coronary artery disease Hypothyroidism Chronic ongoing tobacco dependence with recent cessation Migraine headaches History of TIA in 2020 with no residual deficits History of sleeve gastrectomy History of splenectomy Anxiety Depression Chronic back pain Persistent air leak from right pleural chest tube greater than 5 days, expected Plan: Chest x-ray continues to show small right apical pneumothorax, intermittent airleak with coughing, continue right pleural chest tube to waterseal. Continue to monitor for airleak and right pneumothorax resolution. Encourage use of incentive spirometry 10 times every hour while awake. Surgical pathology results, have been reported and will be discussed with the patient today. Continue to monitor daily labs and chest x-rays. Pain control per current as needed orders. Increase activity as tolerated. Out of bed for all meals. Ambulate as to lerated. Medical management other comorbidities per internal medicine and pulmonary critical care service recommendations. Continue metoprolol to tartrate 25 mg p.o. twice daily. More recommendations to follow based on patient's clinical course. Time with Patient: Greater than 30
--- NOTE | 2024-02-01 16:27 | P.PN ---
Subjective Progress Note Date: 02/01/24 01/30/2024, the patient is being seen for a follow-up. The patient is is currently on room air oxygen and the patient is ambulating in the hallway without any major difficulties. The patient is status post right upper lobe resection and the patient is postop day #4. She continues to have the chest tube on the right side of the chest. There is still some limited air leak and the patient's chest tube In place for today. No evidence of any pneumothorax. She is noted squamous cell carcinoma and she underwent robotic assisted thoracoscopic right upper lobe resection and mediastinal lymph node dissection. She is also known to have COPD. The white cell count is at 20 with a hemoglobin of 12.3 and a platelet count of 469. BUN 18 with a creatinine of 0.6 and a sodium level at 138. Remains on DuoNeb nebulized treatments [id number]. Dilaudid for pain control. Home medications have been resumed. She is also on Symbicort as maintenance. On today's evaluation of 01/31/2024, the patient is being seen for a follow-up. No specific complaints and the patient remains on room air oxygen. There is intermittent air leak in the right-sided chest tube which is currently to waterseal. The output is serosanguineous in the order of 10 cc over the past 24 hours. The patient remains on room air oxygen. The patient is using incentive spirometer and pulling approximately 8000. She is ambulating. No significant complaints. She is on metoprolol 25 mg twice a day and she has some mild sinus tachycardia. Otherwise, the white cell count of 18 with a hemoglobin of 13 and a platelet count of 483. The BUN is 20 mg from 0.7 and a sodium level is at 140 with a potassium level of 4.9. No other significant events overnight. We decided to keep the chest tube in for another 24 hours. On 02/01/2024, the patient is being seen for a follow-up. The patient has no specific complaints. She continues to ambulate. There is still persistent air leak in the right-sided chest tube along with a small right-sided pneumothorax. Nevertheless, the patient remains on room air oxygen. No significant chest pain. No respiratory distress. Final pathology was consistent with squamous cell carcinoma and the patient and a stage Ic N0 M0 disease and the postsurgical pathology, and staging were discussed with the patient. Otherwise, the patient is doing well. Clinically and hemodynamically stable. Right-sided chest will be kept in place based on the presence of a right-sided pneumothorax and persistent air leak. Objective - Vital Signs Vital signs: Vital Signs Temp 98.4 F 02/01/24 10:51 Pulse 84 02/01/24 11:12 Resp 18 02/01/24 10:51 BP 114/71 02/01/24 10:51 Pulse Ox 94 L 02/01/24 10:51 FiO2 Intake & Output 01/31/24 02/01/24 02/01/24 18:59 06:59 18:59 Intake Total 380 360 180 Output Total 0 10 Balance 380 350 180 Weight 48 kg 50 kg Intake: IV 30 Invasive Line 4 30 Oral 350 360 180 Output: Chest Tube Drainage 0 10 Chest Tube Right Lateral 0 10 Chest Other: Voiding Method Toilet Toilet Toilet - Exam CONSTITUTIONAL: Appears comfortable, cooperative, no acute distress RESPIRATORY: Lungs sounds diminished bilaterally. Respirations symmetrical, nonlabored. Currently on room air with oxygen saturation 98%. Able to achieve 750 mL her on incentive spirometry. Strong cough. CARDIOVASCULAR: S1, S2 present. Regular rate and tachycardic rhythm, sinus tachycardia Palpable peripheral pulses bilaterally. No edema present. No calf pain or tenderness noted. SCDs present. GASTROINTESTINAL: Abdomen soft, nontender, nondistended. Active bowel sounds present 4 quadrants. Tolerating diet. GENITOURINARY: Continues to void. INTEGUMENTARY: Skin is warm and dry with evidence of good perfusion. Right chest thoracic incision well approximated and covered with dry intact dressing. NEUROLOGIC: Cranial nerves II through XII intact MUSKULOSKELETAL: Able to move all extremities, strength equal bilaterally, gait normal PSYCHIATRIC: Alert and oriented to person place and time, appropriate affect, intact judgment and insight INVASIVE LINES AND TUBES: Right pleural chest tube present to waterseal and the patient has intermittent air leak - Labs CBC & Chem 7: 02/01/24 06:04 02/01/24 06:04 Labs: Abnormal Lab Results - Last 24 Hours (Table) 02/01/24 02/01/24 Range/Units 06:04 06:04 WBC 15.8 H (3.8-10.6) k/uL RBC 3.62 L (3.80-5.40) m/uL MCV 102.7 H (80.0-100.0) fL Plt Count 488 H (150-450) k/uL Neutrophils # (Manual) 8.00 H (1.3-7.7) k/uL Monocytes # (Manual) 1.90 H (0-1.0) k/uL Eosinophils # (Manual) 2.05 H (0-0.7) k/uL Metamyelocytes # (Man) 0.32 H (0) k/uL Carbon Dioxide 32 H (22-30) mmol/L Glucose 44 L* (74-99) mg/dL Assessment and Plan Plan: 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 Status post robotic assisted thoracoscopic right upper lobectomy with lysis of adhesions and mediastinal lymph node dissection. Postoperative day # 6, persistent air leak and the patient continues to have right-sided chest tube in place. No evidence of any pneumothorax, and a right-sided chest tube is attached to waterseal. No evidence of any pneumothorax. Postsurgical pathologic findings are consistent with stage Ic N0 M0 disease Chronic hypoxic respiratory failure secondary to heart COPD. FEV1 value 66%. Chronic and ongoing tobacco dependence. 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 Hypertension. Hypothyroidism. Obstructive sleep apnea. Sleeve gastrectomy. Splenectomy in 2018. History of anxiety/depression. Leukocytosis, improving Plan Keep the chest tube to waterseal Incentive spirometer Increase mobility Patient currently on room air oxygen Daily chest x-rays No plans to remove the chest tube today Continue DuoNeb nebulized treatments [id number] We will continue to follow
[2024-02-01] MEDS: HYDROmorphone 1 MG/ML 1 ML SYRINGE IVP PRN (20:59)
--- NOTE | 2024-02-02 04:10 | PN ---
PROGRESS NOTE DATE OF SERVICE: 01/31/2024 CHIEF COMPLAINT: Status post right upper lobectomy. HISTORY OF PRESENT ILLNESS: This lady still has a chest tube in place due to a persistent pulmonary leak. She had no fever or chills. PHYSICAL EXAMINATION: VITAL SIGNS: Normal. Breath sounds are heard bilaterally. Chest tube is present on the right chest. CARDIAC: Normal. ABDOMEN: Soft, nontender. IMPRESSION: Status post right upper lobectomy with air leak. PLAN: Continue to follow for any medical issues. She is doing fairly well. MMODL / IJN: [id number] /
--- NOTE | 2024-02-02 04:26 | PN ---
PROGRESS NOTE DATE OF SERVICE: 02/01/2024 CHIEF COMPLAINT: Status post right upper lobectomy with pulmonary leak. HISTORY OF PRESENT ILLNESS: This lady is doing reasonably well. She is having a fair amount of pain. Chest tube still in place. Biopsy revealed that her lesion was malignant. PHYSICAL EXAMINATION: CHEST: Breath sounds are heard bilaterally. CARDIAC: Normal. IMPRESSION: 1. Status post right upper lobectomy for carcinoma. 2. Pulmonary leak. PLAN: Increase her Dilaudid dose. MMODL / IJN: [id number] /
[2024-02-02 06:59] LABS: HCT 41.4 % (34.0-46.0); HGB 12.8 gm/dL (11.4-16.0); Hypochromasia Moderate; MCH 32.6 pg (25.0-35.0); MCHC 30.9 g/dL (31.0-37.0); MCV 105.5 fL (80.0-100.0); Macrocytosis Moderate; Platelet Count 559 k/uL (150-450); RBC 3.92 m/uL (3.80-5.40); RDW 13.8 % (11.5-15.5); WBC 19.4 k/uL (3.8-10.6)
[2024-02-02 07:26] LABS: African American GFR (CKD) >90 (>60 ml/min/1.73 sqM); Anion Gap 4 mmol/L; Blood Urea Nitrogen 13 mg/dL (7-17); Calcium 9.5 mg/dL (8.4-10.2); Carbon Dioxide 32 mmol/L (22-30); Chloride 103 mmol/L (98-107); Glucose 105 mg/dL (74-99); Magnesium 1.8 mg/dL (1.6-2.3); Non-African American GFR(CKD) >90 (>60 ml/min/1.73 sqM); Potassium 4.9 mmol/L (3.5-5.1); Sodium 139 mmol/L (137-145)
[2024-02-02] MEDS: oxyCODONE-APAP 10-325MG 1 EACH TAB PO PRN (07:43)
[2024-02-02] MEDS: SENNOSIDES-DOCUSATE SODIUM 1 EACH TAB PO SCH ×2 (07:43→19:51)
[2024-02-02] MEDS: METOPROLOL TARTRATE 50 MG TAB PO SCH (07:43)
--- NOTE | 2024-02-02 08:05 | XR ---
EXAMINATION TYPE: XR chest 1V portable DATE OF EXAM: 02/02/2024 7:05 AM CLINICAL INDICATION: Female, 48 years old with history of Postop RU lobectomy; [facility] COMPARISON: Chest radiograph from one day prior. TECHNIQUE: XR chest 1V portable Frontal view of the chest. FINDINGS: Lungs/Pleura: Right thoracotomy tube with right apical pneumothorax There is no evidence of pleural e ffusion, focal consolidation, or left pneumothorax. Pulmonary vascularity: Unremarkable. Heart/mediastinum: Cardiomediastinal silhouette is unremarkable. Musculoskeletal: No acute osseous pathology. IMPRESSION: Right thoracotomy tube with small right pneumothorax, stable from prior. [facility], , 02/02/2024 8:03 AM
--- NOTE | 2024-02-02 09:55 | P.PN ---
Subjective Progress Note Date: 02/02/24 Principal diagnosis: 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. Previous medical history of longstanding COPD, asthma, obstructive sleep apnea, respiratory failure status post tracheostomy placement, chronic ongoing tobacco dependence, renal failure with dialysis with resolution, coronary artery disease, left bundle branch block followed by Dr. Katz, hypothyroidism, chronic back pain on chronic narcotics, migraine headaches, TIA in 2020 with no residual deficits, sleeve gastrectomy, splenectomy, anxiety and depression. POD #7 Robotic assisted thoracoscopic right upper lobectomy with lysis of adhesions and mediastinal lymph node dissection. The patient was seen and examined with Dr. Betancourt sitting up on the cardiac stepdown unit in no acute distress. Right pleural chest tube remains to waterseal, there does remain a tiny intermittent air leak with expiration and forceful coughing. Patient remains on room air, able to achieve 1000 mL on incentive spirometry. Chest x-ray reviewed. She remains in sinus rhythm, hemodynamically stable. Does continue to complain of chronic pain and asking for her Dilaudid to be increased even though she has not taken her max amount of oral medications. States that she has been ambulatory around the hallways without difficulty. No other new concerns. Objective - Vital Signs Vital signs: Vital Signs Temp 98.0 F 02/02/24 07:49 Pulse 104 H 02/02/24 07:49 Resp 16 02/02/24 07:49 BP 123/85 02/02/24 07:49 Pulse Ox 99 02/02/24 07:49 FiO2 Intake & Output 02/01/24 02/02/24 02/02/24 18:59 06:59 18:59 Intake Total 360 118 118 Output Total 10 Balance 360 108 118 Weight 48.3 kg Intake: Oral 360 118 118 Output: Chest Tube Drainage 10 Chest Tube Right Lateral 10 Chest Other: Voiding Method Toilet Toilet Toilet - Exam CONSTITUTIONAL: Appears comfortable, cooperative, no acute distress RESPIRATORY: Lungs sounds diminished bilaterally, right greater than left. Respirations even, nonlabored. Currently on room air with oxygen saturation 99%. Able to achieve 1000 mL on incentive spirometry. Strong cough. CARDIOVASCULAR: S1, S2 present. Regular rate and rhythm, sinus rhythm on telemetry. Palpable peripheral pulses bilaterally. No edema present. No calf pain or tenderness noted GASTROINTESTINAL: Abdomen soft, nontender, nondistended. Active bowel sounds present 4 quadrants. Tolerating diet. Positive bowel movement per patient even though not documented GENITOURINARY: Continues to void clear, yellow urine, not documented in [employer] INTEGUMENTARY: Skin is warm and dry. Thoracic incision well approximated and covered with dry intact dressing. NEUROLOGIC: Cranial nerves II through XII intact MUSKULOSKELETAL: Able to move all extremities, strength equal bilaterally, gait normal PSYCHIATRIC: Alert and oriented to person place and time, appropriate affect, intact judgment and insight INVASIVE LINES AND TUBES: Right pleural chest tubes present to [facility], tiny intermittent air leak present with expiration and forceful coughing, 50 mL drainage in the last 24 hours - Allied health notes Allied health notes reviewed: nursing - Labs CBC & Chem 7: 02/02/24 06:36 02/02/24 06:36 Labs: Abnormal Lab Results - Last 24 Hours (Table) 02/02/24 02/02/24 Range/Units 06:36 06:36 WBC 19.4 H (3.8-10.6) k/uL MCV 105.5 H (80.0-100.0) fL MCHC 30.9 L (31.0-37.0) g/dL Plt Count 559 H (150-450) k/uL Carbon Dioxide 32 H (22-30) mmol/L Glucose 105 H (74-99) mg/dL - Imaging and Cardiology Chest x-ray: image reviewed Assessment and Plan Assessment: 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, status post robotic assisted thoracoscopic right upper lobectomy, final pathology consistent with 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 Katz Hypothyroidism Chronic back pain on chronic narcotics TIA in 2020 with no residual deficits Anxiety and depression. Plan: [facility] monitor for airleak resolution. Patient was given the option of staying inpatient until airleak resolves versus going home with Heimlich valve Encourage incentive spirometry use 10 times every hour while awake Increase activity, ambulate as tolerated Will monitor daily labs and x-rays Beta-katheryn increased Bronchodilators per pulmonology Pain control per current medication regimen. IV Dilaudid should not be increased, patient encouraged to utilize oral pain medication as she will not be able to go home with IV Dilaudid. Home dose of Percocet increased even though she was not taking next dose will prior More recommendations to follow
[2024-02-02] MEDS: MAGNESIUM OXIDE 400 MG TAB PO SCH (10:15)
[2024-02-02] MEDS: HYDROmorphone 1 MG/ML 1 ML SYRINGE IVP PRN (11:01)
--- NOTE | 2024-02-02 17:33 | P.PN ---
Subjective Progress Note Date: 02/02/24 01/30/2024, the patient is being seen for a follow-up. The patient is is currently on room air oxygen and the patient is ambulating in the hallway without any major difficulties. The patient is status post right upper lobe resection and the patient is postop day #4. She continues to have the chest tube on the right side of the chest. There is still some limited air leak and the patient's chest tube In place for today. No evidence of any pneumothorax. She is noted squamous cell carcinoma and she underwent robotic assisted thoracoscopic right upper lobe resection and mediastinal lymph node dissection. She is also known to have COPD. The white cell count is at 20 with a hemoglobin of 12.3 and a platelet count of 469. BUN 18 with a creatinine of 0.6 and a sodium level at 138. Remains on DuoNeb nebulized treatments [id number]. Dilaudid for pain control. Home medications have been resumed. She is also on Symbicort as maintenance. On today's evaluation of 01/31/2024, the patient is being seen for a follow-up. No specific complaints and the patient remains on room air oxygen. There is intermittent air leak in the right-sided chest tube which is currently to waterseal. The output is serosanguineous in the order of 10 cc over the past 24 hours. The patient remains on room air oxygen. The patient is using incentive spirometer and pulling approximately 8000. She is ambulating. No significant complaints. She is on metoprolol 25 mg twice a day and she has some mild sinus tachycardia. Otherwise, the white cell count of 18 with a hemoglobin of 13 and a platelet count of 483. The BUN is 20 mg from 0.7 and a sodium level is at 140 with a potassium level of 4.9. No other significant events overnight. We decided to keep the chest tube in for another 24 hours. On 02/01/2024, the patient is being seen for a follow-up. The patient has no specific complaints. She continues to ambulate. There is still persistent air leak in the right-sided chest tube along with a small right-sided pneumothorax. Nevertheless, the patient remains on room air oxygen. No significant chest pain. No respiratory distress. Final pathology was consistent with squamous cell carcinoma and the patient and a stage Ic N0 M0 disease and the postsurgical pathology, and staging were discussed with the patient. Otherwise, the patient is doing well. Clinically and hemodynamically stable. Right-sided chest will be kept in place based on the presence of a right-sided pneumothorax and persistent air leak. On 02/02/2024, patient is being seen for a follow-up. The patient continues to have a right apical pneumothorax on today's chest x-ray and the patient also has ongoing air leak as noted on the chest tube. She remains asymptomatic. No significant shortness of breath. No chest pain. She is on room air oxygen with a pulse ox of 96%. No chest pain. The white cell count at 19.4 with a hemoglobin of 12.8 and a platelet count of 559. BUN 13 with a creatinine 0.6 and a sodium levels at 139. The patient continues to ambulate. The chest tube will be kept in place as long as there is an ongoing air leak and a persistent pneumothorax on today's chest x-ray. She is using incentive spirometer. She is pulling approximately thousand. Cardiac rhythm is sinus. No other significant events overnight. The right chest tube is to waterseal for now. Objective - Vital Signs Vital signs: Vital Signs Temp 98.0 F 02/02/24 07:49 Pulse 104 H 02/02/24 07:49 Resp 16 02/02/24 07:49 BP 123/85 02/02/24 07:49 Pulse Ox 99 02/02/24 07:49 FiO2 Intake & Output 02/01/24 02/02/24 02/02/24 18:59 06:59 18:59 Intake Total 360 118 118 Output Total 10 Balance 360 108 118 Weight 48.3 kg Intake: Oral 360 118 118 Output: Chest Tube Drainage 10 Chest Tube Right Lateral 10 Chest Other: Voiding Method Toilet Toilet Toilet - Exam CONSTITUTIONAL: Appears comfortable, cooperative, no acute distress RESPIRATORY: Lungs sounds diminished bilaterally. Respirations symmetrical, nonlabored. Currently on room air with oxygen saturation 98%. Able to achieve 750 mL her on incentive spirometry. Strong cough. CARDIOVASCULAR: S1, S2 present. Regular rate and tachycardic rhythm, sinus tachycardia Palpable peripheral pulses bilaterally. No edema present. No calf pain or tenderness noted. SCDs present. GASTROINTESTINAL: Abdomen soft, nontender, nondistended. Active bowel sounds present 4 quadrants. Tolerating diet. GENITOURINARY: Continues to void. INTEGUMENTARY: Skin is warm and dry with evidence of good perfusion. Right chest thoracic incision well approximated and covered with dry intact dressing. NEUROLOGIC: Cranial nerves II through XII intact MUSKULOSKELETAL: Able to move all extremities, strength equal bilaterally, gait normal PSYCHIATRIC: Alert and oriented to person place and time, appropriate affect, intact judgment and insight INVASIVE LINES AND TUBES: [facility] and the patient has intermittent air leak - Labs CBC & Chem 7: 02/02/24 06:36 02/02/24 06:36 Labs: Abnormal Lab Results - Last 24 Hours (Table) 02/02/24 02/02/24 Range/Units 06:36 06:36 WBC 19.4 H (3.8-10.6) k/uL MCV 105.5 H (80.0-100.0) fL MCHC 30.9 L (31.0-37.0) g/dL Plt Count 559 H (150-450) k/uL Carbon Dioxide 32 H (22-30) mmol/L Glucose 105 H (74-99) mg/dL Assessment and Plan Plan: 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 Status post robotic assisted thoracoscopic right upper lobectomy with lysis of adhesions and mediastinal lymph node dissection. Postoperative day # 7, persistent air leak and the patient continues to have right-sided chest tube in place. No evidence of any pneumothorax, and a right-sided chest tube is attached to waterseal. No evidence of any pneumothorax. Postsurgical pathologic findings are consistent with stage Ic N0 M0 disease. Persistent right-sided pneumothorax is seen on today's chest x-ray along with ongoing airleak and chest tube is to waterseal. Chronic hypoxic respiratory failure secondary to heart COPD. FEV1 value 66%. Chronic and ongoing tobacco dependence. 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 Hypertension. Hypothyroidism. Obstructive sleep apnea. Sleeve gastrectomy. Splenectomy in 2018. History of anxiety/depression. Leukocytosis, improving Plan Keep the chest tube to waterseal Incentive spirometer Increase mobility Patient currently on room air oxygen Daily chest x-rays No plans to remove the chest tube today Continue DuoNeb nebulized treatments [id number] We will continue to follow
--- NOTE | 2024-02-03 01:05 | PN ---
PROGRESS NOTE DATE OF SERVICE: 02/02/2024 CHIEF COMPLAINT: Right upper lobe neoplasm. HISTORY OF PRESENT ILLNESS: This lady is doing fairly well, but still could leak. Other than that, there has been no change. PHYSICAL EXAMINATION: CHEST: Clear. CARDIAC: Normal. ABDOMEN: Soft, nontender. IMPRESSION: 1. Status post right upper lobectomy for carcinoma. 2. Postoperative pulmonary leak. PLAN: No change in her management today. MMODL / IJN: [id number] /
--- NOTE | 2024-02-03 07:28 | XR ---
EXAMINATION TYPE: XR chest 2V DATE OF EXAM: 02/03/2024 6:22 AM CLINICAL INDICATION: Female, 48 years old with history of Post lobectomy; [facility] COMPARISON: Chest radiograph from one day prior. TECHNIQUE: XR chest 2V Frontal view of the chest. FINDINGS: Lungs/Pleura: Right thoracotomy tube with right apical pneumothorax There is no evidence of pleural e ffusion, focal consolidation, or left pneumothorax. Pulmonary vascularity: Unremarkable. Heart/mediastinum: Cardiomediastinal silhouette is unremarkable. Musculoskeletal: No acute osseous pathology. IMPRESSION: Right thoracotomy tube with small right pneumothorax, stable from prior. [facility], , 02/03/2024 7:25 AM
--- NOTE | 2024-02-03 07:57 | P.PN ---
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 Previous medical history of longstanding COPD, asthma, obstructive sleep apnea, respiratory failure status post tracheostomy placement, chronic ongoing tobacco dependence, renal failure with dialysis with resolution, coronary artery disease, left bundle branch block followed by Dr. Katz, hypothyroidism, chronic back pain on chronic narcotics, migraine headaches, TIA in 2020 with no residual deficits, sleeve gastrectomy, splenectomy, anxiety and depression. POD #8 Robotic assisted thoracoscopic right upper lobectomy with lysis of adhesions and mediastinal lymph node dissection. Persistent airleak greater than 5 days, somewhat expected due to significant lung disease and chronic tobacco dependence The patient was seen and examined sitting up on the cardiac stepdown unit in no acute distress. Right pleural chest tube remains to waterseal, there does remain a tiny intermittent air leak with expiration and forceful coughing. Patient remains on room air, able to achieve 1000 mL on incentive spirometry. Chest x-ray reviewed, stable. She remains in sinus rhythm, hemodynamically stable. Does continue to complain of chronic pain. Discussed with patient yesterday the possibility of sending her home with a Heimlich valve to allow her to continue to recover at home instead of in the hospital, however patient would need to be free from IV Dilaudid use as she cannot go home with IV Dilaudid. Discussed if she can go 24 hours without any IV Dilaudid would be willing to send her home with a Heimlich valve, patient sounded agreeable, however she did use Dilaudid 3 times in the last 24 hours, therefore needs to stay in the hospital until her airleak resolves. States that she has been ambulatory around the hallways without difficulty. No other new concerns. Objective - Vital Signs Vital signs: Vital Signs Temp 97.5 F L 02/02/24 20:00 Pulse 101 H 02/03/24 04:00 Resp 16 02/03/24 04:00 BP 105/72 02/03/24 04:00 Pulse Ox 96 02/03/24 04:00 FiO2 Intake & Output 02/02/24 02/03/24 02/03/24 18:59 06:59 18:59 Intake Total 354 540 Output Total 600 410 Balance -246 130 Weight 48.6 kg Intake: Oral 354 540 Output: Chest Tube Drainage 10 Chest Tube Right Lateral 10 Chest Urine 600 400 Other: Voiding Method Toilet Toilet # Voids 2 3 # Bowel Movements 1 - Exam CONSTITUTIONAL: Appears comfortable, cooperative, no acute distress RESPIRATORY: Lungs sounds diminished bilaterally with faint expiratory wheeze heard throughout. Respirations even, nonlabored. Currently on room air with oxygen saturation 96%. Able to achieve 1000 mL on incentive spirometry. Strong cough. CARDIOVASCULAR: S1, S2 present. Regular rate and rhythm, sinus rhythm on telemetry. Palpable peripheral pulses bilaterally. No edema present. No calf pain or tenderness noted GASTROINTESTINAL: Abdomen soft, nontender, nondistended. Active bowel sounds present 4 quadrants. Tolerating diet. Positive bowel movement 02/02 GENITOURINARY: Continues to void clear, yellow urine, 1000 mL output in the last 24 hours INTEGUMENTARY: Skin is warm and dry. Thoracic incision well approximated and covered with dry intact dressing. NEUROLOGIC: Cranial nerves II through XII intact MUSKULOSKELETAL: Able to move all extremities, strength equal bilaterally, gait normal PSYCHIATRIC: Alert and oriented to person place and time, appropriate affect, intact judgment and insight INVASIVE LINES AND TUBES: Right pleural chest tubes present to waterseal, tiny intermittent air leak present with expiration and forceful coughing, 10 mL drainage in the last 24 hours - Allied health notes Allied health notes reviewed: nursing - Labs CBC & Chem 7: 02/02/24 06:36 02/02/24 06:36 - Imaging and Cardiology Chest x-ray: report reviewed, image reviewed Assessment and Plan Assessment: 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 Katz Hypothyroidism Chronic back pain on chronic narcotics TIA in 2020 with no residual deficits Anxiety and depression. Plan: Continue right pleural chest tube to waterseal, monitor for airleak resolution Encourage incentive spirometry use 10 times every hour while awake Increase activity, ambulate as tolerated Will monitor daily labs and x-rays Bronchodilators per pulmonology Pain control per current medication regimen. IV Dilaudid should not be increased, patient encouraged to utilize oral pain medication as she will not be able to go home with IV Dilaudid More recommendations to follow
--- NOTE | 2024-02-03 10:14 | P.PN ---
Subjective This is a pleasant 48 [id number] female with past medical history of multiple medical problems including lung cancer, other chronic medical problems including COPD, CVA, hypothyroidism, GERD and hypertension She presents with respiratory distress. She found to have right pneumothorax status post right thoracostomy. This morning she is sitting in the bed age, she feels comfortable with no significant dyspnea but still complaining of from her pain on the right side where thoracostomy tube is. Fluid collection is about 650 mL through her h ydropneumothorax. She is afebrile. Mildly tachycardic, blood pressure stable She has mild white cell count elevation at 19,000, glucose yesterday was 44 but corrected to 105 and this morning she is asymptomatic. I checked her medication she is not on diabetes medication Objective - Vital Signs Vital signs: Vital Signs Temp 97.7 F 02/03/24 08:00 Pulse 110 H 02/03/24 08:45 Resp 15 02/03/24 08:00 BP 112/79 02/03/24 08:00 Pulse Ox 100 02/03/24 08:00 FiO2 Intake & Output 02/02/24 02/03/24 02/03/24 18:59 06:59 18:59 Intake Total 354 540 Output Total 600 410 Balance -246 130 Weight 48.6 kg Intake: Oral 354 540 Output: Chest Tube Drainage 10 Chest Tube Right Lateral 10 Chest Urine 600 400 Other: Voiding Method Toilet Toilet Toilet # Voids 2 3 # Bowel Movements 1 - Exam GENERAL: The patient is alert and oriented x3, not in any acute distress. Well developed, well nourished. HEENT: Pupils are round and equally reacting to light. EOMI. No scleral icterus. No conjunctival pallor. Normocephalic, atraumatic. No pharyngeal erythema. No thyromegaly. CARDIOVASCULAR: S1 and S2 present. No murmurs, rubs, or gallops. -PULMONARY: Chest is clear to auscultation, no wheezing , no crackles. Right side chest tube in place ABDOMEN: Soft, nontender, nondistended, normoactive bowel sounds. No palpable organomegaly. MUSCULOSKELETAL: No joint swelling or deformity. EXTREMITIES: No cyanosis, clubbing, or pedal edema. NEUROLOGICAL: Gross neurological examination did not reveal any focal deficits. SKIN: No rashes. no petechiae. - Labs CBC & Chem 7: 02/02/24 06:36 02/02/24 06:36 Assessment and Plan Assessment: Right pneumothorax status post right thoracostomy Squamous cell carcinoma of the right l upper lobe status post robotic assisted right upper lobe lobectomy Hypertension History of GERD COPD with no exacerbation Hypothyroidism Plan: Continue with chest tube management Patient is followed closely by pulmonary and cardiothoracic surgery team Continue with pain management Labs and medication were reviewed.. Continue same treatment. Continue with sym ptomatic treatment. Resume home medication. Monitor labs and vitals. DVT and GI prophylaxis. Further recommendations as per clinical course of the patient DVT prophylaxis: Subcutaneous heparin GI Prophylaxis: ppi Prognosis is guarded
--- NOTE | 2024-02-03 13:31 | P.PN ---
Subjective Progress Note Date: 02/03/24 01/30/2024, the patient is being seen for a follow-up. The patient is is currently on room air oxygen and the patient is ambulating in the hallway without any major difficulties. The patient is status post right upper lobe resection and the patient is postop day #4. She continues to have the chest tube on the right side of the chest. There is still some limited air leak and the patient's chest tube In place for today. No evidence of any pneumothorax. She is noted squamous cell carcinoma and she underwent robotic assisted thoracoscopic right upper lobe resection and mediastinal lymph node dissection. She is also known to have COPD. The white cell count is at 20 with a hemoglobin of 12.3 and a platelet count of 469. BUN 18 with a creatinine of 0.6 and a sodium level at 138. Remains on DuoNeb nebulized treatments [id number]. Dilaudid for pain control. Home medications have been resumed. She is also on Symbicort as maintenance. On today's evaluation of 01/31/2024, the patient is being seen for a follow-up. No specific complaints and the patient remains on room air oxygen. There is intermittent air leak in the right-sided chest tube which is currently to waterseal. The output is serosanguineous in the order of 10 cc over the past 24 hours. The patient remains on room air oxygen. The patient is using incentive spirometer and pulling approximately 8000. She is ambulating. No significant complaints. She is on metoprolol 25 mg twice a day and she has some mild sinus tachycardia. Otherwise, the white cell count of 18 with a hemoglobin of 13 and a platelet count of 483. The BUN is 20 mg from 0.7 and a sodium level is at 140 with a potassium level of 4.9. No other significant events overnight. We decided to keep the chest tube in for another 24 hours. On 02/01/2024, the patient is being seen for a follow-up. The patient has no specific complaints. She continues to ambulate. There is still persistent air leak in the right-sided chest tube along with a small right-sided pneumothorax. Nevertheless, the patient remains on room air oxygen. No significant chest pain. No respiratory distress. Final pathology was consistent with squamous cell carcinoma and the patient and a stage Ic N0 M0 disease and the postsurgical pathology, and staging were discussed with the patient. Otherwise, the patient is doing well. Clinically and hemodynamically stable. Right-sided chest will be kept in place based on the presence of a right-sided pneumothorax and persistent air leak. On 02/02/2024, patient is being seen for a follow-up. The patient continues to have a right apical pneumothorax on today's chest x-ray and the patient also has ongoing air leak as noted on the chest tube. She remains asymptomatic. No significant shortness of breath. No chest pain. She is on room air oxygen with a pulse ox of 96%. No chest pain. The white cell count at 19.4 with a hemoglobin of 12.8 and a platelet count of 559. BUN 13 with a creatinine 0.6 and a sodium levels at 139. The patient continues to ambulate. The chest tube will be kept in place as long as there is an ongoing air leak and a persistent pneumothorax on today's chest x-ray. She is using incentive spirometer. She is pulling approximately thousand. Cardiac rhythm is sinus. No other significant events overnight. The right chest tube is to waterseal for now. 02/03/2024, the patient is being seen for a follow-up. Some intermittent air leak is still seen on today's chest tube evaluation. The pneumothorax on the right side is significantly dropped in size and the patient has a tiny 5 to 10% right apical pneumothorax on today's chest x-ray. She remains on room air oxygen. She is ambulating. She is still requiring Percocet for pain control. Her pain is under adequate control for now. She is on [facility]Neb [facility]. No new labs from today. Most recent labs from yesterday were essentially within normal limits. Objective - Vital Signs Vital signs: Vital Signs Temp 97.7 F 02/03/24 08:00 Pulse 110 H 02/03/24 08:45 Resp 15 02/03/24 08:00 BP 112/79 02/03/24 08:00 Pulse Ox 100 02/03/24 08:00 FiO2 Intake & Output 02/02/24 02/03/24 02/03/24 18:59 06:59 18:59 Intake Total 354 540 Output Total 600 410 Balance -246 130 Weight 48.6 kg Intake: Oral 354 540 Output: Chest Tube Drainage 10 Chest Tube Right Lateral 10 Chest Urine 600 400 Other: Voiding Method Toilet Toilet Toilet # Voids 2 3 # Bowel Movements 1 - Exam CONSTITUTIONAL: Appears comfortable, cooperative, no acute distress RESPIRATORY: Lungs sounds diminished bilaterally. Respirations symmetrical, nonlabored. Currently on room air with oxygen saturation 98%. Able to achieve 750 mL her on incentive spirometry. Strong cough. CARDIOVASCULAR: S1, S2 present. Regular rate and tachycardic rhythm, sinus tachycardia Palpable peripheral pulses bilaterally. No edema present. No calf pain or tenderness noted. SCDs present. GASTROINTESTINAL: Abdomen soft, nontender, nondistended. Active bowel sounds present 4 quadrants. Tolerating diet. GENITOURINARY: Continues to void. INTEGUMENTARY: Skin is warm and dry with evidence of good perfusion. Right chest thoracic incision well approximated and covered with dry intact dressing. NEUROLOGIC: Cranial nerves II through XII intact MUSKULOSKELETAL: Able to move all extremities, strength equal bilaterally, gait normal PSYCHIATRIC: Alert and oriented to person place and time, appropriate affect, intact judgment and insight INVASIVE LINES AND TUBES: Right pleural chest tube present to waterseal and the patient has intermittent air leak - Labs CBC & Chem 7: 02/01/24 06:36 10 06:36 Assessment and Plan Plan: 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 Status post robotic assisted thoracoscopic right upper lobectomy with lysis of adhesions and mediastinal lymph node dissection. Postoperative day # 8, persistent air leak and the patient continues to have right-sided chest tube in place. No evidence of any pneumothorax, and a right-sided chest tube is attached to waterseal. No evidence of any pneumothorax. Postsurgical pathologic findings are consistent with stage Ic N0 M0 disease. Right apical pneumothorax, diminished in size and the patient continues to have some intermittent airleak through the chest tube while on waterseal. Chronic hypoxic respiratory failure secondary to heart COPD. FEV1 value 66%. Chronic and ongoing tobacco dependence. 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 Hypertension. Hypothyroidism. Obstructive sleep apnea. Sleeve gastrectomy. Splenectomy in 2018. History of anxiety/depression. Leukocytosis, improving Plan The pneumothorax is improving Keep the chest tube to waterseal, the airleak is intermittent Incentive spirometer Increase mobility Patient currently on room air oxygen Daily chest x-rays No plans to remove the chest tube today Continue DuoNeb nebulized treatments [id number] We will continue to follow
[2024-02-03 20:07] LABS: Glucose,Whole Blood 63 mg/dL (70-110)
[2024-02-03 20:29] LABS: Glucose,Whole Blood 70 mg/dL (70-110)
--- NOTE | 2024-02-04 06:50 | XR ---
EXAMINATION TYPE: XR chest 2V DATE OF EXAM: 02/04/2024 COMPARISON: 02/03/2024 HISTORY: Postlobectomy TECHNIQUE: Frontal and lateral views of the chest are obtained. FINDINGS: There is a thoracotomy tube unchanged in position. There is a small apical pneumothorax which is esse ntially stable. There is no lung consolidation. There is no pleural effusion. The heart and pulmonary vasculature are normal. Interstitial markings are mildly diffusely prominent unchanged compared to previous and most likely mild chronic interstitial change. IMPRESSION: 1. Right thoracotomy tube in small right apical pneumothorax stable compared to previous. 2. No new abnormalities seen. [facility], , 02/04/2024 6:48 AM
[2024-02-04 07:17] LABS: HCT 38.6 % (34.0-46.0); HGB 12.6 gm/dL (11.4-16.0); MCH 33.3 pg (25.0-35.0); MCHC 32.7 g/dL (31.0-37.0); MCV 101.8 fL (80.0-100.0); Macrocytosis Slight; Mean Platelet Volume 7.3; Platelet Count 509 k/uL (150-450); RBC 3.79 m/uL (3.80-5.40); RDW 14.1 % (11.5-15.5); WBC 18.7 k/uL (3.8-10.6)
--- NOTE | 2024-02-04 07:19 | P.PN ---
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 Previous medical history of longstanding COPD, asthma, obstructive sleep apnea, respiratory failure status post tracheostomy placement, chronic ongoing tobacco dependence, renal failure with dialysis with resolution, left bundle branch block followed by Dr. Katz, hypothyroidism, chronic back pain on chronic narcotics, migraine headaches, TIA in 2020 with no residual deficits, sleeve gastrectomy, splenectomy, anxiety and depression. POD #9 Robotic assisted thoracoscopic right upper lobectomy with lysis of adhesions and mediastinal lymph node dissection. Persistent airleak greater than 5 days, somewhat expected due to significant lung disease and chronic tobacco dependence The patient was seen and examined sitting up on the cardiac stepdown unit in no acute distress. Right pleural chest tube remains to waterseal, there does remain a tiny intermittent air leak with forceful coughing. Patient remains on room air, able to achieve 1000 mL on incentive spirometry. Chest x-ray reviewed, stable. She remains in sinus rhythm to sinus tach, hemodynamically stable. Does continue to complain of chronic pain. States that she has been ambulatory around the hallways without difficulty. Asking for Sudafed D this morning for some postnasal drip, the patient already takes Claritin every night and Sudafed may increase her heart rate further. She also asked about some numbness around the chest wall, explained that this is normal as she had rib blocks completed. No other new concerns. Objective - Vital Signs Vital signs: Vital Signs Temp 98.7 F 02/04/24 04:00 Pulse 110 H 02/04/24 04:00 Resp 18 02/04/24 04:00 BP 117/78 02/04/24 04:00 Pulse Ox 95 02/04/24 04:00 FiO2 Intake & Output 02/03/24 02/04/24 02/04/24 18:59 06:59 18:59 Intake Total 1080 Output Total 0 Balance 1080 0 Weight 49.9 kg Intake: Oral 1080 Output: Chest Tube Drainage 0 Chest Tube Right Lateral 0 Chest Other: Voiding Method Toilet Toilet - Exam CONSTITUTIONAL: Appears comfortable, cooperative, no acute distress RESPIRATORY: Lungs sounds diminished bilaterally with faint expiratory wheeze heard throughout. Respirations even, nonlabored. Currently on room air with oxygen saturation 95%. Able to achieve 1000 mL on incentive spirometry. Strong cough. CARDIOVASCULAR: S1, S2 present. Regular rate and rhythm, sinus rhythm to sinus tach on telemetry. Palpable peripheral pulses bilaterally. No edema present. No calf pain or tenderness noted GASTROINTESTINAL: Abdomen soft, nontender, nondistended. Active bowel sounds present 4 quadrants. Tolerating diet. Positive bowel movement 02/02 GENITOURINARY: Continues to void clear, yellow urine, amount not documented INTEGUMENTARY: Skin is warm and dry. Thoracic incision well approximated and covered with dry intact dressing. NEUROLOGIC: Cranial nerves II through XII intact MUSKULOSKELETAL: Able to move all extremities, strength equal bilaterally, gait normal PSYCHIATRIC: Alert and oriented to person place and time, appropriate affect, intact judgment and insight INVASIVE LINES AND TUBES: Right pleural chest tubes present to waterseal, tiny intermittent air leak present with forceful coughing, no drainage in the last 24 hours - Allied health notes Allied health notes reviewed: nursing - Labs CBC & Chem 7: 02/04/24 06:51 02/04/24 06:51 Labs: Abnormal Lab Results - Last 24 Hours (Table) 02/03/24 Range/Units 19:57 POC Glucose (mg/dL) 63 L (70-110) mg/dL - Imaging and Cardiology Chest x-ray: report reviewed, image reviewed Assessment and Plan Assessment: 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 Katz Hypothyroidism Chronic back pain on chronic narcotics TIA in 2020 with no residual deficits Anxiety and depression. Plan: Continue right pleural chest tube to waterseal, monitor for airleak resolution Encourage incentive spirometry use 10 times every hour while awake Increase activity, ambulate as tolerated Will monitor daily labs and x-rays Bronchodilators per pulmonology Pain control per current medication regimen. IV Dilaudid should not be increased, patient encouraged to utilize oral pain medication as she will not be able to go home with IV Dilaudid More recommendations to follow
[2024-02-04 07:28] LABS: African American GFR (CKD) >90 (>60 ml/min/1.73 sqM); Anion Gap 6 mmol/L; Blood Urea Nitrogen 18 mg/dL (7-17); Calcium 8.9 mg/dL (8.4-10.2); Carbon Dioxide 28 mmol/L (22-30); Chloride 104 mmol/L (98-107); Glucose 84 mg/dL (74-99); Magnesium 1.8 mg/dL (1.6-2.3); Non-African American GFR(CKD) >90 (>60 ml/min/1.73 sqM); Potassium 4.1 mmol/L (3.5-5.1); Sodium 138 mmol/L (137-145)
[2024-02-04] MEDS: MAGNESIUM SULFATE-D5W PMX 1 GM in DEXTROSE/WATER 1 100ML.BAG IVPB SCH (08:17)
[2024-02-04] MEDS: METOPROLOL TARTRATE 50 MG TAB PO SCH (08:17)
--- NOTE | 2024-02-04 14:07 | P.PN ---
Subjective This is a pleasant 48 [id number] female with past medical history of multiple medical problems including lung cancer, other chronic medical problems including COPD, CVA, hypothyroidism, GERD and hypertension She presents with respiratory distress. She found to have right pneumothorax status post right thoracostomy. This morning she is sitting in the bed age, she feels comfortable with no significant dyspnea but still complaining of from her pain on the right side where thoracostomy tube is. Fluid collection is about 650 mL through her h ydropneumothorax. She is afebrile. Mildly tachycardic, blood pressure stable She has mild white cell count elevation at 19,000, glucose yesterday was 44 but corrected to 105 and this morning she is asymptomatic. I checked her medication she is not on diabetes medication 02/03 Patient sitting in bed looks comfortable. Chest tube on the right side. No tachypnea. Her right side chest pain is about 7/10 sometimes goes more She is complaining from coughing and green phlegm. Which looks like comes from her sore throat. Patient encouraged with incentive spirometry Objective - Vital Signs Vital signs: Vital Signs Temp 97.3 F L 02/04/24 12:00 Pulse 88 02/04/24 12:03 Resp 17 02/04/24 12:00 BP 124/82 02/04/24 12:00 Pulse Ox 92 L 02/04/24 12:00 FiO2 Intake & Output 02/03/24 02/04/24 02/04/24 18:59 06:59 18:59 Intake Total 1080 18 Output Total 0 0 Balance 1080 0 18 Weight 49.9 kg Intake: IV 18 Invasive Line 5 18 Oral 1080 Output: Chest Tube Drainage 0 0 Chest Tube Right Lateral 0 0 Chest Other: Voiding Method Toilet Toilet Toilet - Exam GENERAL: The patient is alert and oriented x3, not in any acute distress. Well developed, well nourished. HEENT: Pupils are round and equally reacting to light. EOMI. No scleral icterus. No conjunctival pallor. Normocephalic, atraumatic. No pharyngeal erythema. No thyromegaly. CARDIOVASCULAR: S1 and S2 present. No murmurs, rubs, or gallops. -PULMONARY: Chest is clear to auscultation, no wheezing , no crackles. Right side chest tube in place ABDOMEN: Soft, nontender, nondistended, normoactive bowel sounds. No palpable organomegaly. MUSCULOSKELETAL: No joint swelling or deformity. EXTREMITIES: No cyanosis, clubbing, or pedal edema. NEUROLOGICAL: Gross neurological examination did not reveal any focal deficits. SKIN: No rashes. no petechiae. - Labs CBC & Chem 7: 02/04/24 06:51 02/04/24 06:51 Labs: Abnormal Lab Results - Last 24 Hours (Table) 02/03/24 02/04/24 02/04/24 Range/Units 19:57 06:51 06:51 WBC 18.7 H (3.8-10.6) k/uL RBC 3.79 L (3.80-5.40) m/uL MCV 101.8 H (80.0-100.0) fL Plt Count 509 H (150-450) k/uL BUN 18 H (7-17) mg/dL POC Glucose (mg/dL) 63 L (70-110) mg/dL Assessment and Plan Assessment: Right pneumothorax status post right thoracostomy Squamous cell carcinoma of the right l upper lobe status post robotic assisted right upper lobe lobectomy Hypertension History of GERD COPD with no exacerbation Hypothyroidism Plan: Continue with chest tube management Patient is followed closely by pulmonary and cardiothoracic surgery team Continue with pain management Labs and medication were reviewed.. Continue same treatment. Continue with symptomatic treatment. Resume home medication. Monitor labs and vitals. DVT and GI prophylaxis. Further recommendations as per clinical course of the patient DVT prophylaxis: Subcutaneous heparin GI Prophylaxis: ppi Prognosis is guarded
--- NOTE | 2024-02-04 15:43 | P.PN ---
Subjective Progress Note Date: 02/04/24 01/30/2024, the patient is being seen for a follow-up. The patient is is currently on room air oxygen and the patient is ambulating in the hallway without any major difficulties. The patient is status post right upper lobe resection and the patient is postop day #4. She continues to have the chest tube on the right side of the chest. There is still some limited air leak and the patient's chest tube In place for today. No evidence of any pneumothorax. She is noted squamous cell carcinoma and she underwent robotic assisted thoracoscopic right upper lobe resection and mediastinal lymph node dissection. She is also known to have COPD. The white cell count is at 20 with a hemoglobin of 12.3 and a platelet count of 469. BUN 18 with a creatinine of 0.6 and a sodium level at 138. Remains on DuoNeb nebulized treatments [id number]. Dilaudid for pain control. Home medications have been resumed. She is also on Symbicort as maintenance. On today's evaluation of 01/31/2024, the patient is being seen for a follow-up. No specific complaints and the patient remains on room air oxygen. There is intermittent air leak in the right-sided chest tube which is currently to waterseal. The output is serosanguineous in the order of 10 cc over the past 24 hours. The patient remains on room air oxygen. The patient is using incentive spirometer and pulling approximately 8000. She is ambulating. No significant complaints. She is on metoprolol 25 mg twice a day and she has some mild sinus tachycardia. Otherwise, the white cell count of 18 with a hemoglobin of 13 and a platelet count of 483. The BUN is 20 mg from 0.7 and a sodium level is at 140 with a potassium level of 4.9. No other significant events overnight. We decided to keep the chest tube in for another 24 hours. On 02/01/2024, the patient is being seen for a follow-up. The patient has no specific complaints. She continues to ambulate. There is still persistent air leak in the right-sided chest tube along with a small right-sided pneumothorax. Nevertheless, the patient remains on room air oxygen. No significant chest pain. No respiratory distress. Final pathology was consistent with squamous cell carcinoma and the patient and a stage Ic N0 M0 disease and the postsurgical pathology, and staging were discussed with the patient. Otherwise, the patient is doing well. Clinically and hemodynamically stable. Right-sided chest will be kept in place based on the presence of a right-sided pneumothorax and persistent air leak. On 02/02/2024, patient is being seen for a follow-up. The patient continues to have a right apical pneumothorax on today's chest x-ray and the patient also has ongoing air leak as noted on the chest tube. She remains asymptomatic. No significant shortness of breath. No chest pain. She is on room air oxygen with a pulse ox of 96%. No chest pain. The white cell count at 19.4 with a hemoglobin of 12.8 and a platelet count of 559. BUN 13 with a creatinine 0.6 and a sodium levels at 139. The patient continues to ambulate. The chest tube will be kept in place as long as there is an ongoing air leak and a persistent pneumothorax on today's chest x-ray. She is using incentive spirometer. She is pulling approximately thousand. Cardiac rhythm is sinus. No other significant events overnight. The right chest tube is to waterseal for now. 02/03/2024, the patient is being seen for a follow-up. Some intermittent air leak is still seen on today's chest tube evaluation. The pneumothorax on the right side is significantly dropped in size and the patient has a tiny 5 to 10% right apical pneumothorax on today's chest x-ray. She remains on room air oxygen. She is ambulating. She is still requiring Percocet for pain control. Her pain is under adequate control for now. She is on DuoNeb [facility]. No new labs from today. Most recent labs from yesterday were essentially within normal limits. 02/04/2024, the patient is being seen for a follow-up. The patient had a follow-up chest x-ray today and there is no evidence of any pneumothorax. There is still some intermittent air leak from the chest tube and based on that we decided to keep the chest tube in place. She remains on room air oxygen. No new complaints otherwise for now. Afebrile. No chest pain. Right-sided chest tube still in place. White cell count is 18 with a hemoglobin of 12.6 and a platelet count of 509. BUN is 18 with a creatinine of 0.7 and the patient has a sodium level of 138. Objective - Vital Signs Vital signs: Vital Signs Temp 97.3 F L 02/04/24 12:00 Pulse 88 02/04/24 12:03 Resp 17 02/04/24 12:00 BP 124/82 02/04/24 12:00 Pulse Ox 92 L 02/04/24 12:00 FiO2 Intake & Output 02/03/24 02/04/24 02/04/24 18:59 06:59 18:59 Intake Total 1080 558 Output Total 0 0 Balance 1080 0 558 Weight 49.9 kg Intake: IV 18 Invasive Line 5 18 Oral 1080 540 Output: Chest Tube Drainage 0 0 Chest Tube Right Lateral 0 0 Chest Other: Voiding Method Toilet Toilet Toilet - Exam CONSTITUTIONAL: Appears comfortable, cooperative, no acute distress RESPIRATORY: Lungs sounds diminished bilaterally. Respirations symmetrical, nonlabored. Currently on room air with oxygen saturation 98%. Able to achieve 750 mL her on incentive spirometry. Strong cough. CARDIOVASCULAR: S1, S2 present. Regular rate and tachycardic rhythm, sinus tachycardia Palpable peripheral pulses bilaterally. No edema present. No calf pain or tenderness noted. SCDs present. GASTROINTESTINAL: Abdomen soft, nontender, nondistended. Active bowel sounds present 4 quadrants. Tolerating diet. GENITOURINARY: Continues to void. INTEGUMENTARY: Skin is warm and dry with evidence of good perfusion. Right chest thoracic incision well approximated and covered with dry intact dressing. NEUROLOGIC: Cranial nerves II through XII intact MUSKULOSKELETAL: Able to move all extremities, strength equal bilaterally, gait normal PSYCHIATRIC: Alert and oriented to person place and time, appropriate affect, intact judgment and insight INVASIVE LINES AND TUBES: Right pleural chest tube present to waterseal and the patient has intermittent air leak - Labs CBC & Chem 7: 02/04/24 06:51 02/04/24 06:51 Labs: Abnormal Lab Results - Last 24 Hours (Table) 02/03/24 02/04/24 02/04/24 Range/Units 19:57 06:51 06:51 WBC 18.7 H (3.8-10.6) k/uL RBC 3.79 L (3.80-5.40) m/uL MCV 101.8 H (80.0-100.0) fL Plt Count 509 H (150-450) k/uL BUN 18 H (7-17) mg/dL POC Glucose (mg/dL) 63 L (70-110) mg/dL Assessment and Plan Plan: 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 Status post robotic assisted thoracoscopic right upper lobectomy with lysis of adhesions and mediastinal lymph node dissection. Postoperative day # 9, persistent air leak and the patient continues to have right-sided chest tube in place. Postsurgical pathologic findings are consistent with stage Ic N0 M0 disease. Right apical pneumothorax, diminished/almost recovered on today's chest x-ray and the patient continues to have some intermittent airleak through the chest tube while on waterseal. Chronic hypoxic respiratory failure secondary to heart COPD. FEV1 value 66%. Chronic and ongoing tobacco dependence. 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 Hypertension. Hypothyroidism. Obstructive sleep apnea. Sleeve gastrectomy. Splenectomy in 2018. History of anxiety/depression. Leukocytosis, improving Plan The pneumothorax is improving Keep the chest tube to waterseal, the airleak is intermittent Incentive spirometer Increase mobility Patient currently on room air oxygen Daily chest x-rays No plans to remove the chest tube today Continue DuoNeb nebulized treatments [id number] We will continue to follow
--- NOTE | 2024-02-05 07:28 | XR ---
EXAMINATION TYPE: XR chest 1V DATE OF EXAM: 02/05/2024 COMPARISON: [id number] HISTORY: Post lobectomy TECHNIQUE: Single frontal view of the chest is obtained. FINDINGS: There is a right thoracotomy tube in the lung apex. There is a small 10-15% right apical p neumothorax. There are chronic interstitial changes in both lungs. The heart size is normal. The osseous structures are intact IMPRESSION: Small 10-15% right apical pneumothorax. [facility], , 02/05/2024 7:26 AM
--- NOTE | 2024-02-05 08:57 | P.PN ---
Subjective Progress Note Date: 02/05/24 Principal diagnosis: 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. Previous medical history of longstanding COPD, asthma, obstructive sleep apnea, respiratory failure status post tracheostomy placement, chronic ongoing tobacco dependence, renal failure with dialysis with resolution, left bundle branch block followed by Dr. Katz, hypothyroidism, chronic back pain on chronic narcotics, migraine headaches, TIA in 2020 with no residual deficits, sleeve gastrectomy, splenectomy, anxiety and depression. POD #10 Robotic assisted thoracoscopic right upper lobectomy with lysis of adhesions and mediastinal lymph node dissection. Persistent airleak greater than 5 days, somewhat expected due to significant lung disease and chronic tobacco dependence The patient was seen and examined sitting up on the cardiac stepdown unit eating breakfast in no acute distress. Right pleural chest tube remains to waterseal, there does remain a tiny intermittent air leak with forceful coughing. Patient remains on room air, able to achieve 1000 mL on incentive spirometry. Chest x- ray reviewed, stable. She remains in sinus rhythm to sinus tach, hemodynamically stable. Does continue to complain of chronic pain. States that she has been ambulatory around the hallways without difficulty. She is a bit frustrated with having to be in the hospital for so long with chest tube in, re inforced necessity due to air leak, lung is very diseased so this is not completely unexpected. No other new concerns. Objective - Vital Signs Vital signs: Vital Signs Temp 98.2 F 02/05/24 04:00 Pulse 82 02/05/24 08:29 Resp 18 02/05/24 04:00 BP 106/72 02/05/24 04:00 Pulse Ox 92 L 02/05/24 04:00 FiO2 Intake & Output 02/04/24 02/05/24 02/05/24 18:59 06:59 18:59 Intake Total 1038 Output Total 10 10 Balance 1028 -10 Weight 57 kg Intake: IV 18 Invasive Line 5 18 Oral 1020 Output: Chest Tube Drainage 10 10 Chest Tube Right Lateral 10 10 Chest Other: Voiding Method Toilet Toilet - Exam CONSTITUTIONAL: Appears comfortable, cooperative, no acute distress RESPIRATORY: Lungs sounds diminished bilaterally with faint expiratory wheeze heard throughout. Respirations even, nonlabored. Currently on room air with oxygen saturation 92%. Able to achieve 1000 mL on incentive spirometry. Strong cough. CARDIOVASCULAR: S1, S2 present. Regular rate and rhythm, sinus rhythm to sinus tach on telemetry. Palpable peripheral pulses bilaterally. No edema present. No calf pain or tenderness noted GASTROINTESTINAL: Abdomen soft, nontender, nondistended. Active bowel sounds present 4 quadrants. Tolerating diet. Positive bowel movement 02/02 GENITOURINARY: Continues to void clear, yellow urine, amount not documented INTEGUMENTARY: Skin is warm and dry. Thoracic incision well approximated and covered with dry intact dressing. NEUROLOGIC: Cranial nerves II through XII intact MUSKULOSKELETAL: Able to move all extremities, strength equal bilaterally, gait normal PSYCHIATRIC: Alert and oriented to person place and time, appropriate affect, intact judgment and insight INVASIVE LINES AND TUBES: Right pleural chest tubes present to waterseal, tiny intermittent air leak present with forceful coughing, 20 mL drainage in the last 24 hours - Allied health notes Allied health notes reviewed: nursing - Labs CBC & Chem 7: 02/04/24 06:51 02/04/24 06:51 - Imaging and Cardiology Chest x-ray: report reviewed, image reviewed Assessment and Plan Assessment: 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, status post robotic assisted thoracoscopic right upper lobectomy, final pathology consistent with 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 Katz Hypothyroidism Chronic back pain on chronic narcotics TIA in 2020 with no residual deficits Anxiety and depression. Plan: Continue right pleural chest tube to waterseal, monitor for airleak resolution Encourage incentive spirometry use 10 times every hour while awake Increase activity, ambulate as tolerated Will monitor daily labs and x-rays Bronchodilators per pulmonology Pain control per current medication regimen. IV Dilaudid should not be increased, patient encouraged to utilize oral pain medication as she will not be able to go home with IV Dilaudid More recommendations to follow
--- NOTE | 2024-02-05 12:31 | P.PN ---
Subjective Progress Note Date: 02/05/24 01/30/2024, the patient is being seen for a follow-up. The patient is is currently on room air oxygen and the patient is ambulating in the hallway without any major difficulties. The patient is status post right upper lobe resection and the patient is postop day #4. She continues to have the chest tube on the right side of the chest. There is still some limited air leak and the patient's chest tube In place for today. No evidence of any pneumothorax. She is noted squamous cell carcinoma and she underwent robotic assisted thoracoscopic right upper lobe resection and mediastinal lymph node dissection. She is also known to have COPD. The white cell count is at 20 with a hemoglobin of 12.3 and a platelet count of 469. BUN 18 with a creatinine of 0.6 and a sodium level at 138. Remains on DuoNeb nebulized treatments [id number]. Dilaudid for pain control. Home medications have been resumed. She is also on Symbicort as maintenance. On today's evaluation of 01/31/2024, the patient is being seen for a follow-up. No specific complaints and the patient remains on room air oxygen. There is intermittent air leak in the right-sided chest tube which is currently to waterseal. The output is serosanguineous in the order of 10 cc over the past 24 hours. The patient remains on room air oxygen. The patient is using incentive spirometer and pulling approximately 8000. She is ambulating. No significant complaints. She is on metoprolol 25 mg twice a day and she has some mild sinus tachycardia. Otherwise, the white cell count of 18 with a hemoglobin of 13 and a platelet count of 483. The BUN is 20 mg from 0.7 and a sodium level is at 140 with a potassium level of 4.9. No other significant events overnight. We decided to keep the chest tube in for another 24 hours. On 02/01/2024, the patient is being seen for a follow-up. The patient has no specific complaints. She continues to ambulate. There is still persistent air leak in the right-sided chest tube along with a small right-sided pneumothorax. Nevertheless, the patient remains on room air oxygen. No significant chest pain. No respiratory distress. Final pathology was consistent with squamous cell carcinoma and the patient and a stage Ic N0 M0 disease and the postsurgical pathology, and staging were discussed with the patient. Otherwise, the patient is doing well. Clinically and hemodynamically stable. Right-sided chest will be kept in place based on the presence of a right-sided pneumothorax and persistent air leak. On 02/02/2024, patient is being seen for a follow-up. The patient continues to have a right apical pneumothorax on today's chest x-ray and the patient also has ongoing air leak as noted on the chest tube. She remains asymptomatic. No significant shortness of breath. No chest pain. She is on room air oxygen with a pulse ox of 96%. No chest pain. The white cell count at 19.4 with a hemoglobin of 12.8 and a platelet count of 559. BUN 13 with a creatinine 0.6 and a sodium levels at 139. The patient continues to ambulate. The chest tube will be kept in place as long as there is an ongoing air leak and a persistent pneumothorax on today's chest x-ray. She is using incentive spirometer. She is pulling approximately thousand. Cardiac rhythm is sinus. No other significant events overnight. The right chest tube is to waterseal for now. 02/03/2024, the patient is being seen for a follow-up. Some intermittent air leak is still seen on today's chest tube evaluation. The pneumothorax on the right side is significantly dropped in size and the patient has a tiny 5 to 10% right apical pneumothorax on today's chest x-ray. She remains on room air oxygen. She is ambulating. She is still requiring Percocet for pain control. Her pain is under adequate control for now. [facility] No new labs from today. Most recent labs from yesterday were essentially within normal limits. 02/04/2024, the patient is being seen for a follow-up. The patient had a follow-up chest x-ray today and there is no evidence of any pneumothorax. There is still some intermittent air leak from the chest tube and based on that we decided to keep the chest tube in place. She remains on room air oxygen. No new complaints otherwise for now. Afebrile. No chest pain. Right-sided chest tube still in place. White cell count is 18 with a hemoglobin of 12.6 and a platelet count of 509. BUN is 18 with a creatinine of 0.7 and the patient has a sodium level of 138. On 01/26/2024, the patient has a right apical pneumothorax in the order of 10%. Another area of pneumothorax is probably present in the right lung base. Chest tube remains in a good location and the patient has intermittent air leak. She remains on room air oxygen. BUN is 18 with a creatinine 0.7. Sodium levels at 138. WBC count of 18.7 with a hemoglobin 12.6. Denies having any new complaints. Objective - Vital Signs Vital signs: Vital Signs Temp 97.6 F 02/05/24 08:55 Pulse 78 02/05/24 08:55 Resp 17 02/05/24 08:55 BP 102/62 02/05/24 08:55 Pulse Ox 94 L 02/05/24 08:55 FiO2 Intake & Output 02/04/24 02/05/24 02/05/24 18:59 06:59 18:59 Intake Total 1038 540 Output Total 10 10 0 Balance 1028 -10 540 Weight 57 kg Intake: IV 18 Invasive Line 5 18 Oral 1020 540 Output: Chest Tube Drainage 10 10 0 Chest Tube Right Lateral 10 10 0 Chest Other: Voiding Method Toilet Toilet Toilet - Exam CONSTITUTIONAL: Appears comfortable, cooperative, no acute distress RESPIRATORY: Lungs sounds diminished bilaterally. Respirations symmetrical, nonlabored. Currently on room air with oxygen saturation 98%. The patient has right-sided chest tube in place. Positive intermittent airleak. CARDIOVASCULAR: S1, S2 present. Regular rate and tachycardic rhythm, sinus tachycardia Palpable peripheral pulses bilaterally. No edema present. No calf pain or tenderness noted. SCDs present. GASTROINTESTINAL: Abdomen soft, nontender, nondistended. Active bowel sounds present 4 quadrants. Tolerating diet. GENITOURINARY: Continues to void. INTEGUMENTARY: Skin is warm and dry with evidence of good perfusion. Right chest thoracic incision well approximated and covered with dry intact dressing. NEUROLOGIC: Cranial nerves II through XII intact MUSKULOSKELETAL: Able to move all extremities, strength equal bilaterally, gait normal PSYCHIATRIC: Alert and oriented to person place and time, appropriate affect, intact judgment and insight INVASIVE LINES AND TUBES: Right pleural chest tube present to [facility] and the patient has intermittent air leak - Labs CBC & Chem 7: 02/04/24 06:51 02/04/24 06:51 Assessment and Plan Plan: 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 Status post robotic assisted thoracoscopic right upper lobectomy with lysis of adhesions and mediastinal lymph node dissection. Postoperative day # 10, persistent air leak and the patient continues to have right-sided chest tube in place. Postsurgical pathologic findings are consistent with stage TIc N0 M0 disease. Right apical pneumothorax, diminished/almost recovered on today's chest x-ray and the patient continues to have some intermittent airleak through the chest tube while on waterseal. Chronic hypoxic respiratory failure secondary to heart COPD. FEV1 value 66%. Chronic and ongoing tobacco dependence. 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 Hypertension. Hypothyroidism. Obstructive sleep apnea. Sleeve gastrectomy. Splenectomy in 2018. History of anxiety/depression. Leukocytosis, improving Plan The pneumothorax is still present in the order of 10% in the right apex Keep the chest tube to waterseal, the airleak is intermittent Incentive spirometer Increase mobility Patient currently on room air oxygen Daily chest x-rays No plans to remove the chest tube today Continue DuoNeb nebulized treatments [id number] We will continue to follow
--- NOTE | 2024-02-05 15:06 | P.PN ---
Subjective This is a pleasant 48 [id number] female with past medical history of multiple medical problems including lung cancer, other chronic medical problems including COPD, CVA, hypothyroidism, GERD and hypertension She presents with respiratory distress. She found to have right pneumothorax status post right thoracostomy. This morning she is sitting in the bed age, she feels comfortable with no significant dyspnea but still complaining of from her pain on the right side where thoracostomy tube is. Fluid collection is about 650 mL through her h ydropneumothorax. She is afebrile. Mildly tachycardic, blood pressure stable She has mild white cell count elevation at 19,000, glucose yesterday was 44 but corrected to 105 and this morning she is asymptomatic. I checked her medication she is not on diabetes medication 02/03 Patient sitting in bed looks comfortable. Chest tube on the right side. No tachypnea. Her right side chest pain is about 7/10 sometimes goes more She is complaining from coughing and green phlegm. Which looks like comes from her sore throat. Patient encouraged with incentive spirometry 02/04 Patient has no chest pain or dyspnea She is sitting up in bed looks comfortable Right chest tube in place She has some sore throat WBC yesterday 18.7, check CBC tomorrow Objective - Vital Signs Vital signs: Vital Signs Temp 97.1 F L 02/05/24 12:00 Pulse 64 02/05/24 12:00 Resp 17 02/05/24 12:00 BP 98/55 02/05/24 12:00 Pulse Ox 94 L 02/05/24 12:00 FiO2 Intake & Output 02/04/24 02/05/24 02/05/24 18:59 06:59 18:59 Intake Total 1038 550 Output Total 10 10 900 Balance 1028 -10 -350 Weight 57 kg Intake: IV 18 10 Invasive Line 5 18 Invasive Line 6 10 Oral 1020 540 Output: Chest Tube Drainage 10 10 0 Chest Tube Right Lateral 10 10 0 Chest Urine 900 Other: Voiding Method Toilet Toilet Toilet - Exam GENERAL: The patient is alert and oriented x3, not in any acute distress. Well developed, well nourished. HEENT: Pupils are round and equally reacting to light. EOMI. No scleral icterus. No conjunctival pallor. Normocephalic, atraumatic. No pharyngeal erythema. No thyromegaly. CARDIOVASCULAR: S1 and S2 present. No murmurs, rubs, or gallops. -PULMONARY: Chest is clear to auscultation, no wheezing , no crackles. Right side chest tube in place ABDOMEN: Soft, nontender, nondistended, normoactive bowel sounds. No palpable organomegaly. MUSCULOSKELETAL: No joint swelling or deformity. EXTREMITIES: No cyanosis, clubbing, or pedal edema. NEUROLOGICAL: Gross neurological examination did not reveal any focal deficits. SKIN: No rashes. no petechiae. 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 Continue same treatment. Continue with symptomatic treatment. Resume home medication. Monitor labs and vitals. DVT and GI prophylaxis. Further recommendations as per clinical course of the patient DVT prophylaxis: Subcutaneous heparin GI Prophylaxis: ppi Prognosis is guarded
[2024-02-06] MEDS: DEXTROSE 5% IN WATER 100 ML with AMIODARONE 150 MG IV ONE (06:30)
[2024-02-06 06:36] LABS: HCT 36.4 % (34.0-46.0); HGB 11.6 gm/dL (11.4-16.0); Hypochromasia Slight; MCH 32.8 pg (25.0-35.0); MCHC 31.8 g/dL (31.0-37.0); Macrocytosis Slight; Mean Platelet Volume 7.1; Platelet Count 607 k/uL (150-450); RBC 3.54 m/uL (3.80-5.40); RDW 13.7 % (11.5-15.5); WBC 23.2 k/uL (3.8-10.6)
[2024-02-06] MEDS: AMIODARONE 360 MG in DEXTROSE 5% IN WATER 200 ML IV ONE (06:44)
[2024-02-06 06:52] LABS: African American GFR (CKD) >90 (>60 ml/min/1.73 sqM); Anion Gap 5 mmol/L; Blood Urea Nitrogen 14 mg/dL (7-17); Calcium 8.9 mg/dL (8.4-10.2); Carbon Dioxide 31 mmol/L (22-30); Chloride 101 mmol/L (98-107); Glucose 104 mg/dL (74-99); Magnesium 1.6 mg/dL (1.6-2.3); Non-African American GFR(CKD) >90 (>60 ml/min/1.73 sqM); Potassium 4.3 mmol/L (3.5-5.1); Sodium 137 mmol/L (137-145)
[2024-02-06 07:19] LABS: ABG Base Excess 5.2 mmol/L; ABG HCO3 29 mmol/L (21-25); ABG Oxygen Saturation 89.5 % (94-97); ABG PCO2 37 mmHg (35-45); ABG TCO2 30 mmol/L (19-24); Allen Test Performed? Yes
[2024-02-06] MEDS ORDERED: DEXTROSE 5% IN WATER 100 ML with AMIODARONE 150 MG IV ONE (07:20)
[2024-02-06 07:27] LABS: ABG PO2 54 mmHg (83-108)
[2024-02-06] MEDS ORDERED: AMIODARONE 360 MG in DEXTROSE 5% IN WATER 200 ML IV ONE (07:30)
--- NOTE | 2024-02-06 07:37 | XR ---
EXAMINATION TYPE: XR chest 1V portable DATE OF EXAM: 02/06/2024 Comparison: 02/05/2024 Clinical History: 48-year-old female post lobectomy Findings: Heart upper limits of normal in size. Hyperinflation. Medium and fine diffuse reticular opacities per sist with slight interval worsening. Patchy opacity at the bilateral lung bases slightly increased. R ight apical chest tube remains in place. Small right superior pneumothorax is slightly larger now 3.2 cm versus 2.8 cm, previously. Possible development of trace right pleural effusion. Impression: 1. Right-sided chest tube in place. A small right upper pneumothorax is slightly larger at 3.2 cm hi randall 2.8 cm, previously. 2. COPD with slight interval worsening in diffuse interstitial/reticular opacities and mild patchy bi basilar infiltrates. [facility], , 02/06/2024 7:35 AM
[2024-02-06] MEDS: MAGNESIUM SULFATE-D5W PMX 1 GM in DEXTROSE/WATER 1 100ML.BAG IVPB SCH (08:17)
[2024-02-06] MEDS: PIPERACILLIN-TAZOBACTAM 3.375 GM in SODIUM CHLORIDE 0.9% 100 ML IVPB SCH (08:17)
[2024-02-06 09:02] LABS: Appearance,Urine Clear (Clear); Bilirubin,Urine Negative (Negative); Blood,Urine Negative (Negative); Color,Urine Colorless; Glucose,Urine (UA) Negative (Negative); Ketones,Urine Negative (Negative); Leukocyte Esterase,Urine Negative (Negative); Nitrite,Urine Negative (Negative); PH, Urine 6.5 (5.0-8.0); Protein,Urine Negative (Negative); Specific Gravity,Urine 1.007 (1.001-1.035)
--- NOTE | 2024-02-06 10:08 | P.PN ---
Subjective Progress Note Date: 02/06/24 Principal diagnosis: 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, leukocytosis, acute hypoxemia, sinus tachycardia. Previous medical history of longstanding COPD, asthma, obstructive sleep apnea, respiratory failure status post tracheostomy placement, chronic ongoing tobacco dependence, renal failure with dialysis with resolution, left bundle branch block followed by Dr. Katz, hypothyroidism, chronic back pain on chronic narcotics, migraine headaches, TIA in 2020 with no residual deficits, sleeve gastrectomy, splenectomy, anxiety and depression. POD #11 Robotic assisted thoracoscopic right upper lobectomy with lysis of adhesions and mediastinal lymph node dissection. Persistent airleak greater than 5 days, somewhat expected due to significant lung disease and chronic tobacco dependence The patient was seen and examined this morning sitting up in bed on the cardiac stepdown unit. This morning she became tachycardic in the 130s although she has been battling tachycardia since admission with increase of beta-katheryn. She was also bit hypotensive, febrile at 101 F, and hypoxic. Previously she had been on room air up ambulating without difficulty, however this morning her oxygen saturation were dropping and she was placed on oxygen which was titrated up. Lab work reviewed, WBC up to 23,000. Chest x-ray completed, patient continues to have stable small right upper pneumothorax, in addition there is diffuse interstitial opacities. Pancultures were ordered, procalcitonin was ordered, IV antibiotics were ordered. ABGs were ordered and reviewed with Dr. Celaya and Dr. Betancourt. Patient was placed on 10 L high flow nasal cannula by respiratory therapy with improvement in oxygen saturation. Discussed with Dr. Betancourt, will obtain CTA to rule out PE. Currently nursing is trying to obtain IV access as patient's previous IV was accidentally pulled out. Objective - Vital Signs Vital signs: Vital Signs Temp 100.2 F H 02/06/24 07:15 Pulse 118 H 02/06/24 08:21 Resp 18 02/06/24 08:00 BP 77/50 02/06/24 07:15 Pulse Ox 95 02/06/24 07:27 FiO2 Intake & Output 02/05/24 02/06/24 02/06/24 18:59 06:59 18:59 Intake Total 550 1150 240 Output Total 1500 1247 0 Balance -950 -97 240 Weight 49.5 kg Intake: IV 10 Invasive Line 6 10 Oral 540 1150 240 Output: Chest Tube Drainage 0 47 0 Chest Tube Right Lateral 0 47 0 Chest Urine 1500 1200 Other: Voiding Method Toilet Toilet # Voids 1 - Exam CONSTITUTIONAL: Cooperative sitting up in bed, does not appear to be in significant distress despite vitals/labs/x-ray RESPIRATORY: Lungs sounds diminished bilaterally with expiratory wheeze heard throughout. Respirations even, nonlabored. Currently on 10 L high flow nasal cannula with oxygen saturation 95%. Able to achieve 750 mL on incentive s pirometry. Strong productive cough. CARDIOVASCULAR: S1, S2 present. Regular rate and rhythm, sinus sinus tach on telemetry. Palpable peripheral pulses bilaterally. No edema present. No calf pain or tenderness noted GASTROINTESTINAL: Abdomen soft, nontender, nondistended. Active bowel sounds present 4 quadrants. Tolerating diet. Positive bowel movement 02/02 GENITOURINARY: Continues to void clear, yellow urine, 2700 mL in the last 24 hours INTEGUMENTARY: Skin is warm and dry. Thoracic incision well approximated and covered with dry intact dressing. NEUROLOGIC: Cranial nerves II through XII intact MUSKULOSKELETAL: Able to move all extremities, strength equal bilaterally, gait normal PSYCHIATRIC: Alert and oriented to person place and time, appropriate affect, intact judgment and insight INVASIVE LINES AND TUBES: Right pleural chest tubes present to waterseal, intermittent air leak present with forceful coughing, 40 mL drainage in the last 24 hours - Allied health notes Allied health notes reviewed: nursing - Labs CBC & Chem 7: 02/06/24 06:05 02/06/24 06:05 Labs: Abnormal Lab Results - Last 24 Hours (Table) 02/06/24 02/06/24 02/06/24 Range/Units 06:05 06:05 07:16 WBC 23.2 H (3.8-10.6) k/uL RBC 3.54 L (3.80-5.40) m/uL MCV 103.0 H (80.0-100.0) fL Plt Count 607 H (150-450) k/uL ABG pH 7.50 H (7.35-7.45) ABG pO2 54 L* (83-108) mmHg ABG HCO3 29 H (21-25) mmol/L ABG Total CO2 30 H (19-24) mmol/L ABG O2 Saturation 89.5 L (94-97) % Hemoglobin 11.3 L (11.4-16.0) gm/dL Carbon Dioxide 31 H (22-30) mmol/L Glucose 104 H (74-99) mg/dL SARS-CoV-2 (PCR) (Not Detectd) 02/06/24 Range/Units 08:30 WBC (3.8-10.6) k/uL RBC (3.80-5.40) m/uL MCV (80.0-100.0) fL Plt Count (150-450) k/uL ABG pH (7.35-7.45) ABG pO2 (83-108) mmHg ABG HCO3 (21-25) mmol/L ABG Total CO2 (19-24) mmol/L ABG O2 Saturation (94-97) % Hemoglobin (11.4-16.0) gm/dL Carbon Dioxide (22-30) mmol/L Glucose (74-99) mg/dL SARS-CoV-2 (PCR) Detected A (Not Detectd) - Imaging and Cardiology Chest x-ray: report reviewed, image reviewed Assessment and Plan Assessment: 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, status post robotic assisted thoracoscopic right upper lobectomy, final pathology consistent with 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 Katz Hypothyroidism Chronic back pain on chronic narcotics TIA in 2020 with no residual deficits Anxiety and depression. Plan: Continue right pleural chest tube to waterseal, monitor for airleak resolution Will obtain CTA to rule out pulmonary embolism Wean O2 as tolerated Pancultures ordered, started on IV Zosyn Continue beta-blockers, will increase as tolerated Encourage incentive spirometry use 10 times every hour while awake Increase activity, ambulate as tolerated Will monitor daily labs and x-rays Bronchodilators per pulmonology Pain control per current medication regimen. IV Dilaudid should not be increased, patient encouraged to utilize oral pain medication as she will not be able to go home with IV Dilaudid More recommendations to follow
[2024-02-06] MEDS ORDERED: ALBUTEROL HFA INHALER INHALATION PRN (11:14)
[2024-02-06] MEDS: TIOTROPIUM 2.5 MCG INHALER INHALATION SCH (11:38)
[2024-02-06] MEDS: ALBUTEROL HFA INHALER INHALATION SCH (11:38)
[2024-02-06] MEDS ORDERED: AMIODARONE 450 MG in DEXTROSE 5% IN WATER 250 ML IV SCH ×2 (12:00→13:30)
[2024-02-06] MEDS: REMDESIVIR 200 MG in SODIUM CHLORIDE 0.9% 250 ML IVPB ONE (14:53)
[2024-02-06] MEDS: ASCORBIC ACID 500 MG TAB PO SCH (14:53)
[2024-02-06] MEDS: CHOLECALCIFEROL 25 MCG (1000 IU) TABLET PO SCH (14:54)
[2024-02-06] MEDS: dexAMETHasone 2 MG TAB PO SCH (14:54)
--- NOTE | 2024-02-06 15:05 | P.PN ---
Subjective Progress Note Date: 02/06/24 Principal diagnosis: 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 Status post robotic assisted thoracoscopic right upper lobectomy with lysis of adhesions and mediastinal lymph node dissection. Postoperative day # 11, persistent air leak and the patient continues to have right-sided chest tube in place. Postsurgical pathologic findings are consistent with stage TIc N0 M0 disease. 01/30/2024, the patient is being seen for a follow-up. The patient is is currently on room air oxygen and the patient is ambulating in the hallway without any major difficulties. The patient is status post right upper lobe resection and the patient is postop day #4. She continues to have the chest tube on the right side of the chest. There is still some limited air leak and the patient's chest tube In place for today. No evidence of any pneumothorax. She is noted squamous cell carcinoma and she underwent robotic assisted thoracoscopic right upper lobe resection and mediastinal lymph node dissection. She is also known to have COPD. The white cell count is at 20 with a hemoglobin of 12.3 and a platelet count of 469. BUN 18 with a creatinine of 0.6 and a sodium level at 138. Remains on DuoNeb nebulized treatments [id number]. Dilaudid for pain control. Home medications have been resumed. She is also on Symbicort as maintenance. On today's evaluation of 01/31/2024, the patient is being seen for a follow-up. No specific complaints and the patient remains on room air oxygen. There is intermittent air leak in the right-sided chest tube which is currently to waterseal. The output is serosanguineous in the order of 10 cc over the past 24 hours. The patient remains on room air oxygen. The patient is using incentive spirometer and pulling approximately 8000. She is ambulating. No significant complaints. She is on metoprolol 25 mg twice a day and she has some mild sinus tachycardia. Otherwise, the white cell count of 18 with a hemoglobin of 13 and a platelet count of 483. The BUN is 20 mg from 0.7 and a sodium level is at 140 with a potassium level of 4.9. No other significant events overnight. We decided to keep the chest tube in for another 24 hours. On 02/01/2024, the patient is being seen for a follow-up. The patient has no specific complaints. She continues to ambulate. There is still persistent air leak in the right-sided chest tube along with a small right-sided pneumothorax. Nevertheless, the patient remains on room air oxygen. No significant chest pain. No respiratory distress. Final pathology was consistent with squamous cell carcinoma and the patient and a stage Ic N0 M0 disease and the postsurgical pathology, and staging were discussed with the patient. Otherwise, the patient is doing well. Clinically and hemodynamically stable. Right-sided chest will be kept in place based on the presence of a right-sided pneumothorax and persistent air leak. On 02/02/2024, patient is being seen for a follow-up. The patient continues to have a right apical pneumothorax on today's chest x-ray and the patient also has ongoing air leak as noted on the chest tube. She remains asymptomatic. No si gnificant shortness of breath. No chest pain. She is on room air oxygen with a pulse ox of 96%. No chest pain. The white cell count at 19.4 with a hemoglobin of 12.8 and a platelet count of 559. BUN 13 with a creatinine 0.6 and a sodium levels at 139. The patient continues to ambulate. The chest tube will be kept in place as long as there is an ongoing air leak and a persistent pneumothorax on today's chest x-ray. She is using incentive spirometer. She is pulling approximately thousand. Cardiac rhythm is sinus. No other significant events overnight. The right chest tube is to waterseal for now. 02/03/2024, the patient is being seen for a follow-up. Some intermittent air leak is still seen on today's chest tube evaluation. The pneumothorax on the right side is significantly dropped in size and the patient has a tiny 5 to 10% right apical pneumothorax on today's chest x-ray. She remains on room air oxygen. She is ambulating. She is still requiring Percocet for pain control. Her pain is under adequate control for now. She is on AarkiraCoreworx. No new labs from today. Most recent labs from yesterday were essentially within normal limits. 02/04/2024, the patient is being seen for a follow-up. The patient had a follow-up chest x-ray today and there is no evidence of any pneumothorax. There is still some intermittent air leak from the chest tube and based on that we decided to keep the chest tube in place. She remains on room air oxygen. No new complaints otherwise for now. Afebrile. No chest pain. Right-sided chest tube still in place. White cell count is 18 with a hemoglobin of 12.6 and a platelet count of 509. BUN is 18 with a creatinine of 0.7 and the patient has a sodium level of 138. On 01/26/2024, the patient has a right apical pneumothorax in the order of 10%. Another area of pneumothorax is probably present in the right lung base. Chest tube remains in a good location and the patient has intermittent air leak. She remains on room air oxygen. BUN is 18 with a creatinine 0.7. Sodium levels at 138. WBC count of 18.7 with a hemoglobin 12.6. Denies having any new complaints. Patient seen today on 02/06/2024, patient has developed what seems to be a COVID-19 pneumonia on this admission, chest x-ray is showing worsening inf iltrates, clinically the patient has symptoms of pneumonia and for this I am recommending that we start the patient on remdesivir. The changes on the chest x-ray are all new. And his testing yesterday showed COVID-19 infection. This is clearly consistent with COVID-19 pneumonia and the patient will qualify for remdesivir. And she will be placed on the COVID-19 cocktail. ABG today showed a pO2 of 54 pCO2 37 pH of 7.50 basic metabolic profile is normal renal profile is normal WBC count is 23.2 hemoglobin 11.6 Objective - Vital Signs Vital signs: Vital Signs Temp 102 F H 02/06/24 12:00 Pulse 126 H 02/06/24 12:00 Resp 18 02/06/24 12:00 BP 126/68 02/06/24 12:00 Pulse Ox 97 02/06/24 12:00 FiO2 Intake & Output 02/05/24 02/06/24 02/06/24 18:59 06:59 18:59 Intake Total 550 1150 240 Output Total 1500 1247 0 Balance -950 -97 240 Weight 49.5 kg Intake: IV 10 Invasive Line 6 10 Oral 540 1150 240 Output: Chest Tube Drainage 0 47 0 Chest Tube Right Lateral 0 47 0 Chest Urine 1500 1200 Other: Voiding Method Toilet Toilet # Voids 1 - Exam CONSTITUTIONAL: 48-year-old female in no distress RESPIRATORY: crackles and rhonchi noted bilaterally right-sided chest tube is also noted. CARDIOVASCULAR: S1, S2 present. Regular rate and tachycardic rhythm, sinus tachycardia Palpable peripheral pulses bilaterally. No edema present. No calf pain or tenderness noted. SCDs present. GASTROINTESTINAL: Abdomen soft, nontender, nondistended. Active bowel sounds present 4 quadrants. Tolerating diet. GENITOURINARY: Continues to void. INTEGUMENTARY: Skin is warm and dry with evidence of good perfusion. Right chest thoracic incision well approximated and covered with dry intact dressing. NEUROLOGIC: Cranial nerves II through XII intact MUSKULOSKELETAL: Able to move all extremities, strength equal bilaterally, gait normal PSYCHIATRIC: Alert and oriented to person place and time, appropriate affect, intact judgment and insight INVASIVE LINES AND TUBES: Right pleural chest tube present to waterseal and the patient has intermittent air leak - Labs CBC & Chem 7: 02/06/24 06:05 02/06/24 06:05 Labs: Abnormal Lab Results - Last 24 Hours (Table) 02/06/24 02/06/24 02/06/24 Range/Units 06:05 06:05 07:16 WBC 23.2 H (3.8-10.6) k/uL RBC 3.54 L (3.80-5.40) m/uL MCV 103.0 H (80.0-100.0) fL Plt Count 607 H (150-450) k/uL ABG pH 7.50 H (7.35-7.45) ABG pO2 54 L* (83-108) mmHg ABG HCO3 29 H (21-25) mmol/L ABG Total CO2 30 H (19-24) mmol/L ABG O2 Saturation 89.5 L (94-97) % Hemoglobin 11.3 L (11.4-16.0) gm/dL Carbon Dioxide 31 H (22-30) mmol/L Glucose 104 H (74-99) mg/dL SARS-CoV-2 (PCR) (Not Detectd) 02/06/24 Range/Units 08:30 WBC (3.8-10.6) k/uL RBC (3.80-5.40) m/uL MCV (80.0-100.0) fL Plt Count (150-450) k/uL ABG pH (7.35-7.45) ABG pO2 (83-108) mmHg ABG HCO3 (21-25) mmol/L ABG Total CO2 (19-24) mmol/L ABG O2 Saturation (94-97) % Hemoglobin (11.4-16.0) gm/dL Carbon Dioxide (22-30) mmol/L Glucose (74-99) mg/dL SARS-CoV-2 (PCR) Detected A (Not Detectd) Assessment and Plan Assessment: Impression 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 Status post robotic assisted thoracoscopic right upper lobectomy with lysis of adhesions and mediastinal lymph node dissection. Postoperative day # 10, persistent air leak and the patient continues to have right-sided chest tube in place. Postsurgical pathologic findings are consistent with stage TIc N0 M0 disease. Right apical pneumothorax, diminished/almost recovered on today's chest x-ray and the patient continues to have some intermittent airleak through the chest tube while on waterseal. Chronic hypoxic respiratory failure secondary to heart COPD. FEV1 value 66%. Chronic and ongoing tobacco dependence. 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 Acute COVID-19 pneumonia is strongly suspected Hypertension. Hypothyroidism. Obstructive sleep apnea. Sleeve gastrectomy. Splenectomy in 2018. History of anxiety/depression. Leukocytosis, improving Recommendation: Continue present supportive care measures Will start the patient on the COVID-19 cocktail including remdesivir. Continue bronchodilators Continue chest tube to suction Continue updrafts including DuoNeb Continue incentive spirometry Continue ambulation will continue to follow Time with Patient: Less than 30
[2024-02-07] MEDS ORDERED: Magnesium Replacement Protocol 1 EACH MISC MISCELLANE PRN (01:09)
[2024-02-07] MEDS: MAGNESIUM SULFATE-D5W PMX 1 GM in DEXTROSE/WATER 1 100ML.BAG IVPB SCH (01:59)
[2024-02-07 06:58] LABS: HCT 36.2 % (34.0-46.0); HGB 11.4 gm/dL (11.4-16.0); Hypochromasia Slight; MCH 32.4 pg (25.0-35.0); MCHC 31.5 g/dL (31.0-37.0); MCV 102.7 fL (80.0-100.0); Macrocytosis Slight; Mean Platelet Volume 7.1; Platelet Count 608 k/uL (150-450); RBC 3.52 m/uL (3.80-5.40); RDW 13.8 % (11.5-15.5); WBC 15.8 k/uL (3.8-10.6)
[2024-02-07 07:08] LABS: African American GFR (CKD) >90 (>60 ml/min/1.73 sqM); Anion Gap 4 mmol/L; Blood Urea Nitrogen 11 mg/dL (7-17); Calcium 8.5 mg/dL (8.4-10.2); Carbon Dioxide 27 mmol/L (22-30); Chloride 107 mmol/L (98-107); Glucose 90 mg/dL (74-99); Magnesium 1.8 mg/dL (1.6-2.3); Non-African American GFR(CKD) >90 (>60 ml/min/1.73 sqM); Potassium 3.7 mmol/L (3.5-5.1); Sodium 138 mmol/L (137-145)
--- NOTE | 2024-02-07 07:55 | XR ---
EXAMINATION TYPE: XR chest 1V portable DATE OF EXAM: 02/07/2024 HISTORY: Shortness of breath. COMPARISON: 02/06/2024 TECHNIQUE: Single view of the chest is submitted. FINDINGS: Demonstrated are scattered senescent parenchymal change. Right apical pneumothorax is essentially unchanged with apical pleural distance of 3.6 cm. Coarse inf iltrates are seen throughout both lung jamil appear to be stable. The heart is stable. Hilar and mediastinal structures are within normal limits. Degenerative changes are seen of the dorsal spine. IMPRESSION: 1. Right apical pneumothorax is essentially unchanged with apical pleural distance of 3.6 cm. Coarse infiltrates are seen throughout both lung jamil appear to be stable. [facility], , 02/07/2024 7:52 AM
--- NOTE | 2024-02-07 08:56 | P.PN ---
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 Previous medical history of longstanding COPD, asthma, obstructive sleep apnea, respiratory failure status post tracheostomy placement, chronic ongoing tobacco dependence, renal failure with dialysis with resolution, left bundle branch block followed by Dr. Katz, hypothyroidism, chronic back pain on chronic narcotics, migraine headaches, TIA in 2020 with no residual deficits, sleeve gastrectomy, splenectomy, anxiety and depression. POD #12 Robotic assisted thoracoscopic right upper lobectomy with lysis of adhesions and mediastinal lymph node dissection. Persistent airleak greater than 5 days, somewhat expected due to significant lung disease and chronic tobacco dependence Covid positive, unexpected The patient was seen and examined this morning sitting up in bed on the cardiac stepdown unit. Yesterday the patient developed some respiratory distress, fever, increased tachycardia and hypotension. Pancultures, viral 4-pack and procalcitonin were ordered. Patient was started on IV antibiotics prophylactically. Viral 4-pack came back positive for COVID. Procalcitonin was negative and antibiotics were stopped. Patient was started on remdesivir as well as vitamin C, vitamin D and dexamethasone. Oxygen was titrated down a bit. Fever broke and was normal this morning. Right pleural chest tube remains to waterseal, intermittent airleak present, minimal drainage. Labs, x-ray reviewed this morning, WBC decreasing. Per nursing the patient had an episode where she got up to the bathroom without telling anybody and her chest tube got caught in the bed and became disconnected. It was quickly reconnected and connections resecured. No other new concerns although patient is frustrated with being in the hospital so long. Objective - Vital Signs Vital signs: Vital Signs Temp 98.8 F 02/07/24 03:47 Pulse 96 02/07/24 03:47 Resp 20 02/07/24 03:47 BP 144/72 02/07/24 03:47 Pulse Ox 93 L 02/07/24 03:47 FiO2 Intake & Output 02/06/24 02/07/24 02/07/24 18:59 06:59 18:59 Intake Total 720 Output Total 0 25 Balance 720 -25 Weight 49.2 kg Intake: Oral 720 Output: Chest Tube Drainage 0 25 Chest Tube Right Lateral 0 25 Chest Other: # Voids 1 # Bowel Movements 1 - Exam CONSTITUTIONAL: Cooperative sitting up in bed, does not appear to be in significant distress RESPIRATORY: Lungs sounds diminished bilaterally with expiratory wheeze heard throughout. Respirations even, nonlabored. Currently on 7 L high flow nasal cannula with oxygen saturation 93%. Able to achieve 750 mL on incentive spirometry. Strong productive cough. CARDIOVASCULAR: S1, S2 present. Regular rate and rhythm, sinus rhythm to sinus tach on telemetry. Palpable peripheral pulses bilaterally. No edema present. No calf pain or tenderness noted GASTROINTESTINAL: Abdomen soft, nontender, nondistended. Active bowel sounds present 4 quadrants. Tolerating diet. Positive bowel movement 02/06 GENITOURINARY: Continues to void clear, yellow urine, not recorded in milliliters in [employer] INTEGUMENTARY: Skin is warm and dry. Thoracic incision well approximated and covered with dry intact dressing. NEUROLOGIC: Cranial nerves II through XII intact MUSKULOSKELETAL: Able to move all extremities, strength equal bilaterally, gait normal PSYCHIATRIC: Alert and oriented to person place and time, appropriate affect, intact judgment and insight INVASIVE LINES AND TUBES: Right pleural chest tubes present to waterseal, intermittent air leak present with forceful coughing, 35 mL drainage in the last 24 hours - Allied health notes Allied health notes reviewed: nursing - Labs CBC & Chem 7: 02/07/24 06:38 02/07/24 06:38 Labs: Abnormal Lab Results - Last 24 Hours (Table) 02/06/24 02/07/24 Range/Units 08:30 06:38 WBC 15.8 H (3.8-10.6) k/uL RBC 3.52 L (3.80-5.40) m/uL MCV 102.7 H (80.0-100.0) fL Plt Count 608 H (150-450) k/uL SARS-CoV-2 (PCR) Detected A (Not Detectd) - Imaging and Cardiology Chest x-ray: report reviewed, image reviewed Assessment and Plan Assessment: 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, status post robotic assisted thoracoscopic right upper lobectomy, final pathology consistent with 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 Katz Hypothyroidism Chronic back pain on chronic narcotics TIA in 2020 with no residual deficits Anxiety and depression. Plan: Right pleural chest tube reconnected to continuous wall suction, monitor for airleak resolution Wean O2 as tolerated Continue COVID cocktail Continue beta-blockers, will increase as tolerated, metoprolol increased to 100 mg twice daily today Encourage incentive spirometry use 10 times every hour while awake Increase activity, ambulate as tolerated Will monitor daily labs and x-rays Bronchodilators per pulmonology Pain control per current medication regimen. IV Dilaudid should not be increased, patient encouraged to utilize oral pain medication as she will not be able to go home with IV Dilaudid More recommendations to follow
[2024-02-07] MEDS: MAGNESIUM SULFATE-D5W PMX 1 GM in DEXTROSE/WATER 1 100ML.BAG IVPB ONE (09:10)
[2024-02-07] MEDS: METOPROLOL TARTRATE 50 MG TAB PO SCH (09:10)
[2024-02-07] MEDS: POTASSIUM BICARBONATE/CIT AC 20 MEQ TABLET.EFF PO ONE (09:14)
[2024-02-07] MEDS: REMDESIVIR 100 MG in SODIUM CHLORIDE 0.9% 250 ML IVPB SCH (12:17)
--- NOTE | 2024-02-07 14:40 | P.PN ---
Subjective Progress Note Date: 02/07/24 Principal diagnosis: 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 Status post robotic assisted thoracoscopic right upper lobectomy with lysis of adhesions and mediastinal lymph node dissection. Postoperative day # 12, persistent air leak and the patient continues to have right-sided chest tube in place. Postsurgical pathologic findings are consistent with stage TIc N0 M0 disease. 01/30/2024, the patient is being seen for a follow-up. The patient is is currently on room air oxygen and the patient is ambulating in the hallway without any major difficulties. The patient is status post right upper lobe resection and the patient is postop day #4. She continues to have the chest tube on the right side of the chest. There is still some limited air leak and the patient's chest tube In place for today. No evidence of any pneumothorax. She is noted squamous cell carcinoma and she underwent robotic assisted thoracoscopic right upper lobe resection and mediastinal lymph node dissection. She is also known to have COPD. The white cell count is at 20 with a hemoglobin of 12.3 and a platelet count of 469. BUN 18 with a creatinine of 0.6 and a sodium level at 138. Remains on DuoNeb nebulized treatments [id number]. Dilaudid for pain control. Home medications have been resumed. She is also on Symbicort as maintenance. On today's evaluation of 01/31/2024, the patient is being seen for a follow-up. No specific complaints and the patient remains on room air oxygen. There is intermittent air leak in the right-sided chest tube which is currently to waterseal. The output is serosanguineous in the order of 10 cc over the past 24 hours. The patient remains on room air oxygen. The patient is using incentive spirometer and pulling approximately 8000. She is ambulating. No significant complaints. She is on metoprolol 25 mg twice a day and she has some mild sinus tachycardia. Otherwise, the white cell count of 18 with a hemoglobin of 13 and a platelet count of 483. The BUN is 20 mg from 0.7 and a sodium level is at 140 with a potassium level of 4.9. No other significant events overnight. We decided to keep the chest tube in for another 24 hours. On 02/01/2024, the patient is being seen for a follow-up. The patient has no specific complaints. She continues to ambulate. There is still persistent air leak in the right-sided chest tube along with a small right-sided pneumothorax. Nevertheless, the patient remains on room air oxygen. No significant chest pain. No respiratory distress. Final pathology was consistent with squamous cell carcinoma and the patient and a stage Ic N0 M0 disease and the postsurgical pathology, and staging were discussed with the patient. Otherwise, the patient is doing well. Clinically and hemodynamically stable. Right-sided chest will be kept in place based on the presence of a right-sided pneumothorax and persistent air leak. On 02/02/2024, patient is being seen for a follow-up. The patient continues to have a right apical pneumothorax on today's chest x-ray and the patient also has ongoing air leak as noted on the chest tube. She remains asymptomatic. No si gnificant shortness of breath. No chest pain. She is on room air oxygen with a pulse ox of 96%. No chest pain. The white cell count at 19.4 with a hemoglobin of 12.8 and a platelet count of 559. BUN 13 with a creatinine 0.6 and a sodium levels at 139. The patient continues to ambulate. The chest tube will be kept in place as long as there is an ongoing air leak and a persistent pneumothorax on today's chest x-ray. She is using incentive spirometer. She is pulling approximately thousand. Cardiac rhythm is sinus. No other significant events overnight. The right chest tube is to waterseal for now. 02/03/2024, the patient is being seen for a follow-up. Some intermittent air leak is still seen on today's chest tube evaluation. The pneumothorax on the right side is significantly dropped in size and the patient has a tiny 5 to 10% right apical pneumothorax on today's chest x-ray. She remains on room air oxygen. She is ambulating. She is still requiring Percocet for pain control. Her pain is under adequate control for now. She is on [facility]. No new labs from today. Most recent labs from yesterday were essentially within normal limits. 02/04/2024, the patient is being seen for a follow-up. The patient had a follow-up chest x-ray today and there is no evidence of any pneumothorax. There is still some intermittent air leak from the chest tube and based on that we decided to keep the chest tube in place. She remains on room air oxygen. No new complaints otherwise for now. Afebrile. No chest pain. Right-sided chest tube still in place. White cell count is 18 with a hemoglobin of 12.6 and a platelet count of 509. BUN is 18 with a creatinine of 0.7 and the patient has a sodium level of 138. On 01/26/2024, the patient has a right apical pneumothorax in the order of 10%. Another area of pneumothorax is probably present in the right lung base. Chest tube remains in a good location and the patient has intermittent air leak. She remains on room air oxygen. BUN is 18 with a creatinine 0.7. Sodium levels at 138. WBC count of 18.7 with a hemoglobin 12.6. Denies having any new complaints. Patient seen today on 02/06/2024, patient has developed what seems to be a COVID-19 pneumonia on this admission, chest x-ray is showing worsening inf iltrates, clinically the patient has symptoms of pneumonia and for this I am recommending that we start the patient on remdesivir. The changes on the chest x-ray are all new. And his testing yesterday showed COVID-19 infection. This is clearly consistent with COVID-19 pneumonia and the patient will qualify for remdesivir. And she will be placed on the COVID-19 cocktail. ABG today showed a pO2 of 54 pCO2 37 pH of 7.50 basic metabolic profile is normal renal profile is normal WBC count is 23.2 hemoglobin 11.6 Patient was evaluated today on 02/07/2024, patient continues to have persistent air leak from her right-sided chest tube. Continues to have a small pneumothorax. Patient is on remdesivir for her COVID-19 infection along with the COVID-19 cocktail. Feeling about the same. Intermittent cough, no wheezing, no fever, no chills, no hemoptysis. And no chest pain. WBC count is 15.8 hemoglobin is 11.4 basic metabolic profile is normal renal profile is normal procalcitonin level is normal follow-up chest x-ray was noted, she does have right-sided pneumothorax, hence the place was back on suction Objective - Vital Signs Vital signs: Vital Signs Temp 99.7 F H 02/07/24 12:15 Pulse 98 02/07/24 12:15 Resp 18 02/07/24 12:15 BP 114/67 02/07/24 12:15 Pulse Ox 95 02/07/24 12:15 FiO2 Intake & Output 02/06/24 02/07/24 02/07/24 18:59 06:59 18:59 Intake Total 720 1200 Output Total 0 25 10 Balance 720 -25 1190 Weight 49.2 kg Intake: Oral 720 1200 Output: Chest Tube Drainage 0 25 10 Chest Tube Right Lateral 0 25 10 Chest Other: Voiding Method Toilet # Voids 1 # Bowel Movements 1 - Exam CONSTITUTIONAL: 48-year-old female in no distress RESPIRATORY: crackles and rhonchi noted bilaterally right-sided chest tube is also noted. Right-sided air leak is noted in the Pleur-evac. CARDIOVASCULAR: S1, S2 present. Regular rate and tachycardic rhythm, sinus tachycardia Palpable peripheral pulses bilaterally. No edema present. No calf pain or tenderness noted. SCDs present. GASTROINTESTINAL: Abdomen soft, nontender, nondistended. Active bowel sounds present 4 quadrants. Tolerating diet. GENITOURINARY: Continues to void. INTEGUMENTARY: Skin is warm and dry with evidence of good perfusion. Right chest thoracic incision well approximated and covered with dry intact dressing. NEUROLOGIC: Cranial nerves II through XII intact MUSKULOSKELETAL: Able to move all extremities, strength equal bilaterally, gait normal PSYCHIATRIC: Alert and oriented to person place and time, appropriate affect, intact judgment and insight INVASIVE LINES AND TUBES: Right pleural chest tube present to suction again - Labs CBC & Chem 7: 02/07/24 06:38 02/07/24 06:38 Labs: Abnormal Lab Results - Last 24 Hours (Table) 02/07/24 Range/Units 06:38 WBC 15.8 H (3.8-10.6) k/uL RBC 3.52 L (3.80-5.40) m/uL MCV 102.7 H (80.0-100.0) fL Plt Count 608 H (150-450) k/uL Microbiology - Last 24 Hours (Table) 02/06/24 07:15 Blood Culture - Preliminary Blood Assessment and Plan Assessment: Impression 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 Status post robotic assisted thoracoscopic right upper lobectomy with lysis of adhesions and mediastinal lymph node dissection. Postoperative day # 10, persistent air leak and the patient continues to have right-sided chest tube in place. Post surgical pathologic findings are consistent with stage TIc N0 M0 disease. Right apical pneumothorax, diminished/almost recovered on today's chest x-ray and the patient continues to have some intermittent airleak through the chest tube while on waterseal. Chronic hypoxic respiratory failure secondary to heart COPD. FEV1 value 66%. Chronic and ongoing tobacco dependence. 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 Acute COVID-19 pneumonia is strongly suspected Hypertension. Hypothyroidism. Obstructive sleep apnea. Sleeve gastrectomy. Splenectomy in 2018. History of anxiety/depression. Leukocytosis, improving Recommendation: Continue present supportive care measures Continue COVID-19 cocktail, continue remdesivir Continue bronchodilators Continue chest tube to suction, continue to follow daily x-rays of the chest Continue updrafts including DuoNeb Continue incentive spirometry Continue ambulation will continue to follow Time with Patient: Less than 30
[2024-02-08 06:57] LABS: HCT 33.8 % (34.0-46.0); HGB 10.8 gm/dL (11.4-16.0); MCH 32.4 pg (25.0-35.0); MCV 101.3 fL (80.0-100.0); Macrocytosis Slight; Mean Platelet Volume 7.9; Platelet Count 731 k/uL (150-450); RBC 3.34 m/uL (3.80-5.40); RDW 14.1 % (11.5-15.5); WBC 14.8 k/uL (3.8-10.6)
[2024-02-08 07:12] LABS: African American GFR (CKD) >90 (>60 ml/min/1.73 sqM); Anion Gap 3 mmol/L; Blood Urea Nitrogen 11 mg/dL (7-17); Calcium 8.5 mg/dL (8.4-10.2); Carbon Dioxide 32 mmol/L (22-30); Chloride 106 mmol/L (98-107); Glucose 76 mg/dL (74-99); Magnesium 1.8 mg/dL (1.6-2.3); Non-African American GFR(CKD) >90 (>60 ml/min/1.73 sqM); Potassium 3.9 mmol/L (3.5-5.1); Sodium 141 mmol/L (137-145)
--- NOTE | 2024-02-08 07:44 | P.PN ---
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 Previous medical history of longstanding COPD, asthma, obstructive sleep apnea, respiratory failure status post tracheostomy placement, chronic ongoing tobacco dependence, renal failure with dialysis with resolution, left bundle branch block followed by Dr. Katz, hypothyroidism, chronic back pain on chronic narcotics, migraine headaches, TIA in 2020 with no residual deficits, sleeve gastrectomy, splenectomy, anxiety and depression. POD #13 Robotic assisted thoracoscopic right upper lobectomy with lysis of adhesions and mediastinal lymph node dissection. Persistent airleak greater than 5 days, somewhat expected due to significant lung disease and chronic tobacco dependence Covid positive, unexpected The patient was seen and examined this morning sitting up in bed on the cardiac stepdown unit. Remains in sinus rhythm to sinus tach, blood pressure mostly stable, beta-katheryn has been increased. Remains on high flow nasal cannula with oxygen saturation in the low 90s, oxygen was taken off last night and her saturations were 81%. She does look and feel a bit better than yesterday. Right pleural chest tube was placed back to continuous wall suction yesterday, continues to have minimal drainage, continues to have intermittent airleak with coughing. Labs, x-ray reviewed this morning, WBC decreasing, x-ray continues to demonstrate pneumothorax on the right. No other new concerns although patient is frustrated with being in the hospital so long, she does understand why. Continues on COVID cocktail. Objective - Vital Signs Vital signs: Vital Signs Temp 98.7 F 02/08/24 03:37 Pulse 91 02/08/24 03:37 Resp 18 02/08/24 03:37 BP 151/87 02/08/24 03:37 Pulse Ox 90 L 02/08/24 03:37 FiO2 Intake & Output 02/07/24 02/08/24 02/08/24 18:59 06:59 18:59 Intake Total 1200 Output Total 15 20 Balance 1185 -20 Weight 49.7 kg Intake: Oral 1200 Output: Chest Tube Drainage 15 20 Chest Tube Right Lateral 15 20 Chest Other: Voiding Method Toilet # Voids 4 1 - Exam CONSTITUTIONAL: Cooperative sitting up in bed, does not appear to be in signif icant distress RESPIRATORY: Lungs sounds diminished bilaterally with expiratory wheeze heard throughout. Respirations even, nonlabored. Currently on 7 L high flow nasal cannula with oxygen saturation 90%. Able to achieve 750 mL on incentive spirometry. Strong productive cough. CARDIOVASCULAR: S1, S2 present. Regular rate and rhythm, sinus rhythm to sinus tach on telemetry. Palpable peripheral pulses bilaterally. No edema present. No calf pain or tenderness noted GASTROINTESTINAL: Abdomen soft, nontender, nondistended. Active bowel sounds present 4 quadrants. Tolerating diet. Positive bowel movement 02/06 GENITOURINARY: Continues to void clear, yellow urine, not recorded in milliliters in [employer] INTEGUMENTARY: Skin is warm and dry. Thoracic incision well approximated and covered with dry intact dressing. NEUROLOGIC: Cranial nerves II through XII intact MUSKULOSKELETAL: Able to move all extremities, strength equal bilaterally, gait normal PSYCHIATRIC: Alert and oriented to person place and time, appropriate affect, intact judgment and insight INVASIVE LINES AND TUBES: Right pleural chest tubes present to continuous wall suction, intermittent air leak present with forceful coughing, 40 mL drainage in the last 24 hours - Allied health notes Allied health notes reviewed: nursing - Labs CBC & Chem 7: 02/08/24 06:35 02/08/24 06:35 Labs: Abnormal Lab Results - Last 24 Hours (Table) 02/08/24 02/08/24 Range/Units 06:35 06:35 WBC 14.8 H (3.8-10.6) k/uL RBC 3.34 L (3.80-5.40) m/uL Hgb 10.8 L (11.4-16.0) gm/dL Hct 33.8 L (34.0-46.0) % MCV 101.3 H (80.0-100.0) fL Plt Count 731 H (150-450) k/uL Carbon Dioxide 32 H (22-30) mmol/L Microbiology - Last 24 Hours (Table) 02/06/24 07:15 Blood Culture - Preliminary Blood - Imaging and Cardiology Chest x-ray: image reviewed Assessment and Plan Assessment: 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, status post robotic assisted thoracoscopic right upper lobectomy, final pathology consistent with 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 Katz Hypothyroidism Chronic back pain on chronic narcotics TIA in 2020 with no residual deficits Anxiety and depression. Plan: Continue right pleural chest tube to continuous wall suction, monitor for airleak resolution Patient may need talc pleurodesis once patient recovers a bit from COVID Wean O2 as tolerated Continue COVID cocktail Continue beta-blockers, metoprolol increased to 100 mg twice daily yesterday Encourage incentive spirometry use 10 times every hour while awake Increase activity, ambulate as tolerated Will monitor daily labs and x-rays Bronchodilators per pulmonology Pain control per current medication regimen More recommendations to follow
--- NOTE | 2024-02-08 08:06 | XR ---
EXAMINATION TYPE: XR chest 1V portable DATE OF EXAM: 02/08/2024 HISTORY: Shortness of breath. COMPARISON: 02/07/2024 TECHNIQUE: Single view of the chest is submitted. FINDINGS: Demonstrated are scattered senescent parenchymal change. Right apical pneumothorax with apical pleural distance of 2.5 cm versus 3.6 cm previously. Coarse inf iltrates persist throughout both lung jamil. The heart is stable. Hilar and mediastinal structures are within normal limits. Degenerative changes are seen of the dorsal spine. IMPRESSION: 1. Right apical pneumothorax with apical pleural distance of 2.5 cm versus 3.6 cm previously. Coarse infiltrates persist throughout both lung jamil. [facility], , 02/08/2024 8:04 AM
--- NOTE | 2024-02-08 14:27 | P.PN ---
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 Status post robotic assisted thoracoscopic right upper lobectomy with lysis of adhesions and mediastinal lymph node dissection. Postoperative day #13, persistent air leak and the patient continues to have right-sided chest tube in place. Postsurgical pathologic findings are consistent with stage TIc N0 M0 disease. 01/30/2024, the patient is being seen for a follow-up. The patient is is currently on room air oxygen and the patient is ambulating in the hallway without any major difficulties. The patient is status post right upper lobe resection and the patient is postop day #4. She continues to have the chest tube on the right side of the chest. There is still some limited air leak and the patient's chest tube In place for today. No evidence of any pneumothorax. She is noted squamous cell carcinoma and she underwent robotic assisted thoracoscopic right upper lobe resection and mediastinal lymph node dissection. She is also known to have COPD. The white cell count is at 20 with a hemoglobin of 12.3 and a platelet count of 469. BUN 18 with a creatinine of 0.6 and a sodium level at 138. Remains on DuoNeb nebulized treatments [id number]. Dilaudid for pain control. Home medications have been resumed. She is also on Symbicort as maintenance. On today's evaluation of 01/31/2024, the patient is being seen for a follow-up. No specific complaints and the patient remains on room air oxygen. There is intermittent air leak in the right-sided chest tube which is currently to waterseal. The output is serosanguineous in the order of 10 cc over the past 24 hours. The patient remains on room air oxygen. The patient is using incentive spirometer and pulling approximately 8000. She is ambulating. No significant complaints. She is on metoprolol 25 mg twice a day and she has some mild sinus tachycardia. Otherwise, the white cell count of 18 with a hemoglobin of 13 and a platelet count of 483. The BUN is 20 mg from 0.7 and a sodium level is at 140 with a potassium level of 4.9. No other significant events overnight. We decided to keep the chest tube in for another 24 hours. On 02/01/2024, the patient is being seen for a follow-up. The patient has no specific complaints. She continues to ambulate. There is still persistent air leak in the right-sided chest tube along with a small right-sided pneumothorax. Nevertheless, the patient remains on room air oxygen. No significant chest pain. No respiratory distress. Final pathology was consistent with squamous cell carcinoma and the patient and a stage Ic N0 M0 disease and the postsurgical pathology, and staging were discussed with the patient. Otherwise, the patient is doing well. Clinically and hemodynamically stable. Right-sided chest will be kept in place based on the presence of a right-sided pneumothorax and persistent air leak. On 02/02/2024, patient is being seen for a follow-up. The patient continues to have a right apical pneumothorax on today's chest x-ray and the patient also has ongoing air leak as noted on the chest tube. She remains asymptomatic. No sig nificant shortness of breath. No chest pain. She is on room air oxygen with a pulse ox of 96%. No chest pain. The white cell count at 19.4 with a hemoglobin of 12.8 and a platelet count of 559. BUN 13 with a creatinine 0.6 and a sodium levels at 139. The patient continues to ambulate. The chest tube will be kept in place as long as there is an ongoing air leak and a persistent pneumothorax on today's chest x-ray. She is using incentive spirometer. She is pulling approximately thousand. Cardiac rhythm is sinus. No other significant events overnight. The right chest tube is to waterseal for now. 02/03/2024, the patient is being seen for a follow-up. Some intermittent air leak is still seen on today's chest tube evaluation. The pneumothorax on the right side is significantly dropped in size and the patient has a tiny 5 to 10% right apical pneumothorax on today's chest x-ray. She remains on room air oxygen. She is ambulating. She is still requiring Percocet for pain control. Her pain is under adequate control for now. She is on DuWorldOneraA-STAR. No new labs from today. Most recent labs from yesterday were essentially within normal limits. 02/04/2024, the patient is being seen for a follow-up. The patient had a follow-up chest x-ray today and there is no evidence of any pneumothorax. There is still some intermittent air leak from the chest tube and based on that we decided to keep the chest tube in place. She remains on room air oxygen. No new complaints otherwise for now. Afebrile. No chest pain. Right-sided chest tube still in place. White cell count is 18 with a hemoglobin of 12.6 and a platelet count of 509. BUN is 18 with a creatinine of 0.7 and the patient has a sodium level of 138. On 01/26/2024, the patient has a right apical pneumothorax in the order of 10%. Another area of pneumothorax is probably present in the right lung base. Chest tube remains in a good location and the patient has intermittent air leak. She remains on room air oxygen. BUN is 18 with a creatinine 0.7. Sodium levels at 138. WBC count of 18.7 with a hemoglobin 12.6. Denies having any new complaints. Patient seen today on 02/06/2024, patient has developed what seems to be a COVID-19 pneumonia on this admission, chest x-ray is showing worsening infi ltrates, clinically the patient has symptoms of pneumonia and for this I am recommending that we start the patient on remdesivir. The changes on the chest x-ray are all new. And his testing yesterday showed COVID-19 infection. This is clearly consistent with COVID-19 pneumonia and the patient will qualify for remdesivir. And she will be placed on the COVID-19 cocktail. ABG today showed a pO2 of 54 pCO2 37 pH of 7.50 basic metabolic profile is normal renal profile is normal WBC count is 23.2 hemoglobin 11.6 Patient was evaluated today on 02/07/2024, patient continues to have persistent air leak from her right-sided chest tube. Continues to have a small pneumothorax. Patient is on remdesivir for her COVID-19 infection along with the COVID-19 cocktail. Feeling about the same. Intermittent cough, no wheezing, no fever, no chills, no hemoptysis. And no chest pain. WBC count is 15.8 hemoglobin is 11.4 basic metabolic profile is normal renal profile is normal procalcitonin level is normal follow-up chest x-ray was noted, she does have right-sided pneumothorax, hence the place was back on suction Patient was seen today on 02/08/2024, she is now postoperative day#13 Robotic assisted thoracoscopic right upper lobectomy with lysis of adhesions and mediastinal lymph node dissection. Patient is doing well continues to have an air leak, continues to have right-sided pneumothorax remains on remdesivir for her acute COVID-19 pneumonia. Patient is not in any distress. WBC count is 14.8 hemoglobin is 10.8 basic metabolic profile is normal renal profile is normalPatient is on 6 L nasal cannula with O2 sats of 98% Objective - Vital Signs Vital signs: Vital Signs Temp 100.2 F H 02/08/24 08:00 Pulse 81 02/08/24 12:00 Resp 16 02/08/24 12:00 BP 101/66 02/08/24 12:00 Pulse Ox 98 02/08/24 12:00 FiO2 Intake & Output 02/07/24 02/08/24 02/08/24 18:59 06:59 18:59 Intake Total 1200 1260 Output Total 15 20 Balance 1185 -20 1260 Weight 49.7 kg Intake: Oral 1200 1260 Output: Chest Tube Drainage 15 20 Chest Tube Right Lateral 15 20 Chest Other: Voiding Method Toilet Toilet # Voids 4 1 - Exam CONSTITUTIONAL: 48-year-old female in no distress on 6 L nasal cannula RESPIRATORY: crackles and rhonchi noted bilaterally right-sided chest tube is also noted. Right-sided air leak is noted in the Pleur-evac. CARDIOVASCULAR: S1, S2 present. Regular rate and tachycardic rhythm, sinus tachycardia Palpable peripheral pulses bilaterally. No edema present. No calf pain or tenderness noted. SCDs present. GASTROINTESTINAL: Abdomen soft, nontender, nondistended. Active bowel sounds present 4 quadrants. Tolerating diet. GENITOURINARY: Continues to void. INTEGUMENTARY: Skin is warm and dry with evidence of good perfusion. Right chest thoracic incision well approximated and covered with dry intact dressing. NEUROLOGIC: Cranial nerves II through XII intact MUSKULOSKELETAL: Able to move all extremities, strength equal bilaterally, gait normal PSYCHIATRIC: Alert and oriented to person place and time, appropriate affect, intact judgment and insight INVASIVE LINES AND TUBES: Right pleural chest tube present to suction again - Labs CBC & Chem 7: 02/08/24 06:35 02/08/24 06:35 Labs: Abnormal Lab Results - Last 24 Hours (Table) 02/08/24 02/08/24 Range/Units 06:35 06:35 WBC 14.8 H (3.8-10.6) k/uL RBC 3.34 L (3.80-5.40) m/uL Hgb 10.8 L (11.4-16.0) gm/dL Hct 33.8 L (34.0-46.0) % MCV 101.3 H (80.0-100.0) fL Plt Count 731 H (150-450) k/uL Carbon Dioxide 32 H (22-30) mmol/L Microbiology - Last 24 Hours (Table) 02/06/24 07:15 Blood Culture - Preliminary Blood Assessment and Plan Assessment: Impression 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 Status post robotic assisted thoracoscopic right upper lobectomy with lysis of adhesions and mediastinal lymph node dissection. Postoperative day # 10, persistent air leak and the patient continues to have right-sided chest tube in place. Postsurgical pathologic findings are consistent with stage TIc N0 M0 disease. Right apical pneumothorax, diminished/almost recovered on today's chest x-ray and the patient continues to have some intermittent airleak through the chest tube while on waterseal. Chronic hypoxic respiratory failure secondary to heart COPD. FEV1 value 66%. Chronic and ongoing tobacco dependence. 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 Acute COVID-19 pneumonia is strongly suspected Hypertension. Hypothyroidism. Obstructive sleep apnea. Sleeve gastrectomy. Splenectomy in 2018. History of anxiety/depression. Leukocytosis, improving Recommendation: Surgery is considering talc pleurodesis for persistent right-sided pneumothorax Continue present supportive care measures Continue COVID-19 cocktail, continue remdesivir Continue bronchodilators Continue chest tube to suction Continue updrafts including DuoNeb Continue incentive spirometry Continue ambulation will continue to follow Time with Patient: Less than 30
--- NOTE | 2024-02-09 00:47 | PN ---
PROGRESS NOTE DATE OF SERVICE: 02/08/2024 CHIEF COMPLAINT: Persistent right pneumothorax. HISTORY OF PRESENT ILLNESS: This lady is doing fairly well, feels about the same. She is still running a low-grade temperature occasionally, which is probably related to her COVID. White count is down to 14,800. PHYSICAL EXAMINATION: VITAL SIGNS: Normal except for the temperature of 100.2. CHEST: Clear. CARDIAC: Normal. IMPRESSION: 1. Status post right upper lobectomy. 2. Persistent pulmonary leak. 3. COVID. PLAN: No change in her management today. Surgery is considering a pleurodesis. MMODL / IJN: [id number] /
--- NOTE | 2024-02-09 02:11 | PN ---
PROGRESS NOTE DATE OF SERVICE: 02/06/2024 CHIEF COMPLAINT: Status post right upper lobectomy with persistent leak. HISTORY OF PRESENT ILLNESS: This lady is doing fairly well, but the chest tube still present and she is still leaking. She does have elevated white count of 23,200. It was 18,700 yesterday. She also has developed a temperature of 102. She does test positive for COVID. She has had no significant cough, headache, etc. PHYSICAL EXAMINATION: CHEST: Breath sounds are heard bilaterally. CARDIAC: Normal. ABDOMEN: Soft, nontender. IMPRESSION: 1. Pulmonary leak after right upper lobectomy for squamous cell carcinoma. 2. COVID. PLAN: Continue to follow with Vascular Surgery. MMODL / IJN: [id number] /
--- NOTE | 2024-02-09 02:32 | PN ---
PROGRESS NOTE DATE OF SERVICE: 02/07/2024 CHIEF COMPLAINT: Carcinoma of the right upper lobe, status post lobectomy with pulmonary leak. HISTORY OF PRESENT ILLNESS: This lady is doing fairly well, but there has been no interval change in her pneumothorax. Chest tube still in place. Temperature is down to 99.4 related to her COVID. PHYSICAL EXAMINATION: GENERAL: She is awake and alert. VITAL SIGNS: Normal. CHEST: Breath sounds are heard bilaterally. CARDIAC: Normal. IMPRESSION: 1. Status post right upper lobectomy for carcinoma. 2. Pulmonary leak. 3. COVID. PLAN: Continue to follow with Vascular Surgery and Pulmonology. MMODL / IJN: [id number] /
--- NOTE | 2024-02-09 07:59 | XR ---
EXAMINATION TYPE: XR chest 1V portable DATE OF EXAM: 02/09/2024 HISTORY: Shortness of breath. COMPARISON: 02/08/2024 TECHNIQUE: Single view of the chest is submitted. FINDINGS: Right apical pneumothorax persists with apical pleural distance of 2.2 cm versus 2.5 cm previously. C oarse infiltrates are seen throughout both lung jamil. Small right-sided effusion unchanged. Right-s ided chest tube unchanged. There is no evidence for focal infiltrate. The heart is stable. Hilar and mediastinal structures are within normal limits. Degenerative changes are seen of the dorsal spine. IMPRESSION: 1. Right apical pneumothorax persists with apical pleural distance of 2.2 cm versus 2.5 cm previousl y. Coarse infiltrates are seen throughout both lung jamil. Small right-sided effusion unchanged. [facility], , 02/09/2024 7:57 AM
[2024-02-09 10:45] LABS: African American GFR (CKD) >90 (>60 ml/min/1.73 sqM); Anion Gap 4 mmol/L; Blood Urea Nitrogen 10 mg/dL (7-17); Calcium 8.3 mg/dL (8.4-10.2); Carbon Dioxide 25 mmol/L (22-30); Chloride 111 mmol/L (98-107); Glucose 72 mg/dL (74-99); Magnesium 1.7 mg/dL (1.6-2.3); Non-African American GFR(CKD) >90 (>60 ml/min/1.73 sqM); Potassium 4.1 mmol/L (3.5-5.1); Sodium 140 mmol/L (137-145)
--- NOTE | 2024-02-09 10:46 | P.PN ---
Subjective Progress Note Date: 02/09/24 Principal diagnosis: 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, leukocytosis, acute hypoxemia, sinus tachycardia. Previous medical history of longstanding COPD, asthma, obstructive sleep apnea, respiratory failure status post tracheostomy placement, chronic ongoing tobacco dependence, renal failure with dialysis with resolution, left bundle branch block followed by Dr. Katz, hypothyroidism, chronic back pain on chronic narcotics, migraine headaches, TIA in 2020 with no residual deficits, sleeve gastrectomy, splenectomy, anxiety and depression. POD #14 Robotic assisted thoracoscopic right upper lobectomy with lysis of adhesions and mediastinal lymph node dissection. Persistent airleak greater than 5 days, somewhat expected due to significant lung disease and chronic tobacco dependence Covid positive, unexpected The patient was seen and examined with Dr. Betancourt this morning sitting up in bed on the cardiac stepdown unit. Remains in sinus rhythm, blood pressure mostly stable. Remains on high flow nasal cannula with oxygen saturation in the high 90s. She does look and feel a bit better than yesterday. Right pleural chest tube continues to continuous wall suction, continues to have minimal drainage, continues to have intermittent airleak with coughing. Labs, x-ray reviewed this morning. No other new concerns. Continues on COVID cocktail. Objective - Vital Signs Vital signs: Vital Signs Temp 97.5 F L 02/09/24 08:00 Pulse 85 02/09/24 08:00 Resp 16 02/09/24 08:00 BP 144/80 02/09/24 08:00 Pulse Ox 92 L 02/09/24 08:21 FiO2 Intake & Output 02/08/24 02/09/24 02/09/24 18:59 06:59 18:59 Intake Total 1740 10 Output Total 41 Balance 1740 -31 Weight 50.5 kg Intake: IV 10 Invasive Line 5 10 Oral 1740 Output: Chest Tube Drainage 41 Chest Tube Right Lateral 41 Chest Other: Voiding Method Toilet Toilet # Voids 1 1 # Bowel Movements 1 - Exam CONSTITUTIONAL: Cooperative sitting up in bed, does not appear to be in significant distress RESPIRATORY: Lungs sounds diminished bilaterally with expiratory wheeze heard throughout. Respirations even, nonlabored. Currently on 7 L high flow nasal cannula with oxygen saturation 98%. Able to achieve 750 mL on incentive spirometry. Strong productive cough. CARDIOVASCULAR: S1, S2 present. Regular rate and rhythm, sinus rhythm on telemetry. Palpable peripheral pulses bilaterally. No edema present. No calf pain or tenderness noted GASTROINTESTINAL: Abdomen soft, nontender, nondistended. Active bowel sounds present 4 quadrants. Tolerating diet. Positive bowel movement 02/07 GENITOURINARY: Continues to void INTEGUMENTARY: Skin is warm and dry. Thoracic incision well approximated and covered with dry intact dressing. NEUROLOGIC: Cranial nerves II through XII intact MUSKULOSKELETAL: Able to move all extremities, strength equal bilaterally, gait normal PSYCHIATRIC: Alert and oriented to person place and time, appropriate affect, intact judgment and insight INVASIVE LINES AND TUBES: Right pleural chest tubes present to continuous wall suction, intermittent air leak present with forceful coughing, 40 mL drainage in the last 24 hours - Allied health notes Allied health notes reviewed: nursing - Labs CBC & Chem 7: 02/08/24 06:35 02/08/24 06:35 Labs: Microbiology - Last 24 Hours (Table) 02/06/24 07:15 Blood Culture - Preliminary Blood - Imaging and Cardiology Chest x-ray: report reviewed, image reviewed Assessment and Plan Assessment: 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, status post robotic assisted thoracoscopic right upper lobectomy, final pathology consistent with 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 Katz Hypothyroidism Chronic back pain on chronic narcotics TIA in 2020 with no residual deficits Anxiety and depression. Plan: Continue right pleural chest tube to continuous wall suction, monitor for airleak resolution Wean O2 as tolerated Continue COVID cocktail Continue beta-blockers Encourage incentive spirometry use 10 times every hour while awake Increase activity, ambulate as tolerated Will monitor daily labs and x-rays Bronchodilators per pulmonology Pain control per current medication regimen More recommendations to follow
[2024-02-09 10:47] LABS: HCT 34.4 % (34.0-46.0); HGB 10.8 gm/dL (11.4-16.0); Hypochromasia Slight; MCH 32.2 pg (25.0-35.0); MCHC 31.5 g/dL (31.0-37.0); MCV 102.2 fL (80.0-100.0); Macrocytosis Slight; Mean Platelet Volume 9.3; Platelet Count 692 k/uL (150-450); RBC 3.37 m/uL (3.80-5.40); RDW 14.2 % (11.5-15.5); WBC 15.4 k/uL (3.8-10.6)
--- NOTE | 2024-02-09 13:33 | P.PN ---
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 Status post robotic assisted thoracoscopic right upper lobectomy with lysis of adhesions and mediastinal lymph node dissection. Postoperative day # 14 persistent air leak and the patient continues to have right-sided chest tube in place. Postsurgical pathologic findings are consistent with stage TIc N0 M0 disease. 01/30/2024, the patient is being seen for a follow-up. The patient is is currently on room air oxygen and the patient is ambulating in the hallway without any major difficulties. The patient is status post right upper lobe resection and the patient is postop day #4. She continues to have the chest tube on the right side of the chest. There is still some limited air leak and the patient's chest tube In place for today. No evidence of any pneumothorax. She is noted squamous cell carcinoma and she underwent robotic assisted thoracoscopic right upper lobe resection and mediastinal lymph node dissection. She is also known to have COPD. The white cell count is at 20 with a hemoglobin of 12.3 and a platelet count of 469. BUN 18 with a creatinine of 0.6 and a sodium level at 138. Remains on DuoNeb nebulized treatments [id number]. Dilaudid for pain control. Home medications have been resumed. She is also on Symbicort as maintenance. On today's evaluation of 01/31/2024, the patient is being seen for a follow-up. No specific complaints and the patient remains on room air oxygen. There is intermittent air leak in the right-sided chest tube which is currently to waterseal. The output is serosanguineous in the order of 10 cc over the past 24 hours. The patient remains on room air oxygen. The patient is using incentive spirometer and pulling approximately 8000. She is ambulating. No significant complaints. She is on metoprolol 25 mg twice a day and she has some mild sinus tachycardia. Otherwise, the white cell count of 18 with a hemoglobin of 13 and a platelet count of 483. The BUN is 20 mg from 0.7 and a sodium level is at 140 with a potassium level of 4.9. No other significant events overnight. We decided to keep the chest tube in for another 24 hours. On 02/01/2024, the patient is being seen for a follow-up. The patient has no specific complaints. She continues to ambulate. There is still persistent air leak in the right-sided chest tube along with a small right-sided pneumothorax. Nevertheless, the patient remains on room air oxygen. No significant chest pain. No respiratory distress. Final pathology was consistent with squamous cell carcinoma and the patient and a stage Ic N0 M0 disease and the postsurgical pathology, and staging were discussed with the patient. Otherwise, the patient is doing well. Clinically and hemodynamically stable. Right-sided chest will be kept in place based on the presence of a right-sided pneumothorax and persistent air leak. On 02/02/2024, patient is being seen for a follow-up. The patient continues to have a right apical pneumothorax on today's chest x-ray and the patient also has ongoing air leak as noted on the chest tube. She remains asymptomatic. No sig nificant shortness of breath. No chest pain. She is on room air oxygen with a pulse ox of 96%. No chest pain. The white cell count at 19.4 with a hemoglobin of 12.8 and a platelet count of 559. BUN 13 with a creatinine 0.6 and a sodium levels at 139. The patient continues to ambulate. The chest tube will be kept in place as long as there is an ongoing air leak and a persistent pneumothorax on today's chest x-ray. She is using incentive spirometer. She is pulling approximately thousand. Cardiac rhythm is sinus. No other significant events overnight. The right chest tube is to waterseal for now. 02/03/2024, the patient is being seen for a follow-up. Some intermittent air leak is still seen on today's chest tube evaluation. The pneumothorax on the right side is significantly dropped in size and the patient has a tiny 5 to 10% right apical pneumothorax on today's chest x-ray. She remains on room air oxygen. She is ambulating. She is still requiring Percocet for pain control. Her pain is under adequate control for now. She is on DuoNeb updraTravelShark. No new labs from today. Most recent labs from yesterday were essentially within normal limits. 02/04/2024, the patient is being seen for a follow-up. The patient had a follow-up chest x-ray today and there is no evidence of any pneumothorax. There is still some intermittent air leak from the chest tube and based on that we decided to keep the chest tube in place. She remains on room air oxygen. No new complaints otherwise for now. Afebrile. No chest pain. Right-sided chest tube still in place. White cell count is 18 with a hemoglobin of 12.6 and a platelet count of 509. BUN is 18 with a creatinine of 0.7 and the patient has a sodium level of 138. On 01/26/2024, the patient has a right apical pneumothorax in the order of 10%. Another area of pneumothorax is probably present in the right lung base. Chest tube remains in a good location and the patient has intermittent air leak. She remains on room air oxygen. BUN is 18 with a creatinine 0.7. Sodium levels at 138. WBC count of 18.7 with a hemoglobin 12.6. Denies having any new complaints. Patient seen today on 02/06/2024, patient has developed what seems to be a COVID-19 pneumonia on this admission, chest x-ray is showing worsening infi ltrates, clinically the patient has symptoms of pneumonia and for this I am recommending that we start the patient on remdesivir. The changes on the chest x-ray are all new. And his testing yesterday showed COVID-19 infection. This is clearly consistent with COVID-19 pneumonia and the patient will qualify for remdesivir. And she will be placed on the COVID-19 cocktail. ABG today showed a pO2 of 54 pCO2 37 pH of 7.50 basic metabolic profile is normal renal profile is normal WBC count is 23.2 hemoglobin 11.6 Patient was evaluated today on 02/07/2024, patient continues to have persistent air leak from her right-sided chest tube. Continues to have a small pneumothorax. Patient is on remdesivir for her COVID-19 infection along with the COVID-19 cocktail. Feeling about the same. Intermittent cough, no wheezing, no fever, no chills, no hemoptysis. And no chest pain. WBC count is 15.8 hemoglobin is 11.4 basic metabolic profile is normal renal profile is normal procalcitonin level is normal follow-up chest x-ray was noted, she does have right-sided pneumothorax, hence the place was back on suction Patient was seen today on 02/08/2024, she is now postoperative day#13 Robotic assisted thoracoscopic right upper lobectomy with lysis of adhesions and mediastinal lymph node dissection. Patient is doing well continues to have an air leak, continues to have right-sided pneumothorax remains on remdesivir for her acute COVID-19 pneumonia. Patient is not in any distress. WBC count is 14.8 hemoglobin is 10.8 basic metabolic profile is normal renal profile is normalPatient is on 6 L nasal cannula with O2 sats of 98% Seen today on 02/09/2024, patient is now postoperative day #14. Continues to have air leak, continues to have a small tiny apical pneumothorax. Remains on wall suction, minimal drainage is noted. Chest x-ray was reviewed patient still on the COVID-19 cocktail including remdesivir. Does not seem to be in any distress. Feeling better overall clinically WBC count is 15.4 hemoglobin is 10.8 electrolytes are normal and renal profile is normal Objective - Vital Signs Vital signs: Vital Signs Temp 98.4 F 02/09/24 11:56 Pulse 65 02/09/24 11:56 Resp 16 02/09/24 11:56 BP 144/80 02/09/24 08:00 Pulse Ox 94 L 02/09/24 11:56 FiO2 Intake & Output 02/08/24 02/09/24 02/09/24 18:59 06:59 18:59 Intake Total 1740 10 118 Output Total 41 0 Balance 1740 -31 118 Weight 50.5 kg Intake: IV 10 Invasive Line 5 10 Oral 1740 118 Output: Chest Tube Drainage 41 0 Chest Tube Right Lateral 41 0 Chest Other: Voiding Method Toilet Toilet Toilet # Voids 1 1 # Bowel Movements 1 - Exam CONSTITUTIONAL: 48-year-old female in no distress on 6 L nasal cannula, O2 saturation is 94% RESPIRATORY: Diminished breath sound bilaterally minimal crackles at the left base CARDIOVASCULAR: S1, S2 present. Regular rate and tachycardic rhythm, sinus tachycardia Palpable peripheral pulses bilaterally. No edema present. No calf pain or tenderness noted. SCDs present. GASTROINTESTINAL: Abdomen soft, nontender, nondistended. Active bowel sounds present 4 quadrants. INTEGUMENTARY: No rashes right chest thoracic incision well approximated and covered with dry intact dressing. NEUROLOGIC: Cranial nerves II through XII intact, alert oriented x 3 MUSKULOSKELETAL: No deformities no limitation range of motion PSYCHIATRIC: normal mood affect and normal mental status examined INVASIVE LINES AND TUBES: Right pleural chest tube present to wall suction - Labs CBC & Chem 7: 02/09/24 09:16 02/09/24 09:16 Labs: Abnormal Lab Results - Last 24 Hours (Table) 02/09/24 02/09/24 Range/Units 09:16 09:16 WBC 15.4 H (3.8-10.6) k/uL RBC 3.37 L (3.80-5.40) m/uL Hgb 10.8 L (11.4-16.0) gm/dL MCV 102.2 H (80.0-100.0) fL Plt Count 692 H (150-450) k/uL Chloride 111 H (98-107) mmol/L Creatinine 0.48 L (0.52-1.04) mg/dL Glucose 72 L (74-99) mg/dL Calcium 8.3 L (8.4-10.2) mg/dL Microbiology - Last 24 Hours (Table) 02/06/24 07:15 Blood Culture - Preliminary Blood Assessment and Plan Assessment: Impression 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 Status post robotic assisted thoracoscopic right upper lobectomy with lysis of adhesions and mediastinal lymph node dissection. Postoperative day # 14, persistent air leak and the patient continues to have right-sided chest tube in place. Postsurgical pathologic findings are consistent with stage TIc N0 M0 disease. Right apical pneumothorax, diminished/almost recovered on today's chest x-ray and the patient continues to have some intermittent airleak through the chest tube while on waterseal. Chronic hypoxic respiratory failure secondary to heart COPD. FEV1 value 66%. Chronic and ongoing tobacco dependence. 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 Acute COVID-19 pneumonia is strongly suspected Hypertension. Hypothyroidism. Obstructive sleep apnea. Sleeve gastrectomy. Splenectomy in 2018. History of anxiety/depression. Leukocytosis, improving Recommendation: Continue chest tube to wall suction Continue oxygen and titrate accordingly Continue present supportive care measures Continue COVID-19 cocktail, continue remdesivir Continue bronchodilators Continue updrafts including DuoNeb Continue incentive spirometry Continue ambulation Continue to follow not quite ready for discharge planning Time with Patient: Less than 30
[2024-02-09] MEDS: HYDROmorphone 2 MG/ML 1 ML SYRINGE IVP PRN (17:36)
[2024-02-10 07:53] LABS: HCT 36.4 % (34.0-46.0); HGB 11.3 gm/dL (11.4-16.0); Hypochromasia Moderate; MCH 31.9 pg (25.0-35.0); MCV 102.8 fL (80.0-100.0); Macrocytosis Slight; Mean Platelet Volume 7.9; Platelet Count 722 k/uL (150-450); RBC 3.54 m/uL (3.80-5.40); RDW 13.7 % (11.5-15.5); WBC 15.9 k/uL (3.8-10.6)
[2024-02-10 08:34] LABS: African American GFR (CKD) >90 (>60 ml/min/1.73 sqM); Anion Gap 3 mmol/L; Blood Urea Nitrogen 10 mg/dL (7-17); Calcium 8.9 mg/dL (8.4-10.2); Carbon Dioxide 31 mmol/L (22-30); Chloride 106 mmol/L (98-107); Glucose 80 mg/dL (74-99); Magnesium 1.8 mg/dL (1.6-2.3); Non-African American GFR(CKD) >90 (>60 ml/min/1.73 sqM); Potassium 4.6 mmol/L (3.5-5.1); Sodium 140 mmol/L (137-145)
--- NOTE | 2024-02-10 09:16 | P.PN ---
Subjective Progress Note Date: 02/10/24 Principal diagnosis: 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, leukocytosis, acute hypoxemia, sinus tachycardia. Previous medical history of longstanding COPD, asthma, obstructive sleep apnea, respiratory failure status post tracheostomy placement, chronic ongoing tobacco dependence, renal failure with dialysis with resolution, left bundle branch block followed by Dr. Katz, hypothyroidism, chronic back pain on chronic narcotics, migraine headaches, TIA in 2020 with no residual deficits, sleeve gastrectomy, splenectomy, anxiety and depression. POD #15 Robotic assisted thoracoscopic right upper lobectomy with lysis of adhesions and mediastinal lymph node dissection. Persistent airleak greater than 5 days, somewhat expected due to significant lung disease and chronic tobacco dependence Covid positive, unexpected The patient was seen and examined in follow-up today February 10, 2024 at her bedside on the third floor cardiac stepdown unit. She is currently sitting up in her bed, is awake, alert, oriented x 3 and is in no acute apparent distress. She tolerated her breakfast this morning, denies any complaints of nausea, pain at this time, although reports she is having some episodes of shortness of breath with activity. She remains on 4 L of nasal cannula oxygen, oxygen saturations currently 93%. She is achieving 1000 mL on her incentive spirometry with encouragement. Remote telemetry showing normal sinus rhythm heart rate 68 bpm. Right pleural chest tube remains in place to low continuous wall suction - 20 cm H2O. Intermittent airleak is present. Draining thin serosanguineous drainage with 35 mL output in the last 24 hours. She reports she has been up ambulating in her room independently and getting herself to the bathroom. She remains on isolation for COVID-19. She remains afebrile in the last 24 hours. Laboratory and chest x-ray results reviewed. Objective - Vital Signs Vital signs: Vital Signs Temp 98.2 F 02/10/24 04:00 Pulse 71 02/10/24 04:00 Resp 18 02/10/24 04:00 BP 152/79 02/10/24 04:00 Pulse Ox 96 02/10/24 04:00 FiO2 Intake & Output 02/09/24 02/10/24 02/10/24 18:59 06:59 18:59 Intake Total 920 10 Output Total 12 20 Balance 908 -10 Weight 50.3 kg Intake: IV 10 Invasive Line 5 10 Oral 920 Output: Chest Tube Drainage 12 20 Chest Tube Right Lateral 12 20 Chest Other: Voiding Method Toilet Toilet # Voids 5 1 - Exam CONSTITUTIONAL: Appears comfortable, cooperative, no acute distress RESPIRATORY: Lungs sounds diminished bilaterally. Respirations symmetrical, nonlabored. Currently on 4 L nasal cannula with oxygen saturation 93%. Able to achieve 1000 mL her on incentive spirometry. Strong cough. CARDIOVASCULAR: S1, S2 present. Regular rate and rhythm, normal sinus rhythm on telemetry, heart rate 68 bpm with left bundle branch block. Palpable peripheral pulses bilaterally. No edema present. No calf pain or tenderness noted. SCDs present. GASTROINTESTINAL: Abdomen soft, nontender, nondistended. Active bowel sounds present 4 quadrants. Tolerating diet. GENITOURINARY: Continues to void. INTEGUMENTARY: Skin is warm and dry with evidence of good perfusion. Right chest thoracic incision well approximated and covered with dry intact dressing. NEUROLOGIC: Cranial nerves II through XII intact MUSKULOSKELETAL: Able to move all extremities, strength equal bilaterally, gait normal. PSYCHIATRIC: Alert and oriented to person place and time, appropriate affect, intact judgment and insight INVASIVE LINES AND TUBES: Right pleural chest tube present and to low continuous wall suction -20 cm H2O, intermittent airleak is present. Right pleural chest tube with 35 mL thin serosanguineous drainage in the last 24 hours. - Allied health notes Allied health notes reviewed: nursing - Labs CBC & Chem 7: 02/10/24 07:10 02/10/24 07:10 Labs: Abnormal Lab Results - Last 24 Hours (Table) 02/09/24 02/09/24 02/10/24 Range/Units 09:16 09:16 07:10 WBC 15.4 H 15.9 H (3.8-10.6) k/uL RBC 3.37 L 3.54 L (3.80-5.40) m/uL Hgb 10.8 L 11.3 L (11.4-16.0) gm/dL MCV 102.2 H 102.8 H (80.0-100.0) fL Plt Count 692 H 722 H (150-450) k/uL Chloride 111 H (98-107) mmol/L Carbon Dioxide (22-30) mmol/L Creatinine 0.48 L (0.52-1.04) mg/dL Glucose 72 L (74-99) mg/dL Calcium 8.3 L (8.4-10.2) mg/dL 02/10/24 Range/Units 07:10 WBC (3.8-10.6) k/uL RBC (3.80-5.40) m/uL Hgb (11.4-16.0) gm/dL MCV (80.0-100.0) fL Plt Count (150-450) k/uL Chloride (98-107) mmol/L Carbon Dioxide 31 H (22-30) mmol/L Creatinine (0.52-1.04) mg/dL Glucose (74-99) mg/dL Calcium (8.4-10.2) mg/dL Microbiology - Last 24 Hours (Table) 02/06/24 07:15 Blood Culture - Preliminary Blood - Imaging and Cardiology Chest x-ray: report reviewed, image reviewed Assessment and Plan Assessment: 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, status post robotic assisted thoracoscopic right upper lobectomy, final pathology consistent with 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 Katz Hypothyroidism Chronic back pain on chronic narcotics TIA in 2020 with no residual deficits Anxiety and depression. Plan: Continue right pleural chest tube to continuous wall suction, monitor for airleak resolution. Wean O2 as tolerated, encourage incentive spirometry use 10 times every hour while awake. Continue COVID cocktail. Continue beta-katheryn. Increase activity, ambulate as tolerated. Will monitor daily labs and chest x-rays, monitor for pneumothorax resolution. Bronchodilators per pulmonology. Pain control per current medication regimen. More recommendations to follow based on patient's clinical course. Time with Patient: Greater than 30
--- NOTE | 2024-02-10 09:27 | XR ---
EXAMINATION TYPE: XR chest 1V portable DATE OF EXAM: 02/10/2024 HISTORY: Shortness of breath. COMPARISON: 02/09/2024 TECHNIQUE: Single view of the chest is submitted. FINDINGS: Demonstrated are scattered senescent parenchymal change. Right apical pneumothorax is stable and alicia sures 2.1 cm in apical pleural distance versus 2.1 cm previously. Right-sided chest tube is unchanged in position. Coarse infiltrates are seen throughout both lung jamil with slight interval improvement. The heart is stable. Hilar and mediastinal structures are within normal limits. Degenerative changes are seen of the dorsal spine. IMPRESSION: 1. Right apical pneumothorax is stable. 2.Coarse infiltrates are seen throughout both lung jamil with slight interval improvement. [facility], , 02/10/2024 8:02 AM
[2024-02-10] MEDS: MAGNESIUM SULFATE-D5W PMX 1 GM in DEXTROSE/WATER 1 100ML.BAG IVPB ONE (09:30)
--- NOTE | 2024-02-10 11:10 | PN ---
PROGRESS NOTE DATE OF SERVICE: 02/09/2024 CHIEF COMPLAINT: Right upper lobe squamous cell carcinoma. HISTORY OF PRESENT ILLNESS: This lady is doing well, but she still has a persistent leak on the right side. She also has COVID, but she is not having any significant symptoms. PHYSICAL EXAMINATION: CHEST: Breath sounds are heard on both sides. CARDIAC: Normal. ABDOMEN: Soft, nontender. IMPRESSION: 1. Status post right upper lobectomy with pulmonary leak. 2. COVID. PLAN: Continue to follow and await any recommendations from Surgery regarding her persistent leak and pneumothorax. MMODL / IJN: [id number] /
--- NOTE | 2024-02-10 14:15 | P.PN ---
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 Status post robotic assisted thoracoscopic right upper lobectomy with lysis of adhesions and mediastinal lymph node dissection. Postoperative day # 15 persistent air leak and the patient continues to have right-sided chest tube in place. Postsurgical pathologic findings are consistent with stage TIc N0 M0 disease. 01/30/2024, the patient is being seen for a follow-up. The patient is is currently on room air oxygen and the patient is ambulating in the hallway without any major difficulties. The patient is status post right upper lobe resection and the patient is postop day #4. She continues to have the chest tube on the right side of the chest. There is still some limited air leak and the patient's chest tube In place for today. No evidence of any pneumothorax. She is noted squamous cell carcinoma and she underwent robotic assisted thoracoscopic right upper lobe resection and mediastinal lymph node dissection. She is also known to have COPD. The white cell count is at 20 with a hemoglobin of 12.3 and a platelet count of 469. BUN 18 with a creatinine of 0.6 and a sodium level at 138. Remains on DuoNeb nebulized treatments [id number]. Dilaudid for pain control. Home medications have been resumed. She is also on Symbicort as maintenance. On today's evaluation of 01/31/2024, the patient is being seen for a follow-up. No specific complaints and the patient remains on room air oxygen. There is intermittent air leak in the right-sided chest tube which is currently to waterseal. The output is serosanguineous in the order of 10 cc over the past 24 hours. The patient remains on room air oxygen. The patient is using incentive spirometer and pulling approximately 8000. She is ambulating. No significant complaints. She is on metoprolol 25 mg twice a day and she has some mild sinus tachycardia. Otherwise, the white cell count of 18 with a hemoglobin of 13 and a platelet count of 483. The BUN is 20 mg from 0.7 and a sodium level is at 140 with a potassium level of 4.9. No other significant events overnight. We decided to keep the chest tube in for another 24 hours. On 02/01/2024, the patient is being seen for a follow-up. The patient has no specific complaints. She continues to ambulate. There is still persistent air leak in the right-sided chest tube along with a small right-sided pneumothorax. Nevertheless, the patient remains on room air oxygen. No significant chest pain. No respiratory distress. Final pathology was consistent with squamous cell carcinoma and the patient and a stage Ic N0 M0 disease and the postsurgical pathology, and staging were discussed with the patient. Otherwise, the patient is doing well. Clinically and hemodynamically stable. Right-sided chest will be kept in place based on the presence of a right-sided pneumothorax and persistent air leak. On 02/02/2024, patient is being seen for a follow-up. The patient continues to have a right apical pneumothorax on today's chest x-ray and the patient also has ongoing air leak as noted on the chest tube. She remains asymptomatic. No sig nificant shortness of breath. No chest pain. She is on room air oxygen with a pulse ox of 96%. No chest pain. The white cell count at 19.4 with a hemoglobin of 12.8 and a platelet count of 559. BUN 13 with a creatinine 0.6 and a sodium levels at 139. The patient continues to ambulate. The chest tube will be kept in place as long as there is an ongoing air leak and a persistent pneumothorax on today's chest x-ray. She is using incentive spirometer. She is pulling approximately thousand. Cardiac rhythm is sinus. No other significant events overnight. The right chest tube is to waterseal for now. 02/03/2024, the patient is being seen for a follow-up. Some intermittent air leak is still seen on today's chest tube evaluation. The pneumothorax on the right side is significantly dropped in size and the patient has a tiny 5 to 10% right apical pneumothorax on today's chest x-ray. She remains on room air oxygen. She is ambulating. She is still requiring Percocet for pain control. Her pain is under adequate control for now. She is on DuoNeb updraGatheredtable. No new labs from today. Most recent labs from yesterday were essentially within normal limits. 02/04/2024, the patient is being seen for a follow-up. The patient had a follow-up chest x-ray today and there is no evidence of any pneumothorax. There is still some intermittent air leak from the chest tube and based on that we decided to keep the chest tube in place. She remains on room air oxygen. No new complaints otherwise for now. Afebrile. No chest pain. Right-sided chest tube still in place. White cell count is 18 with a hemoglobin of 12.6 and a platelet count of 509. BUN is 18 with a creatinine of 0.7 and the patient has a sodium level of 138. On 01/26/2024, the patient has a right apical pneumothorax in the order of 10%. Another area of pneumothorax is probably present in the right lung base. Chest tube remains in a good location and the patient has intermittent air leak. She remains on room air oxygen. BUN is 18 with a creatinine 0.7. Sodium levels at 138. WBC count of 18.7 with a hemoglobin 12.6. Denies having any new complaints. Patient seen today on 02/06/2024, patient has developed what seems to be a COVID-19 pneumonia on this admission, chest x-ray is showing worsening infi ltrates, clinically the patient has symptoms of pneumonia and for this I am recommending that we start the patient on remdesivir. The changes on the chest x-ray are all new. And his testing yesterday showed COVID-19 infection. This is clearly consistent with COVID-19 pneumonia and the patient will qualify for remdesivir. And she will be placed on the COVID-19 cocktail. ABG today showed a pO2 of 54 pCO2 37 pH of 7.50 basic metabolic profile is normal renal profile is normal WBC count is 23.2 hemoglobin 11.6 Patient was evaluated today on 02/07/2024, patient continues to have persistent air leak from her right-sided chest tube. Continues to have a small pneumothorax. Patient is on remdesivir for her COVID-19 infection along with the COVID-19 cocktail. Feeling about the same. Intermittent cough, no wheezing, no fever, no chills, no hemoptysis. And no chest pain. WBC count is 15.8 hemoglobin is 11.4 basic metabolic profile is normal renal profile is normal procalcitonin level is normal follow-up chest x-ray was noted, she does have right-sided pneumothorax, hence the place was back on suction Patient was seen today on 02/08/2024, she is now postoperative day#13 Robotic assisted thoracoscopic right upper lobectomy with lysis of adhesions and mediastinal lymph node dissection. Patient is doing well continues to have an air leak, continues to have right-sided pneumothorax remains on remdesivir for her acute COVID-19 pneumonia. Patient is not in any distress. WBC count is 14.8 hemoglobin is 10.8 basic metabolic profile is normal renal profile is normalPatient is on 6 L nasal cannula with O2 sats of 98% Seen today on 02/09/2024, patient is now postoperative day #14. Continues to have air leak, continues to have a small tiny apical pneumothorax. Remains on wall suction, minimal drainage is noted. Chest x-ray was reviewed patient still on the COVID-19 cocktail including remdesivir. Does not seem to be in any distress. Feeling better overall clinically WBC count is 15.4 hemoglobin is 10.8 electrolytes are normal and renal profile is normal Reevaluate today on 02/10/2024, patient is now postoperative day #15, doing fairly well except she continues to have ongoing air leak, continues to have small right-sided pneumothorax, patient is comfortable, not in distress, cardiothoracic surgery is entertaining the possibility of talc pleurodesis. At this point the patient is clinically stable, remains on remdesivir, and she remains on the COVID-19 cocktail. Objective - Vital Signs Vital signs: Vital Signs Temp 98 F 02/10/24 09:30 Pulse 73 02/10/24 12:00 Resp 18 02/10/24 12:00 BP 138/82 02/10/24 12:00 Pulse Ox 92 L 02/10/24 12:00 FiO2 Intake & Output 02/09/24 02/10/24 02/10/24 18:59 06:59 18:59 Intake Total 920 10 358 Output Total 12 20 0 Balance 908 -10 358 Weight 50.3 kg Intake: IV 10 Invasive Line 5 10 Oral 920 358 Output: Chest Tube Drainage 12 20 0 Chest Tube Right Lateral 12 20 0 Chest Other: Voiding Method Toilet Toilet Toilet # Voids 5 1 - Exam CONSTITUTIONAL: 48-year-old female in no distress on 4 L nasal cannula O2 sat is 92% RESPIRATORY: Diminished breath sound bilaterally crackles at the bases bilaterally CARDIOVASCULAR: S1, S2 present. Regular rate and tachycardic rhythm, sinus tachycardia Palpable peripheral pulses bilaterally. No edema present. No calf pain or tenderness noted. SCDs present. GASTROINTESTINAL: Abdomen soft, nontender, nondistended. Active bowel sounds present 4 quadrants. INTEGUMENTARY: No rashes right chest thoracic incision well approximated and covered with dry intact dressing. NEUROLOGIC: Cranial nerves II through XII intact, alert oriented x 3 MUSKULOSKELETAL: No deformities no limitation range of motion PSYCHIATRIC: normal mood affect and normal mental status examined INVASIVE LINES AND TUBES: Right pleural chest tube present to wall suction - Labs CBC & Chem 7: 02/10/24 07:10 02/10/24 07:10 Labs: Abnormal Lab Results - Last 24 Hours (Table) 02/10/24 02/10/24 Range/Units 07:10 07:10 WBC 15.9 H (3.8-10.6) k/uL RBC 3.54 L (3.80-5.40) m/uL Hgb 11.3 L (11.4-16.0) gm/dL MCV 102.8 H (80.0-100.0) fL Plt Count 722 H (150-450) k/uL Carbon Dioxide 31 H (22-30) mmol/L Microbiology - Last 24 Hours (Table) 02/06/24 07:15 Blood Culture - Preliminary Blood Assessment and Plan Assessment: Impression 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 Status post robotic assisted thoracoscopic right upper lobectomy with lysis of adhesions and mediastinal lymph node dissection. Postoperative day # 15, persistent air leak and the patient continues to have right-sided chest tube in place. Postsurgical pathologic findings are consistent with stage TIc N0 M0 disease. Right apical pneumothorax, diminished/almost recovered on today's chest x-ray and the patient continues to have some intermittent airleak through the chest tube while on waterseal. Chronic hypoxic respiratory failure secondary to heart COPD. FEV1 value 66%. Chronic and ongoing tobacco dependence. 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 Acute COVID-19 pneumonia is strongly suspected Hypertension. Hypothyroidism. Obstructive sleep apnea. Sleeve gastrectomy. Splenectomy in 2018. History of anxiety/depression. Leukocytosis, improving Recommendation: Thoracic surgery is considering talc pleurodesis Continue chest tube to wall suction Continue oxygen and titrate accordingly Continue present supportive care measures Continue COVID-19 cocktail, continue remdesivir Continue bronchodilators Continue updrafts including DuoNeb Continue incentive spirometry Continue ambulation Continue to follow Time with Patient: Less than 30
--- NOTE | 2024-02-10 20:37 | PN ---
PROGRESS NOTE DATE OF SERVICE: 02/10/2024 CHIEF COMPLAINT: Carcinoma of the right upper lobe, status post right upper lobectomy and pulmonary leak. HISTORY OF PRESENT ILLNESS: This lady is doing well. There has been no interval change. Chest tube still in place. PHYSICAL EXAMINATION: CHEST: Breath sounds are heard bilaterally. VITAL SIGNS: Normal. Temperature is down. IMPRESSION: 1. Status post right upper lobectomy for squamous cell carcinoma of the lung. 2. Pulmonary leak. 3. COVID. PLAN: No change in program at this time. MMODL / IJN: [id number] /
[2024-02-11 06:53] LABS: Basophils # (A) 0.1 k/uL (0-0.2); Basophils % (A) 0 %; Eosinophils # (A) 0.1 k/uL (0-0.7); Eosinophils % (A) 1 %; HCT 35.4 % (34.0-46.0); HGB 10.8 gm/dL (11.4-16.0); Hypochromasia Slight; Lymphocytes # (A) 2.9 k/uL (1.0-4.8); Lymphocytes % (A) 17 %; MCH 31.5 pg (25.0-35.0); MCHC 30.7 g/dL (31.0-37.0); MCV 102.7 fL (80.0-100.0); Macrocytosis Slight; Monocytes # (A) 1.7 k/uL (0-1.0); Monocytes % (A) 10 %; Neutrophils # (A) 12.4 k/uL (1.3-7.7); Neutrophils % (A) 71 %; Platelet Count 725 k/uL (150-450); RBC 3.44 m/uL (3.80-5.40); RDW 13.7 % (11.5-15.5); WBC 17.4 k/uL (3.8-10.6)
[2024-02-11 07:01] LABS: African American GFR (CKD) >90 (>60 ml/min/1.73 sqM); Anion Gap 5 mmol/L; Blood Urea Nitrogen 12 mg/dL (7-17); Calcium 8.6 mg/dL (8.4-10.2); Carbon Dioxide 28 mmol/L (22-30); Chloride 105 mmol/L (98-107); Glucose 71 mg/dL (74-99); Magnesium 1.9 mg/dL (1.6-2.3); Non-African American GFR(CKD) >90 (>60 ml/min/1.73 sqM); Potassium 4.5 mmol/L (3.5-5.1); Sodium 138 mmol/L (137-145)
--- NOTE | 2024-02-11 07:28 | XR ---
EXAMINATION TYPE: XR chest 1V portable DATE OF EXAM: 02/11/2024 5:41 AM CLINICAL INDICATION: Female, 48 years old with history of Pneumothorax, COVID; [facility] COMPARISON: Chest radiograph from one day prior. TECHNIQUE: XR chest 1V portable Frontal view of the chest. FINDINGS: : Lungs/Pleura: Right thoracotomy tube with right apical pneumothorax similar scattered reticular opaci ties at the left lung. There is no evidence of pleural effusion, focal consolidation, or left pneumot horax. Pulmonary vascularity: Unremarkable. Heart/mediastinum: Cardiomediastinal silhouette is unremarkable. Musculoskeletal: No acute osseous pathology. IMPRESSION: 1. Right thoracotomy tube with small right pneumothorax, stable from prior. 2. Similar left lung reticular opacities. [facility], Workstation: [id number], 02/11/2024 7:25 AM
[2024-02-11] MEDS: LIDOCAINE 1% INJ 10MG/ML (20 ML MDV) INTRADERMA PRN (10:30)
[2024-02-11] MEDS: TALC, STERILE 4 GM VIAL INTRAPLEUR ONE (12:10)
--- NOTE | 2024-02-11 12:57 | P.PN ---
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 Status post robotic assisted thoracoscopic right upper lobectomy with lysis of adhesions and mediastinal lymph node dissection. Postoperative day #16 persistent air leak and the patient continues to have right-sided chest tube in place. Postsurgical pathologic findings are consistent with stage TIc N0 M0 disease. 01/30/2024, the patient is being seen for a follow-up. The patient is is currently on room air oxygen and the patient is ambulating in the hallway without any major difficulties. The patient is status post right upper lobe resection and the patient is postop day #4. She continues to have the chest tube on the right side of the chest. There is still some limited air leak and the patient's chest tube In place for today. No evidence of any pneumothorax. She is noted squamous cell carcinoma and she underwent robotic assisted thoracoscopic right upper lobe resection and mediastinal lymph node dissection. She is also known to have COPD. The white cell count is at 20 with a hemoglobin of 12.3 and a platelet count of 469. BUN 18 with a creatinine of 0.6 and a s odium level at 138. Remains on DuoNeb nebulized treatments [id number]. Dilaudid for pain control. Home medications have been resumed. She is also on Symbicort as maintenance. On today's evaluation of 01/31/2024, the patient is being seen for a follow-up. No specific complaints and the patient remains on room air oxygen. There is intermittent air leak in the right-sided chest tube which is currently to waterseal. The output is serosanguineous in the order of 10 cc over the past 24 hours. The patient remains on room air oxygen. The patient is using incentive spirometer and pulling approximately 8000. She is ambulating. No significant complaints. She is on metoprolol 25 mg twice a day and she has some mild sinus tachycardia. Otherwise, the white cell count of 18 with a hemoglobin of 13 and a platelet count of 483. The BUN is 20 mg from 0.7 and a sodium level is at 140 with a potassium level of 4.9. No other significant events overnight. We decided to keep the chest tube in for another 24 hours. On 02/01/2024, the patient is being seen for a follow-up. The patient has no specific complaints. She continues to ambulate. There is still persistent air leak in the right-sided chest tube along with a small right-sided pneumothorax. Nevertheless, the patient remains on room air oxygen. No significant chest pain. No respiratory distress. Final pathology was consistent with squamous cell carcinoma and the patient and a stage Ic N0 M0 disease and the postsurgical pathology, and staging were discussed with the patient. Otherwise, the patient is doing well. Clinically and hemodynamically stable. Right-sided chest will be kept in place based on the presence of a right-sided pneumothorax and persistent air leak. On 02/02/2024, patient is being seen for a follow-up. The patient continues to have a right apical pneumothorax on today's chest x-ray and the patient also has ongoing air leak as noted on the chest tube. She remains asymptomatic. No sign ificant shortness of breath. No chest pain. She is on room air oxygen with a pulse ox of 96%. No chest pain. The white cell count at 19.4 with a hemoglobin of 12.8 and a platelet count of 559. BUN 13 with a creatinine 0.6 and a sodium levels at 139. The patient continues to ambulate. The chest tube will be kept in place as long as there is an ongoing air leak and a persistent pneumothorax o n today's chest x-ray. She is using incentive spirometer. She is pulling approximately thousand. Cardiac rhythm is sinus. No other significant events overnight. The right chest tube is to waterseal for now. 02/03/2024, the patient is being seen for a follow-up. Some intermittent air leak is still seen on today's chest tube evaluation. The pneumothorax on the right side is significantly dropped in size and the patient has a tiny 5 to 10% right apical pneumothorax on today's chest x-ray. She remains on room air oxygen. She is ambulating. She is still requiring Percocet for pain control. Her pain is under adequate control for now. She is on DuoNeb updrafts. No new labs from today. Most recent labs from yesterday were essentially within normal limits. 02/04/2024, the patient is being seen for a follow-up. The patient had a follow-up chest x-ray today and there is no evidence of any pneumothorax. There is still some intermittent air leak from the chest tube and based on that we decided to keep the chest tube in place. She remains on room air oxygen. No new complaints otherwise for now. Afebrile. No chest pain. Right-sided chest tube still in place. White cell count is 18 with a hemoglobin of 12.6 and a platelet count of 509. BUN is 18 with a creatinine of 0.7 and the patient has a sodium level of 138. On 01/26/2024, the patient has a right apical pneumothorax in the order of 10%. Another area of pneumothorax is probably present in the right lung base. Chest tube remains in a good location and the patient has intermittent air leak. She remains on room air oxygen. BUN is 18 with a creatinine 0.7. Sodium levels at 138. WBC count of 18.7 with a hemoglobin 12.6. Denies having any new complaints. Patient seen today on 02/06/2024, patient has developed what seems to be a COVID-19 pneumonia on this admission, chest x-ray is showing worsening infil trates, clinically the patient has symptoms of pneumonia and for this I am recommending that we start the patient on remdesivir. The changes on the chest x-ray are all new. And his testing yesterday showed COVID-19 infection. This is clearly consistent with COVID-19 pneumonia and the patient will qualify for remdesivir. And she will be placed on the COVID-19 cocktail. ABG today showed a pO2 of 54 pCO2 37 pH of 7.50 basic metabolic profile is normal renal profile is normal WBC count is 23.2 hemoglobin 11.6 Patient was evaluated today on 02/07/2024, patient continues to have persistent air leak from her right-sided chest tube. Continues to have a small pneumothorax. Patient is on remdesivir for her COVID-19 infection along with the COVID-19 cocktail. Feeling about the same. Intermittent cough, no wheezing, no fever, no chills, no hemoptysis. And no chest pain. WBC count is 15.8 hemoglobin is 11.4 basic metabolic profile is normal renal profile is normal procalcitonin level is normal follow-up chest x-ray was noted, she does have right-sided pneumothorax, hence the place was back on suction Patient was seen today on 02/08/2024, she is now postoperative day#13 Robotic assisted thoracoscopic right upper lobectomy with lysis of adhesions and mediastinal lymph node dissection. Patient is doing well continues to have an air leak, continues to have right-sided pneumothorax remains on remdesivir for her acute COVID-19 pneumonia. Patient is not in any distress. WBC count is 14.8 hemoglobin is 10.8 basic metabolic profile is normal renal profile is normalPatient is on 6 L nasal cannula with O2 sats of 98% Seen today on 02/09/2024, patient is now postoperative day #14. Continues to have air leak, continues to have a small tiny apical pneumothorax. Remains on wall suction, minimal drainage is noted. Chest x-ray was reviewed patient still on the COVID-19 cocktail including remdesivir. Does not seem to be in any distress. Feeling better overall clinically WBC count is 15.4 hemoglobin is 10.8 electrolytes are normal and renal profile is normal Reevaluate today on 02/10/2024, patient is now postoperative day #15, doing fairly well except she continues to have ongoing air leak, continues to have small right-sided pneumothorax, patient is comfortable, not in distress, cardiothoracic surgery is entertaining the possibility of talc pleurodesis. At this point the patient is clinically stable, remains on remdesivir, and she remains on the COVID-19 cocktail. Seen today on 02/11/2024, she is now postoperative day #16, continues to have air leak, and right-sided pneumothorax, patient underwent talc pleurodesis today through her right sided chest tube and this was done by Dr. Betancourt, patient had her last dose of remdesivir yesterday, otherwise she is doing fairly well Objective - Vital Signs Vital signs: Vital Signs Temp 98 F 02/11/24 09:10 Pulse 81 02/11/24 12:15 Resp 16 02/11/24 12:15 BP 163/89 02/11/24 12:15 Pulse Ox 93 L 02/11/24 12:15 FiO2 Intake & Output 02/10/24 02/11/24 02/11/24 18:59 06:59 18:59 Intake Total 1022 200 222 Output Total 0 0 0 Balance 1022 200 222 Weight 50.8 kg Intake: Oral 1022 200 222 Output: Chest Tube Drainage 0 0 0 Chest Tube Right Lateral 0 0 0 Chest Other: Voiding Method Toilet Toilet Toilet # Voids 2 2 - Exam CONSTITUTIONAL: 48-year-old female in no distress on 4 L nasal cannula O2 sat 93% RESPIRATORY: Diminished breath sound bilaterally crackles at the bases bilaterally CARDIOVASCULAR: S1, S2 present. Regular rate and tachycardic rhythm, sinus tachycardia Palpable peripheral pulses bilaterally. No edema present. No calf pain or tenderness noted. SCDs present. GASTROINTESTINAL: Abdomen soft, nontender, nondistended. Active bowel sounds present 4 quadrants. INTEGUMENTARY: No rashes right chest thoracic incision well approximated and covered with dry intact dressing. NEUROLOGIC: Cranial nerves II through XII intact, alert oriented x 3 MUSKULOSKELETAL: No deformities no limitation range of motion PSYCHIATRIC: normal mood affect and normal mental status examined INVASIVE LINES AND TUBES: Right pleural chest tube present to wall suction - Labs CBC & Chem 7: 02/11/24 06:07 02/11/24 06:07 Labs: Abnormal Lab Results - Last 24 Hours (Table) 02/11/24 02/11/24 Range/Units 06:07 06:07 WBC 17.4 H (3.8-10.6) k/uL RBC 3.44 L (3.80-5.40) m/uL Hgb 10.8 L (11.4-16.0) gm/dL MCV 102.7 H (80.0-100.0) fL MCHC 30.7 L (31.0-37.0) g/dL Plt Count 725 H (150-450) k/uL Neutrophils # 12.4 H (1.3-7.7) k/uL Monocytes # 1.7 H (0-1.0) k/uL Creatinine 0.49 L (0.52-1.04) mg/dL Glucose 71 L (74-99) mg/dL Assessment and Plan Assessment: Impression 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 Status post robotic assisted thoracoscopic right upper lobectomy with lysis of adhesions and mediastinal lymph node dissection. Postoperative day # 15, persistent air leak and the patient continues to have right-sided chest tube in place. Postsurgical pathologic findings are consistent with stage TIc N0 M0 disease. Right apical pneumothorax, diminished/almost recovered on today's chest x-ray and the patient continues to have some intermittent airleak through the chest tube while on waterseal. Chronic hypoxic respiratory failure secondary to heart COPD. FEV1 value 66%. Chronic and ongoing tobacco dependence. 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 Acute COVID-19 pneumonia is strongly suspected Hypertension. Hypothyroidism. Obstructive sleep apnea. Sleeve gastrectomy. Splenectomy in 2018. History of anxiety/depression. Leukocytosis, improving Status post talc pleurodesis for persistent right-sided pneumothorax done on 02/11/2024. Recommendation: Continue chest tube to wall suction Continue oxygen and titrate accordingly Continue present supportive care measures Finished full course of remdesivir last night Continue bronchodilators Continue updrafts including DuoNeb Continue incentive spirometry Continue ambulation Continue to follow Time with Patient: Less than 30
[2024-02-11] MEDS: MAGNESIUM SULFATE-D5W PMX 1 GM in DEXTROSE/WATER 1 100ML.BAG IVPB ONE (15:29)
--- NOTE | 2024-02-11 22:11 | PN ---
PROGRESS NOTE DATE OF SERVICE: 02/11/2024 CHIEF COMPLAINT: Right pneumothorax. HISTORY OF PRESENT ILLNESS: There has been no interval change. This lady's temperature has been down. White count is 17,400 with hemoglobin of 10.8, which has dropped slightly. PHYSICAL EXAMINATION: LUNGS: Breath sounds are heard bilaterally. CARDIAC: Normal. ABDOMEN: Soft, nontender. IMPRESSION: 1. Carcinoma of the right upper lung, status post right upper lobectomy. 2. COVID. 3. Anemia. 4. Pneumothorax. PLAN: No change in program. MMODL / IJN: [id number] /
[2024-02-12 07:42] LABS: HCT 38.7 % (34.0-46.0); HGB 12.1 gm/dL (11.4-16.0); MCH 31.4 pg (25.0-35.0); MCHC 31.2 g/dL (31.0-37.0); MCV 100.7 fL (80.0-100.0); Macrocytosis Slight; Mean Platelet Volume 8.2; Platelet Count 929 k/uL (150-450); RBC 3.84 m/uL (3.80-5.40); RDW 14.1 % (11.5-15.5)
--- NOTE | 2024-02-12 07:57 | XR ---
EXAMINATION TYPE: XR chest 1V portable DATE OF EXAM: 02/12/2024 Comparison: 02/11/2024 Clinical History: 48-year-old female s/p right upper lobectomy Findings: Apically directed right-sided chest tube in place. Small right apical pneumothorax measuring 2.1 cm v ersus 2.8 cm, previously. Volume loss right hemithorax in keeping with surgery. Trace right pleural e ffusion. Interstitial opacities persist throughout the left greater than right lungs. Impression: 1. Postsurgical change on the right with small right apical pneumothorax currently 2.1 cm versus 2.8 cm, previously. Chest tube in place. Trace right pleural effusion. 2. Prominent interstitial opacities throughout the left lung and to a lesser extent on the right are similar. [facility], , 02/12/2024 7:55 AM
[2024-02-12 08:01] LABS: African American GFR (CKD) >90 (>60 ml/min/1.73 sqM); Anion Gap 0 mmol/L; Blood Urea Nitrogen 11 mg/dL (7-17); Calcium 9.1 mg/dL (8.4-10.2); Carbon Dioxide 37 mmol/L (22-30); Chloride 103 mmol/L (98-107); Glucose 74 mg/dL (74-99); Magnesium 2.1 mg/dL (1.6-2.3); Non-African American GFR(CKD) >90 (>60 ml/min/1.73 sqM); Potassium 4.8 mmol/L (3.5-5.1); Sodium 140 mmol/L (137-145)
[2024-02-12 08:52] LABS: Band Neutrophils % 2 %; Eosinophils # (M) 0.16 k/uL (0-0.7); Lymphocytes # (M) 3.84 k/uL (1.0-4.8); Metamyelocytes # (M) 0.32 k/uL (0); Metamyelocytes % 2 %; Monocytes # (M) 1.92 k/uL (0-1.0); Myelocytes # (M) 0.16 k/uL (0); Myelocytes % 1 %; Neutrophils % (M) 60 %; Nucleated Red Blood Cells 0 /100 WBC (0-0); Total Cells Counted 200
[2024-02-12] MEDS: ASPIRIN 325 MG TAB PO SCH (09:38)
[2024-02-12] MEDS: LOSARTAN 25 MG TAB PO SCH ×2 (09:39→11:41)
--- NOTE | 2024-02-12 13:22 | P.PN ---
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 Status post robotic assisted thoracoscopic right upper lobectomy with lysis of adhesions and mediastinal lymph node dissection. Postoperative day #17 persistent air leak and the patient continues to have right-sided chest tube in place. Postsurgical pathologic findings are consistent with stage TIc N0 M0 disease. 01/30/2024, the patient is being seen for a follow-up. The patient is is currently on room air oxygen and the patient is ambulating in the hallway without any major difficulties. The patient is status post right upper lobe resection and the patient is postop day #4. She continues to have the chest tube on the right side of the chest. There is still some limited air leak and the patient's chest tube In place for today. No evidence of any pneumothorax. She is noted squamous cell carcinoma and she underwent robotic assisted thoracoscopic right upper lobe resection and mediastinal lymph node dissection. She is also known to have COPD. The white cell count is at 20 with a hemoglobin of 12.3 and a platelet count of 469. BUN 18 with a creatinine of 0.6 and a s odium level at 138. Remains on DuoNeb nebulized treatments [id number]. Dilaudid for pain control. Home medications have been resumed. She is also on Symbicort as maintenance. On today's evaluation of 01/31/2024, the patient is being seen for a follow-up. No specific complaints and the patient remains on room air oxygen. There is intermittent air leak in the right-sided chest tube which is currently to waterseal. The output is serosanguineous in the order of 10 cc over the past 24 hours. The patient remains on room air oxygen. The patient is using incentive spirometer and pulling approximately 8000. She is ambulating. No significant complaints. She is on metoprolol 25 mg twice a day and she has some mild sinus tachycardia. Otherwise, the white cell count of 18 with a hemoglobin of 13 and a platelet count of 483. The BUN is 20 mg from 0.7 and a sodium level is at 140 with a potassium level of 4.9. No other significant events overnight. We decided to keep the chest tube in for another 24 hours. On 02/01/2024, the patient is being seen for a follow-up. The patient has no specific complaints. She continues to ambulate. There is still persistent air leak in the right-sided chest tube along with a small right-sided pneumothorax. Nevertheless, the patient remains on room air oxygen. No significant chest pain. No respiratory distress. Final pathology was consistent with squamous cell carcinoma and the patient and a stage Ic N0 M0 disease and the postsurgical pathology, and staging were discussed with the patient. Otherwise, the patient is doing well. Clinically and hemodynamically stable. Right-sided chest will be kept in place based on the presence of a right-sided pneumothorax and persistent air leak. On 02/02/2024, patient is being seen for a follow-up. The patient continues to have a right apical pneumothorax on today's chest x-ray and the patient also has ongoing air leak as noted on the chest tube. She remains asymptomatic. No sign ificant shortness of breath. No chest pain. She is on room air oxygen with a pulse ox of 96%. No chest pain. The white cell count at 19.4 with a hemoglobin of 12.8 and a platelet count of 559. BUN 13 with a creatinine 0.6 and a sodium levels at 139. The patient continues to ambulate. The chest tube will be kept in place as long as there is an ongoing air leak and a persistent pneumothorax o n today's chest x-ray. She is using incentive spirometer. She is pulling approximately thousand. Cardiac rhythm is sinus. No other significant events overnight. The right chest tube is to waterseal for now. 02/03/2024, the patient is being seen for a follow-up. Some intermittent air leak is still seen on today's chest tube evaluation. The pneumothorax on the right side is significantly dropped in size and the patient has a tiny 5 to 10% right apical pneumothorax on today's chest x-ray. She remains on room air oxygen. She is ambulating. She is still requiring Percocet for pain control. Her pain is under adequate control for now. She is on DuoNeb updrafts. No new labs from today. Most recent labs from yesterday were essentially within normal limits. 02/04/2024, the patient is being seen for a follow-up. The patient had a follow-up chest x-ray today and there is no evidence of any pneumothorax. There is still some intermittent air leak from the chest tube and based on that we decided to keep the chest tube in place. She remains on room air oxygen. No new complaints otherwise for now. Afebrile. No chest pain. Right-sided chest tube still in place. White cell count is 18 with a hemoglobin of 12.6 and a platelet count of 509. BUN is 18 with a creatinine of 0.7 and the patient has a sodium level of 138. On 01/26/2024, the patient has a right apical pneumothorax in the order of 10%. Another area of pneumothorax is probably present in the right lung base. Chest tube remains in a good location and the patient has intermittent air leak. She remains on room air oxygen. BUN is 18 with a creatinine 0.7. Sodium levels at 138. WBC count of 18.7 with a hemoglobin 12.6. Denies having any new complaints. Patient seen today on 02/06/2024, patient has developed what seems to be a COVID-19 pneumonia on this admission, chest x-ray is showing worsening infil trates, clinically the patient has symptoms of pneumonia and for this I am recommending that we start the patient on remdesivir. The changes on the chest x-ray are all new. And his testing yesterday showed COVID-19 infection. This is clearly consistent with COVID-19 pneumonia and the patient will qualify for remdesivir. And she will be placed on the COVID-19 cocktail. ABG today showed a pO2 of 54 pCO2 37 pH of 7.50 basic metabolic profile is normal renal profile is normal WBC count is 23.2 hemoglobin 11.6 Patient was evaluated today on 02/07/2024, patient continues to have persistent air leak from her right-sided chest tube. Continues to have a small pneumothorax. Patient is on remdesivir for her COVID-19 infection along with the COVID-19 cocktail. Feeling about the same. Intermittent cough, no wheezing, no fever, no chills, no hemoptysis. And no chest pain. WBC count is 15.8 hemoglobin is 11.4 basic metabolic profile is normal renal profile is normal procalcitonin level is normal follow-up chest x-ray was noted, she does have right-sided pneumothorax, hence the place was back on suction Patient was seen today on 02/08/2024, she is now postoperative day#13 Robotic assisted thoracoscopic right upper lobectomy with lysis of adhesions and mediastinal lymph node dissection. Patient is doing well continues to have an air leak, continues to have right-sided pneumothorax remains on remdesivir for her acute COVID-19 pneumonia. Patient is not in any distress. WBC count is 14.8 hemoglobin is 10.8 basic metabolic profile is normal renal profile is normalPatient is on 6 L nasal cannula with O2 sats of 98% Seen today on 02/09/2024, patient is now postoperative day #14. Continues to have air leak, continues to have a small tiny apical pneumothorax. Remains on wall suction, minimal drainage is noted. Chest x-ray was reviewed patient still on the COVID-19 cocktail including remdesivir. Does not seem to be in any distress. Feeling better overall clinically WBC count is 15.4 hemoglobin is 10.8 electrolytes are normal and renal profile is normal Reevaluate today on 02/10/2024, patient is now postoperative day #15, doing fairly well except she continues to have ongoing air leak, continues to have small right-sided pneumothorax, patient is comfortable, not in distress, cardiothoracic surgery is entertaining the possibility of talc pleurodesis. At this point the patient is clinically stable, remains on remdesivir, and she remains on the COVID-19 cocktail. Seen today on 02/11/2024, she is now postoperative day #16, continues to have air leak, and right-sided pneumothorax, patient underwent talc pleurodesis today through her right sided chest tube and this was done by Dr. Betancourt, patient had her last dose of remdesivir yesterday, otherwise she is doing fairly well Patient was seen today on 02/12/2024 she is now postoperative day #17 patient had talc pleurodesis yesterday, do not see any air leak today. Patient is now off wall suction, doing well, she does have a small apical pneumothorax. Patient finished a full course of remdesivir WBC count today is 16 hemoglobin 12.1.Basic metabolic profile is normal renal profile is normal Objective - Vital Signs Vital signs: Vital Signs Temp 98.3 F 02/12/24 09:35 Pulse 69 02/12/24 12:00 Resp 17 02/12/24 12:00 BP 132/77 02/12/24 12:00 Pulse Ox 94 L 02/12/24 12:00 FiO2 Intake & Output 02/11/24 02/12/24 02/12/24 18:59 06:59 18:59 Intake Total 562 260 676 Output Total 0 0 0 Balance 562 260 676 Weight 50.9 kg Intake: IV 20 10 Invasive Line 5 20 10 Oral 562 240 666 Output: Chest Tube Drainage 0 0 0 Chest Tube Right Lateral 0 0 0 Chest Other: Voiding Method Toilet Toilet Toilet # Voids 3 1 - Exam CONSTITUTIONAL: 48-year-old female in no distress on 2 L nasal cannula O2 sat is 94% to 95% RESPIRATORY: Minimal fine crackles at the right base, diminished breath sound bilaterally right-sided chest tube remains in place CARDIOVASCULAR: S1, S2 present. Regular rate and tachycardic rhythm, sinus tachycardia Palpable peripheral pulses bilaterally. No edema present. No calf pain or tenderness noted. SCDs present. GASTROINTESTINAL: Abdomen soft, nontender, nondistended. Active bowel sounds present 4 quadrants. INTEGUMENTARY: No rashes right chest thoracic incision well approximated and covered with dry intact dressing. NEUROLOGIC: Cranial nerves II through XII intact, alert oriented x 3 MUSKULOSKELETAL: No deformities no limitation range of motion PSYCHIATRIC: normal mood affect and normal mental status examined - Labs CBC & Chem 7: 02/12/24 06:57 02/12/24 06:57 Labs: Abnormal Lab Results - Last 24 Hours (Table) 02/12/24 02/12/24 Range/Units 06:57 06:57 WBC 16.0 H (3.8-10.6) k/uL MCV 100.7 H (80.0-100.0) fL Plt Count 929 H (150-450) k/uL Neutrophils # (Manual) 9.90 H (1.3-7.7) k/uL Monocytes # (Manual) 1.92 H (0-1.0) k/uL Metamyelocytes # (Man) 0.32 H (0) k/uL Myelocytes # (Manual) 0.16 H (0) k/uL Carbon Dioxide 37 H (22-30) mmol/L Microbiology - Last 24 Hours (Table) 02/06/24 07:15 Blood Culture - Final Blood Assessment and Plan Assessment: Impression 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 Status post robotic assisted thoracoscopic right upper lobectomy with lysis of adhesions and mediastinal lymph node dissection. Postoperative day #17, status post talc pleurodesis done yesterday. With significant improvement in air leak Right apical pneumothorax, Chronic hypoxic respiratory failure secondary to heart COPD. FEV1 value 66%. Chronic and ongoing tobacco dependence. 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 Acute COVID-19 pneumonia is strongly suspected Hypertension. Hypothyroidism. Obstructive sleep apnea. Sleeve gastrectomy. Splenectomy in 2018. History of anxiety/depression. Leukocytosis, improving Status post talc pleurodesis for persistent right-sided pneumothorax done on 02/11/2024. Recommendation: Continue chest tube Continue oxygen and titrate accordingly Continue present supportive care measures Finished full course of remdesivir Continue bronchodilators Continue updrafts including DuoNeb Continue incentive spirometry Continue ambulation possible discharge planning in the next 24 to 48 hours once the chest tube has been removed Continue to follow Time with Patient: Less than 30
--- NOTE | 2024-02-12 16:48 | P.CONS ---
History of Present Illness - Reason for Consult Consult date: 02/12/24 thrombocytosis Requesting physician: Bora Betancourt - Chief Complaint Planned lobectomy - History of Present Illness Ms. Sanchez is a very pleasant 48-year-old female who follows regularly with Dr. Vasquez for leukocytosis and thrombocytosis, here for lobectomy of recently found squamous cell carcinoma. She was hospitalized in the summer for pneumonia. Subsequently found to have lung mass, underwent lobectomy on 01/27/2024, final pathology with an invasive squamous cell carcinoma, 2.7 cm, grade 2 with 0/6 lymph nodes. Course was complicated with COVID-pneumonia diagnosed on 02/06/2024. More recently she has been having increasing platelets. WBC 16 and overall stable. Hemoglobin 12.1, stable. Her platelets were 400s from admission up until around 01/2021 when platelets increased to 600 and more recently were found to be 900. Overall however patient seems to be slowly improving from her infection. Past Medical History Past Medical History: Asthma, Cancer, COPD, CVA/TIA, GERD/Reflux, Hypertension, Musculoskeletal Disorder, Neurologic Disorder, Sleep Apnea/CPAP/BIPAP, Thyroid Disorder Additional Past Medical History / Comment(s): smoking-related interstitial lung disease, doesn't use CPAP, history of seizure at the age of 16 related to med. to stop breast milk, endometriosis, chronic back pain, plantar fasciitis, hx. of Achilles tendinitis, probably antibiotic induced. She also has history of hypothyroidism, ALLERGIC rhinitis, migraines, uses oxygen 2L prn, recent iron infusion, MS , tia 2020 no residual issues, needs cholecystetomy, tinnitus, balance issues,. Dx. w/ leukemia, 10/2023 History of Any Multi-Drug Resistant Organisms: None Reported Past Surgical History: Bariatric Surgery, Cholecystectomy, Hysterectomy, Tubal Ligation, Uterine Ablation Additional Past Surgical History / Comment(s): LEEP PROCEDURE X 2, EGD, BACK INJECTIONS FOR PAIN. The patient has also undergone thoracic/thoracoscopic wedge biopsy of the right lung. 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; R and Y bypass at [facility] 2019,TRACHEOTOMY-RESOLVED Past Anesthesia/Blood Transfusion Reactions: Motion Sickness Additional Past Anesthesia/Blood Transfusion Reaction / Comm: no problem w/blood transfusion Smoking Status: Current every day smoker - Past Family History Sister(s) Family Medical History: Cancer Additional Family Medical History / Comment(s): ovarian Mother Family Medical History: Cancer Additional Family Medical History / Comment(s): breast cancer Father Family Medical History: COPD, CVA/TIA, Myocardial Infarction ([place]) Additional Family Medical History / Comment(s): HEART PROBLEMS, AT AGE 64 Medications and Allergies Home Medications Medication Instructions Recorded Confirmed Type Levothyroxine Sodium [Synthroid] 50 mcg PO QAM 01/05/14 01/26/24 History Pantoprazole Sodium [Protonix] 40 mg PO QAM 05/28/18 01/26/24 History Cyclobenzaprine [Flexeril] 10 mg PO BID PRN 10/29/20 01/26/24 History Atogepant [Qulipta] 60 mg PO QAM 08/21/21 01/26/24 History Ofatumumab [Kesimpta Pen] 20 mg SQ Q30D 02/12/22 01/26/24 History Albuterol Sulfate [Albuterol 2 puff INHALATION RT-Q6H PRN 02/19/23 01/26/24 History Sulfate Hfa] Gabapentin [Neurontin] 400 mg PO TID PRN 02/19/23 01/26/24 History Albuterol Nebulized [Ventolin 2.5 mg INHALATION RT-QID PRN 08/21/23 01/26/24 History Nebulized] Pravastatin Sodium [Pravachol] 40 mg PO DAILY 08/21/23 01/26/24 History Cetirizine HCl [Zyrtec] 10 mg PO HS 11/07/23 01/26/24 History valACYclovir HCL [Valtrex] 1,000 mg PO DAILY PRN 11/07/23 01/26/24 History Budesonide-Formot 160-4.5 Mcg 2 puff INHALATION BID 01/18/24 01/26/24 History [Symbicort 160-4.5 Mcg Inhaler] LORazepam [Ativan] 0.5 mg PO TID PRN 01/18/24 01/26/24 History Nicotine 21Mg/24Hr Patch [Habitrol] 1 each TRANSDERM DAILY 01/18/24 01/26/24 History Sulfamethoxazole/Trimethoprim 1 each PO BID 01/18/24 01/26/24 History [Bactrim DS 800-160 mg] oxyCODONE-APAP 10-325MG [Percocet 1 tab PO Q6HR PRN 01/18/24 01/26/24 History 10-325 mg] Allergies Allergy/AdvReac Type Severity Reaction Status Date / Time bee venom protein (honey bee) Allergy SWELLING , Verified 01/26/24 05:51 AND ITCHING Bleach (Sodium Hypochlorite) Allergy Rash/Hives Verified 01/26/24 05:51 nitrofurantoin Allergy Rash/Hives Verified 01/26/24 05:51 [From Macrobid] nitrofurantoin Allergy Rash/Hives Verified 01/26/24 05:51 macrocrystalline [From Macrobid] moxifloxacin [From Avelox] AdvReac Nausea & Verified 01/26/24 05:51 Vomiting NSAIDS (Non-Steroidal AdvReac Had Verified 01/26/24 05:51 Anti-Inflamma gastric sleeve surgery, causes bleeds. seasonal allergies Allergy congestion Uncoded 01/26/24 05:51 and sneezing Physical Exam Vitals: Vital Signs Temp Pulse Resp BP Pulse Ox 02/12/24 12:00 69 17 132/77 94 L 02/12/24 09:40 95 02/12/24 09:35 98.3 F 87 18 116/70 88 L 02/12/24 03:31 98.5 F 66 17 170/98 99 02/12/24 01:14 17 02/11/24 23:30 98.3 F 69 17 153/97 94 L 02/11/24 20:00 98.5 F 71 17 152/79 97 02/11/24 15:15 98.1 F 74 17 128/83 100 Intake and Output 02/11/24 02/12/24 02/12/24 22:59 06:59 14:59 Intake Total 368 10 676 Output Total 0 0 0 Balance 368 10 676 Intake: IV 10 10 10 Invasive Line 5 10 10 10 Oral 358 666 Output: Chest Tube Drainage 0 0 0 Chest Tube Right Lateral 0 0 0 Chest Other: Voiding Method Toilet Toilet Toilet # Voids 1 1 Weight 50.9 kg Results CBC & Chem 7: 02/12/24 06:57 02/12/24 06:57 Labs: Abnormal Lab Results - Last 24 Hours (Table) 02/12/24 02/12/24 Range/Units 06:57 06:57 WBC 16.0 H (3.8-10.6) k/uL MCV 100.7 H (80.0-100.0) fL Plt Count 929 H (150-450) k/uL Neutrophils # (Manual) 9.90 H (1.3-7.7) k/uL Monocytes # (Manual) 1.92 H (0-1.0) k/uL Metamyelocytes # (Man) 0.32 H (0) k/uL Myelocytes # (Manual) 0.16 H (0) k/uL Carbon Dioxide 37 H (22-30) mmol/L Microbiology - Last 24 Hours (Table) 02/06/24 07:15 Blood Culture - Final Blood Assessment and Plan Assessment: 1. Thrombocytosis 2. Stage Ia squamous cell lung cancer 3. COVID-pneumonia Plan: Ms. Rangel is a very pleasant 48-year-old female with a history of chronic leuk ocytosis and thrombocytosis, more recently found lung cancer, s/p resection on 01/27/2024, course complicated by COVID-pneumonia and slowly rising platelet count from 400s up to 900. -She has chronic leukocytosis and thrombocytosis likely due to prior splenectomy -Has had extensive workup in the past for her cytosis that has been unremarkable -Likely her increasing platelets are postop changes as well as reactive and should improve to her baseline as she improves -Would monitor for thrombosis and monitor blood counts -As for her stage Ia lung cancer, no further adjuvant therapy required -She can continue to follow with Dr. Alford for surveillance
--- NOTE | 2024-02-13 02:15 | PN ---
PROGRESS NOTE DATE OF SERVICE: 02/12/2024 CHIEF COMPLAINT: Squamous cell carcinoma of the right upper lobe, status post right upper lobectomy. HISTORY OF PRESENT ILLNESS: This lady is doing well. Apparently, the leak may be sealed. Her water seal is not bubbling. She feels fine otherwise. PHYSICAL EXAMINATION: CHEST: Clear. CARDIAC: Normal. VITAL SIGNS: She is afebrile. IMPRESSION: 1. Pulmonary leak following right upper lobectomy for squamous cell carcinoma. 2. COVID. PLAN: If her lungs stays expanded and the tube is removed, she can go home. MMODL / IJN: [id number] /
--- NOTE | 2024-02-13 07:19 | XR ---
EXAMINATION TYPE: XR chest 1V portable DATE OF EXAM: 02/13/2024 Comparison: 02/12/2024 Clinical History: 48-year-old female s/p right upper lobectomy Findings: Right apical chest tube in place. Postsurgical change right hilum and right hemithorax redemonstrated . Small right apical pneumothorax measuring 2.5 cm versus 2.1 cm, previously. Diffuse interstitial de nsities persist having shown slight improvement. Patchy bibasilar opacities and trace right pleural e ffusion remains. Heart upper limits of normal in size. Atherosclerotic arch calcifications. Impression: 1. Right-sided chest tube in place with postsurgical changes right hemithorax and ongoing small right apical pneumothorax currently 2.5 cm versus 2.1 cm, previously. 2. Bilateral mild diffuse interstitial density persists with slight improvement. 3. Similar patchy bibasilar densities and trace right pleural effusion. [facility], , 02/13/2024 7:17 AM
[2024-02-13 08:43] LABS: African American GFR (CKD) >90 (>60 ml/min/1.73 sqM); Anion Gap 5 mmol/L; Blood Urea Nitrogen 12 mg/dL (7-17); Calcium 8.9 mg/dL (8.4-10.2); Carbon Dioxide 29 mmol/L (22-30); Chloride 104 mmol/L (98-107); Glucose 144 mg/dL (74-99); Non-African American GFR(CKD) >90 (>60 ml/min/1.73 sqM); Sodium 138 mmol/L (137-145)
[2024-02-13 08:46] LABS: Magnesium 1.7 mg/dL (1.6-2.3); Potassium 4.3 mmol/L (3.5-5.1)
--- NOTE | 2024-02-13 08:53 | P.PN ---
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 Previous medical history of longstanding COPD, asthma, obstructive sleep apnea, respiratory failure status post tracheostomy placement, chronic ongoing tobacco dependence, renal failure with dialysis with resolution, left bundle branch block followed by Dr. Katz, hypothyroidism, chronic back pain on chronic narcotics, migraine headaches, TIA in 2020 with no residual deficits, sleeve gastrectomy, splenectomy, anxiety and depression. POD #18 Robotic assisted thoracoscopic right upper lobectomy with lysis of adhesions and mediastinal lymph node dissection. Persistent airleak greater than 5 days, somewhat expected due to significant lung disease and chronic tobacco dependence Status post day #2 right talc pleurodesis completed by Dr. Bora Betancourt. Covid positive, unexpected The patient was seen and examined in follow-up today February 13, 2024 at her bedside on the third floor cardiac stepdown unit. She is currently sitting up in bed, is awake, alert, oriented x 3 and is in no acute apparent distress. She denies any complaints of pain at this time, states that she had some episodes of shortness of breath throughout the night, is currently on 5 L nasal cannula with oxygen saturations 92%. She is achieving 1000 mL on her incentive spirometry with encouragement. Remote telemetry is showing normal sinus rhythm heart rate 84 bpm. Right pleural chest tube remains in place to waterseal. No air leak is present. Draining scant serosanguineous drainage. Laboratory and chest x-ray results reviewed. Objective - Vital Signs Vital signs: Vital Signs Temp 98.6 F 02/13/24 04:00 Pulse 84 02/13/24 04:00 Resp 20 02/13/24 04:00 BP 148/95 02/13/24 04:00 Pulse Ox 91 L 02/13/24 08:17 FiO2 Intake & Output 02/12/24 02/13/24 02/13/24 18:59 06:59 18:59 Intake Total 1046 460 Output Total 0 0 Balance 1046 460 Weight 48.9 kg Intake: IV 20 20 Invasive Line 5 20 20 Oral 1026 440 Output: Chest Tube Drainage 0 0 Chest Tube Right Lateral 0 0 Chest Drainage 0 Right Upper Chest 0 Other: Voiding Method Toilet Toilet # Voids 2 2 - Exam CONSTITUTIONAL: Appears comfortable, cooperative, no acute distress RESPIRATORY: Lungs sounds diminished bilaterally. Respirations symmetrical, nonlabored. Currently on room air with oxygen saturation 92%. Able to achieve 1000 mL on her incentive spirometry. Strong cough. CARDIOVASCULAR: S1, S2 present. Regular rate and rhythm, normal sinus rhythm on telemetry, heart rate 84 bpm with left bundle branch block. Palpable peripheral pulses bilaterally. No edema present. No calf pain or tenderness noted. SCDs present. GASTROINTESTINAL: Abdomen soft, nontender, nondistended. Active bowel sounds present 4 quadrants. Tolerating diet. GENITOURINARY: Continues to void. INTEGUMENTARY: Skin is warm and dry with evidence of good perfusion. Right chest thoracic incision well approximated and covered with dry intact dressing. NEUROLOGIC: Cranial nerves II through XII intact MUSKULOSKELETAL: Able to move all extremities, strength equal bilaterally, gait normal. PSYCHIATRIC: Alert and oriented to person place and time, appropriate affect, intact judgment and insight INVASIVE LINES AND TUBES: Right pleural chest tube present and is to waterseal, no airleak is present. Right pleural chest tube with scant thin serosanguineous drainage in the last 24 hours. 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 Betancourt Leukocytosis, present since after surgery Hypotension, resolved Sinus tachycardia present since after surgery COVID PCR positive Hypoxia, likely from above History of longstanding COPD Asthma Obstructive sleep apnea Respiratory failure with previous tracheostomy placement Chronic ongoing tobacco dependence Renal failure with dialysis with resolution Left bundle branch block followed by Dr. Katz Hypothyroidism Chronic back pain on chronic narcotics TIA in 2020 with no residual deficits Anxiety and depression. Plan: We will remove her right pleural chest tube today. Encourage incentive spirometry use 10 times every hour while awake. Continue beta-katheryn. Continue losartan 25 mg p.o. daily. Increase activity, ambulate as tolerated. Will monitor daily labs and chest x-rays Bronchodilators per pulmonology. Pain control per current medication regimen. Once the chest tube is removed we will discontinue her Dilaudid. More recommendations to follow based on patient's clinical course. Time with Patient: Greater than 30
[2024-02-13 09:00] LABS: MCH 31.9 pg (25.0-35.0); MCHC 31.7 g/dL (31.0-37.0); MCV 100.6 fL (80.0-100.0); Macrocytosis Slight; Mean Platelet Volume 8.3; RBC 4.08 m/uL (3.80-5.40); RDW 14.1 % (11.5-15.5); WBC 21.4 k/uL (3.8-10.6)
[2024-02-13 09:03] LABS: Platelet Count 1040 k/uL (150-450)
--- NOTE | 2024-02-13 12:19 | P.PN ---
Subjective Progress Note Date: 02/13/24 Principal diagnosis: Status post right upper lobectomy. 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 She was brought in today electively for a robotic assisted thoracoscopic right upper lobectomy with lysis of adhesions and mediastinal lymph node dissection. She is seen in consultation in the recovery room. She is currently awake. Maintaining good O2 saturations in the 90s on 2 L/min per nasal cannula. She has normal saline at 75 mL/h. Right sided chest tube remains in place to Pleur-evac. Chest x-ray reveals evidence of a postoperative changes. Glucose 103. Progress note dated January 27, 2024. 48-year-old female who is postoperative day #1, status post robotically assisted right upper lobectomy, for lung cancer. We saw the patient in the postanesthesia care unit yesterday. She has a history of squamous cell carcinoma involving the right upper lobe. It measured 2.7 cm in size. She had a elective robotic bronchoscopy, and subsequently, ended up with a right upper lobectomy, done robotically as well. She also had lysis of adhesions, and the mediastinal lymph node dissection. Currently, she is seen in room 358. She is on room air. She is not receiving any IV fluids. The chest tube is off suction. There is no leak noted. White count 22.9, hemoglobin 13.2, hematocrit 41.4, platelet count 470,000. Sodium 136, potassium 4.8, chlorides 109, CO2 24, BUN and creatinine are normal. Chest x-ray shows some postoperative changes, no pneumothorax present. Progress note dated January 28, 2024. 48-year-old female seen today in room 358. She is status post right upper lobectomy, postop day #2. The patient is on room air. No IV fluids. She does have a leak from the right sided chest tube. White count 21.6, hemoglobin 12.1, hematocrit 37.1, and platelet count 435,000. Sodium 138, potassium 4.2, chlorides 108, CO2 26, BUN 12, creatinine 0.53. Chest x-ray shows a right sided chest tube, unchanged in position, and a stable right apical pneumothorax. Progress note dated January 29, 2024. 48-year-old female seen in room 358. The patient is on room air. No fluids. The patient still has a right chest tube in. There was a leak. The patient is postop day #3, status post robotically assisted right upper lobectomy and mediastinal lymph node dissection, with lysis of adhesions. The patient does not have any complaints. White count 22, hemoglobin 13.9, hematocrit 42, platelet count 483,000. Sodium 138, potassium 5.1, chlorides 108, CO2 24, BUN 13, creatinine 0.5. Chest x-ray shows a persistent right apical pneumothorax. Chest tube remains in place. 01/30/2024, the patient is being seen for a follow-up. The patient is is currently on room air oxygen and the patient is ambulating in the hallway without any major difficulties. The patient is status post right upper lobe resection and the patient is postop day #4. She continues to have the chest tu be on the right side of the chest. There is still some limited air leak and the patient's chest tube In place for today. No evidence of any pneumothorax. She is noted squamous cell carcinoma and she underwent robotic assisted thoracoscopic right upper lobe resection and mediastinal lymph node dissection. She is also known to have COPD. The white cell count is at 20 with a hemoglobin of 12.3 and a platelet count of 469. BUN 18 with a creatinine of 0.6 and a sodium level at 138. Remains on DuoNeb nebulized treatments [id number]. Dilaudid for pain control. Home medications have been resumed. She is also on Symbicort as maintenance. On today's evaluation of 01/31/2024, the patient is being seen for a follow-up. No specific complaints and the patient remains on room air oxygen. There is intermittent air leak in the right-sided chest tube which is currently to waterseal. The output is serosanguineous in the order of 10 cc over the past 24 hours. The patient remains on room air oxygen. The patient is using incentive spirometer and pulling approximately 8000. She is ambulating. No significant complaints. She is on metoprolol 25 mg twice a day and she has some mild sinus tachycardia. Otherwise, the white cell count of 18 with a hemoglobin of 13 and a platelet count of 483. The BUN is 20 mg from 0.7 and a sodium level is at 140 with a potassium level of 4.9. No other significant events overnight. We decided to keep the chest tube in for another 24 hours. On 02/01/2024, the patient is being seen for a follow-up. The patient has no specific complaints. She continues to ambulate. There is still persistent air leak in the right-sided chest tube along with a small right-sided pneumothorax. Nevertheless, the patient remains on room air oxygen. No significant chest pain. No respiratory distress. Final pathology was consistent with squamous cell carcinoma and the patient and a stage Ic N0 M0 disease and the postsurgical pathology, and staging were discussed with the patient. Otherwise, the patient is doing well. Clinically and hemodynamically stable. Right-sided chest will be kept in place based on the presence of a right-sided pneumothorax and persistent air leak. On 02/02/2024, patient is being seen for a follow-up. The patient continues to have a right apical pneumothorax on today's chest x-ray and the patient also has ongoing air leak as noted on the chest tube. She remains asymptomatic. No significant shortness of breath. No chest pain. She is on room air oxygen with a pulse ox of 96%. No chest pain. The white cell count at 19.4 with a hemoglobin of 12.8 and a platelet count of 559. BUN 13 with a creatinine 0.6 and a sodium levels at 139. The patient continues to ambulate. The chest tube will be kept in place as long as there is an ongoing air leak and a persistent pneumothorax on today's chest x-ray. She is using incentive spirometer. She is pulling approximately thousand. Cardiac rhythm is sinus. No other significant events overnight. The right chest tube is to waterseal for now. 02/03/2024, the patient is being seen for a follow-up. Some intermittent air leak is still seen on today's chest tube evaluation. The pneumothorax on the right side is significantly dropped in size and the patient has a tiny 5 to 10% right apical pneumothorax on today's chest x-ray. She remains on room air oxygen. She is ambulating. She is still requiring Percocet for pain control. Her pain is under adequate control for now. She is on DuoNeb [employer]. No new labs from today. Most recent labs from yesterday were essentially within normal limits. 02/04/2024, the patient is being seen for a follow-up. The patient had a follow-up chest x-ray today and there is no evidence of any pneumothorax. There is still some intermittent air leak from the chest tube and based on that we decided to keep the chest tube in place. She remains on room air oxygen. No new complaints otherwise for now. Afebrile. No chest pain. Right-sided chest tube still in place. White cell count is 18 with a hemoglobin of 12.6 and a platelet count of 509. BUN is 18 with a creatinine of 0.7 and the patient has a sodium level of 138. On 01/26/2024, the patient has a right apical pneumothorax in the order of 10%. Another area of pneumothorax is probably present in the right lung base. Chest tube remains in a good location and the patient has intermittent air leak. She remains on room air oxygen. BUN is 18 with a creatinine 0.7. Sodium levels at 138. WBC count of 18.7 with a hemoglobin 12.6. Denies having any new complaints. Patient seen today on 02/06/2024, patient has developed what seems to be a COVID-19 pneumonia on this admission, chest x-ray is showing worsening infiltrates, clinically the patient has symptoms of pneumonia and for this I am recommending that we start the patient on remdesivir. The changes on the chest x-ray are all new. And his testing yesterday showed COVID-19 infection. This is clearly consistent with COVID-19 pneumonia and the patient will qualify for remdesivir. And she will be placed on the COVID-19 cocktail. ABG today showed a pO2 of 54 pCO2 37 pH of 7.50 basic metabolic profile is normal renal profile is normal WBC count is 23.2 hemoglobin 11.6 Patient was evaluated today on 02/07/2024, patient continues to have persistent air leak from her right-sided chest tube. Continues to have a small pneumothorax. Patient is on remdesivir for her COVID-19 infection along with the COVID-19 cocktail. Feeling about the same. Intermittent cough, no wheezing, no fever, no chills, no hemoptysis. And no chest pain. WBC count is 15.8 hemoglobin is 11.4 basic metabolic profile is normal renal profile is normal procalcitonin level is normal follow-up chest x-ray was noted, she does have right-sided pneumothorax, hence the place was back on suction Patient was seen today on 02/08/2024, she is now postoperative day#13 Robotic assisted thoracoscopic right upper lobectomy with lysis of adhesions and mediastinal lymph node dissection. Patient is doing well continues to have an air leak, continues to have right-sided pneumothorax remains on remdesivir for her acute COVID-19 pneumonia. Patient is not in any distress. WBC count is 14.8 hemoglobin is 10.8 basic metabolic profile is normal renal profile is normalPatient is on 6 L nasal cannula with O2 sats of 98% Seen today on 02/09/2024, patient is now postoperative day #14. Continues to have air leak, continues to have a small tiny apical pneumothorax. Remains on wall suction, minimal drainage is noted. Chest x-ray was reviewed patient still on the COVID-19 cocktail including remdesivir. Does not seem to be in any distress. Feeling better overall clinically WBC count is 15.4 hemoglobin is 10.8 electrolytes are normal and renal profile is normal Reevaluate today on 02/10/2024, patient is now postoperative day #15, doing fairly well except she continues to have ongoing air leak, continues to have small right-sided pneumothorax, patient is comfortable, not in distress, cardiothoracic surgery is entertaining the possibility of talc pleurodesis. At this point the patient is clinically stable, remains on remdesivir, and she remains on the COVID-19 cocktail. Seen today on 02/11/2024, she is now postoperative day #16, continues to have air leak, and right-sided pneumothorax, patient underwent talc pleurodesis today through her right sided chest tube and this was done by Dr. Betancourt, patient had her last dose of remdesivir yesterday, otherwise she is doing fairly well Patient was seen today on 02/12/2024 she is now postoperative day #17 patient had talc pleurodesis yesterday, do not see any air leak today. Patient is now off wall suction, doing well, she does have a small apical pneumothorax. Patient finished a full course of remdesivir WBC count today is 16 hemoglobin 12.1.Basic metabolic profile is normal renal profile is normal Progress note dated February 13, 2024. 48-year-old female who is now been in the hospital for 18 days. The patient is postoperative day #18, and had talc pleurodesis done on February 10. The patient has a persistent right-sided pneumothorax, and hopefully, the chest tube will be removed today. The patient is resting comfortably in bed. Minimal shortness of breath. Current labs include a white count 21.4, hemoglobin 13, hematocrit 41, and platelet count 1,040,000. 138, potassium 4.3, chlorides 104, CO2 29, BUN 12, creatinine 0.6. Glucose is 144. Calcium is 8.9. Chest x-ray shows right sided chest tube in place, with a right apical pneumothorax. Objective - Vital Signs Vital signs: Vital Signs Temp 98.3 F 02/13/24 11:21 Pulse 70 02/13/24 11:21 Resp 18 02/13/24 11:21 BP 103/65 02/13/24 11:21 Pulse Ox 93 L 02/13/24 11:21 FiO2 Intake & Output 02/12/24 02/13/24 02/13/24 18:59 06:59 18:59 Intake Total 1046 460 350 Output Total 0 0 0 Balance 1046 460 350 Weight 48.9 kg Intake: IV 20 20 Invasive Line 5 20 20 Oral 1026 440 350 Output: Chest Tube Drainage 0 0 0 Chest Tube Right Lateral 0 0 0 Chest Drainage 0 0 Right Upper Chest 0 0 Other: Voiding Method Toilet Toilet Toilet # Voids 2 2 - Exam No acute distress, oriented 3. Currently on 8 L high flow nasal O2. HEENT examination is grossly unremarkable. Mucous membranes are moist. No oral lesions. Neck supple. Full range of motion. No adenopathy thyromegaly or neck vein distention. Cardiovascular examination reveals regular rhythm rate. S1-S2 normal. No S3 or S4. No discernible murmur noted. Lungs reveal minimal rhonchi. No wheezes or crackles. Breath sounds equal. Right sided chest tube noted. Abdomen soft bowel sounds are heard. No masses or tenderness. Extremities are intact. No cyanosis clubbing or edema. Skin is without rash or lesion. Neurologic examination is brief but nonfocal. - Labs CBC & Chem 7: 02/13/24 08:17 02/13/24 08:17 Labs: Abnormal Lab Results - Last 24 Hours (Table) 02/13/24 02/13/24 Range/Units 08:17 08:17 WBC 21.4 H (3.8-10.6) k/uL MCV 100.6 H (80.0-100.0) fL Plt Count 1040 H* (150-450) k/uL Glucose 144 H (74-99) mg/dL Assessment and Plan Assessment: 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 Status post robotic assisted thoracoscopic right upper lobectomy with lysis of adhesions and mediastinal lymph node dissection. Postoperative day # 18. Chronic hypoxic respiratory failure secondary to heart COPD. FEV1 value 66%. Talc pleurodesis, February 11, 2024, for persistent right sided pneumothorax. Chronic and ongoing tobacco dependence. Respiratory bronchiolitis associated ILD (smoking-related interstitial lung disease, SRIF). Hypertension. Hypothyroidism. Obstructive sleep apnea. Sleeve gastrectomy. Splenectomy in 2018. History of anxiety/depression. Plan: Plan dated January 27, 2024. The patient is seen today in room 358. She is postop day #1 status post robotically assisted right upper lobectomy, lysis of adhesions, and mediastinal lymph node dissection. The patient continues on room air. No IV fluids. Labs, x-rays, medications are reviewed. The chest tube is off of suction. There is no leak. Hopeful discharge in the near future. We will continue to follow make recommendations along the way. Plan dated January 28, 2024. The patient had an uneventful night. She is seen in room 358. She is postoperative day #2. The patient has a right sided chest tube in place. There is a leak. She also has a stable right apical pneumothorax. Labs, x-rays, and all medications are reviewed. We will continue to follow. Prognosis is guarded. Plan dated January 29, 2024. The patient is seen in room 358. She remains on room air. No IV fluids. Right chest tube remains in place. The patient does have a leak. Chest x-ray shows a persistent unchanged right apical pneumothorax. Labs, x-rays, and all medicat ions are reviewed. Prognosis is guarded. Will continue to follow with patient, and make recommendations where appropriate. Plan dated February 13, 2024. The patient had talc pleurodesis on February 10. Her chest x-ray today's procedure shows a persistent right-sided pneumothorax. Despite that, according to cardiothoracic surgery, her right sided chest tube may be removed today. The patient is on 8 L high flow nasal cannula. No IV fluids. She is resting comfortably in bed. Labs, x-rays, medications are reviewed. We will continue to follow make recommendations along the way. Prognosis is certainly guarded. Time with Patient: Less than 30
--- NOTE | 2024-02-13 13:22 | P.PN ---
Subjective Progress Note Date: 02/13/24 Principal diagnosis: Sq cell lung cancer In f/u today pt denies fevers, cough is stable, no hemoptysis, chest pain, tolerating oral intake without N,V. The chest tube is uncomfortable, no new pain reported. Objective - Vital Signs Vital signs: Vital Signs Temp 98.4 F 02/13/24 09:48 Pulse 102 H 02/13/24 08:00 Resp 20 02/13/24 08:10 BP 121/74 02/13/24 08:00 Pulse Ox 91 L 02/13/24 08:17 FiO2 Intake & Output 02/12/24 02/13/24 02/13/24 18:59 06:59 18:59 Intake Total 1046 460 350 Output Total 0 0 0 Balance 1046 460 350 Weight 48.9 kg Intake: IV 20 20 Invasive Line 5 20 20 Oral 1026 440 350 Output: Chest Tube Drainage 0 0 0 Chest Tube Right Lateral 0 0 0 Chest Drainage 0 0 Right Upper Chest 0 0 Other: Voiding Method Toilet Toilet Toilet # Voids 2 2 - Constitutional General appearance: Present: average body habitus, cooperative, no acute distr ess - EENT Eyes: Present: anicteric sclerae, EOMI ENT: Present: hearing grossly normal - Neurologic Neurologic: Present: CNII-XII intact - Psychiatric Psychiatric: Present: A&O x's 3, appropriate affect, intact judgment & insight - Labs CBC & Chem 7: 02/13/24 08:17 02/13/24 08:17 Labs: Abnormal Lab Results - Last 24 Hours (Table) 02/13/24 02/13/24 Range/Units 08:17 08:17 WBC 21.4 H (3.8-10.6) k/uL MCV 100.6 H (80.0-100.0) fL Plt Count 1040 H* (150-450) k/uL Glucose 144 H (74-99) mg/dL Assessment and Plan (1) Thrombocytosis after splenectomy Current Visit: Yes Status: Chronic Priority: Medium Code(s): D75.838 - OTHER THROMBOCYTOSIS; Z90.81 - ACQUIRED ABSENCE OF SPLEEN SNOMED Code(s): 021830648 (2) Squamous cell carcinoma of lung, stage I Current Visit: Yes Status: Acute Priority: High Code(s): C34.90 - MALIGNANT NEOPLASM OF UNSP PART OF UNSP BRONCHUS OR LUNG SNOMED Code(s): 341764669 (3) Leukocytosis Current Visit: Yes Status: Acute Priority: Medium Code(s): D72.829 - ELEVATED WHITE BLOOD CELL COUNT, UNSPECIFIED SNOMED Code(s): 806125962 Plan: Thrombocytosis -Palmer to be 2/2 splenectomy. Prior work up with Hematology was neg for MPN. Count exacerbated with acute illness. -plt count worse today, 1040. Pt is on a daily asa. No other acute intervention at this time -Anticipate that as pt condition stabilizes her plt will go back to baseline (500,000 range) Stage Ia squamous cell lung cancer -Pt did well post op, getting chest tube removed today. -Defer mgmt of the same to CTS COVID-pneumonia -Defer mgmt and treatment of the same to Attending/Pulm F/U Dr. Vasquez is planned for above.
[2024-02-13] MEDS: MAGNESIUM SULFATE-D5W PMX 1 GM in DEXTROSE/WATER 1 100ML.BAG IVPB ONE (13:55)
--- NOTE | 2024-02-13 17:42 | CT ---
EXAMINATION TYPE: CT Angio chest pulmonary embolism protocol. DATE OF EXAM: 02/13/2024 5:16 PM COMPARISON: 12/08/2023. CLINICAL INDICATION: Female, 48 years old with history of Thrombocytosis, increased oxygen demand; Th rombocytosis, increased oxygen demand TECHNIQUE/CONTRAST: CTA scan of the thorax is performed with IV Contrast, patient injected with 80 ml mL of Isovue 370,. CT DLP: 232.7 mGycm, Automated exposure control for dose reduction was used. FINDINGS: Lungs/Pleura: Scattered airspace opacities worse in the lung bases left greater than right. There is right apical pneumothorax with layering fluid. Previous right-sided chest tube is no longer visualize d. No evidence for left pneumothorax. No sizable pleural effusions identified. Airway: Large airways are patent. Heart: Heart is within normal limits for size. Vasculature: No evidence of aortic aneurysm. Mediastinum: Soft tissue fullness around the right knee /Pulmonary hilum. Musculoskeletal: No acute osseous abnormalities Soft Tissues/lymph nodes: Subcutaneous gas in the soft tissues along the right chest wall likely seco ndary to prior chest tube intervention. Lower neck: No significant findings. Upper Abdomen: No significant findings. IMPRESSION: 1. No evidence for pulmonary embolus. 2. Right upper lobe pneumothorax possibly secondary to previous cavitary lesion with layering debris . Trapped lung is not excluded. Findings similar to prior plain film given differences in technique. 3. Scattered airspace opacities worse in the lung bases left greater than right concerning for pneum onia. 4. Soft tissue fullness around the right pulmonary hilum appears worsened from 11/25/2023 possibly sec ondary to infection. Continued stability recommended. [facility], , 02/13/2024 5:40 PM
[2024-02-14 04:37] VITALS: RESP 20
[2024-02-14 07:48] LABS: African American GFR (CKD) >90 (>60 ml/min/1.73 sqM); Anion Gap 4 mmol/L; Blood Urea Nitrogen 12 mg/dL (7-17); Calcium 8.8 mg/dL (8.4-10.2); Carbon Dioxide 29 mmol/L (22-30); Chloride 105 mmol/L (98-107); Glucose 70 mg/dL (74-99); Non-African American GFR(CKD) >90 (>60 ml/min/1.73 sqM); Potassium 4.5 mmol/L (3.5-5.1); Sodium 138 mmol/L (137-145)
[2024-02-14 07:50] LABS: HCT 35.8 % (34.0-46.0); HGB 11.3 gm/dL (11.4-16.0); Hypochromasia Slight; MCH 31.8 pg (25.0-35.0); MCHC 31.6 g/dL (31.0-37.0); MCV 100.7 fL (80.0-100.0); Macrocytosis Slight; Mean Platelet Volume 7.9; Platelet Count 985 k/uL (150-450); RBC 3.55 m/uL (3.80-5.40); RDW 13.8 % (11.5-15.5); WBC 28.8 k/uL (3.8-10.6)
[2024-02-14 08:28] LABS: Eosinophils # (M) 0.29 k/uL (0-0.7); Lymphocytes # (M) 6.05 k/uL (1.0-4.8); Monocytes # (M) 0.86 k/uL (0-1.0); Neutrophils % (M) 75 %; Nucleated Red Blood Cells 0 /100 WBC (0-0); Total Cells Counted 100
[2024-02-14 08:31] LABS: Howell-Jolly Bodies Present
[2024-02-14 08:32] LABS: Poikilocytosis (M) Present
--- NOTE | 2024-02-14 08:46 | XR ---
EXAMINATION TYPE: XR chest 1V portable DATE OF EXAM: 02/14/2024 Comparison: 02/13/2024 Clinical History: 48-year-old female s/p right upper lobectomy Findings: The right-sided chest tube. The patient's right apical pneumothorax is slightly larger now 3.8 cm hi randall 2.5 cm, previously. Similar postsurgical change right hilum with a right hemithoracic volume loss . No cardia mediastinal shift. Interstitial opacities persist along with patchy left basilar opacity. Trace right pleural effusion persists. Impression: 1. Removal of right-sided chest tube. Right apical pneumothorax increased in size now 3.8 cm versus 2 .5 cm, previously. 2. Postsurgical volume loss right hemithorax redemonstrated. Trace right pleural effusion persists. 3. Interstitial densities persist along with patchy retrocardiac and left basilar opacity. [facility], , 02/14/2024 8:44 AM
--- NOTE | 2024-02-14 08:59 | P.PN ---
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 Previous medical history of longstanding COPD, asthma, obstructive sleep apnea, respiratory failure status post tracheostomy placement, chronic ongoing tobacco dependence, renal failure with dialysis with resolution, left bundle branch block followed by Dr. Katz, hypothyroidism, chronic back pain on chronic narcotics, migraine headaches, TIA in 2020 with no residual deficits, sleeve gastrectomy, splenectomy, thrombocytosis followed outpatient by Dr. Vasquez, anxiety and depression. POD #19 Robotic assisted thoracoscopic right upper lobectomy with lysis of adhesions and mediastinal lymph node dissection. Persistent airleak greater than 5 days, somewhat expected due to significant lung disease and chronic tobacco dependence Status post day #3 right talc pleurodesis Covid positive, unexpected The patient was seen and examined this morning sitting up in bed in no acute distress. Remains in sinus rhythm, hemodynamically stable, remains on 2 L nasal cannula with oxygen saturation in the low to mid 90s. She has been ambulatory without difficulty. She did have a CT of the chest yesterday for PE protocol, there was no evidence of pulmonary embolism. Continues to have thrombocytosis which she does have a history of, was seen by oncology with recommendations to continue following on an outpatient basis. States she feels ready to go home today. Chest x-ray, labs reviewed with Dr. Betancourt. No other new concerns. Objective - Vital Signs Vital signs: Vital Signs Temp 98.3 F 02/14/24 04:00 Pulse 79 02/14/24 04:00 Resp 20 02/14/24 04:00 BP 146/83 02/14/24 04:00 Pulse Ox 97 02/14/24 08:33 FiO2 Intake & Output 02/13/24 02/14/24 02/14/24 18:59 06:59 18:59 Intake Total 1290 20 240 Output Total 0 Balance 1290 20 240 Weight 48.8 kg Intake: IV 20 Invasive Line 6 20 Oral 1290 240 Output: Chest Tube Drainage 0 Chest Tube Right Lateral 0 Chest Drainage 0 Right Upper Chest 0 Other: Voiding Method Toilet Toilet # Voids 3 4 - Exam CONSTITUTIONAL: Cooperative sitting up in bed, does not appear to be in significant distress RESPIRATORY: Lungs sounds diminished in the bases bilaterally. Respirations even, nonlabored. Currently on 2 L nasal cannula with oxygen saturation 93%. Able to achieve 750 mL on incentive spirometry. Strong productive cough. CARDIOVASCULAR: S1, S2 present. Regular rate and rhythm, sinus rhythm on telemetry. Palpable peripheral pulses bilaterally. No edema present. No calf pain or tenderness noted GASTROINTESTINAL: Abdomen soft, nontender, nondistended. Active bowel sounds present 4 quadrants. Tolerating diet. Positive bowel movement 02/07 GENITOURINARY: Continues to void INTEGUMENTARY: Skin is warm and dry. Thoracic incision well approximated and covered with dry intact dressing. NEUROLOGIC: Cranial nerves II through XII intact MUSKULOSKELETAL: Able to move all extremities, strength equal bilaterally, gait normal PSYCHIATRIC: Alert and oriented to person place and time, appropriate affect, intact judgment and insight - Allied health notes Allied health notes reviewed: nursing - Labs CBC & Chem 7: 02/14/24 06:55 02/14/24 06:55 Labs: Abnormal Lab Results - Last 24 Hours (Table) 02/13/24 02/13/24 02/14/24 Range/Units 08:17 08:17 06:55 WBC 21.4 H 28.8 H (3.8-10.6) k/uL RBC 3.55 L (3.80-5.40) m/uL Hgb 11.3 L (11.4-16.0) gm/dL MCV 100.6 H 100.7 H (80.0-100.0) fL Plt Count 1040 H* 985 H (150-450) k/uL Neutrophils # (Manual) 21.60 H (1.3-7.7) k/uL Lymphocytes # (Manual) 6.05 H (1.0-4.8) k/uL Creatinine (0.52-1.04) mg/dL Glucose 144 H (74-99) mg/dL 02/14/24 Range/Units 06:55 WBC (3.8-10.6) k/uL RBC (3.80-5.40) m/uL Hgb (11.4-16.0) gm/dL MCV (80.0-100.0) fL Plt Count (150-450) k/uL Neutrophils # (Manual) (1.3-7.7) k/uL Lymphocytes # (Manual) (1.0-4.8) k/uL Creatinine 0.50 L (0.52-1.04) mg/dL Glucose 70 L (74-99) mg/dL - Imaging and Cardiology Chest x-ray: report reviewed, image reviewed Assessment and Plan Assessment: 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, status post robotic assisted thoracoscopic right upper lobectomy, final pathology consistent with 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 Katz Hypothyroidism Splenectomy, chronic thrombocytosis Chronic back pain on chronic narcotics TIA in 2020 with no residual deficits Anxiety and depression. Plan: Wean O2 as tolerated, patient does use oxygen at home Will initiate Augmentin due to continued leukocytosis Continue beta-blockers, Cozaar Encourage incentive spirometry use 10 times every hour while awake Increase activity, ambulate as tolerated Pain control per current medication regimen Will discharge to home today
[2024-02-14 09:40] VITALS: BMI 20.3
[2024-02-14] MEDS: AMOXIC-POT CLAV 875-125MG 1 EACH TAB PO SCH (09:46)
[2024-02-14 11:13] VITALS: TEMP 97.9
--- NOTE | 2024-02-14 11:24 | P.PN ---
Subjective Progress Note Date: 02/14/24 Principal diagnosis: Status post right upper lobectomy. 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 She was brought in today electively for a robotic assisted thoracoscopic right upper lobectomy with lysis of adhesions and mediastinal lymph node dissection. She is seen in consultation in the recovery room. She is currently awake. Maintaining good O2 saturations in the 90s on 2 L/min per nasal cannula. She has normal saline at 75 mL/h. Right sided chest tube remains in place to Pleur-evac. Chest x-ray reveals evidence of a postoperative changes. Glucose 103. Progress note dated January 27, 2024. 48-year-old female who is postoperative day #1, status post robotically assisted right upper lobectomy, for lung cancer. We saw the patient in the postanesthesia care unit yesterday. She has a history of squamous cell carcinoma involving the right upper lobe. It measured 2.7 cm in size. She had a elective robotic bronchoscopy, and subsequently, ended up with a right upper lobectomy, done robotically as well. She also had lysis of adhesions, and the mediastinal lymph node dissection. Currently, she is seen in room 358. She is on room air. She is not receiving any IV fluids. The chest tube is off suction. There is no leak noted. White count 22.9, hemoglobin 13.2, hematocrit 41.4, platelet count 470,000. Sodium 136, potassium 4.8, chlorides 109, CO2 24, BUN and creatinine are normal. Chest x-ray shows some postoperative changes, no pneumothorax present. Progress note dated January 28, 2024. 48-year-old female seen today in room 358. She is status post right upper lobectomy, postop day #2. The patient is on room air. No IV fluids. She does have a leak from the right sided chest tube. White count 21.6, hemoglobin 12.1, hematocrit 37.1, and platelet count 435,000. Sodium 138, potassium 4.2, chlorides 108, CO2 26, BUN 12, creatinine 0.53. Chest x-ray shows a right sided chest tube, unchanged in position, and a stable right apical pneumothorax. Progress note dated January 29, 2024. 48-year-old female seen in room 358. The patient is on room air. No fluids. The patient still has a right chest tube in. There was a leak. The patient is postop day #3, status post robotically assisted right upper lobectomy and mediastinal lymph node dissection, with lysis of adhesions. The patient does not have any complaints. White count 22, hemoglobin 13.9, hematocrit 42, platelet count 483,000. Sodium 138, potassium 5.1, chlorides 108, CO2 24, BUN 13, creatinine 0.5. Chest x-ray shows a persistent right apical pneumothorax. Chest tube remains in place. 01/30/2024, the patient is being seen for a follow-up. The patient is is currently on room air oxygen and the patient is ambulating in the hallway without any major difficulties. The patient is status post right upper lobe resection and the patient is postop day #4. She continues to have the chest tu be on the right side of the chest. There is still some limited air leak and the patient's chest tube In place for today. No evidence of any pneumothorax. She is noted squamous cell carcinoma and she underwent robotic assisted thoracoscopic right upper lobe resection and mediastinal lymph node dissection. She is also known to have COPD. The white cell count is at 20 with a hemoglobin of 12.3 and a platelet count of 469. BUN 18 with a creatinine of 0.6 and a sodium level at 138. Remains on DuoNeb nebulized treatments [id number]. Dilaudid for pain control. Home medications have been resumed. She is also on Symbicort as maintenance. On today's evaluation of 01/31/2024, the patient is being seen for a follow-up. No specific complaints and the patient remains on room air oxygen. There is intermittent air leak in the right-sided chest tube which is currently to waterseal. The output is serosanguineous in the order of 10 cc over the past 24 hours. The patient remains on room air oxygen. The patient is using incentive spirometer and pulling approximately 8000. She is ambulating. No significant complaints. She is on metoprolol 25 mg twice a day and she has some mild sinus tachycardia. Otherwise, the white cell count of 18 with a hemoglobin of 13 and a platelet count of 483. The BUN is 20 mg from 0.7 and a sodium level is at 140 with a potassium level of 4.9. No other significant events overnight. We decided to keep the chest tube in for another 24 hours. On 02/01/2024, the patient is being seen for a follow-up. The patient has no specific complaints. She continues to ambulate. There is still persistent air leak in the right-sided chest tube along with a small right-sided pneumothorax. Nevertheless, the patient remains on room air oxygen. No significant chest pain. No respiratory distress. Final pathology was consistent with squamous cell carcinoma and the patient and a stage Ic N0 M0 disease and the postsurgical pathology, and staging were discussed with the patient. Otherwise, the patient is doing well. Clinically and hemodynamically stable. Right-sided chest will be kept in place based on the presence of a right-sided pneumothorax and persistent air leak. On 02/02/2024, patient is being seen for a follow-up. The patient continues to have a right apical pneumothorax on today's chest x-ray and the patient also has ongoing air leak as noted on the chest tube. She remains asymptomatic. No significant shortness of breath. No chest pain. She is on room air oxygen with a pulse ox of 96%. No chest pain. The white cell count at 19.4 with a hemoglobin of 12.8 and a platelet count of 559. BUN 13 with a creatinine 0.6 and a sodium levels at 139. The patient continues to ambulate. The chest tube will be kept in place as long as there is an ongoing air leak and a persistent pneumothorax on today's chest x-ray. She is using incentive spirometer. She is pulling approximately thousand. Cardiac rhythm is sinus. No other significant events overnight. The right chest tube is to waterseal for now. 02/03/2024, the patient is being seen for a follow-up. Some intermittent air leak is still seen on today's chest tube evaluation. The pneumothorax on the right side is significantly dropped in size and the patient has a tiny 5 to 10% right apical pneumothorax on today's chest x-ray. She remains on room air oxygen. She is ambulating. She is still requiring Percocet for pain control. Her pain is under adequate control for now. [facility] No new labs from today. Most recent labs from yesterday were essentially within normal limits. 02/04/2024, the patient is being seen for a follow-up. The patient had a follow-up chest x-ray today and there is no evidence of any pneumothorax. There is still some intermittent air leak from the chest tube and based on that we decided to keep the chest tube in place. She remains on room air oxygen. No new complaints otherwise for now. Afebrile. No chest pain. Right-sided chest tube still in place. White cell count is 18 with a hemoglobin of 12.6 and a platelet count of 509. BUN is 18 with a creatinine of 0.7 and the patient has a sodium level of 138. On 01/26/2024, the patient has a right apical pneumothorax in the order of 10%. Another area of pneumothorax is probably present in the right lung base. Chest tube remains in a good location and the patient has intermittent air leak. She remains on room air oxygen. BUN is 18 with a creatinine 0.7. Sodium levels at 138. WBC count of 18.7 with a hemoglobin 12.6. Denies having any new complaints. Patient seen today on 02/06/2024, patient has developed what seems to be a COVID-19 pneumonia on this admission, chest x-ray is showing worsening infiltrates, clinically the patient has symptoms of pneumonia and for this I am recommending that we start the patient on remdesivir. The changes on the chest x-ray are all new. And his testing yesterday showed COVID-19 infection. This is clearly consistent with COVID-19 pneumonia and the patient will qualify for remdesivir. And she will be placed on the COVID-19 cocktail. ABG today showed a pO2 of 54 pCO2 37 pH of 7.50 basic metabolic profile is normal renal profile is normal WBC count is 23.2 hemoglobin 11.6 Patient was evaluated today on 02/07/2024, patient continues to have persistent air leak from her right-sided chest tube. Continues to have a small pneumothorax. Patient is on remdesivir for her COVID-19 infection along with the COVID-19 cocktail. Feeling about the same. Intermittent cough, no wheezing, no fever, no chills, no hemoptysis. And no chest pain. WBC count is 15.8 hemoglobin is 11.4 basic metabolic profile is normal renal profile is normal procalcitonin level is normal follow-up chest x-ray was noted, she does have right-sided pneumothorax, hence the place was back on suction Patient was seen today on 02/08/2024, she is now postoperative day#13 Robotic assisted thoracoscopic right upper lobectomy with lysis of adhesions and mediastinal lymph node dissection. Patient is doing well continues to have an air leak, continues to have right-sided pneumothorax remains on remdesivir for her acute COVID-19 pneumonia. Patient is not in any distress. WBC count is 14.8 hemoglobin is 10.8 basic metabolic profile is normal renal profile is normalPatient is on 6 L nasal cannula with O2 sats of 98% Seen today on 02/09/2024, patient is now postoperative day #14. Continues to have air leak, continues to have a small tiny apical pneumothorax. Remains on wall suction, minimal drainage is noted. Chest x-ray was reviewed patient still on the COVID-19 cocktail including remdesivir. Does not seem to be in any distress. Feeling better overall clinically WBC count is 15.4 hemoglobin is 10.8 electrolytes are normal and renal profile is normal Reevaluate today on 02/10/2024, patient is now postoperative day #15, doing fairly well except she continues to have ongoing air leak, continues to have small right-sided pneumothorax, patient is comfortable, not in distress, cardiothoracic surgery is entertaining the possibility of talc pleurodesis. At this point the patient is clinically stable, remains on remdesivir, and she remains on the COVID-19 cocktail. Seen today on 02/11/2024, she is now postoperative day #16, continues to have air leak, and right-sided pneumothorax, patient underwent talc pleurodesis today through her right sided chest tube and this was done by Dr. Betancourt, patient had her last dose of remdesivir yesterday, otherwise she is doing fairly well Patient was seen today on 02/12/2024 she is now postoperative day #17 patient had talc pleurodesis yesterday, do not see any air leak today. Patient is now off wall suction, doing well, she does have a small apical pneumothorax. Patient finished a full course of remdesivir WBC count today is 16 hemoglobin 12.1.Basic metabolic profile is normal renal profile is normal Progress note dated February 13, 2024. 48-year-old female who is now been in the hospital for 18 days. The patient is postoperative day #18, and had talc pleurodesis done on February 10. The patient has a persistent right-sided pneumothorax, and hopefully, the chest tube will be removed today. The patient is resting comfortably in bed. Minimal shortness of breath. Current labs include a white count 21.4, hemoglobin 13, hematocrit 41, and platelet count 1,040,000. 138, potassium 4.3, chlorides 104, CO2 29, BUN 12, creatinine 0.6. Glucose is 144. Calcium is 8.9. Chest x-ray shows right sided chest tube in place, with a right apical pneumothorax. Progress note dated February 14, 2024. 48-year-old female who has been in the hospital now for 19 days. She is postoperative day #19, from a previous right upper lobectomy. More recently, she had talc pleurodesis, done on February 10, for persistent right sided pneumothorax. The chest tube will be removed today. The patient will likely be discharged home today. She continues on oxygen at 2 L. She has no specific complaints today. Current labs include a white count 28.8, hemoglobin 1.3, hematocrit 35.8, and a platelet count of 985,000. Sodium 138, potassium 4.5, chlorides 105, CO2 29, BUN 12, creatinine 0.5. Glucose is 70. Magnesium is 2.0. Chest x-ray today shows removal of the right sided chest tube, with a right apical pneumothorax, that measures 3.8 cm. There is volume loss in the right hemithorax. Objective - Vital Signs Vital signs: Vital Signs Temp 97.9 F 02/14/24 11:07 Pulse 74 02/14/24 11:07 Resp 20 02/14/24 11:07 BP 81/51 02/14/24 11:07 Pulse Ox 92 L 02/14/24 11:07 FiO2 Intake & Output 02/13/24 02/14/24 02/14/24 18:59 06:59 18:59 Intake Total 1290 20 250 Output Total 0 Balance 1290 20 250 Weight 48.8 kg 48.8 kg Intake: IV 20 10 Invasive Line 6 20 10 Oral 1290 240 Output: Chest Tube Drainage 0 Chest Tube Right Lateral 0 Chest Drainage 0 Right Upper Chest 0 Other: Voiding Method Toilet Toilet Toilet # Voids 3 4 - Exam No acute distress, oriented 3. Currently on 2 L, nasal O2. HEENT examination is grossly unremarkable. Mucous membranes are moist. No oral lesions. Neck supple. Full range of motion. No adenopathy thyromegaly or neck vein distention. Cardiovascular examination reveals regular rhythm rate. S1-S2 normal. No S3 or S4. No discernible murmur noted. Lungs reveal minimal rhonchi. No wheezes or crackles. Breath sounds equal. Right sided chest tube has been removed. Abdomen soft bowel sounds are heard. No masses or tenderness. Extremities are intact. No cyanosis clubbing or edema. Skin is without rash or lesion. Neurologic examination is brief but nonfocal. - Labs CBC & Chem 7: 02/14/24 06:55 02/14/24 06:55 Labs: Abnormal Lab Results - Last 24 Hours (Table) 02/14/24 02/14/24 Range/Units 06:55 06:55 WBC 28.8 H (3.8-10.6) k/uL RBC 3.55 L (3.80-5.40) m/uL Hgb 11.3 L (11.4-16.0) gm/dL MCV 100.7 H (80.0-100.0) fL Plt Count 985 H (150-450) k/uL Neutrophils # (Manual) 21.60 H (1.3-7.7) k/uL Lymphocytes # (Manual) 6.05 H (1.0-4.8) k/uL Creatinine 0.50 L (0.52-1.04) mg/dL Glucose 70 L (74-99) mg/dL Assessment and Plan Assessment: 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 Status post robotic assisted thoracoscopic right upper lobectomy with lysis of adhesions and mediastinal lymph node dissection. Postoperative day # 19. Chronic hypoxic respiratory failure secondary to heart COPD. FEV1 value 66%. Talc pleurodesis, February 11, 2024, for persistent right sided pneumothorax. Chronic and ongoing tobacco dependence. Respiratory bronchiolitis associated ILD (smoking-related interstitial lung disease, SRIF). Hypertension. Hypothyroidism. Obstructive sleep apnea. Sleeve gastrectomy. Splenectomy in 2018. History of anxiety/depression. Plan: Plan dated January 27, 2024. The patient is seen today in room 358. She is postop day #1 status post robotically assisted right upper lobectomy, lysis of adhesions, and mediastinal lymph node dissection. The patient continues on room air. No IV fluids. Labs, x-rays, medications are reviewed. The chest tube is off of suction. There is no leak. Hopeful discharge in the near future. We will continue to follow make recommendations along the way. Plan dated January 28, 2024. The patient had an uneventful night. She is seen in room 358. She is postoperative day #2. The patient has a right sided chest tube in place. There is a leak. She also has a stable right apical pneumothorax. Labs, x-rays, and all medications are reviewed. We will continue to follow. Prognosis is guarded. Plan dated January 29, 2024. The patient is seen in room 358. She remains on room air. No IV fluids. Right chest tube remains in place. The patient does have a leak. Chest x-ray shows a persistent unchanged right apical pneumothorax. Labs, x-rays, and all medications are reviewed. Prognosis is guarded. Will continue to follow with patient, and make recommendations where appropriate. Plan dated February 13, 2024. The patient had talc pleurodesis on February 10. Her chest x-ray today's procedure shows a persistent right-sided pneumothorax. Despite that, according to cardiothoracic surgery, her right sided chest tube may be removed today. The patient is on 8 L high flow nasal cannula. No IV fluids. She is resting Plan dated February 14, 2024. The patient is doing well. The right sided chest tube has been removed. The plan is to discharge this patient home on some oral antibiotic for 5 to 7 days. I did give cardiothoracic surgery a list of possible antibiotics. Labs, x-rays, and all medications are reviewed. The patient will follow-up with her current audience coordinator, my partner. No additional recommendations are made. Prognosis is guarded. Time with Patient: Less than 30
--- NOTE | 2024-02-14 15:04 | P.DS ---
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 Katz Hypothyroidism Splenectomy, chronic thrombocytosis Chronic back pain on chronic narcotics TIA in 2020 with no residual deficits Anxiety and depression. PRINCIPAL PROCEDURE: Robotic assisted thoracoscopic right upper lobectomy with lysis of adhesions and mediastinal lymph node dissection Right talc pleurodesis HISTORY OF PRESENT ILLNESS: This is a 48-year-old female who follows outpatient with Dr. Kebede for primary care, Dr. Truong for pulmonology, Dr. Katz for cardiology, and Dr. Vasquez for thrombocytosis and oncology. She was recently found to have a right upper lobe mass and underwent workup including PET scan which was positive in the mass and showed some very mild uptake in the hilum, positive on the right and negative on the left as well as suggestive of R11 lymph danica involvement. She underwent bronchoscopic evaluation with robotic controlled CT- guided right upper lobe biopsy which was positive for squamous cell carcinoma. She also underwent EBUS, but no enlarged lymph nodes were noted and no biopsy was performed. Pulmonary function testing was completed, she has been intermittently on home oxygen. The patient was referred to Dr. Betancourt from cardiothoracic surgery. She was given treatment recommendations including radiation with chemotherapy or surgery. The recommendation was ultimately for surgery, and the patient agreed. The usual perioperative course of lobectomy was discussed in detail with the patient and her family, all risks and benefits were explained, all questions were answered, and consent was obtained to proceed with surgery. The patient was scheduled for surgery at the earliest possible date after additional attempt at complete smoking cessation. HOSPITAL COURSE: The patient was brought to the hospital on 01/26/24, taken to the preoperative area, prepared in the usual fashion, and subsequently taken to the operating room where Dr. Betancourt performed robotic assisted thoracoscopic right upper lobectomy. Upon completion of surgery the patient was transferred to the cardiac stepdown unit where she was recovered and monitored hemodynamically. She was extubated, all lines, tubes, and drips were discontinued when appropri ate. Unfortunately the patient continued to have an air leak and needed talc pleurodesis. Additionally she tested positive for COVID and was given the COVID cocktail. Her pleural chest tube was able to be removed on postop day #18. Her oxygen was titrated down although she did require 2 L nasal cannula at discharge, she continued to work with physical and occupational therapy, she was tolerating oral diet, her pain was controlled, and she was ready to be discharged to home on postoperative day #19. She received written and verbal instruction regarding her medications, activity restrictions, signs and symptoms requiring physician notification, and follow-up appointments. Patient Condition at Discharge: Stable Plan - Discharge Summary Discharge Rx Participant: No New Discharge Prescriptions: New Metoprolol Tartrate [Lopressor] 100 mg PO BID #60 tab Aspirin 325 mg PO DAILY #30 tab Amoxic-Pot Clav 875-125Mg [Augmentin 875-125] 1 each PO Q12HR #14 tab Losartan [Cozaar] 25 mg PO DAILY@1200 #30 tab Sennosides-Docusate Sodium [Senokot-S] 2 each PO HS PRN tab PRN Reason: Constipation Acetaminophen Tab [Tylenol] 1,000 mg PO Q6HR PRN tab PRN Reason: Fever And/ Or Pain Continue Levothyroxine Sodium [Synthroid] 50 mcg PO QAM Pantoprazole Sodium [Protonix] 40 mg PO QAM Albuterol Sulfate [Albuterol Sulfate Hfa] 2 puff INHALATION RT-Q6H PRN PRN Reason: Shortness Of Breath Pravastatin Sodium [Pravachol] 40 mg PO DAILY LORazepam [Ativan] 0.5 mg PO TID PRN PRN Reason: Anxiety Budesonide-Formot 160-4.5 Mcg [Symbicort 160-4.5 Mcg Inhaler] 2 puff INHALATION BID Cyclobenzaprine [Flexeril] 10 mg PO BID PRN PRN Reason: Spasms Atogepant [Qulipta] 60 mg PO QAM Ofatumumab [Kesimpta Pen] 20 mg SQ Q30D Gabapentin [Neurontin] 400 mg PO TID PRN PRN Reason: Pain Albuterol Nebulized [Ventolin Nebulized] 2.5 mg INHALATION RT-QID PRN PRN Reason: Shortness Of Breath Cetirizine HCl [Zyrtec] 10 mg PO HS oxyCODONE-APAP 10-325MG [Percocet 10-325 mg] 1 tab PO Q6HR PRN PRN Reason: Pain Nicotine 21Mg/24Hr Patch [Habitrol] 1 each TRANSDERM DAILY Discontinued valACYclovir HCL [Valtrex] 1,000 mg PO DAILY PRN PRN Reason: OUTBREAK Sulfamethoxazole/Trimethoprim [Bactrim DS 800-160 mg] 1 each PO BID Discharge Medication List Levothyroxine Sodium [Synthroid] 50 mcg PO QAM 01/05/14 [History] Pantoprazole Sodium [Protonix] 40 mg PO QAM 05/28/18 [History] Cyclobenzaprine [Flexeril] 10 mg PO BID PRN 10/29/20 [History] Atogepant [Qulipta] 60 mg PO QAM 08/21/21 [History] Ofatumumab [Kesimpta Pen] 20 mg SQ Q30D 02/12/22 [History] Albuterol Sulfate [Albuterol Sulfate Hfa] 2 puff INHALATION RT-Q6H PRN 02/19/23 [History] Gabapentin [Neurontin] 400 mg PO TID PRN 02/19/23 [History] Albuterol Nebulized [Ventolin Nebulized] 2.5 mg INHALATION RT-QID PRN 08/21/23 [History] Pravastatin Sodium [Pravachol] 40 mg PO DAILY 08/21/23 [History] Cetirizine HCl [Zyrtec] 10 mg PO HS 11/07/23 [History] Budesonide-Formot 160-4.5 Mcg [Symbicort 160-4.5 Mcg Inhaler] 2 puff INHALATION BID 01/18/24 [History] LORazepam [Ativan] 0.5 mg PO TID PRN 01/18/24 [History] Nicotine 21Mg/24Hr Patch [Habitrol] 1 each TRANSDERM DAILY 01/18/24 [History] oxyCODONE-APAP 10-325MG [Percocet 10-325 mg] 1 tab PO Q6HR PRN 01/18/24 [History] Acetaminophen Tab [Tylenol] 1,000 mg PO Q6HR PRN tab 02/14/24 [Rx] Amoxic-Pot Clav 875-125Mg [Augmentin 875-125] 1 each PO Q12HR #14 tab 02/14/24 [Rx] Aspirin 325 mg PO DAILY #30 tab 02/14/24 [Rx] Losartan [Cozaar] 25 mg PO DAILY@1200 #30 tab 02/14/24 [Rx] Metoprolol Tartrate [Lopressor] 100 mg PO BID #60 tab 02/14/24 [Rx] Sennosides-Docusate Sodium [Senokot-S] 2 each PO HS PRN tab 02/14/24 [Rx] Follow up Appointment(s)/Referral(s): Cooper Vasquez [STAFF PHYSICIAN] - 03/27/24 2:00 pm Bora Betancourt MD [STAFF PHYSICIAN] - 02/23/24 12:30 pm Ari Katz MD [STAFF PHYSICIAN] - As Needed Keven Kebede MD [Primary Care Provider] - As Needed Bharati Truong MD [STAFF PHYSICIAN] - 03/02/24 8:30 am Activity/Diet/Wound Care/Special Instructions: DISCHARGE INSTRUCTIONS: 1. No driving for 2 weeks, or until physician gives their ok. 2. No lifting, pushing, or pulling more than 10 pounds for 2 weeks. The physician will advise of any restriction changes. 3. Continue pain control per as needed orders. Alternate acetaminophen (Tylenol) and ibuprofen (Motrin/Advil) for pain. 4. Continue with incentive spirometry and splinting until otherwise directed by the physician. 5. Leave chest tube dressing for 48 hours (Tuesday). After that, remove all dressings and shower daily. 6. Routine incision care. No powders, lotions, ointments on incisions. 7. Please call surgeon/TRADE PROMOTION ANALYST for temp greater than 101 F or purulent drainage from incisions. 8. Smoking cessation counseling and program information provided. Quitting smoking is the most important step you can take to improve your health. For additional information and assistance to quit smoking, please call the [place] tobacco quit line (6-174-RXHX-NOW/ ) or online: https://www.[place].gov/[facility]/kswn-cb-ugqbezo/chronicdiseases/tobacco/how-to-qu it-tobacco Discharge Disposition: HOME SELF-CARE
[2024-02-14 15:05] VITALS: BP 103/67; PULSE 97
--- NOTE | 2024-02-15 00:01 | PN ---
PROGRESS NOTE DATE OF SERVICE: 02/13/2024 CHIEF COMPLAINT: Right pneumothorax. HISTORY OF PRESENT ILLNESS: This lady is doing fairly well and there has been no change. Tube has been clamped. She is not having any shortness of breath, or chest pain. PHYSICAL EXAMINATION: LUNGS: Breath sounds are heard on both sides. CARDIAC: Normal. IMPRESSION: 1. Status post right upper lobectomy for squamous cell carcinoma of the lung. 2. Iatrogenic right pneumothorax. PLAN: Await further direction from Thoracic Surgery. MMODL / IJN: [id number] /
--- NOTE | 2024-02-16 11:23 | CDI ---
Documentation Clarification Form Date: 02/16/2024 10:44:01 AM From: Mami Ibarra RN CCDS Phone: [phone] Admit Date: 01/26/2024 05:34:00 AM Patient Name: Laura Rangel Visit Number: [id number] Discharge Date: 02/14/2024 05:39:00 PM ATTENTION: The Clinical Documentation Specialists (CDI) and [facility] Coding Staff appreciate your assistance in clarifying documentation. Please respond to the clarification below the line at the bottom and electronically sign. The CDI & [facility] Coding staff will review the response and follow-up if needed. Please note: Queries are made part of the Legal Health Record. If you have any questions, please contact the author of this message via ITS. Provider: Zoe Deluna Iatrogenic right pneumothorax is documented 02/13, medicine note and patient had Right upper lobe lobectomy, 01/25]. Additional clarification is requested regarding the relationship, if any, that exists between the diagnosis and the procedure. 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 History/Risk Factors: 48 year old female presents to [facility] for elective right upper lobectomy. Medical History: Right upper lobe nodular mass. Medical history: Asthma, Cancer, COPD, Sleep Apnea CPAP/BIPAP and HTN. 01/26, HP. Clinical Indicators: 01/25, CXR: Post lumpectomy changes right upper lobe with chest tube in place and pneumothorax seen. 01/31, CTS note: Persistent air leak from right pleural chest tube greater than 5 days expected. Continue to monitor for airleak and right pneumothorax resolution. 02/02, CTS note: Persistent airleak greater than 5 days, somewhat expected due to significant lung disease and chronic tobacco dependence. 02/12 CT Angio chest: Right upper lobe pneumothorax, possibly secondary to previous cavitary lesion with layering debris. Treatment: Incentive spirometry 10 times every hour while awake. Chest tube to waterseal, Chest tube to wall suction. Serial chest xrays. 01/31 Talc Pleurodesis What relationship, if any, exists between the diagnosis of Iatrogenic pneumothorax and the procedure: [ ] Pneumothorax is a complication of surgical procedure [ ] Pneumothroax is an expected outcome of the surgical procedure [ x ] Pneumothorax is related to patients co-morbid condition(s) chronic tobacco dependence, Interstitial Lung disease, COPD with FEV1 value 66 of predicted and 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 & not a complication of the procedure [ ] Other please specify ____ [ ] Unable to determine (Template Last Revised: June 2020) MTDD
--- NOTE | 2024-02-17 11:12 | CDI ---
Documentation Clarification Form Date: 02/17/2024 09:40:26 AM From: Cherelle Thompson RN, CCDS Phone: [phone] Admit Date: 01/26/2024 05:34:00 AM Patient Name: Laura Rangel Visit Number: [id number] Discharge Date: 02/14/2024 05:39:00 PM ATTENTION: The Clinical Documentation Specialists (CDI) and [facility] Coding Staff appreciate your assistance in clarifying documentation. Please respond to the clarification below the line at the bottom and electronically sign. The CDI & [facility] Coding staff will review the response and follow-up if needed. Please note: Queries are made part of the Legal Health Record. If you have any questions, please contact the author of this message via ITS. Dr. Joaquin Henry The patient experienced persistent hypoxia requiring high flow oxygen to maintain saturation levels. Based on this information and the findings below, is there an additional diagnosis that is clinically appropriate for this patient? History/Risk Factors: chronic leukocytosis and thrombocytosis followed by Hematology, hypothyroidism, COPD with FEV1, respiratory bronchiolitis associated smoking-related interstitial lung disease, HTN and SABRA. She was also diagnosed with SCC of the right upper lobe, mass measuring 2.7 cm November 2023. She was brought in electively for a robotic assisted thoracoscopic right upper lobectomy with lysis of adhesions and mediastinal lymph node dissection. Tobacco use: current smoker Home oxygen: uses 2LNC prn Clinical Indicators: 01/25 Pulmonary consult: "She is seen in consultation in the recovery room. Maintaining good O2 saturations in the 90s on 2 L/min per nasal cannula. SCC of RUL of the lung. S/P robotic assisted thoracoscopic right upper lobectomy with lysis of adhesions and mediastinal lymph node dissection. Chronic hypoxic respiratory failure secondary to COPD." 02/05 CTS: "Currently on 10 L high flow nasal cannula with oxygen saturation 95%. Hypoxia, unsure etiology." 02/06 CTS: "Yesterday the patient developed some respiratory distress, fever, increased tachycardia and hypotension. Viral 4-pack came back positive for COVID. Oxygen was titrated down a bit. Persistent airleak greater than 5 days. COVID PCR positive. Hypoxia, likely from above." 02/04 Vital signs: HR 131-120-119 02/04 pox 89%-92%-90%-91% 02/07 pox: 81%-90%-89%-96% 02/05 CXR: Right-sided chest tube in place. A small right upper pneumothorax is slightly larger at 3.2 cm versus 2.8 cm, previously. COPD with slight interval worsening in diffuse interstitial/reticular opacities and mild patchy bibasilar infiltrates. Lung/Breathing assessment: 02/05 CTS: "Respiratory: Lungs sounds diminished bilaterally with expiratory wheeze heard throughout." 02/05 ABG: pH 7.50 pO2 54 pCO2 37 Treatment: O2 2LNC to 10L high flow oxygen; Spiriva 2 puffs daily 02/05-02/13 Breathing tx: A/A QID ATC 01/25-02/05 Is there an additional diagnosis that is clinically appropriate for this patient? [X ] Acute on chronic hypoxic respiratory failure [ ] Acute pulmonary insufficiency [ ] No additional diagnosis/not clinically significant [ ] Other Diagnosis, please specify [ ] Unable to determine MTDD
== END 2024-02-14 17:39 | disposition home or self-care (01) | DRG 163 ==
LOC: 2ORMAIN 05:34 → 3SCARD 13:23 → UNDODISIN 02-14 17:10
PROVIDERS: ADMIT Thoracic Surgery (Cardiothoracic Vascular Surgery); ATTEND Thoracic Surgery (Cardiothoracic Vascular Surgery)
PROC: 07B74ZX Excision of Thorax Lymphatic, Percutaneous Endoscopic Approach, Diagnostic (ICD-10-PCS; 2024-01-26)
PROC: 0BTC4ZZ Resection of Right Upper Lung Lobe, Percutaneous Endoscopic Approach (ICD-10-PCS; principal; 2024-01-26 07:30)
PROC: XW033E5 Introduction of Remdesivir Anti-infective into Peripheral Vein, Percutaneous Approach, New Technology Group 5 (ICD-10-PCS; 2024-02-06)
PROC: 8E0ZXY6 Isolation (ICD-10-PCS; 2024-02-06)
PROC: 3E0L3GC Introduction of Other Therapeutic Substance into Pleural Cavity, Percutaneous Approach (ICD-10-PCS; 2024-02-11)
DX: C34.11 Malignant neoplasm of upper lobe, right bronchus or lung (principal); J12.82 Pneumonia due to coronavirus disease 2019; J96.21 Acute and chronic respiratory failure with hypoxia; U07.1 COVID-19; J44.0 Chronic obstructive pulmonary disease with (acute) lower respiratory infection; C95.90 Leukemia, unspecified not having achieved remission; J96.11 Chronic respiratory failure with hypoxia; J21.8 Acute bronchiolitis due to other specified organisms; J94.8 Other specified pleural conditions; J93.83 Other pneumothorax; J84.115 Respiratory bronchiolitis interstitial lung disease; Z99.81 Dependence on supplemental oxygen; F32.A Depression, unspecified; I10 Essential (primary) hypertension; E03.9 Hypothyroidism, unspecified; D63.0 Anemia in neoplastic disease; I95.9 Hypotension, unspecified; G47.33 Obstructive sleep apnea (adult) (pediatric); D75.838 Other thrombocytosis; G89.29 Other chronic pain; F41.9 Anxiety disorder, unspecified; M54.9 Dorsalgia, unspecified; G89.18 Other acute postprocedural pain; I44.7 Left bundle-branch block, unspecified; I25.10 Atherosclerotic heart disease of native coronary artery without angina pectoris; R00.0 Tachycardia, unspecified; Z78.9 Other specified health status; Z79.891 Long term (current) use of opiate analgesic; Z90.81 Acquired absence of spleen; Z86.73 Personal history of transient ischemic attack (TIA), and cerebral infarction without residual deficits; Z98.84 Bariatric surgery status; Z79.890 Hormone replacement therapy; Z79.899 Other long term (current) drug therapy; Z79.51 Long term (current) use of inhaled steroids; Z88.3 Allergy status to other anti-infective agents; Z87.891 Personal history of nicotine dependence; Z90.710 Acquired absence of both cervix and uterus
CPT/HCPCS: 36410; 36600; 64999; 71045; 71046; 71275; 76937; 80048; 80053; 81003; 82805; 83735; 84145; 84439; 84443; 85025; 85027; 87040; 87636; 88305; 88309; 88331; 94640; 94760

== ENCOUNTER 2024-03-22 07:30 | Inpatient (IN) | payer BC, MEDICARE ==
--- NOTE | 2024-03-22 07:52 | ED ---
General Adult HPI - General Chief complaint: Upper Respiratory Infection Stated complaint: Congestion Time Seen by Provider: 03/22/24 07:37 Source: patient, family, RN notes reviewed Mode of arrival: ambulatory Limitations: no limitations - History of Present Illness Initial comments: Patient is a 48-year-old female present to the emergency department with several complaints. Onset of symptoms was the past day. Patient does have complaints of feeling achy all over, headache she has history of similar headaches previously. Patient has congestion in her chest as well as upper. Patient does have cough with yellow sputum. Patient does feel short of breath. Patient has history of COPD. Patient denies specific chest discomfort. Patient did have a lobectomy secondary to stage II lung cancer done in January. - Related Data Home Medications Medication Instructions Recorded Confirmed Levothyroxine Sodium [Synthroid] 50 mcg PO QAM 01/05/14 01/26/24 Pantoprazole Sodium [Protonix] 40 mg PO QAM 05/28/18 01/26/24 Cyclobenzaprine [Flexeril] 10 mg PO BID PRN 10/29/20 01/26/24 Atogepant [Qulipta] 60 mg PO QAM 08/21/21 01/26/24 Ofatumumab [Kesimpta Pen] 20 mg SQ Q30D 02/12/22 01/26/24 Albuterol Sulfate [Albuterol 2 puff INHALATION RT-Q6H PRN 02/19/23 01/26/24 Sulfate Hfa] Gabapentin [Neurontin] 400 mg PO TID PRN 02/19/23 01/26/24 Albuterol Nebulized [Ventolin 2.5 mg INHALATION RT-QID PRN 08/21/23 01/26/24 Nebulized] Pravastatin Sodium [Pravachol] 40 mg PO DAILY 08/21/23 01/26/24 Cetirizine HCl [Zyrtec] 10 mg PO HS 11/07/23 01/26/24 Budesonide-Formot 160-4.5 Mcg 2 puff INHALATION BID 01/18/24 01/26/24 [Symbicort 160-4.5 Mcg Inhaler] LORazepam [Ativan] 0.5 mg PO TID PRN 01/18/24 01/26/24 Nicotine 21Mg/24Hr Patch [Habitrol] 1 each TRANSDERM DAILY 01/18/24 01/26/24 oxyCODONE-APAP 10-325MG [Percocet 1 tab PO Q6HR PRN 01/18/24 01/26/24 10-325 mg] Previous Rx's Medication Instructions Recorded Acetaminophen Tab [Tylenol] 1,000 mg PO Q6HR PRN tab 02/14/24 Amoxic-Pot Clav 875-125Mg 1 each PO Q12HR #14 tab 02/14/24 [Augmentin 875-125] Aspirin 325 mg PO DAILY #30 tab 02/14/24 Losartan [Cozaar] 25 mg PO DAILY@1200 #30 tab 02/14/24 Metoprolol Tartrate [Lopressor] 100 mg PO BID #60 tab 02/14/24 Sennosides-Docusate Sodium 2 each PO HS PRN tab 02/14/24 [Senokot-S] Allergies Allergy/AdvReac Type Severity Reaction Status Date / Time bee venom protein (honey bee) Allergy SWELLING , Verified 03/22/24 07:36 AND ITCHING Bleach (Sodium Hypochlorite) Allergy Rash/Hives Verified 03/22/24 07:36 nitrofurantoin Allergy Rash/Hives Verified 03/22/24 07:36 [From Macrobid] nitrofurantoin Allergy Rash/Hives Verified 03/22/24 07:36 macrocrystalline [From Macrobid] moxifloxacin [From Avelox] AdvReac Nausea & Verified 03/22/24 07:36 Vomiting NSAIDS (Non-Steroidal AdvReac Had Verified 03/22/24 07:36 Anti-Inflamma gastric sleeve surgery, causes bleeds. seasonal allergies Allergy congestion Uncoded 01/26/24 05:51 and sneezing Review of Systems ROS Statement: Those systems with pertinent positive or pertinent negative responses have been documented in the HPI. ROS Other: All systems not noted in ROS Statement are negative. Constitutional: Denies: fever Eyes: Denies: eye pain ENT: Reports: congestion. Denies: ear pain Respiratory: Reports: cough, dyspnea Cardiovascular: Denies: chest pain Endocrine: Denies: fatigue Gastrointestinal: Denies: abdominal pain Neurological: Reports: headache. Denies: weakness, confusion Past Medical History Past Medical History: Asthma, Cancer, COPD, CVA/TIA, GERD/Reflux, Hypertension, Musculoskeletal Disorder, Neurologic Disorder, Sleep Apnea/CPAP/BIPAP, Thyroid Disorder Additional Past Medical History / Comment(s): smoking-related interstitial lung disease, doesn't use CPAP, history of seizure at the age of 16 related to med. to stop breast milk, endometriosis, chronic back pain, plantar fasciitis, hx. of Achilles tendinitis, probably antibiotic induced. She also has history of hypothyroidism, ALLERGIC rhinitis, migraines, uses oxygen 2L prn, recent iron infusion, MS , tia 2020 no residual issues, needs cholecystetomy, tinnitus, balance issues,. Dx. w/ leukemia, 10/2023 History of Any Multi-Drug Resistant Organisms: None Reported Past Surgical History: Bariatric Surgery, Cholecystectomy, Hysterectomy, Tubal Ligation, Uterine Ablation Additional Past Surgical History / Comment(s): LEEP PROCEDURE X 2, EGD, BACK INJECTIONS FOR PAIN. The patient has also undergone thoracic/thoracoscopic wedge biopsy of the right lung. 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; R and Y bypass at [facility] 2019,TRACHEOTOMY-RESOLVED Past Anesthesia/Blood Transfusion Reactions: Motion Sickness Additional Past Anesthesia/Blood Transfusion Reaction / Comment(s): no problem w/blood transfusion Past Psychological History: Anxiety, Depression Smoking Status: Current every day smoker - Past Family History Sister(s) Family Medical History: Cancer Additional Family Medical History / Comment(s): ovarian Mother Family Medical History: Cancer Additional Family Medical History / Comment(s): breast cancer Father Family Medical History: COPD, CVA/TIA, Myocardial Infarction ([place]) Additional Family Medical History / Comment(s): HEART PROBLEMS, AT AGE 64 General Exam Limitations: no limitations General appearance: alert, in no apparent distress Head exam: Present: normocephalic Eye exam: Present: normal appearance ENT exam: Present: normal exam Neck exam: Present: normal inspection Respiratory exam: Present: wheezes, decreased breath sounds Cardiovascular Exam: Present: tachycardia GI/Abdominal exam: Present: soft. Absent: tenderness Extremities exam: Present: normal inspection. Absent: pedal edema, calf tenderness Neurological exam: Present: alert. Absent: motor sensory deficit Psychiatric exam: Present: normal affect, normal mood Skin exam: Present: normal color Course Vital Signs 03/22/24 03/22/24 03/22/24 07:32 07:53 08:41 Temperature 98.1 F 100.7 F H Pulse Rate 115 H 103 H 100 Respiratory 16 20 Rate Blood Pressure 159/84 152/87 O2 Sat by Pulse 92 L 98 Oximetry 03/22/24 03/22/24 08:52 08:54 Temperature Pulse Rate 106 H 106 H Respiratory 18 Rate Blood Pressure 149/85 O2 Sat by Pulse 97 Oximetry EKG Findings - EKG Results: EKG: interpreted by ERMD (Left axis. Q wave V1 V2. PVCs present), sinus rhythm, normal ST/T EKG shows: tachycardia Medical Decision Making - Medical Decision Making Was pt. sent in by a medical professional or institution (, PA, [facility], urgent care, hospital, or senior living...) When possible be specific @ -No Did you speak to anyone other than the patient for history (EMS, parent, family, police, friend...)? What history was obtained from this source @ -No Did you review nursing and triage notes (agree or disagree)? Why? @ -I reviewed and agree with nursing and triage notes Were old charts reviewed (outside hosp., previous admission, EMS record, old EKG, old radiological studies, urgent care reports/EKG's, senior living records)? Report findings @ -Previous chest x-rays reviewed with somewhat similar findings, previous x- ray with chest tube Differential Diagnosis (chest pain, altered mental status, abdominal pain women, abdominal pain men, vaginal bleeding, weakness, fever, dyspnea, syncope, headache, dizziness, GI bleed, back pain, seizure, CVA, palpatations, mental health, musculoskeletal)? @ -Differential Dyspnea: Coronary syndrome, arrhythmia, tamponade, asthma, COPD, pulmonary embolism, pneumonia, pneumothorax, pulmonary effusion, anaphylaxis, diabetic ketoacidosis, flailed chest, pulmonary contusion, diaphragmatic rupture, anemia, neuromuscular, this is not meant to be an all-inclusive list. EKG interpreted by me (3pts min.). @ -As above X-rays interpreted by me (1pt min.). @ -Chest x-ray shows right upper lobe pneumothorax. Bilateral increased interstitial densities, similar to previous CT interpreted by me (1pt min.). @ -None done U/S interpreted by me (1pt. min.). @ -None done What testing was considered but not performed or refused? (CT, X-rays, U/S, labs)? Why? @ - What meds were considered but not given or refused? Why? @ -None Did you discuss the management of the patient with other professionals (professionals i.e. , PA, [facility], lab, RT, psych nurse, school social worker, quality assurance supervisor body, teacher, supply officer, case specialist)? Give summary @ -Dr. Kebede for admission Was smoking cessation discussed for >3mins.? @ -No Was critical care preformed (if so, how long)? @ -31 minutes critical care time provided Were there social determinants of health that impacted care today? How? (Homelessness, low income, unemployed, alcoholism, drug addiction, tr ansportation, low edu. Level, literacy, decrease access to med. care, penitentiary, rehab)? @ -No Was there de-escalation of care discussed even if they declined (Discuss DNR or withdrawal of care, Hospice)? DNR status @ -No What co-morbidities impacted this encounter? (DM, HTN, Smoking, COPD, CAD, Cancer, CVA, ARF, Chemo, Hep., AIDS, mental health diagnosis, sleep apnea, morbid obesity)? @ -History of COPD and recent lung resection. History of lung cancer as well as leukemia Was patient admitted / discharged? Hospital course, mention meds given and route, prescriptions, significant lab abnormalities, going to OR and other pertinent info. @ -Patient presents with difficulty breathing and fever. Patient is tachycardic and hypoxic. Chest x-ray similar to previous. Infiltrates do not show definitive new pneumonia. Patient will be admitted for COPD exacerbation. Blood culture and lactic acid and IV antibiotics have all been provided. Patient will be admitted, admission orders written. Pulmonary consult will be placed, patient states she sees Dr. Conklin in. There is concern for sepsis diagnosed at 8:50 AM. Undiagnosed new problem with uncertain prognosis? @ -No Drug Therapy requiring intensive monitoring for toxicity (Heparin, Nitro, Insulin, Cardizem)? @ -No Were any procedures done? @ -No Diagnosis/symptom? @ -COPD, sepsis Acute, or Chronic, or Acute on Chronic? @ -Acute Uncomplicated (without systemic symptoms) or Complicated (systemic symptoms)? @ -Complicated with febrile illness and tachycardia Side effects of treatment? @ -No Exacerbation, Progression, or Severe Exacerbation? @ -Exacerbation of COPD Poses a threat to life or bodily function? How? (Chest pain, [place], [place], pneumonia, PE, COPD, DKA, ARF, appy, cholecystitis, CVA, Diverticulitis, Homicidal, Suic idal, threat to staff... and all critical care pts) @ -Threat to pulmonary function - Lab Data Result diagrams: 03/22/24 08:10 03/22/24 08:10 Lab Results 03/22/24 03/22/24 03/22/24 Range/Units 08:10 08:10 08:10 WBC 27.3 H (3.8-10.6) k/uL RBC 4.40 (3.80-5.40) m/uL Hgb 14.1 (11.4-16.0) gm/dL Hct 44.1 (34.0-46.0) % MCV 100.2 H (80.0-100.0) fL MCH 32.0 (25.0-35.0) pg MCHC 31.9 (31.0-37.0) g/dL RDW 13.7 (11.5-15.5) % Plt Count 669 H (150-450) k/uL MPV 6.8 Neutrophils % 81 % Lymphocytes % 9 % Monocytes % 4 % Eosinophils % 5 % Basophils % 1 % Neutrophils # 22.0 H (1.3-7.7) k/uL Lymphocytes # 2.5 (1.0-4.8) k/uL Monocytes # 1.0 (0-1.0) k/uL Eosinophils # 1.5 H (0-0.7) k/uL Basophils # 0.1 (0-0.2) k/uL PT 10.6 (10.0-12.5) sec INR 1.0 (<1.2) APTT 26.6 (22.0-30.0) sec Sodium 140 (137-145) mmol/L Potassium 3.8 (3.5-5.1) mmol/L Chloride 106 (98-107) mmol/L Carbon Dioxide 24 (22-30) mmol/L Anion Gap 10 mmol/L BUN 11 (7-17) mg/dL Creatinine 0.63 (0.52-1.04) mg/dL Est GFR (CKD-EPI)AfAm >90 (>60 ml/min/1.73 sqM) Est GFR (CKD-EPI)NonAf >90 (>60 ml/min/1.73 sqM) Glucose 90 (74-99) mg/dL Plasma Lactic Acid Miguel Angel (0.7-2.0) mmol/L Calcium 9.0 (8.4-10.2) mg/dL Magnesium 1.8 (1.6-2.3) mg/dL Total Bilirubin 0.7 (0.2-1.3) mg/dL AST 57 H (14-36) U/L ALT 12 (4-34) U/L Alkaline Phosphatase 157 H (38-126) U/L NT-Pro-B Natriuret Pep 1080 pg/mL Total Protein 8.4 H (6.3-8.2) g/dL Albumin 4.5 (3.5-5.0) g/dL Influenza Type A (PCR) (Not Detectd) Influenza Type B (PCR) (Not Detectd) RSV (PCR) (Not Detectd) SARS-CoV-2 (PCR) (Not Detectd) 03/22/24 03/22/24 Range/Units 08:10 08:11 WBC (3.8-10.6) k/uL RBC (3.80-5.40) m/uL Hgb (11.4-16.0) gm/dL Hct (34.0-46.0) % MCV (80.0-100.0) fL MCH (25.0-35.0) pg MCHC (31.0-37.0) g/dL RDW (11.5-15.5) % Plt Count (150-450) k/uL MPV Neutrophils % % Lymphocytes % % Monocytes % % Eosinophils % % Basophils % % Neutrophils # (1.3-7.7) k/uL Lymphocytes # (1.0-4.8) k/uL Monocytes # (0-1.0) k/uL Eosinophils # (0-0.7) k/uL Basophils # (0-0.2) k/uL PT (10.0-12.5) sec INR (<1.2) APTT (22.0-30.0) sec Sodium (137-145) mmol/L Potassium (3.5-5.1) mmol/L Chloride (98-107) mmol/L Carbon Dioxide (22-30) mmol/L Anion Gap mmol/L BUN (7-17) mg/dL Creatinine (0.52-1.04) mg/dL Est GFR (CKD-EPI)AfAm (>60 ml/min/1.73 sqM) Est GFR (CKD-EPI)NonAf (>60 ml/min/1.73 sqM) Glucose (74-99) mg/dL Plasma Lactic Acid Miguel Angel 1.6 (0.7-2.0) mmol/L Calcium (8.4-10.2) mg/dL Magnesium (1.6-2.3) mg/dL Total Bilirubin (0.2-1.3) mg/dL AST (14-36) U/L ALT (4-34) U/L Alkaline Phosphatase (38-126) U/L NT-Pro-B Natriuret Pep pg/mL Total Protein (6.3-8.2) g/dL Albumin (3.5-5.0) g/dL Influenza Type A (PCR) Not Detected (Not Detectd) Influenza Type B (PCR) Not Detected (Not Detectd) RSV (PCR) Not Detected (Not Detectd) SARS-CoV-2 (PCR) Not Detected (Not Detectd) Critical Care Time Critical Care Time: Yes Disposition Clinical Impression: COPD exacerbation, Sepsis Disposition: ADMITTED IP TO THIS HOSP Condition: Serious Is patient prescribed a controlled substance at d/c from ED?: No Referrals: Keven Kebede MD [Primary Care Provider] - 1-2 days Time of Disposition: 10:19
[2024-03-22] MEDS: ACETAMINOPHEN TAB 500 MG TAB PO STA (08:14)
[2024-03-22] MEDS: methylPREDNISolone SOD SUCCI 125 MG/2 ML VIAL IV STA (08:14)
[2024-03-22 08:21] LABS: Basophils # (A) 0.1 k/uL (0-0.2); Basophils % (A) 1 %; Eosinophils # (A) 1.5 k/uL (0-0.7); Eosinophils % (A) 5 %; HCT 44.1 % (34.0-46.0); HGB 14.1 gm/dL (11.4-16.0); Lymphocytes # (A) 2.5 k/uL (1.0-4.8); Lymphocytes % (A) 9 %; MCHC 31.9 g/dL (31.0-37.0); MCV 100.2 fL (80.0-100.0); Mean Platelet Volume 6.8; Monocytes % (A) 4 %; Neutrophils % (A) 81 %; Platelet Count 669 k/uL (150-450); RDW 13.7 % (11.5-15.5); WBC 27.3 k/uL (3.8-10.6)
[2024-03-22 08:35] LABS: Partial Thromboplastin Time 26.6 sec (22.0-30.0); Prothrombin Time 10.6 sec (10.0-12.5)
[2024-03-22 08:40] LABS: NT-Pro-B-Type Natriuretic Pept 1080 pg/mL
[2024-03-22] MEDS: IPRATROPIUM-ALBUTEROL 3 ML NEB INHALATION STA (08:41)
--- NOTE | 2024-03-22 08:52 | XR ---
EXAMINATION TYPE: XR chest 2V DATE OF EXAM: 03/22/2024 8:43 AM COMPARISON: 02/14/2024 CLINICAL INDICATION: Female, 48 years old with shortness of breath, history of difficulty breathing, , TECHNIQUE: PA and lateral views FINDINGS: Heart normal size. Atherosclerotic arch calcifications. Medium interstitial opacities persist bilater ally. Ongoing trace right pleural effusion. The previous right apical pneumothorax is now opacified p robably with pleural fluid measuring 2.8 cm thick versus 3.8 cm, previously. Locule of intrapleural a ir noted at the right apex suggesting persistence of an underlying apical pneumothorax. IMPRESSION: 1. Ongoing bilateral interstitial opacities, considerations include interstitial pulmonary edema and atypical pneumonia. 2. Right apical pneumothorax likely still present but now opacified with pleural fluid. Possibly shayla uring 2.8 cm versus 3.8 cm, previously. [facility], , 03/22/2024 8:50 AM
[2024-03-22] MEDS: cefTRIAXone IN SWFI 1,000 MG/10 ML SYRINGE IVP STA (08:54)
[2024-03-22 09:40] LABS: ALT 12 U/L (4-34); African American GFR (CKD) >90 (>60 ml/min/1.73 sqM); Albumin 4.5 g/dL (3.5-5.0); Anion Gap 10 mmol/L; Blood Urea Nitrogen 11 mg/dL (7-17); Carbon Dioxide 24 mmol/L (22-30); Chloride 106 mmol/L (98-107); Glucose 90 mg/dL (74-99); Magnesium 1.8 mg/dL (1.6-2.3); Non-African American GFR(CKD) >90 (>60 ml/min/1.73 sqM); Sodium 140 mmol/L (137-145); Total Bilirubin 0.7 mg/dL (0.2-1.3)
[2024-03-22 09:48] LABS: AST 57 U/L (14-36); Alkaline Phosphatase 157 U/L (38-126); Potassium 3.8 mmol/L (3.5-5.1); Total Protein 8.4 g/dL (6.3-8.2)
[2024-03-22] MEDS ORDERED: IPRATROPIUM-ALBUTEROL 3 ML NEB INHALATION PRN (10:19)
[2024-03-22] MEDS ORDERED: NALOXONE 0.4 MG/ML 1 ML VIAL IVP PRN (10:19)
[2024-03-22] MEDS ORDERED: PNEUMONIA PROTOCOL UTILIZED 1 EACH MISC PO PRN (10:19)
[2024-03-22] MEDS: AZITHROMYCIN 500 MG in SODIUM CHLORIDE 0.9% 250 ML IVPB STA (10:30)
[2024-03-22] MEDS ORDERED: ALBUTEROL NEBULIZED 2.5 MG/3 ML INHALATION PRN (11:20)
[2024-03-22] MEDS: OFATUMUMAB 20 MG/0.4 ML SQ SCH (11:50)
[2024-03-22] MEDS: oxyCODONE-APAP 10-325MG 1 EACH TAB PO PRN (12:00)
[2024-03-22] MEDS: NICOTINE 21MG/24HR PATCH TRANSDERM PRN (12:01)
[2024-03-22] MEDS: methylPREDNISolone SOD SUCCI 125 MG/2 ML VIAL IV SCH (12:39)
[2024-03-22] MEDS: IPRATROPIUM-ALBUTEROL 3 ML NEB INHALATION SCH (12:58)
[2024-03-22] MEDS: CYCLOBENZAPRINE 10 MG TAB PO PRN (13:41)
[2024-03-22] MEDS: GABAPENTIN 400 MG CAP PO PRN (13:41)
--- NOTE | 2024-03-22 15:01 | P.CNPUL ---
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 On January 26, 2024 she had undergone a robotic assisted thoracoscopic right upper lobectomy. 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 Lymph nodes were negative. She did have a continuous air leak for several days following the procedure. She also developed COVID-19 infection and had a prolonged length of stay. She was subsequently discharged home on 02/14/2024. She presented here early this morning to the emergency room with complaints of increasing shortness of breath, headache, cough congestion and aching all over. Chest x-ray reveals ongoing bilateral interstitial opacities possible interstitial pulmonary edema versus atypical pneumonia. Right apical pneumothorax remains but now opacified with pleural fluid. Measuring approximately 2.8 cm. White count 27.3. Hemoglobin 14.1. Platelets 669. Sodium 140. Potassium 3.8. Bicarb 24. BUN 11. Crea tinine 0.63. Glucose 90. proBNP 1080. Viral screen negative. She is seen today in the emergency department. She is currently sitting up in a stretcher. Awake and alert in no acute distress. She has a loose congested cough. Maintaining O2 saturations in the mid to upper 90s on 3 L/min per nasal cannula. She is afebrile. Hemodynamically stable. She did have a Tmax on arrival of 100.7. She has been initiated on DuoNeb and elations, Symbicort, Solu-Medrol. Antibiotics in the form of ceftriaxone and azithromycin. She does have ongoing chronic tobacco dependence. NicoDerm patch in place. Review of Systems REVIEW OF SYSTEMS: CONSTITUTIONAL: Positive for generalized aches and pains, weakness. Denies any recent significant weight loss or weight gain. EYES: Denies change in vision. EARS, NOSE, MOUTH, THROAT: Positive for headaches, denies sore throat. CARDIOVASCULAR: Denies chest pain, palpitations or syncopal episodes. RESPIRATORY: Positive for shortness of breath, cough, congestion no hemoptysis. GASTROINTESTINAL: Denies change in appetite, denies abdominal pain GENITOURINARY: Denies hematuria, denies infections. MUSKULOSKELETAL: Denies pain, denies swelling. INTEGUMENTARY: Denies rash, denies eczema. NEUROLOGICAL: Denies recent memory loss, no recent seizure activity. PSYCHIATRIC: Denies anxiety, denies depression. HEMATOLOGIC/LYMPHATIC: Denies anemia, denies enlarged lymph nodes. Past Medical History Past Medical History: Asthma, Cancer, COPD, CVA/TIA, GERD/Reflux, Hypertension, Musculoskeletal Disorder, Neurologic Disorder, Sleep Apnea/CPAP/BIPAP, Thyroid Disorder Additional Past Medical History / Comment(s): smoking-related interstitial lung disease, doesn't use CPAP, history of seizure at the age of 16 related to med. to stop breast milk, endometriosis, chronic back pain, plantar fasciitis, hx. of Achilles tendinitis, probably antibiotic induced. She also has history of hypothyroidism, ALLERGIC rhinitis, migraines, uses oxygen 2L prn, recent iron infusion, MS , tia 2020 no residual issues, needs cholecystetomy, tinnitus, balance issues,. Dx. w/ leukemia, 10/2023 History of Any Multi-Drug Resistant Organisms: None Reported Past Surgical History: Bariatric Surgery, Cholecystectomy, Hysterectomy, Tubal Ligation, Uterine Ablation Additional Past Surgical History / Comment(s): LEEP PROCEDURE X 2, EGD, BACK INJECTIONS FOR PAIN. The patient has also undergone thoracic/thoracoscopic wedge biopsy of the right lung. 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; R and Y bypass at [facility] 2019,TRACHEOTOMY-RESOLVED Past Anesthesia/Blood Transfusion Reactions: Motion Sickness Additional Past Anesthesia/Blood Transfusion Reaction / Comment(s): no problem w/blood transfusion Past Psychological History: Anxiety, Depression Smoking Status: Current every day smoker - Past Family History Sister(s) Family Medical History: Cancer Additional Family Medical History / Comment(s): ovarian Mother Family Medical History: Cancer Additional Family Medical History / Comment(s): breast cancer Father Family Medical History: COPD, CVA/TIA, Myocardial Infarction ([place]) Additional Family Medical History / Comment(s): HEART PROBLEMS, AT AGE 64 Medications and Allergies Home Medications Medication Instructions Recorded Confirmed Type Levothyroxine Sodium [Synthroid] 50 mcg PO DAILY 01/05/14 03/22/24 History Pantoprazole Sodium [Protonix] 40 mg PO DAILY 05/28/18 03/22/24 History Cyclobenzaprine [Flexeril] 10 mg PO BID PRN 10/29/20 03/22/24 History Ofatumumab [Kesimpta Pen] 20 mg SQ Q30D 02/12/22 03/22/24 History Albuterol Sulfate [Albuterol 2 puff INHALATION RT-Q6H PRN 02/19/23 03/22/24 History Sulfate Hfa] Gabapentin [Neurontin] 400 mg PO TID PRN 02/19/23 03/22/24 History Pravastatin Sodium [Pravachol] 40 mg PO DAILY@1700 08/21/23 03/22/24 History LORazepam [Ativan] 0.5 mg PO BID PRN 01/18/24 03/22/24 History Nicotine 21Mg/24Hr Patch [Habitrol] 1 patch TRANSDERM DAILY PRN 01/18/24 03/22/24 History oxyCODONE-APAP 10-325MG [Percocet 1 tab PO Q6HR PRN 01/18/24 03/22/24 History 10-325 mg] Aspirin 325 mg PO DAILY #30 tab 02/14/24 03/22/24 Rx Metoprolol Tartrate [Lopressor] 100 mg PO BID #60 tab 02/14/24 03/22/24 Rx Fluticasone/Umeclidin/Vilanter 1 puff INHALATION RT-DAILY 03/22/24 03/22/24 H istory [Trelegy Ellipta 100-62.5-25] Losartan [Cozaar] 25 mg PO DAILY 03/22/24 03/22/24 History valACYclovir HCL [Valacyclovir] 2,000 mg PO DAILY PRN 03/22/24 03/22/24 History Allergies Allergy/AdvReac Type Severity Reaction Status Date / Time bee venom protein (honey bee) Allergy SWELLING , Verified 03/22/24 10:33 AND ITCHING Bleach (Sodium Hypochlorite) Allergy Rash/Hives Verified 03/22/24 10:33 nitrofurantoin Allergy Rash/Hives Verified 03/22/24 10:33 [From Macrobid] nitrofurantoin Allergy Rash/Hives Verified 03/22/24 10:33 macrocrystalline [From Macrobid] moxifloxacin [From Avelox] AdvReac Nausea & Verified 03/22/24 10:33 Vomiting NSAIDS (Non-Steroidal AdvReac Had Verified 03/22/24 10:33 Anti-Inflamma gastric sleeve surgery, causes bleeds. seasonal allergies Allergy congestion Uncoded 03/22/24 10:33 and sneezing Physical Exam Vitals: Vital Signs Temp Pulse Resp BP Pulse Ox 03/22/24 13:32 96.7 F L 104 H 18 99/63 98 03/22/24 13:11 108 H 03/22/24 12:58 102 H 03/22/24 11:50 98.6 F 99 18 111/73 97 03/22/24 10:29 10.2 F L 112 H 20 110/72 98 03/22/24 08:54 106 H 18 149/85 97 03/22/24 08:52 106 H 03/22/24 08:41 100 03/22/24 07:53 100.7 F H 103 H 20 152/87 98 03/22/24 07:32 98.1 F 115 H 16 159/84 92 L Intake and Output 03/21/24 03/22/24 03/22/24 22:59 06:59 14:59 Other: Weight 50.802 kg GENERAL EXAM: Alert, pleasant 48-year-old female, on 3 L nasal cannula, fairly comfortable in no apparent distress. HEAD: Normocephalic. EYES: Normal reaction of pupils, equal size. NOSE: Clear with pink turbinates. THROAT: No erythema or exudates. NECK: No masses, no JVD. CHEST: No chest wall deformity. LUNGS: Equal air entry with bilateral scattered rhonchi. CVS: S1 and S2 normal with no audible murmur, regular rhythm. ABDOMEN: No hepatosplenomegaly, normal bowel sounds, no guarding or rigidity. SPINE: No scoliosis or deformity SKIN: No rashes CENTRAL NERVOUS SYSTEM: No focal deficits, tone is normal in all 4 extremities. EXTREMITIES: There is no peripheral edema. No clubbing, no cyanosis. Peripheral pulses are intact. Results - Laboratory Findings CBC and BMP: 03/22/24 08:10 12/05/24 08:10 PT/INR, D-dimer PT 10.6 sec (10.0-12.5) 03/22/24 08:10 INR 1.0 (<1.2) 03/22/24 08:10 Abnormal lab findings: Abnormal Labs 03/22/24 03/22/24 08:10 08:10 WBC 27.3 H MCV 100.2 H Plt Count 669 H Neutrophils # 22.0 H Eosinophils # 1.5 H AST 57 H Alkaline Phosphatase 157 H Total Protein 8.4 H - Diagnostic Findings Chest x-ray: image reviewed Assessment and Plan Assessment: Acute on chronic hypoxemic respiratory failure secondary to an acute exacerbation of chronic obstructive pulmonary disease and possible underlying community acquired pneumonia 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 Status post right upper lobectomy on January 26, 2024 with prolonged hospitalization through February 14, 2024 [place] pleurodesis, February 11, 2024, for persistent right sided pneumothorax. Today's chest x-ray reveals right apical pneumothorax still present but opacified with pleural fluid. Measuring approximately 2.8 cm versus 3.8 cm previously COVID-19 infection while hospitalized in January 2024 Chronic hypoxic respiratory failure secondary to heart COPD. FEV1 value 66% Chronic and ongoing tobacco dependence Respiratory bronchiolitis associated ILD (smoking-related interstitial lung dis ease) Hypertension Hypothyroidism Obstructive sleep apnea Sleeve gastrectomy Splenectomy in 2018 History of anxiety/depression Plan: The patient was seen and evaluated Imaging, labs and medications reviewed Continue bronchodilators, steroids Continue antibiotics for now Check a procalcitonin Again educated regarding smoking cessation NicoDerm patch in place The FiO2 as tolerated We will continue to follow and make further recommendations based on her clinical status I have personally seen and examined the patient, performed the documentation and the assessment and plan as written. Number of minutes spent on the visit: 20 Dictation was produced using [employer] dictation software. Please excuse any grammatical, word or spelling errors.
--- NOTE | 2024-03-22 15:36 | P.CONS ---
History of Present Illness - Reason for Consult Consult date: 03/22/24 cancer care Requesting physician: Adrian Johnson - Chief Complaint SOB, cough - History of Present Illness Ms. Sanchez is a very pleasant 48-year-old female who follows regularly with Dr. Vasquez for leukocytosis and thrombocytosis. MPN workup was negative and small BCR- ABL finding was felt to be an incidental finding. Noted leukocytosis and thrombocytosis was felt to be r/t splenectomy. She underwent lobectomy on 01/27/2024, final pathology showing invasive squamous cell carcinoma, 2.7 cm, grade 2 with 0/6 lymph nodes. Course was complicated with COVID-pneumonia diagnosed on 02/06/2024. As for her stage Ia lung cancer, no further adjuvant therapy is required, recommended routine surveillance. Patient presented to the emergency room with complaints of bodyaches, headache, shortness of breath and cough over the last 4-5 days. Patient reports she had a sick contact with her grandchild. On admit chest x-ray showed ongoing bilateral interstitial opacities, interstitial pulmonary edema versus atypical pneumonia. Right apical pneumothorax likely still present but now opacified with pleural fluid. Measuring 2.8 cm versus 3.8 cm previously. Tmax 100.7. Labs reviewed, WBC 27.3, hemoglobin 14.1, platelets 669,000. Coags WNL. BNP 1080. Viral panel negative. Blood culture and sputum culture pending. Patient has been started on azithromycin and Rocephin. Pulmonology following Review of Systems 10 point ROS is negative except as stated in the HPI Past Medical History Past Medical History: Asthma, Cancer, COPD, CVA/TIA, GERD/Reflux, Hypertension, Musculoskeletal Disorder, Neurologic Disorder, Sleep Apnea/CPAP/BIPAP, Thyroid Disorder Additional Past Medical History / Comment(s): smoking-related interstitial lung disease, doesn't use CPAP, history of seizure at the age of 16 related to med. to stop breast milk, endometriosis, chronic back pain, plantar fasciitis, hx. of Achilles tendinitis, probably antibiotic induced. She also has history of hypo thyroidism, ALLERGIC rhinitis, migraines, uses oxygen 2L prn, recent iron infusion, MS , tia 2020 no residual issues, needs cholecystetomy, tinnitus, balance issues,. Dx. w/ leukemia, 10/2023 History of Any Multi-Drug Resistant Organisms: None Reported Past Surgical History: Bariatric Surgery, Cholecystectomy, Hysterectomy, Tubal Ligation, Uterine Ablation Additional Past Surgical History / Comment(s): LEEP PROCEDURE X 2, EGD, BACK INJECTIONS FOR PAIN. The patient has also undergone thoracic/thoracoscopic wedge biopsy of the right lung. 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; R and Y bypass at [facility] 2019,TRACHEOTOMY-RESOLVED Past Anesthesia/Blood Transfusion Reactions: Motion Sickness Additional Past Anesthesia/Blood Transfusion Reaction / Comm: no problem w/blood transfusion Past Psychological History: Anxiety, Depression Smoking Status: Current every day smoker - Past Family History Sister(s) Family Medical History: Cancer Additional Family Medical History / Comment(s): ovarian Mother Family Medical History: Cancer Additional Family Medical History / Comment(s): breast cancer Father Family Medical History: COPD, CVA/TIA, Myocardial Infarction ([place]) Additional Family Medical History / Comment(s): HEART PROBLEMS, AT AGE 64 Medications and Allergies Home Medications Medication Instructions Recorded Confirmed Type Levothyroxine Sodium [Synthroid] 50 mcg PO DAILY 01/05/14 03/22/24 History Pantoprazole Sodium [Protonix] 40 mg PO DAILY 05/28/18 03/22/24 History Cyclobenzaprine [Flexeril] 10 mg PO BID PRN 10/29/20 03/22/24 History Ofatumumab [Kesimpta Pen] 20 mg SQ Q30D 02/12/22 03/22/24 History Albuterol Sulfate [Albuterol 2 puff INHALATION RT-Q6H PRN 02/19/23 03/22/24 History Sulfate Hfa] Gabapentin [Neurontin] 400 mg PO TID PRN 02/19/23 03/22/24 History Pravastatin Sodium [Pravachol] 40 mg PO DAILY@1700 08/21/23 03/22/24 History LORazepam [Ativan] 0.5 mg PO BID PRN 01/18/24 03/22/24 History Nicotine 21Mg/24Hr Patch [Habitrol] 1 patch TRANSDERM DAILY PRN 01/18/24 03/22/24 History oxyCODONE-APAP 10-325MG [Percocet 1 tab PO Q6HR PRN 01/18/24 03/22/24 History 10-325 mg] Aspirin 325 mg PO DAILY #30 tab 02/14/24 03/22/24 Rx Metoprolol Tartrate [Lopressor] 100 mg PO BID #60 tab 02/14/24 03/22/24 Rx Fluticasone/Umeclidin/Vilanter 1 puff INHALATION RT-DAILY 03/22/24 03/22/24 History [Laina Ellipta 100-62.5-25] Losartan [Cozaar] 25 mg PO DAILY 03/22/24 03/22/24 History valACYclovir HCL [Valacyclovir] 2,000 mg PO DAILY PRN 03/22/24 03/22/24 History Allergies Allergy/AdvReac Type Severity Reaction Status Date / Time bee venom protein (honey bee) Allergy SWELLING , Verified 03/22/24 10:33 AND ITCHING Bleach (Sodium Hypochlorite) Allergy Rash/Hives Verified 03/22/24 10:33 nitrofurantoin Allergy Rash/Hives Verified 03/22/24 10:33 [From Macrobid] nitrofurantoin Allergy Rash/Hives Verified 03/22/24 10:33 macrocrystalline [From Macrobid] moxifloxacin [From Avelox] AdvReac Nausea & Verified 03/22/24 10:33 Vomiting NSAIDS (Non-Steroidal AdvReac Had Verified 03/22/24 10:33 Anti-Inflamma gastric sleeve surgery, causes bleeds. seasonal allergies Allergy congestion Uncoded 03/22/24 10:33 and sneezing Physical Exam Vitals: Vital Signs Temp Pulse Resp BP Pulse Ox 03/22/24 11:50 98.6 F 99 18 111/73 97 03/22/24 10:29 10.2 F L 112 H 20 110/72 98 03/22/24 08:54 106 H 18 149/85 97 03/22/24 08:52 106 H 03/22/24 08:41 100 03/22/24 07:53 100.7 F H 103 H 20 152/87 98 03/22/24 07:32 98.1 F 115 H 16 159/84 92 L Intake and Output 03/21/24 03/22/24 03/22/24 22:59 06:59 14:59 Other: Weight 50.802 kg - Constitutional General appearance: no acute distress - EENT Eyes: anicteric sclerae, EOMI ENT: hearing grossly normal - Respiratory breathing is even and unlabored - Cardiovascular skin warm and dry - Integumentary Integumentary: no cyanotic, no jaundiced - Neurologic Neurologic: CNII-XII intact - Musculoskeletal Musculoskeletal: strength equal bilaterally - Psychiatric Psychiatric: A&O x's 3 Results CBC & Chem 7: 03/22/24 08:10 03/22/24 08:10 Labs: Abnormal Lab Results - Last 24 Hours (Table) 03/22/24 03/22/24 Range/Units 08:10 08:10 WBC 27.3 H (3.8-10.6) k/uL MCV 100.2 H (80.0-100.0) fL Plt Count 669 H (150-450) k/uL Neutrophils # 22.0 H (1.3-7.7) k/uL Eosinophils # 1.5 H (0-0.7) k/uL AST 57 H (14-36) U/L Alkaline Phosphatase 157 H (38-126) U/L Total Protein 8.4 H (6.3-8.2) g/dL Chest x-ray: report reviewed Assessment and Plan (1) COPD exacerbation Current Visit: Yes Status: Acute Priority: High Code(s): J44.1 - CHRONIC OBSTRUCTIVE PULMONARY DISEASE W (ACUTE) EXACERBATION SNOMED Code(s): 602517757 (2) Squamous cell carcinoma of lung, stage I Current Visit: No Status: Acute Priority: Medium Code(s): C34.90 - MALIGNANT NEOPLASM OF UNSP PART OF UNSP BRONCHUS OR LUNG SNOMED Code(s): 215338750 Plan: COPD exacerbation/possible CAP: Presented to the emergency room with complaints of bodyaches, headache, shortness of breath and cough over the last 4-5 days. Patient reports she had a sick contact with her grandchild. -On admit chest x-ray showed ongoing bilateral interstitial opacities, interstitial pulmonary edema versus atypical pneumonia. Right apical pneumothorax likely still present but now opacified with pleural fluid. Measuring 2.8 cm versus 3.8 cm previously. -Tmax 100.7. Viral panel negative. Blood culture and sputum culture pending. -Patient has been started on azithromycin and Rocephin. -Defer management to pulmonology and admitting teams Leukocytosis and thrombocytosis: -Has had extensive workup in the past for her cytosis that has been unremarkable -Likely due to prior splenectomy, and reactive to acute condition, which has been seen previously. Expect counts to return to baseline as she acutely recovers -Continue daily aspirin -Monitor CBC -No further workup at this time. Continue routine f/u with Dr. Vasquez. Clinic f/u scheduled on 03/27 Stage Ia lung cancer: She underwent lobectomy on 01/27/2024, final pathology showing invasive squamous cell carcinoma, 2.7 cm, grade 2 with 0/6 lymph nodes. As for her stage Ia lung cancer, no further adjuvant therapy is required, recommend routine surveillance
[2024-03-22] MEDS: METOPROLOL TARTRATE 50 MG TAB PO SCH (20:05)
[2024-03-22] MEDS: SYMBICORT 80-4.5 MCG INHALER INHALATION SCH (20:18)
[2024-03-23] MEDS: LORazepam 0.5 MG TAB PO PRN (03:30)
[2024-03-23] MEDS: LEVOTHYROXINE 50 MCG TAB PO SCH (06:00)
[2024-03-23] MEDS: LOSARTAN 25 MG TAB PO SCH (08:35)
[2024-03-23] MEDS: AZITHROMYCIN 500 MG TAB PO SCH (08:35)
[2024-03-23] MEDS: PANTOPRAZOLE 40 MG TABLET PO SCH (08:36)
[2024-03-23] MEDS: ASPIRIN 325 MG TAB PO SCH (08:36)
[2024-03-23] MEDS: ACETAMINOPHEN TAB 325 MG TAB PO PRN (12:51)
--- NOTE | 2024-03-23 15:00 | XR ---
EXAMINATION TYPE: XR chest 2V DATE OF EXAM: 03/23/2024 12:14 PM COMPARISON: 03/22/2024 CLINICAL INDICATION: Female, 48 years old with history of pneumonia, , TECHNIQUE: Frontal and lateral views FINDINGS: Heart normal size. Redemonstrated diffuse interstitial opacities with slight worsening. Interval deve lopment of airspace opacity at the left base. Air-fluid level redemonstrated at the right apex, possi ble underlying 1.5 cm apical pneumothorax versus 2.8 cm, previously. IMPRESSION: 1. Diffuse interstitial infiltrates versus interstitial edema persist with slight worsening. 2. Interval development of airspace disease at the left base. 3. Air-fluid level redemonstrated at the right apex, possible underlying 1.5 cm apical pneumothorax v ersus 2.8 cm, previously. [facility], , 03/23/2024 2:58 PM
--- NOTE | 2024-03-23 15:29 | P.PN ---
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 She was also diagnosed with squamous cell carcinoma of the right upper lobe mass measuring 2.7 cm diagnosed in November. On January 26, 2024 she had undergone a robotic assisted thoracoscopic right upper lobectomy. 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 Lymph nodes were negative. She did have a continuous air leak for several days following the procedure. She also developed COVID-19 infection and had a prolonged length of stay. She was subsequently discharged home on 02/14/2024. She presented here early this morning to the emergency room with complaints of increasing shortness of breath, headache, cough congestion and aching all over. Chest x-ray reveals ongoing bilateral interstitial opacities possible interstitial pulmonary edema versus atypical pneumonia. Right apical pneumothorax remains but now opacified with pleural fluid. Measuring approximately 2.8 cm. White count 27.3. Hemoglobin 14.1. Platelets 669. Sodium 140. Potassium 3.8. Bicarb 24. BUN 11. Creatinine 0.63. Glucose 90. proBNP 1080. Viral screen negative. She is seen today in the emergency department. She is currently sitting up in a stretcher. Awake and alert in no acute distress. She has a loose congested cough. Maintaining O2 saturations in the mid to upper 90s on 3 L/min per nasal cannula. She is afebrile. Hemodynamically stable. She did have a Tmax on arrival of 100.7. She has been initiated on DuoNeb and elations, Symbicort, Solu-Medrol. Antibiotics in the form of ceftriaxone and azithromycin. She does have ongoing chronic tobacco dependence. NicoDerm patch in place. The patient is seen today March 23, 2024 in follow-up on the regular medical floor. She is currently awake and alert in no acute distress. Feeling a bit better today compared to yesterday. Maintaining good O2 saturations up in the 90s on 3 L/min per nasal cannula. Afebrile. Hemodynamically stable. Blood and sputum cultures pending. She remains on DuoNeb inhalations, Symbicort, Solu- Medrol. Antibiotics in the form of ceftriaxone and azithromycin. Procalcitonin pending. Remains on Solu-Medrol. NicoDerm patch in place. Objective - Vital Signs Vital signs: Vital Signs Temp 98.3 F 03/23/24 13:01 Pulse 88 03/23/24 15:22 Resp 17 03/23/24 13:01 BP 117/70 03/23/24 13:01 Pulse Ox 99 03/23/24 13:01 FiO2 Intake & Output 03/22/24 03/23/24 03/23/24 18:59 06:59 18:59 Intake Total 1080 240 240 Balance 1080 240 240 Weight 50.802 kg Intake: Oral 1080 240 240 Other: Voiding Method Toilet Toilet Toilet # Voids 2 - Exam GENERAL EXAM: Alert, 48-year-old female, sitting up in bed, on 3 L nasal cannula, comfortable in no apparent distress. HEAD: Normocephalic. EYES: Normal reaction of pupils, equal size. NOSE: Clear with pink turbinates. THROAT: No erythema or exudates. NECK: No masses, no JVD. CHEST: No chest wall deformity. LUNGS: Equal air entry with bilateral scattered rhonchi. CVS: S1 and S2 normal with no audible murmur, regular rhythm. ABDOMEN: No hepatosplenomegaly, normal bowel sounds, no guarding or rigidity. SPINE: No scoliosis or deformity SKIN: No rashes CENTRAL NERVOUS SYSTEM: No focal deficits, tone is normal in all 4 extremities. EXTREMITIES: There is no peripheral edema. No clubbing, no cyanosis. Peripheral pulses are intact. - Labs CBC & Chem 7: 03/22/24 08:10 03/22/24 08:10 Labs: Microbiology - Last 24 Hours (Table) 03/22/24 08:12 Blood Culture - Preliminary Blood 03/22/24 13:14 Gram Stain - Preliminary Sputum Assessment and Plan Assessment: Acute on chronic hypoxemic respiratory failure secondary to an acute exacerbation of chronic obstructive pulmonary disease and possible underlying community acquired pneumonia. Procalcitonin pending 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 Status post right upper lobectomy on January 26, 2024 with prolonged hospitalization through February 14, 2024 Talc pleurodesis, February 11, 2024, for persistent right sided pneumothorax. Today's chest x-ray reveals right apical pneumothorax still present but opacified with pleural fluid. Measuring approximately 2.8 cm versus 3.8 cm previously COVID-19 infection while hospitalized in January 2024 Chronic hypoxic respiratory failure secondary to heart COPD. FEV1 value 66% Chronic and ongoing tobacco dependence Respiratory bronchiolitis associated ILD (smoking-related interstitial lung disease) Hypertension Hypothyroidism Obstructive sleep apnea Sleeve gastrectomy Splenectomy in 2017 History of anxiety/depression Plan: The patient was seen and evaluated Medications reviewed Continue bronchodilators, steroids Continue antibiotics for now Procalcitonin pending NicoDerm patch in place We will continue to follow I have personally seen and examined the patient, performed the documentation and the assessment and plan as written. Number of minutes spent on the visit: 10 Dictation was produced using [employer] dictation software. Please excuse any grammatical, word or spelling errors.
--- NOTE | 2024-03-24 00:40 | HP ---
HISTORY AND PHYSICAL CHIEF COMPLAINT: Cough, shortness of breath, and fever. HISTORY OF PRESENT ILLNESS: This is another recent admission for this 48-year-old female. She has a long-standing history of multiple problems including MS, recent right upper lobectomy for squamous cell carcinoma, followed by pneumothorax. She also has had a splenectomy in the past. She presented to the emergency room with fever and chills, cough and congestion, where she was found to have several abnormal laboratory studies. Her chest x-ray revealed a small persistent pneumothorax despite having undergone pleurodesis with talc recently. Her white count was 27,300 with a hemoglobin of 14 and platelets of 669,000. AST was 57 and ALT was low at 12. Alkaline phosphatase was elevated at 157. She denied hemoptysis, sputum production, abdominal pain, nausea, vomiting, urinary complaints, etc. Past medical history, family history and personal and social histories are otherwise unremarkable. She is allergic to tetracyclines and cephalosporins. MEDICATIONS: She has been on, 1. Sertraline. 2. Pantoprazole. 3. Lorazepam. 4. Qulipta. 5. Oxycodone. 6. Levothyroxine. 7. Pepcid. 8. Risedronate. 9. Gabapentin. 10.Kesimpta. 11.Pravastatin. Remainder of her history is unremarkable. PHYSICAL EXAMINATION: VITAL SIGNS: Normal except for temperature of 100.1. EYES, NOSE, MOUTH, AND THROAT: Normal. CHEST: Demonstrated scattered rales, rhonchi, and expiratory wheezing. CARDIAC: Reveals a sinus tachycardia. ABDOMEN: Soft, nontender. EXTREMITIES: Normal. ASSESSMENT: She is admitted to the hospital with diagnoses of: 1. Bronchitis. 2. Rule out pneumonitis. 3. Chronic obstructive pulmonary disease. 4. Sinus tachycardia. 5. Low pulse ox at 92%, white count 27,000, platelets 669,000. 6. Increase alkaline phosphatase and AST. 7. Multiple sclerosis. 8. Status post gastric stapling. 9. Status post splenectomy. 10.Status post recent right upper lobectomy for squamous cell carcinoma. 11.Persistent right pneumothorax. PLAN: 1. Bed rest. 2. IV fluids. 3. Nasal O2. 4. Updrafts. 5. IV antibiotics. 6. Consult with Pulmonology and Hematology. MMODL / IJN: [id number] /
--- NOTE | 2024-03-24 02:55 | PN ---
PROGRESS NOTE DATE OF SERVICE: 03/23/2024 CHIEF COMPLAINT: 1. Bronchitis and pneumonitis. 2. Multiple sclerosis. 3. Recent right upper lobe resection for squamous cell carcinoma of the lung. 4. Persistent, small right pneumothorax. 5. History of splenectomy. PLAN: Continue with IV fluids, antibiotics, and updrafts and continue to watch her white blood cell count. MMODL / IJN: [id number] /
--- NOTE | 2024-03-24 13:55 | P.PN ---
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 She was also diagnosed with squamous cell carcinoma of the right upper lobe mass measuring 2.7 cm diagnosed in November. On January 26, 2024 she had undergone a robotic assisted thoracoscopic right upper lobectomy. 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 Lymph nodes were negative. She did have a continuous air leak for several days following the procedure. She also developed COVID-19 infection and had a prolonged length of stay. She was subsequently discharged home on 02/14/2024. She presented here early this morning to the emergency room with complaints of increasing shortness of breath, headache, cough congestion and aching all over. Chest x-ray reveals ongoing bilateral interstitial opacities possible interstitial pulmonary edema versus atypical pneumonia. Right apical pneumothorax remains but now opacified with pleural fluid. Measuring approximately 2.8 cm. White count 27.3. Hemoglobin 14.1. Platelets 669. Sodium 140. Potassium 3.8. Bicarb 24. BUN 11. Creatinine 0.63. Glucose 90. proBNP 1080. Viral screen negative. She is seen today in the emergency department. She is currently sitting up in a stretcher. Awake and alert in no acute distress. She has a loose congested cough. Maintaining O2 saturations in the mid to upper 90s on 3 L/min per nasal cannula. She is afebrile. Hemodynamically stable. She did have a Tmax on arrival of 100.7. She has been initiated on DuoNeb and elations, Symbicort, Solu-Medrol. Antibiotics in the form of ceftriaxone and azithromycin. She does have ongoing chronic tobacco dependence. NicoDerm patch in place. The patient is seen today March 23, 2024 in follow-up on the regular medical floor. She is currently awake and alert in no acute distress. Feeling a bit better today compared to yesterday. Maintaining good O2 saturations up in the 90s on 3 L/min per nasal cannula. Afebrile. Hemodynamically stable. Blood and sputum cultures pending. She remains on DuoNeb inhalations, Symbicort, Solu- Medrol. Antibiotics in the form of ceftriaxone and azithromycin. Procalcitonin pending. Remains on Solu-Medrol. NicoDerm patch in place. The patient is seen today March 24, 2024 in follow-up on the regular medical floor. She is sitting up in bed having breakfast. Awake and alert in no acute distress. Maintaining good O2 saturations in the 90s on 3 L/min per nasal cannula. Sputum culture positive for Klebsiella oxytoca. Remains on ceftriaxone. Completed azithromycin. Blood culture revealed no growth. Procalcitonin negative at 0.12. Continue on bronchodilators, steroids. NicoDerm patch in place. Objective - Vital Signs Vital signs: Vital Signs Temp 98.6 F 03/24/24 12:45 Pulse 71 03/24/24 12:45 Resp 16 03/24/24 12:45 BP 108/69 03/24/24 12:45 Pulse Ox 98 03/24/24 12:45 FiO2 Intake & Output 03/23/24 03/24/24 03/24/24 18:59 06:59 18:59 Intake Total 290 118 240 Balance 290 118 240 Intake: Intake, IV Titration 50 Amount cefTRIAXone 1 gm In 50 Sodium Chloride 0.9% 50 ml @ 100 mls/hr IVPB Q24HR [facility] Rx#:[id number] Oral 240 118 240 Other: Voiding Method Toilet Toilet Toilet # Voids 2 - Exam GENERAL EXAM: Alert, 48-year-old female, sitting up in bed having breakfast, on 3 L nasal cannula, in no apparent distress. HEAD: Normocephalic. EYES: Normal reaction of pupils, equal size. NOSE: Clear with pink turbinates. THROAT: No erythema or exudates. NECK: No masses, no JVD. CHEST: No chest wall deformity. LUNGS: Equal air entry with bilateral scattered rhonchi. CVS: S1 and S2 normal with no audible murmur, regular rhythm. ABDOMEN: No hepatosplenomegaly, normal bowel sounds, no guarding or rigidity. SPINE: No scoliosis or deformity SKIN: No rashes CENTRAL NERVOUS SYSTEM: No focal deficits, tone is normal in all 4 extremities. EXTREMITIES: There is no peripheral edema. No clubbing, no cyanosis. Peripheral pulses are intact. - Labs CBC & Chem 7: 03/22/24 08:10 03/22/24 08:10 Labs: Microbiology - Last 24 Hours (Table) 03/22/24 08:12 Blood Culture - Preliminary Blood 03/22/24 13:14 Gram Stain - Final Sputum Sputum Culture - Final Klebsiella oxytoca Assessment and Plan Assessment: Acute on chronic hypoxemic respiratory failure secondary to an acute exacerbation of chronic obstructive pulmonary disease. Procalcitonin negative. Sputum culture positive for Klebsiella oxytoca. Suspect colonized 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 Status post right upper lobectomy on January 26, 2024 with prolonged hospitalization through February 14, 2024 Talc pleurodesis, February 11, 2024, for persistent right sided pneumothorax. Today's chest x-ray reveals right apical pneumothorax still present but opacified with pleural fluid. Measuring approximately 2.8 cm versus 3.8 cm previously COVID-19 infection while hospitalized in January 2024 Chronic hypoxic respiratory failure secondary to heart COPD. FEV1 value 66% Chronic and ongoing tobacco dependence Respiratory bronchiolitis associated ILD (smoking-related interstitial lung disease) Hypertension Hypothyroidism Obstructive sleep apnea Sleeve gastrectomy Splenectomy in 2018 History of anxiety/depression Plan: The patient was seen and evaluated Medications reviewed Continue bronchodilators, steroids NicoDerm patch in place Educated regarding smoking cessation Procalcitonin negative, sputum with Klebsiella Suspect colonization Could be discharged home on Cipro Follow up in our office in 1 week I have personally seen and examined the patient, performed the documentation and the assessment and plan as written. Number of minutes spent on the visit: 10 Dictation was produced using [employer] dictation software. Please excuse any grammatical, word or spelling errors.
--- NOTE | 2024-03-24 19:16 | PN ---
PROGRESS NOTE CHIEF COMPLAINT: Upper respiratory infection and bronchitis. HISTORY OF PRESENT ILLNESS: This lady is doing fairly well. She is still somewhat congested and short of breath. PHYSICAL EXAMINATION: LUNGS: She has extensive rales, rhonchi, and wheezing on both sides of the chest. CARDIAC: Unremarkable. IMPRESSION: Persistent bronchitis. PLAN: Probably home tomorrow. MMODL / IJN: [id number] /
--- NOTE | 2024-03-25 12:34 | P.PN ---
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 She was also diagnosed with squamous cell carcinoma of the right upper lobe mass measuring 2.7 cm diagnosed in November. On January 26, 2024 she had undergone a robotic assisted thoracoscopic right upper lobectomy. 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 Lymph nodes were negative. She did have a continuous air leak for several days following the procedure. She also developed COVID-19 infection and had a prolonged length of stay. She was subsequently discharged home on 02/14/2024. She presented here early this morning to the emergency room with complaints of increasing shortness of breath, headache, cough congestion and aching all over. Chest x-ray reveals ongoing bilateral interstitial opacities possible interstitial pulmonary edema versus atypical pneumonia. Right apical pneumothorax remains but now opacified with pleural fluid. Measuring approximately 2.8 cm. White count 27.3. Hemoglobin 14.1. Platelets 669. Sodium 140. Potassium 3.8. Bicarb 24. BUN 11. Creatinine 0.63. Glucose 90. proBNP 1080. Viral screen negative. She is seen today in the emergency department. She is currently sitting up in a stretcher. Awake and alert in no acute distress. She has a loose congested cough. Maintaining O2 saturations in the mid to upper 90s on 3 L/min per nasal cannula. She is afebrile. Hemodynamically stable. She did have a Tmax on arrival of 100.7. She has been initiated on DuoNeb and elations, Symbicort, Solu-Medrol. Antibiotics in the form of ceftriaxone and azithromycin. She does have ongoing chronic tobacco dependence. NicoDerm patch in place. The patient is seen today March 23, 2024 in follow-up on the regular medical floor. She is currently awake and alert in no acute distress. Feeling a bit better today compared to yesterday. Maintaining good O2 saturations up in the 90s on 3 L/min per nasal cannula. Afebrile. Hemodynamically stable. Blood and sputum cultures pending. She remains on DuoNeb inhalations, Symbicort, Solu- Medrol. Antibiotics in the form of ceftriaxone and azithromycin. Procalcitonin pending. Remains on Solu-Medrol. NicoDerm patch in place. The patient is seen today March 24, 2024 in follow-up on the regular medical floor. She is sitting up in bed having breakfast. Awake and alert in no acute distress. Maintaining good O2 saturations in the 90s on 3 L/min per nasal cannula. Sputum culture positive for Klebsiella oxytoca. Remains on ceftriaxone. Completed azithromycin. Blood culture revealed no growth. Procalcitonin negative at 0.12. Continue on bronchodilators, steroids. NicoDerm patch in place. The patient is seen today March 25, 2024 in follow-up on the regular medical floor. She is awake and alert in no acute distress. Sitting up in bed. Denies any worsening shortness of breath, cough or congestion. She is maintaining good O2 saturation in the 90s on 3 L/min per nasal cannula. She has been afebrile. Hemodynamically stable. Sputum culture positive for Klebsiella oxytoca. She remains on ceftriaxone. Procalcitonin was negative. Objective - Vital Signs Vital signs: Vital Signs Temp 98.3 F 03/25/24 07:36 Pulse 72 03/25/24 11:46 Resp 16 03/25/24 08:00 BP 153/88 03/25/24 07:36 Pulse Ox 95 03/25/24 07:36 FiO2 Intake & Output 03/24/24 03/25/24 03/25/24 18:59 06:59 18:59 Intake Total 600 222 240 Balance 600 222 240 Intake: Oral 600 222 240 Other: Voiding Method Toilet Toilet Toilet # Voids 2 2 - Exam GENERAL EXAM: Alert, pleasant 48-year-old female, sitting up in bed, on 3 L nasal cannula, in no apparent distress. HEAD: Normocephalic. EYES: Normal reaction of pupils, equal size. NOSE: Clear with pink turbinates. THROAT: No erythema or exudates. NECK: No masses, no JVD. CHEST: No chest wall deformity. LUNGS: Equal air entry with bilateral scattered rhonchi. CVS: S1 and S2 normal with no audible murmur, regular rhythm. ABDOMEN: No hepatosplenomegaly, normal bowel sounds, no guarding or rigidity. SPINE: No scoliosis or deformity SKIN: No rashes CENTRAL NERVOUS SYSTEM: No focal deficits, tone is normal in all 4 extremities. EXTREMITIES: There is no peripheral edema. No clubbing, no cyanosis. Peripheral pulses are intact. - Labs CBC & Chem 7: 03/22/24 08:10 03/22/24 08:10 Labs: Microbiology - Last 24 Hours (Table) 03/22/24 08:12 Blood Culture - Preliminary Blood 03/22/24 13:14 Gram Stain - Final Sputum Sputum Culture - Final Klebsiella oxytoca Assessment and Plan Assessment: Acute on chronic hypoxemic respiratory failure secondary to an acute exacerbation of chronic obstructive pulmonary disease. Procalcitonin negative. Sputum culture positive for Klebsiella oxytoca. Suspect colonized 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 Status post right upper lobectomy on January 26, 2024 with prolonged hospitalization through February 14, 2024 Talc pleurodesis, February 11, 2024, for persistent right sided pneumothorax. Today's chest x-ray reveals right apical pneumothorax still present but opacified with pleural fluid. Measuring approximately 2.8 cm versus 3.8 cm previously COVID-19 infection while hospitalized in January 2024 Chronic hypoxic respiratory failure secondary to heart COPD. FEV1 value 66% Chronic and ongoing tobacco dependence Respiratory bronchiolitis associated ILD (smoking-related interstitial lung disease) Hypertension Hypothyroidism Obstructive sleep apnea Sleeve gastrectomy Splenectomy in 2018 History of anxiety/depression Plan: The patient was seen and evaluated Medications reviewed Continue bronchodilators Transitioned to oral steroids NicoDerm patch in place Educated regarding smoking cessation Recommend Cipro at discharge Follow-up in our office in 1 week This patient was seen independently by the pulmonary nurse practitioner kusum haji pulmonary issues I have personally seen and examined the patient, performed the documentation and the assessment and plan as written. Number of minutes spent on the visit: 25 Dictation was produced using [employer] dictation software. Please excuse any grammatical, word or spelling errors.
[2024-03-25 13:58] VITALS: BP 152/84; PULSE 67; RESP 17; TEMP 98
--- NOTE | 2024-03-25 23:58 | DS ---
DISCHARGE SUMMARY CHIEF COMPLAINT: Fever, chills, cough, and congestion. HISTORY OF PRESENT ILLNESS AND PHYSICAL EXAMINATION: Details of this lady's history and physical can be found in the initial workup. LABORATORY STUDIES: While she was in the hospital, she had laboratory studies, details of which can be found in the laboratory section of her chart. COURSE IN THE HOSPITAL: After admission, she was placed on bedrest, started on intravenous fluids, updrafts, and antibiotics. She was seen by Infectious Disease, Pulmonology and Hematology. Chest slowly improved and she did well. White count remained high, but this is chronic for her. She is doing well and was felt she could be discharged on the and she will go home on usual activity, medication, diet along with Levaquin 750 mg once a day. She will be seen in the office in several days. FINAL DIAGNOSES: 1. Bronchopneumonia. 2. Bronchitis. 3. Chronic obstructive pulmonary disease. 4. Recent right upper lobectomy for squamous cell carcinoma of the lung. 5. Right-sided pneumothorax. 6. Status post splenectomy. 7. Leukocytosis. 8. Multiple sclerosis. OPERATIONS: None. CONSULTATIONS: Hematology, Infectious Disease, and Pulmonology. MMODL / IJN: [id number] /
[2024-03-26] MEDS ORDERED: LEVOFLOXACIN 750 MG TAB PO SCH (09:00)
== END 2024-03-25 15:17 | disposition home or self-care (01) | DRG 189 ==
LOC: EC 07:30 → 4SSUR 10:20 → 5NMEDONC 14:48
PROVIDERS: ADMIT Family Medicine; ATTEND Family Medicine
DX: J96.21 Acute and chronic respiratory failure with hypoxia (principal); J21.8 Acute bronchiolitis due to other specified organisms; J44.0 Chronic obstructive pulmonary disease with (acute) lower respiratory infection; J44.1 Chronic obstructive pulmonary disease with (acute) exacerbation; J93.82 Other air leak; J84.9 Interstitial pulmonary disease, unspecified; Z20.822 Contact with and (suspected) exposure to COVID-19; I10 Essential (primary) hypertension; R00.0 Tachycardia, unspecified; G47.33 Obstructive sleep apnea (adult) (pediatric); G43.909 Migraine, unspecified, not intractable, without status migrainosus; G35 Multiple sclerosis; D75.839 Thrombocytosis, unspecified; E03.9 Hypothyroidism, unspecified; Z79.51 Long term (current) use of inhaled steroids; Z79.82 Long term (current) use of aspirin; Z79.890 Hormone replacement therapy; Z79.899 Other long term (current) drug therapy; Z82.49 Family history of ischemic heart disease and other diseases of the circulatory system; Z85.118 Personal history of other malignant neoplasm of bronchus and lung; Z85.6 Personal history of leukemia; Z86.16 Personal history of COVID-19; Z86.73 Personal history of transient ischemic attack (TIA), and cerebral infarction without residual deficits; Z87.01 Personal history of pneumonia (recurrent); Z88.1 Allergy status to other antibiotic agents; Z90.2 Acquired absence of lung [part of]; Z90.81 Acquired absence of spleen; Z82.5 Family history of asthma and other chronic lower respiratory diseases; Z91.030 Bee allergy status; Z91.048 Other nonmedicinal substance allergy status; Z90.710 Acquired absence of both cervix and uterus; Z86.19 Personal history of other infectious and parasitic diseases
CPT/HCPCS: 36415; 71046; 80053; 83605; 83735; 83880; 84145; 85025; 85610; 85730; 87040; 87070; 87077; 87186; 87205; 87449; 87636; 93005; 94640; 94760; 96365; 96375; 96376; 99291

== ENCOUNTER 2024-04-24 00:29 | Emergency (ER) | payer BC, MEDICARE, OTHER ==
[2024-04-24 00:36] VITALS: TEMP 97.9
--- NOTE | 2024-04-24 00:50 | ED ---
General Adult HPI - General Chief complaint: Headache Stated complaint: headache nerve pain Time Seen by Provider: 04/24/24 00:49 Source: patient, RN notes reviewed Mode of arrival: ambulatory Limitations: no limitations - History of Present Illness Initial comments: This is a 48-year-old female with a history of MS on monthy immunotherapy injections, stage II lung cancer not currently under treatment, leukemia, and migraines presenting to the emergency department for complaint of migraine and nerve pain over the past 3 days. Patient states that she has a history of migraines however been having a difficult time controlling symptoms at home with prescribed gabapentin and Percocet. Additionally, states that she is having paresthesias of her distal fingers and toes. She states that she has been experiencing bodyaches, fatigue, cough, sore throat and congestion over the past few days as well. She denies chest pain, abdominal pain, nausea or vomiting. - Related Data Home Medications Medication Instructions Recorded Confirmed Levothyroxine Sodium [Synthroid] 50 mcg PO DAILY 01/05/14 03/22/24 Pantoprazole Sodium [Protonix] 40 mg PO DAILY 05/28/18 03/22/24 Cyclobenzaprine [Flexeril] 10 mg PO BID PRN 10/29/20 03/22/24 Ofatumumab [Kesimpta Pen] 20 mg SQ Q30D 02/12/22 03/22/24 Albuterol Sulfate [Albuterol 2 puff INHALATION RT-Q6H PRN 02/19/23 03/22/24 Sulfate Hfa] Gabapentin [Neurontin] 400 mg PO TID PRN 02/19/23 03/22/24 Pravastatin Sodium [Pravachol] 40 mg PO DAILY@1700 08/21/23 03/22/24 LORazepam [Ativan] 0.5 mg PO BID PRN 01/18/24 03/22/24 Nicotine 21Mg/24Hr Patch [Habitrol] 1 patch TRANSDERM DAILY PRN 01/18/24 03/22/24 oxyCODONE-APAP 10-325MG [Percocet 1 tab PO Q6HR PRN 01/18/24 03/22/24 10-325 mg] Fluticasone/Umeclidin/Vilanter 1 puff INHALATION RT-DAILY 03/22/24 03/22/24 [Trelegy Ellipta 100-62.5-25] Losartan [Cozaar] 25 mg PO DAILY 03/22/24 03/22/24 valACYclovir HCL [Valacyclovir] 2,000 mg PO DAILY PRN 03/22/24 03/22/24 Previous Rx's Medication Instructions Recorded Aspirin 325 mg PO DAILY #30 tab 02/14/24 Metoprolol Tartrate [Lopressor] 100 mg PO BID #60 tab 02/14/24 Levofloxacin [Levaquin] 750 mg PO DAILY #10 tab 03/25/24 Allergies Allergy/AdvReac Type Severity Reaction Status Date / Time bee venom protein (honey bee) Allergy SWELLING , Verified 04/24/24 00:32 AND ITCHING Bleach (Sodium Hypochlorite) Allergy Rash/Hives Verified 04/24/24 00:32 nitrofurantoin Allergy Rash/Hives Verified 04/24/24 00:32 [From Macrobid] nitrofurantoin Allergy Rash/Hives Verified 04/24/24 00:32 macrocrystalline [From Macrobid] moxifloxacin [From Avelox] AdvReac Nausea & Verified 04/24/24 00:32 Vomiting NSAIDS (Non-Steroidal AdvReac Had Verified 04/24/24 00:32 Anti-Inflamma gastric sleeve surgery, causes bleeds. seasonal allergies Allergy congestion Uncoded 04/24/24 00:32 and sneezing Review of Systems ROS Statement: Those systems with pertinent positive or pertinent negative responses have been documented in the HPI. ROS Other: All systems not noted in ROS Statement are negative. Past Medical History Past Medical History: Asthma, Cancer, COPD, CVA/TIA, GERD/Reflux, Hypertension, Musculoskeletal Disorder, Neurologic Disorder, Sleep Apnea/CPAP/BIPAP, Thyroid Disorder Additional Past Medical History / Comment(s): smoking-related interstitial lung disease, doesn't use CPAP, history of seizure at the age of 16 related to med. to stop breast milk, endometriosis, chronic back pain, plantar fasciitis, hx. of Achilles tendinitis, probably antibiotic induced. She also has history of hypothyroidism, ALLERGIC rhinitis, migraines, uses oxygen 2L prn, recent iron infusion, MS , tia 2020 no residual issues, tinnitus, balance issues, Migraine. Dx. w/ leukemia, 10/2023, Diagnosed with lung cancer 2023 History of Any Multi-Drug Resistant Organisms: None Reported Past Surgical History: Bariatric Surgery, Cholecystectomy, Hysterectomy, Tubal Ligation, Uterine Ablation Additional Past Surgical History / Comment(s): LEEP PROCEDURE X 2 r/t cervical dysplasia, EGD, BACK INJECTIONS FOR PAIN. The patient has also undergone thoracic/thoracoscopic wedge biopsy of the right lung. 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; R and Y bypass at [facility] 2019, TRACHEOSTOMY-RESOLVED Past Anesthesia/Blood Transfusion Reactions: Motion Sickness Additional Past Anesthesia/Blood Transfusion Reaction / Comment(s): no problem w/blood transfusion Past Psychological History: Anxiety, Depression Smoking Status: Current every day smoker, Former smoker Past Alcohol Use History: None Reported Past Drug Use History: None Reported - Past Family History Sister(s) Family Medical History: Cancer Additional Family Medical History / Comment(s): ovarian Mother Additional Family Medical History / Comment(s): breast cancer Father Family Medical History: COPD, CVA/TIA, Myocardial Infarction (AR) Additional Family Medical History / Comment(s): HEART PROBLEMS, AT AGE 64 General Exam Limitations: no limitations Eye exam: Present: normal appearance, PERRL, EOMI. Absent: scleral icterus, conjunctival injection, periorbital swelling Neck exam: Present: normal inspection. Absent: tenderness, meningismus, lymphadenopathy Respiratory exam: Present: normal lung sounds bilaterally. Absent: respiratory distress, wheezes, rales, rhonchi, stridor Cardiovascular Exam: Present: regular rate, normal rhythm, normal heart sounds. Absent: systolic murmur, diastolic murmur, rubs, gallop, clicks GI/Abdominal exam: Present: soft, normal bowel sounds. Absent: distended, tenderness, guarding, rebound, rigid Extremities exam: Present: normal inspection, full ROM, normal capillary refill. Absent: tenderness, pedal edema, joint swelling, calf tenderness Neurological exam: Present: alert, oriented X3, CN II-XII intact Course Vital Signs 04/24/24 00:32 Temperature 97.9 F Pulse Rate 79 Respiratory 18 Rate Blood Pressure 134/77 O2 Sat by Pulse 99 Oximetry Medical Decision Making - Medical Decision Making Was pt. sent in by a medical professional or institution (, PA, SOCIAL WORK ASSOCIATE, urgent care, hospital, or custodial...) When possible be specific @ -No Did you speak to anyone other than the patient for history (EMS, parent, family, police, friend...)? What history was obtained from this source @ -No Did you review nursing and triage notes (agree or disagree)? Why? @ -I reviewed and agree with nursing and triage notes Were old charts reviewed (outside hosp., previous admission, EMS record, old EKG, old radiological studies, urgent care reports/EKG's, custodial records)? Report findings @ -No old charts were reviewed Differential Diagnosis (chest pain, altered mental status, abdominal pain women, abdominal pain men, vaginal bleeding, weakness, fever, dyspnea, syncope, headache, dizziness, GI bleed, back pain, seizure, CVA, palpatations, mental health, musculoskeletal)? @ -Differential Headache: Migraine, tension, cluster, carbon monoxide, central venous thrombosis, pension karma temporal arteritis, acute closure glaucoma, intercranial hemorrhage, mastoiditis, sinusitis, head injury, this is not meant to be an all-inclusive list. EKG interpreted by me (3pts min.). @ -As above X-rays interpreted by me (1pt min.). @ -None done CT interpreted by me (1pt min.). @ -None done U/S interpreted by me (1pt. min.). @ -None done What testing was considered but not performed or refused? (CT, X-rays, U/S, labs)? Why? @ -None What meds were considered but not given or refused? Why? @ -None Did you discuss the management of the patient with other professionals (professionals i.e. , PA, SOCIAL WORK ASSOCIATE, lab, RT, psych nurse, older adult social work specialist, image archivist, teacher, sales and service officer, case checker)? Give summary @ -No Was smoking cessation discussed for >3mins.? @ -No Was critical care preformed (if so, how long)? @ -No Were there social determinants of health that impacted care today? How? (Homelessness, low income, unemployed, alcoholism, drug addiction, transportation, low edu. Level, literacy, decrease access to med. care, [place] [facility], rehab)? @ -No Was there de-escalation of care discussed even if they declined (Discuss DNR or withdrawal of care, Hospice)? DNR status @ -No What co-morbidities impacted this encounter? (DM, HTN, Smoking, COPD, CAD, Cancer, CVA, ARF, Chemo, Hep., AIDS, mental health diagnosis, sleep apnea, morbid obesity)? @ -None Was patient admitted / discharged? Hospital course, mention meds given and route, prescriptions, significant lab abnormalities, going to OR and other pertinent info. @ -Discharge. 48-year-old female presenting with chronic migraines, body aches, cough and congestion. On my evaluation she has no acute of signs acute distress. Her vitals are stable. Neurological examination with no acute deficits. Patient states that migraine symptoms she is experiencing currently are similar as she has had in the past and denies new or worsening symptoms. She will be provided with migraine cocktail in addition to being tested for viruses. Patient viral swab was negative. On reevaluation after medication ministration patient states that symptoms have improved. Patient has close follow-up with neurology scheduled for this week. discussed with Dr. Dickerson Undiagnosed new problem with uncertain prognosis? @ -No Drug Therapy requiring intensive monitoring for toxicity (Heparin, Nitro, Insulin, Cardizem)? @ -No Were any procedures done? @ -No Diagnosis/symptom? @ -migraine headache, neuropathic pain secondary to MS Acute, or Chronic, or Acute on Chronic? @ -acute Uncomplicated (without systemic symptoms) or Complicated (systemic symptoms)? @ -uncomplicated Side effects of treatment? @ -No Exacerbation, Progression, or Severe Exacerbation? @ -No Poses a threat to life or bodily function? How? (Chest pain, USA, AR, pneumonia, PE, COPD, DKA, ARF, appy, cholecystitis, CVA, Diverticulitis, Homicidal, Suicidal, threat to staff... and all critical care pts) @ -No - Lab Data Lab Results 04/24/24 Range/Units 01:25 Influenza Type A (PCR) Not Detected (Not Detectd) Influenza Type B (PCR) Not Detected (Not Detectd) RSV (PCR) Not Detected (Not Detectd) SARS-CoV-2 (PCR) Not Detected (Not Detectd) Disposition Clinical Impression: Migraine headache Disposition: HOME SELF-CARE Condition: Good Instructions (If sedation given, give patient instructions): Migraine Headache (ED) Additional Instructions: Please return to the Emergency Department if symptoms worsen or any other concerns. Is patient prescribed a controlled substance at d/c from ED?: No Referrals: Keven Kebede MD [Primary Care Provider] - 1-2 days Time of Disposition: 02:41
[2024-04-24] MEDS: DEXAMETHASONE SOD PHOSPHATE 10 MG/ML 1 ML VIAL IVP STA (01:17)
[2024-04-24] MEDS: MORPHINE SULFATE 4 MG/ML SYRINGE IVP STA (01:17)
[2024-04-24] MEDS: SODIUM CHLORIDE 0.9% 1,000 ML IV STA (01:23)
[2024-04-24] MEDS: diphenhydrAMINE 50 MG/ML 1 ML VIAL IVP STA (02:16)
[2024-04-24] MEDS: ONDANSETRON 4 MG/2 ML VIAL IVP STA (02:16)
[2024-04-24] MEDS: HYDROmorphone 1 MG/ML 1 ML SYRINGE IVP STA (02:17)
[2024-04-25 02:50] VITALS: BP 134/88; PULSE 91; RESP 16
== END 2024-04-24 03:08 ==
LOC: EC 00:29
DX: G43.909 Migraine, unspecified, not intractable, without status migrainosus (principal); F17.200 Nicotine dependence, unspecified, uncomplicated; Z88.1 Allergy status to other antibiotic agents; Z88.6 Allergy status to analgesic agent; Z91.030 Bee allergy status; Z91.09 Other allergy status, other than to drugs and biological substances; Z88.8 Allergy status to other drugs, medicaments and biological substances; Z86.73 Personal history of transient ischemic attack (TIA), and cerebral infarction without residual deficits
CPT/HCPCS: 87636; 99284; 96374; 96375 ×4; 96361; J2270; J1200; J1100; J2405; J1171

== ENCOUNTER → 2024-05-09 | Outpatient (CLI) | payer BC, MEDICARE ==
--- NOTE | 2024-05-09 15:29 | MM ---
Reason for Exam: Screening (asymptomatic). Last screening mammogram was performed 12 month(s) ago. Patient History: Menarche at age 11. First Full-Term at age 14. Left ovary removed at age 47. Right ovary removed at age 47. Hysterectomy at age 47. Postmenopausal. Paternal aunt had breast cancer, age 55. Maternal cousin had breast cancer, age 45. Mother had breast cancer, age 69. Risk Values: Cassie 5 year model risk: 1.9%. NCI Lifetime model risk: 15.8%. Prior Study Comparison: 09/22/2021 Bilateral MG screening mammo w CAD, [facility]. 09/29/2021 Right MG 3D work up w/cad RT, [facility]. 05/03/2023 Bilateral MG 3D screening mammo w/cad, [facility]. Tissue Density: The breasts are heterogeneously dense, which may obscure small masses. Findings: Analyzed By CAD. There is no suspicious group of microcalcifications or new suspicious mass in either breast. Incidental retained metal clip near the right axilla again noted. Overall Assessment: Benign, BI-RAD 2 Management: Screening Mammogram of both breasts in 1 year. Patient should continue monthly self-breast exams. A clinical breast exam by your physician is recommended on an annual basis. This exam should not preclude additional follow-up of suspicious palpable abnormalities. Note on Cassie scores and lifetime risk: 1. A Cassie score greater than 3% is considered moderate risk. If this is the case, consider specialist referral to assess eligibility for a risk reducing agent. 2. If overall lifetime risk for the development of breast cancer is 20% or higher, the patient may qualify for future screening with alternating mammogram and breast MRI. [facility], , 05/09/2024 3:26 PM. Electronically signed and approved by: Agusto Stout M.D. Radiologist
== END | disposition home or self-care (01) ==
LOC: RADMAMWWP 12:51
PROVIDERS: ATTEND Family Medicine
DX: Z12.31 Encounter for screening mammogram for malignant neoplasm of breast (principal); Z90.722 Acquired absence of ovaries, bilateral; Z78.0 Asymptomatic menopausal state; Z80.3 Family history of malignant neoplasm of breast; R92.333 Mammographic heterogeneous density, bilateral breasts
CPT/HCPCS: 77063; 77067

== ENCOUNTER → 2024-05-09 | Outpatient (CLI) | payer BC, MEDICARE ==
--- NOTE | 2024-05-09 16:14 | CT ---
EXAMINATION TYPE: CT ChestAbdPelvis w con DATE OF EXAM: 05/09/2024 3:44 PM COMPARISON: 11/25/2023, 02/05/2024. CLINICAL INDICATION: Female, 49 years old with history of C34.11 LUNG CANCER; [facility], Lung Ca. Technique: CT ChestAbdPelvis w con; Multiple axial images were obtained. Two-dimensional coronal and sagittal reconstructions were obtained. Contrast used:100 mL of Isovue 300 with IV Contrast, (None if empty) Oral contrast used: with Oral Contrast CT DLP: 446 mGycm, Automated exposure control for dose reduction was used. Findings: CHEST: LUNGS/ PLEURA: Reduction in right sided hydropneumothorax seen on prior. Scattered airspace opacities in lung bases and consolidation is improved. There remains interstitial prominence. Trace fluid in t he right lung apex noted. AIRWAY: Patent and unremarkable. HEART: The heart is mildly enlarged for size. Atherosclerosis of the coronary arteries. MEDIASTINUM: Right paratracheal lymph node in the higher position measuring up to 10 mm poorly visual ized on prior to streak artifact may be fractionally larger. VASCULATURE: No aortic aneurysm. MUSCULOSKELETAL: No acute osseous abnormalities. SOFT TISSUES/LYMPH NODES: Unremarkable. LOWER NECK: No significant findings. ABDOMEN: ABDOMEN LIVER: Unremarkable GALLBLADDER AND BILE DUCTS: Gallbladder is surgically absent with mild intrahepatic and extra hepatic biliary dilatation likely physiologic and a postcholecystectomy change. No evidence of choledocholit hiasis. PANCREAS: Unremarkable. SPLEEN: Unremarkable. ADRENAL GLANDS: Unremarkable. KIDNEYS AND URETERS: No evidence of hydronephrosis or renal calculus. The ureters are unremarkable. PELVIS BLADDER: Unremarkable REPRODUCTIVE: The uterus is surgically absent. ABDOMEN & PELVIS STOMACH AND BOWEL: No evidence of bowel obstruction. Postsurgical changes of the bowel. No evidence f or obstruction. PERITONEUM/RETROPERITONEUM: No evidence of pneumoperitoneum or free fluid. VASCULATURE: No evidence of aortic aneurysm. MUSCULOSKELETAL: No acute osseous abnormalities LYMPH NODES: No gross evidence for lymphadenopathy. SOFT TISSUE/ABDOMINAL WALL: Unremarkable IMPRESSION: More conspicuous right high paratracheal lymph node compared to prior there is some streak artifact f rom contrast on prior exam. This has increased in size from 11/25/2023 and thought to be increased from 02/05/2024. Consider repeat pet/CT The exclude progression of disease. No other evidence for lymphad enopathy or enlarging lymph nodes identified. [facility], , 05/09/2024 4:11 PM
== END | disposition home or self-care (01) ==
LOC: RADCTMAIN 13:12
PROVIDERS: ATTEND Internal Medicine Hematology & Oncology
DX: C34.11 Malignant neoplasm of upper lobe, right bronchus or lung (principal); D47.3 Essential (hemorrhagic) thrombocythemia; E61.1 Iron deficiency; M12.9 Arthropathy, unspecified; D72.89 Other specified disorders of white blood cells
CPT/HCPCS: 71260; 74177; Q9967

== ENCOUNTER 2024-05-19 00:08 | Emergency (ER) | payer BC, MEDICARE, OTHER ==
[2024-05-19] MEDS: methylPREDNISolone SOD SUCCI 125 MG/2 ML VIAL IVPB STA (01:34)
[2024-05-19] MEDS: GABAPENTIN 300 MG CAP PO STA (01:40)
[2024-05-19 01:58] LABS: Basophils # (A) 0.1 k/uL (0-0.2); Basophils % (A) 1 %; Eosinophils % (A) 5 %; HCT 39.6 % (34.0-46.0); HGB 12.7 gm/dL (11.4-16.0); Lymphocytes # (A) 3.6 k/uL (1.0-4.8); Lymphocytes % (A) 17 %; MCH 30.8 pg (25.0-35.0); MCV 96.2 fL (80.0-100.0); Mean Platelet Volume 7.7; Monocytes % (A) 5 %; Neutrophils # (A) 15.4 k/uL (1.3-7.7); Neutrophils % (A) 72 %; Platelet Count 704 k/uL (150-450); RBC 4.11 m/uL (3.80-5.40); RDW 13.9 % (11.5-15.5); WBC 21.4 k/uL (3.8-10.6)
[2024-05-19 03:10] VITALS: RESP 16
[2024-05-19 04:00] LABS: ALT 12 U/L (4-34); AST 25 U/L (14-36); African American GFR (CKD) >90 (>60 ml/min/1.73 sqM); Albumin 3.2 g/dL (3.5-5.0); Alkaline Phosphatase 157 U/L (38-126); Anion Gap 8 mmol/L; Blood Urea Nitrogen 14 mg/dL (7-17); Calcium 9.2 mg/dL (8.4-10.2); Carbon Dioxide 24 mmol/L (22-30); Chloride 107 mmol/L (98-107); Glucose 157 mg/dL (74-99); Non-African American GFR(CKD) >90 (>60 ml/min/1.73 sqM); Potassium 3.9 mmol/L (3.5-5.1); Sodium 139 mmol/L (137-145); Total Bilirubin 0.4 mg/dL (0.2-1.3); Total Protein 5.8 g/dL (6.3-8.2)
[2024-05-19 04:05] LABS: C Reactive Protein <0.5 mg/dL (<1.0)
--- NOTE | 2024-05-19 04:11 | ED ---
General Adult HPI - General Chief complaint: Headache Stated complaint: Head&Neck Pain Time Seen by Provider: 05/19/24 00:33 Source: patient Mode of arrival: ambulatory Limitations: no limitations - History of Present Illness Initial comments: This patient is a 49-year-old woman with history of MS who presents to have evaluation for headache, neck pain, leg pain that she states is similar to previous MS flares. The patient states that her home medications do not seem to be helping. Patient has not noted fever or chills. No neck stiffness. No susan rologic symptoms other than what she describes as burning bilateral leg pains. -: days(s) Location: head, neck, lower extremity Quality: burning Consistency: constant Improves with: none Worsens with: none Associated Symptoms: denies other symptoms Treatments Prior to Arrival: none - Related Data Home Medications Medication Instructions Recorded Confirmed Levothyroxine Sodium [Synthroid] 50 mcg PO DAILY 01/05/14 06/02/24 Pantoprazole Sodium [Protonix] 40 mg PO DAILY 05/28/18 06/02/24 Cyclobenzaprine [Flexeril] 10 mg PO BID PRN 10/29/20 06/02/24 Ofatumumab [Kesimpta Pen] 20 mg SQ Q30D 02/12/22 06/02/24 Albuterol Sulfate [Albuterol 2 puff INHALATION RT-Q6H PRN 02/19/23 06/02/24 Sulfate Hfa] Pravastatin Sodium [Pravachol] 40 mg PO DAILY@1700 08/21/23 06/02/24 LORazepam [Ativan] 0.5 mg PO BID PRN 01/18/24 06/02/24 Nicotine 21Mg/24Hr Patch [Habitrol] 1 patch TRANSDERM DAILY PRN 01/18/24 06/02/24 oxyCODONE-APAP 10-325MG [Percocet 1 tab PO Q6HR PRN 01/18/24 06/02/24 10-325 mg] Fluticasone/Umeclidin/Vilanter 1 puff INHALATION RT-DAILY 03/22/24 06/02/24 [Trelegy Ellipta 100-62.5-25] Losartan [Cozaar] 25 mg PO DAILY 03/22/24 06/02/24 valACYclovir HCL [Valacyclovir] 2,000 mg PO DAILY PRN 03/22/24 06/02/24 Albuterol Nebulized [Ventolin 2.5 mg INHALATION RT-QID PRN 06/02/24 06/02/24 Nebulized] Gabapentin 600 mg PO TID 06/02/24 06/02/24 Metoprolol Succinate (ER) [Toprol 100 mg PO DAILY 06/02/24 06/02/24 XL] Previous Rx's Medication Instructions Recorded Aspirin 325 mg PO DAILY #30 tab 02/14/24 Budesonide-Formot 160-4.5 Mcg 2 puff INHALATION RT-BID #1 each 06/04/24 [Symbicort 160-4.5 Mcg Inhaler] Oseltamivir [Tamiflu] 75 mg PO Q12HR #10 cap 06/04/24 methylPREDNISolone Dose Pack 24 mg PO DAILY #1 tab 06/04/24 [Medrol Dose Pack] Allergies Allergy/AdvReac Type Severity Reaction Status Date / Time bee venom protein (honey bee) Allergy SWELLING , Verified 06/02/24 13:12 AND ITCHING Bleach (Sodium Hypochlorite) Allergy Rash/Hives Verified 06/02/24 13:12 nitrofurantoin Allergy Rash/Hives Verified 06/02/24 13:12 [From Macrobid] nitrofurantoin Allergy Rash/Hives Verified 06/02/24 13:12 macrocrystalline [From Macrobid] moxifloxacin [From Avelox] AdvReac Nausea & Verified 06/02/24 13:12 Vomiting NSAIDS (Non-Steroidal AdvReac Had Verified 06/02/24 13:12 Anti-Inflamma gastric sleeve surgery, causes bleeds. seasonal allergies Allergy congestion Uncoded 06/02/24 13:12 and sneezing Review of Systems ROS Statement: Those systems with pertinent positive or pertinent negative responses have been documented in the HPI. ROS Other: All systems not noted in ROS Statement are negative. Constitutional: Denies: fever, chills, weakness Eyes: Denies: vision change ENT: Denies: ear pain, hearing loss Respiratory: Denies: cough, dyspnea Cardiovascular: Denies: chest pain, palpitations, edema, syncope Gastrointestinal: Denies: abdominal pain, nausea, vomiting Genitourinary: Denies: urgency, dysuria Musculoskeletal: Denies: back pain Skin: Denies: rash, lesions, pruritus Neurological: Reports: headache, paresthesias. Denies: weakness, numbness Past Medical History Past Medical History: Asthma, Cancer, COPD, CVA/TIA, GERD/Reflux, Hypertension, Musculoskeletal Disorder, Neurologic Disorder, Sleep Apnea/CPAP/BIPAP, Thyroid Disorder Additional Past Medical History / Comment(s): smoking-related interstitial lung disease, doesn't use CPAP, history of seizure at the age of 16 related to med. to stop breast milk, endometriosis, chronic back pain, plantar fasciitis, hx. of Achilles tendinitis, probably antibiotic induced. She also has history of h ypothyroidism, ALLERGIC rhinitis, migraines, uses oxygen 2L prn, recent iron infusion, MS , tia 2020 no residual issues, tinnitus, balance issues, Migraine. Dx. w/ leukemia, 10/2023, Diagnosed with lung cancer 2023 History of Any Multi-Drug Resistant Organisms: None Reported Past Surgical History: Bariatric Surgery, Cholecystectomy, Hysterectomy, Tubal Ligation, Uterine Ablation Additional Past Surgical History / Comment(s): LEEP PROCEDURE X 2 r/t cervical dysplasia, EGD, BACK INJECTIONS FOR PAIN. The patient has also undergone thoracic/thoracoscopic wedge biopsy of the right lung. 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; R and Y bypass at [facility] 2019, TRACHEOSTOMY-RESOLVED Past Anesthesia/Blood Transfusion Reactions: Motion Sickness Additional Past Anesthesia/Blood Transfusion Reaction / Comment(s): no problem w/blood transfusion Past Psychological History: Anxiety, Depression Smoking Status: Current every day smoker Past Alcohol Use History: None Reported Past Drug Use History: None Reported - Past Family History Sister(s) Family Medical History: Cancer Additional Family Medical History / Comment(s): ovarian Mother Additional Family Medical History / Comment(s): breast cancer Father Family Medical History: COPD, CVA/TIA, Myocardial Infarction (MD) Additional Family Medical History / Comment(s): HEART PROBLEMS, AT AGE 64 General Exam Limitations: no limitations General appearance: alert, in no apparent distress Head exam: Present: atraumatic, normocephalic Eye exam: Present: normal appearance. Absent: scleral icterus, conjunctival injection ENT exam: Present: normal oropharynx Neck exam: Present: normal inspection, full ROM. Absent: tenderness, meningismus Respiratory exam: Present: normal lung sounds bilaterally. Absent: respiratory distress, wheezes, rales, rhonchi, stridor, accessory muscle use Cardiovascular Exam: Present: regular rate, normal rhythm, normal heart sounds. Absent: systolic murmur, diastolic murmur, rubs, gallop GI/Abdominal exam: Present: soft. Absent: distended, tenderness, guarding, rebound, rigid, mass Extremities exam: Present: normal inspection, normal capillary refill. Absent: pedal edema, calf tenderness Back exam: Present: normal inspection. Absent: CVA tenderness (R), CVA tenderness (L) Neurological exam: Present: alert, oriented X3, CN II-XII intact. Absent: motor sensory deficit Skin exam: Present: warm, dry, intact, normal color. Absent: rash Course Vital Signs 05/19/24 05/19/24 05/19/24 00:15 00:55 03:02 Temperature 99.2 F 98.5 F Pulse Rate 92 79 83 Respiratory 16 18 16 Rate Blood Pressure 136/93 145/77 140/87 O2 Sat by Pulse 97 95 95 Oximetry 05/19/24 05/19/24 03:31 05:12 Temperature 98.4 F Pulse Rate 80 84 Respiratory 16 Rate Blood Pressure 153/96 149/94 O2 Sat by Pulse 95 97 Oximetry Medical Decision Making - Medical Decision Making Was pt. sent in by a medical professional or institution ([facility] Jim[facility]nez, EVENT SALES MANAGER, urgent care, hospital, or fdc...) When possible be specific @ -[No] Did you speak to anyone other than the patient for history (EMS, parent, family, police, friend...)? What history was obtained from this source @ -[No] Did you review nursing and triage notes (agree or disagree)? Why? @ -[I reviewed and agree with nursing and triage notes] Were old charts reviewed (outside hosp., previous admission, EMS record, old EKG, old radiological studies, urgent care reports/EKG's, fdc records)? Report findings @ -[No old charts were reviewed] Differential Diagnosis (chest pain, altered mental status, abdominal pain women, abdominal pain men, vaginal bleeding, weakness, fever, dyspnea, syncope, headache, dizziness, GI bleed, back pain, seizure, CVA, palpatations, mental health, musculoskeletal)? @ -[Differential Weakness: Hypoglycemia, shock, sepsis, hyponatremia, anemia, infection, MD, ETOH, adverse medicine reaction, overdose, stroke, this is not meant to be an all-inclusive list. EKG interpreted by me (3pts min.). @ -[As above] X-rays interpreted by me (1pt min.). @ -[None done] CT interpreted by me (1pt min.). @ -[None done] U/S interpreted by me (1pt. min.). @ -[None done] What testing was considered but not performed or refused? (CT, X-rays, U/S, labs)? Why? @ -[None] What meds were considered but not given or refused? Why? @ -[None] Did you discuss the management of the patient with other professionals (professionals i.e. , PA, EVENT SALES MANAGER, lab, RT, psych nurse, social services technician, greaser and oiler, teacher, aoc airspace control officer, business case analyst)? Give summary @ -[No] Was smoking cessation discussed for >3mins.? @ -[No] Was critical care preformed (if so, how long)? @ -[No] Were there social determinants of health that impacted care today? How? (Homeles sness, low income, unemployed, alcoholism, drug addiction, transportation, low edu. Level, literacy, decrease access to med. care, custodial, rehab)? @ -[No] Was there de-escalation of care discussed even if they declined (Discuss DNR or withdrawal of care, Hospice)? DNR status @ -[No] What co-morbidities impacted this encounter? (DM, HTN, Smoking, COPD, CAD, Cancer, CVA, ARF, Chemo, Hep., AIDS, mental health diagnosis, sleep apnea, morbid obesity)? @ -[Multiple sclerosis Was patient admitted / discharged? Hospital course, mention meds given and route, prescriptions, significant lab abnormalities, going to OR and other pertinent info. @ -Patient is 49-year-old woman with history of MS who presents with history suggestive of MS flare. The patient's physical exam not suggestive of acute infection as inciting cause though there is some leukocytosis. Patient feeling better following treatment and at this point stable for outpatient course of steroids, no ophthalmologic symptoms. We discussed appropriate further care and follow-up as well as return parameters Undiagnosed new problem with uncertain prognosis? @ -[No] Drug Therapy requiring intensive monitoring for toxicity (Heparin, Nitro, Insulin, Cardizem)? @ -[No] Were any procedures done? @ -[No] Diagnosis/symptom? @ -[Acute headache acute MS flare Acute, or Chronic, or Acute on Chronic? @ -[ acute on chronic Uncomplicated (without systemic symptoms) or Complicated (systemic symptoms)? @ -[Uncomplicated Side effects of treatment? @ -[No] Exacerbation, Progression, or Severe Exacerbation? @ -[Exacerbation Poses a threat to life or bodily function? How? (Chest pain, USA, MD, pneumonia, PE, COPD, DKA, ARF, appy, cholecystitis, CVA, Diverticulitis, Homicidal, Suicidal, threat to staff... and all critical care pts) @ -[No] All treatments are based on ideal body weight as in ED triage - Lab Data Result diagrams: 05/19/24 01:12 05/19/24 02:58 Lab Results 05/19/24 05/19/24 Range/Units 01:12 02:58 WBC 21.4 H (3.8-10.6) k/uL RBC 4.11 (3.80-5.40) m/uL Hgb 12.7 (11.4-16.0) gm/dL Hct 39.6 (34.0-46.0) % MCV 96.2 (80.0-100.0) fL MCH 30.8 (25.0-35.0) pg MCHC 32.0 (31.0-37.0) g/dL RDW 13.9 (11.5-15.5) % Plt Count 704 H (150-450) k/uL MPV 7.7 Neutrophils % 72 % Lymphocytes % 17 % Monocytes % 5 % Eosinophils % 5 % Basophils % 1 % Neutrophils # 15.4 H (1.3-7.7) k/uL Lymphocytes # 3.6 (1.0-4.8) k/uL Monocytes # 1.0 (0-1.0) k/uL Eosinophils # 1.0 H (0-0.7) k/uL Basophils # 0.1 (0-0.2) k/uL Sodium 139 (137-145) mmol/L Potassium 3.9 (3.5-5.1) mmol/L Chloride 107 (98-107) mmol/L Carbon Dioxide 24 (22-30) mmol/L Anion Gap 8 mmol/L BUN 14 (7-17) mg/dL Creatinine 0.62 (0.52-1.04) mg/dL Est GFR (CKD-EPI)AfAm >90 (>60 ml/min/1.73 sqM) Est GFR (CKD-EPI)NonAf >90 (>60 ml/min/1.73 sqM) Glucose 157 H (74-99) mg/dL Calcium 9.2 (8.4-10.2) mg/dL Total Bilirubin 0.4 (0.2-1.3) mg/dL AST 25 (14-36) U/L ALT 12 (4-34) U/L Alkaline Phosphatase 157 H (38-126) U/L C-Reactive Protein <0.5 (<1.0) mg/dL Total Protein 5.8 L (6.3-8.2) g/dL Albumin 3.2 L (3.5-5.0) g/dL Disposition Clinical Impression: Headache, Exacerbation of multiple sclerosis Disposition: HOME SELF-CARE Condition: Good Instructions (If sedation given, give patient instructions): Acute Headache (ED) Is patient prescribed a controlled substance at d/c from ED?: No Referrals: Keven Kebede MD [Primary Care Provider] - 1-2 days Jesus Levine MD [Medical Doctor] - 1-2 days
[2024-05-19] MEDS: MORPHINE SULFATE 4 MG/ML SYRINGE IVP STA (04:47)
[2024-05-19 05:30] VITALS: BP 149/94; PULSE 84; TEMP 98.4
== END 2024-05-19 05:30 | disposition home or self-care (01) ==
LOC: EC 00:08
DX: R51.9 Headache, unspecified (principal); G35 Multiple sclerosis; F17.200 Nicotine dependence, unspecified, uncomplicated; Z88.1 Allergy status to other antibiotic agents; Z88.6 Allergy status to analgesic agent; Z91.030 Bee allergy status; Z91.048 Other nonmedicinal substance allergy status; Z88.8 Allergy status to other drugs, medicaments and biological substances
CPT/HCPCS: 36415; 80053; 85025; 86140; 99283; 96374; 96375; J2270; J2919

== ENCOUNTER 2024-06-12 10:41 | Observation (INO) | payer MEDICARE, BC ==
--- NOTE | 2024-06-12 11:08 | ED ---
General Adult HPI - General Chief complaint: Shortness of Breath Stated complaint: LUZ Time Seen by Provider: 06/12/24 10:54 Source: patient, RN notes reviewed, old records reviewed Mode of arrival: ambulatory Limitations: no limitations - History of Present Illness Initial comments: 49-year-old female with history of oxygen dependent COPD presenting with increased cough and dyspnea. Patient reports symptoms have worsened over the past several days. She has some associated chest tightness which is currently not present and denies central chest pain. No fever. No lower extremity pain or swelling. - Related Data Home Medications Medication Instructions Recorded Confirmed Levothyroxine Sodium [Synthroid] 50 mcg PO DAILY 01/05/14 06/02/24 Pantoprazole Sodium [Protonix] 40 mg PO DAILY 05/28/18 06/02/24 Cyclobenzaprine [Flexeril] 10 mg PO BID PRN 10/29/20 06/02/24 Ofatumumab [Kesimpta Pen] 20 mg SQ Q30D 02/12/22 06/02/24 Albuterol Sulfate [Albuterol 2 puff INHALATION RT-Q6H PRN 02/19/23 06/02/24 Sulfate Hfa] Pravastatin Sodium [Pravachol] 40 mg PO DAILY@1700 08/21/23 06/02/24 LORazepam [Ativan] 0.5 mg PO BID PRN 01/18/24 06/02/24 Nicotine 21Mg/24Hr Patch [Habitrol] 1 patch TRANSDERM DAILY PRN 01/18/24 06/02/24 oxyCODONE-APAP 10-325MG [Percocet 1 tab PO Q6HR PRN 01/18/24 06/02/24 10-325 mg] Fluticasone/Umeclidin/Vilanter 1 puff INHALATION RT-DAILY 03/22/24 06/02/24 [Trelegy Ellipta 100-62.5-25] Losartan [Cozaar] 25 mg PO DAILY 03/22/24 06/02/24 valACYclovir HCL [Valacyclovir] 2,000 mg PO DAILY PRN 03/22/24 06/02/24 Albuterol Nebulized [Ventolin 2.5 mg INHALATION RT-QID PRN 06/02/24 06/02/24 Nebulized] Gabapentin 600 mg PO TID 06/02/24 06/02/24 Metoprolol Succinate (ER) [Toprol 100 mg PO DAILY 06/02/24 06/02/24 XL] Previous Rx's Medication Instructions Recorded Aspirin 325 mg PO DAILY #30 tab 02/14/24 Budesonide-Formot 160-4.5 Mcg 2 puff INHALATION RT-BID #1 each 06/04/24 [Symbicort 160-4.5 Mcg Inhaler] Oseltamivir [Tamiflu] 75 mg PO Q12HR #10 cap 06/04/24 methylPREDNISolone Dose Pack 24 mg PO DAILY #1 tab 06/04/24 [Medrol Dose Pack] Allergies Allergy/AdvReac Type Severity Reaction Status Date / Time bee venom protein (honey bee) Allergy SWELLING , Verified 06/12/24 10:47 AND ITCHING Bleach (Sodium Hypochlorite) Allergy Rash/Hives Verified 06/12/24 10:47 nitrofurantoin Allergy Rash/Hives Verified 06/12/24 10:47 [From Macrobid] nitrofurantoin Allergy Rash/Hives Verified 06/12/24 10:47 macrocrystalline [From Macrobid] moxifloxacin [From Avelox] AdvReac Nausea & Verified 06/12/24 10:47 Vomiting NSAIDS (Non-Steroidal AdvReac Had Verified 06/12/24 10:47 Anti-Inflamma gastric sleeve surgery, causes bleeds. seasonal allergies Allergy congestion Uncoded 06/12/24 10:47 and sneezing Review of Systems ROS Statement: Those systems with pertinent positive or pertinent negative responses have been documented in the HPI. ROS Other: All systems not noted in ROS Statement are negative. Past Medical History Past Medical History: Asthma, Cancer, COPD, CVA/TIA, GERD/Reflux, Hypertension, Musculoskeletal Disorder, Neurologic Disorder, Sleep Apnea/CPAP/BIPAP, Thyroid Disorder Additional Past Medical History / Comment(s): smoking-related interstitial lung disease, doesn't use CPAP, history of seizure at the age of 16 related to med. to stop breast milk, endometriosis, chronic back pain, plantar fasciitis, hx. of Achilles tendinitis, probably antibiotic induced. She also has history of hypothyroidism, ALLERGIC rhinitis, migraines, uses oxygen 2L prn, recent iron infusion, MS , tia 2020 no residual issues, tinnitus, balance issues, Migraine. Dx. w/ leukemia, 10/2023, Diagnosed with lung cancer Sept. 2024 History of Any Multi-Drug Resistant Organisms: None Reported Past Surgical History: Bariatric Surgery, Cholecystectomy, Hysterectomy, Tubal Ligation, Uterine Ablation Additional Past Surgical History / Comment(s): LEEP PROCEDURE X 2 r/t cervical dysplasia, EGD, BACK INJECTIONS FOR PAIN. The patient has also undergone thoracic/thoracoscopic wedge biopsy of the right lung. 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; R and Y bypass at [facility] 2019, TRACHEOSTOMY-RESOLVED Past Anesthesia/Blood Transfusion Reactions: Motion Sickness Additional Past Anesthesia/Blood Transfusion Reaction / Comment(s): no problem w/blood transfusion Past Psychological History: Anxiety, Depression Smoking Status: Current every day smoker Past Alcohol Use History: None Reported Past Drug Use History: None Reported - Past Family History Sister(s) Family Medical History: Cancer Additional Family Medical History / Comment(s): ovarian Mother Additional Family Medical History / Comment(s): breast cancer Father Family Medical History: COPD, CVA/TIA, Myocardial Infarction ([place]) Additional Family Medical History / Comment(s): HEART PROBLEMS, AT AGE 64 General Exam Limitations: no limitations General appearance: alert Head exam: Present: atraumatic, normocephalic Eye exam: Present: normal appearance, PERRL ENT exam: Present: mucous membranes dry Neck exam: Present: normal inspection. Absent: tenderness Respiratory exam: Present: respiratory distress, wheezes, decreased breath sounds, prolonged expiratory Cardiovascular Exam: Present: normal rhythm, tachycardia GI/Abdominal exam: Present: soft. Absent: distended, tenderness, guarding Extremities exam: Present: normal capillary refill. Absent: pedal edema, calf tenderness Neurological exam: Present: alert, oriented X3, CN II-XII intact. Absent: motor sensory deficit Psychiatric exam: Present: normal affect, normal mood Skin exam: Present: warm, dry, intact Course Vital Signs 06/12/24 06/12/24 06/12/24 10:43 11:00 11:30 Temperature 97.8 F Pulse Rate 127 H 125 H 112 H Respiratory 22 17 20 Rate Blood Pressure 101/64 101/72 97/77 O2 Sat by Pulse 94 L 98 98 Oximetry 06/12/24 06/12/24 06/12/24 12:00 12:09 12:28 Temperature Pulse Rate 107 H 108 H 112 H Respiratory 21 Rate Blood Pressure 95/59 O2 Sat by Pulse 98 Oximetry 06/12/24 13:00 Temperature Pulse Rate 116 H Respiratory 20 Rate Blood Pressure 112/70 O2 Sat by Pulse 92 L Oximetry Medical Decision Making - Medical Decision Making Was pt. sent in by a medical professional or institution (, BECKY, TOOLMAKER, urgent care, hospital, or fci...) When possible be specific @ -No Did you speak to anyone other than the patient for history (EMS, parent, family, police, friend...)? What history was obtained from this source @ -No Did you review nursing and triage notes (agree or disagree)? Why? @ -I reviewed and agree with nursing and triage notes Were old charts reviewed (outside hosp., previous admission, EMS record, old EKG, old radiological studies, urgent care reports/EKG's, fci records)? Report findings @ -No old charts were reviewed Differential Dyspnea: Coronary syndrome, arrhythmia, tamponade, asthma, COPD, pulmonary embolism, pneumonia, pneumothorax, pulmonary effusion, anaphylaxis, diabetic ketoacidosis, flailed chest, pulmonary contusion, diaphragmatic rupture, anemia, neuromuscular, this is not meant to be an all-inclusive list. EKG interpreted by me (3pts min.). @Sinus tachycardia with intraventricular conduction delay similar to prior EKG, left bundle branch pattern rate of 126, OH interval 117, QRS duration 134, QTc 413 X-rays interpreted by me (1pt min.). @ -[Chest x-ray showing likely atypical pneumonia CT interpreted by me (1pt min.). @ -None done U/S interpreted by me (1pt. min.). @ -None done What testing was considered but not performed or refused? (CT, X-rays, U/S, labs)? Why? @ -None What meds were considered but not given or refused? Why? @ -None Did you discuss the management of the patient with other professionals (professionals i.e. BECKY Jiménez, TOOLMAKER, lab, RT, psych nurse, social services aide, police manager, teacher, community relations officer, caser in)? Give summary @ -Case discussed with Dr. Kebede who will admit Was smoking cessation discussed for >3mins.? @ -No Was critical care preformed (if so, how long)? @ -Yes, 35 minutes Were there social determinants of health that impacted care today? How? (Homelessness, low income, unemployed, alcoholism, drug addiction, transportation, low edu. Level, literacy, decrease access to med. care, [facility], rehab)? @ -No Was there de-escalation of care discussed even if they declined (Discuss DNR or withdrawal of care, Hospice)? DNR status @ -No What co-morbidities impacted this encounter? (DM, HTN, Smoking, COPD, CAD, Cancer, CVA, ARF, Chemo, Hep., AIDS, mental health diagnosis, sleep apnea, morbid obesity)? @ -[COPD, recent influenza Was patient admitted / discharged? Hospital course, mention meds given and route, prescriptions, significant lab abnormalities, going to OR and other pertinent info. @49-year-old female presenting for reevaluation cough, dyspnea. Patient wh eezing bilaterally, she is hypoxic requiring supplemental oxygen. Tachycardic. Chest x-ray shows atypical pneumonia may be flu or bacterial pneumonia. Patient is covered with antibiotics admitted for IV steroids and treatment of COPD exacerbation secondary to pneumonia. Patient has a white blood cell count 22.8 and a lactic acid 2.6. She continues to test positive for influenza. Case discussed with Dr. Kebede who will admit. Undiagnosed new problem with uncertain prognosis? @ -No Drug Therapy requiring intensive monitoring for toxicity (Heparin, Nitro, Insulin, Cardizem)? @ -No Were any procedures done? @ -No Diagnosis/symptom? @ -COPD, influenza, atypical pneumonia Acute, or Chronic, or Acute on Chronic? @ -[Acute on chronic Uncomplicated (without systemic symptoms) or Complicated (systemic symptoms)? @ -Default Side effects of treatment? @ -No Exacerbation, Progression, or Severe Exacerbation? @ -No Poses a threat to life or bodily function? How? (Chest pain, [place], [place], pneumonia, PE, COPD, DKA, ARF, appy, cholecystitis, CVA, Diverticulitis, Homicidal, Suicidal, threat to staff... and all critical care pts) @ -Yes, COPD, respiratory failure, pneumonia - Lab Data Result diagrams: 06/12/24 11:21 06/12/24 11:21 Lab Results 06/12/24 06/12/24 06/12/24 Range/Units 11:21 11:21 11:21 WBC 22.8 H (3.8-10.6) k/uL RBC 4.72 (3.80-5.40) m/uL Hgb 14.1 (11.4-16.0) gm/dL Hct 46.2 H (34.0-46.0) % MCV 97.8 (80.0-100.0) fL MCH 29.8 (25.0-35.0) pg MCHC 30.5 L (31.0-37.0) g/dL RDW 14.2 (11.5-15.5) % Plt Count 992 H D (150-450) k/uL MPV 6.8 Neutrophils % (Manual) 64 % Lymphocytes % (Manual) 14 % Monocytes % (Manual) 11 % Eosinophils % (Manual) 7 % Basophils % (Manual) 1 % Metamyelocytes % 2 % Myelocytes % 3 % Neutrophils # (Manual) 14.59 H (1.3-7.7) k/uL Lymphocytes # (Manual) 3.19 (1.0-4.8) k/uL Monocytes # (Manual) 2.51 H (0-1.0) k/uL Eosinophils # (Manual) 1.60 H (0-0.7) k/uL Basophils # (Manual) 0.23 H (0-0.2) k/uL Metamyelocytes # (Man) 0.46 H (0) k/uL Myelocytes # (Manual) 0.68 H (0) k/uL Nucleated RBCs 0 (0-0) /100 WBC Manual Slide Review Performed Hypochromasia Moderate Poikilocytosis (manual Present PT 10.7 (10.0-12.5) sec INR 1.0 (<1.2) APTT 25.5 (22.0-30.0) sec Sodium 136 L (137-145) mmol/L Potassium 4.8 (3.5-5.1) mmol/L Chloride 103 (98-107) mmol/L Carbon Dioxide 25 (22-30) mmol/L Anion Gap 8 mmol/L BUN 11 (7-17) mg/dL Creatinine 0.74 (0.52-1.04) mg/dL Est GFR (CKD-EPI)AfAm >90 (>60 ml/min/1.73 sqM) Est GFR (CKD-EPI)NonAf >90 (>60 ml/min/1.73 sqM) Glucose 116 H (74-99) mg/dL Lactic Ac Sepsis Rflx Plasma Lactic Acid Miguel Angel (0.7-2.0) mmol/L Calcium 8.8 (8.4-10.2) mg/dL Magnesium 2.0 (1.6-2.3) mg/dL Total Bilirubin 0.7 (0.2-1.3) mg/dL AST 27 (14-36) U/L ALT 21 (4-34) U/L Alkaline Phosphatase 142 H (38-126) U/L Troponin I (0.000-0.034) ng/mL NT-Pro-B Natriuret Pep 330 pg/mL Total Protein 6.2 L (6.3-8.2) g/dL Albumin 3.4 L (3.5-5.0) g/dL Influenza Type A (PCR) (Not Detectd) Influenza Type B (PCR) (Not Detectd) RSV (PCR) (Not Detectd) SARS-CoV-2 (PCR) (Not Detectd) 06/12/24 06/12/24 06/12/24 Range/Units 11:21 11:21 11:56 WBC (3.8-10.6) k/uL RBC (3.80-5.40) m/uL Hgb (11.4-16.0) gm/dL Hct (34.0-46.0) % MCV (80.0-100.0) fL MCH (25.0-35.0) pg MCHC (31.0-37.0) g/dL RDW (11.5-15.5) % Plt Count (150-450) k/uL MPV Neutrophils % (Manual) % Lymphocytes % (Manual) % Monocytes % (Manual) % Eosinophils % (Manual) % Basophils % (Manual) % Metamyelocytes % % Myelocytes % % Neutrophils # (Manual) (1.3-7.7) k/uL Lymphocytes # (Manual) (1.0-4.8) k/uL Monocytes # (Manual) (0-1.0) k/uL Eosinophils # (Manual) (0-0.7) k/uL Basophils # (Manual) (0-0.2) k/uL Metamyelocytes # (Man) (0) k/uL Myelocytes # (Manual) (0) k/uL Nucleated RBCs (0-0) /100 WBC Manual Slide Review Hypochromasia Poikilocytosis (manual PT (10.0-12.5) sec INR (<1.2) APTT (22.0-30.0) sec Sodium (137-145) mmol/L Potassium (3.5-5.1) mmol/L Chloride (98-107) mmol/L Carbon Dioxide (22-30) mmol/L Anion Gap mmol/L BUN (7-17) mg/dL Creatinine (0.52-1.04) mg/dL Est GFR (CKD-EPI)AfAm (>60 ml/min/1.73 sqM) Est GFR (CKD-EPI)NonAf (>60 ml/min/1.73 sqM) Glucose (74-99) mg/dL Lactic Ac Sepsis Rflx Y Plasma Lactic Acid Miguel Angel 2.6 H* (0.7-2.0) mmol/L Calcium (8.4-10.2) mg/dL Magnesium (1.6-2.3) mg/dL Total Bilirubin (0.2-1.3) mg/dL AST (14-36) U/L ALT (4-34) U/L Alkaline Phosphatase (38-126) U/L Troponin I 0.013 (0.000-0.034) ng/mL NT-Pro-B Natriuret Pep pg/mL Total Protein (6.3-8.2) g/dL Albumin (3.5-5.0) g/dL Influenza Type A (PCR) (Not Detectd) Influenza Type B (PCR) (Not Detectd) RSV (PCR) (Not Detectd) SARS-CoV-2 (PCR) (Not Detectd) 06/12/24 Range/Units 13:00 WBC (3.8-10.6) k/uL RBC (3.80-5.40) m/uL Hgb (11.4-16.0) gm/dL Hct (34.0-46.0) % MCV (80.0-100.0) fL MCH (25.0-35.0) pg MCHC (31.0-37.0) g/dL RDW (11.5-15.5) % Plt Count (150-450) k/uL MPV Neutrophils % (Manual) % Lymphocytes % (Manual) % Monocytes % (Manual) % Eosinophils % (Manual) % Basophils % (Manual) % Metamyelocytes % % Myelocytes % % Neutrophils # (Manual) (1.3-7.7) k/uL Lymphocytes # (Manual) (1.0-4.8) k/uL Monocytes # (Manual) (0-1.0) k/uL Eosinophils # (Manual) (0-0.7) k/uL Basophils # (Manual) (0-0.2) k/uL Metamyelocytes # (Man) (0) k/uL Myelocytes # (Manual) (0) k/uL Nucleated RBCs (0-0) /100 WBC Manual Slide Review Hypochromasia Poikilocytosis (manual PT (10.0-12.5) sec INR (<1.2) APTT (22.0-30.0) sec Sodium (137-145) mmol/L Potassium (3.5-5.1) mmol/L Chloride (98-107) mmol/L Carbon Dioxide (22-30) mmol/L Anion Gap mmol/L BUN (7-17) mg/dL Creatinine (0.52-1.04) mg/dL Est GFR (CKD-EPI)AfAm (>60 ml/min/1.73 sqM) Est GFR (CKD-EPI)NonAf (>60 ml/min/1.73 sqM) Glucose (74-99) mg/dL Lactic Ac Sepsis Rflx Plasma Lactic Acid Miguel Angel (0.7-2.0) mmol/L Calcium (8.4-10.2) mg/dL Magnesium (1.6-2.3) mg/dL Total Bilirubin (0.2-1.3) mg/dL AST (14-36) U/L ALT (4-34) U/L Alkaline Phosphatase (38-126) U/L Troponin I (0.000-0.034) ng/mL NT-Pro-B Natriuret Pep pg/mL Total Protein (6.3-8.2) g/dL Albumin (3.5-5.0) g/dL Influenza Type A (PCR) Detected A (Not Detectd) Influenza Type B (PCR) Not Detected (Not Detectd) RSV (PCR) Not Detected (Not Detectd) SARS-CoV-2 (PCR) Not Detected (Not Detectd) Critical Care Time Critical Care Time: Yes Total Critical Care Time: 35 Disposition Clinical Impression: Leukocytosis, COPD exacerbation, Acute respiratory failure with hypoxia, Influenza A Disposition: ADMITTED IP TO THIS HOSP Is patient prescribed a controlled substance at d/c from ED?: No Referrals: Keven Kebede MD [Primary Care Provider] - 1-2 days Time of Disposition: 14:06
[2024-06-12] MEDS: SODIUM CHLORIDE 0.9% 500 ML 500 ML IV STA (11:36)
[2024-06-12] MEDS: methylPREDNISolone SOD SUCCI 125 MG/2 ML VIAL IV STA (11:38)
[2024-06-12 11:52] LABS: HCT 46.2 % (34.0-46.0); HGB 14.1 gm/dL (11.4-16.0); Hypochromasia Moderate; MCH 29.8 pg (25.0-35.0); MCHC 30.5 g/dL (31.0-37.0); MCV 97.8 fL (80.0-100.0); Mean Platelet Volume 6.8; Platelet Count 992 k/uL (150-450); RBC 4.72 m/uL (3.80-5.40); RDW 14.2 % (11.5-15.5); WBC 22.8 k/uL (3.8-10.6)
[2024-06-12 11:53] LABS: ALT 21 U/L (4-34); AST 27 U/L (14-36); African American GFR (CKD) >90 (>60 ml/min/1.73 sqM); Albumin 3.4 g/dL (3.5-5.0); Alkaline Phosphatase 142 U/L (38-126); Anion Gap 8 mmol/L; Blood Urea Nitrogen 11 mg/dL (7-17); Calcium 8.8 mg/dL (8.4-10.2); Carbon Dioxide 25 mmol/L (22-30); Chloride 103 mmol/L (98-107); Glucose 116 mg/dL (74-99); Non-African American GFR(CKD) >90 (>60 ml/min/1.73 sqM); Potassium 4.8 mmol/L (3.5-5.1); Sodium 136 mmol/L (137-145); Total Bilirubin 0.7 mg/dL (0.2-1.3); Total Protein 6.2 g/dL (6.3-8.2)
[2024-06-12 12:02] LABS: NT-Pro-B-Type Natriuretic Pept 330 pg/mL
--- NOTE | 2024-06-12 12:03 | XR ---
EXAMINATION TYPE: XR chest 2V DATE OF EXAM: 06/12/2024 11:32 AM COMPARISON: 06/03/2024 CLINICAL INDICATION: Female, 49 years old with history of difficulty breathing, TECHNIQUE: XR chest 2V view(s) obtained. FINDINGS: The heart size is normal. The pulmonary vasculature is prominent. Scattered perihilar increased lung markings are present. Correlate for volume overload or atypical pn eumonia. Acute bronchitis could be considered. IMPRESSION: 1. Mild perihilar infiltrate. Correlate for pulmonary edema or atypical pneumonia. [facility], , 06/12/2024 12:00 PM
[2024-06-12] MEDS: ALBUTEROL NEBULIZED 2.5 MG/3 ML INHALATION STA (12:08)
[2024-06-12] MEDS: IPRATROPIUM 0.5 MG/2.5 ML NEBU INHALATION STA (12:08)
[2024-06-12 12:31] LABS: Partial Thromboplastin Time 25.5 sec (22.0-30.0); Prothrombin Time 10.7 sec (10.0-12.5)
[2024-06-12 12:43] LABS: Basophils # (M) 0.23 k/uL (0-0.2); Lymphocytes # (M) 3.19 k/uL (1.0-4.8); Metamyelocytes # (M) 0.46 k/uL (0); Metamyelocytes % 2 %; Monocytes # (M) 2.51 k/uL (0-1.0); Myelocytes # (M) 0.68 k/uL (0); Myelocytes % 3 %; Neutrophils # (M) 14.59 k/uL (1.3-7.7); Neutrophils % (M) 64 %; Nucleated Red Blood Cells 0 /100 WBC (0-0); Poikilocytosis (M) Present; Total Cells Counted 200
[2024-06-12] MEDS: SODIUM CHLORIDE 0.9% 1,000 ML IV SCH (13:04)
[2024-06-12] MEDS: AZITHROMYCIN 500 MG in SODIUM CHLORIDE 0.9% 250 ML IVPB STA (13:08)
[2024-06-12 13:56] LABS: Influenza A Detected (Not Detectd); Influenza B Not Detected (Not Detectd); RSV Not Detected (Not Detectd)
[2024-06-12] MEDS ORDERED: NALOXONE 0.4 MG/ML 1 ML VIAL IV PRN (14:01)
[2024-06-12] MEDS ORDERED: IPRATROPIUM-ALBUTEROL 3 ML NEB INHALATION PRN (14:02)
[2024-06-12] MEDS: methylPREDNISolone SOD SUCCI 125 MG/2 ML VIAL IV SCH (17:55)
[2024-06-12] MEDS: IPRATROPIUM-ALBUTEROL 3 ML NEB INHALATION SCH (18:00)
--- NOTE | 2024-06-12 19:20 | HP ---
HISTORY AND PHYSICAL CHIEF COMPLAINT: Difficulty breathing. HISTORY OF PRESENT ILLNESS: This is another admission for this 49-year-old pleasant female, who has numerous problems including COPD while she keep smoking. She also has a history of multiple sclerosis and CA of the lung. She was just in the office recently and was treated for influenza. She has continued to get a little bit worse and her shortness of breath became more dramatic and she presented to the emergency room where she was admitted with predominantly diagnosis of exacerbation of chronic obstructive pulmonary disease. It is also important to note that she has had a splenectomy. She still smokes. CURRENT MEDICATIONS: 1. Tamiflu. 2. Symbicort. 3. Ativan. 4. Gabapentin. 5. Metoprolol. 6. Albuterol. 7. Levothyroxine. 8. Pantoprazole. 9. Oxycodone. 10.Actonel. 11.Kesimpta. 12.Pravastatin. PHYSICAL EXAMINATION: VITAL SIGNS: Blood pressure is 160/100 with a pulse of 102, respirations of 35, and temperature is 99. GENERAL: She appeared to be slightly dehydrated. She is slightly pale. HEAD, EARS, EYES, NOSE, MOUTH: Normal except for dry mucous membranes. NECK: Neck veins are not distended. CHEST: Demonstrated decreased breath sounds throughout with scattered rales and rhonchi. There was occasional expiratory wheezing. CARDIAC: Demonstrates sinus tachycardia. ABDOMEN: Soft, nontender. EXTREMITIES: Normal. NEUROLOGICAL: She is intact. ASSESSMENT: She is admitted to the hospital with diagnoses of, 1. Exacerbation of chronic obstructive pulmonary disease. 2. Multiple sclerosis. 3. History of carcinoma of the lung. 4. History of leukemia. 5. Status post splenectomy. PLAN: 1. Bedrest. 2. IV fluids. 3. Antibiotics. 4. IV and inhaled steroids. MMODL / IJN: [id number] /
[2024-06-12] MEDS: ACETAMINOPHEN TAB 325 MG TAB PO PRN (19:49)
[2024-06-13] MEDS ORDERED: ALBUTEROL NEBULIZED 2.5 MG/3 ML INHALATION PRN (10:35)
[2024-06-13] MEDS ORDERED: valACYclovir HCL 1,000 MG TABLET PO PRN (10:35)
[2024-06-13] MEDS ORDERED: NICOTINE 21MG/24HR PATCH TRANSDERM PRN (10:35)
[2024-06-13] MEDS ORDERED: ALBUTEROL 2.5 MG/3 ML INHALATION PRN (10:35)
[2024-06-13] MEDS: oxyCODONE-APAP 10-325MG 1 EACH TAB PO PRN (12:06)
[2024-06-13] MEDS: OSELTAMIVIR 75 MG CAP PO SCH (12:07)
[2024-06-13] MEDS: GABAPENTIN 300 MG CAP PO SCH (17:17)
[2024-06-13] MEDS: PRAVASTATIN SODIUM 40 MG TAB PO SCH (17:18)
[2024-06-13] MEDS: AMOXIC-POT CLAV 875-125MG 1 EACH TAB PO SCH (21:09)
[2024-06-13] MEDS: CYCLOBENZAPRINE 10 MG TAB PO PRN (21:10)
--- NOTE | 2024-06-13 23:26 | PN ---
PROGRESS NOTE DATE OF SERVICE: 06/13/2024 CHIEF COMPLAINT: Difficulty breathing. HISTORY OF PRESENT ILLNESS: This lady is doing a little bit better. She is a little bit less short of breath. She apparently does have influenza A. Laboratory studies reveal her white count to be 22,800. Lactic acid is elevated at 2.6. PHYSICAL EXAMINATION: CHEST: She has scattered rales and rhonchi. CARDIAC: Normal. ABDOMEN: Soft, nontender. IMPRESSION: 1. Exacerbation of chronic obstructive pulmonary disease. 2. Influenza A. 3. History of carcinoma of the right lung. 4. Elevated white count with history of leukemia. PLAN: Add DuoNeb and continue with pulmonary treatments. MMODL / IJN: [id number] /
[2024-06-14] MEDS: LORazepam 0.5 MG TAB PO PRN (01:46)
[2024-06-14] MEDS: LEVOTHYROXINE 50 MCG TAB PO SCH (06:14)
[2024-06-14] MEDS: LOSARTAN 25 MG TAB PO SCH (08:16)
[2024-06-14] MEDS: METOPROLOL SUCCINATE (ER) 100 MG TAB.ER.24H PO SCH (08:16)
[2024-06-14] MEDS: PANTOPRAZOLE 40 MG TABLET PO SCH (08:16)
[2024-06-14] MEDS: ASPIRIN 325 MG TAB PO SCH (08:16)
[2024-06-14] MEDS: SYMBICORT 160-4.5 MCG INHALER INHALATION SCH (08:22)
[2024-06-14] MEDS: NYSTATIN 100,000 UNIT/ML SUSP 500,000 UNIT/5 ML CUP PO SCH (10:34)
--- NOTE | 2024-06-14 15:52 | P.CNPUL ---
History of Present Illness Consult date: 06/14/24 Requesting physician: Keven Kebede Reason for consult: COPD Chief complaint: Shortness of breath, cough, congestion History of present illness: This is a very pleasant 49-year-old female patient with a known history of chronic obstructive pulmonary disease, chronic tobacco dependence, smoking- related interstitial lung disease, hypertension, hypothyroidism, hyperlipidemia. 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 Just here 2 weeks ago with a COPD exacerbation complicated by influenza A. She came back to the emergency room with shortness of breath on 06/12/2024. Chest x- ray shows mild perihilar infiltrate. White count 22.8. Hemoglobin 14.1. Platelets 992. Sodium 136. Potassium 4.8. Bicarb 25. BUN 11. Creatinine 0.74. Glucose 116. proBNP 330. Troponin negative x 1. Viral screen still positive for influenza A. Patient on the regular medical floor. She is up ambulating in her room. Awake and alert in no acute distress. O2 saturations in the high 90s on 4 L/min per nasal cannula. She is afebrile. Hemodynamically stable. Review of Systems REVIEW OF SYSTEMS: CONSTITUTIONAL: Denies any recent significant weight loss or weight gain. EYES: Denies change in vision. EARS, NOSE, MOUTH, THROAT: Denies headaches, denies sore throat. CARDIOVASCULAR: Denies chest pain, palpitations or syncopal episodes. RESPIRATORY: Positive for shortness of breath, cough, congestion no hemoptysis. GASTROINTESTINAL: Denies change in appetite, denies abdominal pain GENITOURINARY: Denies hematuria, denies infections. MUSKULOSKELETAL: Denies pain, denies swelling. INTEGUMENTARY: Denies rash, denies eczema. NEUROLOGICAL: Denies recent memory loss, no recent seizure activity. PSYCHIATRIC: Denies anxiety, denies depression. HEMATOLOGIC/LYMPHATIC: Denies anemia, denies enlarged lymph nodes. Past Medical History Past Medical History: Asthma, Cancer, COPD, CVA/TIA, GERD/Reflux, Hypertension, Musculoskeletal Disorder, Neurologic Disorder, Sleep Apnea/CPAP/BIPAP, Thyroid Disorder Additional Past Medical History / Comment(s): smoking-related interstitial lung disease, doesn't use CPAP, history of seizure at the age of 16 related to med. to stop breast milk, endometriosis, chronic back pain, plantar fasciitis, hx. of Achilles tendinitis, probably antibiotic induced. She also has history of hypothyroidism, ALLERGIC rhinitis, migraines, uses oxygen 2L prn, recent iron infusion, MS , tia 2020 no residual issues, tinnitus, balance issues, Migraine. Dx. w/ leukemia, 10/2023, Diagnosed with lung cancer 2023 History of Any Multi-Drug Resistant Organisms: None Reported Past Surgical History: Bariatric Surgery, Cholecystectomy, Hysterectomy, Tubal Ligation, Uterine Ablation Additional Past Surgical History / Comment(s): LEEP PROCEDURE X 2 r/t cervical dysplasia, EGD, BACK INJECTIONS FOR PAIN. The patient has also undergone thoracic/thoracoscopic wedge biopsy of the right lung. 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; R and Y bypass at [facility] 2018, TRACHEOSTOMY-RESOLVED Past Anesthesia/Blood Transfusion Reactions: Motion Sickness Additional Past Anesthesia/Blood Transfusion Reaction / Comment(s): no problem w/blood transfusion Smoking Status: Never smoker - Past Family History Sister(s) Family Medical History: Cancer Additional Family Medical History / Comment(s): ovarian Mother Additional Family Medical History / Comment(s): breast cancer Father Family Medical History: COPD, CVA/TIA, Myocardial Infarction ([place]) Additional Family Medical History / Comment(s): HEART PROBLEMS, AT AGE 64 Medications and Allergies Home Medications Medication Instructions Recorded Confirmed Type Levothyroxine Sodium [Synthroid] 50 mcg PO DAILY 01/05/14 06/12/24 History Pantoprazole Sodium [Protonix] 40 mg PO DAILY 05/28/18 06/12/24 History Cyclobenzaprine [Flexeril] 10 mg PO BID PRN 10/29/20 06/12/24 History Ofatumumab [Kesimpta Pen] 20 mg SQ Q30D 02/12/22 06/12/24 History Albuterol Sulfate [Albuterol 2 puff INHALATION RT-Q6H PRN 02/19/23 06/12/24 History Sulfate Hfa] Pravastatin Sodium [Pravachol] 40 mg PO DAILY@1700 08/21/23 06/12/24 History LORazepam [Ativan] 0.5 mg PO BID PRN 01/18/24 06/12/24 History Nicotine 21Mg/24Hr Patch [Habitrol] 1 patch TRANSDERM DAILY PRN 01/18/24 06/12/24 History oxyCODONE-APAP 10-325MG [Percocet 1 tab PO Q6HR PRN 01/18/24 06/12/24 History 10-325 mg] Aspirin 325 mg PO DAILY #30 tab 02/14/24 06/12/24 Rx Fluticasone/Umeclidin/Vilanter 1 puff INHALATION RT-DAILY 03/22/24 06/12/24 History [Trelegy Ellipta 100-62.5-25] Losartan [Cozaar] 25 mg PO DAILY 03/22/24 06/12/24 History valACYclovir HCL [Valacyclovir] 2,000 mg PO DAILY PRN 03/22/24 06/12/24 History Albuterol Nebulized [Ventolin 2.5 mg INHALATION RT-QID PRN 06/02/24 06/12/24 History Nebulized] Gabapentin 600 mg PO TID 06/02/24 06/12/24 History Metoprolol Succinate (ER) [Toprol 100 mg PO DAILY 06/02/24 06/12/24 History XL] Amoxic-Pot Clav 875-125Mg 1 tab PO BID 06/12/24 06/12/24 History [Augmentin 875-125] Allergies Allergy/AdvReac Type Severity Reaction Status Date / Time bee venom protein (honey bee) Allergy SWELLING , Verified 06/12/24 15:13 AND ITCHING Bleach (Sodium Hypochlorite) Allergy Rash/Hives Verified 06/12/24 15:13 nitrofurantoin Allergy Rash/Hives Verified 06/12/24 15:13 [From Macrobid] nitrofurantoin Allergy Rash/Hives Verified 06/12/24 15:13 macrocrystalline [From Macrobid] moxifloxacin [From Avelox] AdvReac Nausea & Verified 06/12/24 15:13 Vomiting NSAIDS (Non-Steroidal AdvReac Had Verified 06/12/24 15:13 Anti-Inflamma gastric sleeve surgery, causes bleeds. seasonal allergies Allergy congestion Uncoded 06/12/24 15:13 and sneezing Physical Exam Vitals: Vital Signs Temp Pulse Pulse Pulse Resp BP BP 06/14/24 14:30 98.6 F 102 H 17 111/69 06/14/24 12:34 100 06/14/24 12:25 102 H 06/14/24 08:32 106 H 06/14/24 08:23 108 H 06/14/24 07:35 97.9 F 112 H 18 128/77 06/14/24 01:02 98.1 F 114 H 19 133/75 06/14/24 00:04 112 H 06/13/24 23:55 110 H 06/13/24 21:35 98.9 F 118 H 18 134/86 06/13/24 21:04 98.0 F 115 H 20 113/79 06/13/24 20:08 115 H 06/13/24 19:54 112 H Pulse Ox 06/14/24 14:30 97 06/14/24 12:34 06/14/24 12:25 06/14/24 08:32 06/14/24 08:23 06/14/24 07:35 96 06/14/24 01:02 98 06/14/24 00:04 06/13/24 23:55 06/13/24 21:35 100 06/13/24 21:04 99 06/13/24 20:08 06/13/24 19:54 Intake and Output 06/14/24 06/14/24 06/14/24 06:59 14:59 22:59 Intake Total 480 Balance 480 Intake: Oral 480 Other: Voiding Method Toilet # Voids 2 GENERAL EXAM: Alert, active, pleasant 49-year-old female, on 4 L nasal cannula, comfortable in no apparent distress. HEAD: Normocephalic. EYES: Normal reaction of pupils, equal size. NOSE: Clear with pink turbinates. THROAT: No erythema or exudates. NECK: No masses, no JVD. CHEST: No chest wall deformity. LUNGS: Equal air entry with few scattered rhonchi. CVS: S1 and S2 normal with no audible murmur, regular rhythm. ABDOMEN: No hepatosplenomegaly, normal bowel sounds, no guarding or rigidity. SPINE: No scoliosis or deformity SKIN: No rashes CENTRAL NERVOUS SYSTEM: No focal deficits, tone is normal in all 4 extremities. EXTREMITIES: There is no peripheral edema. No clubbing, no cyanosis. Pe ripheral pulses are intact. Results - Laboratory Findings CBC and BMP: 06/12/24 11:21 06/12/24 11:21 PT/INR, D-dimer PT 10.7 sec (10.0-12.5) 06/12/24 11:21 INR 1.0 (<1.2) 06/12/24 11:21 Abnormal lab findings: Abnormal Labs 06/12/24 06/12/24 06/12/24 11:21 11:21 11:21 WBC 22.8 H Hct 46.2 H MCHC 30.5 L Plt Count 992 H D Neutrophils # (Manual) 14.59 H Monocytes # (Manual) 2.51 H Eosinophils # (Manual) 1.60 H Basophils # (Manual) 0.23 H Metamyelocytes # (Man) 0.46 H Myelocytes # (Manual) 0.68 H Sodium 136 L Glucose 116 H Plasma Lactic Acid Miguel Angel 2.6 H* Alkaline Phosphatase 142 H Total Protein 6.2 L Albumin 3.4 L Influenza Type A (PCR) 06/12/24 13:00 WBC Hct MCHC Plt Count Neutrophils # (Manual) Monocytes # (Manual) Eosinophils # (Manual) Basophils # (Manual) Metamyelocytes # (Man) Myelocytes # (Manual) Sodium Glucose Plasma Lactic Acid Miguel Angel Alkaline Phosphatase Total Protein Albumin Influenza Type A (PCR) Detected A - Diagnostic Findings Chest x-ray: image reviewed Assessment and Plan Assessment: Acute on chronic hypoxemic respiratory failure secondary to an acute exacerbation of chronic obstructive pulmonary disease complicated by influenza A Recent admission for COPD and influenza A 2 weeks ago treated with Tamiflu already History of squamous cell carcinoma of the right upper lung status post right upper lobectomy on January 26, 2024 requiring a prolonged hospitalization through February 14, 2024 History of COVID-19 infection during her stay in January Chronic hypoxemic respiratory failure secondary to severe COPD. FEV1 value 66% of predicted Chronic and ongoing tobacco dependence Smoking related interstitial lung disease Hypertension Hypothyroidism Obstructive sleep apnea History of obesity status post sleeve gastrectomy Splenectomy in 2018 History of anxiety/depression Plan: The patient was seen and evaluated Chest x-ray, labs and medications reviewed Discontinue Tamiflu Continue bronchodilators and steroids Check a procalcitonin Continue Augmentin for now Again educated regarding smoking cessation NicoDerm patch in place Titrate down the FiO2 as tolerated Probable discharge in the a.m. We will continue to follow and make further recommendations based on her clinical status I have personally seen and examined the patient, performed the documentation and the assessment and plan as written. Number of minutes spent on the visit: 20 Dictation was produced using [employer] software. Please excuse any grammatical, word or spelling errors.
--- NOTE | 2024-06-15 12:49 | P.PN ---
Subjective Progress Note Date: 06/15/24 This is a very pleasant 49-year-old female patient with a known history of chronic obstructive pulmonary disease, chronic tobacco dependence, smoking- related interstitial lung disease, hypertension, hypothyroidism, hyperlipidemia. 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 Just here 2 weeks ago with a COPD exacerbation complicated by influenza A. She came back to the emergency room with shortness of breath on 06/12/2024. Chest x- ray shows mild perihilar infiltrate. White count 22.8. Hemoglobin 14.1. Platelets 992. Sodium 136. Potassium 4.8. Bicarb 25. BUN 11. Creatinine 0.74. Glucose 116. proBNP 330. Troponin negative x 1. Viral screen still positive for influenza A. Patient on the regular medical floor. She is up ambulating in her room. Awake and alert in no acute distress. O2 saturations in the high 90s on 4 L/min per nasal cannula. She is afebrile. Hemodynamically stable. The patient is seen today June 15, 2024 in follow-up on the regular medical floor. She is currently sitting up in bed. Awake and alert in no acute distress. Breathing quite a bit better today compared to yesterday. Maintaining good O2 saturations in the 90s 3 L/min per nasal cannula. She is afebrile. Hemodynamically stable. Procalcitonin was negative at 0.12. She is continued on DuoNeb and elations, Symbicort, Solu-Medrol. NicoDerm patch in luis ce. Remains on Tamiflu. Remains on Augmentin. Objective - Vital Signs Vital signs: Vital Signs Temp 98.3 F 06/15/24 07:05 Pulse 92 06/15/24 12:22 Resp 16 06/15/24 07:05 BP 159/80 06/15/24 07:05 Pulse Ox 94 L 06/15/24 07:05 FiO2 Intake & Output 06/14/24 06/15/24 06/15/24 18:59 06:59 18:59 Intake Total 480 240 Balance 480 240 Intake: Oral 480 240 Other: Voiding Method Toilet Toilet # Voids 3 3 - Exam GENERAL EXAM: Alert, active, 49-year-old female, on 3 L nasal cannula, comfortable in no apparent distress. HEAD: Normocephalic. EYES: Normal reaction of pupils, equal size. NOSE: Clear with pink turbinates. THROAT: No erythema or exudates. NECK: No masses, no JVD. CHEST: No chest wall deformity. LUNGS: Equal air entry with no crackles, wheeze, rhonchi or dullness. CVS: S1 and S2 normal with no audible murmur, regular rhythm. ABDOMEN: No hepatosplenomegaly, normal bowel sounds, no guarding or rigidity. SPINE: No scoliosis or deformity SKIN: No rashes CENTRAL NERVOUS SYSTEM: No focal deficits, tone is normal in all 4 extremities. EXTREMITIES: There is no peripheral edema. No clubbing, no cyanosis. Peripheral pulses are intact. - Labs CBC & Chem 7: 06/12/24 11:21 06/12/24 11:21 Assessment and Plan Assessment: Acute on chronic hypoxemic respiratory failure secondary to an acute exacerbation of chronic obstructive pulmonary disease complicated by influenza A Recent admission for COPD and influenza A 2 weeks ago treated with Tamiflu already History of squamous cell carcinoma of the right upper lung status post right upper lobectomy on January 26, 2024 requiring a prolonged hospitalization through February 14, 2024 History of COVID-19 infection during her stay in January Chronic hypoxemic respiratory failure secondary to severe COPD. FEV1 value 66% of predicted Chronic and ongoing tobacco dependence Smoking related interstitial lung disease Hypertension Hypothyroidism Obstructive sleep apnea History of obesity status post sleeve gastrectomy Splenectomy in 2017 History of anxiety/depression Plan: The patient was seen and evaluated Labs and medications reviewed Procalcitonin negative Discontinue Augmentin Again educated regarding smoking cessation NicoDerm patch in place Cleared for discharge Continue her home pulmonary medications Complete a prednisone taper Follow-up in our office in 1 week The patient was seen independently by the pulmonary nurse practitioner addressing pulmonary issues I have personally seen and examined the patient, performed the documentation and the assessment and plan as written. Number of minutes spent on the visit: 24 Dictation was produced using [email or web address] dictation software. Please excuse any grammatical, word or spelling errors.
[2024-06-15 20:20] VITALS: RESP 16
[2024-06-15] MEDS: IPRATROPIUM-ALBUTEROL 3 ML NEB INHALATION SCH (20:34)
[2024-06-16 07:46] VITALS: BP 131/84; TEMP 98.6
[2024-06-16 08:35] VITALS: PULSE 80
--- NOTE | 2024-06-16 13:06 | P.PN ---
Subjective Progress Note Date: 06/16/24 This is a very pleasant 49-year-old female patient with a known history of chronic obstructive pulmonary disease, chronic tobacco dependence, smoking- related interstitial lung disease, hypertension, hypothyroidism, hyperlipidemia. 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 Just here 2 weeks ago with a COPD exacerbation complicated by influenza A. She came back to the emergency room with shortness of breath on 06/12/2024. Chest x- ray shows mild perihilar infiltrate. White count 22.8. Hemoglobin 14.1. Platelets 992. Sodium 136. Potassium 4.8. Bicarb 25. BUN 11. Creatinine 0.74. Glucose 116. proBNP 330. Troponin negative x 1. Viral screen still positive for influenza A. Patient on the regular medical floor. She is up ambulating in her room. Awake and alert in no acute distress. O2 saturations in the high 90s on 4 L/min per nasal cannula. She is afebrile. Hemodynamically stable. The patient is seen today June 15, 2024 in follow-up on the regular medical floor. She is currently sitting up in bed. Awake and alert in no acute distress. Breathing quite a bit better today compared to yesterday. Maintaining good O2 saturations in the 90s 3 L/min per nasal cannula. She is afebrile. Hemodynamically stable. Procalcitonin was negative at 0.12. She is continued on DuoNeb and elations, Symbicort, Solu-Medrol. NicoDerm patch in luis ce. Remains on Tamiflu. Remains on Augmentin. The patient is seen today June 16, 2024 in follow-up on the regular medical floor. She is awake and alert in no acute distress. Maintaining O2 saturations in the 90s on room air. She is afebrile. Hemodynamically stable. No new labs today. She remains on DuoNeb and elations, Symbicort, Solu-Medrol. Remains on Augmentin. NicoDerm patch in place. Continued on Tamiflu. Objective - Vital Signs Vital signs: Vital Signs Temp 98.6 F 06/16/24 07:45 Pulse 80 06/16/24 08:34 Resp 16 06/16/24 08:08 BP 131/84 06/16/24 07:45 Pulse Ox 93 L 06/16/24 07:45 FiO2 Intake & Output 02/28/25 03/01/25 03/01/25 18:59 06:59 18:59 Intake Total 358 118 Balance 358 118 Intake: Oral 358 118 Other: Voiding Method Toilet Toilet Toilet # Voids 2 3 - Exam GENERAL EXAM: Alert, 49-year-old female, on room air, comfortable in no apparent distress. HEAD: Normocephalic. EYES: Normal reaction of pupils, equal size. NOSE: Clear with pink turbinates. THROAT: No erythema or exudates. NECK: No masses, no JVD. CHEST: No chest wall deformity. LUNGS: Equal air entry with no crackles, wheeze, rhonchi or dullness. CVS: S1 and S2 normal with no audible murmur, regular rhythm. ABDOMEN: No hepatosplenomegaly, normal bowel sounds, no guarding or rigidity. SPINE: No scoliosis or deformity SKIN: No rashes CENTRAL NERVOUS SYSTEM: No focal deficits, tone is normal in all 4 extremities. EXTREMITIES: There is no peripheral edema. No clubbing, no cyanosis. Peripheral pulses are intact. - Labs CBC & Chem 7: 06/12/24 11:21 06/12/24 11:21 Assessment and Plan Assessment: Acute on chronic hypoxemic respiratory failure secondary to an acute exacerbation of chronic obstructive pulmonary disease complicated by influenza A Recent admission for COPD and influenza A 2 weeks ago treated with Tamiflu already History of squamous cell carcinoma of the right upper lung status post right upper lobectomy on January 26, 2024 requiring a prolonged hospitalization through February 14, 2024 History of COVID-19 infection during her stay in January Chronic hypoxemic respiratory failure secondary to severe COPD. FEV1 value 66% of predicted Chronic and ongoing tobacco dependence Smoking related interstitial lung disease Hypertension Hypothyroidism Obstructive sleep apnea History of obesity status post sleeve gastrectomy Splenectomy in 2018 History of anxiety/depression Plan: The patient was seen and evaluated Medications reviewed Again educated regarding smoking cessation Cleared for discharge Continue her home pulmonary medications Complete a prednisone taper Follow-up in our office in 1 week The patient was seen independently by the pulmonary nurse practitioner addressing pulmonary issues I have personally seen and examined the patient, performed the documentation and the assessment and plan as written. Number of minutes spent on the visit: 23 Dictation was produced using [employer] dictation software. Please excuse any grammatical, word or spelling errors.
[2024-06-17] MEDS ORDERED: methylPREDNISolone 4 MG TAB TAPER PO SCH (09:00)
--- NOTE | 2024-06-18 08:18 | DS ---
DISCHARGE SUMMARY CHIEF COMPLAINT: Difficulty breathing. HISTORY OF PRESENT ILLNESS AND PHYSICAL EXAMINATION: Details of this lady's history and physical can be found in the initial workup. LABORATORY STUDIES: While she was in the hospital, she had laboratory studies, details of which can be found in the laboratory section of her chart. COURSE IN THE HOSPITAL: After admission, she was placed on bedrest, started on intravenous fluids and started on IV inhaled steroids. Her shortness of breath improved over the next 24 to 48 hours. She had no further difficulties with fever, chills, nausea, vomiting, etc. It was felt that she could be discharged to home on the and will be followed up in the office. She will be sent home with the Medrol Dosepak in addition to Mycostatin oral suspension and the usual medication. FINAL DIAGNOSES: 1. Exacerbation of chronic obstructive pulmonary disease. 2. Bronchopneumonia. 3. Chronic obstructive pulmonary disease. 4. History of carcinoma of the right lung. 5. Multiple sclerosis. 6. Leukemia. 7. Thrush. OPERATIONS: None. CONSULTATIONS: None. CONDITION: She has improved. MMODL / IJN: [id number] /
== END 2024-06-16 12:48 | disposition home or self-care (01) ==
LOC: EC 10:41 → 4SSUR 14:01 → 6NMEDSUR 06-13 19:49
PROVIDERS: ADMIT Family Medicine; ATTEND Family Medicine
DX: J44.1 Chronic obstructive pulmonary disease with (acute) exacerbation (principal); J96.21 Acute and chronic respiratory failure with hypoxia; J10.08 Influenza due to other identified influenza virus with other specified pneumonia; J44.0 Chronic obstructive pulmonary disease with (acute) lower respiratory infection; J18.0 Bronchopneumonia, unspecified organism; G35 Multiple sclerosis; C95.90 Leukemia, unspecified not having achieved remission; E78.5 Hyperlipidemia, unspecified; I10 Essential (primary) hypertension; E03.9 Hypothyroidism, unspecified; G47.33 Obstructive sleep apnea (adult) (pediatric); B37.9 Candidiasis, unspecified; E66.9 Obesity, unspecified; Z68.21 Body mass index [BMI] 21.0-21.9, adult; F32.A Depression, unspecified; F41.9 Anxiety disorder, unspecified; F17.200 Nicotine dependence, unspecified, uncomplicated; Z99.81 Dependence on supplemental oxygen; Z79.890 Hormone replacement therapy; Z79.82 Long term (current) use of aspirin; Z79.620 Long term (current) use of immunosuppressive biologic; Z79.51 Long term (current) use of inhaled steroids; Z79.52 Long term (current) use of systemic steroids; Z79.899 Other long term (current) drug therapy; Z88.6 Allergy status to analgesic agent; Z88.1 Allergy status to other antibiotic agents; Z91.030 Bee allergy status; Z88.8 Allergy status to other drugs, medicaments and biological substances; Z91.048 Other nonmedicinal substance allergy status; Z11.52 Encounter for screening for COVID-19; Z11.59 Encounter for screening for other viral diseases; Z85.118 Personal history of other malignant neoplasm of bronchus and lung; Z90.81 Acquired absence of spleen; Z90.2 Acquired absence of lung [part of]; Z86.16 Personal history of COVID-19; Z98.84 Bariatric surgery status
CPT/HCPCS: 96376 ×5; 96361 ×5; 96365; 96375; 99291; 36415; 94640 ×9; 93005; 83880; 80053; 83605; 83735; 84484; 85025; 85610; 85730; 84145; 87636; 71046; G0378 ×6; J0456; J0696; J2919 ×5

== ENCOUNTER 2024-07-25 15:10 | Emergency (ER) | payer MEDICARE, BC ==
[2024-07-25 15:34] VITALS: RESP 18; TEMP 98.6
--- NOTE | 2024-07-25 16:18 | ED ---
Head Injury HPI - General Source: patient Mode of arrival: ambulatory Limitations: no limitations <Sun Rivas - Last Filed: 07/25/24 16:28> <Angela Hunter - Last Filed: 07/25/24 16:40> - General Chief complaint: Head Injury Stated complaint: fall, head injury Time Seen by Provider: 07/25/24 15:30 - History of Present Illness Initial comments: 49-year-old female who presents to the emergency department after a fall. States that last night she was letting her dog out when he tripped her and she fell backwards hitting her head against the cement. She denies losing consciousness. Did suffer an abrasion to the occiput. She does not take any blood thinners. Today she has had a persistent headache, blurred vision, nausea and feels confused. She denies any neck or back pain. No numbness, tingling or weakness in her extremities. Denies any chest pain or difficulty breathing. No other injuries noted to her body. Unaware of her last tetanus shot. No other alleviating, precipitating or modifying factors (Sun Rivas) - Related Data Home Medications Medication Instructions Recorded Confirmed Levothyroxine Sodium [Synthroid] 50 mcg PO DAILY 01/05/14 06/12/24 Pantoprazole Sodium [Protonix] 40 mg PO DAILY 05/28/18 06/12/24 Cyclobenzaprine [Flexeril] 10 mg PO BID PRN 10/29/20 06/12/24 Ofatumumab [Kesimpta Pen] 20 mg SQ Q30D 02/12/22 06/12/24 Albuterol Sulfate [Albuterol 2 puff INHALATION RT-Q6H PRN 02/19/23 06/12/24 Sulfate Hfa] Pravastatin Sodium [Pravachol] 40 mg PO DAILY@1700 08/21/23 06/12/24 LORazepam [Ativan] 0.5 mg PO BID PRN 01/18/24 06/12/24 Nicotine 21Mg/24Hr Patch [Habitrol] 1 patch TRANSDERM DAILY PRN 01/18/24 06/12/24 oxyCODONE-APAP 10-325MG [Percocet 1 tab PO Q6HR PRN 01/18/24 06/12/24 10-325 mg] Fluticasone/Umeclidin/Vilanter 1 puff INHALATION RT-DAILY 03/22/24 06/12/24 [Trelegy Ellipta 100-62.5-25] Losartan [Cozaar] 25 mg PO DAILY 03/22/24 06/12/24 valACYclovir HCL [Valacyclovir] 2,000 mg PO DAILY PRN 03/22/24 06/12/24 Albuterol Nebulized [Ventolin 2.5 mg INHALATION RT-QID PRN 06/02/24 06/12/24 Nebulized] Gabapentin 600 mg PO TID 06/02/24 06/12/24 Metoprolol Succinate (ER) [Toprol 100 mg PO DAILY 06/02/24 06/12/24 XL] Amoxic-Pot Clav 875-125Mg 1 tab PO BID 06/12/24 06/12/24 [Augmentin 875-125] Previous Rx's Medication Instructions Recorded Aspirin 325 mg PO DAILY #30 tab 02/14/24 Oseltamivir [Tamiflu] 75 mg PO Q12HR #10 cap 06/16/24 methylPREDNISolone Dose Pack 24 mg PO DAILY #1 tab 06/16/24 [Medrol Dose Pack] Allergies/Adverse reactions: Allergies Allergy/AdvReac Type Severity Reaction Status Date / Time bee venom protein (honey bee) Allergy SWELLING , Verified 07/25/24 15:34 AND ITCHING Bleach (Sodium Hypochlorite) Allergy Rash/Hives Verified 07/25/24 15:34 nitrofurantoin Allergy Rash/Hives Verified 07/25/24 15:34 [From Macrobid] nitrofurantoin Allergy Rash/Hives Verified 07/25/24 15:34 macrocrystalline [From Macrobid] moxifloxacin [From Avelox] AdvReac Nausea & Verified 07/25/24 15:34 Vomiting NSAIDS (Non-Steroidal AdvReac Had Verified 07/25/24 15:34 Anti-Inflamma gastric sleeve surgery, causes bleeds. seasonal allergies Allergy congestion Uncoded 07/25/24 15:34 and sneezing Review of Systems ROS Other: All systems not noted in ROS Statement are negative. <Sun Rivas - Last Filed: 07/25/24 16:28> ROS Other: All systems not noted in ROS Statement are negative. <Angela Hunter - Last Filed: 07/25/24 16:40> ROS Statement: Those systems with pertinent positive or pertinent negative responses have been documented in the HPI. Past Medical History Past Medical History: Asthma, Cancer, COPD, CVA/TIA, GERD/Reflux, Hypertension, Musculoskeletal Disorder, Neurologic Disorder, Sleep Apnea/CPAP/BIPAP, Thyroid Disorder Additional Past Medical History / Comment(s): smoking-related interstitial lung disease, doesn't use CPAP, history of seizure at the age of 16 related to med. to stop breast milk, endometriosis, chronic back pain, plantar fasciitis, hx. of Achilles tendinitis, probably antibiotic induced. She also has history of hypothyroidism, ALLERGIC rhinitis, migraines, uses oxygen 2L prn, recent iron infusion, MS , tia 2020 no residual issues, tinnitus, balance issues, Migraine. Dx. w/ leukemia, 10/2023, Diagnosed with lung cancer 2023 History of Any Multi-Drug Resistant Organisms: None Reported Past Surgical History: Bariatric Surgery, Cholecystectomy, Hysterectomy, Tubal Ligation, Uterine Ablation Additional Past Surgical History / Comment(s): LEEP PROCEDURE X 2 r/t cervical dysplasia, EGD, BACK INJECTIONS FOR PAIN. The patient has also undergone thoracic/thoracoscopic wedge biopsy of the right lung. 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; R and Y bypass at [facility] 2019, TRACHEOSTOMY-RESOLVED Past Anesthesia/Blood Transfusion Reactions: Motion Sickness Additional Past Anesthesia/Blood Transfusion Reaction / Comment(s): no problem w/blood transfusion Past Psychological History: Anxiety, Depression Smoking Status: Current every day smoker Past Alcohol Use History: None Reported Past Drug Use History: None Reported - Past Family History Sister(s) Family Medical History: Cancer Additional Family Medical History / Comment(s): ovarian Mother Additional Family Medical History / Comment(s): breast cancer Father Family Medical History: COPD, CVA/TIA, Myocardial Infarction ([place]) Additional Family Medical History / Comment(s): HEART PROBLEMS, AT AGE 64 <Sun Rivas - Last Filed: 07/25/24 16:28> General Exam Limitations: no limitations General appearance: alert, in no apparent distress Head exam: Present: atraumatic, other (abrasion to occiput) Eye exam: Present: normal appearance, PERRL, EOMI. Absent: scleral icterus, conjunctival injection, periorbital swelling ENT exam: Present: normal exam, mucous membranes moist Neck exam: Present: normal inspection. Absent: tenderness, meningismus, lymphadenopathy Respiratory exam: Present: normal lung sounds bilaterally. Absent: respiratory distress, wheezes, rales, rhonchi, stridor Cardiovascular Exam: Present: regular rate, normal rhythm, normal heart sounds. Absent: systolic murmur, diastolic murmur, rubs, gallop, clicks GI/Abdominal exam: Present: soft, normal bowel sounds. Absent: distended, tenderness, guarding, rebound, rigid Extremities exam: Present: normal inspection, full ROM, normal capillary refill. Absent: tenderness, pedal edema, joint swelling, calf tenderness Back exam: Present: normal inspection Neurological exam: Present: alert, oriented X3, CN II-XII intact Psychiatric exam: Present: normal affect, normal mood Skin exam: Present: warm, dry, intact, normal color. Absent: rash <Sun Rivas - Last Filed: 07/25/24 16:28> Course Vital Signs 07/25/24 15:26 Temperature 98.6 F Pulse Rate 89 Respiratory 18 Rate Blood Pressure 131/82 O2 Sat by Pulse 96 Oximetry Medical Decision Making <Sun Rivas - Last Filed: 07/25/24 16:28> - Medical Decision Making Was pt. sent in by a medical professional or institution ([facility], [facility] [employer], urgent care, hospital, or senior care...) When possible be specific @ -[No] Did you speak to anyone other than the patient for history (EMS, parent, family, police, friend...)? What history was obtained from this source @ -[No] Did you review nursing and triage notes (agree or disagree)? Why? @ -[I reviewed and agree with nursing and triage notes] Were old charts reviewed (outside hosp., previous admission, EMS record, old EKG, old radiological studies, urgent care reports/EKG's, senior care records)? Report findings @ -[No old charts were reviewed] Differential Diagnosis (chest pain, altered mental status, abdominal pain women, abdominal pain men, vaginal bleeding, weakness, fever, dyspnea, syncope, headache, dizziness, GI bleed, back pain, seizure, CVA, palpatations, mental health, musculoskeletal)? @ -[not applicable] EKG interpreted by me (3pts min.). @ -[As above] X-rays interpreted by me (1pt min.). @ -[None done] CT interpreted by me (1pt min.). @ -[None done] U/S interpreted by me (1pt. min.). @ -[None done] What testing was considered but not performed or refused? (CT, X-rays, U/S, labs)? Why? @ -[None] What meds were considered but not given or refused? Why? @ -[None] Did you discuss the management of the patient with other professionals (professionals i.e. DrJazmín, PA, [employer], lab, RT, psych nurse, social media community manager, product/industry consultant, teacher, forest fire management officer, case loader operator)? Give summary @ -[No] Was smoking cessation discussed for >3mins.? @ -[No] Was critical care preformed (if so, how long)? @ -[No] Were there social determinants of health that impacted care today? How? (Homelessness, low income, unemployed, alcoholism, drug addiction, transportation, low edu. Level, literacy, decrease access to med. care, fpc, rehab)? @ -[No] Was there de-escalation of care discussed even if they declined (Discuss DNR or withdrawal of care, Hospice)? DNR status @ -[No] What co-morbidities impacted this encounter? (DM, HTN, Smoking, COPD, CAD, Cancer, CVA, ARF, Chemo, Hep., AIDS, mental health diagnosis, sleep apnea, morbid obesity)? @ -[None] Was patient admitted / discharged? Hospital course, mention meds given and route, prescriptions, significant lab abnormalities, going to OR and other pertinent info. @ -[hospital course] Undiagnosed new problem with uncertain prognosis? @ -[No] Drug Therapy requiring intensive monitoring for toxicity (Heparin, Nitro, Insulin, Cardizem)? @ -[No] Were any procedures done? @ -[No] Diagnosis/symptom? @ -[default] Acute, or Chronic, or Acute on Chronic? @ -[default] Uncomplicated (without systemic symptoms) or Complicated (systemic symptoms)? @ -[default] Side effects of treatment? @ -[No] Exacerbation, Progression, or Severe Exacerbation? @ -[No] Poses a threat to life or bodily function? How? (Chest pain, [place], [place], pneumonia, PE, COPD, DKA, ARF, appy, cholecystitis, CVA, Diverticulitis, Homicidal, Suicidal, threat to staff... and all critical care pts) @ -[No] (Sun Rivas) Disposition Is patient prescribed a controlled substance at d/c from ED?: No Time of Disposition: 16:29 <Sun Rivas - Last Filed: 07/25/24 16:28> <Angela Hunter - Last Filed: 07/25/24 16:40> Clinical Impression: Concussion without loss of consciousness Disposition: HOME SELF-CARE Condition: Stable Instructions (If sedation given, give patient instructions): Concussion (ED), Diphtheria/Pertussis/Tetanus Vaccine (By injection) Additional Instructions: CAT scan of your head was negative. You are now diagnosed with a concussion. P lease avoid any future head injuries in the near future. You may take Tylenol every 6 hours as needed for pain. Return to the emergency department for any new or worsening symptoms Referrals: Keven Kebede MD [Primary Care Provider] - 1-2 days
--- NOTE | 2024-07-25 16:18 | CT ---
EXAMINATION TYPE: CT brain jose wo con DATE OF EXAM: 07/25/2024 COMPARISON: 10/15/2023 CLINICAL INDICATION: Female, 49 years old with history of head injury, headache, blurred vision, fati terri; PHH, Head injury, headache, blurred vision, fatigue. TECHNIQUE: CT scan of the head and cervical spine are performed without contrast. CT DLP: 1213.[address] CTDI: mGy Automated exposure control for dose reduction was used. Findings: Head CT: Ventricles, basal cisterns and sulci over convexities are within normal limits and there is no mass, mass effect or shift of midline structures. No abnormal density is seen throughout the brain parenchyma and there is no acute intra or extra-axia l hemorrhage. Posterior fossa including the brainstem, fourth ventricle and cerebellar pontine angles are grossly n ormal. The intraorbital contents appear normal and symmetric. There are mild chronic inflammatory changes in the maxillary sinuses. CT cervical spine: Craniovertebral junction relationships and prevertebral soft tissues are normal. The cervical vertebral segments are normal in height and alignment and there is no fracture subluxati on. The disc spaces are well-maintained in height and there is no significant degenerative disc disease. The bony cervical canal is widely patent and there is no bony encroachment of the neural foramina. The paraspinal soft tissues unremarkable. IMPRESSION: 1. Head CT: No acute bleed or mass effect. 2. CT cervical spine: No acute trauma. [facility], Workstation: [facility], 07/25/2024 4:16 PM
[2024-07-25] MEDS: ACETAMINOPHEN TAB 500 MG TAB PO STA (16:53)
[2024-07-25] MEDS: DIPH,PERTUS(ACELL)TETVAC-LF 0.5 ML VIAL IM ONE (16:54)
[2024-07-25 17:04] VITALS: BP 128/78; PULSE 74
== END 2024-07-25 17:04 | disposition home or self-care (01) ==
LOC: EC 15:10
DX: S06.0X0A Concussion without loss of consciousness, initial encounter (principal); F17.200 Nicotine dependence, unspecified, uncomplicated; Z86.73 Personal history of transient ischemic attack (TIA), and cerebral infarction without residual deficits; Z91.030 Bee allergy status; Z88.1 Allergy status to other antibiotic agents; Z88.6 Allergy status to analgesic agent; Z88.8 Allergy status to other drugs, medicaments and biological substances; Z23 Encounter for immunization; W01.198A Fall on same level from slipping, tripping and stumbling with subsequent striking against other object, initial encounter
CPT/HCPCS: 70450; 72125; 90471; 90715; 99284

== ENCOUNTER → 2024-08-07 | Outpatient (CLI) | payer BC, MEDICARE, OTHER ==
--- NOTE | 2024-08-07 14:17 | CT ---
EXAMINATION TYPE: CT ChestAbdPelvis w con DATE OF EXAM: 08/07/2024 COMPARISON: 05/09/2024 CLINICAL INDICATION: Female, 49 years old with history of C34.11 MALIGNANT NEOPLASM OF UPPER LOBE, RI GHT BRO CT DLP: 490.4 mGycm Automated exposure control for dose reduction was used. CONTRAST: CT scan of the chest, abdomen and pelvis is performed with Oral Contrast and with IV Contrast, patien t injected with 100 ML mL of Isovue 300. FINDINGS: CT chest: There are stable marked chronic interstitial changes with focal areas of honeycombing in the subpleur al parenchyma of the upper lobes. There is a small focal area of groundglass opacity opacity in the r ight upper lobe posteriorly which is stable and could represent an acute infiltrate or chronic change . There is a small right apical pneumothorax. There are no new or suspicious lung masses or nodules. The great vessels and chest are normal there is no mediastinal, hilar or axillary adenopathy. No focal osseous lesions are seen. CT abdomen and pelvis: There is surgical absence of the gallbladder. There is no biliary ductal dilatation. There is no focal mass or organomegaly involving the liver, pancreas, spleen or adrenal glands.. There is no solid renal mass or hydronephrosis. There is no retroperitoneal adenopathy or hemorrhage in the caliber of the abdominal aorta is normal. The bowel loops are normal in caliber and there is no dilatation or obstruction. No inflammatory gutiérrez ges identified in the bowel wall and mesentery. There is no free intracranial air or fluid. There is no pelvic mass or adenopathy. There is no free fluid within the pelvis. There is surgical ab sence of the uterus. No focal osseous lesions are seen. Soft tissue the abdomen and pelvis are normal. IMPRESSION: 1. Stable marked chronic interstitial changes/fibrosis within the lungs. 2. Tiny apical pneumothorax in the right lung apex. 3. No suspicious lung mass or nodule. 4. No definite mediastinal, hilar or axillary adenopathy. 5. no acute changes within the abdomen or pelvis. [facility], , 08/07/2024 2:15 PM
== END | disposition home or self-care (01) ==
LOC: RADCTMAIN 11:24
PROVIDERS: ATTEND Internal Medicine Hematology & Oncology
DX: C34.11 Malignant neoplasm of upper lobe, right bronchus or lung (principal); D72.829 Elevated white blood cell count, unspecified; M12.9 Arthropathy, unspecified; D47.3 Essential (hemorrhagic) thrombocythemia; E61.1 Iron deficiency; Z90.49 Acquired absence of other specified parts of digestive tract
CPT/HCPCS: 71260; 74177; Q9967

== ENCOUNTER 2024-08-12 13:38 | Emergency (ER) | payer BC, MEDICARE, OTHER ==
[2024-08-12 13:42] VITALS: TEMP 97.3
--- NOTE | 2024-08-12 14:16 | ED ---
Headache HPI - General Chief Complaint: Recheck/Abnormal Lab/Rx Stated Complaint: Migraines, nerve pain Time Seen by Provider: 08/12/24 13:48 Source: patient, RN notes reviewed Mode of arrival: ambulatory Limitations: no limitations - History of Present Illness Initial Comments: This is a 49-year-old female who presents to the emergency department for he adaches and nerve pain. States that it started about 3 days ago. States that this feels like an MS exacerbation. She is on once monthly Kesimpta injections for the MS. She was scheduled to have an updated EMG in September, at which time they may discuss changing her treatment. States that she had a scan of her head and neck a week ago that was unremarkable. Currently takes gabapentin for her pain, however it has not been effective this time around. States that steroids and pain medication usually help her temporarily. Also states that she has been having diarrhea for the last 3 weeks and feels dehydrated. Denies any abdominal pain, nausea, or vomiting. - Related Data Home Medications Medication Instructions Recorded Confirmed Levothyroxine Sodium [Synthroid] 50 mcg PO DAILY 01/05/14 06/12/24 Pantoprazole Sodium [Protonix] 40 mg PO DAILY 05/28/18 06/12/24 Cyclobenzaprine [Flexeril] 10 mg PO BID PRN 10/29/20 06/12/24 Ofatumumab [Kesimpta Pen] 20 mg SQ Q30D 02/12/22 06/12/24 Albuterol Sulfate [Albuterol 2 puff INHALATION RT-Q6H PRN 02/19/23 06/12/24 Sulfate Hfa] Pravastatin Sodium [Pravachol] 40 mg PO DAILY@1700 08/21/23 06/12/24 LORazepam [Ativan] 0.5 mg PO BID PRN 01/18/24 06/12/24 Nicotine 21Mg/24Hr Patch [Habitrol] 1 patch TRANSDERM DAILY PRN 01/18/24 06/12/24 oxyCODONE-APAP 10-325MG [Percocet 1 tab PO Q6HR PRN 01/18/24 06/12/24 10-325 mg] Fluticasone/Umeclidin/Vilanter 1 puff INHALATION RT-DAILY 03/22/24 06/12/24 [Trelegy Ellipta 100-62.5-25] Losartan [Cozaar] 25 mg PO DAILY 03/22/24 06/12/24 valACYclovir HCL [Valacyclovir] 2,000 mg PO DAILY PRN 03/22/24 06/12/24 Albuterol Nebulized [Ventolin 2.5 mg INHALATION RT-QID PRN 06/02/24 06/12/24 Nebulized] Gabapentin 600 mg PO TID 06/02/24 06/12/24 Metoprolol Succinate (ER) [Toprol 100 mg PO DAILY 06/02/24 06/12/24 XL] Amoxic-Pot Clav 875-125Mg 1 tab PO BID 06/12/24 06/12/24 [Augmentin 875-125] Previous Rx's Medication Instructions Recorded Aspirin 325 mg PO DAILY #30 tab 02/14/24 Oseltamivir [Tamiflu] 75 mg PO Q12HR #10 cap 06/16/24 methylPREDNISolone Dose Pack 24 mg PO DAILY #1 tab 06/16/24 [Medrol Dose Pack] predniSONE 50 mg PO DAILY 5 Days #5 tab 08/12/24 Allergies Allergy/AdvReac Type Severity Reaction Status Date / Time bee venom protein (honey bee) Allergy SWELLING , Verified 08/12/24 13:43 AND ITCHING Bleach (Sodium Hypochlorite) Allergy Rash/Hives Verified 08/12/24 13:43 nitrofurantoin Allergy Rash/Hives Verified 08/12/24 13:43 [From Macrobid] nitrofurantoin Allergy Rash/Hives Verified 08/12/24 13:43 macrocrystalline [From Macrobid] moxifloxacin [From Avelox] AdvReac Nausea & Verified 08/12/24 13:43 Vomiting NSAIDS (Non-Steroidal AdvReac Had Verified 08/12/24 13:43 Anti-Inflamma gastric sleeve surgery, causes bleeds. seasonal allergies Allergy congestion Uncoded 08/12/24 13:43 and sneezing Review of Systems ROS Statement: Those systems with pertinent positive or pertinent negative responses have been documented in the HPI. ROS Other: All systems not noted in ROS Statement are negative. Past Medical History Past Medical History: Asthma, Cancer, COPD, CVA/TIA, GERD/Reflux, Hypertension, Musculoskeletal Disorder, Neurologic Disorder, Sleep Apnea/CPAP/BIPAP, Thyroid Disorder Additional Past Medical History / Comment(s): smoking-related interstitial lung disease, doesn't use CPAP, history of seizure at the age of 16 related to med. to stop breast milk, endometriosis, chronic back pain, plantar fasciitis, hx. of Achilles tendinitis, probably antibiotic induced. She also has history of hyp othyroidism, ALLERGIC rhinitis, migraines, uses oxygen 2L prn, recent iron infusion, MS , tia 2020 no residual issues, tinnitus, balance issues, Migraine. Dx. w/ leukemia, 10/2023, Diagnosed with lung cancer 2023 History of Any Multi-Drug Resistant Organisms: None Reported Past Surgical History: Bariatric Surgery, Cholecystectomy, Hysterectomy, Tubal Ligation, Uterine Ablation Additional Past Surgical History / Comment(s): LEEP PROCEDURE X 2 r/t cervical dysplasia, EGD, BACK INJECTIONS FOR PAIN. The patient has also undergone thoracic/thoracoscopic wedge biopsy of the right lung. 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; R and Y bypass at [facility] 2018, TRACHEOSTOMY-RESOLVED Past Anesthesia/Blood Transfusion Reactions: Motion Sickness Additional Past Anesthesia/Blood Transfusion Reaction / Comment(s): no problem w/blood transfusion Past Psychological History: Anxiety, Depression Smoking Status: Current every day smoker Past Alcohol Use History: None Reported Past Drug Use History: None Reported - Past Family History Sister(s) Family Medical History: Cancer Additional Family Medical History / Comment(s): ovarian Mother Additional Family Medical History / Comment(s): breast cancer Father Family Medical History: COPD, CVA/TIA, Myocardial Infarction ([place]) Additional Family Medical History / Comment(s): HEART PROBLEMS, AT AGE 64 General Exam Limitations: no limitations General appearance: alert, in no apparent distress Head exam: Present: atraumatic, normocephalic, normal inspection Eye exam: Present: normal appearance, PERRL, EOMI. Absent: scleral icterus, conjunctival injection, periorbital swelling Respiratory exam: Present: normal lung sounds bilaterally. Absent: respiratory distress, wheezes, rales, rhonchi, stridor Cardiovascular Exam: Present: regular rate, normal rhythm Neurological exam: Present: alert, oriented X3, CN II-XII intact Expanded Cerebellar function: Finger to Nose: Normal, Heel to Bolden: Normal, Romberg: Normal Motor strength exam: RUE: 5, LUE: 5, RLE: 5, LLE: 5 Psychiatric exam: Present: normal affect, normal mood Skin exam: Present: warm, dry, intact, normal color. Absent: rash Course Vital Signs 08/12/24 08/12/24 08/12/24 13:39 14:26 16:46 Temperature 97.3 F L Pulse Rate 105 H 96 86 Respiratory 17 17 16 Rate Blood Pressure 130/71 112/83 145/98 O2 Sat by Pulse 98 100 96 Oximetry Medical Decision Making - Medical Decision Making This is a 49-year-old female who presents to the emergency department for h eadaches and neck pain. Was pt. sent in by a medical professional or institution? @ -No Did you speak to anyone other than the patient for history? @ -No Did you review nursing and triage notes? @ -Yes, and I agree, it is accurate with regards to the patient's symptoms. Were old charts reviewed? @ -No Differential Diagnosis? @ -Differential Headache: Migraine, tension, cluster, carbon monoxide, central venous thrombosis, pension karma temporal arteritis, acute closure glaucoma, intercranial hemorrhage, mastoiditis, sinusitis, head injury, this is not meant to be an all-inclusive list. EKG interpreted by me (3pts min.)? @ -Not obtained X-rays interpreted by me (1pt min.)? @ -Not obtained CT interpreted by me (1pt min.)? @ -Not obtained U/S interpreted by me (1pt. min.)? @ -Not obtained What testing was considered but not performed? (CT, X-rays, U/S, labs)? Why? @ -None What meds were considered but not given? Why? @ -None Did you discuss the management of the patient with other professionals? @ -No Did you reconcile home meds? @ -No Was smoking cessation discussed for >3mins.? @ -No Was critical care preformed (if so, how long)? @ -No Were there social determinants of health that impacted care today? How? (Homelessness, low income, unemployed, alcoholism, drug addiction, transportation, low edu. Level, literacy, decrease access to med. care, half-way, rehab)? @ -No Was there de-escalation of care discussed even if they declined? (Discuss DNR or withdrawal of care, Hospice)? @ -No What co-morbidities impacted this encounter? (DM, HTN, Smoking, COPD, CAD, Cancer, CVA, Hep., AIDS, mental health diagnosis, sleep apnea, morbid obesity)? @ -MS Was patient admitted / discharged? @ -Discharged. Lab work demonstrates leukocytosis and is otherwise unremarkable. Leukocytosis is a chronic and ongoing finding for the patient. She also has no signs of infection and symptoms are consistent with a typical MS flareup. Urinalysis negative for signs of infection. COVID, influenza, and RSV testing negative. Symptoms well-controlled in the emergency department. She was concerned about going home and having the pain return. She is supposed to be on Percocet for pain control. However, states that she left this at her daughter's house and does not believe she will be able to get it back for several days. Advised that we can do something like a fentanyl patch in the emergency department to last for 72 hours to try to get her through for the next few days. Patient was in agreement with this. 25 mcg fentanyl patch applied. Prescription for prednisone provided as well for MS exacerbation. Advised she try to reach her daughter to get her medication back as well. Patient discharged in stable condition. Case discussed with ED attending, Dr. Sylvester. Return precautions reviewed in depth, the patient is instructed to return to the emergency department with any new, worsening, or concerning symptoms. Patient verbalized understanding. Undiagnosed new problem with uncertain prognosis? @ -None Drug Therapy requiring intensive monitoring for toxicity (Heparin, Nitro, Insulin, Cardizem)? @ -None Were any procedures done? @ -None Diagnosis/symptom? @ -Headache Acute, or Chronic, or Acute on Chronic? @ -Acute Uncomplicated (without systemic symptoms) or Complicated (systemic symptoms)? @ -Uncomplicated Side effects of treatment? @ -None Exacerbation, Progression, or Severe Exacerbation] @ -Not applicable Poses a threat to life or bodily function? @ -No - Lab Data Result diagrams: 08/12/24 14:26 08/12/24 14:26 Lab Results 08/12/24 08/12/24 08/12/24 Range/Units 14:26 14:26 14: WBC 21.73 H (4.50-10.00) 10*3/uL RBC 4.83 (4.10-5.20) 10*6/uL Hgb 15.2 H (12.0-15.0) g/dL Hct 46.3 (37.2-46.3) % MCV 95.9 (80.0-97.0) fL MCH 31.5 (27.0-32.0) pg MCHC 32.8 (32.0-37.0) g/dL Plt Count 705 H (140-440) 10*3/uL MPV 8.1 L (9.5-12.2) fL Immature Gran % (Auto) 1.5 % Neutrophils % 76.9 % Lymphocytes % 11.0 % Monocytes % 7.3 % Eosinophils % 2.6 % Basophils % 0.7 % Immature Gran # 0.33 H (0.00-0.04) 10*3/uL Neutrophils # 16.68 H (1.80-7.70) 10*3/uL Lymphocytes # 2.40 (0.90-5.00) 10*3/uL Monocytes # 1.59 H (0.20-1.00) 10*3/uL Eosinophils # 0.57 H (0.04-0.35) 10*3/uL Basophils # 0.16 H (0.00-0.10) 10*3/uL Sodium 140 (137-145) mmol/L Potassium 5.1 (3.5-5.1) mmol/L Chloride 107 (98-107) mmol/L Carbon Dioxide 26 (22-30) mmol/L Anion Gap 7 mmol/L BUN 14 (7-17) mg/dL Creatinine 0.73 (0.52-1.04) mg/dL Est GFR (CKD-EPI)AfAm >90 (>60 ml/min/1.73 sqM) Est GFR (CKD-EPI)NonAf >90 (>60 ml/min/1.73 sqM) Glucose 78 (74-99) mg/dL Plasma Lactic Acid Miguel Angel 1.1 (0.7-2.0) mmol/L Calcium 9.4 (8.4-10.2) mg/dL Magnesium 2.0 (1.6-2.3) mg/dL Total Bilirubin 0.7 (0.2-1.3) mg/dL AST 73 H (14-36) U/L ALT 32 (4-34) U/L Alkaline Phosphatase 138 H (38-126) U/L C-Reactive Protein <0.5 (<1.0) mg/dL Total Protein 7.1 (6.3-8.2) g/dL Albumin 4.1 (3.5-5.0) g/dL Urine Color Urine Appearance (Clear) Urine pH (5.0-8.0) Ur Specific [place] (1.001-1.035) Urine Protein (Negative) Urine Glucose (UA) (Negative) Urine Ketones (Negative) Urine Blood (Negative) Urine Nitrite (Negative) Urine Bilirubin (Negative) Urine Urobilinogen (<2.0) mg/dL Ur Leukocyte Esterase (Negative) Urine WBC (0-5) /hpf Ur Squamous Epith Cells (0-4) /hpf Urine Mucus (None) /hpf Influenza Type A (PCR) (Not Detectd) Influenza Type B (PCR) (Not Detectd) RSV (PCR) (Not Detectd) SARS-CoV-2 (PCR) (Not Detectd) 08/12/24 08/12/24 Range/Units 16:39 16:48 WBC (4.50-10.00) 10*3/uL RBC (4.10-5.20) 10*6/uL Hgb (12.0-15.0) g/dL Hct (37.2-46.3) % MCV (80.0-97.0) fL MCH (27.0-32.0) pg MCHC (32.0-37.0) g/dL Plt Count (140-440) 10*3/uL MPV (9.5-12.2) fL Immature Gran % (Auto) % Neutrophils % % Lymphocytes % % Monocytes % % Eosinophils % % Basophils % % Immature Gran # (0.00-0.04) 10*3/uL Neutrophils # (1.80-7.70) 10*3/uL Lymphocytes # (0.90-5.00) 10*3/uL Monocytes # (0.20-1.00) 10*3/uL Eosinophils # (0.04-0.35) 10*3/uL Basophils # (0.00-0.10) 10*3/uL Sodium (137-145) mmol/L Potassium (3.5-5.1) mmol/L Chloride (98-107) mmol/L Carbon Dioxide (22-30) mmol/L Anion Gap mmol/L BUN (7-17) mg/dL Creatinine (0.52-1.04) mg/dL Est GFR (CKD-EPI)AfAm (>60 ml/min/1.73 sqM) Est GFR (CKD-EPI)NonAf (>60 ml/min/1.73 sqM) Glucose (74-99) mg/dL Plasma Lactic Acid Miguel Angel (0.7-2.0) mmol/L Calcium (8.4-10.2) mg/dL Magnesium (1.6-2.3) mg/dL Total Bilirubin (0.2-1.3) mg/dL AST (14-36) U/L ALT (4-34) U/L Alkaline Phosphatase (38-126) U/L C-Reactive Protein (<1.0) mg/dL Total Protein (6.3-8.2) g/dL Albumin (3.5-5.0) g/dL Urine Color Colorless Urine Appearance Clear (Clear) Urine pH 5.5 (5.0-8.0) Ur Specific [place] 1.008 (1.001-1.035) Urine Protein Negative (Negative) Urine Glucose (UA) Negative (Negative) Urine Ketones Negative (Negative) Urine Blood Negative (Negative) Urine Nitrite Negative (Negative) Urine Bilirubin Negative (Negative) Urine Urobilinogen <2.0 (<2.0) mg/dL Ur Leukocyte Esterase Small H (Negative) Urine WBC 1 (0-5) /hpf Ur Squamous Epith Cells 1 (0-4) /hpf Urine Mucus Rare H (None) /hpf Influenza Type A (PCR) Not Detected (Not Detectd) Influenza Type B (PCR) Not Detected (Not Detectd) RSV (PCR) Not Detected (Not Detectd) SARS-CoV-2 (PCR) Not Detected (Not Detectd) Disposition Clinical Impression: Migraine, Multiple sclerosis exacerbation Disposition: HOME SELF-CARE Instructions (If sedation given, give patient instructions): Multiple Sclerosis (DC) Additional Instructions: Return to the emergency department with any new, worsening, or concerning symptoms. Take the prednisone daily for 5 days. Remove the fentanyl patch in 72 hours. Try to reach your daughter so you can get your pain medication back. Follow up with your primary care provider in 1-2 days. Prescriptions: predniSONE 50 mg PO DAILY 5 Days #5 tab Is patient prescribed a controlled substance at d/c from ED?: No Referrals: Keven Kebede MD [Primary Care Provider] - 1-2 days Time of Disposition: 17:42
[2024-08-12] MEDS: SODIUM CHLORIDE 0.9% 1,000 ML IV ONE (14:27)
[2024-08-12] MEDS: HYDROmorphone 2 MG/ML 1 ML SYRINGE IVP STA ×2 (14:28→16:43)
[2024-08-12] MEDS: diphenhydrAMINE 50 MG/ML 1 ML VIAL IVP STA (14:28)
[2024-08-12] MEDS: methylPREDNISolone SOD SUCCI 125 MG/2 ML VIAL IV STA (14:29)
[2024-08-12 14:30] LABS: RBC 4.83 10*6/uL (4.10-5.20); WBC 21.73 10*3/uL (4.50-10.00)
[2024-08-12 14:31] LABS: Basophils # (A) 0.16 10*3/uL (0.00-0.10); Basophils % (A) 0.7 %; Eosinophils # (A) 0.57 10*3/uL (0.04-0.35); Eosinophils % (A) 2.6 %; HCT 46.3 % (37.2-46.3); HGB 15.2 g/dL (12.0-15.0); MCH 31.5 pg (27.0-32.0); MCHC 32.8 g/dL (32.0-37.0); MCV 95.9 fL (80.0-97.0); Mean Platelet Volume 8.1 fL (9.5-12.2); Monocytes # (A) 1.59 10*3/uL (0.20-1.00); Monocytes % (A) 7.3 %; Neutrophils # (A) 16.68 10*3/uL (1.80-7.70); Neutrophils % (A) 76.9 %; Platelet Count 705 10*3/uL (140-440); RDW 15.7 % (11.5-14.5)
[2024-08-12 14:47] LABS: ALT 32 U/L (4-34); African American GFR (CKD) >90 (>60 ml/min/1.73 sqM); Albumin 4.1 g/dL (3.5-5.0); Anion Gap 7 mmol/L; Blood Urea Nitrogen 14 mg/dL (7-17); Calcium 9.4 mg/dL (8.4-10.2); Carbon Dioxide 26 mmol/L (22-30); Chloride 107 mmol/L (98-107); Glucose 78 mg/dL (74-99); Non-African American GFR(CKD) >90 (>60 ml/min/1.73 sqM); Sodium 140 mmol/L (137-145); Total Bilirubin 0.7 mg/dL (0.2-1.3); Total Protein 7.1 g/dL (6.3-8.2)
[2024-08-12 14:48] LABS: Potassium 5.1 mmol/L (3.5-5.1)
[2024-08-12 14:49] LABS: AST 73 U/L (14-36); Alkaline Phosphatase 138 U/L (38-126)
[2024-08-12 15:00] LABS: C Reactive Protein <0.5 mg/dL (<1.0)
[2024-08-12 16:52] LABS: Appearance,Urine Clear (Clear); Bilirubin,Urine Negative (Negative); Blood,Urine Negative (Negative); Color,Urine Colorless; Glucose,Urine (UA) Negative (Negative); Ketones,Urine Negative (Negative); Leukocyte Esterase,Urine Small (Negative); Mucus,Urine Rare /hpf; Nitrite,Urine Negative (Negative); PH, Urine 5.5 (5.0-8.0); Protein,Urine Negative (Negative); Specific Gravity,Urine 1.008 (1.001-1.035); Squamous Epithelial Cell,Urine 1 /hpf (0-4); Urobilinogen,Urine <2.0 mg/dL (<2.0); WBC,Urine 1 /hpf (0-5)
[2024-08-12 17:29] LABS: Influenza A Not Detected (Not Detectd); Influenza B Not Detected (Not Detectd); RSV Not Detected (Not Detectd)
[2024-08-12] MEDS: ACET/COD 300 MG/30 MG STARTER PACK 6 TAB BTL PO STA (18:28)
[2024-08-12 18:35] VITALS: BP 139/96; PULSE 100; RESP 17
== END 2024-08-12 18:45 | disposition home or self-care (01) ==
LOC: EC 13:38
DX: G43.909 Migraine, unspecified, not intractable, without status migrainosus (principal); G35 Multiple sclerosis; F17.200 Nicotine dependence, unspecified, uncomplicated; Z88.1 Allergy status to other antibiotic agents; Z88.6 Allergy status to analgesic agent; Z91.030 Bee allergy status
CPT/HCPCS: 36415; 80053; 83605; 83735; 85025; 86140; 81001; 87636; 99284; 96374; 96375 ×2; 96376; 96361; J1171; J1200; J2919

== ENCOUNTER 2024-08-18 16:58 | Emergency (ER) | payer BC, MEDICARE ==
[2024-08-18 17:03] VITALS: RESP 18
[2024-08-18] MEDS: ACETAMINOPHEN TAB 325 MG TAB PO STA (17:17)
--- NOTE | 2024-08-18 17:17 | ED ---
Back Pain HPI - General Chief Complaint: Back Pain/Injury Stated Complaint: Back Pain Time Seen by Provider: 08/18/24 17:09 Source: patient, RN notes reviewed Mode of arrival: ambulatory Limitations: no limitations - History of Present Illness Initial Comments: This is a 49-year-old female with history including MS, leukemia, lung CA presenting for low back pain (01/25) 1000 today. Patient states she was lifting a heavy tote when she experienced significant pain in her lower back that has been ongoing. Patient states she attempted 40 mg of steroid, Flexeril and 2 mg Dilaudid with no relief. Patient states she is able to ambulate without lower extremity radiculopathy, saddle paresthesia or urinary incontinence/retention. MD Complaint: back pain, back injury Onset/Timin -: hour(s) Time: 10:00 Place: home Radiation: none Severity scale (1-10): 10 Quality: aching Consistency: constant Improves With: immobilization Worsens With: movement, walking Context: while lifting Associated Symptoms: denies other symptoms Treatments Prior to Arrival: other medications (P.o. steroid, Flexeril), prescription analgesics (P.o. Dilaudid 2 mg) - Related Data Home Medications Medication Instructions Recorded Confirmed Levothyroxine Sodium [Synthroid] 50 mcg PO DAILY 01/05/14 06/12/24 Pantoprazole Sodium [Protonix] 40 mg PO DAILY 05/28/18 06/12/24 Cyclobenzaprine [Flexeril] 10 mg PO BID PRN 10/29/20 06/12/24 Ofatumumab [Kesimpta Pen] 20 mg SQ Q30D 02/12/22 06/12/24 Albuterol Sulfate [Albuterol 2 puff INHALATION RT-Q6H PRN 02/19/23 06/12/24 Sulfate Hfa] Pravastatin Sodium [Pravachol] 40 mg PO DAILY@1700 08/21/23 06/12/24 LORazepam [Ativan] 0.5 mg PO BID PRN 01/18/24 06/12/24 Nicotine 21Mg/24Hr Patch [Habitrol] 1 patch TRANSDERM DAILY PRN 01/18/24 06/12/24 oxyCODONE-APAP 10-325MG [Percocet 1 tab PO Q6HR PRN 01/18/24 06/12/24 10-325 mg] Fluticasone/Umeclidin/Vilanter 1 puff INHALATION RT-DAILY 03/22/24 06/12/24 [Trelegy Ellipta 100-62.5-25] Losartan [Cozaar] 25 mg PO DAILY 03/22/24 06/12/24 valACYclovir HCL [Valacyclovir] 2,000 mg PO DAILY PRN 03/22/24 06/12/24 Albuterol Nebulized [Ventolin 2.5 mg INHALATION RT-QID PRN 06/02/24 06/12/24 Nebulized] Gabapentin 600 mg PO TID 06/02/24 06/12/24 Metoprolol Succinate (ER) [Toprol 100 mg PO DAILY 06/02/24 06/12/24 XL] Amoxic-Pot Clav 875-125Mg 1 tab PO BID 06/12/24 06/12/24 [Augmentin 875-125] Previous Rx's Medication Instructions Recorded Aspirin 325 mg PO DAILY #30 tab 02/14/24 Oseltamivir [Tamiflu] 75 mg PO Q12HR #10 cap 06/16/24 methylPREDNISolone Dose Pack 24 mg PO DAILY #1 tab 06/16/24 [Medrol Dose Pack] predniSONE 50 mg PO DAILY 5 Days #5 tab 08/12/24 Cyclobenzaprine [Flexeril] 10 mg PO Q8H PRN #15 tab 08/18/24 Allergies Allergy/AdvReac Type Severity Reaction Status Date / Time bee venom protein (honey bee) Allergy SWELLING , Verified 08/18/24 17:03 AND ITCHING Bleach (Sodium Hypochlorite) Allergy Rash/Hives Verified 08/18/24 17:03 nitrofurantoin Allergy Rash/Hives Verified 08/18/24 17:03 [From Macrobid] nitrofurantoin Allergy Rash/Hives Verified 08/18/24 17:03 macrocrystalline [From Macrobid] moxifloxacin [From Avelox] AdvReac Nausea & Verified 08/18/24 17:03 Vomiting NSAIDS (Non-Steroidal AdvReac Had Verified 08/18/24 17:03 Anti-Inflamma gastric sleeve surgery, causes bleeds. seasonal allergies Allergy congestion Uncoded 08/18/24 17:03 and sneezing Review of Systems ROS Statement: Those systems with pertinent positive or pertinent negative responses have been documented in the HPI. ROS Other: All systems not noted in ROS Statement are negative. Past Medical History Past Medical History: Asthma, Cancer, COPD, CVA/TIA, GERD/Reflux, Hypertension, Musculoskeletal Disorder, Neurologic Disorder, Sleep Apnea/CPAP/BIPAP, Thyroid Disorder Additional Past Medical History / Comment(s): smoking-related interstitial lung disease, doesn't use CPAP, history of seizure at the age of 16 related to med. to stop breast milk, endometriosis, chronic back pain, plantar fasciitis, hx. of Achilles tendinitis, probably antibiotic induced. She also has history of hypothyroidism, ALLERGIC rhinitis, migraines, uses oxygen 2L prn, recent iron infusion, MS , tia 2020 no residual issues, tinnitus, balance issues, Migraine. Dx. w/ leukemia, 10/2023, Diagnosed with lung cancer 2023 History of Any Multi-Drug Resistant Organisms: None Reported Past Surgical History: Bariatric Surgery, Cholecystectomy, Hysterectomy, Tubal Ligation, Uterine Ablation Additional Past Surgical History / Comment(s): LEEP PROCEDURE X 2 r/t cervical dysplasia, EGD, BACK INJECTIONS FOR PAIN. The patient has also undergone thoracic/thoracoscopic wedge biopsy of the right lung. 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; R and Y bypass at [facility] 2019, TRACHEOSTOMY-RESOLVED Past Anesthesia/Blood Transfusion Reactions: Motion Sickness Additional Past Anesthesia/Blood Transfusion Reaction / Comment(s): no problem w/blood transfusion Past Psychological History: Anxiety, Depression Smoking Status: Current every day smoker Past Alcohol Use History: None Reported Past Drug Use History: None Reported - Past Family History Sister(s) Family Medical History: Cancer Additional Family Medical History / Comment(s): ovarian Mother Additional Family Medical History / Comment(s): breast cancer Father Family Medical History: COPD, CVA/TIA, Myocardial Infarction (ID) Additional Family Medical History / Comment(s): HEART PROBLEMS, AT AGE 64 General Exam Limitations: no limitations General appearance: alert, in no apparent distress Head exam: Present: atraumatic, normocephalic, normal inspection Eye exam: Present: normal appearance, PERRL, EOMI. Absent: scleral icterus, conjunctival injection, periorbital swelling ENT exam: Present: normal exam, mucous membranes moist Neck exam: Present: normal inspection. Absent: tenderness, meningismus, lymphadenopathy Respiratory exam: Present: normal lung sounds bilaterally. Absent: respiratory distress, wheezes, rales, rhonchi, stridor Cardiovascular Exam: Present: regular rate, normal rhythm, normal heart sounds. Absent: systolic murmur, diastolic murmur, rubs, gallop, clicks GI/Abdominal exam: Present: soft, normal bowel sounds. Absent: distended, tenderness, guarding, rebound, rigid Extremities exam: Present: normal inspection, full ROM, normal capillary refill. Absent: tenderness, pedal edema, joint swelling, calf tenderness Back exam: Present: paraspinal tenderness (Positive left paralumbar point tenderness), vertebral tenderness (Positive L4/L5 tenderness without crepitus or step-off) Neurological exam: Present: alert, oriented X3, CN II-XII intact Psychiatric exam: Present: normal affect, normal mood Skin exam: Present: warm, dry, intact, normal color. Absent: rash Course Vital Signs 08/18/24 17:01 Temperature 97.7 F Pulse Rate 107 H Respiratory 18 Rate Blood Pressure 177/107 O2 Sat by Pulse 95 Oximetry Medical Decision Making - Medical Decision Making Was pt. sent in by a medical professional or institution (, PA, PRINTMAKER, urgent care, hospital, or detention...) When possible be specific @ -[No] Did you speak to anyone other than the patient for history (EMS, parent, family, police, friend...)? What history was obtained from this source @ -[No] Did you review nursing and triage notes (agree or disagree)? Why? @ -[I reviewed and agree with nursing and triage notes] Were old charts reviewed (outside hosp., previous admission, EMS record, old EKG, old radiological studies, urgent care reports/EKG's, detention records)? Report findings @ -[No old charts were reviewed] Differential Diagnosis (chest pain, altered mental status, abdominal pain women, abdominal pain men, vaginal bleeding, weakness, fever, dyspnea, syncope, headache, dizziness, GI bleed, back pain, seizure, CVA, palpatations, mental health, musculoskeletal)? @ -Differential Back Pain: Strain, zoster, cauda equina syndrome, epidural abscess, vertebral osteomyelitis, discitis, fracture, subluxation, disc herniation, DJD, spinal stenosis, dissection, AAA, pancreatitis, peptic ulcer disease, pyelonephritis, kidney stone, this is not meant to be an all-inclusive list. EKG interpreted by me (3pts min.). @ -Not done X-rays interpreted by me (1pt min.). @ -[None done] CT interpreted by me (1pt min.). @ -[None done] U/S interpreted by me (1pt. min.). @ -[None done] What testing was considered but not performed or refused? (CT, X-rays, U/S, labs)? Why? @ -[None] What meds were considered but not given or refused? Why? @ -[None] Did you discuss the management of the patient with other professionals (professionals i.e. , PA, PRINTMAKER, lab, RT, psych nurse, neonatal social worker, honing machine operator semiautomatic, teacher, armoured corps officer, supervisor case loading)? Give summary @ -[No] Was smoking cessation discussed for >3mins.? @ -[No] Was critical care preformed (if so, how long)? @ -[No] Were there social determinants of health that impacted care today? How? (Homelessness, low income, unemployed, alcoholism, drug addiction, tra nsportation, low edu. Level, literacy, decrease access to med. care, long-term, rehab)? @ -[No] Was there de-escalation of care discussed even if they declined (Discuss DNR or withdrawal of care, Hospice)? DNR status @ -[No] What co-morbidities impacted this encounter? (DM, HTN, Smoking, COPD, CAD, Cancer, CVA, ARF, Chemo, Hep., AIDS, mental health diagnosis, sleep apnea, morbid obesity)? @ -[None] Was patient admitted / discharged? Hospital course, mention meds given and route, prescriptions, significant lab abnormalities, going to OR and other pertinent info. @ -[hospital course] Undiagnosed new problem with uncertain prognosis? @ -[No] Drug Therapy requiring intensive monitoring for toxicity (Heparin, Nitro, Insulin, Cardizem)? @ -[No] Were any procedures done? @ -[No] Diagnosis/symptom? @ -[default] Acute, or Chronic, or Acute on Chronic? @ -Acute Uncomplicated (without systemic symptoms) or Complicated (systemic symptoms)? @ -Uncomplicated Side effects of treatment? @ -[No] Exacerbation, Progression, or Severe Exacerbation? @ -[No] Poses a threat to life or bodily function? How? (Chest pain, USA, ID, pneumonia, PE, COPD, DKA, ARF, appy, cholecystitis, CVA, Diverticulitis, Homicidal, Suicidal, threat to staff... and all critical care pts) @ -[No] Disposition Clinical Impression: Mechanical back pain Disposition: HOME SELF-CARE Condition: Good Instructions (If sedation given, give patient instructions): Acute Low Back Pain (ED) Additional Instructions: Ice affected area for 10 minutes up to 4 times daily. Follow-up with PCP in the next 24-48 hours for any ongoing or worsening pain. Return to ER if experiencing numbness between thighs, urinary incontinence/retention or inability to walk. Prescriptions: Cyclobenzaprine [Flexeril] 10 mg PO Q8H PRN #15 tab PRN Reason: Spasms Is patient prescribed a controlled substance at d/c from ED?: No Referrals: Keven Kebede MD [Primary Care Provider] - 1-2 days Time of Disposition: 19:35
[2024-08-18] MEDS: MORPHINE SULFATE 4 MG/ML SYRINGE IM STA (17:18)
[2024-08-18] MEDS: LIDOCAINE 4% PATCH TOPICAL ONE (17:18)
--- NOTE | 2024-08-18 17:43 | XR ---
EXAMINATION TYPE: XR lumbosacral spine min 4V DATE OF EXAM: 08/18/2024 5:36 PM COMPARISON: None. CLINICAL INDICATION: Female, 49 years old with history of Severe back pain, TECHNIQUE: Frontal, lateral, and oblique images of the lumbar spine are obtained. FINDINGS: There are 5 lumbar type vertebral bodies identified. The lumbar spine shows satisfactory alignment without evidence of acute fracture or dislocation. Vertebral body heights are within normal limits. Moderate degenerative disc space narrowing at L3-4, L4-5 and L5-S1. Mild facet joint arthrop athy. Normal alignment. Postoperative changes left upper quadrant. IMPRESSION: No acute fracture or dislocation is seen in the lumbar spine.ICD 10 NO FRACTURE, INITIAL EVALUATION [facility], , 08/18/2024 5:41 PM
[2024-08-18] MEDS: HYDROmorphone 0.5 MG/0.5 ML SYRINGE IM STA (18:38)
[2024-08-18] MEDS: ACET/COD 300 MG/30 MG STARTER PACK 6 TAB BTL PO STA (19:41)
[2024-08-18 19:45] VITALS: BP 162/98; PULSE 102; TEMP 98.1
== END 2024-08-18 19:45 | disposition home or self-care (01) ==
LOC: EC 16:58
DX: M54.59 Other low back pain (principal); F17.200 Nicotine dependence, unspecified, uncomplicated; Z88.1 Allergy status to other antibiotic agents; Z88.6 Allergy status to analgesic agent; Z91.030 Bee allergy status; Z91.048 Other nonmedicinal substance allergy status; X50.0XXA Overexertion from strenuous movement or load, initial encounter
CPT/HCPCS: 72110; 99283; 96372; J2270; J1171

== ENCOUNTER 2024-09-28 13:35 | Emergency (ER) | payer BC, OTHER ==
--- NOTE | 2024-09-28 14:08 | ED ---
Headache HPI - General Chief Complaint: Headache Stated Complaint: Migraine, SOB Time Seen by Provider: 09/28/24 13:50 Source: patient, RN notes reviewed Mode of arrival: ambulatory Limitations: no limitations - History of Present Illness Initial Comments: This is a 49-year-old female with a history of migraines and MS presenting to emergency room with complaints of migraine headache. Patient states that symptoms feel same as when she has had migraines in the past. Denies fevers, chills, chest pain, difficulty breathing. She denies visual disturbances, neck pain, cough, rhinorrhea, or congestion. - Related Data Home Medications Medication Instructions Recorded Confirmed Levothyroxine Sodium [Synthroid] 50 mcg PO DAILY 01/05/14 08/29/24 Pantoprazole Sodium [Protonix] 40 mg PO DAILY 05/28/18 08/29/24 Albuterol Sulfate [Albuterol 2 puff INHALATION RT-Q6H PRN 02/19/23 08/29/24 Sulfate Hfa] Pravastatin Sodium [Pravachol] 40 mg PO HS 08/21/23 08/29/24 LORazepam [Ativan] 0.5 mg PO BID PRN 01/18/24 08/29/24 Nicotine 21Mg/24Hr Patch [Habitrol] 1 patch TRANSDERM DAILY PRN 01/18/24 08/29/24 oxyCODONE-APAP 10-325MG [Percocet 1 tab PO QID 01/18/24 08/29/24 10-325 mg] Fluticasone/Umeclidin/Vilanter 1 puff INHALATION RT-DAILY 03/22/24 08/29/24 [Trelelio Ellipta 100-62.5-25] Losartan [Cozaar] 25 mg PO HS 03/22/24 08/29/24 valACYclovir HCL [Valacyclovir] 2,000 mg PO DAILY PRN 03/22/24 08/29/24 Albuterol Nebulized [Ventolin 2.5 mg INHALATION RT-QID PRN 06/02/24 08/29/24 Nebulized] Gabapentin 600 mg PO TID 06/02/24 08/29/24 Metoprolol Succinate (ER) [Toprol 100 mg PO HS 06/02/24 08/29/24 XL] Cyclobenzaprine [Flexeril] 5 mg PO BID PRN 08/29/24 08/29/24 Ergocalciferol [Vitamin D2 (1250 1,250 mcg PO STEWART 08/29/24 08/29/24 Mcg = 43460 Iu)] Famotidine [Pepcid] 20 mg PO DAILY 08/29/24 08/29/24 Fluconazole [Diflucan] 100 mg PO DAILY 08/29/24 08/29/24 Furosemide [Lasix] 20 mg PO DAILY PRN 08/29/24 08/29/24 Ipratropium-Albuterol Nebulize 3 ml INHALATION RT-QID 08/29/24 08/29/24 [Duoneb 0.5 mg-3 mg/3 ml Soln] Montelukast [Singulair] 10 mg PO HS 08/29/24 08/29/24 Promethazine HCl [Phenergan Syrup] 25 mg PO DAILY PRN 08/29/24 08/29/24 Risedronate Sodium [Actonel] 35 mg PO DIRECTED 08/29/24 08/29/24 predniSONE See Taper PO DAILY 08/29/24 08/29/24 Previous Rx's Medication Instructions Recorded Cyclobenzaprine [Flexeril] 10 mg PO Q8H PRN #15 tab 08/18/24 methylPREDNISolone Dose Pack 24 mg PO DAILY #1 dispenser 09/01/24 [Medrol Dose Pack] Ofatumumab [Kesimpta Pen] 20 mg SQ Q30D #1 each 09/17/24 Allergies Allergy/AdvReac Type Severity Reaction Status Date / Time bee venom protein (honey bee) Allergy SWELLING , Verified 09/28/24 13:42 AND ITCHING Bleach (Sodium Hypochlorite) Allergy Rash/Hives Verified 09/28/24 13:42 nitrofurantoin Allergy Rash/Hives Verified 09/28/24 13:42 [From Macrobid] nitrofurantoin Allergy Rash/Hives Verified 09/28/24 13:42 macrocrystalline [From Macrobid] moxifloxacin [From Avelox] AdvReac Nausea & Verified 09/28/24 13:42 Vomiting NSAIDS (Non-Steroidal AdvReac Had Verified 09/28/24 13:42 Anti-Inflamma gastric sleeve surgery, causes bleeds. seasonal allergies Allergy congestion Uncoded 09/28/24 13:42 and sneezing Review of Systems ROS Statement: Those systems with pertinent positive or pertinent negative responses have been documented in the HPI. ROS Other: All systems not noted in ROS Statement are negative. Past Medical History Past Medical History: Asthma, Cancer, COPD, CVA/TIA, GERD/Reflux, Hypertension, Musculoskeletal Disorder, Neurologic Disorder, Sleep Apnea/CPAP/BIPAP, Thyroid Disorder Additional Past Medical History / Comment(s): smoking-related interstitial lung disease, doesn't use CPAP, history of seizure at the age of 16 related to med. to stop breast milk, endometriosis, chronic back pain, plantar fasciitis, hx. of Achilles tendinitis, probably antibiotic induced. She also has history of hypothyroidism, ALLERGIC rhinitis, migraines, uses oxygen 2L prn, recent iron infusion, MS , tia 2020 no residual issues, tinnitus, balance issues, Migraine. Dx. w/ leukemia, 10/2023, Diagnosed with lung cancer 2023 History of Any Multi-Drug Resistant Organisms: None Reported Past Surgical History: Bariatric Surgery, Cholecystectomy, Hysterectomy, Tubal Ligation, Uterine Ablation Additional Past Surgical History / Comment(s): LEEP PROCEDURE X 2 r/t cervical dysplasia, EGD, BACK INJECTIONS FOR PAIN. The patient has also undergone thoracic/thoracoscopic wedge biopsy of the right lung. 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; R and Y bypass at [facility] 2019, TRACHEOSTOMY-RESOLVED Past Anesthesia/Blood Transfusion Reactions: Motion Sickness Additional Past Anesthesia/Blood Transfusion Reaction / Comment(s): no problem w/blood transfusion Past Psychological History: Anxiety, Depression Smoking Status: Current every day smoker Past Alcohol Use History: None Reported Past Drug Use History: None Reported - Past Family History Sister(s) Family Medical History: Cancer Additional Family Medical History / Comment(s): ovarian Mother Additional Family Medical History / Comment(s): breast cancer Father Family Medical History: COPD, CVA/TIA, Myocardial Infarction (PR) Additional Family Medical History / Comment(s): HEART PROBLEMS, AT AGE 64 General Exam - General Exam Comments Initial Comments: Visual Physical Exam Vital signs reviewed General: Well-appearing, nontoxic, no acute distress. Head: Normocephalic, atraumatic Eyes: PERRLA, EOMI ENT: Airway patent Chest: Nonlabored breathing Skin: No visual rash, normal skin tone Neuro: Alert and oriented 3 Musculoskeletal: No gross abnormalities Limitations: no limitations Head exam: Present: atraumatic, normocephalic, normal inspection ENT exam: Present: normal exam, mucous membranes moist Neck exam: Present: normal inspection. Absent: tenderness, meningismus, lymphadenopathy Respiratory exam: Present: normal lung sounds bilaterally. Absent: respiratory distress, wheezes, rales, rhonchi, stridor Cardiovascular Exam: Present: regular rate, normal rhythm, normal heart sounds. Absent: systolic murmur, diastolic murmur, rubs, gallop, clicks GI/Abdominal exam: Present: soft, normal bowel sounds. Absent: distended, tenderness, guarding, rebound, rigid Extremities exam: Present: normal inspection, full ROM, normal capillary refill. Absent: tenderness, pedal edema, joint swelling, calf tenderness Back exam: Present: normal inspection Neurological exam: Present: alert, oriented X3, CN II-XII intact Course Vital Signs 09/28/24 09/28/24 13:40 16:24 Temperature 98.4 F 98.4 F Pulse Rate 93 82 Respiratory 20 20 Rate Blood Pressure 143/82 135/90 O2 Sat by Pulse 99 97 Oximetry Medical Decision Making - Medical Decision Making Was pt. sent in by a medical professional or institution (, PA, DIFFUSION OPERATOR, urgent care, hospital, or fpc...) When possible be specific @ -No Did you speak to anyone other than the patient for history (EMS, parent, family, police, friend...)? What history was obtained from this source @ -No Did you review nursing and triage notes (agree or disagree)? Why? @ -I reviewed and agree with nursing and triage notes Were old charts reviewed (outside hosp., previous admission, EMS record, old EKG, old radiological studies, urgent care reports/EKG's, fpc records)? Report findings @ -No old charts were reviewed Differential Diagnosis (chest pain, altered mental status, abdominal pain women, abdominal pain men, vaginal bleeding, weakness, fever, dyspnea, syncope, headache, dizziness, GI bleed, back pain, seizure, CVA, palpatations, mental health, musculoskeletal)? @ -Differential Headache: Migraine, tension, cluster, carbon monoxide, central venous thrombosis, pension karma temporal arteritis, acute closure glaucoma, intercranial hemorrhage, mastoiditis, sinusitis, head injury, this is not meant to be an all-inclusive list. EKG interpreted by me (3pts min.). @ -As above X-rays interpreted by me (1pt min.). @ -None CT interpreted by me (1pt min.). @ -None done U/S interpreted by me (1pt. min.). @ -None done What testing was considered but not performed or refused? (CT, X-rays, U/S, labs)? Why? @ -None What meds were considered but not given or refused? Why? @ -None Did you discuss the management of the patient with other professionals (professionals i.e. , PA, DIFFUSION OPERATOR, lab, RT, psych nurse, social service technician, technician preventative medicine, teacher, chairman & chief executive officer, comp field case manager)? Give summary @ -No Was smoking cessation discussed for >3mins.? @ -No Was critical care preformed (if so, how long)? @ -No Were there social determinants of health that impacted care today? How? (Homelessness, low income, unemployed, alcoholism, drug addiction, transportation, low edu. Level, literacy, decrease access to med. care, senior living, r ehab)? @ -No Was there de-escalation of care discussed even if they declined (Discuss DNR or withdrawal of care, Hospice)? DNR status @ -No What co-morbidities impacted this encounter? (DM, HTN, Smoking, COPD, CAD, Cancer, CVA, ARF, Chemo, Hep., AIDS, mental health diagnosis, sleep apnea, morbid obesity)? @ -None Was patient admitted / discharged? Hospital course, mention meds given and route, prescriptions, significant lab abnormalities, going to OR and other pertinent info. @ -[Discharge. 49-year-old female presenting emergency room with complaints of migraine headache. Patient is well-known emergency department presenting with headache. Patient states that symptoms are same as when she has had migraines in the past. Patient's pain is markedly improved after medication. Is stable for discharge. Case discussed with Dr. Rivas Undiagnosed new problem with uncertain prognosis? @ -No Drug Therapy requiring intensive monitoring for toxicity (Heparin, Nitro, Insulin, Cardizem)? @ -No Were any procedures done? @ -No Diagnosis/symptom? @ -migraine headache Acute, or Chronic, or Acute on Chronic? @ -acute Uncomplicated (without systemic symptoms) or Complicated (systemic symptoms)? @ -uncomplicated Side effects of treatment? @ -No Exacerbation, Progression, or Severe Exacerbation? @ -No Poses a threat to life or bodily function? How? (Chest pain, USA, PR, pneumonia, PE, COPD, DKA, ARF, appy, cholecystitis, CVA, Diverticulitis, Homicidal, Suicidal, threat to staff... and all critical care pts) @ -No Disposition Clinical Impression: Chronic migraine Disposition: HOME SELF-CARE Condition: Stable Instructions (If sedation given, give patient instructions): Migraine Headache (ED) Additional Instructions: Please return to the Emergency Department if symptoms worsen or any other concerns. Is patient prescribed a controlled substance at d/c from ED?: No Referrals: Keven Kebede MD [Primary Care Provider] - 1-2 days Time of Disposition: 18:06
[2024-09-28] MEDS: diphenhydrAMINE 50 MG/ML 1 ML VIAL IVP STA (17:28)
[2024-09-28] MEDS: HYDROmorphone 1 MG/ML 1 ML SYRINGE IVP STA (17:29)
[2024-09-28] MEDS: methylPREDNISolone SOD SUCCI 125 MG/2 ML VIAL IV STA (17:31)
[2024-09-28 18:23] VITALS: BP 154/90; PULSE 88; RESP 18; TEMP 98.6
== END 2024-09-28 18:24 | disposition home or self-care (01) ==
LOC: EC 13:35
DX: G43.909 Migraine, unspecified, not intractable, without status migrainosus (principal); F17.200 Nicotine dependence, unspecified, uncomplicated; Z91.030 Bee allergy status; Z88.1 Allergy status to other antibiotic agents; Z88.6 Allergy status to analgesic agent; Z88.8 Allergy status to other drugs, medicaments and biological substances
CPT/HCPCS: 99283; 96374; 96375 ×2; J1200; J1171; J2919

== ENCOUNTER 2024-10-08 19:54 | Emergency (ER) | payer MEDICARE, BC ==
[2024-10-08 20:01] VITALS: TEMP 98.7
--- NOTE | 2024-10-08 20:19 | ED ---
General Adult HPI - General Source: patient, RN notes reviewed Mode of arrival: ambulatory <Linsey Stoddard - Last Filed: 10/08/24 20:18> - General Source: patient, RN notes reviewed, old records reviewed Mode of arrival: ambulatory Limitations: no limitations - History of Present Illness -: days(s) Location: head Severity scale (1-10): 3 Quality: aching Consistency: constant Improves with: none Worsens with: none Associated Symptoms: denies other symptoms <Ganesh Sylvester - Last Filed: 10/09/24 00:53> - General Chief complaint: Headache Stated complaint: Migraine Time Seen by Provider: 10/08/24 20:19 - History of Present Illness Initial comments: Patient note: 49-year-old female presents to the emergency department for evaluation of headache. Reports that this been going on for the past 3 days. She notes a history of MS and has frequent headaches from this. Reports that this is consistent with prior episodes. (Linsey Stoddard) This is a 49-year-old female with known history of headaches migraine headaches related to MS. Patient has severe uncontrolled migraine headaches for 3 days with nausea no vomiting. No fevers no recent head trauma (Ganesh Sylvester) - Related Data Home Medications Medication Instructions Recorded Confirmed Levothyroxine Sodium [Synthroid] 50 mcg PO DAILY 01/05/14 08/29/24 Pantoprazole Sodium [Protonix] 40 mg PO DAILY 05/28/18 08/29/24 Albuterol Sulfate [Albuterol 2 puff INHALATION RT-Q6H PRN 02/19/23 08/29/24 Sulfate Hfa] Pravastatin Sodium [Pravachol] 40 mg PO HS 08/21/23 08/29/24 LORazepam [Ativan] 0.5 mg PO BID PRN 01/18/24 08/29/24 Nicotine 21Mg/24Hr Patch [Habitrol] 1 patch TRANSDERM DAILY PRN 01/18/24 08/29/24 oxyCODONE-APAP 10-325MG [Percocet 1 tab PO QID 01/18/24 08/29/24 10-325 mg] Fluticasone/Umeclidin/Vilanter 1 puff INHALATION RT-DAILY 03/22/24 08/29/24 [Trelegy Ellipta 100-62.5-25] Losartan [Cozaar] 25 mg PO HS 03/22/24 08/29/24 valACYclovir HCL [Valacyclovir] 2,000 mg PO DAILY PRN 03/22/24 08/29/24 Albuterol Nebulized [Ventolin 2.5 mg INHALATION RT-QID PRN 06/02/24 08/29/24 Nebulized] Gabapentin 600 mg PO TID 06/02/24 08/29/24 Metoprolol Succinate (ER) [Toprol 100 mg PO HS 06/02/24 08/29/24 XL] Cyclobenzaprine [Flexeril] 5 mg PO BID PRN 08/29/24 08/29/24 Ergocalciferol [Vitamin D2 (1250 1,250 mcg PO STEWART 08/29/24 08/29/24 Mcg = 29681 Iu)] Famotidine [Pepcid] 20 mg PO DAILY 08/29/24 08/29/24 Fluconazole [Diflucan] 100 mg PO DAILY 08/29/24 08/29/24 Furosemide [Lasix] 20 mg PO DAILY PRN 08/29/24 08/29/24 Ipratropium-Albuterol Nebulize 3 ml INHALATION RT-QID 08/29/24 08/29/24 [Duoneb 0.5 mg-3 mg/3 ml Soln] Montelukast [Singulair] 10 mg PO HS 08/29/24 08/29/24 Promethazine HCl [Phenergan Syrup] 25 mg PO DAILY PRN 08/29/24 08/29/24 Risedronate Sodium [Actonel] 35 mg PO DIRECTED 08/29/24 08/29/24 predniSONE See Taper PO DAILY 08/29/24 08/29/24 Previous Rx's Medication Instructions Recorded Cyclobenzaprine [Flexeril] 10 mg PO Q8H PRN #15 tab 08/18/24 methylPREDNISolone Dose Pack 24 mg PO DAILY #1 dispenser 09/01/24 [Medrol Dose Pack] Ofatumumab [Kesimpta Pen] 20 mg SQ Q30D #1 each 09/17/24 Allergies Allergy/AdvReac Type Severity Reaction Status Date / Time bee venom protein (honey bee) Allergy SWELLING , Verified 09/28/24 13:42 AND ITCHING Bleach (Sodium Hypochlorite) Allergy Rash/Hives Verified 09/28/24 13:42 nitrofurantoin Allergy Rash/Hives Verified 09/28/24 13:42 [From Macrobid] nitrofurantoin Allergy Rash/Hives Verified 09/28/24 13:42 macrocrystalline [From Macrobid] moxifloxacin [From Avelox] AdvReac Nausea & Verified 09/28/24 13:42 Vomiting NSAIDS (Non-Steroidal AdvReac Had Verified 09/28/24 13:42 Anti-Inflamma gastric sleeve surgery, causes bleeds. seasonal allergies Allergy congestion Uncoded 09/28/24 13:42 and sneezing Review of Systems ROS Other: All systems not noted in ROS Statement are negative. <Linsey Stoddard - Last Filed: 10/08/24 20:18> ROS Other: All systems not noted in ROS Statement are negative. <Ganesh Sylvester - Last Filed: 10/09/24 00:53> ROS Statement: Those systems with pertinent positive or pertinent negative responses have been documented in the HPI. Past Medical History Past Medical History: Asthma, Cancer, COPD, CVA/TIA, GERD/Reflux, Hypertension, Musculoskeletal Disorder, Neurologic Disorder, Sleep Apnea/CPAP/BIPAP, Thyroid Disorder Additional Past Medical History / Comment(s): smoking-related interstitial lung disease, doesn't use CPAP, history of seizure at the age of 16 related to med. to stop breast milk, endometriosis, chronic back pain, plantar fasciitis, hx. of Achilles tendinitis, probably antibiotic induced. She also has history of hypothyroidism, ALLERGIC rhinitis, migraines, uses oxygen 2L prn, recent iron infusion, MS , tia 2020 no residual issues, tinnitus, balance issues, Migraine. Dx. w/ leukemia, 10/2023, Diagnosed with lung cancer 2023 History of Any Multi-Drug Resistant Organisms: None Reported Past Surgical History: Bariatric Surgery, Cholecystectomy, Hysterectomy, Tubal Ligation, Uterine Ablation Additional Past Surgical History / Comment(s): LEEP PROCEDURE X 2 r/t cervical dysplasia, EGD, BACK INJECTIONS FOR PAIN. The patient has also undergone thoracic/thoracoscopic wedge biopsy of the right lung. 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; R and Y bypass at [facility] 2019, TRACHEOSTOMY-RESOLVED Past Anesthesia/Blood Transfusion Reactions: Motion Sickness Additional Past Anesthesia/Blood Transfusion Reaction / Comment(s): no problem w/blood transfusion Past Psychological History: Anxiety, Depression Smoking Status: Current every day smoker Past Alcohol Use History: None Reported Past Drug Use History: None Reported - Past Family History Sister(s) Family Medical History: Cancer Additional Family Medical History / Comment(s): ovarian Mother Additional Family Medical History / Comment(s): breast cancer Father Family Medical History: COPD, CVA/TIA, Myocardial Infarction (CA) Additional Family Medical History / Comment(s): HEART PROBLEMS, AT AGE 64 <Lucho Stoddardsey - Last Filed: 10/08/24 20:18> General Exam <Linsey Stoddard - Last Filed: 10/08/24 20:18> General appearance: alert, in no apparent distress Head exam: Present: atraumatic, normocephalic, normal inspection Eye exam: Present: normal appearance, PERRL, EOMI. Absent: scleral icterus, conjunctival injection, periorbital swelling ENT exam: Present: normal exam, mucous membranes moist Neck exam: Present: normal inspection. Absent: tenderness, meningismus, lymphadenopathy Respiratory exam: Present: normal lung sounds bilaterally. Absent: respiratory distress, wheezes, rales, rhonchi, stridor Cardiovascular Exam: Present: regular rate, normal rhythm, normal heart sounds. Absent: systolic murmur, diastolic murmur, rubs, gallop, clicks GI/Abdominal exam: Present: soft, normal bowel sounds. Absent: distended, tenderness, guarding, rebound, rigid Extremities exam: Present: normal inspection, full ROM, normal capillary refill. Absent: tenderness, pedal edema, joint swelling, calf tenderness Back exam: Present: normal inspection Neurological exam: Present: alert, oriented X3, CN II-XII intact Psychiatric exam: Present: normal affect, normal mood Skin exam: Present: warm, dry, intact, normal color. Absent: rash <Ganesh Sylvester - Last Filed: 10/09/24 00:53> - General Exam Comments Initial Comments: Visual Physical Exam Vital signs reviewed General: Well-appearing, nontoxic, no acute distress. Head: Normocephalic, atraumatic Eyes: PERRLA, EOMI ENT: Airway patent Chest: Nonlabored breathing Skin: No visual rash, normal skin tone Neuro: Alert and oriented 3 Musculoskeletal: No gross abnormalities (Linsey Stoddard) Course <Ganesh Sylvester - Last Filed: 10/09/24 00:53> Vital Signs 10/08/24 10/08/24 19:59 23:19 Temperature 98.7 F Pulse Rate 118 H 113 H Respiratory 20 18 Rate Blood Pressure 116/66 125/84 O2 Sat by Pulse 92 L 95 Oximetry - Reevaluation(s) Reevaluation #1: 10/09/24 00:53 Medical records reviewed (Ganesh Sylvester) Reevaluation #2: 10/09/24 00:53 Headache is resolved (Ganesh Sylvester) Reevaluation #3: 10/09/24 00:53 Patient informed of results and questions answered (Ganesh Sylvester) Reevaluation #4: Was pt. sent in by a medical professional or institution (, PA, [employer], urgent care, hospital, or residential...) When possible be specific @ -no Did you speak to anyone other than the patient for history (EMS, parent, family, police, friend...)? What history was obtained from this source @ -no Did you review nursing and triage notes (agree or disagree)? Why? @ -agree Are old charts reviewed (outside hosp., previous admission, EMS record, old EKG, old radiological studies, urgent care reports/EKG's, residential records)? Report findings @ -yes Differential Diagnosis (chest pain, altered mental status, abdominal pain women, abdominal pain men, vaginal bleeding, weakness, fever, dyspnea, syncope, headache, dizziness, GI bleed, back pain, seizure, CVA, palpatations, mental health, musculoskeletal)? @ -prior EKG interpreted by me (3pts min.). @ -yes X-rays interpreted by me (1pt min.). @ -yes negative for acute disease CT interpreted by me (1pt min.). @ -no U/S interpreted by me (1pt. min.). @ -no What testing was considered but not performed or refused? (CT, X-rays, U/S, labs)? Why? @ -none What meds were considered but not given or refused? Why? @ -none Did you discuss the management of the patient with other professionals (professionals i.e. DrJazmín, PA, [employer], lab, RT, psych nurse, social science research assistant, psychometrist, teacher, senior vice president and chief information officer, corrections caseworker)? Give summary @ -no Was smoking cessation discussed for >3mins.? @ -no Was critical care preformed (if so, how long)? @ -no Were there social determinants of health that impacted care today? How? (Homelessness, low income, unemployed, alcoholism, drug addiction, transportat ion, low edu. Level, literacy, decrease access to med. care, care home, rehab)? @ -none Was there de-escalation of care discussed even if they declined (Discuss DNR or withdrawal of care, Hospice)? DNR status @ -no What co-morbidities impacted this encounter? (DM, HTN, Smoking, COPD, CAD, Cancer, CVA, ARF, Chemo, Hep., AIDS, mental health diagnosis, sleep apnea, morbid obesity)? @ -none Was patient admitted / discharged? Hospital course, mention meds given and route, prescriptions, significant lab abnormalities, going to OR and other pertinent info. @ - Undiagnosed new problem with uncertain prognosis? @ -no Drug Therapy requiring intensive monitoring for toxicity (Heparin, Nitro, Insulin, Cardizem)? @ -no Were any procedures done? @ -no Diagnosis/symptom? @ - Acute, or Chronic, or Acute on Chronic? @ -Acute Uncomplicated (without systemic symptoms) or Complicated (systemic symptoms)? @ -Complicated Side effects of treatment? @ -no Exacerbation, Progression, or Severe Exacerbation? @ -exacerbation Poses a threat to life or bodily function? How? (Chest pain, [place], CA, pneumonia, PE, COPD, DKA, ARF, appy, cholecystitis, CVA, Diverticulitis, Homicidal, Suicidal, threat to staff... and all critical care pts) @ -yes (Ganesh Sylvester) Reevaluation #5: Differential Headache: Migraine, tension, cluster, carbon monoxide, central venous thrombosis, pension karma temporal arteritis, acute closure glaucoma, intercranial hemorrhage, mastoiditis, sinusitis, head injury, this is not meant to be an all-inclusive list. (Ganesh Sylvester) Medical Decision Making <Linsey Stoddard - Last Filed: 10/08/24 20:18> <Ganesh Sylvester - Last Filed: 10/09/24 00:53> - Medical Decision Making Quick note preformed and electronically signed by Linsey Stoddard PA-C (Linsey Stoddard) 49 female to ER with migraine migraine headache headache resolved patient symptoms are improved patient feels well for discharge home (Ganesh Sylvester) Disposition <Linsey Stoddard - Last Filed: 10/08/24 20:18> Is patient prescribed a controlled substance at d/c from ED?: No Time of Disposition: 22:30 <Ganesh Sylvester - Last Filed: 10/09/24 00:53> Clinical Impression: Migraine headache, Multiple sclerosis Disposition: HOME SELF-CARE Condition: Good Instructions (If sedation given, give patient instructions): Acute Headache (ED) Referrals: Keven Kebede MD [Primary Care Provider] - 1-2 days
[2024-10-08] MEDS: PROCHLORPERAZINE 5 MG TAB PO STA (23:15)
[2024-10-08] MEDS: diphenhydrAMINE 50 MG CAP PO STA (23:15)
[2024-10-08] MEDS: HYDROmorphone 1 MG/ML 1 ML SYRINGE IM STA (23:15)
[2024-10-08 23:20] VITALS: BP 125/84; PULSE 113; RESP 18
== END 2024-10-08 23:23 | disposition home or self-care (01) ==
LOC: EC 19:54
DX: G43.909 Migraine, unspecified, not intractable, without status migrainosus (principal); G35 Multiple sclerosis; F17.200 Nicotine dependence, unspecified, uncomplicated; Z91.030 Bee allergy status; Z88.1 Allergy status to other antibiotic agents; Z88.6 Allergy status to analgesic agent; Z88.8 Allergy status to other drugs, medicaments and biological substances
CPT/HCPCS: 99283; 96372; S0183; J1171

== ENCOUNTER 2024-10-10 16:30 | Emergency (ER) | payer BC, MEDICARE ==
--- NOTE | 2024-10-10 17:02 | ED ---
Headache HPI - General Source: patient, RN notes reviewed Mode of arrival: ambulatory Limitations: no limitations <Tracy Tanner - Last Filed: 10/10/24 17:01> - General Source: patient, RN notes reviewed, old records reviewed Mode of arrival: ambulatory Limitations: no limitations - History of Present Illness MD Complaint: headache, "migraine" -: hour(s) Onset Description: gradual Location: frontal, temporal Severity: severe Severity scale (1-10): 10 Consistency: constant Improves With: nothing Worsens With: none Associated Symptoms: nausea Other Symptoms: eye pain/redness Treatments Prior to Arrival: none <Ganesh Sylvester - Last Filed: 10/11/24 04:16> - General Chief Complaint: Headache Stated Complaint: Headache Time Seen by Provider: 10/10/24 16:45 - History of Present Illness Initial Comments: Quick [id number] female history of MS presenting to emergency room with complaints of migraine headache. Patient states that she took Tylenol and Percocet at home with minimal relief. Denies new symptoms though she has a history of migraines. (Tracy Tanner) This is a 49-year-old female to the ER for evaluation of headache severe migraine headaches and MS headache patient has uncontrolled headache. (Ganesh Sylvester) - Related Data Home Medications Medication Instructions Recorded Confirmed Levothyroxine Sodium [Synthroid] 50 mcg PO DAILY 01/05/14 08/29/24 Pantoprazole Sodium [Protonix] 40 mg PO DAILY 05/28/18 08/29/24 Albuterol Sulfate [Albuterol 2 puff INHALATION RT-Q6H PRN 02/19/23 08/29/24 Sulfate Hfa] Pravastatin Sodium [Pravachol] 40 mg PO HS 08/21/23 08/29/24 LORazepam [Ativan] 0.5 mg PO BID PRN 01/18/24 08/29/24 Nicotine 21Mg/24Hr Patch [Habitrol] 1 patch TRANSDERM DAILY PRN 01/18/24 08/29/24 oxyCODONE-APAP 10-325MG [Percocet 1 tab PO QID 01/18/24 08/29/24 10-325 mg] Fluticasone/Umeclidin/Vilanter 1 puff INHALATION RT-DAILY 03/22/24 08/29/24 [Trelegy Ellipta 100-62.5-25] Losartan [Cozaar] 25 mg PO HS 03/22/24 08/29/24 valACYclovir HCL [Valacyclovir] 2,000 mg PO DAILY PRN 03/22/24 08/29/24 Albuterol Nebulized [Ventolin 2.5 mg INHALATION RT-QID PRN 06/02/24 08/29/24 Nebulized] Gabapentin 600 mg PO TID 06/02/24 08/29/24 Metoprolol Succinate (ER) [Toprol 100 mg PO HS 06/02/24 08/29/24 XL] Cyclobenzaprine [Flexeril] 5 mg PO BID PRN 08/29/24 08/29/24 Ergocalciferol [Vitamin D2 (1250 1,250 mcg PO STEWART 08/29/24 08/29/24 Mcg = 48511 Iu)] Famotidine [Pepcid] 20 mg PO DAILY 08/29/24 08/29/24 Fluconazole [Diflucan] 100 mg PO DAILY 08/29/24 08/29/24 Furosemide [Lasix] 20 mg PO DAILY PRN 08/29/24 08/29/24 Ipratropium-Albuterol Nebulize 3 ml INHALATION RT-QID 08/29/24 08/29/24 [Duoneb 0.5 mg-3 mg/3 ml Soln] Montelukast [Singulair] 10 mg PO HS 08/29/24 08/29/24 Promethazine HCl [Phenergan Syrup] 25 mg PO DAILY PRN 08/29/24 08/29/24 Risedronate Sodium [Actonel] 35 mg PO DIRECTED 08/29/24 08/29/24 predniSONE See Taper PO DAILY 08/29/24 08/29/24 Previous Rx's Medication Instructions Recorded Cyclobenzaprine [Flexeril] 10 mg PO Q8H PRN #15 tab 08/18/24 methylPREDNISolone Dose Pack 24 mg PO DAILY #1 dispenser 09/01/24 [Medrol Dose Pack] Ofatumumab [Kesimpta Pen] 20 mg SQ Q30D #1 each 09/17/24 Allergies Allergy/AdvReac Type Severity Reaction Status Date / Time bee venom protein (honey bee) Allergy SWELLING , Verified 10/10/24 16:44 AND ITCHING Bleach (Sodium Hypochlorite) Allergy Rash/Hives Verified 10/10/24 16:44 nitrofurantoin Allergy Rash/Hives Verified 10/10/24 16:44 [From Macrobid] nitrofurantoin Allergy Rash/Hives Verified 10/10/24 16:44 macrocrystalline [From Macrobid] moxifloxacin [From Avelox] AdvReac Nausea & Verified 10/10/24 16:44 Vomiting NSAIDS (Non-Steroidal AdvReac Had Verified 10/10/24 16:44 Anti-Inflamma gastric sleeve surgery, causes bleeds. seasonal allergies Allergy congestion Uncoded 10/10/24 16:44 and sneezing Review of Systems ROS Other: All systems not noted in ROS Statement are negative. <Tracy Tanner - Last Filed: 10/10/24 17:01> ROS Other: All systems not noted in ROS Statement are negative. <Ganesh Sylvester - Last Filed: 10/11/24 04:16> ROS Statement: Those systems with pertinent positive or pertinent negative responses have been documented in the HPI. Past Medical History Past Medical History: Asthma, Cancer, COPD, CVA/TIA, GERD/Reflux, Hypertension, Musculoskeletal Disorder, Neurologic Disorder, Sleep Apnea/CPAP/BIPAP, Thyroid Disorder Additional Past Medical History / Comment(s): smoking-related interstitial lung disease, doesn't use CPAP, history of seizure at the age of 16 related to med. to stop breast milk, endometriosis, chronic back pain, plantar fasciitis, hx. of Achilles tendinitis, probably antibiotic induced. She also has history of hypothyroidism, ALLERGIC rhinitis, migraines, uses oxygen 2L prn, recent iron infusion, MS , tia 2020 no residual issues, tinnitus, balance issues, Migraine. Dx. w/ leukemia, 10/2023, Diagnosed with lung cancer 2023 History of Any Multi-Drug Resistant Organisms: None Reported Past Surgical History: Bariatric Surgery, Cholecystectomy, Hysterectomy, Tubal Ligation, Uterine Ablation Additional Past Surgical History / Comment(s): LEEP PROCEDURE X 2 r/t cervical dysplasia, EGD, BACK INJECTIONS FOR PAIN. The patient has also undergone thoracic/thoracoscopic wedge biopsy of the right lung. 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; R and Y bypass at [facility], TRACHEOSTOMY-RESOLVED Past Anesthesia/Blood Transfusion Reactions: Motion Sickness Additional Past Anesthesia/Blood Transfusion Reaction / Comment(s): no problem w/blood transfusion Past Psychological History: Anxiety, Depression Smoking Status: Current every day smoker Past Alcohol Use History: None Reported Past Drug Use History: None Reported - Past Family History Sister(s) Family Medical History: Cancer Additional Family Medical History / Comment(s): ovarian Mother Additional Family Medical History / Comment(s): breast cancer Father Family Medical History: COPD, CVA/TIA, Myocardial Infarction (MD) Additional Family Medical History / Comment(s): HEART PROBLEMS, AT AGE 64 <Tracy Tanner - Last Filed: 10/10/24 17:01> General Exam Limitations: no limitations <Tracy Tanner - Last Filed: 10/10/24 17:01> General appearance: alert, in no apparent distress Head exam: Present: atraumatic, normocephalic, normal inspection Eye exam: Present: normal appearance, PERRL, EOMI. Absent: scleral icterus, conjunctival injection, periorbital swelling ENT exam: Present: normal exam, mucous membranes moist Neck exam: Present: normal inspection. Absent: tenderness, meningismus, lymphadenopathy Respiratory exam: Present: normal lung sounds bilaterally. Absent: respiratory distress, wheezes, rales, rhonchi, stridor Cardiovascular Exam: Present: regular rate, normal rhythm, normal heart sounds. Absent: systolic murmur, diastolic murmur, rubs, gallop, clicks GI/Abdominal exam: Present: soft, normal bowel sounds. Absent: distended, tenderness, guarding, rebound, rigid Extremities exam: Present: normal inspection, full ROM, normal capillary refill. Absent: tenderness, pedal edema, joint swelling, calf tenderness Back exam: Present: normal inspection Neurological exam: Present: alert, oriented X3, CN II-XII intact Psychiatric exam: Present: normal affect, normal mood Skin exam: Present: warm, dry, intact, normal color. Absent: rash <Ganesh Sylvester - Last Filed: 10/11/24 04:16> - General Exam Comments Initial Comments: Visual Physical Exam Vital signs reviewed General: Well-appearing, nontoxic, no acute distress. Head: Normocephalic, atraumatic Eyes: PERRLA, EOMI ENT: Airway patent Chest: Nonlabored breathing Skin: No visual rash, normal skin tone Neuro: Alert and oriented 3 Musculoskeletal: No gross abnormalities (Stieler,Tracy) Course <Ganesh Sylvester - Last Filed: 10/11/24 04:16> Vital Signs 10/10/24 10/10/24 10/11/24 16:42 23:15 01:13 Temperature 98.2 F 98.1 F Pulse Rate 105 H 105 H 79 Respiratory 16 18 18 Rate Blood Pressure 160/137 135/94 138/85 O2 Sat by Pulse 96 100 99 Oximetry - Reevaluation(s) Reevaluation #1: 10/11/24 04:15 Medical records reviewed (Ganesh Sylvester) Reevaluation #2: 10/11/24 04:15 Patient's symptoms improved (Ganesh Sylvester) Reevaluation #3: 10/11/24 04:15 Inform results questions answered (Ganesh Sylvester) Reevaluation #4: Was pt. sent in by a medical professional or institution (, PA, TRANSFER CAR OPERATOR, urgent care, hospital, or assisted...) When possible be specific @ -no Did you speak to anyone other than the patient for history (EMS, parent, family, police, friend...)? What history was obtained from this source @ -no Did you review nursing and triage notes (agree or disagree)? Why? @ -agree Are old charts reviewed (outside hosp., previous admission, EMS record, old EKG, old radiological studies, urgent care reports/EKG's, assisted records)? Report findings @ -yes Differential Diagnosis (chest pain, altered mental status, abdominal pain women, abdominal pain men, vaginal bleeding, weakness, fever, dyspnea, syncope, headache, dizziness, GI bleed, back pain, seizure, CVA, palpatations, mental health, musculoskeletal)? @ -prior EKG interpreted by me (3pts min.). @ -yes X-rays interpreted by me (1pt min.). @ -yes negative for acute disease CT interpreted by me (1pt min.). @ -no U/S interpreted by me (1pt. min.). @ -no What testing was considered but not performed or refused? (CT, X-rays, U/S, labs)? Why? @ -none What meds were considered but not given or refused? Why? @ -none Did you discuss the management of the patient with other professionals (professionals i.e. , PA, TRANSFER CAR OPERATOR, lab, RT, psych nurse, clinical social work aide, environmental communications specialist, teacher, project officer, rn case manager hospice)? Give summary @ -no Was smoking cessation discussed for >3mins.? @ -no Was critical care preformed (if so, how long)? @ -no Were there social determinants of health that impacted care today? How? (Homelessness, low income, unemployed, alcoholism, drug addiction, transportation, low edu. Level, literacy, decrease access to med. care, retirement, rehab)? @ -none Was there de-escalation of care discussed even if they declined (Discuss DNR or withdrawal of care, Hospice)? DNR status @ -no What co-morbidities impacted this encounter? (DM, HTN, Smoking, COPD, CAD, Cancer, CVA, ARF, Chemo, Hep., AIDS, mental health diagnosis, sleep apnea, morbid obesity)? @ -none Was patient admitted / discharged? Hospital course, mention meds given and route, prescriptions, significant lab abnormalities, going to OR and other pertinent info. @ - Undiagnosed new problem with uncertain prognosis? @ -no Drug Therapy requiring intensive monitoring for toxicity (Heparin, Nitro, Insulin, Cardizem)? @ -no Were any procedures done? @ -no Diagnosis/symptom? @ - Acute, or Chronic, or Acute on Chronic? @ -Acute Uncomplicated (without systemic symptoms) or Complicated (systemic symptoms)? @ -Complicated Side effects of treatment? @ -no Exacerbation, Progression, or Severe Exacerbation? @ -exacerbation Poses a threat to life or bodily function? How? (Chest pain, USA, MD, pneumonia, PE, COPD, DKA, ARF, appy, cholecystitis, CVA, Diverticulitis, Homicidal, Suicidal, threat to staff... and all critical care pts) @ -yes (Ganesh Sylvester) Reevaluation #5: Differential Headache: Migraine, tension, cluster, carbon monoxide, central venous thrombosis, pension karma temporal arteritis, acute closure glaucoma, intercranial hemorrhage, mastoiditis, sinusitis, head injury, this is not meant to be an all-inclusive list. (Ganesh Sylvester) Medical Decision Making <Tracy Tanner - Last Filed: 10/10/24 17:01> - Radiology Data Radiology results: report reviewed (CT brain is negative for acute disease), image reviewed <Ganesh Sylvester - Last Filed: 10/11/24 04:16> - Medical Decision Making I completed the quick note portion of this chart signed Tracy Tanner PA-C (Tracy Tanner) 48-year-old female to the ER for evaluation of severe headache chronic headache, patient's headache is resolved here in the ER feels well can be discharged home, patient had CT scan today secondary to his recurrent headaches which was negative (Ganesh Sylvester) Disposition <Tracy Tanner - Last Filed: 10/10/24 17:01> Is patient prescribed a controlled substance at d/c from ED?: No Time of Disposition: 23:55 <Ganesh Sylvester - Last Filed: 10/11/24 04:16> Clinical Impression: Chronic migraine Disposition: HOME SELF-CARE Condition: Fair Instructions (If sedation given, give patient instructions): Acute Headache (ED) Referrals: Keven Kebede MD [Primary Care Provider] - 1-2 days
[2024-10-10] MEDS: dexAMETHasone 2 MG TAB PO STA (22:33)
[2024-10-10] MEDS: diphenhydrAMINE 50 MG CAP PO STA (22:34)
[2024-10-10] MEDS: HYDROmorphone 1 MG/ML 1 ML SYRINGE IM STA (22:34)
[2024-10-10] MEDS: PROCHLORPERAZINE 10 MG TAB PO STA (22:46)
[2024-10-10 23:17] VITALS: RESP 18
--- NOTE | 2024-10-10 23:59 | CT ---
EXAM: CT Head Without Intravenous Contrast CLINICAL HISTORY: ITS.REASON CT Reason: saleem TECHNIQUE: Axial computed tomography images of the head/brain without intravenous contrast. CTDI is 49.2 mGy and DLP is 1097.4 mGy-cm. This CT exam was performed using one or more of the following dose reduction techniques: automated exposure control, adjustment of the mA and/or kV according to patient size, and/or use of iterative reconstruction technique. COMPARISON: No relevant prior studies available. FINDINGS: No acute intracranial hemorrhage. No midline shift or mass effect. The territorial richey-white matter differentiation is maintained throughout. The ventricles and sulci are commensurate with age. The visualized orbits appear grossly unremarkable. The calvarium is intact. The visualized paranasal sinuses and mastoid air cells are grossly clear. IMPRESSION: No acute intracranial hemorrhage, midline shift, or mass effect.
[2024-10-11 01:14] VITALS: BP 138/85; PULSE 79; TEMP 98.1
== END 2024-10-11 01:15 | disposition home or self-care (01) ==
LOC: EC 16:30
DX: G43.909 Migraine, unspecified, not intractable, without status migrainosus (principal); G89.29 Other chronic pain; F17.200 Nicotine dependence, unspecified, uncomplicated; Z88.1 Allergy status to other antibiotic agents; Z88.6 Allergy status to analgesic agent; Z91.030 Bee allergy status; Z88.8 Allergy status to other drugs, medicaments and biological substances
CPT/HCPCS: 70450; 99284; 96372; S0183; J1171; J8540

== ENCOUNTER 2024-10-16 15:49 | Emergency (ER) | payer BC, MEDICARE ==
--- NOTE | 2024-10-16 16:32 | ED ---
Headache HPI - General Chief Complaint: Headache Stated Complaint: Headache Time Seen by Provider: 10/16/24 16:04 Source: patient, RN notes reviewed Mode of arrival: ambulatory Limitations: no limitations - History of Present Illness Initial Comments: This is a 49-year-old female with a significant medical history including MS and migraines presenting for headache x 3 days. Patient states headache has been intermittent during this time before worsening last night, described as sharp and pressure. Patient states pain is mainly in the front, to the left side of her skull to her neck. Endorses associated nausea. Patient states this feels like a typical migraine for her. Endorses use of Tylenol and Percocet with minimal relief. Denies fever, chills, dizziness, neck stiffness, vision changes, chest pain, dyspnea, abdominal pain. MD Complaint: headache Onset/Timin Location: left, frontal, temporal, neck Quality: throbbing, sharp Consistency: intermittent Associated Symptoms: nausea Treatments Prior to Arrival: Acetaminophen, prescription analgesic - Related Data Home Medications Medication Instructions Recorded Confirmed Levothyroxine Sodium [Synthroid] 50 mcg PO DAILY 01/05/14 08/29/24 Pantoprazole Sodium [Protonix] 40 mg PO DAILY 05/28/18 08/29/24 Albuterol Sulfate [Albuterol 2 puff INHALATION RT-Q6H PRN 02/19/23 08/29/24 Sulfate Hfa] Pravastatin Sodium [Pravachol] 40 mg PO HS 08/21/23 08/29/24 LORazepam [Ativan] 0.5 mg PO BID PRN 01/18/24 08/29/24 Nicotine 21Mg/24Hr Patch [Habitrol] 1 patch TRANSDERM DAILY PRN 01/18/24 08/29/24 oxyCODONE-APAP 10-325MG [Percocet 1 tab PO QID 01/18/24 08/29/24 10-325 mg] Fluticasone/Umeclidin/Vilanter 1 puff INHALATION RT-DAILY 03/22/24 08/29/24 [Trelegy Ellipta 100-62.5-25] Losartan [Cozaar] 25 mg PO HS 03/22/24 08/29/24 valACYclovir HCL [Valacyclovir] 2,000 mg PO DAILY PRN 03/22/24 08/29/24 Albuterol Nebulized [Ventolin 2.5 mg INHALATION RT-QID PRN 06/02/24 08/29/24 Nebulized] Gabapentin 600 mg PO TID 06/02/24 08/29/24 Metoprolol Succinate (ER) [Toprol 100 mg PO HS 06/02/24 08/29/24 XL] Cyclobenzaprine [Flexeril] 5 mg PO BID PRN 08/29/24 08/29/24 Ergocalciferol [Vitamin D2 (1250 1,250 mcg PO SOTO 08/29/24 08/29/24 Mcg = 44907 Iu)] Famotidine [Pepcid] 20 mg PO DAILY 08/29/24 08/29/24 Fluconazole [Diflucan] 100 mg PO DAILY 08/29/24 08/29/24 Furosemide [Lasix] 20 mg PO DAILY PRN 08/29/24 08/29/24 Ipratropium-Albuterol Nebulize 3 ml INHALATION RT-QID 08/29/24 08/29/24 [Duoneb 0.5 mg-3 mg/3 ml Soln] Montelukast [Singulair] 10 mg PO HS 08/29/24 08/29/24 Promethazine HCl [Phenergan Syrup] 25 mg PO DAILY PRN 08/29/24 08/29/24 Risedronate Sodium [Actonel] 35 mg PO DIRECTED 08/29/24 08/29/24 predniSONE See Taper PO DAILY 08/29/24 08/29/24 Previous Rx's Medication Instructions Recorded Cyclobenzaprine [Flexeril] 10 mg PO Q8H PRN #15 tab 08/18/24 methylPREDNISolone Dose Pack 24 mg PO DAILY #1 dispenser 09/01/24 [Medrol Dose Pack] Ofatumumab [Kesimpta Pen] 20 mg SQ Q30D #1 each 09/17/24 Ondansetron [Zofran] 4 mg PO Q8HR PRN #15 tab 10/16/24 Allergies Allergy/AdvReac Type Severity Reaction Status Date / Time bee venom protein (honey bee) Allergy SWELLING , Verified 10/16/24 16:00 AND ITCHING Bleach (Sodium Hypochlorite) Allergy Rash/Hives Verified 10/16/24 16:00 nitrofurantoin Allergy Rash/Hives Verified 10/16/24 16:00 [From Macrobid] nitrofurantoin Allergy Rash/Hives Verified 10/16/24 16:00 macrocrystalline [From Macrobid] moxifloxacin [From Avelox] AdvReac Nausea & Verified 10/16/24 16:00 Vomiting NSAIDS (Non-Steroidal AdvReac Had Verified 10/16/24 16:00 Anti-Inflamma gastric sleeve surgery, causes bleeds. seasonal allergies Allergy congestion Uncoded 10/16/24 16:00 and sneezing Review of Systems ROS Statement: Those systems with pertinent positive or pertinent negative responses have been documented in the HPI. ROS Other: All systems not noted in ROS Statement are negative. Past Medical History Past Medical History: Asthma, Cancer, COPD, CVA/TIA, GERD/Reflux, Hypertension, Musculoskeletal Disorder, Neurologic Disorder, Sleep Apnea/CPAP/BIPAP, Thyroid Disorder Additional Past Medical History / Comment(s): smoking-related interstitial lung disease, doesn't use CPAP, history of seizure at the age of 16 related to med. to stop breast milk, endometriosis, chronic back pain, plantar fasciitis, hx. of Achilles tendinitis, probably antibiotic induced. She also has history of hypothyroidism, ALLERGIC rhinitis, migraines, uses oxygen 2L prn, recent iron infusion, MS , tia 2020 no residual issues, tinnitus, balance issues, Migraine. Dx. w/ leukemia, 10/2023, Diagnosed with lung cancer 2023 History of Any Multi-Drug Resistant Organisms: None Reported Past Surgical History: Bariatric Surgery, Cholecystectomy, Hysterectomy, Tubal Ligation, Uterine Ablation Additional Past Surgical History / Comment(s): LEEP PROCEDURE X 2 r/t cervical dysplasia, EGD, BACK INJECTIONS FOR PAIN. The patient has also undergone thoracic/thoracoscopic wedge biopsy of the right lung. 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; R and Y bypass at [facility] 2019, TRACHEOSTOMY-RESOLVED Past Anesthesia/Blood Transfusion Reactions: Motion Sickness Additional Past Anesthesia/Blood Transfusion Reaction / Comment(s): no problem w/blood transfusion Past Psychological History: Anxiety, Depression Smoking Status: Current every day smoker Past Alcohol Use History: None Reported Past Drug Use History: None Reported - Past Family History Sister(s) Family Medical History: Cancer Additional Family Medical History / Comment(s): ovarian Mother Additional Family Medical History / Comment(s): breast cancer Father Family Medical History: COPD, CVA/TIA, Myocardial Infarction (CA) Additional Family Medical History / Comment(s): HEART PROBLEMS, AT AGE 64 General Exam Limitations: no limitations Course Vital Signs 10/16/24 10/16/24 15:58 20:03 Temperature 98.2 F 98.4 F Pulse Rate 102 H 90 Respiratory 18 17 Rate Blood Pressure 128/73 132/85 O2 Sat by Pulse 95 92 L Oximetry Medical Decision Making - Medical Decision Making Was pt. sent in by a medical professional or institution (, PA, ED TRANSPORTER, urgent care, hospital, or prison...) When possible be specific @ -[No] Did you speak to anyone other than the patient for history (EMS, parent, family, police, friend...)? What history was obtained from this source @ -[No] Did you review nursing and triage notes (agree or disagree)? Why? @ -[I reviewed and agree with nursing and triage notes] Were old charts reviewed (outside hosp., previous admission, EMS record, old EKG, old radiological studies, urgent care reports/EKG's, prison records)? Report findings @ -[No old charts were reviewed] Differential Diagnosis (chest pain, altered mental status, abdominal pain women, abdominal pain men, vaginal bleeding, weakness, fever, dyspnea, syncope, headache, dizziness, GI bleed, back pain, seizure, CVA, palpatations, mental health, musculoskeletal)? @ -Differential Headache: Migraine, tension, cluster, carbon monoxide, central venous thrombosis, pension karma temporal arteritis, acute closure glaucoma, intercranial hemorrhage, mastoiditis, sinusitis, head injury, this is not meant to be an all-inclusive list. EKG interpreted by me (3pts min.). @ -Not done X-rays interpreted by me (1pt min.). @ -[None done] CT interpreted by me (1pt min.). @ -[None done] U/S interpreted by me (1pt. min.). @ -[None done] What testing was considered but not performed or refused? (CT, X-rays, U/S, labs)? Why? @ -[None] What meds were considered but not given or refused? Why? @ -[None] Did you discuss the management of the patient with other professionals (professionals i.e. , PA, ED TRANSPORTER, lab, RT, psych nurse, director of social media marketing, organ grinder, teacher, mortgage loan officer originator, supportive employment case manager)? Give summary @ -[No] Was smoking cessation discussed for >3mins.? @ -[No] Was critical care preformed (if so, how long)? @ -[No] Were there social determinants of health that impacted care today? How? (Homelessness, low income, unemployed, alcoholism, drug addiction, transpor tation, low edu. Level, literacy, decrease access to med. care, care home, rehab)? @ -[No] Was there de-escalation of care discussed even if they declined (Discuss DNR or withdrawal of care, Hospice)? DNR status @ -[No] What co-morbidities impacted this encounter? (DM, HTN, Smoking, COPD, CAD, Cancer, CVA, ARF, Chemo, Hep., AIDS, mental health diagnosis, sleep apnea, morbid obesity)? @ -[None] Was patient admitted / discharged? Hospital course, mention meds given and route, prescriptions, significant lab abnormalities, going to OR and other pertinent info. @ -[hospital course] Undiagnosed new problem with uncertain prognosis? @ -[No] Drug Therapy requiring intensive monitoring for toxicity (Heparin, Nitro, Insulin, Cardizem)? @ -[No] Were any procedures done? @ -[No] Diagnosis/symptom? @ -[default] Acute, or Chronic, or Acute on Chronic? @ -Acute Uncomplicated (without systemic symptoms) or Complicated (systemic symptoms)? @ -Uncomplicated Side effects of treatment? @ -[No] Exacerbation, Progression, or Severe Exacerbation? @ -[No] Poses a threat to life or bodily function? How? (Chest pain, [place], CA, pneumonia, PE, COPD, DKA, ARF, appy, cholecystitis, CVA, Diverticulitis, Homicidal, [place] icidal, threat to staff... and all critical care pts) @ -[No] - Lab Data Result diagrams: 10/16/24 16:57 10/16/24 16:57 Lab Results 10/16/24 10/16/24 Range/Units 16:57 16:57 WBC 28.16 H (4.50-10.00) 10*3/uL RBC 4.60 (4.10-5.20) 10*6/uL Hgb 15.1 H (12.0-15.0) g/dL Hct 44.8 (37.2-46.3) % MCV 97.4 H (80.0-97.0) fL MCH 32.8 H (27.0-32.0) pg MCHC 33.7 (32.0-37.0) g/dL Plt Count 515 H (140-440) 10*3/uL MPV 9.1 L (9.5-12.2) fL Immature Gran % (Auto) 3.4 % Neutrophils % 68.7 % Lymphocytes % 12.7 % Monocytes % 7.7 % Eosinophils % 6.4 % Basophils % 1.1 % Immature Gran # 0.95 H (0.00-0.04) 10*3/uL Neutrophils # 19.37 H (1.80-7.70) 10*3/uL Lymphocytes # 3.57 (0.90-5.00) 10*3/uL Monocytes # 2.17 H (0.20-1.00) 10*3/uL Eosinophils # 1.80 H (0.04-0.35) 10*3/uL Basophils # 0.30 H (0.00-0.10) 10*3/uL Sodium 144 (137-145) mmol/L Potassium 4.5 (3.5-5.1) mmol/L Chloride 108 H (98-107) mmol/L Carbon Dioxide 26 (22-30) mmol/L Anion Gap 10 mmol/L BUN 14 (7-17) mg/dL Creatinine 0.67 (0.52-1.04) mg/dL Est GFR (CKD-EPI)AfAm >90 (>60 ml/min/1.73 sqM) Est GFR (CKD-EPI)NonAf >90 (>60 ml/min/1.73 sqM) Glucose 68 L (74-99) mg/dL Calcium 9.6 (8.4-10.2) mg/dL Total Bilirubin 0.4 (0.2-1.3) mg/dL AST 57 H (14-36) U/L ALT 33 (4-34) U/L Alkaline Phosphatase 122 (38-126) U/L Total Protein 6.0 L (6.3-8.2) g/dL Albumin 3.6 (3.5-5.0) g/dL Disposition Clinical Impression: Migraine Disposition: HOME SELF-CARE Condition: Good Instructions (If sedation given, give patient instructions): Migraine Headache (ED) Additional Instructions: Follow-up with primary care tomorrow for ongoing management of future migraines. Follow-up with primary care/hematology regarding elevated WBC. Prescriptions: Ondansetron [Zofran] 4 mg PO Q8HR PRN #15 tab PRN Reason: Nausea Is patient prescribed a controlled substance at d/c from ED?: No Referrals: Keven Kebede MD [Primary Care Provider] - 1-2 days Cooper Vasquez [STAFF PHYSICIAN] - 1-2 days Time of Disposition: 19:55
[2024-10-16 17:35] LABS: Basophils # (A) 0.30 10*3/uL (0.00-0.10); Basophils % (A) 1.1 %; Eosinophils # (A) 1.80 10*3/uL (0.04-0.35); Eosinophils % (A) 6.4 %; HCT 44.8 % (37.2-46.3); HGB 15.1 g/dL (12.0-15.0); Lymphocytes # (A) 3.57 10*3/uL (0.90-5.00); Lymphocytes % (A) 12.7 %; MCH 32.8 pg (27.0-32.0); MCHC 33.7 g/dL (32.0-37.0); MCV 97.4 fL (80.0-97.0); Monocytes # (A) 2.17 10*3/uL (0.20-1.00); Monocytes % (A) 7.7 %; Neutrophils # (A) 19.37 10*3/uL (1.80-7.70); Neutrophils % (A) 68.7 %; Platelet Count 515 10*3/uL (140-440); RBC 4.60 10*6/uL (4.10-5.20); RDW 14.7 % (11.5-14.5); WBC 28.16 10*3/uL (4.50-10.00)
[2024-10-16 18:02] LABS: ALT 33 U/L (4-34); AST 57 U/L (14-36); African American GFR (CKD) >90 (>60 ml/min/1.73 sqM); Albumin 3.6 g/dL (3.5-5.0); Alkaline Phosphatase 122 U/L (38-126); Anion Gap 10 mmol/L; Blood Urea Nitrogen 14 mg/dL (7-17); Calcium 9.6 mg/dL (8.4-10.2); Carbon Dioxide 26 mmol/L (22-30); Chloride 108 mmol/L (98-107); Glucose 68 mg/dL (74-99); Non-African American GFR(CKD) >90 (>60 ml/min/1.73 sqM); Potassium 4.5 mmol/L (3.5-5.1); Sodium 144 mmol/L (137-145); Total Protein 6.0 g/dL (6.3-8.2)
[2024-10-16] MEDS: HYDROmorphone 0.5 MG/0.5 ML SYRINGE IVP STA (19:01)
[2024-10-16] MEDS: SODIUM CHLORIDE 0.9% 1,000 ML IV STA (19:01)
[2024-10-16] MEDS: diphenhydrAMINE 50 MG/ML 1 ML VIAL IVP STA (19:02)
[2024-10-16] MEDS: METOCLOPRAMIDE 5 MG/ML 2 ML VIAL IVP STA (19:02)
[2024-10-16] MEDS: DEXAMETHASONE SOD PHOSPHATE 4 MG/ML 1 ML VIAL IVP STA (20:01)
[2024-10-16] MEDS: ONDANSETRON 4 MG ODT STARTER PACK 2 TAB BTL PO STA (20:02)
[2024-10-16 20:09] VITALS: BP 132/85; PULSE 90; RESP 17; TEMP 98.4
[2024-10-16 20:12] LABS: Glucose,Whole Blood 65 mg/dL (70-110)
[2024-10-16 20:33] LABS: Glucose,Whole Blood 113 mg/dL (70-110)
== END 2024-10-16 20:41 | disposition home or self-care (01) ==
LOC: EC 15:49
DX: G43.909 Migraine, unspecified, not intractable, without status migrainosus (principal); F17.200 Nicotine dependence, unspecified, uncomplicated; Z88.1 Allergy status to other antibiotic agents; Z88.6 Allergy status to analgesic agent; Z91.030 Bee allergy status; Z88.8 Allergy status to other drugs, medicaments and biological substances
CPT/HCPCS: 36415; 80053; 85025; 99283; 96374; 96375; 96361; J1200; J1100; J2765; S0119; J1171

== ENCOUNTER 2024-10-20 19:48 | Inpatient (IN) | payer BC, MEDICARE ==
[2024-10-20] MEDS: IPRATROPIUM-ALBUTEROL 3 ML NEB INHALATION STA ×2 (20:02→21:42)
--- NOTE | 2024-10-20 20:21 | ED ---
SOB HPI - General Chief Complaint: Shortness of Breath Stated Complaint: LUZ Time Seen by Provider: 10/20/24 19:51 Source: patient, EMS, RN notes reviewed, old records reviewed Mode of arrival: EMS Limitations: no limitations - History of Present Illness Initial Comments: This is a 49-year-old female to the ER for evaluation of severe shortness of breath. Patient does have underlying COPD history complaining of cough and congestion today unable to catch her breath and is low on oxygen here in the ER low 80s MD Complaint: shortness of breath, cough, "asthma attack", anxiety -: days(s) Severity: severe Severity scale (1-10): 10 Consistency: constant Improves With: nothing Worsens With: nothing Known History Of: COPD, asthma Context: recent URI, recent illness Associated Symptoms: chest pain, cough Treatments Prior to Arrival: none - Related Data Home Medications Medication Instructions Recorded Confirmed Levothyroxine Sodium [Synthroid] 50 mcg PO DAILY 01/05/14 10/21/24 Pravastatin Sodium [Pravachol] 40 mg PO HS 08/21/23 10/21/24 LORazepam [Ativan] 0.5 mg PO BID PRN 01/18/24 10/21/24 Nicotine 21Mg/24Hr Patch [Habitrol] 1 patch TRANSDERM DAILY PRN 01/18/24 10/21/24 oxyCODONE-APAP 10-325MG [Percocet 1 tab PO QID 01/18/24 10/21/24 10-325 mg] Fluticasone/Umeclidin/Vilanter 1 puff INHALATION RT-DAILY 03/22/24 10/21/24 [Trelelio Ellipta 100-62.5-25] Losartan [Cozaar] 25 mg PO HS 03/22/24 10/21/24 Albuterol Nebulized [Ventolin 2.5 mg INHALATION RT-QID PRN 06/02/24 10/21/24 Nebulized] Gabapentin 600 mg PO TID 06/02/24 10/21/24 Metoprolol Succinate (ER) [Toprol 100 mg PO HS 06/02/24 10/21/24 XL] Cyclobenzaprine [Flexeril] 5 mg PO BID 08/29/24 10/21/24 Ergocalciferol [Vitamin D2 (1250 1,250 mcg PO STEWART 08/29/24 10/21/24 Mcg = 74017 Iu)] Famotidine [Pepcid] 20 mg PO DAILY 08/29/24 10/21/24 Furosemide [Lasix] 20 mg PO DAILY PRN 08/29/24 10/21/24 Ipratropium-Albuterol Nebulize 3 ml INHALATION RT-QID 08/29/24 10/21/24 [Duoneb 0.5 mg-3 mg/3 ml Soln] Montelukast [Singulair] 10 mg PO HS 08/29/24 10/21/24 Promethazine HCl [Phenergan Syrup] 25 mg PO DAILY PRN 08/29/24 10/21/24 Risedronate Sodium [Actonel] 35 mg PO DIRECTED 08/29/24 10/21/24 Nystatin 100,000 Unit/ml Susp 2 ml PO DIRECTED 10/21/24 10/21/24 [Mycostatin Oral Susp] SUMAtriptan succinate 100 mg PO BID PRN MDD 200 mg 10/21/24 10/21/24 Previous Rx's Medication Instructions Recorded Ofatumumab [Kesimpta Pen] 20 mg SQ Q30D #1 each 09/17/24 Ondansetron [Zofran] 4 mg PO Q8HR PRN #15 tab 10/16/24 Budesonide-Formot 160-4.5 Mcg 2 puff INHALATION RT-BID #1 10/24/24 [Symbicort 160-4.5 Mcg Inhaler] dispenser Calcium Carbonate [Tums] 600 mg PO BID #60 tab 10/24/24 methylPREDNISolone Dose Pack 1 mg PO DAILY 7 Days #1 pack 10/24/24 [Medrol Dose Pack] polyethylene glycoL 3350 [Miralax] 17 gm PO BID #60 packet 10/24/24 Allergies Allergy/AdvReac Type Severity Reaction Status Date / Time bee venom protein (honey bee) Allergy SWELLING , Verified 10/21/24 10:10 AND ITCHING Bleach (Sodium Hypochlorite) Allergy Rash/Hives Verified 10/21/24 10:10 nitrofurantoin Allergy Rash/Hives Verified 10/21/24 10:10 [From Macrobid] nitrofurantoin Allergy Rash/Hives Verified 10/21/24 10:10 macrocrystalline [From Macrobid] moxifloxacin [From Avelox] AdvReac Nausea & Verified 10/21/24 10:10 Vomiting NSAIDS (Non-Steroidal AdvReac Had Verified 10/21/24 10:10 Anti-Inflamma gastric sleeve surgery, causes bleeds. seasonal allergies Allergy congestion Uncoded 10/20/24 19:55 and sneezing Review of Systems ROS Statement: Those systems with pertinent positive or pertinent negative responses have been documented in the HPI. ROS Other: All systems not noted in ROS Statement are negative. Past Medical History Past Medical History: Asthma, Cancer, COPD, CVA/TIA, GERD/Reflux, Hypertension, Musculoskeletal Disorder, Neurologic Disorder, Sleep Apnea/CPAP/BIPAP, Thyroid Disorder Additional Past Medical History / Comment(s): smoking-related interstitial lung disease, doesn't use CPAP, history of seizure at the age of 16 related to med. to stop breast milk, endometriosis, chronic back pain, plantar fasciitis, hx. of Achilles tendinitis, probably antibiotic induced. She also has history of hypothyroidism, ALLERGIC rhinitis, migraines, uses oxygen 2L prn, recent iron infusion, MS , tia 2020 no residual issues, tinnitus, balance issues, Migraine. Dx. w/ leukemia, 10/2023, Diagnosed with lung cancer 2023 History of Any Multi-Drug Resistant Organisms: None Reported Past Surgical History: Bariatric Surgery, Cholecystectomy, Hysterectomy, Tubal L igation, Uterine Ablation Additional Past Surgical History / Comment(s): LEEP PROCEDURE X 2 r/t cervical dysplasia, EGD, BACK INJECTIONS FOR PAIN. The patient has also undergone thoracic/thoracoscopic wedge biopsy of the right lung. 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; R and Y bypass at [facility] 2019, TRACHEOSTOMY-RESOLVED Past Anesthesia/Blood Transfusion Reactions: Motion Sickness Additional Past Anesthesia/Blood Transfusion Reaction / Comment(s): no problem w/blood transfusion Past Psychological History: Anxiety, Depression Smoking Status: Current every day smoker Past Alcohol Use History: None Reported Past Drug Use History: None Reported - Past Family History Sister(s) Family Medical History: Cancer Additional Family Medical History / Comment(s): ovarian Mother Additional Family Medical History / Comment(s): breast cancer Father Family Medical History: COPD, CVA/TIA, Myocardial Infarction (DE) Additional Family Medical History / Comment(s): HEART PROBLEMS, AT AGE 64 General Exam General appearance: alert, in no apparent distress Head exam: Present: atraumatic, normocephalic, normal inspection Eye exam: Present: normal appearance, PERRL, EOMI. Absent: scleral icterus, conjunctival injection, periorbital swelling ENT exam: Present: normal exam, mucous membranes moist Neck exam: Present: normal inspection. Absent: tenderness, meningismus, lymphadenopathy Respiratory exam: Present: normal lung sounds bilaterally. Absent: respiratory distress, wheezes, rales, rhonchi, stridor Cardiovascular Exam: Present: regular rate, normal rhythm, normal heart sounds. Absent: systolic murmur, diastolic murmur, rubs, gallop, clicks GI/Abdominal exam: Present: soft, normal bowel sounds. Absent: distended, tenderness, guarding, rebound, rigid Extremities exam: Present: normal inspection, full ROM, normal capillary refill. Absent: tenderness, pedal edema, joint swelling, calf tenderness Back exam: Present: normal inspection Neurological exam: Present: alert, oriented X3, CN II-XII intact Psychiatric exam: Present: normal affect, normal mood Skin exam: Present: warm, dry, intact, normal color. Absent: rash Course Vital Signs 10/20/24 10/20/24 10/20/24 19:48 20:06 20:07 Temperature 98.5 F Pulse Rate 106 H 109 H Respiratory 22 24 Rate Blood Pressure 150/108 O2 Sat by Pulse 93 L Oximetry 10/20/24 10/20/24 10/20/24 20:27 21:36 21:44 Temperature Pulse Rate 100 113 H 112 H Respiratory 18 Rate Blood Pressure 154/110 O2 Sat by Pulse 97 Oximetry 10/20/24 22:03 Temperature Pulse Rate 100 Respiratory Rate Blood Pressure O2 Sat by Pulse Oximetry - Reevaluation(s) Reevaluation #1: 10/20/24 20:33 Medical records reviewed Reevaluation #2: 10/20/24 20:34 Patient symptoms are mildly improving Reevaluation #3: 10/20/24 20:34 Patient informed of results and questions answered Reevaluation #4: Was pt. sent in by a medical professional or institution (, PA, INSURANCE VERIFICATION CLERK, urgent care, hospital, or [facility]...) When possible be specific @ -no Did you speak to anyone other than the patient for history (EMS, parent, family, police, friend...)? What history was obtained from this source @ -no Did you review nursing and triage notes (agree or disagree)? Why? @ -agree Are old charts reviewed (outside hosp., previous admission, EMS record, old EKG, old radiological studies, urgent care reports/EKG's, [facility] records)? Report findings @ -yes Differential Diagnosis (chest pain, altered mental status, abdominal pain women, abdominal pain men, vaginal bleeding, weakness, fever, dyspnea, syncope, headache, dizziness, GI bleed, back pain, seizure, CVA, palpatations, mental health, musculoskeletal)? @ -prior EKG interpreted by me (3pts min.). @ -yes X-rays interpreted by me (1pt min.). @ -yes negative for acute disease CT interpreted by me (1pt min.). @ -no U/S interpreted by me (1pt. min.). @ -no What testing was considered but not performed or refused? (CT, X-rays, U/S, labs)? Why? @ -none What meds were considered but not given or refused? Why? @ -none Did you discuss the management of the patient with other professionals (professionals i.e. , PA, INSURANCE VERIFICATION CLERK, lab, RT, psych nurse, social service worker, vocal artist, teacher, security vehicle patrol officer, case management rn)? Give summary @ -no Was smoking cessation discussed for >3mins.? @ -no Was critical care preformed (if so, how long)? @ -yes31 Were there social determinants of health that impacted care today? How? (Homelessness, low income, unemployed, alcoholism, drug addiction, transportation, low edu. Level, literacy, decrease access to med. care, long term, rehab)? @ -none Was there de-escalation of care discussed even if they declined (Discuss DNR or withdrawal of care, Hospice)? DNR status @ -no What co-morbidities impacted this encounter? (DM, HTN, Smoking, COPD, CAD, Cancer, CVA, ARF, Chemo, Hep., AIDS, mental health diagnosis, sleep apnea, morbi d obesity)? @ -none Was patient admitted / discharged? Hospital course, mention meds given and rout e, prescriptions, significant lab abnormalities, going to OR and other pertinent info. @ - 49 female admitted for COPD exacerbation with hypoxia Admitted Undiagnosed new problem with uncertain prognosis? @ -no Drug Therapy requiring intensive monitoring for toxicity (Heparin, Nitro, Insulin, Cardizem)? @ -no Were any procedures done? @ -no Diagnosis/symptom? @ -COPD with hypoxia Acute, or Chronic, or Acute on Chronic? @ -Acute Uncomplicated (without systemic symptoms) or Complicated (systemic symptoms)? @ -Complicated Side effects of treatment? @ -no Exacerbation, Progression, or Severe Exacerbation? @ -exacerbation Poses a threat to life or bodily function? How? (Chest pain, [place], [place], pneumonia, PE, COPD, DKA, ARF, appy, cholecystitis, CVA, Diverticulitis, Homicidal, Suicidal, threat to staff... and all critical care pts) @ -yes hypoxic respiratory distress Reevaluation #5: Differential Dyspnea: Coronary syndrome, arrhythmia, tamponade, asthma, COPD, pulmonary embolism, pneumonia, pneumothorax, pulmonary effusion, anaphylaxis, diabetic ketoacidosis, flailed chest, pulmonary contusion, diaphragmatic rupture, anemia, neuromuscular, this is not meant to be an all-inclusive list. - Consultations Consultation #1: Spoke with Dr. Kebede who agrees to admit this patient Medical Decision Making - Medical Decision Making 49 female admitted for COPD exacerbation with hypoxia - Lab Data Result diagrams: 10/21/24 01:00 10/21/24 01:00 Lab Results 10/20/24 10/20/24 10/20/24 Range/Units 20:19 20:19 20:19 WBC 37.07 H (4.50-10.00) 10*3/uL RBC 4.53 (4.10-5.20) 10*6/uL Hgb 14.8 (12.0-15.0) g/dL Hct 42.3 (37.2-46.3) % MCV 93.4 (80.0-97.0) fL MCH 32.7 H (27.0-32.0) pg MCHC 35.0 (32.0-37.0) g/dL Plt Count 482 H (140-440) 10*3/uL MPV 8.9 L (9.5-12.2) fL Immature Gran % (Auto) 1.7 % Neutrophils % 89.4 % Lymphocytes % 1.9 % Monocytes % 6.6 % Eosinophils % 0.0 % Basophils % 0.4 % Immature Gran # 0.63 H (0.00-0.04) 10*3/uL Neutrophils # 33.12 H (1.80-7.70) 10*3/uL Lymphocytes # 0.72 L (0.90-5.00) 10*3/uL Monocytes # 2.46 H (0.20-1.00) 10*3/uL Eosinophils # 0.00 L (0.04-0.35) 10*3/uL Basophils # 0.14 H (0.00-0.10) 10*3/uL Manual Slide Review Performed Alvarado-Ranson Bodies Present PT 10.2 (10.0-12.5) sec INR 0.9 (<1.2) APTT 23.0 (22.0-30.0) sec Sodium 133 L (137-145) mmol/L Potassium 4.3 (3.5-5.1) mmol/L Chloride 94 L (98-107) mmol/L Carbon Dioxide 29 (22-30) mmol/L Anion Gap 10 mmol/L BUN 16 (7-17) mg/dL Creatinine 0.59 (0.52-1.04) mg/dL Est GFR (CKD-EPI)AfAm >90 (>60 ml/min/1.73 sqM) Est GFR (CKD-EPI)NonAf >90 (>60 ml/min/1.73 sqM) Glucose 132 H (74-99) mg/dL Plasma Lactic Acid Miguel Angel (0.7-2.0) mmol/L Calcium 9.7 (8.4-10.2) mg/dL Magnesium 1.8 (1.6-2.3) mg/dL Total Bilirubin 0.8 (0.2-1.3) mg/dL AST 48 H (14-36) U/L ALT 62 H (4-34) U/L Alkaline Phosphatase 170 H (38-126) U/L Troponin I (0.000-0.034) ng/mL NT-Pro-B Natriuret Pep 6350 pg/mL Total Protein 6.6 (6.3-8.2) g/dL Albumin 3.8 (3.5-5.0) g/dL 10/20/24 10/20/24 Range/Units 20:19 20:19 WBC (4.50-10.00) 10*3/uL RBC (4.10-5.20) 10*6/uL Hgb (12.0-15.0) g/dL Hct (37.2-46.3) % MCV (80.0-97.0) fL MCH (27.0-32.0) pg MCHC (32.0-37.0) g/dL Plt Count (140-440) 10*3/uL MPV (9.5-12.2) fL Immature Gran % (Auto) % Neutrophils % % Lymphocytes % % Monocytes % % Eosinophils % % Basophils % % Immature Gran # (0.00-0.04) 10*3/uL Neutrophils # (1.80-7.70) 10*3/uL Lymphocytes # (0.90-5.00) 10*3/uL Monocytes # (0.20-1.00) 10*3/uL Eosinophils # (0.04-0.35) 10*3/uL Basophils # (0.00-0.10) 10*3/uL Manual Slide Review Alvarado-Ranson Bodies PT (10.0-12.5) sec INR (<1.2) APTT (22.0-30.0) sec Sodium (137-145) mmol/L Potassium (3.5-5.1) mmol/L Chloride (98-107) mmol/L Carbon Dioxide (22-30) mmol/L Anion Gap mmol/L BUN (7-17) mg/dL Creatinine (0.52-1.04) mg/dL Est GFR (CKD-EPI)AfAm (>60 ml/min/1.73 sqM) Est GFR (CKD-EPI)NonAf (>60 ml/min/1.73 sqM) Glucose (74-99) mg/dL Plasma Lactic Acid Miguel Angel 1.3 (0.7-2.0) mmol/L Calcium (8.4-10.2) mg/dL Magnesium (1.6-2.3) mg/dL Total Bilirubin (0.2-1.3) mg/dL AST (14-36) U/L ALT (4-34) U/L Alkaline Phosphatase (38-126) U/L Troponin I <0.012 (0.000-0.034) ng/mL NT-Pro-B Natriuret Pep pg/mL Total Protein (6.3-8.2) g/dL Albumin (3.5-5.0) g/dL - EKG Data -: EKG Interpreted by Me (EKG is sinus tachycardia 100 [place] 142 QRS 85 QTc 390) - Radiology Data Radiology results: report reviewed (Chest x-ray is for acute disease), image reviewed Critical Care Time Critical Care Time: Yes Total Critical Care Time: 31 Disposition Clinical Impression: COPD exacerbation, Acute respiratory failure with hypoxia, Asthma with status asthmaticus Disposition: ADMITTED IP TO THIS HOSP Condition: Serious Is patient prescribed a controlled substance at d/c from ED?: No Time of Disposition: 20:30
[2024-10-20] MEDS: SODIUM CHLORIDE 0.9% 1,000 ML IV SCH ×2 (20:22→21:33)
[2024-10-20] MEDS: methylPREDNISolone SOD SUCCI 125 MG/2 ML VIAL IV STA (20:22)
[2024-10-20 20:30] LABS: Basophils # (A) 0.14 10*3/uL (0.00-0.10); Basophils % (A) 0.4 %; Eosinophils # (A) 0.00 10*3/uL (0.04-0.35); Eosinophils % (A) 0.0 %; HCT 42.3 % (37.2-46.3); HGB 14.8 g/dL (12.0-15.0); Lymphocytes # (A) 0.72 10*3/uL (0.90-5.00); Lymphocytes % (A) 1.9 %; MCH 32.7 pg (27.0-32.0); MCHC 35.0 g/dL (32.0-37.0); MCV 93.4 fL (80.0-97.0); Monocytes # (A) 2.46 10*3/uL (0.20-1.00); Monocytes % (A) 6.6 %; Neutrophils # (A) 33.12 10*3/uL (1.80-7.70); Neutrophils % (A) 89.4 %; Platelet Count 482 10*3/uL (140-440); RBC 4.53 10*6/uL (4.10-5.20); RDW 14.2 % (11.5-14.5); WBC 37.07 10*3/uL (4.50-10.00)
[2024-10-20] MEDS ORDERED: NALOXONE 0.4 MG/ML 1 ML VIAL IV PRN (20:35)
[2024-10-20 20:37] LABS: INR 0.9 (<1.2); Partial Thromboplastin Time 23.0 sec (22.0-30.0); Prothrombin Time 10.2 sec (10.0-12.5)
[2024-10-20 20:40] LABS: ALT 62 U/L (4-34); AST 48 U/L (14-36); African American GFR (CKD) >90 (>60 ml/min/1.73 sqM); Albumin 3.8 g/dL (3.5-5.0); Alkaline Phosphatase 170 U/L (38-126); Anion Gap 10 mmol/L; Blood Urea Nitrogen 16 mg/dL (7-17); Calcium 9.7 mg/dL (8.4-10.2); Carbon Dioxide 29 mmol/L (22-30); Chloride 94 mmol/L (98-107); Glucose 132 mg/dL (74-99); Magnesium 1.8 mg/dL (1.6-2.3); Non-African American GFR(CKD) >90 (>60 ml/min/1.73 sqM); Potassium 4.3 mmol/L (3.5-5.1); Sodium 133 mmol/L (137-145); Total Protein 6.6 g/dL (6.3-8.2)
[2024-10-20 20:48] LABS: NT-Pro-B-Type Natriuretic Pept 6350 pg/mL
--- NOTE | 2024-10-20 21:16 | XR ---
EXAMINATION TYPE: XR chest 2V DATE OF EXAM: 10/20/2024 8:40 PM CLINICAL INDICATION:Female, 49 years old with history of difficulty breathing; [facility] COMPARISON: Chest radiograph 08/29/2024 TECHNIQUE: XR chest 2V Frontal view of the chest. FINDINGS: Lungs/Pleura: There is no evidence of pneumothorax. Patchy and hazy airspace opacities are seen supe rimposed on emphysematous appearing lungs. Pulmonary vascularity: Unremarkable. Heart/mediastinum: Cardiomediastinal silhouette is unremarkable. Atherosclerotic calcifications are seen in the aorta. Musculoskeletal: No acute osseous pathology. IMPRESSION: Patchy and hazy airspace disease in the bilateral lungs superimposed on emphysematous appearing lungs . Correlate for an acute infectious/inflammatory process. [facility], , 10/20/2024 9:14 PM
[2024-10-20] MEDS: MORPHINE SULFATE 4 MG/ML SYRINGE IVP STA (21:33)
[2024-10-20 21:46] LABS: Howell-Jolly Bodies Present
[2024-10-20] MEDS: LEVOFLOXACIN 750MG-D5W PMX 750 MG in DEXTROSE/WATER 1 150ML.BAG IVPB ONE (22:57)
[2024-10-21] MEDS: KETOROLAC 15 MG/ML 1 ML VIAL IVP PRN (00:02)
[2024-10-21] MEDS: methylPREDNISolone SOD SUCCI 125 MG/2 ML VIAL IV SCH (00:02)
[2024-10-21] MEDS: LEVOFLOXACIN 750MG-D5W PMX 750 MG in DEXTROSE/WATER 1 150ML.BAG IVPB STA (00:27)
[2024-10-21] MEDS: MORPHINE SULFATE 4 MG/ML SYRINGE IV PRN (02:05)
[2024-10-21] MEDS: SODIUM CHLORIDE 0.9% 1,000 ML IV ONE (03:26)
[2024-10-21] MEDS: SODIUM CHLORIDE 0.9% 1,000 ML IV SCH (03:28)
[2024-10-21 09:06] LABS: HCT 43.1 % (37.2-46.3); HGB 13.7 g/dL (12.0-15.0); MCH 31.6 pg (27.0-32.0); MCHC 31.8 g/dL (32.0-37.0); MCV 99.3 FL (80.0-97.0); NRBC Per 100 WBC 0.06 X 10*3/uL (0.00-0.01); Platelet Count 499 X 10*3/uL (140-440); RBC 4.34 X 10*6/uL (4.10-5.20); RDW 14.7 % (11.5-14.5); WBC 35.48 X 10*3/uL (4.50-10.00)
[2024-10-21 09:12] LABS: ALT 57 U/L (8-44); AST 38 U/L (13-35); Albumin 3.5 g/dL (3.8-4.9); Albumin/Globulin Ratio 1.46 Ratio (1.60-3.17); Alkaline Phosphatase 147 U/L (41-126); Anion Gap 14.90 mmol/L (4.00-12.00); BUN/Creat Ratio 13.75 Ratio (12.00-20.00); Blood Urea Nitrogen 11.0 mg/dL (9.0-27.0); Calcium 9.3 mg/dL (8.7-10.3); Carbon Dioxide 26.1 mmol/L (21.6-31.8); Chloride 96 mmol/L (96-109); Globulin 2.4 g/dL (1.6-3.3); Glucose 164 mg/dL (70-110); Magnesium 1.6 mg/dL (1.5-2.4); Potassium 4.6 mmol/L (3.5-5.5); Sodium 137 mmol/L (135-145); Total Protein 5.9 g/dL (6.2-8.2)
[2024-10-21] MEDS: ALBUTEROL NEBULIZED 2.5 MG/3 ML INHALATION SCH (09:23)
[2024-10-21 09:41] LABS: Basophils # (A) 0.17 X 10*3/uL (0.00-0.10); Basophils % (A) 0.5 %; Eosinophils # (A) 0 X 10*3/uL (0.04-0.35); Eosinophils % (A) 0 %; Immature Grans, Automated 2.20 %; Lymphocytes # (A) 0.41 X 10*3/uL (0.90-5.00); Lymphocytes % (A) 1.2 %; Macrocytosis (M) 2+ (None Seen); Monocytes # (A) 1.06 X 10*3/uL (0.20-1.00); Monocytes % (A) 3.0 %; Neutrophils # (A) 33.05 X 10*3/uL (1.80-7.70); Neutrophils % (A) 93.1 %
--- NOTE | 2024-10-21 09:53 | P.HPIM ---
History of Present Illness Patient is a pleasant 57-year-old female came with complaints of shortness of breath. Patient does have history of COPD does use 2 L of oxygen has been using 3 L lately. Patient does have wheezing on exam. Chest x-ray showed some no nspecific infiltrate and it was read as possibility of inflammatory or infectious process. Although patient does have cough without any sputum production clinically does not appear to be have pneumonia. I will order a procalcitonin level patient is presently on levofloxacin which can be discontinu ed if procalcitonin is is not consistent with bacterial pneumonia. Patient continues to smoke extensive counseling was provided regarding this. Patient has chronically elevated white count and patient was told she has chronic leukemia. REVIEW OF SYSTEMS: All other systems are negative except those mentioned in the HPI PHYSICAL EXAMINATION: GENERAL: The patient is alert and oriented x3, not in any acute distress. Well developed, well nourished. HEENT: Pupils are round and equally reacting to light. EOMI. No scleral icterus. No conjunctival pallor. Normocephalic, atraumatic. No pharyngeal erythema. No thyromegaly. CARDIOVASCULAR: S1 and S2 present. No murmurs, rubs, or gallops. PULMONARY: Mild expiratory wheezing on exam ABDOMEN: Soft, nontender, nondistended, normoactive bowel sounds. No palpable organomegaly. MUSCULOSKELETAL: No joint swelling or deformity. EXTREMITIES: No cyanosis, clubbing, or pedal edema. NEUROLOGICAL: Gross neurological examination did not reveal any focal deficits. SKIN: No rashes. Assessment and plan -Acute on chronic hypercapnic and hypoxic respiratory failure secondary to COPD exacerbation: Patient will continue on systemic steroids and history of treatments if procalcitonin is negative probably antibiotics can be discontinued at that time - Lactic acidosis secondary to intravascular volume depletion rather than infection received IV fluids with improvement in lactic acid Lasix will be held. Patient uses Lasix on as-needed basis for peripheral edema does not have any history of congestive heart failure - Chronic lymphocytic leukemia monitoring by oncology as an outpatient - Hypertension - Sleep apnea - Hypothyroidism For above-mentioned chronic medical problems patient will be resumed on appropriate home medications DVT prophylaxis: Lovenox GI prophylaxis Protonix Past Medical History Past Medical History: Asthma, Cancer, COPD, CVA/TIA, GERD/Reflux, Hypertension, Musculoskeletal Disorder, Neurologic Disorder, Sleep Apnea/CPAP/BIPAP, Thyroid Disorder Additional Past Medical History / Comment(s): smoking-related interstitial lung disease, doesn't use CPAP, history of seizure at the age of 16 related to med. to stop breast milk, endometriosis, chronic back pain, plantar fasciitis, hx. of Achilles tendinitis, probably antibiotic induced. She also has history of hypothyroidism, ALLERGIC rhinitis, migraines, uses oxygen 2L prn, recent iron infusion, MS , tia 2020 no residual issues, tinnitus, balance issues, Migraine. Dx. w/ leukemia, 10/2023, Diagnosed with lung cancer 2023 History of Any Multi-Drug Resistant Organisms: None Reported Past Surgical History: Bariatric Surgery, Cholecystectomy, Hysterectomy, Tubal Ligation, Uterine Ablation Additional Past Surgical History / Comment(s): LEEP PROCEDURE X 2 r/t cervical dysplasia, EGD, BACK INJECTIONS FOR PAIN. The patient has also undergone thoracic/thoracoscopic wedge biopsy of the right lung. 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; R and Y bypass at [facility] 2018, TRACHEOSTOMY-RESOLVED Past Anesthesia/Blood Transfusion Reactions: No Reported Reaction, Motion Sickness Additional Past Anesthesia/Blood Transfusion Reaction / Comment(s): no problem w/blood transfusion Past Psychological History: Anxiety, Depression Additional Psychological History / Comment(s): Recently Smoking Status: Current every day smoker Past Alcohol Use History: None Reported Additional Past Alcohol Use History / Comment(s): STARTED SMOKING AT AGE 14 - STOPPED SMOKING on November 23, 2017. (Heaviest smoking amount was 3/4 pack/day). Pt started smoking again 2020, Quit smoking January 2024. pt is current smoker 10/20/24 half a pack a day. Past Drug Use History: None Reported - Past Family History Sister(s) Family Medical History: Cancer Additional Family Medical History / Comment(s): ovarian Mother Additional Family Medical History / Comment(s): breast cancer Father Family Medical History: COPD, CVA/TIA, Myocardial Infarction ([place]) Additional Family Medical History / Comment(s): HEART PROBLEMS, AT AGE 64 Medications and Allergies Home Medications Medication Instructions Recorded Confirmed Type Levothyroxine Sodium [Synthroid] 50 mcg PO DAILY 01/05/14 08/29/24 History Pantoprazole Sodium [Protonix] 40 mg PO DAILY 05/28/18 08/29/24 History Albuterol Sulfate [Albuterol 2 puff INHALATION RT-Q6H PRN 02/19/23 08/29/24 History Sulfate Hfa] Pravastatin Sodium [Pravachol] 40 mg PO HS 08/21/23 08/29/24 History LORazepam [Ativan] 0.5 mg PO BID PRN 01/18/24 08/29/24 History Nicotine 21Mg/24Hr Patch [Habitrol] 1 patch TRANSDERM DAILY PRN 01/18/24 08/29/24 History oxyCODONE-APAP 10-325MG [Percocet 1 tab PO QID 01/18/24 08/29/24 History 10-325 mg] Fluticasone/Umeclidin/Vilanter 1 puff INHALATION RT-DAILY 03/22/24 08/29/24 History [Trelelio Ellipta 100-62.5-25] Losartan [Cozaar] 25 mg PO HS 03/22/24 08/29/24 History valACYclovir HCL [Valacyclovir] 2,000 mg PO DAILY PRN 03/22/24 08/29/24 History Albuterol Nebulized [Ventolin 2.5 mg INHALATION RT-QID PRN 06/02/24 08/29/24 History Nebulized] Gabapentin 600 mg PO TID 06/02/24 08/29/24 History Metoprolol Succinate (ER) [Toprol 100 mg PO HS 06/02/24 08/29/24 History XL] Cyclobenzaprine [Flexeril] 10 mg PO Q8H PRN #15 tab 08/18/24 08/29/24 Rx Cyclobenzaprine [Flexeril] 5 mg PO BID PRN 08/29/24 08/29/24 History Ergocalciferol [Vitamin D2 (1250 1,250 mcg PO STEWART 08/29/24 08/29/24 History Mcg = 92537 Iu)] Famotidine [Pepcid] 20 mg PO DAILY 08/29/24 08/29/24 History Fluconazole [Diflucan] 100 mg PO DAILY 08/29/24 08/29/24 History Furosemide [Lasix] 20 mg PO DAILY PRN 08/29/24 08/29/24 History Ipratropium-Albuterol Nebulize 3 ml INHALATION RT-QID 08/29/24 08/29/24 History [Duoneb 0.5 mg-3 mg/3 ml Soln] Montelukast [Singulair] 10 mg PO HS 08/29/24 08/29/24 History Promethazine HCl [Phenergan Syrup] 25 mg PO DAILY PRN 08/29/24 08/29/24 History Risedronate Sodium [Actonel] 35 mg PO DIRECTED 08/29/24 08/29/24 History predniSONE See Taper PO DAILY 08/29/24 08/29/24 History methylPREDNISolone Dose Pack 24 mg PO DAILY #1 dispenser 09/01/24 Rx [Medrol Dose Pack] Ofatumumab [Kesimpta Pen] 20 mg SQ Q30D #1 each 09/17/24 Rx Ondansetron [Zofran] 4 mg PO Q8HR PRN #15 tab 10/16/24 Rx Allergies Allergy/AdvReac Type Severity Reaction Status Date / Time bee venom protein (honey bee) Allergy SWELLING , Verified 10/20/24 19:55 AND ITCHING Bleach (Sodium Hypochlorite) Allergy Rash/Hives Verified 10/20/24 19:55 nitrofurantoin Allergy Rash/Hives Verified 10/20/24 19:55 [From Macrobid] nitrofurantoin Allergy Rash/Hives Verified 10/20/24 19:55 macrocrystalline [From Macrobid] moxifloxacin [From Avelox] AdvReac Nausea & Verified 10/20/24 19:55 Vomiting NSAIDS (Non-Steroidal AdvReac Had Verified 10/20/24 19:55 Anti-Inflamma gastric sleeve surgery, causes bleeds. seasonal allergies Allergy congestion Uncoded 10/20/24 19:55 and sneezing Physical Exam Vitals: Vital Signs Temp Pulse Pulse Resp BP BP Pulse Ox 10/21/24 09:37 92 10/21/24 09:24 88 10/21/24 07:50 105 H 16 10/21/24 07:07 98.2 F 105 H 16 165/86 95 10/21/24 00:34 98.4 F 108 H 19 149/92 100 10/20/24 22:19 98.4 F 115 H 20 128/77 94 L 10/20/24 22:03 100 10/20/24 21:44 112 H 10/20/24 21:36 113 H 18 154/110 97 10/20/24 20:27 100 10/20/24 20:07 24 10/20/24 20:06 109 H 10/20/24 19:48 98.5 F 106 H 22 150/108 93 L Intake and Output 10/20/24 10/21/24 10/21/24 22:59 06:59 14:59 Other: Weight 54.431 kg Results CBC & Chem 7: 10/21/24 01:00 10/21/24 01:00 Labs: Abnormal Lab Results - Last 24 Hours (Table) 10/20/24 10/20/24 10/21/24 Range/Units 20:19 20:19 01:00 WBC 37.07 H 35.48 H (4.50-10.00) 10*3/uL MCV 99.3 H (80.0-97.0) FL MCH 32.7 H (27.0-32.0) pg MCHC 31.8 L (32.0-37.0) g/dL RDW 14.7 H (11.5-14.5) % Plt Count 482 H 499 H (140-440) 10*3/uL MPV 8.9 L (9.5-12.2) fL Immature Gran # 0.63 H 0.79 H (0.00-0.04) 10*3/uL Neutrophils # 33.12 H 33.05 H (1.80-7.70) 10*3/uL Lymphocytes # 0.72 L 0.41 L (0.90-5.00) 10*3/uL Monocytes # 2.46 H 1.06 H (0.20-1.00) 10*3/uL Eosinophils # 0.00 L 0 L (0.04-0.35) 10*3/uL Basophils # 0.14 H 0.17 H (0.00-0.10) 10*3/uL NRBC/100 WBC Diff 0.06 H (0.00-0.01) X 10*3/uL Macrocytosis (manual) 2+ A (None Seen) Sodium 133 L (137-145) mmol/L Chloride 94 L (98-107) mmol/L Anion Gap (4.00-12.00) mmol/L Glucose 132 H (74-99) mg/dL Plasma Lactic Acid Miguel Angel (0.7-2.0) mmol/L AST 48 H (14-36) U/L ALT 62 H (4-34) U/L Alkaline Phosphatase 170 H (38-126) U/L Total Protein (6.2-8.2) g/dL Albumin (3.8-4.9) g/dL Albumin/Globulin Ratio (1.60-3.17) Ratio 10/21/24 10/21/24 10/21/24 Range/Units 01:00 01:08 05:12 WBC (4.50-10.00) 10*3/uL MCV (80.0-97.0) FL MCH (27.0-32.0) pg MCHC (32.0-37.0) g/dL RDW (11.5-14.5) % Plt Count (140-440) 10*3/uL MPV (9.5-12.2) fL Immature Gran # (0.00-0.04) 10*3/uL Neutrophils # (1.80-7.70) 10*3/uL Lymphocytes # (0.90-5.00) 10*3/uL Monocytes # (0.20-1.00) 10*3/uL Eosinophils # (0.04-0.35) 10*3/uL Basophils # (0.00-0.10) 10*3/uL NRBC/100 WBC Diff (0.00-0.01) X 10*3/uL Macrocytosis (manual) (None Seen) Sodium (137-145) mmol/L Chloride (98-107) mmol/L Anion Gap 14.90 H (4.00-12.00) mmol/L Glucose 164 H (74-99) mg/dL Plasma Lactic Acid Miguel Angel 4.8 H* 2.7 H* (0.7-2.0) mmol/L AST 38 H (14-36) U/L ALT 57 H (4-34) U/L Alkaline Phosphatase 147 H (38-126) U/L Total Protein 5.9 L (6.2-8.2) g/dL Albumin 3.5 L (3.8-4.9) g/dL Albumin/Globulin Ratio 1.46 L (1.60-3.17) Ratio Thrombosis Risk Factor Assmnt - Choose All That Apply Each Factor Represents 1 point: Age 41-60 years Thrombosis Risk Factor Assessment Total Risk Factor Score: 1 Thrombosis Risk Factor Assessment Level: Low Risk
[2024-10-21] MEDS ORDERED: IPRATROPIUM-ALBUTEROL 3 ML NEB INHALATION PRN (10:00)
[2024-10-21] MEDS: IPRATROPIUM-ALBUTEROL 3 ML NEB INHALATION SCH (12:37)
--- NOTE | 2024-10-21 12:57 | P.CNPUL ---
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 Additional biopsy findings revealed advanced interstitial pneumonitis consistent with usual interstitial pneumonia (UIP) interstitial lung disease. She also has a history of hypertension, hypothyroidism, hyperlipidemia, MS, anxiety. She does have significant COPD. Her FEV1 value 61% of predicted. She is maintained on Trelegy, prednisone and oxygen. She has chronic and ongoing tobacco dependence. She has quit occasionally but is currently smoking again. She has had multiple admissions to the hospital for COPD exacerbations. She presented here again yesterday with complaints of increasing shortness of breath, cough or congestion. Most recent discharge was August 2024. Chest x-ray reveals hazy airspace disease in the bilateral lungs superimposed on emphysematous changes. White count 35.4. Hemoglobin 13.7. Platelets 499. Sodium 137. Potassium 4.6. Bicarb 26. BUN 11. Creatinine 0.5. Glucose 165. AST 38. ALT 57. Alk phos 147. She is seen today in consultation on the regular medical floor. Currently sitting up in bed. Awake and alert in no acute distress. Maintaining good O2 saturations in the 90s on 3 L/min per nasal cannula. She has been afebrile. Hemodynamically stable. Review of Systems REVIEW OF SYSTEMS: CONSTITUTIONAL: Denies any recent significant weight loss or weight gain. EYES: Denies change in vision. EARS, NOSE, MOUTH, THROAT: Denies headaches, denies sore throat. CARDIOVASCULAR: Denies chest pain, palpitations or syncopal episodes. RESPIRATORY: Positive for shortness of breath, cough, congestion no hemoptysis. GASTROINTESTINAL: Denies change in appetite, denies abdominal pain GENITOURINARY: Denies hematuria, denies infections. MUSKULOSKELETAL: Denies pain, denies swelling. INTEGUMENTARY: Denies rash, denies eczema. NEUROLOGICAL: Denies recent memory loss, no recent seizure activity. PSYCHIATRIC: Denies anxiety, denies depression. HEMATOLOGIC/LYMPHATIC: Denies anemia, denies enlarged lymph nodes. Past Medical History Past Medical History: Asthma, Cancer, COPD, CVA/TIA, GERD/Reflux, Hypertension, Musculoskeletal Disorder, Neurologic Disorder, Sleep Apnea/CPAP/BIPAP, Thyroid Disorder Additional Past Medical History / Comment(s): smoking-related interstitial lung disease, doesn't use CPAP, history of seizure at the age of 16 related to med. to stop breast milk, endometriosis, chronic back pain, plantar fasciitis, hx. of Achilles tendinitis, probably antibiotic induced. She also has history of hypothyroidism, ALLERGIC rhinitis, migraines, uses oxygen 2L prn, recent iron infusion, MS , tia 2020 no residual issues, tinnitus, balance issues, Migraine. Dx. w/ leukemia, 10/2023, Diagnosed with lung cancer 2023 History of Any Multi-Drug Resistant Organisms: None Reported Past Surgical History: Bariatric Surgery, Cholecystectomy, Hysterectomy, Tubal Ligation, Uterine Ablation Additional Past Surgical History / Comment(s): LEEP PROCEDURE X 2 r/t cervical dysplasia, EGD, BACK INJECTIONS FOR PAIN. The patient has also undergone thoracic/thoracoscopic wedge biopsy of the right lung. sleeve gastrectomy Splenectomy; R and Y bypass at [facility] 2019, TRACHEOSTOMY-RESOLVED Past Anesthesia/Blood Transfusion Reactions: No Reported Reaction, Motion Sickness Additional Past Anesthesia/Blood Transfusion Reaction / Comment(s): no problem w/blood transfusion Past Psychological History: Anxiety, Depression Additional Psychological History / Comment(s): Recently Smoking Status: Current every day smoker Past Alcohol Use History: None Reported Additional Past Alcohol Use History / Comment(s): STARTED SMOKING AT AGE 14 - STOPPED SMOKING on November 23, 2017. (Heaviest smoking amount was 3/4 pack/day). Pt started smoking again 2020, Quit smoking January 2024. pt is current smoker 10/20/24 half a pack a day. Past Drug Use History: None Reported - Past Family History Sister(s) Family Medical History: Cancer Additional Family Medical History / Comment(s): ovarian Mother Additional Family Medical History / Comment(s): breast cancer Father Family Medical History: COPD, CVA/TIA, Myocardial Infarction ([place]) Additional Family Medical History / Comment(s): HEART PROBLEMS, AT AGE 64 Medications and Allergies Home Medications Medication Instructions Recorded Confirmed Type Levothyroxine Sodium [Synthroid] 50 mcg PO DAILY 01/05/14 10/21/24 History Albuterol Sulfate [Albuterol 2 puff INHALATION RT-Q6H PRN 02/19/23 10/21/24 History Sulfate Hfa] Pravastatin Sodium [Pravachol] 40 mg PO HS 08/21/23 10/21/24 History LORazepam [Ativan] 0.5 mg PO BID PRN 01/18/24 10/21/24 History Nicotine 21Mg/24Hr Patch [Habitrol] 1 patch TRANSDERM DAILY PRN 01/18/2410/21 History oxyCODONE-APAP 10-325MG [Percocet 1 tab PO QID 01/18/24 10/21/24 History 10-325 mg] Fluticasone/Umeclidin/Vilanter 1 puff INHALATION RT-DAILY 03/22/24 10/21/24 History [Trelegy Ellipta 100-62.5-25] Losartan [Cozaar] 25 mg PO HS 03/22/24 10/21/24 History Albuterol Nebulized [Ventolin 2.5 mg INHALATION RT-QID PRN 06/02/24 10/21/24 History Nebulized] Gabapentin 600 mg PO TID 06/02/24 10/21/24 History Metoprolol Succinate (ER) [Toprol 100 mg PO HS 06/02/24 10/21/24 History XL] Cyclobenzaprine [Flexeril] 5 mg PO BID 08/29/24 10/21/24 History Ergocalciferol [Vitamin D2 (1250 1,250 mcg PO STEWART 08/29/24 10/21/24 History Mcg = 45928 Iu)] Famotidine [Pepcid] 20 mg PO DAILY 08/29/24 10/21/24 History Furosemide [Lasix] 20 mg PO DAILY PRN 08/29/24 10/21/24 History Ipratropium-Albuterol Nebulize 3 ml INHALATION RT-QID 08/29/24 10/21/24 History [Duoneb 0.5 mg-3 mg/3 ml Soln] Montelukast [Singulair] 10 mg PO HS 08/29/24 10/21/24 History Promethazine HCl [Phenergan Syrup] 25 mg PO DAILY PRN 08/29/24 10/21/24 History Risedronate Sodium [Actonel] 35 mg PO DIRECTED 08/29/24 10/21/24 History predniSONE 10 mg PO DAILY 08/29/24 10/21/24 History Ofatumumab [Kesimpta Pen] 20 mg SQ Q30D #1 each 09/17/24 10/21/24 Rx Ondansetron [Zofran] 4 mg PO Q8HR PRN #15 tab 10/16/24 10/21/24 Rx Nystatin 100,000 Unit/ml Susp 2 ml PO DIRECTED 10/21/24 10/21/24 History [Mycostatin Oral Susp] SUMAtriptan succinate 100 mg PO BID PRN MDD 200 mg 10/21/24 10/21/24 History Allergies Allergy/AdvReac Type Severity Reaction Status Date / Time bee venom protein (honey bee) Allergy SWELLING , Verified 10/21/24 10:10 AND ITCHING Bleach (Sodium Hypochlorite) Allergy Rash/Hives Verified 10/21/24 10:10 nitrofurantoin Allergy Rash/Hives Verified 10/21/24 10:10 [From Macrobid] nitrofurantoin Allergy Rash/Hives Verified 10/21/24 10:10 macrocrystalline [From Macrobid] moxifloxacin [From Avelox] AdvReac Nausea & Verified 10/21/24 10:10 Vomiting NSAIDS (Non-Steroidal AdvReac Had Verified 10/21/24 10:10 Anti-Inflamma gastric sleeve surgery, causes bleeds. seasonal allergies Allergy congestion Uncoded 10/20/24 19:55 and sneezing Physical Exam Vitals: Vital Signs Temp Pulse Pulse Resp BP BP Pulse Ox 10/21/24 12:37 92 10/21/24 09:37 92 10/21/24 09:24 88 10/21/24 07:50 105 H 16 10/21/24 07:07 98.2 F 105 H 16 165/86 95 10/21/24 00:34 98.4 F 108 H 19 149/92 100 10/20/24 22:19 98.4 F 115 H 20 128/77 94 L 10/20/24 22:03 100 10/20/24 21:44 112 H 10/20/24 21:36 113 H 18 154/110 97 10/20/24 20:27 100 10/20/24 20:07 24 10/20/24 20:06 109 H 10/20/24 19:48 98.5 F 106 H 22 150/108 93 L Intake and Output 10/20/24 10/21/24 10/21/24 22:59 06:59 14:59 Other: Weight 54.431 kg GENERAL EXAM: Alert, active, comfortable in no apparent distress. HEAD: Normocephalic. EYES: Normal reaction of pupils, equal size. NOSE: Clear with pink turbinates. THROAT: No erythema or exudates. NECK: No masses, no JVD. CHEST: No chest wall deformity. LUNGS: Equal air entry with bilateral end expiratory wheeze, diminished. CVS: S1 and S2 normal with no audible murmur, regular rhythm. ABDOMEN: No hepatosplenomegaly, normal bowel sounds, no guarding or rigidity. SPINE: No scoliosis or deformity SKIN: No rashes CENTRAL NERVOUS SYSTEM: No focal deficits, tone is normal in all 4 extremities. EXTREMITIES: There is no peripheral edema. No clubbing, no cyanosis. Peripheral pulses are intact. Results - Laboratory Findings CBC and BMP: 10/21/24 01:00 10/21/24 01:00 PT/INR, D-dimer PT 10.2 sec (10.0-12.5) 10/20/24 20:19 INR 0.9 (<1.2) 10/20/24 20:19 Abnormal lab findings: Abnormal Labs 10/20/24 10/20/24 10/21/24 20:19 20:19 01:00 WBC 37.07 H 35.48 H MCV 99.3 H MCH 32.7 H MCHC 31.8 L RDW 14.7 H Plt Count 482 H 499 H MPV 8.9 L Immature Gran # 0.63 H 0.79 H Neutrophils # 33.12 H 33.05 H Lymphocytes # 0.72 L 0.41 L Monocytes # 2.46 H 1.06 H Eosinophils # 0.00 L 0 L Basophils # 0.14 H 0.17 H NRBC/100 WBC Diff 0.06 H Macrocytosis (manual) 2+ A Sodium 133 L Chloride 94 L Anion Gap Glucose 132 H Plasma Lactic Acid Miguel Angel AST 48 H ALT 62 H Alkaline Phosphatase 170 H Total Protein Albumin Albumin/Globulin Ratio 10/21/24 10/21/24 10/21/24 01:00 01:08 05:12 WBC MCV MCH MCHC RDW Plt Count MPV Immature Gran # Neutrophils # Lymphocytes # Monocytes # Eosinophils # Basophils # NRBC/100 WBC Diff Macrocytosis (manual) Sodium Chloride Anion Gap 14.90 H Glucose 164 H Plasma Lactic Acid Miguel Angel 4.8 H* 2.7 H* AST 38 H ALT 57 H Alkaline Phosphatase 147 H Total Protein 5.9 L Albumin 3.5 L Albumin/Globulin Ratio 1.46 L - Diagnostic Findings Chest x-ray: image reviewed Assessment and Plan Assessment: Acute COPD exacerbation, failed outpatient treatment Acute hypoxemic respiratory failure, on 2 L/min nasal cannula, secondary to above Acute leukocytosis, possibly reactive to steroid Chronic ongoing nicotine dependence, started back smoking 2 to 3 months ago, currently 1/2 pack/day History of ILD Recent hospitalization for influenza/COPD exacerbation May, History of squamous cell carcinoma of the right upper lobe, status post robot- assisted right upper lobectomy January, History of persistent postoperative right-sided pneumothorax, with previous talc pleurodesis on January, History of hypertension History of hyperlipidemia History of multiple sclerosis History of SABRA, without CPAP at home History of gastric sleeve History of splenectomy Anxiety Plan: The patient was seen and evaluated Chest x-ray, labs and medications reviewed Initiated on DuoNeb inhalations Initiated on Symbicort Initiated on Solu-Medrol Currently on Levaquin Check a procalcitonin Lovenox for DVT prophylaxis Resume home medications Educated again regarding smoking cessation NicoDerm patch will be offered Titrate down the FiO2 as tolerated Increase activity as tolerated We will continue to follow and make further recommendations based on her clinical status I have personally seen and examined the patient, performed the documentation and the assessment and plan as written. Number of minutes spent on the visit: 20 Dictation was produced using [employer] dictation software. Please excuse any grammatical, word or spelling errors.
[2024-10-21] MEDS: PANTOPRAZOLE 40 MG TABLET PO SCH (14:39)
[2024-10-21] MEDS: methylPREDNISolone SOD SUCCI 40 MG/ML 1 ML VIAL IV SCH (17:08)
[2024-10-21] MEDS: SYMBICORT 160-4.5 MCG INHALER INHALATION SCH (20:28)
[2024-10-21] MEDS: LEVOFLOXACIN 750MG-D5W PMX 750 MG in DEXTROSE/WATER 1 150ML.BAG IVPB SCH (22:05)
[2024-10-21] MEDS: oxyCODONE-APAP 10-325MG 1 EACH TAB PO PRN (22:34)
[2024-10-21] MEDS: GABAPENTIN 300 MG CAP PO SCH (22:35)
[2024-10-22] MEDS: NICOTINE 14MG/24HR PATCH TRANSDERM SCH (07:56)
[2024-10-22] MEDS: ENOXAPARIN 40 MG/0.4 ML SYRINGE SQ SCH (07:57)
[2024-10-22] MEDS ORDERED: PROMETHAZINE HCL 6.25 MG/5 ML SYRUP PO PRN (12:19)
[2024-10-22] MEDS ORDERED: NICOTINE 21MG/24HR PATCH TRANSDERM PRN (12:19)
[2024-10-22] MEDS: NYSTATIN 100,000 UNIT/ML SUSP 500,000 UNIT/5 ML CUP PO SCH (13:58)
--- NOTE | 2024-10-22 14:02 | P.PN ---
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 Additional biopsy findings revealed advanced interstitial pneumonitis consistent with usual interstitial pneumonia (UIP) interstitial lung disease. She also has a history of hypertension, hypothyroidism, hyperlipidemia, MS, anxiety. She does have significant COPD. Her FEV1 value 61% of predicted. She is maintained on Trelegy, prednisone and oxygen. She has chronic and ongoing tobacco dependence. She has quit occasionally but is currently smoking again. She has had multiple admissions to the hospital for COPD exacerbations. She presented here again yesterday with complaints of increasing shortness of breath, cough or congestion. Most recent discharge was August 2024. Chest x-ray reveals hazy airspace disease in the bilateral lungs superimposed on emphysematous changes. White count 35.4. Hemoglobin 13.7. Margie telets 499. Sodium 137. Potassium 4.6. Bicarb 26. BUN 11. Creatinine 0.5. Glucose 165. AST 38. ALT 57. Alk phos 147. She is seen today in consultation on the regular medical floor. Currently sitting up in bed. Awake and alert in no acute distress. Maintaining good O2 saturations in the 90s on 3 L/min per nasal cannula. She has been afebrile. Hemodynamically stable. The patient is seen today October 22, 2024 in follow-up on the regular medical floor. She is currently sitting up in bed. Awake and alert in no acute distress. Maintaining good O2 saturations in the 90s on 3 L/min per nasal cannula. She is afebrile. Hemodynamically stable. Blood culture reveals no growth to date. Sputum culture reveals no growth to date. Lactic acid 1.4. She is continued on DuoNeb inhalations, Symbicort, Solu-Medrol. NicoDerm patch in place. Remains on oral diuretics. Lovenox for DVT prophylaxis. Objective - Vital Signs Vital signs: Vital Signs Temp 98.4 F 10/22/24 13:47 Pulse 104 H 10/22/24 13:47 Resp 20 10/22/24 13:47 BP 172/101 10/22/24 13:47 Pulse Ox 90 L 10/22/24 13:47 FiO2 Intake & Output 10/21/24 10/22/24 10/22/24 18:59 06:59 18:59 Other: # Voids 2 2 - Exam GENERAL EXAM: Alert, 49-year-old female, on 3 L nasal cannula, comfortable in no apparent distress. HEAD: Normocephalic. EYES: Normal reaction of pupils, equal size. NOSE: Clear with pink turbinates. THROAT: No erythema or exudates. NECK: No masses, no JVD. CHEST: No chest wall deformity. LUNGS: Equal air entry with few scattered rhonchi, end expiratory wheeze, dim inished. CVS: S1 and S2 normal with no audible murmur, regular rhythm. ABDOMEN: No hepatosplenomegaly, normal bowel sounds, no guarding or rigidity. SPINE: No scoliosis or deformity SKIN: No rashes CENTRAL NERVOUS SYSTEM: No focal deficits, tone is normal in all 4 extremities. EXTREMITIES: There is no peripheral edema. No clubbing, no cyanosis. Peripheral pulses are intact. - Labs CBC & Chem 7: 10/21/24 01:00 10/21/24 01:00 Labs: Microbiology - Last 24 Hours (Table) 10/21/24 01:08 Blood Culture - Preliminary Blood 10/21/24 07:00 Gram Stain - Preliminary Sputum Sputum Culture - Preliminary Assessment and Plan Assessment: Acute COPD exacerbation, failed outpatient treatment Acute hypoxemic respiratory failure, on 3 L/min nasal cannula, secondary to above Acute leukocytosis, possibly reactive to steroid Chronic ongoing nicotine dependence, started back smoking 2 to 3 months ago, currently 1/2 pack/day History of ILD Recent hospitalization for influenza/COPD exacerbation May, History of squamous cell carcinoma of the right upper lobe, status post robot- assisted right upper lobectomy January, History of persistent postoperative right-sided pneumothorax, with previous talc pleurodesis on January, History of hypertension History of hyperlipidemia History of multiple sclerosis History of SABRA, without CPAP at home History of gastric sleeve History of splenectomy Anxiety Plan: The patient was seen and evaluated Labs and medications reviewed Continue DuoNeb inhalations Continue Symbicort Continue Solu-Medrol Discontinue Levaquin Procalcitonin negative Lovenox for DVT prophylaxis Educated again regarding smoking cessation NicoDerm patch in place Titrate down the FiO2 as tolerated Increase activity as tolerated We will continue to follow I have personally seen and examined the patient, performed the documentation and the assessment and plan as written. Number of minutes spent on the visit: 10 Dictation was produced using [employer] dictation software. Please excuse any grammatical, word or spelling errors.
[2024-10-22] MEDS: IPRATROPIUM-ALBUTEROL 3 ML NEB INHALATION SCH (16:17)
[2024-10-22] MEDS: METOPROLOL SUCCINATE (ER) 100 MG TAB.ER.24H PO SCH (20:34)
[2024-10-22] MEDS: MONTELUKAST 10 MG TAB PO SCH (20:34)
[2024-10-22] MEDS: PRAVASTATIN SODIUM 40 MG TAB PO SCH (20:34)
[2024-10-22] MEDS: LOSARTAN 25 MG TAB PO SCH (20:34)
[2024-10-22] MEDS: CALCIUM CARBONATE 500 MG CHEWABLE PO PRN (21:08)
[2024-10-23] MEDS: LORazepam 0.5 MG TAB PO PRN (01:23)
[2024-10-23] MEDS: ONDANSETRON 4 MG/2 ML VIAL IVP PRN (04:04)
[2024-10-23] MEDS: LEVOTHYROXINE 50 MCG TAB PO SCH (06:13)
[2024-10-23] MEDS ORDERED: TIOTROPIUM 2.5 MCG INHALER INHALATION SCH (08:00)
[2024-10-23] MEDS: FAMOTIDINE 20 MG TAB PO SCH (09:30)
[2024-10-23] MEDS: predniSONE 10 MG TAB PO SCH (09:30)
[2024-10-23] MEDS: FUROSEMIDE 20 MG TAB PO PRN (09:31)
[2024-10-23 11:46] LABS: Glucose,Whole Blood 87 mg/dL (70-110)
--- NOTE | 2024-10-23 14:19 | P.PN ---
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 Additional biopsy findings revealed advanced interstitial pneumonitis consistent with usual interstitial pneumonia (UIP) interstitial lung disease. She also has a history of hypertension, hypothyroidism, hyperlipidemia, MS, anxiety. She does have significant COPD. Her FEV1 value 61% of predicted. She is maintained on Trelegy, prednisone and oxygen. She has chronic and ongoing tobacco dependence. She has quit occasionally but is currently smoking again. She has had multiple admissions to the hospital for COPD exacerbations. She presented here again yesterday with complaints of increasing shortness of breath, cough or congestion. Most recent discharge was August 2024. Chest x-ray reveals hazy airspace disease in the bilateral lungs superimposed on emphysematous changes. White count 35.4. Hemoglobin 13.7. Margie telets 499. Sodium 137. Potassium 4.6. Bicarb 26. BUN 11. Creatinine 0.5. Glucose 165. AST 38. ALT 57. Alk phos 147. She is seen today in consultation on the regular medical floor. Currently sitting up in bed. Awake and alert in no acute distress. Maintaining good O2 saturations in the 90s on 3 L/min per nasal cannula. She has been afebrile. Hemodynamically stable. The patient is seen today October 22, 2024 in follow-up on the regular medical floor. She is currently sitting up in bed. Awake and alert in no acute distress. Maintaining good O2 saturations in the 90s on 3 L/min per nasal cannula. She is afebrile. Hemodynamically stable. Blood culture reveals no growth to date. Sputum culture reveals no growth to date. Lactic acid 1.4. She is continued on DuoNeb inhalations, Symbicort, Solu-Medrol. NicoDerm patch in place. Remains on oral diuretics. Lovenox for DVT prophylaxis. The patient is seen today October 23, 2024 in follow-up on the regular medical floor. She is currently sitting up in a chair at the bedside. Awake and alert in no acute distress. Maintaining O2 saturations in the 90s on 3 L/min per nasal cannula. She denies any worsening shortness of breath, cough or congestion. She is having some issues with nausea and vomiting today. Blood culture revealed no growth. Sputum culture revealed no growth. Glucose 87. She remains on DuoNeb inhalations, Symbicort, prednisone. NicoDerm patch in place. Lovenox for DVT prophylaxis. Remains on oral diuretics. Objective - Vital Signs Vital signs: Vital Signs Temp 98.0 F 10/23/24 13:25 Pulse 77 10/23/24 13:25 Resp 18 10/23/24 13:25 BP 145/88 10/23/24 13:25 Pulse Ox 95 10/23/24 13:25 FiO2 Intake & Output 10/22/24 10/23/24 10/23/24 18:59 06:59 18:59 Other: Voiding Method Toilet # Voids 3 3 # Bowel Movements 0 - Exam GENERAL EXAM: Alert, very pleasant 49-year-old female, sitting up in a chair, on 3 L nasal cannula, comfortable in no apparent distress. HEAD: Normocephalic. EYES: Normal reaction of pupils, equal size. NOSE: Clear with pink turbinates. THROAT: No erythema or exudates. NECK: No masses, no JVD. CHEST: No chest wall deformity. LUNGS: Equal air entry with few scattered rhonchi, end expiratory wheeze, diminished. CVS: S1 and S2 normal with no audible murmur, regular rhythm. ABDOMEN: No hepatosplenomegaly, normal bowel sounds, no guarding or rigidity. SPINE: No scoliosis or deformity SKIN: No rashes CENTRAL NERVOUS SYSTEM: No focal deficits, tone is normal in all 4 extremities. EXTREMITIES: There is no peripheral edema. No clubbing, no cyanosis. Peripheral pulses are intact. - Labs CBC & Chem 7: 10/21/24 01:00 10/21/24 01:00 Labs: Microbiology - Last 24 Hours (Table) 10/21/24 01:08 Blood Culture - Preliminary Blood 10/21/24 07:00 Gram Stain - Preliminary Sputum Sputum Culture - Preliminary Assessment and Plan Assessment: Acute COPD exacerbation, failed outpatient treatment Acute hypoxemic respiratory failure, on 3 L/min nasal cannula, secondary to above Acute leukocytosis, possibly reactive to steroid Chronic ongoing nicotine dependence, currently 1/2 pack/day History of ILD Recent hospitalization for influenza/COPD exacerbation May, History of squamous cell carcinoma of the right upper lobe, status post robot- assisted right upper lobectomy January, History of persistent postoperative right-sided pneumothorax, with previous talc pleurodesis on January, History of hypertension History of hyperlipidemia History of multiple sclerosis History of SABRA, without CPAP at home History of gastric sleeve History of splenectomy Anxiety Plan: The patient was seen and evaluated Labs and medications reviewed Zofran as needed for nausea Continue DuoNeb inhalations Continue Symbicort Continue Solu-Medrol Lovenox for DVT prophylaxis Educated again regarding smoking cessation NicoDerm patch in place Titrate down the FiO2 as tolerated Increase activity as tolerated We will continue to follow I have personally seen and examined the patient, performed the documentation and the assessment and plan as written. Number of minutes spent on the visit: 10 Dictation was produced using [employer] dictation software. Please excuse any grammatical, word or spelling errors.
[2024-10-23 16:08] LABS: Glucose,Whole Blood 102 mg/dL (70-110)
[2024-10-23 20:30] LABS: Glucose,Whole Blood 96 mg/dL (70-110)
--- NOTE | 2024-10-23 22:47 | PN ---
PROGRESS NOTE CHIEF COMPLAINT: Difficulty breathing. HISTORY OF PRESENT ILLNESS: The patient is doing a little bit better. She does have thrush. She denies any fever and chills, chest pain, etc. PHYSICAL EXAMINATION: CHEST: Demonstrates poor breath sounds with scattered rales, rhonchi, and generally decreased breath sounds. CARDIAC: Normal. HEENT: She does have thrush. IMPRESSION: 1. Exacerbation of chronic obstructive pulmonary disease. 2. Thrush. PLAN: 1. Mycostatin oral suspension. 2. Continue with pulmonary program. MMODL / IJN: [id number] /
--- NOTE | 2024-10-23 23:27 | PN ---
PROGRESS NOTE CHIEF COMPLAINT: Exacerbation of COPD. HISTORY OF PRESENT ILLNESS: This lady is doing slightly better. Breathing is improving. PHYSICAL EXAMINATION: CHEST: Breath sounds are slightly more clear. She still has scattered rales, rhonchi, and wheezing on expiration. CARDIAC: Normal. IMPRESSION: 1. Exacerbation of chronic obstructive pulmonary disease. 2. Status post right-sided lobectomy for carcinoma of the lung. 3. Multiple sclerosis. 4. Leukemia. PLAN: Continue with pulmonary program and she probably will be able to be discharged in a day or 2. MMODL / IJN: [id number] /
[2024-10-24] MEDS: CYCLOBENZAPRINE 5 MG TAB PO PRN (05:55)
[2024-10-24 06:24] LABS: Glucose,Whole Blood 89 mg/dL (70-110)
[2024-10-24] MEDS: ONDANSETRON ODT 4 MG TAB PO PRN (09:27)
[2024-10-24 12:14] LABS: Glucose,Whole Blood 94 mg/dL (70-110)
--- NOTE | 2024-10-24 14:27 | P.PN ---
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 Additional biopsy findings revealed advanced interstitial pneumonitis consistent with usual interstitial pneumonia (UIP) interstitial lung disease. She also has a history of hypertension, hypothyroidism, hyperlipidemia, MS, anxiety. She does have significant COPD. Her FEV1 value 61% of predicted. She is maintained on Trelegy, prednisone and oxygen. She has chronic and ongoing tobacco dependence. She has quit occasionally but is currently smoking again. She has had multiple admissions to the hospital for COPD exacerbations. She presented here again yesterday with complaints of increasing shortness of breath, cough or congestion. Most recent discharge was August 2024. Chest x-ray reveals hazy airspace disease in the bilateral lungs superimposed on emphysematous changes. White count 35.4. Hemoglobin 13.7. Margie telets 499. Sodium 137. Potassium 4.6. Bicarb 26. BUN 11. Creatinine 0.5. Glucose 165. AST 38. ALT 57. Alk phos 147. She is seen today in consultation on the regular medical floor. Currently sitting up in bed. Awake and alert in no acute distress. Maintaining good O2 saturations in the 90s on 3 L/min per nasal cannula. She has been afebrile. Hemodynamically stable. The patient is seen today October 22, 2024 in follow-up on the regular medical floor. She is currently sitting up in bed. Awake and alert in no acute distress. Maintaining good O2 saturations in the 90s on 3 L/min per nasal cannula. She is afebrile. Hemodynamically stable. Blood culture reveals no growth to date. Sputum culture reveals no growth to date. Lactic acid 1.4. She is continued on DuoNeb inhalations, Symbicort, Solu-Medrol. NicoDerm patch in place. Remains on oral diuretics. Lovenox for DVT prophylaxis. The patient is seen today October 23, 2024 in follow-up on the regular medical floor. She is currently sitting up in a chair at the bedside. Awake and alert in no acute distress. Maintaining O2 saturations in the 90s on 3 L/min per nasal cannula. She denies any worsening shortness of breath, cough or congestion. She is having some issues with nausea and vomiting today. Blood culture revealed no growth. Sputum culture revealed no growth. Glucose 87. She remains on DuoNeb inhalations, Symbicort, prednisone. NicoDerm patch in place. Lovenox for DVT prophylaxis. Remains on oral diuretics. The patient is seen today October 24, 2024 in follow-up on the regular medical floor. She is currently resting in bed. Awake and alert in no acute distress. She denies any worsening shortness of breath, cough or congestion. She is feeling back to her baseline. She is maintaining good O2 saturation in the 90s on 3 L/min per nasal cannula. No worsening shortness of breath, cough or co ngestion. Sputum culture revealed Mckenna only. Blood culture revealed no growth. Glucose 94. She is continued on DuoNeb inhalations, Symbicort, prednisone. Lovenox for DVT prophylaxis. Remains on IV diuretics. Remains on Singulair. NicoDerm patch in place. Objective - Vital Signs Vital signs: Vital Signs Temp 98.8 F 10/24/24 08:00 Pulse 78 10/24/24 12:13 Resp 18 10/24/24 08:00 BP 159/98 10/24/24 08:00 Pulse Ox 96 10/24/24 08:55 FiO2 Intake & Output 10/23/24 10/24/24 10/24/24 18:59 06:59 18:59 Other: Voiding Method Toilet # Voids 3 2 # Bowel Movements 0 - Exam GENERAL EXAM: Alert, pleasant 49-year-old female, resting in bed, on 3 L nasal cannula, in no apparent distress. HEAD: Normocephalic. EYES: Normal reaction of pupils, equal size. NOSE: Clear with pink turbinates. THROAT: No erythema or exudates. NECK: No masses, no JVD. CHEST: No chest wall deformity. LUNGS: Equal air entry with few scattered rhonchi, end expiratory wheeze, diminished. CVS: S1 and S2 normal with no audible murmur, regular rhythm. ABDOMEN: No hepatosplenomegaly, normal bowel sounds, no guarding or rigidity. SPINE: No scoliosis or deformity SKIN: No rashes CENTRAL NERVOUS SYSTEM: No focal deficits, tone is normal in all 4 extremities. EXTREMITIES: There is no peripheral edema. No clubbing, no cyanosis. Peripheral pulses are intact. - Labs CBC & Chem 7: 10/21/24 01:00 10/21/24 01:00 Labs: Microbiology - Last 24 Hours (Table) 10/21/24 01:08 Blood Culture - Preliminary Blood 10/21/24 07:00 Gram Stain - Final Sputum Sputum Culture - Final Mckenna albicans Assessment and Plan Assessment: Acute COPD exacerbation, failed outpatient treatment Acute on chronic hypoxemic respiratory failure, on 3 L/min nasal cannula, secondary to above Acute leukocytosis, possibly reactive to steroid Chronic ongoing nicotine dependence, currently 1/2 pack/day History of ILD Recent hospitalization for influenza/COPD exacerbation May, History of squamous cell carcinoma of the right upper lobe, status post robot- assisted right upper lobectomy January, History of persistent postoperative right-sided pneumothorax, with previous talc pleurodesis on January, History of hypertension History of hyperlipidemia History of multiple sclerosis History of SABRA, without CPAP at home History of gastric sleeve History of splenectomy Anxiety Plan: The patient was seen and evaluated Labs and medications reviewed Cleared for discharge Continue her home pulmonary medications Continue her home oxygen Completed prednisone taper Educated again regarding smoking cessation NicoDerm patch in place Follow-up in our office in 1 week I have personally seen and examined the patient, performed the documentation and the assessment and plan as written. Number of minutes spent on the visit: 10 Dictation was produced using [employer] dictation software. Please excuse any grammatical, word or spelling errors.
[2024-10-24] MEDS: ONDANSETRON 4 MG/2 ML VIAL IVP PRN (15:46)
[2024-10-24 16:53] LABS: Glucose,Whole Blood 90 mg/dL (70-110)
--- NOTE | 2024-10-25 01:08 | PN ---
PROGRESS NOTE CHIEF COMPLAINT: Exacerbation of chronic obstructive pulmonary disease. HISTORY OF PRESENT ILLNESS: This lady was doing well and was to be discharged and then she started to vomit. She has had no abdominal pain. She has had no fever or chills. PHYSICAL EXAMINATION: CHEST: Demonstrates poor breath sounds with scattered rales and occasional rhonchi. CARDIAC: Unremarkable. ABDOMEN: Soft, nontender. IMPRESSION: 1. Exacerbation of chronic obstructive pulmonary disease. 2. History of carcinoma of the right lung. 3. Multiple sclerosis. 4. History of leukemia. 5. Nausea and vomiting, etiology unknown. PLAN: 1. Zofran for nausea. 2. Cancel discharge. MMODL / IJN: [id number] /
[2024-10-25 06:12] LABS: Glucose,Whole Blood 80 mg/dL (70-110)
[2024-10-25] MEDS: methylPREDNISolone 4 MG TAB TAPER PO SCH (10:01)
[2024-10-25] MEDS ORDERED: MAGNESIUM HYDROXIDE 2,400 MG/30 ML CUP PO PRN (11:01)
[2024-10-25] MEDS: FUROSEMIDE 40 MG TAB PO SCH (11:26)
[2024-10-25 11:46] VITALS: BMI 22.6
--- NOTE | 2024-10-25 11:57 | P.PN ---
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 Additional biopsy findings revealed advanced interstitial pneumonitis consistent with usual interstitial pneumonia (UIP) interstitial lung disease. She also has a history of hypertension, hypothyroidism, hyperlipidemia, MS, anxiety. She does have significant COPD. Her FEV1 value 61% of predicted. She is maintained on Trelegy, prednisone and oxygen. She has chronic and ongoing tobacco dependence. She has quit occasionally but is currently smoking again. She has had multiple admissions to the hospital for COPD exacerbations. She presented here again yesterday with complaints of increasing shortness of breath, cough or congestion. Most recent discharge was August 2024. Chest x-ray reveals hazy airspace disease in the bilateral lungs superimposed on emphysematous changes. White count 35.4. Hemoglobin 13.7. Margie telets 499. Sodium 137. Potassium 4.6. Bicarb 26. BUN 11. Creatinine 0.5. Glucose 165. AST 38. ALT 57. Alk phos 147. She is seen today in consultation on the regular medical floor. Currently sitting up in bed. Awake and alert in no acute distress. Maintaining good O2 saturations in the 90s on 3 L/min per nasal cannula. She has been afebrile. Hemodynamically stable. The patient is seen today October 22, 2024 in follow-up on the regular medical floor. She is currently sitting up in bed. Awake and alert in no acute distress. Maintaining good O2 saturations in the 90s on 3 L/min per nasal cannula. She is afebrile. Hemodynamically stable. Blood culture reveals no growth to date. Sputum culture reveals no growth to date. Lactic acid 1.4. She is continued on DuoNeb inhalations, Symbicort, Solu-Medrol. NicoDerm patch in place. Remains on oral diuretics. Lovenox for DVT prophylaxis. The patient is seen today October 23, 2024 in follow-up on the regular medical floor. She is currently sitting up in a chair at the bedside. Awake and alert in no acute distress. Maintaining O2 saturations in the 90s on 3 L/min per nasal cannula. She denies any worsening shortness of breath, cough or congestion. She is having some issues with nausea and vomiting today. Blood culture revealed no growth. Sputum culture revealed no growth. Glucose 87. She remains on DuoNeb inhalations, Symbicort, prednisone. NicoDerm patch in place. Lovenox for DVT prophylaxis. Remains on oral diuretics. The patient is seen today October 24, 2024 in follow-up on the regular medical floor. She is currently resting in bed. Awake and alert in no acute distress. She denies any worsening shortness of breath, cough or congestion. She is feeling back to her baseline. She is maintaining good O2 saturation in the 90s on 3 L/min per nasal cannula. No worsening shortness of breath, cough or co ngestion. Sputum culture revealed Mckenna only. Blood culture revealed no growth. Glucose 94. She is continued on DuoNeb inhalations, Symbicort, prednisone. Lovenox for DVT prophylaxis. Remains on IV diuretics. Remains on Singulair. NicoDerm patch in place. The patient is seen today October 25, 2024 in follow-up on the regular medical floor. She is awake and alert in no acute distress. She is maintaining good O2 saturations in the 90s on 3 L/min per nasal cannula. She has been afebrile. She had issues with nausea and vomiting and hypertension yesterday. She continues to deny any worsening shortness of breath, cough or congestion. She is continued on DuoNeb inhalations, Symbicort and prednisone. Lovenox for DVT prophylaxis. NicoDerm patch in place. She remains hypertensive today. Medications being adjusted per primary service. Glucose 80. Objective - Vital Signs Vital signs: Vital Signs Temp 98.3 F 10/25/24 07:35 Pulse 88 10/25/24 09:53 Resp 16 10/25/24 07:35 BP 168/96 10/25/24 07:35 Pulse Ox 94 L 10/25/24 09:41 FiO2 Intake & Output 10/24/24 10/25/24 10/25/24 18:59 06:59 18:59 Intake Total 250 Balance 250 Intake: Oral 250 Other: # Voids 9 3 - Exam GENERAL EXAM: Alert, oriented 49-year-old female, sitting up in bed, on 3 L nasal cannula, in no apparent distress. HEAD: Normocephalic. EYES: Normal reaction of pupils, equal size. NOSE: Clear with pink turbinates. THROAT: No erythema or exudates. NECK: No masses, no JVD. CHEST: No chest wall deformity. LUNGS: Equal air entry with few scattered rhonchi, end expiratory wheeze, diminished. CVS: S1 and S2 normal with no audible murmur, regular rhythm. ABDOMEN: No hepatosplenomegaly, normal bowel sounds, no guarding or rigidity. SPINE: No scoliosis or deformity SKIN: No rashes CENTRAL NERVOUS SYSTEM: No focal deficits, tone is normal in all 4 extremities. EXTREMITIES: There is no peripheral edema. No clubbing, no cyanosis. Peripheral pulses are intact. - Labs CBC & Chem 7: 10/21/24 01:00 10/21/24 01:00 Labs: Microbiology - Last 24 Hours (Table) 10/21/24 01:08 Blood Culture - Preliminary Blood Assessment and Plan Assessment: Acute COPD exacerbation, failed outpatient treatment Acute on chronic hypoxemic respiratory failure, on 3 L/min nasal cannula, secondary to above Acute leukocytosis, possibly reactive to steroid Abdominal pain, nausea and constipation Hypertension Chronic ongoing nicotine dependence, currently 1/2 pack/day History of ILD Recent hospitalization for influenza/COPD exacerbation May, History of squamous cell carcinoma of the right upper lobe, status post robot- assisted right upper lobectomy January, History of persistent postoperative right-sided pneumothorax, with previous talc pleurodesis on January, History of hyperlipidemia History of multiple sclerosis History of SABRA, without CPAP at home History of gastric sleeve History of splenectomy Anxiety Plan: The patient was seen and evaluated Labs and medications reviewed Remains with abdominal pain and constipation Remains hypertensive Medications being adjusted Continue the current pulmonary medications Educated again regarding smoking cessation NicoDerm patch in place Follow-up in our office in 1 week I have personally seen and examined the patient, performed the documentation and the assessment and plan as written. Number of minutes spent on the visit: 10 Dictation was produced using [employer] dictation software. Please excuse any grammatical, word or spelling errors.
[2024-10-25 12:14] LABS: Glucose,Whole Blood 93 mg/dL (70-110)
--- NOTE | 2024-10-25 13:31 | XR ---
EXAMINATION TYPE: XR abdomen 2V DATE OF EXAM: 10/25/2024 1:19 PM COMPARISON: 01/10/2022. CLINICAL INDICATION: Female, 49 years old with history of SBO?; TECHNIQUE: Two views of the abdomen were obtained. FINDINGS: Large amount stool throughout the colon. The bowel gas pattern is nonspecific without dila isadora loops of small or large bowel. . Fecal material and gas are demonstrated throughout the colon and rectum. There is no evidence for organomegaly or pneumoperitoneum. No acute osseous process. No abnormal calcifications are present. IMPRESSION: There is a large stool burden throughout the colon. No evidence for small bowel obstruction on this p maico film. [facility], , 10/25/2024 1:28 PM
[2024-10-25 16:57] LABS: Glucose,Whole Blood 133 mg/dL (70-110)
--- NOTE | 2024-10-25 20:54 | PN ---
PROGRESS NOTE DATE OF SERVICE: 10/25/2024 CHIEF COMPLAINT: Nausea and vomiting. HISTORY OF PRESENT ILLNESS: This lady is still having some nausea, and has vomited. She feels this is due to constipation. She does feel bloated. She has also developed some lower extremity edema. PHYSICAL EXAMINATION: CHEST: Clear. CARDIAC: Unremarkable. ABDOMEN: Slightly bloated. There is no visceromegaly. There is no tenderness. Bowel sounds are present. EXTREMITIES: Legs reveal 2+ edema. Her blood pressure is also slightly elevated. IMPRESSION: 1. Exacerbation of chronic obstructive pulmonary disease. 2. History of carcinoma of the lung. 3. Multiple sclerosis. 4. Leukemia. 5. Constipation. 6. Nausea and vomiting, etiology unknown. 7. Peripheral edema. PLAN: 1. Rule out ileus or small-bowel obstruction. 2. MiraLax. ADDENDUM: Nurses discovered that she has opioids in her purse that she has been taking in the hospital and these were confiscated. MMODL / IJN: [id number] /
[2024-10-25 20:56] LABS: Glucose,Whole Blood 120 mg/dL (70-110)
[2024-10-26 06:13] LABS: Glucose,Whole Blood 104 mg/dL (70-110)
[2024-10-26 11:49] LABS: Glucose,Whole Blood 96 mg/dL (70-110)
[2024-10-26] MEDS: NA PHOS,M-B/NA PHOS,DI-BA 133 ML ENEMA RECTAL ONE (13:21)
[2024-10-26 16:35] LABS: Glucose,Whole Blood 170 mg/dL (70-110)
[2024-10-26 21:16] LABS: Glucose,Whole Blood 130 mg/dL (70-110)
--- NOTE | 2024-10-27 01:32 | PN ---
PROGRESS NOTE DATE OF SERVICE: 10/26/2024 CHIEF COMPLAINT: Exacerbation of COPD, multiple sclerosis, leukemia and history of carcinoma of the right lung. HISTORY OF PRESENT ILLNESS: This lady is still complaining of abdominal pain with nausea. Flat and upright suggest that she is constipated and probably impacted. PHYSICAL EXAMINATION: CHEST: Quite clear now. CARDIAC: Normal. ABDOMEN: Soft and nontender. IMPRESSION: 1. Chronic obstructive pulmonary disease. 2. Multiple sclerosis. 3. Leukemia. 4. History of carcinoma of the right lung. 5. Constipation. 6. Elevated blood pressure. PLAN: 1. Fleets Enema. 2. Once her own bowel activity and constipation are alleviated, she can be discharged. MMODL / IJN: [id number] /
[2024-10-27] MEDS: LOSARTAN 50 MG TAB PO STA (01:53)
[2024-10-27 06:01] LABS: Glucose,Whole Blood 91 mg/dL (70-110)
[2024-10-27] MEDS: MINERAL OIL 133 ML ENEMA RECTAL SCH (06:51)
[2024-10-27 11:10] LABS: Glucose,Whole Blood 94 mg/dL (70-110)
[2024-10-27 16:10] LABS: Glucose,Whole Blood 128 mg/dL (70-110)
[2024-10-27 19:05] LABS: Glucose,Whole Blood 131 mg/dL (70-110)
[2024-10-27] MEDS: LOSARTAN 50 MG TAB PO SCH (21:51)
[2024-10-27] MEDS: SODIUM CHLORIDE 0.9% 1,000 ML IV SCH (22:46)
[2024-10-27] MEDS: NA PHOS,M-B/NA PHOS,DI-BA 133 ML ENEMA RECTAL ONE (22:48)
[2024-10-28 06:54] LABS: Glucose,Whole Blood 71 mg/dL (70-110)
[2024-10-28] MEDS: DEXTROSE 5%-0.9% NACL 1,000 ML IV SCH (08:15)
[2024-10-28 11:16] LABS: Glucose,Whole Blood 84 mg/dL (70-110)
[2024-10-28] MEDS ORDERED: MAGNESIUM HYDROXIDE 2,400 MG/30 ML CUP PO PRN (11:20)
[2024-10-28] MEDS: MAGNESIUM HYDROXIDE 2,400 MG/30 ML CUP PO SCH (11:33)
[2024-10-28] MEDS: LACTULOSE 20 GM/30 ML CUP PO SCH (13:35)
[2024-10-28] MEDS: ZINC OXIDE PASTE (Z-GUARD) 1 APPLIC TOPICAL PRN (13:39)
[2024-10-28 16:18] LABS: Glucose,Whole Blood 150 mg/dL (70-110)
[2024-10-28 20:16] LABS: Glucose,Whole Blood 124 mg/dL (70-110)
[2024-10-28] MEDS: oxyCODONE-APAP 5-325MG 1 EACH TAB PO PRN (23:10)
[2024-10-29 06:31] LABS: Glucose,Whole Blood 54 mg/dL (70-110)
[2024-10-29 06:46] LABS: Glucose,Whole Blood 67 mg/dL (70-110)
[2024-10-29 06:46] LABS: Glucose,Whole Blood 71 mg/dL (70-110)
[2024-10-29 11:25] LABS: Glucose,Whole Blood 86 mg/dL (70-110)
[2024-10-29 14:00] VITALS: BP 104/65; PULSE 86; RESP 16; TEMP 98.2
--- NOTE | 2024-10-29 19:34 | P.PN ---
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 Additional biopsy findings revealed advanced interstitial pneumonitis consistent with usual interstitial pneumonia (UIP) interstitial lung disease. She also has a history of hypertension, hypothyroidism, hyperlipidemia, MS, anxiety. She does have significant COPD. Her FEV1 value 61% of predicted. She is maintained on Trelegy, prednisone and oxygen. She has chronic and ongoing tobacco dependence. She has quit occasionally but is currently smoking again. She has had multiple admissions to the hospital for COPD exacerbations. She presented here again yesterday with complaints of increasing shortness of breath, cough or congestion. Most recent discharge was August 2024. Chest x-ray reveals hazy airspace disease in the bilateral lungs superimposed on emphysematous changes. White count 35.4. Hemoglobin 13.7. Pl atelets 499. Sodium 137. Potassium 4.6. Bicarb 26. BUN 11. Creatinine 0.5. Glucose 165. AST 38. ALT 57. Alk phos 147. She is seen today in consultation on the regular medical floor. Currently sitting up in bed. Awake and alert in no acute distress. Maintaining good O2 saturations in the 90s on 3 L/min per nasal cannula. She has been afebrile. Hemodynamically stable. The patient is seen today October 22, 2024 in follow-up on the regular medical floor. She is currently sitting up in bed. Awake and alert in no acute distress. Maintaining good O2 saturations in the 90s on 3 L/min per nasal cannula. She is afebrile. Hemodynamically stable. Blood culture reveals no growth to date. Sputum culture reveals no growth to date. Lactic acid 1.4. She is continued on DuoNeb inhalations, Symbicort, Solu-Medrol. NicoDerm patch in place. Remains on oral diuretics. Lovenox for DVT prophylaxis. The patient is seen today October 23, 2024 in follow-up on the regular medical floor. She is currently sitting up in a chair at the bedside. Awake and alert in no acute distress. Maintaining O2 saturations in the 90s on 3 L/min per nasal cannula. She denies any worsening shortness of breath, cough or congestion. She is having some issues with nausea and vomiting today. Blood culture revealed no growth. Sputum culture revealed no growth. Glucose 87. She remains on DuoNeb inhalations, Symbicort, prednisone. NicoDerm patch in place. Lovenox for DVT prophylaxis. Remains on oral diuretics. The patient is seen today October 24, 2024 in follow-up on the regular medical floor. She is currently resting in bed. Awake and alert in no acute distress. She denies any worsening shortness of breath, cough or congestion. She is feeling back to her baseline. She is maintaining good O2 saturation in the 90s on 3 L/min per nasal cannula. No worsening shortness of breath, cough or c ongestion. Sputum culture revealed Mckenna only. Blood culture revealed no growth. Glucose 94. She is continued on DuoNeb inhalations, Symbicort, prednisone. Lovenox for DVT prophylaxis. Remains on IV diuretics. Remains on Singulair. NicoDerm patch in place. The patient is seen today October 25, 2024 in follow-up on the regular medical floor. She is awake and alert in no acute distress. She is maintaining good O2 saturations in the 90s on 3 L/min per nasal cannula. She has been afebrile. She had issues with nausea and vomiting and hypertension yesterday. She continues to deny any worsening shortness of breath, cough or congestion. She is continued on DuoNeb inhalations, Symbicort and prednisone. Lovenox for DVT prophylaxis. NicoDerm patch in place. She remains hypertensive today. Medications being adjusted per primary service. Glucose 80. On 10/29/2024, the patient is feeling well. Denies having any specific complaints. No chest pain. She reports that her shortness of breath is already improving. No altered mentation. She is sitting up in a chair. Calm and com fortable. No nausea. No emesis. No other new complaints otherwise for now. She is currently on liters of oxygen by nasal cannula with a pulse ox of 99%. No recent blood work. She is known to me. She is known to have COPD and previous history of smoking induced RB ILD. The patient also has history of squamous cell carcinoma of the lung and the patient has undergone a previous right upper lobe resection without evidence of any recurrence. FEV1 is noted of 61% predicted. She is oxygen dependent even at home. She is a chronic smoker. Objective - Vital Signs Vital signs: Vital Signs Temp 97.3 F L 10/29/24 07:21 Pulse 79 10/29/24 12:21 Resp 17 10/29/24 08:23 BP 130/81 10/29/24 07:21 Pulse Ox 94 L 10/29/24 08:48 FiO2 Intake & Output 10/28/24 10/29/24 10/29/24 18:59 06:59 18:59 Other: Voiding Method Toilet # Voids 4 6 # Bowel Movements 4 6 - Exam GENERAL EXAM: Alert, oriented 49-year-old female, sitting up in bed, on 3 L n yvonne cannula, in no apparent distress. HEAD: Normocephalic. EYES: Normal reaction of pupils, equal size. NOSE: Clear with pink turbinates. THROAT: No erythema or exudates. NECK: No masses, no JVD. CHEST: No chest wall deformity. LUNGS: Equal air entry with few scattered rhonchi, end expiratory wheeze, diminished. CVS: S1 and S2 normal with no audible murmur, regular rhythm. ABDOMEN: No hepatosplenomegaly, normal bowel sounds, no guarding or rigidity. SPINE: No scoliosis or deformity SKIN: No rashes CENTRAL NERVOUS SYSTEM: No focal deficits, tone is normal in all 4 extremities. EXTREMITIES: There is no peripheral edema. No clubbing, no cyanosis. Peripheral pulses are intact. - Labs CBC & Chem 7: 10/21/24 01:00 10/21/24 01:00 Labs: Abnormal Lab Results - Last 24 Hours (Table) 10/28/24 10/28/24 10/29/24 Range/Units 16:17 20:15 06:30 POC Glucose (mg/dL) 150 H 124 H 54 L (70-110) mg/dL 10/29/24 Range/Units 06:43 POC Glucose (mg/dL) 67 L (70-110) mg/dL Assessment and Plan Plan: Acute COPD exacerbation, clinically improved and the patient is ready to go home. Oxygenation is stable and the patient is currently on 3 Suboxone by nasal cannula. No significant shortness of breath. Acute on chronic hypoxemic respiratory failure, on 3 L/min nasal cannula, secondary to above Acute leukocytosis, possibly reactive to steroid Abdominal pain, nausea and constipation Hypertension Chronic ongoing nicotine dependence, currently 1/2 pack/day History of ILD, RB ILD, smoking induced Recent hospitalization for influenza/COPD exacerbation May, History of squamous cell carcinoma of the right upper lobe, status post robot- assisted right upper lobectomy January, History of persistent postoperative right-sided pneumothorax, with previous talc pleurodesis on January, History of hyperlipidemia History of multiple sclerosis History of SABRA, without CPAP at home History of gastric sleeve History of splenectomy Anxiety Plan: Clinically stable on 3 liters of oxygen by nasal cannula The patient can be discharged home on a prednisone burst taper. She will resume her home medication which includes Trelegy Ellipta 1 puff a day, albuterol nebulizer treatments 4 times a day and show completed prednisone burst taper. Educated again regarding smoking cessation NicoDerm patch in place X-ray of the abdomen is consistent with constipation, laxative of choice per medicine Cleared for discharge from a pulmonary standpoint to be followed up on outpatient basis.
--- NOTE | 2024-10-30 05:12 | PN ---
PROGRESS NOTE DATE OF SERVICE: 10/27/2024 CHIEF COMPLAINT: COPD and constipation. HISTORY OF PRESENT ILLNESS: This lady is still having some episodes of nausea and she still is not passing stool. She is passing some flatus. PHYSICAL EXAMINATION: CHEST: Fairly clear. CARDIAC: Normal. ABDOMEN: Soft and nontender. Bowel sounds are heard. IMPRESSION: 1. Chronic obstructive pulmonary disease. 2. Constipation and possible fecal impaction. 3. Carcinoma of the lung. 4. Multiple sclerosis. PLAN: Continue efforts to induce a bowel activity. She has had a Fleet enema along with MiraLAX and she is still not seeing any activity. MMODL / IJN: [id number] /
--- NOTE | 2024-10-30 05:36 | PN ---
PROGRESS NOTE DATE OF SERVICE: 10/28/2024 CHIEF COMPLAINT: Chronic constipation. HISTORY OF PRESENT ILLNESS: This lady is starting to pass some stool, but I will increase her program even further. PHYSICAL EXAMINATION: LUNGS: Breath sounds are quite clear. CARDIAC: Normal. ABDOMEN: Soft, nontender. IMPRESSION: 1. Exacerbation of chronic obstructive pulmonary disease. 2. Constipation. 3. Probable fecal impaction. PLAN: Continue with the stepped up bowel program. Once she starts to pass stool, she will be able to go home. MMODL / IJN: [id number] /
== END 2024-10-29 15:26 | disposition home or self-care (01) | DRG 190 ==
LOC: EC 19:48 → 4SSUR 20:36
PROVIDERS: ADMIT Family Medicine; ATTEND Family Medicine
DX: J44.1 Chronic obstructive pulmonary disease with (acute) exacerbation (principal); J96.21 Acute and chronic respiratory failure with hypoxia; J96.22 Acute and chronic respiratory failure with hypercapnia; B37.0 Candidal stomatitis; C95.10 Chronic leukemia of unspecified cell type not having achieved remission; J45.902 Unspecified asthma with status asthmaticus; E87.20 Acidosis, unspecified; G35 Multiple sclerosis; E03.9 Hypothyroidism, unspecified; I10 Essential (primary) hypertension; J84.112 Idiopathic pulmonary fibrosis; J84.89 Other specified interstitial pulmonary diseases; K56.41 Fecal impaction; E78.5 Hyperlipidemia, unspecified; F17.210 Nicotine dependence, cigarettes, uncomplicated; F41.9 Anxiety disorder, unspecified; G47.33 Obstructive sleep apnea (adult) (pediatric); Z85.118 Personal history of other malignant neoplasm of bronchus and lung; Z90.2 Acquired absence of lung [part of]; Z79.52 Long term (current) use of systemic steroids; Z79.890 Hormone replacement therapy; Z79.899 Other long term (current) drug therapy; Z86.73 Personal history of transient ischemic attack (TIA), and cerebral infarction without residual deficits; Z90.710 Acquired absence of both cervix and uterus; Z90.81 Acquired absence of spleen; Z98.84 Bariatric surgery status; Z99.81 Dependence on supplemental oxygen; Z82.5 Family history of asthma and other chronic lower respiratory diseases; Z82.49 Family history of ischemic heart disease and other diseases of the circulatory system
CPT/HCPCS: 36415; 71046; 74019; 80053; 83605; 83735; 83880; 84100; 84145; 84484; 85025; 85610; 85730; 87040; 87070; 87205; 93005; 94640; 94760; 96361; 96374; 96375; 99291